=== PATIENT | male | born 1955 | race Caucasian/White ===

== ENCOUNTER 2020-04-23 09:33 | Inpatient (IN) | payer MEDICARE, MEDICAID, SELFPAY ==
[2020-04-23] VITALS (10 sets, daily range): BP systolic 142–170; BP diastolic 72–99; PULSE 63–99; RESP 12–20; TEMP 36.6–37.2; O2SAT 95–100; BMI 42.4
--- NOTE | 2020-04-23 | ECG_ITS ---
Test Reason : FLU LIKE SYMPTOMS Blood Pressure : / mmHG Vent. Rate : 078 BPM Atrial Rate : 078 BPM P-R Int : 178 ms QRS Dur : 094 ms QT Int : 392 ms P-R-T Axes : 037 026 019 degrees QTc Int : 446 ms Normal sinus rhythm Normal ECG No previous ECGs available Referred By: Shanti Mora Electronically Signed By:LARRY BRAN
--- NOTE | 2020-04-23 10:33 | XR_ITS ---
EXAMINATION: XR CHEST CLINICAL INFORMATION: Fluid overload COMPARISON: Previous chest x-ray from November 2010. TECHNIQUE: 2 views of the chest were obtained. FINDINGS: The cardiac silhouette is enlarged. There is pulmonary venous redistribution. The lungs are otherwise clear. There are small bilateral pleural effusions, left greater than right. Findings are suggestive of fluid overload/mild CHF. There are degenerative changes of the spine and curvature of the mid thoracic spine to the right. IMPRESSION: Enlarged cardiac silhouette, pulmonary venous redistribution and small bilateral pleural effusions suggestive of CHF/fluid overload.
--- NOTE | 2020-04-23 10:41 | ED.GENADULT ---
HPI - General Adult General Chief complaint: Recheck/Abnormal Lab/Rx Stated complaint: FLUID BUILDUP Time Seen by Provider: 04/23/20 09:43 Source: patient, old records reviewed and other ( PCP) Mode of arrival: ambulatory History of Present Illness HPI narrative: 64-year-old male with a past medical history of diabetes, CHF sent in by PCP Dr. Tapia for 30 lb weight gain in the past 4-6 weeks, anasarca, worsening LLE edema with weeping wounds refractory to home diuresis. patient had outpatient abdominal CT showing diffuse fluid overload with multiple liver cysts. No ascites. Had recent ECHO that did WNL EF. Patient reports he is unable to move/ bend due to diffuse fluid. States LE wounds soaking through jeans. Also reports mild SOB. denies fever, chills,, chest pain, nausea /vomiting Onset (ago): week(s) Severity: severe Pain Consistency: constant Related Data Allergies Allergy/AdvReac Type Severity Reaction Status Date / Time Penicillins Allergy Unknown UNKWN Unverified 04/04/20 14:36 Review of Systems Review of Systems: patient with history of cerebral palsy. Unable to plain clear history. Most history obtained from patient's PCP Yes all other systems are reviewed and are negative Constitutional: Constitutional: Reports as per HPI, Denies chills and Denies fever(s) Eyes: Eyes: Reports as per HPI Cardiovascular: Cardiovascular: Denies chest pain, Reports edema and Reports dyspnea Respiratory: Respiratory: Denies cough and Reports dyspnea Gastrointestinal: Gastrointestinal: Reports bloating, Denies constipation, Denies diarrhea and Denies nausea Musculoskeletal: Comments: +bilateral LE edema Integumentary/Breasts: Skin/Breast: Reports sores PMFSH Past Medical History Attestation statement: The following information was validated with the patient. Medical History Diabetes 1.5, managed as type 2 Social History Social History Alcohol intake: former Smoking Status: Former smoker Smoked in Last 30 Days: No Use of substances other than those prescribed or required for medical reasons: No Advance Directives: No Advance Directives Information Provided: No Physical Exam Vital Signs and I&O and Narrative: Vital Signs and I&O: Vital Signs Temp 98.2 F 04/23/20 10:31 Pulse 74 04/23/20 12:03 Resp 20 04/23/20 12:03 BP 164/85 H 04/23/20 12:03 Pulse Ox 98 04/23/20 10:31 Intake & Output 04/22/20 04/23/20 04/23/20 18:59 06:59 18:59 Weight 137.9 kg Body Mass Index 42.4 Const: General: no acute distress Chest: Chest palpation & inspection: normal inspection of the chest Resp: Effort & Inspection: normal respiratory effort Auscultation: crackles ( bibasilar) Cardio: Heart sounds: S1 normal heart sound present and S2 normal heart sound present GI: Inspection: Yes Abdominal wall edema and Yes distended Palpation (GI): Firmness to palpation present (GI) and Tenderness to palpation present (GI) (mild ttp in lower abd) Skin: Other: open weeping wounds to bilateral lower extremities with overlying erythema. No fluctuance or induration Extrem: General: No calf tenderness and Yes pedal edema Course Course Course Narrative: CXR IMPRESSION: Enlarged cardiac silhouette, pulmonary venous redistribution and small bilateral pleural effusions suggestive of CHF/fluid overload >> 80IV Lasix ordered IV cefepime ordered for lower extremity wounds --1224-- case discussed with hospitalist for admission due to CHF Medical Decision Making MDM Narrative Medical decision making narrative: 64-year-old male with a past medical history of diabetes, CHF sent in by PCP Dr. Tapia for 30 lb weight gain in the past 4-6 weeks, anasarca, worsening LLE edema with weeping wounds refractory to home diuresis. On exam VSS, NAD, abdomen diffusely distended, LE pitting edema with weeping wounds. Concern for CHF/anasarca and early LE celluultis. Lower concern for SBO/DVT with recent CT. Low concern for ACS. R/o electrolyte abnormalities -04/16/2020 CT abdomen pelvis showing liver cysts, otherwise liver unremarkable. Intrahepatic IVC and portal veins patent however no secondary signs of Budd-Chiari. Small bilateral pleural effusions and diffuse anasarca plan: EKG, labs, CXR, admission Lab Data Result diagrams: 04/23/20 11:24 04/23/20 11:25 Labs: Lab Results 04/23/20 04/23/20 04/23/20 Range/Units 11:24 11:25 11:25 WBC 7.3 (4.8-10.8) X10*3/uL RBC 4.37 L (4.60-5.80) X10*6/uL Hgb 14.2 (14.0-18.0) g/dl Hct 41.4 L (42-52) % MCV 94.7 (80-98) fL MCH 32.5 (27.0-33.0) pg MCHC 34.3 (31.0-36.0) g/dl RDW 12.9 (11.0-16.0) % Plt Count 321 (160-400) X10*3/uL MPV 9.3 L (9.4-12.4) fL Immature Gran % (Auto) 0.4 (0.0-0.4) % Neut % (Auto) 67.7 (45-73) % Lymph % (Auto) 18.6 L (20-40) % [place] % (Auto) 7.4 (2-11) % Eos % (Auto) 5.2 H (0-4) % Baso % (Auto) 0.7 (0-2) % Neut # (Auto) 5.0 (2.0-8.3) X10*3/uL Lymph # (Auto) 1.4 (1.2-4.9) X10*3/uL [place] # (Auto) 0.5 (0.1-1.2) X10*3/uL Eos # (Auto) 0.4 (0.0-0.4) X10*3/uL Baso # (Auto) 0.1 (0.0-0.2) X10*3/uL Abs Immat Gran (auto) 0.03 (0.00-0.03) X10*3/uL Absolute Nucleated RBC 0.000 (0.0-0.012) X10*3/uL Nucleated RBC % (auto) 0.0 (0.0-0.2) /100WBC Sodium 137 (135-145) mmol/L Potassium 4.7 (3.3-5.1) mmol/l Chloride 108 (96-108) mmol/L Carbon Dioxide 23 (22-29) mmol/L Anion Gap 11 L (12-20) BUN 15 (9-16) mg/dL Creatinine 1.30 (0.5-1.4) mg/dL Estim Creat Clear Calc 81.4 Estimated GFR 56 Random Glucose 107 (60-115) mg/dL Lactic Acid (0.5-2.0) mmol/L Calcium 7.4 L (8.4-10.2) mg/dL Magnesium 2.4 (1.6-2.6) mg/dL Total Bilirubin 0.2 (0.0-1.0) mg/dL Direct Bilirubin < 0.2 (0.0-0.5) mg/dL AST 23 (5-37) U/L ALT 12 (0-40) U/L Alkaline Phosphatase 68 (39-117) U/L B-Natriuretic Peptide 42 (<100) pg/mL Total Protein 5.0 L (6.5-8.0) g/dL Albumin 1.9 L (3.5-5.0) g/dL Lipase 26 (8-78) U/L 04/23/20 Range/Units 11:38 WBC (4.8-10.8) X10*3/uL RBC (4.60-5.80) X10*6/uL Hgb (14.0-18.0) g/dl Hct (42-52) % MCV (80-98) fL MCH (27.0-33.0) pg MCHC (31.0-36.0) g/dl RDW (11.0-16.0) % Plt Count (160-400) X10*3/uL MPV (9.4-12.4) fL Immature Gran % (Auto) (0.0-0.4) % Neut % (Auto) (45-73) % Lymph % (Auto) (20-40) % [place] % (Auto) (2-11) % Eos % (Auto) (0-4) % Baso % (Auto) (0-2) % Neut # (Auto) (2.0-8.3) X10*3/uL Lymph # (Auto) (1.2-4.9) X10*3/uL [place] # (Auto) (0.1-1.2) X10*3/uL Eos # (Auto) (0.0-0.4) X10*3/uL Baso # (Auto) (0.0-0.2) X10*3/uL Abs Immat Gran (auto) (0.00-0.03) X10*3/uL Absolute Nucleated RBC (0.0-0.012) X10*3/uL Nucleated RBC % (auto) (0.0-0.2) /100WBC Sodium (135-145) mmol/L Potassium (3.3-5.1) mmol/l Chloride (96-108) mmol/L Carbon Dioxide (22-29) mmol/L Anion Gap (12-20) BUN (9-16) mg/dL Creatinine (0.5-1.4) mg/dL Estim Creat Clear Calc Estimated GFR Random Glucose (60-115) mg/dL Lactic Acid 0.8 (0.5-2.0) mmol/L Calcium (8.4-10.2) mg/dL Magnesium (1.6-2.6) mg/dL Total Bilirubin (0.0-1.0) mg/dL Direct Bilirubin (0.0-0.5) mg/dL AST (5-37) U/L ALT (0-40) U/L Alkaline Phosphatase (39-117) U/L B-Natriuretic Peptide (<100) pg/mL Total Protein (6.5-8.0) g/dL Albumin (3.5-5.0) g/dL Lipase (8-78) U/L
[2020-04-23 11:31] LABS: MANUAL DIFF FLAG NO
[2020-04-23 11:34] LABS: Basophils Absolute Auto 0.1 X10*3/uL (0.0-0.2); Basophils Percent Auto 0.7 % (0-2); Eosinophils Absolute Auto 0.4 X10*3/uL (0.0-0.4); Eosinophils Percent Auto 5.2 % (0-4); Hematocrit 41.4 % (42-52); Hemoglobin 14.2 g/dl (14.0-18.0); Imm Gran Abs Auto 0.03 X10*3/uL (0.00-0.03); Imm Gran Pct Auto 0.4 % (0.0-0.4); Lymphocytes Absolute Auto 1.4 X10*3/uL (1.2-4.9); Lymphocytes Percent Auto 18.6 % (20-40); Mean Corpuscular HGB Conc 34.3 g/dl (31.0-36.0); Mean Corpuscular Hemoglobin 32.5 pg (27.0-33.0); Mean Corpuscular Volume 94.7 fL (80-98); Mean Platelet Volume 9.3 fL (9.4-12.4); Monocytes Absolute Auto 0.5 X10*3/uL (0.1-1.2); Monocytes Percent Auto 7.4 % (2-11); Neutrophils Percent Auto 67.7 % (45-73); Platelet Count 321 X10*3/uL (160-400); Red Blood Count 4.37 X10*6/uL (4.60-5.80); Red Cell Distribution Width 12.9 % (11.0-16.0); White Blood Count 7.3 X10*3/uL (4.8-10.8)
--- NOTE | 2020-04-23 12:04 | PC.NURSE ---
AWAITING LASIX FROM PHARMACY PT EDUCATED ON ONGOING CARE PLAN
[2020-04-23 12:05] LABS: B Type Natriuretic Peptide 42 pg/mL (<100)
[2020-04-23 12:16] LABS: Lactic Acid 0.8 mmol/L (0.5-2.0)
[2020-04-23 12:22] LABS: Alanine Aminotransferase 12 U/L (0-40); Albumin Level 1.9 g/dL (3.5-5.0); Alkaline Phosphatase 68 U/L (39-117); Anion Gap 11 (12-20); Aspartate Amino Transferase 23 U/L (5-37); Bilirubin Direct < 0.2 mg/dL (0.0-0.5); Bilirubin Total 0.2 mg/dL (0.0-1.0); Blood Urea Nitrogen 15 mg/dL (9-16); Calcium 7.4 mg/dL (8.4-10.2); Carbon Dioxide 23 mmol/L (22-29); Chloride 108 mmol/L (96-108); Creatinine Clr Calc Pharmacy 81.4; Estimated Glomerular Filt Rate 56; Glucose Random 107 mg/dL (60-115); Lipase 26 U/L (8-78); Magnesium 2.4 mg/dL (1.6-2.6); Potassium 4.7 mmol/l (3.3-5.1); Sodium 137 mmol/L (135-145)
[2020-04-23] MEDS: Furosemide 100 MG/10 ML VIAL 80 MG IVPUSH (13:00)
--- NOTE | 2020-04-23 13:26 | PC.NURSE ---
PT VOIDED 500ML CLEAR URINE. AFTER BECAME DIAPHORETIC, PALE. FELT WEAK, LIKE PASSING OUT. MD AWARE
[2020-04-23 13:35] LABS: Glucose, Whole Blood 99 mg/dL (60-115)
--- NOTE | 2020-04-23 13:55 | PC.NURSE ---
VOIDED ADDITIONAL 225ML'S. LUNCH PROVIDED FOR PT. AWAITING ADMIT
--- NOTE | 2020-04-23 14:23 | PC.NURSE ---
IV INFILTRATED AWAITING NEW PLACEMENT FOR ANTIOBIOTICS
[2020-04-23] MEDS: cefEPime HCl 2 GM in 0.9 % Sodium Chloride 50 ML IV (14:51)
--- NOTE | 2020-04-23 16:00 | PM.IMHP ---
History of Present Illness Date of Service: 04/23/20 Chief Complaint: Weight gain 64-year-old man presenting to the ER with complaints of increased shortness of breath. Patient lives alone. He went to see his primary care provider today who ended up bringing him to the ER. Apparently patient had gained approximately 20-30 lb over the last month. He is on Lasix at home of like seems to have continued to accumulate fluid. He has some tense edema to both his legs and abdomen. He denied any shortness of breath or dyspnea or chest pain for that matter. He does have some dermatitis to both of his legs likely from all the swelling and seems to be weeping as well. In the ER, his vital signs were stable. He was not noted to be hypoxic at all. BNP was low however this falsely negative due to history of obesity. In the ER, he was given a dose of IV Lasix, cefepime. He will be admitted for further management treatment of acute congestive heart failure. Review of Systems Review of Systems: Denies any recent fever chills or decrease in appetite respiratory denies any shortness of breath coverage production cardiovascular is adjustment of any PND or edema gastrointestinal denies any dysphagia abdominal pain nausea vomiting or diarrhea genitourinary denies any dysuria frequency or hematuria musculoskeletal denies any joint pain or swelling neuropsych denies any weakness or seizures all other systems reviewed are negative [facility] Medical History (Updated 04/23/20 @ 16:14 by Ayanna Galloway NP) CHF (congestive heart failure), NYHA class I Diabetes 1.5, managed as type 2 Diverticulosis Hiatal hernia History of small bowel obstruction Hyperlipidemia Hypertension Hypothyroidism Pertinent family history: Denies cardiac disease Social History Alcohol intake: former Smoking Status: Former smoker Smoked in Last 30 Days: No Use of substances other than those prescribed or required for medical reasons: No Advance Directives: No Advance Directives Information Provided: No Meds Allergies Allergy/AdvReac Type Severity Reaction Status Date / Time Penicillins Allergy Unknown UNKWN Verified 04/23/20 13:49 Physical Exam Vital Signs and Narrative: Vital Signs: Last Vital Signs Temp 98.2 F 04/23/20 10:31 Pulse 86 04/23/20 14:28 Resp 16 04/23/20 14:28 BP 159/76 H 04/23/20 14:28 Pulse Ox 98 04/23/20 14:28 Body Mass Index 42.4 Appearing in no acute distress head is normocephalic atraumatic eyes pupils are PERRLA sclera is anicteric mouth throat mucous membranes are intact and moist neck is supple no lymphadenopathy, no JVD noted lung sounds Diminshed heart regular rate rhythm, clear S1, S2, tense edema to legs and abdomen positive bowel sounds, abdomen firm neuro patient is alert x3, no focal deficits Results Labs Labs: Laboratory Tests 04/23/20 04/23/20 04/23/20 11:24 11:25 11:25 WBC 7.3 RBC 4.37 L Hgb 14.2 Hct 41.4 L MCV 94.7 MCH 32.5 MCHC 34.3 RDW 12.9 Plt Count 321 MPV 9.3 L Immature Gran % (Auto) 0.4 Neut % (Auto) 67.7 Lymph % (Auto) 18.6 L [place] % (Auto) 7.4 Eos % (Auto) 5.2 H Baso % (Auto) 0.7 Neut # (Auto) 5.0 Lymph # (Auto) 1.4 [place] # (Auto) 0.5 Eos # (Auto) 0.4 Baso # (Auto) 0.1 Abs Immat Gran (auto) 0.03 Absolute Nucleated RBC 0.000 Nucleated RBC % (auto) 0.0 Sodium 137 Potassium 4.7 Chloride 108 Carbon Dioxide 23 Anion Gap 11 L BUN 15 Creatinine 1.30 Estim Creat Clear Calc 81.4 Estimated GFR 56 POC Glucose Random Glucose 107 Lactic Acid Calcium 7.4 L Magnesium 2.4 Total Bilirubin 0.2 Direct Bilirubin < 0.2 AST 23 ALT 12 Alkaline Phosphatase 68 B-Natriuretic Peptide 42 Total Protein 5.0 L Albumin 1.9 L Lipase 26 04/23/20 04/23/20 11:38 13:31 WBC RBC Hgb Hct MCV MCH MCHC RDW Plt Count MPV Immature Gran % (Auto) Neut % (Auto) Lymph % (Auto) [place] % (Auto) Eos % (Auto) Baso % (Auto) Neut # (Auto) Lymph # (Auto) [place] # (Auto) Eos # (Auto) Baso # (Auto) Abs Immat Gran (auto) Absolute Nucleated RBC Nucleated RBC % (auto) Sodium Potassium Chloride Carbon Dioxide Anion Gap BUN Creatinine Estim Creat Clear Calc Estimated GFR POC Glucose 99 Random Glucose Lactic Acid 0.8 Calcium Magnesium Total Bilirubin Direct Bilirubin AST ALT Alkaline Phosphatase B-Natriuretic Peptide Total Protein Albumin Lipase Assessment and Plan (1) CHF (congestive heart failure), NYHA class I: Status: Acute (2) Hypothyroidism: Status: Acute (3) Diabetes 1.5, managed as type 2: Status: Acute (4) Hypertension: Status: Acute (5) Hyperlipidemia: Status: Acute 64-year-old man admitted with acute congestive heart failure with tense edema to both of his legs and abdomen. Acute congestive heart failure. Last echocardiogram in February of 2020 with EF of 60-65%. Patient is on oral Lasix at home and reports compliance. For now will use IV Lasix, Cardiology to follow, will monitor on telemetry, monitor daily weights and intake and output. Hypertension. Stable blood pressure. Continue lisinopril. Follow blood pressures closely avoid hypotension. Two Diabetes mellitus. Sliding scale, ADA diet, hold glipizide, Januvia and metformin due to low blood sugars. Hyperlipidemia. Continue statin. Hypothyroidism. Continue levothyroxine DVT prophylaxis with Lovenox. Discussed with Dr. Leach Full code
[2020-04-23 16:02] LABS: Glucose Urine UA 100 MG/DL (NEG); Leukocyte Esterase Urine NEG (NEG); Nitrite Urine NEG (NEG); PH 6.5 (5.0-8.0); Urine Blood 2+ (NEG); Urine Ketones NEG (NEG); Urine Protein 3+ MG/DL (NEG-TRACE)
[2020-04-23 16:04] LABS: Appearance Urine CLEAR; Color Urine YELLOW
--- NOTE | 2020-04-23 16:13 | PC.NURSE ---
PT AMBULATES WITH STEADY GAIT TO THE BATHROOM WITHOUT DIFFICULTY NO SOB NO VAGAL RESPONSE AWAITING ADMISSION TRANFER
[2020-04-23 16:18] LABS: WBC Urine 0 /HPF (0-4)
[2020-04-23 16:19] LABS: Bacteria Urine 1+ /LPF
--- NOTE | 2020-04-23 18:55 | PM.EVENT ---
Event Note Event Note: Admission note patient was seen and evaluated with Ayanna Galloway NP. I agree with her note, assessment and plan with the following. In summary, a 64 years old male with PMH of CHF, diabetes, HTN and hypothyroidism among others who presented to the hospitalWith shortness of breath swelling in his legs. The patient is supposed to be on Lasix 20 mg daily. Previous echo did not show any dysfunction. BNP normal at this presentation. CXR concerning for fluid overload. CHF exacerbation to start IV Lasix To get cardiology evaluation the morning Monitor intake and output Rest of evaluations per [employer] note.
--- NOTE | 2020-04-23 18:56 | PC.NURSE ---
DINNER TRAY GIVEN
[2020-04-24] VITALS (10 sets, daily range): BP systolic 138–170; BP diastolic 56–99; PULSE 71–82; RESP 17–20; TEMP 36.1–37.1; O2SAT 95–98; BMI 42.4
[2020-04-24 06:37] LABS: MANUAL DIFF FLAG NO
[2020-04-24 06:46] LABS: Basophils Absolute Auto 0.1 X10*3/uL (0.0-0.2); Basophils Percent Auto 0.9 % (0-2); Eosinophils Absolute Auto 0.4 X10*3/uL (0.0-0.4); Eosinophils Percent Auto 7.6 % (0-4); Hematocrit 37.7 % (42-52); Hemoglobin 12.8 g/dl (14.0-18.0); Imm Gran Abs Auto 0.03 X10*3/uL (0.00-0.03); Imm Gran Pct Auto 0.6 % (0.0-0.4); Lymphocytes Absolute Auto 1.3 X10*3/uL (1.2-4.9); Lymphocytes Percent Auto 24.1 % (20-40); Mean Corpuscular Hemoglobin 32.2 pg (27.0-33.0); Mean Platelet Volume 9.6 fL (9.4-12.4); Monocytes Absolute Auto 0.6 X10*3/uL (0.1-1.2); Monocytes Percent Auto 10.6 % (2-11); Neutrophils Percent Auto 56.2 % (45-73); Platelet Count 316 X10*3/uL (160-400); Red Blood Count 3.97 X10*6/uL (4.60-5.80); Red Cell Distribution Width 12.9 % (11.0-16.0); White Blood Count 5.4 X10*3/uL (4.8-10.8)
[2020-04-24 07:20] LABS: Alanine Aminotransferase 9 U/L (0-40); Albumin Level 1.7 g/dL (3.5-5.0); Alkaline Phosphatase 58 U/L (39-117); Anion Gap 10 (12-20); Aspartate Amino Transferase 14 U/L (5-37); Bilirubin Direct < 0.2 mg/dL (0.0-0.5); Bilirubin Total 0.2 mg/dL (0.0-1.0); Blood Urea Nitrogen 17 mg/dL (9-16); Calcium 7.3 mg/dL (8.4-10.2); Carbon Dioxide 22 mmol/L (22-29); Chloride 110 mmol/L (96-108); Creatinine Clr Calc Pharmacy 83.3; Estimated Glomerular Filt Rate 57; Glucose Random 121 mg/dL (60-115); Potassium 4.1 mmol/l (3.3-5.1); Sodium 138 mmol/L (135-145); Total Protein 4.1 g/dL (6.5-8.0)
[2020-04-24 07:21] LABS: B Type Natriuretic Peptide 43 pg/mL (<100)
[2020-04-24] MEDS: Furosemide 40 MG/4 ML VIAL IVPUSH ×2 (08:50→21:11)
[2020-04-24] MEDS: Levothyroxine Sodium 50 MCG TABLET PO (09:05)
[2020-04-24] MEDS: lisinopriL 2.5 MG TABLET PO (09:05)
[2020-04-24 09:40] LABS: Thyroid Stimulating Hormone 4.14 mIU/mL (0.32-4.0)
--- NOTE | 2020-04-24 11:08 | MHC.CM.PN ---
CM met with patient at the bedside who reports he is independent and lives alone. Patient does not have a HCP and declines filling one out today. Discussed discharge plan, home no services. patient will need assistance with transportation. CM will continue to follow patient for discharge needs.
[2020-04-24 11:37] LABS: Glucose, Whole Blood 147 mg/dL (60-115)
--- NOTE | 2020-04-24 11:50 | PM.CNCAR ---
History of Present Illness History of Present Illness Date of Consult: April 24, 2020 Requesting physician: Ileana Leach Consult reason: congestive heart failure Chief complaint: FLUID BUILDUP Narrative: This is a cardiology consultation regarding shortness of breath and leg swelling. Patient denies any history of coronary disease, myocardial infarction or any other cardiac issues. He has a history of diabetes mellitus, hypertension, dyslipidemia. He states that he has gained about 20-30 lb over the last few weeks. He has on some Lasix at home. he denies any significant shortness of breath or anginal-type chest pains or any other cardiac symptoms. No palpitations, dizzy spells or syncopal episode. He was admitted to the hospital for further management of suspected congestive heart failure. Review of Systems Review of Systems: Cardiac positive for leg swelling. No angina or shortness of breath or palpitations or dizzy spells or syncopal episodes. Remainder of the 10 system review is negative. [facility] Past Medical History Medical History CHF (congestive heart failure), NYHA class I Diabetes 1.5, managed as type 2 Diverticulosis Hiatal hernia History of small bowel obstruction Hyperlipidemia Hypertension Hypothyroidism Family History Pertinent family history: No significant family history relevant to the current admission. Social History Social History Household Members: None Housing: Apartment Do you presently have visiting nurse or other home services: No Alcohol intake: former Smoking Status: Former smoker Smoked in Last 30 Days: No Use of substances other than those prescribed or required for medical reasons: No Currently Displaying Signs/Symptoms of Drug Intoxication Withdrawal: No Have you been hit, kicked, punched, or otherwise hurt by someone within the past year? If so, by whom?: No Do you feel safe in your current relationship?: No Is there a partner from a previous relationship who is making you feel unsafe now?: No Are you made to feel afraid or neglected: No Advance Directives: No Advance Directives Information Provided: No Do you have thoughts of harming others: None Do you have a plan to hurt others: No Plan Recently lost weight without trying: No service: No Current occupational status: disabled Meds Allergies Allergy/AdvReac Type Severity Reaction Status Date / Time Penicillins Allergy Unknown UNKWN Verified 04/23/20 13:49 Home Medications Medication Instructions Recorded Confirmed Type furosemide 20 mg PO DAILY 04/23/20 04/23/20 History glipizide 10 mg PO DAILY 04/23/20 04/23/20 History levothyroxine 50 mcg PO DAILY 04/23/20 04/23/20 History lisinopril 2.5 mg PO DAILY 04/23/20 04/23/20 History metformin 1,000 mg PO BID 04/23/20 04/23/20 History simvastatin 40 mg PO BEDTIME 04/23/20 04/23/20 History sitagliptin [Januvia] 100 mg PO DAILY 04/23/20 04/23/20 History Physical Exam Vital Signs and I&O and Narrative: Vital Signs and I&O: Vital Signs Temp 97 F 04/24/20 11:04 Pulse 79 04/24/20 11:04 Resp 20 04/24/20 11:04 BP 170/90 H 04/24/20 11:04 Pulse Ox 98 04/24/20 11:04 Comfortable, no distress No pallor, icterus or cyanosis HEENT -unremarkable JVD- normal Cardiac- normal heart sounds, no murmurs, gallops or rubs, normal PMI Respiratory-normal breath sounds bilaterally, no crackles, no wheeze Abdomen- soft, nontender Neuro- alert and oriented Lower extremities- 2+ edema, warm well perfused Results Labs and Meds Result diagrams: 04/24/20 05:29 04/24/20 05:29 Lab results: Laboratory Results - last 24 hr 04/23/20 04/23/20 04/23/20 11:25 11:25 11:38 WBC RBC Hgb Hct MCV MCH MCHC RDW Plt Count MPV Immature Gran % (Auto) Neut % (Auto) Lymph % (Auto) [place] % (Auto) Eos % (Auto) Baso % (Auto) Neut # (Auto) Lymph # (Auto) [place] # (Auto) Eos # (Auto) Baso # (Auto) Abs Immat Gran (auto) Absolute Nucleated RBC Nucleated RBC % (auto) Sodium 137 Potassium 4.7 Chloride 108 Carbon Dioxide 23 Anion Gap 11 L BUN 15 Creatinine 1.30 Estim Creat Clear Calc 81.4 Estimated GFR 56 POC Glucose Random Glucose 107 Lactic Acid 0.8 Calcium 7.4 L Magnesium 2.4 Total Bilirubin 0.2 Direct Bilirubin < 0.2 AST 23 ALT 12 Alkaline Phosphatase 68 B-Natriuretic Peptide 42 Total Protein 5.0 L Albumin 1.9 L Lipase 26 TSH Urine Color Urine Appearance Urine pH Ur Specific [place] Urine Protein Urine Glucose (UA) Urine Ketones Urine Blood Urine Nitrite Ur Leukocyte Esterase Urine RBC Urine WBC Ur Squamous Epith Cells Urine Bacteria 04/23/20 04/23/20 04/24/20 13:31 15:56 05:29 WBC 5.4 RBC 3.97 L Hgb 12.8 L Hct 37.7 L MCV 95.0 MCH 32.2 MCHC 34.0 RDW 12.9 Plt Count 316 MPV 9.6 Immature Gran % (Auto) 0.6 H Neut % (Auto) 56.2 Lymph % (Auto) 24.1 [place] % (Auto) 10.6 Eos % (Auto) 7.6 H Baso % (Auto) 0.9 Neut # (Auto) 3.0 Lymph # (Auto) 1.3 [place] # (Auto) 0.6 Eos # (Auto) 0.4 Baso # (Auto) 0.1 Abs Immat Gran (auto) 0.03 Absolute Nucleated RBC 0.000 Nucleated RBC % (auto) 0.0 Sodium Potassium Chloride Carbon Dioxide Anion Gap BUN Creatinine Estim Creat Clear Calc Estimated GFR POC Glucose 99 Random Glucose Lactic Acid Calcium Magnesium Total Bilirubin Direct Bilirubin AST ALT Alkaline Phosphatase B-Natriuretic Peptide Total Protein Albumin Lipase TSH Urine Color YELLOW Urine Appearance CLEAR Urine pH 6.5 Ur Specific [place] 1.020 Urine Protein 3+ H Urine Glucose (UA) 100 H Urine Ketones NEG Urine Blood 2+ H Urine Nitrite NEG Ur Leukocyte Esterase NEG Urine RBC 1-4 Urine WBC 0 Ur Squamous Epith Cells NONE Urine Bacteria 1+ 04/24/20 04/24/20 04/24/20 05:29 05:57 11:31 WBC RBC Hgb Hct MCV MCH MCHC RDW Plt Count MPV Immature Gran % (Auto) Neut % (Auto) Lymph % (Auto) [place] % (Auto) Eos % (Auto) Baso % (Auto) Neut # (Auto) Lymph # (Auto) [place] # (Auto) Eos # (Auto) Baso # (Auto) Abs Immat Gran (auto) Absolute Nucleated RBC Nucleated RBC % (auto) Sodium 138 Potassium 4.1 Chloride 110 H Carbon Dioxide 22 Anion Gap 10 L BUN 17 H Creatinine 1.27 Estim Creat Clear Calc 83.3 Estimated GFR 57 POC Glucose 147 H Random Glucose 121 H Lactic Acid Calcium 7.3 L Magnesium Total Bilirubin 0.2 Direct Bilirubin < 0.2 AST 14 ALT 9 Alkaline Phosphatase 58 B-Natriuretic Peptide 43 Total Protein 4.1 L Albumin 1.7 L Lipase TSH 4.14 H Urine Color Urine Appearance Urine pH Ur Specific [place] Urine Protein Urine Glucose (UA) Urine Ketones Urine Blood Urine Nitrite Ur Leukocyte Esterase Urine RBC Urine WBC Ur Squamous Epith Cells Urine Bacteria Cardiology Testing Echo: report reviewed EKG Interpretation EKG Comments: EKG reviewed and shows normal sinus rhythm without any significant abnormalities like prior infarction or current ischemia. Assessment and Plan (1) Leg edema: Status: Acute (2) Essential hypertension: Status: Acute (3) Diabetes 1.5, managed as type 2: Status: Acute in the last echocardiogram from February, LVEF was normal and there were no significant valvular pathologies to explain this degree of fluid overload. RV function was also thought to be normal and there was no pulmonary hypertension. Cardiac BNPs within normal limits. However there is evidence of pulmonary congestion on chest x-ray. For now we can gently diurese him. He does have proteinuria as well as evidence of low albumin and I am not sure how much that contributes to the edema. We can repeat limited echocardiogram to reassess for any new findings. Otherwise, based on his risk factors, he will need a stress test at some point.
--- NOTE | 2020-04-24 14:37 | HO.PM.IMPN ---
Subjective Subjective Date of Service: 04/24/20 Interval History: Seen and evaluated this morning Feels comfortable, denies any fever, chills, shortness of breath Edema has improved significantly since last night Concern about bilateral lower extremity wounds No reported other overnight events Review of Systems Review of Systems: Yes all other systems are reviewed and are negative Cardiovascular Cardiovascular: Reports leg edema and Reports dyspnea on exertion Respiratory Respiratory: Reports no additional respiratory complaints and Reports dyspnea on exertion Gastrointestinal Gastrointestinal: Reports no additional gastrointestinal complaints Physical Exam Vital Signs and I&O and Narrative: Vital Signs and I&O: Vital Signs Temp 97 F 04/24/20 11:04 Pulse 79 04/24/20 11:04 Resp 20 04/24/20 11:04 BP 170/90 H 04/24/20 11:04 Pulse Ox 98 04/24/20 11:04 Intake & Output 04/23/20 04/24/20 04/24/20 18:59 06:59 18:59 Intake Total 50 / 390 340 / 390 1040 / 1040 Output Total 700 / 1050 350 / 1050 1000 / 1000 Balance -650 / -660 -10 / -660 40 / 40 Urine Output (Aver age ml/kg/hr) 0.42 0.21 0.60 Weight 137.9 kg Intake: Intake, Oral Tato unt 340 / 340 720 / 720 Intake, Oral Sup plement Amount 320 / 320 Intake, IV Amoun t 50 / 50 cefEPime HCl 2 gm In 0.9 % 50 / 50 Sodium Chlorid e 50 ml @ 100 mls /hr IV ONCE ON E Rx#:[id number] Output: Output, Urine Am ount 700 / 1050 350 / 1050 1000 / 1000 Other: Breakfast % Eate n 100% Lunch % Eaten 100% Urine Bathroom Body Mass Index 42.4 Const: General: cooperative and comfortable Orientation/consciousness: oriented to person and oriented to place Neck: Neck: Yes normal visual inspection and Yes full ROM Resp: Other: bilateral air entry Fair, a self crackles bilaterally. Effort & Inspection: normal respiratory effort Cardio: Jugular venous distension: no JVD Heart sounds: S1 normal heart sound present and S2 normal heart sound present GI: Inspection: Yes normal to inspection Percussion: Yes normal to percussion Skin: Other: Bilateral lower extremity below ankle chronic low wounds. No drainage noted. Neuro: General: oriented to person and oriented to place Extrem: General: Yes normal to inspection and Yes full ROM Objective Data Current Medications Generic Name Dose Route Start Last Admin Trade Name Renuka PRN Reason Stop Dose Admin Furosemide 40 mg 04/24/20 09:00 04/24/20 08:50 Furosemide 40 Mg/4 Ml Vial IVPUSH 40 mg BID@0900,1800 [facility] Administration Protocol Insulin Human Lispro 0 unit 04/24/20 11:30 04/24/20 12:18 Insulin Lispro 100 Unit/Ml 3 Ml Vial SUBCUT Not Given QIDACHS [facility] Protocol Levothyroxine Sodium 50 mcg 04/24/20 09:00 04/24/20 09:05 Levothyroxine Sodium 50 Mcg Tablet PO 50 mcg DAILY [facility] Administration Lisinopril 2.5 mg 04/24/20 09:00 04/24/20 09:05 Lisinopril 2.5 Mg Tablet PO 2.5 mg DAILY [facility] Administration Protocol Pharmacy Consult 1 each 04/23/20 19:06 Consult Rx Perform Med Rec MISCELLANE ONCE PRN Consult order Sitagliptin Phosphate 100 mg 04/24/20 09:00 04/24/20 09:06 Sitagliptin Phosphate 100 Mg Tablet PO Not Given DAILY [facility] Labs CBC & Chem 7: 04/24/20 05:29 04/24/20 05:29 Labs: Laboratory Results - last 24 hr 04/23/20 04/24/20 04/24/20 15:56 05:29 05:29 MCV 95.0 MCH 32.2 MCHC 34.0 RDW 12.9 Plt Count 316 MPV 9.6 Immature Gran % (Auto) 0.6 H Neut % (Auto) 56.2 Lymph % (Auto) 24.1 [place] % (Auto) 10.6 Eos % (Auto) 7.6 H Baso % (Auto) 0.9 Neut # (Auto) 3.0 Lymph # (Auto) 1.3 [place] # (Auto) 0.6 Eos # (Auto) 0.4 Baso # (Auto) 0.1 Abs Immat Gran (auto) 0.03 Absolute Nucleated RBC 0.000 Nucleated RBC % (auto) 0.0 Anion Gap 10 L Estim Creat Clear Calc 83.3 Estimated GFR 57 POC Glucose Random Glucose 121 H Calcium 7.3 L Total Bilirubin 0.2 Direct Bilirubin < 0.2 AST 14 ALT 9 Alkaline Phosphatase 58 B-Natriuretic Peptide Total Protein 4.1 L Albumin 1.7 L TSH 4.14 H Urine Color YELLOW Urine Appearance CLEAR Urine pH 6.5 Ur Specific [place] 1.020 Urine Protein 3+ H Urine Glucose (UA) 100 H Urine Ketones NEG Urine Blood 2+ H Urine Nitrite NEG Ur Leukocyte Esterase NEG Urine RBC 1-4 Urine WBC 0 Ur Squamous Epith Cells NONE Urine Bacteria 1+ 04/24/20 04/24/20 05:57 11:31 MCV MCH MCHC RDW Plt Count MPV Immature Gran % (Auto) Neut % (Auto) Lymph % (Auto) [place] % (Auto) Eos % (Auto) Baso % (Auto) Neut # (Auto) Lymph # (Auto) [place] # (Auto) Eos # (Auto) Baso # (Auto) Abs Immat Gran (auto) Absolute Nucleated RBC Nucleated RBC % (auto) Anion Gap Estim Creat Clear Calc Estimated GFR POC Glucose 147 H Random Glucose Calcium Total Bilirubin Direct Bilirubin AST ALT Alkaline Phosphatase B-Natriuretic Peptide 43 Total Protein Albumin TSH Urine Color Urine Appearance Urine pH Ur Specific [place] Urine Protein Urine Glucose (UA) Urine Ketones Urine Blood Urine Nitrite Ur Leukocyte Esterase Urine RBC Urine WBC Ur Squamous Epith Cells Urine Bacteria Microbiology Microbiology Results: Microbiology 04/23/20 11:32 Blood - Venous Blood Culture - Preliminary No growth after 24 hours. 04/23/20 11:25 Blood - Venous Blood Culture - Preliminary No growth after 24 hours.
[2020-04-24 16:28] LABS: Glucose, Whole Blood 104 mg/dL (60-115)
[2020-04-24] MEDS: lisinopriL 20 MG TABLET PO (18:23)
[2020-04-24 20:25] LABS: Creatinine Urine 74.09 mg/dL
[2020-04-24 20:58] LABS: Glucose, Whole Blood 128 mg/dL (60-115)
[2020-04-25] VITALS (7 sets, daily range): BP systolic 128–183; BP diastolic 67–83; PULSE 70–83; RESP 18–20; TEMP 36.1–36.8; O2SAT 95–99
--- NOTE | 2020-04-25 | US_ITS ---
EXAMINATION: US VENOUS BILATERAL LOWER EXTREMITIES CLINICAL INFORMATION: Bilateral lower extremity edema and hypercoagulable state COMPARISON: None. TECHNIQUE: Doppler spectral analysis and color flow Doppler imaging was performed of both the left and the right lower extremities. Compression and augmentation maneuvers were performed. FINDINGS: The left common femoral, femoral, popliteal and visualized calf veins were normal. They demonstrate normal compressibility and color fill-in. The right common femoral, femoral, popliteal and visualized calf veins were normal. They demonstrate normal compressibility and color fill-in. Both calves are swollen. Prominent 5.3 x 1.2 x 2.7 cm lymph node in the right groin with a 4.4 x 0.9 x 2.2 cm lymph node in the left groin. IMPRESSION: No evidence for left or right lower extremity deep vein thrombosis.
[2020-04-25 06:31] LABS: MANUAL DIFF FLAG NO
[2020-04-25 06:48] LABS: Basophils Absolute Auto 0.1 X10*3/uL (0.0-0.2); Basophils Percent Auto 1.1 % (0-2); Eosinophils Absolute Auto 0.5 X10*3/uL (0.0-0.4); Eosinophils Percent Auto 8.2 % (0-4); Hematocrit 37.8 % (42-52); Hemoglobin 12.7 g/dl (14.0-18.0); Imm Gran Abs Auto 0.01 X10*3/uL (0.00-0.03); Imm Gran Pct Auto 0.2 % (0.0-0.4); Lymphocytes Absolute Auto 1.8 X10*3/uL (1.2-4.9); Mean Corpuscular HGB Conc 33.6 g/dl (31.0-36.0); Mean Corpuscular Hemoglobin 32.2 pg (27.0-33.0); Mean Corpuscular Volume 95.7 fL (80-98); Mean Platelet Volume 9.5 fL (9.4-12.4); Monocytes Absolute Auto 0.5 X10*3/uL (0.1-1.2); Monocytes Percent Auto 9.8 % (2-11); Neutrophils Absolute Auto 2.7 X10*3/uL (2.0-8.3); Neutrophils Percent Auto 48.7 % (45-73); Platelet Count 304 X10*3/uL (160-400); Red Blood Count 3.95 X10*6/uL (4.60-5.80); Red Cell Distribution Width 13.1 % (11.0-16.0); White Blood Count 5.5 X10*3/uL (4.8-10.8)
[2020-04-25 07:04] LABS: Anion Gap 9 (12-20); Blood Urea Nitrogen 15 mg/dL (9-16); Calcium 7.3 mg/dL (8.4-10.2); Carbon Dioxide 25 mmol/L (22-29); Chloride 108 mmol/L (96-108); Estimated Glomerular Filt Rate 58; Glucose Random 109 mg/dL (60-115); Potassium 4.1 mmol/l (3.3-5.1); Sodium 138 mmol/L (135-145)
[2020-04-25 07:39] LABS: Glucose, Whole Blood 107 mg/dL (60-115)
[2020-04-25] MEDS: Furosemide 40 MG/4 ML VIAL IVPUSH ×2 (07:59→17:05)
[2020-04-25] MEDS: lisinopriL 20 MG TABLET PO (08:00)
[2020-04-25] MEDS: Levothyroxine Sodium 50 MCG TABLET PO (08:00)
[2020-04-25] MEDS: SITagliptin Phosphate 100 MG TABLET PO (08:05)
--- NOTE | 2020-04-25 08:46 | P.CONGS_ITS ---
History of Present Illness Consult details Consult date: 04/25/20 Narrative: pt complaining of shortness of breath and swelling and admitted to hospital where is dx and treated for CHF and fluid overload. at the time pt noted to have legs with edema and weeping fluid. wound consult requested by hospitalist team. see med team note for further details Review of Systems Constitutional: Constitutional: Reports as per HPI Cardiovascular: Cardiovascular: Reports as per HPI Respiratory: Respiratory: Reports as per HPI Gastrointestinal: Gastrointestinal: Reports as per HPI Musculoskeletal: Musculoskeletal: Reports as per HPI Neurologic: Reports as per HPI Hematologic/Lymphatic: Hematologic/Lymphatic: Reports as per HPI PMFSH Past Medical History Medical History CHF (congestive heart failure), NYHA class I Diabetes 1.5, managed as type 2 Diverticulosis Hiatal hernia History of small bowel obstruction Hyperlipidemia Hypertension Hypothyroidism Family History Pertinent family history: No significant family history relevant to the current admission. Social History Social History Household Members: None Housing: Apartment Alcohol intake: former Smoking Status: Former smoker Advance Directives: Yes Advance Directives on File: Yes Advance Directives Date on File: 05/01/20 service: No Current occupational status: disabled Meds Allergies Allergy/AdvReac Type Severity Reaction Status Date / Time Penicillins Allergy Unknown UNKWN Verified 04/23/20 13:49 Home Medications Medication Instructions Recorded Confirmed Type Januvia 100 mg PO DAILY 04/23/20 04/23/20 History glipizide 10 mg PO DAILY 04/23/20 04/23/20 History levothyroxine 50 mcg PO DAILY 04/23/20 04/23/20 History metformin 1,000 mg PO BID 04/23/20 04/23/20 History simvastatin 40 mg PO BEDTIME 04/23/20 04/23/20 History Physical Exam Vital Signs: Vital Signs: Body Mass Index 42.4 Const: General: cooperative, comfortable and no acute distress Orientation/consciousness: oriented to person and oriented to place Skin: Other: Bilateral lower extremity swelling with 2+ pitting edema, skin shiny and tense, right anterior skin changes conistent with previous wound area and seeping soft tissue, currently no draining wounds. Neuro: General: oriented to person and oriented to place Extrem: General: Yes normal to inspection, Yes full ROM, No calf tenderness and Yes pedal edema Results Labs Result diagrams: 04/25/20 05:56 04/26/20 08:04 Labs: Urine 04/23/20 Range/Units 15:56 Urine Color YELLOW Urine Appearance CLEAR Urine pH 6.5 (5.0-8.0) Ur Specific [place] 1.020 (1.005-1.025) Urine Protein 3+ H (NEG-TRACE) MG/DL Urine Glucose (UA) 100 H (NEG) MG/DL All other labs normal. Assessment and Plan (1) Uncontrolled hypertension: Status: Resolved (2) Nephrotic syndrome: Status: Acute (3) Essential hypertension: Status: Resolved (4) Leg edema: Status: Resolved (5) Hyperlipidemia: Status: Resolved (6) CHF (congestive heart failure), NYHA class I: Status: Resolved (7) Hypothyroidism: Status: Resolved (8) Hypertension: Status: Resolved (9) Diabetes 1.5, managed as type 2: Status: Resolved Wound Care Consult - leg wounds A 64-year-old man admitted with acute congestive heart failure with tense edema to both of his legs and abdomen. wounds arre secondary to volume overload and tissue edema - plan diuresis and compression stockings. moisturizer to lower leg skin and feet at this point tubigrips to decrease edema and then get him into prescription bilateral socks/stockings can fu in wound care if open wounds present as needed pt and hospitalist understand and agree with the plan Addended note --05/08/20
[2020-04-25] MEDS: amLODIPine Besylate 5 MG TABLET PO (09:50)
--- NOTE | 2020-04-25 10:00 | CA_ITS ---
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 The visually estimated ejection fraction is between 55-60%. - Normal right ventricular cavity size and systolic function. - There is mild aortic valve stenosis. - The pulmonary artery systolic pressure is normal. Findings Procedure Information Contrast agent, definity, is being given per protocol without apparent complications. Left Ventricle Normal left ventricular cavity size. There is mildly increased left ventricular wall thickness. The left ventricular systolic function is normal. The visually estimated ejection fraction is between 55-60%. The calculated ejection fraction is 61% by biplane method. There is no evidence of regional wall motion abnormalities. Right Ventricle Normal right ventricular cavity size and systolic function. Atria The left atrium is normal in size. The right atrium is normal in size. Aortic Valve There is moderate calcification of the aortic valve. There is mild aortic valve stenosis. The peak aortic velocity is 2.71 m/s with a calculated peak gradient of 29 mmHg. The mean gradient is 15 mmHg. The aortic valve area is 1.45 cm2. There is no aortic valve regurgitation. Mitral Valve The mitral valve appears normal. There is trace mitral valve regurgitation. There is no mitral valve stenosis. Pulmonic Valve The pulmonic valve was not well visualized. There is trace pulmonic valve regurgitation. Tricuspid Valve Normal tricuspid valve structure. There is trace tricuspid valve regurgitation. The pulmonary artery systolic pressure is normal. Great Vessels The aortic annulus, sinuses of valsalva, and asc aorta are normal in size. Venous The inferior vena cava is normal in size and collapses greater than 50% with inspiration. Pericardium/Pleural There is no evidence of pericardial effusion. Prior Study Comparison No significant change compared to prior study dated: 03/12/2020. Measurements 2D Linear Measurements RVIDd: 3.29 RVIDd Index: 1.30 IVSd: 1.49 0.6-0.9/0.6-1.0 cm LVIDd: 5.45 3.9-5.3/4.2-5.9 cm LVIDd Index: 2.15 2.4-3.2/2.2-3.1 cm/m2 LVIDs: 3.68 2.0-3.6 cm LVPWd: 1.20 0.7-1.1 cm Ao Root: 3.90 2.1-3.5 cm LA Diam: 4.90 2.7-3.8/3.0-4.0 cm LAIDs Index: 1.93 1.5-2.3 cm/m2 LV Mass: 392.57 67-162/88-224 g LV Mass Index: 154.56 43-95/49-115 g/m2 LVOT Diam: 2.20 3.0+(-)1.3 cm 2D Systolic Function EF 4C: 57.40 >55% EF 2C: 64.40 >55% EF BiP: 61.00 >55% Mitral Valve MV Pk E: 0.70 MV PK A: 0.82 MV Decel Time: 197.00 E/A: 0.90 E'Lateral: 10.30 E'Medial: 6.38 E/E' Med: 10.90 E/E' Lat: 6.80 MR Alias Ghulam: 0.37 MR RAD: 0.50 Aortic Valve AoV Pk Ghulam: 2.71 AoV Mn Ghulam: 1.75 AoV VTI: 0.52 AoV Pk Grad: 29.00 Aov Mn Grad: 15.00 EDDI Cont.VTI: 1.45 LVOT LVOT Pk Ghulam: 0.99 LVOT Mn Ghulam: 0.77 LVOT VTI: 0.20 LVOT Pk Grad: 4.00 LVOT Mn Grad: 3.00 LVOT Diam: 2.20 LVOT Area: 3.80 Diastolic Function MV Pk E: 0.70 MV Pk A: 0.82 E/A: 0.90 E'Medial: 6.38 E/E' Med: 10.90 E' Laterial: 10.30 E/E' Lat: 6.80 Tricuspid Valve RA Press: 8.00 Great Vessels Aorta Ao Root-2D: 3.90 2.0-3.7 cm Ao Asc: 3.60 2.1-3.4 cm Updated in Other Vendor System with Status of Final Parveen Hooker MD electronically signed on 04/25/2020 3:38:58 PM with status of Final
--- NOTE | 2020-04-25 10:10 | P.PNCA_ITS ---
Subjective Subjective Interval history: Seen and examined. He states that he feels better. Less leg swelling. Review of Systems Review of Systems Cardiac- +ve of leg swelling; no angina, SOB, palpitations, leg swelling or syncope. Remainder of 10 system review -ve. Physical Exam Vital Signs and I&O: Selected Entries 04/25/20 07:23 Temperature 97.6 F Pulse Rate 73 Respiratory Rate 20 Blood Pressure 183/80 H Pulse Oximetry 95 Oxygen Delivery Method Room Air Comfortable, no distress No pallor, icterus or cyanosis HEENT -unremarkable JVD- normal Cardiac- normal heart sounds, no murmurs, gallops or rubs, normal PMI Respiratory-normal breath sounds bilaterally, no crackles, no wheeze Abdomen- soft, nontender Neuro- alert and oriented Lower extremities- 2+ edema, warm well perfused Progress Note: A&P Assessment and plan (1) Leg edema: Status: Acute (2) Essential hypertension: Status: Acute (3) Diabetes 1.5, managed as type 2: Status: Acute Assessment and Plan: in the last echocardiogram from February, LVEF was normal and there were no significant valvular pathologies to explain this degree of fluid overload. RV function was also thought to be normal and there was no pulmonary hypertension. Cardiac BNPs within normal limits. However there is evidence of pulmonary congestion on chest x-ray. For now we can gently diurese him. He does have proteinuria as well as evidence of low albumin and I am not sure how much that contributes to the edema. We can repeat limited echocardiogram to reassess for any new findings (if not done as inpt, can do as outpt). Otherwise, based on his risk factors, he will need a stress test at some point. Also needs nephro input. Fall Risk Details Current Medications: Current Medications Generic Name Dose Route Start Last Admin Trade Name Freq PRN Reason Stop Dose Admin Amlodipine Besylate 5 mg 04/25/20 09:00 04/25/20 09:50 Amlodipine Besylate 5 Mg Tablet PO 5 mg DAILY [facility] Administration Protocol Furosemide 40 mg 04/24/20 09:00 04/25/20 07:59 Furosemide 40 Mg/4 Ml Vial IVPUSH 40 mg BID@0900,1800 [facility] Administration Protocol Insulin Human Lispro 0 unit 04/24/20 11:30 04/25/20 08:00 Insulin Lispro 100 Unit/Ml 3 Ml Vial SUBCUT Not Given QIDACHS [facility] Protocol Levothyroxine Sodium 50 mcg 04/24/20 09:00 04/25/20 08:00 Levothyroxine Sodium 50 Mcg Tablet PO 50 mcg DAILY [facility] Administration Lisinopril 20 mg 04/24/20 15:00 04/25/20 08:00 Lisinopril 20 Mg Tablet PO 20 mg DAILY [facility] Administration Protocol Pharmacy Consult 1 each 04/23/20 19:06 Consult Rx Perform Med Rec MISCELLANE ONCE PRN Consult order Sitagliptin Phosphate 100 mg 04/24/20 09:00 04/25/20 08:05 Sitagliptin Phosphate 100 Mg Tablet PO 100 mg DAILY [facility] Administration Time Spent With Patient Time: Total time spent is greater than 50% in coordination of care (as documented) at patient's floor/unit and/or counseling patient: Time with patient: 15 - 24 minutes
[2020-04-25 12:40] LABS: Glucose, Whole Blood 119 mg/dL (60-115)
[2020-04-25] MEDS: Enoxaparin Sodium 40 MG/0.4 ML SYRINGE SUBCUT (14:09)
--- NOTE | 2020-04-25 14:31 | HO.PM.IMPN ---
Subjective Subjective Date of Service: 04/25/20 Interval History: the patient was seen and evaluated this morning Laying in bed, feels comfortable Denies any fever, chills or shortness of breath he made significant amount of urine overnight. Still has significantly swollen legs No reported other overnight events. Review of Systems Review of Systems: Yes all other systems are reviewed and are negative Constitutional Constitutional: Reports no additional constitutional complaints Cardiovascular Cardiovascular: Reports no additional cardiovascular complaints and Reports leg edema Respiratory Respiratory: Reports no additional respiratory complaints Physical Exam Vital Signs and I&O and Narrative: Vital Signs and I&O: Vital Signs Temp 97.0 F 04/25/20 11:06 Pulse 71 04/25/20 11:06 Resp 20 04/25/20 11:06 BP 157/79 H 04/25/20 11:06 Pulse Ox 97 04/25/20 11:06 Intake & Output 04/24/20 04/25/20 04/25/20 18:59 06:59 18:59 Intake Total 1040 / 1640 600 / 1640 Output Total 1000 / 3060 2060 / 3060 750 / 750 Balance 40 / -1420 -1460 / -1420 -750 / -750 Urine Output (Aver age ml/kg/hr) 0.60 1.24 0.45 Weight 137.9 kg Intake: Intake, Oral Tato unt 720 / 1320 600 / 1320 Intake, Oral Sup plement Amount 320 / 320 Output: Output, Urine Am ount 1000 / 3060 2060 / 3060 750 / 750 Other: Breakfast % Eate n 100% 100% Lunch % Eaten 100% 100% Urine Urinal Urinal Urine Color Yellow Body Mass Index 42.4 Constitutional : Alert, oriented, not in distress Neck : Normal inspection, Supple Cardiovascular : RRR, S1 S2, loss to pitting lower extremity edema Respiratory : Good bilateral air entry, bilateral basal crackles, wheezes or rhonchi Gastrointestinal: soft, lax, Normal bowel sounds, Non tender Skin : Warm/Dry, No rash Neurological : Alert & oriented x3, No focal deficit Objective Data Current Medications Generic Name Dose Route Start Last Admin Trade Name Freq PRN Reason Stop Dose Admin Amlodipine Besylate 5 mg 04/25/20 09:00 04/25/20 09:50 Amlodipine Besylate 5 Mg Tablet PO 5 mg DAILY [facility] Administration Protocol Enoxaparin Sodium 40 mg 04/25/20 14:00 04/25/20 14:09 Enoxaparin Sodium 40 Mg/0.4 Ml Syringe SUBCUT 40 mg Q24H [facility] Administration Furosemide 40 mg 04/24/20 09:00 04/25/20 07:59 Furosemide 40 Mg/4 Ml Vial IVPUSH 40 mg BID@0900,1800 [facility] Administration Protocol Insulin Human Lispro 0 unit 04/24/20 11:30 04/25/20 13:05 Insulin Lispro 100 Unit/Ml 3 Ml Vial SUBCUT Not Given QIDACHS [facility] Protocol Levothyroxine Sodium 50 mcg 04/24/20 09:00 04/25/20 08:00 Levothyroxine Sodium 50 Mcg Tablet PO 50 mcg DAILY [facility] Administration Lisinopril 20 mg 04/24/20 15:00 04/25/20 08:00 Lisinopril 20 Mg Tablet PO 20 mg DAILY [facility] Administration Protocol Pharmacy Consult 1 each 04/23/20 19:06 Consult Rx Perform Med Rec MISCELLANE ONCE PRN Consult order Sitagliptin Phosphate 100 mg 04/24/20 09:00 04/25/20 08:05 Sitagliptin Phosphate 100 Mg Tablet PO 100 mg DAILY [facility] Administration Labs CBC & Chem 7: 04/25/20 05:56 04/25/20 05:56 Labs: Laboratory Results - last 24 hr 04/24/20 04/24/20 04/24/20 16:09 19:57 20:53 MCV MCH MCHC RDW Plt Count MPV Immature Gran % (Auto) Neut % (Auto) Lymph % (Auto) [place] % (Auto) Eos % (Auto) Baso % (Auto) Lymph # (Auto) [place] # (Auto) Eos # (Auto) Baso # (Auto) Abs Immat Gran (auto) Absolute Neuts (auto) Absolute Nucleated RBC Nucleated RBC % (auto) Anion Gap Estim Creat Clear Calc Estimated GFR POC Glucose 104 128 H Random Glucose Calcium Urine Creatinine 74.09 Urine Microalbumin 7646.0 Microalb/Creat Ratio 69160.8 04/25/20 04/25/20 04/25/20 05:56 05:56 07:25 MCV 95.7 MCH 32.2 MCHC 33.6 RDW 13.1 Plt Count 304 MPV 9.5 Immature Gran % (Auto) 0.2 Neut % (Auto) 48.7 Lymph % (Auto) 32.0 [place] % (Auto) 9.8 Eos % (Auto) 8.2 H Baso % (Auto) 1.1 Lymph # (Auto) 1.8 [place] # (Auto) 0.5 Eos # (Auto) 0.5 H Baso # (Auto) 0.1 Abs Immat Gran (auto) 0.01 Absolute Neuts (auto) 2.7 Absolute Nucleated RBC 0.000 Nucleated RBC % (auto) 0.0 Anion Gap 9 L Estim Creat Clear Calc 84.0 Estimated GFR 58 POC Glucose 107 Random Glucose 109 Calcium 7.3 L Urine Creatinine Urine Microalbumin Microalb/Creat Ratio 04/25/20 12:37 MCV MCH MCHC RDW Plt Count MPV Immature Gran % (Auto) Neut % (Auto) Lymph % (Auto) [place] % (Auto) Eos % (Auto) Baso % (Auto) Lymph # (Auto) [place] # (Auto) Eos # (Auto) Baso # (Auto) Abs Immat Gran (auto) Absolute Neuts (auto) Absolute Nucleated RBC Nucleated RBC % (auto) Anion Gap Estim Creat Clear Calc Estimated GFR POC Glucose 119 H Random Glucose Calcium Urine Creatinine Urine Microalbumin Microalb/Creat Ratio Microbiology Microbiology Results: Microbiology 04/23/20 11:32 Blood - Venous Blood Culture - Preliminary No growth after 48 hours. 04/23/20 11:25 Blood - Venous Blood Culture - Preliminary No growth after 48 hours. Assessment and Plan (1) CHF (congestive heart failure), NYHA class I: Status: Acute (2) Nephrotic syndrome: Status: Acute (3) Leg edema: Status: Acute (4) Hyperlipidemia: Status: Acute (5) Uncontrolled hypertension: Status: Acute (6) Diabetes 1.5, managed as type 2: Status: Acute Assessment and Plan: A 64-year-old man admitted with acute congestive heart failure with tense edema to both of his legs and abdomen. Acute congestive heart failure. Last echocardiogram in February of 2020 with EF of 60-65%. continue IV Lasix Cardiology input appreciated, continue diuresisAnd will need stress test as outpatient will monitor on secured entrance monitor daily weights and intake and output. uncontrolled Hypertension. increase lisinopril. start amlodipine Follow blood pressures closely Nephrotic syndrome The patient has significant amount of proteinuria up to 10 g Could be secondary to hypertensive, diabetic, other etiology plan for kidney biopsy as outpatient Nephrology input appreciated, to check Doppler ultrasound to rule out DVT, patient might need anticoagulation Diabetes mellitus. Sliding scale, ADA diet, hold glipizide, Januvia and metformin Hyperlipidemia. statin. Hypothyroidism. Continue levothyroxine DVT prophylaxis Lovenox.
[2020-04-25 17:06] LABS: Glucose, Whole Blood 147 mg/dL (60-115)
--- NOTE | 2020-04-25 17:39 | PM.CNGS ---
[facility] Past Medical History Medical History CHF (congestive heart failure), NYHA class I Diabetes 1.5, managed as type 2 Diverticulosis Hiatal hernia History of small bowel obstruction Hyperlipidemia Hypertension Hypothyroidism Family History Pertinent family history: No significant family history relevant to the current admission. Social History Social History Household Members: None Housing: Apartment Do you presently have visiting nurse or other home services: No Alcohol intake: former Smoking Status: Former smoker Smoked in Last 30 Days: No Use of substances other than those prescribed or required for medical reasons: No Currently Displaying Signs/Symptoms of Drug Intoxication Withdrawal: No Have you been hit, kicked, punched, or otherwise hurt by someone within the past year? If so, by whom?: No Do you feel safe in your current relationship?: No Is there a partner from a previous relationship who is making you feel unsafe now?: No Are you made to feel afraid or neglected: No Advance Directives: No Advance Directives Information Provided: No Do you have thoughts of harming others: None Do you have a plan to hurt others: No Plan Recently lost weight without trying: No service: No Current occupational status: disabled Meds Allergies Allergy/AdvReac Type Severity Reaction Status Date / Time Penicillins Allergy Unknown UNKWN Verified 04/23/20 13:49 Home Medications Medication Instructions Recorded Confirmed Type furosemide 20 mg PO DAILY 04/23/20 04/23/20 History glipizide 10 mg PO DAILY 04/23/20 04/23/20 History levothyroxine 50 mcg PO DAILY 04/23/20 04/23/20 History lisinopril 2.5 mg PO DAILY 04/23/20 04/23/20 History metformin 1,000 mg PO BID 04/23/20 04/23/20 History simvastatin 40 mg PO BEDTIME 04/23/20 04/23/20 History sitagliptin [Januvia] 100 mg PO DAILY 04/23/20 04/23/20 History Physical Exam Vital Signs and I&O and Narrative: Vital Signs and I&O: Vital Signs Temp 98.2 F 04/25/20 15:48 Pulse 80 04/25/20 15:48 Resp 20 04/25/20 15:48 BP 128/67 04/25/20 15:48 Pulse Ox 98 04/25/20 15:48 Intake & Output 04/24/20 04/25/20 04/25/20 18:59 06:59 18:59 Intake Total 1040 / 1640 600 / 1640 Output Total 1000 / 3060 2060 / 3060 1150 / 1150 Balance 40 / -1420 -1460 / -1420 -1150 / -1150 Urine Output (Aver age ml/kg/hr) 0.60 1.24 0.69 Weight 137.9 kg Intake: Intake, Oral [place] unt 720 / 1320 600 / 1320 Intake, Oral Sup plement Amount 320 / 320 Output: Output, Urine Am ount 1000 / 3060 2060 / 3060 1150 / 1150 Other: Breakfast % Eate n 100% 100% Lunch % Eaten 100% 100% Urine Urinal Urinal Urine Color Yellow Body Mass Index 42.4 Const: General: cooperative, comfortable and no acute distress Orientation/consciousness: oriented to person and oriented to place Neck: Neck: Yes normal visual inspection and Yes full ROM Chest: Chest palpation & inspection: normal inspection of the chest Resp: Other: bilateral air entry Fair, a self crackles bilaterally. Auscultation: crackles ( bibasilar) Cardio: Heart sounds: S1 normal heart sound present and S2 normal heart sound present GI: Percussion: Yes normal to percussion Skin: Other: Bilateral lower extremity swelling with 2+ pitting edema, skin shiny and tense, right anterior skin changes conistent with previous wound area and seeping soft tissue, currently no draining wounds. Neuro: General: oriented to person and oriented to place Extrem: General: Yes normal to inspection, Yes full ROM, No calf tenderness and Yes pedal edema Results Labs Result diagrams: 04/25/20 05:56 04/25/20 05:56 Labs: Abnormal lab results 04/24/20 04/25/20 04/25/20 Range/Units 20:53 05:56 05:56 RBC 3.95 L (4.60-5.80) X10*6/uL Hgb 12.7 L (14.0-18.0) g/dl Hct 37.8 L (42-52) % Eos % (Auto) 8.2 H (0-4) % Eos # (Auto) 0.5 H (0.0-0.4) X10*3/uL Anion Gap 9 L (12-20) POC Glucose 128 H (60-115) mg/dL Calcium 7.3 L (8.4-10.2) mg/dL 04/25/20 04/25/20 Range/Units 12:37 17:03 RBC (4.60-5.80) X10*6/uL Hgb (14.0-18.0) g/dl Hct (42-52) % Eos % (Auto) (0-4) % Eos # (Auto) (0.0-0.4) X10*3/uL Anion Gap (12-20) POC Glucose 119 H 147 H (60-115) mg/dL Calcium (8.4-10.2) mg/dL Short CBC 04/25/20 Range/Units 05:56 WBC 5.5 (4.8-10.8) X10*3/uL Hgb 12.7 L (14.0-18.0) g/dl Hct 37.8 L (42-52) % Plt Count 304 (160-400) X10*3/uL BMP 04/25/20 05:56 Sodium 138 Potassium 4.1 Chloride 108 Carbon Dioxide 25 BUN 15 Creatinine 1.26 Calcium 7.3 L Urine 04/23/20 Range/Units 15:56 Urine Color YELLOW Urine Appearance CLEAR Urine pH 6.5 (5.0-8.0) Ur Specific [place] 1.020 (1.005-1.025) Urine Protein 3+ H (NEG-TRACE) MG/DL Urine Glucose (UA) 100 H (NEG) MG/DL All other labs normal. Assessment and Plan (1) CHF (congestive heart failure), NYHA class I: Status: Acute (2) Nephrotic syndrome: Status: Acute (3) Leg edema: Status: Acute (4) Hyperlipidemia: Status: Acute (5) Uncontrolled hypertension: Status: Acute (6) Diabetes 1.5, managed as type 2: Status: Acute Wound Care Consult - leg wounds A 64-year-old man admitted with acute congestive heart failure with tense edema to both of his legs and abdomen. wounds arre secondary to volume overload and tissue edema - plan diuresis and compression stockings. moisturizer to lower leg skin and feet at this point tubigrips to decrease edema and then get him into prescription bilateral socks/stockings can fu in wound care if open wounds present as needed pt and hospitalist understand and agree with the plan
--- NOTE | 2020-04-25 19:33 | PM.CNNEP ---
History of Present Illness Reason for Consult Consult date: 04/25/20 Reason for consult: swelling Chief Complaint Chief complaint: FLUID BUILDUP History of Present Illness Narrative: 64 y/o wM adm with 30 lb WT gain andincr leg swelling. No Cp/SOB. No GH/dysuria. No recent cahnge in meds which include lasix. Longstanding DM/HTN and heavy proteinuria. Repeat labs now show markedly lower alb ( 3.7 to now 1.7) and incr Uprot ( UPC 2.0 to now 10gm ) over past 6-12 months respectively Overnight diresis andfeeling better. CHF (congestive heart failure), NYHA class I Diabetes type 2 Diverticulosis Hiatal hernia History of small bowel obstruction Hyperlipidemia Hypertension Hypothyroidism CKD 2 w heavy Uprot PMFSH Past Medical History Medical History CHF (congestive heart failure), NYHA class I Diabetes 1.5, managed as type 2 Diverticulosis Hiatal hernia History of small bowel obstruction Hyperlipidemia Hypertension Hypothyroidism Family History Pertinent family history: No significant family history relevant to the current admission. Social History Social History Household Members: None Housing: Apartment Do you presently have visiting nurse or other home services: No Alcohol intake: former Smoking Status: Former smoker Smoked in Last 30 Days: No Use of substances other than those prescribed or required for medical reasons: No Currently Displaying Signs/Symptoms of Drug Intoxication Withdrawal: No Have you been hit, kicked, punched, or otherwise hurt by someone within the past year? If so, by whom?: No Do you feel safe in your current relationship?: No Is there a partner from a previous relationship who is making you feel unsafe now?: No Are you made to feel afraid or neglected: No Advance Directives: No Advance Directives Information Provided: No Do you have thoughts of harming others: None Do you have a plan to hurt others: No Plan Recently lost weight without trying: No service: No Current occupational status: disabled Meds Allergies Allergy/AdvReac Type Severity Reaction Status Date / Time Penicillins Allergy Unknown UNKWN Verified 04/23/20 13:49 Home Medications Medication Instructions Recorded Confirmed Type furosemide 20 mg PO DAILY 04/23/20 04/23/20 History glipizide 10 mg PO DAILY 04/23/20 04/23/20 History levothyroxine 50 mcg PO DAILY 04/23/20 04/23/20 History lisinopril 2.5 mg PO DAILY 04/23/20 04/23/20 History metformin 1,000 mg PO BID 04/23/20 04/23/20 History simvastatin 40 mg PO BEDTIME 04/23/20 04/23/20 History sitagliptin [Januvia] 100 mg PO DAILY 04/23/20 04/23/20 History Physical Exam Vital Signs and I&O: Vital Signs Temp 97.8 F 04/25/20 18:52 Pulse 83 04/25/20 18:52 Resp 18 04/25/20 18:52 BP 145/82 H 04/25/20 18:52 Pulse Ox 99 04/25/20 18:52 Intake & Output 04/25/20 04/25/20 04/26/20 06:59 18:59 06:59 Intake Total 600 / 1640 Output Total 2060 / 3060 1150 / 1150 Balance -1460 / -1420 -1150 / -1150 Urine Output (Average ml/kg/hr) 1.24 0.69 Intake: Intake, Oral Amount 600 / 1320 Output: Output, Urine Amount 2060 / 3060 1150 / 1150 Other: Breakfast % Eaten 100% Lunch % Eaten 100% Urine Urinal Urinal Urine Color Yellow Body Mass Index 42.4 Comfortable, no distress No pallor, icterus or cyanosis HEENT -unremarkable JVD- normal Cardiac- normal heart sounds, no murmurs, gallops or rubs, normal PMI Respiratory-normal breath sounds bilaterally, no crackles, no wheeze Abdomen- soft, nontender Neuro- alert and oriented Lower extremities- 2+ edema, warm well perfused Const General: cooperative, comfortable and no acute distress Orientation/consciousness: oriented to person and oriented to place Neck Neck: Yes normal visual inspection and Yes full ROM Chest Chest palpation & inspection: normal inspection of the chest Resp Other: bilateral air entry Fair, a self crackles bilaterally. Effort & Inspection: normal respiratory effort Auscultation: crackles ( bibasilar) Cardio Jugular venous distension: no JVD Heart sounds: S1 normal heart sound present and S2 normal heart sound present GI Inspection: Yes normal to inspection, Yes Abdominal wall edema and Yes distended Palpation (GI): Firmness to palpation present (GI) and Tenderness to palpation present (GI) (mild ttp in lower abd) Percussion: Yes normal to percussion Skin Other: Bilateral lower extremity swelling with 2+ pitting edema, skin shiny and tense, right anterior skin changes conistent with previous wound area and seeping soft tissue, currently no draining wounds. Neuro General: oriented to person and oriented to place Extrem General: Yes normal to inspection, Yes full ROM, No calf tenderness and Yes pedal edema Results Lab Results Result Diagrams: 04/25/20 05:56 04/25/20 05:56 Lab results: Chemistry 04/23/20 04/24/20 04/25/20 11:25 05:29 05:56 Sodium 137 138 138 Potassium 4.7 4.1 4.1 Carbon Dioxide 23 22 25 BUN 15 17 H 15 Creatinine 1.30 1.27 1.26 Calcium 7.4 L 7.3 L 7.3 L Hematology 04/23/20 04/24/20 04/25/20 11:24 05:29 05:56 WBC 7.3 5.4 5.5 Hgb 14.2 12.8 L 12.7 L Plt Count 321 316 304 Urinalysis 04/23/20 15:56 Urine Color YELLOW Urine Appearance CLEAR Urine pH 6.5 Ur Specific [place] 1.020 Urine Protein 3+ H Urine Glucose (UA) 100 H Urine Ketones NEG Urine Blood 2+ H Urine Nitrite NEG Ur Leukocyte Esterase NEG Urine RBC 1-4 Urine WBC 0 Ur Squamous Epith Cells NONE Urine Studies 04/24/20 19:57 Urine Creatinine 74.09 Laboratory Tests 12/28/18 03/29/19 06/28/19 00:00 12:00 10:15 Albumin Microalb/Creat Ratio 310.1 2252.4 3527.3 10/03/19 10/03/19 04/09/20 11:00 11:20 11:35 Albumin 3.7 2.0 L D Microalb/Creat Ratio 6307.6 04/24/20 04/24/20 05:29 19:57 Albumin 1.7 L Microalb/Creat Ratio 98202.8 Assessment and Plan (1) Uncontrolled hypertension: Status: Acute (2) Nephrotic syndrome: Status: Acute (3) Essential hypertension: Status: Acute (4) Leg edema: Status: Acute (5) Hyperlipidemia: Status: Acute (6) CHF (congestive heart failure), NYHA class I: Status: Acute (7) Hypothyroidism: Status: Acute (8) Hypertension: Status: Acute (9) Diabetes 1.5, managed as type 2: Status: Acute 1. Severe Nephrotic Syndrome: marked increase in UProt and dramatic decreasee in serum albumin overpast 6 months raises cncern for non-DM causes including both primary ( FSGS, MGN, Min etc..) vs secondary GN (dysproteinemiaassoc GN such as amyloid , MIDD, etc..) at risk for hyperocag state and DVT 2. TBFOL: c/w severe NSyn 3. HTN 4.DM 5. Ques sever hyperlipidemia assoc w NSyn REC: agree with agressive diuresis; sero w/u for causes of NSyn ( I ordered) and will need to consider a kidney Bx to definitive r/o non-DM causes of NSyn; check fasting lipid profile; u/s legs to r/o DVT; agree with incr SHOSHANA-I and track renal func will follow heena with med team
[2020-04-25 20:22] LABS: Glucose, Whole Blood 139 mg/dL (60-115)
--- NOTE | 2020-04-26 | US_ITS ---
EXAMINATION: ULTRASOUND-GUIDED LYMPH NODE BIOPSY CLINICAL INFORMATION: Prominent bilateral groin lymph nodes COMPARISON: Previous bilateral lower extremity venous ultrasound from yesterday TECHNIQUE: Procedure and risks and benefits including bleeding, and infection were discussed with the patient and informed consent was obtained. The right groin/proximal medial thigh was prepped and draped in the usual sterile fashion. The skin and soft tissues were anesthetized with 1% lidocaine plain. Using ultrasound guidance and a coaxial system, access to 2 adjacent prominent right groin/upper thigh lymph nodes was obtained. 4 20-gauge core biopsies were obtained. Diagnostic specimen was sent for pathology and flow cytometry studies. FINDINGS: There are 2 prominent adjacent lymph nodes in the right groin/upper medial thigh that were targeted for core biopsy. The largest lymph node measures 3.3 x 1.3 x 2.3 cm in sagittal AP and transverse dimension. Lymph nodes demonstrate normal ultrasound morphology and flow. IMPRESSION: Ultrasound-guided right groin/medial upper thigh lymph node core biopsy.
[2020-04-26 03:51] VITALS: BP 158/75; PULSE 69; RESP 18; TEMP 36.5; O2SAT 98
[2020-04-26] MEDS: Acetaminophen 325 MG TABLET 650 MG PO (05:26)
[2020-04-26 07:23] LABS: Anion Gap 10 (12-20); Blood Urea Nitrogen 16 mg/dL (9-16); Calcium 7.8 mg/dL (8.4-10.2); Carbon Dioxide 26 mmol/L (22-29); Chloride 105 mmol/L (96-108); Creatinine Clr Calc Pharmacy 83.3; Estimated Glomerular Filt Rate 57; Glucose Random 108 mg/dL (60-115); Potassium 4.3 mmol/l (3.3-5.1); Sodium 137 mmol/L (135-145)
[2020-04-26 07:44] LABS: Glucose, Whole Blood 96 mg/dL (60-115)
[2020-04-26 07:52] LABS: Cholesterol 361 mg/dL; HDL Cholesterol 43 mg/dL; LDL Cholesterol Calculated 274 mg/dl; Triglycerides 224 mg/dL
[2020-04-26 08:00] VITALS: BP 173/77; PULSE 72; RESP 18; TEMP 36.7; O2SAT 97
[2020-04-26 08:43] VITALS: BP 173/77; PULSE 72
[2020-04-26] MEDS: amLODIPine Besylate 5 MG TABLET PO (08:43)
[2020-04-26] MEDS: Levothyroxine Sodium 50 MCG TABLET PO (08:43)
[2020-04-26] MEDS: lisinopriL 40 MG TABLET PO (08:43)
[2020-04-26] MEDS: SITagliptin Phosphate 100 MG TABLET PO (08:43)
[2020-04-26] MEDS: Furosemide 40 MG/4 ML VIAL IVPUSH (08:44)
[2020-04-26 08:46] LABS: INTERNATIONAL NORM RATIO 0.9 (0.9-1.1)
[2020-04-26 09:10] LABS: Anion Gap 10 (12-20); Blood Urea Nitrogen 16 mg/dL (9-16); Calcium 7.9 mg/dL (8.4-10.2); Carbon Dioxide 26 mmol/L (22-29); Chloride 105 mmol/L (96-108); Creatinine Clr Calc Pharmacy 86.8; Estimated Glomerular Filt Rate 60; Glucose Random 114 mg/dL (60-115); Potassium 4.1 mmol/l (3.3-5.1); Sodium 137 mmol/L (135-145)
--- NOTE | 2020-04-26 10:50 | PM.PNCARD ---
Subjective Subjective Interval history: seen in follow-up regarding leg swelling. He states that he is feeling much better. Review of Systems Review of Systems Yes all other systems are reviewed and are negative Cardiovascular: Denies chest pain, Denies chest pain at rest, Reports leg edema and Denies dyspnea Respiratory: Denies dyspnea Physical Exam Vital Signs and I&O: Vital Signs Temp 98.1 F 04/26/20 08:00 Pulse 72 04/26/20 08:43 Resp 18 04/26/20 08:00 BP 173/77 H 04/26/20 08:43 Pulse Ox 97 04/26/20 08:00 Intake & Output 04/25/20 04/26/20 04/26/20 18:59 06:59 18:59 Intake Total 240 / 240 360 / 360 Output Total 1150 / 2130 980 / 2130 Balance -1150 / -1890 -740 / -1890 360 / 360 Urine Output (Average ml/kg/hr) 0.69 0.59 0.59 Intake: Intake, Oral Amount 240 / 240 360 / 360 Output: Output, Urine Amount 1150 / 2130 980 / 2130 Other: Breakfast % Eaten 100% 100% Lunch % Eaten 100% Urine Urinal Urinal Urine Color Yellow Body Mass Index 42.4 Comfortable, no distress No pallor, icterus or cyanosis HEENT -unremarkable JVD- normal Cardiac- normal heart sounds, no murmurs, gallops or rubs, normal PMI Respiratory-normal breath sounds bilaterally, no crackles, no wheeze Abdomen- soft, nontender Neuro- alert and oriented Lower extremities- 2+ edema, warm well perfused Progress Note: A&P Assessment and plan (1) Leg edema: Status: Acute (2) Essential hypertension: Status: Acute (3) Diabetes 1.5, managed as type 2: Status: Acute Assessment and Plan: Based on the echocardiogram, no clear evidence of any left or right ventricular dysfunction or pulmonary hypertension cause this degree of edema. Cardiac BNPs within normal limits. However there is evidence of pulmonary congestion on chest x-ray. For now we can gently diurese him. He does have proteinuria as well as evidence of low albumin and I am not sure how much that contributes to the edema. Otherwise, based on his risk factors, he will need a stress test at some point. Also needs nephro input. Fall Risk Details Current Medications: Current Medications Generic Name Dose Route Start Last Admin Trade Name Renuka PRN Reason Stop Dose Admin Amlodipine Besylate 5 mg 04/25/20 09:00 04/26/20 08:43 Amlodipine Besylate 5 Mg Tablet PO 5 mg DAILY ROSALIA Administration Protocol Furosemide 40 mg 04/24/20 09:00 04/26/20 08:44 Furosemide 40 Mg/4 Ml Vial IVPUSH 40 mg BID@0900,1800 ROSALIA Administration Protocol Insulin Human Lispro 0 unit 04/24/20 11:30 04/26/20 08:42 Insulin Lispro 100 Unit/Ml 3 Ml Vial SUBCUT Not Given QIDACHS [facility] Protocol Levothyroxine Sodium 50 mcg 04/24/20 09:00 04/26/20 08:43 Levothyroxine Sodium 50 Mcg Tablet PO 50 mcg DAILY ROSALIA Administration Lisinopril 40 mg 04/26/20 09:00 04/26/20 08:43 Lisinopril 40 Mg Tablet PO 40 mg DAILY ROSALIA Administration Protocol Pharmacy Consult 1 each 04/23/20 19:06 Consult Rx Perform Med Rec MISCELLANE ONCE PRN Consult order Sitagliptin Phosphate 100 mg 04/24/20 09:00 04/26/20 08:43 Sitagliptin Phosphate 100 Mg Tablet PO 100 mg DAILY ROSALIA Administration Time Spent With Patient Time: Total time spent is greater than 50% in coordination of care (as documented) at patient's floor/unit and/or counseling patient: Time with patient: 15 - 24 minutes
--- NOTE | 2020-04-26 10:56 | PM.EVENT ---
Event Note Event Note: Right Groin Lymph node core biopsy using coaxial system. 4 20 guage core biopsies obtained .
[2020-04-26 11:30] LABS: Glucose, Whole Blood 127 mg/dL (60-115)
[2020-04-26 11:37] VITALS: BP 161/84; PULSE 82; RESP 20; TEMP 37; O2SAT 99
--- NOTE | 2020-04-26 11:57 | PM.PNNEP ---
Subjective Subjective Interval history: seen in follow-up regarding leg swelling. He states that he is feeling much better. Physical Exam Vital Signs and I&O and Narrative: Vital Signs and I&O: Vital Signs Temp 98.6 F 04/26/20 11:37 Pulse 82 04/26/20 11:37 Resp 20 04/26/20 11:37 BP 161/84 H 04/26/20 11:37 Pulse Ox 99 04/26/20 11:37 Intake & Output 04/25/20 04/26/20 04/26/20 18:59 06:59 18:59 Intake Total 240 / 240 360 / 360 Output Total 1150 / 2130 980 / 2130 Balance -1150 / -1890 -740 / -1890 360 / 360 Urine Output (Aver age ml/kg/hr) 0.69 0.59 0.59 Intake: Intake, Oral [place] unt 240 / 240 360 / 360 Output: Output, Urine Am ount 1150 / 2130 980 / 2130 Other: Breakfast % Eate n 100% 100% Lunch % Eaten 100% Urine Urinal Urinal Urine Color Yellow Body Mass Index 42.4 Comfortable, no distress No pallor, icterus or cyanosis HEENT -unremarkable JVD- normal Cardiac- normal heart sounds, no murmurs, gallops or rubs, normal PMI Respiratory-normal breath sounds bilaterally, no crackles, no wheeze Abdomen- soft, nontender Neuro- alert and oriented Lower extremities- 2+ edema, warm well perfused Const: General: cooperative, comfortable and no acute distress Orientation/consciousness: oriented to person and oriented to place Neck: Neck: Yes normal visual inspection and Yes full ROM Chest: Chest palpation & inspection: normal inspection of the chest Resp: Other: bilateral air entry Fair, a self crackles bilaterally. Effort & Inspection: normal respiratory effort Auscultation: crackles ( bibasilar) Cardio: Jugular venous distension: no JVD Heart sounds: S1 normal heart sound present and S2 normal heart sound present GI: Inspection: Yes normal to inspection, Yes Abdominal wall edema and Yes distended Palpation (GI): Firmness to palpation present (GI) and Tenderness to palpation present (GI) (mild ttp in lower abd) Percussion: Yes normal to percussion Skin: Other: Bilateral lower extremity swelling with 2+ pitting edema, skin shiny and tense, right anterior skin changes conistent with previous wound area and seeping soft tissue, currently no draining wounds. Neuro: General: oriented to person and oriented to place Extrem: General: Yes normal to inspection, Yes full ROM, No calf tenderness and Yes pedal edema Assessment & Plan Assessment and plan (1) Uncontrolled hypertension: Status: Acute (2) Nephrotic syndrome: Status: Acute (3) Essential hypertension: Status: Acute (4) Leg edema: Status: Acute (5) Hyperlipidemia: Status: Acute (6) CHF (congestive heart failure), NYHA class I: Status: Acute (7) Hypothyroidism: Status: Acute (8) Hypertension: Status: Acute (9) Diabetes 1.5, managed as type 2: Status: Acute Assessment and Plan: 1. Severe Nephrotic Syndrome: marked increase in UProt and dramatic decreasee in serum albumin overpast 6 months raises cncern for non-DM causes including both primary ( FSGS, MGN, Min etc..) vs secondary GN (dysproteinemiaassoc GN such as amyloid , MIDD, etc..) at risk for hyperocag state and DVT 2. TBFOL: c/w severe NSyn 3. HTN 4.DM 5. Ques sever hyperlipidemia assoc w NSyn REC: if d/c then prefer torsemide 40 po bid over lasix; cont lisinioprl and norvasc; incr statin; needs outpt labs next week and I will arrange f/u with me in 1-2 wks as we lookk to do a kidney Bx Time Spent With Patient Time: Total time spent is greater than 50% in coordination of care (as documented) at patient's floor/unit and/or counseling patient:
--- NOTE | 2020-04-26 12:16 | MHC.CM.PN ---
Patient will be discharged home today no services. Taxi voucher given for transport.
--- NOTE | 2020-04-26 15:46 | P.DS_ITS ---
DS: Providers Provider Date of admission: 04/23/20 15:49 Primary care physician: Ernestine Tapia MD Consults: 04/23/20 16:46 Consult to Cardiology Routine Consulting Provider: [facility] Cardiovascular Services Reason for consultation: chf Has provider been notified: No 04/24/20 09:08 Consult to Wound Care Provider Routine Consulting Provider: Ileana Leach Reason for consultation: VENOUS STASIS ULCERS TO BILAT LOWER EXT 04/25/20 09:45 Consult to Nephrology Routine Consulting Provider: Jarocho Ribeiro Reason for consultation: Proteinurea, Uncontrolled HTN, for your eval DS: Diagnosis Discharge Diagnosis (1) Uncontrolled hypertension: Status: Acute (2) Nephrotic syndrome: Status: Acute (3) Essential hypertension: Status: Acute (4) Leg edema: Status: Acute (5) Hyperlipidemia: Status: Acute (6) CHF (congestive heart failure), NYHA class I: Status: Acute (7) Hypothyroidism: Status: Acute (8) Hypertension: Status: Acute (9) Diabetes 1.5, managed as type 2: Status: Acute DS: Summary Time Spent with Patient Time attestation: admission note HPI 64-year-old man presenting to the ER with complaints of increased shortness of breath. Patient lives alone. He went to see his primary care provider today who ended up bringing him to the ER. Apparently patient had gained approximately 20-30 lb over the last month. He is on Lasix at home of like seems to have continued to accumulate fluid. He has some tense edema to both his legs and abdomen. He denied any shortness of breath or dyspnea or chest pain for that matter. He does have some dermatitis to both of his legs likely from all the swelling and seems to be weeping as well. In the ER, his vital signs were stable. He was not noted to be hypoxic at all. BNP was low however this falsely negative due to history of obesity. In the ER, he was given a dose of IV Lasix, cefepime. He will be admitted for further management treatment of acute congestive heart failure. --------- The patient was admitted to the hospital for evaluation of edema and weight gain. He was noted to have significant proteinuria with low BNP. Evaluated by Cardiology who recommended diuresis with IV Lasix with good response. Most recent echo showed EF of 60 65%. Cardiology recommended continue treatment with diuretics and to follow-up as outpatient for stress test. He was evaluated by Nephrology for proteinuria in range of nephrotic syndrome. Blood for and serologies sent out and still pending results. He was seen by doctor Ribeiro. An ultrasound for lower extremities showed no DVT. To follow-up as outpatient with Nephrology for kidney biopsy. And enlarged inguinal lymph nodes of 5 cm bilaterally were noticed on ultrasound. Biopsy for the lymph nodes was done at the day of discharge.To follow-up results with PCP. The patient was noticed to significantly elevated blood pressure readings. Lisinopril was increased from 2.5 mg to 40 mg during the hospital stay gradually. He was started on amlodipine as well with fair response as his blood pressure became more controlled. Take amlodipine 5 mg daily Increase lisinopril to 40 mg daily To start Torsemide 40 mg twice Daily monitor your blood pressure at home and reports reading to your PCP Will repeat blood test next week. To follow-up with doctor Ribeiro from Nephrology. To follow-up with from Cardiology as outpatient for stress test Physical Exam Vital Signs and I&O and Narrative: Vital Signs and I&O: Vital Signs Temp 98.6 F 04/26/20 11:37 Pulse 82 04/26/20 11:37 Resp 20 04/26/20 11:37 BP 161/84 H 04/26/20 11:37 Pulse Ox 99 04/26/20 11:37 Intake & Output 04/25/20 04/26/20 04/26/20 18:59 06:59 18:59 Intake Total 240 / 240 600 / 600 Output Total 1150 / 2130 980 / 2130 Balance -1150 / -1890 -740 / -1890 600 / 600 Urine Output (Aver age ml/kg/hr) 0.69 0.59 0.59 Intake: Intake, Oral Tato unt 240 / 240 600 / 600 Output: Output, Urine Am ount 1150 / 2130 980 / 2130 Other: Breakfast % Eate n 100% 100% Lunch % Eaten 100% 100% Urine Urinal Urinal Urine Color Yellow Body Mass Index 42.4 DS: Data Data Completed and Pending Pending studies at discharge: Pending at discharge 04/26/20 10:59 Surgical [PTH] Routine Labs on day of discharge: Labs from last 24 hours 10/04/0704/26/20 04/26/20 11:25 10:59 08:04 PT INR Sodium 137 Potassium 4.1 Chloride 105 Carbon Dioxide 26 Anion Gap 10 L BUN 16 Creatinine 1.22 Estim Creat Clear Calc 86.8 Estimated GFR 60 POC Glucose 127 H Random Glucose 114 Calcium 7.9 L Triglycerides Cholesterol LDL Cholesterol, Calc HDL Cholesterol LP-Assoc Phospholip A2 IgG Total IgA Total IgM KETAN Interpretation [place] Screen [place]IGHTON Titer [place] Pattern Complement C3 Complement C4 Leuk/Lymph Viability Pending Leuk/Lym Source Pending Leuk/Lym Sample Descrip Pending Leuk/Lym # of Markers Pending Leuk/Lym Markers Pending L/L Additional Markers Pending Leuk/Lym Gating Strategy Pending Leuk/Lym Comment Pending Leuk/Lym Interpretation Pending Free [place] LC, Quant Free Lambda LC, Quant Free [place]/Lambda Ratio Hep Bs Antigen Hep Bs Antibody Hep B Core Total Ab Hepatitis C Ab (EIA) 04/26/20 04/26/20 04/26/20 08:04 07:40 05:40 PT 11.0 INR 0.9 Sodium Potassium Chloride Carbon Dioxide Anion Gap BUN Creatinine Estim Creat Clear Calc Estimated GFR POC Glucose 96 Random Glucose Calcium Triglycerides Cholesterol LDL Cholesterol, Calc HDL Cholesterol LP-Assoc Phospholip A2 IgG Total IgA Total IgM KETAN Interpretation [place] Screen [place] Titer [place] Pattern Complement C3 Complement C4 Leuk/Lymph Viability Leuk/Lym Source Leuk/Lym Sample Descrip Leuk/Lym # of Markers Leuk/Lym Markers L/L Additional Markers Leuk/Lym Gating Strategy Leuk/Lym Comment Leuk/Lym Interpretation Free [place] LC, Quant Free Lambda LC, Quant Free [place]/Lambda Ratio Hep Bs Antigen Pending Hep Bs Antibody Pending Hep B Core Total Ab Pending Hepatitis C Ab (EIA) Pending 04/26/20 04/26/20 04/26/20 05:40 05:40 05:40 PT INR Sodium Potassium Chloride Carbon Dioxide Anion Gap BUN Creatinine Estim Creat Clear Calc Estimated GFR POC Glucose Random Glucose Calcium Triglycerides Cholesterol LDL Cholesterol, Calc HDL Cholesterol LP-Assoc Phospholip A2 Pending IgG Total IgA Total IgM KETAN Interpretation [place] Screen Pending [place] Titer Pending [place] Pattern Pending Complement C3 Complement C4 Leuk/Lymph Viability Leuk/Lym Source Leuk/Lym Sample Descrip Leuk/Lym # of Markers Leuk/Lym Markers L/L Additional Markers Leuk/Lym Gating Strategy Leuk/Lym Comment Leuk/Lym Interpretation Free [place] LC, Quant Pending Free Lambda LC, Quant Pending Free [place]/Lambda Ratio Pending Hep Bs Antigen Hep Bs Antibody Hep B Core Total Ab Hepatitis C Ab (EIA) 04/26/20 04/26/20 04/26/20 05:40 05:40 05:40 PT INR Sodium Potassium Chloride Carbon Dioxide Anion Gap BUN Creatinine Estim Creat Clear Calc Estimated GFR POC Glucose Random Glucose Calcium Triglycerides 224 Cholesterol 361 LDL Cholesterol, Calc 274 HDL Cholesterol 43 LP-Assoc Phospholip A2 IgG Total Pending IgA Total Pending IgM Pending KETAN Interpretation Pending [place] Screen [place] Titer [place] Pattern Complement C3 Pending Complement C4 Pending Leuk/Lymph Viability Leuk/Lym Source Leuk/Lym Sample Descrip Leuk/Lym # of Markers Leuk/Lym Markers L/L Additional Markers Leuk/Lym Gating Strategy Leuk/Lym Comment Leuk/Lym Interpretation Free [place] LC, Quant Free Lambda LC, Quant Free [place]/Lambda Ratio Hep Bs Antigen Hep Bs Antibody Hep B Core Total Ab Hepatitis C Ab (EIA) 04/26/20 04/26/20 04/25/20 05:40 05:39 20:18 PT Cancelled INR Cancelled Sodium 137 Potassium 4.3 Chloride 105 Carbon Dioxide 26 Anion Gap 10 L BUN 16 Creatinine 1.27 Estim Creat Clear Calc 83.3 Estimated GFR 57 POC Glucose 139 H Random Glucose 108 Calcium 7.8 L Triglycerides Cholesterol LDL Cholesterol, Calc HDL Cholesterol LP-Assoc Phospholip A2 IgG Total IgA Total IgM KETAN Interpretation [place] Screen [place] Titer [place] Pattern Complement C3 Complement C4 Leuk/Lymph Viability Leuk/Lym Source Leuk/Lym Sample Descrip Leuk/Lym # of Markers Leuk/Lym Markers L/L Additional Markers Leuk/Lym Gating Strategy Leuk/Lym Comment Leuk/Lym Interpretation Free [place] LC, Quant Free Lambda LC, Quant Free [place]/Lambda Ratio Hep Bs Antigen Hep Bs Antibody Hep B Core Total Ab Hepatitis C Ab (EIA) 04/25/20 17:03 PT INR Sodium Potassium Chloride Carbon Dioxide Anion Gap BUN Creatinine Estim Creat Clear Calc Estimated GFR POC Glucose 147 H Random Glucose Calcium Triglycerides Cholesterol LDL Cholesterol, Calc HDL Cholesterol LP-Assoc Phospholip A2 IgG Total IgA Total IgM KETAN Interpretation [place] Screen [place] Titer [place] Pattern Complement C3 Complement C4 Leuk/Lymph Viability Leuk/Lym Source Leuk/Lym Sample Descrip Leuk/Lym # of Markers Leuk/Lym Markers L/L Additional Markers Leuk/Lym Gating Strategy Leuk/Lym Comment Leuk/Lym Interpretation Free [place] LC, Quant Free Lambda LC, Quant Free [place]/Lambda Ratio Hep Bs Antigen Hep Bs Antibody Hep B Core Total Ab Hepatitis C Ab (EIA) Preliminary micro results at discharge 04/23/20 11:32 Blood Culture - Preliminary Blood - Venous No growth after 48 hours. 04/23/20 11:25 Blood Culture - Preliminary Blood - Venous No growth after 48 hours. Discharge Plan Discharge Patient Disposition: Home Health Service Referrals: Ernestine Tapia MD [Primary Care Provider] - Discharge Medications: New amlodipine 5 mg Tablet 5 mg PO DAILY Qty: 30 RF: 0 lisinopril 40 mg Tablet 40 mg PO DAILY Qty: 30 RF: 0 torsemide 20 mg tablet 40 mg PO BID Qty: 120 RF: 0 Continued simvastatin 40 mg Tablet 40 mg PO BEDTIME RF: 0 metformin 500 mg Tablet,Er Karolyn.Retention 24 Hr 1,000 mg PO BID RF: 0 glipizide 10 mg Tablet Extended Release 24hr 10 mg PO DAILY RF: 0 levothyroxine 50 mcg Tablet 50 mcg PO DAILY RF: 0 Januvia 100 mg Tablet 100 mg PO DAILY RF: 0 Discontinued furosemide 20 mg Tablet 20 mg PO DAILY RF: 0 lisinopril 2.5 mg Tablet 2.5 mg PO DAILY RF: 0 Discharge Orders: Discharge Order (Routine); Ordered 04/26/20 Ordered By: Ileana Leach Diet: advance to your usual diet and low salt diet Activity on Discharge: As tolerated Other Ambulatory Orders: Basic Metabolic Panel (Routine) Timeframe: 20200501 Facility: [facility] - Location: Laboratory Ordered By: Ileana Leach Visit Report Forms: Patient Portal Discharge page Care Plan Goals: See below Health Concerns: See below Plan of Treatment: a you were admitted to the hospital for evaluation of fluid overload. You were treated with IV Lasix with good response and seen by cardiology and nephrology. Your urinalysis showed large amount of protein loss in the urine. Your blood pressure was also noted to be significantly high. New medications were introduced with fair control of the blood pressure. A biopsy of your lymph node was Done. To follow-up results with PCP Take amlodipine 5 mg daily Increase lisinopril to 40 mg daily To start Torsemide 40 mg twice Daily monitor your blood pressure at home and reports reading to your PCP Will repeat blood test next week. To follow-up with doctor Ribeiro from Nephrology. To follow-up with from Cardiology as outpatient for stress test
[2020-04-28 16:16] LABS: Anti Nuclear Antibody Screen NEGATIVE (NEGATIVE)
[2020-04-29 08:42] LABS: HBS Num1 0.72 mIU/mL (0-7.99); HBc Num1 0.04 S/CO (0.00-0.79); HBsAGNum1 0.18 S/CO (0.00-0.99); Hepatitis B Core Antibody Nonreactive (Nonreactive); Hepatitis B Surface Antigen Negative (Negative); ~Hepatitis B Surface Antibody NONREACTIVE (Nonreactive)
[2020-04-29 09:42] LABS: ~HepC Num1 0.04 S/CO (0.00-0.79); ~Hepatitis C Antibody Nonreactive (Nonreactive)
[2020-04-29 10:26] LABS: Complement C3 152 mg/dL (82-185)
[2020-04-29 14:36] LABS: IgA 328 mg/dL (70-320); IgG 372 mg/dL (600-1540); IgM 45 mg/dL (50-300)
[2020-04-29 20:02] LABS: LLE Markers 14
[2020-04-30 02:07] LABS: Kappa Light Chain, Free Serum 59.6 mg/L (3.3-19.4); Kappa/Lambda Lt Ch Free Ratio 1.46 (0.26-1.65); Lambda Light Chain, Free Serum 40.8 mg/L (5.7-26.3)
[2020-05-04 00:57] LABS: Lipoprotein Asso Phospholip A2 135 (<=123)
[2020-05-07 12:05] LABS: LLE Report Type SEE ABOVE; LLE Sample Description TISSUE
== END 2020-04-26 16:11 | disposition home health service (06) | DRG 293 ==
LOC: HO.ED 13:29 → HO.IMC 16:00
PROVIDERS: Internal Medicine Nephrology; Physician Assistant; Admitting Provider Nurse Practitioner Acute Care; Emergency Provider Emergency Medicine; PCP Internal Medicine; Visit Provider Student in an Organized Health Care Education/Training Program
DX: I13.0 Hypertensive heart and chronic kidney disease with heart failure and stage 1 through stage 4 chronic kidney disease, or unspecified chronic kidney disease (principal); G80.9 Cerebral palsy, unspecified; I11.0 Hypertensive heart disease with heart failure; E11.22 Type 2 diabetes mellitus with diabetic chronic kidney disease; R59.0 Localized enlarged lymph nodes; N18.2 Chronic kidney disease, stage 2 (mild); Z88.0 Allergy status to penicillin; I50.9 Heart failure, unspecified; Z79.84 Long term (current) use of oral hypoglycemic drugs; Z79.890 Hormone replacement therapy; Z79.899 Other long term (current) drug therapy
CPT/HCPCS: 36415; 38505; 71046; 76942; 80048; 80061; 80076; 81001; 81003; 82043; 82784; 82947; 83520; 83605; 83690; 83698; 83735; 83880; 84443; 85025; 85610; 86038; 86039; 86160; 86334; 86704; 86706; 86803; 87040; 87340; 88184; 88185; 88189; 88300; 88305; 93005; 93010; 93306; 93970; 96374; 99221; 99284; 99285; J1650; J1940; Q9957

== ENCOUNTER 2020-05-01 11:47 | Outpatient (REF) | payer MEDICARE, MEDICAID, SELFPAY ==
[2020-05-01 13:46] LABS: MANUAL DIFF FLAG NO
[2020-05-01 13:54] LABS: Basophils Absolute Auto 0.1 X10*3/uL (0.0-0.2); Eosinophils Absolute Auto 0.4 X10*3/uL (0.0-0.4); Eosinophils Percent Auto 6.7 % (0-4); Hematocrit 41.4 % (42-52); Hemoglobin 14.2 g/dl (14.0-18.0); Imm Gran Abs Auto 0.01 X10*3/uL (0.00-0.03); Imm Gran Pct Auto 0.2 % (0.0-0.4); Lymphocytes Absolute Auto 1.6 X10*3/uL (1.2-4.9); Lymphocytes Percent Auto 26.2 % (20-40); Mean Corpuscular HGB Conc 34.3 g/dl (31.0-36.0); Mean Corpuscular Hemoglobin 32.9 pg (27.0-33.0); Mean Corpuscular Volume 95.8 fL (80-98); Monocytes Absolute Auto 0.5 X10*3/uL (0.1-1.2); Monocytes Percent Auto 8.6 % (2-11); Neutrophils Absolute Auto 3.5 X10*3/uL (2.0-8.3); Neutrophils Percent Auto 57.3 % (45-73); Platelet Count 339 X10*3/uL (160-400); Red Blood Count 4.32 X10*6/uL (4.60-5.80); Red Cell Distribution Width 12.9 % (11.0-16.0); White Blood Count 6.2 X10*3/uL (4.8-10.8)
[2020-05-01 14:27] LABS: Alanine Aminotransferase 12 U/L (0-40); Albumin Level 2.1 g/dL (3.5-5.0); Alkaline Phosphatase 61 U/L (39-117); Anion Gap 10 (12-20); Aspartate Amino Transferase 17 U/L (5-37); Bilirubin Total 0.3 mg/dL (0.0-1.0); Blood Urea Nitrogen 19 mg/dL (9-16); Carbon Dioxide 26 mmol/L (22-29); Chloride 107 mmol/L (96-108); Estimated Glomerular Filt Rate > 60; Glucose Random 108 mg/dL (60-115); Potassium 4.7 mmol/l (3.3-5.1); Sodium 138 mmol/L (135-145); Total Protein 4.8 g/dL (6.5-8.0)
[2020-05-01 14:28] LABS: Anion Gap 11 (12-20); Blood Urea Nitrogen 19 mg/dL (9-16); Carbon Dioxide 26 mmol/L (22-29); Chloride 107 mmol/L (96-108); Estimated Glomerular Filt Rate 59; Glucose Random 109 mg/dL (60-115); Potassium 4.7 mmol/l (3.3-5.1); Sodium 139 mmol/L (135-145)
[2020-05-01 15:18] LABS: Estimated Average Glucose 117 mg/dL; Hemoglobin A1c % 5.7 %
== END 2020-05-01 11:48 | disposition home or self-care (01) ==
LOC: HO.10HDL 11:47
PROVIDERS: Absent Provider Student in an Organized Health Care Education/Training Program; PCP Internal Medicine; Visit Provider Internal Medicine
DX: E03.9 Hypothyroidism, unspecified (principal); I10 Essential (primary) hypertension; D64.9 Anemia, unspecified
CPT/HCPCS: 36415; 80048; 80053; 83036; 85025

== ENCOUNTER → 2020-05-07 08:56 | Outpatient (REF) | payer MEDICARE, MEDICAID, SELFPAY ==
--- NOTE | 2020-05-07 09:00 | CA_ITS ---
Acquisition Time: 2020-05-07 09:10:05 Total Exercise Time: 00:02:00 Test Indications: Screening for CAD Medications: AMLODIPINE LISINOPRIL TORSEMIDE SIMVASTATIN METFORMIN GLYPIZIDE LEVOTHYROXINE JANUVIA Protocol: LEXISCAN Max HR: 096 BPM 61% of Pred: 156 BPM Max BP: 112/068 mmHG Max Work Load: 1.0 METS Pharmacological stress test using Lexiscan while sitting. Pt unable to walk on treadmill. Test switched to pharmacological. Pt tolerated well. SOB reversed with Aminophyline 75 mg IV. No other anginal sx. EKG with no arrhythmias, non diagnostic for ischemia. Nuclear images to follow. Normotensive response to test. Test reviewed with Referred By: Parveen Hooker Overread By: Genet Gibbs
--- NOTE | 2020-05-07 10:12 | NM_ITS ---
Lexiscan Myocardial perfusion study Indication: Hypertension, diabetes, fluid overload, congestive heart failure, assess for coronary disease ischemia Technique: The patient was brought in for a Lexiscan perfusion study on 05/07/2020 and was injected 0.4 mg of Lexiscan intravenously. Within a minute of this injection 45 mCi of sestamibi was given intravenously. Images were obtained using the SPECT gamma camera interlaced with the gating device. Images were obtained in supine position. Resting perfusion study was performed on 05/09/2020. Patient was administered 45 mCi of sestamibi intravenously at rest. Images were then obtained in supine position. Total DLP 101mGy-cm. Images were processed with the software and compared side to side in short axis, horizontal long axis and vertical long axis views. Findings: Raw acquisition was reviewed. The stress perfusion study showed diminished tracer uptake along the mid anterior wall as well as inferior wall. With CT attenuation correction, these defects improved significantly suggestive of soft tissue as well as diaphragmatic attenuation artifact. The gated study shows normal LV systolic function with calculated LVEF of 55%. LV cavity is normal in size. The gated study shows normal wall thickening and contraction of segments. Resting study shows no significant perfusion abnormality. Gating at rest reveals normal wall motion with ejection fraction at 51%. The findings are consistent with reversible defects in the mid anterior wall as well as the inferior wall with improvement during CT attenuation correction suggestive of artifactual etiology. NM/NM hiro perf SPECT rest & str Impression: 1. Myocardial perfusion imaging study shows no definitive evidence of any ischemia or infarction. Reversible defects in the mid anterior wall and inferior wall noted but they improves significantly with CT attenuation correction and hence likely artifactual in nature. 2. Gated LVEF is 55% during stress and 51% during rest. 3. Transient ischemic dilatation not present. EKG component of the test reported separately.
== END ==
LOC: HO.CARD 08:56
PROVIDERS: PCP Internal Medicine; Visit Provider Internal Medicine
DX: I50.9 Heart failure, unspecified (principal)
CPT/HCPCS: 78452; 93017; A9500; J0280; J2785

== ENCOUNTER 2020-05-08 12:09 | Outpatient (REF) | payer MEDICARE, MEDICAID, SELFPAY ==
[2020-05-08 14:35] LABS: Anion Gap 16 (12-20); Blood Urea Nitrogen 18 mg/dL (9-16); Calcium 7.6 mg/dL (8.4-10.2); Carbon Dioxide 20 mmol/L (22-29); Chloride 108 mmol/L (96-108); Estimated Glomerular Filt Rate > 60; Glucose Fasting 105 mg/dL (60-99); Potassium 4.8 mmol/l (3.3-5.1); Sodium 139 mmol/L (135-145)
== END 2020-05-08 12:10 | disposition home or self-care (01) ==
LOC: HO.10HDL 12:09
PROVIDERS: Visit Provider Internal Medicine
DX: D64.9 Anemia, unspecified (principal); I10 Essential (primary) hypertension; E11.9 Type 2 diabetes mellitus without complications
CPT/HCPCS: 80048

== ENCOUNTER 2020-06-05 10:46 | Outpatient (REF) | payer MEDICARE, MEDICAID, SELFPAY ==
[2020-06-05 13:40] LABS: MANUAL DIFF FLAG NO
[2020-06-05 13:44] LABS: Basophils Absolute Auto 0.1 X10*3/uL (0.0-0.2); Basophils Percent Auto 1.1 % (0-2); Eosinophils Absolute Auto 0.3 X10*3/uL (0.0-0.4); Eosinophils Percent Auto 4.4 % (0-4); Hematocrit 41.8 % (42-52); Hemoglobin 14.4 g/dl (14.0-18.0); Imm Gran Abs Auto 0.03 X10*3/uL (0.00-0.03); Imm Gran Pct Auto 0.4 % (0.0-0.4); Lymphocytes Absolute Auto 1.8 X10*3/uL (1.2-4.9); Lymphocytes Percent Auto 24.4 % (20-40); Mean Corpuscular HGB Conc 34.4 g/dl (31.0-36.0); Mean Corpuscular Hemoglobin 31.9 pg (27.0-33.0); Mean Corpuscular Volume 92.7 fL (80-98); Mean Platelet Volume 10.1 fL (9.4-12.4); Monocytes Absolute Auto 0.6 X10*3/uL (0.1-1.2); Monocytes Percent Auto 8.2 % (2-11); Neutrophils Absolute Auto 4.5 X10*3/uL (2.0-8.3); Neutrophils Percent Auto 61.5 % (45-73); Platelet Count 364 X10*3/uL (160-400); Red Blood Count 4.51 X10*6/uL (4.60-5.80); Red Cell Distribution Width 12.8 % (11.0-16.0); White Blood Count 7.3 X10*3/uL (4.8-10.8)
[2020-06-05 14:02] LABS: Estimated Average Glucose 137 mg/dL; Hemoglobin A1c % 6.4 %
[2020-06-05 14:14] LABS: Alanine Aminotransferase 13 U/L (0-40); Alkaline Phosphatase 71 U/L (39-117); Anion Gap 11 (12-20); Aspartate Amino Transferase 20 U/L (5-37); Bilirubin Total 0.2 mg/dL (0.0-1.0); Blood Urea Nitrogen 21 mg/dL (9-16); Carbon Dioxide 24 mmol/L (22-29); Chloride 105 mmol/L (96-108); Estimated Glomerular Filt Rate 55; Glucose Random 92 mg/dL (60-115); Sodium 136 mmol/L (135-145)
[2020-06-05 14:20] LABS: Calcium 7.8 mg/dL (8.4-10.2); Total Protein 4.8 g/dL (6.5-8.0)
[2020-06-05 14:33] LABS: Free T4 (Free Thyroxine) 0.64 ng/dL (0.71-1.85); Thyroid Stimulating Hormone 1.95 uIU/mL (0.32-4.0)
[2020-06-05 14:57] LABS: Vitamin B12 186 pg/mL (200-900)
[2020-06-07 01:46] LABS: Triiodothyronine T3 Free 2.6 pg/mL (2.3-4.2)
== END 2020-06-05 10:47 | disposition home or self-care (01) ==
LOC: HO.10HDL 10:46
PROVIDERS: Visit Provider Internal Medicine
DX: D64.9 Anemia, unspecified (principal); E11.9 Type 2 diabetes mellitus without complications; E03.9 Hypothyroidism, unspecified; I10 Essential (primary) hypertension
CPT/HCPCS: 36415; 80053; 82607; 83036; 84439; 84443; 84481; 85025; 86140

== ENCOUNTER 2020-06-27 11:19 | Inpatient (IN) | payer MEDICARE, MEDICAID, SELFPAY ==
[2020-06-27 11:24] VITALS: BP 106/83; PULSE 100; RESP 20; TEMP 36.9; O2SAT 97; BMI 42.0
--- NOTE | 2020-06-27 11:53 | ECG_ITS ---
Test Reason : EDEMA Blood Pressure : / mmHG Vent. Rate : 098 BPM Atrial Rate : 098 BPM P-R Int : 172 ms QRS Dur : 094 ms QT Int : 362 ms P-R-T Axes : 044 025 018 degrees QTc Int : 462 ms Artifact in tracing Sinus rhythm Normal EKG When compared with ECG of 23-APR-2020 13:31, Vent. rate has increased BY 32 BPM Referred By: Shanti Mora Electronically Signed By:RUT CUELLO
--- NOTE | 2020-06-27 11:53 | XR_ITS ---
EXAMINATION: XR CHEST CLINICAL INFORMATION: SOB and CHF. COMPARISON: Chest 04/23/2020 TECHNIQUE: 2 views of the chest were obtained. FINDINGS: The lungs are well-expanded with blunting of left CP angle likely pleural effusion or pleural thickening. No consolidation or pulmonary nodule seen. The heart size and pulmonary vascularity is normal. There is mild spondylosis dorsal spine. No lytic process. XR/XR chest 2V IMPRESSION: Small left pleural effusion. The lungs are otherwise clear.
--- NOTE | 2020-06-27 11:54 | US_ITS ---
EXAMINATION: US VENOUS ULTRASOUND WITH DOPPLER LOWER EXTREMITY, BILATERAL CLINICAL INFORMATION: Bilateral lower extremity edema. COMPARISON: None TECHNIQUE: Ultrasound of the deep veins is performed from the hip to the calf with compression sonography and color and pulse Doppler assessment. Spectral analysis with color-flow imaging is performed. FINDINGS: RIGHT: There is normal venous compression and respiratory variation and augmented flow. The visualized common femoral vein, superficial femoral vein, profunda femoral vein, popliteal vein, and the trifurcation region shows no evidence of deep venous thrombosis. There is no significant popliteal fossa cyst. There is a 6 right groin lymph node measuring 5.5 x 1.2 x 2.7 cm. There is bilateral lower leg and mid thigh edema. LEFT: There is normal venous compression and respiratory variation and augmented flow. The visualized common femoral vein, superficial femoral vein, profunda femoral vein, popliteal vein, and the trifurcation region shows no evidence of deep venous thrombosis. There is no significant popliteal fossa cyst. There is a left groin lymph node measuring 3.9 x 1.2 x 2.6 cm.. If the patient's symptoms persist, followup ultrasound in 5 days 7 days might be of value to exclude proximal propagation from a non-visualized calf vein. US/US venous duplex LE BI IMPRESSION: No DVT demonstrated in the bilateral lower extremity. Bilateral lymph nodes noted.
--- NOTE | 2020-06-27 11:58 | ED.SOB ---
HPI - SOB/Dyspnea General Chief Complaint: Dyspnea Stated Complaint: Edema Time Seen by Provider: 06/27/20 11:47 Source: patient Mode of arrival: ambulatory History of Present Illness HPI Narrative: 64-year-old male with a past medical history of CHF, DM, HLD, HTN, Hypothyroid, sent in by PCP Dr. Medrano for increased weight gain, exertional SOB, bilateral LE edema, and abdominal distension, which patient reports has been worsening x months. Of note patient with recent admission in April for similar symptoms, treated with IV Lasix, was supposed to have Nephrology/Cardiology follow-up. Reports RLE weeping. Denies cough, chest pain, fever, chills, abdominal pain, N/V MD elicited complaint: shortness of breath Related Data Home Medications Medication Instructions Recorded Confirmed Januvia 100 mg PO DAILY 04/23/20 06/27/20 glipizide 10 mg PO DAILY 04/23/20 06/27/20 levothyroxine 50 mcg PO DAILY 04/23/20 04/23/20 metformin 1,000 mg PO BID 04/23/20 04/23/20 simvastatin 40 mg PO BEDTIME 04/23/20 04/23/20 furosemide 20 mg PO DAILY 06/27/20 06/27/20 Previous Rx's Medication Instructions Recorded amlodipine 5 mg PO DAILY #30 tab 04/26/20 lisinopril 40 mg PO DAILY #30 tab 04/26/20 torsemide 40 mg PO BID #120 tab 04/26/20 Allergies Allergy/AdvReac Type Severity Reaction Status Date / Time Penicillins Allergy Unknown UNKWN Verified 04/23/20 13:49 Review of Systems Review of Systems: Constitutional: +Weight gain, No Fever, No Chills, No Fatigue, No Malaise Cardiovascular: No Chest Pain, + SOB, + Dyspnea on Exertion, + Orthopnea, + Edema, No Palpitations Respiratory: No Cough, No Sputum Gastrointestinal: No Nausea, No Vomiting, No Diarrhea, + Abdominal distention Genitourinary: No irregular bleeding, No Dysuria, No Urinary Frequency, No Hematuria Musculoskeletal: No joint pain, No Myalgias, No Joint Swelling Skin: No Skin Lesions, No rash Yes all other systems are reviewed and are negative PMFSH Past Medical History Attestation statement: The following information was validated with the patient. Medical History CHF (congestive heart failure), NYHA class I Diabetes 1.5, managed as type 2 Diverticulosis Hiatal hernia History of small bowel obstruction Hyperlipidemia Hypertension Hypothyroidism Social History Social History Household Members: None Housing: Apartment Alcohol intake: former Smoking Status: Former smoker Smoked in Last 30 Days: No Use of substances other than those prescribed or required for medical reasons: No Advance Directives: Yes Advance Directives on File: Yes Advance Directives Date on File: 05/01/20 service: No Current occupational status: disabled Physical Exam Vital Signs: Vital Signs: Last Vital Signs Temp 98.4 F 06/27/20 11:24 Pulse 85 06/27/20 12:14 Resp 22 H 06/27/20 12:14 BP 167/94 H 06/27/20 12:14 Pulse Ox 99 06/27/20 12:14 Body Mass Index 42.0 Const: General: cooperative and healthy appearing Orientation/consciousness: patient oriented x3 Limitations: no limitations HENMT: Head: Yes normal to inspection Ears: hearing grossly normal bilaterally General nose exam: Normal external nose present Face and sinus: Yes normal facial exam Eyes: General: appearance normal, both eyes and all related structures EOM: EOMs intact bilaterally Neck: Neck: Yes normal visual inspection Resp: Effort & Inspection: normal respiratory effort Auscultation: clear to auscultation bilaterally, no crackles and no wheezes Cardio: Rate: regular rate Heart sounds: S1 normal heart sound present and S2 normal heart sound present GI: Other: Distended and tense, nontender Inspection: Yes normal to inspection Palpation (GI): Firmness to palpation present (GI), nontender, no guarding and not rigid Skin: Rashes: no rashes Neuro: General: patient oriented x3 Gait exam (Neuro): Normal gait present Extrem: Other: +pitting bilateral lower extremity edema right greater than left. RLE weeping, no active cellulitis, no warmth. NV intact General: Yes normal to inspection Course Course Course Narrative: -1314--mild MED likely from fluid overload, BNP 58 > chronically low likely, falsely from obesity -CXR with small left pleural effusion. Lungs otherwise clear MDM - SOB/Dyspnea MDM Narrative Medical decision making narrative: 64-year-old male with a past medical history of CHF, DM, HLD, HTN, Hypothyroid, sent in by PCP Dr. Medrano for increased weight gain, exertional SOB, bilateral LE edema, and abdominal distension, which patient reports has been worsening x months. On exam VSS, NAD/well-appearing, lungs CTA, notable abdominal distension and bilateral LE edema right greater than left. Concern for CHF/fluid overload vs DVT. No active cellulitis. Low concern for intra-abdominal pathology or ACS. Likely anasarca Plan: EKG, labs, CXR, venous duplex, anticipated admission Lab Data Result diagrams: 06/27/20 12:06/27/20 12: Labs: Lab Results 06/27/20 06/27/20 06/27/20 Range/Units 12:00 12: 12:01 WBC 8.2 (4.8-10.8) X10*3/uL RBC 4.27 L (4.60-5.80) X10*6/uL Hgb 13.4 L (14.0-18.0) g/dl Hct 39.4 L (42-52) % MCV 92.3 (80-98) fL MCH 31.4 (27.0-33.0) pg MCHC 34.0 (31.0-36.0) g/dl RDW 13.4 (11.0-16.0) % Plt Count 363 (160-400) X10*3/uL MPV 9.0 L (9.4-12.4) fL Immature Gran % (Auto) 0.4 (0.0-0.4) % Neut % (Auto) 69.7 (45-73) % Lymph % (Auto) 18.0 L (20-40) % Weber % (Auto) 6.6 (2-11) % Eos % (Auto) 4.3 H (0-4) % Baso % (Auto) 1.0 (0-2) % Lymph # (Auto) 1.5 (1.2-4.9) X10*3/uL Weber # (Auto) 0.5 (0.1-1.2) X10*3/uL Eos # (Auto) 0.4 (0.0-0.4) X10*3/uL Baso # (Auto) 0.1 (0.0-0.2) X10*3/uL Abs Immat Gran (auto) 0.03 (0.00-0.03) X10*3/uL Absolute Neuts (auto) 5.7 (2.0-8.3) X10*3/uL Absolute Nucleated RBC 0.000 (0.0-0.012) X10*3/uL Nucleated RBC % (auto) 0.0 (0.0-0.2) /100WBC Hold Blue Top Sodium 136 (135-145) mmol/L Potassium 4.0 (3.3-5.1) mmol/l Chloride 107 (96-108) mmol/L Carbon Dioxide 19 L (22-29) mmol/L Anion Gap 14 (12-20) BUN 22 H (9-16) mg/dL Creatinine 1.44 H (0.5-1.4) mg/dL Estim Creat Clear Calc 73.1 Estimated GFR 49 Random Glucose 82 (60-115) mg/dL Calcium 7.7 L (8.4-10.2) mg/dL Total Bilirubin 0.4 (0.0-1.0) mg/dL Direct Bilirubin 0.2 (0.0-0.5) mg/dL AST 29 D (5-37) U/L ALT 16 (0-40) U/L Alkaline Phosphatase 68 (39-117) U/L B-Natriuretic Peptide (<100) pg/mL Total Protein 4.6 L (6.5-8.0) g/dL Albumin 1.8 L (3.5-5.0) g/dL COVID-19 ([facility]) Negative (Negative) COVID-19 Clin Com See Note 06/27/20 06/27/20 Range/Units 12:01 12:01 WBC (4.8-10.8) X10*3/uL RBC (4.60-5.80) X10*6/uL Hgb (14.0-18.0) g/dl Hct (42-52) % MCV (80-98) fL MCH (27.0-33.0) pg MCHC (31.0-36.0) g/dl RDW (11.0-16.0) % Plt Count (160-400) X10*3/uL MPV (9.4-12.4) fL Immature Gran % (Auto) (0.0-0.4) % Neut % (Auto) (45-73) % Lymph % (Auto) (20-40) % Weber % (Auto) (2-11) % Eos % (Auto) (0-4) % Baso % (Auto) (0-2) % Lymph # (Auto) (1.2-4.9) X10*3/uL Weber # (Auto) (0.1-1.2) X10*3/uL Eos # (Auto) (0.0-0.4) X10*3/uL Baso # (Auto) (0.0-0.2) X10*3/uL Abs Immat Gran (auto) (0.00-0.03) X10*3/uL Absolute Neuts (auto) (2.0-8.3) X10*3/uL Absolute Nucleated RBC (0.0-0.012) X10*3/uL Nucleated RBC % (auto) (0.0-0.2) /100WBC Hold Blue Top SEE NOTE Sodium (135-145) mmol/L Potassium (3.3-5.1) mmol/l Chloride (96-108) mmol/L Carbon Dioxide (22-29) mmol/L Anion Gap (12-20) BUN (9-16) mg/dL Creatinine (0.5-1.4) mg/dL Estim Creat Clear Calc Estimated GFR Random Glucose (60-115) mg/dL Calcium (8.4-10.2) mg/dL Total Bilirubin (0.0-1.0) mg/dL Direct Bilirubin (0.0-0.5) mg/dL AST (5-37) U/L ALT (0-40) U/L Alkaline Phosphatase (39-117) U/L B-Natriuretic Peptide 58 (<100) pg/mL Total Protein (6.5-8.0) g/dL Albumin (3.5-5.0) g/dL COVID-19 ([facility]) (Negative) COVID-19 Clin Com Discharge Plan Discharge Clinical Impression: Congestive heart failure Qualifiers: Heart failure type: unspecified Heart failure chronicity: unspecified Qualified Code(s): I50.9 - Heart failure, unspecified Patient Disposition: Admitted As Inpatient
[2020-06-27 12:06] LABS: MANUAL DIFF FLAG NO
[2020-06-27 12:10] LABS: Basophils Absolute Auto 0.1 X10*3/uL (0.0-0.2); Eosinophils Absolute Auto 0.4 X10*3/uL (0.0-0.4); Eosinophils Percent Auto 4.3 % (0-4); Hematocrit 39.4 % (42-52); Hemoglobin 13.4 g/dl (14.0-18.0); Imm Gran Abs Auto 0.03 X10*3/uL (0.00-0.03); Imm Gran Pct Auto 0.4 % (0.0-0.4); Lymphocytes Absolute Auto 1.5 X10*3/uL (1.2-4.9); Mean Corpuscular Hemoglobin 31.4 pg (27.0-33.0); Mean Corpuscular Volume 92.3 fL (80-98); Monocytes Absolute Auto 0.5 X10*3/uL (0.1-1.2); Monocytes Percent Auto 6.6 % (2-11); Neutrophils Absolute Auto 5.7 X10*3/uL (2.0-8.3); Neutrophils Percent Auto 69.7 % (45-73); Platelet Count 363 X10*3/uL (160-400); Red Blood Count 4.27 X10*6/uL (4.60-5.80); Red Cell Distribution Width 13.4 % (11.0-16.0); White Blood Count 8.2 X10*3/uL (4.8-10.8)
[2020-06-27 12:14] VITALS: BP 167/94; PULSE 85; RESP 22; O2SAT 99
[2020-06-27 12:36] LABS: COVID-19 Test Negative (Negative); IDNOW Serial# 9DD0AD1C
[2020-06-27 12:39] LABS: Alanine Aminotransferase 16 U/L (0-40); Alkaline Phosphatase 68 U/L (39-117); Anion Gap 14 (12-20); Aspartate Amino Transferase 29 U/L (5-37); Blood Urea Nitrogen 22 mg/dL (9-16); Carbon Dioxide 19 mmol/L (22-29); Chloride 107 mmol/L (96-108); Creatinine Clr Calc Pharmacy 73.1; Estimated Glomerular Filt Rate 49; Glucose Random 82 mg/dL (60-115); Sodium 136 mmol/L (135-145); Total Protein 4.6 g/dL (6.5-8.0)
[2020-06-27 12:40] LABS: B Type Natriuretic Peptide 58 pg/mL (<100)
[2020-06-27] MEDS: Furosemide 40 MG/4 ML VIAL IVPUSH ×2 (12:52→18:56)
--- NOTE | 2020-06-27 13:00 | PC.NURSE ---
U/S at bedside at this time for right leg
[2020-06-27 13:16] LABS: Albumin Level 1.8 g/dL (3.5-5.0); Calcium 7.7 mg/dL (8.4-10.2)
[2020-06-27 13:37] LABS: Bilirubin Direct 0.2 mg/dL (0.0-0.5); Bilirubin Total 0.4 mg/dL (0.0-1.0)
[2020-06-27 14:00] VITALS: BP 147/81; PULSE 86; RESP 16; O2SAT 99
--- NOTE | 2020-06-27 15:22 | PM.IMHP ---
History of Present Illness Date of Service: 06/27/20 Chief Complaint: Leg edema This is a 64-year-old male with history of diabetes who presents to the emergency department with leg swelling. He was admitted to the hospital in April with similar complaints. At that time he was diagnosed to have nephrotic syndrome. He was also noted to have elevated blood pressure. Adjustments were made to his medications including starting Norvasc increasing dose of lisinopril from 2.5 mg to 40 mg daily and starting torsemide 40 mg b.i.d. The plan was for him to have outpatient kidney biopsy. He has not yet had a biopsy. After discussion with the pharmacist it is unclear if the patient picked up the the medication that was prescribed on discharge and has been taking his old dose of lisinopril. Furosemide was filled in May. He does not know the names or indications for any of his medication. In any event he reports increasing leg edema, dyspnea on exertion. He reports ambulating has become more difficult due to the weight of his legs. He did follow up with Cardiology after discharge. Echocardiogram was unremarkable. He also had unremarkable stress test. Who today lab work revealed increasing creatinine with a creatinine of 1.44, the remainder of his lab work was unremarkable. He received a dose of IV Lasix and a decision was made to admit him for further management. Review of Systems Review of Systems: Yes all other systems are reviewed and are negative Cardiovascular: Cardiovascular: Reports edema, Reports leg edema and Reports dyspnea on exertion Respiratory: Respiratory: Denies cough and Reports dyspnea on exertion Gastrointestinal: Gastrointestinal: Denies abdominal pain COUNTS INCLUDE 234 BEDS AT THE [facility] Medical History (Updated 06/27/20 @ 15:32 by CHRISTIAN Thompson) CHF (congestive heart failure), NYHA class I Diabetes 1.5, managed as type 2 Diverticulosis Hiatal hernia History of small bowel obstruction Hyperlipidemia Hypertension Hypothyroidism Nephrotic syndrome Functional capacity: independent ambulation Family history: reviewed and not pertinent Social History Household Members: None Housing: Apartment Alcohol intake: former Smoking Status: Former smoker Smoked in Last 30 Days: No Use of substances other than those prescribed or required for medical reasons: No Advance Directives: Yes Advance Directives on File: Yes Advance Directives Date on File: 05/01/20 service: No Current occupational status: disabled Meds Allergies Allergy/AdvReac Type Severity Reaction Status Date / Time Penicillins Allergy Unknown UNKWN Verified 04/23/20 13:49 Home Medications Medication Instructions Recorded Confirmed Type Januvia 100 mg PO DAILY 04/23/20 06/27/20 History glipizide 10 mg PO DAILY 04/23/20 06/27/20 History metformin 1,000 mg PO BID 04/23/20 06/27/20 History simvastatin 40 mg PO BEDTIME 04/23/20 06/27/20 History furosemide 20 mg PO DAILY 06/27/20 06/27/20 History levothyroxine 75 mcg PO DAILY 06/27/20 06/27/20 History lisinopril 2.5 mg PO DAILY 06/27/20 06/27/20 History metolazone 2.5 mg PO DAILY 06/27/20 06/27/20 History Physical Exam Vital Signs and Narrative: Vital Signs: Last Vital Signs Temp 98.4 F 06/27/20 11:24 Pulse 86 06/27/20 14:00 Resp 16 06/27/20 14:00 BP 147/81 H 06/27/20 14:00 Pulse Ox 99 06/27/20 14:00 Body Mass Index 42.0 Const: Nutritional Appearance: well nourished Orientation/consciousness: patient oriented x3 HENMT: Head: Yes normocephalic and Yes atraumatic Eyes: Sclerae: sclerae normal Chest: Chest palpation & inspection: normal inspection of the chest Resp: Effort & Inspection: normal respiratory effort, able to speak in complete sentences and no respiratory distress Auscultation: diminished lung sounds bilateral (bases) Cardio: Rate: regular rate Rhythm: regular rhythm Heart sounds: Murmur heart sound present systolic GI: Palpation (GI): Soft to palpation and nontender Skin: General skin exam: no rashes or lesions noted Neuro: General: patient oriented x3 Cranial nerves: Yes CN's II-XII intact bilaterally and Yes Bilaterally intact EOM present Extrem: Other: 3+ edema b/l lower extremitites Results Labs CBC and Chem 7: 06/27/20 12:01 06/27/20 12:01 Labs: Laboratory Results - last 24 hr 06/27/20 06/27/20 06/27/20 12:00 12:01 12:01 MCV 92.3 MCH 31.4 MCHC 34.0 RDW 13.4 Plt Count 363 MPV 9.0 L Immature Gran % (Auto) 0.4 Neut % (Auto) 69.7 Lymph % (Auto) 18.0 L George % (Auto) 6.6 Eos % (Auto) 4.3 H Baso % (Auto) 1.0 Lymph # (Auto) 1.5 George # (Auto) 0.5 Eos # (Auto) 0.4 Baso # (Auto) 0.1 Abs Immat Gran (auto) 0.03 Absolute Neuts (auto) 5.7 Absolute Nucleated RBC 0.000 Nucleated RBC % (auto) 0.0 Hold Blue Top Anion Gap 14 Estim Creat Clear Calc 73.1 Estimated GFR 49 Random Glucose 82 Calcium 7.7 L Total Bilirubin 0.4 Direct Bilirubin 0.2 AST 29 D ALT 16 Alkaline Phosphatase 68 B-Natriuretic Peptide Total Protein 4.6 L Albumin 1.8 L COVID-19 ([facility]) Negative COVID-19 Clin Com See Note 06/27/20 06/27/20 12:01 12:01 MCV MCH MCHC RDW Plt Count MPV Immature Gran % (Auto) Neut % (Auto) Lymph % (Auto) George % (Auto) Eos % (Auto) Baso % (Auto) Lymph # (Auto) George # (Auto) Eos # (Auto) Baso # (Auto) Abs Immat Gran (auto) Absolute Neuts (auto) Absolute Nucleated RBC Nucleated RBC % (auto) Hold Blue Top SEE NOTE Anion Gap Estim Creat Clear Calc Estimated GFR Random Glucose Calcium Total Bilirubin Direct Bilirubin AST ALT Alkaline Phosphatase B-Natriuretic Peptide 58 Total Protein Albumin COVID-19 ([facility]) COVID-19 Clin Com Imaging Radiologist's Impressions: Impressions Chest X-Ray 06/27/20 11:53 IMPRESSION: Small left pleural effusion. The lungs are otherwise clear. Venous Duplex 06/27/20 11:54 IMPRESSION: No DVT demonstrated in the bilateral lower extremity. Bilateral lymph nodes noted. Assessment and Plan (1) Nephrotic syndrome: Status: Acute This is a 64-year-old male with history of diabetes, hypertension, hypothyroidism, admission in April for fluid overload found to be related to nephrotic syndrome presenting with increasing leg edema Fluid overload in setting of Nephrotic syndrome Outpatient echo, stress test negative Unclear if patient is taking medication properly Has not followed up for kidney biopsy -IV Lasix, continue metolazone -nephrology consult -? Inpatient kidney biopsy MED Mild increase in creatinine to 1.44 Continue to monitor renal function closely, will need diuretics for fluid overload -hold lisinopril Hypertension -hold lisinopril -continue Norvasc Diabetes -hold metformin, glipizide -continue Januvia -SSI, POC, ADA diet Hypothyroidism Continue Synthroid HLD -Continue statin Dispo - patient does not have clear understanding of medical conditions/medications and would likely benefit from VNA upon discharge DVT prophylaxis-heparin (can be held if scheduled for kidney biopsy as inpatient) Code status-full code This case was discussed with Dr. Neves
[2020-06-27 16:00] VITALS: BP 158/53; PULSE 78; RESP 18; TEMP 36.9; O2SAT 98
--- NOTE | 2020-06-27 17:07 | PM.EVENT ---
Event Note Date of Service: 06/27/20 Event Note: Patient seen and examined with ACP chart reviewed This is a 64-year-old gentleman recently discharged from [facility] after being evaluated for edema and weight gain patient underwent extensive workup and no cardiac issues were wound causing anasarca patient echo was stable with EF 60-65% patient was evaluated by Nephrology for protein urea and was found to have nephrotic syndrome patient was recommended outpatient follow-up with Nephrology and was placed on diuretics and Ced inhibitors however it seems that patient has not seen using the medications as prescribed and he is not aware of his disease patient return back to [facility] due to significant edema associated with shortness of breath and difficulty in ambulation patient will be admitted and will be placed on diuretics will re-consult Nephrology On examination patient awake alert in no distress Lungs clear to auscultation with diminished breath sound at bases Heart regular with systolic murmur Extremities significant edema with weeping Neuro nonfocal Assessment and plan Generalized edema likely due to underlying nephrotic syndrome patient will be admitted on IV diuretics will follow renal function while being diuresed will consult Nephrology for possible renal biopsy in-house
[2020-06-27 18:00] VITALS: BP 155/80; PULSE 90; RESP 18; TEMP 36.9; O2SAT 98
[2020-06-27 18:26] VITALS: BP 165/77; PULSE 96; RESP 18; TEMP 36.9; O2SAT 98
[2020-06-27] MEDS: 0.9 % Sodium Chloride Flush 3 ML SYRINGE IVFLUSH ×2 (18:57→23:59)
[2020-06-27] MEDS: Heparin Sodium,Porcine 5,000 UNIT/ML VIAL 5000 UNIT SUBCUT (18:57)
[2020-06-27 20:50] LABS: Glucose, Whole Blood 102 mg/dL (60-115)
[2020-06-27 21:01] LABS: Glucose, Whole Blood 111 mg/dL (60-115)
[2020-06-27] MEDS: Atorvastatin Calcium 20 MG TABLET PO (21:16)
--- NOTE | 2020-06-27 22:44 | PC.NURSE ---
Pt to floor from ED. A&O and able to answer admission questions, no c/o n/v, pain. Redness on bilateral lower extremities, and 3+ edema. Pt educated on medications given and instructed to urinate in urinal so we can keep strict I/Os since he is receiving lasix. Pt understood.
[2020-06-28] VITALS: BP 140/72; PULSE 88; RESP 20; TEMP 36.6; O2SAT 98
[2020-06-28 04:00] VITALS: BP 139/74; PULSE 78; RESP 20; TEMP 36.6; O2SAT 98
[2020-06-28] MEDS: Levothyroxine Sodium 75 MCG TABLET PO (06:23)
[2020-06-28] MEDS: Heparin Sodium,Porcine 5,000 UNIT/ML VIAL 5000 UNIT SUBCUT ×2 (06:24→17:17)
[2020-06-28 06:25] LABS: MANUAL DIFF FLAG NO
[2020-06-28 06:32] LABS: Basophils Absolute Auto 0.1 X10*3/uL (0.0-0.2); Eosinophils Absolute Auto 0.4 X10*3/uL (0.0-0.4); Eosinophils Percent Auto 6.8 % (0-4); Hemoglobin 12.3 g/dl (14.0-18.0); Imm Gran Abs Auto 0.03 X10*3/uL (0.00-0.03); Imm Gran Pct Auto 0.5 % (0.0-0.4); Lymphocytes Absolute Auto 1.8 X10*3/uL (1.2-4.9); Lymphocytes Percent Auto 29.1 % (20-40); Mean Corpuscular HGB Conc 34.2 g/dl (31.0-36.0); Mean Corpuscular Hemoglobin 31.9 pg (27.0-33.0); Mean Corpuscular Volume 93.3 fL (80-98); Mean Platelet Volume 9.4 fL (9.4-12.4); Monocytes Absolute Auto 0.5 X10*3/uL (0.1-1.2); Monocytes Percent Auto 8.8 % (2-11); Neutrophils Absolute Auto 3.3 X10*3/uL (2.0-8.3); Neutrophils Percent Auto 53.8 % (45-73); Platelet Count 351 X10*3/uL (160-400); Red Blood Count 3.86 X10*6/uL (4.60-5.80); Red Cell Distribution Width 13.5 % (11.0-16.0); White Blood Count 6.1 X10*3/uL (4.8-10.8)
[2020-06-28 06:47] VITALS: BMI 42.0
[2020-06-28 07:37] LABS: Anion Gap 14 (12-20); Blood Urea Nitrogen 23 mg/dL (9-16); Calcium 7.5 mg/dL (8.4-10.2); Carbon Dioxide 20 mmol/L (22-29); Chloride 107 mmol/L (96-108); Creatinine Clr Calc Pharmacy 75.3; Estimated Glomerular Filt Rate 51; Glucose Random 76 mg/dL (60-115); Potassium 3.8 mmol/l (3.3-5.1); Sodium 137 mmol/L (135-145)
[2020-06-28 08:00] VITALS: BP 144/79; PULSE 85; RESP 18; TEMP 36.9; O2SAT 94
[2020-06-28 08:28] LABS: Glucose, Whole Blood 86 mg/dL (60-115)
[2020-06-28] MEDS: SITagliptin Phosphate 100 MG TABLET PO (09:15)
[2020-06-28] MEDS: amLODIPine Besylate 5 MG TABLET PO (09:15)
[2020-06-28] MEDS: metOLazone 2.5 MG TABLET PO (09:15)
[2020-06-28] MEDS: Furosemide 40 MG/4 ML VIAL IVPUSH ×2 (09:15→17:17)
[2020-06-28] MEDS: 0.9 % Sodium Chloride Flush 3 ML SYRINGE IVFLUSH ×3 (09:15→21:04)
--- NOTE | 2020-06-28 09:36 | P.PNNP_ITS ---
Subjective Subjective Date of Service: 06/28/20 Physical Exam Vital Signs: Vital Signs: Last Vital Signs Temp 98.4 F 06/28/20 08:00 Pulse 85 06/28/20 08:00 Resp 18 06/28/20 08:00 BP 144/79 H 06/28/20 08:00 Pulse Ox 94 06/28/20 08:00 Body Mass Index 42.0 Objective Data Labs CBC & Chem 7: 06/28/20 05:21 06/28/20 05:21 Labs: Laboratory Results - last 24 hr 06/27/20 06/27/20 06/27/20 12:00 12:01 12:01 WBC 8.2 RBC 4.27 L Hgb 13.4 L Hct 39.4 L MCV 92.3 MCH 31.4 MCHC 34.0 RDW 13.4 Plt Count 363 MPV 9.0 L Immature Gran % (Auto) 0.4 Neut % (Auto) 69.7 Lymph % (Auto) 18.0 L Gordon % (Auto) 6.6 Eos % (Auto) 4.3 H Baso % (Auto) 1.0 Lymph # (Auto) 1.5 Gordon # (Auto) 0.5 Eos # (Auto) 0.4 Baso # (Auto) 0.1 Abs Immat Gran (auto) 0.03 Absolute Neuts (auto) 5.7 Absolute Nucleated RBC 0.000 Nucleated RBC % (auto) 0.0 Hold Blue Top Sodium 136 Potassium 4.0 Chloride 107 Carbon Dioxide 19 L Anion Gap 14 BUN 22 H Creatinine 1.44 H Estim Creat Clear Calc 73.1 Estimated GFR 49 POC Glucose Random Glucose 82 Calcium 7.7 L Total Bilirubin 0.4 Direct Bilirubin 0.2 AST 29 D ALT 16 Alkaline Phosphatase 68 B-Natriuretic Peptide Total Protein 4.6 L Albumin 1.8 L COVID-19 ([facility]) Negative COVID-19 Clin Com See Note 06/27/20 06/27/20 06/27/20 12:01 12:01 18:56 WBC RBC Hgb Hct MCV MCH MCHC RDW Plt Count MPV Immature Gran % (Auto) Neut % (Auto) Lymph % (Auto) Gordon % (Auto) Eos % (Auto) Baso % (Auto) Lymph # (Auto) Gordon # (Auto) Eos # (Auto) Baso # (Auto) Abs Immat Gran (auto) Absolute Neuts (auto) Absolute Nucleated RBC Nucleated RBC % (auto) Hold Blue Top SEE NOTE Sodium Potassium Chloride Carbon Dioxide Anion Gap BUN Creatinine Estim Creat Clear Calc Estimated GFR POC Glucose 111 Random Glucose Calcium Total Bilirubin Direct Bilirubin AST ALT Alkaline Phosphatase B-Natriuretic Peptide 58 Total Protein Albumin COVID-19 ([facility]) COVID-19 [employer] 06/27/20 06/28/20 06/28/20 20:46 05:21 05:21 WBC 6.1 RBC 3.86 L Hgb 12.3 L Hct 36.0 L MCV 93.3 MCH 31.9 MCHC 34.2 RDW 13.5 Plt Count 351 MPV 9.4 Immature Gran % (Auto) 0.5 H Neut % (Auto) 53.8 Lymph % (Auto) 29.1 Gordon % (Auto) 8.8 Eos % (Auto) 6.8 H Baso % (Auto) 1.0 Lymph # (Auto) 1.8 Gordon # (Auto) 0.5 Eos # (Auto) 0.4 Baso # (Auto) 0.1 Abs Immat Gran (auto) 0.03 Absolute Neuts (auto) 3.3 Absolute Nucleated RBC 0.000 Nucleated RBC % (auto) 0.0 Hold Blue Top Sodium 137 Potassium 3.8 Chloride 107 Carbon Dioxide 20 L Anion Gap 14 BUN 23 H Creatinine 1.40 Estim Creat Clear Calc 75.3 Estimated GFR 51 POC Glucose 102 Random Glucose 76 Calcium 7.5 L Total Bilirubin Direct Bilirubin AST ALT Alkaline Phosphatase B-Natriuretic Peptide Total Protein Albumin COVID-19 ([facility]) COVID-19 [employer] 06/28/20 08:23 WBC RBC Hgb Hct MCV MCH MCHC RDW Plt Count MPV Immature Gran % (Auto) Neut % (Auto) Lymph % (Auto) Gordon % (Auto) Eos % (Auto) Baso % (Auto) Lymph # (Auto) Gordon # (Auto) Eos # (Auto) Baso # (Auto) Abs Immat Gran (auto) Absolute Neuts (auto) Absolute Nucleated RBC Nucleated RBC % (auto) Hold Blue Top Sodium Potassium Chloride Carbon Dioxide Anion Gap BUN Creatinine Estim Creat Clear Calc Estimated GFR POC Glucose 86 Random Glucose Calcium Total Bilirubin Direct Bilirubin AST ALT Alkaline Phosphatase B-Natriuretic Peptide Total Protein Albumin COVID-19 ([facility]) COVID-19 Clin Com Assessment & Plan Assessment and plan (1) Nephrotic syndrome: Problem details: Pt seen consult dictated AGree with diuretic regimen Keep O > I by 1- 2L per 24 hrs Out pt kidney biopsy scheduled for 07/02/2020 Consult dictated Thanks Status: Acute Time Spent With Patient Time: Total time spent is greater than 50% in coordination of care (as documented) at patient's floor/unit and/or counseling patient:
[2020-06-28 11:22] VITALS: BP 129/74; PULSE 85; RESP 18; TEMP 36.6; O2SAT 97
--- NOTE | 2020-06-28 11:40 | MHC.CM.PN ---
CM met with patient at the bedside who reports he is independent and lives alone. Patient does not have a HCP and declines filling one out after educated. Discussed discharge plan, home with NA services, referral made via [employer]scripts. CM will continue to follow patient for discharge needs.
--- NOTE | 2020-06-28 11:50 | P.CDIC_ITS ---
CDI Concurrent Query Service Date: 06/28/20 Documentation Clarification: Please clarify if you are treating a proba ble/suspected/likely or confirmed: Consistency and clarity of documentation: Chronic diastolic and/or systolic Congestive heart failure (Txt, Rule out, POA) Acute on chronic diastolic and/or systolic Congestive heart failure Please specify if known Provider Response: Other Other Diagnosis: Chronic diastolic CHF PLEASE DO NOT DELETE/MODIFY EXISTING CONTENT Additional information is needed in order to code to the highest accuracy and appropriate Severity of Illness (SOI). Please clarify the information noted below in your progress notes and discharge summary. Risk Factors/Clinical Indicators/Treatments PMH Congestive heart failure Edema, BNP 58 chronically low likely. Nephrotic syndrome ED: CHF, fluid overload, concern for CHF, Lasix. H&P: CHF, NYHA class I History of EF 60-65% CDS: Deborah Kilpatrick CCS, CDIS Contact Number: [phone] Please Review the information above and exercise your independent professional judgment in responding to the query. If you concur, pleas document in the PROGRESS NOTES and DISCHARGE SUMMARY. If you do not agree with the query, please document in the query above. THIS QUERY IS PART OF THE PERMANENT MEDICAL RECORD
[2020-06-28 11:53] LABS: Glucose, Whole Blood 124 mg/dL (60-115)
[2020-06-28 13:51] VITALS: BMI 42.0
[2020-06-28 15:23] VITALS: BP 135/79; PULSE 90; RESP 20; TEMP 36.8; O2SAT 97
--- NOTE | 2020-06-28 16:49 | HO.PM.IMPN ---
Subjective Subjective Date of Service: 06/28/20 Interval History: the patient was seen and evaluated this morning Laying in bed, feels comfortable Denies any fever, chills Significant edema in his lower extremities, mild shortness of breath ambulation No reported other overnight events. Systemic review: No fever, chills or weakness No chest pain, palpitation but has significant anemia is lower extremities No shortness of breath or coughing No abdominal pain, nausea or vomiting No urinary symptoms No any rash or wounds Physical Exam Vital Signs: Vital Signs: Last Vital Signs Temp 98.2 F 06/28/20 15:23 Pulse 90 06/28/20 15:23 Resp 20 06/28/20 15:23 BP 135/79 06/28/20 15: Pulse Ox 97 06/28/20 15: Body Mass Index 42.0 Constitutional : Alert, oriented, not in distress Neck : Normal inspection, Supple Cardiovascular : RRR, S1 S2, +3 lower extremity edema bilaterally Respiratory : Good bilateral air entry, bilateral fine basal crackles, wheezes or rhonchi Gastrointestinal: soft, lax, Normal bowel sounds, Non tender Skin : Warm/Dry, No rash Neurological : Alert & oriented x3, No focal deficit Objective Data Current Medications Generic Name Dose Route Start Last Admin Trade Name Freq PRN Reason Stop Dose Admin Acetaminophen 650 mg 06/27/20 17:54 Acetaminophen 325 Mg Tablet PO Q6H PRN Pain, Mild (Pain Scale 1-3) Amlodipine Besylate 5 mg 06/28/20 09:00 06/28/20 09:15 Amlodipine Besylate 5 Mg Tablet PO 5 mg DAILY ROSALIA Administration Protocol Atorvastatin Calcium 20 mg 06/27/20 21:00 06/27/20 21:16 Atorvastatin Calcium 20 Mg Tablet PO 20 mg BEDTIME ROSALIA Administration Docusate Sodium 100 mg 06/27/20 17:54 Docusate Sodium 100 Mg Capsule PO DAILY PRN Constipation Furosemide 40 mg 06/27/20 18:00 06/28/20 09:15 Furosemide 40 Mg/4 Ml Vial IVPUSH 40 mg BID@0900,1800 ROSALIA Administration Protocol Heparin Sodium (Porcine) 5,000 unit 06/27/20 17:54 06/28/20 06:24 Heparin Sodium,Porcine 5,000 Unit/Ml Vial SUBCUT 5,000 unit Q12H ROSALIA Administration Insulin Human Lispro 0 unit 06/27/20 17:54 06/28/20 12:18 Insulin Lispro 100 Unit/Ml 3 Ml Vial SUBCUT Not Given QIDACHS [facility] Protocol Levothyroxine Sodium 75 mcg 06/28/20 06:00 06/28/20 06:23 Levothyroxine Sodium 75 Mcg Tablet PO 75 mcg DAILY@0600 ROSALIA Administration Metolazone 2.5 mg 06/28/20 09:00 06/28/20 09:15 Metolazone 2.5 Mg Tablet PO 2.5 mg DAILY ROSALIA Administration Ondansetron HCl 4 mg 06/27/20 17:54 Ondansetron Hcl 4 Mg/2 Ml Vial IVPUSH Q8H PRN Nausea and Vomiting Pharmacy Consult 1 each 06/27/20 11:53 Consult Rx Perform Med Rec MISCELLANE ONCE PRN Consult order Sitagliptin Phosphate 100 mg 06/28/20 09:00 06/28/20 09:15 Sitagliptin Phosphate 100 Mg Tablet PO 100 mg DAILY ROSALIA Administration Sodium Chloride 3 ml 06/27/20 17:54 06/28/20 09:15 0.9 % Sodium Chloride Flush 3 Ml Syringe IVFLUSH 3 ml QSHIFT ROSALIA Administration Labs CBC & Chem 7: 06/28/20 05:21 06/28/20 05:21 Assessment and Plan (1) Nephrotic syndrome: Problem details: Pt seen consult dictated AGree with diuretic regimen Keep O > I by 1- 2L per 24 hrs Out pt kidney biopsy scheduled for 07/02/2020 Consult dictated Thanks Status: Acute (2) Congestive heart failure: Status: Acute (3) Diabetes 1.5, managed as type 2: Status: Acute Assessment and Plan: This is a 64-year-old male with history of diabetes, hypertension, hypothyroidism, admission in April for fluid overload found to be related to nephrotic syndrome presenting with increasing leg edema Fluid overload Secondary to Nephrotic syndrome Outpatient echo, stress test negative It seems the patient is was not taking the medications right away and did not follow-up for kidney biopsy Continue metolazone A continue IV Lasix Nephrology input appreciated Outpatient kidney biopsy on July 02 would likely benefit from VNA upon discharge for medication management Worsening CKD Mild increase in creatinine to 1.4 Continue to monitor renal function hold lisinopril for now Hypertension hold lisinopril continue Norvasc Diabetes hold metformin, glipizide continue Januvia SSI, POC, ADA diet Hypothyroidism Continue Synthroid HLD Continue statin Diastolic CHF Stable disease, not in exacerbation Dry skin To use moisturizing cream twice Daily DVT prophylaxis heparin
--- NOTE | 2020-06-28 18:56 | CONS_ITS ---
DATE OF SERVICE: 06/28/2020 REASON FOR CONSULTATION: I was called to see this patient to assist in the management of patient's renal failure. HISTORY OF PRESENT ILLNESS: To summarize, Milan is known to us. He sees my associate, Dr. Ribeiro in the outpatient setting. He has longstanding history of diabetes mellitus, obesity with massive proteinuria. He probably has underlying diabetic nephropathy, however, nondiabetic causes as needed. He needs to be ruled out. He has been scheduled for an outpatient kidney biopsy on July 02; however, he comes into the hospital because of increasing edema. He has been admitted with worsening edema and currently on IV Lasix. Since admission, he has responded well with the Lasix. His baseline creatinine is around 1.2 mg/dL. At the time of admission, creatinine was 1.44. With some diuresis, the creatinine is still around 1.41 mg/dL and hence this consultation. PAST MEDICAL HISTORY: Ongoing medical problems include history of obesity, diabetes mellitus, chronic kidney disease, nephrotic syndrome most likely due to underlying diabetic nephropathy, hyperlipidemia. PAST SURGICAL HISTORY: Unremarkable. SOCIAL HISTORY: No history of any smoking at present. He has smoked in the past. He has quit smoking. MEDICATIONS: At home include Januvia, glipizide, metformin, simvastatin, Lasix 20 mg daily, lisinopril 2.5 mg, metolazone 2.5 mg, and levothyroxine. According to my office records, he was on torsemide 20 mg 2 tabs twice a day along with lisinopril 40 mg twice a day. REVIEW OF SYSTEMS: Revealed increasing edema, shortness of breath. No chest pain, nausea, or vomiting. No abdominal pain, diarrhea, or constipation. No urinary symptoms. PHYSICAL EXAMINATION: GENERAL: Milan is a middle-aged man, is obese, comfortable, not in any distress. NECK: Supple. No JVD. LUNGS: Air entry equal. No significant rales. HEART: S1, S2 heard. No gallop. ABDOMEN: Obese, soft, nontender. EXTREMITIES: With 3+ edema with some pigmentation. LABORATORY DATA: Hemoglobin 13.4, BUN 22, creatinine 1.44, potassium , CO2 of 19. Urinalysis in the past showed 3+ protein and 2+ blood by dipstick and he had a urine albumin-creatinine ratio corresponding to about 10 g of protein excretion. IMPRESSION: 64-year-old man with nephrotic syndrome, admitted with fluid overload and mild acute kidney injury. RECOMMENDATION: At this point would be to keep him on a low-sodium diet and continue with diuretics intravenously. He is responding to IV Lasix. We will continue with the same and keep him in a negative fluid balance of 1 to 2 L per 24 hours. We will watch his blood pressure and avoid hypotension and continue to avoid other nephrotoxic agents. Once the fluid status is optimized, he can be discharged and hopefully he can have his kidney biopsy on the as scheduled. If he is staying in-house over the next few days, then we may have to proceed with biopsy during this admission to rule out nondiabetic causes. We will follow him along with the team. Davon Forte MD BPA/MODL / [id number]
[2020-06-28 19:20] VITALS: BP 134/66; PULSE 83; RESP 18; TEMP 36.7; O2SAT 96
[2020-06-28 19:52] LABS: Glucose, Whole Blood 112 mg/dL (60-115)
[2020-06-28 20:31] LABS: Glucose, Whole Blood 137 mg/dL (60-115)
[2020-06-28] MEDS: Atorvastatin Calcium 20 MG TABLET PO (21:00)
[2020-06-28] MEDS: Mineral Oil/Petrolatum,White 106 GM Tube 1 APPL TOPICAL ×2 (21:00→21:36)
[2020-06-29] VITALS (9 sets, daily range): BP systolic 136–177; BP diastolic 67–82; PULSE 68–100; RESP 16–20; TEMP 36.1–36.8; O2SAT 92–99; BMI 39.4
--- NOTE | 2020-06-29 01:18 | PC.NURSE ---
[place] [facility] [place]
[2020-06-29] MEDS: Heparin Sodium,Porcine 5,000 UNIT/ML VIAL 5000 UNIT SUBCUT ×2 (06:11→17:56)
[2020-06-29] MEDS: Levothyroxine Sodium 75 MCG TABLET PO (06:11)
[2020-06-29 06:58] LABS: Hematocrit 33.8 % (42-52); Hemoglobin 11.7 g/dl (14.0-18.0); Mean Corpuscular HGB Conc 34.6 g/dl (31.0-36.0); Mean Corpuscular Hemoglobin 31.8 pg (27.0-33.0); Mean Corpuscular Volume 91.8 fL (80-98); Mean Platelet Volume 9.3 fL (9.4-12.4); Platelet Count 311 X10*3/uL (160-400); Red Blood Count 3.68 X10*6/uL (4.60-5.80); Red Cell Distribution Width 13.2 % (11.0-16.0); White Blood Count 6.2 X10*3/uL (4.8-10.8)
[2020-06-29 07:15] LABS: Anion Gap 12 (12-20); Blood Urea Nitrogen 23 mg/dL (9-16); Calcium 7.4 mg/dL (8.4-10.2); Carbon Dioxide 22 mmol/L (22-29); Chloride 104 mmol/L (96-108); Creatinine Clr Calc Pharmacy 70.1; Estimated Glomerular Filt Rate 49; Glucose Random 90 mg/dL (60-115); Potassium 3.2 mmol/l (3.3-5.1); Sodium 135 mmol/L (135-145)
[2020-06-29 08:15] LABS: Glucose, Whole Blood 86 mg/dL (60-115)
[2020-06-29] MEDS: Potassium Chloride ER 20 MEQ TAB.ER.PRT 40 MEQ PO (09:25)
[2020-06-29] MEDS: 0.9 % Sodium Chloride Flush 3 ML SYRINGE IVFLUSH ×2 (09:25→15:26)
[2020-06-29] MEDS: metOLazone 2.5 MG TABLET PO (09:26)
[2020-06-29] MEDS: SITagliptin Phosphate 100 MG TABLET PO (09:26)
[2020-06-29] MEDS: Furosemide 40 MG/4 ML VIAL IVPUSH ×2 (09:26→17:56)
[2020-06-29] MEDS: amLODIPine Besylate 5 MG TABLET PO (09:26)
[2020-06-29] MEDS: Mineral Oil/Petrolatum,White 106 GM Tube 1 APPL TOPICAL ×2 (09:27→15:26)
[2020-06-29 11:51] LABS: Glucose, Whole Blood 135 mg/dL (60-115)
--- NOTE | 2020-06-29 15:17 | P.PNIM_ITS ---
Subjective Subjective Date of Service: 06/29/20 Interval History: the patient was seen and evaluated this morning Laying in bed, feels comfortable Denies any fever, chills Edema is improving, he feels better ready No reported other overnight events. Systemic review: No fever, chills or weakness No chest pain, palpitation but has significant anemia is lower extremities No shortness of breath or coughing No abdominal pain, nausea or vomiting No urinary symptoms No any rash or wounds Physical Exam Vital Signs: Vital Signs: Last Vital Signs Temp 9.8 F L 06/29/20 14:35 Pulse 86 06/29/20 14:35 Resp 20 06/29/20 14:35 BP 149/71 H 06/29/20 14:35 Pulse Ox 98 06/29/20 14:35 Body Mass Index 39.4 Constitutional : Alert, oriented, not in distress Neck : Normal inspection, Supple Cardiovascular : RRR, S1 S2, +2 lower extremity edema bilaterally associated with sacral edema Respiratory : Good bilateral air entry, no crackles, wheezes or rhonchi Gastrointestinal: soft, lax, Normal bowel sounds, Non tender Skin : Warm/Dry, No rash Neurological : Alert & oriented x3, No focal deficit Objective Data Current Medications Generic Name Dose Route Start Last Admin Trade Name Freq PRN Reason Stop Dose Admin Acetaminophen 650 mg 06/27/20 17:54 Acetaminophen 325 Mg Tablet PO Q6H PRN Pain, Mild (Pain Scale 1-3) Amlodipine Besylate 5 mg 06/28/20 09:00 06/29/20 09:26 Amlodipine Besylate 5 Mg Tablet PO 5 mg DAILY ROSALIA Administration Protocol Atorvastatin Calcium 20 mg 06/27/20 21:00 06/28/20 21:00 Atorvastatin Calcium 20 Mg Tablet PO 20 mg BEDTIME ROSALIA Administration Docusate Sodium 100 mg 06/27/20 17:54 Docusate Sodium 100 Mg Capsule PO DAILY PRN Constipation Furosemide 40 mg 06/27/20 18:00 06/29/20 09:26 Furosemide 40 Mg/4 Ml Vial IVPUSH 40 mg BID@0900,1800 ROSALIA Administration Protocol Heparin Sodium (Porcine) 5,000 unit 06/27/20 17:54 06/29/20 06:11 Heparin Sodium,Porcine 5,000 Unit/Ml Vial SUBCUT 5,000 unit Q12H ROSALIA Administration Insulin Human Lispro 0 unit 06/27/20 17:54 06/29/20 12:22 Insulin Lispro 100 Unit/Ml 3 Ml Vial SUBCUT Not Given QIDACHS [facility] Protocol Levothyroxine Sodium 75 mcg 06/28/20 06:00 06/29/20 06:11 Levothyroxine Sodium 75 Mcg Tablet PO 75 mcg DAILY@0600 ROSALIA Administration Metolazone 2.5 mg 06/28/20 09:00 06/29/20 09:26 Metolazone 2.5 Mg Tablet PO 2.5 mg DAILY ROSALIA Administration Multi-Ingred Cream/Lotion/Oil/Oint 1 appl 06/28/20 16:55 06/29/20 09:27 Mineral Oil/Petrolatum,White 106 Gm Tube TOPICAL 1 appl TID ROSALIA Administration Ondansetron HCl 4 mg 06/27/20 17:54 Ondansetron Hcl 4 Mg/2 Ml Vial IVPUSH Q8H PRN Nausea and Vomiting Pharmacy Consult 1 each 06/27/20 11:53 Consult Rx Perform Med Rec MISCELLANE ONCE PRN Consult order Sitagliptin Phosphate 100 mg 06/28/20 09:00 06/29/20 09:26 Sitagliptin Phosphate 100 Mg Tablet PO 100 mg DAILY ROSALIA Administration Sodium Chloride 3 ml 06/27/20 17:54 06/29/20 09:25 0.9 % Sodium Chloride Flush 3 Ml Syringe IVFLUSH 3 ml QSHIFT ROSALIA Administration Labs CBC & Chem 7: 06/29/20 05:40 06/29/20 05:40 Assessment and Plan (1) Nephrotic syndrome: Status: Acute (2) Congestive heart failure: Status: Acute (3) Diabetes 1.5, managed as type 2: Status: Acute Assessment and Plan: This is a 64-year-old male with history of diabetes, hypertension, hypothyroidism, admission in April for fluid overload found to be related to nephrotic syndrome presenting with increasing leg edema Fluid overload Secondary to Nephrotic syndrome Outpatient echo, stress test negative It seems the patient is was not taking the medications right away and did not follow-up for kidney biopsy I/O -4 L Continue metolazone continue IV Lasix b.i.d. Nephrology input appreciated, Outpatient kidney biopsy on July 02 would likely benefit from VNA upon discharge for medication management Hypokalemia Secondary to IV Lasix and metolazone Replacement given to monitor BMP Worsening CKD Mild increase in creatinine to 1.4 Continue to monitor renal function hold lisinopril for now Hypertension hold lisinopril continue Norvasc Diabetes hold metformin, glipizide continue Januvia SSI, POC, ADA diet Hypothyroidism Continue Synthroid HLD Continue statin Diastolic CHF Stable disease, not in exacerbation Dry skin To use moisturizing cream twice Daily DVT prophylaxis heparin
--- NOTE | 2020-06-29 16:02 | P.PNNP_ITS ---
Subjective Subjective Date of Service: 06/29/20 Interval history: Laying in bed, feels comfortable Denies any fever, chills Edema is improving, he feels better ready No reported other overnight events. Systemic review: No fever, chills or weakness No chest pain, palpitation but has significant anemia is lower extremities No shortness of breath or coughing No abdominal pain, nausea or vomiting No urinary symptoms No any rash or wounds Physical Exam Vital Signs: Vital Signs: Last Vital Signs Temp 9.8 F L 06/29/20 14:35 Pulse 86 06/29/20 14:35 Resp 20 06/29/20 14:35 BP 149/71 H 06/29/20 14:35 Pulse Ox 98 06/29/20 14:35 Body Mass Index 39.4 Const: General: comfortable Orientation/consciousness: patient oriented x3 Eyes: EOM: EOMs intact bilaterally Resp: Auscultation: diminished lung sounds Cardio: Rate: regular rate Rhythm: regular rhythm GI: Palpation (GI): Soft to palpation Neuro: General: patient oriented x3 Objective Data Labs CBC & Chem 7: 06/29/20 05:40 06/29/20 05:40 Labs: Laboratory Results - last 24 hr 06/28/20 06/28/20 06/29/20 16:56 20:16 05:40 WBC 6.2 RBC 3.68 L Hgb 11.7 L Hct 33.8 L MCV 91.8 MCH 31.8 MCHC 34.6 RDW 13.2 Plt Count 311 MPV 9.3 L Absolute Nucleated RBC 0.000 Nucleated RBC % (auto) 0.0 Sodium Potassium Chloride Carbon Dioxide Anion Gap BUN Creatinine Estim Creat Clear Calc Estimated GFR POC Glucose 112 137 H Random Glucose Calcium 06/29/20 06/29/20 06/29/20 05:40 08:10 11:49 WBC RBC Hgb Hct MCV MCH MCHC RDW Plt Count MPV Absolute Nucleated RBC Nucleated RBC % (auto) Sodium 135 Potassium 3.2 L Chloride 104 Carbon Dioxide 22 Anion Gap 12 BUN 23 H Creatinine 1.45 H Estim Creat Clear Calc 70.1 Estimated GFR 49 POC Glucose 86 135 H Random Glucose 90 Calcium 7.4 L Assessment & Plan Assessment and plan (1) Nephrotic syndrome: Status: Acute (2) Diabetes 1.5, managed as type 2: Status: Acute Assessment and Plan: Continue diuresis; Labs AM Should get renal biopsy as inpatient Time Spent With Patient Time: Total time spent is greater than 50% in coordination of care (as docum ented) at patient's floor/unit and/or counseling patient:
[2020-06-29 17:15] LABS: Glucose, Whole Blood 115 mg/dL (60-115)
--- NOTE | 2020-06-29 18:18 | PC.NURSE ---
1803 pt experienced a vasovagal syncopal episode after administering heparin SQ to pt. This episode lasted roughly 4-5 seconds until pt regained consciousness and at that time it happened again from 3-4 seconds. Pt was diaphoretic and unsure of what happened. Pt repositioned into bed supine and VS obtained. Pt awake, alert and oriented x4 upon initial assessment. VSS with BP elevated 177/82, HR 68, RR 16, O2 92% on R/A . MD came to assess the pt. Pt is stable, in bed rporting that he feels much better now. Will continue to monitor.
--- NOTE | 2020-06-29 18:19 | P.EN_ITS ---
Event Note Date of Service: 06/29/20 Event Note: called by RN for brief LOC on this 64yo M with DM2 + nephrotic syn drome admitted for furosemide diuresis she was giving the pt his SQ heparin when he became pale and sweaty and lost consciousness for 3 sec, immediately woke up, then again lost consciouness for 3 sec, then woke up POC BG 128 he says this has happened in the past with blood draws and injections he feels absolutely fine now and wants to eat on exam he has a 2/6 <> systolic murmur at the base, clear lungs, no focal neuro findings TTE in Oct shows mild aortic stenosis impression is of vasovagal syncope. monitor for now.
[2020-06-29 18:46] LABS: Glucose, Whole Blood 126 mg/dL (60-115)
[2020-06-29 21:02] LABS: Glucose, Whole Blood 175 mg/dL (60-115)
[2020-06-29] MEDS: Insulin Lispro 100 UNIT/ML 3 ML VIAL SUBCUT (22:07)
[2020-06-29] MEDS: Atorvastatin Calcium 20 MG TABLET PO (22:07)
[2020-06-30] VITALS (7 sets, daily range): BP systolic 115–162; BP diastolic 57–91; PULSE 75–88; RESP 18–20; TEMP 36.4–36.8; O2SAT 96–98
[2020-06-30] MEDS: 0.9 % Sodium Chloride Flush 3 ML SYRINGE IVFLUSH ×4 (00:29→23:22)
[2020-06-30] MEDS: Heparin Sodium,Porcine 5,000 UNIT/ML VIAL 5000 UNIT SUBCUT (06:09)
[2020-06-30] MEDS: Levothyroxine Sodium 75 MCG TABLET PO (06:10)
[2020-06-30 07:37] LABS: Glucose, Whole Blood 97 mg/dL (60-115)
[2020-06-30 08:04] LABS: Anion Gap 14 (12-20); Blood Urea Nitrogen 24 mg/dL (9-16); Calcium 7.5 mg/dL (8.4-10.2); Carbon Dioxide 24 mmol/L (22-29); Chloride 103 mmol/L (96-108); Creatinine Clr Calc Pharmacy 60.5; Estimated Glomerular Filt Rate 41; Glucose Random 86 mg/dL (60-115); Potassium 3.7 mmol/l (3.3-5.1); Sodium 137 mmol/L (135-145)
[2020-06-30] MEDS: SITagliptin Phosphate 100 MG TABLET PO (09:05)
[2020-06-30] MEDS: Furosemide 40 MG/4 ML VIAL IVPUSH ×2 (09:05→17:30)
[2020-06-30] MEDS: amLODIPine Besylate 5 MG TABLET PO (09:05)
[2020-06-30] MEDS: metOLazone 2.5 MG TABLET PO (09:06)
--- NOTE | 2020-06-30 09:23 | PM.PNNEP ---
Subjective Subjective Date of Service: 06/30/20 Interval history: Laying in bed, feels comfortable Denies any fever, chills Edema is improving, he feels better ready No reported other overnight events. Systemic review: No fever, chills or weakness No chest pain, palpitation but has significant anemia is lower extremities No shortness of breath or coughing No abdominal pain, nausea or vomiting No urinary symptoms No any rash or wounds Physical Exam Vital Signs: Vital Signs: Last Vital Signs Temp 97.8 F 06/30/20 08:00 Pulse 77 06/30/20 09:05 Resp 20 06/30/20 08:00 BP 139/64 06/30/20 09:05 Pulse Ox 97 06/30/20 08:00 Body Mass Index 39.4 Const: General: cooperative Orientation/consciousness: patient oriented x3 Eyes: EOM: EOMs intact bilaterally Resp: Auscultation: diminished lung sounds Cardio: Heart sounds: no rubs GI: Palpation (GI): Soft to palpation Neuro: General: patient oriented x3 Objective Data Labs CBC & Chem 7: 06/29/20 05:40 06/30/20 05:55 Labs: Laboratory Results - last 24 hr 06/29/20 06/29/20 06/29/20 11:49 17:04 18:02 Sodium Potassium Chloride Carbon Dioxide Anion Gap BUN Creatinine Estim Creat Clear Calc Estimated GFR POC Glucose 135 H 115 126 H Random Glucose Calcium 06/29/20 06/30/20 06/30/20 20:55 05:55 07:28 Sodium 137 Potassium 3.7 Chloride 103 Carbon Dioxide 24 Anion Gap 14 BUN 24 H Creatinine 1.68 H Estim Creat Clear Calc 60.5 Estimated GFR 41 POC Glucose 175 H 97 Random Glucose 86 Calcium 7.5 L Assessment & Plan Assessment and plan (1) Nephrotic syndrome: Problem details: Serum creatinine worse Discontinue Metolazone Will need renal biopsy as inpatient No aspirin/anticoagulation Hopefully biopsy can be done Tue/Wed depending on IR Concur with rest of current management Status: Acute (2) Congestive heart failure: Status: Acute (3) Diabetes 1.5, managed as type 2: Status: Acute Time Spent With Patient Time: Total time spent is greater than 50% in coordination of care (as documented) at patient's floor/unit and/or counseling patient:
[2020-06-30] MEDS: Mineral Oil/Petrolatum,White 106 GM Tube 1 APPL TOPICAL ×3 (10:23→20:47)
[2020-06-30 11:29] LABS: Glucose, Whole Blood 150 mg/dL (60-115)
--- NOTE | 2020-06-30 15:00 | P.PNIM_ITS ---
Subjective Subjective Date of Service: 06/30/20 Interval History: Laying in bed, feels comfortable Denies any fever, chills Edema is improving, he feels better ready and swelling is decreasing from his Lasix No reported other overnight events. Systemic review: No fever, chills or weakness No chest pain, palpitation but has significant anemia is lower extremities No shortness of breath or coughing No abdominal pain, nausea or vomiting No urinary symptoms No any rash or wounds Physical Exam Vital Signs: Vital Signs: Last Vital Signs Temp 97.8 F 06/30/20 12:00 Pulse 88 06/30/20 12:00 Resp 20 06/30/20 12:00 BP 115/57 L 06/30/20 12:00 Pulse Ox 96 06/30/20 12:00 Body Mass Index 39.4 Constitutional : Alert, oriented, not in distress Neck : Normal inspection, Supple Cardiovascular : RRR, S1 S2, +1 lower extremity edema above the knee level Respiratory : Good bilateral air entry, no crackles, wheezes or rhonchi Gastrointestinal: soft, lax, Normal bowel sounds, Non tender Skin : Warm/Dry, No rash Neurological : Alert & oriented x3, No focal deficit Objective Data Current Medications Generic Name Dose Route Start Last Admin Trade Name Freq PRN Reason Stop Dose Admin Acetaminophen 650 mg 06/27/20 17:54 Acetaminophen 325 Mg Tablet PO Q6H PRN Pain, Mild (Pain Scale 1-3) Amlodipine Besylate 5 mg 06/28/20 09:00 06/30/20 09:05 Amlodipine Besylate 5 Mg Tablet PO 5 mg DAILY ROSALIA Administration Protocol Atorvastatin Calcium 20 mg 06/27/20 21:00 06/29/20 22:07 Atorvastatin Calcium 20 Mg Tablet PO 20 mg BEDTIME ROSALIA Administration Docusate Sodium 100 mg 06/27/20 17:54 Docusate Sodium 100 Mg Capsule PO DAILY PRN Constipation Furosemide 40 mg 06/27/20 18:00 06/30/20 09:05 Furosemide 40 Mg/4 Ml Vial IVPUSH 40 mg BID@0900,1800 [facility] Administration Protocol Insulin Human Lispro 0 unit 06/27/20 17:54 06/30/20 11:26 Insulin Lispro 100 Unit/Ml 3 Ml Vial SUBCUT Not Given QIDACHS [facility] Protocol Levothyroxine Sodium 75 mcg 06/28/20 06:00 06/30/20 06:10 Levothyroxine Sodium 75 Mcg Tablet PO 75 mcg DAILY@0600 ROSALIA Administration Multi-Ingred Cream/Lotion/Oil/Oint 1 appl 06/28/20 16:55 06/30/20 10:23 Mineral Oil/Petrolatum,White 106 Gm Tube TOPICAL 1 appl TID ROSALIA Administration Ondansetron HCl 4 mg 06/27/20 17:54 Ondansetron Hcl 4 Mg/2 Ml Vial IVPUSH Q8H PRN Nausea and Vomiting Pharmacy Consult 1 each 06/27/20 11:53 Consult Rx Perform Med Rec MISCELLANE ONCE PRN Consult order Sitagliptin Phosphate 100 mg 06/28/20 09:00 06/30/20 09:05 Sitagliptin Phosphate 100 Mg Tablet PO 100 mg DAILY ROSALIA Administration Sodium Chloride 3 ml 06/27/20 17:54 06/30/20 07:10 0.9 % Sodium Chloride Flush 3 Ml Syringe IVFLUSH 3 ml QSHIFT ROSALIA Administration Labs CBC & Chem 7: 06/29/20 05:40 06/30/20 05:55 Assessment and Plan (1) Nephrotic syndrome: Status: Acute (2) Congestive heart failure: Status: Acute (3) Diabetes 1.5, managed as type 2: Status: Acute Assessment and Plan: This is a 64-year-old male with history of diabetes, hypertension, hypothyroidism, admission in April for fluid overload found to be related to nephrotic syndrome presenting with increasing leg edema Fluid overload Secondary to Nephrotic syndrome I/O -7 L since admission discontinue metolazone continue IV Lasix b.i.d. Nephrology input appreciated, To do kidney biopsy inpatient would likely benefit from VNA upon discharge for medication management Hypokalemia improved Secondary to IV Lasix and metolazone to monitor BMP Worsening CKD Mild increase in creatinine to 1.6 Continue to monitor renal function hold lisinopril and metolazone for now Hypertension hold lisinopril continue Norvasc Diabetes hold metformin, glipizide continue Januvia SSI, POC, ADA diet Hypothyroidism Continue Synthroid HLD Continue statin Diastolic CHF Stable disease, not in exacerbation Dry skin To use moisturizing cream twice Daily DVT prophylaxis heparin
[2020-06-30 16:59] LABS: Glucose, Whole Blood 118 mg/dL (60-115)
[2020-06-30] MEDS: Atorvastatin Calcium 20 MG TABLET PO (20:46)
[2020-06-30 20:47] LABS: Glucose, Whole Blood 148 mg/dL (60-115)
[2020-07-01 04:00] VITALS: BP 140/73; PULSE 74; RESP 20; TEMP 36.4; O2SAT 96
[2020-07-01 06:47] LABS: Anion Gap 13 (12-20); Blood Urea Nitrogen 24 mg/dL (9-16); Calcium 7.5 mg/dL (8.4-10.2); Carbon Dioxide 23 mmol/L (22-29); Chloride 103 mmol/L (96-108); Creatinine Clr Calc Pharmacy 69.2; Estimated Glomerular Filt Rate 48; Glucose Random 98 mg/dL (60-115); Potassium 3.3 mmol/l (3.3-5.1); Sodium 136 mmol/L (135-145)
[2020-07-01 06:50] LABS: INTERNATIONAL NORM RATIO 0.9 (0.9-1.1); Prothrombin Time 10.9 SEC (10.8-13.0)
[2020-07-01 07:45] LABS: Glucose, Whole Blood 108 mg/dL (60-115)
[2020-07-01 08:00] VITALS: BP 138/77; PULSE 82; RESP 20; TEMP 36.7; O2SAT 96
--- NOTE | 2020-07-01 09:27 | P.PNNP_ITS ---
Subjective Subjective Date of Service: 07/01/20 Interval history: Events noted Feeling better Swelling decreased Physical Exam Vital Signs: Vital Signs: Last Vital Signs Temp 97.6 F 07/01/20 04:00 Pulse 74 07/01/20 04:00 Resp 20 07/01/20 04:00 BP 140/73 H 07/01/20 04:00 Pulse Ox 96 07/01/20 04:00 Body Mass Index 39.4 Const: General: cooperative and comfortable Orientation/consciousness: patient oriented x3 Eyes: EOM: EOMs intact bilaterally Resp: Auscultation: diminished lung sounds Cardio: Rate: regular rate Rhythm: regular rhythm Heart sounds: no rubs GI: Palpation (GI): Soft to palpation Neuro: General: patient oriented x3 Objective Data Labs CBC & Chem 7: 06/29/20 05:40 07/01/20 05:23 Labs: Laboratory Results - last 24 hr 06/30/20 06/30/20 06/30/20 11:23 16:55 20:41 PT INR Sodium Potassium Chloride Carbon Dioxide Anion Gap BUN Creatinine Estim Creat Clear Calc Estimated GFR POC Glucose 150 H 118 H 148 H Random Glucose Calcium 07/01/20 07/01/20 07/01/20 05:23 05:23 07:41 PT 10.9 INR 0.9 Sodium 136 Potassium 3.3 Chloride 103 Carbon Dioxide 23 Anion Gap 13 BUN 24 H Creatinine 1.47 H Estim Creat Clear Calc 69.2 Estimated GFR 48 POC Glucose 108 Random Glucose 98 Calcium 7.5 L Assessment & Plan Assessment and plan (1) Nephrotic syndrome: Problem details: Cr is improving Keep O > I Await kidney biopsy If it is not done in-house today, can be discharged. HE has out pt biopsy scheduled [facility] [place] , with for 07/02/2020 Can switch to LASIX 40 mg PO BID and dose can be titrated as out patient Keep on 2 gm Na diet Follow up with upon discharge Status: Acute Time Spent With Patient Time: Total time spent is greater than 50% in coordination of care (as documented) at patient's floor/unit and/or counseling patient:
[2020-07-01] MEDS: Furosemide 40 MG/4 ML VIAL IVPUSH (10:12)
[2020-07-01] MEDS: 0.9 % Sodium Chloride Flush 3 ML SYRINGE IVFLUSH (10:12)
[2020-07-01] MEDS: Docusate Sodium 100 MG CAPSULE PO (10:12)
[2020-07-01 10:13] VITALS: BP 124/74; PULSE 81
[2020-07-01] MEDS: amLODIPine Besylate 5 MG TABLET PO (10:13)
[2020-07-01 11:29] LABS: Glucose, Whole Blood 118 mg/dL (60-115)
--- NOTE | 2020-07-01 12:52 | PM.DS ---
DS: Providers Provider Date of admission: 06/27/20 15:21 Primary care physician: Segundo Tapia MD Consults: 06/27/20 15:21 Consult to Nephrology Routine Consulting Provider: Davon Forte Reason for consultation: nephrotic syndrome DS: Diagnosis Discharge Diagnosis (1) Nephrotic syndrome: Status: Acute (2) Fluid overload: Status: Acute (3) Diabetes 1.5, managed as type 2: Status: Acute (4) CKD (chronic kidney disease) stage 3, GFR 30-59 ml/min: Status: Acute DS: Medications Discharge Medications Home Medications: Home Medications Medication Instructions Recorded Confirmed Januvia 100 mg PO DAILY 04/23/20 06/27/20 glipizide 10 mg PO DAILY 04/23/20 06/27/20 metformin 1,000 mg PO BID 04/23/20 06/27/20 simvastatin 40 mg PO BEDTIME 04/23/20 06/27/20 levothyroxine 75 mcg PO DAILY 06/27/20 06/27/20 lisinopril 2.5 mg PO DAILY 06/27/20 06/27/20 Previous Rx's Medication Instructions Recorded amlodipine 5 mg PO DAILY #30 tab 04/26/20 furosemide 40 mg PO BID #60 tab 07/01/20 DS: Summary Hospital Course Hospital Course: Admission note HPI This is a 64-year-old male with history of diabetes who presents to the emergency department with leg swelling. He was admitted to the hospital in April with similar complaints. At that time he was diagnosed to have nephrotic syndrome. He was also noted to have elevated blood pressure. Adjustments were made to his medications including starting Norvasc increasing dose of lisinopril from 2.5 mg to 40 mg daily and starting torsemide 40 mg b.i.d. The plan was for him to have outpatient kidney biopsy. He has not yet had a biopsy. After discussion with the pharmacist it is unclear if the patient picked up the the medication that was prescribed on discharge and has been taking his old dose of lisinopril. Furosemide was filled in May. He does not know the names or indications for any of his medication. In any event he reports increasing leg edema, dyspnea on exertion. He reports ambulating has become more difficult due to the weight of his legs. He did follow up with Cardiology after discharge. Echocardiogram was unremarkable. He also had unremarkable stress test. Who today lab work revealed increasing creatinine with a creatinine of 1.44, the remainder of his lab work was unremarkable. He received a dose of IV Lasix and a decision was made to admit him for further management. Hospital course The patient was admitted to the hospital for treatment of fluid overload and significant edema. He was started on IV Lasix and metolazone with fair response as he made almost 10 L negative over the hospital course. He was evaluated by Nephrology who recommended a kidney biopsy that was scheduled for outpatient on 07/02/2020. His kidney function was monitored during the hospital stay . Plan to do kidney biopsy and follow-up with doctor Ribeiro in Nephrology office in the future. To increase Lasix to 40 mg twice daily and Hold metolazone for now to repeat blood test next week Time Spent with Patient Time attestation: Total time spent providing and/or coordinating discharge services: Physical Exam Vital Signs: Vital Signs: Last Vital Signs Temp 98.0 F 07/01/20 08:00 Pulse 81 07/01/20 10:13 Resp 20 07/01/20 08:00 BP 124/74 07/01/20 10:13 Pulse Ox 96 07/01/20 08:00 Body Mass Index 39.4 Constitutional : Alert, oriented, not in distress Neck : Normal inspection, Supple Cardiovascular : RRR, S1 S2, trace bilateral lower extremity edema Respiratory : Good bilateral air entry, no crackles, wheezes or rhonchi Gastrointestinal: soft, lax, Normal bowel sounds, Non tender Skin : Warm/Dry, No rash Neurological : Alert & oriented x3, No focal deficit DS: Data Data Completed and Pending Completed studies during hospitalization [Text1]: Procedures Extraction of Right Inguinal Lymphatic, Percutaneous Approach, Diagnostic (04/23/20) Labs on day of discharge: 06/27/20 11:53 ECG 12 lead EKG Stat EKG Documentation DIRECTED XR chest 2V Stat 06/27/20 11:54 US venous duplex LE BI Stat 06/27/20 12:00 COVID-19 ID NOW (Vazquez) Stat 06/27/20 12:01 B Type Natriuretic Peptide Stat Basic Metabolic Panel Stat Complete Blood Count Auto Diff Stat Hold Lt Blue - Possible Coag Stat Liver Panel Stat 06/27/20 12:40 Furosemide [Lasix] 40 mg IVPUSH STAT STA 06/27/20 14:57 Transfer Order Routine 06/27/20 Lunch Diabetic Diet 06/27/20 17:54 Heparin Sodium,Porcine 5,000 unit SUBCUT Q12H 06/27/20 18:56 Glucose, Whole Blood Routine 06/27/20 20:46 Glucose, Whole Blood Routine 06/28/20 05:21 Basic Metabolic Panel DAILY@0600 Complete Blood Count Auto Diff DAILY@0600 06/28/20 08:23 Glucose, Whole Blood Routine 06/28/20 09:00 metOLazone [Zaroxolyn] 2.5 mg PO DAILY 06/28/20 11:49 Glucose, Whole Blood Routine 06/28/20 Lunch Diabetic Diet 06/28/20 16:56 Glucose, Whole Blood Routine 06/28/20 20:16 Glucose, Whole Blood Routine 06/29/20 05:40 Basic Metabolic Panel DAILY@0600 Complete Blood Count no Diff DAILY@0600 06/29/20 08:10 Glucose, Whole Blood Routine 06/29/20 08:27 Potassium Chloride ER [Klor-con] 40 meq PO ONCE ONE 06/29/20 11:49 Glucose, Whole Blood Routine 06/29/20 17:04 Glucose, Whole Blood Routine 06/29/20 18:02 Glucose, Whole Blood Routine 06/29/20 20:55 Glucose, Whole Blood Routine 06/30/20 05:55 Basic Metabolic Panel DAILY@0600 06/30/20 07:28 Glucose, Whole Blood Routine 06/30/20 11:23 Glucose, Whole Blood Routine 06/30/20 16:55 Glucose, Whole Blood Routine 06/30/20 20:41 Glucose, Whole Blood Routine 07/01/20 05:23 Basic Metabolic Panel DAILY@0600 Prothrombin Time INR DAILY@0600 07/01/20 07:41 Glucose, Whole Blood Routine 07/01/20 11:19 Glucose, Whole Blood Routine Laboratory Last Values WBC 6.2 X10*3/uL (4.8-10.8) 06/29/20 05:40 RBC 3.68 X10*6/uL (4.60-5.80) L 06/29/20 05:40 Hgb 11.7 g/dl (14.0-18.0) L 06/29/20 05:40 Hct 33.8 % (42-52) L 06/29/20 05:40 MCV 91.8 fL (80-98) 06/29/20 05:40 MCH 31.8 pg (27.0-33.0) 06/29/20 05:40 MCHC 34.6 g/dl (31.0-36.0) 06/29/20 05:40 RDW 13.2 % (11.0-16.0) 06/29/20 05:40 Plt Count 311 X10*3/uL (160-400) 06/29/20 05:40 MPV 9.3 fL (9.4-12.4) L 06/29/20 05:40 Immature Gran % (Auto) 0.5 % (0.0-0.4) H 06/28/20 05:21 Neut % (Auto) 53.8 % (45-73) 06/28/20 05:21 Lymph % (Auto) 29.1 % (20-40) 06/28/20 05:21 [place] % (Auto) 8.8 % (2-11) 06/28/20 05:21 Eos % (Auto) 6.8 % (0-4) H 06/28/20 05:21 Baso % (Auto) 1.0 % (0-2) 06/28/20 05:21 Lymph # (Auto) 1.8 X10*3/uL (1.2-4.9) 06/28/20 05:21 [place] # (Auto) 0.5 X10*3/uL (0.1-1.2) 06/28/20 05:21 Eos # (Auto) 0.4 X10*3/uL (0.0-0.4) 06/28/20 05:21 Baso # (Auto) 0.1 X10*3/uL (0.0-0.2) 06/28/20 05:21 Abs Immat Gran (auto) 0.03 X10*3/uL (0.00-0.03) 06/28/20 05:21 Absolute Neuts (auto) 3.3 X10*3/uL (2.0-8.3) 06/28/20 05:21 Absolute Nucleated RBC 0.000 X10*3/uL (0.0-0.012) 06/29/20 05:40 Nucleated RBC % (auto) 0.0 /100WBC (0.0-0.2) 06/29/20 05:40 PT 10.9 SEC (10.8-13.0) 07/01/20 05:23 INR 0.9 (0.9-1.1) 07/01/20 05:23 Hold Blue Top SEE NOTE 06/27/20 12:01 Sodium 136 mmol/L (135-145) 07/01/20 05:23 Potassium 3.3 mmol/l (3.3-5.1) 07/01/20 05:23 Chloride 103 mmol/L (96-108) 07/01/20 05:23 Carbon Dioxide 23 mmol/L (22-29) 07/01/20 05:23 Anion Gap 13 (-20) 07/01/20 05:23 BUN 24 mg/dL (9-16) H 07/01/20 05:23 Creatinine 1.47 mg/dL (0.5-1.4) H 07/01/20 05:23 Estim Creat Clear Calc 69.2 07/01/20 05:23 Estimated GFR 48 07/01/20 05:23 POC Glucose 118 mg/dL (60-115) H 07/01/20 11:19 Random Glucose 98 mg/dL (60-115) 07/01/20 05:23 Calcium 7.5 mg/dL (8.4-10.2) L 07/01/20 05:23 Total Bilirubin 0.4 mg/dL (0.0-1.0) 06/27/20 12:01 Direct Bilirubin 0.2 mg/dL (0.0-0.5) 06/27/20 12:01 AST 29 U/L (5-37) D 06/27/20 12:01 ALT 16 U/L (0-40) 06/27/20 12:01 Alkaline Phosphatase 68 U/L (39-117) 06/27/20 12:01 B-Natriuretic Peptide 58 pg/mL (<100) 06/27/20 12:01 Total Protein 4.6 g/dL (6.5-8.0) L 06/27/20 12:01 Albumin 1.8 g/dL (3.5-5.0) L 06/27/20 12:01 COVID-19 ([facility]) Negative (Negative) 06/27/20 12:00 COVID-19 Clin Com See Note 06/27/20 12:00 Discharge Plan Discharge Patient Disposition: Home Health Service Referrals: Segundo Tapia MD [Primary Care Provider] - Discharge Medications: New furosemide 40 mg tablet 40 mg PO BID Qty: 60 RF: 3 Continued simvastatin 40 mg Tablet 40 mg PO BEDTIME RF: 0 metformin 500 mg Tablet,Er Karolyn.Retention 24 Hr 1,000 mg PO BID RF: 0 glipizide 10 mg Tablet Extended Release 24hr 10 mg PO DAILY RF: 0 Januvia 100 mg Tablet 100 mg PO DAILY RF: 0 amlodipine 5 mg Tablet 5 mg PO DAILY Qty: 30 RF: 0 levothyroxine 75 mcg Tablet 75 mcg PO DAILY RF: 0 lisinopril 2.5 mg Tablet 2.5 mg PO DAILY RF: 0 Discontinued furosemide 20 mg Tablet 20 mg PO DAILY RF: 0 metolazone 2.5 mg Tablet 2.5 mg PO DAILY RF: 0 Discharge Orders: Discharge Order (Routine); Ordered 07/01/20 Ordered By: Ileana Leach Diet: advance to usual diet and low salt diet Activity on Discharge: As tolerated Other Ambulatory Orders: Basic Metabolic Panel (Routine) Timeframe: 1 Week Facility: [facility] - Location: Laboratory Ordered By: Ileana Leach Visit Report Forms: Patient Portal Discharge page Care Plan Goals: Read below Health Concerns: Read below Plan of Treatment: You were admitted to the hospital for treatment of fluid overload. We believe it is a result of kidney problem called nephrotic syndrome. You were evaluated by foot miter operator who arranged for outpatient kidney biopsy at [facility] [place] , with for 07/02/2020 tomorrow morning. To follow-up with doctor Ribeiro from Nephrology as outpatient. Increase your Lasix dose to 40 mg twice Daily Monitor your weight and report any changes to your PCP
--- NOTE | 2020-07-01 13:30 | MHC.CM.PN ---
Patient is being discharged home today with services from [facility]. Patient's friend Isaías [phone] will pick patient up at 3pm at front entrance. Nurse, patient notified.
== END 2020-07-01 16:00 | disposition home health service (06) | DRG 699 ==
LOC: HO.ED 13:18 → HO.IMC 15:57
PROVIDERS: Physician Assistant; Physician Assistant Medical; Admitting Provider Hospitalist; Emergency Provider Internal Medicine; PCP Internal Medicine; Visit Provider Student in an Organized Health Care Education/Training Program
DX: E11.21 Type 2 diabetes mellitus with diabetic nephropathy (principal); I13.0 Hypertensive heart and chronic kidney disease with heart failure and stage 1 through stage 4 chronic kidney disease, or unspecified chronic kidney disease; I50.32 Chronic diastolic (congestive) heart failure; E03.9 Hypothyroidism, unspecified; E78.5 Hyperlipidemia, unspecified; Z20.828 Contact with and (suspected) exposure to other viral communicable diseases; E11.22 Type 2 diabetes mellitus with diabetic chronic kidney disease; E66.9 Obesity, unspecified; E87.6 Hypokalemia; N18.30 Chronic kidney disease, stage 3 unspecified; R55 Syncope and collapse; Z68.39 Body mass index [BMI] 39.0-39.9, adult; Z87.891 Personal history of nicotine dependence; Z88.0 Allergy status to penicillin; Z79.84 Long term (current) use of oral hypoglycemic drugs; Z79.890 Hormone replacement therapy; Z79.899 Other long term (current) drug therapy
CPT/HCPCS: 36415; 71046; 80048; 80076; 82947; 83880; 85025; 85027; 85610; 87635; 93005; 93970; 99225; 99232; 99285; J1940

== ENCOUNTER 2020-07-17 15:20 | Outpatient (REF) | payer MEDICARE, MEDICAID, SELFPAY ==
[2020-07-17 16:27] LABS: Alanine Aminotransferase 14 U/L (0-40); Alkaline Phosphatase 65 U/L (39-117); Anion Gap 10 (12-20); Aspartate Amino Transferase 23 U/L (5-37); Bilirubin Total 0.2 mg/dL (0.0-1.0); Blood Urea Nitrogen 24 mg/dL (9-16); Calcium 7.6 mg/dL (8.4-10.2); Carbon Dioxide 23 mmol/L (22-29); Chloride 111 mmol/L (96-108); Estimated Glomerular Filt Rate 49; Glucose Random 76 mg/dL (60-115); Potassium 4.3 mmol/l (3.3-5.1); Sodium 140 mmol/L (135-145); Total Protein 4.6 g/dL (6.5-8.0)
[2020-07-17 16:50] LABS: Vitamin B12 373 pg/mL (200-900)
[2020-07-17 16:53] LABS: Albumin Level 1.9 g/dL (3.5-5.0)
== END 2020-07-17 15:21 | disposition home or self-care (01) ==
LOC: HO.LAB 15:20
PROVIDERS: Absent Provider Student in an Organized Health Care Education/Training Program; PCP Internal Medicine; Visit Provider Internal Medicine
DX: N04.9 Nephrotic syndrome with unspecified morphologic changes (principal); I50.9 Heart failure, unspecified
CPT/HCPCS: 80053; 82607

== ENCOUNTER 2020-07-26 11:30 | Inpatient (IN) | payer MEDICARE, MEDICAID, SELFPAY ==
[2020-07-26 11:37] VITALS: BP 159/76; PULSE 90; RESP 18; TEMP 35.5; O2SAT 99; BMI 41.8
[2020-07-26 16:13] VITALS: BP 159/74; PULSE 85; RESP 18; TEMP 36.4; O2SAT 98
--- NOTE | 2020-07-26 17:46 | XR_ITS ---
EXAMINATION: XR CHEST CLINICAL INFORMATION: CHF COMPARISON: Chest radiograph 06/27/[address] abdomen and pelvis 04/16/2020 TECHNIQUE: 2 views of the chest were obtained. FINDINGS: The heart size is normal. A small hiatal hernia is again seen. Small bilateral pleural effusions are present. No gross upper zone redistribution is seen and there is no evidence of significant CHF. No consolidations or lung masses are seen. Degenerative changes are present in the spine and some calcific atherosclerotic changes present in the aorta. XR/XR chest 2V IMPRESSION: Bilateral small pleural effusions. No gross evidence of CHF or pulmonary edema.
[2020-07-26 18:00] VITALS: BP 139/80; PULSE 85; RESP 20; O2SAT 99
--- NOTE | 2020-07-26 18:00 | ED_ITS ---
HPI - SOB/Dyspnea General Chief Complaint: Dyspnea Stated Complaint: FLUID IN LEGS Time Seen by Provider: 07/26/20 17:35 Source: patient Mode of arrival: ambulatory History of Present Illness HPI Narrative: 64-year-old male with a past medical history of diabetes, nephrotic syndrome, CHF, HLD, HTN, hypothyroid, presenting to the ED for inc reased weight gain, exertional shortness of breath, abdominal distension, upper extremity and lower extremity edema/swelling. Patient was recently discharged from our hospital on 07/01 for similar symptoms, had outpatient renal biopsy on 07/02 results unknown, Lasix was increased to 40 mg b.i.d. upon discharge, patient reports compliance with medications, however has been gaining weight since discharge. Denies fever, chills, cough, nausea/vomiting, CP MD elicited complaint: shortness of breath Related Data Home Medications Medication Instructions Recorded Confirmed Januvia 100 mg PO DAILY 04/23/20 06/27/20 glipizide 10 mg PO DAILY 04/23/20 06/27/20 metformin 1,000 mg PO BID 04/23/20 06/27/20 simvastatin 40 mg PO BEDTIME 04/23/20 06/27/20 levothyroxine 75 mcg PO DAILY 06/27/20 06/27/20 lisinopril 2.5 mg PO DAILY 06/27/20 06/27/20 Previous Rx's Medication Instructions Recorded amlodipine 5 mg PO DAILY #30 tab 04/26/20 furosemide 40 mg PO BID #60 tab 07/01/20 Allergies Allergy/AdvReac Type Severity Reaction Status Date / Time Penicillins Allergy Unknown UNKWN Verified 04/23/20 13:49 Review of Systems Review of Systems: Constitutional: + weight gain, No Fever, No Chills Cardiovascular: No Chest Pain, + SOB, + Dyspnea on Exertion, + Orthopnea, + Edema, No Palpitations Respiratory: No Cough, No Sputum, No Wheezing Gastrointestinal: No Nausea, No Vomiting, No Diarrhea, No Constipation, + abdominal distension Genitourinary: No irregular bleeding, No Dysuria, No Urinary Frequency, No Hematuria Musculoskeletal: No joint pain, No Myalgias Skin: No Skin Lesions, No rash Yes all other systems are reviewed and are negative PMFSH Past Medical History Attestation statement: The following information was validated with the patient. Medical History (Updated 07/26/20 @ 19:09 by CHRISTIAN Shrestha) CHF (congestive heart failure), NYHA class I Congestive heart failure Diabetes 1.5, managed as type 2 Diverticulosis Hiatal hernia History of small bowel obstruction Hyperlipidemia Hypertension Hypothyroidism Nephrotic syndrome Social History Social History Household Members: None Housing: Apartment Alcohol intake: former Smoking Status: Former smoker Use of substances other than those prescribed or required for medical reasons: No Advance Directives: Yes Advance Directives on File: Yes Advance Directives Date on File: 05/01/20 service: No Current occupational status: unemployed and disabled Physical Exam Vital Signs: Vital Signs: Last Vital Signs Temp 97.6 F 07/26/20 16:13 Pulse 85 07/26/20 18:00 Resp 20 07/26/20 18:00 BP 139/80 07/26/20 18:00 Pulse Ox 99 07/26/20 18:00 Body Mass Index 41.8 Const: General: cooperative Orientation/consciousness: patient oriented x3 Limitations: no limitations HENMT: Head: Yes normal to inspection Ears: hearing grossly normal bilaterally General nose exam: Normal external nose present Face and sinus: Yes normal facial exam Eyes: General: appearance normal, both eyes and all related structures EOM: EOMs intact bilaterally Neck: Neck: Yes normal visual inspection Resp: Effort & Inspection: normal respiratory effort and no stridor Auscultation: clear to auscultation bilaterally, no rhonchi and no wheezes Cardio: Rate: regular rate Heart sounds: S1 normal heart sound present and S2 normal heart sound present GI: Inspection: Yes normal to inspection and Yes distended Palpation (GI): Firmness to palpation present (GI), nontender, no guarding and not rigid Skin: Rashes: no rashes Wounds: no wounds Neuro: General: patient oriented x3 Gait exam (Neuro): Normal gait present Extrem: Other: + bilateral upper and lower extremity pitting edema Course Course Course Narrative: * Labs at patient's baseline * BNP 46 XR chest 2V IMPRESSION: Bilateral small pleural effusions. No gross evidence of CHF or pulmonary edema > patient admitted for further management MDM - SOB/Dyspnea MDM Narrative Medical decision making narrative: 64-year-old male with a past medical history of diabetes, nephrotic syndrome, CHF, HLD, HTN, hypothyroid, presenting to the ED for increased weight gain, exertional shortness of breath, abdominal distension, upper extremity and lower extremity edema/swelling. On exam VSS, NAD/well-appearing, lungs CTA, abdomen distended, bilateral upper and lower extremities with edema. Concern for CHF/worsening nephrotic syndrome/fluid overload. Low concern for PE or other infectious etiology Plan: EKG, labs, CXR, IV Lasix, anticipated admission Lab Data Result diagrams: 07/26/20 17:59 07/26/20 17:59 Labs: Lab Results 07/26/20 07/26/20 07/26/20 Range/Units 17:59 17:59 17:59 WBC 6.2 (4.8-10.8) X10*3/uL RBC 4.19 L (4.60-5.80) X10*6/uL Hgb 13.2 L (14.0-18.0) g/dl Hct 38.7 L (42-52) % MCV 92.4 (80-98) fL MCH 31.5 (27.0-33.0) pg MCHC 34.1 (31.0-36.0) g/dl RDW 13.4 (11.0-16.0) % Plt Count 388 (160-400) X10*3/uL MPV 9.6 (9.4-12.4) fL Immature Gran % (Auto) 1.1 H (0.0-0.4) % Neut % (Auto) 65.7 (45-73) % Lymph % (Auto) 21.7 (20-40) % [place] % (Auto) 6.3 (2-11) % Eos % (Auto) 4.2 H (0-4) % Baso % (Auto) 1.0 (0-2) % Lymph # (Auto) 1.3 (1.2-4.9) X10*3/uL [place] # (Auto) 0.4 (0.1-1.2) X10*3/uL Eos # (Auto) 0.3 (0.0-0.4) X10*3/uL Baso # (Auto) 0.1 (0.0-0.2) X10*3/uL Abs Immat Gran (auto) 0.07 H (0.00-0.03) X10*3/uL Absolute Neuts (auto) 4.1 (2.0-8.3) X10*3/uL Absolute Nucleated RBC 0.000 (0.0-0.012) X10*3/uL Nucleated RBC % (auto) 0.0 (0.0-0.2) /100WBC Hold Blue Top SEE NOTE Sodium 137 (135-145) mmol/L Potassium 4.2 (3.3-5.1) mmol/l Chloride 108 (96-108) mmol/L Carbon Dioxide 19 L (22-29) mmol/L Anion Gap 14 (12-20) BUN 22 H (9-16) mg/dL Creatinine 1.38 (0.5-1.4) mg/dL Estim Creat Clear Calc 76.1 Estimated GFR 52 Calcium 7.7 L (8.4-10.2) mg/dL Total Bilirubin 0.2 (0.0-1.0) mg/dL Direct Bilirubin < 0.2 (0.0-0.5) mg/dL AST 34 D (5-37) U/L ALT 18 (0-40) U/L Alkaline Phosphatase 70 (39-117) U/L B-Natriuretic Peptide (<100) pg/mL Total Protein 4.8 L (6.5-8.0) g/dL Albumin 1.8 L (3.5-5.0) g/dL COVID-19 ([facility]) (Negative) COVID-19 Clin Com 07/26/20 07/26/20 Range/Units 17:59 17:59 WBC (4.8-10.8) X10*3/uL RBC (4.60-5.80) X10*6/uL Hgb (14.0-18.0) g/dl Hct (42-52) % MCV (80-98) fL MCH (27.0-33.0) pg MCHC (31.0-36.0) g/dl RDW (11.0-16.0) % Plt Count (160-400) X10*3/uL MPV (9.4-12.4) fL Immature Gran % (Auto) (0.0-0.4) % Neut % (Auto) (45-73) % Lymph % (Auto) (20-40) % [place] % (Auto) (2-11) % Eos % (Auto) (0-4) % Baso % (Auto) (0-2) % Lymph # (Auto) (1.2-4.9) X10*3/uL [place] # (Auto) (0.1-1.2) X10*3/uL Eos # (Auto) (0.0-0.4) X10*3/uL Baso # (Auto) (0.0-0.2) X10*3/uL Abs Immat Gran (auto) (0.00-0.03) X10*3/uL Absolute Neuts (auto) (2.0-8.3) X10*3/uL Absolute Nucleated RBC (0.0-0.012) X10*3/uL Nucleated RBC % (auto) (0.0-0.2) /100WBC Hold Blue Top Sodium (135-145) mmol/L Potassium (3.3-5.1) mmol/l Chloride (96-108) mmol/L Carbon Dioxide (22-29) mmol/L Anion Gap (12-20) BUN (9-16) mg/dL Creatinine (0.5-1.4) mg/dL Estim Creat Clear Calc Estimated GFR Calcium (8.4-10.2) mg/dL Total Bilirubin (0.0-1.0) mg/dL Direct Bilirubin (0.0-0.5) mg/dL AST (5-37) U/L ALT (0-40) U/L Alkaline Phosphatase (39-117) U/L B-Natriuretic Peptide 46 (<100) pg/mL Total Protein (6.5-8.0) g/dL Albumin (3.5-5.0) g/dL COVID-19 ([facility]) Negative (Negative) COVID-19 Clin Com See Note Discharge Plan Discharge Clinical Impression: Congestive heart failure Patient Disposition: Admitted As Inpatient Prescriptions: No Action simvastatin 40 mg Tablet 40 mg PO BEDTIME RF: 0 metformin 500 mg Tablet,Er Karolyn.Retention 24 Hr 1,000 mg PO BID RF: 0 glipizide 10 mg Tablet Extended Release 24hr 10 mg PO DAILY RF: 0 Januvia 100 mg Tablet 100 mg PO DAILY RF: 0 amlodipine 5 mg Tablet 5 mg PO DAILY Qty: 30 RF: 0 levothyroxine 75 mcg Tablet 75 mcg PO DAILY RF: 0 lisinopril 2.5 mg Tablet 2.5 mg PO DAILY RF: 0 furosemide 40 mg tablet 40 mg PO BID Qty: 60 RF: 3
[2020-07-26 18:14] LABS: MANUAL DIFF FLAG NO
[2020-07-26 18:38] LABS: Basophils Absolute Auto 0.1 X10*3/uL (0.0-0.2); Eosinophils Absolute Auto 0.3 X10*3/uL (0.0-0.4); Eosinophils Percent Auto 4.2 % (0-4); Hematocrit 38.7 % (42-52); Hemoglobin 13.2 g/dl (14.0-18.0); Imm Gran Abs Auto 0.07 X10*3/uL (0.00-0.03); Imm Gran Pct Auto 1.1 % (0.0-0.4); Lymphocytes Absolute Auto 1.3 X10*3/uL (1.2-4.9); Lymphocytes Percent Auto 21.7 % (20-40); Mean Corpuscular HGB Conc 34.1 g/dl (31.0-36.0); Mean Corpuscular Hemoglobin 31.5 pg (27.0-33.0); Mean Corpuscular Volume 92.4 fL (80-98); Mean Platelet Volume 9.6 fL (9.4-12.4); Monocytes Absolute Auto 0.4 X10*3/uL (0.1-1.2); Monocytes Percent Auto 6.3 % (2-11); Neutrophils Absolute Auto 4.1 X10*3/uL (2.0-8.3); Neutrophils Percent Auto 65.7 % (45-73); Platelet Count 388 X10*3/uL (160-400); Red Blood Count 4.19 X10*6/uL (4.60-5.80); Red Cell Distribution Width 13.4 % (11.0-16.0); White Blood Count 6.2 X10*3/uL (4.8-10.8)
[2020-07-26 18:41] LABS: B Type Natriuretic Peptide 46 pg/mL (<100)
[2020-07-26 18:45] LABS: COVID-19 Test Negative (Negative)
[2020-07-26 18:48] LABS: Alanine Aminotransferase 18 U/L (0-40); Albumin Level 1.8 g/dL (3.5-5.0); Alkaline Phosphatase 70 U/L (39-117); Anion Gap 14 (12-20); Aspartate Amino Transferase 34 U/L (5-37); Bilirubin Direct < 0.2 mg/dL (0.0-0.5); Bilirubin Total 0.2 mg/dL (0.0-1.0); Blood Urea Nitrogen 22 mg/dL (9-16); Calcium 7.7 mg/dL (8.4-10.2); Carbon Dioxide 19 mmol/L (22-29); Chloride 108 mmol/L (96-108); Creatinine Clr Calc Pharmacy 76.1; Estimated Glomerular Filt Rate 52; Potassium 4.2 mmol/l (3.3-5.1); Sodium 137 mmol/L (135-145); Total Protein 4.8 g/dL (6.5-8.0)
[2020-07-26] MEDS: Furosemide 40 MG/4 ML VIAL IVPUSH ×2 (19:03→20:27)
--- NOTE | 2020-07-26 19:13 | PC.NURSE ---
Patient 's blood sugar is 53 and patient given orange juice and 1 sandwich per MD. Patient states that he has not eaten all day long as he has been here since 11:00 am.
[2020-07-26 19:14] LABS: Glucose Random 53 mg/dL (60-115)
--- NOTE | 2020-07-26 19:37 | P.HPHOSP_ITS ---
History of Present Illness Date of Service: 07/26/20 Chief Complaint: Swelling This is a 64-year-old male with history of nephrotic syndrome presents to the emergency department due to increasing swelling. Patient was admitted to the hospital in the summer for fluid overload secondary to nephrotic syndrome. He w as discharged July 01 with an increased dose of Lasix. He underwent a kidney biopsy on July 02 however he does not yet know the results. He reports taking his Lasix daily but has continued to notice an increase in swelling in his upper and lower extremities. He reports dyspnea on exertion. In the emergency department chest x-ray showed small bilateral pleural effusions without evidence of CHF for pulmonary edema. he was not hypoxic. he received a dose of IV Lasix. The remainder of his lab work was unremarkable with the exception of random glucose of 53. Patient was asymptomatic, given snacks and repeat POC is pending at this time. Review of Systems Review of Systems: Yes all other systems are reviewed and are negative Constitutional: Constitutional: Denies chills and Denies fever(s) Cardiovascular: Cardiovascular: Denies chest pain Respiratory: Respiratory: Denies cough Gastrointestinal: Gastrointestinal: Denies abdominal pain [facility] Medical History CHF (congestive heart failure), NYHA class I Congestive heart failure Diabetes 1.5, managed as type 2 Diverticulosis Hiatal hernia History of small bowel obstruction Hyperlipidemia Hypertension Hypothyroidism Nephrotic syndrome Family history: reviewed and not pertinent Social History Household Members: None Housing: Apartment Alcohol intake: former Smoking Status: Former smoker Use of substances other than those prescribed or required for medical reasons: No Advance Directives: Yes Advance Directives on File: Yes Advance Directives Date on File: 05/01/20 service: No Current occupational status: unemployed and disabled Meds Allergies Allergy/AdvReac Type Severity Reaction Status Date / Time Penicillins Allergy Unknown UNKWN Verified 04/23/20 13:49 Home Medications Medication Instructions Recorded Confirmed Type Januvia 100 mg PO DAILY 04/23/20 07/26/20 History simvastatin 40 mg PO DAILY 04/23/20 07/26/20 History levothyroxine 75 mcg PO DAILY 06/27/20 07/26/20 History lisinopril 2.5 mg PO DAILY 06/27/20 07/26/20 History amlodipine 5 mg PO DAILY 07/26/20 07/26/20 History furosemide 40 mg PO BIDWM 07/26/20 07/26/20 History glipizide 10 mg PO DAILY 07/26/20 07/26/20 History metformin 1,000 mg PO BIDWM 07/26/20 07/26/20 History metolazone 2.5 mg PO DAILY 07/26/20 07/26/20 History Physical Exam 2 Vital Signs and Narrative: Vital Signs: Last Vital Signs Temp 97.6 F 07/26/20 16:13 Pulse 85 07/26/20 18:00 Resp 20 07/26/20 18:00 BP 139/80 07/26/20 18:00 Pulse Ox 99 07/26/20 18:00 Body Mass Index 41.8 Const: Nutritional Appearance: well nourished Orientation/consciousness: patient oriented x3 HENMT: Head: Yes normocephalic and Yes atraumatic Eyes: Sclerae: sclerae normal Chest: Chest palpation & inspection: normal inspection of the chest Resp: Effort & Inspection: normal respiratory effort and no respiratory distress Auscultation: clear to auscultation bilaterally Cardio: Rate: regular rate Rhythm: regular rhythm Heart sounds: Murmur heart sound present systolic GI: Palpation (GI): Soft to palpation and nontender Skin: General skin exam: no rashes or lesions noted Neuro: General: patient oriented x3 Cranial nerves: Yes CN's II-XII intact bilaterally and Yes Bilaterally intact EOM present Extrem: Other: Bilateral upper and lower extremity pitting edema Results Labs CBC and Chem 7: 07/27/20 06:30 07/27/20 09:31 Labs: Laboratory Results - last 24 hr 07/26/20 07/26/20 07/26/20 17:59 17:59 17:59 MCV 92.4 MCH 31.5 MCHC 34.1 RDW 13.4 Plt Count 388 MPV 9.6 Immature Gran % (Auto) 1.1 H Neut % (Auto) 65.7 Lymph % (Auto) 21.7 [place] % (Auto) 6.3 Eos % (Auto) 4.2 H Baso % (Auto) 1.0 Lymph # (Auto) 1.3 [place] # (Auto) 0.4 Eos # (Auto) 0.3 Baso # (Auto) 0.1 Abs Immat Gran (auto) 0.07 H Absolute Neuts (auto) 4.1 Absolute Nucleated RBC 0.000 Nucleated RBC % (auto) 0.0 Hold Blue Top SEE NOTE Anion Gap 14 Estim Creat Clear Calc 76.1 Estimated GFR 52 Random Glucose 53 L* Calcium 7.7 L Total Bilirubin 0.2 Direct Bilirubin < 0.2 AST 34 D ALT 18 Alkaline Phosphatase 70 B-Natriuretic Peptide Total Protein 4.8 L Albumin 1.8 L COVID-19 ([facility]) COVID-19 Clin Com 07/26/20 07/26/20 17:59 17:59 MCV MCH MCHC RDW Plt Count MPV Immature Gran % (Auto) Neut % (Auto) Lymph % (Auto) [place] % (Auto) Eos % (Auto) Baso % (Auto) Lymph # (Auto) [place] # (Auto) Eos # (Auto) Baso # (Auto) Abs Immat Gran (auto) Absolute Neuts (auto) Absolute Nucleated RBC Nucleated RBC % (auto) Hold Blue Top Anion Gap Estim Creat Clear Calc Estimated GFR Random Glucose Calcium Total Bilirubin Direct Bilirubin AST ALT Alkaline Phosphatase B-Natriuretic Peptide 46 Total Protein Albumin COVID-19 ([facility]) Negative COVID-19 Clin Com See Note Imaging Radiologist's Impressions: Impressions Chest X-Ray 07/26/20 17:46 IMPRESSION: Bilateral small pleural effusions. No gross evidence of CHF or pulmonary edema. Assessment and Plan (1) Fluid overload: Status: Acute (2) Nephrotic syndrome: Status: Acute This is a 64-year-old male with history of diabetes, hypertension, hypothyroidism, nephrotic syndrome here with increasing lower extremity edema be admitted for fluid overload Fluid overload in setting of Nephrotic syndrome -IV Lasix -nephrology consult Hypertension -continue Lisinopril, norvasc on hold Diabetes -hold PO meds for episode of hypoglycemia -SSI, POC, ADA diet Hypothyroidism Continue Synthroid HLD -Continue statin DVT prophylaxis-Lovenox Code status-full code
[2020-07-26 20:03] VITALS: BP 124/73; PULSE 105; RESP 18; O2SAT 98
[2020-07-26 20:16] LABS: Glucose, Whole Blood 66 mg/dL (60-115)
[2020-07-26 20:22] LABS: Glucose Urine UA 250 MG/DL (NEG); Leukocyte Esterase Urine NEG (NEG); Nitrite Urine NEG (NEG); Specific Gravity - Urine 1.025 (1.005-1.025); Urine Blood 3+ (NEG); Urine Ketones 15 MG/DL (NEG); Urine Protein 3+ MG/DL (NEG-TRACE)
[2020-07-26] MEDS: Enoxaparin Sodium 40 MG/0.4 ML SYRINGE SUBCUT (20:22)
[2020-07-26 20:28] LABS: Appearance Urine HAZY; Color Urine YELLOW
--- NOTE | 2020-07-26 20:28 | PC.NURSE ---
Patient ambulated to bathroom with no increase in shortness of breath. Patient medicated per emar. Repeat blood sugar is 66. Patient given another juice and sandwich.
[2020-07-26 20:29] VITALS: BP 137/71; PULSE 99; RESP 14
[2020-07-26 20:36] LABS: Squamous Epithelial Cell Urine TRACE /LPF
[2020-07-26 20:37] LABS: Amorphous Sediment Urine 1+ /LPF
--- NOTE | 2020-07-26 20:47 | PM.EVENT ---
Event Note Date of Service: 07/26/20 Event Note: Admission note the patient was seen and evaluated with CHRISTIAN Bowden. I agree with her note, assessment and plan with the following. In summary, 64 years old male with PMH of nephrotic syndrome, diabetes among others who presented to the hospital with increased lower extremity swelling and increased weight. The patient was discharged last month on a higher dose of Lasix for nephrotic syndrome and went to kidney biopsy which the result is not available at time of admission. A gain at least 8 kilos since discharge. Admitted for further evaluation treatment. Nephrotic syndrome Fluid overload Start IV Lasix b.i.d. Will need higher dose of diuretics at discharge Consult Nephrology Hypoglycemia Likely secondary to oral hypoglycemic agents, to hold Rest of evaluations by PA note.
[2020-07-26 21:21] LABS: Glucose, Whole Blood 109 mg/dL (60-115)
--- NOTE | 2020-07-26 21:40 | PC.NURSE ---
Repeat blood sugar of 106 and per protocol zero units of insulin coverage
--- NOTE | 2020-07-27 05:31 | PC.NURSE ---
Patient is sleeping at this time. Patient having no issues. Respiratory rate equal and unlabored. Patient is able to ambulate to bathroom without any issue
[2020-07-27 06:16] VITALS: BP 139/80; PULSE 82; RESP 18; TEMP 36.4; O2SAT 99
[2020-07-27 06:35] LABS: Basophils Absolute Auto 0.1 X10*3/uL (0.0-0.2); Eosinophils Absolute Auto 0.4 X10*3/uL (0.0-0.4); Eosinophils Percent Auto 8.2 % (0-4); Hematocrit 34.1 % (42-52); Hemoglobin 11.7 g/dl (14.0-18.0); Imm Gran Abs Auto 0.02 X10*3/uL (0.00-0.03); Imm Gran Pct Auto 0.4 % (0.0-0.4); Lymphocytes Absolute Auto 1.8 X10*3/uL (1.2-4.9); Lymphocytes Percent Auto 33.4 % (20-40); MANUAL DIFF FLAG NO; Mean Corpuscular HGB Conc 34.3 g/dl (31.0-36.0); Mean Corpuscular Hemoglobin 31.7 pg (27.0-33.0); Mean Corpuscular Volume 92.4 fL (80-98); Mean Platelet Volume 9.2 fL (9.4-12.4); Monocytes Absolute Auto 0.5 X10*3/uL (0.1-1.2); Monocytes Percent Auto 9.5 % (2-11); Neutrophils Absolute Auto 2.5 X10*3/uL (2.0-8.3); Neutrophils Percent Auto 47.5 % (45-73); Platelet Count 319 X10*3/uL (160-400); Red Blood Count 3.69 X10*6/uL (4.60-5.80); Red Cell Distribution Width 13.6 % (11.0-16.0); White Blood Count 5.2 X10*3/uL (4.8-10.8)
--- NOTE | 2020-07-27 06:51 | PC.NURSE ---
RECOLLECT BMP NEEDED. PRIMARY RN ASHLEE AWARE.
[2020-07-27] MEDS: Furosemide 40 MG/4 ML VIAL IVPUSH ×2 (07:41→22:11)
[2020-07-27 07:48] LABS: Glucose, Whole Blood 88 mg/dL (60-115)
[2020-07-27] MEDS: 0.9 % Sodium Chloride Flush 3 ML SYRINGE IVFLUSH ×2 (08:00→16:59)
[2020-07-27 09:17] VITALS: BP 139/80
[2020-07-27] MEDS: Atorvastatin Calcium 20 MG TABLET PO (09:17)
[2020-07-27] MEDS: Levothyroxine Sodium 75 MCG TABLET PO (09:17)
[2020-07-27] MEDS: lisinopriL 2.5 MG TABLET PO (09:17)
[2020-07-27 10:14] LABS: Anion Gap 13 (12-20); Blood Urea Nitrogen 23 mg/dL (9-16); Calcium 7.5 mg/dL (8.4-10.2); Carbon Dioxide 19 mmol/L (22-29); Chloride 109 mmol/L (96-108); Creatinine Clr Calc Pharmacy 76.1; Estimated Glomerular Filt Rate 52; Glucose Random 86 mg/dL (60-115); Potassium 3.9 mmol/l (3.3-5.1); Sodium 137 mmol/L (135-145)
[2020-07-27] MEDS: metOLazone 2.5 MG TABLET PO (11:02)
[2020-07-27 11:07] VITALS: BP 150/90; PULSE 82; RESP 18; O2SAT 99
[2020-07-27 12:05] LABS: Glucose, Whole Blood 83 mg/dL (60-115)
--- NOTE | 2020-07-27 15:14 | P.PNIM_ITS ---
Subjective Subjective Date of Service: 07/27/20 Interval History: patient seen and examined at bedside patient still reporting significant swelling Review of Systems Constitutional: + weight gain, No Fever, No Chills Cardiovascular: No Chest Pain, + SOB, + Dyspnea on Exertion, + Orthopnea, + Edema, No Palpitations Respiratory: No Cough, No Sputum, No Wheezing Gastrointestinal: No Nausea, No Vomiting, No Diarrhea, No Constipation, + ab dominal distension Genitourinary: No irregular bleeding, No Dysuria, No Urinary Frequency, No Hematuria Musculoskeletal: No joint pain, No Myalgias Skin: No Skin Lesions, No rash Constitutional Constitutional: Denies chills and Denies fever(s) Cardiovascular Cardiovascular: Denies chest pain Respiratory Respiratory: Denies cough Gastrointestinal Gastrointestinal: Denies abdominal pain Physical Exam Vital Signs: Vital Signs: Last Vital Signs Temp 97.5 F 07/27/20 06:16 Pulse 82 07/27/20 11:07 Resp 18 07/27/20 11:07 BP 150/90 H 07/27/20 11:07 Pulse Ox 99 07/27/20 11:07 Body Mass Index 41.8 Const: General: cooperative Nutritional Appearance: well nourished Orientation/consciousness: patient oriented x3 Limitations: no limitations HENMT: Head: Yes normocephalic and Yes atraumatic Ears: hearing grossly normal bilaterally General nose exam: Normal external nose present Face and sinus: Yes normal facial exam Eyes: General: appearance normal, both eyes and all related structures Sclerae: sclerae normal EOM: EOMs intact bilaterally Neck: Neck: Yes normal visual inspection Chest: Chest palpation & inspection: normal inspection of the chest Resp: Effort & Inspection: normal respiratory effort and no respiratory distress Auscultation: clear to auscultation bilaterally Cardio: Rate: regular rate Rhythm: regular rhythm Heart sounds: Murmur heart sound present systolic GI: Inspection: Yes normal to inspection and Yes distended Palpation (GI): Soft to palpation and nontender Skin: General skin exam: no rashes or lesions noted Rashes: no rashes Wounds: no wounds Neuro: General: patient oriented x3 Cranial nerves: Yes CN's II-XII intact bilaterally and Yes Bilaterally intact EOM present Gait exam (Neuro): Normal gait present Extrem: Other: Bilateral upper and lower extremity pitting edema Objective Data Current Medications Generic Name Dose Route Start Last Admin Trade Name Freq PRN Reason Stop Dose Admin Acetaminophen 650 mg 07/26/20 19:36 Acetaminophen 325 Mg Tablet PO Q6H PRN Pain, Mild (Pain Scale 1-3) Atorvastatin Calcium 20 mg 07/27/20 09:00 07/27/20 09:17 Atorvastatin Calcium 20 Mg Tablet PO 20 mg DAILY ROSALIA Administration Docusate Sodium 100 mg 07/26/20 19:36 Docusate Sodium 100 Mg Capsule PO DAILY PRN Constipation Enoxaparin Sodium 40 mg 07/26/20 19:36 07/26/20 20:22 Enoxaparin Sodium 40 Mg/0.4 Ml Syringe SUBCUT 40 mg Q24H ROSALIA Administration Furosemide 40 mg 07/27/20 07:00 07/27/20 07:41 Furosemide 40 Mg/4 Ml Vial IVPUSH 40 mg Q12H ROSALIA Administration Protocol Insulin Human Lispro 0 unit 07/26/20 21:00 07/27/20 12:18 Insulin Lispro 100 Unit/Ml 3 Ml Vial SUBCUT Not Given QIDACHS [facility] Protocol Levothyroxine Sodium 75 mcg 07/27/20 09:00 07/27/20 09:17 Levothyroxine Sodium 75 Mcg Tablet PO 75 mcg DAILY ROSALIA Administration Lisinopril 2.5 mg 07/27/20 09:00 07/27/20 09:17 Lisinopril 2.5 Mg Tablet PO 2.5 mg DAILY ROSALIA Administration Protocol Metolazone 2.5 mg 07/27/20 09:00 07/27/20 11:02 Metolazone 2.5 Mg Tablet PO 2.5 mg DAILY ROSALIA Administration Ondansetron HCl 4 mg 07/26/20 19:36 Ondansetron Hcl 4 Mg/2 Ml Vial IVPUSH Q8H PRN Nausea and Vomiting Pharmacy Consult 1 each 07/26/20 19:05 Consult Rx Perform Med Rec MISCELLANE ONCE PRN Consult order Sodium Chloride 3 ml 07/27/20 00:00 07/27/20 08:00 0.9 % Sodium Chloride Flush 3 Ml Syringe IVFLUSH 3 ml QSHIFT ROSALIA Administration Labs CBC & Chem 7: 07/27/20 06:30 07/27/20 09:31 Assessment and Plan (1) Fluid overload: Status: Acute (2) Nephrotic syndrome: Status: Acute Assessment and Plan: This is a 64-year-old male with history of diabetes, hypertension, hypothyroidism, nephrotic syndrome here with increasing lower extremity edema be admitted for fluid overload Fluid overload in setting of Nephrotic syndrome still have significant generalized swelling continue IV Lasix continue metolazone -nephrology consult pending fluid restriction monitor intake output Hypertension -continue Norvasc, lisinopri Diabetes -hold PO meds for episode of hypoglycemia -SSI, POC, ADA diet Hypothyroidism Continue Synthroid HLD -Continue statin DVT prophylaxis-Lovenox
[2020-07-27 20:16] VITALS: BP 158/84; PULSE 86; RESP 19; TEMP 36.7; O2SAT 94
[2020-07-27 20:26] LABS: Glucose, Whole Blood 101 mg/dL (60-115)
[2020-07-27] MEDS: Enoxaparin Sodium 40 MG/0.4 ML SYRINGE SUBCUT (22:11)
[2020-07-28] VITALS (10 sets, daily range): BP systolic 122–152; BP diastolic 67–94; PULSE 75–92; RESP 18–20; TEMP 36.1–36.8; O2SAT 96–99
[2020-07-28] MEDS: 0.9 % Sodium Chloride Flush 3 ML SYRINGE IVFLUSH ×4 (01:29→20:10)
[2020-07-28] MEDS: Furosemide 40 MG/4 ML VIAL IVPUSH (06:26)
[2020-07-28 07:38] LABS: Glucose, Whole Blood 82 mg/dL (60-115)
[2020-07-28 07:39] LABS: Anion Gap 14 (12-20); Blood Urea Nitrogen 21 mg/dL (9-16); Calcium 7.9 mg/dL (8.4-10.2); Carbon Dioxide 19 mmol/L (22-29); Chloride 109 mmol/L (96-108); Creatinine Clr Calc Pharmacy 80.2; Estimated Glomerular Filt Rate 55; Glucose Random 98 mg/dL (60-115); Potassium 3.9 mmol/l (3.3-5.1); Sodium 138 mmol/L (135-145)
--- NOTE | 2020-07-28 09:29 | P.CONNP_ITS ---
History of Present Illness Reason for Consult Consult date: 07/28/20 Reason for consult: Nephrotic syndrome, anasarca Requesting physician: Angely Jason Chief Complaint Chief complaint: Fluid overload History of Present Illness Narrative: chief complaint: edema and weeping legs Mr. 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 This is his third presentation with nephrotic anasarca. He was discharged 07/01 and since then has reaccumulated edema, vol overload, large 30-40 lb weight gain. He has nephrotic syndrome and new dx of MGN. He had been taking advil intermittently. He has not yet been treated for MGN other than escalating SHOSHANA I which it is unclear whether he has done and diuretics which have been ineffective acc to pt; he is on a high sodium diet. PMH notable for longstanding DM, HTN as well and CHF. Review of Systems Review of Systems Constitutional: + weight gain, No Fever, No Chills Cardiovascular: No Chest Pain, + SOB, + Dyspnea on Exertion, + Orthopnea, + Edema, No Palpitations Respiratory: No Cough, No Sputum, No Wheezing Gastrointestinal: No Nausea, No Vomiting, No Diarrhea, No Constipation, + abdominal distension Genitourinary: No irregular bleeding, No Dysuria, No Urinary Frequency, No Hematuria Musculoskeletal: No joint pain, No Myalgias Skin: No Skin Lesions, No rash Yes all other systems are reviewed and are negative [facility] Past Medical History Medical History CHF (congestive heart failure), NYHA class I Congestive heart failure Diabetes 1.5, managed as type 2 Diverticulosis Hiatal hernia History of small bowel obstruction Hyperlipidemia Hypertension Hypothyroidism Nephrotic syndrome Family History Family history: reviewed and not pertinent Social History Social History Household Members: None Housing: Apartment Do you presently have visiting nurse or other home services: Yes Alcohol intake: former Smoking Status: Former smoker Smoked in Last 30 Days: No Patient Interested in Nicotine Replacement: No Patient Given Instructions on How to Stop Smoking: No Second Hand Smoke Exposure: No Use of substances other than those prescribed or required for medical reasons: No Currently Displaying Signs/Symptoms of Drug Intoxication Withdrawal: No Any prior treatment program specific to substance use: No Have you been hit, kicked, punched, or otherwise hurt by someone within the past year? If so, by whom?: No Do you feel safe in your current relationship?: No Current Relationship Is there a partner from a previous relationship who is making you feel unsafe now?: No Are you made to feel afraid or neglected: No Advance Directives: Yes Advance Directives on File: Yes Advance Directives Date on File: 05/01/20 Do you have thoughts of harming others: None Do you have a plan to hurt others: No Plan Recently lost weight without trying: No service: No Current occupational status: unemployed and disabled Meds Allergies Allergy/AdvReac Type Severity Reaction Status Date / Time Penicillins Allergy Unknown UNKWN Verified 04/23/20 13:49 Home Medications Medication Instructions Recorded Confirmed Type Januvia 100 mg PO DAILY 04/23/20 07/26/20 History simvastatin 40 mg PO DAILY 04/23/20 07/26/20 History levothyroxine 75 mcg PO DAILY 06/27/20 07/26/20 History lisinopril 2.5 mg PO DAILY 06/27/20 07/26/20 History amlodipine 5 mg PO DAILY 07/26/20 07/26/20 History furosemide 40 mg PO BIDWM 07/26/20 07/26/20 History glipizide 10 mg PO DAILY 07/26/20 07/26/20 History metformin 1,000 mg PO BIDWM 07/26/20 07/26/20 History metolazone 2.5 mg PO DAILY 07/26/20 07/26/20 History Physical Exam Vital Signs: Last Vital Signs Temp 97.0 F 07/28/20 08:00 Pulse 75 07/28/20 07:44 Resp 20 07/28/20 07:44 BP 149/74 H 07/28/20 07:44 Pulse Ox 99 07/28/20 07:44 Body Mass Index 41.8 Const General: cooperative Nutritional Appearance: well nourished Orientation/consciousness: patient oriented x3 Limitations: no limitations HENMT Head: Yes normal to inspection, Yes normocephalic and Yes atraumatic Ears: hearing grossly normal bilaterally General nose exam: Normal external nose present Face and sinus: Yes normal facial exam Eyes General: appearance normal, both eyes and all related structures Sclerae: sclerae normal EOM: EOMs intact bilaterally Neck Neck: Yes normal visual inspection Chest Chest palpation & inspection: normal inspection of the chest Resp Effort & Inspection: normal respiratory effort, no respiratory distress and no stridor Auscultation: clear to auscultation bilaterally, no rhonchi and no wheezes Cardio Rate: regular rate Rhythm: regular rhythm Heart sounds: S1 normal heart sound present, S2 normal heart sound present and Murmur heart sound present systolic GI Inspection: Yes normal to inspection and Yes distended Palpation (GI): Soft to palpation, Firmness to palpation present (GI), nontender, no guarding and not rigid Skin General skin exam: no rashes or lesions noted Rashes: no rashes Wounds: no wounds Neuro General: patient oriented x3 Cranial nerves: Yes CN's II-XII intact bilaterally and Yes Bilaterally intact EOM present Gait exam (Neuro): Normal gait present Extrem Other: Bilateral upper and lower extremity pitting edema Results Lab Results Result Diagrams: 07/27/20 06:30 07/28/20 05:52 Lab results: Chemistry 07/26/20 07/27/20 07/27/20 17:59 06:30 09:31 Sodium 137 Cancelled 137 Potassium 4.2 Cancelled 3.9 Carbon Dioxide 19 L Cancelled 19 L BUN 22 H Cancelled 23 H Creatinine 1.38 Cancelled 1.38 Calcium 7.7 L Cancelled 7.5 L 07/28/20 05:52 Sodium 138 Potassium 3.9 Carbon Dioxide 19 L BUN 21 H Creatinine 1.31 Calcium 7.9 L Hematology 07/26/20 07/27/20 17:59 06:30 WBC 6.2 5.2 Hgb 13.2 L 11.7 L Plt Count 388 319 Urinalysis 07/26/20 20:13 Urine Color YELLOW Urine Appearance HAZY Urine pH 6.0 Ur Specific [place] 1.025 Urine Protein 3+ H Urine Glucose (UA) 250 H Urine Ketones 15 Urine Blood 3+ H Urine Nitrite NEG Ur Leukocyte Esterase NEG Urine RBC 10-14 H Urine WBC 1-4 Ur Squamous Epith Cells TRACE Hyaline Casts 10-14 Assessment and Plan (1) Fluid overload: Problem details: This patient has nephrotic syndrome causing his sodium and fluid retention. He needs to be treated with maximum dose SHOSHANA I: suggest increase to 40 mg bid along with higher dose of diuretics: suggest 80 mg IV q 8 hrs. The maximizing of his SHOSHANA I will allow for reduction in proteinuria which is the driving force for sodium retention. Status: Acute (2) Nephrotic syndrome: Problem details: Due to biopsy proven MGN: the treatment of this disorder is first maximal SHOSHANA I and diuretics and observation period of spontaneous remission; he has not remitted now in 3 months. Other therapeutic considerations are being undertaken by his primary parts cleaner Dr. Ribeiro Status: Acute (3) CKD (chronic kidney disease) stage 3, GFR 30-59 ml/min: 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 Status: Acute 64 yo obese man with nephrotic syndrome, anasarca and HTN. PLan is to maximize SHOSHANA I therapy: increase to 40 mg daily for now with plan to go to 40 bid Also, increase his furosemide to 80 mg q 8 hrs to maximize diuresis rate while watching daily lytes and creat. Low sodium and low protein diet Discontinuation and avoidance of all NSAIDS
[2020-07-28] MEDS: Atorvastatin Calcium 20 MG TABLET PO (09:32)
[2020-07-28] MEDS: metOLazone 2.5 MG TABLET PO (09:32)
[2020-07-28] MEDS: Levothyroxine Sodium 75 MCG TABLET PO (09:32)
[2020-07-28] MEDS: lisinopriL 2.5 MG TABLET PO (09:32)
[2020-07-28] MEDS: lisinopriL 10 MG TABLET 30 MG PO (11:15)
[2020-07-28] MEDS: Furosemide 40 MG/4 ML VIAL 80 MG IVPUSH ×2 (11:15→18:14)
[2020-07-28 11:24] LABS: Glucose, Whole Blood 119 mg/dL (60-115)
--- NOTE | 2020-07-28 14:24 | HO.PM.IMPN ---
Subjective Subjective Date of Service: 07/28/20 Interval History: Patient being followed for nephrotic syndrome/fluid overload, patient feels generalized edema is improving, complaining of difficulty in ambulation , denies shortness of breath denies lightheadedness dizziness. Review of Systems General no headache, no dizziness no fever chills. CVS no chest pain, no palpitation. Respiratory no cough, no sputum production, no respiratory distress. Gastrointestinal no nausea, no vomiting, no abdominal pain Physical Exam Vital Signs: Vital Signs: Last Vital Signs Temp 97.2 F 07/28/20 12:00 Pulse 85 07/28/20 12:00 Resp 18 07/28/20 12:00 BP 124/79 07/28/20 12:00 Pulse Ox 99 07/28/20 12:00 Body Mass Index 41.8 Const: Other: General sitting comfortably in no acute distress. Neck supple no JVD. CVS regular rate rhythm, Respiratory lungs clear to auscultation, no respiratory distress Gastrointestinal abdomen soft, obese, nontender, bowel sounds audibleno guarding , no rigidity. Extremities significant generalized edema both upper and lower extremities. Neuro nonfocal speech clear. Skin dry scaly, no open wounds Objective Data Current Medications Generic Name Dose Route Start Last Admin Trade Name Freq PRN Reason Stop Dose Admin Acetaminophen 650 mg 07/26/20 19:36 Acetaminophen 325 Mg Tablet PO Q6H PRN Pain, Mild (Pain Scale 1-3) Atorvastatin Calcium 20 mg 07/27/20 09:00 07/28/20 09:32 Atorvastatin Calcium 20 Mg Tablet PO 20 mg DAILY ROSALIA Administration Docusate Sodium 100 mg 07/26/20 19:36 Docusate Sodium 100 Mg Capsule PO DAILY PRN Constipation Enoxaparin Sodium 40 mg 07/26/20 19:36 07/27/20 22:11 Enoxaparin Sodium 40 Mg/0.4 Ml Syringe SUBCUT 40 mg Q24H ROSALIA Administration Furosemide 80 mg 07/28/20 10:45 07/28/20 11:15 Furosemide 40 Mg/4 Ml Vial IVPUSH 80 mg Q8H ROSALIA Administration Protocol Insulin Human Lispro 0 unit 07/26/20 21:00 07/28/20 11:28 Insulin Lispro 100 Unit/Ml 3 Ml Vial SUBCUT Not Given [facility]HS [facility] Protocol Levothyroxine Sodium 75 mcg 07/27/20 09:00 07/28/20 09:32 Levothyroxine Sodium 75 Mcg Tablet PO 75 mcg DAILY ROSALIA Administration Lisinopril 40 mg 07/29/20 09:00 Lisinopril 40 Mg Tablet PO DAILY [facility] Protocol Ondansetron HCl 4 mg 07/26/20 19:36 Ondansetron Hcl 4 Mg/2 Ml Vial IVPUSH Q8H PRN Nausea and Vomiting Pharmacy Consult 1 each 07/26/20 19:05 Consult Rx Perform Med Rec MISCELLANE ONCE PRN Consult order Sodium Chloride 3 ml 07/27/20 00:00 07/28/20 09:32 0.9 % Sodium Chloride Flush 3 Ml Syringe IVFLUSH 3 ml QSHIFT [facility] Administration Labs CBC & Chem 7: 07/27/20 06:30 07/28/20 05:52 Assessment and Plan (1) Fluid overload: Problem details: This patient has nephrotic syndrome causing his sodium and fluid retention. He needs to be treated with maximum dose SHOSHANA I: suggest increase to 40 mg bid along with higher dose of diuretics: suggest 80 mg IV q 8 hrs. The maximizing of his SHOSHANA I will allow for reduction in proteinuria which is the driving force for sodium retention. Status: Acute (2) Nephrotic syndrome: Problem details: Due to biopsy proven MGN: the treatment of this disorder is first maximal SHOSHANA I and diuretics and observation period of spontaneous remission; he has not remitted now in 3 months. Other therapeutic considerations are being undertaken by his primary human services worker Dr. 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 Sanchez she recommend to increase dose of SHOSHANA-inhibitor to 40 mg daily and to increase dose of IV Lasix to 80 mg q.8 hours will follow strict I's and O's daily weight Will place patient on low-sodium and low-protein diet Will strongly recommend to avoid all NSAIDs Follow daily BMP while being diuresed Chronic kidney disease stage 3 GFR 30-59 Hypertension BP elevated will increase dose of lisinopril to 40 mg daily, will discontinue Norvasc Diabetes Blood sugars is stable continue to hold oral hypoglycemic due to low blood sugars continue SSI, POC, ADA diet Hypothyroidism Continue Synthroid HLD Continue statin DVT prophylaxis-Lovenox Code status-full code
--- NOTE | 2020-07-28 15:14 | MHC.CM.PN ---
Pt reports he lives alone and is independent with self care and mobility. Pt reports he is active with a [facility]NA but does not know which one. per previous records he was active with [facility], message left for them to confirm. Pt reports he does not want to complete a HCP today but would like to take one when he discharges. Pt confirms his PCP is meka Tapia. [facility]MM delivered current DC plan is home with resumption of [facility] pt will self arrange transport
[2020-07-28 16:25] LABS: Glucose, Whole Blood 114 mg/dL (60-115)
[2020-07-28] MEDS: Enoxaparin Sodium 40 MG/0.4 ML SYRINGE SUBCUT (20:04)
[2020-07-28 20:11] LABS: Glucose, Whole Blood 128 mg/dL (60-115)
[2020-07-29] VITALS (7 sets, daily range): BP systolic 118–142; BP diastolic 66–80; PULSE 74–95; RESP 18–22; TEMP 36.1–36.9; O2SAT 95–98; BMI 41.8
[2020-07-29] MEDS: Furosemide 40 MG/4 ML VIAL 80 MG IVPUSH ×3 (04:10→18:37)
[2020-07-29 06:59] LABS: Anion Gap 15 (12-20); Blood Urea Nitrogen 20 mg/dL (9-16); Calcium 7.9 mg/dL (8.4-10.2); Carbon Dioxide 22 mmol/L (22-29); Chloride 105 mmol/L (96-108); Creatinine Clr Calc Pharmacy 77.8; Estimated Glomerular Filt Rate 53; Glucose Random 93 mg/dL (60-115); Potassium 3.9 mmol/l (3.3-5.1); Sodium 138 mmol/L (135-145)
[2020-07-29 07:34] LABS: Glucose, Whole Blood 99 mg/dL (60-115)
[2020-07-29] MEDS: lisinopriL 40 MG TABLET PO (08:39)
[2020-07-29] MEDS: Atorvastatin Calcium 20 MG TABLET PO (08:39)
[2020-07-29] MEDS: Levothyroxine Sodium 75 MCG TABLET PO (08:39)
[2020-07-29] MEDS: 0.9 % Sodium Chloride Flush 3 ML SYRINGE IVFLUSH ×2 (08:39→16:49)
--- NOTE | 2020-07-29 10:58 | MHC.CM.PN ---
Per ROUNDS discussion, Patient is not yet medically cleared for dc and still requiring IV Lasix. Goal for dc is home/resume VNA.; CM will continue to follow for dc planning and possible need to adjust the dc plan.
[2020-07-29 11:36] LABS: Glucose, Whole Blood 112 mg/dL (60-115)
[2020-07-29] MEDS: Acetaminophen 325 MG TABLET 650 MG PO (11:47)
--- NOTE | 2020-07-29 11:51 | P.PNIM_ITS ---
Subjective Subjective Date of Service: 07/29/20 Interval History: Patient being followed for generalized edema, feels edema is improving but still with significant bilateral lower extremity edema, denies shortness of breath, no chest pain, no other acute overnight issues. Review of Systems General no headache, no dizziness, no fever, chills. CVS no chest pain, no palpitation. Respiratory no cough, no sputum production, no respiratory distress. Gastrointestinal no nausea, no vomiting, no abdominal pain Physical Exam Vital Signs: Vital Signs: Last Vital Signs Temp 101.0 F H 07/29/20 11:42 Pulse 95 07/29/20 11:42 Resp 22 H 07/29/20 11:42 BP 102/66 07/29/20 11:42 Pulse Ox 95 07/29/20 11:42 Body Mass Index 41.8 Const: Other: General sitting comfortably in no acute distress. Neck supple no JVD. CVS regular rate rhythm, Respiratory lungs clear to auscultation, no respiratory distress Gastrointestinal abdomen soft, obese, nontender, bowel sounds audible, no guarding , no rigidity. Extremities significant generalized edema both upper and lower extremities, no open wounds lower extremity. Neuro nonfocal speech clear. Skin dry scaly by both lower legs Objective Data Current Medications Generic Name Dose Route Start Last Admin Trade Name Freq PRN Reason Stop Dose Admin Acetaminophen 650 mg 07/26/20 19:36 07/29/20 11:47 Acetaminophen 325 Mg Tablet PO 650 mg Q6H PRN Administration Pain, Mild (Pain Scale 1-3) Atorvastatin Calcium 20 mg 07/27/20 09:00 07/29/20 08:39 Atorvastatin Calcium 20 Mg Tablet PO 20 mg DAILY ROSALIA Administration Docusate Sodium 100 mg 07/26/20 19:36 Docusate Sodium 100 Mg Capsule PO DAILY PRN Constipation Enoxaparin Sodium 40 mg 07/26/20 19:36 07/28/20 20:04 Enoxaparin Sodium 40 Mg/0.4 Ml Syringe SUBCUT 40 mg Q24H ROSALIA Administration Furosemide 80 mg 07/28/20 10:45 07/29/20 10:51 Furosemide 40 Mg/4 Ml Vial IVPUSH 80 mg Q8H ROSALIA Administration Protocol Insulin Human Lispro 0 unit 07/26/20 21:00 07/29/20 11:34 Insulin Lispro 100 Unit/Ml 3 Ml Vial SUBCUT Not Given QIDACHS [facility] Protocol Levothyroxine Sodium 75 mcg 07/27/20 09:00 07/29/20 08:39 Levothyroxine Sodium 75 Mcg Tablet PO 75 mcg DAILY ROSALIA Administration Lisinopril 40 mg 07/29/20 09:00 07/29/20 08:39 Lisinopril 40 Mg Tablet PO 40 mg DAILY ROSALIA Administration Protocol Ondansetron HCl 4 mg 07/26/20 19:36 Ondansetron Hcl 4 Mg/2 Ml Vial IVPUSH Q8H PRN Nausea and Vomiting Pharmacy Consult 1 each 07/26/20 19:05 Consult Rx Perform Med Rec MISCELLANE ONCE PRN Consult order Sodium Chloride 3 ml 07/27/20 00:00 07/29/20 08:39 0.9 % Sodium Chloride Flush 3 Ml Syringe IVFLUSH 3 ml QSHIFT ROSALIA Administration Labs CBC & Chem 7: 07/27/20 06:30 07/29/20 05:20 Assessment and Plan (1) Fluid overload: Status: Acute (2) Nephrotic syndrome: Status: Acute (3) CKD (chronic kidney disease) stage 3, GFR 30-59 ml/min: 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 Status: Acute Assessment and Plan: This is a 64-year-old male with history of diabetes, hypertension, hypothyroidism, nephrotic syndrome here with increasing lower extremity edema and generalized fluid overload Fluid overload in setting of Nephrotic syndrome patient is 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 Case discussed with Nephrology, continue lisinopril 40 mg daily and IV Lasix to 80 mg q.8 hours patient is greater than 6 L negative since admission, no change in weight, will continue to follow strict I's and O's daily weight Continue low-sodium and low-protein diet Will strongly recommend to avoid all NSAIDs Follow daily BMP while being diuresed Chronic kidney disease stage 3 GFR 30-59 Hypertension BP improved continue lisinopril to 40 mg daily, will discontinue Norvasc Diabetes Blood sugars is stable 112 this am, continue to hold oral hypoglycemic due to low blood sugars continue SSI, POC, ADA diet Hypothyroidism Continue Synthroid HLD Continue statin DVT prophylaxis-Lovenox Code status-full code
[2020-07-29 16:46] LABS: Glucose, Whole Blood 92 mg/dL (60-115)
--- NOTE | 2020-07-29 18:09 | PM.PNNEP ---
Subjective Subjective Date of Service: 07/29/20 Interval history: seen and examined. overall feeling better. incr uop Physical Exam Vital Signs: Vital Signs: Last Vital Signs Temp 97.0 F 07/29/20 15:12 Pulse 77 07/29/20 15:12 Resp 18 07/29/20 15:12 BP 142/75 H 07/29/20 15:12 Pulse Ox 98 07/29/20 15:12 Body Mass Index 41.8 Const: General: cooperative Nutritional Appearance: well nourished Orientation/consciousness: patient oriented x3 Limitations: no limitations HENMT: Head: Yes normal to inspection, Yes normocephalic and Yes atraumatic Ears: hearing grossly normal bilaterally General nose exam: Normal external nose present Face and sinus: Yes normal facial exam Eyes: General: appearance normal, both eyes and all related structures Sclerae: sclerae normal EOM: EOMs intact bilaterally Neck: Neck: Yes normal visual inspection Chest: Chest palpation & inspection: normal inspection of the chest Resp: Effort & Inspection: normal respiratory effort, no respiratory distress and no stridor Auscultation: clear to auscultation bilaterally, no rhonchi and no wheezes Cardio: Rate: regular rate Rhythm: regular rhythm Heart sounds: S1 normal heart sound present, S2 normal heart sound present and Murmur heart sound present systolic GI: Inspection: Yes normal to inspection and Yes distended Palpation (GI): Soft to palpation, Firmness to palpation present (GI), nontender, no guarding and not rigid Skin: General skin exam: no rashes or lesions noted Rashes: no rashes Wounds: no wounds Neuro: General: patient oriented x3 Cranial nerves: Yes CN's II-XII intact bilaterally and Yes Bilaterally intact EOM present Gait exam (Neuro): Normal gait present Extrem: Other: Bilateral upper and lower extremity pitting edema Objective Data Labs CBC & Chem 7: 07/27/20 06:30 07/29/20 05:20 Labs: Laboratory Results - last 24 hr 07/28/20 07/29/20 07/29/20 20:07 05:20 07:20 Sodium 138 Potassium 3.9 Chloride 105 Carbon Dioxide 22 Anion Gap 15 BUN 20 H Creatinine 1.35 Estim Creat Clear Calc 77.8 Estimated GFR 53 POC Glucose 128 H 99 Random Glucose 93 Calcium 7.9 L 07/29/20 07/29/20 11:25 16:36 Sodium Potassium Chloride Carbon Dioxide Anion Gap BUN Creatinine Estim Creat Clear Calc Estimated GFR POC Glucose 112 92 Random Glucose Calcium Assessment & Plan Assessment and plan (1) Fluid overload: Status: Acute (2) Nephrotic syndrome: Status: Acute (3) CKD (chronic kidney disease) stage 3, GFR 30-59 ml/min: 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 1. NSYndrome; MGNand given severity he is a candidate for immunosuppression given his high risk factors ( . 10 gm uprot, low albumin) for prog of MGN 2. TBFOL: d/t NSYn; diuresing on iv diuretic..resistant to po diuretics 3.DM 4. HLD REC: cont diuresis w iv diurietic and track WT and swelling, will arrange for Rituxin (steroid sparring)IS regiment, cont high dose SHOSHANA-I as renal func and K tolerate, statin therapy, low salt Time Spent With Patient Time: Total time spent is greater than 50% in coordination of care (as documented) at patient's floor/unit and/or counseling patient:
[2020-07-29] MEDS: Enoxaparin Sodium 40 MG/0.4 ML SYRINGE SUBCUT (18:38)
[2020-07-29 21:20] LABS: Glucose, Whole Blood 102 mg/dL (60-115)
[2020-07-30] VITALS (9 sets, daily range): BP systolic 100–153; BP diastolic 60–82; PULSE 72–85; RESP 18–20; TEMP 36.1–36.9; O2SAT 96–99
[2020-07-30] MEDS: 0.9 % Sodium Chloride Flush 3 ML SYRINGE IVFLUSH ×3 (00:32→16:01)
[2020-07-30] MEDS: Furosemide 40 MG/4 ML VIAL 80 MG IVPUSH (03:27)
[2020-07-30 05:16] LABS: Anion Gap 12 (12-20); Blood Urea Nitrogen 19 mg/dL (9-16); Calcium 7.8 mg/dL (8.4-10.2); Carbon Dioxide 26 mmol/L (22-29); Chloride 104 mmol/L (96-108); Creatinine Clr Calc Pharmacy 71.5; Estimated Glomerular Filt Rate 48; Glucose Random 92 mg/dL (60-115); Potassium 3.1 mmol/l (3.3-5.1); Sodium 139 mmol/L (135-145)
[2020-07-30 07:22] LABS: Glucose, Whole Blood 94 mg/dL (60-115)
[2020-07-30] MEDS: Levothyroxine Sodium 75 MCG TABLET PO (08:10)
[2020-07-30] MEDS: Atorvastatin Calcium 20 MG TABLET PO (08:10)
[2020-07-30] MEDS: lisinopriL 40 MG TABLET PO (08:10)
[2020-07-30] MEDS: Potassium Chloride ER 20 MEQ TAB.ER.PRT 40 MEQ PO (09:09)
--- NOTE | 2020-07-30 10:36 | PM.PNNEP ---
Subjective Subjective Date of Service: 07/30/20 Interval history: seen and examined. overall feeling better. incr uop.. 9Litter diuresis thus far Physical Exam Vital Signs: Vital Signs: Last Vital Signs Temp 97.8 F 07/30/20 07:15 Pulse 79 07/30/20 08:10 Resp 18 07/30/20 07:15 BP 153/73 H 07/30/20 08:10 Pulse Ox 98 07/30/20 07:15 Body Mass Index 41.8 Const: General: cooperative Nutritional Appearance: well nourished Orientation/consciousness: patient oriented x3 Limitations: no limitations HENMT: Head: Yes normal to inspection, Yes normocephalic and Yes atraumatic Ears: hearing grossly normal bilaterally General nose exam: Normal external nose present Face and sinus: Yes normal facial exam Eyes: General: appearance normal, both eyes and all related structures Sclerae: sclerae normal EOM: EOMs intact bilaterally Neck: Neck: Yes normal visual inspection Chest: Chest palpation & inspection: normal inspection of the chest Resp: Effort & Inspection: normal respiratory effort, no respiratory distress and no stridor Auscultation: clear to auscultation bilaterally, no rhonchi and no wheezes Cardio: Rate: regular rate Rhythm: regular rhythm Heart sounds: S1 normal heart sound present, S2 normal heart sound present and Murmur heart sound present systolic GI: Inspection: Yes normal to inspection and Yes distended Palpation (GI): Soft to palpation, Firmness to palpation present (GI), nontender, no guarding and not rigid Skin: General skin exam: no rashes or lesions noted Rashes: no rashes Wounds: no wounds Neuro: General: patient oriented x3 Cranial nerves: Yes CN's II-XII intact bilaterally and Yes Bilaterally intact EOM present Gait exam (Neuro): Normal gait present Extrem: Other: Bilateral upper and lower extremity pitting edema Objective Data Labs CBC & Chem 7: 07/27/20 06:30 07/30/20 04:09 Labs: Laboratory Results - last 24 hr 07/29/20 07/29/20 07/29/20 11:25 16:36 21:14 Sodium Potassium Chloride Carbon Dioxide Anion Gap BUN Creatinine Estim Creat Clear Calc Estimated GFR POC Glucose 112 92 102 Random Glucose Calcium 07/30/20 07/30/20 04:09 07:19 Sodium 139 Potassium 3.1 L D Chloride 104 Carbon Dioxide 26 Anion Gap 12 BUN 19 H Creatinine 1.47 H Estim Creat Clear Calc 71.5 Estimated GFR 48 POC Glucose 94 Random Glucose 92 Calcium 7.8 L Assessment & Plan Assessment and plan (1) Fluid overload: Status: Acute (2) Nephrotic syndrome: Status: Acute (3) CKD (chronic kidney disease) stage 3, GFR 30-59 ml/min: 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 1. NSYndrome; MGN and given severity he is a candidate for immunosuppression given his high risk factors ( . 10 gm uprot, low albumin) for prog of MGN 2. TBFOL: d/t NSYn; diuresing on iv diuretic..relatively resistant to po diuretics 3.DM 4. HLD REC: switch diuretics to PO torsemide 100 bid and aldactone 25 qd and track WT and swelling, will arrange for Rituxin (steroid sparring)IS regiment...will need to be given as outpt , cont high dose SHOSHANA-I as renal func and K tolerate, statin therapy, low salt will need supportive services on d/c to make sure he takes his meds, monitor his weights and gets his labs done Time Spent With Patient Time: Total time spent is greater than 50% in coordination of care (as documented) at patient's floor/unit and/or counseling patient:
[2020-07-30] MEDS: Torsemide 20 MG TABLET 100 MG PO (11:24)
[2020-07-30 11:52] LABS: Glucose, Whole Blood 107 mg/dL (60-115)
--- NOTE | 2020-07-30 16:21 | P.PNIM_ITS ---
Subjective Subjective Date of Service: 07/30/20 Interval History: Patient being followed for fluid overload, feels significantly better this morning with decreased upper and lower extremity swelling able to walk better denies chest pain no shortness of breath no other acute issues overnight. Review of Systems General no headache, no dizziness, no fever chills. CVS no chest pain, no palpitation. Respiratory no cough, no sputum production, no respiratory distress. Gastrointestinal no nausea, no vomiting, no abdominal pain Physical Exam Vital Signs: Vital Signs: Last Vital Signs Temp 98.4 F 07/30/20 15:37 Pulse 79 07/30/20 15:37 Resp 18 07/30/20 15:37 BP 100/82 07/30/20 15:37 Pulse Ox 99 07/30/20 15:37 Body Mass Index 41.8 General sitting comfortably in no acute distress. Neck supple no JVD. CVS regular rate rhythm, Respiratory lungs clear to auscultation, no respiratory distress Gastrointestinal abdomen soft, obese, nontender, bowel sounds audible, no guarding , no rigidity. Extremities significant improvement in generalized edema , no open wounds lower extremity. Neuro nonfocal speech clear. Skin dry scaly both lower legs, no skin breakdown Objective Data Current Medications Generic Name Dose Route Start Last Admin Trade Name Freq PRN Reason Stop Dose Admin Acetaminophen 650 mg 07/26/20 19:36 07/29/20 11:47 Acetaminophen 325 Mg Tablet PO 650 mg Q6H PRN Administration Pain, Mild (Pain Scale 1-3) Atorvastatin Calcium 20 mg 07/27/20 09:00 07/30/20 08:10 Atorvastatin Calcium 20 Mg Tablet PO 20 mg DAILY ROSALIA Administration Docusate Sodium 100 mg 07/26/20 19:36 Docusate Sodium 100 Mg Capsule PO DAILY PRN Constipation Enoxaparin Sodium 40 mg 07/26/20 19:36 07/29/20 18:38 Enoxaparin Sodium 40 Mg/0.4 Ml Syringe SUBCUT 40 mg Q24H ROSALIA Administration Insulin Human Lispro 0 unit 07/26/20 21:00 07/30/20 16:02 Insulin Lispro 100 Unit/Ml 3 Ml Vial SUBCUT Not Given QIDACHS [facility] Protocol Levothyroxine Sodium 75 mcg 07/27/20 09:00 07/30/20 08:10 Levothyroxine Sodium 75 Mcg Tablet PO 75 mcg DAILY ROSALIA Administration Lisinopril 40 mg 07/29/20 09:00 07/30/20 08:10 Lisinopril 40 Mg Tablet PO 40 mg DAILY [facility] Administration Protocol Ondansetron HCl 4 mg 07/26/20 19:36 Ondansetron Hcl 4 Mg/2 Ml Vial IVPUSH Q8H PRN Nausea and Vomiting Pharmacy Consult 1 each 07/26/20 19:05 Consult Rx Perform Med Rec MISCELLANE ONCE PRN Consult order Sodium Chloride 3 ml 07/27/20 00:00 07/30/20 16:01 0.9 % Sodium Chloride Flush 3 Ml Syringe IVFLUSH 3 ml QSHIFT [facility] Administration Spironolactone 25 mg 07/31/20 09:00 Spironolactone 25 Mg Tablet PO DAILY [facility] Protocol Labs CBC & Chem 7: 07/27/20 06:30 07/30/20 04:09 Assessment and Plan (1) Fluid overload: Status: Acute (2) Nephrotic syndrome: Status: Acute (3) CKD (chronic kidney disease) stage 3, GFR 30-59 ml/min: 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 Ribeiro recommend to place patient on oral diuretics torsemide and Aldactone, will continue to follow Is&Os daily weight and BMP Continue low-sodium diet will obtain a nutrition consult since patient requesting for specific foods that he can buy Will strongly recommend to avoid all NSAIDs Follow daily BMP while being diuresed Dr. Ribeiro will arrange for outpatient Rituxan Mild hypokalemia due to diuretics will replace and follow BMP Chronic kidney disease stage 3 GFR 30-59 Hypertension BP improved continue lisinopril to 40 mg daily Diabetes Blood sugars is stable 112 this am, continue to hold oral hypoglycemic due to low blood sugars continue SSI, POC, ADA diet Hypothyroidism Continue Synthroid HLD Continue statin DVT prophylaxis-Lovenox Code status-full code
[2020-07-30 16:36] LABS: Glucose, Whole Blood 110 mg/dL (60-115)
[2020-07-30] MEDS: Enoxaparin Sodium 40 MG/0.4 ML SYRINGE SUBCUT (18:47)
[2020-07-30 19:56] LABS: Glucose, Whole Blood 111 mg/dL (60-115)
[2020-07-31] VITALS: BP 144/69; PULSE 84; RESP 18; TEMP 36.9; O2SAT 97
[2020-07-31] MEDS: 0.9 % Sodium Chloride Flush 3 ML SYRINGE IVFLUSH ×2 (02:03→08:38)
[2020-07-31 03:38] VITALS: BP 133/72; PULSE 80; RESP 18; TEMP 36.2; O2SAT 96
[2020-07-31 06:49] LABS: Anion Gap 12 (12-20); Blood Urea Nitrogen 17 mg/dL (9-16); Calcium 7.6 mg/dL (8.4-10.2); Carbon Dioxide 25 mmol/L (22-29); Chloride 105 mmol/L (96-108); Estimated Glomerular Filt Rate 49; Glucose Random 89 mg/dL (60-115); Potassium 3.4 mmol/l (3.3-5.1); Sodium 139 mmol/L (135-145)
[2020-07-31 07:43] VITALS: BP 124/90; PULSE 78; RESP 20; TEMP 36.7; O2SAT 97
[2020-07-31 07:47] LABS: Glucose, Whole Blood 95 mg/dL (60-115)
[2020-07-31 08:37] VITALS: BP 124/90; PULSE 78
[2020-07-31] MEDS: Spironolactone 25 MG TABLET PO (08:37)
[2020-07-31 08:38] VITALS: BP 124/90; PULSE 78
[2020-07-31] MEDS: Atorvastatin Calcium 20 MG TABLET PO (08:38)
[2020-07-31] MEDS: lisinopriL 40 MG TABLET PO (08:38)
[2020-07-31] MEDS: Levothyroxine Sodium 75 MCG TABLET PO (08:38)
--- NOTE | 2020-07-31 11:29 | P.PNNP_ITS ---
Subjective Subjective Date of Service: 07/31/20 Interval history: Seen and exmained. Cont excellent diuresis Physical Exam Vital Signs: Vital Signs: Last Vital Signs Temp 98.0 F 07/31/20 07:43 Pulse 78 07/31/20 08:38 Resp 20 07/31/20 07:43 BP 124/90 H 07/31/20 08:38 Pulse Ox 97 07/31/20 07:43 Body Mass Index 41.8 Const: General: cooperative Nutritional Appearance: well nourished Orientation/consciousness: patient oriented x3 Limitations: no limitations HENMT: Head: Yes normal to inspection, Yes normocephalic and Yes atraumatic Ears: hearing grossly normal bilaterally General nose exam: Normal external nose present Face and sinus: Yes normal facial exam Eyes: General: appearance normal, both eyes and all related structures Sclerae: sclerae normal EOM: EOMs intact bilaterally Neck: Neck: Yes normal visual inspection Chest: Chest palpation & inspection: normal inspection of the chest Resp: Effort & Inspection: normal respiratory effort, no respiratory distress and no stridor Auscultation: clear to auscultation bilaterally, no rhonchi and no wheezes Cardio: Rate: regular rate Rhythm: regular rhythm Heart sounds: S1 norm al heart sound present, S2 normal heart sound present and Murmur heart sound present systolic GI: Inspection: Yes normal to inspection and Yes distended Palpation (GI): Soft to palpation, Firmness to palpation present (GI), nontender, no guarding and not rigid Skin: General skin exam: no rashes or lesions noted Rashes: no rashes Wounds: no wounds Neuro: General: patient oriented x3 Cranial nerves: Yes CN's II-XII intact bilaterally and Yes Bilaterally intact EOM present Gait exam (Neuro): Normal gait present Extrem: Other: Bilateral upper and lower extremity pitting edema Objective Data Labs CBC & Chem 7: 07/27/20 06:30 07/31/20 05:40 Labs: Laboratory Results - last 24 hr 07/30/20 07/30/20 07/30/20 11:47 15:41 19:26 Sodium Potassium Chloride Carbon Dioxide Anion Gap BUN Creatinine Estim Creat Clear Calc Estimated GFR POC Glucose 107 110 111 Random Glucose Calcium 07/31/20 07/31/20 05:40 07:42 Sodium 139 Potassium 3.4 Chloride 105 Carbon Dioxide 25 Anion Gap 12 BUN 17 H Creatinine 1.46 H Estim Creat Clear Calc 72.0 Estimated GFR 49 POC Glucose 95 Random Glucose 89 Calcium 7.6 L Assessment & Plan Assessment and plan (1) Fluid overload: Status: Acute (2) Nephrotic syndrome: Status: Acute (3) CKD (chronic kidney disease) stage 3, GFR 30-59 ml/min: 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 1. NSYndrome; MGN and given severity he is a candidate for immunosuppression given his high risk factors ( 10 gm uprot, low albumin) for prog of MGN 2. TBFOL: d/t NSYn; diuresing was on iv diuretic and now transitioned to PO 3.DM 4. HLD REC: cont PO torsemide 100 qd and aldactone 25 qd and track WT and swelling, will arrange for Rituxin (steroid sparring)IS regiment...will need to be given as outpt , cont high dose SHOSHANA-I as renal func and K tolerate, statin therapy, low salt if d/c today I will arrange f/u with me next week..pls arrange for f/u labs next week and ques home service to track his WTs/swelling will need supportive services on d/c to make sure he takes his meds, monitor his weights and gets his labs done Time Spent With Patient Time: Total time spent is greater than 50% in coordination of care (as documented) at patient's floor/unit and/or counseling patient:
[2020-07-31 11:40] VITALS: BP 134/75; PULSE 77; RESP 20; TEMP 36.2; O2SAT 99
--- NOTE | 2020-07-31 12:18 | PM.DS ---
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 Patient was admitted to the hospital in the summer for fluid overload secondary to nephrotic syndrome. He was discharged July 01 with an increased dose of Lasix. He underwent a kidney biopsy on July 02 however he does not yet know the results. He reports taking his Lasix daily but has continued to notice an increase in swelling in his upper and lower extremities. He reports dyspnea on exertion. In the emergency department chest x-ray showed small bilateral pleural effusions without evidence of CHF for pulmonary edema. he was not hypoxic. he received a dose of IV Lasix. The remainder of his lab work was unremarkable with the exception of random glucose of 53. Patient was asymptomatic, given snacks and repeat POC is pending at this time. Hospital course 64-year-old male with history of diabetes, hypertension, hypothyroidism, nephrotic syndrome here with increasing lower extremity edema and generalized fluid overload Nephrotic syndrome with significant Fluid overload renal biopsy showed membranous glomerulonephritis Patient responded well to IV Lasix therapy patient is 11 L negative since admission, creatinine slightly elevated at 1.47 patient transitioned to oral diuretics torsemide 100 mg and Aldactone 25 mg Since patient is clinically doing better with significant improvement in edema able to ambulate therefore being discharged home prior to discharge patient seen by quality control chemist teaching given for low-salt and diabetic diet, ordered BMP for next week patient was followed closely by Dr. Ribeiro patient has been recommended to be seen by him in 1 week time and he will arrange for Rituxin strongly recommend to avoid all NSAIDs Mild hypokalemia due to diuretics resolved Chronic kidney disease stage 3 GFR 30-59 Hypertension BP improved continue lisinopril to 40 mg daily Diabetes Blood sugars is stable 112 this am, all oral hypoglycemic medications has been discontinued Hypothyroidism Continue Synthroid HLD Continue statin Time Spent with Patient Time attestation: Total time spent providing and/or coordinating discharge services: Discharge coordination time: Greater than 30 minutes Physical Exam Vital Signs: Vital Signs: Last Vital Signs Temp 97.1 F 07/31/20 11:40 Pulse 77 07/31/20 11:40 Resp 20 07/31/20 11:40 BP 134/75 07/31/20 11:40 Pulse Ox 99 07/31/20 11:40 Body Mass Index 41.8 General sitting comfortably in no acute distress. Neck supple no JVD. CVS regular rate rhythm, Respiratory lungs clear to auscultation, no respiratory distress Gastrointestinal abdomen soft, obese, nontender, bowel sounds audible, no guarding , no rigidity. Extremities significant improvement in generalized edema , no open wounds lower extremity. Neuro nonfocal speech clear. Skin dry scaly both lower legs, no skin breakdown DS: Data Data Completed and Pending Completed studies during hospitalization [Text1]: Procedures Extraction of Right Inguinal Lymphatic, Percutaneous Approach, Diagnostic (04/23/20) Labs on day of discharge: Laboratory Tests 07/26/20 07/26/20 07/26/20 17:59 17:59 17:59 WBC 6.2 RBC 4.19 L Hgb 13.2 L Hct 38.7 L MCV 92.4 MCH 31.5 MCHC 34.1 RDW 13.4 Plt Count 388 MPV 9.6 Immature Gran % (Auto) 1.1 H Neut % (Auto) 65.7 Lymph % (Auto) 21.7 [place] % (Auto) 6.3 Eos % (Auto) 4.2 H Baso % (Auto) 1.0 Lymph # (Auto) 1.3 [place] # (Auto) 0.4 Eos # (Auto) 0.3 Baso # (Auto) 0.1 Abs Immat Gran (auto) 0.07 H Absolute Neuts (auto) 4.1 Absolute Nucleated RBC 0.000 Nucleated RBC % (auto) 0.0 Hold Blue Top SEE NOTE Sodium 137 Potassium 4.2 Chloride 108 Carbon Dioxide 19 L Anion Gap 14 BUN 22 H Creatinine 1.38 Estim Creat Clear Calc 76.1 Estimated GFR 52 POC Glucose Random Glucose 53 L* Calcium 7.7 L Total Bilirubin 0.2 Direct Bilirubin < 0.2 AST 34 D ALT 18 Alkaline Phosphatase 70 B-Natriuretic Peptide Total Protein 4.8 L Albumin 1.8 L Urine Color Urine Appearance Urine pH Ur Specific [place] Urine Protein Urine Glucose (UA) Urine Ketones Urine Blood Urine Nitrite Ur Leukocyte Esterase Urine RBC Urine WBC Ur Squamous Epith Cells Amorphous Sediment Urine Bacteria Hyaline Casts COVID-19 (CYRUS) [employer] 07/26/20 07/26/20 07/26/20 17:59 17:59 20:09 WBC RBC Hgb Hct MCV MCH MCHC RDW Plt Count MPV Immature Gran % (Auto) Neut % (Auto) Lymph % (Auto) [place] % (Auto) Eos % (Auto) Baso % (Auto) Lymph # (Auto) [place] # (Auto) Eos # (Auto) Baso # (Auto) Abs Immat Gran (auto) Absolute Neuts (auto) Absolute Nucleated RBC Nucleated RBC % (auto) Hold Blue Top Sodium Potassium Chloride Carbon Dioxide Anion Gap BUN Creatinine Estim Creat Clear Calc Estimated GFR POC Glucose 66 Random Glucose Calcium Total Bilirubin Direct Bilirubin AST ALT Alkaline Phosphatase B-Natriuretic Peptide 46 Total Protein Albumin Urine Color Urine Appearance Urine pH Ur Specific [place] Urine Protein Urine Glucose (UA) Urine Ketones Urine Blood Urine Nitrite Ur Leukocyte Esterase Urine RBC Urine WBC Ur Squamous Epith Cells Amorphous Sediment Urine Bacteria Hyaline Casts COVID-19 ([facility]) Negative COVID-[employer] See Note 07/26/20 07/26/20 07/27/20 20:13 21:18 06:30 WBC 5.2 RBC 3.69 L Hgb 11.7 L Hct 34.1 L MCV 92.4 MCH 31.7 MCHC 34.3 RDW 13.6 Plt Count 319 MPV 9.2 L Immature Gran % (Auto) 0.4 Neut % (Auto) 47.5 Lymph % (Auto) 33.4 [place] % (Auto) 9.5 Eos % (Auto) 8.2 H Baso % (Auto) 1.0 Lymph # (Auto) 1.8 [place] # (Auto) 0.5 Eos # (Auto) 0.4 Baso # (Auto) 0.1 Abs Immat Gran (auto) 0.02 Absolute Neuts (auto) 2.5 Absolute Nucleated RBC 0.000 Nucleated RBC % (auto) 0.0 Hold Blue Top Sodium Potassium Chloride Carbon Dioxide Anion Gap BUN Creatinine Estim Creat Clear Calc Estimated GFR POC Glucose 109 Random Glucose Calcium Total Bilirubin Direct Bilirubin AST ALT Alkaline Phosphatase B-Natriuretic Peptide Total Protein Albumin Urine Color YELLOW Urine Appearance HAZY Urine pH 6.0 Ur Specific [place] 1.025 Urine Protein 3+ H Urine Glucose (UA) 250 H Urine Ketones 15 Urine Blood 3+ H Urine Nitrite NEG Ur Leukocyte Esterase NEG Urine RBC 10-14 H Urine WBC 1-4 Ur Squamous Epith Cells TRACE Amorphous Sediment 1+ Urine Bacteria NONE Hyaline Casts 10-14 COVID-19 (CYRUS) COVID-19 [employer] 07/27/20 07/27/20 07/27/20 06:30 07:34 09:31 WBC RBC Hgb Hct MCV MCH MCHC RDW Plt Count MPV Immature Gran % (Auto) Neut % (Auto) Lymph % (Auto) [place] % (Auto) Eos % (Auto) Baso % (Auto) Lymph # (Auto) [place] # (Auto) Eos # (Auto) Baso # (Auto) Abs Immat Gran (auto) Absolute Neuts (auto) Absolute Nucleated RBC Nucleated RBC % (auto) Hold Blue Top Sodium Cancelled 137 Potassium Cancelled 3.9 Chloride Cancelled 109 H Carbon Dioxide Cancelled 19 L Anion Gap Cancelled 13 BUN Cancelled 23 H Creatinine Cancelled 1.38 Estim Creat Clear Calc Cancelled 76.1 Estimated GFR Cancelled 52 POC Glucose 88 Random Glucose Cancelled 86 D Calcium Cancelled 7.5 L Total Bilirubin Direct Bilirubin AST ALT Alkaline Phosphatase B-Natriuretic Peptide Total Protein Albumin Urine Color Urine Appearance Urine pH Ur Specific [place] Urine Protein Urine Glucose (UA) Urine Ketones Urine Blood Urine Nitrite Ur Leukocyte Esterase Urine RBC Urine WBC Ur Squamous Epith Cells Amorphous Sediment Urine Bacteria Hyaline Casts COVID-19 ([facility]) COVID-19 [employer] 07/27/20 07/27/20 07/28/20 12:01 20:23 05:52 WBC RBC Hgb Hct MCV MCH MCHC RDW Plt Count MPV Immature Gran % (Auto) Neut % (Auto) Lymph % (Auto) [place] % (Auto) Eos % (Auto) Baso % (Auto) Lymph # (Auto) [place] # (Auto) Eos # (Auto) Baso # (Auto) Abs Immat Gran (auto) Absolute Neuts (auto) Absolute Nucleated RBC Nucleated RBC % (auto) Hold Blue Top Sodium 138 Potassium 3.9 Chloride 109 H Carbon Dioxide 19 L Anion Gap 14 BUN 21 H Creatinine 1.31 Estim Creat Clear Calc 80.2 Estimated GFR 55 POC Glucose 83 101 Random Glucose 98 Calcium 7.9 L Total Bilirubin Direct Bilirubin AST ALT Alkaline Phosphatase B-Natriuretic Peptide Total Protein Albumin Urine Color Urine Appearance Urine pH Ur Specific [place] Urine Protein Urine Glucose (UA) Urine Ketones Urine Blood Urine Nitrite Ur Leukocyte Esterase Urine RBC Urine WBC Ur Squamous Epith Cells Amorphous Sediment Urine Bacteria Hyaline Casts COVID-19 ([facility]) [employer] 07/28/20 07/28/20 07/28/20 07:29 11:20 16:17 WBC RBC Hgb Hct MCV MCH MCHC RDW Plt Count MPV Immature Gran % (Auto) Neut % (Auto) Lymph % (Auto) [place] % (Auto) Eos % (Auto) Baso % (Auto) Lymph # (Auto) [place] # (Auto) Eos # (Auto) Baso # (Auto) Abs Immat Gran (auto) Absolute Neuts (auto) Absolute Nucleated RBC Nucleated RBC % (auto) Hold Blue Top Sodium Potassium Chloride Carbon Dioxide Anion Gap BUN Creatinine Estim Creat Clear Calc Estimated GFR POC Glucose 82 119 H 114 Random Glucose Calcium Total Bilirubin Direct Bilirubin AST ALT Alkaline Phosphatase B-Natriuretic Peptide Total Protein Albumin Urine Color Urine Appearance Urine pH Ur Specific [place] Urine Protein Urine Glucose (UA) Urine Ketones Urine Blood Urine Nitrite Ur Leukocyte Esterase Urine RBC Urine WBC Ur Squamous Epith Cells Amorphous Sediment Urine Bacteria Hyaline Casts COVID-19 ([facility]US) COVID-[employer] 07/28/20 07/29/20 07/29/20 20:07 05:20 07:20 WBC RBC Hgb Hct MCV MCH MCHC RDW Plt Count MPV Immature Gran % (Auto) Neut % (Auto) Lymph % (Auto) [place] % (Auto) Eos % (Auto) Baso % (Auto) Lymph # (Auto) [place] # (Auto) Eos # (Auto) Baso # (Auto) Abs Immat Gran (auto) Absolute Neuts (auto) Absolute Nucleated RBC Nucleated RBC % (auto) Hold Blue Top Sodium 138 Potassium 3.9 Chloride 105 Carbon Dioxide 22 Anion Gap 15 BUN 20 H Creatinine 1.35 Estim Creat Clear Calc 77.8 Estimated GFR 53 POC Glucose 128 H 99 Random Glucose 93 Calcium 7.9 L Total Bilirubin Direct Bilirubin AST ALT Alkaline Phosphatase B-Natriuretic Peptide Total Protein Albumin Urine Color Urine Appearance Urine pH Ur Specific [place] Urine Protein Urine Glucose (UA) Urine Ketones Urine Blood Urine Nitrite Ur Leukocyte Esterase Urine RBC Urine WBC Ur Squamous Epith Cells Amorphous Sediment Urine Bacteria Hyaline Casts COVID-19 ([facility]) COVID-19 [employer] 07/29/20 07/29/20 07/29/20 11:25 16:36 21:14 WBC RBC Hgb Hct MCV MCH MCHC RDW Plt Count MPV Immature Gran % (Auto) Neut % (Auto) Lymph % (Auto) [place] % (Auto) Eos % (Auto) Baso % (Auto) Lymph # (Auto) [place] # (Auto) Eos # (Auto) Baso # (Auto) Abs Immat Gran (auto) Absolute Neuts (auto) Absolute Nucleated RBC Nucleated RBC % (auto) Hold Blue Top Sodium Potassium Chloride Carbon Dioxide Anion Gap BUN Creatinine Estim Creat Clear Calc Estimated GFR POC Glucose 112 92 102 Random Glucose Calcium Total Bilirubin Direct Bilirubin AST ALT Alkaline Phosphatase B-Natriuretic Peptide Total Protein Albumin Urine Color Urine Appearance Urine pH Ur Specific [place] Urine Protein Urine Glucose (UA) Urine Ketones Urine Blood Urine Nitrite Ur Leukocyte Esterase Urine RBC Urine WBC Ur Squamous Epith Cells Amorphous Sediment Urine Bacteria Hyaline Casts COVID-19 ([facility]) COVID-19 Clin Com 07/30/20 07/30/20 07/30/20 04:09 07:19 11:47 WBC RBC Hgb Hct MCV MCH MCHC RDW Plt Count MPV Immature Gran % (Auto) Neut % (Auto) Lymph % (Auto) [place] % (Auto) Eos % (Auto) Baso % (Auto) Lymph # (Auto) [place] # (Auto) Eos # (Auto) Baso # (Auto) Abs Immat Gran (auto) Absolute Neuts (auto) Absolute Nucleated RBC Nucleated RBC % (auto) Hold Blue Top Sodium 139 Potassium 3.1 L D Chloride 104 Carbon Dioxide 26 Anion Gap 12 BUN 19 H Creatinine 1.47 H Estim Creat Clear Calc 71.5 Estimated GFR 48 POC Glucose 94 107 Random Glucose 92 Calcium 7.8 L Total Bilirubin Direct Bilirubin AST ALT Alkaline Phosphatase B-Natriuretic Peptide Total Protein Albumin Urine Color Urine Appearance Urine pH Ur Specific [place] Urine Protein Urine Glucose (UA) Urine Ketones Urine Blood Urine Nitrite Ur Leukocyte Esterase Urine RBC Urine WBC Ur Squamous Epith Cells Amorphous Sediment Urine Bacteria Hyaline Casts COVID-19 ([facility]YRUS) COVID-19 [employer] 07/30/20 07/30/20 07/31/20 15:41 19:26 05:40 WBC RBC Hgb Hct MCV MCH MCHC RDW Plt Count MPV Immature Gran % (Auto) Neut % (Auto) Lymph % (Auto) [place] % (Auto) Eos % (Auto) Baso % (Auto) Lymph # (Auto) [place] # (Auto) Eos # (Auto) Baso # (Auto) Abs Immat Gran (auto) Absolute Neuts (auto) Absolute Nucleated RBC Nucleated RBC % (auto) Hold Blue Top Sodium 139 Potassium 3.4 Chloride 105 Carbon Dioxide 25 Anion Gap 12 BUN 17 H Creatinine 1.46 H Estim Creat Clear Calc 72.0 Estimated GFR 49 POC Glucose 110 111 Random Glucose 89 Calcium 7.6 L Total Bilirubin Direct Bilirubin AST ALT Alkaline Phosphatase B-Natriuretic Peptide Total Protein Albumin Urine Color Urine Appearance Urine pH Ur Specific [place] Urine Protein Urine Glucose (UA) Urine Ketones Urine Blood Urine Nitrite Ur Leukocyte Esterase Urine RBC Urine WBC Ur Squamous Epith Cells Amorphous Sediment Urine Bacteria Hyaline Casts COVID-19 (CYRUS) COVID-19 [employer] 07/31/20 07:42 WBC RBC Hgb Hct MCV MCH MCHC RDW Plt Count MPV Immature Gran % (Auto) Neut % (Auto) Lymph % (Auto) [place] % (Auto) Eos % (Auto) Baso % (Auto) Lymph # (Auto) [place] # (Auto) Eos # (Auto) Baso # (Auto) Abs Immat Gran (auto) Absolute Neuts (auto) Absolute Nucleated RBC Nucleated RBC % (auto) Hold Blue Top Sodium Potassium Chloride Carbon Dioxide Anion Gap BUN Creatinine Estim Creat Clear Calc Estimated GFR POC Glucose 95 Random Glucose Calcium Total Bilirubin Direct Bilirubin AST ALT Alkaline Phosphatase B-Natriuretic Peptide Total Protein Albumin Urine Color Urine Appearance Urine pH Ur Specific [place] Urine Protein Urine Glucose (UA) Urine Ketones Urine Blood Urine Nitrite Ur Leukocyte Esterase Urine RBC Urine WBC Ur Squamous Epith Cells Amorphous Sediment Urine Bacteria Hyaline Casts COVID-19 ([facility]) COVID-19 Clin Com Discharge Plan Discharge Patient Disposition: Home Health Service Referrals: [facility] [Outside] Segundo Tapia MD [Primary Care Provider] - 1 Week (Please call and schedule a follow up appointment with Dr. Tapia within 1 week.) Discharge Medications: New spironolactone 25 mg Tablet 25 mg PO DAILY Qty: 30 RF: 0 lisinopril 40 mg Tablet 40 mg PO DAILY Qty: 30 RF: 0 torsemide 100 mg tablet 100 mg PO DAILY Qty: 30 RF: 0 Continued simvastatin 40 mg Tablet 40 mg PO DAILY RF: 0 levothyroxine 75 mcg Tablet 75 mcg PO DAILY RF: 0 Discontinued Januvia 100 mg Tablet 100 mg PO DAILY RF: 0 lisinopril 2.5 mg Tablet 2.5 mg PO DAILY RF: 0 glipizide 5 mg Tablet Extended Release 24hr 10 mg PO DAILY RF: 0 metformin 500 mg Tablet Extended Release 24hr 1,000 mg PO BIDWM RF: 0 furosemide 40 mg tablet 40 mg PO BIDWM RF: 0 metolazone 2.5 mg Tablet 2.5 mg PO DAILY RF: 0 amlodipine 5 mg tablet 5 mg PO DAILY RF: 0 Discharge Orders: Discharge Order (Routine); Ordered 07/31/20 Ordered By: Gaye Neves Diet: low salt diet Activity on Discharge: As tolerated Other Ambulatory Orders: Basic Metabolic Panel (Routine) Timeframe: [id number] Facility: [facility] - Location: Laboratory Ordered By: Gaye Neves Visit Report Forms: Patient Portal Discharge page Care Plan Goals: Diabetic, low-salt diet, monitor blood sugars, blood sugar medicines held since blood sugars stable, will get labs done in 1 week Health Concerns: Generalized edema Plan of Treatment: Outpatient follow-up with primary care physician and Dr. Ribeiro from Nephrology in 1 week
--- NOTE | 2020-07-31 13:06 | MHC.CLN ---
RE: CONSULT REVIEWED FOODS HIGH IN NA I.E. CANNED SOUP, DELI MEATS, SAUSAGE AND BURDICK ADVISED <300MG NA PER SERVING WITH LABEL READING REVIEWED LOW PROTEIN DIET AND HIGH PROTEIN FOODS TO AVOID. 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
== END 2020-07-31 13:45 | disposition home health service (06) | DRG 699 ==
LOC: HO.ED 19:09 → HO.IMC 07-27 16:56 → HO.S3 07-28 13:24 → HO.IMC 07-28 13:43
PROVIDERS: Internal Medicine; Internal Medicine Nephrology; Physician Assistant; Physician Assistant Medical; Admitting Provider Student in an Organized Health Care Education/Training Program; Emergency Provider Emergency Medicine; PCP Internal Medicine; Visit Provider Hospitalist
DX: N04.2 Nephrotic syndrome with diffuse membranous glomerulonephritis (principal); I13.0 Hypertensive heart and chronic kidney disease with heart failure and stage 1 through stage 4 chronic kidney disease, or unspecified chronic kidney disease; Z68.41 Body mass index [BMI] 40.0-44.9, adult; E87.70 Fluid overload, unspecified; E78.5 Hyperlipidemia, unspecified; E03.9 Hypothyroidism, unspecified; Z20.828 Contact with and (suspected) exposure to other viral communicable diseases; E11.22 Type 2 diabetes mellitus with diabetic chronic kidney disease; E87.6 Hypokalemia; E11.649 Type 2 diabetes mellitus with hypoglycemia without coma; N18.30 Chronic kidney disease, stage 3 unspecified; E66.9 Obesity, unspecified; I50.9 Heart failure, unspecified; E11.21 Type 2 diabetes mellitus with diabetic nephropathy; Z87.891 Personal history of nicotine dependence; Z88.0 Allergy status to penicillin; Z79.84 Long term (current) use of oral hypoglycemic drugs; Z79.890 Hormone replacement therapy; Z79.899 Other long term (current) drug therapy
CPT/HCPCS: 36415; 71046; 80048; 80076; 81001; 82947; 83880; 85025; 87635; 96374; 99284; 99285; J1650; J1940

== ENCOUNTER 2020-08-06 11:11 | Outpatient (REF) | payer MEDICARE, MEDICAID, SELFPAY ==
[2020-08-06 14:18] LABS: MANUAL DIFF FLAG NO
[2020-08-06 14:27] LABS: Basophils Absolute Auto 0.1 X10*3/uL (0.0-0.2); Basophils Percent Auto 1.3 % (0-2); Eosinophils Absolute Auto 0.3 X10*3/uL (0.0-0.4); Eosinophils Percent Auto 5.6 % (0-4); Hematocrit 39.6 % (42-52); Hemoglobin 13.2 g/dl (14.0-18.0); Imm Gran Abs Auto 0.03 X10*3/uL (0.00-0.03); Imm Gran Pct Auto 0.5 % (0.0-0.4); Lymphocytes Absolute Auto 1.6 X10*3/uL (1.2-4.9); Mean Corpuscular HGB Conc 33.3 g/dl (31.0-36.0); Mean Corpuscular Hemoglobin 31.4 pg (27.0-33.0); Mean Corpuscular Volume 94.3 fL (80-98); Mean Platelet Volume 9.9 fL (9.4-12.4); Monocytes Absolute Auto 0.4 X10*3/uL (0.1-1.2); Monocytes Percent Auto 7.2 % (2-11); Neutrophils Absolute Auto 3.6 X10*3/uL (2.0-8.3); Neutrophils Percent Auto 59.4 % (45-73); Platelet Count 359 X10*3/uL (160-400); Red Cell Distribution Width 13.3 % (11.0-16.0); White Blood Count 6.1 X10*3/uL (4.8-10.8)
[2020-08-06 14:36] LABS: Estimated Average Glucose 114 mg/dL; Hemoglobin A1c % 5.6 %
[2020-08-06 15:05] LABS: Alanine Aminotransferase 16 U/L (0-40); Alkaline Phosphatase 63 U/L (39-117); Anion Gap 13 (12-20); Aspartate Amino Transferase 23 U/L (5-37); Bilirubin Total < 0.2 mg/dL (0.0-1.0); Blood Urea Nitrogen 34 mg/dL (9-16); Calcium 8.3 mg/dL (8.4-10.2); Carbon Dioxide 24 mmol/L (22-29); Chloride 104 mmol/L (96-108); Estimated Glomerular Filt Rate 40; Glucose Random 112 mg/dL (60-115); Potassium 4.6 mmol/l (3.3-5.1); Sodium 136 mmol/L (135-145); Total Protein 4.8 g/dL (6.5-8.0)
[2020-08-06 15:14] LABS: Free T4 (Free Thyroxine) 0.62 ng/dL (0.71-1.85)
== END 2020-08-06 11:12 | disposition home or self-care (01) ==
LOC: HO.10HDL 11:11
PROVIDERS: Visit Provider Internal Medicine
DX: E11.9 Type 2 diabetes mellitus without complications (principal); D64.9 Anemia, unspecified; I50.9 Heart failure, unspecified; I10 Essential (primary) hypertension; Z79.899 Other long term (current) drug therapy
CPT/HCPCS: 36415; 80053; 83036; 84439; 84443; 85025

== ENCOUNTER 2020-10-01 11:53 | Outpatient (REF) | payer MEDICARE, MEDICAID, SELFPAY ==
[2020-10-01 13:14] LABS: MANUAL DIFF FLAG NO
[2020-10-01 13:33] LABS: Estimated Average Glucose 111 mg/dL; Hemoglobin A1c % 5.5 %
[2020-10-01 13:37] LABS: Basophils Absolute Auto 0.1 X10*3/uL (0.0-0.2); Basophils Percent Auto 1.1 % (0-2); Eosinophils Absolute Auto 0.3 X10*3/uL (0.0-0.4); Eosinophils Percent Auto 3.8 % (0-4); Hemoglobin 14.4 g/dl (14.0-18.0); Imm Gran Abs Auto 0.07 X10*3/uL (0.00-0.03); Imm Gran Pct Auto 0.9 % (0.0-0.4); Lymphocytes Absolute Auto 1.7 X10*3/uL (1.2-4.9); Lymphocytes Percent Auto 21.7 % (20-40); Mean Corpuscular HGB Conc 35.1 g/dl (31.0-36.0); Mean Corpuscular Hemoglobin 32.2 pg (27.0-33.0); Mean Corpuscular Volume 91.7 fL (80-98); Mean Platelet Volume 9.4 fL (9.4-12.4); Monocytes Absolute Auto 0.6 X10*3/uL (0.1-1.2); Neutrophils Absolute Auto 5.2 X10*3/uL (2.0-8.3); Neutrophils Percent Auto 65.5 % (45-73); Platelet Count 380 X10*3/uL (160-400); Red Blood Count 4.47 X10*6/uL (4.60-5.80); Red Cell Distribution Width 13.1 % (11.0-16.0)
[2020-10-01 13:54] LABS: Alanine Aminotransferase 17 U/L (0-40); Albumin Level 2.3 g/dL (3.5-5.0); Alkaline Phosphatase 56 U/L (39-117); Anion Gap 13 (12-20); Aspartate Amino Transferase 24 U/L (5-37); Bilirubin Total 0.4 mg/dL (0.0-1.0); Blood Urea Nitrogen 32 mg/dL (9-16); Calcium 8.1 mg/dL (8.4-10.2); Carbon Dioxide 22 mmol/L (22-29); Chloride 106 mmol/L (96-108); Estimated Glomerular Filt Rate 45; Glucose Fasting 97 mg/dL (60-99); Sodium 137 mmol/L (135-145); Total Protein 5.2 g/dL (6.5-8.0)
[2020-10-01 14:02] LABS: Free T4 (Free Thyroxine) 0.75 ng/dL (0.71-1.85); Thyroid Stimulating Hormone 2.61 uIU/mL (0.32-4.0)
== END 2020-10-01 11:54 | disposition home or self-care (01) ==
LOC: HO.10HDL 11:53
PROVIDERS: Visit Provider Internal Medicine
DX: E11.22 Type 2 diabetes mellitus with diabetic chronic kidney disease (principal); I12.9 Hypertensive chronic kidney disease with stage 1 through stage 4 chronic kidney disease, or unspecified chronic kidney disease; E03.9 Hypothyroidism, unspecified; N18.9 Chronic kidney disease, unspecified
CPT/HCPCS: 36415; 80053; 83036; 84439; 84443; 85025

== ENCOUNTER 2020-12-03 10:31 | Outpatient (REF) | payer MEDICARE, MEDICAID, SELFPAY ==
[2020-12-03 13:15] LABS: MANUAL DIFF FLAG NO
[2020-12-03 13:19] LABS: Basophils Absolute Auto 0.1 X10*3/uL (0.0-0.2); Eosinophils Absolute Auto 0.3 X10*3/uL (0.0-0.4); Eosinophils Percent Auto 4.5 % (0-4); Hematocrit 36.8 % (42-52); Hemoglobin 12.7 g/dl (14.0-18.0); Imm Gran Abs Auto 0.05 X10*3/uL (0.00-0.03); Imm Gran Pct Auto 0.8 % (0.0-0.4); Lymphocytes Absolute Auto 1.4 X10*3/uL (1.2-4.9); Lymphocytes Percent Auto 23.3 % (20-40); Mean Corpuscular HGB Conc 34.5 g/dl (31.0-36.0); Mean Corpuscular Hemoglobin 31.8 pg (27.0-33.0); Monocytes Absolute Auto 0.5 X10*3/uL (0.1-1.2); Monocytes Percent Auto 8.2 % (2-11); Neutrophils Absolute Auto 3.7 X10*3/uL (2.0-8.3); Neutrophils Percent Auto 62.2 % (45-73); Platelet Count 333 X10*3/uL (160-400); Red Cell Distribution Width 12.3 % (11.0-16.0)
[2020-12-03 13:38] LABS: Estimated Average Glucose 140 mg/dL; Hemoglobin A1c % 6.5 %
[2020-12-03 13:45] LABS: Appearance Urine CLOUDY; Color Urine YELLOW; Glucose Urine UA >=1000 MG/DL (NEG); Leukocyte Esterase Urine NEG (NEG); Nitrite Urine NEG (NEG); Urine Blood 2+ (NEG); Urine Ketones NEG (NEG); Urine Protein 3+ MG/DL (NEG-TRACE)
[2020-12-03 13:58] LABS: Mucus Urine 3+ /LPF; Squamous Epithelial Cell Urine 1+ /LPF; WBC Urine 0 /HPF (0-4)
[2020-12-03 14:02] LABS: Alanine Aminotransferase 15 U/L (0-40); Albumin Level 2.3 g/dL (3.5-5.0); Alkaline Phosphatase 61 U/L (39-117); Anion Gap 14 (12-20); Aspartate Amino Transferase 17 U/L (5-37); Bilirubin Total 0.2 mg/dL (0.0-1.0); Blood Urea Nitrogen 47 mg/dL (9-16); Calcium 8.7 mg/dL (8.4-10.2); Carbon Dioxide 23 mmol/L (22-29); Chloride 105 mmol/L (96-108); Cholesterol 319 mg/dL; Estimated Glomerular Filt Rate 40; Glucose Random 275 mg/dL (60-115); Potassium 3.6 mmol/L (3.3-5.1); Sodium 138 mmol/L (135-145); Total Protein 5.2 g/dL (6.5-8.0)
[2020-12-03 14:26] LABS: Free T4 (Free Thyroxine) 0.74 ng/dL (0.71-1.85); Thyroid Stimulating Hormone 1.25 uIU/mL (0.32-4.0); Vitamin D 25-OH Total 7.1 ng/mL (>30)
[2020-12-03 15:10] LABS: Creatinine Urine 63.73 mg/dL
[2020-12-04 12:57] LABS: Calcium (PTHI) 8.7 mg/dL (8.6-10.3); PTHI 12 pg/mL (14-64)
== END 2020-12-03 10:32 | disposition home or self-care (01) ==
LOC: HO.10HDL 10:31
PROVIDERS: Visit Provider Internal Medicine
DX: E11.22 Type 2 diabetes mellitus with diabetic chronic kidney disease (principal); I12.9 Hypertensive chronic kidney disease with stage 1 through stage 4 chronic kidney disease, or unspecified chronic kidney disease; N18.9 Chronic kidney disease, unspecified; E03.9 Hypothyroidism, unspecified; D64.9 Anemia, unspecified
CPT/HCPCS: 36415; 80053; 81001; 82043; 82306; 82465; 83036; 83970; 84100; 84439; 84443; 85025

== ENCOUNTER 2021-01-28 11:15 | Outpatient (REF) | payer MEDICARE, MEDICAID, SELFPAY ==
[2021-01-28 12:03] LABS: MANUAL DIFF FLAG NO
[2021-01-28 12:11] LABS: Basophils Absolute Auto 0.1 X10*3/uL (0.0-0.2); Basophils Percent Auto 0.7 % (0-2); Eosinophils Absolute Auto 0.3 X10*3/uL (0.0-0.4); Hematocrit 35.3 % (42-52); Hemoglobin 12.5 g/dl (14.0-18.0); Imm Gran Pct Auto 1.5 % (0.0-0.4); Lymphocytes Absolute Auto 1.5 X10*3/uL (1.2-4.9); Lymphocytes Percent Auto 21.4 % (20-40); Mean Corpuscular HGB Conc 35.4 g/dl (31.0-36.0); Mean Corpuscular Hemoglobin 32.4 pg (27.0-33.0); Mean Corpuscular Volume 91.5 fL (80-98); Mean Platelet Volume 9.7 fL (9.4-12.4); Monocytes Absolute Auto 0.6 X10*3/uL (0.1-1.2); Monocytes Percent Auto 9.4 % (2-11); Neutrophils Absolute Auto 4.2 X10*3/uL (2.0-8.3); Platelet Count 302 X10*3/uL (160-400); Red Blood Count 3.86 X10*6/uL (4.60-5.80); Red Cell Distribution Width 12.5 % (11.0-16.0); White Blood Count 6.8 X10*3/uL (4.8-10.8)
[2021-01-28 12:25] LABS: Anion Gap 13 (12-20); Blood Urea Nitrogen 47 mg/dL (9-16); Calcium 9.9 mg/dL (8.4-10.2); Carbon Dioxide 22 mmol/L (22-29); Chloride 104 mmol/L (96-108); Estimated Glomerular Filt Rate 40; Glucose Random 164 mg/dL (60-115); Potassium 4.1 mmol/L (3.3-5.1); Sodium 135 mmol/L (135-145)
[2021-01-28 12:47] LABS: Estimated Average Glucose 169 mg/dL; Hemoglobin A1c % 7.5 %
[2021-01-28 13:42] LABS: Glucose Urine UA 500 MG/DL (NEG); Leukocyte Esterase Urine NEG (NEG); Nitrite Urine NEG (NEG); PH 6.5 (5.0-8.0); Urine Blood 1+ (NEG); Urine Ketones NEG (NEG); Urine Protein 3+ MG/DL (NEG-TRACE)
[2021-01-28 13:50] LABS: Appearance Urine CLEAR; Color Urine YELLOW
[2021-01-28 13:54] LABS: Creatinine Urine 48.04 mg/dL
[2021-01-28 14:16] LABS: RBC Urine 0-2 /HPF (0); Squamous Epithelial Cell Urine TRACE /LPF; WBC Urine 0-2 /HPF (0-4)
[2021-01-29 13:51] LABS: Calcium (PTHI) 9.5 mg/dL (8.6-10.3); PTHI 9 pg/mL (14-64)
== END 2021-01-28 11:16 | disposition home or self-care (01) ==
LOC: HO.LAB 11:15
PROVIDERS: PCP Internal Medicine; Visit Provider Internal Medicine
DX: R60.0 Localized edema (principal); D64.9 Anemia, unspecified; E11.9 Type 2 diabetes mellitus without complications; N18.9 Chronic kidney disease, unspecified
CPT/HCPCS: 36415; 80048; 81001; 82043; 83036; 83970; 85025

== ENCOUNTER 2021-04-01 12:03 | Outpatient (REF) | payer MEDICARE, MEDICAID, SELFPAY ==
[2021-04-01 13:57] LABS: MANUAL DIFF FLAG NO
[2021-04-01 14:10] LABS: Basophils Absolute Auto 0.1 X10*3/uL (0.0-0.2); Basophils Percent Auto 0.8 % (0-2); Eosinophils Absolute Auto 0.4 X10*3/uL (0.0-0.4); Eosinophils Percent Auto 5.9 % (0-4); Hematocrit 34.6 % (42-52); Hemoglobin 12.2 g/dl (14.0-18.0); Imm Gran Abs Auto 0.06 X10*3/uL (0.00-0.03); Imm Gran Pct Auto 0.8 % (0.0-0.4); Lymphocytes Absolute Auto 1.6 X10*3/uL (1.2-4.9); Lymphocytes Percent Auto 22.8 % (20-40); Mean Corpuscular HGB Conc 35.3 g/dl (31.0-36.0); Mean Corpuscular Hemoglobin 32.4 pg (27.0-33.0); Mean Corpuscular Volume 91.8 fL (80-98); Mean Platelet Volume 9.9 fL (9.4-12.4); Monocytes Absolute Auto 0.7 X10*3/uL (0.1-1.2); Monocytes Percent Auto 9.7 % (2-11); Neutrophils Absolute Auto 4.3 X10*3/uL (2.0-8.3); Platelet Count 319 X10*3/uL (160-400); Red Blood Count 3.77 X10*6/uL (4.60-5.80); Red Cell Distribution Width 12.3 % (11.0-16.0); White Blood Count 7.1 X10*3/uL (4.8-10.8)
[2021-04-01 14:14] LABS: Estimated Average Glucose 217 mg/dL; Hemoglobin A1c % 9.2 %
[2021-04-01 14:29] LABS: Alanine Aminotransferase 21 U/L (0-40); Alkaline Phosphatase 56 U/L (39-117); Anion Gap 13 (12-20); Aspartate Amino Transferase 22 U/L (5-37); Bilirubin Total 0.5 mg/dL (0.0-1.0); Blood Urea Nitrogen 22 mg/dL (9-16); Calcium 8.9 mg/dL (8.4-10.2); Carbon Dioxide 22 mmol/L (22-29); Chloride 107 mmol/L (96-108); Estimated Glomerular Filt Rate 37; Glucose Fasting 157 mg/dL (60-99); Potassium 3.8 mmol/L (3.3-5.1); Sodium 138 mmol/L (135-145); Total Protein 5.6 g/dL (6.5-8.0)
== END 2021-04-01 12:04 | disposition home or self-care (01) ==
LOC: HO.10HDL 12:03
PROVIDERS: Visit Provider Internal Medicine
DX: R60.9 Edema, unspecified (principal); E11.22 Type 2 diabetes mellitus with diabetic chronic kidney disease; N18.9 Chronic kidney disease, unspecified
CPT/HCPCS: 36415; 80053; 83036; 85025

== ENCOUNTER 2021-06-24 09:44 | Outpatient (REF) | payer MEDICARE, MEDICAID, SELFPAY ==
[2021-06-24 13:41] LABS: MANUAL DIFF FLAG NO
[2021-06-24 13:50] LABS: Basophils Absolute Auto 0.1 X10*3/uL (0.0-0.2); Basophils Percent Auto 0.9 % (0-2); Eosinophils Absolute Auto 0.3 X10*3/uL (0.0-0.4); Eosinophils Percent Auto 3.7 % (0-4); Hematocrit 36.6 % (42.0-52.0); Hemoglobin 12.9 g/dl (14.0-18.0); Imm Gran Abs Auto 0.05 X10*3/uL (0.00-0.03); Imm Gran Pct Auto 0.7 % (0.0-0.4); Lymphocytes Absolute Auto 1.3 X10*3/uL (1.2-4.9); Mean Corpuscular HGB Conc 35.2 g/dl (31.0-36.0); Mean Corpuscular Hemoglobin 32.6 pg (27.0-33.0); Mean Corpuscular Volume 92.4 fL (80.0-98.0); Mean Platelet Volume 10.5 fL (9.4-12.4); Monocytes Absolute Auto 0.6 X10*3/uL (0.1-1.2); Monocytes Percent Auto 8.3 % (2-11); Neutrophils Absolute Auto 5.3 x10*3/uL (2.0-8.3); Neutrophils Percent Auto 69.4 % (45-73); Platelet Count 349 X10*3/uL (160-400); Red Blood Count 3.96 X10*6/uL (4.60-5.80); Red Cell Distribution Width 13.3 % (11.0-16.0); White Blood Count 7.6 X10*3/uL (4.8-10.8)
[2021-06-24 13:59] LABS: Estimated Average Glucose 203 mg/dL; Hemoglobin A1c % 8.7 %
[2021-06-24 14:19] LABS: Alanine Aminotransferase 17 U/L (0-40); Albumin Level 2.5 g/dL (3.5-5.0); Alkaline Phosphatase 63 U/L (39-117); Anion Gap 11 (12-20); Aspartate Amino Transferase 22 U/L (5-37); Bilirubin Total 0.3 mg/dL (0.0-1.0); Blood Urea Nitrogen 27 mg/dL (9-16); Calcium 8.7 mg/dL (8.4-10.2); Carbon Dioxide 24 mmol/L (22-29); Chloride 106 mmol/L (96-108); Cholesterol 333 mg/dL; Estimated Glomerular Filt Rate 28; Glucose Fasting 116 mg/dL (60-99); Potassium 3.5 mmol/L (3.3-5.1); Sodium 137 mmol/L (135-145); Total Protein 5.2 g/dL (6.5-8.0)
[2021-06-24 14:33] LABS: Creatinine Urine 65.72 mg/dL
[2021-06-24 14:39] LABS: Prostate Specific Antigen Scr 0.55 ng/mL (<0.05-4.0)
== END 2021-06-24 09:45 | disposition home or self-care (01) ==
LOC: HO.10HDL 09:44
PROVIDERS: Visit Provider Internal Medicine
DX: Z12.5 Encounter for screening for malignant neoplasm of prostate (principal); R60.0 Localized edema; I12.9 Hypertensive chronic kidney disease with stage 1 through stage 4 chronic kidney disease, or unspecified chronic kidney disease; N18.9 Chronic kidney disease, unspecified; E11.22 Type 2 diabetes mellitus with diabetic chronic kidney disease; D64.9 Anemia, unspecified
CPT/HCPCS: 36415; 80053; 82043; 82465; 83036; 84153; 85025

== ENCOUNTER 2021-09-02 10:49 | Outpatient (REF) | payer MEDICARE, MEDICAID, SELFPAY ==
[2021-09-02 13:49] LABS: MANUAL DIFF FLAG NO
[2021-09-02 13:57] LABS: Basophils Absolute Auto 0.1 X10*3/uL (0.0-0.2); Basophils Percent Auto 0.8 % (0-2); Eosinophils Absolute Auto 0.3 X10*3/uL (0.0-0.4); Eosinophils Percent Auto 4.5 % (0-4); Hematocrit 37.5 % (42.0-52.0); Hemoglobin 12.7 g/dl (14.0-18.0); Imm Gran Abs Auto 0.07 X10*3/uL (0.00-0.03); Lymphocytes Absolute Auto 1.6 X10*3/uL (1.2-4.9); Lymphocytes Percent Auto 21.1 % (20-40); Mean Corpuscular HGB Conc 33.9 g/dl (31.0-36.0); Mean Corpuscular Hemoglobin 32.1 pg (27.0-33.0); Mean Corpuscular Volume 94.7 fL (80.0-98.0); Monocytes Absolute Auto 0.6 X10*3/uL (0.1-1.2); Monocytes Percent Auto 7.9 % (2-11); Neutrophils Absolute Auto 4.7 x10*3/uL (2.0-8.3); Neutrophils Percent Auto 64.7 % (45-73); Platelet Count 400 X10*3/uL (160-400); Red Blood Count 3.96 X10*6/uL (4.60-5.80); Red Cell Distribution Width 12.9 % (11.0-16.0); White Blood Count 7.3 X10*3/uL (4.8-10.8)
[2021-09-02 14:06] LABS: Alanine Aminotransferase 17 U/L (0-40); Albumin Level 2.1 g/dL (3.5-5.0); Alkaline Phosphatase 63 U/L (39-117); Anion Gap 11 (12-20); Aspartate Amino Transferase 25 U/L (5-37); Bilirubin Total 0.2 mg/dL (0.0-1.0); Blood Urea Nitrogen 32 mg/dL (9-16); Calcium 9.4 mg/dL (8.4-10.2); Carbon Dioxide 21 mmol/L (22-29); Chloride 109 mmol/L (96-108); Estimated Glomerular Filt Rate 21; Glucose Fasting 113 mg/dL (60-99); Potassium 3.8 mmol/L (3.3-5.1); Sodium 137 mmol/L (135-145); Total Protein 4.8 g/dL (6.5-8.0)
[2021-09-02 14:12] LABS: Estimated Average Glucose 151 mg/dL; Hemoglobin A1c % 6.9 %
[2021-09-02 14:29] LABS: Free T4 (Free Thyroxine) 0.56 ng/dL (0.71-1.85); Thyroid Stimulating Hormone 2.24 uIU/mL (0.32-4.0)
[2021-09-03 14:17] LABS: Calcium (PTHI) 9.3 mg/dL (8.6-10.3); PTHI 7 pg/mL (14-64)
== END 2021-09-02 10:50 | disposition home or self-care (01) ==
LOC: HO.10HDL 10:49
PROVIDERS: Visit Provider Internal Medicine
DX: I12.9 Hypertensive chronic kidney disease with stage 1 through stage 4 chronic kidney disease, or unspecified chronic kidney disease (principal); N18.9 Chronic kidney disease, unspecified; E11.22 Type 2 diabetes mellitus with diabetic chronic kidney disease; E03.9 Hypothyroidism, unspecified
CPT/HCPCS: 36415; 80053; 83036; 83970; 84439; 84443; 85025

== ENCOUNTER 2021-10-24 11:14 | Inpatient (IN) | payer MEDICARE, MEDICAID, SELFPAY ==
--- NOTE | ~2021-10-24 | XR_ITS ---
EXAMINATION: XR CHEST CLINICAL INFORMATION: Shortness of breath COMPARISON: 07/26/2020 TECHNIQUE: 2 views of the chest were obtained. FINDINGS: The lungs are well expanded. Small bilateral pleural effusions. No dense consolidation. No edema. No pneumothorax. The cardiomediastinal silhouette is normal in size with a calcified aorta. Degenerative changes throughout the spine. XR/XR chest 2V IMPRESSION: Small pleural effusions. No overt edema. No dense consolidation.
--- NOTE | ~2021-10-24 | US_ITS ---
EXAMINATION: US RETROPERITONEAL LIMITED (RENAL ONLY) CLINICAL INFORMATION: Rule out renal vein thrombus. COMPARISON: Previous CT of the abdomen and pelvis March 2020 TECHNIQUE: Grayscale and color imaging of the kidneys FINDINGS: RIGHT KIDNEY: 12.2 x 5.2 x 5.4 cm (SAG x AP x TRV). The kidney is normal in size, contour, and echogenicity. Renal cortical thickness is normal. No calculi or focal parenchymal lesions. No hydronephrosis. LEFT KIDNEY: 12.2 x 5 x 5 cm (SAG x AP x TRV). The kidney is normal in size, contour, and echogenicity. Renal cortical thickness is normal. No calculi or focal parenchymal lesions. No hydronephrosis. The renal veins are difficult to visualize by ultrasound appear patent bilaterally. US/US renal BI Impression: Normal renal ultrasound. The renal veins are difficult to visualize by ultrasound appear patent bilaterally.
--- NOTE | 2021-10-24 11:46 | ED.SOB ---
HPI - SOB/Dyspnea General Chief Complaint: Dyspnea Stated Complaint: fluid buildup arms/legs, diff breathing Time Seen by Provider: 10/24/21 11:46 Source: patient Mode of arrival: ambulatory Limitations: no limitations History of Present Illness HPI Narrative: 65-year-old male with a history of chronic kidney disease followed by Dr. Ribeiro, nephrotic syndrome on 100 mg of torsemide daily/metolazone 2.5mg/aldactone 25mg, hypothyroidism, diabetes, hyperlipidemia here with reports of several weeks of increasing swelling of the lower extremities extending to the arms/testicles, shortness of breath, abdominal distention in a 30 lb weight gain despite taking his medication. Patient has had several admissions for same. 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 Related Data Home Medications Medication Instructions Recorded Confirmed levothyroxine 75 mcg tablet 75 mcg PO DAILY 06/27/20 10/24/21 amlodipine 5 mg tablet 1 tab PO DAILY 10/24/21 10/24/21 atorvastatin 40 mg tablet 1 tab PO DAILY 10/24/21 10/24/21 glipizide 10 mg tablet, extended 1 tab PO BID 10/24/21 10/24/21 release 24 hr lisinopril 2.5 mg tablet 1 tab PO DAILY 10/24/21 10/24/21 metformin 500 mg tablet,extended 2 tab PO BID 10/24/21 10/24/21 release 24 hr metolazone 2.5 mg tablet 1 tab PO DAILY 10/24/21 10/24/21 sitagliptin 100 mg tablet (Januvia) 1 tab PO DAILY 10/24/21 10/24/21 Previous Rx's Medication Instructions Recorded spironolactone 25 mg tablet 25 mg PO DAILY #30 tab 07/31/20 torsemide 100 mg tablet 100 mg PO DAILY #30 tab 07/31/20 Allergies Allergy/AdvReac Type Severity Reaction Status Date / Time Penicillins Allergy Unknown UNKWN Verified 04/23/20 13:49 Review of Systems Review of Systems: Yes all other systems are reviewed and are negative Constitutional: Constitutional: Reports no additional constitutional complaints, Denies body ache(s), Denies chills, Denies fever(s), Denies headache(s), Denies weakness and Reports weight gain Eyes: Eyes: Reports no additional eye complaints and Denies change in vision ENT: Reports system reviewed and no additional complaints, except as documented, Denies dizziness, Denies headache(s), Denies nasal congestion, Denies nasal discharge and Denies neck pain Cardiovascular: Cardiovascular: Reports no additional cardiovascular complaints, Denies chest pain, Reports leg edema and Reports dyspnea Respiratory: Respiratory: Reports no additional respiratory complaints, Reports cough and Reports dyspnea Gastrointestinal: Gastrointestinal: Reports no additional gastrointestinal complaints, Denies abdominal pain, Denies diarrhea, Denies nausea and Denies vomiting Genitourinary: Genitourinary: Denies urinary incontinence Musculoskeletal: Musculoskeletal: Reports no additional musculoskeletal complaints, Denies back pain, Denies arthralgias, Denies joint swelling, Denies neck pain, Denies numbness and Denies tingling Integumentary/Breasts: Skin/Breast: Reports system reviewed and no additional complaints, except as docu and Denies rash Neurologic: Reports system reviewed and no additional complaints, except as documented, Denies Abnormal speech present, Denies dizziness, Denies headache(s), Denies numbness, Denies tingling and Denies weakness PMFSH Past Medical History Attestation statement: The following information was validated with the patient. Source: old records reviewed and nursing notes reviewed Medical History CHF (congestive heart failure), NYHA class I Congestive heart failure Diabetes 1.5, managed as type 2 Diverticulosis Hiatal hernia History of small bowel obstruction Hyperlipidemia Hypertension Hypothyroidism Nephrotic syndrome Family History Family History Father No problems noted. Social History Social History Household Members: None Housing: Apartment Do you presently have visiting nurse or other home services: Yes Alcohol intake: unknown Patient Tobacco Use Status: Never used Tobacco Second Hand Smoke Exposure: No Use of substances other than those prescribed or required for medical reasons: No Advance Directives: Yes Advance Directives on File: Yes Advance Directives Date on File: 05/01/20 service: No Current occupational status: unemployed and disabled Physical Exam Vital Signs: Vital Signs: Last Vital Signs Temp 98 F 10/24/21 11:48 Pulse 92 10/24/21 15:17 Resp 18 10/24/21 15:17 BP 133/68 10/24/21 15:17 Pulse Ox 98 10/24/21 15:17 BMI result Body Mass Index 40.4 Const: General: cooperative, healthy appearing, comfortable and no acute distress Orientation/consciousness: patient oriented x3 Limitations: no limitations HEENT: Head: Yes normal to inspection Ears: hearing grossly normal bilaterally General nose exam: Normal external nose present Face and sinus: Yes normal facial exam Mouth: Normal oral and palatal mucosa present Throat: Yes posterior oropharynx normal Eyes: General: appearance normal, both eyes and all related structures Pupils: Equal, round and reactive pupils present Neck: Neck: Yes normal visual inspection Chest: Chest palpation & inspection: normal inspection of the chest Resp: Other: mild tachypnea Auscultation: clear to auscultation bilaterally Cardio: Rate: regular rate Rhythm: regular rhythm Peripheral pulses: Peripheral pulses 2+ throughout GI: Other: +distended Inspection: Yes normal to inspection Palpation (GI): nontender Auscultation: normal bowel sounds : Other: swollen testicles-nontender Back/Spine/Pelvis: Thoracic/Lumbar Spine: thoracic and lumbar spine normal to inspection Skin: General skin exam: no rashes or lesions noted Neuro: General: patient oriented x3, no focal motor deficits and normal sensation to monofilament Cranial nerves: Yes Equal, round and reactive pupils present Cognition (Neuro): normal cognition Speech: No Abnormal speech present Gait exam (Neuro): Normal gait present Motor exam (neuro): 5/5 motor strength present throughout Extrem: Other: Massive edema extending from the feet up to the testicles Swelling of bilateral arms Course Course Course Narrative: [age] yo male with history of nephrotic syndrome, CKD, HLD, HTN, hypothyroidism on 100mg torsemide/metolazone/aldactone here with several weeks of increasing swelling LE/UE/testicles/abdomen, SOB, ?up 30lbs. Will check labs, EKG, CXR, COVID test. Exam is c/w with anasarca Reevaluation(s) Reevaluation #1: Labs show acute on chronic renal failure with BUN 33 and creatinine 3.65. Patient had labs in August of 2021 which showed a BUN of 32 and a creatinine of 3. Glucose was 45. Patient didn't eat today. Had OJ/crackers. Repeat BG better. Initial troponin 17.4. Low concern for ACS. Will trend. BNP is 46. Chest x-ray shows small bilateral effusions. EKG shows no ischemic changes. patient is on multiple diuretics. Exam is consistent with anasarca. Will discuss with Nephrology for recommendations for diuresis Time: 13:50 Consultations Consultation #1: [id number]-spoke to Nephrology Dr. Sanchez. She recommended Lasix 120 mg IV Q 8 hours. With the 1st dose of Lasix give 5 mg of metolazone and then give 5 mg every 24 hours. Increase Aldactone to 50 mg daily MDM - SOB/Dyspnea Medical Records Attestation: I reviewed the patient's medical records. Lab Data Attestation: I reviewed the patient's lab results. Result diagrams: 10/24/21 12:06 10/24/21 12:06 Labs: Lab Results 10/24/21 10/24/21 10/24/21 Range/Units 12:06 12:06 12:06 WBC 8.9 (4.8-10.8) X10*3/uL RBC 3.76 L (4.60-5.80) X10*6/uL Hgb 12.1 L (14.0-18.0) g/dl Hct 35.4 L (42.0-52.0) % MCV 94.1 (80.0-98.0) fL MCH 32.2 (27.0-33.0) pg MCHC 34.2 (31.0-36.0) g/dl RDW 13.9 (11.0-16.0) % Plt Count 390 (160-400) X10*3/uL MPV 9.3 L (9.4-12.4) fL Immature Gran % (Auto) 0.8 H (0.0-0.4) % Neut % (Auto) 74.6 H (45-73) % Lymph % (Auto) 14.1 L (20-40) % Roane % (Auto) 6.8 (2-11) % Eos % (Auto) 2.9 (0-4) % Baso % (Auto) 0.8 (0-2) % Lymph # (Auto) 1.3 (1.2-4.9) X10*3/uL Roane # (Auto) 0.6 (0.1-1.2) X10*3/uL Eos # (Auto) 0.3 (0.0-0.4) X10*3/uL Baso # (Auto) 0.1 (0.0-0.2) X10*3/uL Abs Immat Gran (auto) 0.07 H (0.00-0.03) X10*3/uL Absolute Neuts (auto) 6.6 (2.0-8.3) x10*3/uL Absolute Nucleated RBC 0.000 (0.0-0.012) X10*3/uL Nucleated RBC % (auto) 0.0 (0.0-0.2) /100WBC Sodium 139 (135-145) mmol/L Potassium 3.4 (3.3-5.1) mmol/L Chloride 110 H (96-108) mmol/L Carbon Dioxide 18 L (22-29) mmol/L Anion Gap 14 (12-20) BUN 33 H (9-16) mg/dL Creatinine 3.65 H (0.5-1.4) mg/dL Estim Creat Clear Calc 28.6 Estimated GFR 17 POC Glucose (60-115) mg/dL Random Glucose 45 L* (60-115) mg/dL Calcium 9.2 (8.4-10.2) mg/dL Magnesium 1.8 (1.6-2.6) mg/dL Total Bilirubin 0.2 (0.0-1.0) mg/dL Direct Bilirubin < 0.2 (0.0-0.5) mg/dL AST 24 (5-37) U/L ALT 14 (0-40) U/L Alkaline Phosphatase 65 (39-117) U/L Troponin I High Sens 17.4 (<3.5-35.0) ng/L B-Natriuretic Peptide (<100) pg/mL Total Protein 4.5 L (6.5-8.0) g/dL Albumin 1.9 L (3.5-5.0) g/dL COVID-19 ([facility]) (Negative) COVID-19 Clin Com 10/24/21 10/24/21 10/24/21 Range/Units 12:06 12:06 13:04 WBC (4.8-10.8) X10*3/uL RBC (4.60-5.80) X10*6/uL Hgb (14.0-18.0) g/dl Hct (42.0-52.0) % MCV (80.0-98.0) fL MCH (27.0-33.0) pg MCHC (31.0-36.0) g/dl RDW (11.0-16.0) % Plt Count (160-400) X10*3/uL MPV (9.4-12.4) fL Immature Gran % (Auto) (0.0-0.4) % Neut % (Auto) (45-73) % Lymph % (Auto) (20-40) % Roane % (Auto) (2-11) % Eos % (Auto) (0-4) % Baso % (Auto) (0-2) % Lymph # (Auto) (1.2-4.9) X10*3/uL Roane # (Auto) (0.1-1.2) X10*3/uL Eos # (Auto) (0.0-0.4) X10*3/uL Baso # (Auto) (0.0-0.2) X10*3/uL Abs Immat Gran (auto) (0.00-0.03) X10*3/uL Absolute Neuts (auto) (2.0-8.3) x10*3/uL Absolute Nucleated RBC (0.0-0.012) X10*3/uL Nucleated RBC % (auto) (0.0-0.2) /100WBC Sodium (135-145) mmol/L Potassium (3.3-5.1) mmol/L Chloride (96-108) mmol/L Carbon Dioxide (22-29) mmol/L Anion Gap (12-20) BUN (9-16) mg/dL Creatinine (0.5-1.4) mg/dL Estim Creat Clear Calc Estimated GFR POC Glucose 82 (60-115) mg/dL Random Glucose (60-115) mg/dL Calcium (8.4-10.2) mg/dL Magnesium (1.6-2.6) mg/dL Total Bilirubin (0.0-1.0) mg/dL Direct Bilirubin (0.0-0.5) mg/dL AST (5-37) U/L ALT (0-40) U/L Alkaline Phosphatase (39-117) U/L Troponin I High Sens (<3.5-35.0) ng/L B-Natriuretic Peptide 46 (<100) pg/mL Total Protein (6.5-8.0) g/dL Albumin (3.5-5.0) g/dL COVID-19 ([facility]) Negative (Negative) COVID-19 Clin Com See Note 10/24/21 Range/Units 14:03 WBC (4.8-10.8) X10*3/uL RBC (4.60-5.80) X10*6/uL Hgb (14.0-18.0) g/dl Hct (42.0-52.0) % MCV (80.0-98.0) fL MCH (27.0-33.0) pg MCHC (31.0-36.0) g/dl RDW (11.0-16.0) % Plt Count (160-400) X10*3/uL MPV (9.4-12.4) fL Immature Gran % (Auto) (0.0-0.4) % Neut % (Auto) (45-73) % Lymph % (Auto) (20-40) % Roane % (Auto) (2-11) % Eos % (Auto) (0-4) % Baso % (Auto) (0-2) % Lymph # (Auto) (1.2-4.9) X10*3/uL Roane # (Auto) (0.1-1.2) X10*3/uL Eos # (Auto) (0.0-0.4) X10*3/uL Baso # (Auto) (0.0-0.2) X10*3/uL Abs Immat Gran (auto) (0.00-0.03) X10*3/uL Absolute Neuts (auto) (2.0-8.3) x10*3/uL Absolute Nucleated RBC (0.0-0.012) X10*3/uL Nucleated RBC % (auto) (0.0-0.2) /100WBC Sodium (135-145) mmol/L Potassium (3.3-5.1) mmol/L Chloride (96-108) mmol/L Carbon Dioxide (22-29) mmol/L Anion Gap (12-20) BUN (9-16) mg/dL Creatinine (0.5-1.4) mg/dL Estim Creat Clear Calc Estimated GFR POC Glucose (60-115) mg/dL Random Glucose (60-115) mg/dL Calcium (8.4-10.2) mg/dL Magnesium (1.6-2.6) mg/dL Total Bilirubin (0.0-1.0) mg/dL Direct Bilirubin (0.0-0.5) mg/dL AST (5-37) U/L ALT (0-40) U/L Alkaline Phosphatase (39-117) U/L Troponin I High Sens 28.5 D (<3.5-35.0) ng/L B-Natriuretic Peptide (<100) pg/mL Total Protein (6.5-8.0) g/dL Albumin (3.5-5.0) g/dL COVID-19 ([facility]) (Negative) COVID-19 Clin Com Imaging Data Chest x-ray: Attestation: I personally reviewed and interpreted this imaging study as follows: Radiologist's impression: FINDINGS: The lungs are well expanded. Small bilateral pleural effusions. No dense consolidation. No edema. No pneumothorax. The cardiomediastinal silhouette is normal in size with a calcified aorta. Degenerative changes throughout the spine. XR/XR chest 2V IMPRESSION: Small pleural effusions. No overt edema. No dense consolidation. ECG Data Attestation: I personally reviewed and interpreted this ECG as follows: ECG interpretation date: 10/24/21 ECG interpretation time: 11:52 Interpretation: Normal sinus rhythm with a rate of 93, normal LA, normal QRS, normal QT Discharge Plan Discharge Clinical Impression: Nephrotic syndrome, Fluid overload, CKD (chronic kidney disease) stage 3, GFR 30-59 ml/min Patient Disposition: Admitted As Inpatient
[2021-10-24 11:48] VITALS: BP 137/78; PULSE 110; RESP 25; TEMP 36.6; O2SAT 97; BMI 40.4
--- NOTE | 2021-10-24 11:50 | ECG_ITS ---
Test Reason : chf Blood Pressure : / mmHG Vent. Rate : 093 BPM Atrial Rate : 093 BPM P-R Int : 190 ms QRS Dur : 098 ms QT Int : 362 ms P-R-T Axes : 036 012 008 degrees QTc Int : 450 ms Normal sinus rhythm Normal ECG When compared with ECG of 27-JUN-2020 11:53, No significant change was found Referred By: Iman Ponce Electronically Signed By:OMER WAGNER MD
[2021-10-24 12:11] LABS: MANUAL DIFF FLAG NO
[2021-10-24 12:12] LABS: Basophils Absolute Auto 0.1 X10*3/uL (0.0-0.2); Basophils Percent Auto 0.8 % (0-2); Eosinophils Absolute Auto 0.3 X10*3/uL (0.0-0.4); Eosinophils Percent Auto 2.9 % (0-4); Hematocrit 35.4 % (42.0-52.0); Hemoglobin 12.1 g/dl (14.0-18.0); Imm Gran Abs Auto 0.07 X10*3/uL (0.00-0.03); Imm Gran Pct Auto 0.8 % (0.0-0.4); Lymphocytes Absolute Auto 1.3 X10*3/uL (1.2-4.9); Lymphocytes Percent Auto 14.1 % (20-40); Mean Corpuscular HGB Conc 34.2 g/dl (31.0-36.0); Mean Corpuscular Hemoglobin 32.2 pg (27.0-33.0); Mean Corpuscular Volume 94.1 fL (80.0-98.0); Mean Platelet Volume 9.3 fL (9.4-12.4); Monocytes Absolute Auto 0.6 X10*3/uL (0.1-1.2); Monocytes Percent Auto 6.8 % (2-11); Neutrophils Absolute Auto 6.6 x10*3/uL (2.0-8.3); Neutrophils Percent Auto 74.6 % (45-73); Platelet Count 390 X10*3/uL (160-400); Red Blood Count 3.76 X10*6/uL (4.60-5.80); Red Cell Distribution Width 13.9 % (11.0-16.0); White Blood Count 8.9 X10*3/uL (4.8-10.8)
[2021-10-24 12:25] LABS: COVID-19 Test Negative (Negative)
[2021-10-24 12:34] LABS: B Type Natriuretic Peptide 46 pg/mL (<100); Troponin-I High Sensitivity 17.4 ng/L (<3.5-35.0)
[2021-10-24 12:36] LABS: Alanine Aminotransferase 14 U/L (0-40); Albumin Level 1.9 g/dL (3.5-5.0); Alkaline Phosphatase 65 U/L (39-117); Anion Gap 14 (12-20); Aspartate Amino Transferase 24 U/L (5-37); Bilirubin Direct < 0.2 mg/dL (0.0-0.5); Bilirubin Total 0.2 mg/dL (0.0-1.0); Blood Urea Nitrogen 33 mg/dL (9-16); Calcium 9.2 mg/dL (8.4-10.2); Carbon Dioxide 18 mmol/L (22-29); Chloride 110 mmol/L (96-108); Creatinine Clr Calc Pharmacy 28.6; Estimated Glomerular Filt Rate 17; Glucose Random 45 mg/dL (60-115); Magnesium 1.8 mg/dL (1.6-2.6); Potassium 3.4 mmol/L (3.3-5.1); Sodium 139 mmol/L (135-145); Total Protein 4.5 g/dL (6.5-8.0)
--- NOTE | 2021-10-24 12:50 | PC.NURSE ---
LAB CALLED, GLUCOSE 45 PT PROVIDED JUICE AND CRACKERS PT REMAINS ASYMPTOMATIC. ALERT AND ORIENTED X 3. SKIN PINK WARM AND DRY. RESP UNLABORED. SITTING UP IN CHAIR, CONVERSING WITH THIS RN.
[2021-10-24 13:05] VITALS: BP 139/70; PULSE 96; RESP 18; O2SAT 99
[2021-10-24 13:09] LABS: Glucose, Whole Blood 82 mg/dL (60-115)
--- NOTE | 2021-10-24 14:18 | PHA.MEDREC ---
Pharmacy Consult ? Medication Reconciliation Pharmacy has completed the medication reconciliation. Spoke to pt, he is unaware of exactly what medications he takes and says no one helps him manage them. Stated that he just does what the doctor tells him. Used most recent claim history to reconcile. Jerrica Arita, DamiánD
[2021-10-24] MEDS: Furosemide 100 MG/10 ML VIAL 120 MG IVPUSH (14:40)
[2021-10-24 14:48] LABS: Troponin-I High Sensitivity 28.5 ng/L (<3.5-35.0)
[2021-10-24 15:17] VITALS: BP 133/68; PULSE 92; RESP 18; O2SAT 98
[2021-10-24] MEDS: metOLazone 5 MG TABLET PO (15:24)
--- NOTE | 2021-10-24 15:27 | P.HPHOSP_ITS ---
History of Present Illness Date of Service: 10/24/21 Chief Complaint: edema, shortness of breath a 65 years old male with PMH of diabetes, nephrotic syndrome who presents to the hospital with increased shortness of breath, abdominal distension and swelling in his scrotum and lower extremities. The patient has been admitted to the hospital with similar problem previously and has been followed by doctor Ribeiro as outpatient receiving torsemide, metolazone and Aldactone. He reports that over the last few weeks he has been gaining weight and building up more fluids in his system but did not follow-up or comfort the emergency for any evaluation until today because he is feeling more short of breath and difficult to ambulate because all of the swelling in his lower extremities and scrotum. In the emergency x-ray showed small pleural effusions with blood work and showing hypoglycemia and metabolic acidosis. Review of Systems Review of Systems: No fever, chills But reporting increase weakness No chest pain, palpitation having dyspnea on exertion with shortness of breath abdominal distension with no nausea or vomiting No urinary symptoms No any rash or wounds bilateral lower extremity edema along with sc PMFSH Medical History CHF (congestive heart failure), NYHA class I Congestive heart failure Diabetes 1.5, managed as type 2 Diverticulosis Hiatal hernia History of small bowel obstruction Hyperlipidemia Hypertension Hypothyroidism Nephrotic syndrome Family History Father No problems noted. Social History Household Members: None Housing: Apartment Do you presently have visiting nurse or other home services: Yes Alcohol intake: former Second Hand Smoke Exposure: No Advance Directives: Yes Advance Directives on File: Yes Advance Directives Date on File: 05/01/20 service: No Current occupational status: unemployed and disabled Meds Allergies Allergy/AdvReac Type Severity Reaction Status Date / Time Penicillins Allergy Unknown UNKWN Verified 04/23/20 13:49 Active Medications: Current Medications Pharmacy Consult (Consult Rx Perform Med Rec) 1 each MISCELLANE ONCE PRN PRN Reason: Consult order Home Medications Medication Instructions Recorded Confirmed Last Taken Type levothyroxine 75 mcg tablet 75 mcg PO DAILY 06/27/20 10/24/2122 History amlodipine 5 mg tablet 1 tab PO DAILY 10/24/21 10/24/21 10/23/21 History atorvastatin 40 mg tablet 1 tab PO DAILY 10/24/21 10/24/21 10/23/21 History glipizide 10 mg tablet, extended 1 tab PO BID 10/24/21 10/24/21 10/23/21 History release 24 hr lisinopril 2.5 mg tablet 1 tab PO DAILY 10/24/21 10/24/21 10/23/21 History metformin 500 mg tablet,extended 2 tab PO BID 10/24/21 10/24/21 10/23/21 History release 24 hr metolazone 2.5 mg tablet 1 tab PO DAILY 10/24/21 10/24/21 10/23/21 History sitagliptin 100 mg tablet (Umanguvgrecia) 1 tab PO DAILY 10/24/21 10/24/21 10/23/21 History Physical Exam Vital Signs and Narrative: Vital Signs: Last Vital Signs Temp 98 F 10/24/21 11:48 Pulse 92 10/24/21 15:17 Resp 18 10/24/21 15:17 BP 133/68 10/24/21 15:17 Pulse Ox 98 10/24/21 15:17 BMI result Body Mass Index 40.4 Const: Other: Constitutional : Alert, significant anasarca can be noted Neck : Normal inspection, Supple Cardiovascular : RRR, elevated JVP, + 3 lower extremity edema Respiratory : fair bilateral air entry, no crackles, wheezes or rhonchi Gastrointestinal: soft, lax, Normal bowel sounds, Non tender, abdomen distended Skin : Warm, Dry, dependent edema urological: scrotal edema Neurological : Alert & oriented x3, No focal deficit , CN 2-12 within normal Results Labs CBC and Chem 7: 10/24/21 12:06 10/24/21 12:06 Labs: Laboratory Results - last 24 hr 10/24/21 10/24/21 10/24/21 12:06 12:06 12:06 MCV 94.1 MCH 32.2 MCHC 34.2 RDW 13.9 Plt Count 390 MPV 9.3 L Immature Gran % (Auto) 0.8 H Neut % (Auto) 74.6 H Lymph % (Auto) 14.1 L [place]royo % (Auto) 6.8 Eos % (Auto) 2.9 Baso % (Auto) 0.8 Lymph # (Auto) 1.3 [place] # (Auto) 0.6 Eos # (Auto) 0.3 Baso # (Auto) 0.1 Abs Immat Gran (auto) 0.07 H Absolute Neuts (auto) 6.6 Absolute Nucleated RBC 0.000 Nucleated RBC % (auto) 0.0 Anion Gap 14 Estim Creat Clear Calc 28.6 Estimated GFR 17 POC Glucose Random Glucose 45 L* Calcium 9.2 Magnesium 1.8 Total Bilirubin 0.2 Direct Bilirubin < 0.2 AST 24 ALT 14 Alkaline Phosphatase 65 Troponin I High Sens 17.4 B-Natriuretic Peptide Total Protein 4.5 L Albumin 1.9 L COVID-19 ([facility]) COVID-19 [employer] Com 10/24/21 10/24/21 10/24/21 12:06 12:06 13:04 MCV MCH MCHC RDW Plt Count MPV Immature Gran % (Auto) Neut % (Auto) Lymph % (Auto) [place]royo % (Auto) Eos % (Auto) Baso % (Auto) Lymph # (Auto) [place] # (Auto) Eos # (Auto) Baso # (Auto) Abs Immat Gran (auto) Absolute Neuts (auto) Absolute Nucleated RBC Nucleated RBC % (auto) Anion Gap Estim Creat Clear Calc Estimated GFR POC Glucose 82 Random Glucose Calcium Magnesium Total Bilirubin Direct Bilirubin AST ALT Alkaline Phosphatase Troponin I High Sens B-Natriuretic Peptide 46 Total Protein Albumin COVID-19 ([facility]) Negative COVID-19 Clin Com See Note 10/24/21 14:03 MCV MCH MCHC RDW Plt Count MPV Immature Gran % (Auto) Neut % (Auto) Lymph % (Auto) [place]roy[place] % (Auto) Eos % (Auto) Baso % (Auto) Lymph # (Auto) [place] # (Auto) Eos # (Auto) Baso # (Auto) Abs Immat Gran (auto) Absolute Neuts (auto) Absolute Nucleated RBC Nucleated RBC % (auto) Anion Gap Estim Creat Clear Calc Estimated GFR POC Glucose Random Glucose Calcium Magnesium Total Bilirubin Direct Bilirubin AST ALT Alkaline Phosphatase Troponin I High Sens 28.5 D B-Natriuretic Peptide Total Protein Albumin COVID-19 ([facility]) COVID-19 Clin Com Imaging Radiologist's Impressions: Impressions Chest X-Ray 10/24/21 12:10 IMPRESSION: Small pleural effusions. No overt edema. No dense consolidation. Assessment and Plan (1) Fluid overload: Status: Acute (2) Nephrotic syndrome: Status: Acute (3) Hypoglycemia associated with type 2 diabetes mellitus: Status: Acute Plan a 65 years old male with PMH of diabetes, nephrotic syndrome who presents to the hospital with increased shortness of breath, abdominal distension and swelling in his scrotum and lower extremities. Anasarca 2/2 Nephrotic syndrome increase metolazone to 5 mg Start IV Lasix b.i.d. Consult Nephrology monitor daily intake, input and output Fluid restriction Hypoglycemia in diabetic patient Likely secondary to oral hypoglycemic agents, to hold Use SSI Diabetic diet Hypertension continue amlodipine, Hold lisinopril Hypothyroidism Continue levothoxine DVT PPX Heparin Quality Stroke Does the patient have a stroke diagnosis?: No VTE Prior VTE?: No VTE Risk Level:: Medical - moderate - high VTE Device Contraindication: N/A - Device Ordered VTE Drug Contraindication: Treatment Not Indicated
--- NOTE | 2021-10-24 15:37 | PC.NURSE ---
pt resting comfortably , he received 12ml of Lasix and also the Zaroxlyn PO. urinal at bedside and 300ml obtained so far. VSS
[2021-10-24 17:15] LABS: Glucose, Whole Blood 101 mg/dL (60-115)
[2021-10-24 19:14] VITALS: BP 125/68; PULSE 79; RESP 18; O2SAT 98
[2021-10-24 19:29] LABS: Glucose, Whole Blood 99 mg/dL (60-115)
--- NOTE | 2021-10-24 20:37 | PC.NURSE ---
Took report from Tutu to assume care of Pt, Pt transported from ED in stretcher, Pt A+Ox3, call light in reach, this RN continues to monitor.
[2021-10-24 20:46] LABS: Glucose, Whole Blood 121 mg/dL (60-115)
[2021-10-24] MEDS: Furosemide 100 MG/10 ML VIAL 80 MG IVPUSH (22:26)
[2021-10-25] VITALS: BP 146/7; PULSE 77; RESP 18; TEMP 36.4; O2SAT 97
[2021-10-25] MEDS: Heparin Sodium,Porcine 5,000 UNIT/ML VIAL 5000 UNIT SUBCUT ×2 (06:06→18:00)
[2021-10-25] MEDS: Levothyroxine Sodium 75 MCG TABLET PO (06:06)
[2021-10-25 06:29] LABS: Hematocrit 32.2 % (42.0-52.0); Hemoglobin 10.9 g/dl (14.0-18.0); Mean Corpuscular HGB Conc 33.9 g/dl (31.0-36.0); Mean Corpuscular Hemoglobin 32.1 pg (27.0-33.0); Mean Corpuscular Volume 94.7 fL (80.0-98.0); Mean Platelet Volume 9.8 fL (9.4-12.4); Platelet Count 334 X10*3/uL (160-400); Red Cell Distribution Width 14.1 % (11.0-16.0); White Blood Count 6.6 X10*3/uL (4.8-10.8)
[2021-10-25 06:43] LABS: Anion Gap 11 (12-20); Blood Urea Nitrogen 33 mg/dL (9-16); Calcium 9.1 mg/dL (8.4-10.2); Carbon Dioxide 20 mmol/L (22-29); Chloride 112 mmol/L (96-108); Creatinine Clr Calc Pharmacy 28.6; Estimated Glomerular Filt Rate 17; Glucose Random 82 mg/dL (60-115); Potassium 3.3 mmol/L (3.3-5.1); Sodium 140 mmol/L (135-145)
[2021-10-25 06:49] LABS: B Type Natriuretic Peptide 46 pg/mL (<100)
[2021-10-25 06:56] VITALS: BP 135/83; PULSE 75; RESP 17; TEMP 36.1; O2SAT 98
[2021-10-25 07:38] LABS: Glucose, Whole Blood 82 mg/dL (60-115)
[2021-10-25 08:00] VITALS: PULSE 76; RESP 18; TEMP 36.3; O2SAT 99
[2021-10-25] MEDS: 0.9 % Sodium Chloride Flush 3 ML SYRINGE IVFLUSH ×4 (08:12→19:36)
[2021-10-25] MEDS: Furosemide 100 MG/10 ML VIAL 80 MG IVPUSH ×2 (08:12→19:35)
[2021-10-25] MEDS: Spironolactone 25 MG TABLET PO (08:13)
[2021-10-25] MEDS: Atorvastatin Calcium 40 MG TABLET PO (08:13)
[2021-10-25] MEDS: metOLazone 5 MG TABLET PO (08:13)
[2021-10-25] MEDS: amLODIPine Besylate 5 MG TABLET PO (08:13)
[2021-10-25 08:52] VITALS: BP 144/71; PULSE 76; RESP 18; TEMP 36.3; O2SAT 99
--- NOTE | 2021-10-25 10:07 | MHC.CM.PN ---
PT REPORTS HE LIVES ALONE AND IS COMPLETELY INDEPENDENT PT DENIES USE OF DME OR HOME/COMMUNITY SERVICES PT CONFIRMS HIS PCP IS CHACHO HOFFMANN PT DOES NOT HAVE A HCP, HE SAYS HE MAY CONSIDER COMPLETING ONE BUT WOULD LIKE TO DISCUSS IT WITH HIS POTENTIAL AGENTS FIRST HE IS AGREEABLE TO TAKING INFORMATION AND A BLANK DOCUMENT PT REPORTS HE IS COVID-19 VACCINATED AND HAS RECEIVED [facility] [employer] IMM DELIVERED CURRENT DC PLAN IS HOME WITH NO SERVICES PT HAS HAD [facility] IN THE PAST AND REPORTS HE ENDED IT, HE WOULD PREFER NOT TO HAVE THESE SERVICES AGAIN PT WILL NEED TRANSPORTATION HOME , SHUTTLE VS [facility] DEPENDING ON DAY AND TIME OF DC
[2021-10-25 11:15] LABS: Glucose, Whole Blood 202 mg/dL (60-115)
[2021-10-25] MEDS: Insulin Lispro 100 UNIT/ML 3 ML VIAL SUBCUT ×2 (11:32→20:54)
--- NOTE | 2021-10-25 13:07 | HO.PM.IMPN ---
Subjective Subjective Date of Service: 10/25/21 Interval History: seen and evaluated this morning Swelling still significant but coming down No reported overnight events Review of Systems No fever, chills But reporting increase weakness No chest pain, palpitation having dyspnea on exertion with shortness of breath abdominal distension with no nausea or vomiting No urinary symptoms No any rash or wounds bilateral lower extremity edema along with sc Physical Exam Vital Signs: Vital Signs: Last Vital Signs Temp 97.3 F 10/25/21 08:52 Pulse 76 10/25/21 08:52 Resp 18 10/25/21 08:52 BP 144/71 H 10/25/21 08:52 Pulse Ox 99 10/25/21 08:52 BMI result Body Mass Index 40.4 Const: Other: Constitutional : Alert, significant anasarca can be noted Neck : Normal inspection, Supple Cardiovascular : RRR, elevated JVP, + 3 lower extremity edema Respiratory : fair bilateral air entry, no crackles, wheezes or rhonchi Gastrointestinal: soft, lax, Normal bowel sounds, Non tender, abdomen distended Skin : Warm, Dry, dependent edema urological: scrotal edema Neurological : Alert & oriented x3, No focal deficit , CN 2-12 within normal Objective Data Active Medications Acetaminophen (Acetaminophen 325 Mg Tablet) 650 mg PO Q6H PRN PRN Reason: Pain, Mild (Pain Scale 1-3) Amlodipine Besylate (Amlodipine Besylate 5 Mg Tablet) 5 mg PO DAILY [facility]; Protocol Last Admin: 10/25/21 08:13 Dose: 5 mg Documented by: COTEMA Atorvastatin Calcium (Atorvastatin Calcium 40 Mg Tablet) 40 mg PO DAILY [facility] Last Admin: 10/25/21 08:13 Dose: 40 mg Documented by: COTEMA Furosemide (Furosemide 100 Mg/10 Ml Vial) 80 mg IVPUSH Q12H [facility]; Protocol Last Admin: 10/25/21 08:12 Dose: 80 mg Documented by: COTEMA Heparin Sodium (Porcine) (Heparin Sodium,Porcine 5,000 Unit/Ml Vial) 5,000 unit SUBCUT Q12H [facility] Last Admin: 10/25/21 06:06 Dose: 5,000 unit Documented by: RUBENQC Insulin Human Lispro (Insulin Lispro 100 Unit/Ml 3 Ml Vial) 0 unit SUBCUT QIDACHS [facility]; Protocol Last Admin: 10/25/21 11:32 Dose: 4 unit Documented by: ARMIN Levothyroxine Sodium (Levothyroxine Sodium 75 Mcg Tablet) 75 mcg PO DAILY@0600 [facility] Last Admin: 10/25/21 06:06 Dose: 75 mcg Documented by: BRIDGET Metolazone (Metolazone 5 Mg Tablet) 5 mg PO DAILY [facility] Last Admin: 10/25/21 08:13 Dose: 5 mg Documented by: ARMIN Ondansetron HCl (Ondansetron Hcl 4 Mg/2 Ml Vial) 4 mg IVPUSH Q8H PRN PRN Reason: Nausea and Vomiting Pharmacy Consult (Consult Rx Perform Med Rec) 1 each MISCELLANE ONCE PRN PRN Reason: Consult order Sodium Chloride (0.9 % Sodium Chloride Flush 3 Ml Syringe) 3 ml IVFLUSH QSHIFT [facility] Last Admin: 10/25/21 08:12 Dose: 3 ml Documented by: ARMIN Spironolactone (Spironolactone 25 Mg Tablet) 25 mg PO DAILY [facility]; Protocol Last Admin: 10/25/21 08:13 Dose: 25 mg Documented by: ARMIN Labs CBC & Chem 7: 10/25/21 05:49 10/25/21 05:49 Labs: Laboratory Results - last 24 hr 10/24/21 10/24/21 10/24/21 13:04 14:03 17:07 MCV MCH MCHC RDW Plt Count MPV Absolute Nucleated RBC Nucleated RBC % (auto) Anion Gap Estim Creat Clear Calc Estimated GFR POC Glucose 82 101 Random Glucose Calcium Troponin I High Sens 28.5 D B-Natriuretic Peptide 10/24/21 10/24/21 10/25/21 19:26 20:42 05:49 MCV MCH MCHC RDW Plt Count MPV Absolute Nucleated RBC Nucleated RBC % (auto) Anion Gap Estim Creat Clear Calc Estimated GFR POC Glucose 99 121 H Random Glucose Calcium Troponin I High Sens B-Natriuretic Peptide 46 10/25/21 10/25/21 10/25/21 05:49 05:49 07:31 MCV 94.7 MCH 32.1 MCHC 33.9 RDW 14.1 Plt Count 334 MPV 9.8 Absolute Nucleated RBC 0.000 Nucleated RBC % (auto) 0.0 Anion Gap 11 L Estim Creat Clear Calc 28.6 Estimated GFR 17 POC Glucose 82 Random Glucose 82 D Calcium 9.1 Troponin I High Sens B-Natriuretic Peptide 10/25/21 11:10 MCV MCH MCHC RDW Plt Count MPV Absolute Nucleated RBC Nucleated RBC % (auto) Anion Gap Estim Creat Clear Calc Estimated GFR POC Glucose 202 H Random Glucose Calcium Troponin I High Sens B-Natriuretic Peptide Assessment and Plan (1) Hypoglycemia associated with type 2 diabetes mellitus: Status: Acute (2) Fluid overload: Status: Acute (3) Anasarca associated with disorder of kidney: Status: Acute Plan a 65 years old male with PMH of diabetes, nephrotic syndrome who presents to the hospital with increased shortness of breath, abdominal distension and swelling in his scrotum and lower extremities. Anasarca 2/2 Nephrotic syndrome continue metolazone to 5 mg continue IV Lasix b.i.d. Consult Nephrology monitor daily intake, input and output Fluid restriction Hypoglycemia in diabetic patient resolved Likely secondary to oral hypoglycemic agents, to hold Use SSI Diabetic diet Hypertension continue amlodipine, Hold lisinopril Hypothyroidism Continue levothoxine DVT PPX Heparin Quality Stroke Does the patient have a stroke diagnosis?: No VTE Prior VTE?: No VTE Risk Level:: Medical - moderate - high VTE Device Contraindication: N/A - Device Ordered VTE Drug Contraindication: Treatment Not Indicated
[2021-10-25 15:17] VITALS: BP 125/90; PULSE 75; RESP 18; TEMP 36.6; O2SAT 98
[2021-10-25 16:33] LABS: Glucose, Whole Blood 100 mg/dL (60-115)
[2021-10-25 20:15] LABS: Glucose, Whole Blood 170 mg/dL (60-115)
[2021-10-25 23:25] VITALS: BP 140/78; PULSE 73; RESP 18; TEMP 36.6; O2SAT 99
[2021-10-26 04:43] LABS: Anion Gap 12 (12-20); Blood Urea Nitrogen 32 mg/dL (9-16); Calcium 9.2 mg/dL (8.4-10.2); Carbon Dioxide 21 mmol/L (22-29); Chloride 108 mmol/L (96-108); Creatinine Clr Calc Pharmacy 27.4; Estimated Glomerular Filt Rate 16; Glucose Random 101 mg/dL (60-115); Potassium 3.2 mmol/L (3.3-5.1); Sodium 138 mmol/L (135-145)
[2021-10-26 04:56] LABS: Alanine Aminotransferase 15 U/L (0-40); Albumin Level 1.7 g/dL (3.5-5.0); Alkaline Phosphatase 48 U/L (39-117); Aspartate Amino Transferase 18 U/L (5-37); Bilirubin Direct < 0.2 mg/dL (0.0-0.5); Bilirubin Total 0.2 mg/dL (0.0-1.0); Total Protein 3.9 g/dL (6.5-8.0)
[2021-10-26] MEDS: Heparin Sodium,Porcine 5,000 UNIT/ML VIAL 5000 UNIT SUBCUT ×2 (05:54→17:02)
[2021-10-26] MEDS: Levothyroxine Sodium 75 MCG TABLET PO (05:55)
[2021-10-26 07:36] VITALS: BP 130/70; PULSE 69; RESP 20; TEMP 36.2; O2SAT 98
[2021-10-26 07:57] LABS: Glucose, Whole Blood 105 mg/dL (60-115)
[2021-10-26] MEDS: 0.9 % Sodium Chloride Flush 3 ML SYRINGE IVFLUSH ×2 (10:09→17:02)
[2021-10-26] MEDS: amLODIPine Besylate 5 MG TABLET PO (10:10)
[2021-10-26] MEDS: Spironolactone 25 MG TABLET PO (10:10)
[2021-10-26] MEDS: Furosemide 100 MG/10 ML VIAL 80 MG IVPUSH ×2 (10:10→21:35)
[2021-10-26] MEDS: Potassium Chloride Packet 20 MEQ PACKET 40 MEQ PO ×2 (10:10→12:31)
[2021-10-26] MEDS: metOLazone 5 MG TABLET PO (10:10)
[2021-10-26] MEDS: Atorvastatin Calcium 40 MG TABLET PO (10:11)
[2021-10-26 10:59] VITALS: BP 137/68; PULSE 76; RESP 18; TEMP 36.1; O2SAT 98
--- NOTE | 2021-10-26 11:15 | P.PNIM_ITS ---
Subjective Subjective Date of Service: 10/26/21 Interval History: seen and evaluated this morning Swelling improving on coming down smoothly kidney function still worsening gradually No reported overnight events Review of Systems No fever, chills But reporting improved weakness No chest pain, palpitation dyspnea improving as long as edema abdominal distension with no nausea or vomiting No urinary symptoms No any rash or wounds bilateral lower extremity edema along with scrotal edema improving slowly Physical Exam Vital Signs: Vital Signs: Last Vital Signs Temp 97.0 F 10/26/21 10:59 Pulse 76 10/26/21 10:59 Resp 18 10/26/21 10:59 BP 137/68 10/26/21 10:59 Pulse Ox 98 10/26/21 10:59 BMI result Body Mass Index 40.4 Const: Other: Constitutional : Alert, significant anasarca can be noted Neck : Normal inspection, Supple Cardiovascular : RRR, elevated JVP, +2 lower extremity edema Respiratory : fair bilateral air entry, no crackles, wheezes or rhonchi Gastrointestinal: soft, lax, Normal bowel sounds, Non tender, abdomen distended Skin : Warm, Dry, dependent edema urological: scrotal edema Neurological : Alert & oriented x3, No focal deficit , CN 2-12 within normal Objective Data Active Medications Acetaminophen (Acetaminophen 325 Mg Tablet) 650 mg PO Q6H PRN PRN Reason: Pain, Mild (Pain Scale 1-3) Amlodipine Besylate (Amlodipine Besylate 5 Mg Tablet) 5 mg PO DAILY [facility]; Protocol Last Admin: 10/26/21 10:10 Dose: 5 mg Documented by: COTEMA Atorvastatin Calcium (Atorvastatin Calcium 40 Mg Tablet) 40 mg PO DAILY [facility] Last Admin: 10/26/21 10:11 Dose: 40 mg Documented by: COTEMA Furosemide (Furosemide 100 Mg/10 Ml Vial) 80 mg IVPUSH Q12H [facility]; Protocol Last Admin: 10/26/21 10:10 Dose: 80 mg Documented by: TYRELLEMA Heparin Sodium (Porcine) (Heparin Sodium,Porcine 5,000 Unit/Ml Vial) 5,000 unit SUBCUT Q12H [facility] Last Admin: 10/26/21 05:54 Dose: 5,000 unit Documented by: RUBENQC Insulin Human Lispro (Insulin Lispro 100 Unit/Ml 3 Ml Vial) 0 unit SUBCUT QIDACHS [facility]; Protocol Last Admin: 10/26/21 08:10 Dose: Not Given Documented by: ARMIN Non-Admin Reason: No Insulin Coverage Levothyroxine Sodium (Levothyroxine Sodium 75 Mcg Tablet) 75 mcg PO DAILY@0600 [facility] Last Admin: 10/26/21 05:55 Dose: 75 mcg Documented by: RUBENQC Metolazone (Metolazone 5 Mg Tablet) 5 mg PO DAILY [facility] Last Admin: 10/26/21 10:10 Dose: 5 mg Documented by: ARMIN Ondansetron HCl (Ondansetron Hcl 4 Mg/2 Ml Vial) 4 mg IVPUSH Q8H PRN PRN Reason: Nausea and Vomiting Pharmacy Consult (Consult Rx Perform Med Rec) 1 each MISCELLANE ONCE PRN PRN Reason: Consult order Potassium Chloride (Potassium Chloride Packet 20 Meq Packet) 40 meq PO Q4H [facility] Stop: 10/26/21 12:46 Last Admin: 10/26/21 10:10 Dose: 40 meq Documented by: ARMIN Sodium Chloride (0.9 % Sodium Chloride Flush 3 Ml Syringe) 3 ml IVFLUSH QSHIFT [facility] Last Admin: 10/26/21 10:09 Dose: 3 ml Documented by: ARMIN Spironolactone (Spironolactone 25 Mg Tablet) 25 mg PO DAILY [facility]; Protocol Last Admin: 10/26/21 10:10 Dose: 25 mg Documented by: ARMIN Labs CBC & Chem 7: 10/25/21 05:49 10/26/21 03:26 Labs: Laboratory Results - last 24 hr 10/25/21 10/25/21 10/25/21 11:10 15:44 19:52 Anion Gap Estim Creat Clear Calc Estimated GFR POC Glucose 202 H 100 170 H Random Glucose Calcium Magnesium Total Bilirubin Direct Bilirubin AST ALT Alkaline Phosphatase Total Protein Albumin 10/26/21 10/26/21 10/26/21 03:26 03:26 07:39 Anion Gap 12 Estim Creat Clear Calc 27.4 Estimated GFR 16 POC Glucose 105 Random Glucose 101 Calcium 9.2 Magnesium 2.0 Total Bilirubin 0.2 Direct Bilirubin < 0.2 AST 18 ALT 15 Alkaline Phosphatase 48 D Total Protein 3.9 L Albumin 1.7 L Assessment and Plan (1) Anasarca associated with disorder of kidney: Status: Acute (2) Hypoglycemia associated with type 2 diabetes mellitus: Status: Acute (3) Acute renal failure superimposed on stage 3 chronic kidney disease: Status: Acute Plan a 65 years old male with PMH of diabetes, nephrotic syndrome who presents to the hospital with increased shortness of breath, abdominal distension and swelling in his scrotum and lower extremities. Anasarca 2/2 Nephrotic syndrome continue metolazone to 5 mg continue IV Lasix b.i.d. Consult Nephrology still pending monitor daily intake, input and output Fluid restriction acute kidney injury on CKD stage 3 Creatinine increasing from 1.7-3.8 this admission over 1 year course patient will need close monitoring and might eventually in the on dialysis continue to monitor intake and output and follow BMP Pending Nephrology opinion Hypoglycemia in diabetic patient resolved Likely secondary to oral hypoglycemic agents, to hold Use SSI Diabetic diet Hypertension continue amlodipine, Hold lisinopril Hypothyroidism Continue levothoxine DVT PPX Heparin Quality Stroke Does the patient have a stroke diagnosis?: No VTE Prior VTE?: No VTE Risk Level:: Medical - moderate - high VTE Device Contraindication: N/A - Device Ordered VTE Drug Contraindication: Treatment Not Indicated
[2021-10-26 11:28] LABS: Glucose, Whole Blood 149 mg/dL (60-115)
[2021-10-26 15:17] VITALS: BP 137/79; PULSE 73; RESP 18; TEMP 36.4; O2SAT 98
[2021-10-26 16:08] LABS: Glucose, Whole Blood 151 mg/dL (60-115)
[2021-10-26] MEDS: Insulin Lispro 100 UNIT/ML 3 ML VIAL SUBCUT (17:03)
[2021-10-26 20:26] LABS: Glucose, Whole Blood 119 mg/dL (60-115)
[2021-10-26 23:34] VITALS: BP 139/72; PULSE 75; RESP 18; TEMP 36.1; O2SAT 98
[2021-10-27 06:00] LABS: Hematocrit 37.3 % (42.0-52.0); Hemoglobin 12.7 g/dl (14.0-18.0); Mean Corpuscular Hemoglobin 32.2 pg (27.0-33.0); Mean Corpuscular Volume 94.4 fL (80.0-98.0); Mean Platelet Volume 9.7 fL (9.4-12.4); Platelet Count 379 X10*3/uL (160-400); Red Blood Count 3.95 X10*6/uL (4.60-5.80); Red Cell Distribution Width 13.7 % (11.0-16.0); White Blood Count 6.9 X10*3/uL (4.8-10.8)
[2021-10-27] MEDS: Levothyroxine Sodium 75 MCG TABLET PO (06:02)
[2021-10-27] MEDS: Heparin Sodium,Porcine 5,000 UNIT/ML VIAL 5000 UNIT SUBCUT ×2 (06:03→19:17)
[2021-10-27 06:15] LABS: Anion Gap 12 (12-20); Blood Urea Nitrogen 30 mg/dL (9-16); Calcium 9.9 mg/dL (8.4-10.2); Carbon Dioxide 24 mmol/L (22-29); Chloride 106 mmol/L (96-108); Creatinine Clr Calc Pharmacy 27.2; Estimated Glomerular Filt Rate 16; Glucose Random 117 mg/dL (60-115); Potassium 3.6 mmol/L (3.3-5.1); Sodium 138 mmol/L (135-145)
[2021-10-27 07:41] VITALS: BP 132/74; PULSE 81; RESP 17; TEMP 36.9; O2SAT 99
[2021-10-27 07:56] LABS: Glucose, Whole Blood 115 mg/dL (60-115)
--- NOTE | 2021-10-27 09:34 | MHC.CLN ---
NUTRITION ADDED DIABETIC 2200 KCAL TO THERAPEUTIC DIET. DIET=DIABETIC 2200 KCAL, 2 GRAM SODIUM, 1200 ML FLUID RESTRICTION.
[2021-10-27] MEDS: metOLazone 5 MG TABLET PO (09:44)
[2021-10-27] MEDS: amLODIPine Besylate 5 MG TABLET PO (09:44)
[2021-10-27] MEDS: Spironolactone 25 MG TABLET PO (09:44)
[2021-10-27] MEDS: Atorvastatin Calcium 40 MG TABLET PO (09:44)
[2021-10-27] MEDS: Furosemide 100 MG/10 ML VIAL 80 MG IVPUSH ×2 (09:45→20:24)
[2021-10-27] MEDS: 0.9 % Sodium Chloride Flush 3 ML SYRINGE IVFLUSH ×2 (09:45→17:51)
--- NOTE | 2021-10-27 11:16 | MHC.CM.PN ---
Patient is not yet medically cleared for dc (r/t Kidney function, IV Lasix); Home is the goal for dc and CM will continue to follow for possible need to adjust the dc plan.
--- NOTE | 2021-10-27 12:05 | P.CONNP_ITS ---
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 He was admitted for further management. Nephrology has been consulted to assist in his clinical care during his current hospital stay Review of Systems Review of Systems Yes all other systems are reviewed and are negative PMFSH Past Medical History Medical History CHF (congestive heart failure), NYHA class I Congestive heart failure Diabetes 1.5, managed as type 2 Diverticulosis Hiatal hernia History of small bowel obstruction Hyperlipidemia Hypertension Hypothyroidism Nephrotic syndrome Family History Family History Father No problems noted. Social History Social History Household Members: None Housing: Apartment Do you presently have visiting nurse or other home services: Yes Alcohol intake: unknown Patient Tobacco Use Status: Never used Tobacco Second Hand Smoke Exposure: No Advance Directives Date on File: 05/01/20 service: No Current occupational status: unemployed and disabled Meds Allergies Allergy/AdvReac Type Severity Reaction Status Date / Time Penicillins Allergy Unknown UNKWN Verified 04/23/20 13:49 Active Medications: Current Medications Acetaminophen (Acetaminophen 325 Mg Tablet) 650 mg PO Q6H PRN PRN Reason: Pain, Mild (Pain Scale 1-3) Amlodipine Besylate (Amlodipine Besylate 5 Mg Tablet) 5 mg PO DAILY [facility]; Protocol Last Admin: 10/27/21 09:44 Dose: 5 mg Documented by: Atorvastatin Calcium (Atorvastatin Calcium 40 Mg Tablet) 40 mg PO DAILY [facility] Last Admin: 10/27/21 09:44 Dose: 40 mg Documented by: Furosemide (Furosemide 100 Mg/10 Ml Vial) 80 mg IVPUSH Q12H [facility]; Protocol Last Admin: 10/27/21 09:45 Dose: 80 mg Documented by: Heparin Sodium (Porcine) (Heparin Sodium,Porcine 5,000 Unit/Ml Vial) 5,000 unit SUBCUT Q12H [facility] Last Admin: 10/27/21 06:03 Dose: 5,000 unit Documented by: Insulin Human Lispro (Insulin Lispro 100 Unit/Ml 3 Ml Vial) 0 unit SUBCUT QIDACHS [facility]; Protocol Last Admin: 10/27/21 08:16 Dose: Not Given Documented by: Levothyroxine Sodium (Levothyroxine Sodium 75 Mcg Tablet) 75 mcg PO DAILY@0600 [facility] Last Admin: 10/27/21 06:02 Dose: 75 mcg Documented by: Metolazone (Metolazone 5 Mg Tablet) 5 mg PO DAILY [facility] Last Admin: 10/27/21 09:44 Dose: 5 mg Documented by: Ondansetron HCl (Ondansetron Hcl 4 Mg/2 Ml Vial) 4 mg IVPUSH Q8H PRN PRN Reason: Nausea and Vomiting Pharmacy Consult (Consult Rx Perform Med Rec) 1 each MISCELLANE ONCE PRN PRN Reason: Consult order Sodium Chloride (0.9 % Sodium Chloride Flush 3 Ml Syringe) 3 ml IVFLUSH QSHIFT [facility] Last Admin: 10/27/21 09:45 Dose: 3 ml Documented by: Spironolactone (Spironolactone 25 Mg Tablet) 25 mg PO DAILY [facility]; Protocol Last Admin: 10/27/21 09:44 Dose: 25 mg Documented by: Home Medications Medication Instructions Recorded Confirmed Last Taken Type levothyroxine 75 mcg tablet 75 mcg PO DAILY 06/27/20 10/24/21 10/23/21 History amlodipine 5 mg tablet 1 tab PO DAILY 10/24/21 10/24/21 10/23/21 History atorvastatin 40 mg tablet 1 tab PO DAILY 10/24/21 10/24/21 10/23/21 History glipizide 10 mg tablet, extended 1 tab PO BID 10/24/21 10/24/21 10/23/21 History release 24 hr lisinopril 2.5 mg tablet 1 tab PO DAILY 10/24/21 10/24/21 10/23/21 History metformin 500 mg tablet,extended 2 tab PO BID 10/24/21 10/24/21 10/23/21 History release 24 hr metolazone 2.5 mg tablet 1 tab PO DAILY 10/24/21 10/24/21 10/23/21 History sitagliptin 100 mg tablet (Januvia) 1 tab PO DAILY 10/24/21 10/24/21 10/23/21 History Physical Exam Vital Signs: Last Vital Signs Temp 98.5 F 10/27/21 07:41 Pulse 81 10/27/21 07:41 Resp 17 10/27/21 07:41 BP 132/74 10/27/21 07:41 Pulse Ox 99 10/27/21 07:41 BMI result Body Mass Index 40.4 Const General: no acute distress Orientation/consciousness: patient oriented x3 Eyes EOM: EOMs intact bilaterally Neck Neck: Yes supple Resp Auscultation: diminished lung sounds Cardio Rate: regular rate GI Palpation (GI): Soft to palpation Other: Scrotal edema Neuro General: patient oriented x3 and moves all extremities Results Lab Results Result Diagrams: 10/27/21 05:32 10/27/21 05:32 Lab results: Chemistry 10/24/21 10/25/21 10/26/21 12:06 05:49 03:26 Sodium 139 140 138 Potassium 3.4 3.3 3.2 L Carbon Dioxide 18 L 20 L 21 L BUN 33 H 33 H 32 H Creatinine 3.65 H 3.66 H 3.82 H Calcium 9.2 9.1 9.2 10/27/21 05:32 Sodium 138 Potassium 3.6 Carbon Dioxide 24 BUN 30 H Creatinine 3.85 H Calcium 9.9 D Hematology 10/24/21 10/25/21 10/27/21 12:06 05:49 05:32 WBC 8.9 6.6 6.9 Hgb 12.1 L 10.9 L 12.7 L Plt Count 390 334 379 Assessment and Plan (1) Acute renal failure superimposed on stage 3 chronic kidney disease: Status: Acute Plan 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 Had received Rituxan in the past; MED likely due to either progression of disease or CRS Currently getting diuresis; Anti NICK 2 R antibody ordered If creatinine is worsening, needs Doppler to R/O Renal vein thrombosis 2 Gram Na restriction; Daily weights; Fluid restriction 48 oz/24 hours Labs AM; May need renal biopsy if renal function doesn't improve to baseline with supp care Procedures Date of Service Date of Service: 10/27/21
[2021-10-27 12:20] LABS: Glucose, Whole Blood 181 mg/dL (60-115)
[2021-10-27] MEDS: Insulin Lispro 100 UNIT/ML 3 ML VIAL SUBCUT ×2 (12:28→22:26)
--- NOTE | 2021-10-27 14:06 | P.PNIM_ITS ---
Subjective Subjective Date of Service: 10/27/21 Interval History: seen and evaluated this morning Swelling improving and coming down smoothly kidney function stabilized No reported overnight events Review of Systems No fever, chills But reporting improved weakness No chest pain, palpitation dyspnea improving as long as edema abdominal distension with no nausea or vomiting No urinary symptoms No any rash or wounds bilateral lower extremity edema along with scrotal edema improving slowly Physical Exam Vital Signs: Vital Signs: Last Vital Signs Temp 98.5 F 10/27/21 07:41 Pulse 81 10/27/21 07:41 Resp 17 10/27/21 07:41 BP 132/74 10/27/21 07:41 Pulse Ox 99 10/27/21 07:41 BMI result Body Mass Index 40.4 Const: Other: Constitutional : Alert, significant anasarca can be noted Neck : Normal inspection, Supple Cardiovascular : RRR, elevated JVP, +2 lower extremity edema Respiratory : fair bilateral air entry, no crackles, wheezes or rhonchi Gastrointestinal: soft, lax, Normal bowel sounds, Non tender, abdomen distended Skin : Warm, Dry, dependent edema urological: scrotal edema improving Neurological : Alert & oriented x3, No focal deficit , CN 2-12 within normal Objective Data Active Medications Acetaminophen (Acetaminophen 325 Mg Tablet) 650 mg PO Q6H PRN PRN Reason: Pain, Mild (Pain Scale 1-3) Amlodipine Besylate (Amlodipine Besylate 5 Mg Tablet) 5 mg PO DAILY [facility] BEDS AT [facility]; Protocol Last Admin: 10/27/21 09:44 Dose: 5 mg Documented by: OLIVIA Atorvastatin Calcium (Atorvastatin Calcium 40 Mg Tablet) 40 mg PO DAILY [facility] 234 BEDS AT [facility] Last Admin: 10/27/21 09:44 Dose: 40 mg Documented by: OLIVIA Furosemide (Furosemide 100 Mg/10 Ml Vial) 80 mg IVPUSH Q12H [facility]; Protocol Last Admin: 10/27/21 09:45 Dose: 80 mg Documented by: OLIVIA Heparin Sodium (Porcine) (Heparin Sodium,Porcine 5,000 Unit/Ml Vial) 5,000 unit SUBCUT Q12H [facility] Last Admin: 10/27/21 06:03 Dose: 5,000 unit Documented by: CARLA Insulin Human Lispro (Insulin Lispro 100 Unit/Ml 3 Ml Vial) 0 unit SUBCUT QIDACHS COUNTS INCLUDE 234 BEDS AT THE [facility]; Protocol Last Admin: 10/27/21 12:28 Dose: 2 unit Documented by: OLIVIA Levothyroxine Sodium (Levothyroxine Sodium 75 Mcg Tablet) 75 mcg PO DAILY@0600 [facility]S [facility] 234 BEDS AT [facility] Last Admin: 10/27/21 06:02 Dose: 75 mcg Documented by: CARLA Metolazone (Metolazone 5 Mg Tablet) 5 mg PO DAILY [facility]CLUDE 234 BEDS AT [facility] Last Admin: 10/27/21 09:44 Dose: 5 mg Documented by: OLIVIA Ondansetron HCl (Ondansetron Hcl 4 Mg/2 Ml Vial) 4 mg IVPUSH Q8H PRN PRN Reason: Nausea and Vomiting Pharmacy Consult (Consult Rx Perform Med Rec) 1 each MISCELLANE ONCE PRN PRN Reason: Consult order Sodium Chloride (0.9 % Sodium Chloride Flush 3 Ml Syringe) 3 ml IVFLUSH QSHIFT [facility]S [facility]CLUDE 234 BEDS AT [facility] Last Admin: 10/27/21 09:45 Dose: 3 ml Documented by: OLIVIA Spironolactone (Spironolactone 25 Mg Tablet) 25 mg PO DAILY [facility] 234 BEDS AT [facility]; Protocol Last Admin: 10/27/21 09:44 Dose: 25 mg Documented by: OLIVIA Labs CBC & Chem 7: 10/27/21 05:32 10/27/21 05:32 Labs: Laboratory Results - last 24 hr 10/26/21 10/26/21 10/27/21 15:19 19:46 05:32 MCV 94.4 MCH 32.2 MCHC 34.0 RDW 13.7 Plt Count 379 MPV 9.7 Absolute Nucleated RBC 0.000 Nucleated RBC % (auto) 0.0 Anion Gap Estim Creat Clear Calc Estimated GFR POC Glucose 151 H 119 H Random Glucose Calcium 10/27/21 10/27/21 10/27/21 05:32 07:43 11:02 MCV MCH MCHC RDW Plt Count MPV Absolute Nucleated RBC Nucleated RBC % (auto) Anion Gap 12 Estim Creat Clear Calc 27.2 Estimated GFR 16 POC Glucose 115 181 H Random Glucose 117 H Calcium 9.9 D Assessment and Plan (1) Acute renal failure superimposed on stage 3 chronic kidney disease: Status: Acute (2) Anasarca associated with disorder of kidney: Status: Acute (3) Hypoglycemia associated with type 2 diabetes mellitus: Status: Acute (4) Nephrotic syndrome: Status: Acute Plan a 65 years old male with PMH of diabetes, nephrotic syndrome who presents to the hospital with increased shortness of breath, abdominal distension and swelling in his scrotum and lower extremities. Anasarca 2/2 Nephrotic syndrome continue metolazone to 5 mg continue IV Lasix b.i.d. Consult Nephrology still pending monitor daily intake, input and output Fluid restriction Acute kidney injury on CKD stage 3 Creatinine stable around 3.8 Could be secondary to acute or chronic progression patient will need close monitoring and might eventually in the on dialysis Pending Doppler ultrasound to rule out renal vein thrombosis continue to monitor intake and output and follow BMP Pending Nephrology opinion Hypoglycemia in diabetic patient resolved Likely secondary to oral hypoglycemic agents, to hold Use SSI Diabetic diet Hypertension continue amlodipine, Hold lisinopril Hypothyroidism Continue levothoxine DVT PPX Heparin Quality Stroke Does the patient have a stroke diagnosis?: No VTE Prior VTE?: No VTE Risk Level:: Medical - moderate - high VTE Device Contraindication: N/A - Device Ordered VTE Drug Contraindication: Treatment Not Indicated
[2021-10-27 15:21] VITALS: BP 129/74; PULSE 75; RESP 18; TEMP 36.2; O2SAT 97
[2021-10-27 15:31] LABS: Glucose, Whole Blood 137 mg/dL (60-115)
[2021-10-27 19:20] VITALS: BP 131/65; PULSE 79; RESP 18; TEMP 36.3; O2SAT 98
[2021-10-27 21:24] LABS: Glucose, Whole Blood 175 mg/dL (60-115)
[2021-10-27 23:58] VITALS: BP 128/76; PULSE 72; RESP 18; TEMP 36.2; O2SAT 97
[2021-10-28] MEDS: Levothyroxine Sodium 75 MCG TABLET PO (05:51)
[2021-10-28] MEDS: Heparin Sodium,Porcine 5,000 UNIT/ML VIAL 5000 UNIT SUBCUT ×2 (05:51→19:07)
[2021-10-28 06:41] LABS: Anion Gap 13 (12-20); Blood Urea Nitrogen 29 mg/dL (9-16); Calcium 9.4 mg/dL (8.4-10.2); Carbon Dioxide 22 mmol/L (22-29); Chloride 106 mmol/L (96-108); Creatinine Clr Calc Pharmacy 26.9; Estimated Glomerular Filt Rate 16; Glucose Random 105 mg/dL (60-115); Potassium 3.7 mmol/L (3.3-5.1); Sodium 137 mmol/L (135-145)
[2021-10-28 07:20] VITALS: BP 111/71; PULSE 79; RESP 18; TEMP 36.3; O2SAT 98
[2021-10-28 07:47] LABS: Glucose, Whole Blood 106 mg/dL (60-115)
[2021-10-28] MEDS: Furosemide 100 MG/10 ML VIAL 80 MG IVPUSH (08:58)
[2021-10-28] MEDS: 0.9 % Sodium Chloride Flush 3 ML SYRINGE IVFLUSH ×2 (08:58→16:52)
[2021-10-28] MEDS: Atorvastatin Calcium 40 MG TABLET PO (08:59)
[2021-10-28] MEDS: metOLazone 5 MG TABLET PO (08:59)
[2021-10-28] MEDS: Spironolactone 25 MG TABLET PO (08:59)
[2021-10-28] MEDS: amLODIPine Besylate 5 MG TABLET PO (09:00)
--- NOTE | 2021-10-28 10:34 | P.PNIM_ITS ---
Subjective Subjective Date of Service: 10/28/21 Interval History: seen and evaluated this morning Swelling improving and edema coming down smoothly kidney function stabilized No reported overnight events Review of Systems No fever, chills But reporting improved weakness No chest pain, palpitation dyspnea improving as long as edema abdominal distension with no nausea or vomiting No urinary symptoms No any rash or wounds bilateral lower extremity edema along with scrotal edema improving slowly Physical Exam Vital Signs: Vital Signs: Last Vital Signs Temp 97.4 F 10/28/21 07:20 Pulse 79 10/28/21 07:20 Resp 18 10/28/21 07:20 BP 111/71 10/28/21 07:20 Pulse Ox 98 10/28/21 07:20 BMI result Body Mass Index 40.4 Const: Other: Constitutional : Alert, significant anasarca can be noted Neck : Normal inspection, Supple Cardiovascular : RRR, elevated JVP, +1 lower extremity edema Respiratory : fair bilateral air entry, no crackles, wheezes or rhonchi Gastrointestinal: soft, lax, Normal bowel sounds, Non tender, abdomen distended Skin : Warm, Dry, dependent edema urological: scrotal edema improving Neurological : Alert & oriented x3, No focal deficit , CN 2-12 within normal Objective Data Active Medications Acetaminophen (Acetaminophen 325 Mg Tablet) 650 mg PO Q6H PRN PRN Reason: Pain, Mild (Pain Scale 1-3) Amlodipine Besylate (Amlodipine Besylate 5 Mg Tablet) 5 mg PO DAILY [facility]; Protocol Last Admin: 10/28/21 09:00 Dose: 5 mg Documented by: DAVID Atorvastatin Calcium (Atorvastatin Calcium 40 Mg Tablet) 40 mg PO DAILY [facility] Last Admin: 10/28/21 08:59 Dose: 40 mg Documented by: DAVID Heparin Sodium (Porcine) (Heparin Sodium,Porcine 5,000 Unit/Ml Vial) 5,000 unit SUBCUT Q12H [facility] Last Admin: 10/28/21 05:51 Dose: 5,000 unit Documented by: OLGA Insulin Human Lispro (Insulin Lispro 100 Unit/Ml 3 Ml Vial) 0 unit SUBCUT QIDACHS [facility]; Protocol Last Admin: 10/28/21 08:51 Dose: Not Given Documented by: DAVID Non-Admin Reason: No Insulin Coverage Levothyroxine Sodium (Levothyroxine Sodium 75 Mcg Tablet) 75 mcg PO DAILY@0600 [facility] Last Admin: 10/28/21 05:51 Dose: 75 mcg Documented by: OLGA Metolazone (Metolazone 5 Mg Tablet) 5 mg PO DAILY [facility] Last Admin: 10/28/21 08:59 Dose: 5 mg Documented by: DAVID Ondansetron HCl (Ondansetron Hcl 4 Mg/2 Ml Vial) 4 mg IVPUSH Q8H PRN PRN Reason: Nausea and Vomiting Pharmacy Consult (Consult Rx Perform Med Rec) 1 each MISCELLANE ONCE PRN PRN Reason: Consult order Sodium Chloride (0.9 % Sodium Chloride Flush 3 Ml Syringe) 3 ml IVFLUSH QSHIFT [facility] Last Admin: 10/28/21 08:58 Dose: 3 ml Documented by: DAVID Spironolactone (Spironolactone 25 Mg Tablet) 25 mg PO DAILY [facility]; Protocol Last Admin: 10/28/21 08:59 Dose: 25 mg Documented by: DAVID Torsemide (Torsemide 20 Mg Tablet) 100 mg PO DAILY@1700 [facility]; Protocol Labs CBC & Chem 7: 10/27/21 05:32 10/28/21 05:45 Labs: Laboratory Results - last 24 hr 10/27/21 10/27/21 10/27/21 11:02 15:27 21:19 Anion Gap Estim Creat Clear Calc Estimated GFR POC Glucose 181 H 137 H 175 H Random Glucose Calcium 10/28/21 10/28/21 05:45 07:18 Anion Gap 13 Estim Creat Clear Calc 26.9 Estimated GFR 16 POC Glucose 106 Random Glucose 105 Calcium 9.4 Assessment and Plan (1) Acute renal failure superimposed on stage 3 chronic kidney disease: Status: Acute (2) Anasarca associated with disorder of kidney: Status: Acute Plan a 65 years old male with PMH of diabetes, nephrotic syndrome who presents to the hospital with increased shortness of breath, abdominal distension and sw elling in his scrotum and lower extremities. Anasarca 2/2 Nephrotic syndrome continue metolazone to 5 mg continue IV Lasix b.i.d. Consult Nephrology still pending monitor daily intake, input and output Fluid restriction Acute kidney injury on CKD stage 3 Creatinine stable around 3.8 Could be secondary to acute or chronic progression patient will need close monitoring and might eventually in the on dialysis Negative Doppler ultrasound for renal vein thrombosis continue to monitor intake and output and follow BMP Nephrology input appreciated, continue treatment with diuresis and to follow-up as outpatient with doctor Quintin Hypoglycemia in diabetic patient resolved secondary to oral hypoglycemic agents, to hold Use SSI Diabetic diet Hypertension continue amlodipine, Hold lisinopril Hypothyroidism Continue levothoxine DVT PPX Heparin The patient will need continue patient stay for treatment of an ulcer related to throat X syndrome until we get dry weight pending kidney function monitoring per nephrology team. Quality Stroke Does the patient have a stroke diagnosis?: No VTE Prior VTE?: No VTE Risk Level:: Medical - moderate - high VTE Device Contraindication: N/A - Device Ordered VTE Drug Contraindication: Treatment Not Indicated
[2021-10-28 10:48] VITALS: BP 149/66; PULSE 77; RESP 18; TEMP 36.3; O2SAT 98
--- NOTE | 2021-10-28 10:55 | P.PNNP_ITS ---
Subjective Subjective Date of Service: 10/28/21 Interval history: Feels better Physical Exam Vital Signs: Vital Signs: Last Vital Signs Temp 97.3 F 10/28/21 10:48 Pulse 77 10/28/21 10:48 Resp 18 10/28/21 10:48 BP 149/66 H 10/28/21 10:48 Pulse Ox 98 10/28/21 10:48 BMI result Body Mass Index 40.4 Const: General: no acute distress Orientation/consciousness: patient or iented x3 Eyes: EOM: EOMs intact bilaterally Neck: Neck: Yes supple Resp: Auscultation: diminished lung sounds Cardio: Rate: regular rate GI: Palpation (GI): Soft to palpation Neuro: General: patient oriented x3 and moves all extremities Objective Data Labs CBC & Chem 7: 10/27/21 05:32 10/28/21 05:45 Labs: Laboratory Results - last 24 hr 10/27/21 10/27/21 10/27/21 11:02 15:27 21:19 Sodium Potassium Chloride Carbon Dioxide Anion Gap BUN Creatinine Estim Creat Clear Calc Estimated GFR POC Glucose 181 H 137 H 175 H Random Glucose Calcium 10/28/21 10/28/21 05:45 07:18 Sodium 137 Potassium 3.7 Chloride 106 Carbon Dioxide 22 Anion Gap 13 BUN 29 H Creatinine 3.88 H Estim Creat Clear Calc 26.9 Estimated GFR 16 POC Glucose 106 Random Glucose 105 Calcium 9.4 Procedures Date of Service Date of Service: 10/28/21 Assessment & Plan Assessment and plan (1) Acute renal failure superimposed on stage 3 chronic kidney disease: Status: Acute Assessment and Plan: 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 Had received Rituxan in the past; MED likely due to either progression of disease or CRS Currently getting diuresis; Anti NICK 2 R antibody ordered Doppler to R/O Renal vein thrombosis- negative; Shall switch to PO diuretics 2 Gram Na restriction; Daily weights; Fluid restriction 48 oz/24 hours Labs AM; May need renal biopsy as outpt if renal function doesn't improve to baseline with supp care Time Spent With Patient Time: Total time spent is greater than 50% in coordination of care (as documented) at patient's floor/unit and/or counseling patient: Progress Note: Quality Stroke Does the patient have a stroke diagnosis?: No
[2021-10-28 11:34] LABS: Glucose, Whole Blood 192 mg/dL (60-115)
[2021-10-28] MEDS: Insulin Lispro 100 UNIT/ML 3 ML VIAL SUBCUT ×2 (12:02→21:32)
[2021-10-28 16:00] VITALS: BP 155/94; PULSE 82; RESP 16; O2SAT 98
[2021-10-28 16:12] LABS: Glucose, Whole Blood 115 mg/dL (60-115)
[2021-10-28] MEDS: Torsemide 20 MG TABLET 100 MG PO (16:52)
[2021-10-28 19:28] VITALS: BP 130/87; PULSE 79; RESP 18; TEMP 36.9; O2SAT 98
[2021-10-28 19:54] LABS: Glucose, Whole Blood 192 mg/dL (60-115)
[2021-10-28 23:20] VITALS: BP 134/73; PULSE 69; RESP 18; TEMP 36.3; O2SAT 98
[2021-10-29] MEDS: 0.9 % Sodium Chloride Flush 3 ML SYRINGE IVFLUSH ×2 (00:35→08:42)
[2021-10-29 05:45] LABS: Anion Gap 14 (12-20); Blood Urea Nitrogen 30 mg/dL (9-16); Calcium 9.5 mg/dL (8.4-10.2); Carbon Dioxide 22 mmol/L (22-29); Chloride 105 mmol/L (96-108); Creatinine Clr Calc Pharmacy 26.7; Estimated Glomerular Filt Rate 16; Glucose Random 117 mg/dL (60-115); Potassium 3.1 mmol/L (3.3-5.1); Sodium 138 mmol/L (135-145)
[2021-10-29] MEDS: Levothyroxine Sodium 75 MCG TABLET PO (06:12)
[2021-10-29] MEDS: Heparin Sodium,Porcine 5,000 UNIT/ML VIAL 5000 UNIT SUBCUT (06:12)
[2021-10-29 07:04] VITALS: BP 133/73; PULSE 73; RESP 18; TEMP 36.6; O2SAT 98
[2021-10-29 07:21] LABS: Glucose, Whole Blood 110 mg/dL (60-115)
[2021-10-29] MEDS: Potassium Chloride Packet 20 MEQ PACKET 40 MEQ PO ×2 (08:41→10:51)
[2021-10-29] MEDS: Atorvastatin Calcium 40 MG TABLET PO (08:42)
[2021-10-29] MEDS: Spironolactone 25 MG TABLET PO (08:43)
[2021-10-29] MEDS: amLODIPine Besylate 5 MG TABLET PO (08:43)
[2021-10-29] MEDS: metOLazone 5 MG TABLET PO (08:43)
--- NOTE | 2021-10-29 11:12 | PM.PNNEP ---
Subjective Subjective Date of Service: 10/29/21 Interval history: Events noted. All recent data reviewed Physical Exam Vital Signs: Vital Signs: Last Vital Signs Temp 97.8 F 10/29/21 07:04 Pulse 73 10/29/21 07:04 Resp 18 10/29/21 07:04 BP 133/73 10/29/21 07:04 Pulse Ox 98 10/29/21 07:04 BMI result Body Mass Index 40.4 Const: General: comfortable Orientation/consciousness: patient oriented x3 Eyes: EOM: EOMs intact bilaterally Neck: Neck: Yes supple Resp: Auscultation: diminished lung sounds Cardio: Rate: regular rate GI: Palpation (GI): Soft to palpation Neuro: General: patient oriented x3 Objective Data Labs CBC & Chem 7: 10/27/21 05:32 10/29/21 05:05 Labs: Laboratory Results - last 24 hr 10/28/21 10/28/21 10/28/21 11:15 16:06 19:31 Sodium Potassium Chloride Carbon Dioxide Anion Gap BUN Creatinine Estim Creat Clear Calc Estimated GFR POC Glucose 192 H 115 192 H Random Glucose Calcium 10/29/21 10/29/21 05:05 06:59 Sodium 138 Potassium 3.1 L Chloride 105 Carbon Dioxide 22 Anion Gap 14 BUN 30 H Creatinine 3.92 H Estim Creat Clear Calc 26.7 Estimated GFR 16 POC Glucose 110 Random Glucose 117 H Calcium 9.5 Procedures Date of Service Date of Service: 10/29/21 Assessment & Plan Assessment and plan (1) Acute renal failure superimposed on stage 3 chronic kidney disease: Status: Acute Assessment and Plan: 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 Had received Rituxan in the past; MED likely due to either progression of disease Currently getting diuresis; Anti NICK 2 R antibody ordered( pending) Doppler to R/O Renal vein thrombosis- negative; C/W current dose of diuretics 2 Gram Na restriction; Daily weights; Fluid restriction 48 oz/24 hours Labs AM; May need renal biopsy as outpt if renal function doesn't improve to baseline with supp care Time Spent With Patient Time: Total time spent is greater than 50% in coordination of care (as documented) at patient's floor/unit and/or counseling patient: Progress Note: Quality Stroke Does the patient have a stroke diagnosis?: No
[2021-10-29 11:20] LABS: Glucose, Whole Blood 202 mg/dL (60-115)
[2021-10-29] MEDS: Insulin Lispro 100 UNIT/ML 3 ML VIAL SUBCUT (11:42)
--- NOTE | 2021-10-29 12:48 | PM.DS ---
DS: Providers Provider Date of Service: 10/29/21 Date of admission: 10/24/21 15:22 Primary care physician: Segundo Tapia MD Consults: 10/24/21 14:26 Consult to Nephrology Stat Consulting Provider: Komal Sanchez Reason for consultation: nephrotic syndrome 10/24/21 15:25 Consult to Nephrology Routine Consulting Provider: Komal Sanchez Reason for consultation: Anasarca , nephrotic syndrome DS: Diagnosis Discharge Diagnosis (1) Acute renal failure superimposed on stage 3 chronic kidney disease: Status: Acute (2) Anasarca associated with disorder of kidney: Status: Acute (3) Hypoglycemia associated with type 2 diabetes mellitus: Status: Acute (4) Nephrotic syndrome: Status: Acute DS: Summary Hospital Course Hospital Course: Admission note HPI ?a 65 years old male with PMH of diabetes, nephrotic syndrome who presents to the hospital with increased shortness of breath, abdominal distension and swelling in his scrotum and lower extremities.? The patient has been admitted to the hospital with similar problem previously and has been followed by doctor Ribeiro as outpatient receiving torsemide, metolazone and Aldactone.? He reports that over the last few weeks he has been gaining weight and building up more fluids in his system but did not follow-up or comfort the emergency for any evaluation until today because he is feeling more short of breath and difficult to ambulate because all of the swelling in his lower extremities and scrotum. In the emergency x-ray showed small pleural effusions with blood work and showing hypoglycemia and metabolic acidosis. Hospital course The patient was admitted for treatment of anasarca secondary to nephrotic syndrome and fluid overload a. Treated with IV Lasix and metolazone with fair response over the course of hospital stay as the edema and difficulty breathing all resolved and the patient was able to ambulate with no reported difficulty breathing. Evaluated by Nephrology team for acute on chronic kidney disease with creatinine increased almost 3.8 that remains stable during the hospital stay which seems to be chronically progressing of the disease. Nephrology evaluated the patient and Doppler ultrasound was negative for renal vein thrombosis.Anti NICK 2 R antibody ordered and pending. Plan to follow-up with Nephrology as outpatient. Restrict fluid intake to 1 L a day Increase metolazone to 5 mg daily Continue torsemide 100 mg daily Monitor your weight at home and report any changes to your java front end web developer or PCP To repeat blood work next week Decrease glipizide to 1 tablet once daily instead of 2 times to avoid low blood sugars readings. Time Spent with Patient Time attestation: Total time spent providing and/or coordinating discharge services: Discharge coordination time: Greater than 30 minutes Quality: Safe Use of Opioids Does Pt have an Active Cancer Diagnosis on the Problem List?: No Quality: Stroke Does the patient have a stroke diagnosis?: No Physical Exam Vital Signs: Vital Signs: Last Vital Signs Temp 97.8 F 10/29/21 07:04 Pulse 73 10/29/21 07:04 Resp 18 10/29/21 07:04 BP 133/73 10/29/21 07:04 Pulse Ox 98 10/29/21 07:04 BMI result Body Mass Index 40.4 Const: Other: Constitutional : Alert, interactive, not in distress Neck : Normal inspection, Supple Cardiovascular : RRR, elevated JVP, trace bilateral lower extremity edema Respiratory : fair bilateral air entry, no crackles, wheezes or rhonchi Gastrointestinal: soft, lax, Normal bowel sounds, Non tender, abdomen distended Skin : Warm, Dry, dependent edema improving urological: scrotal edema improving Neurological : Alert & oriented x3, No focal deficit , CN 2-12 within normal DS: Data Data Completed and Pending Completed studies during hospitalization [Text1]: Procedures Extraction of Right Inguinal Lymphatic, Percutaneous Approach, Diagnostic (04/23/20) Labs on day of discharge: Laboratory Results - last 24 hr 10/28/21 10/28/21 10/29/21 16:06 19:31 05:05 Sodium 138 Potassium 3.1 L Chloride 105 Carbon Dioxide 22 Anion Gap 14 BUN 30 H Creatinine 3.92 H Estim Creat Clear Calc 26.7 Estimated GFR 16 POC Glucose 115 192 H Random Glucose 117 H Calcium 9.5 10/29/21 10/29/21 06:59 11:16 Sodium Potassium Chloride Carbon Dioxide Anion Gap BUN Creatinine Estim Creat Clear Calc Estimated GFR POC Glucose 110 202 H Random Glucose Calcium Discharge Plan Discharge Patient Disposition: Home, Self-Care Discharge Diagnosis: Fluid overload Acute on chronic kidney disease Referrals: Segundo Tapia MD [Primary Care Provider] - 1 Week Discharge Medications: New metolazone 5 mg Tablet 5 mg PO DAILY Qty: 30 3RF Continued levothyroxine 75 mcg Tablet 75 mcg PO DAILY 0RF spironolactone 25 mg Tablet 25 mg PO DAILY Qty: 30 0RF Protocol: Hold for SBP< HOLD for SBP < : 90 torsemide 100 mg tablet 100 mg PO DAILY Qty: 30 0RF atorvastatin 40 mg tablet 1 tab PO DAILY 0RF amlodipine 5 mg tablet 1 tab PO DAILY 0RF metformin 500 mg tablet extended release 24 hr 2 tab PO BID 0RF lisinopril 2.5 mg tablet 1 tab PO DAILY 0RF Januvia 100 mg tablet 1 tab PO DAILY 0RF Changed glipizide 10 mg tablet extended release 24hr 1 tab PO DAILY Qty: 0 0RF Discontinued metolazone 2.5 mg tablet 1 tab PO DAILY 0RF Discharge Orders: Discharge Order (Routine); Ordered 10/29/21 Ordered By: Ileana Leach Diet: advance to usual diet and low salt diet Activity on Discharge: As tolerated Stand Alone Forms: Patient Portal Discharge page Other Ambulatory Orders: Basic Metabolic Panel (Routine) Timeframe: 1 Week Facility: [facility] - Location: Laboratory Ordered By: Ileana Leach Care Plan Goals: Read below Health Concerns: Read below Plan of Treatment: Read below Assessment: You were admitted to the hospital for treatment of fluid overload. Evaluated by java front end web developer and treated by IV Lasix with good response over the course of hospital stay as your kidneys were noted to be worse than your baseline that stabilized before the discharge. Restrict your fluid intake to 1 L a day Increase metolazone to 5 mg daily Continue torsemide 100 mg daily Monitor your weight at home and report any changes to your java front end web developer or PCP To repeat blood work next week Decrease glipizide to 1 tablet once daily instead of 2 times to avoid low blood sugars readings.
--- NOTE | 2021-10-29 13:11 | MHC.CM.PN ---
Patient has been medically cleared for dc to home today, self care. Patient will dc today at 2:30 PM, via [facility] shuttle. IMM addressed with Patient and original has been given to him and a copy has been placed on the chart.
== END 2021-10-29 14:30 | disposition home or self-care (01) | DRG 683 ==
LOC: HO.ED 14:28 → HO.EDOVER 15:31 → HO.S3 10-25 05:57
PROVIDERS: Nurse Practitioner Family; Admitting Provider Student in an Organized Health Care Education/Training Program; Emergency Provider Emergency Medicine; PCP Internal Medicine; Visit Provider Student in an Organized Health Care Education/Training Program
DX: I12.9 Hypertensive chronic kidney disease with stage 1 through stage 4 chronic kidney disease, or unspecified chronic kidney disease (principal); N17.9 Acute kidney failure, unspecified; E87.70 Fluid overload, unspecified; E03.9 Hypothyroidism, unspecified; E78.5 Hyperlipidemia, unspecified; E11.22 Type 2 diabetes mellitus with diabetic chronic kidney disease; E11.649 Type 2 diabetes mellitus with hypoglycemia without coma; N18.30 Chronic kidney disease, stage 3 unspecified; Z20.822 Contact with and (suspected) exposure to COVID-19; Z79.84 Long term (current) use of oral hypoglycemic drugs; Z79.899 Other long term (current) drug therapy
CPT/HCPCS: 36415; 71046; 76775; 80048; 80076; 82947; 83520; 83735; 83880; 84484; 85025; 85027; 86255; 87635; 93005; 96374; 99285; J1940

== ENCOUNTER 2021-11-05 09:37 | Outpatient (REF) | payer MEDICARE, MEDICAID, SELFPAY ==
[2021-11-05 10:31] LABS: MANUAL DIFF FLAG NO
[2021-11-05 10:35] LABS: Basophils Absolute Auto 0.1 X10*3/uL (0.0-0.2); Basophils Percent Auto 1.1 % (0-2); Eosinophils Absolute Auto 0.4 X10*3/uL (0.0-0.4); Eosinophils Percent Auto 4.1 % (0-4); Hematocrit 39.9 % (42.0-52.0); Hemoglobin 13.6 g/dl (14.0-18.0); Imm Gran Abs Auto 0.23 X10*3/uL (0.00-0.03); Imm Gran Pct Auto 2.6 % (0.0-0.4); Lymphocytes Absolute Auto 1.7 X10*3/uL (1.2-4.9); Lymphocytes Percent Auto 19.1 % (20-40); Mean Corpuscular HGB Conc 34.1 g/dl (31.0-36.0); Mean Corpuscular Hemoglobin 31.9 pg (27.0-33.0); Mean Corpuscular Volume 93.7 fL (80.0-98.0); Mean Platelet Volume 10.2 fL (9.4-12.4); Monocytes Absolute Auto 0.7 X10*3/uL (0.1-1.2); Monocytes Percent Auto 7.8 % (2-11); Neutrophils Absolute Auto 5.8 x10*3/uL (2.0-8.3); Neutrophils Percent Auto 65.3 % (45-73); Platelet Count 463 X10*3/uL (160-400); Red Blood Count 4.26 X10*6/uL (4.60-5.80); Red Cell Distribution Width 13.5 % (11.0-16.0); White Blood Count 8.9 X10*3/uL (4.8-10.8)
[2021-11-05 10:54] LABS: Estimated Average Glucose 131 mg/dL; Hemoglobin A1c % 6.2 %
[2021-11-05 11:08] LABS: Alanine Aminotransferase 18 U/L (0-40); Albumin Level 2.1 g/dL (3.5-5.0); Alkaline Phosphatase 58 U/L (39-117); Anion Gap 13 (12-20); Aspartate Amino Transferase 20 U/L (5-37); Bilirubin Total < 0.2 mg/dL (0.0-1.0); Blood Urea Nitrogen 40 mg/dL (9-16); Calcium 10.3 mg/dL (8.4-10.2); Carbon Dioxide 23 mmol/L (22-29); Chloride 105 mmol/L (96-108); Estimated Glomerular Filt Rate 16; Glucose Random 130 mg/dL (60-115); Iron 92 mcg/dL (45-160); Magnesium 1.8 mg/dL (1.6-2.6); Percent Iron Saturation 46 % (15-50); Phosphorus 6.3 mg/dL (2.7-4.5); Potassium 4.1 mmol/L (3.3-5.1); Sodium 137 mmol/L (135-145); Total Iron Binding Capacity 198 mcg/dL (228-428); Total Protein 4.9 g/dL (6.5-8.0); Unsaturated Iron Binding 106 ug/dL
[2021-11-05 11:30] LABS: Free T4 (Free Thyroxine) 0.77 ng/dL (0.71-1.85); Thyroid Stimulating Hormone 2.66 uIU/mL (0.32-4.0)
== END 2021-11-05 09:38 | disposition home or self-care (01) ==
LOC: HO.10HDL 09:37
PROVIDERS: Student in an Organized Health Care Education/Training Program; PCP Internal Medicine; Visit Provider Internal Medicine
DX: E11.22 Type 2 diabetes mellitus with diabetic chronic kidney disease (principal); N18.9 Chronic kidney disease, unspecified; D63.1 Anemia in chronic kidney disease; N17.9 Acute kidney failure, unspecified; E03.9 Hypothyroidism, unspecified
CPT/HCPCS: 36415; 80048; 80053; 83036; 83540; 83735; 84100; 84439; 84443; 85025

== ENCOUNTER 2021-11-26 09:41 | Outpatient (REF) | payer MEDICARE, MEDICAID, SELFPAY ==
[2021-11-26 11:20] LABS: Anion Gap 12 (12-20); Blood Urea Nitrogen 38 mg/dL (9-16); Calcium 9.4 mg/dL (8.4-10.2); Carbon Dioxide 21 mmol/L (22-29); Chloride 109 mmol/L (96-108); Estimated Glomerular Filt Rate 14; Glucose Random 82 mg/dL (60-115); Potassium 3.2 mmol/L (3.3-5.1); Sodium 139 mmol/L (135-145)
== END 2021-11-26 09:42 | disposition home or self-care (01) ==
LOC: HO.10HDL 09:41
PROVIDERS: Visit Provider Internal Medicine
DX: N18.9 Chronic kidney disease, unspecified (principal)
CPT/HCPCS: 36415; 80048

== ENCOUNTER 2021-12-29 10:05 | Inpatient (IN) | payer MEDICARE, MEDICAID, SELFPAY ==
[2021-12-29] VITALS (8 sets, daily range): BP systolic 119–158; BP diastolic 62–90; PULSE 66–88; RESP 14–20; TEMP 36.6; O2SAT 99–100; BMI 39.3
--- NOTE | ~2021-12-29 | XR_ITS ---
EXAMINATION: XR CHEST CLINICAL INFORMATION: Dizziness COMPARISON: Previous chest x-ray most recent October 2021 TECHNIQUE: Frontal view of the chest was obtained. FINDINGS: The cardiac and mediastinal contours are stable. The lungs are clear. There may be a small left pleural effusion. This is decreased from October 2021 exam. There is no right pleural effusion. There is no pneumothorax. Any structures are unremarkable. XR/XR chest 1V IMPRESSION: Question small left pleural effusion decreased from October 2021 exam. Otherwise unremarkable exam.
--- NOTE | 2021-12-29 10:27 | ECG_ITS ---
Test Reason : DIZZINESS Blood Pressure : / mmHG Vent. Rate : 079 BPM Atrial Rate : 079 BPM P-R Int : 180 ms QRS Dur : 096 ms QT Int : 398 ms P-R-T Axes : 036 005 014 degrees QTc Int : 456 ms Normal sinus rhythm Nonspecific ST abnormality Abnormal ECG When compared with ECG of 24-OCT-2021 11:52, No significant change was found Referred By: Mary Goodwin Electronically Signed By:Chris Messer
--- NOTE | 2021-12-29 10:33 | ED.DIZZY ---
HPI - Dizziness General Chief Complaint: Dizziness Stated Complaint: FLUID RETENTION LEGS,DIZZINESS Time Seen by Provider: 12/29/21 10:26 Source: patient and EMS Mode of arrival: EMS Limitations: no limitations History of Present Illness HPI Narrative: 66 years old male with past medical history significant for DM, nephrotic syndrome patient came in for evaluation of feeling dizzy, and gait about 30 lb over the past 2 weeks, severe edema in the legs and abdomen and scrotum. Patient is known to have chronic renal insufficiency never needed dialysis in the past. Patient decline SOB no PND. Patient reports that he makes urine. Patient is diabetic on metformin and glipizid, metformin was discontinued because kidney condition patient is not sure if he is still taking glipizide, patient found to have low BS able to tolerate p.o. intake. Related Data Home Medications Medication Instructions Recorded Confirmed levothyroxine 75 mcg tablet 75 mcg PO DAILY 06/27/20 12/29/21 amlodipine 5 mg tablet 1 tab PO DAILY 10/24/21 12/29/21 atorvastatin 40 mg tablet 1 tab PO DAILY 10/24/21 12/29/21 lisinopril 2.5 mg tablet 1 tab PO DAILY 10/24/21 12/29/21 sitagliptin 100 mg tablet (Januvia) 1 tab PO DAILY 10/24/21 12/29/21 Previous Rx's Medication Instructions Recorded torsemide 100 mg tablet 100 mg PO DAILY #30 tabs 07/31/20 glipizide 10 mg tablet, extended 1 tab PO DAILY #0 tabs 10/29/21 release 24 hr Allergies Allergy/AdvReac Type Severity Reaction Status Date / Time Penicillins Allergy Unknown UNKWN Verified 04/23/20 13:49 Review of Systems Review of Systems: All other systems are reviewed and are negative Constitutional: Reports as per HPI and Reports no additional constitutional complaints Eyes: Reports as per HPI and Reports no additional eye complaints Reports system reviewed and no additional complaints, except as documented Cardiovascular: Reports as per HPI and Reports no additional cardiovascular complaints Respiratory: Reports as per HPI and Reports no additional respiratory complaints Gastrointestinal: Reports as per HPI and Reports no additional gastrointestinal complaints Genitourinary: Reports no additional female genitourinary complaints Musculoskeletal: Reports no additional musculoskeletal complaints Skin/Breast: Reports system reviewed and no additional complaints, except as docu Psychiatric: Reports no additional psychiatric complaints Endocrine: Reports no additional endocrine complaints Hematologic/Lymphatic: Reports no additional hematologic/lymphatic complaints Allergic/Immunologic: Reports no additional allergic/immunologic complaints Reports system reviewed and no additional complaints, except as documented and Reports Abnormal speech present [facility] Past Medical History Medical History CHF (congestive heart failure), NYHA class I CKD (chronic kidney disease) stage 3, GFR 30-59 ml/min Congestive heart failure Diabetes 1.5, managed as type 2 Diverticulosis Hiatal hernia History of small bowel obstruction Hyperlipidemia Hypertension Hypothyroidism Nephrotic syndrome Family History Family History Father No problems noted. Social History Social History Household Members: None Housing: Apartment Do you presently have visiting nurse or other home services: Yes Alcohol intake: unknown Patient Tobacco Use Status: Never used Tobacco Second Hand Smoke Exposure: No Use of substances other than those prescribed or required for medical reasons: No Advance Directives: No Advance Directives Information Provided: No Advance Directives Date on File: 05/01/20 service: No Current occupational status: unemployed and disabled Physical Exam Vital Signs: Vital Signs: Last Vital Signs Temp 97.8 F 12/29/21 10:13 Pulse 66 12/29/21 10:13 Resp 20 12/29/21 10:13 BP 119/90 H 12/29/21 10:13 Pulse Ox 99 12/29/21 10:13 O2 Del Method 12/29/21 10:13 BMI result Body Mass Index 39.3 Vital signs have been reviewed as appeared to be correct. Blood pressure normal. Heart rate normal. Respiration rate normal. Temperature normal. Oxygen saturation normal. Appearance: Alert. Oriented X3. No acute distress. Head: Normal external exam. Normocephalic. Atraumatic. No Simmons signs noted. No raccoon eyes noted Eyes: PERRLA. EOMI. Conjunctiva and sclera normal. Eyelids normal. ENT: TM's Normal. Pharynx normal. Uvula midline. Moist mucous membranes. No trismus noted. No drooling noted. No muffled voice noted. Neck: Normal inspection. Neck supple. FROM. No adenopathy. Thyroid Normal. No meningeal signs. No neck mass noted. CVS: Normal heart rate and rhythm. Heart sound normal. No murmurs noted. Pulses normal throughout. Respiratory: No respiratory distress. Painless inspiration. Breath sounds normal. No wheezes/rales/rhonchi noted. Chest nontender. No accessory muscle usage noted or decreased air movement noted. Abdomen: Soft and nontender. Bowel sounds normal in all 4 quadrants. No distention noted. No organomegaly noted. No visible injury noted. Back: No CVA tenderness. Full range of motion noted. Skin: Skin warm and dry. Normal skin color. Normal skin turgor. No rashes/lesions/lacerations noted. Extremities: +4 lower extremity edema. Extremities exhibit normal range of motion. Extremities nontender. Neuro: Oriented X 3. Cranial nerve exam: II-XII are grossly intact No motor deficit. No sensory deficit. Reflexes normal. Course Course Course Narrative: 66-year-old male came in with diffuse anasarca, patient with acute on chronic renal failure no shortness of breath, no PND. Will consult Dr. Forte. Hypokalemia will replete potassium. Persistent hypoglycemia patient is on glipizide will closely monitor BS. MDM - Dizziness Lab Data Attestation: I reviewed the patient's lab results. Result diagrams: 12/29/21 10:40 12/29/21 10:40 Labs: Lab Results 12/29/21 12/29/21 12/29/21 Range/Units 10:20 10:38 10:40 WBC 8.1 (4.8-10.8) X10*3/uL RBC 3.59 L (4.60-5.80) X10*6/uL Hgb 11.7 L (14.0-18.0) g/dl Hct 33.4 L (42.0-52.0) % MCV 93.0 (80.0-98.0) fL MCH 32.6 (27.0-33.0) pg MCHC 35.0 (31.0-36.0) g/dl RDW 14.4 (11.0-16.0) % Plt Count 394 (160-400) X10*3/uL MPV 9.2 L (9.4-12.4) fL Immature Gran % (Auto) 0.6 H (0.0-0.4) % Neut % (Auto) 76.4 H (45-73) % Lymph % (Auto) 13.9 L (20-40) % [place] % (Auto) 5.8 (2-11) % Eos % (Auto) 2.2 (0-4) % Baso % (Auto) 1.1 (0-2) % Lymph # (Auto) 1.1 L (1.2-4.9) X10*3/uL [place] # (Auto) 0.5 (0.1-1.2) X10*3/uL Eos # (Auto) 0.2 (0.0-0.4) X10*3/uL Baso # (Auto) 0.1 (0.0-0.2) X10*3/uL Abs Immat Gran (auto) 0.05 H (0.00-0.03) X10*3/uL Absolute Neuts (auto) 6.2 (2.0-8.3) x10*3/uL Absolute Nucleated RBC 0.000 (0.0-0.012) X10*3/uL Nucleated RBC % (auto) 0.0 (0.0-0.2) /100WBC Sodium (135-145) mmol/L Potassium (3.3-5.1) mmol/L Chloride (96-108) mmol/L Carbon Dioxide (22-29) mmol/L Anion Gap (12-20) BUN (9-16) mg/dL Creatinine (0.5-1.4) mg/dL Estim Creat Clear Calc Estimated GFR POC Glucose 44 L* (60-115) mg/dL Random Glucose (60-115) mg/dL Calcium (8.4-10.2) mg/dL Magnesium (1.6-2.6) mg/dL Total Bilirubin (0.0-1.0) mg/dL Direct Bilirubin (0.0-0.5) mg/dL AST (5-37) U/L ALT (0-40) U/L Alkaline Phosphatase (39-117) U/L Troponin I High Sens (<3.5-35.0) ng/L B-Natriuretic Peptide (<100) pg/mL Total Protein (6.5-8.0) g/dL Albumin (3.5-5.0) g/dL Lipase (8-78) U/L Influenza Type A (PCR) NEGATIVE (Negative) Influenza Type B (PCR) NEGATIVE (Negative) RSV RNA Qual (PCR) NEGATIVE (Negative) SARS-CoV-2 RNA (RT-PCR) NEGATIVE (Negative) 12/29/21 12/29/21 12/29/21 Range/Units 10:40 10:40 10:44 WBC (4.8-10.8) X10*3/uL RBC (4.60-5.80) X10*6/uL Hgb (14.0-18.0) g/dl Hct (42.0-52.0) % MCV (80.0-98.0) fL MCH (27.0-33.0) pg MCHC (31.0-36.0) g/dl RDW (11.0-16.0) % Plt Count (160-400) X10*3/uL MPV (9.4-12.4) fL Immature Gran % (Auto) (0.0-0.4) % Neut % (Auto) (45-73) % Lymph % (Auto) (20-40) % [place] % (Auto) (2-11) % Eos % (Auto) (0-4) % Baso % (Auto) (0-2) % Lymph # (Auto) (1.2-4.9) X10*3/uL [place] # (Auto) (0.1-1.2) X10*3/uL Eos # (Auto) (0.0-0.4) X10*3/uL Baso # (Auto) (0.0-0.2) X10*3/uL Abs Immat Gran (auto) (0.00-0.03) X10*3/uL Absolute Neuts (auto) (2.0-8.3) x10*3/uL Absolute Nucleated RBC (0.0-0.012) X10*3/uL Nucleated RBC % (auto) (0.0-0.2) /100WBC Sodium 138 (135-145) mmol/L Potassium 2.9 L (3.3-5.1) mmol/L Chloride 109 H (96-108) mmol/L Carbon Dioxide 20 L (22-29) mmol/L Anion Gap 12 (12-20) BUN 32 H (9-16) mg/dL Creatinine 4.19 H* (0.5-1.4) mg/dL Estim Creat Clear Calc 23.6 Estimated GFR 14 POC Glucose 54 L* (60-115) mg/dL Random Glucose 73 (60-115) mg/dL Calcium 8.6 D (8.4-10.2) mg/dL Magnesium 2.1 (1.6-2.6) mg/dL Total Bilirubin 0.2 (0.0-1.0) mg/dL Direct Bilirubin < 0.2 (0.0-0.5) mg/dL AST 23 (5-37) U/L ALT 15 (0-40) U/L Alkaline Phosphatase 56 (39-117) U/L Troponin I High Sens 147.0 H* D (<3.5-35.0) ng/L B-Natriuretic Peptide 37 (<100) pg/mL Total Protein 4.6 L (6.5-8.0) g/dL Albumin 2.0 L (3.5-5.0) g/dL Lipase 32 (8-78) U/L Influenza Type A (PCR) (Negative) Influenza Type B (PCR) (Negative) RSV RNA Qual (PCR) (Negative) SARS-CoV-2 RNA (RT-PCR) (Negative) 12/29/21 12/29/21 Range/Units 11:07 11:37 WBC (4.8-10.8) X10*3/uL RBC (4.60-5.80) X10*6/uL Hgb (14.0-18.0) g/dl Hct (42.0-52.0) % MCV (80.0-98.0) fL MCH (27.0-33.0) pg MCHC (31.0-36.0) g/dl RDW (11.0-16.0) % Plt Count (160-400) X10*3/uL MPV (9.4-12.4) fL Immature Gran % (Auto) (0.0-0.4) % Neut % (Auto) (45-73) % Lymph % (Auto) (20-40) % [place] % (Auto) (2-11) % Eos % (Auto) (0-4) % Baso % (Auto) (0-2) % Lymph # (Auto) (1.2-4.9) X10*3/uL [place] # (Auto) (0.1-1.2) X10*3/uL Eos # (Auto) (0.0-0.4) X10*3/uL Baso # (Auto) (0.0-0.2) X10*3/uL Abs Immat Gran (auto) (0.00-0.03) X10*3/uL Absolute Neuts (auto) (2.0-8.3) x10*3/uL Absolute Nucleated RBC (0.0-0.012) X10*3/uL Nucleated RBC % (auto) (0.0-0.2) /100WBC Sodium (135-145) mmol/L Potassium (3.3-5.1) mmol/L Chloride (96-108) mmol/L Carbon Dioxide (22-29) mmol/L Anion Gap (12-20) BUN (9-16) mg/dL Creatinine (0.5-1.4) mg/dL Estim Creat Clear Calc Estimated GFR POC Glucose 56 L* 59 L* (60-115) mg/dL Random Glucose (60-115) mg/dL Calcium (8.4-10.2) mg/dL Magnesium (1.6-2.6) mg/dL Total Bilirubin (0.0-1.0) mg/dL Direct Bilirubin (0.0-0.5) mg/dL AST (5-37) U/L ALT (0-40) U/L Alkaline Phosphatase (39-117) U/L Troponin I High Sens (<3.5-35.0) ng/L B-Natriuretic Peptide (<100) pg/mL Total Protein (6.5-8.0) g/dL Albumin (3.5-5.0) g/dL Lipase (8-78) U/L Influenza Type A (PCR) (Negative) Influenza Type B (PCR) (Negative) RSV RNA Qual (PCR) (Negative) SARS-CoV-2 RNA (RT-PCR) (Negative) Imaging Data Chest x-ray: Attestation: I personally reviewed and interpreted this imaging study as follows: Radiologist's impression: Question small left pleural effusion decreased from October 2021 exam. Otherwise unremarkable exam. ? ECG Data Attestation: I personally reviewed and interpreted this ECG as follows: Interpretation: Normal sinus rhythm at 79 beats per minutes, left axis deviation, normal intervals, no significant change from previous EKG. Discharge Plan Discharge Clinical Impression: Acute on chronic renal failure, Anasarca associated with disorder of kidney, Acute hypokalemia, Hypoglycemia secondary to sulfonylurea Patient Disposition: Admitted As Inpatient Prescriptions: No Action levothyroxine 75 mcg Tablet 75 mcg PO DAILY torsemide 100 mg tablet 100 mg PO DAILY Qty: 30 0RF atorvastatin 40 mg tablet 1 tab PO DAILY amlodipine 5 mg tablet 1 tab PO DAILY lisinopril 2.5 mg tablet 1 tab PO DAILY Januvia 100 mg tablet 1 tab PO DAILY glipizide 10 mg tablet extended release 24hr 1 tab PO DAILY Qty: 0 0RF
[2021-12-29] MEDS: Furosemide 40 MG/4 ML VIAL IVPUSH (10:40)
[2021-12-29 10:43] LABS: Glucose, Whole Blood 44 mg/dL (60-115)
[2021-12-29 10:45] LABS: MANUAL DIFF FLAG NO
[2021-12-29 10:46] LABS: Basophils Absolute Auto 0.1 X10*3/uL (0.0-0.2); Basophils Percent Auto 1.1 % (0-2); Eosinophils Absolute Auto 0.2 X10*3/uL (0.0-0.4); Eosinophils Percent Auto 2.2 % (0-4); Hematocrit 33.4 % (42.0-52.0); Hemoglobin 11.7 g/dl (14.0-18.0); Imm Gran Abs Auto 0.05 X10*3/uL (0.00-0.03); Imm Gran Pct Auto 0.6 % (0.0-0.4); Lymphocytes Absolute Auto 1.1 X10*3/uL (1.2-4.9); Lymphocytes Percent Auto 13.9 % (20-40); Mean Corpuscular Hemoglobin 32.6 pg (27.0-33.0); Mean Platelet Volume 9.2 fL (9.4-12.4); Monocytes Absolute Auto 0.5 X10*3/uL (0.1-1.2); Monocytes Percent Auto 5.8 % (2-11); Neutrophils Absolute Auto 6.2 x10*3/uL (2.0-8.3); Neutrophils Percent Auto 76.4 % (45-73); Platelet Count 394 X10*3/uL (160-400); Red Blood Count 3.59 X10*6/uL (4.60-5.80); Red Cell Distribution Width 14.4 % (11.0-16.0); White Blood Count 8.1 X10*3/uL (4.8-10.8)
[2021-12-29 10:48] LABS: Glucose, Whole Blood 54 mg/dL (60-115)
[2021-12-29 11:10] LABS: Alanine Aminotransferase 15 U/L (0-40); Alkaline Phosphatase 56 U/L (39-117); Anion Gap 12 (12-20); Aspartate Amino Transferase 23 U/L (5-37); Bilirubin Direct < 0.2 mg/dL (0.0-0.5); Bilirubin Total 0.2 mg/dL (0.0-1.0); Blood Urea Nitrogen 32 mg/dL (9-16); Calcium 8.6 mg/dL (8.4-10.2); Carbon Dioxide 20 mmol/L (22-29); Chloride 109 mmol/L (96-108); Creatinine Clr Calc Pharmacy 23.6; Estimated Glomerular Filt Rate 14; Glucose Random 73 mg/dL (60-115); Lipase 32 U/L (8-78); Potassium 2.9 mmol/L (3.3-5.1); Sodium 138 mmol/L (135-145); Total Protein 4.6 g/dL (6.5-8.0)
[2021-12-29 11:10] LABS: Glucose, Whole Blood 56 mg/dL (60-115)
[2021-12-29 11:14] LABS: B Type Natriuretic Peptide 37 pg/mL (<100)
[2021-12-29 11:29] LABS: Influenza A PCR NEGATIVE (Negative); Influenza B PCR NEGATIVE (Negative); Resp Syncy Virus RNA Qual PCR NEGATIVE (Negative); SARS COV2 PCR INHOUSE NEGATIVE (Negative)
[2021-12-29] MEDS: Potassium Chloride/H20 10 MEQ/100 ML PIGGYBACK 100 MEQ IV (11:30)
[2021-12-29] MEDS: Potassium Chloride Packet 20 MEQ PACKET 40 MEQ PO (11:30)
[2021-12-29 11:41] LABS: Glucose, Whole Blood 59 mg/dL (60-115)
[2021-12-29 11:59] LABS: Magnesium 2.1 mg/dL (1.6-2.6)
--- NOTE | 2021-12-29 14:58 | PM.IMHP ---
History of Present Illness Date of Service: 12/29/21 Chief Complaint: swelling with weight gain 66 years old male with past medical history significant for DM, nephrotic syndrome patient came in for evaluation of feeling dizzy, and gait about 30 lb over the past 2 weeks, severe edema in the legs and abdomen and scrotum.? Patient is known to have chronic renal insufficiency never needed dialysis in the past. patient carries diagnosis of primary membranous nephropathy and has followed with Dr. Ribeiro in the past. Review of Systems Review of Systems: Denies chest pain Denies shortness of breath Denies nausea vomiting diarrhea Denies fever chills [facility] Medical History (Updated 12/29/21 @ 15:04 by Brian Willson DO) CHF (congestive heart failure), NYHA class I CKD (chronic kidney disease) stage 3, GFR 30-59 ml/min Congestive heart failure Diabetes 1.5, managed as type 2 Diverticulosis Hiatal hernia History of small bowel obstruction Hyperlipidemia Hypertension Hypothyroidism Nephrotic syndrome Family History Father No problems noted. Social History Household Members: None Housing: Apartment Do you presently have visiting nurse or other home services: Yes Alcohol intake: unknown Patient Tobacco Use Status: Never used Tobacco Second Hand Smoke Exposure: No Use of substances other than those prescribed or required for medical reasons: No Advance Directives: No Advance Directives Information Provided: No Advance Directives Date on File: 05/01/20 service: No Current occupational status: unemployed and disabled Meds Allergies Allergy/AdvReac Type Severity Reaction Status Date / Time Penicillins Allergy Unknown UNKWN Verified 04/23/20 13:49 Active Medications: Current Medications Acetaminophen (Acetaminophen 325 Mg Tablet) 650 mg PO Q6H PRN PRN Reason: Pain, Mild (Pain Scale 1-3) Amlodipine Besylate (Amlodipine Besylate 5 Mg Tablet) 5 mg PO DAILY ROSALIA; Protocol Atorvastatin Calcium (Atorvastatin Calcium 40 Mg Tablet) 40 mg PO DAILY ROSALIA Furosemide (Furosemide 100 Mg/10 Ml Vial) 40 mg IVPUSH Q6H ROSALIA; Protocol Heparin Sodium (Porcine) (Heparin Sodium,Porcine 5,000 Unit/Ml Vial) 5,000 unit SUBCUT Q12H ROSALIA Levothyroxine Sodium (Levothyroxine Sodium 75 Mcg Tablet) 75 mcg PO DAILY@0600 [facility] Ondansetron HCl (Ondansetron Hcl 4 Mg/2 Ml Vial) 4 mg IVPUSH Q8H PRN PRN Reason: Nausea and Vomiting Pharmacy Consult (Consult Rx Perform Med Rec) 1 each MISCELLANE ONCE PRN PRN Reason: Consult order Sodium Chloride (0.9 % Sodium Chloride Flush 3 Ml Syringe) 3 ml IVFLUSH QSHIFT [facility] Home Medications Medication Instructions Recorded Confirmed Last Taken Type levothyroxine 75 mcg tablet 75 mcg PO DAILY 06/27/20 12/29/21 12/28/21 History amlodipine 5 mg tablet 1 tab PO DAILY 10/24/21 12/29/21 12/28/21 History atorvastatin 40 mg tablet 1 tab PO DAILY 10/24/21 12/29/21 12/28/21 History lisinopril 2.5 mg tablet 1 tab PO DAILY 10/24/21 12/29/21 12/28/21 History sitagliptin 100 mg tablet (Januvia) 1 tab PO DAILY 10/24/21 12/29/21 12/28/21 History Physical Exam Vital Signs and Narrative: Vital Signs: Last Vital Signs Temp 97.8 F 12/29/21 10:13 Pulse 66 12/29/21 10:13 Resp 20 12/29/21 10:13 BP 119/90 H 12/29/21 10:13 Pulse Ox 99 12/29/21 10:13 O2 Del Method 12/29/21 10:13 BMI result Body Mass Index 39.3 Const: Other: no acute distress Resp: Other: clear to auscultation bilaterally no rales rhonchi or wheezes Cardio: Other: no S4; positive S1-S2; no S3 2/6 systolic murmur best heard at the apex GI: Other: mildly edematous quiet bowel sounds : Other: mild scrotal edema Extrem: Other: pitting edema bilaterally Results Labs CBC and Chem 7: 12/29/21 10:40 12/29/21 10:40 Labs: Laboratory Results - last 24 hr 12/29/21 12/29/21 12/29/21 10:20 10:38 10:40 MCV 93.0 MCH 32.6 MCHC 35.0 RDW 14.4 Plt Count 394 MPV 9.2 L Immature Gran % (Auto) 0.6 H Neut % (Auto) 76.4 H Lymph % (Auto) 13.9 L Isabella % (Auto) 5.8 Eos % (Auto) 2.2 Baso % (Auto) 1.1 Lymph # (Auto) 1.1 L Isabella # (Auto) 0.5 Eos # (Auto) 0.2 Baso # (Auto) 0.1 Abs Immat Gran (auto) 0.05 H Absolute Neuts (auto) 6.2 Absolute Nucleated RBC 0.000 Nucleated RBC % (auto) 0.0 Anion Gap Estim Creat Clear Calc Estimated GFR POC Glucose 44 L* Random Glucose Calcium Magnesium Total Bilirubin Direct Bilirubin AST ALT Alkaline Phosphatase Troponin I High Sens B-Natriuretic Peptide Total Protein Albumin Lipase Influenza Type A (PCR) NEGATIVE Influenza Type B (PCR) NEGATIVE RSV RNA Qual (PCR) NEGATIVE SARS-CoV-2 RNA (RT-PCR) NEGATIVE 12/29/21 12/29/21 12/29/21 10:40 10:40 10:44 MCV MCH MCHC RDW Plt Count MPV Immature Gran % (Auto) Neut % (Auto) Lymph % (Auto) Isabella % (Auto) Eos % (Auto) Baso % (Auto) Lymph # (Auto) Isabella # (Auto) Eos # (Auto) Baso # (Auto) Abs Immat Gran (auto) Absolute Neuts (auto) Absolute Nucleated RBC Nucleated RBC % (auto) Anion Gap 12 Estim Creat Clear Calc 23.6 Estimated GFR 14 POC Glucose 54 L* Random Glucose 73 Calcium 8.6 D Magnesium 2.1 Total Bilirubin 0.2 Direct Bilirubin < 0.2 AST 23 ALT 15 Alkaline Phosphatase 56 Troponin I High Sens 147.0 H* D B-Natriuretic Peptide 37 Total Protein 4.6 L Albumin 2.0 L Lipase 32 Influenza Type A (PCR) Influenza Type B (PCR) RSV RNA Qual (PCR) SARS-CoV-2 RNA (RT-PCR) 12/29/21 12/29/21 11:07 11:37 MCV MCH MCHC RDW Plt Count MPV Immature Gran % (Auto) Neut % (Auto) Lymph % (Auto) Isabella % (Auto) Eos % (Auto) Baso % (Auto) Lymph # (Auto) Isabella # (Auto) Eos # (Auto) Baso # (Auto) Abs Immat Gran (auto) Absolute Neuts (auto) Absolute Nucleated RBC Nucleated RBC % (auto) Anion Gap Estim Creat Clear Calc Estimated GFR POC Glucose 56 L* 59 L* Random Glucose Calcium Magnesium Total Bilirubin Direct Bilirubin AST ALT Alkaline Phosphatase Troponin I High Sens B-Natriuretic Peptide Total Protein Albumin Lipase Influenza Type A (PCR) Influenza Type B (PCR) RSV RNA Qual (PCR) SARS-CoV-2 RNA (RT-PCR) Imaging Radiologist's Impressions: Impressions Chest X-Ray 12/29/21 11:23 IMPRESSION: Question small left pleural effusion decreased from October 2021 exam. Otherwise unremarkable exam. Assessment and Plan (1) Acute on chronic renal failure: Status: Acute (2) Anasarca associated with disorder of kidney: Status: Acute (3) Hypoglycemia secondary to sulfonylurea: Status: Acute (4) Hypertension: Status: Acute Plan 66 year old male with a history of primary membranous nephropathy presents with overall body swelling and weight gain of 30 lb over the last 2 weeks. He has been taking Aldactone and Torsemide faithfully per his account. In the emergency room, workup consistent with hypokalemia with potassium 2.9 which was repleted along with a creatinine of 4.1 night when somewhat improved over the last month. BNP is 37. Also noted to have troponin 147 in the absence of chest pain 1.Anasarca/ acute on chronic renal failure -admit to telemetry -follow renals/divalents - aggressive diuresis with Lasix 40IV q.6 hours - Renal consult 2. Elevated troponin (in backdrop of renal failure) - serial troponins - cardiology consult -echo to qualify murmur 3.Hypoglycemia(r/t sulfonylureas) -hold all agents -lispro correctional scale...adjust as indicated 4.HTN -continue ACEI...increase as tolerated -follow renals/divalents Full Code Heparin Will require at least 2 midnights going forward for IV diuresis to treat anasarca. This cannot be achieved in the lesser acute setting Quality Stroke Does the patient have a stroke diagnosis?: No VTE Prior VTE?: No VTE Risk Level:: Medical - moderate - high VTE Device Contraindication: Treatment Not Indicated VTE Drug Contraindication: N/A - Med Ordered
[2021-12-29] MEDS: Furosemide 100 MG/10 ML VIAL 40 MG IVPUSH ×2 (15:43→20:52)
[2021-12-29] MEDS: Heparin Sodium,Porcine 5,000 UNIT/ML VIAL 5000 UNIT SUBCUT (15:43)
[2021-12-29] MEDS: 0.9 % Sodium Chloride Flush 3 ML SYRINGE IVFLUSH (15:44)
[2021-12-29] MEDS: lisinopriL 5 MG TABLET PO (15:44)
[2021-12-29 16:43] LABS: Glucose, Whole Blood 91 mg/dL (60-115)
--- NOTE | 2021-12-29 19:25 | PC.NURSE ---
pt eating dinner sitting up, no c/o cp or sob
[2021-12-29 21:33] LABS: Appearance Urine CLEAR; Color Urine YELLOW; Glucose Urine UA 250 MG/DL (NEG); Leukocyte Esterase Urine NEG (NEG); Nitrite Urine NEG (NEG); Specific Gravity - Urine 1.025 (1.005-1.025); UACC Culture Trigger NO; Urine Blood 2+ (NEG); Urine Ketones 5 MG/DL (NEG); Urine Protein 3+ MG/DL (NEG-TRACE)
--- NOTE | 2021-12-29 21:36 | MHC.CM.PN ---
IMM 12/29. No HCP, declines. Pfizer x2/Boosted x1. Lives alone, No DME or services. D/C plan: Home without services. CM had discussion with patient regarding VNA at d/c. Pt states he has had VNA in the past and does not want VNA services. Pt states he will use the [facility] van at discharge. CM following for D/C needs.
[2021-12-29 21:47] LABS: Squamous Epithelial Cell Urine TRACE /LPF
[2021-12-29 21:49] LABS: Granular Casts Urine 0-2 /LPF
[2021-12-29 21:50] LABS: Sperm Urine NOTED; WBC Urine 0-2 /HPF (0-4)
[2021-12-30] MEDS: 0.9 % Sodium Chloride Flush 3 ML SYRINGE IVFLUSH ×3 (00:29→17:33)
[2021-12-30 00:30] VITALS: PULSE 77; RESP 19; O2SAT 96
[2021-12-30 00:37] VITALS: BP 129/63; PULSE 78; RESP 18; O2SAT 97
[2021-12-30] MEDS: Furosemide 100 MG/10 ML VIAL 40 MG IVPUSH ×4 (02:36→19:48)
[2021-12-30] MEDS: Heparin Sodium,Porcine 5,000 UNIT/ML VIAL 5000 UNIT SUBCUT ×2 (02:36→14:09)
[2021-12-30 04:52] LABS: MANUAL DIFF FLAG NO
[2021-12-30 04:54] LABS: Basophils Absolute Auto 0.1 X10*3/uL (0.0-0.2); Basophils Percent Auto 0.8 % (0-2); Eosinophils Absolute Auto 0.3 X10*3/uL (0.0-0.4); Eosinophils Percent Auto 4.4 % (0-4); Hematocrit 31.9 % (42.0-52.0); Hemoglobin 10.8 g/dl (14.0-18.0); Imm Gran Abs Auto 0.06 X10*3/uL (0.00-0.03); Imm Gran Pct Auto 0.8 % (0.0-0.4); Lymphocytes Absolute Auto 1.8 X10*3/uL (1.2-4.9); Lymphocytes Percent Auto 24.6 % (20-40); Mean Corpuscular HGB Conc 33.9 g/dl (31.0-36.0); Mean Corpuscular Hemoglobin 31.7 pg (27.0-33.0); Mean Corpuscular Volume 93.5 fL (80.0-98.0); Mean Platelet Volume 9.3 fL (9.4-12.4); Monocytes Absolute Auto 0.8 X10*3/uL (0.1-1.2); Monocytes Percent Auto 10.1 % (2-11); Neutrophils Absolute Auto 4.4 x10*3/uL (2.0-8.3); Neutrophils Percent Auto 59.3 % (45-73); Platelet Count 359 X10*3/uL (160-400); Red Blood Count 3.41 X10*6/uL (4.60-5.80); Red Cell Distribution Width 14.6 % (11.0-16.0); White Blood Count 7.5 X10*3/uL (4.8-10.8)
[2021-12-30 05:25] LABS: Alanine Aminotransferase 14 U/L (0-40); Albumin Level 1.8 g/dL (3.5-5.0); Alkaline Phosphatase 48 U/L (39-117); Anion Gap 12 (12-20); Aspartate Amino Transferase 24 U/L (5-37); Bilirubin Total < 0.2 mg/dL (0.0-1.0); Blood Urea Nitrogen 34 mg/dL (9-16); Calcium 8.6 mg/dL (8.4-10.2); Carbon Dioxide 19 mmol/L (22-29); Chloride 110 mmol/L (96-108); Creatinine Clr Calc Pharmacy 23.1; Estimated Glomerular Filt Rate 14; Glucose Fasting 74 mg/dL (60-99); Potassium 3.3 mmol/L (3.3-5.1); Sodium 138 mmol/L (135-145); Total Protein 4.2 g/dL (6.5-8.0)
[2021-12-30] MEDS: Levothyroxine Sodium 75 MCG TABLET PO (06:24)
--- NOTE | 2021-12-30 07:00 | CA_ITS ---
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 There is moderately increased left ventricular wall thickness. The visually estimated ejection fraction is between 60-65%. - E/E prime ratio is between 8 and 15 consistent with indeterminate filling pressures. - Normal right ventricular cavity size and systolic function. - There is severe aortic valve stenosis. The peak aortic velocity is 4.07 m/s. The mean gradient is 38 mmHg. The aortic valve area is 0.89 cm2. - Moderate plaque is seen in the sino tubular ridge and ascending aorta. Findings Left Ventricle Normal left ventricular size and systolic function. There is moderately increased left ventricular wall thickness. The visually estimated ejection fraction is between 60-65%. There is no evidence of regional wall motion abnormalities. Abnormal diastolic function is noted. Spectral Doppler is indicative of an impaired relaxation filling pattern. E/E prime ratio is between 8 and 15 consistent with indeterminate filling pressures. Right Ventricle Normal right ventricular cavity size and systolic function. Atria The left atrium is likely dilated. Aortic Valve There is a normal trileaflet aortic valve. There is severe calcification of the aortic valve. There is moderate thickening of the aortic valve. There is severe aortic valve stenosis. The peak aortic velocity is 4.07 m/s. The mean gradient is 38 mmHg. The aortic valve area is 0.89 cm2. There is no aortic valve regurgitation. Mitral Valve There is moderate mitral annular calcification. There is trace mitral valve regurgitation. There is no mitral valve stenosis. Pulmonic Valve The pulmonic valve is likely normal. Tricuspid Valve Likely normal tricuspid valve structure and function. There is trace tricuspid valve regurgitation. Tricuspid regurgitation envelope is inadequate for calculation of right ventricular systolic pressure. Normal right atrial pressure. Great Vessels Moderate plaque is seen in the sino tubular ridge and ascending aorta. The visualized portions of the pulmonary artery and branches are normal. Venous The inferior vena cava is normal in size and collapses greater than 50% with inspiration. Pericardium/Pleural There is no evidence of pericardial effusion. Prior Study Comparison Significant changes compared to prior study dated: 04/25/2020. Severe present. Moderate plaque in the ascending aorta/sinotubular ridge noted. Measurements 2D Linear Measurements IVSd: 1.51 0.6-0.9/0.6-1.0 cm LVIDd: 4.62 3.9-5.3/4.2-5.9 cm LVIDd Index: 1.89 2.4-3.2/2.2-3.1 cm/m2 LVIDs: 2.99 2.0-3.6 cm LVPWd: 1.34 0.7-1.1 cm LA Diam: 4.30 2.7-3.8/3.0-4.0 cm LAIDs Index: 1.76 1.5-2.3 cm/m2 LV Mass: 330.95 67-162/88-224 g LV Mass Index: 135.64 43-95/49-115 g/m2 LVOT Diam: 2.00 3.0+(-)1.3 cm Mitral Valve MV Pk E: 0.78 MV PK A: 0.82 MV Decel Time: 155.00 E/A: 0.90 E'Lateral: 8.16 E'Medial: 6.20 E/E' Med: 12.50 E/E' Lat: 9.50 PHT: 45.00 MVA PHT: 4.89 Decel [place]: 5.01 Aortic Valve AoV Pk Ghulam: 4.07 AoV Mn Ghulam: 2.94 AoV VTI: 0.91 AoV Pk Grad: 66.00 Aov Mn Grad: 38.00 EDDI Cont.VTI: 0.89 LVOT LVOT Pk Ghulam: 1.08 LVOT Mn Ghulam: 0.77 LVOT VTI: 0.26 LVOT Pk Grad: 5.00 LVOT Mn Grad: 3.00 LVOT Diam: 2.00 LVOT Area: 3.14 Diastolic Function MV Pk E: 0.78 MV Pk A: 0.82 E/A: 0.90 E'Medial: 6.20 E/E' Med: 12.50 E' Laterial: 8.16 E/E' Lat: 9.50 Right Ventricle TAPSE (mm): 29.00 TVS' Ghulam: 22.00 Tricuspid Valve TR Pk Ghulam: 1.66 TR Pk Grad: 11.00 Great Vessels Aorta Ao Asc: 3.70 2.1-3.4 cm Updated in Other Vendor System with Status of Final Chris Messer MD electronically signed on 12/30/2021 4:58:53 PM with status of Final
[2021-12-30 07:37] LABS: Glucose, Whole Blood 72 mg/dL (60-115)
[2021-12-30 07:42] VITALS: BP 131/67; PULSE 70; RESP 20; TEMP 36.6
--- NOTE | 2021-12-30 07:50 | HO.PM.IMPN ---
Subjective Subjective Date of Service: 12/30/21 Review of Systems Follow up anasarca feels better, less edema no chest pain or sob Physical Exam Vital Signs: Vital Signs: Last Vital Signs Temp 97.9 F 12/30/21 07:42 Pulse 70 12/30/21 07:42 Resp 20 12/30/21 07:42 BP 131/67 12/30/21 07:42 Pulse Ox 97 12/30/21 00:37 O2 Del Method 12/30/21 07:42 BMI result Body Mass Index 39.3 Appearing in no acute distress lung sounds are clear to auscultation heart regular rate rhythm, clear S1, S2, generalized edema with +2 pitting to LE positive bowel sounds, abdomen is soft, nontender neuro patient is alert x3, no focal deficits Objective Data Active Medications Acetaminophen (Acetaminophen 325 Mg Tablet) 650 mg PO Q6H PRN PRN Reason: Pain, Mild (Pain Scale 1-3) Amlodipine Besylate (Amlodipine Besylate 5 Mg Tablet) 5 mg PO DAILY [facility]; Protocol Atorvastatin Calcium (Atorvastatin Calcium 40 Mg Tablet) 40 mg PO DAILY [facility] Furosemide (Furosemide 100 Mg/10 Ml Vial) 40 mg IVPUSH Q6H [facility]; Protocol Last Admin: 12/30/21 02:36 Dose: 40 mg Documented By: KRYSTIAN Heparin Sodium (Porcine) (Heparin Sodium,Porcine 5,000 Unit/Ml Vial) 5,000 unit SUBCUT Q12H [facility] Last Admin: 12/30/21 02:36 Dose: 5,000 unit Documented By: KRYSTIAN Levothyroxine Sodium (Levothyroxine Sodium 75 Mcg Tablet) 75 mcg PO DAILY@0600 [facility] Last Admin: 12/30/21 06:24 Dose: 75 mcg Documented By: MÓNICA Lisinopril (Lisinopril 5 Mg Tablet) 5 mg PO DAILY [facility]; Protocol Last Admin: 12/29/21 15:44 Dose: 5 mg Documented By: MIGUELOPECindy Ondansetron HCl (Ondansetron Hcl 4 Mg/2 Ml Vial) 4 mg IVPUSH Q8H PRN PRN Reason: Nausea and Vomiting Pharmacy Consult (Consult Rx Perform Med Rec) 1 each MISCELLANE ONCE PRN PRN Reason: Consult order Sodium Chloride (0.9 % Sodium Chloride Flush 3 Ml Syringe) 3 ml IVFLUSH QSHIFT [facility] Last Admin: 12/30/21 00:29 Dose: 3 ml Documented By: KRYSTIAN Labs CBC & Chem 7: 12/30/21 04:41 12/30/21 04:41 Labs: Laboratory Results - last 24 hr 12/29/21 12/29/21 12/29/21 10:20 10:38 10:40 MCV 93.0 MCH 32.6 MCHC 35.0 RDW 14.4 Plt Count 394 MPV 9.2 L Immature Gran % (Auto) 0.6 H Neut % (Auto) 76.4 H Lymph % (Auto) 13.9 L Lee % (Auto) 5.8 Eos % (Auto) 2.2 Baso % (Auto) 1.1 Lymph # (Auto) 1.1 L Lee # (Auto) 0.5 Eos # (Auto) 0.2 Baso # (Auto) 0.1 Abs Immat Gran (auto) 0.05 H Absolute Neuts (auto) 6.2 Absolute Nucleated RBC 0.000 Nucleated RBC % (auto) 0.0 Anion Gap Estim Creat Clear Calc Estimated GFR POC Glucose 44 L* Random Glucose Fasting Glucose Calcium Magnesium Total Bilirubin Direct Bilirubin AST ALT Alkaline Phosphatase Troponin I High Sens B-Natriuretic Peptide Total Protein Albumin Lipase Urine Color Urine Appearance Urine pH Ur Specific [place] Urine Protein Urine Glucose (UA) Urine Ketones Urine Blood Urine Nitrite Ur Leukocyte Esterase Urine RBC Urine WBC Ur Squamous Epith Cells Urine Bacteria Hyaline Casts Granular Casts Urine Sperm Influenza Type A (PCR) NEGATIVE Influenza Type B (PCR) NEGATIVE RSV RNA Qual (PCR) NEGATIVE SARS-CoV-2 RNA (RT-PCR) NEGATIVE 12/29/21 12/29/21 12/29/21 10:40 10:40 10:44 MCV MCH MCHC RDW Plt Count MPV Immature Gran % (Auto) Neut % (Auto) Lymph % (Auto) [place] % (Auto) Eos % (Auto) Baso % (Auto) Lymph # (Auto) [place] # (Auto) Eos # (Auto) Baso # (Auto) Abs Immat Gran (auto) Absolute Neuts (auto) Absolute Nucleated RBC Nucleated RBC % (auto) Anion Gap 12 Estim Creat Clear Calc 23.6 Estimated GFR 14 POC Glucose 54 L* Random Glucose 73 Fasting Glucose Calcium 8.6 D Magnesium 2.1 Total Bilirubin 0.2 Direct Bilirubin < 0.2 AST 23 ALT 15 Alkaline Phosphatase 56 Troponin I High Sens 147.0 H* D B-Natriuretic Peptide 37 Total Protein 4.6 L Albumin 2.0 L Lipase 32 Urine Color Urine Appearance Urine pH Ur Specific [place] Urine Protein Urine Glucose (UA) Urine Ketones Urine Blood Urine Nitrite Ur Leukocyte Esterase Urine RBC Urine WBC Ur Squamous Epith Cells Urine Bacteria Hyaline Casts Granular Casts Urine Sperm Influenza Type A (PCR) Influenza Type B (PCR) RSV RNA Qual (PCR) SARS-CoV-2 RNA (RT-PCR) 12/29/21 12/29/21 12/29/21 11:07 11:37 13:59 MCV MCH MCHC RDW Plt Count MPV Immature Gran % (Auto) Neut % (Auto) Lymph % (Auto) [place] % (Auto) Eos % (Auto) Baso % (Auto) Lymph # (Auto) [place] # (Auto) Eos # (Auto) Baso # (Auto) Abs Immat Gran (auto) Absolute Neuts (auto) Absolute Nucleated RBC Nucleated RBC % (auto) Anion Gap Estim Creat Clear Calc Estimated GFR POC Glucose 56 L* 59 L* 91 Random Glucose Fasting Glucose Calcium Magnesium Total Bilirubin Direct Bilirubin AST ALT Alkaline Phosphatase Troponin I High Sens B-Natriuretic Peptide Total Protein Albumin Lipase Urine Color Urine Appearance Urine pH Ur Specific [place] Urine Protein Urine Glucose (UA) Urine Ketones Urine Blood Urine Nitrite Ur Leukocyte Esterase Urine RBC Urine WBC Ur Squamous Epith Cells Urine Bacteria Hyaline Casts Granular Casts Urine Sperm Influenza Type A (PCR) Influenza Type B (PCR) RSV RNA Qual (PCR) SARS-CoV-2 RNA (RT-PCR) 12/29/21 12/30/21 12/30/21 20:56 04:41 04:41 MCV 93.5 MCH 31.7 MCHC 33.9 RDW 14.6 Plt Count 359 MPV 9.3 L Immature Gran % (Auto) 0.8 H Neut % (Auto) 59.3 Lymph % (Auto) 24.6 Lee % (Auto) 10.1 Eos % (Auto) 4.4 H Baso % (Auto) 0.8 Lymph # (Auto) 1.8 Lee # (Auto) 0.8 Eos # (Auto) 0.3 Baso # (Auto) 0.1 Abs Immat Gran (auto) 0.06 H Absolute Neuts (auto) 4.4 Absolute Nucleated RBC 0.000 Nucleated RBC % (auto) 0.0 Anion Gap 12 Estim Creat Clear Calc 23.1 Estimated GFR 14 POC Glucose Random Glucose Fasting Glucose 74 Calcium 8.6 Magnesium Total Bilirubin < 0.2 Direct Bilirubin AST 24 ALT 14 Alkaline Phosphatase 48 Troponin I High Sens B-Natriuretic Peptide Total Protein 4.2 L Albumin 1.8 L Lipase Urine Color YELLOW Urine Appearance CLEAR Urine pH 6.0 Ur Specific [place] 1.025 Urine Protein 3+ H Urine Glucose (UA) 250 H Urine Ketones 5 Urine Blood 2+ H Urine Nitrite NEG Ur Leukocyte Esterase NEG Urine RBC 1-4 Urine WBC 0-2 Ur Squamous Epith Cells TRACE Urine Bacteria NONE Hyaline Casts 5-9 Granular Casts 0-2 Urine Sperm NOTED Influenza Type A (PCR) Influenza Type B (PCR) RSV RNA Qual (PCR) SARS-CoV-2 RNA (RT-PCR) 12/30/21 07:33 MCV MCH MCHC RDW Plt Count MPV Immature Gran % (Auto) Neut % (Auto) Lymph % (Auto) [place] % (Auto) Eos % (Auto) Baso % (Auto) Lymph # (Auto) [place] # (Auto) Eos # (Auto) Baso # (Auto) Abs Immat Gran (auto) Absolute Neuts (auto) Absolute Nucleated RBC Nucleated RBC % (auto) Anion Gap Estim Creat Clear Calc Estimated GFR POC Glucose 72 Random Glucose Fasting Glucose Calcium Magnesium Total Bilirubin Direct Bilirubin AST ALT Alkaline Phosphatase Troponin I High Sens B-Natriuretic Peptide Total Protein Albumin Lipase Urine Color Urine Appearance Urine pH Ur Specific [place] Urine Protein Urine Glucose (UA) Urine Ketones Urine Blood Urine Nitrite Ur Leukocyte Esterase Urine RBC Urine WBC Ur Squamous Epith Cells Urine Bacteria Hyaline Casts Granular Casts Urine Sperm Influenza Type A (PCR) Influenza Type B (PCR) RSV RNA Qual (PCR) SARS-CoV-2 RNA (RT-PCR) Assessment and Plan (1) Acute on chronic renal failure: Status: Acute Plan 66 year old male with a history of primary membranous nephropathy presents with overall body swelling and weight gain of 30 lb over the last 2 weeks.? He has been taking Aldactone and Torsemide? faithfully per his account.? In the emergency room, workup consistent with hypokalemia with potassium 2.9 which was repleted along with a creatinine of 4.1 night when somewhat improved over the last month.? BNP is 37. Also noted to have troponin 147 in the absence of chest pain Anasarca/ acute on chronic renal failure, with hx of nephrotic syndrome 30lbs weight gain hx of CHF, BNP 37 aggressive diuresis with Lasix 40IV? q.6 hours nephro consult pending echocardiogram pending low albumin daily weights MED on CKD worsening since 10/2021 nephrology consult pending Elevated troponin in the setting of acute on chronic renal failure serial troponins flat cardiology consult pending Diabetes 2 with Hypoglycemia hold home medications SS, ada diet HTN hold SHOSHANA continue amlodipine DVT prophylaxis with heparin Attending Dr. Squires Full code Patient requires continued hospitalization for IV diuresis to treat anasarca.? This cannot be achieved in the lesser acute setting Quality Stroke Does the patient have a stroke diagnosis?: No VTE Prior VTE?: No VTE Risk Level:: Medical - moderate - high VTE Device Contraindication: Treatment Not Indicated VTE Drug Contraindication: N/A - Med Ordered
[2021-12-30] MEDS: Atorvastatin Calcium 40 MG TABLET PO (09:26)
[2021-12-30] MEDS: amLODIPine Besylate 5 MG TABLET PO (09:27)
[2021-12-30] MEDS: lisinopriL 5 MG TABLET PO (09:27)
[2021-12-30 11:05] LABS: Troponin-I High Sensitivity 112.5 ng/L (<3.5-35.0)
[2021-12-30 12:01] VITALS: BP 128/71; PULSE 76; RESP 17; TEMP 36.6; O2SAT 99
[2021-12-30 13:46] LABS: Glucose, Whole Blood 103 mg/dL (60-115)
[2021-12-30] MEDS: Albumin Human 25 % 100 ML IV ×2 (15:35→17:26)
--- NOTE | 2021-12-30 16:12 | CONS_ITS ---
DATE OF SERVICE: 12/30/2021 HISTORY OF PRESENT ILLNESS: I was called to see this patient to us management of advanced renal failure and edema. Milan is well known to us. He sees my associate, Dr. Jarocho Ribeiro. Milan has chronic kidney disease due to primary membranous nephropathy. He is being treated with Rituxan in the past. He comes in because of increasing edema and has gained about 30 pounds in the last 2 weeks. At the time of his admission, his creatinine was more than 4. Two years ago, his creatinine was 0.9 and the creatinine has been gradually increasing over the last 2 years. ONGOING MEDICAL PROBLEMS: Include history of stage 3 chronic kidney disease, diabetes mellitus, obesity, membranous nephropathy leading to nephrotic syndrome. History of congestive heart failure, class 1. Diverticulosis. Hiatal hernia. History of small bowel obstruction. Hypothyroidism. SOCIAL HISTORY: No history of any tobacco use or alcohol intake. ALLERGIES: HE IS ALLERGIC TO PENICILLIN. HOME MEDICATIONS: Include levothyroxine 100 mcg, amlodipine 5 mg, lisinopril 2.5 mg, sitagliptin, and atorvastatin. All the current medications were reviewed. REVIEW OF SYSTEMS: Revealed no headache, nausea, vomiting. No shortness of breath. Increasing edema. No diarrhea or constipation. No polyuria or polydipsia. No hematuria. No new rash. No joint pains. No fever. No weight loss. PHYSICAL EXAMINATION: GENERAL: Middle-aged man is awake, comfortable, not in distress. NECK: Supple. No JVD. Mucosa is moist. LUNGS: Decreased air entry at the bases. HEART: S1, S2 heard. No gallop. ABDOMEN: Obese, soft, nontender. EXTREMITIES: 2 to 3+ edema. No rash. No clubbing. VITAL SIGNS: Blood pressure was 131/67, pulse 70. LABORATORY DATA: Sodium 138, potassium 3.3, CO2 19, BUN 34, creatinine 4.28, serum albumin 1.8. Urinalysis shows 3+ protein by dipstick with 2+ blood by dipstick as well. Hemoglobin was 10.8, platelet count of 359. IMPRESSION: A 66-year-old man with 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 RECOMMENDATION: Would include to start him with a low-sodium diet. I aggressively diuresed him with IV Lasix. I would start him on Lasix drip at 10 mg an hour and keep him on negative fluid balance of about 1-2 L per 24 hours. I will track down previous lab results including the anti-PLA2R results. Based on this, we can reassess the need for another dose of Rituxan. I suspect he is gradually progressing towards ESRD and he might require hemodialysis or ultrafiltration if he fails to respond to Lasix. We will follow him closely along with the team. Davon Forte MD BPA/MODL / [id number] MTDD
[2021-12-30 16:32] VITALS: BP 148/69; PULSE 76; RESP 16; TEMP 36.8; O2SAT 99
--- NOTE | 2021-12-30 19:50 | PC.NURSE ---
patient a&ox3, denies pain/discomfort, denies sob, cardiac cath technician nsr 80-90s, pt has 3+ BLE edema, pt ambulates independently to bathroom with steady gait, call acharya within reach, will continue to monitor.
[2021-12-30 20:38] VITALS: BP 147/71; PULSE 92; RESP 16; TEMP 36.6; O2SAT 97
--- NOTE | 2021-12-30 22:20 | PC.NURSE ---
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
--- NOTE | 2021-12-30 23:12 | PC.NURSE ---
attempted to call report, floor nurse to call overflow back when ready
[2021-12-31] VITALS (7 sets, daily range): BP systolic 116–163; BP diastolic 63–81; PULSE 78–88; RESP 12–20; TEMP 36.3–37.4; O2SAT 96–99
[2021-12-31] MEDS: 0.9 % Sodium Chloride Flush 3 ML SYRINGE IVFLUSH ×2 (01:14→09:09)
[2021-12-31] MEDS: Heparin Sodium,Porcine 5,000 UNIT/ML VIAL 5000 UNIT SUBCUT ×2 (01:26→14:13)
[2021-12-31] MEDS: Furosemide 100 MG/10 ML VIAL 40 MG IVPUSH ×2 (01:51→09:09)
[2021-12-31] MEDS: Levothyroxine Sodium 75 MCG TABLET PO (05:11)
[2021-12-31 06:41] LABS: MANUAL DIFF FLAG NO
[2021-12-31 06:47] LABS: Basophils Absolute Auto 0.1 X10*3/uL (0.0-0.2); Eosinophils Absolute Auto 0.4 X10*3/uL (0.0-0.4); Eosinophils Percent Auto 6.2 % (0-4); Hematocrit 29.2 % (42.0-52.0); Hemoglobin 9.9 g/dl (14.0-18.0); Imm Gran Abs Auto 0.05 X10*3/uL (0.00-0.03); Imm Gran Pct Auto 0.8 % (0.0-0.4); Lymphocytes Absolute Auto 1.8 X10*3/uL (1.2-4.9); Lymphocytes Percent Auto 29.3 % (20-40); Mean Corpuscular HGB Conc 33.9 g/dl (31.0-36.0); Mean Corpuscular Hemoglobin 31.8 pg (27.0-33.0); Mean Corpuscular Volume 93.9 fL (80.0-98.0); Mean Platelet Volume 9.6 fL (9.4-12.4); Monocytes Absolute Auto 0.7 X10*3/uL (0.1-1.2); Monocytes Percent Auto 11.4 % (2-11); Neutrophils Absolute Auto 3.2 x10*3/uL (2.0-8.3); Neutrophils Percent Auto 51.3 % (45-73); Platelet Count 326 X10*3/uL (160-400); Red Blood Count 3.11 X10*6/uL (4.60-5.80); Red Cell Distribution Width 14.6 % (11.0-16.0); White Blood Count 6.3 X10*3/uL (4.8-10.8)
[2021-12-31 07:15] LABS: Alanine Aminotransferase 11 U/L (0-40); Albumin Level 1.9 g/dL (3.5-5.0); Alkaline Phosphatase 44 U/L (39-117); Anion Gap 11 (12-20); Aspartate Amino Transferase 18 U/L (5-37); Bilirubin Total < 0.2 mg/dL (0.0-1.0); Blood Urea Nitrogen 30 mg/dL (9-16); Calcium 8.9 mg/dL (8.4-10.2); Carbon Dioxide 20 mmol/L (22-29); Chloride 112 mmol/L (96-108); Creatinine Clr Calc Pharmacy 21.9; Estimated Glomerular Filt Rate 13; Glucose Fasting 97 mg/dL (60-99); Magnesium 2.1 mg/dL (1.6-2.6); Potassium 2.8 mmol/L (3.3-5.1); Sodium 140 mmol/L (135-145); Total Protein 3.9 g/dL (6.5-8.0)
[2021-12-31 08:01] LABS: Glucose, Whole Blood 94 mg/dL (60-115)
[2021-12-31] MEDS: Potassium Chloride ER 20 MEQ TAB.ER.PRT 40 MEQ PO ×2 (09:07→19:45)
[2021-12-31] MEDS: Atorvastatin Calcium 40 MG TABLET PO (09:07)
[2021-12-31] MEDS: amLODIPine Besylate 5 MG TABLET PO (09:08)
--- NOTE | 2021-12-31 10:25 | MHC.CLN ---
NUTRITION ADDED 2 GRAM SODIUM TO DIET ORDER PER MD CONSULT. DIET=DIABETIC 2000 KCAL, 2 GRAM SODIUM, PATIENT WITH ANASARCA AND MD NOTES 30# WEIGHT GAIN X 2 WEEKS.
--- NOTE | 2021-12-31 10:33 | PM.PNNEP ---
Subjective Subjective Date of Service: 01/01/22 Interval history: Events noted Diuresing well Physical Exam Vital Signs: Vital Signs: Last Vital Signs Temp 98.5 F 12/31/21 07:39 Pulse 78 12/31/21 07:39 Resp 12 12/31/21 07:39 BP 142/81 H 12/31/21 07:39 Pulse Ox 97 12/31/21 07:39 O2 Del Method 12/31/21 07:39 BMI result Body Mass Index 39.3 Const: Other: no acute distress Resp: Other: clear to auscultation bilaterally no rales rhonchi or wheezes Cardio: Other: no S4; positive S1-S2; no S3 2/6 systolic murmur best heard at the apex GI: Other: mildly edematous quiet bowel sounds : Other: mild scrotal edema Extrem: Other: pitting edema bilaterally Objective Data Labs CBC & Chem 7: 01/01/22 05:57 01/01/22 05:57 Labs: Laboratory Results - last 24 hr 12/30/21 12/30/21 12/31/21 10:27 13:43 06:02 WBC RBC Hgb Hct MCV MCH MCHC RDW Plt Count MPV Immature Gran % (Auto) Neut % (Auto) Lymph % (Auto) [place] % (Auto) Eos % (Auto) Baso % (Auto) Lymph # (Auto) [place] # (Auto) Eos # (Auto) Baso # (Auto) Abs Immat Gran (auto) Absolute Neuts (auto) Absolute Nucleated RBC Nucleated RBC % (auto) Sodium 140 Potassium 2.8 L Chloride 112 H Carbon Dioxide 20 L Anion Gap 11 L BUN 30 H Creatinine 4.52 H* Estim Creat Clear Calc 21.9 Estimated GFR 13 POC Glucose 103 Random Glucose TNP Fasting Glucose 97 Calcium 8.9 Magnesium 2.1 Total Bilirubin < 0.2 AST 18 ALT 11 Alkaline Phosphatase 44 Troponin I High Sens 112.5 H* Total Protein 3.9 L Albumin 1.9 L 12/31/21 12/31/21 06:02 07:37 WBC 6.3 RBC 3.11 L Hgb 9.9 L Hct 29.2 L MCV 93.9 MCH 31.8 MCHC 33.9 RDW 14.6 Plt Count 326 MPV 9.6 Immature Gran % (Auto) 0.8 H Neut % (Auto) 51.3 Lymph % (Auto) 29.3 [place] % (Auto) 11.4 H Eos % (Auto) 6.2 H Baso % (Auto) 1.0 Lymph # (Auto) 1.8 [place] # (Auto) 0.7 Eos # (Auto) 0.4 Baso # (Auto) 0.1 Abs Immat Gran (auto) 0.05 H Absolute Neuts (auto) 3.2 Absolute Nucleated RBC 0.000 Nucleated RBC % (auto) 0.0 Sodium Potassium Chloride Carbon Dioxide Anion Gap BUN Creatinine Estim Creat Clear Calc Estimated GFR POC Glucose 94 Random Glucose Fasting Glucose Calcium Magnesium Total Bilirubin AST ALT Alkaline Phosphatase Troponin I High Sens Total Protein Albumin Procedures Date of Service Date of Service: 01/01/22 Assessment & Plan Assessment and plan (1) Acute on chronic renal failure: Status: Acute Plan ?66-year-old man with 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 ? Anemia Hypokalemia RECOMMENDATION:? low-sodium diet. ? IV Lasix.? If UO < 2 L per 24 hrs,would start Lasix drip at 10 mg an hour and keep him on negative fluid balance of about 2 L per 24 hours.? ? another dose of Rituxan. I suspect he is gradually progressing towards ESRD and he might require hemodialysis or ultrafiltration if he fails to respond to Lasix.? Replace K orally Time Spent With Patient Time: Total time spent is greater than 50% in coordination of care (as documented) at patient's floor/unit and/or counseling patient: Progress Note: Quality Stroke Does the patient have a stroke diagnosis?: No
[2021-12-31 11:14] LABS: Glucose, Whole Blood 131 mg/dL (60-115)
--- NOTE | 2021-12-31 13:11 | PM.CNCAR ---
History of Present Illness History of Present Illness Date of Service: 12/31/21 Requesting physician: Gaye Neves Chief complaint: Anasarca, severe Narrative: 66-year-old gentleman with background history of nephrotic syndrome who is presenting with diffuse anasarca and shortness of breath. He is saying that over the last few months he has been experiencing progressive weight gain and shortness of breath. He is saying his weight was going up and to felt that he is unable to walk to that. He denies any chest discomfort. With these symptoms he presented to [facility]. He was noted to have significantly abnormal creatinine level is 2 workup for nephrotic syndrome. He was also by Nephrology recommended diuretics. He had felt dizzy previously but has never passed out. Echocardiography was performed which showed evidence of severe aortic valve stenosis. [facility] Past Medical History Medical History (Updated 12/31/21 @ 21:12 by Chris Messer MD) CHF (congestive heart failure), NYHA class I CKD (chronic kidney disease) stage 3, GFR 30-59 ml/min Congestive heart failure Diabetes 1.5, managed as type 2 Diverticulosis Hiatal hernia History of small bowel obstruction Hyperlipidemia Hypothyroidism Nephrotic syndrome Family History Family History Father No problems noted. Social History Social History Household Members: None Housing: Apartment Do you presently have visiting nurse or other home services: No Alcohol intake: unknown Patient Tobacco Use Status: Never used Tobacco Second Hand Smoke Exposure: No Advance Directives Date on File: 05/01/20 service: No Current occupational status: unemployed and disabled Meds Allergies Allergy/AdvReac Type Severity Reaction Status Date / Time Penicillins Allergy Unknown UNKWN Verified 04/23/20 13:49 Active Medications: Current Medications Acetaminophen (Acetaminophen 325 Mg Tablet) 650 mg PO Q6H PRN PRN Reason: Pain, Mild (Pain Scale 1-3) Amlodipine Besylate (Amlodipine Besylate 5 Mg Tablet) 5 mg PO DAILY [facility]; Protocol Last Admin: 12/31/21 09:08 Dose: 5 mg Atorvastatin Calcium (Atorvastatin Calcium 40 Mg Tablet) 40 mg PO DAILY [facility] Last Admin: 12/31/21 09:07 Dose: 40 mg Furosemide (Furosemide 100 Mg/10 Ml Vial) 40 mg IVPUSH Q6H [facility]; Protocol Last Admin: 12/31/21 09:09 Dose: 40 mg Heparin Sodium (Porcine) (Heparin Sodium,Porcine 5,000 Unit/Ml Vial) 5,000 unit SUBCUT Q12H [facility] Last Admin: 12/31/21 01:26 Dose: 5,000 unit Levothyroxine Sodium (Levothyroxine Sodium 75 Mcg Tablet) 75 mcg PO DAILY@0600 [facility] Last Admin: 12/31/21 05:11 Dose: 75 mcg Lisinopril (Lisinopril 5 Mg Tablet) 5 mg PO DAILY [facility]; Protocol Last Admin: 12/30/21 09:27 Dose: 5 mg Ondansetron HCl (Ondansetron Hcl 4 Mg/2 Ml Vial) 4 mg IVPUSH Q8H PRN PRN Reason: Nausea and Vomiting Pharmacy Consult (Consult Rx Perform Med Rec) 1 each MISCELLANE ONCE PRN PRN Reason: Consult order Potassium Chloride (Potassium Chloride Er 20 Meq Tab.Er.Prt) 40 meq PO BID [facility] Last Admin: 12/31/21 09:07 Dose: 40 meq Sodium Chloride (0.9 % Sodium Chloride Flush 3 Ml Syringe) 3 ml IVFLUSH QSHIFT [facility] Last Admin: 12/31/21 09:09 Dose: 3 ml Home Medications Medication Instructions Recorded Confirmed Last Taken Type levothyroxine 75 mcg tablet 75 mcg PO DAILY 06/27/20 12/29/21 12/28/21 History amlodipine 5 mg tablet 1 tab PO DAILY 10/24/21 12/29/21 12/28/21 History atorvastatin 40 mg tablet 1 tab PO DAILY 10/24/21 12/29/21 12/28/21 History lisinopril 2.5 mg tablet 1 tab PO DAILY 10/24/21 12/29/21 12/28/21 History sitagliptin 100 mg tablet (Januvia) 1 tab PO DAILY 10/24/21 12/29/21 12/28/21 History Physical Exam Vital Signs: Vital Signs: Last Vital Signs Temp 98.5 F 12/31/21 11:00 Pulse 79 12/31/21 11:00 Resp 12 12/31/21 11:00 BP 116/70 12/31/21 11:00 Pulse Ox 99 12/31/21 11:00 O2 Del Method 12/31/21 11:00 BMI result Body Mass Index 39.3 GENERAL APPEARANCE: in no acute distress, pleasant. NECK: no carotid bruit, + jugular venous distention. SKIN: no suspicious lesions, warm and dry. HEART: no murmurs, regular rate and rhythm. LUNGS: clear to auscultation bilaterally. ABDOMEN: soft, nontender. EXTREMITIES: 2+ edema. PERIPHERAL PULSES: equal. NEUROLOGIC: No gross deficits, AAO X 3 Objective Labs and Meds Result diagrams: 12/31/21 06:02 12/31/21 06:02 Lab results: Laboratory Results - last 24 hr 12/30/21 12/31/21 12/31/21 13:43 06:02 06:02 WBC 6.3 RBC 3.11 L Hgb 9.9 L Hct 29.2 L MCV 93.9 MCH 31.8 MCHC 33.9 RDW 14.6 Plt Count 326 MPV 9.6 Immature Gran % (Auto) 0.8 H Neut % (Auto) 51.3 Lymph % (Auto) 29.3 [place] % (Auto) 11.4 H Eos % (Auto) 6.2 H Baso % (Auto) 1.0 Lymph # (Auto) 1.8 [place] # (Auto) 0.7 Eos # (Auto) 0.4 Baso # (Auto) 0.1 Abs Immat Gran (auto) 0.05 H Absolute Neuts (auto) 3.2 Absolute Nucleated RBC 0.000 Nucleated RBC % (auto) 0.0 Sodium 140 Potassium 2.8 L Chloride 112 H Carbon Dioxide 20 L Anion Gap 11 L BUN 30 H Creatinine 4.52 H* Estim Creat Clear Calc 21.9 Estimated GFR 13 POC Glucose 103 Random Glucose TNP Fasting Glucose 97 Calcium 8.9 Magnesium 2.1 Total Bilirubin < 0.2 AST 18 ALT 11 Alkaline Phosphatase 44 Total Protein 3.9 L Albumin 1.9 L 12/31/21 12/31/21 07:37 11:03 WBC RBC Hgb Hct MCV MCH MCHC RDW Plt Count MPV Immature Gran % (Auto) Neut % (Auto) Lymph % (Auto) [place] % (Auto) Eos % (Auto) Baso % (Auto) Lymph # (Auto) [place] # (Auto) Eos # (Auto) Baso # (Auto) Abs Immat Gran (auto) Absolute Neuts (auto) Absolute Nucleated RBC Nucleated RBC % (auto) Sodium Potassium Chloride Carbon Dioxide Anion Gap BUN Creatinine Estim Creat Clear Calc Estimated GFR POC Glucose 94 131 H Random Glucose Fasting Glucose Calcium Magnesium Total Bilirubin AST ALT Alkaline Phosphatase Total Protein Albumin Assessment and Plan (1) Acute on chronic renal failure: Status: Acute (2) Anasarca associated with disorder of kidney: Status: Acute (3) Aortic stenosis: Status: Acute Plan Pleasant 66-year-old gentleman who is presenting for significant weight gain and diffuse anasarca. Clinically he is hypovolemic and is being worked for nephrotic syndrome. He also has noted to have systolic murmur and by exam he has severe stenosis which is confirmed on echocardiography 2. It is difficult to say that his presentation is due to aortic stenosis currently or nephrotic syndrome. He is being worked up by Nephrology. Agree with IV diuretics at this point. We will have to see how his creatinine reacts to the current mangement. Once he is unstable situation then we will do left and right heart catheterization on him to further assess for any coronary disease and assess there is a hemodynamics. He is not in any shape to do any invasive procedures right now though. Continue diuretics and monitor electrolytes closely. We will follow along the. Thank you for allowing me to participate in the care of your patient. Please feel free to contact me if you have any questions. Procedures Date of Service Date of Service: 12/31/21
--- NOTE | 2021-12-31 13:16 | HO.PM.IMPN ---
Subjective Subjective Date of Service: 12/31/21 Interval History: feels better this morning still feel edematous denies shortness of breath no lightheadedness dizziness no acute events overnight tolerating diet with no nausea vomiting or abdominal pain. Review of Systems General no headache , no dizziness, no fever chills. CVS no chest pain, no palpitation. Respiratory no cough, no sob. Gastrointestinal no nausea no vomiting, no abdominal pain Physical Exam Vital Signs: Vital Signs: Last Vital Signs Temp 98.5 F 12/31/21 11:00 Pulse 79 12/31/21 11:00 Resp 12 12/31/21 11:00 BP 116/70 12/31/21 11:00 Pulse Ox 99 12/31/21 11:00 O2 Del Method 12/31/21 11:00 BMI result Body Mass Index 39.3 Const: Other: General awake alert x3, no acute distress. Neck supple no JVD. CVS regular rate rhythm, Respiratory lungs clear to auscultation, no respiratory distress, no wheeze, no rhonchi. Gastrointestinal abdomen soft, nontender, abdominal wall edema, bowel sounds audible, no guarding , no rigidity. Extremities bilateral pitting edema Neuro nonfocal Skin no rash psych appropriate affect Objective Data Active Medications Acetaminophen (Acetaminophen 325 Mg Tablet) 650 mg PO Q6H PRN PRN Reason: Pain, Mild (Pain Scale 1-3) Amlodipine Besylate (Amlodipine Besylate 5 Mg Tablet) 5 mg PO DAILY [facility]; Protocol Last Admin: 12/31/21 09:08 Dose: 5 mg Documented By: KAVYA Atorvastatin Calcium (Atorvastatin Calcium 40 Mg Tablet) 40 mg PO DAILY [facility] Last Admin: 12/31/21 09:07 Dose: 40 mg Documented By: KAVYA Furosemide (Furosemide 100 Mg/10 Ml Vial) 40 mg IVPUSH Q6H [facility]; Protocol Last Admin: 12/31/21 09:09 Dose: 40 mg Documented By: KAVYA Heparin Sodium (Porcine) (Heparin Sodium,Porcine 5,000 Unit/Ml Vial) 5,000 unit SUBCUT Q12H [facility] Last Admin: 12/31/21 01:26 Dose: 5,000 unit Documented By: DIAMOND Levothyroxine Sodium (Levothyroxine Sodium 75 Mcg Tablet) 75 mcg PO DAILY@0600 [facility] Last Admin: 12/31/21 05:11 Dose: 75 mcg Documented By: DIAMOND Lisinopril (Lisinopril 5 Mg Tablet) 5 mg PO DAILY [facility]; Protocol Last Admin: 12/30/21 09:27 Dose: 5 mg Documented By: ABIOLA Ondansetron HCl (Ondansetron Hcl 4 Mg/2 Ml Vial) 4 mg IVPUSH Q8H PRN PRN Reason: Nausea and Vomiting Pharmacy Consult (Consult Rx Perform Med Rec) 1 each MISCELLANE ONCE PRN PRN Reason: Consult order Potassium Chloride (Potassium Chloride Er 20 Meq Tab.Er.Prt) 40 meq PO BID [facility] Last Admin: 12/31/21 09:07 Dose: 40 meq Documented By: KAVYA Sodium Chloride (0.9 % Sodium Chloride Flush 3 Ml Syringe) 3 ml IVFLUSH QSHIFT [facility] Last Admin: 12/31/21 09:09 Dose: 3 ml Documented By: KAVYA Labs CBC & Chem 7: 12/31/21 06:02 12/31/21 06:02 Labs: Laboratory Results - last 24 hr 12/30/21 12/31/21 12/31/21 13:43 06:02 06:02 MCV 93.9 MCH 31.8 MCHC 33.9 RDW 14.6 Plt Count 326 MPV 9.6 Immature Gran % (Auto) 0.8 H Neut % (Auto) 51.3 Lymph % (Auto) 29.3 [place] % (Auto) 11.4 H Eos % (Auto) 6.2 H Baso % (Auto) 1.0 Lymph # (Auto) 1.8 [place] # (Auto) 0.7 Eos # (Auto) 0.4 Baso # (Auto) 0.1 Abs Immat Gran (auto) 0.05 H Absolute Neuts (auto) 3.2 Absolute Nucleated RBC 0.000 Nucleated RBC % (auto) 0.0 Anion Gap 11 L Estim Creat Clear Calc 21.9 Estimated GFR 13 POC Glucose 103 Random Glucose TNP Fasting Glucose 97 Calcium 8.9 Magnesium 2.1 Total Bilirubin < 0.2 AST 18 ALT 11 Alkaline Phosphatase 44 Total Protein 3.9 L Albumin 1.9 L 12/31/21 12/31/21 07:37 11:03 MCV MCH MCHC RDW Plt Count MPV Immature Gran % (Auto) Neut % (Auto) Lymph % (Auto) [place] % (Auto) Eos % (Auto) Baso % (Auto) Lymph # (Auto) [place] # (Auto) Eos # (Auto) Baso # (Auto) Abs Immat Gran (auto) Absolute Neuts (auto) Absolute Nucleated RBC Nucleated RBC % (auto) Anion Gap Estim Creat Clear Calc Estimated GFR POC Glucose 94 131 H Random Glucose Fasting Glucose Calcium Magnesium Total Bilirubin AST ALT Alkaline Phosphatase Total Protein Albumin Assessment and Plan (1) Acute on chronic renal failure: Status: Acute Plan 66 year old male with a history of primary membranous nephropathy presents with overall body swelling and weight gain of 30 lb over the last 2 weeks.? He has been taking Aldactone and Torsemide? faithfully per his account.? In the emergency room, workup consistent with hypokalemia with potassium 2.9 which was repleted along with a creatinine of 4.1 night when somewhat improved over the last month.? BNP is 37. Also noted to have troponin 147 in the absence of chest pain Anasarca/ acute on chronic renal failure, with hx of Biopsy-proven membranous glomerular nephritis 30lbs weight gain no response to IV Lasix q.6 hours with positive fluid balance will place on IV Lasix drip 10 milligram/hour monitor renal function closely being followed by Nephrology if patient does not respond to diuretics then will need hemodialysis no evidence of acute CHF hypokalemia potassium 2.8 likely due to diuretics will aggressively replace and follow labs severe aortic stenosis echocardiogram showed stable EF 60-65%, abnormal diastolic dysfunction and severe aortic stenosis will consult Cardiology MED on CKD worsening since 10/2021, creatinine bumped to 4.52 from around 4.2, follow BMP while being diuresed Elevated troponin in the setting of acute on chronic renal failure , elevated and flat no chest pain echo showed no wall motion abnormality, no further workup indicated. Diabetes 2 with Hypoglycemia hold home medications , blood sugars stable continue insulin sliding scale and ADA diet SS, ada diet HTN continue amlodipine hypothyroidism will check TSH DVT prophylaxis with heparin Full code Patient requires continued hospitalization for IV Lasix drip to treat generalized edema related to nephrotic syndrome with worsening renal function. Quality Stroke Does the patient have a stroke diagnosis?: No VTE Prior VTE?: No VTE Risk Level:: Medical - moderate - high VTE Device Contraindication: Treatment Not Indicated VTE Drug Contraindication: N/A - Med Ordered
[2021-12-31] MEDS: Furosemide 200 MG in 0.9 % Sodium Chloride 80 ML IVCONT (14:11)
--- NOTE | 2021-12-31 14:42 | MHC.CM.PN ---
PATIENT W/ AORTIC STENOSIS AND RECEIVES IV LASIX Q6H PLAN IS FOR DISCHARGE WEDNESDAY OR WEDNESDAY CASE MANAGEMENT FOLLOWING FOR ANY CHANGES IN DISCHARGE PLAN.
[2021-12-31 15:57] LABS: Glucose, Whole Blood 119 mg/dL (60-115)
[2021-12-31 20:26] LABS: Glucose, Whole Blood 130 mg/dL (60-115)
[2022-01-01] MEDS: Heparin Sodium,Porcine 5,000 UNIT/ML VIAL 5000 UNIT SUBCUT ×2 (01:55→14:19)
[2022-01-01 03:37] VITALS: BP 105/60; PULSE 87; RESP 17; TEMP 36.3; O2SAT 96
[2022-01-01] MEDS: Levothyroxine Sodium 75 MCG TABLET PO (05:47)
[2022-01-01 06:30] LABS: MANUAL DIFF FLAG NO
[2022-01-01 06:36] LABS: Basophils Absolute Auto 0.1 X10*3/uL (0.0-0.2); Basophils Percent Auto 0.9 % (0-2); Eosinophils Absolute Auto 0.3 X10*3/uL (0.0-0.4); Eosinophils Percent Auto 5.2 % (0-4); Hematocrit 30.3 % (42.0-52.0); Hemoglobin 10.3 g/dl (14.0-18.0); Imm Gran Abs Auto 0.06 X10*3/uL (0.00-0.03); Imm Gran Pct Auto 0.9 % (0.0-0.4); Lymphocytes Absolute Auto 1.9 X10*3/uL (1.2-4.9); Lymphocytes Percent Auto 29.2 % (20-40); Mean Corpuscular Volume 94.1 fL (80.0-98.0); Mean Platelet Volume 9.6 fL (9.4-12.4); Monocytes Absolute Auto 0.6 X10*3/uL (0.1-1.2); Monocytes Percent Auto 9.7 % (2-11); Neutrophils Absolute Auto 3.5 x10*3/uL (2.0-8.3); Neutrophils Percent Auto 54.1 % (45-73); Platelet Count 353 X10*3/uL (160-400); Red Blood Count 3.22 X10*6/uL (4.60-5.80); Red Cell Distribution Width 14.3 % (11.0-16.0); White Blood Count 6.5 X10*3/uL (4.8-10.8)
[2022-01-01 07:18] LABS: Alanine Aminotransferase 13 U/L (0-40); Albumin Level 1.9 g/dL (3.5-5.0); Alkaline Phosphatase 50 U/L (39-117); Anion Gap 11 (12-20); Aspartate Amino Transferase 16 U/L (5-37); Bilirubin Total < 0.2 mg/dL (0.0-1.0); Blood Urea Nitrogen 29 mg/dL (9-16); Carbon Dioxide 20 mmol/L (22-29); Chloride 111 mmol/L (96-108); Creatinine Clr Calc Pharmacy 21.7; Estimated Glomerular Filt Rate 13; Glucose Fasting 99 mg/dL (60-99); Sodium 139 mmol/L (135-145); Total Protein 3.9 g/dL (6.5-8.0)
[2022-01-01 07:19] VITALS: BP 124/72; PULSE 71; RESP 18; TEMP 36.5; O2SAT 98
[2022-01-01 07:25] LABS: Thyroid Stimulating Hormone 1.55 uIU/mL (0.32-4.0)
[2022-01-01 07:36] LABS: Glucose, Whole Blood 97 mg/dL (60-115)
[2022-01-01] MEDS: Furosemide 200 MG in 0.9 % Sodium Chloride 80 ML IVCONT (09:07)
[2022-01-01] MEDS: amLODIPine Besylate 5 MG TABLET PO (09:07)
[2022-01-01] MEDS: Atorvastatin Calcium 40 MG TABLET PO (09:08)
[2022-01-01] MEDS: Potassium Chloride ER 20 MEQ TAB.ER.PRT 60 MEQ PO ×3 (09:08→19:38)
--- NOTE | 2022-01-01 10:58 | P.PNNP_ITS ---
Subjective Subjective Date of Service: 01/01/22 Interval history: Events noted NEg fludi balance Physical Exam Vital Signs: Vital Signs: Last Vital Signs Temp 97.7 F 01/01/22 07:19 Pulse 71 01/01/22 07:19 Resp 18 01/01/22 07:19 BP 124/72 01/01/22 07:19 Pulse Ox 98 01/01/22 07:19 O2 Del Method 01/01/22 07:19 BMI result Body Mass Index 39.3 Const: Other: no acute distress Resp: Other: clear to auscultation bilaterally no rales rhonchi or wheezes Cardio: Other: no S4; positive S1-S2; no S3 2/6 systolic murmur best heard at the apex GI: Other: mildly edematous quiet bowel sounds : Other: mild scrotal edema Extrem: Other: pitting edema bilaterally Objective Data Labs CBC & Chem 7: 01/01/22 05:57 01/01/22 05:57 Labs: Laboratory Results - last 24 hr 12/31/21 12/31/21 12/31/21 11:03 15:34 20:21 WBC RBC Hgb Hct MCV MCH MCHC RDW Plt Count MPV Immature Gran % (Auto) Neut % (Auto) Lymph % (Auto) [place] % (Auto) Eos % (Auto) Baso % (Auto) Lymph # (Auto) [place] # (Auto) Eos # (Auto) Baso # (Auto) Abs Immat Gran (auto) Absolute Neuts (auto) Absolute Nucleated RBC Nucleated RBC % (auto) Sodium Potassium Chloride Carbon Dioxide Anion Gap BUN Creatinine Estim Creat Clear Calc Estimated GFR POC Glucose 131 H 119 H 130 H Fasting Glucose Calcium Total Bilirubin AST ALT Alkaline Phosphatase Total Protein Albumin TSH 01/01/22 01/01/22 01/01/22 05:57 05:57 07:17 WBC 6.5 RBC 3.22 L Hgb 10.3 L Hct 30.3 L MCV 94.1 MCH 32.0 MCHC 34.0 RDW 14.3 Plt Count 353 MPV 9.6 Immature Gran % (Auto) 0.9 H Neut % (Auto) 54.1 Lymph % (Auto) 29.2 [place] % (Auto) 9.7 Eos % (Auto) 5.2 H Baso % (Auto) 0.9 Lymph # (Auto) 1.9 [place] # (Auto) 0.6 Eos # (Auto) 0.3 Baso # (Auto) 0.1 Abs Immat Gran (auto) 0.06 H Absolute Neuts (auto) 3.5 Absolute Nucleated RBC 0.000 Nucleated RBC % (auto) 0.0 Sodium 139 Potassium 3.0 L Chloride 111 H Carbon Dioxide 20 L Anion Gap 11 L BUN 29 H Creatinine 4.55 H* Estim Creat Clear Calc 21.7 Estimated GFR 13 POC Glucose 97 Fasting Glucose 99 Calcium 9.0 Total Bilirubin < 0.2 AST 16 ALT 13 Alkaline Phosphatase 50 Total Protein 3.9 L Albumin 1.9 L TSH 1.55 Procedures Date of Service Date of Service: 01/01/22 Assessment & Plan Assessment and plan (1) Acute on chronic renal failure: Status: Acute Plan ?66-year-old man with 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 ? Anemia Hypokalemia RECOMMENDATION:? low-sodium diet. Increase start Lasix drip to 15mg an hour and keep him on negative fluid balance of about 2 L per 24 hours.? ? another dose of Rituxan. I suspect he is gradually progressing towards ESRD and he might require hemodialysis or ultrafiltration if he fails to respond to Lasix.? Replace K orally Time Spent With Patient Time: Total time spent is greater than 50% in coordination of care (as documented) at patient's floor/unit and/or counseling patient: Progress Note: Quality Stroke Does the patient have a stroke diagnosis?: No
--- NOTE | 2022-01-01 11:35 | HO.PM.IMPN ---
Subjective Subjective Date of Service: 01/01/22 Interval History: feeling better this morning, denies shortness of breath, no chest pain, no nausea no vomiting feels generalized swelling is going down, no acute issues overnight. Review of Systems [employer] no headache no dizziness CVS no chest pain, no palpitation GI no nausea, no vomiting, no diarrhea Review of Systems: Yes all other systems are reviewed and are negative Physical Exam Vital Signs: Vital Signs: Last Vital Signs Temp 97.7 F 01/01/22 07:19 Pulse 71 01/01/22 07:19 Resp 18 01/01/22 07:19 BP 124/72 01/01/22 07:19 Pulse Ox 98 01/01/22 07:19 O2 Del Method 01/01/22 07:19 BMI result Body Mass Index 39.3 Const: Other: General? awake alert x3, no acute distress.? Neck? supple no JVD. CVS? regular rate rhythm, Respiratory lungs clear to auscultation, no respiratory distress, no wheeze, no rhonchi. Gastrointestinal abdomen soft, nontender, abdominal wall edema, bowel sounds audible, no guarding , no rigidity. Extremities? bilateral pitting edema improving. Neuro nonfocal Skin no rash psych appropriate affect Objective Data Active Medications Acetaminophen (Acetaminophen 325 Mg Tablet) 650 mg PO Q6H PRN PRN Reason: Pain, Mild (Pain Scale 1-3) Amlodipine Besylate (Amlodipine Besylate 5 Mg Tablet) 5 mg PO DAILY [facility]; Protocol Last Admin: 01/01/22 09:07 Dose: 5 mg Documented By: DEVONTE Atorvastatin Calcium (Atorvastatin Calcium 40 Mg Tablet) 40 mg PO DAILY [facility] Last Admin: 01/01/22 09:08 Dose: 40 mg Documented By: DEVONTE Heparin Sodium (Porcine) (Heparin Sodium,Porcine 5,000 Unit/Ml Vial) 5,000 unit SUBCUT Q12H [facility] Last Admin: 01/01/22 01:55 Dose: 5,000 unit Documented By: LAURA Levothyroxine Sodium (Levothyroxine Sodium 75 Mcg Tablet) 75 mcg PO DAILY@0600 [facility] Last Admin: 01/01/22 05:47 Dose: 75 mcg Documented By: LAURA Ondansetron HCl (Ondansetron Hcl 4 Mg/2 Ml Vial) 4 mg IVPUSH Q8H PRN PRN Reason: Nausea and Vomiting Pharmacy Consult (Consult Rx Perform Med Rec) 1 each MISCELLANE ONCE PRN PRN Reason: Consult order Potassium Chloride (Potassium Chloride Er 20 Meq Tab.Er.Prt) 60 meq PO TID [facility] Sodium Chloride (0.9 % Sodium Chloride Flush 3 Ml Syringe) 3 ml IVFLUSH QSHIFT [facility] Last Admin: 01/01/22 09:13 Dose: Not Given Documented By: DEVONTE Non-Admin Reason: IV Running Labs CBC & Chem 7: 01/01/22 05:57 01/01/22 05:57 Labs: Laboratory Results - last 24 hr 12/31/21 12/31/21 01/01/22 15:34 20:21 05:57 MCV 94.1 MCH 32.0 MCHC 34.0 RDW 14.3 Plt Count 353 MPV 9.6 Immature Gran % (Auto) 0.9 H Neut % (Auto) 54.1 Lymph % (Auto) 29.2 [place] % (Auto) 9.7 Eos % (Auto) 5.2 H Baso % (Auto) 0.9 Lymph # (Auto) 1.9 [place] # (Auto) 0.6 Eos # (Auto) 0.3 Baso # (Auto) 0.1 Abs Immat Gran (auto) 0.06 H Absolute Neuts (auto) 3.5 Absolute Nucleated RBC 0.000 Nucleated RBC % (auto) 0.0 Anion Gap Estim Creat Clear Calc Estimated GFR POC Glucose 119 H 130 H Fasting Glucose Calcium Total Bilirubin AST ALT Alkaline Phosphatase Total Protein Albumin TSH 01/01/22 01/01/22 05:57 07:17 MCV MCH MCHC RDW Plt Count MPV Immature Gran % (Auto) Neut % (Auto) Lymph % (Auto) [place] % (Auto) Eos % (Auto) Baso % (Auto) Lymph # (Auto) [place] # (Auto) Eos # (Auto) Baso # (Auto) Abs Immat Gran (auto) Absolute Neuts (auto) Absolute Nucleated RBC Nucleated RBC % (auto) Anion Gap 11 L Estim Creat Clear Calc 21.7 Estimated GFR 13 POC Glucose 97 Fasting Glucose 99 Calcium 9.0 Total Bilirubin < 0.2 AST 16 ALT 13 Alkaline Phosphatase 50 Total Protein 3.9 L Albumin 1.9 L TSH 1.55 Assessment and Plan (1) Acute on chronic renal failure: Status: Acute Plan 66 year old male with a history of primary membranous nephropathy presents with overall body swelling and weight gain of 30 lb over the last 2 weeks.? He has been taking Aldactone and Torsemide? faithfully per his account.? In the emergency room, workup consistent with hypokalemia with potassium 2.9 which was repleted along with a creatinine of 4.1 night when somewhat improved over the last month.? BNP is 37. Also noted to have troponin 147 in the absence of chest pain Anasarca/ acute on chronic renal failure, with hx of Biopsy-proven membranous glomerular nephritis on IV Lasix drip 10 milligram/hour 700 mL negative in last 24 hours, will increase drip to 15 mg per hour,monitor renal function closely being followed by Nephrology if patient does not respond to diuretics then will need hemodialysis no evidence of acute CHF hypokalemia potassium 3 likely due to diuretics will aggressively replace and follow labs severe aortic stenosis echocardiogram showed stable EF 60-65%, abnormal diastolic dysfunction and severe aortic stenosis , patient seen by Dr. Messer he recommend outpatient workup and agree with current diuretics. MED on CKD worsening since 10/2021, creatinine 4.55 unchanged in last 48 hours follow BMP while being diuresed Elevated troponin in the setting of acute on chronic renal failure , elevated and flat no chest pain echo showed no wall motion abnormality, no further workup indicated. Diabetes 2 with Hypoglycemia hold home medications , blood sugars stable continue insulin sliding scale and ADA diet HTN continue amlodipine , BP stable hypothyroidism , TSH is stable DVT prophylaxis with heparin Full code Patient requires continued hospitalization for IV Lasix drip to treat generalized edema related to nephrotic syndrome with worsening renal function. Quality Stroke Does the patient have a stroke diagnosis?: No VTE Prior VTE?: No VTE Risk Level:: Medical - moderate - high VTE Device Contraindication: Treatment Not Indicated VTE Drug Contraindication: N/A - Med Ordered
[2022-01-01 11:39] VITALS: BP 130/67; PULSE 75; RESP 18; TEMP 36.7; O2SAT 97
[2022-01-01 11:51] LABS: Glucose, Whole Blood 106 mg/dL (60-115)
--- NOTE | 2022-01-01 12:19 | P.PNCA_ITS ---
Subjective Subjective Date of Service: 01/01/22 Interval history: Saying he is feeling better. Still volume overloaded. Physical Exam Vital Signs: Last Vital Signs Temp 98.0 F 01/01/22 11:39 Pulse 75 01/01/22 11:39 Resp 18 01/01/22 11:39 BP 130/67 01/01/22 11:39 Pulse Ox 97 01/01/22 11:39 O2 Del Method 01/01/22 11:39 BMI result Body Mass Index 39.3 GENERAL APPEARANCE: in no acute distress, pleasant. NECK: no carotid bruit, + jugular venous distention. SKIN: no suspicious lesions, warm and dry. HEART: no murmurs, regular rate and rhythm. LUNGS: clear to auscultation bilaterally. ABDOMEN: soft, nontender. EXTREMITIES: 2+ edema. PERIPHERAL PULSES: equal. NEUROLOGIC: No gross deficits, AAO X 3 Objective Labs and Meds Result diagrams: 01/01/22 05:57 01/01/22 05:57 Lab results: Laboratory Results - last 24 hr 12/31/21 12/31/21 01/01/22 15:34 20:21 05:57 WBC 6.5 RBC 3.22 L Hgb 10.3 L Hct 30.3 L MCV 94.1 MCH 32.0 MCHC 34.0 RDW 14.3 Plt Count 353 MPV 9.6 Immature Gran % (Auto) 0.9 H Neut % (Auto) 54.1 Lymph % (Auto) 29.2 [place] % (Auto) 9.7 Eos % (Auto) 5.2 H Baso % (Auto) 0.9 Lymph # (Auto) 1.9 [place] # (Auto) 0.6 Eos # (Auto) 0.3 Baso # (Auto) 0.1 Abs Immat Gran (auto) 0.06 H Absolute Neuts (auto) 3.5 Absolute Nucleated RBC 0.000 Nucleated RBC % (auto) 0.0 Sodium Potassium Chloride Carbon Dioxide Anion Gap BUN Creatinine Estim Creat Clear Calc Estimated GFR POC Glucose 119 H 130 H Fasting Glucose Calcium Total Bilirubin AST ALT Alkaline Phosphatase Total Protein Albumin TSH 01/01/22 01/01/22 01/01/22 05:57 07:17 11:36 WBC RBC Hgb Hct MCV MCH MCHC RDW Plt Count MPV Immature Gran % (Auto) Neut % (Auto) Lymph % (Auto) [place] % (Auto) Eos % (Auto) Baso % (Auto) Lymph # (Auto) [place] # (Auto) Eos # (Auto) Baso # (Auto) Abs Immat Gran (auto) Absolute Neuts (auto) Absolute Nucleated RBC Nucleated RBC % (auto) Sodium 139 Potassium 3.0 L Chloride 111 H Carbon Dioxide 20 L Anion Gap 11 L BUN 29 H Creatinine 4.55 H* Estim Creat Clear Calc 21.7 Estimated GFR 13 POC Glucose 97 106 Fasting Glucose 99 Calcium 9.0 Total Bilirubin < 0.2 AST 16 ALT 13 Alkaline Phosphatase 50 Total Protein 3.9 L Albumin 1.9 L TSH 1.55 Progress Note: A&P Assessment and plan (1) Aortic stenosis: Status: Acute (2) Hypertension: Status: Acute (3) Anasarca associated with disorder of kidney: Status: Acute Plan 66-year-old gentleman presenting with anasarca and has severe . On Lasix gtt. Continue diuresis. Hard to know currently how much is contributing to the presentation. It appears he had nephrotic syndrome before and nephro is following. As he improves we will discuss further work up for . Thank you for allowing me to participate in the care of your patient. Please feel free to contact me if you have any questions. Time Spent With Patient Time: Total time spent is greater than 50% in coordination of care (as documented) at patient's floor/unit and/or counseling patient: Progress Note: Quality Stroke Does the patient have a stroke diagnosis?: No Procedures Date of Service Date of Service: 01/01/22
[2022-01-01] MEDS: Furosemide 200 MG in 0.9 % Sodium Chloride 80 ML 7.5 MG IVCONT (12:22)
[2022-01-01 15:28] VITALS: BP 127/80; PULSE 77; RESP 18; TEMP 36.8; O2SAT 99
[2022-01-01 15:47] LABS: Glucose, Whole Blood 139 mg/dL (60-115)
[2022-01-01] MEDS: 0.9 % Sodium Chloride Flush 3 ML SYRINGE IVFLUSH ×2 (17:01→19:39)
[2022-01-01 19:35] VITALS: BP 141/78; PULSE 80; RESP 20; TEMP 37.1; O2SAT 97
[2022-01-01 20:12] LABS: Glucose, Whole Blood 145 mg/dL (60-115)
[2022-01-02] VITALS (7 sets, daily range): BP systolic 116–146; BP diastolic 58–77; PULSE 70–81; RESP 18–20; TEMP 36.2–37.2; O2SAT 98–99
[2022-01-02] MEDS: Furosemide 200 MG in 0.9 % Sodium Chloride 80 ML 7.5 MG IVCONT ×2 (00:51→15:22)
[2022-01-02] MEDS: Levothyroxine Sodium 75 MCG TABLET PO (05:53)
[2022-01-02 06:59] LABS: Anion Gap 10 (12-20); Blood Urea Nitrogen 30 mg/dL (9-16); Calcium 8.7 mg/dL (8.4-10.2); Carbon Dioxide 20 mmol/L (22-29); Chloride 111 mmol/L (96-108); Creatinine Clr Calc Pharmacy 21.1; Estimated Glomerular Filt Rate 13; Glucose Random 98 mg/dL (60-115); Potassium 3.7 mmol/L (3.3-5.1); Sodium 137 mmol/L (135-145)
[2022-01-02 07:46] LABS: Glucose, Whole Blood 95 mg/dL (60-115)
[2022-01-02] MEDS: Potassium Chloride ER 20 MEQ TAB.ER.PRT 60 MEQ PO ×3 (10:04→21:58)
[2022-01-02] MEDS: Atorvastatin Calcium 40 MG TABLET PO (10:04)
[2022-01-02] MEDS: amLODIPine Besylate 5 MG TABLET PO (10:04)
--- NOTE | 2022-01-02 11:34 | P.PNCA_ITS ---
Subjective Subjective Date of Service: 01/02/22 Interval history: On Lasix drip. He is saying that his swelling is improving. He is saying he wants to go home tomorrow. Creatinine has not changed significantly on the admission and clearly no improvement seen so far. Estimated GFR is 13. Physical Exam Vital Signs: Last Vital Signs Temp 97.3 F 01/02/22 11:27 Pulse 76 01/02/22 11:27 Resp 18 01/02/22 11:27 BP 122/75 01/02/22 11:27 Pulse Ox 98 01/02/22 11:27 O2 Del Method 01/02/22 11:27 BMI result Body Mass Index 39.3 GENERAL APPEARANCE: in no acute distress, pleasant. NECK: no carotid bruit, mild jugular venous distention. Positive hepatic jugular flux. SKIN: no suspicious lesions, warm and dry. HEART: Ejection systolic murmur aortic area with no 2nd heart sound, regular rate and rhythm. LUNGS: clear to auscultation bilaterally. ABDOMEN: soft, nontender. EXTREMITIES: 2+ edema at ankles. PERIPHERAL PULSES: equal. NEUROLOGIC: No gross deficits, AAO X 3 Objective Labs and Meds Result diagrams: 01/01/22 05:57 01/02/22 05:40 Lab results: Laboratory Results - last 24 hr 01/01/22 01/01/22 01/01/22 11:36 15:43 20:08 Sodium Potassium Chloride Carbon Dioxide Anion Gap BUN Creatinine Estim Creat Clear Calc Estimated GFR POC Glucose 106 139 H 145 H Random Glucose Calcium 01/02/22 01/02/22 05:40 07:16 Sodium 137 Potassium 3.7 D Chloride 111 H Carbon Dioxide 20 L Anion Gap 10 L BUN 30 H Creatinine 4.68 H* Estim Creat Clear Calc 21.1 Estimated GFR 13 POC Glucose 95 Random Glucose 98 Calcium 8.7 Progress Note: A&P Assessment and plan (1) Aortic stenosis: Status: Acute (2) Hypertension: Status: Acute (3) Acute on chronic renal failure: Status: Acute Plan Pleasant 66 year gentleman who is presenting with acute kidney injury on background of known nephrotic syndrome in the past for which he was given michell ximab. His echocardiography in this admission has shown evidence of severe aortic valve stenosis. He is on Lasix drip without any significant change in his creatinine. He reports that he is making more urine than at home but I's and O's are not documented correctly. Overall still fairly hypervolemic. Nephrology is following him closely. Unsure if is playing a diet role in this. He is presenting with diffuse anasarca which is likely due to underlying kidney issue. Also due to advanced kidney issues right now he is not in any shape to do any invasive procedures like coronary angiography which required before any aortic valve intervention surgical or transcatheter. We will for came up further as outpatient as kidney issues settle. Thank you for allowing me to participate in the care of your patient. Please feel free to contact me if you have any questions. Time Spent With Patient Time: Total time spent is greater than 50% in coordination of care (as documented) at patient's floor/unit and/or counseling patient: Progress Note: Quality Stroke Does the patient have a stroke diagnosis?: No Procedures Date of Service Date of Service: 01/02/22
[2022-01-02 11:55] LABS: Glucose, Whole Blood 103 mg/dL (60-115)
--- NOTE | 2022-01-02 12:27 | PM.PNNEP ---
Subjective Subjective Date of Service: 01/02/22 Interval history: Diuresing well Feels OK Cards note appreciated Physical Exam Vital Signs: Vital Signs: Last Vital Signs Temp 97.3 F 01/02/22 11:27 Pulse 76 01/02/22 11:27 Resp 18 01/02/22 11:27 BP 122/75 01/02/22 11:27 Pulse Ox 98 01/02/22 11:27 O2 Del Method 01/02/22 11:27 BMI result Body Mass Index 39.3 Const: Other: no acute distress Resp: Other: clear to auscultation bilaterally no rales rhonchi or wheezes Cardio: Other: no S4; positive S1-S2; no S3 2/6 systolic murmur best heard at the apex GI: Other: mildly edematous quiet bowel sounds : Other: mild scrotal edema Extrem: Other: pitting edema bilaterally Objective Data Labs CBC & Chem 7: 01/01/22 05:57 01/02/22 05:40 Labs: Laboratory Results - last 24 hr 01/01/22 01/01/22 01/02/22 15:43 20:08 05:40 Sodium 137 Potassium 3.7 D Chloride 111 H Carbon Dioxide 20 L Anion Gap 10 L BUN 30 H Creatinine 4.68 H* Estim Creat Clear Calc 21.1 Estimated GFR 13 POC Glucose 139 H 145 H Random Glucose 98 Calcium 8.7 01/02/22 01/02/22 07:16 11:24 Sodium Potassium Chloride Carbon Dioxide Anion Gap BUN Creatinine Estim Creat Clear Calc Estimated GFR POC Glucose 95 103 Random Glucose Calcium Procedures Date of Service Date of Service: 01/02/22 Assessment & Plan Assessment and plan (1) Acute on chronic renal failure: Status: Acute Plan ?66-year-old man with 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 ? Anemia Hypokalemia Severe RECOMMENDATION:? low-sodium diet. Keep Lasix drip 15mg an hour and keep him on negative fluid balance of about 2 L per 24 hours.? ? another dose of Rituxan.- will arrange as op if needed I suspect he is gradually progressing towards ESRD and he might require hemodialysis or ultrafiltration if he fails to respond to Lasix.? Replace K orally Time Spent With Patient Time: Total time spent is greater than 50% in coordination of care (as documented) at patient's floor/unit and/or counseling patient: Progress Note: Quality Stroke Does the patient have a stroke diagnosis?: No
--- NOTE | 2022-01-02 13:00 | MHC.CM.PN ---
NO PLAN FOR DISCHARGE. KIDNEY FUNCTION UNCHANGED
--- NOTE | 2022-01-02 13:25 | HO.PM.IMPN ---
Subjective Subjective Date of Service: 01/02/22 Interval History: feeling better, denies shortness of breath, feels significant improvement in swelling, no other acute issues overnight. 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 awake alert x3, no acute distress.? Neck? supple no JVD. CVS? regular rate rhythm, Respiratory lungs clear to auscultation, no respiratory distress, no wheeze, no rhonchi. Gastrointestinal abdomen soft, nontender, abdominal wall edema, bowel sounds audible, no guarding , no rigidity. Extremities? Significant decrease in bilateral pitting edema Neuro nonfocal Skin no rash psych appropriate affect Objective Data Active Medications Acetaminophen (Acetaminophen 325 Mg Tablet) 650 mg PO Q6H PRN PRN Reason: Pain, Mild (Pain Scale 1-3) Amlodipine Besylate (Amlodipine Besylate 5 Mg Tablet) 5 mg PO DAILY [facility]; Protocol Last Admin: 01/02/22 10:04 Dose: 5 mg Documented By: JEFF Atorvastatin Calcium (Atorvastatin Calcium 40 Mg Tablet) 40 mg PO DAILY [facility] Last Admin: 01/02/22 10:04 Dose: 40 mg Documented By: JEFF Dextrose (Dextrose 50 % 25 Gm/50 Ml Syringe) 25 gm IVPUSH Q15M PRN; Protocol PRN Reason: per Hypoglycemia Standing Ord. Glucose (Glucose Gel 15 Gm Gel..Gram.) 15 gm PO Q15M PRN; Protocol PRN Reason: per Hypoglycemia Standing Ord. Heparin Sodium (Porcine) (Heparin Sodium,Porcine 5,000 Unit/Ml Vial) 5,000 unit SUBCUT Q12H [facility] Last Admin: 01/02/22 00:52 Dose: Not Given Documented By: GAIL Non-Admin Reason: Patient Refused Furosemide 200 mg/ Sodium (Chloride) 100 mls @ 7.5 mls/hr IVCONT .[id number] [facility] Last Admin: 01/02/22 00:51 Dose: 15 mg/hr, 7.5 mls/hr Documented By: GAIL Insulin Human Lispro (Insulin Lispro 100 Unit/Ml 3 Ml Vial) 0 unit SUBCUT QIDACHS [facility]; Protocol Last Admin: 01/02/22 11:56 Dose: Not Given Documented By: JEFF Non-Admin Reason: No Insulin Coverage Levothyroxine Sodium (Levothyroxine Sodium 75 Mcg Tablet) 75 mcg PO DAILY@0600 [facility] Last Admin: 01/02/22 05:53 Dose: 75 mcg Documented By: GAIL Ondansetron HCl (Ondansetron Hcl 4 Mg/2 Ml Vial) 4 mg IVPUSH Q8H PRN PRN Reason: Nausea and Vomiting Pharmacy Consult (Consult Rx Perform Med Rec) 1 each MISCELLANE ONCE PRN PRN Reason: Consult order Potassium Chloride (Potassium Chloride Er 20 Meq Tab.Er.Prt) 60 meq PO TID [facility] Last Admin: 01/02/22 10:04 Dose: 60 meq Documented By: JEFF Sodium Chloride (0.9 % Sodium Chloride Flush 3 Ml Syringe) 3 ml IVFLUSH QSHIFT [facility] Last Admin: 01/02/22 10:04 Dose: Not Given Documented By: JEFF Non-Admin Reason: IV Running Labs CBC & Chem 7: 01/01/22 05:57 01/02/22 05:40 Labs: Laboratory Results - last 24 hr 01/01/22 01/01/22 01/02/22 15:43 20:08 05:40 Anion Gap 10 L Estim Creat Clear Calc 21.1 Estimated GFR 13 POC Glucose 139 H 145 H Random Glucose 98 Calcium 8.7 01/02/22 01/02/22 07:16 11:24 Anion Gap Estim Creat Clear Calc Estimated GFR POC Glucose 95 103 Random Glucose Calcium Assessment and Plan (1) Acute on chronic renal failure: Status: Acute Plan 66 year old male with a history of primary membranous nephropathy presents with overall body swelling and weight gain of 30 lb over the last 2 weeks.? He has been taking Aldactone and Torsemide? faithfully per his account.? In the emergency room, workup consistent with hypokalemia with potassium 2.9 which was repleted along with a creatinine of 4.1 night when somewhat improved over the last month.? BNP is 37. Also noted to have troponin 147 in the absence of chest pain Anasarca/ acute on chronic renal failure, with hx of Biopsy-proven membranous glomerular nephritis on IV Lasix drip 15 milligram/hour / output not monitored, clinically less edematous case discussed with Nephrology they recommend to continue IV Lasix for next 24 hours and transition to by mouth torsemide 100 mg daily being followed by Nephrology if patient does not respond to diuretics then will need hemodialysis no evidence of acute CHF hypokalemia repleted potassium improved to 3.7 severe aortic stenosis echocardiogram showed stable EF 60-65%, abnormal diastolic dysfunction and severe aortic stenosis , patient seen by Dr. Messer he recommend outpatient workup and agree with current diuretics. MED on CKD worsening since 10/2021, creatinine bumped to 4.68 from 4.55 follow BMP while being diuresed, will need close outpatient Nephrology follow-up Elevated troponin in the setting of acute on chronic renal failure , elevated and flat no chest pain echo showed no wall motion abnormality, no further workup indicated. Diabetes 2 with Hypoglycemia hold home medications , blood sugars stable continue insulin sliding scale and ADA diet HTN continue amlodipine , BP stable hypothyroidism , TSH is stable DVT prophylaxis with heparin Full code Patient requires continued hospitalization for IV Lasix drip to treat generalized edema related to nephrotic syndrome with worsening renal function. Quality Stroke Does the patient have a stroke diagnosis?: No VTE Prior VTE?: No VTE Risk Level:: Medical - moderate - high VTE Device Contraindication: Treatment Not Indicated VTE Drug Contraindication: N/A - Med Ordered
[2022-01-02] MEDS: Heparin Sodium,Porcine 5,000 UNIT/ML VIAL 5000 UNIT SUBCUT (14:33)
[2022-01-02 16:44] LABS: Glucose, Whole Blood 92 mg/dL (60-115)
[2022-01-02 19:00] LABS: Glucose, Whole Blood 134 mg/dL (60-115)
[2022-01-03 03:16] VITALS: BP 154/98; PULSE 82; RESP 18; TEMP 36.3; O2SAT 98
[2022-01-03] MEDS: Heparin Sodium,Porcine 5,000 UNIT/ML VIAL 5000 UNIT SUBCUT ×2 (03:47→15:03)
[2022-01-03] MEDS: Furosemide 200 MG in 0.9 % Sodium Chloride 80 ML 7.5 MG IVCONT ×2 (03:49→16:32)
[2022-01-03] MEDS: Levothyroxine Sodium 75 MCG TABLET PO (05:51)
[2022-01-03 07:14] VITALS: BP 135/68; PULSE 70; RESP 18; TEMP 36.7; O2SAT 100
[2022-01-03 07:17] LABS: Anion Gap 10 (12-20); Blood Urea Nitrogen 23 mg/dL (9-16); Calcium 8.6 mg/dL (8.4-10.2); Carbon Dioxide 19 mmol/L (22-29); Chloride 111 mmol/L (96-108); Creatinine Clr Calc Pharmacy 26.9; Estimated Glomerular Filt Rate 17; Glucose Random 92 mg/dL (60-115); Potassium 3.9 mmol/L (3.3-5.1); Sodium 136 mmol/L (135-145)
[2022-01-03 07:49] LABS: Glucose, Whole Blood 92 mg/dL (60-115)
[2022-01-03 08:00] VITALS: BP 135/68; PULSE 76; RESP 18; TEMP 37.1
[2022-01-03] MEDS: Atorvastatin Calcium 40 MG TABLET PO (08:26)
[2022-01-03] MEDS: amLODIPine Besylate 5 MG TABLET PO (08:26)
[2022-01-03] MEDS: Potassium Chloride ER 20 MEQ TAB.ER.PRT 60 MEQ PO ×3 (08:26→20:46)
[2022-01-03 11:15] LABS: Glucose, Whole Blood 110 mg/dL (60-115)
[2022-01-03 12:00] VITALS: BP 125/67; PULSE 84; RESP 18; TEMP 36.5; O2SAT 100
--- NOTE | 2022-01-03 13:12 | P.PNIM_ITS ---
Subjective Subjective Date of Service: 01/03/22 Interval History: feels better no shortness of breath, no chest pain, no palpitation no lightheadedness or dizziness feels lower extremity edema significantly improved. 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 awake alert x3, no acute distress.? Neck? supple no JVD. CVS? regular rate rhythm, Respiratory lungs clear to auscultation, no respiratory distress, no wheeze, no rhonchi. Gastrointestinal abdomen soft, nontender, abdominal wall edema, bowel sounds audible, no guarding , no rigidity. Extremities?? Significant decrease in bilateral pitting edema Neuro nonfocal Skin no rash psych appropriate affect Objective Data Active Medications Acetaminophen (Acetaminophen 325 Mg Tablet) 650 mg PO Q6H PRN PRN Reason: Pain, Mild (Pain Scale 1-3) Amlodipine Besylate (Amlodipine Besylate 5 Mg Tablet) 5 mg PO DAILY [facility]; Protocol Last Admin: 01/03/22 08:26 Dose: 5 mg Documented By: ANEL Atorvastatin Calcium (Atorvastatin Calcium 40 Mg Tablet) 40 mg PO DAILY [facility] Last Admin: 01/03/22 08:26 Dose: 40 mg Documented By: ANEL Dextrose (Dextrose 50 % 25 Gm/50 Ml Syringe) 25 gm IVPUSH Q15M PRN; Protocol PRN Reason: per Hypoglycemia Standing Ord. Glucose (Glucose Gel 15 Gm Gel..Gram.) 15 gm PO Q15M PRN; Protocol PRN Reason: per Hypoglycemia Standing Ord. Heparin Sodium (Porcine) (Heparin Sodium,Porcine 5,000 Unit/Ml Vial) 5,000 unit SUBCUT Q12H [facility] Last Admin: 01/03/22 03:47 Dose: 5,000 unit Documented By: CARLA Furosemide 200 mg/ Sodium (Chloride) 100 mls @ 7.5 mls/hr IVCONT .[id number] [facility] Last Admin: 01/03/22 03:49 Dose: 15 mg/hr, 7.5 mls/hr Documented By: CARLA Insulin Human Lispro (Insulin Lispro 100 Unit/Ml 3 Ml Vial) 0 unit SUBCUT QIDACHS [facility]; Protocol Last Admin: 01/03/22 12:07 Dose: Not Given Documented By: ANEL Non-Admin Reason: No Insulin Coverage Levothyroxine Sodium (Levothyroxine Sodium 75 Mcg Tablet) 75 mcg PO DAILY@0600 [facility] Last Admin: 01/03/22 05:51 Dose: 75 mcg Documented By: CARLA Ondansetron HCl (Ondansetron Hcl 4 Mg/2 Ml Vial) 4 mg IVPUSH Q8H PRN PRN Reason: Nausea and Vomiting Pharmacy Consult (Consult Rx Perform Med Rec) 1 each MISCELLANE ONCE PRN PRN Reason: Consult order Potassium Chloride (Potassium Chloride Er 20 Meq Tab.Er.Prt) 60 meq PO TID [facility] Last Admin: 01/03/22 08:26 Dose: 60 meq Documented By: ANEL Sodium Chloride (0.9 % Sodium Chloride Flush 3 Ml Syringe) 3 ml IVFLUSH QSHIFT [facility] Last Admin: 01/03/22 07:13 Dose: Not Given Documented By: ANLE Non-Admin Reason: IV Running Labs CBC & Chem 7: 01/01/22 05:57 01/03/22 05:50 Labs: Laboratory Results - last 24 hr 01/02/22 01/02/22 01/03/22 16:41 18:45 05:50 Anion Gap 10 L Estim Creat Clear Calc 26.9 Estimated GFR 17 POC Glucose 92 134 H Random Glucose 92 Calcium 8.6 01/03/22 01/03/22 07:12 11:07 Anion Gap Estim Creat Clear Calc Estimated GFR POC Glucose 92 110 Random Glucose Calcium Assessment and Plan (1) Acute on chronic renal failure: Status: Acute Plan 66 year old male with a history of primary membranous nephropathy presents with overall body swelling and weight gain of 30 lb over the last 2 weeks.? He has been taking Aldactone and Torsemide? faithfully per his account.? In the emergency room, workup consistent with hypokalemia with potassium 2.9 which was repleted along with a creatinine of 4.1 night when somewhat improved over the last month.? BNP is 37. Also noted to have troponin 147 in the absence of chest pain Anasarca/ acute on chronic renal failure, with hx of Biopsy-proven membranous glomerular nephritis on IV Lasix drip 15 milligram/hour / output not monitored, clinically less edematous case discussed with Nephrology they recommend to continue IV Lasix for next 24 hours since creatinine improving and clinically patient doing better and transition to by mouth torsemide 100 mg daily no evidence of acute CHF hypokalemia repleted potassium improved to 3.9. on potassium supplement 60 mg t.i.d. severe aortic stenosis echocardiogram showed stable EF 60-65%, abnormal diastolic dysfunction and severe aortic stenosis , patient seen by Dr. Messer he recommend outpatient workup and agree with current diuretics. MED on CKD worsening since 10/2021, creatinine bumped trended down to baseline 3.68 from 4.68 on admission, follow BMP while being diuresed, will need close outpatient Nephrology follow-up Elevated troponin in the setting of acute on chronic renal failure , elevated and flat no chest pain, echo showed no wall motion abnormality, no further workup indicated. Diabetes 2 with Hypoglycemia hold home medications , blood sugars stable continue insulin sliding scale and ADA diet HTN continue amlodipine , BP stable hypothyroidism , TSH is stable DVT prophylaxis with heparin Full code Patient requires continued hospitalization for IV Lasix drip to treat generalized edema related to nephrotic syndrome with worsening renal function. Quality Stroke Does the patient have a stroke diagnosis?: No VTE Prior VTE?: No VTE Risk Level:: Medical - moderate - high VTE Device Contraindication: Treatment Not Indicated VTE Drug Contraindication: N/A - Med Ordered
--- NOTE | 2022-01-03 13:15 | PM.PNNEP ---
Subjective Subjective Date of Service: 01/03/22 Interval history: Events noted Cr better Physical Exam Vital Signs: Vital Signs: Last Vital Signs Temp 97.7 F 01/03/22 12:00 Pulse 84 01/03/22 12:00 Resp 18 01/03/22 12:00 BP 125/67 01/03/22 12:00 Pulse Ox 100 01/03/22 12:00 O2 Del Method 01/03/22 12:00 BMI result Body Mass Index 39.3 Const: Other: no acute distress Resp: Other: clear to auscultation bilaterally no rales rhonchi or wheezes Cardio: Other: no S4; positive S1-S2; no S3 2/6 systolic murmur best heard at the apex GI: Other: mildly edematous quiet bowel sounds : Other: mild scrotal edema Extrem: Other: pitting edema bilaterally Objective Data Labs CBC & Chem 7: 01/01/22 05:57 01/03/22 05:50 Labs: Laboratory Results - last 24 hr 01/02/22 01/02/22 01/03/22 16:41 18:45 05:50 Sodium 136 Potassium 3.9 Chloride 111 H Carbon Dioxide 19 L Anion Gap 10 L BUN 23 H Creatinine 3.68 H Estim Creat Clear Calc 26.9 Estimated GFR 17 POC Glucose 92 134 H Random Glucose 92 Calcium 8.6 01/03/22 01/03/22 07:12 11:07 Sodium Potassium Chloride Carbon Dioxide Anion Gap BUN Creatinine Estim Creat Clear Calc Estimated GFR POC Glucose 92 110 Random Glucose Calcium Procedures Date of Service Date of Service: 01/03/22 Assessment & Plan Assessment and plan (1) Acute on chronic renal failure: Status: Acute Plan ?66-year-old man with 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 ? Anemia Hypokalemia Severe RECOMMENDATION:? low-sodium diet. Keep Lasix drip 15mg an hour and keep him on negative fluid balance of about 2 L per 24 hours.? ? another dose of Rituxan.- will arrange as op if needed I suspect he is gradually progressing towards ESRD and he might require hemodialysis or ultrafiltration if he fails to respond to Lasix.? Replace K orally as needed Time Spent With Patient Time: Total time spent is greater than 50% in coordination of care (as documented) at patient's floor/unit and/or counseling patient: Progress Note: Quality Stroke Does the patient have a stroke diagnosis?: No
[2022-01-03 15:06] VITALS: BP 118/71; PULSE 90; RESP 20; TEMP 37.1; O2SAT 99
[2022-01-03 15:57] LABS: Glucose, Whole Blood 123 mg/dL (60-115)
[2022-01-03 20:00] VITALS: BP 118/75; PULSE 88; RESP 18; TEMP 37; O2SAT 100
[2022-01-03 20:20] LABS: Glucose, Whole Blood 121 mg/dL (60-115)
[2022-01-04] VITALS (7 sets, daily range): BP systolic 118–147; BP diastolic 62–77; PULSE 72–81; RESP 17–18; TEMP 36.3–36.6; O2SAT 98–100
[2022-01-04] MEDS: Heparin Sodium,Porcine 5,000 UNIT/ML VIAL 5000 UNIT SUBCUT ×2 (00:55→14:47)
[2022-01-04] MEDS: Levothyroxine Sodium 75 MCG TABLET PO (06:06)
[2022-01-04] MEDS: Furosemide 200 MG in 0.9 % Sodium Chloride 80 ML 7.5 MG IVCONT (06:20)
[2022-01-04 07:33] LABS: Anion Gap 11 (12-20); Blood Urea Nitrogen 33 mg/dL (9-16); Calcium 8.7 mg/dL (8.4-10.2); Carbon Dioxide 18 mmol/L (22-29); Chloride 113 mmol/L (96-108); Creatinine Clr Calc Pharmacy 25.7; Estimated Glomerular Filt Rate 16; Glucose Random 86 mg/dL (60-115); Potassium 4.6 mmol/L (3.3-5.1); Sodium 137 mmol/L (135-145)
[2022-01-04 08:12] LABS: Glucose, Whole Blood 79 mg/dL (60-115)
[2022-01-04] MEDS: Atorvastatin Calcium 40 MG TABLET PO (09:37)
[2022-01-04] MEDS: 0.9 % Sodium Chloride Flush 3 ML SYRINGE IVFLUSH ×2 (09:37→17:05)
[2022-01-04] MEDS: Potassium Chloride ER 20 MEQ TAB.ER.PRT 60 MEQ PO ×3 (09:37→21:20)
[2022-01-04] MEDS: amLODIPine Besylate 5 MG TABLET PO (09:37)
--- NOTE | 2022-01-04 10:08 | PM.PNCARD ---
Subjective Subjective Date of Service: 01/04/22 Interval history: He is saying that he is feeling fine. Edema is improving. Physical Exam Vital Signs: Last Vital Signs Temp 97.6 F 01/04/22 07:57 Pulse 81 01/04/22 07:57 Resp 17 01/04/22 07:57 BP 147/71 H 01/04/22 07:57 Pulse Ox 100 01/04/22 07:57 O2 Del Method 01/04/22 07:57 BMI result Body Mass Index 39.3 GENERAL APPEARANCE: in no acute distress, pleasant. NECK: no carotid bruit, no significant JVD. SKIN: no suspicious lesions, warm and dry. HEART: Ejection systolic murmur aortic area with no 2nd heart sound, regular rate and rhythm. LUNGS: clear to auscultation bilaterally. ABDOMEN: soft, nontender. EXTREMITIES: 1+ edema at ankles. PERIPHERAL PULSES: equal. NEUROLOGIC: No gross deficits, AAO X 3 Objective Labs and Meds Result diagrams: 01/01/22 05:57 01/04/22 05:47 Lab results: Laboratory Results - last 24 hr 01/03/22 01/03/22 01/03/22 11:07 15:54 20:04 Sodium Potassium Chloride Carbon Dioxide Anion Gap BUN Creatinine Estim Creat Clear Calc Estimated GFR POC Glucose 110 123 H 121 H Random Glucose Calcium 01/04/22 01/04/22 05:47 08:00 Sodium 137 Potassium 4.6 Chloride 113 H Carbon Dioxide 18 L Anion Gap 11 L BUN 33 H Creatinine 3.85 H Estim Creat Clear Calc 25.7 Estimated GFR 16 POC Glucose 79 Random Glucose 86 Calcium 8.7 Progress Note: A&P Assessment and plan (1) Aortic stenosis: Status: Acute (2) Acute on chronic renal failure: Status: Acute Plan [age] year gentleman with new diagnosis of severe aortic valve stenosis. He has background of nephrotic syndrome and presented for diffuse anasarca and significant kidney injury. I think he has his incidental finding currently. He is being diuresed for hypervolemia and his creatinine has been stable. Nephrology is following closely. I think aortic stenosis workup will be done as outpatient. I am not sure is playing a significant role in his presentation currently or not. Overall his visitation is related to his renal issues. Thank you for allowing me to participate in the care of your patient. Please feel free to contact me if you have any questions. Time Spent With Patient Time: Total time spent is greater than 50% in coordination of care (as documented) at patient's floor/unit and/or counseling patient: Progress Note: Quality Stroke Does the patient have a stroke diagnosis?: No Procedures Date of Service Date of Service: 01/04/22
[2022-01-04 11:51] LABS: Glucose, Whole Blood 88 mg/dL (60-115)
--- NOTE | 2022-01-04 12:08 | HO.PM.IMPN ---
Subjective Subjective Date of Service: 01/04/22 Interval History: Edema improving No pain No lightheadedness Review of Systems Review of Systems: Yes all other systems are reviewed and are negative Physical Exam Vital Signs: Vital Signs: Last Vital Signs Temp 97.6 F 01/04/22 07:57 Pulse 81 01/04/22 07:57 Resp 17 01/04/22 07:57 BP 147/71 H 01/04/22 07:57 Pulse Ox 100 01/04/22 07:57 O2 Del Method 01/04/22 07:57 BMI result Body Mass Index 39.3 Gen: in no acute distress HEENT: sclera anicteric, moist mucus membranes Neck: supple Lungs: clear to auscultation bilaterally Heart: regular rate and rhythm, no murmurs Abd: soft, non-tender, non-distended Ext: 2+ BLE edema Skin: warm/well-perfused Neuro: alert and oriented x3, no focal findings Psych: appropriate affect Objective Data Active Medications Acetaminophen (Acetaminophen 325 Mg Tablet) 650 mg PO Q6H PRN PRN Reason: Pain, Mild (Pain Scale 1-3) Amlodipine Besylate (Amlodipine Besylate 5 Mg Tablet) 5 mg PO DAILY [facility]; Protocol Last Admin: 01/04/22 09:37 Dose: 5 mg Documented By: CARMEL Atorvastatin Calcium (Atorvastatin Calcium 40 Mg Tablet) 40 mg PO DAILY [facility] Last Admin: 01/04/22 09:37 Dose: 40 mg Documented By: CARMEL Dextrose (Dextrose 50 % 25 Gm/50 Ml Syringe) 25 gm IVPUSH Q15M PRN; Protocol PRN Reason: per Hypoglycemia Standing Ord. Glucose (Glucose Gel 15 Gm Gel..Gram.) 15 gm PO Q15M PRN; Protocol PRN Reason: per Hypoglycemia Standing Ord. Heparin Sodium (Porcine) (Heparin Sodium,Porcine 5,000 Unit/Ml Vial) 5,000 unit SUBCUT Q12H [facility] Last Admin: 01/04/22 00:55 Dose: 5,000 unit Documented By: CARLA Furosemide 200 mg/ Sodium (Chloride) 100 mls @ 7.5 mls/hr IVCONT .[id number] [facility] Last Admin: 01/04/22 06:20 Dose: 15 mg/hr, 7.5 mls/hr Documented By: CARLA Insulin Human Lispro (Insulin Lispro 100 Unit/Ml 3 Ml Vial) 0 unit SUBCUT QIDACHS [facility]; Protocol Last Admin: 01/04/22 11:37 Dose: Not Given Documented By: CARMEL Non-Admin Reason: No Insulin Coverage Levothyroxine Sodium (Levothyroxine Sodium 75 Mcg Tablet) 75 mcg PO DAILY@0600 [facility] Last Admin: 01/04/22 06:06 Dose: 75 mcg Documented By: CARLA Ondansetron HCl (Ondansetron Hcl 4 Mg/2 Ml Vial) 4 mg IVPUSH Q8H PRN PRN Reason: Nausea and Vomiting Pharmacy Consult (Consult Rx Perform Med Rec) 1 each MISCELLANE ONCE PRN PRN Reason: Consult order Potassium Chloride (Potassium Chloride Er 20 Meq Tab.Er.Prt) 60 meq PO TID [facility] Last Admin: 01/04/22 09:37 Dose: 60 meq Documented By: CARMEL Sodium Chloride (0.9 % Sodium Chloride Flush 3 Ml Syringe) 3 ml IVFLUSH QSHIFT [facility] Last Admin: 01/04/22 09:37 Dose: 3 ml Documented By: CARMEL Labs CBC & Chem 7: 01/01/22 05:57 01/04/22 05:47 Labs: Laboratory Results - last 24 hr 01/03/22 01/03/22 01/04/22 15:54 20:04 05:47 Anion Gap 11 L Estim Creat Clear Calc 25.7 Estimated GFR 16 POC Glucose 123 H 121 H Random Glucose 86 Calcium 8.7 01/04/22 01/04/22 08:00 11:33 Anion Gap Estim Creat Clear Calc Estimated GFR POC Glucose 79 88 Random Glucose Calcium Assessment and Plan (1) Acute on chronic renal failure: Status: Acute Plan hospital d#7 66yo M with primary membranous nephropathy presenting with edema + 30 lb/2 wk weight gain, admitted for diuresis + hypokalemia + MED/CKD # anasarca # MED/CKD3 - diuresed with IV furosemide gtt. transition to PO bumetanide 40 mg bid per discussion with Nephrology. monitor electrlytes # hypokalemeia - repleted, continue PO supplementation # severe - seen by Cardiology, outpt workup # elevated Tn-I - due to renal insufficiency, no WMA on TTE, no chest pain # DM2 with hypoglycemia - hold oral hypoglycemics [sitagliptin + glipizide], give correction-dose lispro if needed # HTN - conitnue amlodipine # hypothyroidism - continue LT4 # VTE ppx: UFH In my clinical judgment, the patient requires continued hospitalization for the following reasons: MED, electrolyte monitoring as he transitions off furosemide IV infusion Quality Stroke Does the patient have a stroke diagnosis?: No VTE Prior VTE?: No VTE Risk Level:: Medical - moderate - high VTE Device Contraindication: Treatment Not Indicated VTE Drug Contraindication: N/A - Med Ordered
--- NOTE | 2022-01-04 12:11 | PM.PNNEP ---
Subjective Subjective Date of Service: 01/04/22 Interval history: Doing much better Nonoliguric Physical Exam Vital Signs: Vital Signs: Last Vital Signs Temp 97.6 F 01/04/22 07:57 Pulse 81 01/04/22 07:57 Resp 17 01/04/22 07:57 BP 147/71 H 01/04/22 07:57 Pulse Ox 100 01/04/22 07:57 O2 Del Method 01/04/22 07:57 BMI result Body Mass Index 39.3 Const: Other: no acute distress Resp: Other: clear to auscultation bilaterally no rales rhonchi or wheezes Cardio: Other: no S4; positive S1-S2; no S3 2/6 systolic murmur best heard at the apex GI: Other: mildly edematous quiet bowel sounds : Other: mild scrotal edema Extrem: Other: pitting edema bilaterally Objective Data Labs CBC & Chem 7: 01/01/22 05:57 01/04/22 05:47 Labs: Laboratory Results - last 24 hr 01/03/22 01/03/22 01/04/22 15:54 20:04 05:47 Sodium 137 Potassium 4.6 Chloride 113 H Carbon Dioxide 18 L Anion Gap 11 L BUN 33 H Creatinine 3.85 H Estim Creat Clear Calc 25.7 Estimated GFR 16 POC Glucose 123 H 121 H Random Glucose 86 Calcium 8.7 01/04/22 01/04/22 08:00 11:33 Sodium Potassium Chloride Carbon Dioxide Anion Gap BUN Creatinine Estim Creat Clear Calc Estimated GFR POC Glucose 79 88 Random Glucose Calcium Procedures Date of Service Date of Service: 01/04/22 Assessment & Plan Assessment and plan (1) Acute on chronic renal failure: Status: Acute Plan ?66-year-old man with 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 ? Anemia Hypokalemia Severe RECOMMENDATION:? low-sodium diet. Agree with switching to Torsemide 60 mg BID ? another dose of Rituxan.- will arrange as op if needed I suspect he is gradually progressing towards ESRD and he might require hemodialysis or ultrafiltration if he fails to respond to Lasix.? Replace K orally as needed Possible DC tomorrow Time Spent With Patient Time: Total time spent is greater than 50% in coordination of care (as documented) at patient's floor/unit and/or counseling patient: Progress Note: Quality Stroke Does the patient have a stroke diagnosis?: No
[2022-01-04 16:11] LABS: Glucose, Whole Blood 116 mg/dL (60-115)
[2022-01-04] MEDS: Torsemide 20 MG TABLET 40 MG PO (17:04)
[2022-01-04 19:56] LABS: Glucose, Whole Blood 194 mg/dL (60-115)
[2022-01-05] MEDS: Heparin Sodium,Porcine 5,000 UNIT/ML VIAL 5000 UNIT SUBCUT (00:30)
[2022-01-05] MEDS: 0.9 % Sodium Chloride Flush 3 ML SYRINGE IVFLUSH ×2 (01:46→08:32)
[2022-01-05 03:19] VITALS: BP 129/65; PULSE 68; RESP 18; TEMP 36.4; O2SAT 99
[2022-01-05] MEDS: Levothyroxine Sodium 75 MCG TABLET PO (05:57)
[2022-01-05 07:32] VITALS: BP 132/75; PULSE 68; RESP 18; TEMP 36.7; O2SAT 100
[2022-01-05 07:51] LABS: Anion Gap 12 (12-20); Blood Urea Nitrogen 31 mg/dL (9-16); Carbon Dioxide 15 mmol/L (22-29); Chloride 113 mmol/L (96-108); Estimated Glomerular Filt Rate 15; Glucose Random 109 mg/dL (60-115); Magnesium 2.3 mg/dL (1.6-2.6); Potassium 5.2 mmol/L (3.3-5.1); Sodium 135 mmol/L (135-145)
[2022-01-05 07:54] LABS: Glucose, Whole Blood 99 mg/dL (60-115)
[2022-01-05] MEDS: Torsemide 20 MG TABLET 40 MG PO (08:30)
[2022-01-05] MEDS: Atorvastatin Calcium 40 MG TABLET PO (08:30)
[2022-01-05] MEDS: amLODIPine Besylate 5 MG TABLET PO (08:30)
--- NOTE | 2022-01-05 09:33 | PM.PNNEP ---
Subjective Subjective Date of Service: 01/05/22 Interval history: Events noted Feels better Physical Exam Vital Signs: Vital Signs: Last Vital Signs Temp 98.1 F 01/05/22 07:32 Pulse 68 01/05/22 07:32 Resp 18 01/05/22 07:32 BP 132/75 01/05/22 07:32 Pulse Ox 100 01/05/22 07:32 O2 Del Method 01/05/22 07:32 BMI result Body Mass Index 39.3 Const: Other: no acute distress Resp: Other: clear to auscultation bilaterally no rales rhonchi or wheezes Cardio: Other: no S4; positive S1-S2; no S3 2/6 systolic murmur best heard at the apex GI: Other: mildly edematous quiet bowel sounds : Other: mild scrotal edema Extrem: Other: pitting edema bilaterally Objective Data Labs CBC & Chem 7: 01/01/22 05:57 01/05/22 06:44 Labs: Laboratory Results - last 24 hr 01/04/22 01/04/22 01/04/22 11:33 16:03 18:53 Sodium Potassium Chloride Carbon Dioxide Anion Gap BUN Creatinine Estim Creat Clear Calc Estimated GFR POC Glucose 88 116 H 194 H Random Glucose Calcium Magnesium 01/05/22 01/05/22 06:44 07:30 Sodium 135 Potassium 5.2 H Chloride 113 H Carbon Dioxide 15 L Anion Gap 12 BUN 31 H Creatinine 4.12 H* Estim Creat Clear Calc 24.0 Estimated GFR 15 POC Glucose 99 Random Glucose 109 Calcium 9.0 Magnesium 2.3 Procedures Date of Service Date of Service: 01/05/22 Assessment & Plan Assessment and plan (1) Acute on chronic renal failure: Status: Acute Plan ?66-year-old man with 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 ? Anemia Hyperkalemia Severe RECOMMENDATION:? low-sodium diet. Agree with switching to Torsemide 60 mg BID ? another dose of Rituxan.- will arrange as op if needed I suspect he is gradually progressing towards ESRD and he might require hemodialysis or ultrafiltration if he fails to respond to Lasix.? DC potassium Possible DC Time Spent With Patient Time: Total time spent is greater than 50% in coordination of care (as documented) at patient's floor/unit and/or counseling patient: Progress Note: Quality Stroke Does the patient have a stroke diagnosis?: No
--- NOTE | 2022-01-05 10:05 | P.DS_ITS ---
DS: Providers Provider Date of Service: 01/05/22 Date of admission: 12/29/21 13:45 Date of discharge: 01/05/22 Primary care physician: Segundo Tapia MD Consults: 12/29/21 13:47 Consult to Nephrology Routine Consulting Provider: Davon Forte Reason for consultation: AOCRF Has provider been notified: No 12/31/21 08:33 Consult to Cardiology Routine Consulting Provider: Chris Messer Reason for consultation: aortic stenosis/anasarca Has provider been notified: No DS: Diagnosis Discharge Diagnosis (1) Acute on chronic renal failure: Status: Acute (2) Membranous nephrosis: Status: Acute (3) Anasarca associated with disorder of kidney: Status: Acute (4) Acute hypokalemia: Status: Acute (5) Hypoglycemia secondary to sulfonylurea: Status: Acute (6) Aortic stenosis: Status: Acute DS: Summary Hospital Course Hospital Course: from admission history and physical by Brian Willson, DO: Date of Service: 12/29/21 Chief Complaint: swelling with weight gain 66 years old male with past medical history significant for DM, nephrotic syndrome patient came in for evaluation of feeling dizzy, and gait about 30 lb over the past 2 weeks, severe edema in the legs and abdomen and scrotum.? Patient is known to have chronic renal insufficiency never needed dialysis in the past. patient carries diagnosis of primary membranous nephropathy and has followed with Dr. Ribeiro in the past.? This 66yo M with primary membranous nephropathy presentedwith edema and estimated 30 lb/2 wk weight gain. He was admitted to [facility] for diuresis complicated by hypokalemia + MED/CKD. Hospital course by problem: # anasarca # MED/CKD3 - Diuresed with IV furosemide gtt and followed by Nephrology. Transitioned to PO bumetanide 40 mg bid. Will need to recheck electrolytes [BMP] and follow up with Dr Ribeiro and Reanna's group in 1 week for consideration of rituximab infusion. # hypokalemia - Repleted IV and PO and no longer needed at discharge. Recheck BMP as above. # severe - Demonstrated on echocardiograpm. Seen by Cardiology, who recommended outpatient workup. # elevated Tn-I - Due to renal insufficiency. No angina and no EKG changes; TTE without wall motion abnormalities. # DM2 with hypoglycemia - Recent A1c only 6.2. Oral hypoglycemics [sitagliptin and glipizide] discontinued and fingerstick blood glucoses were in acceptable range. Time Spent with Patient Time attestation: Total time spent providing and/or coordinating discharge services: 40 Discharge coordination time: Greater than 30 minutes Quality: Safe Use of Opioids Does Pt have an Active Cancer Diagnosis on the Problem List?: No Quality: Stroke Does the patient have a stroke diagnosis?: No Physical Exam Vital Signs: Vital Signs: Last Vital Signs Temp 98.1 F 01/05/22 07:32 Pulse 68 01/05/22 07:32 Resp 18 01/05/22 07:32 BP 132/75 01/05/22 07:32 Pulse Ox 100 01/05/22 07:32 O2 Del Method 01/05/22 07:32 BMI result Body Mass Index 39.3 Gen: in no acute distress HEENT: sclera anicteric, moist mucus membranes Neck: supple Lungs: clear to auscultation bilaterally Heart: regular rate and rhythm, no murmurs Abd: soft, non-tender, non-distended Ext: 1+ BLE edema Skin: warm/well-perfused Neuro: alert and oriented x3, no focal findings Psych: appropriate affect DS: Data Data Completed and Pending Completed studies during hospitalization [Text1]: Laboratory Results WBC 6.5 X10*3/uL (4.8-10.8) 01/01/22 05:57 RBC 3.22 X10*6/uL (4.60-5.80) L 01/01/22 05:57 Hgb 10.3 g/dl (14.0-18.0) L 01/01/22 05:57 Hct 30.3 % (42.0-52.0) L 01/01/22 05:57 MCV 94.1 fL (80.0-98.0) 01/01/22 05:57 MCH 32.0 pg (27.0-33.0) 01/01/22 05:57 MCHC 34.0 g/dl (31.0-36.0) 01/01/22 05:57 RDW 14.3 % (11.0-16.0) 01/01/22 05:57 Plt Count 353 X10*3/uL (160-400) 01/01/22 05:57 MPV 9.6 fL (9.4-12.4) 01/01/22 05:57 Immature Gran % (Auto) 0.9 % (0.0-0.4) H 01/01/22 05:57 Neut % (Auto) 54.1 % (45-73) 01/01/22 05:57 Lymph % (Auto) 29.2 % (20-40) 01/01/22 05:57 [facility] % (Auto) 9.7 % (2-11) 01/01/22 05:57 Eos % (Auto) 5.2 % (0-4) H 01/01/22 05:57 Baso % (Auto) 0.9 % (0-2) 01/01/22 05:57 Lymph # (Auto) 1.9 X10*3/uL (1.2-4.9) 01/01/22 05:57 [facility] # (Auto) 0.6 X10*3/uL (0.1-1.2) 01/01/22 05:57 Eos # (Auto) 0.3 X10*3/uL (0.0-0.4) 01/01/22 05:57 Baso # (Auto) 0.1 X10*3/uL (0.0-0.2) 01/01/22 05:57 Abs Immat Gran (auto) 0.06 X10*3/uL (0.00-0.03) H 01/01/22 05:57 Absolute Neuts (auto) 3.5 x10*3/uL (2.0-8.3) 01/01/22 05:57 Absolute Nucleated RBC 0.000 X10*3/uL (0.0-0.012) 01/01/22 05:57 Nucleated RBC % (auto) 0.0 /100WBC (0.0-0.2) 01/01/22 05:57 Sodium 135 mmol/L (135-145) 01/05/22 06:44 Potassium 5.2 mmol/L (3.3-5.1) H 01/05/22 06:44 Chloride 113 mmol/L (96-108) H 01/05/22 06:44 Carbon Dioxide 15 mmol/L (22-29) L 01/05/22 06:44 Anion Gap 12 (12-20) 01/05/22 06:44 BUN 31 mg/dL (9-16) H 01/05/22 06:44 Creatinine 4.12 mg/dL (0.5-1.4) H* 01/05/22 06:44 Estim Creat Clear Calc 24.0 01/05/22 06:44 Estimated GFR 15 01/05/22 06:44 POC Glucose 99 mg/dL (60-115) 01/05/22 07:30 Random Glucose 109 mg/dL (60-115) 01/05/22 06:44 Fasting Glucose 99 mg/dL (60-99) 01/01/22 05:57 Calcium 9.0 mg/dL (8.4-10.2) 01/05/22 06:44 Magnesium 2.3 mg/dL (1.6-2.6) 01/05/22 06:44 Total Bilirubin < 0.2 mg/dL (0.0-1.0) 01/01/22 05:57 Direct Bilirubin < 0.2 mg/dL (0.0-0.5) 12/29/21 10:40 AST 16 U/L (5-37) 01/01/22 05:57 ALT 13 U/L (0-40) 01/01/22 05:57 Alkaline Phosphatase 50 U/L (39-117) 01/01/22 05:57 Troponin I High Sens 112.5 ng/L (<3.5-35.0) H* 12/30/21 10:27 B-Natriuretic Peptide 37 pg/mL (<100) 12/29/21 10:40 Total Protein 3.9 g/dL (6.5-8.0) L 01/01/22 05:57 Albumin 1.9 g/dL (3.5-5.0) L 01/01/22 05:57 Lipase 32 U/L (8-78) 12/29/21 10:40 TSH 1.55 uIU/mL (0.32-4.0) 01/01/22 05:57 Urine Color YELLOW 12/29/21 20:56 Urine Appearance CLEAR 12/29/21 20:56 Urine pH 6.0 (5.0-8.0) 12/29/21 20:56 Ur Specific Victor 1.025 (1.005-1.025) 12/29/21 20:56 Urine Protein 3+ MG/DL (NEG-TRACE) H 12/29/21 20:56 Urine Glucose (UA) 250 MG/DL (NEG) H 12/29/21 20:56 Urine Ketones 5 MG/DL (NEG) 12/29/21 20:56 Urine Blood 2+ (NEG) H 12/29/21 20:56 Urine Nitrite NEG (NEG) 12/29/21 20:56 Ur Leukocyte Esterase NEG (NEG) 12/29/21 20:56 Urine RBC 1-4 /HPF (0) 12/29/21 20:56 Urine WBC 0-2 /HPF (0-4) 12/29/21 20:56 Ur Squamous Epith Cells TRACE /LPF 12/29/21 20:56 Urine Bacteria NONE /LPF 12/29/21 20:56 Hyaline Casts 5-9 /LPF 12/29/21 20:56 Granular Casts 0-2 /LPF 12/29/21 20:56 Urine Sperm NOTED 12/29/21 20:56 Influenza Type A (PCR) NEGATIVE (Negative) 12/29/21 10:38 Influenza Type B (PCR) NEGATIVE (Negative) 12/29/21 10:38 RSV RNA Qual (PCR) NEGATIVE (Negative) 12/29/21 10:38 SARS-CoV-2 RNA (RT-PCR) NEGATIVE (Negative) 12/29/21 10:38 Impressions Chest X-Ray 12/29/21 11:23 IMPRESSION: Question small left pleural effusion decreased from October 2021 exam. Otherwise unremarkable exam. Discharge Plan Discharge Patient Disposition: Home, Self-Care Discharge Diagnosis: # anasarca # MED/CKD3 # hypokalemeia # severe # elevated Tn-I # DM2 with hypoglycemia Referrals: Segundo Tapia MD [Primary Care Provider] - 1 Week Chris Messer MD [Physician] - 1 Week Davon Forte MD [Physician] - 1 Week Discharge Medications: New atorvastatin 40 mg Tablet 40 mg PO DAILY Qty: 30 0RF torsemide 20 mg Tablet 40 mg PO BID@0800,1700 Qty: 60 0RF Protocol: Hold for SBP< HOLD for SBP < : 90 amlodipine 5 mg Tablet 5 mg PO DAILY Qty: 30 0RF Protocol: Hold for SBP< HOLD for SBP < : 90 Continued levothyroxine 75 mcg Tablet 75 mcg PO DAILY atorvastatin 40 mg tablet 1 tab PO DAILY amlodipine 5 mg tablet 1 tab PO DAILY Discontinued torsemide 100 mg tablet 100 mg PO DAILY Qty: 30 0RF lisinopril 2.5 mg tablet 1 tab PO DAILY Januvia 100 mg tablet 1 tab PO DAILY glipizide 10 mg tablet extended release 24hr 1 tab PO DAILY Qty: 0 0RF Discharge Orders: Discharge Order (Routine); Ordered 01/05/22 Ordered By: Martin Le Diet: diabetic diet and low salt diet Activity on Discharge: As tolerated Stand Alone Forms: Patient Portal Discharge page Other Ambulatory Orders: Basic Metabolic Panel (Routine) Timeframe: 1 Week Facility: [facility] - Location: Laboratory Ordered By: Martin Le Care Plan Goals: kidney health Health Concerns: # anasarca # MED/CKD3 # hypokalemeia # severe # elevated Tn-I # DM2 with hypoglycemia Plan of Treatment: # anasarca # MED/CKD3 - torsemide 40 mg twice daily - less than 2000 mg daily of sodium - recheck basic metabolic panel [BMP] in 1 week - follow up with hydraulic operator Dr Forte in 1 week - Dr Forte to arrange rituximab infusion # hypokalemeia - repleted # severe - referral to crew clerk Dr Messer for outpatient workup # DM2 with hypoglycemia - stop sitagliptin + glipizide Assessment: See Discharge Summary
--- NOTE | 2022-01-05 11:23 | PM.PNCARD ---
Subjective Subjective Date of Service: 01/05/22 <LISA Juan - Last Filed: 01/05/22 11:43> 01/05/22 <Magen Browning MD - Last Filed: 01/05/22 16:44> Principal diagnosis: Nephrotic syndrome, severe <LISA Juan - Last Filed: 01/05/22 11:43> Interval history: Seen at 0820. Today he reports feeling well. Breathing comfortable at rest. No chest pains, heart palpitations, dizziness. Reports ambulating in room with steadiness. He states his edema is improving. He is hoping for discharge to home soon. Tele stable SR. <LISA Juan - Last Filed: 01/05/22 11:43> Review of Systems Review of Systems as above <LISA Juan - Last Filed: 01/05/22 11:43> Yes all other systems are reviewed and are negative <LISA Juan - Last Filed: 01/05/22 11:43> Physical Exam Vital Signs: Last Vital Signs Temp 98.1 F 01/05/22 07:32 Pulse 68 01/05/22 07:32 Resp 18 01/05/22 07:32 BP 132/75 01/05/22 07:32 Pulse Ox 100 01/05/22 07:32 O2 Del Method 01/05/22 07:32 BMI result Body Mass Index 39.3 <LISA Juan - Last Filed: 01/05/22 11:43> Const General: cooperative, comfortable and no acute distress <LISA Juan - Last Filed: 01/05/22 11:43> Orientation/consciousness: patient oriented x3 <LISA Juan - Last Filed: 01/05/22 11:43> Neck Neck: Yes normal visual inspection and Yes no JVD <LISA Juan Last Filed: 01/05/22 11:43> Resp Effort & Inspection: normal respiratory effort <LISA Juan - Last Filed: 01/05/22 11:43> Auscultation: clear to auscultation bilaterally, no rales, no rhonchi and no wheezes <Marcia Mcrae NPC - Last Filed: 01/05/22 11:43> Cardio Jugular venous distension: no JVD <Marcia BASHIR Mcrae - Last Filed: 01/05/22 11:43> Rate: regular rate <Marcia Clementina [facility] - Last Filed: 01/05/22 11:43> Rhythm: regular rhythm <Marcia Clementina [facility] - Last Filed: 01/05/22 11:43> Heart sounds: Murmur heart sound present (3/6 systolic murmur, left sternal border) and no rubs <[facility] Clementina [facility] - Last Filed: 01/05/22 11:43> Neuro General: patient oriented x3 <Marcia Clementina [facility] - Last Filed: 01/05/22 11:43> Extrem General: Yes normal to inspection <Marcia Clementina [facility] - Last Filed: 01/05/22 11:43> Psych Appearance: grossly normal <Marcia Clementina [facility] - Last Filed: 01/05/22 11:43> Mental Status: mental status grossly normal <Marcia Clementina [facility] - Last Filed: 01/05/22 11:43> Objective Labs and Meds Result diagrams: : 01/01/22 05:57 01/05/22 06:44 <Marcia Mcrae [facility] - Last Filed: 01/05/22 11:43> Lab results: Laboratory Results - last 24 hr 01/04/22 01/04/22 01/04/22 11:33 16:03 18:53 Sodium Potassium Chloride Carbon Dioxide Anion Gap BUN Creatinine Estim Creat Clear Calc Estimated GFR POC Glucose 88 116 H 194 H Random Glucose Calcium Magnesium 01/05/22 01/05/22 06:44 07:30 Sodium 135 Potassium 5.2 H Chloride 113 H Carbon Dioxide 15 L Anion Gap 12 BUN 31 H Creatinine 4.12 H* Estim Creat Clear Calc 24.0 Estimated GFR 15 POC Glucose 99 Random Glucose 109 Calcium 9.0 Magnesium 2.3 <Marcia ClementinaBASHIR-C - Last Filed: 01/05/22 11:43> Progress Note: A&P Assessment and plan (1) Aortic stenosis: Status: Acute <LISA Juan - Last Filed: 01/05/22 11:43> Assessment and Plan: Admit with sob, anasarca. Hx of nephrotic syndrome. Fluid overload this admit being managed by Nephrology. Echo done on 12/30/21 shows EF 60-65%, normal RV, severe with mean gradiant 38mmhg, EDDI 0.89cm2, mod plaque in sino tubal ridge and ascending aorta. No prior known Aortic stenosis. Current admit/ fluid retension felt to be kidney related, and not valve related. Clinically he is improving. His cardiac condition is stable at present. Diagnosis of , cardinal signs of severe and treatments plans reviewed with him. We will sign off and arrange for outpt cardology follow up/ testing. <LISA Juan - Last Filed: 01/05/22 11:43> Admit with sob, anasarca. Hx of nephrotic syndrome. Fluid overload this admit being managed by Nephrology. Echo done on 12/30/21 shows EF 60-65%, normal RV, severe with mean gradiant 38mmhg, EDDI 0.89cm2, mod plaque in sino tubal ridge and ascending aorta. No prior known Aortic stenosis. Current admit/ fluid retension felt to be kidney related, and not valve related. Clinically he is improving. His cardiac condition is stable at present. Diagnosis of , cardinal signs of severe and treatments plans reviewed with him. We will sign off and arrange for outpt cardology follow up/ testing. Patient seen and examined. Case discussed with Marcia Mcrae. Patient currently not having any cardiac symptoms. Severe aortic stenosis noted. No signs or symptoms of heart failure at this time continue medical management. Continue low-dose aspirin therapy. Continue to follow with Nephrology for his advanced kidney disease and nephrotic syndrome. Will workup for aortic stenosis as outpatient. This was discussed with the patient. Continue aggressive control blood pressure as well as diabetes. Goal LDL less than 70 mg/dL. Will sign of the case. Patient can be discharged from cardiac perspective and ready <Magen Browning MD - Last Filed: 01/05/22 16:44> (2) Acute on chronic renal failure: Status: Acute <LISA Juan - Last Filed: 01/05/22 11:43> Assessment and Plan: Being managed by nephrology. <LISA Juan - Last Filed: 01/05/22 11:43> (3) Anasarca associated with disorder of kidney: Status: Acute <LISA Juan - Last Filed: 01/05/22 11:43> (4) Hypertension: Status: Acute <LISA Juan - Last Filed: 01/05/22 11:43> Assessment and Plan: BP well controlled at present. No changes made. <LISA Juan - Last Filed: 01/05/22 11:43> Time Spent With Patient Time: Total time spent is greater than 50% in coordination of care (as documented) at patient's floor/unit and/or counseling patient: 20 <LISA Juan - Last Filed: 01/05/22 11:43> Progress Note: Quality Stroke Does the patient have a stroke diagnosis?: No <LISA Juan - Last Filed: 01/05/22 11:43> Procedures Date of Service Date of Service: 01/05/22 <LISA Juan - Last Filed: 01/05/22 11:43>
--- NOTE | 2022-01-05 11:34 | MHC.CM.PN ---
PATIENT TO RETURN HOME TODAY VIA [facility]. NO SERVICES NEEDED IMM 01/04 IN CHART RN AWARE OF PLAN.
[2022-01-05 12:00] VITALS: BP 109/71; PULSE 78; RESP 18; TEMP 36.9; O2SAT 98
[2022-01-05 12:07] LABS: Glucose, Whole Blood 111 mg/dL (60-115)
== END 2022-01-05 13:23 | disposition home or self-care (01) | DRG 700 ==
LOC: HO.ED 13:09 → HO.EDOVER 15:11 → HO.S3 12-30 22:52
PROVIDERS: Family Medicine; Hospitalist; Admitting Provider Hospitalist; Emergency Provider Emergency Medicine; PCP Internal Medicine; Visit Provider Family Medicine
DX: N04.2 Nephrotic syndrome with diffuse membranous glomerulonephritis (principal); N17.9 Acute kidney failure, unspecified; N18.30 Chronic kidney disease, stage 3 unspecified; I11.0 Hypertensive heart disease with heart failure; I50.9 Heart failure, unspecified; E11.22 Type 2 diabetes mellitus with diabetic chronic kidney disease; D63.1 Anemia in chronic kidney disease; E11.649 Type 2 diabetes mellitus with hypoglycemia without coma; E03.9 Hypothyroidism, unspecified; E78.5 Hyperlipidemia, unspecified; I35.0 Nonrheumatic aortic (valve) stenosis; E87.6 Hypokalemia; Z20.822 Contact with and (suspected) exposure to COVID-19; Z87.891 Personal history of nicotine dependence; Z88.0 Allergy status to penicillin; Z79.890 Hormone replacement therapy; Z79.899 Other long term (current) drug therapy
CPT/HCPCS: 0241U; 36415; 71045; 80048; 80053; 80076; 81001; 82947; 83690; 83735; 83880; 84443; 84484; 85025; 93005; 93306; 96365; 96375; 99285; J1940; P9047; Q9957

== ENCOUNTER 2022-01-14 09:28 | Outpatient (REF) | payer MEDICARE, MEDICAID, SELFPAY ==
[2022-01-14 10:27] LABS: MANUAL DIFF FLAG NO
[2022-01-14 10:30] LABS: Basophils Absolute Auto 0.1 X10*3/uL (0.0-0.2); Eosinophils Absolute Auto 0.3 X10*3/uL (0.0-0.4); Eosinophils Percent Auto 4.2 % (0-4); Hematocrit 34.6 % (42.0-52.0); Hemoglobin 11.6 g/dl (14.0-18.0); Imm Gran Abs Auto 0.06 X10*3/uL (0.00-0.03); Imm Gran Pct Auto 0.9 % (0.0-0.4); Lymphocytes Absolute Auto 1.5 X10*3/uL (1.2-4.9); Lymphocytes Percent Auto 22.5 % (20-40); Mean Corpuscular HGB Conc 33.5 g/dl (31.0-36.0); Mean Corpuscular Volume 95.3 fL (80.0-98.0); Monocytes Absolute Auto 0.5 X10*3/uL (0.1-1.2); Monocytes Percent Auto 6.7 % (2-11); Neutrophils Absolute Auto 4.4 x10*3/uL (2.0-8.3); Neutrophils Percent Auto 64.7 % (45-73); Platelet Count 350 X10*3/uL (160-400); Red Blood Count 3.63 X10*6/uL (4.60-5.80); Red Cell Distribution Width 14.3 % (11.0-16.0); White Blood Count 6.9 X10*3/uL (4.8-10.8)
[2022-01-14 10:43] LABS: Estimated Average Glucose 123 mg/dL; Hemoglobin A1c % 5.9 %
[2022-01-14 10:57] LABS: Alanine Aminotransferase 16 U/L (0-40); Albumin Level 1.9 g/dL (3.5-5.0); Alkaline Phosphatase 56 U/L (39-117); Anion Gap 15 (12-20); Aspartate Amino Transferase 23 U/L (5-37); Bilirubin Total 0.2 mg/dL (0.0-1.0); Blood Urea Nitrogen 30 mg/dL (9-16); Calcium 6.9 mg/dL (8.4-10.2); Carbon Dioxide 15 mmol/L (22-29); Chloride 113 mmol/L (96-108); Estimated Glomerular Filt Rate 14; Glucose Fasting 69 mg/dL (60-99); Potassium 3.5 mmol/L (3.3-5.1); Sodium 139 mmol/L (135-145); Total Protein 4.3 g/dL (6.5-8.0)
== END 2022-01-14 09:29 | disposition home or self-care (01) ==
LOC: HO.10HDL 09:28
PROVIDERS: PCP Internal Medicine; Visit Provider Family Medicine
DX: E11.9 Type 2 diabetes mellitus without complications (principal); D64.9 Anemia, unspecified; N18.9 Chronic kidney disease, unspecified; N17.9 Acute kidney failure, unspecified
CPT/HCPCS: 36415; 80053; 83036; 85025

== ENCOUNTER 2022-01-20 10:59 | Inpatient (IN) | payer MEDICARE, MEDICAID, SELFPAY ==
--- NOTE | ~2022-01-20 | XR_ITS ---
EXAMINATION: XR CHEST CLINICAL INFORMATION: Dyspnea COMPARISON: Chest radiograph 12/29/2021 and 10/24/2021 TECHNIQUE: Frontal view of the chest was obtained. FINDINGS: Since the prior study of 12/29/2021, there is increase in size of a small left sided pleural effusion. A trace right pleural effusion is probably present. At the time of 10/24/2021 study, bilateral small pleural effusions were present, slightly larger than today. The heart and pulmonary vessels appear normal. No CHF, infiltrates or lung masses are seen. XR/XR chest 1V IMPRESSION: Tiny bilateral pleural effusions
[2022-01-20 11:05] VITALS: BP 148/90; PULSE 88; O2SAT 100
--- NOTE | 2022-01-20 11:18 | ECG_ITS ---
Test Reason : sob Blood Pressure : / mmHG Vent. Rate : 070 BPM Atrial Rate : 070 BPM P-R Int : 172 ms QRS Dur : 096 ms QT Int : 434 ms P-R-T Axes : 025 006 016 degrees QTc Int : 468 ms Normal sinus rhythm Normal ECG When compared with ECG of 29-DEC-2021 11:01, No significant change was found Referred By: Sabi Magaña Electronically Signed By:Chris Messer
[2022-01-20 12:02] VITALS: BP 127/82; PULSE 81; RESP 16; O2SAT 100; BMI 34.8
[2022-01-20 12:42] LABS: MANUAL DIFF FLAG NO
[2022-01-20 12:44] LABS: Basophils Absolute Auto 0.1 X10*3/uL (0.0-0.2); Basophils Percent Auto 1.1 % (0-2); Eosinophils Absolute Auto 0.2 X10*3/uL (0.0-0.4); Hematocrit 36.1 % (42.0-52.0); Hemoglobin 12.2 g/dl (14.0-18.0); Imm Gran Abs Auto 0.03 X10*3/uL (0.00-0.03); Imm Gran Pct Auto 0.4 % (0.0-0.4); Lymphocytes Absolute Auto 1.6 X10*3/uL (1.2-4.9); Lymphocytes Percent Auto 21.9 % (20-40); Mean Corpuscular HGB Conc 33.8 g/dl (31.0-36.0); Mean Corpuscular Volume 94.8 fL (80.0-98.0); Mean Platelet Volume 9.2 fL (9.4-12.4); Monocytes Absolute Auto 0.4 X10*3/uL (0.1-1.2); Monocytes Percent Auto 5.5 % (2-11); Neutrophils Percent Auto 68.1 % (45-73); Platelet Count 409 X10*3/uL (160-400); Red Blood Count 3.81 X10*6/uL (4.60-5.80); Red Cell Distribution Width 14.4 % (11.0-16.0); White Blood Count 7.3 X10*3/uL (4.8-10.8)
[2022-01-20 12:50] LABS: INTERNATIONAL NORM RATIO 0.9 (0.9-1.1); Prothrombin Time 10.4 SEC (10.0-13.1)
[2022-01-20 13:00] LABS: COVID-19 Test Negative (Negative)
[2022-01-20 13:01] LABS: Alanine Aminotransferase 15 U/L (0-40); Albumin Level 1.8 g/dL (3.5-5.0); Alkaline Phosphatase 58 U/L (39-117); Anion Gap 12 (12-20); Aspartate Amino Transferase 23 U/L (5-37); Bilirubin Direct 0.2 mg/dL (0.0-0.5); Bilirubin Total 0.2 mg/dL (0.0-1.0); Blood Urea Nitrogen 21 mg/dL (9-16); Calcium 6.2 mg/dL (8.4-10.2); Carbon Dioxide 15 mmol/L (22-29); Chloride 111 mmol/L (96-108); Creatinine Clr Calc Pharmacy 24.4; Estimated Glomerular Filt Rate 16; Glucose Random 91 mg/dL (60-115); Magnesium 2.1 mg/dL (1.6-2.6); Potassium 3.2 mmol/L (3.3-5.1); Sodium 135 mmol/L (135-145); Total Protein 4.4 g/dL (6.5-8.0)
[2022-01-20 13:03] LABS: B Type Natriuretic Peptide 53 pg/mL (<100); Troponin-I High Sensitivity 14.4 ng/L (<3.5-35.0)
--- NOTE | 2022-01-20 16:33 | ED_ITS ---
HPI - SOB/Dyspnea General Chief Complaint: Dyspnea Stated Complaint: shortness of breath, swelling on the legs Time Seen by Provider: 01/20/22 11:18 Source: patient Mode of arrival: ambulatory Limitations: no limitations History of Present Illness HPI Narrative: Patient is 66 years old with history of advanced kidney disease in the setting of membranous nephropathy with nephrotic syndrome, diabetes, severe aortic stenosis with peak aortic velocity 4.07 M/S mean gradient 38 aortic valve area 0.89 cm on 01/07 was on furosemide 100 mg daily change to 80 mg daily 2 weeks ago at the time of discharge since then patient started gaining weight and feels more bloated increased leg edema increased abdominal wall edema feel short of breath even while walking few steps is not urinating that much as compared to in the past denies any chest pain or palpitation. Related Data Home Medications Medication Instructions Recorded Confirmed levothyroxine 75 mcg tablet 75 mcg PO DAILY 06/27/20 01/20/22 atorvastatin 40 mg tablet 1 tab PO DAILY 10/24/21 01/20/22 lisinopril 2.5 mg tablet 1 tab PO DAILY 01/20/22 01/20/22 metolazone 2.5 mg tablet 1 tab PO DAILY 01/20/22 01/20/22 spironolactone 25 mg tablet 1 tab PO DAILY 01/20/22 01/20/22 Previous Rx's Medication Instructions Recorded amlodipine 5 mg tablet 5 mg PO DAILY #30 tabs 01/05/22 torsemide 20 mg tablet 40 mg PO BID@0800,1700 #60 tabs 01/05/22 Allergies Allergy/AdvReac Type Severity Reaction Status Date / Time Penicillins Allergy Unknown UNKWN Verified 01/20/22 12:06 Review of Systems Review of Systems: Yes all other systems are reviewed and are negative [facility] Past Medical History Medical History Acute hypokalemia Acute on chronic renal failure Anasarca associated with disorder of kidney Aortic stenosis CHF (congestive heart failure), NYHA class I CKD (chronic kidney disease) stage 3, GFR 30-59 ml/min Congestive heart failure Diabetes 1.5, managed as type 2 Diverticulosis Hiatal hernia History of small bowel obstruction Hyperlipidemia Hypertension 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 Social History Social History Household Members: None Housing: Apartment Do you presently have visiting nurse or other home services: No Alcohol intake: former Patient Tobacco Use Status: Former Tobacco user Smoked in Last 30 Days: No Second Hand Smoke Exposure: No Use of substances other than those prescribed or required for medical reasons: No Advance Directives: Yes Advance Directives on File: No Advance Directives Date on File: 05/01/20 service: No Current occupational status: unemployed and disabled Physical Exam Vital Signs: Vital Signs: Last Vital Signs Pulse 85 01/20/22 18:14 Resp 14 01/20/22 18:14 BP 137/67 01/20/22 18:14 Pulse Ox 100 01/20/22 18:14 O2 Del Method 01/20/22 18:14 BMI result Body Mass Index 34.8 Appearance: Alert. Oriented X3. No acute distress. Eyes: pallor+ ENT: Pharynx normal. Oral Mucosa moist Neck: Normal inspection. Neck supple. CVS: Normal heart rate and rhythm. Systolic ejection murmur 4//6 at base, Pulses normal. Respiratory: No respiratory distress. Equal air entry bilateral, no wheezing/rales/rhonchi Abdomen: Soft and nontender. Bowel sounds are present, no mass palpable, no CVA tenderness Skin: Skin warm and dry. Normal skin color. Normal skin turgor. Extremities: 3+ lower extremity edema. No calf tenderness Neuro: Oriented X 3. No motor deficit. MDM - SOB/Dyspnea MDM Narrative Medical decision making narrative: Patient has significant exertional dyspnea with critical aortic stenosis with nephrotic syndrome with fluid overloaded will admit patient for IV diuresis Medical Records Attestation: I reviewed the patient's medical records. Lab Data Attestation: I reviewed the patient's lab results. Result diagrams: 01/20/22 12:36 01/20/22 12:36 Labs: Lab Results 01/20/22 01/20/22 01/20/22 Range/Units 12:36 12:36 12:36 WBC 7.3 (4.8-10.8) X10*3/uL RBC 3.81 L (4.60-5.80) X10*6/uL Hgb 12.2 L (14.0-18.0) g/dl Hct 36.1 L (42.0-52.0) % MCV 94.8 (80.0-98.0) fL MCH 32.0 (27.0-33.0) pg MCHC 33.8 (31.0-36.0) g/dl RDW 14.4 (11.0-16.0) % Plt Count 409 H (160-400) X10*3/uL MPV 9.2 L (9.4-12.4) fL Immature Gran % (Auto) 0.4 (0.0-0.4) % Neut % (Auto) 68.1 (45-73) % Lymph % (Auto) 21.9 (20-40) % [place] % (Auto) 5.5 (2-11) % Eos % (Auto) 3.0 (0-4) % Baso % (Auto) 1.1 (0-2) % Lymph # (Auto) 1.6 (1.2-4.9) X10*3/uL [place] # (Auto) 0.4 (0.1-1.2) X10*3/uL Eos # (Auto) 0.2 (0.0-0.4) X10*3/uL Baso # (Auto) 0.1 (0.0-0.2) X10*3/uL Abs Immat Gran (auto) 0.03 (0.00-0.03) X10*3/uL Absolute Neuts (auto) 5.0 (2.0-8.3) x10*3/uL Absolute Nucleated RBC 0.000 (0.0-0.012) X10*3/uL Nucleated RBC % (auto) 0.0 (0.0-0.2) /100WBC PT (10.0-13.1) SEC INR (0.9-1.1) Sodium 135 (135-145) mmol/L Potassium 3.2 L (3.3-5.1) mmol/L Chloride 111 H (96-108) mmol/L Carbon Dioxide 15 L (22-29) mmol/L Anion Gap 12 (12-20) BUN 21 H (9-16) mg/dL Creatinine 3.80 H (0.5-1.4) mg/dL Estim Creat Clear Calc 24.4 Estimated GFR 16 Random Glucose 91 (60-115) mg/dL Calcium 6.2 L D (8.4-10.2) mg/dL Magnesium 2.1 (1.6-2.6) mg/dL Total Bilirubin 0.2 (0.0-1.0) mg/dL Direct Bilirubin 0.2 (0.0-0.5) mg/dL AST 23 (5-37) U/L ALT 15 (0-40) U/L Alkaline Phosphatase 58 (39-117) U/L Troponin I High Sens (<3.5-35.0) ng/L B-Natriuretic Peptide 53 (<100) pg/mL Total Protein 4.4 L (6.5-8.0) g/dL Albumin 1.8 L (3.5-5.0) g/dL COVID-19 ([facility]) (Negative) COVID-19 Clin Com 01/20/22 01/20/22 01/20/22 Range/Units 12:36 12:36 12:36 WBC (4.8-10.8) X10*3/uL RBC (4.60-5.80) X10*6/uL Hgb (14.0-18.0) g/dl Hct (42.0-52.0) % MCV (80.0-98.0) fL MCH (27.0-33.0) pg MCHC (31.0-36.0) g/dl RDW (11.0-16.0) % Plt Count (160-400) X10*3/uL MPV (9.4-12.4) fL Immature Gran % (Auto) (0.0-0.4) % Neut % (Auto) (45-73) % Lymph % (Auto) (20-40) % [place] % (Auto) (2-11) % Eos % (Auto) (0-4) % Baso % (Auto) (0-2) % Lymph # (Auto) (1.2-4.9) X10*3/uL [place] # (Auto) (0.1-1.2) X10*3/uL Eos # (Auto) (0.0-0.4) X10*3/uL Baso # (Auto) (0.0-0.2) X10*3/uL Abs Immat Gran (auto) (0.00-0.03) X10*3/uL Absolute Neuts (auto) (2.0-8.3) x10*3/uL Absolute Nucleated RBC (0.0-0.012) X10*3/uL Nucleated RBC % (auto) (0.0-0.2) /100WBC PT 10.4 (10.0-13.1) SEC INR 0.9 (0.9-1.1) Sodium (135-145) mmol/L Potassium (3.3-5.1) mmol/L Chloride (96-108) mmol/L Carbon Dioxide (22-29) mmol/L Anion Gap (12-20) BUN (9-16) mg/dL Creatinine (0.5-1.4) mg/dL Estim Creat Clear Calc Estimated GFR Random Glucose (60-115) mg/dL Calcium (8.4-10.2) mg/dL Magnesium (1.6-2.6) mg/dL Total Bilirubin (0.0-1.0) mg/dL Direct Bilirubin (0.0-0.5) mg/dL AST (5-37) U/L ALT (0-40) U/L Alkaline Phosphatase (39-117) U/L Troponin I High Sens 14.4 D (<3.5-35.0) ng/L B-Natriuretic Peptide (<100) pg/mL Total Protein (6.5-8.0) g/dL Albumin (3.5-5.0) g/dL COVID-19 ([facility]) Negative (Negative) COVID-19 Clin Com See Note ECG Data Attestation: I personally reviewed and interpreted this ECG as follows: Interpretation: Normal sinus rhythm heart rate 70 beats per minute normal intervals normal no ac lianne ST T wave changes no acute ischemia Discharge Plan Discharge Clinical Impression: Congestive heart failure, Anasarca associated with disorder of kidney Patient Disposition: Admitted As Inpatient
[2022-01-20 18:14] VITALS: BP 137/67; PULSE 85; RESP 14; O2SAT 100
[2022-01-20] MEDS: Potassium Bicarbonate/Cit AC 25 MEQ TABLET.EFF PO (18:37)
[2022-01-20] MEDS: Furosemide 100 MG/10 ML VIAL 60 MG IVPUSH (18:37)
--- NOTE | 2022-01-20 21:57 | PHA.MEDREC ---
Pharmacy Consult ? Medication Reconciliation Pharmacy has completed the medication reconciliation. Patient could not recall his medications but told me to call [facility]. List obtained from history with [facility].
[2022-01-20 22:43] VITALS: BP 163/87; PULSE 100; RESP 17; TEMP 36.6; O2SAT 99
[2022-01-20 23:23] VITALS: BP 124/65; PULSE 77; RESP 13; O2SAT 97
--- NOTE | 2022-01-20 23:25 | P.HPHOSP_ITS ---
History of Present Illness Date of Service: 01/20/22 Chief Complaint: SOB 66-year-old male with a past medical history of hypertension, hyperlipidemia, diabetes, CKD, CHF, nephritis syndrome, aortic stenosis, hiatal hernia; presented to the hospital today with a chief complaint of shortness of breath. Patient reported that he was recently admitted to the hospital for MED/CHF. His diuretic dose has been reduced at the time of the discharge. Today presents with a chief complaint of shortness of breath which has been gradually worsening over the past 3-4 days. Complains of dyspnea on exertion. Mentions that his legs have been becoming swollen so giving him difficulty to walk. Denies any fall or trauma. Denies any chest pain or palpitations. Reports he has been complaint with his home medications. Denies any GI symptoms. Review of all other systems is negative except mentioned above ER course: Per ER team patient noted to have 4+ pitting edema; also noted to have some edema around the abdominal wall; concerning for anasarca; patient was given Lasix 60 mg IV. Admitted to the hospital for further management. 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 Pertinent family history: Patient unable to recall family history Social History Household Members: None Housing: Apartment Do you presently have visiting nurse or other home services: No Alcohol intake: former Patient Tobacco Use Status: Former Tobacco user Smoked in Last 30 Days: No Second Hand Smoke Exposure: No Use of substances other than those prescribed or required for medical reasons: No Advance Directives: Yes Advance Directives on File: No Advance Directives Date on File: 05/01/20 service: No Current occupational status: unemployed and disabled Meds Allergies Allergy/AdvReac Type Severity Reaction Status Date / Time Penicillins Allergy Unknown UNKWN Verified 01/20/22 12:06 Active Medications: Current Medications Acetaminophen (Acetaminophen 325 Mg Tablet) 650 mg PO Q6H PRN PRN Reason: Pain, Mild (Pain Scale 1-3) Enoxaparin Sodium (Enoxaparin Sodium 40 Mg/0.4 Ml Syringe) 40 mg SUBCUT Q24H [facility] Sodium Chloride (0.9 % Sodium Chloride Flush 3 Ml Syringe) 3 ml IVFLUSH QSHIFT [facility] Home Medications Medication Instructions Recorded Confirmed Last Taken Type levothyroxine 75 mcg tablet 75 mcg PO DAILY 06/27/20 01/20/22 12/28/21 History atorvastatin 40 mg tablet 1 tab PO DAILY 10/24/21 01/20/22 12/28/21 History lisinopril 2.5 mg tablet 1 tab PO DAILY 01/20/22 01/20/22 Unknown History metolazone 2.5 mg tablet 1 tab PO DAILY 01/20/22 01/20/22 Unknown History spironolactone 25 mg tablet 1 tab PO DAILY 01/20/22 01/20/22 Unknown History Physical Exam Vital Signs and Narrative: Vital Signs: Last Vital Signs Temp 98 F 01/20/22 22:43 Pulse 100 01/20/22 22:43 Resp 17 01/20/22 22:43 BP 163/87 H 01/20/22 22:43 Pulse Ox 99 01/20/22 22:43 O2 Del Method 01/20/22 22:43 BMI result Body Mass Index 34.8 Gen: Appears be in no acute distress HEENT: NCAT, Moist mucosa. Pulmonary: Vesicular breath sounds, fair air entry CVS: Murmur present Abdomen: BS+, Soft, Nontender Extremities: Warm well perfused; 4+ pitting edema on bilateral lower extremities; Neuro: Alert and awake. Grossly nonfocal Results Labs CBC and Chem 7: 01/21/22 04:43 01/20/22 12:36 Labs: Laboratory Results - last 24 hr 01/20/22 01/20/22 01/20/22 12:36 12:36 12:36 MCV 94.8 MCH 32.0 MCHC 33.8 RDW 14.4 Plt Count 409 H MPV 9.2 L Immature Gran % (Auto) 0.4 Neut % (Auto) 68.1 Lymph % (Auto) 21.9 [place] % (Auto) 5.5 Eos % (Auto) 3.0 Baso % (Auto) 1.1 Lymph # (Auto) 1.6 [place] # (Auto) 0.4 Eos # (Auto) 0.2 Baso # (Auto) 0.1 Abs Immat Gran (auto) 0.03 Absolute Neuts (auto) 5.0 Absolute Nucleated RBC 0.000 Nucleated RBC % (auto) 0.0 PT INR Anion Gap 12 Estim Creat Clear Calc 24.4 Estimated GFR 16 Random Glucose 91 Calcium 6.2 L D Magnesium 2.1 Total Bilirubin 0.2 Direct Bilirubin 0.2 AST 23 ALT 15 Alkaline Phosphatase 58 Troponin I High Sens B-Natriuretic Peptide 53 Total Protein 4.4 L Albumin 1.8 L COVID-19 ([facility]) COVID-19 [employer] 01/20/22 01/20/22 01/20/22 12:36 12:36 12:36 MCV MCH MCHC RDW Plt Count MPV Immature Gran % (Auto) Neut % (Auto) Lymph % (Auto) [place] % (Auto) Eos % (Auto) Baso % (Auto) Lymph # (Auto) [place] # (Auto) Eos # (Auto) Baso # (Auto) Abs Immat Gran (auto) Absolute Neuts (auto) Absolute Nucleated RBC Nucleated RBC % (auto) PT 10.4 INR 0.9 Anion Gap Estim Creat Clear Calc Estimated GFR Random Glucose Calcium Magnesium Total Bilirubin Direct Bilirubin AST ALT Alkaline Phosphatase Troponin I High Sens 14.4 D B-Natriuretic Peptide Total Protein Albumin COVID-19 ([facility]) Negative COVID-19 Clin Com See Note Imaging Radiologist's Impressions: Impressions Chest X-Ray 01/20/22 11:33 IMPRESSION: Tiny bilateral pleural effusions Assessment and Plan (1) Congestive heart failure: Status: Acute (2) Anasarca associated with disorder of kidney: Status: Acute (3) Membranous nephrosis: Status: Acute Plan 66-year-old male with a past medical history of hypertension, hyperlipidemia, diabetes, CKD, CHF, nephritis syndrome, aortic stenosis, hiatal hernia; presented to the hospital today with a chief complaint of shortness of breath. Noted to be in volume overload in the setting of CHF/CKD/nephrotic syndrome. Admitted to the hospital for further management. Volume overload/anasarca: Nephrotoxins on/CKD: Creatinine baseline around 3.8-4.0. Will give the patient on Lasix 60 mg IV daily Nephrology consult Patient was on Lasix drip during the last admission. Daily weights and I's and O's Hypokalemia: Repleted Severe aortic stenosis: Cardiology follow-up History of diabetes: Insulin sliding scale. Hold home oral hypoglycemic agents. History of hypertension: Continue home blood History of hypothyroidism: Continue home levothyroxine DVT prophylaxis: Subcu heparin Code status: Full code Quality Stroke Does the patient have a stroke diagnosis?: No VTE Prior VTE?: No VTE Risk Level:: Medical - moderate - high VTE Device Contraindication: Treatment Not Indicated VTE Drug Contraindication: N/A - Med Ordered
[2022-01-21] VITALS (7 sets, daily range): BP systolic 111–148; BP diastolic 54–78; PULSE 65–83; RESP 14–20; TEMP 36.3–37.1; O2SAT 98–100
[2022-01-21] MEDS: Enoxaparin Sodium 40 MG/0.4 ML SYRINGE SUBCUT (02:16)
[2022-01-21] MEDS: 0.9 % Sodium Chloride Flush 3 ML SYRINGE IVFLUSH ×2 (02:19→08:54)
[2022-01-21 04:49] LABS: Basophils Absolute Auto 0.1 X10*3/uL (0.0-0.2); Basophils Percent Auto 1.6 % (0-2); Eosinophils Absolute Auto 0.2 X10*3/uL (0.0-0.4); Eosinophils Percent Auto 3.9 % (0-4); Hematocrit 33.3 % (42.0-52.0); Hemoglobin 11.4 g/dl (14.0-18.0); Imm Gran Abs Auto 0.02 X10*3/uL (0.00-0.03); Imm Gran Pct Auto 0.3 % (0.0-0.4); Lymphocytes Absolute Auto 1.8 X10*3/uL (1.2-4.9); Lymphocytes Percent Auto 29.7 % (20-40); MANUAL DIFF FLAG NO; Mean Corpuscular HGB Conc 34.2 g/dl (31.0-36.0); Mean Corpuscular Hemoglobin 32.3 pg (27.0-33.0); Mean Corpuscular Volume 94.3 fL (80.0-98.0); Mean Platelet Volume 9.3 fL (9.4-12.4); Monocytes Absolute Auto 0.6 X10*3/uL (0.1-1.2); Monocytes Percent Auto 9.3 % (2-11); Neutrophils Absolute Auto 3.4 x10*3/uL (2.0-8.3); Neutrophils Percent Auto 55.2 % (45-73); Platelet Count 345 X10*3/uL (160-400); Red Blood Count 3.53 X10*6/uL (4.60-5.80); Red Cell Distribution Width 14.5 % (11.0-16.0); White Blood Count 6.2 X10*3/uL (4.8-10.8)
[2022-01-21 05:26] LABS: Magnesium 2.1 mg/dL (1.6-2.6)
[2022-01-21 05:29] LABS: Anion Gap 12 (12-20); Blood Urea Nitrogen 21 mg/dL (9-16); Calcium 6.2 mg/dL (8.4-10.2); Carbon Dioxide 16 mmol/L (22-29); Chloride 113 mmol/L (96-108); Creatinine Clr Calc Pharmacy 23.1; Estimated Glomerular Filt Rate 15; Glucose Random 76 mg/dL (60-115); Potassium 3.5 mmol/L (3.3-5.1); Sodium 137 mmol/L (135-145)
[2022-01-21] MEDS: Levothyroxine Sodium 75 MCG TABLET PO (06:53)
[2022-01-21] MEDS: Heparin Sodium,Porcine 5,000 UNIT/ML VIAL 5000 UNIT SUBCUT ×3 (06:53→20:18)
[2022-01-21] MEDS: lisinopriL 2.5 MG TABLET PO (08:53)
[2022-01-21] MEDS: Furosemide 40 MG/4 ML VIAL 60 MG IVPUSH (08:53)
[2022-01-21] MEDS: Atorvastatin Calcium 40 MG TABLET PO (08:53)
[2022-01-21] MEDS: amLODIPine Besylate 5 MG TABLET PO (08:53)
--- NOTE | 2022-01-21 09:39 | MHC.CM.PN ---
Met with patient regarding dc planning. Patient lives alone in apartment with elevator access, ambulates without a devise, and manages all is ALDs independently. He uses busses or asks neighbor for rides for transportation and plans to take the [facility] van home at [place]. Educated patient on HCP, he states his parents are in their 80s so doesn't want to burden them, he is not in contact with siblings, and has no one else he is close to. He declines to complete HCP. Discussed VNA and patient adamantly refuses VNA services, stating he had a bad experience in the past. PCP is Dr. Tapia. [place] plan home no services.
--- NOTE | 2022-01-21 09:43 | PC.NURSE ---
Pt transferred here from the ED. VSS. Medicated per SEP. 3+ edema to BLE. no c/o pain or sob. pt is a/o and ambulatory on the unit. no abdominal pain or chest pain at this time. call marck and linda within reach.
--- NOTE | 2022-01-21 12:48 | P.CONCA_ITS ---
History of Present Illness History of Present Illness Date of Service: 01/21/22 Requesting physician: Ileana Leach Chief complaint: Fluid overload, aortic stenosis Narrative: 66-year-old gentleman who recently was diagnosed with severe aortic valve stenosis and acute kidney injury/membranous nephropathy and diffuse anasarca. He was diuresed and discharged and is returning again with significant volume overload lower extremity edema and shortness of breath. He has been started on IV diuretics and Nephrology is following him. Denying any chest discomfort currently. He is saying his breathing is improving. Previously it was felt that aortic stenosis is a incidental finding currently and is not the cause for his volume overload. Again his presentation is more related to his nephropathy and kidney disease. 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 Social History Social History Household Members: None Housing: Apartment Do you presently have visiting nurse or other home services: No Alcohol intake: former Patient Tobacco Use Status: Former Tobacco user Smoked in Last 30 Days: No Second Hand Smoke Exposure: No Use of substances other than those prescribed or required for medical reasons: No Advance Directives: Yes Advance Directives on File: No Advance Directives Date on File: 05/01/20 service: No Current occupational status: unemployed and disabled Meds Allergies Allergy/AdvReac Type Severity Reaction Status Date / Time Penicillins Allergy Unknown UNKWN Verified 01/20/22 12:06 Active Medications: Current Medications Acetaminophen (Acetaminophen 325 Mg Tablet) 650 mg PO Q6H PRN PRN Reason: Pain, Mild (Pain Scale 1-3) Amlodipine Besylate (Amlodipine Besylate 5 Mg Tablet) 5 mg PO DAILY [facility]; Protocol Last Admin: 01/21/22 08:53 Dose: 5 mg Atorvastatin Calcium (Atorvastatin Calcium 40 Mg Tablet) 40 mg PO DAILY [facility] Last Admin: 01/21/22 08:53 Dose: 40 mg Furosemide (Furosemide 40 Mg/4 Ml Vial) 60 mg IVPUSH DAILY [facility]; Protocol Last Admin: 01/21/22 08:53 Dose: 60 mg Heparin Sodium (Porcine) (Heparin Sodium,Porcine 5,000 Unit/Ml Vial) 5,000 unit SUBCUT Q8H [facility] Last Admin: 01/21/22 06:53 Dose: 5,000 unit Levothyroxine Sodium (Levothyroxine Sodium 75 Mcg Tablet) 75 mcg PO 0600 [facility] Last Admin: 01/21/22 06:53 Dose: 75 mcg Lisinopril (Lisinopril 2.5 Mg Tablet) 2.5 mg PO DAILY [facility]; Protocol Last Admin: 01/21/22 08:53 Dose: 2.5 mg Melatonin (Melatonin 3 Mg Tablet) 6 mg PO BEDTIME PRN PRN Reason: Insomnia Senna (Sennosides 8.6 Mg Tablet) 17.2 mg PO BEDTIME PRN PRN Reason: Constipation Sodium Chloride (0.9 % Sodium Chloride Flush 3 Ml Syringe) 3 ml IVFLUSH QSHIFT [facility] Last Admin: 01/21/22 08:54 Dose: 3 ml Home Medications Medication Instructions Recorded Confirmed Last Taken Type levothyroxine 75 mcg tablet 75 mcg PO DAILY 06/27/20 01/20/22 12/28/21 History atorvastatin 40 mg tablet 1 tab PO DAILY 10/24/21 01/20/22 12/28/21 History lisinopril 2.5 mg tablet 1 tab PO DAILY 01/20/22 01/20/22 Unknown History metolazone 2.5 mg tablet 1 tab PO DAILY 01/20/22 01/20/22 Unknown History spironolactone 25 mg tablet 1 tab PO DAILY 01/20/22 01/20/22 Unknown History Physical Exam Vital Signs: Vital Signs: Last Vital Signs Temp 97.9 F 01/21/22 11:37 Pulse 75 01/21/22 11:37 Resp 17 01/21/22 11:37 BP 126/54 L 01/21/22 11:37 Pulse Ox 100 01/21/22 11:37 O2 Del Method 01/21/22 11:37 BMI result Body Mass Index 34.8 GENERAL APPEARANCE: in no acute distress, pleasant. SKIN: no suspicious lesions, warm and dry. HEART: Ejection systolic murmur aortic area with no 2nd heart sound, regular rate and rhythm. LUNGS: clear to auscultation bilaterally. ABDOMEN: soft, nontender. EXTREMITIES: 2+ edema to knees. PERIPHERAL PULSES: equal. NEUROLOGIC: No gross deficits, AAO X 3 Objective Labs and Meds Result diagrams: 01/21/22 04:43 01/21/22 04:43 Lab results: Laboratory Results - last 24 hr 01/20/22 01/20/22 01/20/22 12:36 12:36 12:36 WBC RBC Hgb Hct MCV MCH MCHC RDW Plt Count MPV Immature Gran % (Auto) Neut % (Auto) Lymph % (Auto) [place] % (Auto) Eos % (Auto) Baso % (Auto) Lymph # (Auto) [place] # (Auto) Eos # (Auto) Baso # (Auto) Abs Immat Gran (auto) Absolute Neuts (auto) Absolute Nucleated RBC Nucleated RBC % (auto) PT INR Sodium 135 Potassium 3.2 L Chloride 111 H Carbon Dioxide 15 L Anion Gap 12 BUN 21 H Creatinine 3.80 H Estim Creat Clear Calc 24.4 Estimated GFR 16 Random Glucose 91 Calcium 6.2 L D Magnesium 2.1 Total Bilirubin 0.2 Direct Bilirubin 0.2 AST 23 ALT 15 Alkaline Phosphatase 58 Troponin I High Sens B-Natriuretic Peptide 53 Total Protein 4.4 L Albumin 1.8 L COVID-19 ([facility]US) Negative COVID-19 Clin Com See Note 01/20/22 01/20/22 01/21/22 12:36 12:36 04:43 WBC 6.2 RBC 3.53 L Hgb 11.4 L Hct 33.3 L MCV 94.3 MCH 32.3 MCHC 34.2 RDW 14.5 Plt Count 345 MPV 9.3 L Immature Gran % (Auto) 0.3 Neut % (Auto) 55.2 Lymph % (Auto) 29.7 [place] % (Auto) 9.3 Eos % (Auto) 3.9 Baso % (Auto) 1.6 Lymph # (Auto) 1.8 [place] # (Auto) 0.6 Eos # (Auto) 0.2 Baso # (Auto) 0.1 Abs Immat Gran (auto) 0.02 Absolute Neuts (auto) 3.4 Absolute Nucleated RBC 0.000 Nucleated RBC % (auto) 0.0 PT 10.4 INR 0.9 Sodium Potassium Chloride Carbon Dioxide Anion Gap BUN Creatinine Estim Creat Clear Calc Estimated GFR Random Glucose Calcium Magnesium Total Bilirubin Direct Bilirubin AST ALT Alkaline Phosphatase Troponin I High Sens 14.4 D B-Natriuretic Peptide Total Protein Albumin COVID-19 ([facility]US) COVID-19 Clin Com 01/21/22 01/21/22 04:43 04:43 WBC RBC Hgb Hct MCV MCH MCHC RDW Plt Count MPV Immature Gran % (Auto) Neut % (Auto) Lymph % (Auto) [place] % (Auto) Eos % (Auto) Baso % (Auto) Lymph # (Auto) [place] # (Auto) Eos # (Auto) Baso # (Auto) Abs Immat Gran (auto) Absolute Neuts (auto) Absolute Nucleated RBC Nucleated RBC % (auto) PT INR Sodium 137 Potassium 3.5 Chloride 113 H Carbon Dioxide 16 L Anion Gap 12 BUN 21 H Creatinine 4.02 H* Estim Creat Clear Calc 23.1 Estimated GFR 15 Random Glucose 76 Calcium 6.2 L Magnesium 2.1 Total Bilirubin Direct Bilirubin AST ALT Alkaline Phosphatase Troponin I High Sens B-Natriuretic Peptide Total Protein Albumin COVID-19 ([facility]) COVID-19 Clin Com Imaging Radiologist's impression: Impressions Chest X-Ray 01/20/22 11:33 IMPRESSION: Tiny bilateral pleural effusions Assessment and Plan (1) Aortic stenosis: Status: Acute (2) Anasarca associated with disorder of kidney: Status: Acute Plan 66-year-old gentleman with membraneous nephropathy and nephrotic syndrome with diffuse anasarca. He recently was on Lasix drip in the hospital and was diuresed aggressively. He is back with more volume overload and shortness of breath. He is on furosemide and may require the Lasix drip again. With IV diuretics he is feeling better already though. He has severe aortic valve stenosis our plan was to do further workup as outpatient. Once again aortic stenosis is an i ncidental finding in this patient and is not the cause for diffuse anasarca. Once kidney function stabilized and we can do further workup as outpatient for aortic valve. Currently I think he is not symptomatic from aortic stenosis but it will need further workup as outpatient. We will sign off for now. Please page if any new questions arise. Procedures Date of Service Date of Service: 01/21/22
--- NOTE | 2022-01-21 15:16 | HO.PM.IMPN ---
Subjective Subjective Date of Service: 01/21/22 Interval History: the patient was seen and evaluated this morning Laying in bed, feels comfortable edema is much less than previous admissions as the patient came here earlier this time Denies any fever, chills or shortness of breath No reported other overnight events. Systemic review: No fever, chills or weakness No chest pain, palpitation But has edema lower extremities No shortness of breath or coughing No abdominal pain, nausea or vomiting No urinary symptoms No any rash or wounds Physical Exam Vital Signs: Vital Signs: Last Vital Signs Temp 97.9 F 01/21/22 11:37 Pulse 75 01/21/22 11:37 Resp 17 01/21/22 11:37 BP 126/54 L 01/21/22 11:37 Pulse Ox 100 01/21/22 11:37 O2 Del Method 01/21/22 11:37 BMI result Body Mass Index 34.8 Const: Other: Constitutional : Alert, oriented, not in distress Neck : Normal inspection, Supple Cardiovascular : RRR, no JVP, +2 bilateral lower extremity edema Respiratory : fair bilateral air entry, no crackles, wheezes or rhonchi Gastrointestinal: soft, lax, Normal bowel sounds, Non tender Skin : Warm, Dry Neurological : Alert & oriented x3, No focal deficit , CN 2-12 within normal Objective Data Active Medications Acetaminophen (Acetaminophen 325 Mg Tablet) 650 mg PO Q6H PRN PRN Reason: Pain, Mild (Pain Scale 1-3) Amlodipine Besylate (Amlodipine Besylate 5 Mg Tablet) 5 mg PO DAILY [facility]; Protocol Last Admin: 01/21/22 08:53 Dose: 5 mg Documented By: ELISABETH Atorvastatin Calcium (Atorvastatin Calcium 40 Mg Tablet) 40 mg PO DAILY [facility] Last Admin: 01/21/22 08:53 Dose: 40 mg Documented By: ELISABETH Furosemide (Furosemide 40 Mg/4 Ml Vial) 60 mg IVPUSH DAILY [facility]; Protocol Last Admin: 01/21/22 08:53 Dose: 60 mg Documented By: ELISABETH Heparin Sodium (Porcine) (Heparin Sodium,Porcine 5,000 Unit/Ml Vial) 5,000 unit SUBCUT Q8H [facility] Last Admin: 01/21/22 14:28 Dose: 5,000 unit Documented By: ELISABETH Levothyroxine Sodium (Levothyroxine Sodium 75 Mcg Tablet) 75 mcg PO 0600 [facility] Last Admin: 01/21/22 06:53 Dose: 75 mcg Documented By: CARIADD Lisinopril (Lisinopril 2.5 Mg Tablet) 2.5 mg PO DAILY [facility]; Protocol Last Admin: 01/21/22 08:53 Dose: 2.5 mg Documented By: ELISABETH Melatonin (Melatonin 3 Mg Tablet) 6 mg PO BEDTIME PRN PRN Reason: Insomnia Senna (Sennosides 8.6 Mg Tablet) 17.2 mg PO BEDTIME PRN PRN Reason: Constipation Sodium Chloride (0.9 % Sodium Chloride Flush 3 Ml Syringe) 3 ml IVFLUSH QSHIFT [facility] Last Admin: 01/21/22 14:58 Dose: Not Given Documented By: ELISABETH Non-Admin Reason: Med Not Available Labs CBC & Chem 7: 01/21/22 04:43 01/21/22 04:43 Labs: Laboratory Results - last 24 hr 01/21/22 01/21/22 01/21/22 04:43 04:43 04:43 MCV 94.3 MCH 32.3 MCHC 34.2 RDW 14.5 Plt Count 345 MPV 9.3 L Immature Gran % (Auto) 0.3 Neut % (Auto) 55.2 Lymph % (Auto) 29.7 [place] % (Auto) 9.3 Eos % (Auto) 3.9 Baso % (Auto) 1.6 Lymph # (Auto) 1.8 [place] # (Auto) 0.6 Eos # (Auto) 0.2 Baso # (Auto) 0.1 Abs Immat Gran (auto) 0.02 Absolute Neuts (auto) 3.4 Absolute Nucleated RBC 0.000 Nucleated RBC % (auto) 0.0 Anion Gap 12 Estim Creat Clear Calc 23.1 Estimated GFR 15 Random Glucose 76 Calcium 6.2 L Magnesium 2.1 Assessment and Plan (1) Acute hypokalemia: Status: Acute (2) Anasarca associated with disorder of kidney: Status: Acute Plan 66-year-old male with a past medical history of hypertension, hyperlipidemia, diabetes, CKD, CHF, nephritis syndrome, aortic stenosis, hiatal hernia; presented to the hospital today with a chief complaint of shortness of breath. Noted to be in volume overload in the setting of CHF/CKD/nephrotic syndrome. Admitted to the hospital for further management. anasarca secondary to nephrotic syndrome continue Lasix 60 mg IV daily Nephrology consult Daily weights and I's and O's fluid restrictions Hypokalemia Repleted Follow BMP ?CKD stage 3 Creatinine stable around 3.8-4 patient will need close monitoring and might eventually in the on dialysis History of diabetes Insulin sliding scale. Hold home oral hypoglycemic agents. History of hypertension Continue home blood History of hypothyroidism Continue home levothyroxine DVT prophylaxis: Subcu heparin Code status: Full code The patient will need continue patient stay for treatment of nephrotic syndrome with fluid overload until we get dry weight pending kidney function monitoring per nephrology team. Quality Stroke Does the patient have a stroke diagnosis?: No VTE Prior VTE?: No VTE Risk Level:: Medical - moderate - high VTE Device Contraindication: Treatment Not Indicated VTE Drug Contraindication: N/A - Med Ordered
--- NOTE | 2022-01-21 16:03 | CONS_ITS ---
DATE OF SERVICE: 01/21/2022 REASON FOR CONSULTATION: I was called to see this patient to assist in the management of patient's advanced renal failure and edema. HISTORY OF PRESENT ILLNESS: Milan is well known to us. 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 He was recently hospitalized with significant edema and he was treated successfully with diuretics and sent home. He comes back again with increasing leg edema. He denies any shortness of breath. No chest pain, nausea, or vomiting. No urinary symptoms. Appetite is okay. The serum creatinines are 4.2 mg/dL and hence this consultation. ONGOING MEDICAL PROBLEMS: Include advanced renal failure, history of obesity, diabetes mellitus, membranous nephropathy by biopsy, history of congestive heart failure class 1, diverticulosis, hiatal hernia, history of small-bowel obstruction in the past. SOCIAL HISTORY: No history of any alcohol abuse or drug abuse. MEDICATIONS: Home medications reviewed. REVIEW OF SYSTEM: As per history and physical. PHYSICAL EXAMINATION: GENERAL: Milan is a middle-aged man, who is obese. He is comfortable, lying flat. NECK: Supple. No JVD. LUNGS: Air entry equal. HEART: S1, S2 heard. No gallop. ABDOMEN: Obese, soft, nontender. EXTREMITIES: With 3+ edema. No rash. No clubbing. VITAL SIGNS: Blood pressure today was 126/54, pulse 75. LABORATORY DATA: Hemoglobin 11.4, platelets 345. Sodium 137, potassium 3.2, CO2 16, BUN 20, creatinine 4.02. Albumin 1.8. IMPRESSION: A 66-year-old man with advanced renal failure in the setting of membranous nephropathy with severe fluid overload. RECOMMENDATIONS: Start on IV Lasix 60 mg twice a day. If he does not respond, we will switch to a Lasix drip. Keep him on low-sodium diet. Leg elevation. Presently has no overt signs or symptoms of uremia. However, if the patient respond to diuretics, might have to start him on dialysis. We will follow him over the next few days and decide. We will follow along with the team. MD GUNNAR Payton/MODL / [id number]
[2022-01-21] MEDS: Potassium Chloride Packet 20 MEQ PACKET 40 MEQ PO (17:25)
[2022-01-22] MEDS: Levothyroxine Sodium 75 MCG TABLET PO (06:15)
[2022-01-22] MEDS: Heparin Sodium,Porcine 5,000 UNIT/ML VIAL 5000 UNIT SUBCUT ×3 (06:42→20:58)
[2022-01-22 07:30] VITALS: BP 130/75; PULSE 68; RESP 20; TEMP 37.1; O2SAT 98
[2022-01-22] MEDS: Atorvastatin Calcium 40 MG TABLET PO (09:05)
[2022-01-22] MEDS: amLODIPine Besylate 5 MG TABLET PO (09:05)
[2022-01-22] MEDS: lisinopriL 2.5 MG TABLET PO (09:05)
[2022-01-22] MEDS: 0.9 % Sodium Chloride Flush 3 ML SYRINGE IVFLUSH ×2 (09:05→17:20)
[2022-01-22] MEDS: Furosemide 40 MG/4 ML VIAL 60 MG IVPUSH ×2 (09:05→17:20)
[2022-01-22 10:49] LABS: B Type Natriuretic Peptide 44 pg/mL (<100)
[2022-01-22 10:53] LABS: Anion Gap 12 (12-20); Blood Urea Nitrogen 21 mg/dL (9-16); Calcium 6.3 mg/dL (8.4-10.2); Carbon Dioxide 15 mmol/L (22-29); Chloride 114 mmol/L (96-108); Creatinine Clr Calc Pharmacy 24.6; Estimated Glomerular Filt Rate 16; Glucose Random 141 mg/dL (60-115); Potassium 3.5 mmol/L (3.3-5.1); Sodium 137 mmol/L (135-145)
--- NOTE | 2022-01-22 10:58 | PM.PNNEP ---
Subjective Subjective Date of Service: 02/23/22 Interval history: Events noted Feels better Denies dyspnea Physical Exam Vital Signs: Vital Signs: Last Vital Signs Temp 98.7 F 01/22/22 07:30 Pulse 68 01/22/22 07:30 Resp 20 01/22/22 07:30 BP 130/75 01/22/22 07:30 Pulse Ox 98 01/22/22 07:30 O2 Del Method 01/22/22 07:30 BMI result Body Mass Index 34.8 Const: Other: Constitutional : Alert, oriented, not in distress Neck : Normal inspection, Supple Cardiovascular : RRR, no JVP, +3 bilateral lower extremity edema Respiratory : fair bilateral air entry, no crackles, wheezes or rhonchi Gastrointestinal: soft, lax, Normal bowel sounds, Non tender Skin : Warm, Dry Neurological : Alert & oriented x3, No focal deficit , Objective Data Labs CBC & Chem 7: 01/21/22 04:43 01/26/22 05:55 Labs: Laboratory Results - last 24 hr 01/22/22 01/22/22 10:02 10:02 Sodium 137 Potassium 3.5 Chloride 114 H Carbon Dioxide 15 L Anion Gap 12 BUN 21 H Creatinine 3.77 H Estim Creat Clear Calc 24.6 Estimated GFR 16 Random Glucose 141 H D Calcium 6.3 L B-Natriuretic Peptide 44 Procedures Date of Service Date of Service: 01/22/22 Assessment & Plan Assessment and plan (1) CKD (chronic kidney disease) stage 3, GFR 30-59 ml/min: Status: Acute Plan 66-year-old man with 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 Suugest Lasix IV BID Goal to keep O > I by 1- 2L per 24 hrs If response is poor, would switch to Lasix drip low salt diet No indication for dialysis yet Watch K Time Spent With Patient Time: Total time spent is greater than 50% in coordination of care (as documented) at patient's floor/unit and/or counseling patient: Progress Note: Quality Stroke Does the patient have a stroke diagnosis?: No
[2022-01-22 11:44] VITALS: BP 135/75; PULSE 68; RESP 20; TEMP 37.1; O2SAT 98
--- NOTE | 2022-01-22 14:07 | P.PNIM_ITS ---
Subjective Subjective Date of Service: 01/22/22 Interval History: Seen and examined this morning Follow-up for anasarca No specific complaints No shortness of breath Review of Systems Review of Systems: Yes all other systems are reviewed and are negative Constitutional Constitutional: Denies chills and Denies fever(s) Cardiovascular Cardiovascular: Denies chest pain and Denies dyspnea Respiratory Respiratory: Denies dyspnea Gastrointestinal Gastrointestinal: Denies abdominal pain Physical Exam Vital Signs: Vital Signs: Last Vital Signs Temp 98.8 F 01/22/22 11:44 Pulse 68 01/22/22 11:44 Resp 20 01/22/22 11:44 BP 135/75 01/22/22 11:44 Pulse Ox 98 01/22/22 11:44 O2 Del Method 01/22/22 11:44 BMI result Body Mass Index 34.8 Const: General: cooperative, comfortable, alert and awake Nutritional Appearance: overweight Orientation/consciousness: patient oriented x3 Resp: Effort & Inspection: normal respiratory effort and able to speak in complete sentences Auscultation: diminished lung sounds Cardio: Rate: regular rate Heart sounds: Murmur heart sound present GI: Palpation (GI): Soft to palpation and nontender Neuro: General: patient oriented x3 Extrem: Other: Bilateral lower extremity edema to thigh; generalized swelling Objective Data Active Medications Acetaminophen (Acetaminophen 325 Mg Tablet) 650 mg PO Q6H PRN PRN Reason: Pain, Mild (Pain Scale 1-3) Amlodipine Besylate (Amlodipine Besylate 5 Mg Tablet) 5 mg PO DAILY [facility] 234 BEDS AT THE [facility]; Protocol Last Admin: 01/22/22 09:05 Dose: 5 mg Documented By: KHUSHBU Atorvastatin Calcium (Atorvastatin Calcium 40 Mg Tablet) 40 mg PO DAILY [facility]CLUDE 234 BEDS AT THE [facility] Last Admin: 01/22/22 09:05 Dose: 40 mg Documented By: KHUSHBU Furosemide (Furosemide 40 Mg/4 Ml Vial) 60 mg IVPUSH BID@0900,1800 COUNTS INCLUDE 234 BEDS AT THE [facility]; Protocol Last Admin: 01/22/22 09:05 Dose: 60 mg Documented By: KHUSHBU Heparin Sodium (Porcine) (Heparin Sodium,Porcine 5,000 Unit/Ml Vial) 5,000 unit SUBCUT Q8H COUNTS INCLUDE 234 BEDS AT THE [facility] Last Admin: 01/22/22 06:42 Dose: 5,000 unit Documented By: REFUGIO Levothyroxine Sodium (Levothyroxine Sodium 75 Mcg Tablet) 75 mcg PO 0600 COUNTS INCLUDE 234 BEDS AT THE [facility] Last Admin: 01/22/22 06:15 Dose: 75 mcg Documented By: REFUGIO Lisinopril (Lisinopril 2.5 Mg Tablet) 2.5 mg PO DAILY [facility]S [facility]CLUDE 234 BEDS AT THE [facility]; Protocol Last Admin: 01/22/22 09:05 Dose: 2.5 mg Documented By: KHUSHBU Melatonin (Melatonin 3 Mg Tablet) 6 mg PO BEDTIME PRN PRN Reason: Insomnia Senna (Sennosides 8.6 Mg Tablet) 17.2 mg PO BEDTIME PRN PRN Reason: Constipation Sodium Chloride (0.9 % Sodium Chloride Flush 3 Ml Syringe) 3 ml IVFLUSH QSHIFT COUNTS INCLUDE 234 BEDS AT THE [facility] Last Admin: 01/22/22 09:05 Dose: 3 ml Documented By: KHUSHBU Labs CBC & Chem 7: 01/21/22 04:43 01/22/22 10:02 Labs: Laboratory Results - last 24 hr 01/22/22 01/22/22 10:02 10:02 Anion Gap 12 Estim Creat Clear Calc 24.6 Estimated GFR 16 Random Glucose 141 H D Calcium 6.3 L B-Natriuretic Peptide 44 Assessment and Plan (1) Anasarca associated with disorder of kidney: Status: Acute Plan 66-year-old male with a past medical history of hypertension, hyperlipidemia, diabetes, CKD, CHF, nephritis syndrome, aortic stenosis, hiatal hernia; presented to the hospital today with a chief complaint of shortness of breath. Noted to be in volume overload in the setting of CHF/CKD/nephrotic syndrome. Admitted to the hospital for further management. anasarca secondary to nephrotic syndrome History of membranous nephropathy Increase Lasix to b.i.d. per Nephrology recommendation Daily weights and I's and O's fluid restrictions Metabolic acidosis Secondary to renal dysfunction Bicarb 15 Will discuss with Nephrology about need to start sodium bicarb Hypokalemia Repleted Follow BMP ?CKD stage 3 Creatinine stable around 3.8-4 patient will need close monitoring and might eventually need dialysis History of diabetes Insulin sliding scale. Hold home oral hypoglycemic agents. History of hypertension Continue home blood History of hypothyroidism Continue home levothyroxine DVT prophylaxis: Subcu heparin Code status: Full code Attending-Dr. Squires Requires ongoing inpatient hospitalization for IV diuresis Quality Stroke Does the patient have a stroke diagnosis?: No VTE Prior VTE?: No VTE Risk Level:: Medical - moderate - high VTE Device Contraindication: Treatment Not Indicated VTE Drug Contraindication: N/A - Med Ordered
--- NOTE | 2022-01-22 14:28 | P.CDIC_ITS ---
CDI Concurrent Query Documentation Clarification: PHYSICIAN'S DOCUMENTATION REQUEST Date of Query: 01/22/22 1428 Patient Name: Milan Angeles Admit Date: 01/20/22 Dear Doctor, A review of the medical record indicates additional documentation may be needed. Please review below and update the documentation accordingly. Clinical Indicators: Risk Factors/Clinical Indicators/Treatments Per MD progress note 01/22/22: Noted to be in volume overload in the setting of CHF /CKD/nephrotic syndrome. IV Lasix Please provide further specificity regarding the most likely type and acuity of CHF you are evaluating, treating, or monitoring. Examples include: Type: * Systolic * Diastolic * Combined Systolic/Diastolic * Other ? please specify * Unable to determine Acuity: * Acute * Chronic * Acute on chronic * Unable to determine Use of terms such as suspected, likely, concern for, or probable (associated with a specific diagnosis that is being evaluated, monitored, or treated as if it exists) are acceptable and can be coded in the inpatient setting, when documented at the time of discharge. Thank you, Sapna Parnell RN Extension: [phone] Please use your independent medical judgment in providing your response. THIS QUERY IS PART OF THE PERMANENT MEDICAL RECORD Provider Response: Other (no chf) Other Diagnosis: no chf
[2022-01-22 15:15] VITALS: BP 120/65; PULSE 73; RESP 14; TEMP 37.2; O2SAT 99
[2022-01-22 20:00] VITALS: BP 119/66; PULSE 76; RESP 18; TEMP 36.5; O2SAT 98
[2022-01-22 23:36] VITALS: BP 124/67; PULSE 68; RESP 18; TEMP 36.4; O2SAT 99
[2022-01-23] VITALS (7 sets, daily range): BP systolic 114–136; BP diastolic 57–87; PULSE 63–84; RESP 16–20; TEMP 36.3–37.1; O2SAT 97–100
[2022-01-23] MEDS: 0.9 % Sodium Chloride Flush 3 ML SYRINGE IVFLUSH ×2 (01:34→08:34)
[2022-01-23] MEDS: Heparin Sodium,Porcine 5,000 UNIT/ML VIAL 5000 UNIT SUBCUT ×3 (05:07→20:42)
[2022-01-23] MEDS: Levothyroxine Sodium 75 MCG TABLET PO (05:11)
[2022-01-23 07:38] LABS: Anion Gap 11 (12-20); Blood Urea Nitrogen 21 mg/dL (9-16); Calcium 6.4 mg/dL (8.4-10.2); Carbon Dioxide 17 mmol/L (22-29); Chloride 114 mmol/L (96-108); Creatinine Clr Calc Pharmacy 25.2; Estimated Glomerular Filt Rate 17; Glucose Random 89 mg/dL (60-115); Sodium 138 mmol/L (135-145)
--- NOTE | 2022-01-23 08:32 | PM.PNNEP ---
Subjective Subjective Date of Service: 01/23/22 Interval history: Seen and examined this morning Follow-up for anasarca No specific complaints No shortness of breath Physical Exam Vital Signs: Vital Signs: Last Vital Signs Temp 97.3 F 01/23/22 07:45 Pulse 63 01/23/22 07:45 Resp 20 01/23/22 07:45 BP 127/66 01/23/22 07:45 Pulse Ox 98 01/23/22 07:45 O2 Del Method 01/23/22 07:45 BMI result Body Mass Index 34.8 Const: Other: Constitutional : Alert, oriented, not in distress Neck : Normal inspection, Supple Cardiovascular : RRR, no JVP, +3 bilateral lower extremity edema Respiratory : fair bilateral air entry, no crackles, wheezes or rhonchi Gastrointestinal: soft, lax, Normal bowel sounds, Non tender Skin : Warm, Dry Neurological : Alert & oriented x3, No focal deficit , General: cooperative, comfortable, alert and awake Nutritional Appearance: overweight Orientation/consciousness: patient oriented x3 Resp: Effort & Inspection: normal respiratory effort and able to speak in complete sentences Auscultation: diminished lung sounds Cardio: Rate: regular rate Heart sounds: Murmur heart sound present GI: Palpation (GI): Soft to palpation and nontender Neuro: General: patient oriented x3 Extrem: Other: Bilateral lower extremity edema to thigh; generalized swelling Objective Data Labs CBC & Chem 7: 01/21/22 04:43 01/23/22 06:38 Labs: Laboratory Results - last 24 hr 01/22/22 01/22/22 01/23/22 10:02 10:02 06:38 Sodium 137 138 Potassium 3.5 4.0 Chloride 114 H 114 H Carbon Dioxide 15 L 17 L Anion Gap 12 11 L BUN 21 H 21 H Creatinine 3.77 H 3.69 H Estim Creat Clear Calc 24.6 25.2 Estimated GFR 16 17 Random Glucose 141 H D 89 D Calcium 6.3 L 6.4 L B-Natriuretic Peptide 44 Procedures Date of Service Date of Service: 01/23/22 Assessment & Plan Assessment and plan (1) Anasarca associated with disorder of kidney: Status: Acute Plan 66-year-old male with a past medical history of hypertension, hyperlipidemia, diabetes, CKD, CHF, nephritis syndrome, aortic stenosis, hiatal hernia; presented to the hospital today with a chief complaint of shortness of breath. Noted to be in volume overload in the setting of CHF/CKD/nephrotic syndrome. Admitted to the hospital for further management. anasarca secondary to nephrotic syndrome History of membranous nephropathy Increase Lasix to b.i.d. per Nephrology recommendation Daily weights and I's and O's fluid restrictions Metabolic acidosis Secondary to renal dysfunction would start sodium bicarb Follow BMP ?CKD stage 3 Creatinine stable around 3.8-4 History of diabetes Insulin sliding scale. Hold home oral hypoglycemic agents. History of hypertension Continue home blood History of hypothyroidism Continue home levothyroxine will see if immunosupression would help treat his nephrotic syndrome Time Spent With Patient Time: Total time spent is greater than 50% in coordination of care (as documented) at patient's floor/unit and/or counseling patient: Progress Note: Quality Stroke Does the patient have a stroke diagnosis?: No
[2022-01-23] MEDS: Atorvastatin Calcium 40 MG TABLET PO (08:33)
[2022-01-23] MEDS: Furosemide 40 MG/4 ML VIAL 60 MG IVPUSH (08:33)
[2022-01-23] MEDS: amLODIPine Besylate 5 MG TABLET PO (08:33)
[2022-01-23] MEDS: lisinopriL 2.5 MG TABLET PO (08:33)
[2022-01-23 09:01] LABS: Iron 62 mcg/dL (45-160); Percent Iron Saturation 45 % (15-50); Total Iron Binding Capacity 137 mcg/dL (228-428); Unsaturated Iron Binding 75 ug/dL
[2022-01-23 09:19] LABS: Ferritin 153 ng/mL (20-250)
--- NOTE | 2022-01-23 11:06 | HO.PM.IMPN ---
Subjective Subjective Date of Service: 01/23/22 Interval History: Seen and examined this morning Follow-up for anasarca Patient denies any chest pain, no shortness of breath at this time Review of Systems Review of Systems: Yes all other systems are reviewed and are negative Constitutional Constitutional: Denies chills and Denies fever(s) Cardiovascular Cardiovascular: Denies chest pain, Denies palpitations and Denies dyspnea Respiratory Respiratory: Denies cough and Denies dyspnea Gastrointestinal Gastrointestinal: Denies abdominal pain Endocrine Endocrine: Denies palpitations Physical Exam Vital Signs: Vital Signs: Last Vital Signs Temp 97.3 F 01/23/22 07:45 Pulse 72 01/23/22 08:32 Resp 20 01/23/22 07:45 BP 132/87 01/23/22 08:32 Pulse Ox 98 01/23/22 07:45 O2 Del Method 01/23/22 07:45 BMI result Body Mass Index 34.8 Const: General: cooperative, comfortable, alert and awake Nutritional Appearance: overweight Orientation/consciousness: patient oriented x3 Resp: Effort & Inspection: normal respiratory effort and able to speak in complete sentences Auscultation: diminished lung sounds Cardio: Rate: regular rate Heart sounds: Murmur heart sound present systolic GI: Palpation (GI): Soft to palpation and nontender Neuro: General: patient oriented x3 Extrem: Other: Bilateral lower extremity edema to thigh; generalized swelling Objective Data Active Medications Acetaminophen (Acetaminophen 325 Mg Tablet) 650 mg PO Q6H PRN PRN Reason: Pain, Mild (Pain Scale 1-3) Amlodipine Besylate (Amlodipine Besylate 5 Mg Tablet) 5 mg PO DAILY [facility]; Protocol Last Admin: 01/23/22 08:33 Dose: 5 mg Documented By: KHUSHBU Atorvastatin Calcium (Atorvastatin Calcium 40 Mg Tablet) 40 mg PO DAILY [facility] Last Admin: 01/23/22 08:33 Dose: 40 mg Documented By: KHUSHBU Heparin Sodium (Porcine) (Heparin Sodium,Porcine 5,000 Unit/Ml Vial) 5,000 unit SUBCUT Q8H [facility] Last Admin: 01/23/22 05:07 Dose: 5,000 unit Documented By: EVANGELIST Furosemide 200 mg/ Sodium (Chloride) 100 mls @ 2.5 mls/hr IVCONT .Q24H [facility] Levothyroxine Sodium (Levothyroxine Sodium 75 Mcg Tablet) 75 mcg PO 0600 [facility] Last Admin: 01/23/22 05:11 Dose: 75 mcg Documented By: EVANGELIST Lisinopril (Lisinopril 2.5 Mg Tablet) 2.5 mg PO DAILY [facility]; Protocol Last Admin: 01/23/22 08:33 Dose: 2.5 mg Documented By: KHUSHBU Melatonin (Melatonin 3 Mg Tablet) 6 mg PO BEDTIME PRN PRN Reason: Insomnia Senna (Sennosides 8.6 Mg Tablet) 17.2 mg PO BEDTIME PRN PRN Reason: Constipation Sodium Chloride (0.9 % Sodium Chloride Flush 3 Ml Syringe) 3 ml IVFLUSH QSHIFT [facility] Last Admin: 01/23/22 08:34 Dose: 3 ml Documented By: KHUSHBU Labs CBC & Chem 7: 01/21/22 04:43 01/23/22 06:38 Labs: Laboratory Results - last 24 hr 01/23/22 01/23/22 06:28 06:38 Anion Gap 11 L Estim Creat Clear Calc 25.2 Estimated GFR 17 Random Glucose 89 D Calcium 6.4 L Iron 62 TIBC 137 L % Saturation 45 Unsat Iron Binding 75 Ferritin 153 Assessment and Plan (1) Aortic stenosis: Status: Acute (2) Anasarca associated with disorder of kidney: Status: Acute Plan 66-year-old male with a past medical history of hypertension, hyperlipidemia, diabetes, CKD, CHF, nephritis syndrome, aortic stenosis, hiatal hernia; presented to the hospital today with a chief complaint of shortness of breath. Noted to be in volume overload in the setting of CHF/CKD/nephrotic syndrome. Admitted to the hospital for further management. anasarca secondary membranous nephropathy Still significantly fluid overloaded Will change from bolus lasix to lasix drip Daily weights, strict I's and O's, fluid restriction Seen by Cardiology, although patient has severe , they do not feel that CHF is contributing at this time. BNP 44, Echocardiogram from December showing preserved EF nephrology following Follow electrolytes Metabolic acidosis Secondary to renal dysfunction Bicarb up to 17 Hold off on sodium bicarb to avoid salt load at this time Hypokalemia Repleted Follow BMP Severe will need outpatient follow up with cardiology CKD stage 3 h/o membranous nephropathy Creatinine stable around 3.8-4 patient will need close monitoring and might eventually need dialysis nephrology following History of diabetes Insulin sliding scale. Hold home oral hypoglycemic agents. HTN bp controlled at this time Continue Norvasc, lisinopril History of hypothyroidism Continue home levothyroxine DVT prophylaxis: Subcu heparin Code status: Full code Attending-Dr. Squires Requires ongoing inpatient hospitalization for IV diuresis Quality Stroke Does the patient have a stroke diagnosis?: No VTE Prior VTE?: No VTE Risk Level:: Medical - moderate - high VTE Device Contraindication: Treatment Not Indicated VTE Drug Contraindication: N/A - Med Ordered
--- NOTE | 2022-01-23 11:11 | MHC.CM.PN ---
Per ROUNDS discussion, Patient is not yet medically cleared for dc (IV Lasix); home/new VNA is the goal and CM will continue.
[2022-01-23] MEDS: Furosemide 200 MG in 0.9 % Sodium Chloride 80 ML IVCONT (12:28)
[2022-01-23 14:24] LABS: Appearance Urine CLEAR; Color Urine YELLOW; Glucose Urine UA >=1000 MG/DL (NEG); Leukocyte Esterase Urine NEG (NEG); Nitrite Urine NEG (NEG); Urine Blood 2+ (NEG); Urine Ketones 15 MG/DL (NEG); Urine Protein 3+ MG/DL (NEG-TRACE)
[2022-01-23] MEDS: methylPREDNISolone Sod Succ 125 MG/2 ML VIAL IVPUSH (14:35)
[2022-01-23] MEDS: Acetaminophen 325 MG TABLET 650 MG PO (14:35)
[2022-01-23] MEDS: diphenhydrAMINE HCL 50 MG/ML VIAL IVPUSH (14:35)
[2022-01-23 14:45] LABS: Squamous Epithelial Cell Urine 1+ /LPF; WBC Urine 0-2 /HPF (0-4)
[2022-01-23 14:46] LABS: RBC Urine 0-2 /HPF (0)
[2022-01-23] MEDS: Heparin Sodium,Porcine Flush 500 UNIT/5 ML SYRINGE IVFLUSH (23:57)
[2022-01-24 03:25] VITALS: BP 115/62; PULSE 71; RESP 16; TEMP 36.7; O2SAT 99
[2022-01-24] MEDS: Heparin Sodium,Porcine 5,000 UNIT/ML VIAL 5000 UNIT SUBCUT ×3 (05:47→20:59)
[2022-01-24] MEDS: Levothyroxine Sodium 75 MCG TABLET PO (05:47)
[2022-01-24 07:09] LABS: Anion Gap 11 (12-20); Blood Urea Nitrogen 23 mg/dL (9-16); Calcium 6.7 mg/dL (8.4-10.2); Carbon Dioxide 15 mmol/L (22-29); Chloride 114 mmol/L (96-108); Estimated Glomerular Filt Rate 16; Glucose Random 170 mg/dL (60-115); Potassium 4.1 mmol/L (3.3-5.1); Sodium 136 mmol/L (135-145)
[2022-01-24 07:15] VITALS: BP 128/67; PULSE 70; RESP 16; TEMP 36.2; O2SAT 98
--- NOTE | 2022-01-24 08:17 | PM.PNNEP ---
Subjective Subjective Date of Service: 01/24/22 Interval history: Seen and examined this morning Follow-up for anasarca Patient denies any chest pain, no shortness of breath at this time Physical Exam Vital Signs: Vital Signs: Last Vital Signs Temp 97.2 F 01/24/22 07:15 Pulse 70 01/24/22 07:15 Resp 16 01/24/22 07:15 BP 128/67 01/24/22 07:15 Pulse Ox 98 01/24/22 07:15 O2 Del Method 01/24/22 07:15 BMI result Body Mass Index 34.8 Const: Other: Constitutional : Alert, oriented, not in distress Neck : Normal inspection, Supple Cardiovascular : RRR, no JVP, +3 bilateral lower extremity edema Respiratory : fair bilateral air entry, no crackles, wheezes or rhonchi Gastrointestinal: soft, lax, Normal bowel sounds, Non tender Skin : Warm, Dry Neurological : Alert & oriented x3, No focal deficit , General: cooperative, comfortable, alert and awake Nutritional Appearance: overweight Orientation/consciousness: patient oriented x3 Resp: Effort & Inspection: normal respiratory effort and able to speak in complete sentences Auscultation: diminished lung sounds Cardio: Rate: regular rate Heart sounds: Murmur heart sound present systolic GI: Palpation (GI): Soft to palpation and nontender Neuro: General: patient oriented x3 Extrem: Other: Bilateral lower extremity edema to thigh; generalized swelling Objective Data Labs CBC & Chem 7: 01/21/22 04:43 01/24/22 06:22 Labs: Laboratory Results - last 24 hr 01/23/22 01/23/22 01/23/22 01:35 06:28 13:35 Sodium Potassium Chloride Carbon Dioxide Anion Gap BUN Creatinine Estim Creat Clear Calc Estimated GFR Random Glucose Calcium Magnesium Iron 62 TIBC 137 L % Saturation 45 Unsat Iron Binding 75 Ferritin 153 Urine Color YELLOW Urine Appearance CLEAR Urine pH 7.0 Ur Specific [place] 1.020 Urine Protein 3+ H Urine Glucose (UA) >=1000 H Urine Ketones 15 Urine Blood 2+ H Urine Nitrite NEG Ur Leukocyte Esterase NEG Urine RBC 0-2 Urine WBC 0-2 Ur Squamous Epith Cells 1+ Urine Bacteria NONE Hyaline Casts 5-9 Urine Creatinine 69.30 Urine Microalbumin 8096.0 Microalb/Creat Ratio 10100.5 01/24/22 06:22 Sodium 136 Potassium 4.1 Chloride 114 H Carbon Dioxide 15 L Anion Gap 11 L BUN 23 H Creatinine 3.72 H Estim Creat Clear Calc 25.0 Estimated GFR 16 Random Glucose 170 H D Calcium 6.7 L Magnesium 2.0 Iron TIBC % Saturation Unsat Iron Binding Ferritin Urine Color Urine Appearance Urine pH Ur Specific [place] Urine Protein Urine Glucose (UA) Urine Ketones Urine Blood Urine Nitrite Ur Leukocyte Esterase Urine RBC Urine WBC Ur Squamous Epith Cells Urine Bacteria Hyaline Casts Urine Creatinine Urine Microalbumin Microalb/Creat Ratio Procedures Date of Service Date of Service: 01/24/22 Assessment & Plan Assessment and plan (1) Aortic stenosis: Status: Acute (2) Anasarca associated with disorder of kidney: Status: Acute Plan 66-year-old male with a past medical history of hypertension, hyperlipidemia, diabetes, CKD, CHF, nephritis syndrome, aortic stenosis, hiatal hernia; presented to the hospital today with a chief complaint of shortness of breath. Noted to be in volume overload in the setting of CHF/CKD/nephrotic syndrome. Admitted to the hospital for further management. anasarca secondary membranous nephropathy Still significantly fluid overloaded Will change from bolus lasix to lasix drip Daily weights, strict I's and O's, fluid restriction Seen by Cardiology, although patient has severe , they do not feel that CHF is contributing at this time. BNP 44, Echocardiogram from December showing preserved EF nephrology following Follow electrolytes Metabolic acidosis Secondary to renal dysfunction Bicarb up to 17 Hold off on sodium bicarb to avoid salt load at this time Hypokalemia Repleted Follow BMP Severe will need outpatient follow up with cardiology CKD stage 3 h/o membranous nephropathy Creatinine stable around 3.8-4 I gave a dose of rituxan 1 gram he will f/u as OP with Dr Ribeiro in [place] office on IV lasix now Time Spent With Patient Time: Total time spent is greater than 50% in coordination of care (as documented) at patient's floor/unit and/or counseling patient: Progress Note: Quality Stroke Does the patient have a stroke diagnosis?: No
[2022-01-24] MEDS: Atorvastatin Calcium 40 MG TABLET PO (08:33)
[2022-01-24] MEDS: 0.9 % Sodium Chloride Flush 3 ML SYRINGE IVFLUSH (08:33)
[2022-01-24] MEDS: lisinopriL 2.5 MG TABLET PO (08:33)
[2022-01-24] MEDS: amLODIPine Besylate 5 MG TABLET PO (08:33)
--- NOTE | 2022-01-24 10:00 | HO.PM.IMPN ---
Subjective Subjective Date of Service: 01/24/22 Review of Systems Follow up CHF feeling better no chest pain or sob Physical Exam Vital Signs: Vital Signs: Last Vital Signs Temp 97.2 F 01/24/22 07:15 Pulse 70 01/24/22 07:15 Resp 16 01/24/22 07:15 BP 128/67 01/24/22 07:15 Pulse Ox 98 01/24/22 07:15 O2 Del Method 01/24/22 07:15 BMI result Body Mass Index 34.8 Appearing in no acute distress lung sounds are clear to auscultation heart regular rate rhythm, clear S1, S2, +2-3 LE edema positive bowel sounds, abdomen is soft, nontender neuro patient is alert x3, no focal deficits Objective Data Active Medications Acetaminophen (Acetaminophen 325 Mg Tablet) 650 mg PO Q6H PRN PRN Reason: Pain, Mild (Pain Scale 1-3) Amlodipine Besylate (Amlodipine Besylate 5 Mg Tablet) 5 mg PO DAILY [facility]; Protocol Last Admin: 01/24/22 08:33 Dose: 5 mg Documented By: YAIR Atorvastatin Calcium (Atorvastatin Calcium 40 Mg Tablet) 40 mg PO DAILY [facility] Last Admin: 01/24/22 08:33 Dose: 40 mg Documented By: YAIR Heparin Sodium (Porcine) (Heparin Sodium,Porcine 5,000 Unit/Ml Vial) 5,000 unit SUBCUT Q8H [facility] Last Admin: 01/24/22 05:47 Dose: 5,000 unit Documented By: SHERRIE Furosemide 200 mg/ Sodium (Chloride) 100 mls @ 2.5 mls/hr IVCONT .Q24H [facility] Last Admin: 01/23/22 12:28 Dose: 5 mg/hr, 2.5 mls/hr Documented By: KHUSHBU Levothyroxine Sodium (Levothyroxine Sodium 75 Mcg Tablet) 75 mcg PO 0600 [facility] Last Admin: 01/24/22 05:47 Dose: 75 mcg Documented By: SHERRIE Lisinopril (Lisinopril 2.5 Mg Tablet) 2.5 mg PO DAILY [facility]; Protocol Last Admin: 01/24/22 08:33 Dose: 2.5 mg Documented By: YAIR Melatonin (Melatonin 3 Mg Tablet) 6 mg PO BEDTIME PRN PRN Reason: Insomnia Senna (Sennosides 8.6 Mg Tablet) 17.2 mg PO BEDTIME PRN PRN Reason: Constipation Sodium Chloride (0.9 % Sodium Chloride Flush 3 Ml Syringe) 3 ml IVFLUSH QSHIFT [facility] Last Admin: 01/24/22 08:33 Dose: 3 ml Documented By: YAIR Labs CBC & Chem 7: 01/21/22 04:43 01/24/22 06:22 Labs: Laboratory Results - last 24 hr 01/23/22 01/23/22 01/24/22 01:35 13:35 06:22 Anion Gap 11 L Estim Creat Clear Calc 25.0 Estimated GFR 16 Random Glucose 170 H D Calcium 6.7 L Magnesium 2.0 Urine Color YELLOW Urine Appearance CLEAR Urine pH 7.0 Ur Specific [place] 1.020 Urine Protein 3+ H Urine Glucose (UA) >=1000 H Urine Ketones 15 Urine Blood 2+ H Urine Nitrite NEG Ur Leukocyte Esterase NEG Urine RBC 0-2 Urine WBC 0-2 Ur Squamous Epith Cells 1+ Urine Bacteria NONE Hyaline Casts 5-9 Urine Creatinine 69.30 Urine Microalbumin 8096.0 Microalb/Creat Ratio 62896.5 Assessment and Plan (1) Aortic stenosis: Status: Acute (2) Anasarca associated with disorder of kidney: Status: Acute Plan 66-year-old male with a past medical history of hypertension, hyperlipidemia, diabetes, CKD, CHF, nephritis syndrome, aortic stenosis, hiatal hernia; presented to the hospital today with a chief complaint of shortness of breath. Noted to be in volume overload in the setting of CHF/CKD/nephrotic syndrome. Admitted to the hospital for further management. Anasarca secondary membranous nephropathy Still significantly fluid overloaded Continue lasix drip Daily weights, strict I's and O's, fluid restriction Seen by Cardiology, although patient has severe , they do not feel that CHF is contributing at this time. BNP 44, Echocardiogram from December showing preserved EF nephrology following Follow BMP Metabolic acidosis Secondary to renal dysfunction Bicarb 15 Hold off on sodium bicarb to avoid salt load at this time Hypokalemia Repleted Follow BMP Severe will need outpatient follow up with cardiology CKD stage 3 h/o membranous nephropathy Creatinine stable around 3.8-4 patient will need close monitoring and might eventually need dialysis One dose of rituxan 1 gm as per nephrology History of diabetes SS, ada diet HTN bp controlled at this time Continue Norvasc, lisinopril History of hypothyroidism Continue home levothyroxine DVT prophylaxis: Subcu heparin Code status: Full code Attending Dr. Levin Requires ongoing inpatient hospitalization for IV diuresis Quality Stroke Does the patient have a stroke diagnosis?: No VTE Prior VTE?: No VTE Risk Level:: Medical - moderate - high VTE Device Contraindication: Treatment Not Indicated VTE Drug Contraindication: N/A - Med Ordered
[2022-01-24 11:43] VITALS: BP 116/63; PULSE 87; RESP 18; TEMP 36.3; O2SAT 99
[2022-01-24 19:20] VITALS: BP 107/63; PULSE 72; RESP 14; TEMP 36.3; O2SAT 98
[2022-01-24] MEDS: Furosemide 200 MG in 0.9 % Sodium Chloride 80 ML IVCONT (21:02)
[2022-01-24 23:09] VITALS: BP 105/61; PULSE 72; RESP 14; TEMP 36.4; O2SAT 98
[2022-01-25 03:08] VITALS: BP 112/63; PULSE 65; RESP 14; TEMP 36.1; O2SAT 100
[2022-01-25] MEDS: Heparin Sodium,Porcine 5,000 UNIT/ML VIAL 5000 UNIT SUBCUT ×3 (05:29→20:50)
[2022-01-25] MEDS: Levothyroxine Sodium 75 MCG TABLET PO (05:30)
[2022-01-25 07:07] LABS: Anion Gap 12 (12-20); Blood Urea Nitrogen 26 mg/dL (9-16); Calcium 6.7 mg/dL (8.4-10.2); Carbon Dioxide 13 mmol/L (22-29); Chloride 116 mmol/L (96-108); Creatinine Clr Calc Pharmacy 25.1; Estimated Glomerular Filt Rate 17; Glucose Random 91 mg/dL (60-115); Potassium 3.8 mmol/L (3.3-5.1); Sodium 137 mmol/L (135-145)
[2022-01-25 08:00] VITALS: BP 120/65; PULSE 64; RESP 19; TEMP 36.1; O2SAT 100
[2022-01-25] MEDS: amLODIPine Besylate 5 MG TABLET PO (10:02)
[2022-01-25] MEDS: lisinopriL 2.5 MG TABLET PO (10:02)
[2022-01-25] MEDS: Atorvastatin Calcium 40 MG TABLET PO (10:03)
--- NOTE | 2022-01-25 11:34 | HO.PM.IMPN ---
Subjective Subjective Date of Service: 01/25/22 Review of Systems Follow up CHF feeling better no chest pain or sob Physical Exam Vital Signs: Vital Signs: Last Vital Signs Temp 96.9 F 01/25/22 11:08 Pulse 59 01/25/22 11:08 Resp 17 01/25/22 11:08 BP 122/64 01/25/22 11:08 Pulse Ox 100 01/25/22 11:08 O2 Del Method 01/25/22 11:08 BMI result Body Mass Index 34.8 Appearing in no acute distress lung sounds are clear to auscultation heart regular rate rhythm, clear S1, S2 positive bowel sounds, abdomen is soft, nontender neuro patient is alert x3, no focal deficits Objective Data Active Medications Acetaminophen (Acetaminophen 325 Mg Tablet) 650 mg PO Q6H PRN PRN Reason: Pain, Mild (Pain Scale 1-3) Amlodipine Besylate (Amlodipine Besylate 5 Mg Tablet) 5 mg PO DAILY [facility]; Protocol Last Admin: 01/25/22 10:02 Dose: 5 mg Documented By: YAIR Atorvastatin Calcium (Atorvastatin Calcium 40 Mg Tablet) 40 mg PO DAILY [facility] Last Admin: 01/25/22 10:03 Dose: 40 mg Documented By: YAIR Heparin Sodium (Porcine) (Heparin Sodium,Porcine 5,000 Unit/Ml Vial) 5,000 unit SUBCUT Q8H [facility] Last Admin: 01/25/22 05:29 Dose: 5,000 unit Documented By: LAURA Furosemide 200 mg/ Sodium (Chloride) 100 mls @ 2.5 mls/hr IVCONT .Q24H [facility] Last Admin: 01/24/22 21:02 Dose: 5 mg/hr, 2.5 mls/hr Documented By: LAURA Levothyroxine Sodium (Levothyroxine Sodium 75 Mcg Tablet) 75 mcg PO 0600 [facility] Last Admin: 01/25/22 05:30 Dose: 75 mcg Documented By: LAURA Lisinopril (Lisinopril 2.5 Mg Tablet) 2.5 mg PO DAILY [facility]; Protocol Last Admin: 01/25/22 10:02 Dose: 2.5 mg Documented By: YAIR Melatonin (Melatonin 3 Mg Tablet) 6 mg PO BEDTIME PRN PRN Reason: Insomnia Senna (Sennosides 8.6 Mg Tablet) 17.2 mg PO BEDTIME PRN PRN Reason: Constipation Sodium Chloride (0.9 % Sodium Chloride Flush 3 Ml Syringe) 3 ml IVFLUSH QSHIFT [facility] Last Admin: 01/25/22 09:55 Dose: Not Given Documented By: YAIR Non-Admin Reason: IV Running Labs CBC & Chem 7: 01/21/22 04:43 01/25/22 06:17 Labs: Laboratory Results - last 24 hr 01/25/22 06:17 Anion Gap 12 Estim Creat Clear Calc 25.1 Estimated GFR 17 Random Glucose 91 D Calcium 6.7 L Assessment and Plan (1) Aortic stenosis: Status: Acute (2) Anasarca associated with disorder of kidney: Status: Acute Plan 66-year-old male with a past medical history of hypertension, hyperlipidemia, diabetes, CKD, CHF, nephritis syndrome, aortic stenosis, hiatal hernia; presented to the hospital today with a chief complaint of shortness of breath. Noted to be in volume overload in the setting of CHF/CKD/nephrotic syndrome. Admitted to the hospital for further management. Anasarca secondary membranous nephropathy Still significantly fluid overloaded Continue lasix drip Daily weights, strict I's and O's, fluid restriction Seen by Cardiology, although patient has severe , they do not feel that CHF is contributing at this time. BNP 44, Echocardiogram from December showing preserved EF nephrology following Follow BMP Metabolic acidosis Secondary to renal dysfunction Bicarb 15 Hold off on sodium bicarb to avoid salt load at this time Hypokalemia Repleted Follow BMP Severe will need outpatient follow up with cardiology CKD stage 3 h/o membranous nephropathy Creatinine stable around 3.8-4 patient will need close monitoring and might eventually need dialysis One dose of rituxan 1 gm as per nephrology History of diabetes SS, ada diet HTN bp controlled at this time Continue Norvasc, lisinopril History of hypothyroidism Continue home levothyroxine DVT prophylaxis: Subcu heparin Code status: Full code Attending Dr. Levin Requires ongoing inpatient hospitalization for IV diuresis Quality Stroke Does the patient have a stroke diagnosis?: No VTE Prior VTE?: No VTE Risk Level:: Medical - moderate - high VTE Device Contraindication: Treatment Not Indicated VTE Drug Contraindication: N/A - Med Ordered
[2022-01-25 12:21] VITALS: BP 122/64; PULSE 59; RESP 17; TEMP 36.1; O2SAT 100
--- NOTE | 2022-01-25 12:28 | P.PNNP_ITS ---
Subjective Subjective Date of Service: 01/25/22 Interval history: Seen and examined this morning Follow-up for anasarca Patient denies any chest pain, no shortness of breath at this time received 1 gram of rituxan wednesday Physical Exam Vital Signs: Vital Signs: Last Vital Signs Temp 96.9 F 01/25/22 12:21 Pulse 59 01/25/22 12:21 Resp 17 01/25/22 12:21 BP 122/64 01/25/22 12:21 Pulse Ox 100 01/25/22 12:21 O2 Del Method 01/25/22 12:21 BMI result Body Mass Index 34.8 Const: Other: Constitutional : Alert, oriented, not in distress Neck : Normal inspection, Supple Cardiovascular : RRR, no JVP, +3 bilateral lower extremity edema Respiratory : fair bilateral air entry, no crackles, wheezes or rhonchi Gastrointestinal: soft, lax, Normal bowel sounds, Non tender Skin : Warm, Dry Neurological : Alert & oriented x3, No focal deficit , General: cooperative, comfortable, alert and awake Nutritional Appearance: overweight Orientation/consciousness: patient oriented x3 Resp: Effort & Inspection: normal respiratory effort and able to speak in complete sentences Auscultation: diminished lung sounds Cardio: Rate: regular rate Heart sounds: Murmur heart sound present systolic GI: Palpation (GI): Soft to palpation and nontender Neuro: General: patient oriented x3 Extrem: Other: Bilateral lower extremity edema to thigh; generalized swelling Objective Data Labs CBC & Chem 7: 01/21/22 04:43 01/25/22 06:17 Labs: Laboratory Results - last 24 hr 01/25/22 06:17 Sodium 137 Potassium 3.8 Chloride 116 H Carbon Dioxide 13 L Anion Gap 12 BUN 26 H Creatinine 3.70 H Estim Creat Clear Calc 25.1 Estimated GFR 17 Random Glucose 91 D Calcium 6.7 L Procedures Date of Service Date of Service: 01/25/22 Assessment & Plan Assessment and plan (1) Aortic stenosis: Status: Acute (2) Anasarca associated with disorder of kidney: Status: Acute Plan 66-year-old male with a past medical history of hypertension, hyperlipidemia, diabetes, CKD, CHF, nephritis syndrome, aortic stenosis, hiatal hernia; presented to the hospital today with a chief complaint of shortness of breath. Noted to be in volume overload in the setting of CHF/CKD/nephrotic syndrome. Admitted to the hospital for further management. Anasarca secondary membranous nephropathy Still significantly fluid overloaded Continue lasix drip Daily weights, strict I's and O's, fluid restriction Seen by Cardiology, although patient has severe , they do not feel that CHF is contributing at this time. BNP 44, Echocardiogram from December showing preserved EF nephrology following Follow BMP Metabolic acidosis Secondary to renal dysfunction Bicarb 15 Hold off on sodium bicarb to avoid salt load at this time Hypokalemia Repleted Follow BMP Severe will need outpatient follow up with cardiology CKD stage 3 h/o membranous nephropathy Creatinine stable around 3.8-4 patient will need close monitoring and might eventually need dialysis One dose of rituxan 1 gm as per nephrology History of diabetes SS, ada diet HTN bp controlled at this time Continue Norvasc, lisinopril History of hypothyroidism Continue home levothyroxine creat stable will f/u in [place] office with Dr Ribeiro Requires ongoing inpatient hospitalization for IV diuresis Time Spent With Patient Time: Total time spent is greater than 50% in coordination of care (as documented) at patient's floor/unit and/or counseling patient: Progress Note: Quality Stroke Does the patient have a stroke diagnosis?: No
[2022-01-25 16:00] VITALS: BP 129/60; PULSE 73; RESP 17; TEMP 36.2; O2SAT 100
[2022-01-25 19:31] VITALS: BP 116/67; PULSE 75; RESP 14; TEMP 36.4; O2SAT 100
[2022-01-25 23:14] VITALS: BP 112/61; PULSE 72; RESP 16; TEMP 36.2; O2SAT 98
[2022-01-26 03:15] VITALS: BP 122/68; PULSE 64; RESP 14; TEMP 36.3; O2SAT 98
[2022-01-26] MEDS: Heparin Sodium,Porcine 5,000 UNIT/ML VIAL 5000 UNIT SUBCUT ×2 (06:02→13:30)
[2022-01-26] MEDS: Levothyroxine Sodium 75 MCG TABLET PO (06:02)
[2022-01-26 06:31] LABS: B Type Natriuretic Peptide 44 pg/mL (<100)
[2022-01-26 06:31] LABS: Anion Gap 12 (12-20); Blood Urea Nitrogen 29 mg/dL (9-16); Calcium 6.8 mg/dL (8.4-10.2); Carbon Dioxide 13 mmol/L (22-29); Chloride 117 mmol/L (96-108); Creatinine Clr Calc Pharmacy 25.2; Estimated Glomerular Filt Rate 17; Glucose Random 88 mg/dL (60-115); Potassium 3.7 mmol/L (3.3-5.1); Sodium 138 mmol/L (135-145)
[2022-01-26 07:39] VITALS: BP 123/71; PULSE 73; RESP 18; TEMP 36.2; O2SAT 100
[2022-01-26] MEDS: amLODIPine Besylate 5 MG TABLET PO (09:01)
[2022-01-26] MEDS: lisinopriL 2.5 MG TABLET PO (09:01)
[2022-01-26] MEDS: Atorvastatin Calcium 40 MG TABLET PO (09:08)
--- NOTE | 2022-01-26 09:51 | HO.PM.IMPN ---
Subjective Subjective Date of Service: 01/26/22 <Ayanna Galloway NP - Last Filed: 01/26/22 15:00> 01/26/22 <Donovan Levin MD - Last Filed: 01/26/22 16:45> Review of Systems Follow up CHF feeling better no chest pain or sob <Ayanna Galloway NP - Last Filed: 01/26/22 15:00> Physical Exam Vital Signs: Vital Signs: Last Vital Signs Temp 97.1 F 01/26/22 07:39 Pulse 73 01/26/22 07:39 Resp 18 01/26/22 07:39 BP 123/71 01/26/22 07:39 Pulse Ox 100 01/26/22 07:39 O2 Del Method 01/26/22 07:39 BMI result Body Mass Index 34.8 <Ayanna Galloway NP - Last Filed: 01/26/22 15:00> Appearing in no acute distress lung sounds are clear to auscultation heart regular rate rhythm, clear S1, S2 positive bowel sounds, abdomen is soft, nontender neuro patient is alert x3, no focal deficits <Ayanna Galloway NP - Last Filed: 01/26/22 15:00> Objective Data Active Medications Acetaminophen (Acetaminophen 325 Mg Tablet) 650 mg PO Q6H PRN PRN Reason: Pain, Mild (Pain Scale 1-3) Amlodipine Besylate (Amlodipine Besylate 5 Mg Tablet) 5 mg PO DAILY [facility]; Protocol Last Admin: 01/26/22 09:01 Dose: 5 mg Documented By: YAIR Atorvastatin Calcium (Atorvastatin Calcium 40 Mg Tablet) 40 mg PO DAILY [facility] Last Admin: 01/26/22 09:08 Dose: 40 mg Documented By: YAIR Heparin Sodium (Porcine) (Heparin Sodium,Porcine 5,000 Unit/Ml Vial) 5,000 unit SUBCUT Q8H [facility] Last Admin: 01/26/22 06:02 Dose: 5,000 unit Documented By: LAURA Furosemide 200 mg/ Sodium (Chloride) 100 mls @ 2.5 mls/hr IVCONT .Q24H [facility] Last Admin: 01/25/22 13:43 Dose: Not Given Documented By: YAIR Non-Admin Reason: bag still running. mostly full Levothyroxine Sodium (Levothyroxine Sodium 75 Mcg Tablet) 75 mcg PO 0600 [facility] Last Admin: 01/26/22 06:02 Dose: 75 mcg Documented By: LAURA Lisinopril (Lisinopril 2.5 Mg Tablet) 2.5 mg PO DAILY [facility]; Protocol Last Admin: 01/26/22 09:01 Dose: 2.5 mg Documented By: YAIR Melatonin (Melatonin 3 Mg Tablet) 6 mg PO BEDTIME PRN PRN Reason: Insomnia Senna (Sennosides 8.6 Mg Tablet) 17.2 mg PO BEDTIME PRN PRN Reason: Constipation Sodium Chloride (0.9 % Sodium Chloride Flush 3 Ml Syringe) 3 ml IVFLUSH QSHIFT [facility] Last Admin: 01/26/22 09:00 Dose: Not Given Documented By: YAIR Non-Admin Reason: IV Running <Ayanna Galloway NP - Last Filed: 01/26/22 15:00> Labs CBC & Chem 7: : 01/21/22 04:43 01/26/22 05:55 <Ayanna Galloway NP - Last Filed: 01/26/22 15:00> Labs: Laboratory Results - last 24 hr 01/26/22 01/26/22 05:55 05:56 Anion Gap 12 Estim Creat Clear Calc 25.2 Estimated GFR 17 Random Glucose 88 Calcium 6.8 L B-Natriuretic Peptide 44 <Ayanna Galloway NP - Last Filed: 01/26/22 15:00> Assessment and Plan (1) Aortic stenosis: Status: Acute <Ayanna Galloway NP - Last Filed: 01/26/22 15:00> (2) Anasarca associated with disorder of kidney: Status: Acute <Ayanna Galloway NP - Last Filed: 01/26/22 15:00> Assessment and Plan: 66-year-old male with a past medical history of hypertension, hyperlipidemia, diabetes, CKD, CHF, nephritis syndrome, aortic stenosis, hiatal hernia; presented to the hospital today with a chief complaint of shortness of breath. Noted to be in volume overload in the setting of CHF/CKD/nephrotic syndrome. Admitted to the hospital for further management. Anasarca secondary membranous nephropathy Still significantly fluid overloaded Continue lasix drip Daily weights, strict I's and O's, fluid restriction Seen by Cardiology, although patient has severe , they do not feel that CHF is contributing at this time. BNP 44, Echocardiogram from December showing preserved EF nephrology following Follow BMP Metabolic acidosis Secondary to renal dysfunction Bicarb 15 Hold off on sodium bicarb to avoid salt load at this time Hypokalemia Repleted Follow BMP Severe will need outpatient follow up with cardiology CKD stage 3 h/o membranous nephropathy Creatinine stable around 3.8-4 patient will need close monitoring and might eventually need dialysis One dose of rituxan 1 gm as per nephrology History of diabetes SS, ada diet HTN bp controlled at this time Continue Norvasc, lisinopril History of hypothyroidism Continue home levothyroxine DVT prophylaxis: Subcu heparin Code status: Full code Attending Dr. Levin Requires ongoing inpatient hospitalization for IV diuresis <Ayanna Galloway NP - Last Filed: 01/26/22 15:00> Quality Stroke Does the patient have a stroke diagnosis?: No <Ayanna Galloway NP - Last Filed: 01/26/22 15:00> VTE Prior VTE?: No <Ayanna Galloway NP - Last Filed: 01/26/22 15:00> VTE Risk Level:: Medical - moderate - high <Ayanna Galloway NP - Last Filed: 01/26/22 15:00> VTE Device Contraindication: Treatment Not Indicated <Ayanna Galloway NP - Last Filed: 01/26/22 15:00> VTE Drug Contraindication: N/A - Med Ordered <Ayanna Galloway NP - Last Filed: 01/26/22 15:00>
[2022-01-26 11:29] VITALS: BP 127/68; PULSE 70; RESP 18; TEMP 36.3; O2SAT 100
[2022-01-26] MEDS: Furosemide 200 MG in 0.9 % Sodium Chloride 80 ML IVCONT (12:41)
--- NOTE | 2022-01-26 14:43 | MHC.CM.PN ---
Male 66 DX Fluid overload. No dc today. Per MD rounds Nephrology scheduled to see patient today. [facility] patient declines services. He will transport via [facility].
[2022-01-26 15:54] VITALS: BP 137/64; RESP 18; TEMP 37; O2SAT 97
[2022-01-26 19:59] VITALS: BP 130/71; PULSE 71; RESP 18; TEMP 36.6; O2SAT 99
--- NOTE | 2022-01-26 20:39 | PM.PNNEP ---
Subjective Subjective Date of Service: 01/26/22 Interval history: Seen and examined this morning Follow-up for anasarca Patient denies any chest pain, no shortness of breath at this time received 1 gram of rituxan wednesday Physical Exam Vital Signs: Vital Signs: Last Vital Signs Temp 97.8 F 01/26/22 19:59 Pulse 71 01/26/22 19:59 Resp 18 01/26/22 19:59 BP 130/71 01/26/22 19:59 Pulse Ox 99 01/26/22 19:59 O2 Del Method 01/26/22 19:59 BMI result Body Mass Index 34.8 Const: Other: Constitutional : Alert, oriented, not in distress Neck : Normal inspection, Supple Cardiovascular : RRR, no JVP, +3 bilateral lower extremity edema Respiratory : fair bilateral air entry, no crackles, wheezes or rhonchi Gastrointestinal: soft, lax, Normal bowel sounds, Non tender Skin : Warm, Dry Neurological : Alert & oriented x3, No focal deficit , General: cooperative, comfortable, alert and awake Nutritional Appearance: overweight Orientation/consciousness: patient oriented x3 Resp: Effort & Inspection: normal respiratory effort and able to speak in complete sentences Auscultation: diminished lung sounds Cardio: Rate: regular rate Heart sounds: Murmur heart sound present systolic GI: Palpation (GI): Soft to palpation and nontender Neuro: General: patient oriented x3 Extrem: Other: Bilateral lower extremity edema to thigh; generalized swelling Objective Data Labs CBC & Chem 7: 01/21/22 04:43 01/26/22 05:55 Labs: Laboratory Results - last 24 hr 01/26/22 01/26/22 05:55 05:56 Sodium 138 Potassium 3.7 Chloride 117 H Carbon Dioxide 13 L Anion Gap 12 BUN 29 H Creatinine 3.69 H Estim Creat Clear Calc 25.2 Estimated GFR 17 Random Glucose 88 Calcium 6.8 L B-Natriuretic Peptide 44 Procedures Date of Service Date of Service: 01/26/22 Assessment & Plan Assessment and plan (1) Aortic stenosis: Status: Acute (2) Anasarca associated with disorder of kidney: Status: Acute Plan 1. 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 NSyn with greater than 10 gm Uprot,edema and low Salb ( 1.8) 3. Edema: d/t NSyn 4. Risk of thrombosis: given NSyn with alb < 2.0 at risk for DVT 5. severe REC: cont current meds and titrate up lisinopril as BP tolerates and as long as SCr tolerates; add po torsemide once offiv diuretics; cont Rituxin as outpt; prep for RRTas outpt Iwill arrange f/uwith me as outpt in 1-2 wks Time Spent With Patient Time: Total time spent is greater than 50% in coordination of care (as documented) at patient's floor/unit and/or counseling patient: Progress Note: Quality Stroke Does the patient have a stroke diagnosis?: No
[2022-01-26 23:34] VITALS: BP 118/63; PULSE 75; RESP 18; TEMP 36.6; O2SAT 98
[2022-01-27] MEDS: Levothyroxine Sodium 75 MCG TABLET PO (05:59)
[2022-01-27 07:16] VITALS: BP 147/78; PULSE 69; RESP 12; TEMP 36.2; O2SAT 100
[2022-01-27 07:19] LABS: Glucose, Whole Blood 75 mg/dL (60-115)
--- NOTE | 2022-01-27 08:37 | PM.DS ---
DS: Providers Provider Date of Service: 01/27/22 Date of admission: 01/20/22 23:23 Primary care physician: Segundo Tapia MD Consults: 01/20/22 23:23 Consult to Cardiology Routine Consulting Provider: Chris Messer Reason for consultation: CHf; Consult to Nephrology Routine Consulting Provider: Tone Russo Reason for consultation: fluid overload Attending physician on discharge: Donovan Cooley [facility] Discharging clinician: Ayanna Galloway DS: Diagnosis Discharge Diagnosis (1) Aortic stenosis: Status: Acute (2) Anasarca associated with disorder of kidney: Status: Acute DS: Summary Hospital Course Hospital Course: HP as per admitting provider 66-year-old male with a past medical history of hypertension, hyperlipidemia, diabetes, CKD, CHF, nephritis syndrome, aortic stenosis, hiatal hernia; presented to the hospital today with a chief complaint of shortness of breath.?Patient reported that he was recently admitted to the hospital for MED/CHF.? His diuretic dose has been reduced at the time of the discharge.?Today presents with a chief complaint of shortness of breath which has been gradually worsening over the past 3-4 days. Complains of dyspnea on exertion.? Mentions that his legs have been becoming swollen so giving him difficulty to walk.? Denies any fall or trauma.? Denies any chest pain or palpitations.? Reports he has been complaint with his home medications.?Denies any GI symptoms.?Review of all other systems is negative except mentioned above ER course: Per ER team patient noted to have 4+ pitting edema; also noted to have some edema around the abdominal wall; concerning for anasarca; patient was given Lasix 60 mg IV.? Admitted to the hospital for further management . Anasarca secondary membranous nephropathy Treated with lasix drip Daily weights, strict I's and O's, fluid restriction Seen by Cardiology, although patient has severe , they do not feel that CHF is contributing at this time. BNP 44,? Echocardiogram from December showing preserved EF nephrology following rec continuing previous home medications Follow BMP Metabolic acidosis Secondary to renal dysfunction Hypokalemia. resolved Repleted Severe will need outpatient follow up with cardiology CKD stage 3 h/o membranous nephropathy Creatinine stable patient will need close monitoring and might eventually need dialysis One dose of rituxan 1 gm as per nephrology History of diabetes continue home medications HTN bp controlled at this time Continue Norvasc, lisinopril History of hypothyroidism Continue home levothyroxine Time Spent with Patient Time attestation: Total time spent providing and/or coordinating discharge services: Discharge coordination time: Greater than 30 minutes Quality: Safe Use of Opioids Does Pt have an Active Cancer Diagnosis on the Problem List?: No Quality: Stroke Does the patient have a stroke diagnosis?: No Physical Exam Vital Signs: Vital Signs: Last Vital Signs Temp 97.1 F 01/27/22 07:16 Pulse 69 01/27/22 07:16 Resp 12 01/27/22 07:16 BP 147/78 H 01/27/22 07:16 Pulse Ox 100 01/27/22 07:16 O2 Del Method 01/27/22 07:16 BMI result Body Mass Index 34.8 Appearing in no acute distress head is normocephalic atraumatic eyes pupils are PERRLA sclera is anicteric mouth throat mucous membranes are intact and moist neck is supple no lymphadenopathy, no JVD noted lung sounds are clear to auscultation heart regular rate rhythm, clear S1, S2 positive bowel sounds, abdomen is soft, nontender neuro patient is alert x3, no focal deficits DS: Data Data Completed and Pending Completed studies during hospitalization [Text1]: Procedures Extraction of Right Inguinal Lymphatic, Percutaneous Approach, Diagnostic (04/23/20) Labs on day of discharge: Laboratory Results - last 24 hr 01/27/22 07:07 POC Glucose 75 Discharge Plan Discharge Anticipated Discharge Date/Time: 01/27/22 08:33 Patient Disposition: Home, Self-Care Discharge Diagnosis: Anasarca secondary membranous nephropathy Metabolic acidosis Hypokalemia Referrals: Segundo Tapia MD [Primary Care Provider] - 1 Week Jarocho Ribeiro MD [Physician] - 1 Week Discharge Medications: Continued levothyroxine 75 mcg Tablet 75 mcg PO DAILY atorvastatin 40 mg tablet 1 tab PO DAILY torsemide 20 mg Tablet 40 mg PO BID@0800,1700 Qty: 60 0RF Protocol: Hold for SBP< HOLD for SBP < : 90 amlodipine 5 mg Tablet 5 mg PO DAILY Qty: 30 0RF Protocol: Hold for SBP< HOLD for SBP < : 90 metolazone 2.5 mg tablet 1 tab PO DAILY spironolactone 25 mg tablet 1 tab PO DAILY lisinopril 2.5 mg tablet 1 tab PO DAILY Discharge Orders: Discharge Order (Routine); Ordered 01/27/22 Ordered By: Ayanna Galloway Diet: Advance to usual diet Activity on Discharge: As tolerated Stand Alone Forms: Patient Portal Discharge page Care Plan Goals: Continue to take all medication as prescribed Health Concerns: Anasarca secondary membranous nephropathy Metabolic acidosis Hypokalemia Plan of Treatment: Follow-up with primary care provider as needed Assessment: See discharge summary
[2022-01-27] MEDS: Atorvastatin Calcium 40 MG TABLET PO (09:45)
[2022-01-27] MEDS: amLODIPine Besylate 5 MG TABLET PO (09:45)
[2022-01-27] MEDS: lisinopriL 2.5 MG TABLET PO (09:45)
--- NOTE | 2022-01-27 10:11 | PC.NURSE ---
pt being discharged via shuttle service at 1am. tele and IV d/c'ed. all belongings wiht patient. discharge packet to be given to pt and pt to be educated. safety and fall precautions in place. call acharya within reach.
--- NOTE | 2022-01-27 10:18 | MHC.CM.PN ---
PER ACADEMY EDUCATION DIRECTOR, Patient will be medically cleared for dc to home today, self care. Patient will dc to home today at 11AM, via [facility]. IMM addressed with Patient today at bedside and original has been given to him and a copy has been placed on the chart.
== END 2022-01-27 10:31 | disposition home or self-care (01) | DRG 292 ==
LOC: HO.ED 19:48 → HO.EDOVER 01-21 00:09 → HO.IMC 01-21 17:07
PROVIDERS: Emergency Medicine; Internal Medicine Nephrology; Physician Assistant Medical; Student in an Organized Health Care Education/Training Program; Admitting Provider Hospitalist; Emergency Provider Internal Medicine; PCP Internal Medicine; Visit Provider Nurse Practitioner Acute Care
DX: I13.0 Hypertensive heart and chronic kidney disease with heart failure and stage 1 through stage 4 chronic kidney disease, or unspecified chronic kidney disease (principal); E87.2 Acidosis; I50.32 Chronic diastolic (congestive) heart failure; E03.9 Hypothyroidism, unspecified; E11.22 Type 2 diabetes mellitus with diabetic chronic kidney disease; N18.30 Chronic kidney disease, stage 3 unspecified; E87.6 Hypokalemia; I35.0 Nonrheumatic aortic (valve) stenosis; Z20.822 Contact with and (suspected) exposure to COVID-19; E78.5 Hyperlipidemia, unspecified; Z87.891 Personal history of nicotine dependence; Z79.890 Hormone replacement therapy; Z79.899 Other long term (current) drug therapy
CPT/HCPCS: 36415; 71045; 80048; 80076; 81001; 81003; 82043; 82728; 82947; 83540; 83735; 83880; 84484; 85025; 85610; 87635; 93005; 96374; 99285; J1200; J1642; J1650; J1940; J2930; J9312

== ENCOUNTER 2022-02-06 10:27 | Outpatient (REF) | payer MEDICARE, MEDICAID, SELFPAY ==
[2022-02-06 13:35] LABS: MANUAL DIFF FLAG NO
[2022-02-06 13:40] LABS: Basophils Absolute Auto 0.1 X10*3/uL (0.0-0.2); Basophils Percent Auto 0.9 % (0-2); Eosinophils Absolute Auto 0.4 X10*3/uL (0.0-0.4); Eosinophils Percent Auto 4.2 % (0-4); Hematocrit 31.6 % (42.0-52.0); Hemoglobin 10.8 g/dl (14.0-18.0); Imm Gran Abs Auto 0.07 X10*3/uL (0.00-0.03); Imm Gran Pct Auto 0.8 % (0.0-0.4); Lymphocytes Absolute Auto 1.6 X10*3/uL (1.2-4.9); Lymphocytes Percent Auto 18.5 % (20-40); Mean Corpuscular HGB Conc 34.2 g/dl (31.0-36.0); Mean Corpuscular Hemoglobin 32.7 pg (27.0-33.0); Mean Corpuscular Volume 95.8 fL (80.0-98.0); Mean Platelet Volume 10.2 fL (9.4-12.4); Monocytes Absolute Auto 0.7 X10*3/uL (0.1-1.2); Monocytes Percent Auto 7.5 % (2-11); Neutrophils Percent Auto 68.1 % (45-73); Platelet Count 313 X10*3/uL (160-400); Red Cell Distribution Width 14.2 % (11.0-16.0); White Blood Count 8.8 X10*3/uL (4.8-10.8)
[2022-02-06 14:02] LABS: Estimated Average Glucose 111 mg/dL; Hemoglobin A1c % 5.5 %
[2022-02-06 14:12] LABS: Alanine Aminotransferase 16 U/L (0-40); Albumin Level 2.1 g/dL (3.5-5.0); Alkaline Phosphatase 54 U/L (39-117); Anion Gap 15 (12-20); Aspartate Amino Transferase 20 U/L (5-37); Bilirubin Total 0.2 mg/dL (0.0-1.0); Blood Urea Nitrogen 36 mg/dL (9-16); Calcium 8.7 mg/dL (8.4-10.2); Carbon Dioxide 20 mmol/L (22-29); Chloride 108 mmol/L (96-108); Estimated Glomerular Filt Rate 15; Glucose Fasting 84 mg/dL (60-99); Sodium 139 mmol/L (135-145); Total Protein 4.4 g/dL (6.5-8.0)
[2022-02-06 14:29] LABS: Thyroid Stimulating Hormone 1.87 uIU/mL (0.32-4.0)
== END 2022-02-06 10:28 | disposition home or self-care (01) ==
LOC: HO.10HDL 10:27
PROVIDERS: Visit Provider Internal Medicine
DX: D64.9 Anemia, unspecified (principal); N18.9 Chronic kidney disease, unspecified; E11.9 Type 2 diabetes mellitus without complications; E03.9 Hypothyroidism, unspecified
CPT/HCPCS: 36415; 80053; 83036; 84439; 84443; 85025

== ENCOUNTER → 2022-02-10 12:43 | Outpatient (BNVA) | payer MEDICARE, MEDICAID, SELFPAY | PROVIDERS: PCP Internal Medicine; Referring Provider Internal Medicine; Visit Provider Nurse Practitioner Family | DX: I35.0 Nonrheumatic aortic (valve) stenosis (principal); N04.9 Nephrotic syndrome with unspecified morphologic changes; I12.9 Hypertensive chronic kidney disease with stage 1 through stage 4 chronic kidney disease, or unspecified chronic kidney disease; N18.30 Chronic kidney disease, stage 3 unspecified | CPT/HCPCS: 99212 ==

== ENCOUNTER 2022-02-27 10:53 | Inpatient (IN) | payer MEDICARE, MEDICAID, SELFPAY ==
[2022-02-27 11:49] VITALS: BP 146/70; PULSE 75; RESP 16; TEMP 36.5; O2SAT 99; BMI 33.9
--- NOTE | 2022-02-27 11:54 | ECG_ITS ---
Test Reason : CHF Blood Pressure : / mmHG Vent. Rate : 080 BPM Atrial Rate : 080 BPM P-R Int : 168 ms QRS Dur : 098 ms QT Int : 412 ms P-R-T Axes : 030 006 -02 degrees QTc Int : 475 ms Normal sinus rhythm Normal ECG When compared with ECG of 20-JAN-2022 12:08, No significant change was found Referred By: Generic ED Physician Electronically Signed By:RUT CUELLO
[2022-02-27 12:35] LABS: MANUAL DIFF FLAG NO
[2022-02-27 12:37] LABS: Basophils Absolute Auto 0.1 X10*3/uL (0.0-0.2); Basophils Percent Auto 0.6 % (0-2); Eosinophils Absolute Auto 0.1 X10*3/uL (0.0-0.4); Eosinophils Percent Auto 0.8 % (0-4); Hematocrit 33.8 % (42.0-52.0); Hemoglobin 11.7 g/dl (14.0-18.0); Imm Gran Abs Auto 0.05 X10*3/uL (0.00-0.03); Imm Gran Pct Auto 0.5 % (0.0-0.4); Lymphocytes Absolute Auto 1.5 X10*3/uL (1.2-4.9); Lymphocytes Percent Auto 13.4 % (20-40); Mean Corpuscular HGB Conc 34.6 g/dl (31.0-36.0); Mean Corpuscular Hemoglobin 32.3 pg (27.0-33.0); Mean Corpuscular Volume 93.4 fL (80.0-98.0); Mean Platelet Volume 9.7 fL (9.4-12.4); Monocytes Absolute Auto 0.9 X10*3/uL (0.1-1.2); Neutrophils Absolute Auto 8.3 x10*3/uL (2.0-8.3); Neutrophils Percent Auto 76.7 % (45-73); Platelet Count 387 X10*3/uL (160-400); Red Blood Count 3.62 X10*6/uL (4.60-5.80); Red Cell Distribution Width 14.5 % (11.0-16.0); White Blood Count 10.9 X10*3/uL (4.8-10.8)
[2022-02-27 12:57] LABS: B Type Natriuretic Peptide 49 pg/mL (<100); Troponin-I High Sensitivity 22.3 ng/L (<3.5-35.0)
[2022-02-27 12:59] LABS: Alanine Aminotransferase 13 U/L (0-40); Albumin Level 2.1 g/dL (3.5-5.0); Alkaline Phosphatase 53 U/L (39-117); Anion Gap 15 (12-20); Aspartate Amino Transferase 23 U/L (5-37); Bilirubin Total 0.2 mg/dL (0.0-1.0); Blood Urea Nitrogen 23 mg/dL (9-16); Calcium 7.1 mg/dL (8.4-10.2); Carbon Dioxide 15 mmol/L (22-29); Chloride 112 mmol/L (96-108); Creatinine Clr Calc Pharmacy 26.4; Estimated Glomerular Filt Rate 17; Glucose Random 40 mg/dL (60-115); Potassium 3.4 mmol/L (3.3-5.1); Sodium 139 mmol/L (135-145); Total Protein 4.6 g/dL (6.5-8.0)
[2022-02-27 13:23] LABS: Glucose, Whole Blood 36 mg/dL (60-115)
[2022-02-27 13:23] LABS: Glucose, Whole Blood 42 mg/dL (60-115)
--- NOTE | 2022-02-27 13:41 | ED.EXTPRO ---
HPI - Extremity Problem General Chief complaint: Extremity Problem Stated complaint: fluid build up/dizziness/diff breathing Time Seen by Provider: 02/27/22 13:02 Source: patient Mode of arrival: ambulatory Limitations: no limitations History of Present Illness HPI Narrative: 66-year-old male with a past medical history of hypertension, hyperlipidemia, diabetes, CKD baseline 3.8-4 Cr being followed by Nephrology, CHF, nephritis syndrome, aortic stenosis and hiatal hernia presenting to the ED with complaints of dizziness, shortness of breath and lower extremity edema for the past 1 and half to 2 weeks and states ?I need Lasix to remove this fluid off of my body?. He was noted to be hypoglycemic in the waiting room therefore he was brought directly into the emergency department into [facility] and he was alert and orientated reporting only mild dizziness although normal steady gait and we gave him 1 cup of orange juice with 5 packets of sugar, 2 cranberry juices, crackers, saltines, peanut butter and jelly sandwiches and he feels much better. He reports that he currently takes glipizide is unsure what the mg is. Although he did not take it this morning although is not certain about this. He also did not eat this morning just came straight here for further evaluation treatment. At this time he Denies any fevers, chills, changes in vision, chest pain, palpitations, paresthesias, nausea/vomiting, cough, sputum production, abdominal pain, flank pain, back pain, dysuria, hematuria, abnormal penile discharge, calf tenderness, recent travel or sick contacts or any other symptoms complaints or concerns at this time. MD Complaint: extremity swelling Onset (ago): day(s) (Past few days worse today) Pain Consistency: constant Location: left, right and lower extremity Radiation: none Relieving factors: nothing Exacerbating factors: nothing Associated symptoms: denies other symptoms Related Data Home Medications Medication Instructions Recorded Confirmed levothyroxine 75 mcg tablet 75 mcg PO DAILY 06/27/20 02/27/22 atorvastatin 40 mg tablet 40 mg PO DAILY 02/10/22 02/27/22 lisinopril 2.5 mg tablet 2.5 mg PO DAILY 02/10/22 02/27/22 metolazone 2.5 mg tablet 2.5 mg PO DAILY 02/10/22 02/27/22 spironolactone 25 mg tablet 25 mg PO DAILY 02/10/22 02/27/22 metformin 500 mg tablet,extended 2 tab PO BID 02/27/22 02/27/22 release 24 hr sitagliptin 100 mg tablet (Januvia) 1 tab PO DAILY 02/27/22 02/27/22 torsemide 100 mg tablet 1 tab PO DAILY 02/27/22 02/27/22 Previous Rx's Medication Instructions Recorded amlodipine 5 mg tablet 5 mg PO DAILY #30 tabs 01/05/22 Allergies Allergy/AdvReac Type Severity Reaction Status Date / Time Penicillins Allergy Unknown UNKWN Verified 02/10/22 13:02 Review of Systems Review of Systems: Constitutional : No Weight loss, No Fever, No Chills, No Night Sweats, No Fatigue, No Malaise ENT/Mouth : No Hearing loss, No Ear Pain, No Nasal Congestion, No Sinus Pain, No Hoarseness, No sore throat, No Rhinorrhea, No Swallowing Difficulty Eyes: No Eye Pain, No Swelling, No Redness, No Foreign Body, No Discharge, No Vision Changes Cardiovascular : No Chest Pain, + SOB, + Dyspnea on Exertion, + Orthopnea, + LE Edema, No Palpitations Respiratory : No Cough, No Sputum, No Wheezing, No Smoke Exposure, No Dyspnea Gastrointestinal : No Nausea, No Vomiting, No Diarrhea, No Constipation, No abdominal Pain, No Hematochezia, No Melena Genitourinary : no irregular bleeding, No Dysuria, No Urinary Frequency, No Hematuria, No Urinary Incontinence, No Urgency, No Flank Pain, No Urinary Flow Changes, No Hesitancy Musculoskeletal : No joint pain, No Myalgias, No Joint Swelling Skin : No Skin Lesions, No rash Neuro : No Weakness, No Numbness, No Paresthesias, No Loss of Consciousness, No Dizziness, No Headache Psych : No Anxiety/Panic, No Depression, No SI/HI/AH/VH, No Social Issues, Heme/Lymph: No Bruising, No Bleeding,No Lymphadenopathy Endocrine : No Polyuria, No Polydipsia, No Temperature Intolerance Yes all other systems are reviewed and are negative [facility] Past Medical History Attestation statement: The following information was validated with the patient. 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 Social History Social History Household Members: None Housing: House Do you presently have visiting nurse or other home services: No Unable to assess alcohol history related to: Unknown Alcohol intake: former Patient Tobacco Use Status: Former Tobacco user Second Hand Smoke Exposure: No Advance Directives: No Advance Directives Information Provided: No Advance Directives Date on File: 05/01/20 service: No Current occupational status: unemployed and disabled Physical Exam Vital Signs: Vital Signs: Last Vital Signs Temp 97.9 F 02/27/22 14:54 Pulse 87 02/27/22 14:54 Resp 16 02/27/22 14:54 BP 158/87 H 02/27/22 14:54 Pulse Ox 99 02/27/22 14:54 O2 Del Method 02/27/22 14:54 BMI result Body Mass Index 33.9 vital signs have been reviewed as normal and appeared to be correct. Blood pressure 146/70. Heart rate normal. Respiration rate normal. Temperature normal. Oxygen saturation normal. Appearance: Alert. Oriented X3. No acute distress. Head: Normal external exam. Normocephalic. Atraumatic. Eyes: PERRLA. EOMI. Conjunctiva and sclera normal. Eyelids normal. ENT: Pharynx normal. Uvula midline. Moist mucous membranes. No lesions/ulcerations or masses noted on the tongue. Normal voice. No trismus noted. No drooling noted. No muffled voice noted. Neck: Normal inspection. Neck supple. FROM. No adenopathy. Thyroid Normal. No tracheal deviation noted. No crepitus is noted. No meningeal signs. No neck mass noted. No signs of trauma noted. CVS: Normal heart rate and rhythm. Heart sound normal. Pulses normal throughout. No murmurs/rales/gallops. Respiratory: No respiratory distress. Painless inspiration. Breath sounds normal. No wheezes/rales/rhonchi noted. Chest nontender. No crepitus is noted. No signs of trauma noted. No accessory muscle usage noted or decreased air movement noted. No signs of trauma. Abdomen: Soft and nontender. Bowel sounds normal in all 4 quadrants. No distention noted. No organomegaly noted. No visible injury noted. Back: No CVA tenderness. Full range of motion noted. Nontender. Patient neuro intact bilaterally and distally on all 4 extremities. Patient's reflexes intact bilaterally and distally on all 4 extremities. No rashes/lesion/induration/fluctuance or signs of infection noted. Skin: Skin warm and dry. Normal skin color. Normal skin turgor. No rashes/lesions/lacerations noted. Extremities: +3 lower extremity pitting edema. No calf tenderness is noted. Extremities exhibit normal range of motion and nontender. Neuro: Oriented X 3. No motor deficit. No sensory deficit. Reflexes normal. Normal steady gait. No focal neuro deficits noted. CN's II-XII intact bilaterally? Vascular: + radial pulses/+ 2 distal pedal pulses/+2 dorsalis pedis b/l. Normal cap refill. No cyanosis noted to upper extremity nails and lower extremity toes nails. Course Course Course Narrative: 13pm - 66-year-old male with a past medical history of hypertension, hyperlipidemia, diabetes, CKD baseline 3.8-4 Cr being followed by Nephrology, CHF, nephritis syndrome, aortic stenosis and hiatal hernia presenting to the ED with complaints of dizziness, shortness of breath and lower extremity edema for the past 1 and half to 2 weeks and states ?I need Lasix to remove this fluid off of my body?. He was noted to be hypoglycemic in the waiting room therefore he was brought directly into the emergency department into [facility] room 5 and he was alert and orientated reporting only mild dizziness although normal steady gait and we gave him 1 cup of orange juice with 5 packets of sugar, 2 cranberry juices, crackers, saltines, peanut butter and jelly sandwiches and he feels much better. He reports that he currently takes glipizide is unsure what the mg is. Although he did not take it this morning although is not certain about this. He also did not eat this morning just came straight here for further evaluation treatment. - Labs were obtained while the patient was in the waiting room this is why we brought him in immediately due to the low blood sugar otherwise he has an elevated white blood cell count at 10,000. Mild baseline anemia which is improved when compared to prior. Chloride 110. Carbon dioxide 15. BUN 23. Creatinine 3.57. This is the patient's baseline for kidney function. Random glucose was 40. Calcium 7.1. Total protein 4.6. Albumin 2.1. Otherwise all other labs are within normal limits. - Chest x-ray revealed tiny bilateral pleural effusions otherwise no other acute processes were noted. Plan: Will continue checking POC levels every hour. Will also discussed this case with Nephrology awaiting for call back and start with giving 40 mg of IV Lasix and re-evaluate plan will be to admit for Anasarca associated with disorder of kidney. Reevaluation(s) Reevaluation #1: - patient will be admitted to the hospitalist service with Dr. Leach at this time. Time: 15:31 [facility] - Extremity (Nontraumatic) Medical Records Attestation: I reviewed the patient's medical records. Lab Data Attestation: I reviewed the patient's lab results. Result diagrams: 02/27/22 12:29 02/27/22 12:29 Labs: Lab Results 02/27/22 02/27/22 02/27/22 Range/Units 12:29 12:29 12:29 WBC 10.9 H (4.8-10.8) X10*3/uL RBC 3.62 L (4.60-5.80) X10*6/uL Hgb 11.7 L (14.0-18.0) g/dl Hct 33.8 L (42.0-52.0) % MCV 93.4 (80.0-98.0) fL MCH 32.3 (27.0-33.0) pg MCHC 34.6 (31.0-36.0) g/dl RDW 14.5 (11.0-16.0) % Plt Count 387 (160-400) X10*3/uL MPV 9.7 (9.4-12.4) fL Immature Gran % (Auto) 0.5 H (0.0-0.4) % Neut % (Auto) 76.7 H (45-73) % Lymph % (Auto) 13.4 L (20-40) % [place] % (Auto) 8.0 (2-11) % Eos % (Auto) 0.8 (0-4) % Baso % (Auto) 0.6 (0-2) % Lymph # (Auto) 1.5 (1.2-4.9) X10*3/uL [place] # (Auto) 0.9 (0.1-1.2) X10*3/uL Eos # (Auto) 0.1 (0.0-0.4) X10*3/uL Baso # (Auto) 0.1 (0.0-0.2) X10*3/uL Abs Immat Gran (auto) 0.05 H (0.00-0.03) X10*3/uL Absolute Neuts (auto) 8.3 (2.0-8.3) x10*3/uL Absolute Nucleated RBC 0.000 (0.0-0.012) X10*3/uL Nucleated RBC % (auto) 0.0 (0.0-0.2) /100WBC Sodium 139 (135-145) mmol/L Potassium 3.4 (3.3-5.1) mmol/L Chloride 112 H (96-108) mmol/L Carbon Dioxide 15 L (22-29) mmol/L Anion Gap 15 (12-20) BUN 23 H (9-16) mg/dL Creatinine 3.57 H (0.5-1.4) mg/dL Estim Creat Clear Calc 26.4 Estimated GFR 17 POC Glucose (60-115) mg/dL Random Glucose 40 L* (60-115) mg/dL Calcium 7.1 L D (8.4-10.2) mg/dL Total Bilirubin 0.2 (0.0-1.0) mg/dL AST 23 (5-37) U/L ALT 13 (0-40) U/L Alkaline Phosphatase 53 (39-117) U/L Troponin I High Sens 22.3 D (<3.5-35.0) ng/L B-Natriuretic Peptide 49 (<100) pg/mL Total Protein 4.6 L (6.5-8.0) g/dL Albumin 2.1 L (3.5-5.0) g/dL 02/27/22 02/27/22 02/27/22 Range/Units 13:04 13:19 13:57 WBC (4.8-10.8) X10*3/uL RBC (4.60-5.80) X10*6/uL Hgb (14.0-18.0) g/dl Hct (42.0-52.0) % MCV (80.0-98.0) fL MCH (27.0-33.0) pg MCHC (31.0-36.0) g/dl RDW (11.0-16.0) % Plt Count (160-400) X10*3/uL MPV (9.4-12.4) fL Immature Gran % (Auto) (0.0-0.4) % Neut % (Auto) (45-73) % Lymph % (Auto) (20-40) % [place] % (Auto) (2-11) % Eos % (Auto) (0-4) % Baso % (Auto) (0-2) % Lymph # (Auto) (1.2-4.9) X10*3/uL [place] # (Auto) (0.1-1.2) X10*3/uL Eos # (Auto) (0.0-0.4) X10*3/uL Baso # (Auto) (0.0-0.2) X10*3/uL Abs Immat Gran (auto) (0.00-0.03) X10*3/uL Absolute Neuts (auto) (2.0-8.3) x10*3/uL Absolute Nucleated RBC (0.0-0.012) X10*3/uL Nucleated RBC % (auto) (0.0-0.2) /100WBC Sodium (135-145) mmol/L Potassium (3.3-5.1) mmol/L Chloride (96-108) mmol/L Carbon Dioxide (22-29) mmol/L Anion Gap (12-20) BUN (9-16) mg/dL Creatinine (0.5-1.4) mg/dL Estim Creat Clear Calc Estimated GFR POC Glucose 36 L* 42 L* 106 (60-115) mg/dL Random Glucose (60-115) mg/dL Calcium (8.4-10.2) mg/dL Total Bilirubin (0.0-1.0) mg/dL AST (5-37) U/L ALT (0-40) U/L Alkaline Phosphatase (39-117) U/L Troponin I High Sens (<3.5-35.0) ng/L B-Natriuretic Peptide (<100) pg/mL Total Protein (6.5-8.0) g/dL Albumin (3.5-5.0) g/dL 02/27/22 Range/Units 14:59 WBC (4.8-10.8) X10*3/uL RBC (4.60-5.80) X10*6/uL Hgb (14.0-18.0) g/dl Hct (42.0-52.0) % MCV (80.0-98.0) fL MCH (27.0-33.0) pg MCHC (31.0-36.0) g/dl RDW (11.0-16.0) % Plt Count (160-400) X10*3/uL MPV (9.4-12.4) fL Immature Gran % (Auto) (0.0-0.4) % Neut % (Auto) (45-73) % Lymph % (Auto) (20-40) % [place] % (Auto) (2-11) % Eos % (Auto) (0-4) % Baso % (Auto) (0-2) % Lymph # (Auto) (1.2-4.9) X10*3/uL [place] # (Auto) (0.1-1.2) X10*3/uL Eos # (Auto) (0.0-0.4) X10*3/uL Baso # (Auto) (0.0-0.2) X10*3/uL Abs Immat Gran (auto) (0.00-0.03) X10*3/uL Absolute Neuts (auto) (2.0-8.3) x10*3/uL Absolute Nucleated RBC (0.0-0.012) X10*3/uL Nucleated RBC % (auto) (0.0-0.2) /100WBC Sodium (135-145) mmol/L Potassium (3.3-5.1) mmol/L Chloride (96-108) mmol/L Carbon Dioxide (22-29) mmol/L Anion Gap (12-20) BUN (9-16) mg/dL Creatinine (0.5-1.4) mg/dL Estim Creat Clear Calc Estimated GFR POC Glucose 110 (60-115) mg/dL Random Glucose (60-115) mg/dL Calcium (8.4-10.2) mg/dL Total Bilirubin (0.0-1.0) mg/dL AST (5-37) U/L ALT (0-40) U/L Alkaline Phosphatase (39-117) U/L Troponin I High Sens (<3.5-35.0) ng/L B-Natriuretic Peptide (<100) pg/mL Total Protein (6.5-8.0) g/dL Albumin (3.5-5.0) g/dL Critical Care Time Critical Care Time Critical Care Time: Yes Total Critical Care Time: 60 Attestation: I personally attest to this time spent taking care of the patient Discharge Plan Discharge Clinical Impression: Hypoglycemia, Anasarca associated with disorder of kidney, CKD (chronic kidney disease) stage 3, GFR 30-59 ml/min, Pleural effusion, Adverse effect of glipizide Patient Disposition: Admitted As Inpatient
[2022-02-27 14:00] LABS: Glucose, Whole Blood 106 mg/dL (60-115)
[2022-02-27] MEDS: Furosemide 20 MG/2 ML VIAL 40 MG IVPUSH (14:10)
[2022-02-27 14:54] VITALS: BP 158/87; PULSE 87; RESP 16; TEMP 36.6; O2SAT 99
[2022-02-27 15:04] LABS: Glucose, Whole Blood 110 mg/dL (60-115)
[2022-02-27] MEDS: Glucose Gel 15 GM GEL..GRAM. PO (15:10)
--- NOTE | 2022-02-27 15:46 | P.HPHOSP_ITS ---
History of Present Illness Date of Service: 02/27/22 Chief Complaint: Weakness, sweating ?a 65 years old male with PMH of diabetes, nephrotic syndrome who presents to the hospital with weakness, sweating and low sugar level. the patient reported he was doing fairly okay until this morning when he started to feel weak, having sweats and palpitations. He reported taking his medications yesterday and not eating well since then specially not this morning. Denies any fever, chills, chest pain, abdominal pain, nausea, vomiting, change in bowel habit or urinary symptoms. He reports the swelling in his lower extremities is little bit worse than before but overall controlled on not as bad as previous admissions. Note in the Emergency to have low blood sugar readings requiring glucose supplement. Received IV Lasix for evidence of fluid overload. Will be admitted for further evaluation and treatment. Review of Systems Review of Systems: No fever, chills but reporting generalized weakness No chest pain, palpitation No shortness of breath or coughing but has lower extremity edema No abdominal pain, nausea or vomiting No urinary symptoms No any rash or wounds PMFSH Medical History Acute hypokalemia Acute on chronic renal failure Anasarca associated with disorder of kidney Aortic stenosis CHF (congestive heart failure), NYHA class I CKD (chronic kidney disease) stage 3, GFR 30-59 ml/min Congestive heart failure Congestive heart failure Diabetes 1.5, managed as type 2 Diverticulosis Hiatal hernia History of small bowel obstruction Hyperlipidemia Hypertension 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 Social History Household Members: None Housing: House Do you presently have visiting nurse or other home services: No Unable to assess alcohol history related to: Unknown Alcohol intake: former Patient Tobacco Use Status: Former Tobacco user Second Hand Smoke Exposure: No Advance Directives: No Advance Directives Information Provided: No Advance Directives Date on File: 05/01/20 service: No Current occupational status: unemployed and disabled Meds Allergies Allergy/AdvReac Type Severity Reaction Status Date / Time Penicillins Allergy Unknown UNKWN Verified 02/10/22 13:02 Active Medications: Current Medications Pharmacy Consult (Consult Rx Perform Med Rec) 1 each MISCELLANE ONCE PRN PRN Reason: Consult order Home Medications Medication Instructions Recorded Confirmed Last Taken Type levothyroxine 75 mcg tablet 75 mcg PO DAILY 06/27/20 02/10/22 12/28/21 History atorvastatin 40 mg tablet 40 mg PO DAILY 02/10/22 02/10/22 Unknown History lisinopril 2.5 mg tablet 2.5 mg PO DAILY 02/10/22 02/10/22 Unknown History metolazone 2.5 mg tablet 2.5 mg PO DAILY 02/10/22 02/10/22 Unknown History spironolactone 25 mg tablet 25 mg PO DAILY 02/10/22 02/10/22 Unknown History Physical Exam Vital Signs and Narrative: Vital Signs: Last Vital Signs Temp 97.9 F 02/27/22 14:54 Pulse 87 02/27/22 14:54 Resp 16 02/27/22 14:54 BP 158/87 H 02/27/22 14:54 Pulse Ox 99 02/27/22 14:54 O2 Del Method 02/27/22 14:54 BMI result Body Mass Index 33.9 Const: Other: Constitutional : Alert, oriented, not in distress Neck : Normal inspection, Supple Cardiovascular : RRR, mildly elevated JVP, +1 bilateral lower extremity edema Respiratory : fair bilateral air entry, no crackles, wheezes or rhonchi Gastrointestinal: soft, lax, Normal bowel sounds, Non tender Skin : Warm, Dry Neurological : Alert & oriented x3, No focal deficit , CN 2-12 within normal Results Labs CBC and Chem 7: 02/27/22 12:29 02/27/22 12:29 Labs: Laboratory Results - last 24 hr 02/27/22 02/27/22 02/27/22 12:29 12:29 12:29 MCV 93.4 MCH 32.3 MCHC 34.6 RDW 14.5 Plt Count 387 MPV 9.7 Immature Gran % (Auto) 0.5 H Neut % (Auto) 76.7 H Lymph % (Auto) 13.4 L [place] % (Auto) 8.0 Eos % (Auto) 0.8 Baso % (Auto) 0.6 Lymph # (Auto) 1.5 [place] # (Auto) 0.9 Eos # (Auto) 0.1 Baso # (Auto) 0.1 Abs Immat Gran (auto) 0.05 H Absolute Neuts (auto) 8.3 Absolute Nucleated RBC 0.000 Nucleated RBC % (auto) 0.0 Anion Gap 15 Estim Creat Clear Calc 26.4 Estimated GFR 17 POC Glucose Random Glucose 40 L* Calcium 7.1 L D Total Bilirubin 0.2 AST 23 ALT 13 Alkaline Phosphatase 53 B-Natriuretic Peptide 49 Total Protein 4.6 L Albumin 2.1 L 02/27/22 02/27/22 02/27/22 13:04 13:19 13:57 MCV MCH MCHC RDW Plt Count MPV Immature Gran % (Auto) Neut % (Auto) Lymph % (Auto) [place] % (Auto) Eos % (Auto) Baso % (Auto) Lymph # (Auto) [place] # (Auto) Eos # (Auto) Baso # (Auto) Abs Immat Gran (auto) Absolute Neuts (auto) Absolute Nucleated RBC Nucleated RBC % (auto) Anion Gap Estim Creat Clear Calc Estimated GFR POC Glucose 36 L* 42 L* 106 Random Glucose Calcium Total Bilirubin AST ALT Alkaline Phosphatase B-Natriuretic Peptide Total Protein Albumin 02/27/22 14:59 MCV MCH MCHC RDW Plt Count MPV Immature Gran % (Auto) Neut % (Auto) Lymph % (Auto) [place] % (Auto) Eos % (Auto) Baso % (Auto) Lymph # (Auto) [place] # (Auto) Eos # (Auto) Baso # (Auto) Abs Immat Gran (auto) Absolute Neuts (auto) Absolute Nucleated RBC Nucleated RBC % (auto) Anion Gap Estim Creat Clear Calc Estimated GFR POC Glucose 110 Random Glucose Calcium Total Bilirubin AST ALT Alkaline Phosphatase B-Natriuretic Peptide Total Protein Albumin Assessment and Plan (1) Anasarca associated with disorder of kidney: Status: Acute (2) Hypoglycemia: Status: Acute Plan ?a 65 years old male with PMH of diabetes, nephrotic syndrome who presents to the hospital with weakness, sweating and low sugar level. Hypoglycemia and type 2 diabetes Likely related to glipizide, to hold Diabetic diet SSI Anasarca associated with nephrotic syndrome Continue metolazone, IV Lasix Monitor intake and output ?CKD stage 3 Creatinine stable around 3.8-4 patient will need close monitoring and might eventually in the on dialysis History of hypertension Continue home blood History of hypothyroidism Continue home levothyroxine DVT prophylaxis: Mablenox Code status:? Full code The patient will need 2. Overnight hospital stay for monitoring of hypoglycemic events and treatment of anasarca to prevent possible decompensation into hypoxic respiratory failure. Quality Stroke Does the patient have a stroke diagnosis?: No VTE Prior VTE?: No VTE Risk Level:: Medical - moderate - high VTE Device Contraindication: Treatment Not Indicated VTE Drug Contraindication: N/A - Med Ordered
[2022-02-27] MEDS: Enoxaparin Sodium 30 MG/0.3 ML SYRINGE SUBCUT (15:55)
[2022-02-27] MEDS: 0.9 % Sodium Chloride Flush 3 ML SYRINGE IVFLUSH (16:00)
[2022-02-27 16:07] LABS: Glucose, Whole Blood 137 mg/dL (60-115)
--- NOTE | 2022-02-27 16:23 | PHA.MEDREC ---
Pharmacy Consult ? Medication Reconciliation Pharmacy has completed the medication reconciliation. Patient could not recall his meds. Patient stated he uses Dr. Tapia, included all recent medications by him, Also used list from [facility].
[2022-02-27 17:32] LABS: Glucose, Whole Blood 190 mg/dL (60-115)
[2022-02-27 19:37] VITALS: BP 117/63; PULSE 81; RESP 18; TEMP 36.7; O2SAT 99
[2022-02-27] MEDS: Furosemide 40 MG/4 ML VIAL IVPUSH (19:38)
[2022-02-27 20:53] VITALS: BP 119/71; PULSE 77; RESP 18; TEMP 36.6; O2SAT 99
[2022-02-27 21:06] LABS: Glucose, Whole Blood 127 mg/dL (60-115)
[2022-02-27 21:39] LABS: COVID-19 Test Negative (Negative); IDNOW Serial# 08D9AD1C
[2022-02-28 04:00] VITALS: BP 140/68; PULSE 85; RESP 18; TEMP 36.2; O2SAT 95
[2022-02-28] MEDS: Levothyroxine Sodium 75 MCG TABLET PO (06:00)
[2022-02-28] MEDS: polyethylene glycoL 3350 17 GM POWD.PACK PO (06:47)
[2022-02-28 07:25] VITALS: BP 154/84; PULSE 76; RESP 16; TEMP 36.6; O2SAT 99
[2022-02-28 07:30] LABS: Hematocrit 31.4 % (42.0-52.0); Mean Corpuscular Hemoglobin 32.9 pg (27.0-33.0); Mean Platelet Volume 9.8 fL (9.4-12.4); Platelet Count 353 X10*3/uL (160-400); Red Blood Count 3.34 X10*6/uL (4.60-5.80); Red Cell Distribution Width 14.7 % (11.0-16.0); White Blood Count 6.9 X10*3/uL (4.8-10.8)
[2022-02-28 07:35] LABS: Glucose, Whole Blood 87 mg/dL (60-115)
[2022-02-28] MEDS: 0.9 % Sodium Chloride Flush 3 ML SYRINGE IVFLUSH ×2 (07:57→17:35)
[2022-02-28] MEDS: Furosemide 40 MG/4 ML VIAL IVPUSH ×2 (07:57→17:34)
[2022-02-28] MEDS: metOLazone 2.5 MG TABLET PO (07:57)
[2022-02-28 08:09] LABS: Anion Gap 13 (12-20); Blood Urea Nitrogen 23 mg/dL (9-16); Calcium 7.2 mg/dL (8.4-10.2); Carbon Dioxide 18 mmol/L (22-29); Chloride 111 mmol/L (96-108); Creatinine Clr Calc Pharmacy 24.7; Estimated Glomerular Filt Rate 16; Glucose Random 85 mg/dL (60-115); Potassium 3.5 mmol/L (3.3-5.1); Sodium 138 mmol/L (135-145)
[2022-02-28 09:13] LABS: Estimated Average Glucose 108 mg/dL; Hemoglobin A1c % 5.4 %
[2022-02-28 11:14] VITALS: BP 143/87; PULSE 80; RESP 16; TEMP 36.8; O2SAT 98
[2022-02-28 12:21] LABS: Glucose, Whole Blood 146 mg/dL (60-115)
[2022-02-28] MEDS: bisacodyL 10 MG SUPP.RECT PR (12:31)
--- NOTE | 2022-02-28 12:33 | P.PNIM_ITS ---
Subjective Subjective Date of Service: 02/28/22 Interval History: Feels better, swelling going down No further episodes of hypoglycemia Review of Systems No fever, chills but reporting generalized weakness No chest pain, palpitation No shortness of breath or coughing but has lower extremity edema No abdominal pain, nausea or vomiting No urinary symptoms No any rash or wounds Physical Exam Vital Signs: Vital Signs: Last Vital Signs Temp 98.3 F 02/28/22 11:14 Pulse 80 02/28/22 11:14 Resp 16 02/28/22 11:14 BP 143/87 H 02/28/22 11:14 Pulse Ox 98 02/28/22 11:14 O2 Del Method 02/28/22 11:14 BMI result Body Mass Index 33.9 Const: Other: Constitutional : Alert, oriented, not in distress Neck : Normal inspection, Supple Cardiovascular : RRR, mildly elevated JVP, +1 bilateral lower extremity edema Respiratory : fair bilateral air entry, no crackles, wheezes or rhonchi Gastrointestinal: soft, lax, Normal bowel sounds, Non tender Skin : Warm, Dry Neurological : Alert & oriented x3, No focal deficit , CN 2-12 within normal Objective Data Active Medications Acetaminophen (Acetaminophen 325 Mg Tablet) 650 mg PO Q6H PRN PRN Reason: Pain, Mild (Pain Scale 1-3) Enoxaparin Sodium (Enoxaparin Sodium 30 Mg/0.3 Ml Syringe) 30 mg SUBCUT Q24H [facility] Last Admin: 02/27/22 15:55 Dose: 30 mg Documented By: ALFREDO Furosemide (Furosemide 40 Mg/4 Ml Vial) 40 mg IVPUSH BID@0900,1800 [facility]; Protocol Last Admin: 02/28/22 07:57 Dose: 40 mg Documented By: OLAF Insulin Human Lispro (Insulin Lispro 100 Unit/Ml 3 Ml Vial) 0 unit SUBCUT QIDACHS [facility]; Protocol Last Admin: 02/28/22 12:29 Dose: Not Given Documented By: OLAF Non-Admin Reason: No Insulin Coverage Levothyroxine Sodium (Levothyroxine Sodium 75 Mcg Tablet) 75 mcg PO DAILY@0600 [facility] Last Admin: 02/28/22 06:00 Dose: 75 mcg Documented By: ANTOIC Metolazone (Metolazone 2.5 Mg Tablet) 2.5 mg PO DAILY [facility] Last Admin: 02/28/22 07:57 Dose: 2.5 mg Documented By: OLAF Ondansetron HCl (Ondansetron Hcl 4 Mg/2 Ml Vial) 4 mg IVPUSH Q8H PRN PRN Reason: Nausea and Vomiting Pharmacy Consult (Consult Rx Perform Med Rec) 1 each MISCELLANE ONCE PRN PRN Reason: Consult order Polyethylene Glycol (Polyethylene Glycol 3350 17 Gm Powd.Pack) 17 gm PO DAILY PRN PRN Reason: constipation Last Admin: 02/28/22 06:47 Dose: 17 gm Documented By: ANTOIC Sodium Chloride (0.9 % Sodium Chloride Flush 3 Ml Syringe) 3 ml IVFLUSH QSHIFT [facility] Last Admin: 02/28/22 07:57 Dose: 3 ml Documented By: OLAF Labs CBC & Chem 7: 02/28/22 06:56 02/28/22 06:56 Labs: Laboratory Results - last 24 hr 02/27/22 02/27/22 02/27/22 12:29 12:29 12:29 MCV 93.4 MCH 32.3 MCHC 34.6 RDW 14.5 Plt Count 387 MPV 9.7 Immature Gran % (Auto) 0.5 H Neut % (Auto) 76.7 H Lymph % (Auto) 13.4 L [place] % (Auto) 8.0 Eos % (Auto) 0.8 Baso % (Auto) 0.6 Lymph # (Auto) 1.5 [place] # (Auto) 0.9 Eos # (Auto) 0.1 Baso # (Auto) 0.1 Abs Immat Gran (auto) 0.05 H Absolute Neuts (auto) 8.3 Absolute Nucleated RBC 0.000 Nucleated RBC % (auto) 0.0 Anion Gap 15 Estim Creat Clear Calc 26.4 Estimated GFR 17 POC Glucose Random Glucose 40 L* Estimat Average Glucose Hemoglobin A1c % Calcium 7.1 L D Total Bilirubin 0.2 AST 23 ALT 13 Alkaline Phosphatase 53 B-Natriuretic Peptide 49 Total Protein 4.6 L Albumin 2.1 L COVID-19 ([facility]) COVID-19 Clin Com 02/27/22 02/27/22 02/27/22 13:04 13:19 13:57 MCV MCH MCHC RDW Plt Count MPV Immature Gran % (Auto) Neut % (Auto) Lymph % (Auto) [place] % (Auto) Eos % (Auto) Baso % (Auto) Lymph # (Auto) [place] # (Auto) Eos # (Auto) Baso # (Auto) Abs Immat Gran (auto) Absolute Neuts (auto) Absolute Nucleated RBC Nucleated RBC % (auto) Anion Gap Estim Creat Clear Calc Estimated GFR POC Glucose 36 L* 42 L* 106 Random Glucose Estimat Average Glucose Hemoglobin A1c % Calcium Total Bilirubin AST ALT Alkaline Phosphatase B-Natriuretic Peptide Total Protein Albumin COVID-19 ([facility]) COVID-19 Nexgence 02/27/22 02/27/22 02/27/22 14:59 15:59 17:08 MCV MCH MCHC RDW Plt Count MPV Immature Gran % (Auto) Neut % (Auto) Lymph % (Auto) [place] % (Auto) Eos % (Auto) Baso % (Auto) Lymph # (Auto) [place] # (Auto) Eos # (Auto) Baso # (Auto) Abs Immat Gran (auto) Absolute Neuts (auto) Absolute Nucleated RBC Nucleated RBC % (auto) Anion Gap Estim Creat Clear Calc Estimated GFR POC Glucose 110 137 H 190 H Random Glucose Estimat Average Glucose Hemoglobin A1c % Calcium Total Bilirubin AST ALT Alkaline Phosphatase B-Natriuretic Peptide Total Protein Albumin COVID-19 ([facility]) [email or web address] 02/27/22 02/27/22 02/28/22 21:00 21:01 06:56 MCV 94.0 MCH 32.9 MCHC 35.0 RDW 14.7 Plt Count 353 MPV 9.8 Immature Gran % (Auto) Neut % (Auto) Lymph % (Auto) [place] % (Auto) Eos % (Auto) Baso % (Auto) Lymph # (Auto) [place] # (Auto) Eos # (Auto) Baso # (Auto) Abs Immat Gran (auto) Absolute Neuts (auto) Absolute Nucleated RBC 0.000 Nucleated RBC % (auto) 0.0 Anion Gap Estim Creat Clear Calc Estimated GFR POC Glucose 127 H Random Glucose Estimat Average Glucose Hemoglobin A1c % Calcium Total Bilirubin AST ALT Alkaline Phosphatase B-Natriuretic Peptide Total Protein Albumin COVID-19 ([facility]) Negative [email or web address] See Note 02/28/22 02/28/22 02/28/22 06:56 06:56 07:27 MCV MCH MCHC RDW Plt Count MPV Immature Gran % (Auto) Neut % (Auto) Lymph % (Auto) [place] % (Auto) Eos % (Auto) Baso % (Auto) Lymph # (Auto) [place] # (Auto) Eos # (Auto) Baso # (Auto) Abs Immat Gran (auto) Absolute Neuts (auto) Absolute Nucleated RBC Nucleated RBC % (auto) Anion Gap 13 Estim Creat Clear Calc 24.7 Estimated GFR 16 POC Glucose 87 Random Glucose 85 D Estimat Average Glucose 108 Hemoglobin A1c % 5.4 Calcium 7.2 L Total Bilirubin AST ALT Alkaline Phosphatase B-Natriuretic Peptide Total Protein Albumin COVID-19 ([facility]) COVID-19 Clin Com 02/28/22 11:51 MCV MCH MCHC RDW Plt Count MPV Immature Gran % (Auto) Neut % (Auto) Lymph % (Auto) [place] % (Auto) Eos % (Auto) Baso % (Auto) Lymph # (Auto) [place] # (Auto) Eos # (Auto) Baso # (Auto) Abs Immat Gran (auto) Absolute Neuts (auto) Absolute Nucleated RBC Nucleated RBC % (auto) Anion Gap Estim Creat Clear Calc Estimated GFR POC Glucose 146 H Random Glucose Estimat Average Glucose Hemoglobin A1c % Calcium Total Bilirubin AST ALT Alkaline Phosphatase B-Natriuretic Peptide Total Protein Albumin COVID-19 ([facility]) COVID-19 Clin Com Assessment and Plan (1) Hypoglycemia: Status: Acute (2) Anasarca associated with disorder of kidney: Status: Acute (3) Adverse effect of glipizide: Status: Acute Plan ?a 65 years old male with PMH of diabetes, nephrotic syndrome who presents to the hospital with weakness, sweating and low sugar level. Hypoglycemia and type 2 diabetes No further episodes of hypoglycemia Likely related to glipizide, to hold Diabetic diet SSI Anasarca associated with nephrotic syndrome Continue metolazone next [place] continue IV Lasix Monitor intake and output ?CKD stage 3 Creatinine stable around 3.8-4 patient will need close monitoring and might eventually in the on dialysis History of hypertension Continue home blood History of hypothyroidism Continue home levothyroxine DVT prophylaxis: Lovenox Code status:? Full code The patient will need Overnight hospital stay for monitoring of hypoglycemic events and treatment of anasarca to prevent possible decompensation into hypoxic respiratory failure. Quality Stroke Does the patient have a stroke diagnosis?: No VTE Prior VTE?: No VTE Risk Level:: Medical - moderate - high VTE Device Contraindication: Treatment Not Indicated VTE Drug Contraindication: N/A - Med Ordered
[2022-02-28 15:15] VITALS: BP 135/64; PULSE 87; RESP 18; TEMP 36.7; O2SAT 98
[2022-02-28 17:11] LABS: Glucose, Whole Blood 124 mg/dL (60-115)
[2022-02-28] MEDS: Enoxaparin Sodium 30 MG/0.3 ML SYRINGE SUBCUT (17:34)
[2022-02-28 19:08] VITALS: BP 131/63; PULSE 78; RESP 18; TEMP 36.6; O2SAT 99
[2022-02-28 19:52] LABS: Glucose, Whole Blood 133 mg/dL (60-115)
[2022-02-28 23:04] VITALS: BP 115/62; PULSE 82; RESP 18; TEMP 36.4; O2SAT 97
[2022-03-01] MEDS: 0.9 % Sodium Chloride Flush 3 ML SYRINGE IVFLUSH ×2 (02:11→10:20)
[2022-03-01 04:00] VITALS: BP 116/71; PULSE 71; RESP 18; TEMP 36.6; O2SAT 95
[2022-03-01] MEDS: Levothyroxine Sodium 75 MCG TABLET PO (06:02)
[2022-03-01 08:00] VITALS: BP 129/78; PULSE 81; RESP 20; TEMP 36.9; O2SAT 99
[2022-03-01 08:09] LABS: Glucose, Whole Blood 92 mg/dL (60-115)
[2022-03-01 08:53] LABS: Anion Gap 12 (12-20); Blood Urea Nitrogen 23 mg/dL (9-16); Calcium 7.2 mg/dL (8.4-10.2); Carbon Dioxide 18 mmol/L (22-29); Chloride 111 mmol/L (96-108); Creatinine Clr Calc Pharmacy 25.5; Estimated Glomerular Filt Rate 17; Glucose Random 94 mg/dL (60-115); Potassium 3.1 mmol/L (3.3-5.1); Sodium 138 mmol/L (135-145)
[2022-03-01] MEDS: metOLazone 2.5 MG TABLET PO (10:20)
[2022-03-01] MEDS: Atorvastatin Calcium 40 MG TABLET PO (10:20)
[2022-03-01] MEDS: Torsemide 20 MG TABLET 100 MG PO (10:20)
[2022-03-01] MEDS: Potassium Chloride Packet 20 MEQ PACKET 40 MEQ PO (10:25)
--- NOTE | 2022-03-01 10:47 | PM.DS ---
DS: Providers Provider Date of Service: 03/01/22 Date of admission: 02/27/22 15:41 Primary care physician: Segundo Tapia MD DS: Diagnosis Discharge Diagnosis (1) Hypoglycemia: Status: Acute (2) Anasarca associated with disorder of kidney: Status: Acute (3) Adverse effect of glipizide: Status: Acute DS: Summary Hospital Course Hospital Course: Admission note HPI ?a 65 years old male with PMH of diabetes, nephrotic syndrome who presents to the hospital with weakness, sweating and low sugar level.? the patient reported he was doing fairly okay until this morning when he started to feel weak, having sweats and palpitations.? He reported taking his medications yesterday and not eating well since then specially not this morning.? Denies any fever, chills, chest pain, abdominal pain, nausea, vomiting, change in bowel habit or urinary symptoms. He reports the swelling in his lower extremities is little bit worse than before but overall controlled on not as bad as previous admissions. Note in the Emergency to have low blood sugar readings requiring glucose supplement.? Received IV Lasix for evidence of fluid overload. Will be admitted for further evaluation and treatment. Hospital course The patient was admitted for evaluation of hypoglycemic events. She reported to take glipizide, metformin and Januvia at home. HbA1c 5.8. Oral medications were held and the patient was monitored over the course of hospital stay with no recurrence of hypoglycemia. Advised to discontinue glipizide for risk of hypoglycemia. Advised to discontinue metformin for CKD stage 4. To continue with Januvia only at time of discharge. He was treated as well for fluid overload from nephrotic syndrome with IV Lasix. Swelling decreased significantly and the patient will be discharged home on metolazone and torsemide. discontinue glipizide and metformin To avoid side effects with advanced kidney disease Continue with Januvia only Continue metolazone and torsemide as prescribed. Time Spent with Patient Time attestation: Total time spent providing and/or coordinating discharge services: Discharge coordination time: Greater than 30 minutes Quality: Safe Use of Opioids Does Pt have an Active Cancer Diagnosis on the Problem List?: No Quality: Stroke Does the patient have a stroke diagnosis?: No Physical Exam Vital Signs: Vital Signs: Last Vital Signs Temp 98.4 F 03/01/22 08:00 Pulse 81 03/01/22 08:00 Resp 20 03/01/22 08:00 BP 129/78 03/01/22 08:00 Pulse Ox 99 03/01/22 08:00 O2 Del Method 03/01/22 04:00 BMI result Body Mass Index 33.9 Const: Other: Constitutional : Alert, oriented, not in distress Neck : Normal inspection, Supple Cardiovascular : RRR, mildly elevated JVP, Trace bilateral lower extremity edema Respiratory : fair bilateral air entry, no crackles, wheezes or rhonchi Gastrointestinal: soft, lax, Normal bowel sounds, Non tender Skin : Warm, Dry Neurological : Alert & oriented x3, No focal deficit , CN 2-12 within normal DS: Data Data Completed and Pending Completed studies during hospitalization [Text1]: Procedures Extraction of Right Inguinal Lymphatic, Percutaneous Approach, Diagnostic (04/23/20) Labs on day of discharge: Laboratory Results - last 24 hr 02/28/22 02/28/22 02/28/22 11:51 15:59 19:48 Sodium Potassium Chloride Carbon Dioxide Anion Gap BUN Creatinine Estim Creat Clear Calc Estimated GFR POC Glucose 146 H 124 H 133 H Random Glucose Calcium 03/01/22 03/01/22 06:11 08:05 Sodium 138 Potassium 3.1 L Chloride 111 H Carbon Dioxide 18 L Anion Gap 12 BUN 23 H Creatinine 3.70 H Estim Creat Clear Calc 25.5 Estimated GFR 17 POC Glucose 92 Random Glucose 94 Calcium 7.2 L Discharge Plan Discharge Patient Disposition: Home, Self-Care Discharge Diagnosis: hypoglycemic events Fluid overload Referrals: Segundo Tapia MD [Primary Care Provider] - 1 Week Discharge Medications: Continued levothyroxine 75 mcg Tablet 75 mcg PO DAILY atorvastatin 40 mg tablet 40 mg PO DAILY amlodipine 5 mg Tablet 5 mg PO DAILY Qty: 30 0RF Protocol: Hold for SBP< HOLD for SBP < : 90 lisinopril 2.5 mg tablet 2.5 mg PO DAILY metolazone 2.5 mg tablet 2.5 mg PO DAILY spironolactone 25 mg tablet 25 mg PO DAILY Januvia 100 mg tablet 1 tab PO DAILY torsemide 100 mg tablet 1 tab PO DAILY Discontinued metformin 500 mg tablet extended release 24 hr 2 tab PO BID Discharge Orders: Discharge Order (Routine); Ordered 03/01/22 Ordered By: Ileana Leach Diet: Low salt diet Activity on Discharge: As tolerated Stand Alone Forms: Patient Portal Discharge page Care Plan Goals: Read below Health Concerns: Read below Plan of Treatment: Read below Assessment: you were admitted to the hospital for monitoring of an episode of low blood sugar believed to be a result of taking diabetes medications. You were monitored with no recurrence with a hypoglycemic event. We advise you to discontinue glipizide and metformin. Continue with Januvia only as your blood sugar controlled is very good. You were treated with IV Lasix for fluid overload. To continue with metolazone and torsemide at home. discontinue glipizide and metformin To avoid side effects with advanced kidney disease Continue with Januvia only Continue metolazone and torsemide as prescribed.
--- NOTE | 2022-03-01 12:17 | MHC.CM.PN ---
PT DISCHARGED HOME TODAY WITH NO SERVICES, PRIOR TO BEING SEEN BY CM PT ARRANGED TRANSPORT
--- NOTE | 2022-03-02 12:14 | CONS_ITS ---
DATE OF SERVICE: 02/28/2022 REASON FOR CONSULTATION: I was called to see this patient to assist in the management of patient's advanced renal failure and edema. HISTORY OF PRESENT ILLNESS: [place] is well known to us. He has advanced renal failure with diabetes mellitus and nephrotic syndrome. He has been on high dose of diuretics due to distant edema. He comes back because of weakness and sweatiness. He was found to have hypoglycemia. At present, renal function is close to baseline. REVIEW OF SYSTEMS: Positive for edema, lightheadedness, sweating. No nausea, vomiting. No shortness of breath. No urinary symptoms. All other systems were reviewed. ONGOING MEDICAL PROBLEMS: Include history of acute on chronic renal failure, anasarca, CHF, CKD, diabetes mellitus, obesity, hypertension. FAMILY HISTORY: Noncontributory. SOCIAL HISTORY: No history of smoking or alcohol abuse. History of smoking several years ago. ALLERGIES: HE IS ALLERGIC TO PENICILLIN. MEDICATIONS AT HOME: Levothyroxine, lisinopril 2.5 mg, metolazone 2.5 daily, spironolactone 25 mg, levothyroxine, atorvastatin. PHYSICAL EXAMINATION: GENERAL: Today, [place] appears comfortable. He is obese. He has edema. NECK: Supple. No JVD. LUNGS: Air entry equal, but decreased in the bases. HEART: S1, S2 heard. No gallop. ABDOMEN: Soft, nontender. NEURO: Alert and awake. No asterixis. VITAL SIGNS: Blood pressure was 140/80 mmHg, pulse 80 per minute. LABORATORY DATA: Hemoglobin 9.0, platelets 353. Sodium 130, potassium 3.2, CO2 18, BUN 23, creatinine 3.81. IMPRESSION: 66-year-old gentleman with diabetes mellitus, nephrotic syndrome and chronic kidney disease stage 4, comes in with hypoglycemia. From the renal standpoint, he has advanced renal failure and renal functions close to baseline. No signs and symptoms of uremia. He continues to have fluid overload and we will resume Lasix and continue with diuretics. Keep on low-sodium diet. No indication for dialysis and we will continue to monitor renal function closely. We will follow along with the team. Davon Forte MD BPA/MODL / [phone]
== END 2022-03-01 11:40 | disposition home or self-care (01) | DRG 638 ==
LOC: HO.ED 15:30 → HO.EDOVER 16:08 → HO.IMC 02-28 01:04
PROVIDERS: Admitting Provider Student in an Organized Health Care Education/Training Program; Emergency Provider Student in an Organized Health Care Education/Training Program; PCP Internal Medicine; Visit Provider Student in an Organized Health Care Education/Training Program
DX: E11.649 Type 2 diabetes mellitus with hypoglycemia without coma (principal); I13.0 Hypertensive heart and chronic kidney disease with heart failure and stage 1 through stage 4 chronic kidney disease, or unspecified chronic kidney disease; N04.9 Nephrotic syndrome with unspecified morphologic changes; T38.3X5A Adverse effect of insulin and oral hypoglycemic [antidiabetic] drugs, initial encounter; E78.5 Hyperlipidemia, unspecified; I50.9 Heart failure, unspecified; N18.4 Chronic kidney disease, stage 4 (severe); E11.22 Type 2 diabetes mellitus with diabetic chronic kidney disease; Z20.822 Contact with and (suspected) exposure to COVID-19; Z87.891 Personal history of nicotine dependence; Z88.0 Allergy status to penicillin; Z79.890 Hormone replacement therapy; Z79.899 Other long term (current) drug therapy
CPT/HCPCS: 36415; 80048; 80053; 82947; 83036; 83880; 84484; 85025; 85027; 87635; 93005; 96374; 99285; J1650; J1940

== ENCOUNTER 2022-03-12 09:59 | Outpatient (REF) | payer MEDICARE, MEDICAID, SELFPAY ==
[2022-03-12 10:33] LABS: MANUAL DIFF FLAG NO
[2022-03-12 10:45] LABS: Basophils Absolute Auto 0.1 X10*3/uL (0.0-0.2); Basophils Percent Auto 1.1 % (0-2); Eosinophils Absolute Auto 0.5 X10*3/uL (0.0-0.4); Eosinophils Percent Auto 4.8 % (0-4); Hemoglobin 11.7 g/dl (14.0-18.0); Imm Gran Abs Auto 0.23 X10*3/uL (0.00-0.03); Imm Gran Pct Auto 2.2 % (0.0-0.4); Lymphocytes Percent Auto 18.6 % (20-40); Mean Corpuscular HGB Conc 34.4 g/dl (31.0-36.0); Mean Corpuscular Hemoglobin 32.4 pg (27.0-33.0); Mean Corpuscular Volume 94.2 fL (80.0-98.0); Mean Platelet Volume 10.1 fL (9.4-12.4); Monocytes Absolute Auto 0.7 X10*3/uL (0.1-1.2); Monocytes Percent Auto 6.9 % (2-11); Neutrophils Percent Auto 66.4 % (45-73); Platelet Count 401 X10*3/uL (160-400); Red Blood Count 3.61 X10*6/uL (4.60-5.80); Red Cell Distribution Width 14.1 % (11.0-16.0); White Blood Count 10.5 X10*3/uL (4.8-10.8)
[2022-03-12 10:53] LABS: Estimated Average Glucose 120 mg/dL; Hemoglobin A1c % 5.8 %
[2022-03-12 11:16] LABS: Alanine Aminotransferase 12 U/L (0-40); Albumin Level 2.2 g/dL (3.5-5.0); Alkaline Phosphatase 55 U/L (39-117); Anion Gap 16 (12-20); Aspartate Amino Transferase 17 U/L (5-37); Bilirubin Total 0.2 mg/dL (0.0-1.0); Blood Urea Nitrogen 34 mg/dL (9-16); Calcium 8.1 mg/dL (8.4-10.2); Carbon Dioxide 17 mmol/L (22-29); Chloride 108 mmol/L (96-108); Estimated Glomerular Filt Rate 17; Glucose Fasting 141 mg/dL (60-99); Phosphorus 7.2 mg/dL (2.7-4.5); Potassium 3.8 mmol/L (3.3-5.1); Sodium 137 mmol/L (135-145); Total Protein 4.9 g/dL (6.5-8.0)
[2022-03-13 17:51] LABS: Calcium (PTHI) 8.2 mg/dL (8.6-10.3); PTHI 25 pg/mL (16-77)
== END 2022-03-12 10:00 | disposition home or self-care (01) ==
LOC: HO.10HDL 09:59
PROVIDERS: Absent Provider Internal Medicine Nephrology; Visit Provider Internal Medicine
DX: R60.0 Localized edema (principal); E11.22 Type 2 diabetes mellitus with diabetic chronic kidney disease; N18.4 Chronic kidney disease, stage 4 (severe); N25.0 Renal osteodystrophy; N04.9 Nephrotic syndrome with unspecified morphologic changes
CPT/HCPCS: 36415; 80053; 83036; 83970; 84100; 85025

== ENCOUNTER 2022-04-15 10:24 | Outpatient (REF) | payer MEDICARE, MEDICAID, SELFPAY ==
[2022-04-15 13:49] LABS: MANUAL DIFF FLAG NO
[2022-04-15 13:54] LABS: Basophils Absolute Auto 0.1 X10*3/uL (0.0-0.2); Eosinophils Absolute Auto 0.4 X10*3/uL (0.0-0.4); Eosinophils Percent Auto 4.3 % (0-4); Hematocrit 27.9 % (42.0-52.0); Hemoglobin 9.7 g/dl (14.0-18.0); Imm Gran Abs Auto 0.11 X10*3/uL (0.00-0.03); Imm Gran Pct Auto 1.2 % (0.0-0.4); Lymphocytes Percent Auto 21.7 % (20-40); Mean Corpuscular HGB Conc 34.8 g/dl (31.0-36.0); Mean Corpuscular Hemoglobin 32.7 pg (27.0-33.0); Mean Corpuscular Volume 93.9 fL (80.0-98.0); Mean Platelet Volume 10.6 fL (9.4-12.4); Monocytes Absolute Auto 0.8 X10*3/uL (0.1-1.2); Monocytes Percent Auto 9.3 % (2-11); Neutrophils Absolute Auto 5.6 x10*3/uL (2.0-8.3); Neutrophils Percent Auto 62.5 % (45-73); Platelet Count 414 X10*3/uL (160-400); Red Blood Count 2.97 X10*6/uL (4.60-5.80); Red Cell Distribution Width 14.1 % (11.0-16.0)
[2022-04-15 14:16] LABS: Alanine Aminotransferase 13 U/L (0-40); Albumin Level 2.2 g/dL (3.5-5.0); Alkaline Phosphatase 58 U/L (39-117); Anion Gap 16 (12-20); Aspartate Amino Transferase 16 U/L (5-37); Bilirubin Total 0.2 mg/dL (0.0-1.0); Blood Urea Nitrogen 35 mg/dL (9-16); Calcium 7.5 mg/dL (8.4-10.2); Carbon Dioxide 17 mmol/L (22-29); Chloride 108 mmol/L (96-108); Estimated Glomerular Filt Rate 13; Glucose Fasting 128 mg/dL (60-99); Potassium 3.4 mmol/L (3.3-5.1); Sodium 138 mmol/L (135-145); Total Protein 4.5 g/dL (6.5-8.0)
[2022-04-15 14:19] LABS: Estimated Average Glucose 148 mg/dL; Hemoglobin A1C 136.7319 umol/L; Hemoglobin A1c % 6.8 %
== END 2022-04-15 10:25 | disposition home or self-care (01) ==
LOC: HO.10HDL 10:24
PROVIDERS: Visit Provider Internal Medicine
DX: E11.22 Type 2 diabetes mellitus with diabetic chronic kidney disease (principal); N18.9 Chronic kidney disease, unspecified
CPT/HCPCS: 36415; 80053; 83036; 85025

== ENCOUNTER → 2022-05-04 10:44 | Outpatient (BNVA) | payer MEDICARE, MEDICAID, SELFPAY | PROVIDERS: PCP Internal Medicine; Referring Provider Internal Medicine; Visit Provider Internal Medicine | DX: I35.0 Nonrheumatic aortic (valve) stenosis (principal) | CPT/HCPCS: 99212 ==

== ENCOUNTER 2022-05-27 10:54 | Outpatient (REF) | payer MEDICARE, MEDICAID, SELFPAY ==
[2022-05-27 13:53] LABS: MANUAL DIFF FLAG NO
[2022-05-27 13:58] LABS: Basophils Absolute Auto 0.1 X10*3/uL (0.0-0.2); Basophils Percent Auto 0.9 % (0-2); Eosinophils Absolute Auto 0.3 X10*3/uL (0.0-0.4); Eosinophils Percent Auto 3.5 % (0-4); Hemoglobin 9.3 g/dl (14.0-18.0); Imm Gran Abs Auto 0.07 X10*3/uL (0.00-0.03); Imm Gran Pct Auto 0.8 % (0.0-0.4); Lymphocytes Absolute Auto 1.8 X10*3/uL (1.2-4.9); Lymphocytes Percent Auto 20.4 % (20-40); Mean Corpuscular HGB Conc 33.2 g/dl (31.0-36.0); Mean Corpuscular Hemoglobin 32.3 pg (27.0-33.0); Mean Corpuscular Volume 97.2 fL (80.0-98.0); Mean Platelet Volume 10.2 fL (9.4-12.4); Monocytes Absolute Auto 0.7 X10*3/uL (0.1-1.2); Monocytes Percent Auto 7.7 % (2-11); Neutrophils Absolute Auto 5.9 x10*3/uL (2.0-8.3); Neutrophils Percent Auto 66.7 % (45-73); Platelet Count 384 X10*3/uL (160-400); Red Blood Count 2.88 X10*6/uL (4.60-5.80); Red Cell Distribution Width 13.3 % (11.0-16.0); White Blood Count 8.8 X10*3/uL (4.8-10.8)
[2022-05-27 14:07] LABS: Estimated Average Glucose 180 mg/dL; Hemoglobin A1c % 7.9 %
[2022-05-27 14:20] LABS: Alanine Aminotransferase 15 U/L (0-40); Alkaline Phosphatase 70 U/L (39-117); Anion Gap 15 (12-20); Aspartate Amino Transferase 18 U/L (5-37); Bilirubin Total 0.2 mg/dL (0.0-1.0); Blood Urea Nitrogen 43 mg/dL (9-16); Calcium 8.8 mg/dL (8.4-10.2); Carbon Dioxide 19 mmol/L (22-29); Chloride 108 mmol/L (96-108); Estimated Glomerular Filt Rate 11; Glucose Fasting 113 mg/dL (60-99); Iron 63 mcg/dL (45-160); Percent Iron Saturation 34 % (15-50); Potassium 4.1 mmol/L (3.3-5.1); Sodium 138 mmol/L (135-145); Total Iron Binding Capacity 184 mcg/dL (228-428); Total Protein 4.4 g/dL (6.5-8.0); Unsaturated Iron Binding 121 ug/dL
[2022-05-27 14:31] LABS: Free T4 (Free Thyroxine) 0.67 ng/dL (0.71-1.85); Thyroid Stimulating Hormone 2.85 uIU/mL (0.32-4.0)
== END 2022-05-27 10:55 | disposition home or self-care (01) ==
LOC: HO.10HDL 10:54
PROVIDERS: Visit Provider Internal Medicine
DX: D64.9 Anemia, unspecified (principal); E11.9 Type 2 diabetes mellitus without complications; N18.9 Chronic kidney disease, unspecified; E03.9 Hypothyroidism, unspecified
CPT/HCPCS: 36415; 80053; 83036; 83540; 84439; 84443; 85025

== ENCOUNTER 2022-06-26 08:37 | Inpatient (IN) | payer MEDICARE, MEDICAID, SELFPAY ==
[2022-06-26] VITALS (8 sets, daily range): BP systolic 111–145; BP diastolic 49–73; PULSE 74–103; RESP 16–26; TEMP 36.3–36.8; O2SAT 98–100; BMI 40.8; BMI 40.1
--- NOTE | ~2022-06-26 | XR_ITS ---
EXAMINATION: XR CHEST CLINICAL INFORMATION: Shortness of breath, pitting edema. COMPARISON: 01/20/2022 chest radiograph. TECHNIQUE: Frontal view of the chest was obtained. FINDINGS: Mild blunting of the costophrenic angles is again seen bilaterally, left greater than right without significant change. The lungs otherwise clear. The heart and mediastinal structures are unremarkable. XR/XR chest 1V IMPRESSION: Mild blunting of the costophrenic angles bilaterally, left greater than right is similar to the previous study and could represent pleural scarring. No acute cardiopulmonary process.
--- NOTE | 2022-06-26 08:55 | ECG_ITS ---
Test Reason : SOB Blood Pressure : / mmHG Vent. Rate : 091 BPM Atrial Rate : 091 BPM P-R Int : 158 ms QRS Dur : 092 ms QT Int : 386 ms P-R-T Axes : 020 022 020 degrees QTc Int : 474 ms Normal sinus rhythm Nonspecific ST abnormality Abnormal ECG When compared with ECG of 27-FEB-2022 12:05, T wave inversion no longer evident in Inferior leads Referred By: Generic ED Physician Electronically Signed By:OMER WAGNER MD
--- NOTE | 2022-06-26 09:30 | ED_ITS ---
HPI - General Adult General Chief complaint: General Medical Stated complaint: Diff Breathing Fluid Buildup in Legs Feet Time Seen by Provider: 06/26/22 09:13 Source: patient Mode of arrival: ambulatory Limitations: no limitations History of Present Illness HPI narrative: 66-year-old male with a history of chronic kidney disease followed by Dr. Ribeiro, nephrotic syndrome on 80 mg of torsemide BID/metolazone 2.5mg/aldactone 25mg, hypothyroidism, diabetes, hyperlipidemia presents with increasing shortness of breath over the last few weeks, waking, increasing leg swelling. 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 He does not believe this is helping. He feels that he needs IV diuretics. Patient has not been weighing himself daily. But he does feel like he has gained weight. He cannot recall at his last weight was. Patient has had a cough. No chest pain. Patient reports his only able to walk several steps without feeling short of breath. No orthopnea Related Data Home Medications Medication Instructions Recorded Confirmed levothyroxine 75 mcg tablet 75 mcg PO DAILY 06/27/20 06/26/22 atorvastatin 40 mg tablet 40 mg PO DAILY 02/10/22 06/26/22 lisinopril 2.5 mg tablet 2.5 mg PO DAILY 02/10/22 06/26/22 metolazone 2.5 mg tablet 2.5 mg PO DAILY 02/10/22 06/26/22 spironolactone 25 mg tablet 25 mg PO DAILY 02/10/22 06/26/22 sitagliptin phosphate 100 mg 1 tab PO DAILY 02/27/22 06/26/22 tablet (Januvia) metformin 500 mg tablet,extended 1,000 mg PO BID 05/04/22 06/26/22 release 24 hr torsemide 20 mg tablet 40 mg PO BID 05/04/22 06/26/22 Previous Rx's Medication Instructions Recorded amlodipine 5 mg tablet 5 mg PO DAILY #30 tabs 01/05/22 Allergies Allergy/AdvReac Type Severity Reaction Status Date / Time Penicillins Allergy Unknown UNKWN Verified 06/26/22 08:55 Review of Systems Review of Systems: Yes all other systems are reviewed and are negative Constitutional: Constitutional: Reports no additional constitutional complaints, Denies body ache(s), Denies chills, Denies fever(s), Denies headache(s) and Denies weakness Eyes: Eyes: Reports no additional eye complaints and Denies change in vision ENT: Reports system reviewed and no additional complaints, except as documented, Denies dizziness, Denies headache(s), Denies nasal congestion, Denies nasal discharge and Denies neck pain Cardiovascular: Cardiovascular: Reports no additional cardiovascular complaints, Denies chest pain, Reports leg edema, Reports dyspnea and Reports dyspnea on exertion Respiratory: Respiratory: Reports no additional respiratory complaints, Reports cough, Reports dyspnea and Reports dyspnea on exertion Gastrointestinal: Gastrointestinal: Reports no additional gastrointestinal complaints, Denies abdominal pain, Denies diarrhea, Denies nausea and Denies vomiting Genitourinary: Genitourinary: Denies urinary incontinence Musculoskeletal: Musculoskeletal: Reports no additional musculoskeletal complaints, Denies back pain, Denies arthralgias, Denies joint swelling, Denies neck pain, Denies numbness and Denies tingling Integumentary/Breasts: Skin/Breast: Reports system reviewed and no additional complaints, except as docu and Denies rash Neurologic: Reports system reviewed and no additional complaints, except as documented, Denies dizziness, Denies headache(s), Denies numbness, Denies tingling and Denies weakness PMFSH Past Medical History Attestation statement: The following information was validated with the patient. 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 Social History Social History Household Members: None Housing: Apartment Do you presently have visiting nurse or other home services: No Unable to assess alcohol history related to: Unknown Alcohol intake: former Patient Tobacco Use Status: Former Tobacco user Smoked in Last 30 Days: No Second Hand Smoke Exposure: No Use of substances other than those prescribed or required for medical reasons: No Advance Directives: No Advance Directives Information Provided: No Advance Directives Date on File: 05/01/20 service: No Current occupational status: unemployed and disabled Physical Exam ED Vital Signs: Vital Signs - 24 hr 06/26/22 08:47 06/26/22 09:36 06/26/22 10:00 Temperature 97.8 F 98.2 F 98.3 F Pulse Rate 103 H 83 80 Respiratory Rate 26 H 22 H 20 Blood Pressure 116/49 L 126/71 120/68 Pulse Oximetry 100 99 100 Oxygen Delivery Method Room Air Room Air Room Air 06/26/22 11:33 06/26/22 12:13 Temperature Pulse Rate 84 82 Respiratory Rate Blood Pressure 111/72 113/51 L Pulse Oximetry Oxygen Delivery Method BMI result Body Mass Index 40.8 Const General: cooperative, healthy appearing, comfortable and no acute distress Orientation/consciousness: patient oriented x3 Limitations: no limitations [facility] Head: Yes normal to inspection Ears: hearing grossly normal bilaterally Eyes General: appearance normal, both eyes and all related structures Pupils: Equal, round and reactive pupils present Neck Neck: Yes normal visual inspection, Yes full ROM, Yes no lymphadenopathy and Yes no meningeal signs Chest Chest palpation & inspection: normal inspection of the chest Resp Other: With speaking and minimal exertion patient is tachypneic with rate in the 20s Diminished BS Cardio Rate: regular rate Rhythm: regular rhythm Peripheral pulses: Peripheral pulses 2+ throughout GI Other: +distended Palpation (GI): nontender Back/Spine/Pelvis Thoracic/Lumbar Spine: thoracic and lumbar spine normal to inspection Skin General skin exam: no rashes or lesions noted Neuro General: patient oriented x3, moves all extremities and no meningeal signs Cranial nerves: Yes Equal, round and reactive pupils present Cognition (Neuro): normal cognition Gait exam (Neuro): Normal gait present Extrem Other: Patient with pitting edema extending to the testicles on both legs Course Course Course Narrative: Labs show anemia unchanged from previous, chronic renal disease, hypocalcemia, BNP 148 which is significantly elevated from previous. Also hypocalcemia with 6.8 however albumin is 1.8 so corrected is probably more normalized. Troponin 28. No ischemic changes on EKG or reports of chest pain to suggest ACS. Reevaluation(s) Reevaluation #1: [id number]-Spoke to Dr. heck who accepted admission Consultations Consultation #1: Spoke to Dr. Sanchez from Nephrology. Recommended Lasix IV 120 mg Q 8 hours, metolazone 5 mg once daily, continue Aldactone 25 mg daily, calcitriol 1.25 mcg Wednesday and Wednesday. Requesting additional labs for PTH, ionized calcium, and phospohorus. Will see patient as consult. Will speak to Medicine for admission Medications Administered Discontinued Medications Generic Name Dose Route Start Last Admin Trade Name Freq PRN Reason Stop Dose Admin Furosemide 120 mg 06/26/22 11:19 06/26/22 11:31 Furosemide 100 Mg/10 Ml Vial IVPUSH 06/26/22 11:20 120 mg ONCE ONE Administration Protocol Metolazone 5 mg 06/26/22 11:19 06/26/22 13:36 Metolazone 5 Mg Tablet PO 06/26/22 11:20 5 mg ONCE ONE Administration Medical Decision Making Medical Decision Making MDM Narrative: 66-year-old male w/ history of nephrotic syndrome, CKD, HLD, HTN, hypothyroidism on 80mg BID torsemide/metolazone/aldactone here with several weeks of increasing swelling LE/UE/testicles/abdomen, SOB, wt gain. Will check labs, EKG, CXR, COVID test. Exam consistent with anasarca, tachypnea with minimal exertion, anticipate admission Independent interpretation of EKG, rhythm strip, radiology study: Independent interp EKG,rhythm strip, radiology study I performed an independent interpretation of the: EKG and Plain X-Ray (IMPRESSION: Mild blunting of the costophrenic angles bilaterally, left greater than right is similar to the previous study and could represent pleural scarring. No acute cardiopulmonary process.) My interpretation is normal sinus rhythm with rate of 91, normal GA, normal QRS Discharge Plan Discharge Clinical Impression: Acute on chronic kidney failure, Nephrotic syndrome Patient Disposition: Admitted As Inpatient
[2022-06-26 09:53] LABS: MANUAL DIFF FLAG NO
[2022-06-26 10:00] LABS: Basophils Percent Auto 0.5 % (0-2); Eosinophils Absolute Auto 0.3 X10*3/uL (0.0-0.4); Eosinophils Percent Auto 3.6 % (0-4); Hematocrit 27.8 % (42.0-52.0); Hemoglobin 9.3 g/dl (14.0-18.0); Imm Gran Abs Auto 0.04 X10*3/uL (0.00-0.03); Imm Gran Pct Auto 0.5 % (0.0-0.4); Lymphocytes Absolute Auto 1.5 X10*3/uL (1.2-4.9); Lymphocytes Percent Auto 18.4 % (20-40); Mean Corpuscular HGB Conc 33.5 g/dl (31.0-36.0); Mean Corpuscular Hemoglobin 32.1 pg (27.0-33.0); Mean Corpuscular Volume 95.9 fL (80.0-98.0); Mean Platelet Volume 9.6 fL (9.4-12.4); Monocytes Absolute Auto 0.7 X10*3/uL (0.1-1.2); Monocytes Percent Auto 8.6 % (2-11); Neutrophils Absolute Auto 5.6 x10*3/uL (2.0-8.3); Neutrophils Percent Auto 68.4 % (45-73); Platelet Count 392 X10*3/uL (160-400); Red Cell Distribution Width 14.1 % (11.0-16.0); White Blood Count 8.1 X10*3/uL (4.8-10.8)
[2022-06-26 10:07] LABS: INTERNATIONAL NORM RATIO 0.9 (0.9-1.1); Prothrombin Time 10.8 SEC (10.0-13.1)
[2022-06-26 10:19] LABS: COVID-19 Test Negative (Negative); IDNOW Serial# 16C4AD1C
[2022-06-26 10:26] LABS: B Type Natriuretic Peptide 148 pg/mL (<100)
[2022-06-26 10:44] LABS: Alanine Aminotransferase 13 U/L (0-40); Albumin Level 1.8 g/dL (3.5-5.0); Alkaline Phosphatase 66 U/L (39-117); Anion Gap 11 (12-20); Aspartate Amino Transferase 17 U/L (5-37); Bilirubin Total < 0.2 mg/dL (0.0-1.0); Blood Urea Nitrogen 32 mg/dL (9-16); Calcium 6.8 mg/dL (8.4-10.2); Carbon Dioxide 18 mmol/L (22-29); Chloride 113 mmol/L (96-108); Creatinine Clr Calc Pharmacy 21.2; Estimated Glomerular Filt Rate 12; Glucose Random 96 mg/dL (60-115); Magnesium 2.3 mg/dL (1.6-2.6); Potassium 3.7 mmol/L (3.3-5.1); Sodium 138 mmol/L (135-145); Total Protein 4.1 g/dL (6.5-8.0)
--- NOTE | 2022-06-26 11:29 | PHA.MEDREC ---
Pharmacy Consult ? Medication Reconciliation Pharmacy has completed the medication reconciliation. Patient had no idea what he was on, told me to call ina.
[2022-06-26] MEDS: Furosemide 100 MG/10 ML VIAL 120 MG IVPUSH ×2 (11:31→21:48)
[2022-06-26 12:30] LABS: Phosphorus 3.9 mg/dL (2.7-4.5)
[2022-06-26] MEDS: metOLazone 5 MG TABLET PO (13:36)
--- NOTE | 2022-06-26 14:52 | P.HPHOSP_ITS ---
History of Present Illness Date of Service: 06/26/22 Attending physician on admission: Gaye Neves Chief Complaint: Shortness of breath/generalized edema 66-year-old gentleman with past medical history significant for type 2 diabetes mellitus, primary membranous disease with nephrotic syndrome, hyperlipidemia, hypertension, hypo thyroidism, congestive heart failure presented to [facility] with worsening shortness of breath worse with exertion improved with rest and sitting of few weeks duration, associated with generalized edema, patient dose of diuretics were uptitrated with no improvement in his symptoms or swelling therefore presented to emergency room, patient denies associated fever chills, denies chest pain, no palpitations, no orthopnea, no PND, on arrival to ED patient noted to be tachypneic, tachycardic stable blood pressures with normal temperature finger oximetry 100% on room air, chest x-ray showed no acute cardiopulmonary process patient was noted to have generalized anasarca was treated with IV Lasix 120 mg and metolazone case was discussed with second watch sergeant Dr. Sanchez she recommended to admit patient for continued intravenous diuretics. Review of Systems Review of Systems: General no headache no dizziness ,+ LH,no fever chills, generalized edema. CVS no chest pain, no palpitation. Respiratory no cough no sputum production , shortness of breath with exertion Gastrointestinal no nausea no vomiting, no abdominal pain Musculoskeletal no pain Skin no rash Yes all other systems are reviewed and are negative [facility] Medical History Acute hypokalemia Acute on chronic renal failure Anasarca associated with disorder of kidney Anasarca associated with disorder of kidney Aortic stenosis CHF (congestive heart failure), NYHA class I CKD (chronic kidney disease) stage 3, GFR 30-59 ml/min Congestive heart failure Congestive heart failure Diabetes 1.5, managed as type 2 Diverticulosis Hiatal hernia History of small bowel obstruction Hyperlipidemia Hypertension 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 Social History Household Members: None Housing: Apartment Do you presently have visiting nurse or other home services: No Unable to assess alcohol history related to: Unknown Alcohol intake: former Patient Tobacco Use Status: Former Tobacco user Smoked in Last 30 Days: No Second Hand Smoke Exposure: No Use of substances other than those prescribed or required for medical reasons: No Advance Directives: No Advance Directives Information Provided: No Advance Directives Date on File: 05/01/20 service: No Current occupational status: unemployed and disabled Meds Allergies Allergy/AdvReac Type Severity Reaction Status Date / Time Penicillins Allergy Unknown UNKWN Verified 06/26/22 08:55 Active Medications: Current Medications Acetaminophen (Acetaminophen 325 Mg Tablet) 650 mg PO Q6H PRN PRN Reason: Pain, Mild (Pain Scale 1-3) Calcitriol (Calcitriol 0.25 Mcg Capsule) 1.25 mcg PO [id number] ROSALIA Furosemide (Furosemide 100 Mg/10 Ml Vial) 120 mg IVPUSH Q8H ROSALIA; Protocol Melatonin (Melatonin 3 Mg Tablet) 3 mg PO BEDTIME PRN PRN Reason: Insomnia Metolazone (Metolazone 5 Mg Tablet) 5 mg PO QAM ROSALIA Ondansetron HCl (Ondansetron Hcl 4 Mg/2 Ml Vial) 4 mg IVPUSH Q8H PRN PRN Reason: Nausea and Vomiting Pharmacy Consult (Consult Rx Perform Med Rec) 1 each MISCELLANE ONCE PRN PRN Reason: Consult order Sodium Chloride (0.9 % Sodium Chloride Flush 3 Ml Syringe) 3 ml IVFLUSH QSHIFT ROSALIA Spironolactone (Spironolactone 25 Mg Tablet) 25 mg PO DAILY ROSALIA; Protocol Home Medications Medication Instructions Recorded Confirmed Last Taken Type levothyroxine 75 mcg tablet 75 mcg PO DAILY 06/27/20 06/26/22 12/28/21 History atorvastatin 40 mg tablet 40 mg PO DAILY 02/10/22 06/26/22 Unknown History lisinopril 2.5 mg tablet 2.5 mg PO DAILY 02/10/22 06/26/22 Unknown History metolazone 2.5 mg tablet 2.5 mg PO DAILY 02/10/22 06/26/22 Unknown History spironolactone 25 mg tablet 25 mg PO DAILY 02/10/22 06/26/22 Unknown History sitagliptin phosphate 100 mg 1 tab PO DAILY 02/27/22 06/26/22 Unknown History tablet (Umanguvgrecia) metformin 500 mg tablet,extended 1,000 mg PO BID 05/04/22 06/26/22 Unknown History release 24 hr torsemide 20 mg tablet 40 mg PO BID 05/04/22 06/26/22 Unknown History Physical Exam Vital Signs and Narrative: Vital Signs: Last Vital Signs Temp 97.3 F 06/26/22 14:51 Pulse 74 06/26/22 14:51 Resp 16 06/26/22 14:51 BP 120/73 06/26/22 14:51 Pulse Ox 100 06/26/22 14:51 O2 Del Method 06/26/22 14:51 BMI result Body Mass Index 40.8 Const: Other: General? awake alert x3, no acute distress.? Neck? supple, no JVD. CVS? regular rate rhythm, systolic murmur Respiratory lungs clear to auscultation, no respiratory distress, no crackles, no wheeze, no rhonchi. Gastrointestinal abdomen soft, obese, nontender, abdominal wall edema, bowel sounds audible, no guarding , no rigidity. Extremities?? generalized edema both upper and lower extremities Neuro nonfocal Skin no rash psych appropriate affect Results Labs CBC and Chem 7: 06/26/22 09:46 06/26/22 09:46 Labs: Laboratory Results - last 24 hr 06/26/22 06/26/22 06/26/22 09:46 09:46 09:46 MCV 95.9 MCH 32.1 MCHC 33.5 RDW 14.1 Plt Count 392 MPV 9.6 Immature Gran % (Auto) 0.5 H Neut % (Auto) 68.4 Lymph % (Auto) 18.4 L [place] % (Auto) 8.6 Eos % (Auto) 3.6 Baso % (Auto) 0.5 Lymph # (Auto) 1.5 [place] # (Auto) 0.7 Eos # (Auto) 0.3 Baso # (Auto) 0.0 Abs Immat Gran (auto) 0.04 H Absolute Neuts (auto) 5.6 Absolute Nucleated RBC 0.000 Nucleated RBC % (auto) 0.0 PT INR Anion Gap 11 L Estim Creat Clear Calc 21.2 Estimated GFR 12 Random Glucose 96 Calcium 6.8 L D Ionized Calcium Phosphorus 3.9 Magnesium 2.3 Total Bilirubin < 0.2 AST 17 ALT 13 Alkaline Phosphatase 66 Troponin I High Sens B-Natriuretic Peptide 148 H Total Protein 4.1 L Albumin 1.8 L COVID-19 (C[facility]US) COVID-19 Clin Com 06/26/22 06/26/22 06/26/22 09:46 09:46 09:46 MCV MCH MCHC RDW Plt Count MPV Immature Gran % (Auto) Neut % (Auto) Lymph % (Auto) [place] % (Auto) Eos % (Auto) Baso % (Auto) Lymph # (Auto) [place] # (Auto) Eos # (Auto) Baso # (Auto) Abs Immat Gran (auto) Absolute Neuts (auto) Absolute Nucleated RBC Nucleated RBC % (auto) PT 10.8 INR 0.9 Anion Gap Estim Creat Clear Calc Estimated GFR Random Glucose Calcium Ionized Calcium Phosphorus Magnesium Cancelled Total Bilirubin AST ALT Alkaline Phosphatase Troponin I High Sens B-Natriuretic Peptide Total Protein Albumin COVID-19 (C[facility]US) Negative COVID-19 Clin Com See Note 06/26/22 06/26/22 09:46 09:46 MCV MCH MCHC RDW Plt Count MPV Immature Gran % (Auto) Neut % (Auto) Lymph % (Auto) [place] % (Auto) Eos % (Auto) Baso % (Auto) Lymph # (Auto) [place] # (Auto) Eos # (Auto) Baso # (Auto) Abs Immat Gran (auto) Absolute Neuts (auto) Absolute Nucleated RBC Nucleated RBC % (auto) PT INR Anion Gap Estim Creat Clear Calc Estimated GFR Random Glucose Calcium Ionized Calcium Cancelled Phosphorus Magnesium Total Bilirubin AST ALT Alkaline Phosphatase Troponin I High Sens 28.0 B-Natriuretic Peptide Total Protein Albumin COVID-19 (CYRUS) COVID-19 Clin Com Imaging Radiologist's Impressions: Impressions Chest X-Ray 06/26/22 09:32 IMPRESSION: Mild blunting of the costophrenic angles bilaterally, left greater than right is similar to the previous study and could represent pleural scarring. No acute cardiopulmonary process. Assessment and Plan (1) Nephrotic syndrome: Status: Acute (2) Aortic stenosis: Status: Acute Plan 66 year old male with a history of primary membranous nephropathy presents with overall body swelling and weight gain has been taking Aldactone and Torsemide?dose recently uptitrated with no improvement in symptoms of shortness of breath or swelling therefore presented to [facility], renal function is close to baseline with BUN of 32, and creatinine of 4.76, low calcium of 6.8 , and albumin of 1.8 , troponin of 28 , BNP of 148, chest x-ray showed no cardiopulmonary disease patient will be admitted with a diagnosis of generalized anasarca related to nephrotic syndrome Anasarca with hx of? Biopsy-proven membranous glomerular nephritis Will admit to medical floor ED provider discussed with Dr. 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 Lasix to treat? generalized edema related to nephrotic syndrome? Time Spent With Patient Time: Total time managing care of this patient today ____ minutes. Quality Stroke Does the patient have a stroke diagnosis?: No VTE Prior VTE?: No VTE Risk Level:: Medical - moderate - high VTE Device Contraindication: Treatment Not Indicated VTE Drug Contraindication: N/A - Med Ordered
[2022-06-26] MEDS: 0.9 % Sodium Chloride Flush 3 ML SYRINGE IVFLUSH ×2 (15:07→21:48)
[2022-06-26] MEDS: Spironolactone 25 MG TABLET PO (15:07)
[2022-06-26 16:48] LABS: Glucose, Whole Blood 76 mg/dL (60-115)
[2022-06-26] MEDS: Heparin Sodium,Porcine 5,000 UNIT/ML VIAL 5000 UNIT SUBCUT ×2 (16:48→23:17)
--- NOTE | 2022-06-26 17:39 | PM.EVENT ---
Event Note Date of Service: 06/26/22 Event Note: I was called by ER regarding Mr. Thomson and advised admission for anasarca. The pt has CKD due to biopsy proven membranous GN with severe nephrotic syndrome with albumin now 1.8. His GFR is also quite low. He has been refractory to high dose torsemide and low dose metolazone and spironolactone. His creat is 4.5 or so, a bit worse than in February. 1. decompensated nephrosis: anasarca 2. Membranous GN, CKD stage 4 3. Diuretic refractory REcommend: IV furosemide 120 q 8 hrs with continue spironolactone Increase metolazone to 5 mg daily We may need to add albumin to enhance diuresis-will assess in am response to current measures Continue lisinopril as long as BP is tolerating it Monitor K and creat daily Full note to follow in am Time Spent With Patient Time: Total time managing care of this patient today ____ minutes.
[2022-06-26 21:19] LABS: Glucose, Whole Blood 132 mg/dL (60-115)
[2022-06-27 04:00] VITALS: BP 124/68; PULSE 68; RESP 20; TEMP 36.6; O2SAT 98
[2022-06-27] MEDS: Furosemide 100 MG/10 ML VIAL 120 MG IVPUSH ×3 (04:00→19:36)
[2022-06-27] MEDS: Levothyroxine Sodium 75 MCG TABLET PO (06:16)
[2022-06-27] MEDS: Heparin Sodium,Porcine 5,000 UNIT/ML VIAL 5000 UNIT SUBCUT ×3 (06:18→22:47)
[2022-06-27 07:21] LABS: Anion Gap 11 (12-20); Blood Urea Nitrogen 31 mg/dL (9-16); Carbon Dioxide 16 mmol/L (22-29); Chloride 115 mmol/L (96-108); Creatinine Clr Calc Pharmacy 20.6; Estimated Glomerular Filt Rate 12; Glucose Random 83 mg/dL (60-115); Potassium 3.9 mmol/L (3.3-5.1); Sodium 138 mmol/L (135-145)
[2022-06-27 07:28] VITALS: BP 138/70; PULSE 79; RESP 17; TEMP 36.9; O2SAT 99
[2022-06-27 07:32] LABS: Glucose, Whole Blood 85 mg/dL (60-115)
[2022-06-27] MEDS: SITagliptin Phosphate 100 MG TABLET PO (08:51)
[2022-06-27] MEDS: lisinopriL 2.5 MG TABLET PO (08:51)
[2022-06-27] MEDS: Spironolactone 25 MG TABLET PO (08:51)
[2022-06-27] MEDS: Atorvastatin Calcium 40 MG TABLET PO (08:51)
[2022-06-27] MEDS: metOLazone 5 MG TABLET PO (08:51)
[2022-06-27] MEDS: 0.9 % Sodium Chloride Flush 3 ML SYRINGE IVFLUSH ×3 (08:51→19:36)
--- NOTE | 2022-06-27 09:27 | P.PNIM_ITS ---
Subjective Subjective Date of Service: 06/27/22 Review of Systems Follow-up anasarca Feeling better, less swollen, diuresing well Physical Exam Vital Signs: Vital Signs: Last Vital Signs Temp 98.5 F 06/27/22 07:28 Pulse 79 06/27/22 07:28 Resp 17 06/27/22 07:28 BP 138/70 06/27/22 07:28 Pulse Ox 99 06/27/22 07:28 O2 Del Method 06/27/22 07:28 BMI result Body Mass Index 40.1 Appearing in no acute distress lung sounds are clear to auscultation heart regular rate rhythm, clear S1, S2 positive bowel sounds, abdomen is soft, nontender neuro patient is alert x3, no focal deficits Generalized anasarca, tense +2-3 3 lower extremity edema bilaterally Objective Data Active Medications Acetaminophen (Acetaminophen 325 Mg Tablet) 650 mg PO Q6H PRN PRN Reason: Pain, Mild (Pain Scale 1-3) Atorvastatin Calcium (Atorvastatin Calcium 40 Mg Tablet) 40 mg PO DAILY [facility] Last Admin: 06/27/22 08:51 Dose: 40 mg Documented By: VALERIE Calcitriol (Calcitriol 0.25 Mcg Capsule) 1.25 mcg PO MoWeFr@0900 [facility] Dextrose (Dextrose 50 % 25 Gm/50 Ml Syringe) 25 gm IVPUSH Q15M PRN; Protocol PRN Reason: per Hypoglycemia Standing Ord. Furosemide (Furosemide 100 Mg/10 Ml Vial) 120 mg IVPUSH Q8H [facility]; Protocol Last Admin: 06/27/22 04:00 Dose: 120 mg Documented By: OMID Glucose (Glucose Gel 15 Gm Gel..Gram.) 15 gm PO Q15M PRN; Protocol PRN Reason: per Hypoglycemia Standing Ord. Heparin Sodium (Porcine) (Heparin Sodium,Porcine 5,000 Unit/Ml Vial) 5,000 unit SUBCUT Q8H [facility] Last Admin: 06/27/22 06:18 Dose: 5,000 unit Documented By: OMID Insulin Human Lispro (Insulin Lispro 100 Unit/Ml 3 Ml Vial) 0 unit SUBCUT QIDACHS [facility]; Protocol Last Admin: 06/27/22 07:38 Dose: Not Given Documented By: VALERIE Non-Admin Reason: No Insulin Coverage Levothyroxine Sodium (Levothyroxine Sodium 75 Mcg Tablet) 75 mcg PO DAILY@0600 [facility] Last Admin: 06/27/22 06:16 Dose: 75 mcg Documented By: OMID Lisinopril (Lisinopril 2.5 Mg Tablet) 2.5 mg PO DAILY [facility]; Protocol Last Admin: 06/27/22 08:51 Dose: 2.5 mg Documented By: VALERIE Melatonin (Melatonin 3 Mg Tablet) 3 mg PO BEDTIME PRN PRN Reason: Insomnia Metolazone (Metolazone 5 Mg Tablet) 5 mg PO DAILY [facility] Last Admin: 06/27/22 08:51 Dose: 5 mg Documented By: VALERIE Ondansetron HCl (Ondansetron Hcl 4 Mg/2 Ml Vial) 4 mg IVPUSH Q8H PRN PRN Reason: Nausea and Vomiting Pharmacy Consult (Consult Rx Perform Med Rec) 1 each MISCELLANE ONCE PRN PRN Reason: Consult order Sitagliptin Phosphate (Sitagliptin Phosphate 100 Mg Tablet) 100 mg PO DAILY [facility] Last Admin: 06/27/22 08:51 Dose: 100 mg Documented By: VALERIE Sodium Chloride (0.9 % Sodium Chloride Flush 3 Ml Syringe) 3 ml IVFLUSH QSHIFT [facility] Last Admin: 06/27/22 08:51 Dose: 3 ml Documented By: VALERIE Spironolactone (Spironolactone 25 Mg Tablet) 25 mg PO DAILY [facility]; Protocol Last Admin: 06/27/22 08:51 Dose: 25 mg Documented By: VALERIE Labs CBC & Chem 7: 06/26/22 09:46 06/27/22 06:22 Labs: Laboratory Results - last 24 hr 06/26/22 06/26/22 06/26/22 09:46 09:46 09:46 MCV 95.9 MCH 32.1 MCHC 33.5 RDW 14.1 Plt Count 392 MPV 9.6 Immature Gran % (Auto) 0.5 H Neut % (Auto) 68.4 Lymph % (Auto) 18.4 L Larue % (Auto) 8.6 Eos % (Auto) 3.6 Baso % (Auto) 0.5 Lymph # (Auto) 1.5 Larue # (Auto) 0.7 Eos # (Auto) 0.3 Baso # (Auto) 0.0 Abs Immat Gran (auto) 0.04 H Absolute Neuts (auto) 5.6 Absolute Nucleated RBC 0.000 Nucleated RBC % (auto) 0.0 PT INR Anion Gap 11 L Estim Creat Clear Calc 21.2 Estimated GFR 12 POC Glucose Random Glucose 96 Calcium 6.8 L D Ionized Calcium Phosphorus 3.9 Magnesium 2.3 Total Bilirubin < 0.2 AST 17 ALT 13 Alkaline Phosphatase 66 Troponin I High Sens B-Natriuretic Peptide 148 H Total Protein 4.1 L Albumin 1.8 L COVID-19 ([facility]) COVID-19 Clin Com 06/26/22 06/26/22 06/26/22 09:46 09:46 09:46 MCV MCH MCHC RDW Plt Count MPV Immature Gran % (Auto) Neut % (Auto) Lymph % (Auto) Larue % (Auto) Eos % (Auto) Baso % (Auto) Lymph # (Auto) Larue # (Auto) Eos # (Auto) Baso # (Auto) Abs Immat Gran (auto) Absolute Neuts (auto) Absolute Nucleated RBC Nucleated RBC % (auto) PT 10.8 INR 0.9 Anion Gap Estim Creat Clear Calc Estimated GFR POC Glucose Random Glucose Calcium Ionized Calcium Phosphorus Magnesium Cancelled Total Bilirubin AST ALT Alkaline Phosphatase Troponin I High Sens B-Natriuretic Peptide Total Protein Albumin COVID-19 ([facility]) Negative COVID-19 aaTag Com See Note 06/26/22 06/26/22 06/26/22 09:46 09:46 16:44 MCV MCH MCHC RDW Plt Count MPV Immature Gran % (Auto) Neut % (Auto) Lymph % (Auto) Larue % (Auto) Eos % (Auto) Baso % (Auto) Lymph # (Auto) Larue # (Auto) Eos # (Auto) Baso # (Auto) Abs Immat Gran (auto) Absolute Neuts (auto) Absolute Nucleated RBC Nucleated RBC % (auto) PT INR Anion Gap Estim Creat Clear Calc Estimated GFR POC Glucose 76 Random Glucose Calcium Ionized Calcium Cancelled Phosphorus Magnesium Total Bilirubin AST ALT Alkaline Phosphatase Troponin I High Sens 28.0 B-Natriuretic Peptide Total Protein Albumin COVID-19 ([facility]) COVID-19 Clin Com 06/26/22 06/27/22 06/27/22 21:15 06:22 07:27 MCV MCH MCHC RDW Plt Count MPV Immature Gran % (Auto) Neut % (Auto) Lymph % (Auto) Larue % (Auto) Eos % (Auto) Baso % (Auto) Lymph # (Auto) Larue # (Auto) Eos # (Auto) Baso # (Auto) Abs Immat Gran (auto) Absolute Neuts (auto) Absolute Nucleated RBC Nucleated RBC % (auto) PT INR Anion Gap 11 L Estim Creat Clear Calc 20.6 Estimated GFR 12 POC Glucose 132 H 85 Random Glucose 83 Calcium 7.0 L Ionized Calcium Phosphorus Magnesium Total Bilirubin AST ALT Alkaline Phosphatase Troponin I High Sens B-Natriuretic Peptide Total Protein Albumin COVID-19 ([facility]) COVID-19 Clin Com Assessment and Plan (1) Acute on chronic kidney failure: Status: Acute (2) Nephrotic syndrome: Status: Acute Plan 66 year old male with a history of primary membranous nephropathy presents with overall body swelling and weight gain? has been taking Aldactone and Torsemide?dose recently uptitrated with no improvement in symptoms of shortness of breath or swelling therefore presented to [facility], renal function is close to baseline with BUN of 32, and creatinine of 4.76, low calcium of 6.8 , and albumin of 1.8 , troponin of 28 , BNP of 148, chest x-ray showed no cardiopulmonary disease patient will be admitted with a diagnosis of generalized anasarca related to nephrotic syndrome Anasarca with hx of? 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 Levin Full code Continue hospitalization for treatment of anasarca requiring IV diuretics Time Spent With Patient Time: Total time managing care of this patient today ____ minutes. Quality Stroke Does the patient have a stroke diagnosis?: No VTE Prior VTE?: No VTE Risk Level:: Medical - moderate - high VTE Device Contraindication: Treatment Not Indicated VTE Drug Contraindication: N/A - Med Ordered
[2022-06-27] MEDS: Albumin Human 25 % 100 ML IV ×2 (10:34→11:57)
[2022-06-27 11:46] VITALS: BP 126/59; PULSE 80; RESP 17; TEMP 36.7; O2SAT 95
[2022-06-27 11:47] LABS: Glucose, Whole Blood 108 mg/dL (60-115)
--- NOTE | 2022-06-27 12:01 | PM.CNNEP ---
History of Present Illness Reason for Consult Consult date: 06/27/22 Reason for consult: Advanced CKD, nephrotic syndrome and anasarca Chief Complaint Chief complaint: Anasarca History of Present Illness Narrative: Mr. 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 He has gained a significant amount of fluid weight and had some HOPSON so presented for admission. He also has underlying Type II DM, HTN and severe aortic stenosis. Yesterday, we started iV lasix at 120 q 8 hrs and metolazone 5 mg daily. He has had improvement in diuresis by his report though I/O do not document that. He is less dyspneic and denies orthopnea or chest pain. His creat is 4.5 and eGFR is 12 cc/min. He has no uremic symptoms of anorexia, nausea or vomiting. He is followed by Dr. Ribeiro. He is currently on no immunosuppressive regimen for his membranous GN. His albumin is 1.8. Review of Systems Review of Systems SOB no chest pain HOPSON edema weight gain no anorexia, n, vomiting no melena or hematochezia no abd pain some back pain PMFSH Past Medical History Medical History Acute hypokalemia Acute on chronic renal failure Anasarca associated with disorder of kidney Anasarca associated with disorder of kidney Aortic stenosis CHF (congestive heart failure), NYHA class I CKD (chronic kidney disease) stage 3, GFR 30-59 ml/min Congestive heart failure Congestive heart failure Diabetes 1.5, managed as type 2 Diverticulosis Hiatal hernia History of small bowel obstruction Hyperlipidemia Hypertension 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 Social History Social History Household Members: None Housing: Apartment Do you presently have visiting nurse or other home services: No Unable to assess alcohol history related to: Unknown Alcohol intake: former Patient Tobacco Use Status: Former Tobacco user Second Hand Smoke Exposure: No Advance Directives Date on File: 05/01/20 service: No Current occupational status: unemployed and disabled Meds Allergies Allergy/AdvReac Type Severity Reaction Status Date / Time Penicillins Allergy Unknown UNKWN Verified 06/26/22 08:55 Active Medications: Current Medications Acetaminophen (Acetaminophen 325 Mg Tablet) 650 mg PO Q6H PRN PRN Reason: Pain, Mild (Pain Scale 1-3) Atorvastatin Calcium (Atorvastatin Calcium 40 Mg Tablet) 40 mg PO DAILY [facility] Last Admin: 06/27/22 08:51 Dose: 40 mg Calcitriol (Calcitriol 0.25 Mcg Capsule) 1.25 mcg PO MoWeFr@0900 [facility] Dextrose (Dextrose 50 % 25 Gm/50 Ml Syringe) 25 gm IVPUSH Q15M PRN; Protocol PRN Reason: per Hypoglycemia Standing Ord. Furosemide (Furosemide 100 Mg/10 Ml Vial) 120 mg IVPUSH Q8H [facility]; Protocol Last Admin: 06/27/22 04:00 Dose: 120 mg Glucose (Glucose Gel 15 Gm Gel..Gram.) 15 gm PO Q15M PRN; Protocol PRN Reason: per Hypoglycemia Standing Ord. Heparin Sodium (Porcine) (Heparin Sodium,Porcine 5,000 Unit/Ml Vial) 5,000 unit SUBCUT Q8H [facility] Last Admin: 06/27/22 06:18 Dose: 5,000 unit Insulin Human Lispro (Insulin Lispro 100 Unit/Ml 3 Ml Vial) 0 unit SUBCUT QIDACHS [facility]; Protocol Last Admin: 06/27/22 11:52 Dose: Not Given Levothyroxine Sodium (Levothyroxine Sodium 75 Mcg Tablet) 75 mcg PO DAILY@0600 [facility] Last Admin: 06/27/22 06:16 Dose: 75 mcg Lisinopril (Lisinopril 2.5 Mg Tablet) 2.5 mg PO DAILY [facility]; Protocol Last Admin: 06/27/22 08:51 Dose: 2.5 mg Melatonin (Melatonin 3 Mg Tablet) 3 mg PO BEDTIME PRN PRN Reason: Insomnia Metolazone (Metolazone 5 Mg Tablet) 5 mg PO DAILY [facility] Last Admin: 06/27/22 08:51 Dose: 5 mg Ondansetron HCl (Ondansetron Hcl 4 Mg/2 Ml Vial) 4 mg IVPUSH Q8H PRN PRN Reason: Nausea and Vomiting Pharmacy Consult (Consult Rx Perform Med Rec) 1 each MISCELLANE ONCE PRN PRN Reason: Consult order Sitagliptin Phosphate (Sitagliptin Phosphate 100 Mg Tablet) 100 mg PO DAILY [facility] Last Admin: 06/27/22 08:51 Dose: 100 mg Sodium Chloride (0.9 % Sodium Chloride Flush 3 Ml Syringe) 3 ml IVFLUSH QSHIFT [facility] Last Admin: 06/27/22 08:51 Dose: 3 ml Spironolactone (Spironolactone 25 Mg Tablet) 25 mg PO DAILY [facility]; Protocol Last Admin: 06/27/22 08:51 Dose: 25 mg Home Medications Medication Instructions Recorded Confirmed Last Taken Type levothyroxine 75 mcg tablet 75 mcg PO DAILY 06/27/20 06/26/22 12/28/21 History atorvastatin 40 mg tablet 40 mg PO DAILY 02/10/22 06/26/22 Unknown History lisinopril 2.5 mg tablet 2.5 mg PO DAILY 02/10/22 06/26/22 Unknown History metolazone 2.5 mg tablet 2.5 mg PO DAILY 02/10/22 06/26/22 Unknown History spironolactone 25 mg tablet 25 mg PO DAILY 02/10/22 06/26/22 Unknown History sitagliptin phosphate 100 mg 1 tab PO DAILY 02/27/22 06/26/22 Unknown History tablet (Umanguvgrecia) metformin 500 mg tablet,extended 1,000 mg PO BID 05/04/22 06/26/22 Unknown History release 24 hr torsemide 20 mg tablet 40 mg PO BID 05/04/22 06/26/22 Unknown History Physical Exam Vital Signs: Last Vital Signs Temp 98.0 F 06/27/22 11:46 Pulse 80 06/27/22 11:46 Resp 17 06/27/22 11:46 BP 126/59 L 06/27/22 11:46 Pulse Ox 95 06/27/22 11:46 O2 Del Method 06/27/22 11:46 BMI result Body Mass Index 40.1 Results Lab Results Result Diagrams: 06/26/22 09:46 06/27/22 06:22 Lab results: Chemistry 06/26/22 06/27/22 09:46 06:22 Sodium 138 138 Potassium 3.7 3.9 Carbon Dioxide 18 L 16 L BUN 32 H 31 H Creatinine 4.76 H* 4.84 H* Calcium 6.8 L D 7.0 L Phosphorus 3.9 Hematology 06/26/22 09:46 WBC 8.1 Hgb 9.3 L Plt Count 392 Assessment and Plan (1) Nephrotic syndrome: Status: Inactive (2) CKD (chronic kidney disease), stage V: Status: Acute (3) Anemia: Status: Acute (4) Aortic stenosis: Status: Acute (5) Nephrotic syndrome: Status: Acute (6) Anasarca: Status: Acute Plan The pt is a 66 yo obese type II diabetic with severe nephrotic syndrome due to biopsy proven membranous GN and advanced CKD stage 5. His ansaraca has been refractory to outpt high dose diuretics. He is nearing needing to initiate dialysis for issues of volume management. I will review his prior treatment for MGN. At present, I recommend: 1. Maximal loop diuretic: furosemide 120 q 8 hrs 2. Metolazone 5 mg daily 3. Can increase spironolactone to 50 mg daily 4. Monitor K 5. Add albumin infusion tid to increase diuretic effectiveness 6. Nearing ESRD and need to initiate dialysis 7. Check iron stores, B12 and folate levels 8. I will check whether he has been receiving Procrit as outpt 9. Continue lisinopril for now Time Spent With Patient Time: Total time managing care of this patient today ____ minutes. Procedures Date of Service Date of Service: 06/27/22
[2022-06-27 15:19] LABS: Glucose, Whole Blood 117 mg/dL (60-115)
[2022-06-27 15:27] VITALS: BP 128/61; PULSE 82; RESP 17; TEMP 36.9; O2SAT 99
--- NOTE | 2022-06-27 16:05 | MHC.CM.PN ---
PT LIVES ALONE AND IS INDEPENDENT WITH CARE PT USES NO DME AND HAS NO HOME SERVICES PT IS COVID VAX AND BOOSTED HE HAS NO HCP -DECLINES TO COMPLETE ONE PCP: CHACHO HOFFMANN IMM DELIVERED CURRENT DC PLAN IS HOME WITH NO SERVICES PT WILL NEED ASSISTANCE WITH TRANSPORTATION
[2022-06-27 18:56] VITALS: BP 123/67; PULSE 82; RESP 17; TEMP 36.8; O2SAT 98
[2022-06-27 19:17] LABS: Glucose, Whole Blood 130 mg/dL (60-115)
[2022-06-27 23:40] VITALS: BP 120/60; PULSE 79; RESP 16; TEMP 36.9; O2SAT 98
[2022-06-28 03:10] VITALS: BP 124/62; PULSE 74; RESP 18; TEMP 36.9; O2SAT 98
[2022-06-28] MEDS: Furosemide 100 MG/10 ML VIAL 120 MG IVPUSH ×3 (03:13→21:48)
[2022-06-28] MEDS: Levothyroxine Sodium 75 MCG TABLET PO (06:07)
[2022-06-28] MEDS: Heparin Sodium,Porcine 5,000 UNIT/ML VIAL 5000 UNIT SUBCUT ×3 (06:07→21:48)
[2022-06-28 07:52] LABS: Glucose, Whole Blood 88 mg/dL (60-115)
[2022-06-28 07:53] VITALS: BP 128/60; PULSE 77; RESP 17; TEMP 36.8; O2SAT 99
[2022-06-28] MEDS: Albumin Human 25 % 100 ML IV ×3 (08:23→21:48)
[2022-06-28] MEDS: 0.9 % Sodium Chloride Flush 3 ML SYRINGE IVFLUSH ×2 (08:23→18:14)
[2022-06-28] MEDS: lisinopriL 2.5 MG TABLET PO (08:24)
[2022-06-28] MEDS: metOLazone 5 MG TABLET PO (08:24)
[2022-06-28] MEDS: Atorvastatin Calcium 40 MG TABLET PO (08:24)
[2022-06-28] MEDS: Spironolactone 25 MG TABLET 50 MG PO (08:24)
[2022-06-28] MEDS: SITagliptin Phosphate 100 MG TABLET PO (08:24)
[2022-06-28 08:42] LABS: Anion Gap 13 (12-20); Blood Urea Nitrogen 31 mg/dL (9-16); Carbon Dioxide 17 mmol/L (22-29); Chloride 112 mmol/L (96-108); Creatinine Clr Calc Pharmacy 18.7; Estimated Glomerular Filt Rate 11; Glucose Random 82 mg/dL (60-115); Iron 52 mcg/dL (45-160); Percent Iron Saturation 31 % (15-50); Potassium 3.4 mmol/L (3.3-5.1); Sodium 139 mmol/L (135-145); Total Iron Binding Capacity 168 mcg/dL (228-428); Unsaturated Iron Binding 116 ug/dL
[2022-06-28 08:48] LABS: Calcium 7.6 mg/dL (8.4-10.2)
[2022-06-28 09:11] LABS: Folate 8.4 ng/mL (> or = 4.0); Vitamin B12 460 pg/mL (200-900)
--- NOTE | 2022-06-28 10:29 | P.PNIM_ITS ---
Subjective Subjective Date of Service: 06/28/22 Review of Systems Follow-up anasarca Feeling better, less swollen, diuresing well Physical Exam Vital Signs: Vital Signs: Last Vital Signs Temp 98.2 F 06/28/22 07:53 Pulse 77 06/28/22 07:53 Resp 17 06/28/22 07:53 BP 128/60 06/28/22 07:53 Pulse Ox 99 06/28/22 07:53 O2 Del Method 06/28/22 07:53 BMI result Body Mass Index 40.1 Appearing in no acute distress lung sounds are clear to auscultation heart regular rate rhythm, clear S1, S2 positive bowel sounds, abdomen is soft, nontender neuro patient is alert x3, no focal deficits Generalized anasarca Objective Data Active Medications Acetaminophen (Acetaminophen 325 Mg Tablet) 650 mg PO Q6H PRN PRN Reason: Pain, Mild (Pain Scale 1-3) Atorvastatin Calcium (Atorvastatin Calcium 40 Mg Tablet) 40 mg PO DAILY [facility] Last Admin: 06/28/22 08:24 Dose: 40 mg Documented By: VALERIE Calcitriol (Calcitriol 0.25 Mcg Capsule) 1.25 mcg PO MoWeFr@0900 [facility] Dextrose (Dextrose 50 % 25 Gm/50 Ml Syringe) 25 gm IVPUSH Q15M PRN; Protocol PRN Reason: per Hypoglycemia Standing Ord. Furosemide (Furosemide 100 Mg/10 Ml Vial) 120 mg IVPUSH Q8H [facility]; Protocol Last Admin: 06/28/22 03:13 Dose: 120 mg Documented By: OMID Glucose (Glucose Gel 15 Gm Gel..Gram.) 15 gm PO Q15M PRN; Protocol PRN Reason: per Hypoglycemia Standing Ord. Heparin Sodium (Porcine) (Heparin Sodium,Porcine 5,000 Unit/Ml Vial) 5,000 unit SUBCUT Q8H [facility] Last Admin: 06/28/22 06:07 Dose: 5,000 unit Documented By: OMID Albumin Human (Kedbumin 25 %) 100 mls @ 100 mls/hr IV Q6H [facility] Stop: 06/29/22 03:14 Last Infusion: 06/28/22 09:19 Dose: 0 mls/hr Documented By: VALERIE Insulin Human Lispro (Insulin Lispro 100 Unit/Ml 3 Ml Vial) 0 unit SUBCUT QIDACHS [facility]; Protocol Last Admin: 06/28/22 07:55 Dose: Not Given Documented By: VALERIE Non-Admin Reason: No Insulin Coverage Levothyroxine Sodium (Levothyroxine Sodium 75 Mcg Tablet) 75 mcg PO DAILY@0600 [facility] Last Admin: 06/28/22 06:07 Dose: 75 mcg Documented By: OMID Lisinopril (Lisinopril 2.5 Mg Tablet) 2.5 mg PO DAILY [facility]; Protocol Last Admin: 06/28/22 08:24 Dose: 2.5 mg Documented By: VALERIE Melatonin (Melatonin 3 Mg Tablet) 3 mg PO BEDTIME PRN PRN Reason: Insomnia Metolazone (Metolazone 5 Mg Tablet) 5 mg PO DAILY [facility] Last Admin: 06/28/22 08:24 Dose: 5 mg Documented By: VALERIE Ondansetron HCl (Ondansetron Hcl 4 Mg/2 Ml Vial) 4 mg IVPUSH Q8H PRN PRN Reason: Nausea and Vomiting Pharmacy Consult (Consult Rx Perform Med Rec) 1 each MISCELLANE ONCE PRN PRN Reason: Consult order Sitagliptin Phosphate (Sitagliptin Phosphate 100 Mg Tablet) 100 mg PO DAILY [facility] Last Admin: 06/28/22 08:24 Dose: 100 mg Documented By: VALERIE Sodium Chloride (0.9 % Sodium Chloride Flush 3 Ml Syringe) 3 ml IVFLUSH QSHIFT [facility] Last Admin: 06/28/22 08:23 Dose: 3 ml Documented By: VALERIE Spironolactone (Spironolactone 25 Mg Tablet) 50 mg PO DAILY [facility]; Protocol Last Admin: 06/28/22 08:24 Dose: 50 mg Documented By: VALERIE Labs CBC & Chem 7: 06/26/22 09:46 06/28/22 07:59 Labs: Laboratory Results - last 24 hr 06/27/22 06/27/22 06/27/22 11:43 15:15 18:51 Anion Gap Estim Creat Clear Calc Estimated GFR POC Glucose 108 117 H 130 H Random Glucose Calcium Iron TIBC % Saturation Unsat Iron Binding Vitamin B12 Folate 06/28/22 06/28/22 06/28/22 07:47 07:59 07:59 Anion Gap 13 Estim Creat Clear Calc 18.7 Estimated GFR 11 POC Glucose 88 Random Glucose 82 Calcium 7.6 L D Iron 52 TIBC 168 L % Saturation 31 Unsat Iron Binding 116 Vitamin B12 460 Folate 8.4 Assessment and Plan (1) Acute on chronic kidney failure: Status: Acute (2) Nephrotic syndrome: Status: Acute Plan 66 year old male with a history of primary membranous nephropathy presents with overall body swelling and weight gain? has been taking Aldactone and Torsemide?dose recently uptitrated with no improvement in symptoms of shortness of breath or swelling therefore presented to [facility], renal function is close to baseline with BUN of 32, and creatinine of 4.76, low calcium of 6.8 , and albumin of 1.8 , troponin of 28 , BNP of 148, chest x-ray showed no cardiopulmonary disease patient will be admitted with a diagnosis of generalized anasarca related to nephrotic syndrome Anasarca with hx of?Biopsy-proven membranous glomerular nephritis IV Lasix 120 mg q.8 hours, Aldactone increased to 50 mg and metolazone 5 mg daily, albumin t.i.d. 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 BMI 40.1 Discussed importance of weight management as this may be contributing to worsening of other comorbidities DVT prophylaxis with heparin Attendign Dr. Levin Full code Continue hospitalization for treatment of anasarca requiring IV diuretics Time Spent With Patient Time: Total time managing care of this patient today ____ minutes. Quality Stroke Does the patient have a stroke diagnosis?: No VTE Prior VTE?: No VTE Risk Level:: Medical - moderate - high VTE Device Contraindication: Treatment Not Indicated VTE Drug Contraindication: N/A - Med Ordered
[2022-06-28 10:54] VITALS: BP 115/66; PULSE 83; RESP 17; TEMP 36.8; O2SAT 98
[2022-06-28 12:37] LABS: Creatinine, mg/dL 37.36; Protein mg/dL 1000 mg/dL
[2022-06-28 12:52] LABS: Creatinine, 24Hr Urine 1.3 G/Day (1.0-2.0); Protein 24 Hr Urine 35000 mg/Day (<150); Total Volume 24 Hour Urine 3500 mL
--- NOTE | 2022-06-28 13:36 | PM.PNNEP ---
Subjective Subjective Date of Service: 06/28/22 Interval history: Stable overnight Improved diuresis overnight 24 hr urine shows 35 grams of proteinuria!!!! Physical Exam Vital Signs: Vital Signs: Last Vital Signs Temp 98.3 F 06/28/22 10:54 Pulse 83 06/28/22 10:54 Resp 17 06/28/22 10:54 BP 115/66 06/28/22 10:54 Pulse Ox 98 06/28/22 10:54 O2 Del Method 06/28/22 10:54 BMI result Body Mass Index 40.1 Const: Other: Obese man in no distress but anasarcic General: cooperative, healthy appearing, comfortable and no acute distress Limitations: no limitations HEENT: Head: Yes normal to inspection Ears: hearing grossly normal bilaterally Eyes: General: appearance normal, both eyes and all related structures Neck: Neck: Yes normal visual inspection, Yes full ROM and Yes no lymphadenopathy Chest: Chest palpation & inspection: normal inspection of the chest Resp: Other: No rales Cardio: Other: JVD is present RRR No S3 No rub Rate: regular rate Rhythm: regular rhythm Peripheral pulses: Peripheral pulses 2+ throughout GI: Other: +distended, no clear ascites on exam, normal sounds nontender Palpation (GI): nontender Skin: General skin exam: no rashes or lesions noted Extrem: Other: Patient with pitting edema extending to the testicles on both legs Objective Data Labs CBC & Chem 7: 06/26/22 09:46 06/28/22 07:59 Labs: Laboratory Results - last 24 hr 06/27/22 06/27/22 06/28/22 15:15 18:51 07:47 Sodium Potassium Chloride Carbon Dioxide Anion Gap BUN Creatinine Estim Creat Clear Calc Estimated GFR POC Glucose 117 H 130 H 88 Random Glucose Calcium Iron TIBC % Saturation Unsat Iron Binding Vitamin B12 Folate Ur Creatinine mg/dL Ur Creatinine 24 Hour Ur Total Protein 24 Hr 06/28/22 06/28/22 06/28/22 07:59 07:59 10:25 Sodium 139 Potassium 3.4 Chloride 112 H Carbon Dioxide 17 L Anion Gap 13 BUN 31 H Creatinine 5.35 H* Estim Creat Clear Calc 18.7 Estimated GFR 11 POC Glucose Random Glucose 82 Calcium 7.6 L D Iron 52 TIBC 168 L % Saturation 31 Unsat Iron Binding 116 Vitamin B12 460 Folate 8.4 Ur Creatinine mg/dL 37.36 Ur Creatinine 24 Hour 1.3 Ur Total Protein 24 Hr 39342 H Procedures Date of Service Date of Service: 06/28/22 Assessment & Plan Assessment and plan (1) CKD (chronic kidney disease), stage V: Status: Acute (2) Nephrotic syndrome: Status: Acute (3) Anasarca: Status: Acute (4) Aortic stenosis: Status: Acute (5) Metabolic acidosis: Status: Acute (6) Anemia: Status: Acute Plan Pt with membranous GN, florid nephrosis, CKD stage 5, anasarca: 24 hr urine pending but total protein back and shows 35 grams!!! But done while getting albumin infusion!! So Likely falsely high due to this Pt diuresing fairly well on high dose diuretics and spironolactone Continue same plan for today Suspect he will need to start dialysis soon to maintain euvolemic even if we can achieve it with diuretics this admission Time Spent With Patient Time: Total time managing care of this patient today ____ minutes. Progress Note: Quality Stroke Does the patient have a stroke diagnosis?: No
[2022-06-28 13:37] LABS: Creatinine Clearance 16.9 mL/min (85-125)
[2022-06-28 15:09] VITALS: BP 129/68; PULSE 81; RESP 17; TEMP 37.1; O2SAT 97
[2022-06-28 15:09] LABS: Glucose, Whole Blood 118 mg/dL (60-115)
[2022-06-28 15:22] LABS: Glucose, Whole Blood 136 mg/dL (60-115)
[2022-06-28 16:39] LABS: Creatinine (CrCl) 5.35 mg/dL (0.5-1.4)
[2022-06-28 19:00] VITALS: BP 122/56; PULSE 81; RESP 17; TEMP 36.9; O2SAT 97
[2022-06-28 19:10] LABS: Glucose, Whole Blood 124 mg/dL (60-115)
[2022-06-28] MEDS: bisacodyL 10 MG SUPP.RECT PR (22:35)
[2022-06-28 23:22] VITALS: BP 133/70; PULSE 71; RESP 18; TEMP 36.9; O2SAT 98
[2022-06-29 03:19] VITALS: BP 148/70; PULSE 72; RESP 16; TEMP 36.9; O2SAT 96
[2022-06-29] MEDS: Levothyroxine Sodium 75 MCG TABLET PO (04:00)
[2022-06-29] MEDS: Furosemide 100 MG/10 ML VIAL 120 MG IVPUSH ×3 (04:00→21:03)
[2022-06-29] MEDS: Albumin Human 25 % 100 ML IV (04:00)
[2022-06-29 06:47] LABS: B Type Natriuretic Peptide 213 pg/mL (<100)
[2022-06-29 07:00] LABS: Anion Gap 10 (12-20); Blood Urea Nitrogen 31 mg/dL (9-16); Calcium 8.3 mg/dL (8.4-10.2); Carbon Dioxide 17 mmol/L (22-29); Chloride 113 mmol/L (96-108); Creatinine Clr Calc Pharmacy 17.3; Estimated Glomerular Filt Rate 10; Glucose Random 83 mg/dL (60-115); Potassium 3.1 mmol/L (3.3-5.1); Sodium 137 mmol/L (135-145)
[2022-06-29 07:22] LABS: Glucose, Whole Blood 93 mg/dL (60-115)
[2022-06-29 07:51] VITALS: BP 137/74; PULSE 82; RESP 20; TEMP 36.7; O2SAT 99
[2022-06-29] MEDS: 0.9 % Sodium Chloride Flush 3 ML SYRINGE IVFLUSH ×3 (09:02→21:04)
[2022-06-29] MEDS: Potassium Chloride ER 20 MEQ TAB.ER.PRT 40 MEQ PO (09:02)
[2022-06-29] MEDS: Heparin Sodium,Porcine 5,000 UNIT/ML VIAL 5000 UNIT SUBCUT ×3 (09:02→23:29)
[2022-06-29] MEDS: Atorvastatin Calcium 40 MG TABLET PO (09:03)
[2022-06-29] MEDS: SITagliptin Phosphate 100 MG TABLET PO (09:03)
[2022-06-29] MEDS: metOLazone 5 MG TABLET PO (09:03)
[2022-06-29] MEDS: lisinopriL 2.5 MG TABLET PO (09:03)
[2022-06-29] MEDS: calcitrioL 0.25 MCG CAPSULE 1.25 MCG PO (09:08)
[2022-06-29] MEDS: Spironolactone 25 MG TABLET 50 MG PO (09:11)
--- NOTE | 2022-06-29 10:07 | HO.PM.IMPN ---
Subjective Subjective Date of Service: 06/29/22 Review of Systems Follow-up anasarca Feeling better, less swollen, diuresing well Physical Exam Vital Signs: Vital Signs: Last Vital Signs Temp 98.0 F 06/29/22 07:51 Pulse 82 06/29/22 07:51 Resp 20 06/29/22 07:51 BP 137/74 06/29/22 07:51 Pulse Ox 99 06/29/22 07:51 O2 Del Method 06/29/22 07:51 BMI result Body Mass Index 40.1 Appearing in no acute distress lung sounds are clear to auscultation heart regular rate rhythm, clear S1, S2 positive bowel sounds, abdomen is soft, nontender, obese neuro patient is alert x3, no focal deficits Objective Data Active Medications Acetaminophen (Acetaminophen 325 Mg Tablet) 650 mg PO Q6H PRN PRN Reason: Pain, Mild (Pain Scale 1-3) Atorvastatin Calcium (Atorvastatin Calcium 40 Mg Tablet) 40 mg PO DAILY [facility] Last Admin: 06/29/22 09:03 Dose: 40 mg Documented By: OLAF Calcitriol (Calcitriol 0.25 Mcg Capsule) 1.25 mcg PO MoWeFr@0900 [facility] Last Admin: 06/29/22 09:08 Dose: 1.25 mcg Documented By: OLAF Dextrose (Dextrose 50 % 25 Gm/50 Ml Syringe) 25 gm IVPUSH Q15M PRN; Protocol PRN Reason: per Hypoglycemia Standing Ord. Furosemide (Furosemide 100 Mg/10 Ml Vial) 120 mg IVPUSH Q8H [facility]; Protocol Last Admin: 06/29/22 04:00 Dose: 120 mg Documented By: LIVIER Glucose (Glucose Gel 15 Gm Gel..Gram.) 15 gm PO Q15M PRN; Protocol PRN Reason: per Hypoglycemia Standing Ord. Heparin Sodium (Porcine) (Heparin Sodium,Porcine 5,000 Unit/Ml Vial) 5,000 unit SUBCUT Q8H [facility] Last Admin: 06/29/22 09:02 Dose: 5,000 unit Documented By: OLAF Insulin Human Lispro (Insulin Lispro 100 Unit/Ml 3 Ml Vial) 0 unit SUBCUT QIDACHS [facility]; Protocol Last Admin: 06/29/22 08:58 Dose: Not Given Documented By: OLAF Non-Admin Reason: No Insulin Coverage Levothyroxine Sodium (Levothyroxine Sodium 75 Mcg Tablet) 75 mcg PO DAILY@0600 [facility] Last Admin: 06/29/22 04:00 Dose: 75 mcg Documented By: LIVIER Lisinopril (Lisinopril 2.5 Mg Tablet) 2.5 mg PO DAILY [facility]; Protocol Last Admin: 06/29/22 09:03 Dose: 2.5 mg Documented By: OLAF Melatonin (Melatonin 3 Mg Tablet) 3 mg PO BEDTIME PRN PRN Reason: Insomnia Metolazone (Metolazone 5 Mg Tablet) 5 mg PO DAILY [facility] Last Admin: 06/29/22 09:03 Dose: 5 mg Documented By: OLAF Ondansetron HCl (Ondansetron Hcl 4 Mg/2 Ml Vial) 4 mg IVPUSH Q8H PRN PRN Reason: Nausea and Vomiting Pharmacy Consult (Consult Rx Perform Med Rec) 1 each MISCELLANE ONCE PRN PRN Reason: Consult order Sitagliptin Phosphate (Sitagliptin Phosphate 100 Mg Tablet) 100 mg PO DAILY [facility] Last Admin: 06/29/22 09:03 Dose: 100 mg Documented By: OLAF Sodium Chloride (0.9 % Sodium Chloride Flush 3 Ml Syringe) 3 ml IVFLUSH QSHIFT [facility] Last Admin: 06/29/22 09:02 Dose: 3 ml Documented By: OLAF Spironolactone (Spironolactone 25 Mg Tablet) 50 mg PO DAILY [facility]; Protocol Last Admin: 06/29/22 09:11 Dose: 50 mg Documented By: OLAF Labs CBC & Chem 7: 06/26/22 09:46 06/29/22 06:00 Labs: Laboratory Results - last 24 hr 06/28/22 06/28/22 06/28/22 10:25 10:51 15:11 Anion Gap Estim Creat Clear Calc Estimated GFR POC Glucose 118 H 136 H Random Glucose Calcium B-Natriuretic Peptide Ur 24 Hour Volume 3500 Ur Creatinine mg/dL 37.36 Ur Creatinine 24 Hour 1.3 Creat Clearance 24 Hr 16.9 L Ur Total Protein 24 Hr 99128 H 06/28/22 06/29/22 06/29/22 18:56 06:00 06:00 Anion Gap 10 L Estim Creat Clear Calc 17.3 Estimated GFR 10 POC Glucose 124 H Random Glucose 83 Calcium 8.3 L D B-Natriuretic Peptide 213 H Ur 24 Hour Volume Ur Creatinine mg/dL Ur Creatinine 24 Hour Creat Clearance 24 Hr Ur Total Protein 24 Hr 06/29/22 07:16 Anion Gap Estim Creat Clear Calc Estimated GFR POC Glucose 93 Random Glucose Calcium B-Natriuretic Peptide Ur 24 Hour Volume Ur Creatinine mg/dL Ur Creatinine 24 Hour Creat Clearance 24 Hr Ur Total Protein 24 Hr Assessment and Plan (1) Acute on chronic kidney failure: Status: Acute (2) Nephrotic syndrome: Status: Acute Plan 66 year old male with a history of primary membranous nephropathy presents with overall body swelling and weight gain? 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 BMI 40.1 Discussed importance of weight management as this may be contributing to worsening of other comorbidities DVT prophylaxis with heparin Attendign Dr. Levin Full code Continue hospitalization for treatment of anasarca requiring IV diuretics Time Spent With Patient Time: Total time managing care of this patient today ____ minutes. Quality Stroke Does the patient have a stroke diagnosis?: No VTE Prior VTE?: No VTE Risk Level:: Medical - moderate - high VTE Device Contraindication: Treatment Not Indicated VTE Drug Contraindication: N/A - Med Ordered
--- NOTE | 2022-06-29 11:08 | P.PNNP_ITS ---
Subjective Subjective Date of Service: 06/29/22 Interval history: Seen and examined, events noted Physical Exam Vital Signs: Vital Signs: Last Vital Signs Temp 98.0 F 06/29/22 07:51 Pulse 82 06/29/22 07:51 Resp 20 06/29/22 07:51 BP 137/74 06/29/22 07:51 Pulse Ox 99 06/29/22 07:51 O2 Del Method 06/29/22 07:51 BMI result Body Mass Index 40.1 Const: Other: Obese man in no distress but anasarcic General: cooperative, healthy appearing, comfortable and no acute distress Limitations: no limitations HEENT: Head: Yes normal to inspection Ears: hearing grossly normal bilat erally Eyes: General: appearance normal, both eyes and all related structures Neck: Neck: Yes normal visual inspection, Yes full ROM and Yes no lymphadenopathy Chest: Chest palpation & inspection: normal inspection of the chest Resp: Other: No rales Cardio: Other: JVD is present RRR No S3 No rub Rate: regular rate Rhythm: regular rhythm Peripheral pulses: Peripheral pulses 2+ throughout GI: Other: +distended, no clear ascites on exam, normal sounds nontender Palpation (GI): nontender Skin: General skin exam: no rashes or lesions noted Extrem: Other: Patient with pitting edema extending to the testicles on both legs Objective Data Labs CBC & Chem 7: 06/26/22 09:46 06/29/22 06:00 Labs: Laboratory Results - last 24 hr 06/28/22 06/28/22 06/28/22 10:25 10:51 15:11 Sodium Potassium Chloride Carbon Dioxide Anion Gap BUN Creatinine 5.35 H* Estim Creat Clear Calc Estimated GFR POC Glucose 118 H 136 H Random Glucose Calcium B-Natriuretic Peptide Ur 24 Hour Volume 3500 Ur Creatinine mg/dL 37.36 Ur Creatinine 24 Hour 1.3 Creat Clearance 24 Hr 16.9 L Ur Total Protein 24 Hr 46089 H 06/28/22 06/29/22 06/29/22 18:56 06:00 06:00 Sodium 137 Potassium 3.1 L Chloride 113 H Carbon Dioxide 17 L Anion Gap 10 L BUN 31 H Creatinine 5.78 H* Estim Creat Clear Calc 17.3 Estimated GFR 10 POC Glucose 124 H Random Glucose 83 Calcium 8.3 L D B-Natriuretic Peptide 213 H Ur 24 Hour Volume Ur Creatinine mg/dL Ur Creatinine 24 Hour Creat Clearance 24 Hr Ur Total Protein 24 Hr 06/29/22 07:16 Sodium Potassium Chloride Carbon Dioxide Anion Gap BUN Creatinine Estim Creat Clear Calc Estimated GFR POC Glucose 93 Random Glucose Calcium B-Natriuretic Peptide Ur 24 Hour Volume Ur Creatinine mg/dL Ur Creatinine 24 Hour Creat Clearance 24 Hr Ur Total Protein 24 Hr Procedures Date of Service Date of Service: 06/29/22 Assessment & Plan Assessment and plan (1) CKD (chronic kidney disease), stage V: Status: Acute (2) Nephrotic syndrome: Status: Acute (3) Anasarca: Status: Acute (4) Aortic stenosis: Status: Acute (5) Metabolic acidosis: Status: Acute (6) Anemia: Status: Acute Plan 1. Severe NSYn d/t MGN non-response to IS but he has been non-compliat---was suppose to get Rituxin as outpt 2. MED on adv CKD:incr Scr with diuresis not unexpected Bsl Scr 3.5-4.0 3. Hypervol: diuresing on IV alb with diuretic regiment---decr swellng/WT 4. Anmeia 5. H/O and per PT was scheduld for TAVR ? when Disc: failing outpt Tx d/t med non-complaince andheading toward HD but lets see if he will respong to IV rituxin and hold off on HD for now and reassess over next several days REC: rituxin 1 gm ordered; cont diuresis --but can swithc IV lasix to po torsemide 100 mg bid; protect RUE ( Left handed); hold off on Pcath and starting HD for now Time Spent With Patient Time: Total time managing care of this patient today ____ minutes. Progress Note: Quality Stroke Does the patient have a stroke diagnosis?: No
[2022-06-29 11:11] VITALS: BP 137/75; PULSE 76; RESP 20; TEMP 36.6; O2SAT 98
[2022-06-29 11:30] LABS: Glucose, Whole Blood 129 mg/dL (60-115)
[2022-06-29 13:22] LABS: HBS Num1 0.02 mIU/mL (0-7.99); HBc Num1 0.03 S/CO (0.00-0.79); HBsAGNum1 0.28 S/CO (0.00-0.99); Hepatitis B Core Antibody Nonreactive (Nonreactive); Hepatitis B Surface Antigen Negative (Negative); ~Hepatitis B Surface Antibody NONREACTIVE (Nonreactive)
[2022-06-29 13:59] LABS: Calcium, Ionized 4.4 mg/dL (4.8-5.6)
[2022-06-29 15:38] LABS: Glucose, Whole Blood 139 mg/dL (60-115)
[2022-06-29 16:00] VITALS: BP 141/67; PULSE 71; RESP 16; TEMP 36.9; O2SAT 98
--- NOTE | 2022-06-29 16:08 | MHC.CM.PN ---
Met with patient this am for DC planning. Patient stated that her does not have services in place. He states that he will not need services at DC. He will need assist with transportation. CM will follow.
[2022-06-29 19:39] VITALS: BP 138/65; PULSE 72; RESP 17; TEMP 36.8; O2SAT 98
[2022-06-29 19:43] LABS: Glucose, Whole Blood 142 mg/dL (60-115)
[2022-06-29 23:26] VITALS: BP 129/69; PULSE 71; RESP 16; TEMP 36.8; O2SAT 98
[2022-06-30 03:45] VITALS: BP 117/61; PULSE 70; RESP 20; TEMP 36.7; O2SAT 96
[2022-06-30] MEDS: Furosemide 100 MG/10 ML VIAL 120 MG IVPUSH (05:06)
[2022-06-30] MEDS: Levothyroxine Sodium 75 MCG TABLET PO (05:06)
[2022-06-30 06:48] LABS: Anion Gap 12 (12-20); Blood Urea Nitrogen 31 mg/dL (9-16); Calcium 9.1 mg/dL (8.4-10.2); Carbon Dioxide 17 mmol/L (22-29); Chloride 112 mmol/L (96-108); Creatinine Clr Calc Pharmacy 17.1; Estimated Glomerular Filt Rate 10; Glucose Random 101 mg/dL (60-115); Potassium 3.3 mmol/L (3.3-5.1); Sodium 138 mmol/L (135-145)
[2022-06-30 07:07] LABS: Glucose, Whole Blood 100 mg/dL (60-115)
[2022-06-30 07:11] VITALS: BP 116/67; PULSE 75; RESP 18; TEMP 36.6; O2SAT 97
[2022-06-30] MEDS: Torsemide 20 MG TABLET 100 MG PO ×2 (09:18→20:15)
[2022-06-30] MEDS: metOLazone 5 MG TABLET PO (09:18)
[2022-06-30] MEDS: Spironolactone 25 MG TABLET 50 MG PO (09:18)
[2022-06-30] MEDS: Atorvastatin Calcium 40 MG TABLET PO (09:18)
[2022-06-30] MEDS: lisinopriL 2.5 MG TABLET PO (09:19)
[2022-06-30] MEDS: 0.9 % Sodium Chloride Flush 3 ML SYRINGE IVFLUSH ×2 (09:19→20:16)
[2022-06-30] MEDS: Heparin Sodium,Porcine 5,000 UNIT/ML VIAL 5000 UNIT SUBCUT ×2 (09:19→16:35)
[2022-06-30] MEDS: SITagliptin Phosphate 100 MG TABLET PO (09:26)
[2022-06-30 09:27] VITALS: BMI 35.5
--- NOTE | 2022-06-30 09:48 | HO.PM.IMPN ---
Subjective Subjective Date of Service: 06/30/22 Review of Systems Follow-up anasarca Feeling better, less swollen, diuresing well Physical Exam Vital Signs: Vital Signs: Last Vital Signs Temp 97.9 F 06/30/22 07:11 Pulse 75 06/30/22 07:11 Resp 18 06/30/22 07:11 BP 116/67 06/30/22 07:11 Pulse Ox 97 06/30/22 07:11 O2 Del Method 06/30/22 07:11 BMI result Body Mass Index 35.5 Objective Data Active Medications Acetaminophen (Acetaminophen 325 Mg Tablet) 650 mg PO Q6H PRN PRN Reason: Pain, Mild (Pain Scale 1-3) Atorvastatin Calcium (Atorvastatin Calcium 40 Mg Tablet) 40 mg PO DAILY [facility] Last Admin: 06/30/22 09:18 Dose: 40 mg Documented By: PAVEL Calcitriol (Calcitriol 0.25 Mcg Capsule) 1.25 mcg PO MoWeFr@0900 [facility] Last Admin: 06/29/22 09:08 Dose: 1.25 mcg Documented By: OLAF Dextrose (Dextrose 50 % 25 Gm/50 Ml Syringe) 25 gm IVPUSH Q15M PRN; Protocol PRN Reason: per Hypoglycemia Standing Ord. Glucose (Glucose Gel 15 Gm Gel..Gram.) 15 gm PO Q15M PRN; Protocol PRN Reason: per Hypoglycemia Standing Ord. Heparin Sodium (Porcine) (Heparin Sodium,Porcine 5,000 Unit/Ml Vial) 5,000 unit SUBCUT Q8H [facility] Last Admin: 06/30/22 09:19 Dose: 5,000 unit Documented By: PAVEL Rituximab 1,000 mg/ Sodium (Chloride) 350 mls @ 0 mls/hr IV .Q0M ONE; Protocol Stop: 06/30/22 10:01 Insulin Human Lispro (Insulin Lispro 100 Unit/Ml 3 Ml Vial) 0 unit SUBCUT QIDACHS [facility]; Protocol Last Admin: 06/30/22 09:20 Dose: Not Given Documented By: PAVEL Non-Admin Reason: No Insulin Coverage Levothyroxine Sodium (Levothyroxine Sodium 75 Mcg Tablet) 75 mcg PO DAILY@0600 [facility] Last Admin: 06/30/22 05:06 Dose: 75 mcg Documented By: DELGADO Lisinopril (Lisinopril 2.5 Mg Tablet) 2.5 mg PO DAILY [facility]; Protocol Last Admin: 06/30/22 09:19 Dose: 2.5 mg Documented By: PAVEL Melatonin (Melatonin 3 Mg Tablet) 3 mg PO BEDTIME PRN PRN Reason: Insomnia Metolazone (Metolazone 5 Mg Tablet) 5 mg PO DAILY [facility] Last Admin: 06/30/22 09:18 Dose: 5 mg Documented By: PAVEL Ondansetron HCl (Ondansetron Hcl 4 Mg/2 Ml Vial) 4 mg IVPUSH Q8H PRN PRN Reason: Nausea and Vomiting Pharmacy Consult (Consult Rx Perform Med Rec) 1 each MISCELLANE ONCE PRN PRN Reason: Consult order Sitagliptin Phosphate (Sitagliptin Phosphate 100 Mg Tablet) 100 mg PO DAILY [facility] Last Admin: 06/30/22 09:26 Dose: 100 mg Documented By: PAVEL Sodium Chloride (0.9 % Sodium Chloride Flush 3 Ml Syringe) 3 ml IVFLUSH QSHIFT [facility] Last Admin: 06/30/22 09:19 Dose: 3 ml Documented By: PAVEL Spironolactone (Spironolactone 25 Mg Tablet) 50 mg PO DAILY [facility]; Protocol Last Admin: 06/30/22 09:18 Dose: 50 mg Documented By: PAVEL Torsemide (Torsemide 20 Mg Tablet) 100 mg PO BID [facility]; Protocol Last Admin: 06/30/22 09:18 Dose: 100 mg Documented By: PAVEL Labs CBC & Chem 7: 06/26/22 09:46 06/30/22 05:50 Labs: Laboratory Results - last 24 hr 06/26/22 06/29/22 06/29/22 13:19 11:13 11:40 Anion Gap Estim Creat Clear Calc Estimated GFR POC Glucose 129 H Random Glucose Calcium Ionized Calcium 4.4 L Hep Bs Antigen Negative Hep Bs Antibody NONREACTIVE Hep B Core Total Ab Nonreactive 06/29/22 06/29/22 06/30/22 15:35 19:39 05:50 Anion Gap 12 Estim Creat Clear Calc 17.1 Estimated GFR 10 POC Glucose 139 H 142 H Random Glucose 101 Calcium 9.1 D Ionized Calcium Hep Bs Antigen Hep Bs Antibody Hep B Core Total Ab 06/30/22 07:04 Anion Gap Estim Creat Clear Calc Estimated GFR POC Glucose 100 Random Glucose Calcium Ionized Calcium Hep Bs Antigen Hep Bs Antibody Hep B Core Total Ab Assessment and Plan (1) Acute on chronic kidney failure: Status: Acute (2) Nephrotic syndrome: Status: Acute Plan 66 year old male with a history of primary membranous nephropathy presents with overall body swelling and weight gain? 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 Improving Diuresed well in conjunction with scheduled albumin Strict intake and output, recent well Daily weights no evidence of acute CHF, elevated BNP due chronic renal disease Nephrology following IV Lasix changed to torsemide 100 mg twice daily, continue Aldactone and metolazone Hypokalemia. 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 BMI 40.1 Discussed importance of weight management as this may be contributing to worsening of other comorbidities DVT prophylaxis with heparin Attendign Dr. Welch Full code Continue hospitalization for treatment of anasarca requiring IV diuretics Time Spent With Patient Time: Total time managing care of this patient today ____ minutes. Quality Stroke Does the patient have a stroke diagnosis?: No VTE Prior VTE?: No VTE Risk Level:: Medical - moderate - high VTE Device Contraindication: Treatment Not Indicated VTE Drug Contraindication: N/A - Med Ordered
--- NOTE | 2022-06-30 11:01 | P.PNNP_ITS ---
Subjective Subjective Date of Service: 06/30/22 Interval history: Seen and examined, events noted Physical Exam Vital Signs: Vital Signs: Last Vital Signs Temp 97.9 F 06/30/22 07:11 Pulse 75 06/30/22 07:11 Resp 18 06/30/22 07:11 BP 116/67 06/30/22 07:11 Pulse Ox 97 06/30/22 07:11 O2 Del Method 06/30/22 07:11 BMI result Body Mass Index 35.5 Const: Other: Obese man in no distress but anasarcic General: cooperative, healthy appearing, comfortable and no acute distress Limitations: no limitations HEENT: Head: Yes normal to inspection Ears: hearing grossly normal bilat erally Eyes: General: appearance normal, both eyes and all related structures Neck: Neck: Yes normal visual inspection, Yes full ROM and Yes no lymphadenopathy Chest: Chest palpation & inspection: normal inspection of the chest Resp: Other: No rales Cardio: Other: JVD is present RRR No S3 No rub Rate: regular rate Rhythm: regular rhythm Peripheral pulses: Peripheral pulses 2+ throughout GI: Other: +distended, no clear ascites on exam, normal sounds nontender Palpation (GI): nontender Skin: General skin exam: no rashes or lesions noted Extrem: Other: Patient with pitting edema extending to the testicles on both legs Objective Data Labs CBC & Chem 7: 06/26/22 09:46 06/30/22 05:50 Labs: Laboratory Results - last 24 hr 06/26/22 06/29/22 06/29/22 13:19 11:13 11:40 Sodium Potassium Chloride Carbon Dioxide Anion Gap BUN Creatinine Estim Creat Clear Calc Estimated GFR POC Glucose 129 H Random Glucose Calcium Ionized Calcium 4.4 L Hep Bs Antigen Negative Hep Bs Antibody NONREACTIVE Hep B Core Total Ab Nonreactive 06/29/22 06/29/22 06/30/22 15:35 19:39 05:50 Sodium 138 Potassium 3.3 Chloride 112 H Carbon Dioxide 17 L Anion Gap 12 BUN 31 H Creatinine 5.83 H* Estim Creat Clear Calc 17.1 Estimated GFR 10 POC Glucose 139 H 142 H Random Glucose 101 Calcium 9.1 D Ionized Calcium Hep Bs Antigen Hep Bs Antibody Hep B Core Total Ab 06/30/22 07:04 Sodium Potassium Chloride Carbon Dioxide Anion Gap BUN Creatinine Estim Creat Clear Calc Estimated GFR POC Glucose 100 Random Glucose Calcium Ionized Calcium Hep Bs Antigen Hep Bs Antibody Hep B Core Total Ab Procedures Date of Service Date of Service: 06/30/22 Assessment & Plan Assessment and plan (1) CKD (chronic kidney disease), stage V: Status: Acute (2) Nephrotic syndrome: Status: Acute (3) Anasarca: Status: Acute (4) Aortic stenosis: Status: Acute (5) Metabolic acidosis: Status: Acute (6) Anemia: Status: Acute Plan 1. Severe NSYn d/t MGN non-response to IS but he has been non-compliant---was suppose to get Rituxin as outpt 2. MED on adv CKD:incr Scr with diuresis not unexpected Bsl Scr 3.5-4.0 3. Hypervol: diuresing on IV alb with diuretic regiment---decr swellng/WT 4. Anmeia 5. H/O and per PT was scheduld for TAVR ? when Disc: failing outpt Tx d/t med non-complaince and heading toward HD but lets see if he will respond to IV rituxin and hold off on HD for now and reassess over next several days REC: rituxin 1 gm ordered; cont diuresis -- po torsemide 100 mg bid; protect RUE ( Left handed); hold off on Pcath and starting HD for now; repalce K Time Spent With Patient Time: Total time managing care of this patient today ____ minutes. Progress Note: Quality Stroke Does the patient have a stroke diagnosis?: No
[2022-06-30 11:14] LABS: Glucose, Whole Blood 198 mg/dL (60-115)
[2022-06-30 11:30] VITALS: BP 125/68; PULSE 76; RESP 20; TEMP 36.7; O2SAT 98
[2022-06-30] MEDS: Insulin Lispro 100 UNIT/ML 3 ML VIAL SUBCUT ×2 (11:43→16:34)
[2022-06-30 13:34] LABS: Proteinase 3 PR3 Antibodies <1.0 AI
[2022-06-30 15:13] LABS: Calcium (PTHI) 6.7 mg/dL (8.6-10.3); PTHI 80 pg/mL (16-77)
[2022-06-30 15:32] VITALS: BP 124/65; PULSE 89; RESP 18; TEMP 37.1; O2SAT 97
[2022-06-30 15:45] LABS: Glucose, Whole Blood 161 mg/dL (60-115)
[2022-06-30 19:39] VITALS: BP 112/71; PULSE 76; RESP 18; TEMP 37; O2SAT 97
[2022-06-30 19:53] LABS: Glucose, Whole Blood 132 mg/dL (60-115)
[2022-07-01] VITALS: BP 132/67; PULSE 89; RESP 18; TEMP 37; O2SAT 98
[2022-07-01] MEDS: Heparin Sodium,Porcine 5,000 UNIT/ML VIAL 5000 UNIT SUBCUT ×3 (00:01→16:29)
[2022-07-01] MEDS: Levothyroxine Sodium 75 MCG TABLET PO (05:51)
[2022-07-01 06:54] LABS: Anion Gap 17 (12-20); Blood Urea Nitrogen 31 mg/dL (9-16); Calcium 9.2 mg/dL (8.4-10.2); Carbon Dioxide 13 mmol/L (22-29); Chloride 110 mmol/L (96-108); Creatinine Clr Calc Pharmacy 14.9; Estimated Glomerular Filt Rate 9; Glucose Random 107 mg/dL (60-115); Potassium 4.2 mmol/L (3.3-5.1); Sodium 136 mmol/L (135-145)
[2022-07-01 08:00] VITALS: BP 114/72; PULSE 70; RESP 12; TEMP 36.8; O2SAT 98
[2022-07-01 08:55] LABS: Glucose, Whole Blood 127 mg/dL (60-115)
[2022-07-01] MEDS: metOLazone 5 MG TABLET PO (09:17)
[2022-07-01] MEDS: SITagliptin Phosphate 100 MG TABLET PO (09:17)
[2022-07-01] MEDS: Atorvastatin Calcium 40 MG TABLET PO (09:17)
[2022-07-01] MEDS: calcitrioL 0.25 MCG CAPSULE 1.25 MCG PO (09:18)
[2022-07-01] MEDS: 0.9 % Sodium Chloride Flush 3 ML SYRINGE IVFLUSH ×2 (09:19→16:29)
[2022-07-01 11:08] VITALS: BP 122/71; PULSE 75; RESP 12; TEMP 36.7; O2SAT 99
[2022-07-01 11:31] LABS: Glucose, Whole Blood 150 mg/dL (60-115)
--- NOTE | 2022-07-01 14:50 | MHC.CM.PN ---
Addendum entered by Lianna Ibrahim 07/01/22 14:53: Patient may need to start HD per Nephrology. DP may be [facility] and HD on site. CM will follow. Original Note: Per MD rounds no discharge today, labs worsened. DP home no services. He will need assit with transportation.
--- NOTE | 2022-07-01 15:12 | P.PNIM_ITS ---
Subjective Subjective Date of Service: 07/01/22 Interval History: No acute issues overnight Review of Systems Denies chest pain Denies shortness of breath Denies nausea vomiting diarrhea Physical Exam Vital Signs: Vital Signs: Last Vital Signs Temp 98.1 F 07/01/22 11:08 Pulse 75 07/01/22 11:08 Resp 12 07/01/22 11:08 BP 122/71 07/01/22 11:08 Pulse Ox 99 07/01/22 11:08 O2 Del Method 07/01/22 11:08 BMI result Body Mass Index 35.5 Const: Other: No acute issues overnight Resp: Other: Clear to auscultation bilaterally no rales rhonchi wheezes Cardio: Other: No S4 positive S1-S2 no S3 murmurs rubs gallops GI: Other: Soft nontender nondistended normoactive bowel sounds Extrem: Other: No edema bilaterally Objective Data Active Medications Acetaminophen (Acetaminophen 325 Mg Tablet) 650 mg PO Q6H PRN PRN Reason: Pain, Mild (Pain Scale 1-3) Atorvastatin Calcium (Atorvastatin Calcium 40 Mg Tablet) 40 mg PO DAILY [facility] Last Admin: 07/01/22 09:17 Dose: 40 mg Documented By: COLLEEN Calcitriol (Calcitriol 0.25 Mcg Capsule) 1.25 mcg PO MoWeFr@0900 [facility] Last Admin: 07/01/22 09:18 Dose: 1.25 mcg Documented By: COLLEEN Dextrose (Dextrose 50 % 25 Gm/50 Ml Syringe) 25 gm IVPUSH Q15M PRN; Protocol PRN Reason: per Hypoglycemia Standing Ord. Glucose (Glucose Gel 15 Gm Gel..Gram.) 15 gm PO Q15M PRN; Protocol PRN Reason: per Hypoglycemia Standing Ord. Heparin Sodium (Porcine) (Heparin Sodium,Porcine 5,000 Unit/Ml Vial) 5,000 unit SUBCUT Q8H [facility] Last Admin: 07/01/22 09:19 Dose: 5,000 unit Documented By: COLLEEN Insulin Human Lispro (Insulin Lispro 100 Unit/Ml 3 Ml Vial) 0 unit SUBCUT QIDACHS [facility]; Protocol Last Admin: 07/01/22 11:38 Dose: Not Given Documented By: COLLEEN Non-Admin Reason: No Insulin Coverage Levothyroxine Sodium (Levothyroxine Sodium 75 Mcg Tablet) 75 mcg PO DAILY@0600 [facility] Last Admin: 07/01/22 05:51 Dose: 75 mcg Documented By: DELGADO Lisinopril (Lisinopril 2.5 Mg Tablet) 2.5 mg PO DAILY [facility]; Protocol Last Admin: 07/01/22 09:18 Dose: Not Given Documented By: COLLEEN Non-Admin Reason: Physician Approved Melatonin (Melatonin 3 Mg Tablet) 3 mg PO BEDTIME PRN PRN Reason: Insomnia Metolazone (Metolazone 5 Mg Tablet) 5 mg PO DAILY [facility] Last Admin: 07/01/22 09:17 Dose: 5 mg Documented By: COLLEEN Ondansetron HCl (Ondansetron Hcl 4 Mg/2 Ml Vial) 4 mg IVPUSH Q8H PRN PRN Reason: Nausea and Vomiting Pharmacy Consult (Consult Rx Perform Med Rec) 1 each MISCELLANE ONCE PRN PRN Reason: Consult order Sitagliptin Phosphate (Sitagliptin Phosphate 100 Mg Tablet) 100 mg PO DAILY [facility] Last Admin: 07/01/22 09:17 Dose: 100 mg Documented By: COLLEEN Sodium Chloride (0.9 % Sodium Chloride Flush 3 Ml Syringe) 3 ml IVFLUSH QSHIFT [facility] Last Admin: 07/01/22 09:19 Dose: 3 ml Documented By: COLLEEN Spironolactone (Spironolactone 25 Mg Tablet) 50 mg PO DAILY [facility]; Protocol Last Admin: 07/01/22 09:18 Dose: Not Given Documented By: COLLEEN Non-Admin Reason: Physician Held Med Torsemide (Torsemide 20 Mg Tablet) 100 mg PO BID [facility]; Protocol Last Admin: 07/01/22 09:19 Dose: Not Given Documented By: COLLEEN Non-Admin Reason: Physician Held Med Labs CBC & Chem 7: 06/26/22 09:46 07/01/22 06:11 Labs: Laboratory Results - last 24 hr 06/26/22 06/30/22 06/30/22 09:46 15:42 19:49 Anion Gap Estim Creat Clear Calc Estimated GFR POC Glucose 161 H 132 H Random Glucose Calcium PTH Intact 80 H Calcium (PTH Intact) 6.7 L 07/01/22 07/01/22 07/01/22 06:11 08:49 11:06 Anion Gap 17 Estim Creat Clear Calc 14.9 Estimated GFR 9 POC Glucose 127 H 150 H Random Glucose 107 Calcium 9.2 PTH Intact Calcium (PTH Intact) Assessment and Plan (1) Anasarca: Status: Acute (2) Nephrotic syndrome: Status: Acute (3) CKD (chronic kidney disease), stage V: Status: Acute (4) Hypertension: Status: Acute Plan 66 year old male with a history of primary membranous nephropathy presents with overall body swelling and weight gain? 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 Quality Stroke Does the patient have a stroke diagnosis?: No VTE Prior VTE?: No VTE Risk Level:: Medical - moderate - high VTE Device Contraindication: Treatment Not Indicated VTE Drug Contraindication: N/A - Med Ordered
[2022-07-01 15:31] LABS: Glucose, Whole Blood 133 mg/dL (60-115)
[2022-07-01 15:42] VITALS: BP 131/74; PULSE 76; RESP 18; TEMP 37.1; O2SAT 99
[2022-07-01 19:40] LABS: Glucose, Whole Blood 147 mg/dL (60-115)
[2022-07-01 19:43] VITALS: BP 108/69; PULSE 82; RESP 17; TEMP 36.7; O2SAT 97
[2022-07-01] MEDS: Torsemide 20 MG TABLET 100 MG PO (20:07)
[2022-07-01 23:47] VITALS: BP 107/60; PULSE 79; RESP 16; TEMP 36.7; O2SAT 97
[2022-07-02] MEDS: Heparin Sodium,Porcine 5,000 UNIT/ML VIAL 5000 UNIT SUBCUT ×4 (00:26→22:56)
[2022-07-02] MEDS: 0.9 % Sodium Chloride Flush 3 ML SYRINGE IVFLUSH ×4 (00:27→20:38)
[2022-07-02 04:00] VITALS: BP 112/62; PULSE 77; RESP 17; TEMP 36.7; O2SAT 98
[2022-07-02 06:00] VITALS: BMI 34.7
[2022-07-02] MEDS: Levothyroxine Sodium 75 MCG TABLET PO (06:17)
[2022-07-02 07:19] LABS: Blood Urea Nitrogen 34 mg/dL (9-16); Calcium 9.8 mg/dL (8.4-10.2); Creatinine Clr Calc Pharmacy 14.1; Estimated Glomerular Filt Rate 9; Glucose Random 112 mg/dL (60-115)
[2022-07-02 07:29] LABS: Anion Gap 13 (12-20); Carbon Dioxide 19 mmol/L (22-29); Chloride 107 mmol/L (96-108); Potassium 2.9 mmol/L (3.3-5.1); Sodium 136 mmol/L (135-145)
[2022-07-02] MEDS: SITagliptin Phosphate 100 MG TABLET PO (07:47)
[2022-07-02] MEDS: Atorvastatin Calcium 40 MG TABLET PO (07:47)
[2022-07-02 07:58] LABS: Glucose, Whole Blood 111 mg/dL (60-115)
[2022-07-02 08:00] VITALS: BP 121/72; PULSE 80; RESP 18; TEMP 36.3; O2SAT 98
[2022-07-02] MEDS: Potassium Chloride/H20 10 MEQ/100 ML PIGGYBACK 100 MEQ IV ×4 (09:48→13:33)
--- NOTE | 2022-07-02 11:15 | P.PNNP_ITS ---
Subjective Subjective Date of Service: 07/02/22 Interval history: Seen and examined, events noted Physical Exam Vital Signs: Vital Signs: Last Vital Signs Temp 97.3 F 07/02/22 08:00 Pulse 80 07/02/22 08:00 Resp 18 07/02/22 08:00 BP 121/72 07/02/22 08:00 Pulse Ox 98 07/02/22 08:00 O2 Del Method 07/02/22 08:00 BMI result Body Mass Index 34.7 Const: Other: Obese man in no distress but anasarcic General: cooperative, healthy appearing, comfortable and no acute distress Limitations: no limitations HEENT: Head: Yes normal to inspection Ears: hearing grossly normal bilat erally Eyes: General: appearance normal, both eyes and all related structures Neck: Neck: Yes normal visual inspection, Yes full ROM and Yes no lymphadenopathy Chest: Chest palpation & inspection: normal inspection of the chest Resp: Other: No rales Cardio: Other: JVD is present RRR No S3 No rub Rate: regular rate Rhythm: regular rhythm Peripheral pulses: Peripheral pulses 2+ throughout GI: Other: +distended, no clear ascites on exam, normal sounds nontender Palpation (GI): nontender Skin: General skin exam: no rashes or lesions noted Extrem: Other: Patient with pitting edema extending to the testicles on both legs Objective Data Labs CBC & Chem 7: 06/26/22 09:46 07/02/22 06:28 Labs: Laboratory Results - last 24 hr 07/01/22 07/01/22 07/01/22 11:06 15:28 19:14 Sodium Potassium Chloride Carbon Dioxide Anion Gap BUN Creatinine Estim Creat Clear Calc Estimated GFR POC Glucose 150 H 133 H 147 H Random Glucose Calcium 07/02/22 07/02/22 06:28 07:54 Sodium 136 Potassium 2.9 L D Chloride 107 Carbon Dioxide 19 L Anion Gap 13 BUN 34 H Creatinine 6.58 H* Estim Creat Clear Calc 14.1 Estimated GFR 9 POC Glucose 111 Random Glucose 112 Calcium 9.8 D Procedures Date of Service Date of Service: 07/02/22 Assessment & Plan Assessment and plan (1) CKD (chronic kidney disease), stage V: Status: Acute (2) Nephrotic syndrome: Status: Acute (3) Anasarca: Status: Acute (4) Aortic stenosis: Status: Acute (5) Metabolic acidosis: Status: Acute (6) Anemia: Status: Acute Plan 1. Severe NSYn d/t MGN non-response to IS but he has been non-compliant---Rituxin 1 gm ( 06/30) 2. MED on adv CKD:incr Scr with diuresis not unexpected Bsl Scr 3.5-4.0 3. Hypervol: diuresing on IV alb with diuretic regiment---decr swellng/WT 4. Anmeia 5. H/O and per PT was scheduld for TAVR ? when 6. HypoK Disc: failing outpt Tx d/t med non-complaince and heading toward HD but lets see if he will respond to IV rituxin and hold off on HD for now and reassess over next several days REC: cont to hold diuretics for now and watch to r/s in next 24 -48 hrs; protect RUE ( Left handed); hold off on Pcath and starting HD for now; repalce K Time Spent With Patient Time: Total time managing care of this patient today ____ minutes. Progress Note: Quality Stroke Does the patient have a stroke diagnosis?: No
[2022-07-02 11:36] LABS: Glucose, Whole Blood 136 mg/dL (60-115)
[2022-07-02 12:00] VITALS: BP 114/75; PULSE 76; RESP 18; TEMP 36.4; O2SAT 98
--- NOTE | 2022-07-02 12:11 | HO.PM.IMPN ---
Subjective Subjective Date of Service: 07/02/22 Interval History: Admitted with anasarca secondary to noncompliance. Renal function poor minimal response thus far to Rituxan Review of Systems Denies chest pain Denies shortness of breath Denies nausea vomiting diarrhea Physical Exam Vital Signs: Vital Signs: Last Vital Signs Temp 97.3 F 07/02/22 08:00 Pulse 80 07/02/22 08:00 Resp 18 07/02/22 08:00 BP 121/72 07/02/22 08:00 Pulse Ox 98 07/02/22 08:00 O2 Del Method 07/02/22 08:00 BMI result Body Mass Index 34.7 Const: Other: No acute issues overnight Resp: Other: Clear to auscultation bilaterally no rales rhonchi wheezes Cardio: Other: No S4 positive S1-S2 no S3 murmurs rubs gallops GI: Other: Soft nontender nondistended normoactive bowel sounds Extrem: Other: No edema bilaterally Objective Data Active Medications Acetaminophen (Acetaminophen 325 Mg Tablet) 650 mg PO Q6H PRN PRN Reason: Pain, Mild (Pain Scale 1-3) Atorvastatin Calcium (Atorvastatin Calcium 40 Mg Tablet) 40 mg PO DAILY [facility] Last Admin: 07/02/22 07:47 Dose: 40 mg Documented By: VIKY Calcitriol (Calcitriol 0.25 Mcg Capsule) 1.25 mcg PO MoWeFr@0900 [facility] Last Admin: 07/01/22 09:18 Dose: 1.25 mcg Documented By: COLLEEN Dextrose (Dextrose 50 % 25 Gm/50 Ml Syringe) 25 gm IVPUSH Q15M PRN; Protocol PRN Reason: per Hypoglycemia Standing Ord. Glucose (Glucose Gel 15 Gm Gel..Gram.) 15 gm PO Q15M PRN; Protocol PRN Reason: per Hypoglycemia Standing Ord. Heparin Sodium (Porcine) (Heparin Sodium,Porcine 5,000 Unit/Ml Vial) 5,000 unit SUBCUT Q8H [facility] Last Admin: 07/02/22 07:47 Dose: 5,000 unit Documented By: VIKY Insulin Human Lispro (Insulin Lispro 100 Unit/Ml 3 Ml Vial) 0 unit SUBCUT QIDACHS [facility]; Protocol Last Admin: 07/02/22 11:43 Dose: Not Given Documented By: VIKY Non-Admin Reason: No Insulin Coverage Levothyroxine Sodium (Levothyroxine Sodium 75 Mcg Tablet) 75 mcg PO DAILY@0600 [facility] Last Admin: 07/02/22 06:17 Dose: 75 mcg Documented By: KATHY Melatonin (Melatonin 3 Mg Tablet) 3 mg PO BEDTIME PRN PRN Reason: Insomnia Ondansetron HCl (Ondansetron Hcl 4 Mg/2 Ml Vial) 4 mg IVPUSH Q8H PRN PRN Reason: Nausea and Vomiting Pharmacy Consult (Consult Rx Perform Med Rec) 1 each MISCELLANE ONCE PRN PRN Reason: Consult order Sitagliptin Phosphate (Sitagliptin Phosphate 100 Mg Tablet) 100 mg PO DAILY [facility] Last Admin: 07/02/22 07:47 Dose: 100 mg Documented By: VIKY Sodium Chloride (0.9 % Sodium Chloride Flush 3 Ml Syringe) 3 ml IVFLUSH QSHIFT [facility] Last Admin: 07/02/22 07:48 Dose: 3 ml Documented By: VIKY Labs CBC & Chem 7: 06/26/22 09:46 07/02/22 06:28 Labs: Laboratory Results - last 24 hr 07/01/22 07/01/22 07/02/22 15:28 19:14 06:28 Anion Gap 13 Estim Creat Clear Calc 14.1 Estimated GFR 9 POC Glucose 133 H 147 H Random Glucose 112 Calcium 9.8 D 07/02/22 07/02/22 07:54 11:32 Anion Gap Estim Creat Clear Calc Estimated GFR POC Glucose 111 136 H Random Glucose Calcium Assessment and Plan (1) Anasarca: Status: Acute (2) CKD (chronic kidney disease), stage V: Status: Acute (3) Nephrotic syndrome: Status: Inactive Plan 66 year old male with a history of primary membranous nephropathy presents with overall body swelling and weight gain? 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 Discussed with Renal .. Ko mosley stable -follow renls/divalents 2.Severe aortic stenosis, chronic -stable well compensated -outpatient follow-up 3.CKD stage 4 -continue low-dose lisinopril -follow renals/divalents 4.Diabetes 2 -lispro correctional scale -adjust as indicated DVT prophylaxis with heparin Full code Continue hospitalization for treatment of anasarca requiring IV diuretics Time Spent With Patient Time: Total time managing care of this patient today ____ minutes. Quality Stroke Does the patient have a stroke diagnosis?: No VTE Prior VTE?: No VTE Risk Level:: Medical - moderate - high VTE Device Contraindication: Treatment Not Indicated VTE Drug Contraindication: N/A - Med Ordered
[2022-07-02 15:26] VITALS: BP 112/61; PULSE 79; RESP 16; TEMP 36.6; O2SAT 99
[2022-07-02 15:38] LABS: Glucose, Whole Blood 149 mg/dL (60-115)
[2022-07-02 16:22] LABS: Potassium 3.7 mmol/L (3.3-5.1)
[2022-07-02 19:10] VITALS: BP 112/63; PULSE 73; RESP 15; TEMP 36.5; O2SAT 97
[2022-07-02 20:29] LABS: Glucose, Whole Blood 157 mg/dL (60-115)
[2022-07-02] MEDS: Insulin Lispro 100 UNIT/ML 3 ML VIAL SUBCUT (20:38)
[2022-07-02 23:02] VITALS: BP 116/60; PULSE 80; RESP 17; TEMP 36.4; O2SAT 92
[2022-07-03 06:00] VITALS: BMI 34.3
[2022-07-03] MEDS: Heparin Sodium,Porcine 5,000 UNIT/ML VIAL 5000 UNIT SUBCUT (06:23)
[2022-07-03] MEDS: Levothyroxine Sodium 75 MCG TABLET PO (06:23)
[2022-07-03 07:00] LABS: MANUAL DIFF FLAG NO
[2022-07-03 07:03] LABS: Basophils Absolute Auto 0.1 X10*3/uL (0.0-0.2); Eosinophils Absolute Auto 0.4 X10*3/uL (0.0-0.4); Eosinophils Percent Auto 6.5 % (0-4); Hematocrit 28.2 % (42.0-52.0); Hemoglobin 9.5 g/dl (14.0-18.0); Imm Gran Abs Auto 0.06 X10*3/uL (0.00-0.03); Lymphocytes Absolute Auto 1.3 X10*3/uL (1.2-4.9); Lymphocytes Percent Auto 21.2 % (20-40); Mean Corpuscular HGB Conc 33.7 g/dl (31.0-36.0); Mean Corpuscular Hemoglobin 31.8 pg (27.0-33.0); Mean Corpuscular Volume 94.3 fL (80.0-98.0); Monocytes Absolute Auto 0.8 X10*3/uL (0.1-1.2); Monocytes Percent Auto 12.8 % (2-11); Neutrophils Absolute Auto 3.6 x10*3/uL (2.0-8.3); Neutrophils Percent Auto 57.5 % (45-73); Platelet Count 341 X10*3/uL (160-400); Red Blood Count 2.99 X10*6/uL (4.60-5.80); Red Cell Distribution Width 13.8 % (11.0-16.0); White Blood Count 6.2 X10*3/uL (4.8-10.8)
[2022-07-03 07:12] VITALS: BP 126/68; PULSE 72; RESP 12; TEMP 36.7; O2SAT 100
[2022-07-03 07:31] LABS: Glucose, Whole Blood 120 mg/dL (60-115)
[2022-07-03 07:38] LABS: Alanine Aminotransferase 10 U/L (0-40); Alkaline Phosphatase 55 U/L (39-117); Anion Gap 11 (12-20); Aspartate Amino Transferase 12 U/L (5-37); Bilirubin Total 0.2 mg/dL (0.0-1.0); Blood Urea Nitrogen 35 mg/dL (9-16); Calcium 9.7 mg/dL (8.4-10.2); Carbon Dioxide 20 mmol/L (22-29); Chloride 109 mmol/L (96-108); Creatinine Clr Calc Pharmacy 13.5; Estimated Glomerular Filt Rate 8; Glucose Fasting 112 mg/dL (60-99); Potassium 3.3 mmol/L (3.3-5.1); Sodium 137 mmol/L (135-145); Total Protein 4.1 g/dL (6.5-8.0)
[2022-07-03] MEDS: calcitrioL 0.25 MCG CAPSULE 1.25 MCG PO (08:45)
[2022-07-03] MEDS: Atorvastatin Calcium 40 MG TABLET PO (08:45)
[2022-07-03] MEDS: SITagliptin Phosphate 100 MG TABLET PO (08:45)
[2022-07-03] MEDS: 0.9 % Sodium Chloride Flush 3 ML SYRINGE IVFLUSH (08:46)
[2022-07-03 11:44] VITALS: BP 130/66; PULSE 77; RESP 12; TEMP 36.7; O2SAT 99
[2022-07-03 11:49] LABS: Glucose, Whole Blood 138 mg/dL (60-115)
--- NOTE | 2022-07-03 11:52 | P.DS_ITS ---
DS: Providers Provider Date of Service: 07/03/22 Date of admission: 06/26/22 14:43 Date of discharge: 07/03/22 Primary care physician: Segundo Tapia MD Consults: 06/26/22 11:33 Consult to Nephrology Stat Consulting Provider: Komal Sanchez Reason for consultation: nephrotic syndrom 06/26/22 15:14 Consult to Nephrology Routine Consulting Provider: Jarocho Ribeiro Reason for consultation: nephrotic syndrome Has provider been notified: No DS: Diagnosis Discharge Diagnosis (1) Anasarca: Status: Acute (2) CKD (chronic kidney disease), stage V: Status: Acute (3) Nephrotic syndrome: Status: Inactive DS: Summary Hospital Course Hospital Course: 66-year-old gentleman with past medical history significant for type 2 diabetes mellitus, primary membranous disease with nephrotic syndrome, hyperlipidemia, hypertension, hypo thyroidism, congestive heart failure presented to [facility] [place] with worsening shortness of breath worse with exertion improved with rest and sitting of few weeks duration, associated with generalized edema, patient dose of diuretics were uptitrated with no improvement in his symptoms or swelling therefore presented to emergency room, patient denies associated fever chills, denies chest pain, no palpitations, no orthopnea, no PND, on arrival to ED patient noted to be tachypneic, tachycardic stable blood pressures with normal temperature finger oximetry 100% on room air, chest x-ray showed no acute cardiopulmonary process patient was noted to have generalized anasarca was treated with IV Lasix 120 mg and metolazone case was discussed with charge poster Dr. Sanchez she recommended to admit patient for continued intravenous diuretics. Hospital course Admitted to telemetry and seen by Nephrology. Diuresis adjusted. Good response to therapies. Seen on the day of discharge per Dr. Ribeiro and plan outlined. Patient will obtain labs early next week in follow-up in the office. He will resume his diuretics on Wednesday Time Spent with Patient Time attestation: Total time managing care of this patient today ___30_ minutes. Discharge coordination time: Greater than 30 minutes Quality: Safe Use of Opioids Does Pt have an Active Cancer Diagnosis on the Problem List?: No Quality: Stroke Does the patient have a stroke diagnosis?: No Physical Exam Vital Signs: Vital Signs: Last Vital Signs Temp 98.0 F 07/03/22 11:44 Pulse 77 07/03/22 11:44 Resp 12 07/03/22 11:44 BP 130/66 07/03/22 11:44 Pulse Ox 99 07/03/22 11:44 O2 Del Method 07/03/22 11:44 BMI result Body Mass Index 34.3 DS: Data Data Completed and Pending Completed studies during hospitalization [Text1]: Procedures Extraction of Right Inguinal Lymphatic, Percutaneous Approach, Diagnostic (04/23/20) Labs on day of discharge: Laboratory Results - last 24 hr 07/02/22 07/02/22 07/02/22 15:29 15:36 20:21 WBC RBC Hgb Hct MCV MCH MCHC RDW Plt Count MPV Immature Gran % (Auto) Neut % (Auto) Lymph % (Auto) [place] % (Auto) Eos % (Auto) Baso % (Auto) Lymph # (Auto) [place] # (Auto) Eos # (Auto) Baso # (Auto) Abs Immat Gran (auto) Absolute Neuts (auto) Absolute Nucleated RBC Nucleated RBC % (auto) Sodium Potassium 3.7 D Chloride Carbon Dioxide Anion Gap BUN Creatinine Estim Creat Clear Calc Estimated GFR POC Glucose 149 H 157 H Fasting Glucose Calcium Total Bilirubin AST ALT Alkaline Phosphatase Total Protein Albumin 07/03/22 07/03/22 07/03/22 06:32 06:32 07:11 WBC 6.2 RBC 2.99 L Hgb 9.5 L Hct 28.2 L MCV 94.3 MCH 31.8 MCHC 33.7 RDW 13.8 Plt Count 341 MPV 10.0 Immature Gran % (Auto) 1.0 H Neut % (Auto) 57.5 Lymph % (Auto) 21.2 [place] % (Auto) 12.8 H Eos % (Auto) 6.5 H Baso % (Auto) 1.0 Lymph # (Auto) 1.3 [place] # (Auto) 0.8 Eos # (Auto) 0.4 Baso # (Auto) 0.1 Abs Immat Gran (auto) 0.06 H Absolute Neuts (auto) 3.6 Absolute Nucleated RBC 0.000 Nucleated RBC % (auto) 0.0 Sodium 137 Potassium 3.3 Chloride 109 H Carbon Dioxide 20 L Anion Gap 11 L BUN 35 H Creatinine 6.81 H* Estim Creat Clear Calc 13.5 Estimated GFR 8 POC Glucose 120 H Fasting Glucose 112 H Calcium 9.7 Total Bilirubin 0.2 AST 12 ALT 10 Alkaline Phosphatase 55 Total Protein 4.1 L Albumin 2.0 L 07/03/22 11:43 WBC RBC Hgb Hct MCV MCH MCHC RDW Plt Count MPV Immature Gran % (Auto) Neut % (Auto) Lymph % (Auto) [place] % (Auto) Eos % (Auto) Baso % (Auto) Lymph # (Auto) [place] # (Auto) Eos # (Auto) Baso # (Auto) Abs Immat Gran (auto) Absolute Neuts (auto) Absolute Nucleated RBC Nucleated RBC % (auto) Sodium Potassium Chloride Carbon Dioxide Anion Gap BUN Creatinine Estim Creat Clear Calc Estimated GFR POC Glucose 138 H Fasting Glucose Calcium Total Bilirubin AST ALT Alkaline Phosphatase Total Protein Albumin Discharge Plan Discharge Anticipated Discharge Date/Time: 07/03/22 11:50 Patient Disposition: Home, Self-Care Discharge Diagnosis: Anasarca Referrals: Segundo Tapia MD [Primary Care Provider] - 1 Week Discharge Medications: Continued levothyroxine 75 mcg Tablet 75 mcg PO DAILY atorvastatin 40 mg tablet 40 mg PO DAILY amlodipine 5 mg Tablet 5 mg PO DAILY Qty: 30 0RF Protocol: Hold for SBP< HOLD for SBP < : 90 lisinopril 2.5 mg tablet 2.5 mg PO DAILY metolazone 2.5 mg tablet 2.5 mg PO DAILY spironolactone 25 mg tablet 25 mg PO DAILY Januvia 100 mg tablet 1 tab PO DAILY torsemide 20 mg tablet 40 mg PO BID metformin 500 mg tablet extended release 24 hr 1,000 mg PO BID Discharge Orders: Discharge Order (Routine); Ordered 07/03/22 Ordered By: Brian Willson Diet: Advance to usual diet Activity on Discharge: As tolerated Stand Alone Forms: Patient Portal Discharge page Care Plan Goals: Resume all pre-hospital meds as per Dr. Ribeiro is a suggestion Health Concerns: Come to the hospital for labs Wednesday or Wednesday of next week Plan of Treatment: Follow-up with Dr. Ribeiro in the office Assessment: See discharge summary
--- NOTE | 2022-07-03 12:29 | MHC.CM.PN ---
Patient has been medically cleared for dc to home today, self care. Patient will dc to home today at 2PM, via [facility]. CM met with Patient at bedside and addressed IMM with him, providing him with the original and placing a copy on the chart.
--- NOTE | 2022-07-03 19:41 | PM.PNNEP ---
Subjective Subjective Date of Service: 07/03/22 Interval history: Seen and examined, events noted Physical Exam Vital Signs: Vital Signs: Last Vital Signs Temp 98.0 F 07/03/22 11:44 Pulse 77 07/03/22 11:44 Resp 12 07/03/22 11:44 BP 130/66 07/03/22 11:44 Pulse Ox 99 07/03/22 11:44 O2 Del Method 07/03/22 11:44 BMI result Body Mass Index 34.3 Const: Other: Obese man in no distress but anasarcic General: cooperative, healthy appearing, comfortable and no acute distress Limitations: no limitations HEENT: Head: Yes normal to inspection Ears: hearing grossly normal bilaterally Eyes: General: appearance normal, both eyes and all related structures Neck: Neck: Yes normal visual inspection, Yes full ROM and Yes no lymphadenopathy Chest: Chest palpation & inspection: normal inspection of the chest Resp: Other: No rales Cardio: Other: JVD is present RRR No S3 No rub Rate: regular rate Rhythm: regular rhythm Peripheral pulses: Peripheral pulses 2+ throughout GI: Other: +distended, no clear ascites on exam, normal sounds nontender Palpation (GI): nontender Skin: General skin exam: no rashes or lesions noted Extrem: Other: Patient with pitting edema extending to the testicles on both legs Objective Data Labs CBC & Chem 7: 07/03/22 06:32 07/03/22 06:32 Labs: Laboratory Results - last 24 hr 07/02/22 07/03/22 07/03/22 20:21 06:32 06:32 WBC 6.2 RBC 2.99 L Hgb 9.5 L Hct 28.2 L MCV 94.3 MCH 31.8 MCHC 33.7 RDW 13.8 Plt Count 341 MPV 10.0 Immature Gran % (Auto) 1.0 H Neut % (Auto) 57.5 Lymph % (Auto) 21.2 [place] % (Auto) 12.8 H Eos % (Auto) 6.5 H Baso % (Auto) 1.0 Lymph # (Auto) 1.3 [place] # (Auto) 0.8 Eos # (Auto) 0.4 Baso # (Auto) 0.1 Abs Immat Gran (auto) 0.06 H Absolute Neuts (auto) 3.6 Absolute Nucleated RBC 0.000 Nucleated RBC % (auto) 0.0 Sodium 137 Potassium 3.3 Chloride 109 H Carbon Dioxide 20 L Anion Gap 11 L BUN 35 H Creatinine 6.81 H* Estim Creat Clear Calc 13.5 Estimated GFR 8 POC Glucose 157 H Fasting Glucose 112 H Calcium 9.7 Total Bilirubin 0.2 AST 12 ALT 10 Alkaline Phosphatase 55 Total Protein 4.1 L Albumin 2.0 L 07/03/22 07/03/22 07:11 11:43 WBC RBC Hgb Hct MCV MCH MCHC RDW Plt Count MPV Immature Gran % (Auto) Neut % (Auto) Lymph % (Auto) [place] % (Auto) Eos % (Auto) Baso % (Auto) Lymph # (Auto) [place] # (Auto) Eos # (Auto) Baso # (Auto) Abs Immat Gran (auto) Absolute Neuts (auto) Absolute Nucleated RBC Nucleated RBC % (auto) Sodium Potassium Chloride Carbon Dioxide Anion Gap BUN Creatinine Estim Creat Clear Calc Estimated GFR POC Glucose 120 H 138 H Fasting Glucose Calcium Total Bilirubin AST ALT Alkaline Phosphatase Total Protein Albumin Procedures Date of Service Date of Service: 07/03/22 Assessment & Plan Assessment and plan (1) CKD (chronic kidney disease), stage V: Status: Acute (2) Nephrotic syndrome: Status: Acute (3) Anasarca: Status: Acute (4) Aortic stenosis: Status: Acute (5) Metabolic acidosis: Status: Acute (6) Anemia: Status: Acute Plan 1. Severe NSYn d/t MGN non-response to IS but he has been non-compliant---Rituxin 1 gm ( 06/30) 2. MED on adv CKD:incr Scr with diuresis not unexpected Bsl Scr 3.5-4.0 3. Hypervol: diuresing on IV alb with diuretic regiment---decr swellng/WT 4. Anmeia 5. H/O and per PT was scheduld for TAVR ? when 6. HypoK Disc: failing outpt Tx d/t med non-complaince and heading toward HD but lets see if he will respond to IV rituxin and hold off on HD for now and reassess over next several days REC: cont to hold diuretics for now and watch to r/s in next 24 -48 hrs as outpt; protect RUE ( Left handed); hold off on Pcath and starting HD for now; repalce K ok to d/c home and repeat renal labs on Wednesday and I will arrange clsoe f/u with me Time Spent With Patient Time: Total time managing care of this patient today ____ minutes. Progress Note: Quality Stroke Does the patient have a stroke diagnosis?: No
[2022-07-05 23:18] LABS: Lipoprotein Asso Phospholip A2 162 (<124)
== END 2022-07-03 13:58 | disposition home or self-care (01) | DRG 699 ==
LOC: HO.ED 11:21 → HO.EDOVER 14:49 → HO.IMC 17:49
PROVIDERS: Internal Medicine; Internal Medicine Nephrology; Nurse Practitioner Acute Care; Nurse Practitioner Family; Admitting Provider Hospitalist; Emergency Provider Emergency Medicine Emergency Medical Services; PCP Internal Medicine; Visit Provider Hospitalist
DX: N05.2 Unspecified nephritic syndrome with diffuse membranous glomerulonephritis (principal); E87.20 Acidosis, unspecified; I13.0 Hypertensive heart and chronic kidney disease with heart failure and stage 1 through stage 4 chronic kidney disease, or unspecified chronic kidney disease; Z68.41 Body mass index [BMI] 40.0-44.9, adult; N17.9 Acute kidney failure, unspecified; N18.4 Chronic kidney disease, stage 4 (severe); E83.51 Hypocalcemia; I35.0 Nonrheumatic aortic (valve) stenosis; D63.1 Anemia in chronic kidney disease; E13.22 Other specified diabetes mellitus with diabetic chronic kidney disease; I50.9 Heart failure, unspecified; E66.01 Morbid (severe) obesity due to excess calories; E88.09 Other disorders of plasma-protein metabolism, not elsewhere classified; E78.5 Hyperlipidemia, unspecified; E03.9 Hypothyroidism, unspecified; Z20.822 Contact with and (suspected) exposure to COVID-19; Z87.891 Personal history of nicotine dependence; Z88.0 Allergy status to penicillin; Z79.890 Hormone replacement therapy; Z79.899 Other long term (current) drug therapy
CPT/HCPCS: 36415; 71045; 80048; 80053; 82330; 82575; 82607; 82746; 82947; 83540; 83698; 83735; 83880; 83970; 84100; 84132; 84156; 84484; 84545; 85025; 85610; 86021; 86704; 86706; 87340; 87635; 93005; 99285; J1940; J9312; P9047

== ENCOUNTER 2022-07-08 08:59 | Outpatient (REF) | payer MEDICARE, MEDICAID, SELFPAY ==
[2022-07-08 10:50] LABS: Hematocrit 29.6 % (42.0-52.0); Hemoglobin 9.9 g/dl (14.0-18.0); Mean Corpuscular HGB Conc 33.4 g/dl (31.0-36.0); Mean Corpuscular Hemoglobin 31.8 pg (27.0-33.0); Mean Corpuscular Volume 95.2 fL (80.0-98.0); Mean Platelet Volume 10.6 fL (9.4-12.4); Platelet Count 437 X10*3/uL (160-400); Red Blood Count 3.11 X10*6/uL (4.60-5.80); Red Cell Distribution Width 13.7 % (11.0-16.0); White Blood Count 9.4 X10*3/uL (4.8-10.8)
[2022-07-08 11:32] LABS: Albumin Level 2.2 g/dL (3.5-5.0); Anion Gap 13 (12-20); Blood Urea Nitrogen 37 mg/dL (9-16); Calcium 10.5 mg/dL (8.4-10.2); Carbon Dioxide 20 mmol/L (22-29); Chloride 109 mmol/L (96-108); Estimated Glomerular Filt Rate 11; Magnesium 1.9 mg/dL (1.6-2.6); Potassium 4.2 mmol/L (3.3-5.1); Sodium 138 mmol/L (135-145); Vitamin D 25-OH Total 6.2 ng/mL (>30)
[2022-07-09 17:47] LABS: Calcium (PTHI) 10.4 mg/dL (8.6-10.3); PTHI 10 pg/mL (16-77)
== END 2022-07-08 09:00 | disposition home or self-care (01) ==
LOC: HO.10HDL 08:59
PROVIDERS: Visit Provider Internal Medicine Nephrology
DX: I12.0 Hypertensive chronic kidney disease with stage 5 chronic kidney disease or end stage renal disease (principal); E11.22 Type 2 diabetes mellitus with diabetic chronic kidney disease; N18.5 Chronic kidney disease, stage 5; N25.0 Renal osteodystrophy
CPT/HCPCS: 36415; 80051; 82040; 82306; 82310; 82565; 83735; 83970; 84100; 84520; 85027

== ENCOUNTER 2022-07-24 09:31 | Inpatient (IN) | payer MEDICARE, MEDICAID, SELFPAY ==
--- NOTE | ~2022-07-24 | XR_ITS ---
EXAMINATION: XR CHEST CLINICAL INFORMATION: Question infiltrate on the portable film. COMPARISON: 07/24/2022 TECHNIQUE: 2 views of the chest were obtained. FINDINGS: Cardiac leads overlie the chest. The lungs are well expanded. There is blunting seen at the costophrenic angles on the lateral view consistent with small pleural effusions. No dense consolidation. No pneumothorax. The cardiomediastinal silhouette is unchanged, with a calcified aorta. XR/XR chest 2V IMPRESSION: Small pleural effusions. No dense consolidation.
--- NOTE | ~2022-07-24 | XR_ITS ---
EXAMINATION: XR CHEST CLINICAL INFORMATION: Cough COMPARISON: 06/26/2022 TECHNIQUE: Frontal view of the chest was obtained. FINDINGS: The lungs are well expanded. Increased opacity at the left base. No pleural effusion or pneumothorax. The cardiomediastinal silhouette is unchanged, with a calcified aorta. XR/XR chest 1V IMPRESSION: Increased left basilar opacity which could represent atelectasis or pneumonia.
[2022-07-24 09:42] VITALS: BP 124/60; BP 126/63; PULSE 75; PULSE 85; RESP 14; TEMP 36.6; O2SAT 94; O2SAT 95; BMI 38.9
--- NOTE | 2022-07-24 09:52 | ECG_ITS ---
Test Reason : SYNCOPE Blood Pressure : / mmHG Vent. Rate : 078 BPM Atrial Rate : 078 BPM P-R Int : 178 ms QRS Dur : 102 ms QT Int : 418 ms P-R-T Axes : 026 008 017 degrees QTc Int : 476 ms Normal sinus rhythm Nonspecific ST abnormality Abnormal ECG When compared with ECG of 26-JUN-2022 08:58, No significant change was found Referred By: Jerzy Helm Electronically Signed By:RUT CUELLO
--- NOTE | 2022-07-24 09:54 | ED_ITS ---
HPI - Syncope General Chief Complaint: Syncope Stated Complaint: SYNCOPE, DIZZINESS Time Seen by Provider: 07/24/22 09:50 Source: patient and EMS Mode of arrival: EMS Limitations: no limitations History of Present Illness HPI narrative: This is a 66 years old man with history of chronic renal failure, anasarca neph rotic syndrome presented to the ED by ambulance after syncopal episode he was in the car with his father and ambulance was called transported to the ED. His main complaint at this time is nausea, was given Zofran by the EMS. MD complaint: loss of consciousness Onset (ago): hour(s) (1) Prodromal symptoms: none Witnessed: Yes - by Other (father) Context: at rest Related Data Home Medications Medication Instructions Recorded Confirmed levothyroxine 75 mcg tablet 75 mcg PO DAILY 06/27/20 07/24/22 atorvastatin 40 mg tablet 40 mg PO DAILY 02/10/22 07/24/22 lisinopril 2.5 mg tablet 2.5 mg PO DAILY 02/10/22 07/24/22 metolazone 2.5 mg tablet 2.5 mg PO DAILY 02/10/22 07/24/22 spironolactone 25 mg tablet 25 mg PO DAILY 02/10/22 07/24/22 torsemide 20 mg tablet 40 mg PO BID 05/04/22 07/24/22 acetaminophen 500 mg tablet 1 tab PO Q8H PRN Pain 07/24/22 07/24/22 Previous Rx's Medication Instructions Recorded amlodipine 5 mg tablet 5 mg PO DAILY #30 tabs 01/05/22 Allergies Allergy/AdvReac Type Severity Reaction Status Date / Time Penicillins Allergy Unknown UNKWN Verified 07/24/22 09:42 Review of Systems Constitutional: Constitutional: Reports no additional constitutional complaints ENT: Reports system reviewed and no additional complaints, except as documented Cardiovascular: Cardiovascular: Reports no additional cardiovascular complaints Respiratory: Respiratory: Reports no additional respiratory complaints PMFSH Past Medical History Medical History Acute hypokalemia Acute on chronic renal failure Anasarca associated with disorder of kidney Anasarca associated with disorder of kidney Aortic stenosis CHF (congestive heart failure), NYHA class I CKD (chronic kidney disease) stage 3, GFR 30-59 ml/min Congestive heart failure Congestive heart failure Diabetes 1.5, managed as type 2 Diverticulosis Hiatal hernia History of small bowel obstruction Hyperlipidemia Hypertension 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 Social History Social History Household Members: None Housing: Apartment Do you presently have visiting nurse or other home services: No Unable to assess alcohol history related to: Unknown Alcohol intake: former Patient Tobacco Use Status: Former Tobacco user Second Hand Smoke Exposure: No Advance Directives: No Advance Directives Date on File: 05/01/20 service: No Current occupational status: unemployed and disabled Physical Exam Vital Signs: Vital Signs: Last Vital Signs Temp 97.8 F 07/24/22 09:42 Pulse 68 07/24/22 11:37 Resp 16 07/24/22 11:37 BP 121/66 07/24/22 11:37 Pulse Ox 99 07/24/22 11:37 O2 Del Method 07/24/22 11:37 Oxygen Flow Rate 4 07/24/22 09:42 BMI result Body Mass Index 38.9 Const: General: cooperative HEENT: Head: Yes normal to inspection Face and sinus: Yes normal facial exam Mouth: Normal oral and palatal mucosa present Throat: Yes posterior oropharynx normal Neck: Neck: Yes normal visual inspection Resp: Effort & Inspection: normal respiratory effort and able to speak in complete sentences Auscultation: clear to auscultation bilaterally GI: Inspection: Yes normal to inspection Palpation (GI): Soft to palpation Skin: General skin exam: no rashes or lesions noted Rashes: no rashes Extrem: Other: 3 plus edema Course Reevaluation(s) Reevaluation #1: Remained hemodynamically stable patient will need admission he has history of severe aortic stenosis, I discussed the case with the wire wrapper machine operator Dr Hooker Time: 11:24 Medications Administered Discontinued Medications Generic Name Dose Route Start Last Admin Trade Name Freq PRN Reason Stop Dose Admin Metoclopramide HCl 10 mg 07/24/22 09:52 07/24/22 09:58 Metoclopramide Hcl 10 Mg/2 Ml Vial IVPUSH 07/24/22 09:53 10 mg ONCE ONE Administration Medical Decision Making Medical Decision Making MDM Narrative: At this time the differential diagnosis is broad including VA, CHF, arrhythmia, will get labs electrocardiogram chest x-ray and reassessed Differential Diagnosis Differential Diagnoses: The differential diagnosis associated with the presentation includes Differential diagnosis is as above pneumonia arrhythmia VA Admission/Observation Consideration of admission/observation: Escalation of care including admission/observation considered Consult Healthcare Provider Management of the patient was discussed with: Hospitalist and Seed Sorter spoke with Dr Hooker,case d/w with him he recommend Echo Lab Data [facility] Lab Attestation statement: I reviewed the patient's lab results. 07/24/22 10:07 07/24/22 10:07 Labs: Lab Results 07/24/22 07/24/22 07/24/22 Range/Units 10:07 10:07 10:07 WBC 8.0 (4.8-10.8) X10*3/uL RBC 2.74 L (4.60-5.80) X10*6/uL Hgb 8.8 L (14.0-18.0) g/dl Hct 25.8 L (42.0-52.0) % MCV 94.2 (80.0-98.0) fL MCH 32.1 (27.0-33.0) pg MCHC 34.1 (31.0-36.0) g/dl RDW 14.3 (11.0-16.0) % Plt Count 320 D (160-400) X10*3/uL MPV 10.1 (9.4-12.4) fL Immature Gran % (Auto) 0.8 H (0.0-0.4) % Neut % (Auto) 66.7 (45-73) % Lymph % (Auto) 20.0 (20-40) % [place] % (Auto) 7.7 (2-11) % Eos % (Auto) 4.0 (0-4) % Baso % (Auto) 0.8 (0-2) % Lymph # (Auto) 1.6 (1.2-4.9) X10*3/uL [place] # (Auto) 0.6 (0.1-1.2) X10*3/uL Eos # (Auto) 0.3 (0.0-0.4) X10*3/uL Baso # (Auto) 0.1 (0.0-0.2) X10*3/uL Abs Immat Gran (auto) 0.06 H (0.00-0.03) X10*3/uL Absolute Neuts (auto) 5.3 (2.0-8.3) x10*3/uL Absolute Nucleated RBC 0.000 (0.0-0.012) X10*3/uL Nucleated RBC % (auto) 0.0 (0.0-0.2) /100WBC PT 10.4 (10.0-13.1) SEC INR 0.9 (0.9-1.1) Sodium 141 (135-145) mmol/L Potassium 3.2 L D (3.3-5.1) mmol/L Chloride 114 H (96-108) mmol/L Carbon Dioxide 16 L (22-29) mmol/L Anion Gap 14 (12-20) BUN 30 H (9-16) mg/dL Creatinine 4.91 H* (0.5-1.4) mg/dL Estim Creat Clear Calc 20.0 Estimated GFR 12 Random Glucose 132 H (60-115) mg/dL Calcium 8.6 D (8.4-10.2) mg/dL Total Bilirubin 0.2 (0.0-1.0) mg/dL AST 16 (5-37) U/L ALT 9 (0-40) U/L Alkaline Phosphatase 52 D (39-117) U/L Troponin I High Sens (<3.5-35.0) ng/L B-Natriuretic Peptide (<100) pg/mL Total Protein 4.3 L (6.5-8.0) g/dL Albumin 2.1 L (3.5-5.0) g/dL COVID-19 ([facility]) (Negative) COVID-19 Clin Com 07/24/22 07/24/22 07/24/22 Range/Units 10:07 10:07 10:07 WBC (4.8-10.8) X10*3/uL RBC (4.60-5.80) X10*6/uL Hgb (14.0-18.0) g/dl Hct (42.0-52.0) % MCV (80.0-98.0) fL MCH (27.0-33.0) pg MCHC (31.0-36.0) g/dl RDW (11.0-16.0) % Plt Count (160-400) X10*3/uL MPV (9.4-12.4) fL Immature Gran % (Auto) (0.0-0.4) % Neut % (Auto) (45-73) % Lymph % (Auto) (20-40) % [place] % (Auto) (2-11) % Eos % (Auto) (0-4) % Baso % (Auto) (0-2) % Lymph # (Auto) (1.2-4.9) X10*3/uL [place] # (Auto) (0.1-1.2) X10*3/uL Eos # (Auto) (0.0-0.4) X10*3/uL Baso # (Auto) (0.0-0.2) X10*3/uL Abs Immat Gran (auto) (0.00-0.03) X10*3/uL Absolute Neuts (auto) (2.0-8.3) x10*3/uL Absolute Nucleated RBC (0.0-0.012) X10*3/uL Nucleated RBC % (auto) (0.0-0.2) /100WBC PT (10.0-13.1) SEC INR (0.9-1.1) Sodium (135-145) mmol/L Potassium (3.3-5.1) mmol/L Chloride (96-108) mmol/L Carbon Dioxide (22-29) mmol/L Anion Gap (12-20) BUN (9-16) mg/dL Creatinine (0.5-1.4) mg/dL Estim Creat Clear Calc Estimated GFR Random Glucose (60-115) mg/dL Calcium (8.4-10.2) mg/dL Total Bilirubin (0.0-1.0) mg/dL AST (5-37) U/L ALT (0-40) U/L Alkaline Phosphatase (39-117) U/L Troponin I High Sens 38.0 H D (<3.5-35.0) ng/L B-Natriuretic Peptide 256 H (<100) pg/mL Total Protein (6.5-8.0) g/dL Albumin (3.5-5.0) g/dL COVID-19 ([facility]) Negative (Negative) COVID-19 Clin Com See Note Independent Interpretation I performed an independent interpretation of an: EKG (EKG was reviewed personally by me no ischemia normal sinus rhythm 78 ) and Rhythm Strip Radiology Impression Radiologist Impression: i review pwesonally CXR External Record Review External record reviewed: Inpatient record and Office record Tests considered The following testing was considered but not selected: CTA chest but not done because elevated Bun/creat Chronic Conditions Patient?s care impacted by: Other (renal failure/aortic stenosis) Discharge Plan Discharge Clinical Impression: Syncope, Aortic stenosis, Renal failure, chronic, Hypercalcemia Patient Disposition: Admitted As Inpatient
[2022-07-24] MEDS: Metoclopramide HCl 10 MG/2 ML VIAL IVPUSH (09:58)
[2022-07-24 10:10] LABS: MANUAL DIFF FLAG NO
--- NOTE | 2022-07-24 10:12 | PC.NURSE ---
patient a&o upon arrival to ED, pt very cantankerous and unwilling to answer additional triage questions for this nurse and the MD provider. IV inserted to LT AC, labs drawn, nasal swab performed, cxr performed, pt medicated for nausea, ekg being performed by techs. cardiac care nurse nsr, pt noted to have an O2 sat at 76% with a good pleth, pt placed on 4L NC and O2 increased to mid 90s and provider notified, call acharya within reach, will continue to monitor.
[2022-07-24 10:17] LABS: INTERNATIONAL NORM RATIO 0.9 (0.9-1.1); Prothrombin Time 10.4 SEC (10.0-13.1)
[2022-07-24 10:19] LABS: Basophils Absolute Auto 0.1 X10*3/uL (0.0-0.2); Basophils Percent Auto 0.8 % (0-2); Eosinophils Absolute Auto 0.3 X10*3/uL (0.0-0.4); Hematocrit 25.8 % (42.0-52.0); Hemoglobin 8.8 g/dl (14.0-18.0); Imm Gran Abs Auto 0.06 X10*3/uL (0.00-0.03); Imm Gran Pct Auto 0.8 % (0.0-0.4); Lymphocytes Absolute Auto 1.6 X10*3/uL (1.2-4.9); Mean Corpuscular HGB Conc 34.1 g/dl (31.0-36.0); Mean Corpuscular Hemoglobin 32.1 pg (27.0-33.0); Mean Corpuscular Volume 94.2 fL (80.0-98.0); Mean Platelet Volume 10.1 fL (9.4-12.4); Monocytes Absolute Auto 0.6 X10*3/uL (0.1-1.2); Monocytes Percent Auto 7.7 % (2-11); Neutrophils Absolute Auto 5.3 x10*3/uL (2.0-8.3); Neutrophils Percent Auto 66.7 % (45-73); Platelet Count 320 X10*3/uL (160-400); Red Blood Count 2.74 X10*6/uL (4.60-5.80); Red Cell Distribution Width 14.3 % (11.0-16.0)
[2022-07-24 10:34] LABS: Alanine Aminotransferase 9 U/L (0-40); Albumin Level 2.1 g/dL (3.5-5.0); Alkaline Phosphatase 52 U/L (39-117); Anion Gap 14 (12-20); Aspartate Amino Transferase 16 U/L (5-37); Bilirubin Total 0.2 mg/dL (0.0-1.0); Blood Urea Nitrogen 30 mg/dL (9-16); Calcium 8.6 mg/dL (8.4-10.2); Carbon Dioxide 16 mmol/L (22-29); Chloride 114 mmol/L (96-108); Estimated Glomerular Filt Rate 12; Glucose Random 132 mg/dL (60-115); Potassium 3.2 mmol/L (3.3-5.1); Sodium 141 mmol/L (135-145); Total Protein 4.3 g/dL (6.5-8.0)
[2022-07-24 10:35] LABS: B Type Natriuretic Peptide 256 pg/mL (<100)
[2022-07-24 10:39] LABS: COVID-19 Test Negative (Negative); IDNOW Serial# 16C4AD1C
--- NOTE | 2022-07-24 11:07 | PHA.MEDREC ---
Pharmacy Consult ? Medication Reconciliation Pharmacy has completed the medication reconciliation. Patient had no idea what he was on. Tried calling providers office, list was not updated. Used claim history from [employer]
--- NOTE | 2022-07-24 11:08 | CA_ITS ---
Transthoracic Echocardiogram Patient (Last, First, Middle): Milan Angeles C Gender: Male Date of : 1955 Age: 66 Procedure Date: 07/24/2022 Procedure Type: Transthoracic Echocardiogram Location: ER Height: 180.34 cm Weight: 126.1 kg BSA: 2.43 m2 Heart Rate: bpm BP: 124 / 60 mmHg Vault Cashier: MYA Referring MD: Jerzy Helm MD Symptoms: as Study Quality: Fair/Contrast ECG Rhythm: Sinus Conclusions: - The left ventricular systolic function is normal. The calculated ejection fraction is 68% by biplane method. - There is moderately increased left ventricular wall thickness. - There is severe aortic valve stenosis. Findings Procedure Information Contrast agent, definity, is being given per protocol without apparent complications. Left Ventricle Normal left ventricular cavity size. There is moderately increased left ventricular wall thickness. The left ventricular systolic function is normal. The calculated ejection fraction is 68% by biplane method. There is no evidence of regional wall motion abnormalities. E/E prime ratio is >15, consistent with elevated filling pressures. Evidence suggests grade I (mild) diastolic dysfunction. Right Ventricle Normal right ventricular cavity size and systolic function. Atria Both atria are normal in size. Aortic Valve There is severe calcification of the aortic valve. There is severe aortic valve stenosis. The peak aortic velocity is 4.84 m/s with a calculated peak gradient of 94 mmHg. The mean gradient is 60 mmHg. The aortic valve area is 0.76 cm2. There is no aortic valve regurgitation. Mitral Valve There is mild mitral annular calcification. There is mild mitral valve regurgitation. There is no mitral valve stenosis. Pulmonic Valve The pulmonic valve is likely normal. Tricuspid Valve There is mild tricuspid valve regurgitation. The right ventricular systolic pressure is 45 mmHg. Mild pulmonary hypertension is present. Great Vessels The asc aorta is normal in size. Venous The inferior vena cava is normal in size and collapses greater than 50% with inspiration. Pericardium/Pleural There is no evidence of pericardial effusion. Prior Study Comparison Changes noted compared to prior study dated: 12/30/2021. Progression of aortic stenosis. Measurements 2D Linear Measurements IVSd: 1.46 0.6-0.9/0.6-1.0 cm LVIDd: 5.11 3.9-5.3/4.2-5.9 cm LVIDd Index: 2.10 2.4-3.2/2.2-3.1 cm/m2 LVIDs: 3.53 2.0-3.6 cm LVPWd: 1.35 0.7-1.1 cm Ao Root: 3.70 2.1-3.5 cm LA Diam: 4.30 2.7-3.8/3.0-4.0 cm LAIDs Index: 1.77 1.5-2.3 cm/m2 LV Mass: 377.89 67-162/88-224 g LV Mass Index: 155.51 43-95/49-115 g/m2 LVOT Diam: 2.10 3.0+(-)1.3 cm 2D Systolic Function EF 4C: 66.90 >55% EF 2C: 70.80 >55% EF BiP: 67.80 >55% Mitral Valve MV Pk E: 0.90 MV PK A: 1.26 MV Decel Time: 235.00 E/A: 0.70 E'Lateral: 6.53 E'Medial: 4.35 E/E' Med: 20.60 E/E' Lat: 13.70 PHT: 69.00 MVA PHT: 3.19 Decel [place]: 3.81 Aortic Valve AoV Pk Ghulam: 4.84 AoV Mn Ghulam: 3.66 AoV VTI: 1.12 AoV Pk Grad: 94.00 Aov Mn Grad: 60.00 EDDI Cont.VTI: 0.76 LVOT LVOT Pk Ghulam: 1.07 LVOT Mn Ghulam: 0.82 LVOT VTI: 0.25 LVOT Pk Grad: 5.00 LVOT Mn Grad: 3.00 LVOT Diam: 2.10 LVOT Area: 3.46 Diastolic Function MV Pk E: 0.90 MV Pk A: 1.26 E/A: 0.70 E'Medial: 4.35 E/E' Med: 20.60 E' Laterial: 6.53 E/E' Lat: 13.70 Right Ventricle TAPSE (mm): 27.50 TVS' Ghulam: 16.50 Tricuspid Valve TR Pk Ghulam: 3.06 TR Pk Grad: 37.00 RA Press: 8.00 RVSP: 45.00 Great Vessels Aorta Ao Root-2D: 3.70 2.0-3.7 cm Sinus of Valsalva: 3.70 2.0-3.5 cm Ao Asc: 3.90 2.1-3.4 cm Pulmonary Valve PV Pk Ghulam: 1.30 Peak PV Grad: 7.00 Updated in Other Vendor System with Status of Final Parveen Hooker MD electronically signed on 07/24/2022 3:49:38 PM with status of Final
[2022-07-24 11:37] VITALS: BP 121/66; PULSE 68; RESP 16; O2SAT 98; O2SAT 99
--- NOTE | 2022-07-24 12:33 | P.HPHOSP_ITS ---
History of Present Illness Date of Service: 07/24/22 Chief Complaint: Syncope Pt is a 66-year-old male with a PMH significant for obv-carzfuv-fndzdrkui DM 2, CKD stage 4, HLD, HTN, hypothyroidism, CHF, and anasarca?who presents to the ED after a syncopal episode. Patient states that he was at [employer] in [place] with his father buying groceries and when he went to get into the car?felt lighthe aded and dizzy and then ?blacked out?. Patient's father, who is at bedside, says that his son grabbed that his chest, said ?I can not breathe,? and then ?folded over,? ending up half in and half out of the car. Father immediately went into the store to call for EMS and says that he is uncertain but did not see any tonic clonic like movements. EMS immediately arrived and patient revived after 5-10 minutes. When patient awoke he was nauseous, with an upset stomach, and confused for another 5-10 minutes Patient states this is the 1st time he has experienced an episode like this. Patient denies biting his tongue, starting new medications, but he does say he has been not compliant with his current medications. Patient also states that he has been experiencing increasing shortness of breath with exertion for the past 2 weeks, ever since he was last discharged from the hospital. Also endorses worsening lower leg edema bilaterally. No chest pain/pressure, palpitations. No fever, chills, vomiting. In the ED patient was afebrile with a BP of 124/60 and initially satting 94 on 4 L nasal cannula, improved to 99 on RA. Labs were significant for no leukocytosis, H&H of 8.8/25.8, potassium slightly low at 3.2, elevated BUN of 30 (near baseline), creatinine of 4.91 (near baseline), troponin slightly elevated at 38.0, BNP elevated at 256, total protein of 4.3 (near baseline). Initial CXR showed increased left basilar opacity which could represent atelectasis or pneumonia. Follow-up chest x-ray showed small pleural effusions with no dense consolidation. EKG showed normal sinus rhythm with no acute ischemic changes. Pt was treated with Reglan for nausea. Pt will be admitted to the hospital for treatment and evaluation of syncopal episode in the setting of acute CHF exacerbation, severe aortic stenosis, and CKD the 4. Review of Systems Review of Systems: Lightheadedness, dizziness, syncope Nausea, upset stomach Worsening shortness of breath x2 weeks The chest pain/pressure, palpitations No fever, chills, vomiting Yes all other systems are reviewed and are negative [facility] Medical History Acute hypokalemia Acute on chronic renal failure Anasarca associated with disorder of kidney Anasarca associated with disorder of kidney Aortic stenosis CHF (congestive heart failure), NYHA class I CKD (chronic kidney disease) stage 3, GFR 30-59 ml/min Congestive heart failure Congestive heart failure Diabetes 1.5, managed as type 2 Diverticulosis Hiatal hernia History of small bowel obstruction Hyperlipidemia Hypertension 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 Social History Household Members: None Housing: Apartment Do you presently have visiting nurse or other home services: No Unable to assess alcohol history related to: Unknown Alcohol intake: former Patient Tobacco Use Status: Former Tobacco user Second Hand Smoke Exposure: No Advance Directives: No Advance Directives Date on File: 05/01/20 service: No Current occupational status: unemployed and disabled Meds Allergies Allergy/AdvReac Type Severity Reaction Status Date / Time Penicillins Allergy Unknown UNKWN Verified 07/24/22 09:42 Active Medications: Current Medications Pharmacy Consult (Consult Rx Perform Med Rec) 1 each MISCELLANE ONCE PRN PRN Reason: Consult order Home Medications Medication Instructions Recorded Confirmed Last Taken Type levothyroxine 75 mcg tablet 75 mcg PO DAILY 06/27/20 07/24/22 07/24/22 History atorvastatin 40 mg tablet 40 mg PO DAILY 02/10/22 07/24/22 07/24/22 History lisinopril 2.5 mg tablet 2.5 mg PO DAILY 02/10/22 07/24/22 07/24/22 History metolazone 2.5 mg tablet 2.5 mg PO DAILY 02/10/22 07/24/22 07/24/22 History spironolactone 25 mg tablet 25 mg PO DAILY 02/10/22 07/24/22 07/24/22 History torsemide 20 mg tablet 40 mg PO BID 05/04/22 07/24/22 07/24/22 History acetaminophen 500 mg tablet 1 tab PO Q8H PRN Pain 07/24/22 07/24/22 Unknown History Physical Exam Vital Signs and Narrative: Vital Signs: Last Vital Signs Temp 97.8 F 07/24/22 09:42 Pulse 68 07/24/22 11:37 Resp 16 07/24/22 11:37 BP 121/66 07/24/22 11:37 Pulse Ox 99 07/24/22 11:37 O2 Del Method 07/24/22 11:37 Oxygen Flow Rate 4 07/24/22 09:42 BMI result Body Mass Index 38.9 Constitutional: Alert, in no acute distress. Mental Status: Oriented to person, place and time. Eyes: Pupils are equal, round, and reactive to light. Ear, Nose, and Throat: Oropharynx clear, mucous membranes moist. Ears and nose without deformities. Trachea midline. Respiratory: Clear to auscultation bilaterally. No wheezing, rales, or rhonchi. Cardiovascular: S1, S2 regular. Crescendo-decrescendo 3/6 murmur radiating to the carotids. Gastrointestinal: Abdomen distended, soft, non-tender. Normal bowel sounds. Neurologic: Cranial nerves II-XI are grossly intact. No focal neurological deficits. Moves all extremities spontaneously. Skin: No rashes or lesions noted. Musculoskeletal: No cyanosis or clubbing. Extremities: 2+ pitting edema bilaterally. Psychiatric: Normal mood and affect. Results Labs 07/24/22 10:07 07/24/22 10:07 Labs: Laboratory Results - last 24 hr 07/24/22 07/24/22 07/24/22 10:07 10:07 10:07 MCV 94.2 MCH 32.1 MCHC 34.1 RDW 14.3 Plt Count 320 D MPV 10.1 Immature Gran % (Auto) 0.8 H Neut % (Auto) 66.7 Lymph % (Auto) 20.0 [place] % (Auto) 7.7 Eos % (Auto) 4.0 Baso % (Auto) 0.8 Lymph # (Auto) 1.6 [place] # (Auto) 0.6 Eos # (Auto) 0.3 Baso # (Auto) 0.1 Abs Immat Gran (auto) 0.06 H Absolute Neuts (auto) 5.3 Absolute Nucleated RBC 0.000 Nucleated RBC % (auto) 0.0 PT 10.4 INR 0.9 Anion Gap 14 Estim Creat Clear Calc 20.0 Estimated GFR 12 Random Glucose 132 H Calcium 8.6 D Total Bilirubin 0.2 AST 16 ALT 9 Alkaline Phosphatase 52 D Troponin I High Sens B-Natriuretic Peptide Total Protein 4.3 L Albumin 2.1 L COVID-19 ([facility]) COVID-19 Clin Com 07/24/22 07/24/22 07/24/22 10:07 10:07 10:07 MCV MCH MCHC RDW Plt Count MPV Immature Gran % (Auto) Neut % (Auto) Lymph % (Auto) [place] % (Auto) Eos % (Auto) Baso % (Auto) Lymph # (Auto) [place] # (Auto) Eos # (Auto) Baso # (Auto) Abs Immat Gran (auto) Absolute Neuts (auto) Absolute Nucleated RBC Nucleated RBC % (auto) PT INR Anion Gap Estim Creat Clear Calc Estimated GFR Random Glucose Calcium Total Bilirubin AST ALT Alkaline Phosphatase Troponin I High Sens 38.0 H D B-Natriuretic Peptide 256 H Total Protein Albumin COVID-19 ([facility]) Negative COVID-19 Clin Com See Note Imaging Radiologist's Impressions: Impressions Chest X-Ray 07/24/22 10:17 IMPRESSION: Increased left basilar opacity which could represent atelectasis or pneumonia. Chest X-Ray 07/24/22 11:25 IMPRESSION: Small pleural effusions. No dense consolidation. Assessment and Plan (1) Syncope: Status: Acute (2) Aortic stenosis: Status: Acute (3) Renal failure, chronic: Status: Acute (4) Hypertension: Status: Acute (5) Heart failure with preserved ejection fraction: Status: Acute Plan Pt is a 66-year-old male with a PMH significant for okw-xdcteds-qugluiydl DM 2, CKD stage 4, HLD, HTN, hypothyroidism, CHF, and anasarca?who presents to the ED after a syncopal episode. Pt will be admitted to the hospital for treatment and evaluation of syncopal episode in the setting acute CHF exacerbation, severe aortic stenosis, and CKD 4. Acute exacerbation of CHF with preserved ejection fraction X-ray shows pleural effusions, elevated BNP of 256 (baseline 40s), physical exam shows 2+ pitting edema of lower legs bilaterally, distended abdomen Patient has been noncompliant with his home medications On last admission of 06/26/2022, patient was treated with IV Lasix 120 mg Q 8, Aldactone 25 mg, and metolazone 5 mg daily Bumex 1mg IV bid Continue metolazone, spironolactone Hold torsemide Closely monitor I/O, follow lytes, mg Cardiology consult Syncopal episode Multifactorial: likely secondary to severe aortic stenosis and CHF exacerbation in the setting of CKD 4, less likely neurologic/seizure Treat as above Aortic stenosis, severe Cardiology consult CKD stage 4 Creatinine 4.91 and estimated creatinine clearance 20.0, at baseline Nephrology consult Xqy-bwtcttx-mkxkpgsld diabetes type 2 Patient longer seems to be on any home meds SSI Anemia of chronic disease Patient's H&H 8.8/25.8, slightly below baseline Monitor labs Hypothyroidism Continue levothyroxine HTN Continue home meds Full Code Attending:?Dr Welch. DVT Prophylaxis: Heparin Pt will require a hospitalization of at least two nights for treatment of?syncopal episode in the setting CHF exacerbation, severe aortic stenosis, and CKD 4. Time Spent With Patient Time: Total time managing care of this patient today ____ minutes. Quality Stroke Does the patient have a stroke diagnosis?: No VTE Prior VTE?: No VTE Risk Level:: Medical - moderate - high VTE Device Contraindication: Treatment Not Indicated VTE Drug Contraindication: N/A - Med Ordered
[2022-07-24 16:00] VITALS: BP 123/71; PULSE 80; RESP 17; TEMP 36.5; O2SAT 100
[2022-07-24] MEDS: Bumetanide 1 MG/4 ML VIAL IVPUSH (18:13)
[2022-07-24] MEDS: 0.9 % Sodium Chloride Flush 3 ML SYRINGE IVFLUSH ×2 (18:14→23:44)
[2022-07-24 18:21] LABS: Glucose, Whole Blood 118 mg/dL (60-115)
--- NOTE | 2022-07-24 19:46 | PC.NURSE ---
report received from SALOME Sandhu pt is alert and oriented, resting in bed. no signs of acute distress notice. breathing equally unlabored Report given to SALOME Mak
--- NOTE | 2022-07-24 19:52 | PC.NURSE ---
K 3.2 in am ,Dr. Acuna notified
[2022-07-24 20:00] VITALS: BP 139/70; PULSE 92; RESP 18; TEMP 36.8; O2SAT 98
[2022-07-24] MEDS: Potassium Chloride Packet 20 MEQ PACKET 40 MEQ PO (20:49)
[2022-07-24] MEDS: Heparin Sodium,Porcine 5,000 UNIT/ML VIAL 5000 UNIT SUBCUT (20:52)
[2022-07-24 23:45] VITALS: BP 134/67; PULSE 81; RESP 18; TEMP 36.5; O2SAT 99
[2022-07-25 04:00] VITALS: BP 132/64; PULSE 75; RESP 18; TEMP 36.4; O2SAT 99
[2022-07-25] MEDS: Heparin Sodium,Porcine 5,000 UNIT/ML VIAL 5000 UNIT SUBCUT ×2 (05:51→14:17)
[2022-07-25 06:25] LABS: Hematocrit 26.9 % (42.0-52.0); Mean Corpuscular HGB Conc 33.5 g/dl (31.0-36.0); Mean Corpuscular Hemoglobin 31.9 pg (27.0-33.0); Mean Corpuscular Volume 95.4 fL (80.0-98.0); Mean Platelet Volume 10.2 fL (9.4-12.4); Platelet Count 310 X10*3/uL (160-400); Red Blood Count 2.82 X10*6/uL (4.60-5.80); Red Cell Distribution Width 14.3 % (11.0-16.0); White Blood Count 7.8 X10*3/uL (4.8-10.8)
[2022-07-25 06:44] LABS: Anion Gap 13 (12-20); Blood Urea Nitrogen 31 mg/dL (9-16); Calcium 8.7 mg/dL (8.4-10.2); Carbon Dioxide 16 mmol/L (22-29); Chloride 116 mmol/L (96-108); Creatinine Clr Calc Pharmacy 19.9; Estimated Glomerular Filt Rate 12; Glucose Random 87 mg/dL (60-115); Magnesium 2.2 mg/dL (1.6-2.6); Sodium 141 mmol/L (135-145)
[2022-07-25 07:53] LABS: Glucose, Whole Blood 90 mg/dL (60-115)
[2022-07-25 08:00] VITALS: BP 125/72; PULSE 77; RESP 18; TEMP 36.7; O2SAT 98
[2022-07-25] MEDS: Bumetanide 1 MG/4 ML VIAL 2 MG IVPUSH ×2 (08:58→17:31)
[2022-07-25] MEDS: 0.9 % Sodium Chloride Flush 3 ML SYRINGE IVFLUSH ×2 (08:58→17:31)
[2022-07-25] MEDS: amLODIPine Besylate 5 MG TABLET PO (09:00)
[2022-07-25] MEDS: Levothyroxine Sodium 75 MCG TABLET PO (09:00)
[2022-07-25] MEDS: lisinopriL 2.5 MG TABLET PO (09:00)
[2022-07-25] MEDS: Spironolactone 25 MG TABLET PO (09:00)
[2022-07-25] MEDS: Atorvastatin Calcium 40 MG TABLET PO (09:00)
[2022-07-25] MEDS: metOLazone 2.5 MG TABLET PO (09:00)
--- NOTE | 2022-07-25 09:10 | P.PNIM_ITS ---
Subjective Subjective Date of Service: 07/25/22 Interval History: cc: syncope interval history:improved Physical Exam Vital Signs: Vital Signs: Last Vital Signs Temp 98.0 F 07/25/22 08:00 Pulse 77 07/25/22 08:00 Resp 18 07/25/22 08:00 BP 125/72 07/25/22 08:00 Pulse Ox 98 07/25/22 08:00 O2 Del Method 07/25/22 08:00 Oxygen Flow Rate 4 07/24/22 09:42 BMI result Body Mass Index 38.9 General: AO X 3, no acute distress Resp: CTA bilateral, no accessory muscles used CVS: S1,S2,RRR, edema, murmur GI: soft, non tender, non distended Neuro: motor grossly intact, alert Psych: appropriate affect, appropriate insight Objective Data Active Medications Acetaminophen (Acetaminophen 325 Mg Tablet) 650 mg PO Q6H PRN PRN Reason: Pain, Mild (Pain Scale 1-3) Amlodipine Besylate (Amlodipine Besylate 5 Mg Tablet) 5 mg PO DAILY [facility]; Protocol Last Admin: 07/25/22 09:00 Dose: 5 mg Documented By: DANII Atorvastatin Calcium (Atorvastatin Calcium 40 Mg Tablet) 40 mg PO DAILY [facility] Last Admin: 07/25/22 09:00 Dose: 40 mg Documented By: DANII Bumetanide (Bumetanide 1 Mg/4 Ml Vial) 2 mg IVPUSH BID@0900,1700 [facility]; Protocol Last Admin: 07/25/22 08:58 Dose: 2 mg Documented By: DANII Docusate Sodium (Docusate Sodium 100 Mg Capsule) 100 mg PO DAILY PRN PRN Reason: Constipation Heparin Sodium (Porcine) (Heparin Sodium,Porcine 5,000 Unit/Ml Vial) 5,000 unit SUBCUT Q8H [facility] Last Admin: 07/25/22 05:51 Dose: 5,000 unit Documented By: KATHY Levothyroxine Sodium (Levothyroxine Sodium 75 Mcg Tablet) 75 mcg PO DAILY [facility] Last Admin: 07/25/22 09:00 Dose: 75 mcg Documented By: DANII Lisinopril (Lisinopril 2.5 Mg Tablet) 2.5 mg PO DAILY [facility]; Protocol Last Admin: 07/25/22 09:00 Dose: 2.5 mg Documented By: DANII Metolazone (Metolazone 2.5 Mg Tablet) 2.5 mg PO DAILY [facility] Last Admin: 07/25/22 09:00 Dose: 2.5 mg Documented By: DANII Ondansetron HCl (Ondansetron Hcl 4 Mg/2 Ml Vial) 4 mg IVPUSH Q8H PRN PRN Reason: Nausea and Vomiting Pharmacy Consult (Consult Rx Perform Med Rec) 1 each MISCELLANE ONCE PRN PRN Reason: Consult order Sodium Chloride (0.9 % Sodium Chloride Flush 3 Ml Syringe) 3 ml IVFLUSH QSHIFT [facility] Last Admin: 07/25/22 08:58 Dose: 3 ml Documented By: DANII Spironolactone (Spironolactone 25 Mg Tablet) 25 mg PO DAILY [facility]; Protocol Last Admin: 07/25/22 09:00 Dose: 25 mg Documented By: DANII Labs 07/25/22 05:41 07/25/22 05:41 Labs: Laboratory Results - last 24 hr 07/24/22 07/24/22 07/24/22 10:07 10:07 10:07 MCV 94.2 MCH 32.1 MCHC 34.1 RDW 14.3 Plt Count 320 D MPV 10.1 Immature Gran % (Auto) 0.8 H Neut % (Auto) 66.7 Lymph % (Auto) 20.0 [place] % (Auto) 7.7 Eos % (Auto) 4.0 Baso % (Auto) 0.8 Lymph # (Auto) 1.6 [place] # (Auto) 0.6 Eos # (Auto) 0.3 Baso # (Auto) 0.1 Abs Immat Gran (auto) 0.06 H Absolute Neuts (auto) 5.3 Absolute Nucleated RBC 0.000 Nucleated RBC % (auto) 0.0 PT 10.4 INR 0.9 Anion Gap 14 Estim Creat Clear Calc 20.0 Estimated GFR 12 POC Glucose Random Glucose 132 H Calcium 8.6 D Magnesium Total Bilirubin 0.2 AST 16 ALT 9 Alkaline Phosphatase 52 D Troponin I High Sens B-Natriuretic Peptide Total Protein 4.3 L Albumin 2.1 L COVID-19 ([facility]) COVID-19 Clin Com 07/24/22 07/24/22 07/24/22 10:07 10:07 10:07 MCV MCH MCHC RDW Plt Count MPV Immature Gran % (Auto) Neut % (Auto) Lymph % (Auto) [place] % (Auto) Eos % (Auto) Baso % (Auto) Lymph # (Auto) [place] # (Auto) Eos # (Auto) Baso # (Auto) Abs Immat Gran (auto) Absolute Neuts (auto) Absolute Nucleated RBC Nucleated RBC % (auto) PT INR Anion Gap Estim Creat Clear Calc Estimated GFR POC Glucose Random Glucose Calcium Magnesium Total Bilirubin AST ALT Alkaline Phosphatase Troponin I High Sens 38.0 H D B-Natriuretic Peptide 256 H Total Protein Albumin COVID-19 ([facility]) Negative COVID-19 Clin Com See Note 07/24/22 07/25/22 07/25/22 18:17 05:41 05:41 MCV 95.4 MCH 31.9 MCHC 33.5 RDW 14.3 Plt Count 310 MPV 10.2 Immature Gran % (Auto) Neut % (Auto) Lymph % (Auto) [place] % (Auto) Eos % (Auto) Baso % (Auto) Lymph # (Auto) [place] # (Auto) Eos # (Auto) Baso # (Auto) Abs Immat Gran (auto) Absolute Neuts (auto) Absolute Nucleated RBC 0.000 Nucleated RBC % (auto) 0.0 PT INR Anion Gap 13 Estim Creat Clear Calc 19.9 Estimated GFR 12 POC Glucose 118 H Random Glucose 87 Calcium 8.7 Magnesium 2.2 Total Bilirubin AST ALT Alkaline Phosphatase Troponin I High Sens B-Natriuretic Peptide Total Protein Albumin COVID-19 ([facility]) COVID-19 Clin Com 07/25/22 07:47 MCV MCH MCHC RDW Plt Count MPV Immature Gran % (Auto) Neut % (Auto) Lymph % (Auto) [place] % (Auto) Eos % (Auto) Baso % (Auto) Lymph # (Auto) [place] # (Auto) Eos # (Auto) Baso # (Auto) Abs Immat Gran (auto) Absolute Neuts (auto) Absolute Nucleated RBC Nucleated RBC % (auto) PT INR Anion Gap Estim Creat Clear Calc Estimated GFR POC Glucose 90 Random Glucose Calcium Magnesium Total Bilirubin AST ALT Alkaline Phosphatase Troponin I High Sens B-Natriuretic Peptide Total Protein Albumin COVID-19 ([facility]) COVID-19 Clin Com Assessment and Plan (1) Heart failure with preserved ejection fraction: Status: Acute Plan 66-year-old male with a PMH significant for?[id number] DM 2, CKD stage V, HLD, HTN, hypothyroidism, severe , presented with syncope syncope likely due to severe cardio eval acute on chronic diastolic chf with severe iv bumex, metolazone, monitor bmp CKD V with proteinuria nephro eval DM insulin chronic anemia due to CKD V, stable Hypothyroidism Continue levothyroxine HTN amlodipine, lisinopril, aldactone Full Code DVT Prophylaxis: Heparin reason for continued hospitalization:iv diuresis Time Spent With Patient Time: Total time managing care of this patient today ____ minutes. Quality Stroke Does the patient have a stroke diagnosis?: No VTE Prior VTE?: No VTE Risk Level:: Medical - moderate - high VTE Device Contraindication: Treatment Not Indicated VTE Drug Contraindication: N/A - Med Ordered
--- NOTE | 2022-07-25 10:39 | P.CONCA_ITS ---
History of Present Illness History of Present Illness Date of Service: 07/25/22 Chief complaint: Syncope Narrative: This is a cardiology consultation regarding syncope and aortic stenosis. Patient has a history of aortic stenosis but he was not truly symptomatic and also had advanced renal insufficiency and hence he was only monitored. Most recently seen in clinic in April at that time he stated that he did have any symptoms. Hence a 3 month appointment was scheduled. In the interim, he states that he was walking from [employer] with a cart and try to get to his car and in that context, seems like he passed out. Exertional sounding syncope. Echocardiogram at shown worsening aortic stenosis and hence we are asked to see him. Otherwise, in the last couple weeks or so he has also had some shortness of breath. No clear anginal-type chest pains. Review of Systems Review of Systems: Yes all other systems are reviewed and are negative Constitutional: Constitutional: Reports as per HPI Eyes: Eyes: Reports as per HPI ENT: Reports as per HPI Cardiovascular: Cardiovascular: Reports as per HPI, Denies acrocyanosis, Denies cool extremities, Denies chest pain, Reports leg edema, Denies lightheadedness, Denies palpitations and Reports dyspnea Respiratory: Respiratory: Reports as per HPI, Reports no additional respiratory complaints and Reports dyspnea Gastrointestinal: Gastrointestinal: Reports as per HPI and Reports no additional gastrointestinal complaints Genitourinary: Genitourinary: Reports no additional male genitourinary complaints and Reports as per HPI Musculoskeletal: Musculoskeletal: Reports no additional musculoskeletal complaints and Reports as per HPI Integumentary/Breasts: Skin/Breast: Reports system reviewed and no additional complaints, except as docu Neurologic: Reports system reviewed and no additional complaints, except as documented and Reports as per HPI Psychiatric: Psychiatric: Reports no additional psychiatric complaints and Reports as per HPI Endocrine: Endocrine: Reports no additional endocrine complaints, Reports as per HPI and Denies palpitations Hematologic/Lymphatic: Hematologic/Lymphatic: Reports no additional hematologic/lymphatic complaints and Reports as per HPI Allergic/Immunologic: Allergic/Immunologic: Reports no additional allergic/ immunologic complaints and Reports as per HPI 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 Pertinent family history: Does not recall any major medical issues in family. Social History Social History Household Members: None Housing: Apartment Do you presently have visiting nurse or other home services: No Unable to assess alcohol history related to: Unknown Alcohol intake: former Patient Tobacco Use Status: Former Tobacco user Quit Date: 5 years ago Years Smoked: 30 Second Hand Smoke Exposure: No Advance Directives Date on File: 05/01/20 service: No Current occupational status: unemployed and disabled Meds Allergies Allergy/AdvReac Type Severity Reaction Status Date / Time Penicillins Allergy Unknown UNKWN Verified 07/24/22 09:42 Active Medications: Current Medications Acetaminophen (Acetaminophen 325 Mg Tablet) 650 mg PO Q6H PRN PRN Reason: Pain, Mild (Pain Scale 1-3) Amlodipine Besylate (Amlodipine Besylate 5 Mg Tablet) 5 mg PO DAILY [facility]; Protocol Last Admin: 07/25/22 09:00 Dose: 5 mg Atorvastatin Calcium (Atorvastatin Calcium 40 Mg Tablet) 40 mg PO DAILY [facility] Last Admin: 07/25/22 09:00 Dose: 40 mg Bumetanide (Bumetanide 1 Mg/4 Ml Vial) 2 mg IVPUSH BID@0900,1700 [facility]; Protocol Last Admin: 07/25/22 08:58 Dose: 2 mg Docusate Sodium (Docusate Sodium 100 Mg Capsule) 100 mg PO DAILY PRN PRN Reason: Constipation Heparin Sodium (Porcine) (Heparin Sodium,Porcine 5,000 Unit/Ml Vial) 5,000 unit SUBCUT Q8H [facility] Last Admin: 07/25/22 05:51 Dose: 5,000 unit Levothyroxine Sodium (Levothyroxine Sodium 75 Mcg Tablet) 75 mcg PO DAILY [facility] Last Admin: 07/25/22 09:00 Dose: 75 mcg Lisinopril (Lisinopril 2.5 Mg Tablet) 2.5 mg PO DAILY [facility]; Protocol Last Admin: 07/25/22 09:00 Dose: 2.5 mg Metolazone (Metolazone 2.5 Mg Tablet) 2.5 mg PO DAILY [facility] Last Admin: 07/25/22 09:00 Dose: 2.5 mg Ondansetron HCl (Ondansetron Hcl 4 Mg/2 Ml Vial) 4 mg IVPUSH Q8H PRN PRN Reason: Nausea and Vomiting Pharmacy Consult (Consult Rx Perform Med Rec) 1 each MISCELLANE ONCE PRN PRN Reason: Consult order Sodium Chloride (0.9 % Sodium Chloride Flush 3 Ml Syringe) 3 ml IVFLUSH QSHIFT [facility] Last Admin: 07/25/22 08:58 Dose: 3 ml Spironolactone (Spironolactone 25 Mg Tablet) 25 mg PO DAILY [facility]; Protocol Last Admin: 07/25/22 09:00 Dose: 25 mg Home Medications Medication Instructions Recorded Confirmed Last Taken Type levothyroxine 75 mcg tablet 75 mcg PO DAILY 06/27/20 07/24/22 07/24/22 History atorvastatin 40 mg tablet 40 mg PO DAILY 02/10/22 07/24/22 07/24/22 History lisinopril 2.5 mg tablet 2.5 mg PO DAILY 02/10/22 07/24/22 07/24/22 History metolazone 2.5 mg tablet 2.5 mg PO DAILY 02/10/22 07/24/22 07/24/22 History spironolactone 25 mg tablet 25 mg PO DAILY 02/10/22 07/24/22 07/24/22 History torsemide 20 mg tablet 40 mg PO BID 05/04/22 07/24/22 07/24/22 History acetaminophen 500 mg tablet 1 tab PO Q8H PRN Pain 07/24/22 07/24/22 Unknown History Physical Exam Vital Signs: Vital Signs: Last Vital Signs Temp 98.0 F 07/25/22 08:00 Pulse 77 07/25/22 08:00 Resp 18 07/25/22 08:00 BP 125/72 07/25/22 08:00 Pulse Ox 98 07/25/22 08:00 O2 Del Method 07/25/22 08:00 Oxygen Flow Rate 4 07/24/22 09:42 BMI result Body Mass Index 38.9 Const: General: comfortable and no acute distress Orientation/consciousness: patient oriented x3 HEENT: Other: Unremarkable Head: Yes normal to inspection Neck: Neck: Yes normal visual inspection Chest: Chest palpation & inspection: normal inspection of the chest Resp: Auscultation: clear to auscultation bilaterally Cardio: Palpation: normal PMI Heart sounds: S1 normal heart sound present, S2 abnormal (Soft), no gallops, Murmur heart sound present systolic III/ and at the right sternal border and no rubs GI: Palpation (GI): Soft to palpation Back/Spine/Pelvis: Other: unremarkable Skin: General skin exam: no rashes or lesions noted Neuro: General: patient oriented x3 Extrem: Other: 1 to 2+ edema. General: Yes normal to inspection Psych: Mental Status: mental status grossly normal Objective Labs and Meds 07/25/22 05:41 07/25/22 05:41 Lab results: Laboratory Results - last 24 hr 07/24/22 07/24/22 07/25/22 10:07 18:17 05:41 WBC 7.8 RBC 2.82 L Hgb 9.0 L Hct 26.9 L MCV 95.4 MCH 31.9 MCHC 33.5 RDW 14.3 Plt Count 310 MPV 10.2 Absolute Nucleated RBC 0.000 Nucleated RBC % (auto) 0.0 Sodium Potassium Chloride Carbon Dioxide Anion Gap BUN Creatinine Estim Creat Clear Calc Estimated GFR POC Glucose 118 H Random Glucose Calcium Magnesium COVID-19 ([facility]) Negative COVID-19 Clin Com See Note 07/25/22 07/25/22 05:41 07:47 WBC RBC Hgb Hct MCV MCH MCHC RDW Plt Count MPV Absolute Nucleated RBC Nucleated RBC % (auto) Sodium 141 Potassium 4.0 D Chloride 116 H Carbon Dioxide 16 L Anion Gap 13 BUN 31 H Creatinine 4.93 H* Estim Creat Clear Calc 19.9 Estimated GFR 12 POC Glucose 90 Random Glucose 87 Calcium 8.7 Magnesium 2.2 COVID-19 ([facility]) COVID-19 Clin Com ECG Interpretation: EKG with sinus rhythm at 78/Min; no significant ST-T changes and otherwise unremarkable. Imaging Radiologist's impression: Impressions Chest X-Ray 07/24/22 11:25 IMPRESSION: Small pleural effusions. No dense consolidation. Assessment and Plan (1) Aortic stenosis: Status: Acute (2) Nephrotic syndrome: Status: Acute (3) CKD (chronic kidney disease), stage V: Status: Acute Plan High sensitivity troponin 38. Could be just from renal insufficiency. However, slightly above his prior levels. Cardiac BNP is 256. Echocardiogram with LVEF of 68% and moderate LVH. Peak gradient across aortic valve is 94 mm Hg, mean 60 mm Hg and calculated valve area of 0.76 sq cm. Consistent with severe aortic stenosis. This has progressed from prior study. Overall, exertional sounding syncope that could be from severe aortic stenosis. Ideally, needs to go for diagnostic catheterization followed by valve replacement, either surgical or transcatheter. However, he has advanced kidney disease and creatinine is 4.9. Could go into acute renal failure post edel terization. Will need Nephrology input before proceeding. Otherwise, we will transfer to [facility] for further care. Discussed with patient. Discussed with . Time Spent With Patient Time: Total time managing care of this patient today 70 minutes. Procedures Date of Service Date of Service: 07/25/22
[2022-07-25 11:43] LABS: Glucose, Whole Blood 109 mg/dL (60-115)
--- NOTE | 2022-07-25 12:53 | PM.DS ---
DS: Providers Provider Date of Service: 07/25/22 Date of admission: 07/24/22 13:36 Primary care physician: Segundo Tapia MD Consults: 07/24/22 13:41 Consult to Cardiology Routine Consulting Provider: Parveen Hooker Reason for consultation: CHF, Aortic stenosis, syncope Has provider been notified: No Consult to Nephrology Routine Consulting Provider: Komal Sanchez Reason for consultation: CKD4 Has provider been notified: No DS: Diagnosis Discharge Diagnosis (1) Aortic stenosis: Status: Acute (2) Nephrotic syndrome: Status: Acute (3) CKD (chronic kidney disease), stage V: Status: Acute DS: Summary Hospital Course Hospital Course: from initial hpi: Chief Complaint: Syncope Pt is a 66-year-old male with a PMH significant for?rvg-[id number] DM 2, CKD stage 4, HLD, HTN, hypothyroidism, CHF, and anasarca?who presents to the ED after a syncopal episode.? Patient states that he was at [employer] in [place] with his father buying groceries and when he went to get into the car?felt lightheaded and dizzy and then ?blacked out?.? Patient's father, who is at bedside, says that his son grabbed that his chest, said ?I can not breathe,? and then ?folded over,? ending up half in and half out of the car.? Father immediately went into the store to call for EMS and says that he is uncertain but did not see any tonic clonic like movements.? EMS immediately arrived and patient revived after 5-10 minutes.? When patient awoke he was nauseous, with an upset stomach, and confused for another 5-10 minutes? Patient states this is the 1st time he has experienced an episode like this.? Patient denies biting his tongue, starting new medications, but he does say he has been not compliant with his current medications.? Patient also states that he has been experiencing increasing shortness of breath with exertion for the past 2 weeks, ever since he was last discharged from the hospital.? Also endorses worsening lower leg edema bilaterally. No chest pain/pressure, palpitations.? No fever, chills, vomiting. In the ED patient was afebrile with a BP of 124/60 and initially satting 94 on 4 L nasal cannula, improved to 99 on RA. Labs were significant for no leukocytosis, H&H of 8.8/25.8, potassium slightly low at 3.2, elevated BUN of 30 (near baseline), creatinine of 4.91 (near baseline), troponin slightly elevated at 38.0, BNP elevated at 256, total protein of 4.3 (near baseline).? Initial CXR showed increased left basilar opacity which could represent atelectasis or pneumonia. Follow-up chest x-ray showed small pleural effusions with no dense consolidation.? EKG showed normal sinus rhythm with no acute ischemic changes. Pt was treated with Reglan for nausea. Pt will be admitted to the hospital for treatment and evaluation of syncopal episode in the setting of acute CHF exacerbation, severe aortic stenosis, and CKD the 4. hospital course: Patient was admitted for syncope, likely due to severe aortic stenosis. Echocardiogram showed worsening of stenosis. He was seen by Cardiology recommended transfer to [facility]. Patient also noted to have CKD 5 with proteinuria. For his diabetes continue insulin. For chronic anemia this was due to CKD 5 and is stable. For hypothyroidism use continue on Synthroid. For attention he was continued on amlodipine, lisinopril, Aldactone. Patient will be discharged to [facility]. Time Spent with Patient Time attestation: Total time managing care of this patient today ____ minutes. Discharge coordination time: Greater than 30 minutes Quality: Safe Use of Opioids Does Pt have an Active Cancer Diagnosis on the Problem List?: No Quality: Stroke Does the patient have a stroke diagnosis?: No Physical Exam Vital Signs: Vital Signs: Last Vital Signs Temp 98.0 F 07/25/22 08:00 Pulse 77 07/25/22 08:00 Resp 18 07/25/22 08:00 BP 125/72 07/25/22 08:00 Pulse Ox 98 07/25/22 08:00 O2 Del Method 07/25/22 08:00 Oxygen Flow Rate 4 07/24/22 09:42 BMI result Body Mass Index 38.9 Const: General: comfortable and no acute distress Orientation/consciousness: patient oriented x3 HEENT: Other: Unremarkable Head: Yes normal to inspection Neck: Neck: Yes normal visual inspection Chest: Chest palpation & inspection: normal inspection of the chest Resp: Auscultation: clear to auscultation bilaterally Cardio: Palpation: normal PMI Heart sounds: S1 normal heart sound present, S2 abnormal (Soft), no gallops, Murmur heart sound present systolic III/ and at the right sternal border and no rubs GI: Palpation (GI): Soft to palpation Back/Spine/Pelvis: Other: unremarkable Skin: General skin exam: no rashes or lesions noted Neuro: General: patient oriented x3 Extrem: Other: 1 to 2+ edema. General: Yes normal to inspection Psych: Mental Status: mental status grossly normal DS: Data Data Completed and Pending Completed studies during hospitalization [Text1]: Procedures Extraction of Right Inguinal Lymphatic, Percutaneous Approach, Diagnostic (04/23/20) Labs on day of discharge: Laboratory Results - last 24 hr 07/24/22 07/25/22 07/25/22 18:17 05:41 05:41 WBC 7.8 RBC 2.82 L Hgb 9.0 L Hct 26.9 L MCV 95.4 MCH 31.9 MCHC 33.5 RDW 14.3 Plt Count 310 MPV 10.2 Absolute Nucleated RBC 0.000 Nucleated RBC % (auto) 0.0 Sodium 141 Potassium 4.0 D Chloride 116 H Carbon Dioxide 16 L Anion Gap 13 BUN 31 H Creatinine 4.93 H* Estim Creat Clear Calc 19.9 Estimated GFR 12 POC Glucose 118 H Random Glucose 87 Calcium 8.7 Magnesium 2.2 07/25/22 07/25/22 07:47 11:37 WBC RBC Hgb Hct MCV MCH MCHC RDW Plt Count MPV Absolute Nucleated RBC Nucleated RBC % (auto) Sodium Potassium Chloride Carbon Dioxide Anion Gap BUN Creatinine Estim Creat Clear Calc Estimated GFR POC Glucose 90 109 Random Glucose Calcium Magnesium Discharge Plan Discharge Anticipated Discharge Date/Time: 07/25/22 12:49 Patient Disposition: Xfer Acute Care Hospital Discharge Diagnosis: syncope, , CKD V Referrals: Segundo Tapia MD [Primary Care Provider] - 1 Week Discharge Medications: Continued levothyroxine 75 mcg Tablet 75 mcg PO DAILY atorvastatin 40 mg tablet 40 mg PO DAILY amlodipine 5 mg Tablet 5 mg PO DAILY Qty: 30 0RF Protocol: Hold for SBP< HOLD for SBP < : 90 lisinopril 2.5 mg tablet 2.5 mg PO DAILY metolazone 2.5 mg tablet 2.5 mg PO DAILY spironolactone 25 mg tablet 25 mg PO DAILY acetaminophen 500 mg tablet 1 tab PO Q8H PRN (Reason: Pain) torsemide 20 mg tablet 40 mg PO BID Discharge Orders: Discharge Order (Routine); Ordered 07/25/22 Ordered By: Paul Welch Diet: Advance to usual diet Activity on Discharge: As tolerated Stand Alone Forms: Patient Portal Discharge page Care Plan Goals: recovery Health Concerns: ckd v and severe as Plan of Treatment: trasnfer to [facility] [place] [facility] [place] Assessment: see above
--- NOTE | 2022-07-25 14:35 | P.CONNP_ITS ---
History of Present Illness Reason for Consult Consult date: 07/25/22 Reason for consult: Advanced CKD Chief Complaint Chief complaint: Syncope History of Present Illness Narrative: Mr. Angeles is well known to me. 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 He has severe . He presents now with syncope. He has nephrotic syndrome with anasarca refractory to outpatient diuretic regimen including torsemide 80 bid and metolazone 2.5 mg daily for which he was admitted in June and undertook diuresis in the hospital. His creat is 4.9 and eGFR is 12 cc/min. He has no uremic symptoms of anorexia, nausea or vomiting. He is followed by Dr. Ribeiro. He is currently being considered for TAVR or AVR and plans are underway to transfer him to [facility]. He is breathing comfortably and denies chest pain. Review of Systems Review of Systems Lightheadedness, dizziness, syncope Nausea, upset stomach Worsening shortness of breath x2 weeks The chest pain/pressure, palpitations No fever, chills, vomiting Yes all other systems are reviewed and are negative Constitutional: Reports as per HPI and Reports no additional constitutional complaints Eyes: Reports as per HPI Reports system reviewed and no additional complaints, except as documented and Reports as per HPI Cardiovascular: Reports as per HPI, Reports no additional cardiovascular complaints, Denies acrocyanosis, Denies cool extremities, Denies chest pain, Reports leg edema, Denies lightheadedness, Denies palpitations and Reports dyspnea Respiratory: Reports as per HPI, Reports no additional respiratory complaints and Reports dyspnea Gastrointestinal: Reports as per HPI and Reports no additional gastrointestinal complaints Genitourinary: Reports no additional male genitourinary complaints and Reports as per HPI Musculoskeletal: Reports no additional musculoskeletal complaints and Reports as per HPI Skin/Breast: Reports system reviewed and no additional complaints, except as docu Reports system reviewed and no additional complaints, except as documented and Reports as per HPI Psychiatric: Reports no additional psychiatric complaints and Reports as per HPI Endocrine: Reports no additional endocrine complaints, Reports as per HPI and Denies palpitations Hematologic/Lymphatic: Reports no additional hematologic/lymphatic complaints and Reports as per HPI Allergic/Immunologic: Reports no additional allergic/immunologic complaints and Reports as per HPI [facility] Past Medical History Medical History Acute hypokalemia Acute on chronic renal failure Anasarca associated with disorder of kidney Anasarca associated with disorder of kidney Aortic stenosis CHF (congestive heart failure), NYHA class I CKD (chronic kidney disease) stage 3, GFR 30-59 ml/min Congestive heart failure Congestive heart failure Diabetes 1.5, managed as type 2 Diverticulosis Hiatal hernia History of small bowel obstruction Hyperlipidemia Hypertension 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 Pertinent family history: Does not recall any major medical issues in family. Social History Social History Household Members: None Housing: Apartment Do you presently have visiting nurse or other home services: No Unable to assess alcohol history related to: Unknown Alcohol intake: former Patient Tobacco Use Status: Former Tobacco user Quit Date: 5 years ago Years Smoked: 30 Second Hand Smoke Exposure: No Advance Directives Date on File: 05/01/20 service: No Current occupational status: unemployed and disabled Meds Allergies Allergy/AdvReac Type Severity Reaction Status Date / Time Penicillins Allergy Unknown UNKWN Verified 07/24/22 09:42 Active Medications: Current Medications Acetaminophen (Acetaminophen 325 Mg Tablet) 650 mg PO Q6H PRN PRN Reason: Pain, Mild (Pain Scale 1-3) Amlodipine Besylate (Amlodipine Besylate 5 Mg Tablet) 5 mg PO DAILY [facility]; Protocol Last Admin: 07/25/22 09:00 Dose: 5 mg Atorvastatin Calcium (Atorvastatin Calcium 40 Mg Tablet) 40 mg PO DAILY [facility] Last Admin: 07/25/22 09:00 Dose: 40 mg Bumetanide (Bumetanide 1 Mg/4 Ml Vial) 2 mg IVPUSH BID@0900,1700 [facility]; Protocol Last Admin: 07/25/22 08:58 Dose: 2 mg Docusate Sodium (Docusate Sodium 100 Mg Capsule) 100 mg PO DAILY PRN PRN Reason: Constipation Heparin Sodium (Porcine) (Heparin Sodium,Porcine 5,000 Unit/Ml Vial) 5,000 unit SUBCUT Q8H [facility] Last Admin: 07/25/22 14:17 Dose: 5,000 unit Levothyroxine Sodium (Levothyroxine Sodium 75 Mcg Tablet) 75 mcg PO DAILY [facility] Last Admin: 07/25/22 09:00 Dose: 75 mcg Lisinopril (Lisinopril 2.5 Mg Tablet) 2.5 mg PO DAILY [facility]; Protocol Last Admin: 07/25/22 09:00 Dose: 2.5 mg Metolazone (Metolazone 2.5 Mg Tablet) 2.5 mg PO DAILY [facility] Last Admin: 07/25/22 09:00 Dose: 2.5 mg Ondansetron HCl (Ondansetron Hcl 4 Mg/2 Ml Vial) 4 mg IVPUSH Q8H PRN PRN Reason: Nausea and Vomiting Pharmacy Consult (Consult Rx Perform Med Rec) 1 each MISCELLANE ONCE PRN PRN Reason: Consult order Sodium Chloride (0.9 % Sodium Chloride Flush 3 Ml Syringe) 3 ml IVFLUSH QSHIFT [facility] Last Admin: 07/25/22 08:58 Dose: 3 ml Spironolactone (Spironolactone 25 Mg Tablet) 25 mg PO DAILY [facility]; Protocol Last Admin: 07/25/22 09:00 Dose: 25 mg Home Medications Medication Instructions Recorded Confirmed Last Taken Type levothyroxine 75 mcg tablet 75 mcg PO DAILY 06/27/20 07/24/22 07/24/22 History atorvastatin 40 mg tablet 40 mg PO DAILY 02/10/22 07/24/22 07/24/22 History lisinopril 2.5 mg tablet 2.5 mg PO DAILY 02/10/22 07/24/22 07/24/22 History metolazone 2.5 mg tablet 2.5 mg PO DAILY 02/10/22 07/24/22 07/24/22 History spironolactone 25 mg tablet 25 mg PO DAILY 02/10/22 07/24/22 07/24/22 History torsemide 20 mg tablet 40 mg PO BID 05/04/22 07/24/22 07/24/22 History acetaminophen 500 mg tablet 1 tab PO Q8H PRN Pain 07/24/22 07/24/22 Unknown History Physical Exam Vital Signs: Last Vital Signs Temp 98.0 F 07/25/22 08:00 Pulse 77 07/25/22 08:00 Resp 18 07/25/22 08:00 BP 125/72 07/25/22 08:00 Pulse Ox 98 07/25/22 08:00 O2 Del Method 07/25/22 08:00 Oxygen Flow Rate 4 07/24/22 09:42 BMI result Body Mass Index 38.9 Const General: cooperative, comfortable and no acute distress Orientation/consciousness: patient oriented x3 HEENT Other: Unremarkable Head: Yes normal to inspection Face and sinus: Yes normal facial exam Mouth: Normal oral and palatal mucosa present Throat: Yes posterior oropharynx normal Neck Neck: Yes normal visual inspection Chest Chest palpation & inspection: normal inspection of the chest Resp Effort & Inspection: normal respiratory effort and able to speak in complete sentences Auscultation: clear to auscultation bilaterally Cardio Palpation: normal PMI Heart sounds: S1 normal heart sound present, S2 abnormal (Soft), no gallops, Murmur heart sound present systolic III/ and at the right sternal border and no rubs GI Inspection: Yes normal to inspection Palpation (GI): Soft to palpation Back/Spine/Pelvis Other: unremarkable Skin General skin exam: no rashes or lesions noted Rashes: no rashes Neuro General: patient oriented x3 Extrem Other: 1 to 2+ edema. General: Yes normal to inspection Psych Mental Status: mental status grossly normal Results Lab Results 07/25/22 05:41 07/25/22 05:41 Lab results: Chemistry 07/24/22 07/25/22 10:07 05:41 Sodium 141 141 Potassium 3.2 L D 4.0 D Carbon Dioxide 16 L 16 L BUN 30 H 31 H Creatinine 4.91 H* 4.93 H* Calcium 8.6 D 8.7 Hematology 07/24/22 07/25/22 10:07 05:41 WBC 8.0 7.8 Hgb 8.8 L 9.0 L Plt Count 320 D 310 Assessment and Plan (1) CKD (chronic kidney disease), stage V: Status: Acute (2) Nephrotic syndrome: Status: Acute (3) Acidosis, metabolic: Status: Acute (4) Aortic stenosis: Status: Acute (5) Anemia: Status: Acute Plan Pt is hypevolemic He is acidemic due to his renal failure He is not uremic He has severe Recommend: Furosemide 120 q 12 hr and metolazone 5 mg daily He will likely need to initiate dialysis after AVR or TAVR but is very close anyway-unfortunately no AVF Protect R arm from IVs and lab draws Procrit for anemia if iron stores adequate Time Spent With Patient Time: Total time managing care of this patient today ____ minutes. Procedures Date of Service Date of Service: 07/25/22
--- NOTE | 2022-07-25 15:28 | MHC.CM.PN ---
PT REPORT SHE LIVES ALONE AND IS INDEPENDENT WITH CARE HE DENIES USE OF DME OR HOME SERVICES PT DECLINES TO COMPLETE A HCP HE IS JUDD BUSBY PCP: CHACHO HOFFMANN PT REPORTS HE HAS AN APPT WITH [facility] IN A COUPLE OF WEEKS TO BE ASSESSED FOR SERVICE ELIGIBILITY PT REPORTS HE IS NOT INTERESTED IN [facility], HE HAS HAD THEM IN THE PAST AND FEELS THEY ARE A WASTE PT WILL BE TRANSFERRED TO [facility]
[2022-07-25 15:42] VITALS: BP 149/82; PULSE 84; RESP 20; TEMP 36.7; O2SAT 98
== END 2022-07-25 18:00 | disposition short-term general hospital (02) | DRG 291 ==
LOC: HO.ED 11:23 → HO.EDOVER 13:50 → HO.S3 19:27
PROVIDERS: Admitting Provider Student in an Organized Health Care Education/Training Program; Emergency Provider Emergency Medicine; PCP Internal Medicine; Visit Provider Internal Medicine
DX: I13.2 Hypertensive heart and chronic kidney disease with heart failure and with stage 5 chronic kidney disease, or end stage renal disease (principal); I50.33 Acute on chronic diastolic (congestive) heart failure; E87.20 Acidosis, unspecified; N18.4 Chronic kidney disease, stage 4 (severe); N04.9 Nephrotic syndrome with unspecified morphologic changes; E83.52 Hypercalcemia; I35.0 Nonrheumatic aortic (valve) stenosis; E11.22 Type 2 diabetes mellitus with diabetic chronic kidney disease; D63.1 Anemia in chronic kidney disease; E03.9 Hypothyroidism, unspecified; Z20.822 Contact with and (suspected) exposure to COVID-19; Z87.891 Personal history of nicotine dependence; Z88.0 Allergy status to penicillin; Z79.890 Hormone replacement therapy; Z79.899 Other long term (current) drug therapy; E78.5 Hyperlipidemia, unspecified
CPT/HCPCS: 36415; 71045; 71046; 80048; 80053; 82947; 83735; 83880; 84484; 85025; 85027; 85610; 87635; 93005; 93306; 96374; 99284; 99285; J1643; J2765; Q9957

== ENCOUNTER 2022-09-09 13:40 | Emergency (ER) | payer MEDICARE, MEDICAID, SELFPAY ==
[2022-09-09 14:05] VITALS: BP 100/53; PULSE 66; RESP 14; TEMP 37.3; O2SAT 95
--- NOTE | 2022-09-09 14:08 | MHC.EDTECH ---
PCT took patients vitals twice on both arms and each time it was low RN NOTIFIED
[2022-09-09 14:17] VITALS: BP 105/52; PULSE 65; RESP 18; TEMP 36.9; O2SAT 95; BMI 29.2
--- NOTE | 2022-09-09 14:20 | ECG_ITS ---
Test Reason : abd pain Blood Pressure : / mmHG Vent. Rate : 064 BPM Atrial Rate : 064 BPM P-R Int : 162 ms QRS Dur : 096 ms QT Int : 450 ms P-R-T Axes : 027 026 055 degrees QTc Int : 464 ms Normal sinus rhythm Nonspecific ST and T wave abnormality Borderline ECG When compared with ECG of 24-JUL-2022 10:13, No significant changes seen Referred By: Zohra De Luna Electronically Signed By:RUT CUELLO
--- NOTE | 2022-09-09 14:24 | ED.NAVMDI ---
HPI - Nausea/Vomiting/Diarrhea General Chief complaint: Nausea/Vomiting/Diarrhea Stated complaint: +COVID, VOMITING X 1 Time Seen by Provider: 09/09/22 14:11 Source: patient Mode of arrival: ambulatory Limitations: no limitations History of Present Illness HPI Narrative: Up patient comes to the emergency room complaining of 2 episodes of vomiting. Patient states that earlier today he was not feeling well, reported nausea to the nursing home facility staff, they tested him for COVID and patient was informed that he tested positive for COVID-19. Patient denies any chest pain or shortness of breath, no abdominal pain, denies any respiratory symptoms. Related Data Home Medications Medication Instructions Recorded Confirmed levothyroxine 75 mcg tablet 75 mcg PO DAILY 06/27/20 07/24/22 atorvastatin 40 mg tablet 40 mg PO DAILY 02/10/22 07/24/22 lisinopril 2.5 mg tablet 2.5 mg PO DAILY 02/10/22 07/24/22 metolazone 2.5 mg tablet 2.5 mg PO DAILY 02/10/22 07/24/22 spironolactone 25 mg tablet 25 mg PO DAILY 02/10/22 07/24/22 torsemide 20 mg tablet 40 mg PO BID 05/04/22 07/24/22 acetaminophen 500 mg tablet 1 tab PO Q8H PRN Pain 07/24/22 07/24/22 Previous Rx's Medication Instructions Recorded amlodipine 5 mg tablet 5 mg PO DAILY #30 tabs 01/05/22 ondansetron 4 mg disintegrating 4 mg PO Q6H PRN nausea and 09/09/22 tablet vomiting #14 tabs Allergies Allergy/AdvReac Type Severity Reaction Status Date / Time Penicillins Allergy Unknown UNKWN Verified 07/24/22 09:42 Review of Systems Review of Systems: Constitutional : No Weight loss, No Fever, No Chills, No Night Sweats, No Fatigue, No Malaise ENT/Mouth : No Hearing loss, No Ear Pain, No Nasal Congestion, No Sinus Pain, No Hoarseness, No sore throat, No Rhinorrhea, No Swallowing Difficulty Eyes: No Eye Pain, No Swelling, No Redness, No Foreign Body, No Discharge, No Vision Changes Cardiovascular : No Chest Pain, No SOB, No Dyspnea on Exertion, No Orthopnea, No Edema, No Palpitations Respiratory : No Cough, No Sputum, No Wheezing, No Smoke Exposure, No Dyspnea Gastrointestinal : Complaining of nausea and vomiting, No Diarrhea, No Constipation, No abdominal Pain, No Hematochezia, No Melena Genitourinary : no irregular bleeding, No Dysuria, No Urinary Frequency, No Hematuria, No Urinary Incontinence, No Urgency, No Flank Pain, No Urinary Flow Changes, No Hesitancy Musculoskeletal : No joint pain, No Myalgias, No Joint Swelling Skin : No Skin Lesions, No rash Neuro : No Weakness, No Numbness, No Paresthesias, No Loss of Consciousness, No Dizziness, No Headache Psych : No Anxiety/Panic, No Depression, No SI/HI/AH/VH, No Social Issues, Heme/Lymph: No Bruising, No Bleeding,No Lymphadenopathy Endocrine : No Polyuria, No Polydipsia, No Temperature Intolerance [facility] Past Medical History Medical History Acute hypokalemia Acute on chronic renal failure Anasarca associated with disorder of kidney Anasarca associated with disorder of kidney Aortic stenosis CHF (congestive heart failure), NYHA class I CKD (chronic kidney disease) stage 3, GFR 30-59 ml/min Congestive heart failure Congestive heart failure Diabetes 1.5, managed as type 2 Diverticulosis Hiatal hernia History of small bowel obstruction Hyperlipidemia Hypertension 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 Social History Social History Household Members: None Housing: Apartment Do you presently have visiting nurse or other home services: No Unable to assess alcohol history related to: Unknown Alcohol intake: former Patient Tobacco Use Status: Former Tobacco user Quit Date: 5 years ago Years Smoked: 30 Second Hand Smoke Exposure: No Advance Directives: Yes Advance Directives on File: Yes Advance Directives Date on File: 05/01/20 service: No Current occupational status: unemployed and disabled Physical Exam Vital Signs: Vital Signs: Last Vital Signs Temp 99.1 F 09/09/22 15:46 Pulse 66 09/09/22 15:46 Resp 14 09/09/22 15:46 BP 116/61 09/09/22 15:46 Pulse Ox 95 09/09/22 15:46 O2 Del Method 09/09/22 15:46 BMI result Body Mass Index 29.2 Const: Other: Appearance: Alert. Oriented X3. No acute distress. Well-appearing Eyes: Pupils equal, round and reactive to light. ENT: Pharynx normal. Neck: Normal inspection. Neck supple. No lymph nodes noted. No crepitus CVS: Normal heart rate and rhythm. Pulses normal. Normal S1 and S2 Respiratory: No respiratory distress. Breath sounds normal. No Wheezing. No rales Abdomen: Soft and nontender. No rigidity. No distention. Skin: Skin warm and dry. Normal skin color. Normal skin turgor. Extremities: No lower extremity edema. No Lacerations. No Rash Neuro: Oriented X 3. No motor deficit. No sensory deficit. Moving all extremities. No slurred speech. CN 2 through 12 grossly intact Psych: calm, cooperative, normal affect Course Course Course Narrative: -all patient's labs are pending, we will swab the patient and testing for COVID to confirm. -patient is well appearing, looks fairly well hydrated. -patient getting 1 dose of Zofran and IV fluids Medications Administered Discontinued Medications Generic Name Dose Route Start Last Admin Trade Name Freq PRN Reason Stop Dose Admin Sodium Chloride 1,000 mls @ 999 mls/hr 09/09/22 14:18 09/09/22 16:45 Ns IVCONT 09/09/22 15:18 Infused .Q1H1M ONE Infusion Ondansetron HCl 4 mg 09/09/22 14:18 09/09/22 14:44 Ondansetron Hcl 4 Mg/2 Ml Vial IVPUSH 09/09/22 14:19 4 mg ONCE ONE Administration Medical Decision Making Medical Decision Making [facility] Narrative: -patient's labs are at baseline. Creatinine 5.83 is better than in previous labs. -patient overall feeling better. Patient can return to his facility. Differential Diagnosis Differential Diagnoses: The differential diagnosis associated with the presentation includes (COVID, viral syndrome, gastroenteritis) Lab Data [facility] Lab Attestation statement: I reviewed the patient's lab results. 09/09/22 14:40 09/09/22 15:52 Labs: Lab Results 09/09/22 09/09/22 09/09/22 Range/Units 14:40 14:40 14:40 WBC 7.5 (4.8-10.8) X10*3/uL RBC 3.19 L (4.60-5.80) X10*6/uL Hgb 9.6 L (14.0-18.0) g/dl Hct 30.1 L (42.0-52.0) % MCV 94.4 (80.0-98.0) fL MCH 30.1 (27.0-33.0) pg MCHC 31.9 (31.0-36.0) g/dl RDW 15.7 (11.0-16.0) % Plt Count 367 (160-400) X10*3/uL MPV 9.5 (9.4-12.4) fL Immature Gran % (Auto) 0.8 H (0.0-0.4) % Neut % (Auto) 79.3 H (45-73) % Lymph % (Auto) 5.0 L (20-40) % [place] % (Auto) 11.6 H (2-11) % Eos % (Auto) 2.4 (0-4) % Baso % (Auto) 0.9 (0-2) % Lymph # (Auto) 0.4 L (1.2-4.9) X10*3/uL [place] # (Auto) 0.9 (0.1-1.2) X10*3/uL Eos # (Auto) 0.2 (0.0-0.4) X10*3/uL Baso # (Auto) 0.1 (0.0-0.2) X10*3/uL Abs Immat Gran (auto) 0.06 H (0.00-0.03) X10*3/uL Absolute Neuts (auto) 5.9 (2.0-8.3) x10*3/uL Absolute Nucleated RBC 0.000 (0.0-0.012) X10*3/uL Nucleated RBC % (auto) 0.0 (0.0-0.2) /100WBC PT (10.0-13.1) SEC INR (0.9-1.1) Sodium (135-145) mmol/L Potassium (3.3-5.1) mmol/L Chloride (96-108) mmol/L Carbon Dioxide (22-29) mmol/L Anion Gap (12-20) BUN (9-16) mg/dL Creatinine (0.5-1.4) mg/dL Estim Creat Clear Calc Estimated GFR Random Glucose (60-115) mg/dL Lactic Acid 0.9 (0.5-2.0) mmol/L Calcium (8.4-10.2) mg/dL Total Bilirubin (0.0-1.0) mg/dL Direct Bilirubin (0.0-0.5) mg/dL AST (5-37) U/L ALT (0-40) U/L Alkaline Phosphatase (39-117) U/L Troponin I High Sens 25.2 (<3.5-35.0) ng/L Total Protein (6.5-8.0) g/dL Albumin (3.5-5.0) g/dL COVID-19 ([facility]) (Negative) COVID-19 Clin Com 09/09/22 09/09/22 09/09/22 Range/Units 14:40 14:40 15:52 WBC (4.8-10.8) X10*3/uL RBC (4.60-5.80) X10*6/uL Hgb (14.0-18.0) g/dl Hct (42.0-52.0) % MCV (80.0-98.0) fL MCH (27.0-33.0) pg MCHC (31.0-36.0) g/dl RDW (11.0-16.0) % Plt Count (160-400) X10*3/uL MPV (9.4-12.4) fL Immature Gran % (Auto) (0.0-0.4) % Neut % (Auto) (45-73) % Lymph % (Auto) (20-40) % [place] % (Auto) (2-11) % Eos % (Auto) (0-4) % Baso % (Auto) (0-2) % Lymph # (Auto) (1.2-4.9) X10*3/uL [place] # (Auto) (0.1-1.2) X10*3/uL Eos # (Auto) (0.0-0.4) X10*3/uL Baso # (Auto) (0.0-0.2) X10*3/uL Abs Immat Gran (auto) (0.00-0.03) X10*3/uL Absolute Neuts (auto) (2.0-8.3) x10*3/uL Absolute Nucleated RBC (0.0-0.012) X10*3/uL Nucleated RBC % (auto) (0.0-0.2) /100WBC PT 13.3 H (10.0-13.1) SEC INR 1.2 H (0.9-1.1) Sodium 138 (135-145) mmol/L Potassium 4.3 (3.3-5.1) mmol/L Chloride 104 (96-108) mmol/L Carbon Dioxide 26 (22-29) mmol/L Anion Gap 12 (12-20) BUN 22 H (9-16) mg/dL Creatinine 5.93 H* (0.5-1.4) mg/dL Estim Creat Clear Calc 14.4 Estimated GFR 10 Random Glucose 109 (60-115) mg/dL Lactic Acid (0.5-2.0) mmol/L Calcium 7.4 L (8.4-10.2) mg/dL Total Bilirubin 0.3 (0.0-1.0) mg/dL Direct Bilirubin < 0.2 (0.0-0.5) mg/dL AST 11 (5-37) U/L ALT < 6 (0-40) U/L Alkaline Phosphatase 121 H (39-117) U/L Troponin I High Sens (<3.5-35.0) ng/L Total Protein 5.3 L (6.5-8.0) g/dL Albumin 2.2 L (3.5-5.0) g/dL COVID-19 ([facility]) Positive A (Negative) COVID-19 Clin Com See Note Discharge Plan Discharge Clinical Impression: COVID-19, Vomiting Patient Disposition: Home, Self-Care Instructions: Acute Nausea and Vomiting (ED), COVID-19 (Coronavirus Disease 2019) (ED) Additional Instructions: Please follow-up with your primary care physician tomorrow. If you have any worsening or new symptoms, please return to the emergency room or call 911 Prescriptions: New ondansetron 4 mg tablet,disintegrating 4 mg PO Q6H PRN (Reason: nausea and vomiting) Qty: 14 0RF No Action levothyroxine 75 mcg Tablet 75 mcg PO DAILY atorvastatin 40 mg tablet 40 mg PO DAILY amlodipine 5 mg Tablet 5 mg PO DAILY Qty: 30 0RF Protocol: Hold for SBP< HOLD for SBP < : 90 lisinopril 2.5 mg tablet 2.5 mg PO DAILY metolazone 2.5 mg tablet 2.5 mg PO DAILY spironolactone 25 mg tablet 25 mg PO DAILY acetaminophen 500 mg tablet 1 tab PO Q8H PRN (Reason: Pain) torsemide 20 mg tablet 40 mg PO BID
[2022-09-09] MEDS: 0.9 % Sodium Chloride 1,000 ML 999 ML IVCONT (14:41)
[2022-09-09] MEDS: ondansetron HCL 4 MG/2 ML VIAL IVPUSH (14:44)
[2022-09-09 14:52] LABS: MANUAL DIFF FLAG NO
[2022-09-09 14:57] LABS: Basophils Absolute Auto 0.1 X10*3/uL (0.0-0.2); Basophils Percent Auto 0.9 % (0-2); Eosinophils Absolute Auto 0.2 X10*3/uL (0.0-0.4); Eosinophils Percent Auto 2.4 % (0-4); Hematocrit 30.1 % (42.0-52.0); Hemoglobin 9.6 g/dl (14.0-18.0); Imm Gran Abs Auto 0.06 X10*3/uL (0.00-0.03); Imm Gran Pct Auto 0.8 % (0.0-0.4); Lymphocytes Absolute Auto 0.4 X10*3/uL (1.2-4.9); Mean Corpuscular HGB Conc 31.9 g/dl (31.0-36.0); Mean Corpuscular Hemoglobin 30.1 pg (27.0-33.0); Mean Corpuscular Volume 94.4 fL (80.0-98.0); Mean Platelet Volume 9.5 fL (9.4-12.4); Monocytes Absolute Auto 0.9 X10*3/uL (0.1-1.2); Monocytes Percent Auto 11.6 % (2-11); Neutrophils Absolute Auto 5.9 x10*3/uL (2.0-8.3); Neutrophils Percent Auto 79.3 % (45-73); Platelet Count 367 X10*3/uL (160-400); Red Blood Count 3.19 X10*6/uL (4.60-5.80); Red Cell Distribution Width 15.7 % (11.0-16.0); White Blood Count 7.5 X10*3/uL (4.8-10.8)
[2022-09-09 15:02] LABS: INTERNATIONAL NORM RATIO 1.2 (0.9-1.1); Prothrombin Time 13.3 SEC (10.0-13.1)
[2022-09-09 15:04] LABS: Lactic Acid 0.9 mmol/L (0.5-2.0)
[2022-09-09 15:06] LABS: COVID-19 Test Positive (Negative); IDNOW Serial# 16C4AD1C
[2022-09-09 15:13] LABS: Troponin-I High Sensitivity 25.2 ng/L (<3.5-35.0)
[2022-09-09 15:46] VITALS: BP 116/61; PULSE 66; RESP 14; TEMP 37.3; O2SAT 95
--- NOTE | 2022-09-09 16:04 | PC.NURSE ---
patient alert, oriented x4. reports nausea starting today. short term rehab tested for covid and it was positive. denies SOB or CP. able to make needs known. call acharya within reach
[2022-09-09 16:41] LABS: Alanine Aminotransferase < 6 U/L (0-40); Albumin Level 2.2 g/dL (3.5-5.0); Alkaline Phosphatase 121 U/L (39-117); Anion Gap 12 (12-20); Aspartate Amino Transferase 11 U/L (5-37); Bilirubin Direct < 0.2 mg/dL (0.0-0.5); Bilirubin Total 0.3 mg/dL (0.0-1.0); Blood Urea Nitrogen 22 mg/dL (9-16); Calcium 7.4 mg/dL (8.4-10.2); Carbon Dioxide 26 mmol/L (22-29); Chloride 104 mmol/L (96-108); Creatinine Clr Calc Pharmacy 14.4; Estimated Glomerular Filt Rate 10; Glucose Random 109 mg/dL (60-115); Potassium 4.3 mmol/L (3.3-5.1); Sodium 138 mmol/L (135-145); Total Protein 5.3 g/dL (6.5-8.0)
[2022-09-09 18:44] VITALS: BP 124/65; PULSE 71; RESP 15; TEMP 36.6; O2SAT 96
[2022-09-09 19:51] VITALS: BP 108/82; PULSE 74; RESP 18; TEMP 37; O2SAT 96
== END 2022-09-09 19:58 | disposition home or self-care (01) ==
PROVIDERS: Emergency Provider Emergency Medicine; PCP Internal Medicine
DX: U07.1 COVID-19 (principal); R11.0 Nausea; R10.10 Upper abdominal pain, unspecified; Z79.899 Other long term (current) drug therapy; Z87.891 Personal history of nicotine dependence
CPT/HCPCS: 36415; 80048; 80076; 83605; 84484; 85025; 85610; 87635; 93005; 96361; 96374; 99284; J2405

== ENCOUNTER 2022-09-21 06:37 | Outpatient (REF) | payer MEDICARE, MEDICAID, SELFPAY ==
[2022-09-21 06:27] LABS: MANUAL DIFF FLAG NO
[2022-09-21 07:29] LABS: Anion Gap 15 (12-20); Blood Urea Nitrogen 22 mg/dL (9-16); Calcium 7.4 mg/dL (8.4-10.2); Carbon Dioxide 25 mmol/L (22-29); Chloride 101 mmol/L (96-108); Estimated Glomerular Filt Rate 11; Glucose Random 80 mg/dL (60-115); Potassium 3.5 mmol/L (3.3-5.1); Sodium 137 mmol/L (135-145)
[2022-09-21 07:34] LABS: Basophils Percent Auto 0.6 % (0-2); Eosinophils Absolute Auto 0.2 X10*3/uL (0.0-0.4); Eosinophils Percent Auto 4.5 % (0-4); Hematocrit 33.1 % (42.0-52.0); Hemoglobin 10.4 g/dl (14.0-18.0); Imm Gran Abs Auto 0.07 X10*3/uL (0.00-0.03); Imm Gran Pct Auto 1.5 % (0.0-0.4); Lymphocytes Absolute Auto 1.2 X10*3/uL (1.2-4.9); Lymphocytes Percent Auto 25.1 % (20-40); Mean Corpuscular HGB Conc 31.4 g/dl (31.0-36.0); Mean Corpuscular Hemoglobin 29.5 pg (27.0-33.0); Mean Platelet Volume 9.9 fL (9.4-12.4); Monocytes Absolute Auto 0.7 X10*3/uL (0.1-1.2); Monocytes Percent Auto 15.5 % (2-11); Neutrophils Absolute Auto 2.5 x10*3/uL (2.0-8.3); Neutrophils Percent Auto 52.8 % (45-73); Platelet Count 335 X10*3/uL (160-400); Red Blood Count 3.52 X10*6/uL (4.60-5.80); Red Cell Distribution Width 16.7 % (11.0-16.0); White Blood Count 4.7 X10*3/uL (4.8-10.8)
== END 2022-09-21 06:38 | disposition home or self-care (01) ==
LOC: HO.MMNH1L 06:37
PROVIDERS: Visit Provider Family Medicine
DX: I10 Essential (primary) hypertension (principal)
CPT/HCPCS: 36415; 80048; 85025

== ENCOUNTER 2022-09-28 05:45 | Outpatient (REF) | payer MEDICARE, MEDICAID, SELFPAY ==
[2022-09-28 05:37] LABS: MANUAL DIFF FLAG NO
[2022-09-28 06:08] LABS: Basophils Absolute Auto 0.1 X10*3/uL (0.0-0.2); Basophils Percent Auto 1.4 % (0-2); Eosinophils Absolute Auto 0.3 X10*3/uL (0.0-0.4); Eosinophils Percent Auto 4.8 % (0-4); Hematocrit 33.4 % (42.0-52.0); Hemoglobin 10.4 g/dl (14.0-18.0); Imm Gran Abs Auto 0.04 X10*3/uL (0.00-0.03); Imm Gran Pct Auto 0.8 % (0.0-0.4); Lymphocytes Absolute Auto 1.3 X10*3/uL (1.2-4.9); Lymphocytes Percent Auto 24.1 % (20-40); Mean Corpuscular HGB Conc 31.1 g/dl (31.0-36.0); Mean Corpuscular Hemoglobin 29.4 pg (27.0-33.0); Mean Corpuscular Volume 94.4 fL (80.0-98.0); Mean Platelet Volume 9.6 fL (9.4-12.4); Monocytes Absolute Auto 0.9 X10*3/uL (0.1-1.2); Monocytes Percent Auto 16.4 % (2-11); Neutrophils Absolute Auto 2.7 x10*3/uL (2.0-8.3); Neutrophils Percent Auto 52.5 % (45-73); Platelet Count 329 X10*3/uL (160-400); Red Blood Count 3.54 X10*6/uL (4.60-5.80); Red Cell Distribution Width 16.8 % (11.0-16.0); White Blood Count 5.2 X10*3/uL (4.8-10.8)
[2022-09-28 06:36] LABS: Anion Gap 14 (12-20); Blood Urea Nitrogen 21 mg/dL (9-16); Calcium 7.4 mg/dL (8.4-10.2); Carbon Dioxide 26 mmol/L (22-29); Chloride 104 mmol/L (96-108); Estimated Glomerular Filt Rate 11; Glucose Random 66 mg/dL (60-115); Potassium 3.6 mmol/L (3.3-5.1); Sodium 140 mmol/L (135-145)
== END 2022-09-28 05:46 | disposition home or self-care (01) ==
LOC: HO.MMNH1L 05:45
PROVIDERS: Visit Provider Family Medicine
DX: I10 Essential (primary) hypertension (principal)
CPT/HCPCS: 36415; 80048; 85025

== ENCOUNTER 2022-10-03 12:07 | Emergency (ER) | payer MEDICARE, MEDICAID, SELFPAY ==
--- NOTE | ~2022-10-03 | CT_ITS ---
EXAMINATION: CT HEAD WITHOUT CONTRAST CLINICAL INFORMATION: Syncope and head injury COMPARISON: CT head 04/20/2010 TECHNIQUE: Contiguous axial imaging was performed from the skull base to vertex without intravenous administration of contrast. This CT examination was performed using dose optimization techniques as appropriate, variously including the following: *Automated exposure control *Adjustment of mA and/or kV according to patient size (this includes techniques or standardized protocols for targeted exams where dose is matched to indication/reason for exam; i.e. extremities or head) *Use of iterative reconstruction technique DLP: 717 mGy-cm FINDINGS: There is no evidence of acute intracranial hemorrhage or territorial infarction. No abnormal mass effect or midline shift is seen. Ke[place] to white matter differentiation is well preserved. No extra-axial fluid collections are identified. Mild patchy periventricular and deep white matter hypodensities suggesting chronic microangiopathic changes. Ethmoid sinus disease. Otherwise, paranasal sinuses and mastoid air cells are well-aerated. CT/CT head/brain wo IV con IMPRESSION: No CT evidence of acute intracranial hemorrhage or edematous territorial infarction. Ethmoid sinus disease.
[2022-10-03 12:16] VITALS: BP 110/71; BP 128/64; PULSE 78; PULSE 82; RESP 22; TEMP 37; O2SAT 96; BMI 28.1
--- NOTE | 2022-10-03 12:29 | ECG_ITS ---
Test Reason : fall Blood Pressure : / mmHG Vent. Rate : 070 BPM Atrial Rate : 070 BPM P-R Int : 158 ms QRS Dur : 098 ms QT Int : 418 ms P-R-T Axes : 021 027 058 degrees QTc Int : 451 ms Normal sinus rhythm Nonspecific ST and T wave abnormality Abnormal ECG When compared with ECG of 09-SEP-2022 14:44, No significant change was found Referred By: Mary Goodwin Electronically Signed By:Chris Messer
[2022-10-03 12:41] VITALS: BP 114/66; BP 84/48; PULSE 73; PULSE 82
--- NOTE | 2022-10-03 13:00 | ED_ITS ---
HPI - General Adult General Chief complaint: Head Injury Stated complaint: Fall, head strike w/ LOC per EMS Time Seen by Provider: 10/03/22 12:11 Source: patient and EMS Mode of arrival: EMS Limitations: no limitations History of Present Illness HPI narrative: 66-year-old male with history of chronic renal failure on hemodialysis, patient received dialysis this morning for close to 5 hours as reported to the patient, patient after dialysis been having lightheadedness, went to the bathroom patient felt lightheadedness and syncopized in the bathroom fell down hit his head with with LOC for few seconds, now patient still feel lightheadedness nose CP, no SOB, no abdominal pain. Patient's symptoms is worsening when he changed position specifically when he stand up parent Related Data Home Medications Medication Instructions Recorded Confirmed levothyroxine 75 mcg tablet 75 mcg PO DAILY 06/27/20 10/03/22 atorvastatin 40 mg tablet 40 mg PO DAILY 02/10/22 10/03/22 lisinopril 2.5 mg tablet 2.5 mg PO DAILY 02/10/22 10/03/22 spironolactone 25 mg tablet 25 mg PO DAILY 02/10/22 10/03/22 torsemide 20 mg tablet 40 mg PO BID 05/04/22 10/03/22 acetaminophen 500 mg tablet 1 tab PO Q8H PRN Pain 07/24/22 10/03/22 metoprolol tartrate 25 mg tablet 0.5 tab PO DAILY 10/03/22 10/03/22 pantoprazole 40 mg tablet,delayed 1 tab PO DAILY 10/03/22 10/03/22 release sertraline 25 mg tablet 1 tab PO DAILY 10/03/22 10/03/22 tamsulosin 0.4 mg capsule 1 cap PO DAILY 10/03/22 10/03/22 Allergies Allergy/AdvReac Type Severity Reaction Status Date / Time Penicillins Allergy Unknown UNKWN Verified 07/24/22 09:42 Review of Systems Review of Systems: All other systems are reviewed and are negative Constitutional: Reports as per HPI and Reports no additional constitutional complaints Eyes: Reports as per HPI and Reports no additional eye complaints Reports system reviewed and no additional complaints, except as documented Cardiovascular: Reports as per HPI and Reports no additional cardiovascular complaints Respiratory: Reports as per HPI and Reports no additional respiratory complaints Gastrointestinal: Reports as per HPI and Reports no additional gastrointestinal complaints Genitourinary: Reports no additional female genitourinary complaints Musculoskeletal: Reports no additional musculoskeletal complaints Skin/Breast: Reports system reviewed and no additional complaints, except as docu Psychiatric: Reports no additional psychiatric complaints Endocrine: Reports no additional endocrine complaints Hematologic/Lymphatic: Reports no additional hematologic/lymphatic complaints Allergic/Immunologic: Reports no additional allergic/immunologic complaints Reports system reviewed and no additional complaints, except as documented and Reports Abnormal speech present [facility] Past Medical History Medical History Acute hypokalemia Acute on chronic renal failure Anasarca associated with disorder of kidney Anasarca associated with disorder of kidney Aortic stenosis CHF (congestive heart failure), NYHA class I CKD (chronic kidney disease) stage 3, GFR 30-59 ml/min Congestive heart failure Congestive heart failure Diabetes 1.5, managed as type 2 Diverticulosis Hiatal hernia History of small bowel obstruction Hyperlipidemia Hypertension 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 Social History Social History Household Members: None Housing: Apartment Do you presently have visiting nurse or other home services: No Unable to assess alcohol history related to: Unknown Alcohol intake: former Patient Tobacco Use Status: Former Tobacco user Quit Date: 5 years ago Years Smoked: 30 Second Hand Smoke Exposure: No Advance Directives: No Advance Directives Information Provided: No Advance Directives on File: No Advance Directives Date on File: 05/01/20 service: No Current occupational status: unemployed and disabled Physical Exam ED Vital Signs: Vital Signs - 24 hr 10/03/22 12:16 10/03/22 12:41 10/03/22 12:41 Temperature 98.6 F Pulse Rate 82 73 82 Respiratory Rate 22 H Blood Pressure 128/64 114/66 84/48 L Pulse Oximetry 96 Oxygen Delivery Method Room Air 10/03/22 15:30 Temperature Pulse Rate 78 Respiratory Rate 18 Blood Pressure 117/76 Pulse Oximetry 94 Oxygen Delivery Method Room Air BMI result Body Mass Index 28.1 Vital signs have been reviewed as appeared to be correct. Blood pressure normal. Heart rate normal. Respiration rate normal. Temperature normal. Oxygen saturation normal. Orthostatic vital sign was positive. Appearance: Alert. Oriented X3. No acute distress. Head: Normal external exam. Normocephalic. Atraumatic. No Simmons signs noted. No raccoon eyes noted Eyes: PERRLA. EOMI. Conjunctiva and sclera normal. Eyelids normal. ENT: TM's Normal. Pharynx normal. Uvula midline. Moist mucous membranes. No trismus noted. No drooling noted. No muffled voice noted. Neck: Normal inspection. Neck supple. FROM. No adenopathy. Thyroid Normal. No meningeal signs. No neck mass noted. CVS: Normal heart rate and rhythm. Heart sound normal. No murmurs noted. Pulses normal throughout. Respiratory: No respiratory distress. Painless inspiration. Breath sounds normal. No wheezes/rales/rhonchi noted. Chest nontender. No accessory muscle usage noted or decreased air movement noted. Abdomen: Soft and nontender. Bowel sounds normal in all 4 quadrants. No distention noted. No organomegaly noted. No visible injury noted. Back: No CVA tenderness. Full range of motion noted. Skin: Skin warm and dry. Normal skin color. Normal skin turgor. No rashes/lesions/lacerations noted. Extremities: No lower extremity edema. Extremities exhibit normal range of motion. Extremities nontender. Neuro: Oriented X 3. Cranial nerve exam: II-XII are grossly intact No motor deficit. No sensory deficit. Reflexes normal. Course Course Course Narrative: 66-year-old male end-stage renal disease on dialysis status post dialysis in the morning followed by syncopal episode patient was orthostatic in the emergency department, patient received 1 L of normal saline feels better no lightheadedness no feeling of passing out. No CP no SOB, no abdominal pain, no nausea, no vomiting, no diarrhea. Medications Administered Discontinued Medications Generic Name Dose Route Start Last Admin Trade Name Freq PRN Reason Stop Dose Admin Sodium Chloride 1,000 mls @ 999 mls/hr 10/03/22 13:00 10/03/22 15:00 Ns IV 10/03/22 14:00 Infused .Q1H1M ONE Infusion Medical Decision Making Differential Diagnosis Differential Diagnoses: The differential diagnosis associated with the presentation includes (Post dialysis hypovolemia, dehydration, orthostatic syncope, ACS, intracranial bleed.) Lab Data [facility] Lab Attestation statement: I reviewed the patient's lab results. 10/03/22 13:56 10/03/22 13:56 Labs: Lab Results 10/03/22 10/03/22 10/03/22 Range/Units 13:56 13:56 13:56 WBC 8.4 (4.8-10.8) X10*3/uL RBC 3.98 L (4.60-5.80) X10*6/uL Hgb 11.7 L (14.0-18.0) g/dl Hct 37.1 L (42.0-52.0) % MCV 93.2 (80.0-98.0) fL MCH 29.4 (27.0-33.0) pg MCHC 31.5 (31.0-36.0) g/dl RDW 16.5 H (11.0-16.0) % Plt Count 316 (160-400) X10*3/uL MPV 9.7 (9.4-12.4) fL Immature Gran % (Auto) 0.7 H (0.0-0.4) % Neut % (Auto) 77.3 H (45-73) % Lymph % (Auto) 9.2 L (20-40) % Hamblen % (Auto) 10.9 (2-11) % Eos % (Auto) 1.2 (0-4) % Baso % (Auto) 0.7 (0-2) % Lymph # (Auto) 0.8 L (1.2-4.9) X10*3/uL Hamblen # (Auto) 0.9 (0.1-1.2) X10*3/uL Eos # (Auto) 0.1 (0.0-0.4) X10*3/uL Baso # (Auto) 0.1 (0.0-0.2) X10*3/uL Abs Immat Gran (auto) 0.06 H (0.00-0.03) X10*3/uL Absolute Neuts (auto) 6.5 (2.0-8.3) x10*3/uL Absolute Nucleated RBC 0.000 (0.0-0.012) X10*3/uL Nucleated RBC % (auto) 0.0 (0.0-0.2) /100WBC Sodium 137 (135-145) mmol/L Potassium 4.2 (3.3-5.1) mmol/L Chloride 100 (96-108) mmol/L Carbon Dioxide 25 (22-29) mmol/L Anion Gap 16 (12-20) BUN 22 H (9-16) mg/dL Creatinine 3.54 H (0.5-1.4) mg/dL Estim Creat Clear Calc 23.7 Estimated GFR 17 Random Glucose 153 H (60-115) mg/dL Calcium 8.5 D (8.4-10.2) mg/dL Total Bilirubin 0.3 (0.0-1.0) mg/dL Direct Bilirubin < 0.2 (0.0-0.5) mg/dL AST 14 (5-37) U/L ALT 10 (0-40) U/L Alkaline Phosphatase 114 (39-117) U/L Troponin I High Sens 12.9 (<3.5-35.0) ng/L B-Natriuretic Peptide (<100) pg/mL Total Protein 6.4 L (6.5-8.0) g/dL Albumin 2.9 L (3.5-5.0) g/dL Lipase 46 (8-78) U/L COVID-19 ([facility]) (Negative) COVID-19 Clin Com 10/03/22 10/03/22 Range/Units 13:56 13:56 WBC (4.8-10.8) X10*3/uL RBC (4.60-5.80) X10*6/uL Hgb (14.0-18.0) g/dl Hct (42.0-52.0) % MCV (80.0-98.0) fL MCH (27.0-33.0) pg MCHC (31.0-36.0) g/dl RDW (11.0-16.0) % Plt Count (160-400) X10*3/uL MPV (9.4-12.4) fL Immature Gran % (Auto) (0.0-0.4) % Neut % (Auto) (45-73) % Lymph % (Auto) (20-40) % Hamblen % (Auto) (2-11) % Eos % (Auto) (0-4) % Baso % (Auto) (0-2) % Lymph # (Auto) (1.2-4.9) X10*3/uL Hamblen # (Auto) (0.1-1.2) X10*3/uL Eos # (Auto) (0.0-0.4) X10*3/uL Baso # (Auto) (0.0-0.2) X10*3/uL Abs Immat Gran (auto) (0.00-0.03) X10*3/uL Absolute Neuts (auto) (2.0-8.3) x10*3/uL Absolute Nucleated RBC (0.0-0.012) X10*3/uL Nucleated RBC % (auto) (0.0-0.2) /100WBC Sodium (135-145) mmol/L Potassium (3.3-5.1) mmol/L Chloride (96-108) mmol/L Carbon Dioxide (22-29) mmol/L Anion Gap (12-20) BUN (9-16) mg/dL Creatinine (0.5-1.4) mg/dL Estim Creat Clear Calc Estimated GFR Random Glucose (60-115) mg/dL Calcium (8.4-10.2) mg/dL Total Bilirubin (0.0-1.0) mg/dL Direct Bilirubin (0.0-0.5) mg/dL AST (5-37) U/L ALT (0-40) U/L Alkaline Phosphatase (39-117) U/L Troponin I High Sens (<3.5-35.0) ng/L B-Natriuretic Peptide 190 H (<100) pg/mL Total Protein (6.5-8.0) g/dL Albumin (3.5-5.0) g/dL Lipase (8-78) U/L COVID-19 ([facility]) Negative (Negative) COVID-19 Clin Com See Note Independent Interpretation I performed an independent interpretation of an: EKG and CT Scan (Head: No acute intracranial pathology.) Interpretation: Normal sinus rhythm at 70 beats per minutes, normal axis deviation, normal intervals, Flattening T-wave. Radiology Impression Discussion of test interpretation with radiology: I have reviewed the radiologist's reading. Discharge Plan Discharge Clinical Impression: Hypovolemia, Orthostatic hypotension Patient Disposition: Home, Self-Care Instructions: Hypotension (ED), Syncope (ED) Prescriptions: No Action levothyroxine 75 mcg Tablet 75 mcg PO DAILY atorvastatin 40 mg tablet 40 mg PO DAILY lisinopril 2.5 mg tablet 2.5 mg PO DAILY spironolactone 25 mg tablet 25 mg PO DAILY acetaminophen 500 mg tablet 1 tab PO Q8H PRN (Reason: Pain) tamsulosin 0.4 mg capsule 1 cap PO DAILY pantoprazole 40 mg tablet,delayed release (DR/EC) 1 tab PO DAILY metoprolol tartrate 25 mg tablet 0.5 tab PO DAILY sertraline 25 mg tablet 1 tab PO DAILY torsemide 20 mg tablet 40 mg PO BID Referrals: Segundo Tapia MD [Primary Care Provider] -
--- NOTE | 2022-10-03 13:37 | PHA.MEDREC ---
Pharmacy Consult ? Medication Reconciliation Pharmacy has completed the medication reconciliation. Patient did not know what he takes, told me [facility] Used recent pharmacy claims
[2022-10-03] MEDS: 0.9 % Sodium Chloride 1,000 ML 999 ML IV (13:42)
[2022-10-03 14:04] LABS: Basophils Absolute Auto 0.1 X10*3/uL (0.0-0.2); Basophils Percent Auto 0.7 % (0-2); Eosinophils Absolute Auto 0.1 X10*3/uL (0.0-0.4); Eosinophils Percent Auto 1.2 % (0-4); Hematocrit 37.1 % (42.0-52.0); Hemoglobin 11.7 g/dl (14.0-18.0); Imm Gran Abs Auto 0.06 X10*3/uL (0.00-0.03); Imm Gran Pct Auto 0.7 % (0.0-0.4); Lymphocytes Absolute Auto 0.8 X10*3/uL (1.2-4.9); Lymphocytes Percent Auto 9.2 % (20-40); MANUAL DIFF FLAG NO; Mean Corpuscular HGB Conc 31.5 g/dl (31.0-36.0); Mean Corpuscular Hemoglobin 29.4 pg (27.0-33.0); Mean Corpuscular Volume 93.2 fL (80.0-98.0); Mean Platelet Volume 9.7 fL (9.4-12.4); Monocytes Absolute Auto 0.9 X10*3/uL (0.1-1.2); Monocytes Percent Auto 10.9 % (2-11); Neutrophils Absolute Auto 6.5 x10*3/uL (2.0-8.3); Neutrophils Percent Auto 77.3 % (45-73); Platelet Count 316 X10*3/uL (160-400); Red Blood Count 3.98 X10*6/uL (4.60-5.80); Red Cell Distribution Width 16.5 % (11.0-16.0); White Blood Count 8.4 X10*3/uL (4.8-10.8)
[2022-10-03 14:20] LABS: COVID-19 Test Negative (Negative); IDNOW Serial# BCCEAD1C
[2022-10-03 14:22] LABS: Alanine Aminotransferase 10 U/L (0-40); Albumin Level 2.9 g/dL (3.5-5.0); Alkaline Phosphatase 114 U/L (39-117); Anion Gap 16 (12-20); Aspartate Amino Transferase 14 U/L (5-37); Bilirubin Direct < 0.2 mg/dL (0.0-0.5); Bilirubin Total 0.3 mg/dL (0.0-1.0); Blood Urea Nitrogen 22 mg/dL (9-16); Calcium 8.5 mg/dL (8.4-10.2); Carbon Dioxide 25 mmol/L (22-29); Chloride 100 mmol/L (96-108); Creatinine Clr Calc Pharmacy 23.7; Estimated Glomerular Filt Rate 17; Glucose Random 153 mg/dL (60-115); Lipase 46 U/L (8-78); Potassium 4.2 mmol/L (3.3-5.1); Sodium 137 mmol/L (135-145); Total Protein 6.4 g/dL (6.5-8.0)
[2022-10-03 14:26] LABS: B Type Natriuretic Peptide 190 pg/mL (<100)
[2022-10-03 14:29] LABS: Troponin-I High Sensitivity 12.9 ng/L (<3.5-35.0)
[2022-10-03 15:30] VITALS: BP 117/76; PULSE 78; RESP 18; O2SAT 94
== END 2022-10-03 16:10 | disposition home or self-care (01) ==
PROVIDERS: Emergency Provider Emergency Medicine; PCP Internal Medicine
DX: I95.1 Orthostatic hypotension (principal); E86.1 Hypovolemia; Z20.822 Contact with and (suspected) exposure to COVID-19; E13.22 Other specified diabetes mellitus with diabetic chronic kidney disease; I13.2 Hypertensive heart and chronic kidney disease with heart failure and with stage 5 chronic kidney disease, or end stage renal disease; N18.5 Chronic kidney disease, stage 5; I50.9 Heart failure, unspecified; N17.9 Acute kidney failure, unspecified; Z99.2 Dependence on renal dialysis; E78.5 Hyperlipidemia, unspecified; Z87.891 Personal history of nicotine dependence; Z79.02 Long term (current) use of antithrombotics/antiplatelets; Z79.899 Other long term (current) drug therapy
CPT/HCPCS: 36415; 70450; 80048; 80076; 83690; 83880; 84484; 85025; 87635; 93005; 96360; 99285

== ENCOUNTER 2022-10-28 09:41 | Inpatient (IN) | payer MEDICARE, MEDICAID, SELFPAY ==
[2022-10-28] VITALS (9 sets, daily range): BP systolic 96–130; BP diastolic 51–80; PULSE 82–105; RESP 13–112; TEMP 37.1–38.1; O2SAT 95–98; BMI 28.1
--- NOTE | ~2022-10-28 | IR_ITS ---
EXAMINATION: XA IR CVC removal tunneled catheter CLINICAL INFORMATION: Bacteremia. Remove perm-a-cath after dialysis. COMPARISON: None available. TECHNIQUE: The right chest was prepped and draped surrounding the dialysis catheter. The skin and soft tissues were anesthetized with 1% lidocaine plain. Using blunt dissection, soft tissues surrounding the catheter were dissected. The catheter was removed. The catheter tip was sent for culture. FINDINGS: No images obtained. IR/IR cvc remove tunnel w prt/housekeeper nanny IMPRESSION: Perm-a-cath removal.
--- NOTE | ~2022-10-28 | XR_ITS ---
EXAMINATION: XR CHEST CLINICAL INFORMATION: Post right thoracentesis COMPARISON: Previous chest x-ray most recent 10/28/2022 TECHNIQUE: Frontal view of the chest was obtained. FINDINGS: No pneumothorax post right thoracentesis. Increased attenuation and small pleural effusion at the right lung base appears unchanged. The left lung is clear. No left pleural effusion. Postoperative change from aortic valve replacement. Right jugular dialysis catheter tip projects over cavoatrial junction. Median sternotomy wires. XR/XR chest 1V IMPRESSION: No pneumothorax post right thoracentesis.
--- NOTE | ~2022-10-28 | US_ITS ---
EXAMINATION: Ultrasound-guided thoracentesis CLINICAL INFORMATION: Right loculated effusion COMPARISON: Previous chest x-ray and chest CT from earlier this month TECHNIQUE: Procedure and wrist and benefits including bleeding, infection and pneumothorax were discussed with the patient and informed consent was obtained. The patient was positioned in the left decubitus position. The right posterior chest was prepped and draped in the usual sterile fashion. The skin and soft tissues were anesthetized with 1% lidocaine plain. Using ultrasound guidance and a 4 Kinyarwanda one-step catheter, access to the right pleural effusion was obtained. 20 mL of old-appearing blood was aspirated. This was sent for diagnostic studies. FINDINGS: There is a moderate size loculated right pleural effusion. This has a thick pleural rind. US/US thoracentesis IMPRESSION: Ultrasound-guided right thoracentesis.
--- NOTE | ~2022-10-28 | IR_ITS ---
PROCEDURE: IR INSERTION OF TUNNEL CATHETER CLINICAL INFORMATION: Renal failure. COMPARISON: None available. TECHNIQUE: Procedure and risks and benefits including bleeding, infection and pneumothorax were discussed with the patient and informed consent was obtained. All elements of maximal sterile barrier technique followed including use of cap, mask, sterile gown, sterile gloves, a sterile full body drape and hand hygiene. Also followed skin preparation with 2% chlorhexidine for cutaneous antisepsis, and sterile ultrasound preparation with sterile gel and probe cover when applicable. The right neck and chest was prepped and draped in usual sterile fashion. Using ultrasound guidance and a 5-Mongolian micropuncture system, right internal jugular vein access was obtained. A small incision was made in the chest. A subcutaneous tunnel from the chest to the neck incision was anesthetized with 1% lidocaine plain. Using a tunneler, a 14.5-Mongolian 19 cm in length GlidePath permacath was tunneled from the chest to the neck incision. An 035 guidewire was advanced through the 5-Mongolian dilator into the IVC. Following serial dilatation and through a peel-away sheath, permacath was advanced centrally. The neck incision was closed using 3-0 absorbable subcuticular suture. The chest incision was closed using a 3-0 absorbable mattress suture. Both ports had good blood return, flushed easily and were instilled with 1.6 mL heparin 1000 unit per mL solution. Real-time ultrasound guidance was used to document vein patency and for needle entry. A formal ultrasound picture was recorded. FLUOROSCOPY TIME: 0.5 minutes. FLUOROSCOPIC IMAGES: 1 saved fluoroscopic image. DAP: 70 cGy-cm2 (per centimeter squared). Conscious sedation was provided by registered nurse under my direct supervision. Patient received versed 1 mg and fentanyl 50 mcg intravenously during the procedure. Total sedation time was 18 minutes of [id number]-xd-uzik contact. FINDINGS: There is a right internal jugular permacath with tip projecting over the cavoatrial junction. IR/IR cvc insert central tunnel IMPRESSION: Right internal jugular 14.5-Mongolian 19 cm in length GlidePath permacath placement.
--- NOTE | ~2022-10-28 | XR_ITS ---
EXAMINATION: XR CHEST CLINICAL INFORMATION: Syncope COMPARISON: Previous chest x-ray most recent July 2022 TECHNIQUE: 2 views of the chest were obtained. FINDINGS: The cardiac and mediastinal contours are stable. Post-CABG changes are seen. There is a new right jugular dialysis catheter with tip projecting over the SVC. There is increased attenuation of the right hemithorax. On the lateral view there is a moderate posterior loculated pleural effusion. It is uncertain whether this there is airspace disease or asymmetric distribution of pulmonary edema in the right lung as well. The left lung is clear. There is no left pleural effusion. There is no pneumothorax. There are degenerative changes of the spine. There is a mild old lower teeth 9 vertebral body compression fracture. There are median sternotomy wires. XR/XR chest 2V IMPRESSION: Posterior loculated right pleural effusion. Question right lung airspace disease or asymmetric distribution of pulmonary edema.
--- NOTE | ~2022-10-28 | CT_ITS ---
EXAMINATION: CT HEAD WITHOUT CONTRAST CLINICAL INFORMATION: Syncope COMPARISON: Previous head CT scans most recent September 2022 TECHNIQUE: Contiguous axial imaging was performed from the skull base to vertex without intravenous administration of contrast. This CT examination was performed using dose optimization techniques as appropriate, variously including the following: *Automated exposure control *Adjustment of mA and/or kV according to patient size (this includes techniques or standardized protocols for targeted exams where dose is matched to indication/reason for exam; i.e. extremities or head) *Use of iterative reconstruction technique DLP: 7-0 mGy-cm FINDINGS: There is no evidence of an extra-axial collection. There is no evidence for intra or extra-axial hemorrhage. The ventricles and extra-axial CSF spaces are appropriate. There is nonspecific periventricular white matter disease. No mass, mass effect or infarct. No skull fracture. Clear mastoid air cells and middle ears. Soft tissue opacification of the left nasal cavity/ostiomeatal complex region and bilateral soft tissue opacification of the maxillary sinuses. CT/CT head/brain wo IV con IMPRESSION: No acute intracranial findings. Sinus disease.
--- NOTE | ~2022-10-28 | IR_ITS ---
PROCEDURE: IR INSERTION OF TUNNEL CATHETER CLINICAL INFORMATION: Renal failure. COMPARISON: None available. TECHNIQUE: Procedure and risks and benefits including bleeding, infection and pneumothorax were discussed with the patient and informed consent was obtained. All elements of maximal sterile barrier technique followed including use of cap, mask, sterile gown, sterile gloves, a sterile full body drape and hand hygiene. Also followed skin preparation with 2% chlorhexidine for cutaneous antisepsis, and sterile ultrasound preparation with sterile gel and probe cover when applicable. The right neck and chest was prepped and draped in usual sterile fashion. Using ultrasound guidance and a 5-Czech micropuncture system, right internal jugular vein access was obtained. A small incision was made in the chest. A subcutaneous tunnel from the chest to the neck incision was anesthetized with 1% lidocaine plain. Using a tunneler, a 14.5-Czech 19 cm in length GlidePath permacath was tunneled from the chest to the neck incision. An 035 guidewire was advanced through the 5-Czech dilator into the IVC. Following serial dilatation and through a peel-away sheath, permacath was advanced centrally. The neck incision was closed using 3-0 absorbable subcuticular suture. The chest incision was closed using a 3-0 absorbable mattress suture. Both ports had good blood return, flushed easily and were instilled with 1.6 mL heparin 1000 unit per mL solution. Real-time ultrasound guidance was used to document vein patency and for needle entry. A formal ultrasound picture was recorded. FLUOROSCOPY TIME: 0.5 minutes. FLUOROSCOPIC IMAGES: 1 saved fluoroscopic image. DAP: 70 cGy-cm2 (per centimeter squared). Conscious sedation was provided by registered nurse under my direct supervision. Patient received versed 1 mg and fentanyl 50 mcg intravenously during the procedure. Total sedation time was 18 minutes of aghx-pu-ospo contact. FINDINGS: There is a right internal jugular permacath with tip projecting over the cavoatrial junction. IR/IR us guide venous access IMPRESSION: Right internal jugular 14.5-Czech 19 cm in length GlidePath permacath placement.
--- NOTE | ~2022-10-28 | CT_ITS ---
EXAMINATION: CT CHEST WITHOUT CONTRAST CLINICAL INFORMATION: Question pneumonia COMPARISON: Chest x-ray from earlier the same day TECHNIQUE: Multidetector volumetric CT imaging of the chest was done. Axial MIP volume rendering provided. Sagittal and coronal reformatted images were obtained. This CT examination was performed using dose optimization techniques as appropriate, variously including the following: *Automated exposure control *Adjustment of mA and/or kV according to patient size (this includes techniques or standardized protocols for targeted exams where dose is matched to indication/reason for exam; i.e. extremities or head) *Use of iterative reconstruction technique DLP: 372 mGy-cm FINDINGS: LUNGS: There is subsegmental atelectasis in the right lower lobe adjacent to the effusion. There is are small calcified pulmonary nodules suggestive of calcified granulomas. Largest measures 4 mm in the lower lobes. MEDIASTINUM: Normal heart size. Aortic valve replacement. Mild coronary artery calcification. Trace pericardial effusion or thickening. Right jugular dialysis catheter with tip projecting over the cavoatrial junction. No enlarged hilar or mediastinal lymph nodes CORONARY ARTERY CALCIFICATION: Mild PLEURA: Moderate partially loculated right pleural effusion. No left pleural effusion. AXILLA: No lymphadenopathy. UPPER ABDOMEN: Several small subcentimeter low-attenuation liver lesions. These are difficult to characterize due to small size and lack of IV contrast. Diverticulosis of the colon. OSSEOUS STRUCTURES: Ununited median sternotomy. Degenerative changes of the spine. CT/CT chest wo IV con IMPRESSION: Moderate partially loculated right pleural effusion. Adjacent right lower lobe atelectasis. No definite pneumonia. Small calcified pulmonary nodules probably representing calcified granulomas. Postsurgical change from aortic valve replacement. Fleischner guidelines were followed.
--- NOTE | 2022-10-28 10:01 | ECG_ITS ---
Test Reason : SYNCOPE Blood Pressure : / mmHG Vent. Rate : 104 BPM Atrial Rate : 104 BPM P-R Int : 192 ms QRS Dur : 094 ms QT Int : 346 ms P-R-T Axes : 029 013 051 degrees QTc Int : 454 ms Sinus tachycardia with Premature atrial complexes Nonspecific ST abnormality Abnormal ECG When compared with ECG of 03-OCT-2022 12:33, Premature atrial complexes are now Present Vent. rate has increased BY 34 BPM Nonspecific T wave abnormality no longer evident in Anterior leads Referred By: Edwin Virk Electronically Signed By:OMER WAGNER MD
--- NOTE | 2022-10-28 10:04 | ED.SYNCOPE ---
HPI - Syncope General Chief Complaint: Syncope Stated Complaint: Fall, syncopal episode per EMS Time Seen by Provider: 10/28/22 09:52 Source: patient, EMS and old records reviewed History of Present Illness HPI narrative: Patient with a history significant for coronary artery bypass surgery 2-3 months ago as well as recent renal failure requiring dialysis Wednesday which started approximately 2-3 months ago. Presents today after syncopal event. Patient states he got up out of his recliner approximately 5 hours ago and fell. He does not remember falling or hitting the ground of big see passed out. There were no witnesses. He remained on the ground for 5 hours until his father came to check on him. He denies chest pain or shortness of breath. He has had a fever recently but does not remember how many days. His last dialysis was Wednesday, 2 days ago. He is due this morning but has missed his appointment secondary to falling on the ground. No nausea vomiting or diarrhea. No abdominal pain. No skin changes. Related Data Home Medications Medication Instructions Recorded Confirmed levothyroxine 75 mcg tablet 75 mcg PO DAILY 06/27/20 10/03/22 atorvastatin 40 mg tablet 40 mg PO DAILY 02/10/22 10/03/22 lisinopril 2.5 mg tablet 2.5 mg PO DAILY 02/10/22 10/03/22 spironolactone 25 mg tablet 25 mg PO DAILY 02/10/22 10/03/22 torsemide 20 mg tablet 40 mg PO BID 05/04/22 10/03/22 acetaminophen 500 mg tablet 1 tab PO Q8H PRN Pain 07/24/22 10/03/22 metoprolol tartrate 25 mg tablet 0.5 tab PO DAILY 10/03/22 10/03/22 pantoprazole 40 mg tablet,delayed 1 tab PO DAILY 10/03/22 10/03/22 release sertraline 25 mg tablet 1 tab PO DAILY 10/03/22 10/03/22 tamsulosin 0.4 mg capsule 1 cap PO DAILY 10/03/22 10/03/22 Allergies Allergy/AdvReac Type Severity Reaction Status Date / Time Penicillins Allergy Unknown UNKWN Verified 07/24/22 09:42 Review of Systems Constitutional: Comments: Positive fevers and general malaise Eyes: Comments: No vision changes ENT: Comments: Positive rhinorrhea Cardiovascular: Comments: Syncope. No palpitations or chest pain Respiratory: Comments: Cough without sputum. No dyspnea Gastrointestinal: Comments: No abdominal pain or nausea vomiting diarrhea Genitourinary: Comments: No urinary symptoms, patient with end-stage renal disease on hemodialysis Musculoskeletal: Comments: No injuries in his fall Neurologic: Comments: General weakness but no focal neurologic weakness PMFSH Past Medical History Medical History Acute hypokalemia Acute on chronic renal failure Anasarca associated with disorder of kidney Anasarca associated with disorder of kidney Aortic stenosis CHF (congestive heart failure), NYHA class I CKD (chronic kidney disease) stage 3, GFR 30-59 ml/min Congestive heart failure Congestive heart failure Diabetes 1.5, managed as type 2 Diverticulosis Hiatal hernia History of small bowel obstruction Hyperlipidemia Hypertension 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 Social History Social History Household Members: None Housing: Apartment Do you presently have visiting nurse or other home services: No Unable to assess alcohol history related to: Unknown Alcohol intake: former Patient Tobacco Use Status: Former Tobacco user Quit Date: 5 years ago Years Smoked: 30 Second Hand Smoke Exposure: No Advance Directives: No Advance Directives Date on File: 05/01/20 service: No Current occupational status: unemployed and disabled Physical Exam Vital Signs: Vital Signs: Last Vital Signs Temp 98.9 F 10/28/22 12:17 Pulse 91 10/28/22 12:17 Resp 19 10/28/22 12:17 BP 100/55 L 10/28/22 12:17 Pulse Ox 96 10/28/22 12:17 O2 Del Method Room Air 10/28/22 12:17 BMI result Body Mass Index 28.1 Const: Other: Awake and alert. No acute distress. Mild tachycardia at 103 with a temperature of a 100.5 degrees. Blood pressure is good at 117/72 HEENT: Other: Normocephalic atraumatic Eyes: Other: Pupils equal round reactive to light Chest: Other: Nontender. Dialysis catheter right chest. Cardio: Other: Mild tachycardia without murmurs rubs or gallops GI: Other: Soft nontender nondistended with normoactive bowel sounds Skin: Other: Warm pink and dry without rash Neuro: Other: Non focal neuro exam Extrem: Other: 1+ bilateral pedal edema. No calf tenderness Medications Administered Discontinued Medications Generic Name Dose Route Start Last Admin Trade Name Renuka PRN Reason Stop Dose Admin Acetaminophen 650 mg 10/28/22 10:03 10/28/22 10:27 Acetaminophen 325 Mg Tablet PO 10/28/22 10:04 650 mg ONCE ONE Administration Azithromycin 500 mg 10/28/22 10:03 10/28/22 10:48 Azithromycin 500 Mg Tablet PO 10/28/22 10:04 500 mg ONCE ONE Administration Ceftriaxone Sodium 1 gm/ 50 mls @ 100 mls/hr 10/28/22 10:03 10/28/22 10:48 Sodium Chloride IV 10/28/22 10:32 100 mls/hr ONCE ONE Administration Medical Decision Making Medical Decision Making [facility] Narrative: 10:10. Patient with syncope, presumed, prior to arrival with multiple risk factors. His low-grade temperature and meet sepsis criteria, with a potential source symptoms. Blood pressure is stable however. He is at high risk for fluid overload as it has been 2 days since his last dialysis. For this reason I will hold off on fluid bolusing until further workup to better assess fluid status. We will treat with broad-spectrum antibiotics in the meantime however. Other potential causes of syncope such as dysrhythmia are possible. Patient is at risk for electrolyte imbalance and other risk factors for dysrhythmia including recent bypass surgery. Will monitor 11:50. Serology testing significant for COVID positive. Review of old records shows he was COVID positive in August. He had a negative test in September. And now he is positive again in October. Troponin is 60.4. Will order a pre troponin Total CPK is 774. Consistent with mild rhabdomyolysis BNP is near baseline at 213. Hematology shows normal white count. Await further workup Chest x-ray shows pleural effusion and right airspace disease versus pulmonary edema. RA treated with antibiotics. 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 Case discussed with Nephrology who will dialyze patient today. Lab Data 10/28/22 10:49 10/28/22 10:49 Labs: Lab Results 04/07/1010/28/22 10/28/22 Range/Units 10:49 10:49 10:49 WBC 9.6 (4.8-10.8) X10*3/uL RBC 3.17 L D (4.60-5.80) X10*6/uL Hgb 9.7 L (14.0-18.0) g/dl Hct 30.7 L (42.0-52.0) % MCV 96.8 (80.0-98.0) fL MCH 30.6 (27.0-33.0) pg MCHC 31.6 (31.0-36.0) g/dl RDW 16.5 H (11.0-16.0) % Plt Count 255 (160-400) X10*3/uL MPV 10.0 (9.4-12.4) fL Immature Gran % (Auto) 0.4 (0.0-0.4) % Neut % (Auto) 86.6 H (45-73) % Lymph % (Auto) 5.2 L (20-40) % [place] % (Auto) 6.5 (2-11) % Eos % (Auto) 0.8 (0-4) % Baso % (Auto) 0.5 (0-2) % Lymph # (Auto) 0.5 L (1.2-4.9) X10*3/uL [place] # (Auto) 0.6 (0.1-1.2) X10*3/uL Eos # (Auto) 0.1 (0.0-0.4) X10*3/uL Baso # (Auto) 0.1 (0.0-0.2) X10*3/uL Abs Immat Gran (auto) 0.04 H (0.00-0.03) X10*3/uL Absolute Neuts (auto) 8.3 (2.0-8.3) x10*3/uL Absolute Nucleated RBC 0.000 (0.0-0.012) X10*3/uL Nucleated RBC % (auto) 0.0 (0.0-0.2) /100WBC PT (10.0-13.1) SEC INR (0.9-1.1) D-Dimer High Sensitivty NG/ML Sodium 137 (135-145) mmol/L Potassium 4.1 (3.3-5.1) mmol/L Chloride 106 (96-108) mmol/L Carbon Dioxide 18 L (22-29) mmol/L Anion Gap 17 (12-20) BUN 33 H (9-16) mg/dL Creatinine 6.18 H* (0.5-1.4) mg/dL Estim Creat Clear Calc 13.6 Estimated GFR 9 Random Glucose 135 H (60-115) mg/dL Lactic Acid 1.7 (0.5-2.0) mmol/L Calcium 7.9 L D (8.4-10.2) mg/dL Total Bilirubin 0.4 (0.0-1.0) mg/dL AST 22 (5-37) U/L ALT 11 (0-40) U/L Alkaline Phosphatase 84 (39-117) U/L Total Creatine Kinase 774 H (38-174) U/L Troponin I High Sens (<3.5-35.0) ng/L B-Natriuretic Peptide (<100) pg/mL Total Protein 5.4 L (6.5-8.0) g/dL Albumin 2.5 L (3.5-5.0) g/dL Influenza Type A (PCR) (Negative) Influenza Type B (PCR) (Negative) RSV RNA Qual (PCR) (Negative) SARS-CoV-2 RNA (RT-PCR) (Negative) 10/28/22 10/28/22 10/28/22 Range/Units 10:49 10:49 10:49 WBC (4.8-10.8) X10*3/uL RBC (4.60-5.80) X10*6/uL Hgb (14.0-18.0) g/dl Hct (42.0-52.0) % MCV (80.0-98.0) fL MCH (27.0-33.0) pg MCHC (31.0-36.0) g/dl RDW (11.0-16.0) % Plt Count (160-400) X10*3/uL MPV (9.4-12.4) fL Immature Gran % (Auto) (0.0-0.4) % Neut % (Auto) (45-73) % Lymph % (Auto) (20-40) % [place] % (Auto) (2-11) % Eos % (Auto) (0-4) % Baso % (Auto) (0-2) % Lymph # (Auto) (1.2-4.9) X10*3/uL [place] # (Auto) (0.1-1.2) X10*3/uL Eos # (Auto) (0.0-0.4) X10*3/uL Baso # (Auto) (0.0-0.2) X10*3/uL Abs Immat Gran (auto) (0.00-0.03) X10*3/uL Absolute Neuts (auto) (2.0-8.3) x10*3/uL Absolute Nucleated RBC (0.0-0.012) X10*3/uL Nucleated RBC % (auto) (0.0-0.2) /100WBC PT 12.4 (10.0-13.1) SEC INR 1.1 (0.9-1.1) D-Dimer High Sensitivty 2522 NG/ML Sodium (135-145) mmol/L Potassium (3.3-5.1) mmol/L Chloride (96-108) mmol/L Carbon Dioxide (22-29) mmol/L Anion Gap (12-20) BUN (9-16) mg/dL Creatinine (0.5-1.4) mg/dL Estim Creat Clear Calc Estimated GFR Random Glucose (60-115) mg/dL Lactic Acid (0.5-2.0) mmol/L Calcium (8.4-10.2) mg/dL Total Bilirubin (0.0-1.0) mg/dL AST (5-37) U/L ALT (0-40) U/L Alkaline Phosphatase (39-117) U/L Total Creatine Kinase (38-174) U/L Troponin I High Sens 60.4 H D (<3.5-35.0) ng/L B-Natriuretic Peptide 213 H (<100) pg/mL Total Protein (6.5-8.0) g/dL Albumin (3.5-5.0) g/dL Influenza Type A (PCR) (Negative) Influenza Type B (PCR) (Negative) RSV RNA Qual (PCR) (Negative) SARS-CoV-2 RNA (RT-PCR) (Negative) 10/28/22 Range/Units 10:49 WBC (4.8-10.8) X10*3/uL RBC (4.60-5.80) X10*6/uL Hgb (14.0-18.0) g/dl Hct (42.0-52.0) % MCV (80.0-98.0) fL MCH (27.0-33.0) pg MCHC (31.0-36.0) g/dl RDW (11.0-16.0) % Plt Count (160-400) X10*3/uL MPV (9.4-12.4) fL Immature Gran % (Auto) (0.0-0.4) % Neut % (Auto) (45-73) % Lymph % (Auto) (20-40) % [place] % (Auto) (2-11) % Eos % (Auto) (0-4) % Baso % (Auto) (0-2) % Lymph # (Auto) (1.2-4.9) X10*3/uL [place] # (Auto) (0.1-1.2) X10*3/uL Eos # (Auto) (0.0-0.4) X10*3/uL Baso # (Auto) (0.0-0.2) X10*3/uL Abs Immat Gran (auto) (0.00-0.03) X10*3/uL Absolute Neuts (auto) (2.0-8.3) x10*3/uL Absolute Nucleated RBC (0.0-0.012) X10*3/uL Nucleated RBC % (auto) (0.0-0.2) /100WBC PT (10.0-13.1) SEC INR (0.9-1.1) D-Dimer High Sensitivty NG/ML Sodium (135-145) mmol/L Potassium (3.3-5.1) mmol/L Chloride (96-108) mmol/L Carbon Dioxide (22-29) mmol/L Anion Gap (12-20) BUN (9-16) mg/dL Creatinine (0.5-1.4) mg/dL Estim Creat Clear Calc Estimated GFR Random Glucose (60-115) mg/dL Lactic Acid (0.5-2.0) mmol/L Calcium (8.4-10.2) mg/dL Total Bilirubin (0.0-1.0) mg/dL AST (5-37) U/L ALT (0-40) U/L Alkaline Phosphatase (39-117) U/L Total Creatine Kinase (38-174) U/L Troponin I High Sens (<3.5-35.0) ng/L B-Natriuretic Peptide (<100) pg/mL Total Protein (6.5-8.0) g/dL Albumin (3.5-5.0) g/dL Influenza Type A (PCR) NEGATIVE (Negative) Influenza Type B (PCR) NEGATIVE (Negative) RSV RNA Qual (PCR) NEGATIVE (Negative) SARS-CoV-2 RNA (RT-PCR) POSITIVE A (Negative) Discharge Plan Discharge Clinical Impression: Pneumonia due to COVID-19 virus, Syncope, Renal failure Patient Disposition: Admitted As Inpatient
[2022-10-28] MEDS: Acetaminophen 325 MG TABLET 650 MG PO (10:27)
[2022-10-28] MEDS: Azithromycin 500 MG TABLET PO (10:48)
[2022-10-28] MEDS: cefTRIAXone sodium 1 GM in 0.9 % Sodium Chloride 50 ML IV (10:48)
[2022-10-28 10:52] LABS: MANUAL DIFF FLAG NO
[2022-10-28 10:55] LABS: Basophils Absolute Auto 0.1 X10*3/uL (0.0-0.2); Basophils Percent Auto 0.5 % (0-2); Eosinophils Absolute Auto 0.1 X10*3/uL (0.0-0.4); Eosinophils Percent Auto 0.8 % (0-4); Hematocrit 30.7 % (42.0-52.0); Hemoglobin 9.7 g/dl (14.0-18.0); Imm Gran Abs Auto 0.04 X10*3/uL (0.00-0.03); Imm Gran Pct Auto 0.4 % (0.0-0.4); Lymphocytes Absolute Auto 0.5 X10*3/uL (1.2-4.9); Lymphocytes Percent Auto 5.2 % (20-40); Mean Corpuscular HGB Conc 31.6 g/dl (31.0-36.0); Mean Corpuscular Hemoglobin 30.6 pg (27.0-33.0); Mean Corpuscular Volume 96.8 fL (80.0-98.0); Monocytes Absolute Auto 0.6 X10*3/uL (0.1-1.2); Monocytes Percent Auto 6.5 % (2-11); Neutrophils Absolute Auto 8.3 x10*3/uL (2.0-8.3); Neutrophils Percent Auto 86.6 % (45-73); Platelet Count 255 X10*3/uL (160-400); Red Blood Count 3.17 X10*6/uL (4.60-5.80); Red Cell Distribution Width 16.5 % (11.0-16.0); White Blood Count 9.6 X10*3/uL (4.8-10.8)
[2022-10-28 11:01] LABS: INTERNATIONAL NORM RATIO 1.1 (0.9-1.1); Prothrombin Time 12.4 SEC (10.0-13.1)
[2022-10-28 11:02] LABS: D Dimer High Sensitivity 2522 NG/ML
[2022-10-28 11:04] LABS: Lactic Acid 1.7 mmol/L (0.5-2.0)
[2022-10-28 11:14] LABS: Alanine Aminotransferase 11 U/L (0-40); Albumin Level 2.5 g/dL (3.5-5.0); Alkaline Phosphatase 84 U/L (39-117); Anion Gap 17 (12-20); Aspartate Amino Transferase 22 U/L (5-37); B Type Natriuretic Peptide 213 pg/mL (<100); Bilirubin Total 0.4 mg/dL (0.0-1.0); Blood Urea Nitrogen 33 mg/dL (9-16); Calcium 7.9 mg/dL (8.4-10.2); Carbon Dioxide 18 mmol/L (22-29); Chloride 106 mmol/L (96-108); Creatinine Clr Calc Pharmacy 13.6; Estimated Glomerular Filt Rate 9; Glucose Random 135 mg/dL (60-115); Potassium 4.1 mmol/L (3.3-5.1); Sodium 137 mmol/L (135-145); Total Protein 5.4 g/dL (6.5-8.0)
[2022-10-28 11:17] LABS: Troponin-I High Sensitivity 60.4 ng/L (<3.5-35.0)
[2022-10-28 11:36] LABS: Influenza A PCR NEGATIVE (Negative); Influenza B PCR NEGATIVE (Negative); Resp Syncy Virus RNA Qual PCR NEGATIVE (Negative); SARS COV2 PCR INHOUSE POSITIVE (Negative)
--- NOTE | 2022-10-28 14:35 | PM.IMHP ---
History of Present Illness Date of Service: 10/28/22 Chief Complaint: found on floor 66M PMH severe s/p bioAVR jul 2022, Hfpef, ESRD on HD (from jul 2022) due to nephrotic syndrome, hypothyroid, bph, mood disorder, history of DM and morbid obesity (now resolved with significant weight loss), presented after being found on floor by father. patient has had multiple syncopal episodes in past. is a poor historian. reports not feeling well for about 2 days, with abd pain, cough, weakness, was covid positive 09/09/22, negative 10/03/22. states he fell out of chair and had LOC, was unable to get up. similar to previous presentation. in ED found to have covid pcr positive, moderate loculated right pleural effussion. 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 Social History Household Members: None Housing: Apartment Do you presently have visiting nurse or other home services: No Unable to assess alcohol history related to: Unknown Alcohol intake: former Patient Tobacco Use Status: Former Tobacco user Quit Date: 5 years ago Years Smoked: 30 Second Hand Smoke Exposure: No Advance Directives: No Advance Directives Date on File: 05/01/20 service: No Current occupational status: unemployed and disabled Meds Allergies Allergy/AdvReac Type Severity Reaction Status Date / Time Penicillins Allergy Unknown UNKWN Verified 07/24/22 09:42 Active Medications: Current Medications Vancomycin HCl 1,000 mg/ (Sodium Chloride) 270 mls @ 270 mls/hr IV Q24H ROSALIA Cefepime HCl 1 gm/ Sodium (Chloride) 50 mls @ 100 mls/hr IV Q12H [facility] Pharmacy Consult (Consult Rx Perform Med Rec) 1 each MISCELLANE ONCE PRN PRN Reason: Consult order Pharmacy Consult (Consult Rx Vancomycin Dosing) 1 each MISCELLANE DAILY PRN PRN Reason: Consult order Home Medications Medication Instructions Recorded Confirmed Last Taken Type levothyroxine 75 mcg tablet 75 mcg PO DAILY 06/27/20 10/28/22 07/24/22 History atorvastatin 40 mg tablet 40 mg PO DAILY 02/10/22 10/28/22 07/24/22 History metoprolol tartrate 25 mg tablet 0.5 tab PO DAILY 10/03/22 10/28/22 Unknown History pantoprazole 40 mg tablet,delayed 1 tab PO DAILY 10/03/22 10/28/22 Unknown History release sertraline 25 mg tablet 1 tab PO DAILY 10/03/22 10/28/22 Unknown History tamsulosin 0.4 mg capsule 1 cap PO DAILY 10/03/22 10/28/22 Unknown History Physical Exam Vital Signs and Narrative: Vital Signs: Last Vital Signs Temp 98.9 F 10/28/22 12:17 Pulse 88 10/28/22 14:25 Resp 18 10/28/22 14:25 BP 117/63 10/28/22 14:25 Pulse Ox 95 10/28/22 14:25 O2 Del Method Room Air 10/28/22 13:44 BMI result Body Mass Index 28.1 General: AO X 3, no acute distress Resp: CTA bilateral, no accessory muscles used CVS: S1,S2,RRR GI: soft, non tender, non distended Neuro: motor grossly intact, alert Results Labs 10/28/22 10:49 10/28/22 10:49 Labs: Laboratory Results - last 24 hr 10/28/22 10/28/22 10/28/22 10:49 10:49 10:49 MCV 96.8 MCH 30.6 MCHC 31.6 RDW 16.5 H Plt Count 255 MPV 10.0 Immature Gran % (Auto) 0.4 Neut % (Auto) 86.6 H Lymph % (Auto) 5.2 L [place] % (Auto) 6.5 Eos % (Auto) 0.8 Baso % (Auto) 0.5 Lymph # (Auto) 0.5 L [place] # (Auto) 0.6 Eos # (Auto) 0.1 Baso # (Auto) 0.1 Abs Immat Gran (auto) 0.04 H Absolute Neuts (auto) 8.3 Absolute Nucleated RBC 0.000 Nucleated RBC % (auto) 0.0 PT INR D-Dimer High Sensitivty Anion Gap 17 Estim Creat Clear Calc 13.6 Estimated GFR 9 Random Glucose 135 H Lactic Acid 1.7 Calcium 7.9 L D Total Bilirubin 0.4 AST 22 ALT 11 Alkaline Phosphatase 84 Total Creatine Kinase 774 H Troponin I High Sens B-Natriuretic Peptide Total Protein 5.4 L Albumin 2.5 L Influenza Type A (PCR) Influenza Type B (PCR) RSV RNA Qual (PCR) SARS-CoV-2 RNA (RT-PCR) 10/28/22 10/28/22 10/28/22 10:49 10:49 10:49 MCV MCH MCHC RDW Plt Count MPV Immature Gran % (Auto) Neut % (Auto) Lymph % (Auto) [place] % (Auto) Eos % (Auto) Baso % (Auto) Lymph # (Auto) [place] # (Auto) Eos # (Auto) Baso # (Auto) Abs Immat Gran (auto) Absolute Neuts (auto) Absolute Nucleated RBC Nucleated RBC % (auto) PT 12.4 INR 1.1 D-Dimer High Sensitivty 2522 Anion Gap Estim Creat Clear Calc Estimated GFR Random Glucose Lactic Acid Calcium Total Bilirubin AST ALT Alkaline Phosphatase Total Creatine Kinase Troponin I High Sens 60.4 H D B-Natriuretic Peptide 213 H Total Protein Albumin Influenza Type A (PCR) Influenza Type B (PCR) RSV RNA Qual (PCR) SARS-CoV-2 RNA (RT-PCR) 10/28/22 10:49 MCV MCH MCHC RDW Plt Count MPV Immature Gran % (Auto) Neut % (Auto) Lymph % (Auto) [place] % (Auto) Eos % (Auto) Baso % (Auto) Lymph # (Auto) [place] # (Auto) Eos # (Auto) Baso # (Auto) Abs Immat Gran (auto) Absolute Neuts (auto) Absolute Nucleated RBC Nucleated RBC % (auto) PT INR D-Dimer High Sensitivty Anion Gap Estim Creat Clear Calc Estimated GFR Random Glucose Lactic Acid Calcium Total Bilirubin AST ALT Alkaline Phosphatase Total Creatine Kinase Troponin I High Sens B-Natriuretic Peptide Total Protein Albumin Influenza Type A (PCR) NEGATIVE Influenza Type B (PCR) NEGATIVE RSV RNA Qual (PCR) NEGATIVE SARS-CoV-2 RNA (RT-PCR) POSITIVE A Imaging Radiologist's Impressions: Impressions Chest X-Ray 10/28/22 11:00 IMPRESSION: Posterior loculated right pleural effusion. Question right lung airspace disease or asymmetric distribution of pulmonary edema. Head CT 10/28/22 11:06 IMPRESSION: No acute intracranial findings. Sinus disease. Chest CT 10/28/22 13:01 IMPRESSION: Moderate partially loculated right pleural effusion. Adjacent right lower lobe atelectasis. No definite pneumonia. Small calcified pulmonary nodules probably representing calcified granulomas. Postsurgical change from aortic valve replacement. Fleischner guidelines were followed. Assessment and Plan (1) Syncope: Status: Acute Plan 66M PMH severe s/p bioAVR jul 2022, Hfpef, ESRD on HD (from jul 2022) due to nephrotic syndrome, hypothyroid, bph, mood disorder, history of DM and morbid obesity (now resolved with significant weight loss), presented after being found on floor by father loc? vs mechanical fall PT eval orthostatics tele right loculated pleural effussion ?post covid complicated bacterial pna vanc, cefepim, pulm eval, resp viral panel, urine legionella, urine strep, blood and sputum cultures covid pcr positive ? recurrent vs noninfectious residual virus ESRD due to nephrotic syndrome on HD nephro eval hfpef euvolemic bph flomax mood disorder sertraline dvt prophylaxis - heparin sq full code patient with significant pleural effusion, possible bacterial infection, at risk for further decopmensation due to risk factors of ESRD, recent cardiac surgery, therefore, expected to [facility]. Time Spent With Patient Time: Total time managing care of this patient today ____ minutes. Quality Stroke Does the patient have a stroke diagnosis?: No VTE Prior VTE?: No VTE Risk Level:: Medical - moderate - high VTE Device Contraindication: Treatment Not Indicated VTE Drug Contraindication: N/A - Med Ordered
--- NOTE | 2022-10-28 14:36 | PHA.MEDREC ---
Pharmacy Consult ? Medication Reconciliation Pharmacy has completed the medication reconciliation.Pt doesn't know any of his meds but states he only takes what the pharmacy gives him. Completed med rec using claim history.
--- NOTE | 2022-10-28 14:52 | PHA.PROG ---
Admission Date/Time: October 28, 2022 14:33 Indication: Resp Infection Weight in k.626 kg Adjusted body weight in K.83 kg [place] body weight in K.3 kg Obesity Dosing Indication % IBW: 121% Serum Creatinine - Last 168 Hours 10/28/22 10:49 Creatinine 6.18 H* Estimated CrCl and GFR - Last 168 Hours 10/28/22 10:49 Estim Creat Clear Calc 13.6 Estimated GFR 9 Vancomycin Loading Dose: 1500 mg Current Vancomycin Dosing Regimen: dosed based post diaylsis random Date and Time for next Vancomycin Level to be drawn: post diaylsis Pharmacist Comments on Vancomycin Plan: Patient on HD. Home schedule [facility]. Patient is scheduled for dialysis today per Kaycee in dialysis. Load dose vancomycin 1500 mg is scheduled to be given 10/1222 @ 1800 after dialysis session. Pharmacy will follow daily on dialysis schedule if any extra sessions Kristina Aguirre PharmD Vancomycin dosing will take advantage of [employer] as a clinical decision support tool that uses Bayesian modeling to calculate individual patient's pharmacokinetic parameters and forecast the patient's drug concentration time course with the target goal AUC 24 range of 400 - 600 mg/L/hr.
--- NOTE | 2022-10-28 16:07 | PC.NURSE ---
Pt initially did not want to go to dialysis, this RN in to discuss this with patient. Upon conversation, pt states he does not wish to go to dialysis but he will go if it makes everyone else happy . Patient off to dialysis at this time.
--- NOTE | 2022-10-28 19:03 | PC.NURSE ---
This feature writer assumed care of this Pt at 1900. Pt is currently at dialysis.
--- NOTE | 2022-10-28 21:10 | PC.NURSE ---
RN to RN report given to Pema MCMAHON. Pt currently in dialysis and will be going into room 476.
[2022-10-28] MEDS: Heparin Sodium,Porcine 5,000 UNIT/ML VIAL 5000 UNIT SUBCUT (22:06)
[2022-10-28] MEDS: cefEPime HCl 1 GM in 0.9 % Sodium Chloride 50 ML IV (22:06)
[2022-10-28] MEDS: 0.9 % Sodium Chloride Flush 3 ML SYRINGE IVFLUSH (22:07)
[2022-10-28] MEDS: vancomycin HCL 1,500 MG in 0.9 % Sodium Chloride 500 ML 333.33 MG IV (22:59)
[2022-10-29] VITALS (8 sets, daily range): BP systolic 98–135; BP diastolic 51–78; PULSE 76–122; RESP 18–20; TEMP 36.7–37.8; O2SAT 92–98
[2022-10-29] MEDS: Levothyroxine Sodium 75 MCG TABLET PO (06:04)
[2022-10-29] MEDS: Omeprazole 20 MG CAPSULE.DR PO (06:04)
[2022-10-29] MEDS: Heparin Sodium,Porcine 5,000 UNIT/ML VIAL 5000 UNIT SUBCUT ×3 (06:05→20:53)
--- NOTE | 2022-10-29 07:00 | CA_ITS ---
Transthoracic Echocardiogram/Limited Patient (Last, First, Middle): Milan Angeles C Gender: Male Date of : 1955 Age: 66 Procedure Date: 10/29/2022 Procedure Type: Transthoracic Echocardiogram/Limited Location: [facility] [place] Height: 180.34 cm Weight: 91.63 kg BSA: 2.12 m2 Heart Rate: 80 bpm BP: 106 / 60 mmHg Electric Distribution Engineer: MYA Referring MD: Paul Welch MD Symptoms: bacteremia Study Quality: Adequate ECG Rhythm: Sinus Conclusions: - Endocarditis cannot be ruled out on this study Findings Aortic Valve bioprosthetic aortic valve is present. No gradients were obtained. Leaflets not well visualized. Color Dopplers were not performed Mitral Valve There is moderate anterior and posterior mitral leaflet thickening. There is mild mitral annular calcification. Pulmonic Valve The pulmonic valve was not well visualized. Tricuspid Valve Normal tricuspid valve structure. Recommendations, Care & Conclusions Recommend a MARY. Updated in Other Vendor System with Status of Final Magen Browning MD electronically signed on 10/29/2022 5:15:28 PM with status of Final
[2022-10-29 07:29] LABS: Hematocrit 29.1 % (42.0-52.0); Hemoglobin 9.2 g/dl (14.0-18.0); Mean Corpuscular HGB Conc 31.6 g/dl (31.0-36.0); Mean Corpuscular Hemoglobin 29.6 pg (27.0-33.0); Mean Corpuscular Volume 93.6 fL (80.0-98.0); Platelet Count 189 X10*3/uL (160-400); Red Blood Count 3.11 X10*6/uL (4.60-5.80); Red Cell Distribution Width 16.4 % (11.0-16.0); White Blood Count 6.8 X10*3/uL (4.8-10.8)
--- NOTE | 2022-10-29 07:32 | PC.NURSE ---
Assumed care of patient at this time
[2022-10-29 07:52] LABS: Anion Gap 17 (12-20); Blood Urea Nitrogen 24 mg/dL (9-16); Calcium 7.3 mg/dL (8.4-10.2); Carbon Dioxide 24 mmol/L (22-29); Chloride 100 mmol/L (96-108); Creatinine Clr Calc Pharmacy 18.3; Estimated Glomerular Filt Rate 13; Glucose Fasting 82 mg/dL (60-99); Magnesium 1.9 mg/dL (1.6-2.6); Potassium 3.5 mmol/L (3.3-5.1); Sodium 137 mmol/L (135-145)
[2022-10-29] MEDS: 0.9 % Sodium Chloride Flush 3 ML SYRINGE IVFLUSH ×3 (08:57→20:58)
[2022-10-29] MEDS: Sertraline HCL 25 MG TABLET PO (08:57)
[2022-10-29] MEDS: Tamsulosin HCL 0.4 MG CAPSULE PO (08:57)
[2022-10-29] MEDS: Atorvastatin Calcium 40 MG TABLET PO (08:57)
[2022-10-29] MEDS: Metoprolol Tartrate 12.5 MG HALFTAB PO (08:57)
--- NOTE | 2022-10-29 09:45 | MHC.CM.PN ---
IMM 10/29/22. D/C plan to return home self care when medically cleared. Pt does not want VNA services due to a previous negative experience with them. Pt is disabled and lives with his parents, uses a walker and wheelchair. Pts parents can transport pt. HCP offered, pt declined at this time. PCP: Dr. Segundo Tapia Vax: x 3 pfizer
--- NOTE | 2022-10-29 10:50 | HO.PM.IMPN ---
Subjective Subjective Date of Service: 10/29/22 Interval History: feeling better Physical Exam Vital Signs: Vital Signs: Last Vital Signs Temp 99.0 F 10/29/22 08:00 Pulse 100 10/29/22 08:47 Resp 20 10/29/22 08:00 BP 104/51 L 10/29/22 08:47 Pulse Ox 94 10/29/22 08:00 O2 Del Method Room Air 10/29/22 08:00 BMI result Body Mass Index 28.1 General: AO X 3, no acute distress Resp: CTA bilateral, no accessory muscles used CVS: S1,S2,RRR GI: soft, non tender, non distended Neuro: motor grossly intact, alert Psych: appropriate affect, appropriate insight Objective Data Active Medications Atorvastatin Calcium (Atorvastatin Calcium 40 Mg Tablet) 40 mg PO DAILY [facility] Last Admin: 10/29/22 08:57 Dose: 40 mg Documented By: VIKY Heparin Sodium (Porcine) (Heparin Sodium,Porcine 5,000 Unit/Ml Vial) 5,000 unit SUBCUT Q8H [facility] Last Admin: 10/29/22 06:05 Dose: 5,000 unit Documented By: JUSTINE Cefepime HCl 1 gm/ Sodium (Chloride) 50 mls @ 100 mls/hr IV Q24H [facility] Last Infusion: 10/29/22 01:08 Dose: 0 mls/hr Documented By: JUSTINE Vancomycin HCl 500 mg/ Sodium (Chloride) 110 mls @ 110 mls/hr IV [id number]@1800 [facility] Levothyroxine Sodium (Levothyroxine Sodium 75 Mcg Tablet) 75 mcg PO DAILY@0600 [facility] Last Admin: 10/29/22 06:04 Dose: 75 mcg Documented By: JUSTINE Lidocaine HCl (Lidocaine Hcl 1 % Mpf 2 Ml Vial) 0.5 ml SUBCUT MOWEFR@1645 [facility] Metoprolol Tartrate (Metoprolol Tartrate 12.5 Mg Halftab) 12.5 mg PO DAILY [facility]; Protocol Last Admin: 10/29/22 08:57 Dose: 12.5 mg Documented By: VIKY Omeprazole (Omeprazole 20 Mg Capsule.) 20 mg PO DAILY@0630 [facility] Last Admin: 10/29/22 06:04 Dose: 20 mg Documented By: JUSTINE Pharmacy Consult (Consult Rx Perform Med Rec) 1 each MISCELLANE ONCE PRN PRN Reason: Consult order Pharmacy Consult (Consult Rx Vancomycin Dosing) 1 each MISCELLANE DAILY PRN PRN Reason: Consult order Sertraline HCl (Sertraline Hcl 25 Mg Tablet) 25 mg PO DAILY [facility] Last Admin: 10/29/22 08:57 Dose: 25 mg Documented By: VIKY Sodium Chloride (0.9 % Sodium Chloride Flush 3 Ml Syringe) 3 ml IVFLUSH QSHIFT [facility] Last Admin: 10/29/22 08:57 Dose: 3 ml Documented By: VIKY Tamsulosin HCl (Tamsulosin Hcl 0.4 Mg Capsule) 0.4 mg PO DAILY [facility] Last Admin: 10/29/22 08:57 Dose: 0.4 mg Documented By: VIKY Labs 10/29/22 07:06 10/29/22 07:06 Labs: Laboratory Results - last 24 hr 10/28/22 10/28/22 10/28/22 10:49 10:49 10:49 MCV 96.8 MCH 30.6 MCHC 31.6 RDW 16.5 H Plt Count 255 MPV 10.0 Immature Gran % (Auto) 0.4 Neut % (Auto) 86.6 H Lymph % (Auto) 5.2 L [place] % (Auto) 6.5 Eos % (Auto) 0.8 Baso % (Auto) 0.5 Lymph # (Auto) 0.5 L [place] # (Auto) 0.6 Eos # (Auto) 0.1 Baso # (Auto) 0.1 Abs Immat Gran (auto) 0.04 H Absolute Neuts (auto) 8.3 Absolute Nucleated RBC 0.000 Nucleated RBC % (auto) 0.0 PT INR D-Dimer High Sensitivty Anion Gap 17 Estim Creat Clear Calc 13.6 Estimated GFR 9 Random Glucose 135 H Fasting Glucose Lactic Acid 1.7 Calcium 7.9 L D Magnesium Total Bilirubin 0.4 AST 22 ALT 11 Alkaline Phosphatase 84 Total Creatine Kinase 774 H Troponin I High Sens B-Natriuretic Peptide Total Protein 5.4 L Albumin 2.5 L Influenza Type A (PCR) Influenza Type B (PCR) RSV RNA Qual (PCR) SARS-CoV-2 RNA (RT-PCR) 10/28/22 10/28/22 10/28/22 10:49 10:49 10:49 MCV MCH MCHC RDW Plt Count MPV Immature Gran % (Auto) Neut % (Auto) Lymph % (Auto) [place] % (Auto) Eos % (Auto) Baso % (Auto) Lymph # (Auto) [place] # (Auto) Eos # (Auto) Baso # (Auto) Abs Immat Gran (auto) Absolute Neuts (auto) Absolute Nucleated RBC Nucleated RBC % (auto) PT 12.4 INR 1.1 D-Dimer High Sensitivty 2522 Anion Gap Estim Creat Clear Calc Estimated GFR Random Glucose Fasting Glucose Lactic Acid Calcium Magnesium Total Bilirubin AST ALT Alkaline Phosphatase Total Creatine Kinase Troponin I High Sens 60.4 H D B-Natriuretic Peptide 213 H Total Protein Albumin Influenza Type A (PCR) Influenza Type B (PCR) RSV RNA Qual (PCR) SARS-CoV-2 RNA (RT-PCR) 10/28/22 10/29/22 10/29/22 10:49 07:06 07:06 MCV 93.6 MCH 29.6 MCHC 31.6 RDW 16.4 H Plt Count 189 D MPV 10.0 Immature Gran % (Auto) Neut % (Auto) Lymph % (Auto) [place] % (Auto) Eos % (Auto) Baso % (Auto) Lymph # (Auto) [place] # (Auto) Eos # (Auto) Baso # (Auto) Abs Immat Gran (auto) Absolute Neuts (auto) Absolute Nucleated RBC 0.000 Nucleated RBC % (auto) 0.0 PT INR D-Dimer High Sensitivty Anion Gap 17 Estim Creat Clear Calc 18.3 Estimated GFR 13 Random Glucose Fasting Glucose 82 Lactic Acid Calcium 7.3 L D Magnesium 1.9 Total Bilirubin AST ALT Alkaline Phosphatase Total Creatine Kinase Troponin I High Sens B-Natriuretic Peptide Total Protein Albumin Influenza Type A (PCR) NEGATIVE Influenza Type B (PCR) NEGATIVE RSV RNA Qual (PCR) NEGATIVE SARS-CoV-2 RNA (RT-PCR) POSITIVE A Microbiology Microbiology Results: Microbiology 10/28/22 10:49 Blood Culture - Preliminary Blood - Venous Prelim: GPC Gram Stain only 10/28/22 10:09 Blood Culture - Preliminary Blood - Venous Prelim: GPC Gram Stain only Assessment and Plan (1) Heart failure with preserved ejection fraction: Status: Acute Plan 66M PMH severe s/p bioAVR jul 2022, Hfpef, ESRD on HD (from jul 2022) due to nephrotic syndrome, hypothyroid, bph, mood disorder, history of DM and morbid obesity (now resolved with significant weight loss), presented after being found on floor by father loc? vs mechanical fall PT eval orthostatics negative tele GPC 2/2 bacteremia continue vanc id eval echo follow up species, repeat may need permacath removal right loculated pleural effussion ?post covid complicated bacterial pna vanc, cefepime, pulm eval, resp viral panel, urine legionella, urine strep, blood and sputum cultures covid pcr positive ? recurrent vs noninfectious residual virus ESRD due to nephrotic syndrome on HD nephro eval hfpef euvolemic bph flomax mood disorder sertraline dvt prophylaxis - heparin sq full code reason for continued hospitalization:bacteremia Time Spent With Patient Time: Total time managing care of this patient today ____ minutes. Quality Stroke Does the patient have a stroke diagnosis?: No VTE Prior VTE?: No VTE Risk Level:: Medical - moderate - high VTE Device Contraindication: Treatment Not Indicated VTE Drug Contraindication: N/A - Med Ordered
--- NOTE | 2022-10-29 13:04 | PM.CNPUL ---
History of Present Illness History of Present Illness Consult date: 10/29/22 Chief complaint: PNA Narrative: This is an inpatient pulmonary consultation. The patient is a 66 y/o man with a PMH severe s/p bioAVR jul 2022, Hfpef, ESRD on HD (from jul 2022) due to nephrotic syndrome, presented after being found on floor by father. patient has had multiple syncopal episodes in past. is a poor historian. reports not feeling well for about 2 days, with abd pain, cough, weakness, was covid positive 09/09/22, negative 10/03/22. states he fell out of chair and had LOC, was unable to get up. similar to previous presentation. in ED found to have covid pcr positive, moderate loculated right pleural effussion. The patient admitted to the hospital. Blood cultures are positive for Staph aureus. This is consistent with a postviral Staph aureus pneumonia now with a complicated parapneumonic effusion. Unfortunately because it appears to be partially loculated he would benefit from drainage hopefully we can drain it without needing more aggressive interventions. Review of Systems Constitutional: Comments: Positive fevers and general malaise Eyes: Comments: No vision changes ENT: Comments: Positive rhinorrhea Cardiovascular: Comments: Syncope. No palpitations or chest pain Respiratory: Comments: Cough without sputum. No dyspnea Gastrointestinal: Comments: No abdominal pain or nausea vomiting diarrhea Genitourinary: Comments: No urinary symptoms, patient with end-stage renal disease on hemodialysis Musculoskeletal: Comments: No injuries in his fall Neurologic: Comments: General weakness but no focal neurologic weakness PMF Past Medical History Medical History (Updated 10/29/22 @ 13:08 by Andres Galloway MD) Acute hypokalemia Acute on chronic renal failure Anasarca associated with disorder of kidney Anasarca associated with disorder of kidney Aortic stenosis CHF (congestive heart failure), NYHA class I CKD (chronic kidney disease) stage 3, GFR 30-59 ml/min Congestive heart failure Congestive heart failure Diabetes 1.5, managed as type 2 Diverticulosis Hiatal hernia History of small bowel obstruction Hyperlipidemia Hypertension 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 Social History Social History Household Members: None Housing: Apartment Do you presently have visiting nurse or other home services: No Unable to assess alcohol history related to: Unknown Alcohol intake: former Patient Tobacco Use Status: Former Tobacco user Quit Date: 5 years ago Tobacco use type: Cigarette Years Smoked: 30 Second Hand Smoke Exposure: No Advance Directives Date on File: 05/01/20 service: No Current occupational status: unemployed and disabled Meds Allergies Allergy/AdvReac Type Severity Reaction Status Date / Time Penicillins Allergy Unknown UNKWN Verified 07/24/22 09:42 Active Medications: Current Medications Atorvastatin Calcium (Atorvastatin Calcium 40 Mg Tablet) 40 mg PO DAILY [facility] Last Admin: 10/29/22 08:57 Dose: 40 mg Heparin Sodium (Porcine) (Heparin Sodium,Porcine 5,000 Unit/Ml Vial) 5,000 unit SUBCUT Q8H [facility] Last Admin: 10/29/22 06:05 Dose: 5,000 unit Cefepime HCl 1 gm/ Sodium (Chloride) 50 mls @ 100 mls/hr IV Q24H [facility] Last Infusion: 10/29/22 01:08 Dose: Infused Vancomycin HCl 500 mg/ Sodium (Chloride) 110 mls @ 110 mls/hr IV MoWeFr@1800 [facility] Levothyroxine Sodium (Levothyroxine Sodium 75 Mcg Tablet) 75 mcg PO DAILY@0600 [facility] Last Admin: 10/29/22 06:04 Dose: 75 mcg Lidocaine HCl (Lidocaine Hcl 1 % Mpf 2 Ml Vial) 0.5 ml SUBCUT [id number]@1645 [facility] Metoprolol Tartrate (Metoprolol Tartrate 12.5 Mg Halftab) 12.5 mg PO DAILY [facility]; Protocol Last Admin: 10/29/22 08:57 Dose: 12.5 mg Omeprazole (Omeprazole 20 Mg Capsule.Dr) 20 mg PO DAILY@0630 [facility] Last Admin: 10/29/22 06:04 Dose: 20 mg Pharmacy Consult (Consult Rx Perform Med Rec) 1 each MISCELLANE ONCE PRN PRN Reason: Consult order Pharmacy Consult (Consult Rx Vancomycin Dosing) 1 each MISCELLANE DAILY PRN PRN Reason: Consult order Sertraline HCl (Sertraline Hcl 25 Mg Tablet) 25 mg PO DAILY [facility] Last Admin: 10/29/22 08:57 Dose: 25 mg Sodium Chloride (0.9 % Sodium Chloride Flush 3 Ml Syringe) 3 ml IVFLUSH QSHIFT [facility] Last Admin: 10/29/22 08:57 Dose: 3 ml Tamsulosin HCl (Tamsulosin Hcl 0.4 Mg Capsule) 0.4 mg PO DAILY [facility] Last Admin: 10/29/22 08:57 Dose: 0.4 mg Home Medications Medication Instructions Recorded Confirmed Last Taken Type levothyroxine 75 mcg tablet 75 mcg PO DAILY 06/27/20 10/28/22 07/24/22 History atorvastatin 40 mg tablet 40 mg PO DAILY 02/10/22 10/28/22 07/24/22 History metoprolol tartrate 25 mg tablet 0.5 tab PO DAILY 10/03/22 10/28/22 Unknown History pantoprazole 40 mg tablet,delayed 1 tab PO DAILY 10/03/22 10/28/22 Unknown History release sertraline 25 mg tablet 1 tab PO DAILY 10/03/22 10/28/22 Unknown History tamsulosin 0.4 mg capsule 1 cap PO DAILY 10/03/22 10/28/22 Unknown History Physical Exam Vital Signs: Vital Signs: Last Vital Signs Temp 98.1 F 10/29/22 11:40 Pulse 76 10/29/22 11:40 Resp 20 10/29/22 11:40 BP 98/55 L 10/29/22 11:40 Pulse Ox 92 10/29/22 11:40 O2 Del Method Room Air 10/29/22 11:40 BMI result Body Mass Index 28.1 Const: General: comfortable Neck: Neck: Yes supple Chest: Chest palpation & inspection: normal inspection of the chest Resp: Effort & Inspection: normal respiratory effort Results Laboratory Findings 10/29/22 07:06 10/29/22 07:06 ABG, PT/INR, D-dimer: PT/INR, D-dimer PT 12.4 SEC (10.0-13.1) 10/28/22 10:49 INR 1.1 (0.9-1.1) 10/28/22 10:49 Abnormal lab findings: Abnormal Labs 10/28/22 10/28/22 10/28/22 10:49 10:49 10:49 RBC 3.17 L D Hgb 9.7 L Hct 30.7 L RDW 16.5 H Neut % (Auto) 86.6 H Lymph % (Auto) 5.2 L Lymph # (Auto) 0.5 L Abs Immat Gran (auto) 0.04 H Carbon Dioxide 18 L BUN 33 H Creatinine 6.18 H* Random Glucose 135 H Calcium 7.9 L D Total Creatine Kinase 774 H Troponin I High Sens 60.4 H D B-Natriuretic Peptide Total Protein 5.4 L Albumin 2.5 L SARS-CoV-2 RNA (RT-PCR) 10/28/22 10/28/22 10/29/22 10:49 10:49 07:06 RBC 3.11 L Hgb 9.2 L Hct 29.1 L RDW 16.4 H Neut % (Auto) Lymph % (Auto) Lymph # (Auto) Abs Immat Gran (auto) Carbon Dioxide BUN Creatinine Random Glucose Calcium Total Creatine Kinase Troponin I High Sens B-Natriuretic Peptide 213 H Total Protein Albumin SARS-CoV-2 RNA (RT-PCR) POSITIVE A 10/29/22 07:06 RBC Hgb Hct RDW Neut % (Auto) Lymph % (Auto) Lymph # (Auto) Abs Immat Gran (auto) Carbon Dioxide BUN 24 H Creatinine 4.59 H* Random Glucose Calcium 7.3 L D Total Creatine Kinase Troponin I High Sens B-Natriuretic Peptide Total Protein Albumin SARS-CoV-2 RNA (RT-PCR) Microbiology: Microbiology 10/28/22 10:09 Blood - Venous Blood Culture - Preliminary Staphylococcus aureus 10/28/22 10:49 Blood - Venous Blood Culture - Preliminary Staphylococcus aureus Assessment and Plan (1) COVID-19: Status: Acute Hypogammaglobulenemia, not able to clear the infection (2) Staphylococcal pneumonia: Status: Acute (3) Pleural effusion: Status: Acute complicated pleural effusion Plan Continue anti staph Abx Would recommend thoracentesis with the hopes it still can drain. If it does not drain well, then leaving a cathter to admister TPA/Dnase may be helpful. Check Igg levels, if critically low shuould have IVIG 40gm IV x 1 Time Spent With Patient Time: Total time managing care of this patient today ____ minutes. Procedures Date of Service Date of Service: 10/29/22
--- NOTE | 2022-10-29 15:41 | P.CONNP_ITS ---
History of Present Illness Reason for Consult Consult date: 10/29/22 Chief Complaint Chief complaint: PNA History of Present Illness Narrative: 66M PMH severe s/p bioprosthetic AVR in jul 2022, ESRD on HD (from jul 2022) - MW, presented after being found on floor . patient has had multiple syncopal episodes in past. is a poor historian. reports not feeling well for about 2 days, with abd pain, cough, weakness, was covid positive 09/09/22, negative 10/03/22. states he fell out of chair and had LOC, was unable to get up. similar to previous presentation. in ED found to have covid pcr positive, moderate loculated right pleural effusion. Nephrology was consulted to assist in his clinical care during his current hospital stay Review of Systems Review of Systems Yes all other systems are reviewed and are negative [facility] Past Medical History Medical History (Updated 10/29/22 @ 15:46 by Sergio Hart MD) Acute hypokalemia Acute on chronic renal failure Anasarca associated with disorder of kidney Anasarca associated with disorder of kidney Aortic stenosis CHF (congestive heart failure), NYHA class I CKD (chronic kidney disease) stage 3, GFR 30-59 ml/min Congestive heart failure Congestive heart failure Diabetes 1.5, managed as type 2 Diverticulosis Hiatal hernia History of small bowel obstruction Hyperlipidemia Hypertension 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 Social History Social History Household Members: None Housing: Apartment Do you presently have visiting nurse or other home services: No Unable to assess alcohol history related to: Unknown Alcohol intake: former Patient Tobacco Use Status: Former Tobacco user Quit Date: 5 years ago Tobacco use type: Cigarette Years Smoked: 30 Second Hand Smoke Exposure: No Advance Directives Date on File: 05/01/20 service: No Current occupational status: unemployed and disabled Meds Allergies Allergy/AdvReac Type Severity Reaction Status Date / Time Penicillins Allergy Unknown UNKWN Verified 07/24/22 09:42 Active Medications: Current Medications Atorvastatin Calcium (Atorvastatin Calcium 40 Mg Tablet) 40 mg PO DAILY [facility] Last Admin: 10/29/22 08:57 Dose: 40 mg Heparin Sodium (Porcine) (Heparin Sodium,Porcine 5,000 Unit/Ml Vial) 5,000 unit SUBCUT Q8H [facility] Last Admin: 10/29/22 06:05 Dose: 5,000 unit Cefepime HCl 1 gm/ Sodium (Chloride) 50 mls @ 100 mls/hr IV Q24H [facility] Last Infusion: 10/29/22 01:08 Dose: Infused Vancomycin HCl 500 mg/ Sodium (Chloride) 110 mls @ 110 mls/hr IV MoWeFr@1800 [facility] Levothyroxine Sodium (Levothyroxine Sodium 75 Mcg Tablet) 75 mcg PO DAILY@0600 [facility] Last Admin: 10/29/22 06:04 Dose: 75 mcg Lidocaine HCl (Lidocaine Hcl 1 % Mpf 2 Ml Vial) 0.5 ml SUBCUT MOWEFR@1645 [facility] Metoprolol Tartrate (Metoprolol Tartrate 12.5 Mg Halftab) 12.5 mg PO DAILY [facility]; Protocol Last Admin: 10/29/22 08:57 Dose: 12.5 mg Omeprazole (Omeprazole 20 Mg Capsule.) 20 mg PO DAILY@0630 [facility] Last Admin: 10/29/22 06:04 Dose: 20 mg Pharmacy Consult (Consult Rx Perform Med Rec) 1 each MISCELLANE ONCE PRN PRN Reason: Consult order Pharmacy Consult (Consult Rx Vancomycin Dosing) 1 each MISCELLANE DAILY PRN PRN Reason: Consult order Sertraline HCl (Sertraline Hcl 25 Mg Tablet) 25 mg PO DAILY [facility] Last Admin: 10/29/22 08:57 Dose: 25 mg Sodium Chloride (0.9 % Sodium Chloride Flush 3 Ml Syringe) 3 ml IVFLUSH QSHIFT [facility] Last Admin: 10/29/22 08:57 Dose: 3 ml Tamsulosin HCl (Tamsulosin Hcl 0.4 Mg Capsule) 0.4 mg PO DAILY [facility] Last Admin: 10/29/22 08:57 Dose: 0.4 mg Home Medications Medication Instructions Recorded Confirmed Last Taken Type levothyroxine 75 mcg tablet 75 mcg PO DAILY 06/27/20 10/28/22 07/24/22 History atorvastatin 40 mg tablet 40 mg PO DAILY 02/10/22 10/28/22 07/24/22 History metoprolol tartrate 25 mg tablet 0.5 tab PO DAILY 10/03/22 10/28/22 Unknown History pantoprazole 40 mg tablet,delayed 1 tab PO DAILY 10/03/22 10/28/22 Unknown History release sertraline 25 mg tablet 1 tab PO DAILY 10/03/22 10/28/22 Unknown History tamsulosin 0.4 mg capsule 1 cap PO DAILY 10/03/22 10/28/22 Unknown History Physical Exam Vital Signs: Last Vital Signs Temp 98.1 F 10/29/22 11:40 Pulse 76 10/29/22 14:21 Resp 20 10/29/22 11:40 BP 98/55 L 10/29/22 14:21 Pulse Ox 92 10/29/22 14:21 O2 Del Method Room Air 10/29/22 11:40 BMI result Body Mass Index 28.1 Const General: no acute distress Eyes EOM: EOMs intact bilaterally Neck Neck: Yes supple Resp Auscultation: diminished lung sounds Cardio Rate: regular rate GI Palpation (GI): Soft to palpation Neuro General: moves all extremities Results Lab Results 10/29/22 07:06 10/29/22 07:06 Lab results: Chemistry 10/28/22 10/29/22 10:49 07:06 Sodium 137 137 Potassium 4.1 3.5 Carbon Dioxide 18 L 24 BUN 33 H 24 H Creatinine 6.18 H* 4.59 H* Calcium 7.9 L D 7.3 L D Hematology 10/28/22 10/29/22 10:49 07:06 WBC 9.6 6.8 Hgb 9.7 L 9.2 L Plt Count 255 189 D Assessment and Plan (1) ESRD on dialysis: Status: Acute Plan Usually gets HD on MWF Next HD tomorrow( Orders in- HD RN aware) 2 Gram Na/2 Gram K diet; Phos/ Fluid restriction Phos binders with meals; Could D/C Tamsulosin; Vancomycin post HD If BP running low, could switch metoprolol to low dose carvedilol( 3.125 mg bid) Procedures Date of Service Date of Service: 10/29/22
[2022-10-29] MEDS: cefEPime HCl 1 GM in 0.9 % Sodium Chloride 50 ML IV (17:14)
[2022-10-30] VITALS (7 sets, daily range): BP systolic 100–112; BP diastolic 56–66; PULSE 64–76; RESP 18–20; TEMP 36.4–36.7; O2SAT 94–97
[2022-10-30] MEDS: Levothyroxine Sodium 75 MCG TABLET PO (05:31)
[2022-10-30] MEDS: Omeprazole 20 MG CAPSULE.DR PO (05:31)
[2022-10-30] MEDS: Heparin Sodium,Porcine 5,000 UNIT/ML VIAL 5000 UNIT SUBCUT ×3 (05:31→21:04)
[2022-10-30 07:04] LABS: Hematocrit 26.7 % (42.0-52.0); Hemoglobin 8.7 g/dl (14.0-18.0); Mean Corpuscular HGB Conc 32.6 g/dl (31.0-36.0); Mean Corpuscular Volume 92.1 fL (80.0-98.0); Mean Platelet Volume 10.6 fL (9.4-12.4); Platelet Count 207 X10*3/uL (160-400); Red Cell Distribution Width 15.8 % (11.0-16.0); White Blood Count 6.9 X10*3/uL (4.8-10.8)
[2022-10-30 07:21] LABS: Anion Gap 16 (12-20); Blood Urea Nitrogen 39 mg/dL (9-16); Carbon Dioxide 23 mmol/L (22-29); Chloride 101 mmol/L (96-108); Creatinine Clr Calc Pharmacy 13.4; Estimated Glomerular Filt Rate 9; Glucose Fasting 101 mg/dL (60-99); Potassium 3.4 mmol/L (3.3-5.1); Sodium 137 mmol/L (135-145)
--- NOTE | 2022-10-30 10:18 | HO.PM.IMPN ---
Subjective Subjective Date of Service: 10/30/22 Interval History: feeling better Physical Exam Vital Signs: Vital Signs: Last Vital Signs Temp 97.9 F 10/30/22 08:00 Pulse 76 10/30/22 08:00 Resp 20 10/30/22 08:00 BP 100/66 10/30/22 08:00 Pulse Ox 95 10/30/22 08:00 O2 Del Method Room Air 10/30/22 08:00 BMI result Body Mass Index 28.1 Const: General: no acute distress Eyes: EOM: EOMs intact bilaterally Neck: Neck: Yes supple Resp: Auscultation: diminished lung sounds Cardio: Rate: regular rate GI: Palpation (GI): Soft to palpation Neuro: General: moves all extremities Objective Data Active Medications Atorvastatin Calcium (Atorvastatin Calcium 40 Mg Tablet) 40 mg PO DAILY [facility] Last Admin: 10/29/22 08:57 Dose: 40 mg Documented By: VIKY Heparin Sodium (Porcine) (Heparin Sodium,Porcine 5,000 Unit/Ml Vial) 5,000 unit SUBCUT Q8H [facility] Last Admin: 10/30/22 05:31 Dose: 5,000 unit Documented By: JUSTINE Cefepime HCl 1 gm/ Sodium (Chloride) 50 mls @ 100 mls/hr IV Q24H [facility] Last Infusion: 10/29/22 18:09 Dose: 0 mls/hr Documented By: VIKY Vancomycin HCl 500 mg/ Sodium (Chloride) 110 mls @ 110 mls/hr IV MoWeFr@1800 [facility] Levothyroxine Sodium (Levothyroxine Sodium 75 Mcg Tablet) 75 mcg PO DAILY@0600 [facility] Last Admin: 10/30/22 05:31 Dose: 75 mcg Documented By: JUSTINE Lidocaine HCl (Lidocaine Hcl 1 % Mpf 2 Ml Vial) 0.5 ml SUBCUT MOWEFR@1645 [facility] Metoprolol Tartrate (Metoprolol Tartrate 12.5 Mg Halftab) 12.5 mg PO DAILY [facility]; Protocol Last Admin: 10/29/22 08:57 Dose: 12.5 mg Documented By: VIKY Omeprazole (Omeprazole 20 Mg Alex.) 20 mg PO DAILY@0630 [facility] Last Admin: 10/30/22 05:31 Dose: 20 mg Documented By: JUSTINE Pharmacy Consult (Consult Rx Perform Med Rec) 1 each MISCELLANE ONCE PRN PRN Reason: Consult order Pharmacy Consult (Consult Rx Vancomycin Dosing) 1 each MISCELLANE DAILY PRN PRN Reason: Consult order Sertraline HCl (Sertraline Hcl 25 Mg Tablet) 25 mg PO DAILY [facility] Last Admin: 10/29/22 08:57 Dose: 25 mg Documented By: VIKY Sodium Chloride (0.9 % Sodium Chloride Flush 3 Ml Syringe) 3 ml IVFLUSH QSHIFT [facility] Last Admin: 10/29/22 20:58 Dose: 3 ml Documented By: JUSTINE Tamsulosin HCl (Tamsulosin Hcl 0.4 Mg Capsule) 0.4 mg PO DAILY [facility] Last Admin: 10/29/22 08:57 Dose: 0.4 mg Documented By: VIKY Labs 10/30/22 06:45 10/30/22 06:45 Labs: Laboratory Results - last 24 hr 10/30/22 10/30/22 06:45 06:45 MCV 92.1 MCH 30.0 MCHC 32.6 RDW 15.8 Plt Count 207 MPV 10.6 Absolute Nucleated RBC 0.000 Nucleated RBC % (auto) 0.0 Anion Gap 16 Estim Creat Clear Calc 13.4 Estimated GFR 9 Fasting Glucose 101 H Calcium 7.0 L Microbiology Microbiology Results: Microbiology 10/28/22 10:09 Blood Culture - Preliminary Blood - Venous Staphylococcus aureus 10/28/22 10:49 Blood Culture - Preliminary Blood - Venous Staphylococcus aureus Assessment and Plan (1) Heart failure with preserved ejection fraction: Status: Acute Plan 66M PMH severe s/p bioAVR jul 2022, Hfpef, ESRD on HD (from jul 2022) due to nephrotic syndrome, hypothyroid, bph, mood disorder, history of DM and morbid obesity (now resolved with significant weight loss), presented after being found on floor by father loc? vs mechanical fall PT eval pending orthostatics negative staph aureus bacteremia continue vanc id eval echo - no obvious vegetation follow up sensitivity, repeat plan for permacath removal right loculated pleural effussion ?post covid complicated bacterial pna vanc, cefepime, pulm appreciated - will pursue throcacentesis covid pcr positive ? recurrent vs noninfectious residual virus ESRD due to nephrotic syndrome on HD nephro eval hfpef euvolemic bph flomax mood disorder sertraline dvt prophylaxis - heparin sq full code reason for continued hospitalization:bacteremia Time Spent With Patient Time: Total time managing care of this patient today ____ minutes. Quality Stroke Does the patient have a stroke diagnosis?: No VTE Prior VTE?: No VTE Risk Level:: Medical - moderate - high VTE Device Contraindication: Treatment Not Indicated VTE Drug Contraindication: N/A - Med Ordered
[2022-10-30] MEDS: Tamsulosin HCL 0.4 MG CAPSULE PO (10:26)
[2022-10-30] MEDS: Metoprolol Tartrate 12.5 MG HALFTAB PO (10:26)
[2022-10-30] MEDS: Atorvastatin Calcium 40 MG TABLET PO (10:26)
[2022-10-30] MEDS: Sertraline HCL 25 MG TABLET PO (10:27)
[2022-10-30] MEDS: 0.9 % Sodium Chloride Flush 3 ML SYRINGE IVFLUSH ×3 (10:27→21:13)
--- NOTE | 2022-10-30 10:36 | PC.NURSE ---
Pt alert and oriented, high fall risk, refuse camera in room. Pt educated on using the call light for assistance,pt verbalized and demonstrated understanding.
--- NOTE | 2022-10-30 11:45 | HO.RADPN ---
RADIOLOGY Narrative Narrative: Right thoracentesis using 4 fr catheter. Loculated thick wall effusion. 20 mL old appearing blood aspirated. Specimen sent.
[2022-10-30] MEDS: Lidocaine HCl 1 % MPF 5 ML VIAL 10 ML SUBCUT (12:06)
--- NOTE | 2022-10-30 12:51 | MHC.CM.PN ---
Addendum entered by Erika Metzger RN 10/30/22 12:59: CLARIFICATION: ANTIC DIRECTOR OF NURSES REGISTRY IV ABX WILL BE DONE AT [facility]. Original Note: EMR REVIEWED, PT W/STAPH A BACTEREMIA AND ON HD IN [place], PT CURRENTLY AT DIALYSIS, BC'S PENDING, PER HOSPITALIST PT WILL NEED INFECTED PERMACATH REMOVED PRIOR TO D/C, ANTIC PT WILL REMAIN INPT UNTIL MID WEEK AND WILL NEED DIRECTOR OF NURSES REGISTRY IV ABX, ANTIC PT WILL NEED STR IF UNABLE TO DO IV ABX AT HOME, CM UNSURE IF ELDERLY PARENTS WOULD BE ABLE TO ASSIST OR IF PT IS ABLE TO DO INDEP, CM WILL REVISIT W/PT ONCE HE RETURNS TO UNIT AND CONT TO FOLLOW D/C NEEDS.
[2022-10-30 12:59] LABS: MN% 92.4 %; PMN% 7.6 %; RBC Pleural Fluid 0.019 X10*3/uL; WBC Pleural Fluid 0.268 X10*3/uL
[2022-10-30 13:38] LABS: Eosinophils Pleural Fluid 2 %; Lymphocytes Pleural Fluid 29 %; Monocytes Pleural Fluid 32 %; Neutrophils Pleural Fluid 14 %
[2022-10-30 13:39] LABS: BF Shift QC OK YES; Man Diluent Bkgrd OK YES; Other Cells Plerual Fl 23 %
--- NOTE | 2022-10-30 14:34 | P.CNID_ITS ---
History of Present Illness Data of Consult Service Date: 10/30/22 Requesting physician: Paul Welch Primary Care Provider: Segundo Tapia MD HPI Reason for consult: pleural effusion,bacteremia He presents with weakness and shortness of breath for a day. He has no fever or chills now. He has MSSA bacteremia. He has PCN allergy. He has loculated fluid,culture pending. 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 Social History Social History Household Members: None Housing: Apartment Do you presently have visiting nurse or other home services: No Unable to assess alcohol history related to: Unknown Alcohol intake: former Patient Tobacco Use Status: Former Tobacco user Quit Date: 5 years ago Tobacco use type: Cigarette Years Smoked: 30 Second Hand Smoke Exposure: No Advance Directives Date on File: 05/01/20 service: No Current occupational status: unemployed and disabled Meds Allergies Allergy/AdvReac Type Severity Reaction Status Date / Time Penicillins Allergy Unknown UNKWN Verified 07/24/22 09:42 Active Medications: Current Medications Atorvastatin Calcium (Atorvastatin Calcium 40 Mg Tablet) 40 mg PO DAILY [facility] Last Admin: 10/30/22 10:26 Dose: 40 mg Heparin Sodium (Porcine) (Heparin Sodium,Porcine 5,000 Unit/Ml Vial) 5,000 unit SUBCUT Q8H [facility] Last Admin: 10/30/22 05:31 Dose: 5,000 unit Cefepime HCl 1 gm/ Sodium (Chloride) 50 mls @ 100 mls/hr IV Q24H [facility] Last Infusion: 10/29/22 18:09 Dose: Infused Vancomycin HCl 500 mg/ Sodium (Chloride) 110 mls @ 110 mls/hr IV MoWeFr@1800 [facility] Levothyroxine Sodium (Levothyroxine Sodium 75 Mcg Tablet) 75 mcg PO DAILY@0600 [facility] Last Admin: 10/30/22 05:31 Dose: 75 mcg Lidocaine HCl (Lidocaine Hcl 1 % Mpf 2 Ml Vial) 0.5 ml SUBCUT MOWEFR@1645 [facility] Metoprolol Tartrate (Metoprolol Tartrate 12.5 Mg Halftab) 12.5 mg PO DAILY [facility]; Protocol Last Admin: 10/30/22 10:26 Dose: 12.5 mg Omeprazole (Omeprazole 20 Mg Capsule.Dr) 20 mg PO DAILY@0630 [facility] Last Admin: 10/30/22 05:31 Dose: 20 mg Pharmacy Consult (Consult Rx Perform Med Rec) 1 each MISCELLANE ONCE PRN PRN Reason: Consult order Pharmacy Consult (Consult Rx Vancomycin Dosing) 1 each MISCELLANE DAILY PRN PRN Reason: Consult order Sertraline HCl (Sertraline Hcl 25 Mg Tablet) 25 mg PO DAILY [facility] Last Admin: 10/30/22 10:27 Dose: 25 mg Sodium Chloride (0.9 % Sodium Chloride Flush 3 Ml Syringe) 3 ml IVFLUSH QSHIFT [facility] Last Admin: 10/30/22 10:27 Dose: 3 ml Tamsulosin HCl (Tamsulosin Hcl 0.4 Mg Capsule) 0.4 mg PO DAILY [facility] Last Admin: 10/30/22 10:26 Dose: 0.4 mg Home Medications Medication Instructions Recorded Confirmed Last Taken Type levothyroxine 75 mcg tablet 75 mcg PO DAILY 06/27/20 10/28/22 07/24/22 History atorvastatin 40 mg tablet 40 mg PO DAILY 02/10/22 10/28/22 07/24/22 History metoprolol tartrate 25 mg tablet 0.5 tab PO DAILY 10/03/22 10/28/22 Unknown History pantoprazole 40 mg tablet,delayed 1 tab PO DAILY 10/03/22 10/28/22 Unknown History release sertraline 25 mg tablet 1 tab PO DAILY 10/03/22 10/28/22 Unknown History tamsulosin 0.4 mg capsule 1 cap PO DAILY 10/03/22 10/28/22 Unknown History Physical Exam Vital Signs: Vital Signs: Last Vital Signs Temp 98.0 F 10/30/22 12:00 Pulse 68 10/30/22 12:00 Resp 20 10/30/22 12:00 BP 111/66 10/30/22 12:00 Pulse Ox 97 10/30/22 12:00 O2 Del Method Room Air 10/30/22 12:00 BMI result Body Mass Index 28.1 Const: General: cooperative HEENT: Head: Yes normal to inspection Face and sinus: Yes normal facial exam Mouth: Normal oral and palatal mucosa present Teeth and gingiva: dentition normal Eyes: General: appearance normal, both eyes and all related structures Pup ils: Equal, round and reactive pupils present Resp: Effort & Inspection: normal respiratory effort Cardio: Rate: regular rate Rhythm: regular rhythm GI: Palpation (GI): Soft to palpation and nontender : General: Yes no CVA tenderness Back/Spine/Pelvis: Back: no CVA tenderness Skin: General skin exam: no rashes or lesions noted Neuro: General: moves all extremities Cranial nerves: Yes Equal, round and reactive pupils present Extrem: General: Yes normal to inspection Psych: Appearance: grossly normal Results Labs 10/30/22 06:45 10/30/22 06:45 Labs: Short CBC 10/30/22 Range/Units 06:45 WBC 6.9 (4.8-10.8) X10*3/uL Hgb 8.7 L (14.0-18.0) g/dl Hct 26.7 L (42.0-52.0) % Plt Count 207 (160-400) X10*3/uL BMP 10/30/22 06:45 Sodium 137 Potassium 3.4 Chloride 101 Carbon Dioxide 23 BUN 39 H Creatinine 6.23 H* Calcium 7.0 L Microbiology Microbiology Results: Microbiology 10/28/22 10:49 Blood - Venous Blood Culture - Preliminary Staphylococcus aureus 10/28/22 10:09 Blood - Venous Blood Culture - Preliminary Staphylococcus aureus Assessment and Plan (1) ESRD on dialysis: Status: Acute He has MSSA bactermia but allergy unknown to Penicillin. He is on Vancomycin Pleural fluid studies pending (2) Pleural effusion: Status: Acute (3) Staphylococcal pneumonia: Status: Acute Plan Continue antibiotic Vancomycin prob four weeks with HD. Dialysis cath likely source removed and when blood cultures clear new one to be placed. May stop Cefepime and await cultures. Time Spent With Patient Time: Total time managing care of this patient today ____ minutes.
--- NOTE | 2022-10-30 16:50 | HO.RADPN ---
RADIOLOGY Narrative Narrative: RIJ permacath removed. Tip sent for culture.
[2022-10-30] MEDS: cefEPime HCl 1 GM in 0.9 % Sodium Chloride 50 ML IV (18:13)
[2022-10-30 18:32] LABS: Vancomycin Random 9.8 mcg/mL (15-20)
[2022-10-30 18:57] LABS: pH Pleural Fluid 7.57
[2022-10-30] MEDS: vancomycin HCL 500 MG in 0.9 % Sodium Chloride 100 ML 110 MG IV (21:05)
[2022-10-31 04:00] VITALS: BP 100/55; PULSE 78; RESP 16; TEMP 36.7; O2SAT 96
[2022-10-31] MEDS: Omeprazole 20 MG CAPSULE.DR PO (05:37)
[2022-10-31] MEDS: Levothyroxine Sodium 75 MCG TABLET PO (05:37)
[2022-10-31] MEDS: Heparin Sodium,Porcine 5,000 UNIT/ML VIAL 5000 UNIT SUBCUT ×3 (05:37→21:09)
[2022-10-31 07:35] LABS: Hematocrit 27.3 % (42.0-52.0); Mean Corpuscular Hemoglobin 30.2 pg (27.0-33.0); Mean Corpuscular Volume 91.6 fL (80.0-98.0); Mean Platelet Volume 10.5 fL (9.4-12.4); Platelet Count 239 X10*3/uL (160-400); Red Blood Count 2.98 X10*6/uL (4.60-5.80); Red Cell Distribution Width 15.7 % (11.0-16.0); White Blood Count 6.9 X10*3/uL (4.8-10.8)
[2022-10-31 07:56] LABS: Anion Gap 12 (12-20); Blood Urea Nitrogen 27 mg/dL (9-16); Calcium 7.7 mg/dL (8.4-10.2); Carbon Dioxide 26 mmol/L (22-29); Chloride 103 mmol/L (96-108); Creatinine Clr Calc Pharmacy 15.8; Estimated Glomerular Filt Rate 11; Glucose Fasting 103 mg/dL (60-99); Potassium 3.3 mmol/L (3.3-5.1); Sodium 138 mmol/L (135-145)
[2022-10-31 08:00] VITALS: BP 120/59; PULSE 73; TEMP 36.9; O2SAT 98
[2022-10-31] MEDS: Sertraline HCL 25 MG TABLET PO (09:02)
[2022-10-31] MEDS: Tamsulosin HCL 0.4 MG CAPSULE PO (09:02)
[2022-10-31] MEDS: Metoprolol Tartrate 12.5 MG HALFTAB PO (09:02)
[2022-10-31] MEDS: Atorvastatin Calcium 40 MG TABLET PO (09:02)
[2022-10-31] MEDS: 0.9 % Sodium Chloride Flush 3 ML SYRINGE IVFLUSH ×2 (09:03→21:10)
--- NOTE | 2022-10-31 09:58 | P.PNIM_ITS ---
Subjective Subjective Date of Service: 10/31/22 Interval History: feeling better Physical Exam Vital Signs: Vital Signs: Last Vital Signs Temp 98.5 F 10/31/22 08:00 Pulse 73 10/31/22 08:00 Resp 16 10/31/22 04:00 BP 120/59 L 10/31/22 08:00 Pulse Ox 98 10/31/22 08:00 O2 Del Method Room Air 10/31/22 08:00 BMI result Body Mass Index 28.1 Const: General: cooperative HEENT: Head: Yes normal to inspection Face and sinus: Yes normal facial exam Mouth: Normal oral and palatal mucosa present Teeth and gingiva: dentition normal Eyes: General: appearance normal, both eyes and all related structures Pupils: Equal, round and reactive pupils present Resp: Effort & Inspection: normal respiratory effort Cardio: Rate: regular rate Rhythm: regular rhythm GI: Palpation (GI): Soft to palpation and nontender : General: Yes no CVA tenderness Back/Spine/Pelvis: Back: no CVA tenderness Skin: General skin exam: no rashes or lesions noted Neuro: General: moves all extremities Cranial nerves: Yes Equal, round and reactive pupils present Extrem: General: Yes normal to inspection Psych: Appearance: grossly normal Objective Data Active Medications Atorvastatin Calcium (Atorvastatin Calcium 40 Mg Tablet) 40 mg PO DAILY [facility] Last Admin: 10/31/22 09:02 Dose: 40 mg Documented By: SANJUANA Heparin Sodium (Porcine) (Heparin Sodium,Porcine 5,000 Unit/Ml Vial) 5,000 unit SUBCUT Q8H [facility] Last Admin: 10/31/22 05:37 Dose: 5,000 unit Documented By: JUSTINE Cefepime HCl 1 gm/ Sodium (Chloride) 50 mls @ 100 mls/hr IV Q24H [facility] Last Infusion: 10/30/22 19:02 Dose: 0 mls/hr Documented By: PAVEL Vancomycin HCl 500 mg/ Sodium (Chloride) 110 mls @ 110 mls/hr IV MoWeFr@1800 [facility] Levothyroxine Sodium (Levothyroxine Sodium 75 Mcg Tablet) 75 mcg PO DAILY@0600 [facility] Last Admin: 10/31/22 05:37 Dose: 75 mcg Documented By: JUSTINE Lidocaine HCl (Lidocaine Hcl 1 % Mpf 2 Ml Vial) 0.5 ml SUBCUT MOWEFR@1645 [facility] Last Admin: 10/30/22 18:21 Dose: Not Given Documented By: PAVEL Non-Admin Reason: pt went to dialsis at 12pm Metoprolol Tartrate (Metoprolol Tartrate 12.5 Mg Halftab) 12.5 mg PO DAILY [facility]; Protocol Last Admin: 10/31/22 09:02 Dose: 12.5 mg Documented By: SANJUANA Omeprazole (Omeprazole 20 Mg Capsule.Dr) 20 mg PO DAILY@0630 [facility] Last Admin: 10/31/22 05:37 Dose: 20 mg Documented By: JUSTINE Pharmacy Consult (Consult Rx Perform Med Rec) 1 each MISCELLANE ONCE PRN PRN Reason: Consult order Pharmacy Consult (Consult Rx Vancomycin Dosing) 1 each MISCELLANE DAILY PRN PRN Reason: Consult order Sertraline HCl (Sertraline Hcl 25 Mg Tablet) 25 mg PO DAILY [facility] Last Admin: 10/31/22 09:02 Dose: 25 mg Documented By: SANJUANA Sodium Chloride (0.9 % Sodium Chloride Flush 3 Ml Syringe) 3 ml IVFLUSH QSHIFT [facility] Last Admin: 10/31/22 09:03 Dose: 3 ml Documented By: SANJUANA Tamsulosin HCl (Tamsulosin Hcl 0.4 Mg Capsule) 0.4 mg PO DAILY [facility] Last Admin: 10/31/22 09:02 Dose: 0.4 mg Documented By: SANJUANA Labs 10/31/22 07:21 10/31/22 07:21 Labs: Laboratory Results - last 24 hr 10/30/22 10/30/22 10/30/22 11:35 11:35 17:53 MCV MCH MCHC RDW Plt Count MPV Absolute Nucleated RBC Nucleated RBC % (auto) Anion Gap Estim Creat Clear Calc Estimated GFR Fasting Glucose Calcium Pleural pH 7.57 Pleural WBC 0.268 Pleural RBC 0.019 Pleural Neutrophils 14 Pleural Lymphocytes 29 Pleural Monocytes 32 Pleural Eosinophils 2 Pleural Other Cells 23 Random Vancomycin 9.8 L 10/31/22 10/31/22 07:21 07:21 MCV 91.6 MCH 30.2 MCHC 33.0 RDW 15.7 Plt Count 239 MPV 10.5 Absolute Nucleated RBC 0.000 Nucleated RBC % (auto) 0.0 Anion Gap 12 Estim Creat Clear Calc 15.8 Estimated GFR 11 Fasting Glucose 103 H Calcium 7.7 L D Pleural pH Pleural WBC Pleural RBC Pleural Neutrophils Pleural Lymphocytes Pleural Monocytes Pleural Eosinophils Pleural Other Cells Random Vancomycin Microbiology Microbiology Results: Microbiology 10/30/22 06:45 Blood Culture - Preliminary Blood - Venous No growth after 24 hours. 10/30/22 06:45 Blood Culture - Preliminary Blood - Venous No growth after 24 hours. 10/28/22 10:49 Blood Culture - Preliminary Blood - Venous Staphylococcus aureus 10/28/22 10:09 Blood Culture - Preliminary Blood - Venous Staphylococcus aureus 10/30/22 11:35 Gram Stain - Final Thoracentesis Fluid Assessment and Plan (1) Heart failure with preserved ejection fraction: Status: Acute Plan 66M PMH severe s/p bioAVR jul 2022, Hfpef, ESRD on HD (from jul 2022) due to nephrotic syndrome, hypothyroid, bph, mood disorder, history of DM and morbid obesity (now resolved with significant weight loss), presented after being found on floor by father loc? vs mechanical fall PT eval pending orthostatics negative staph aureus bacteremia continue vanc id appreciated echo - no obvious vegetation follow up sensitivity, repeat permacath removed 10/30/22 right loculated pleural effussion s/p thoracocentesis follow up labs will dc cefepime covid pcr positive ? recurrent vs noninfectious residual virus ESRD due to nephrotic syndrome on HD - replace permacath on 11/02/22 if cultures negative nephro following hfpef euvolemic bph flomax mood disorder sertraline dvt prophylaxis - heparin sq full code reason for continued hospitalization:bacteremia Time Spent With Patient Time: Total time managing care of this patient today ____ minutes. Quality Stroke Does the patient have a stroke diagnosis?: No VTE Prior VTE?: No VTE Risk Level:: Medical - moderate - high VTE Device Contraindication: Treatment Not Indicated VTE Drug Contraindication: N/A - Med Ordered
[2022-10-31 10:25] LABS: Glucose Pleural Fluid 107; LDH Pleural Fluid 326
[2022-10-31 12:00] VITALS: BP 118/65; PULSE 68; RESP 18; TEMP 36.4; O2SAT 97
[2022-10-31 16:00] VITALS: BP 118/61; PULSE 69; RESP 18; TEMP 36.3; O2SAT 96
[2022-10-31 19:35] VITALS: BP 117/61; PULSE 70; RESP 18; TEMP 36.3; O2SAT 97
[2022-11-01] VITALS: BP 128/70; PULSE 69; RESP 20; TEMP 36.5; O2SAT 96
[2022-11-01 03:09] VITALS: BP 126/75; PULSE 70; RESP 20; TEMP 36.2; O2SAT 95
[2022-11-01] MEDS: Omeprazole 20 MG CAPSULE.DR PO (05:16)
[2022-11-01] MEDS: Heparin Sodium,Porcine 5,000 UNIT/ML VIAL 5000 UNIT SUBCUT ×3 (05:16→21:49)
[2022-11-01] MEDS: Levothyroxine Sodium 75 MCG TABLET PO (05:16)
[2022-11-01 08:02] VITALS: BP 119/61; PULSE 80; RESP 18; TEMP 35.9; O2SAT 96
[2022-11-01 08:08] LABS: Glucose, Whole Blood 113 mg/dL (60-115)
--- NOTE | 2022-11-01 09:03 | HO.PM.IMPN ---
Subjective Subjective Date of Service: 11/01/22 Interval History: feeling better Physical Exam Vital Signs: Vital Signs: Last Vital Signs Temp 96.6 F L 11/01/22 08:02 Pulse 80 11/01/22 08:02 Resp 18 11/01/22 08:02 BP 119/61 11/01/22 08:02 Pulse Ox 96 11/01/22 08:02 O2 Del Method Room Air 11/01/22 08:02 BMI result Body Mass Index 28.1 Const: General: cooperative HEENT: Head: Yes normal to inspection Face and sinus: Yes normal facial exam Mouth: Normal oral and palatal mucosa present Teeth and gingiva: dentition normal Eyes: General: appearance normal, both eyes and all related structures Pupils: Equal, round and reactive pupils present Resp: Effort & Inspection: normal respiratory effort Cardio: Rate: regular rate Rhythm: regular rhythm GI: Palpation (GI): Soft to palpation and nontender : General: Yes no CVA tenderness Back/Spine/Pelvis: Back: no CVA tenderness Skin: General skin exam: no rashes or lesions noted Neuro: General: moves all extremities Cranial nerves: Yes Equal, round and reactive pupils present Extrem: General: Yes normal to inspection Psych: Appearance: grossly normal Objective Data Active Medications Atorvastatin Calcium (Atorvastatin Calcium 40 Mg Tablet) 40 mg PO DAILY [facility] Last Admin: 10/31/22 09:02 Dose: 40 mg Documented By: SANJUANA Heparin Sodium (Porcine) (Heparin Sodium,Porcine 5,000 Unit/Ml Vial) 5,000 unit SUBCUT Q8H [facility] Last Admin: 11/01/22 05:16 Dose: 5,000 unit Documented By: JUSTINE Vancomycin HCl 500 mg/ Sodium (Chloride) 110 mls @ 110 mls/hr IV MoWeFr@1800 [facility] Levothyroxine Sodium (Levothyroxine Sodium 75 Mcg Tablet) 75 mcg PO DAILY@0600 [facility] Last Admin: 11/01/22 05:16 Dose: 75 mcg Documented By: JUSTINE Lidocaine HCl (Lidocaine Hcl 1 % Mpf 2 Ml Vial) 0.5 ml SUBCUT MOWEFR@1645 [facility] Last Admin: 10/30/22 18:21 Dose: Not Given Documented By: PAVEL Non-Admin Reason: pt went to dialsis at 12pm Metoprolol Tartrate (Metoprolol Tartrate 12.5 Mg Halftab) 12.5 mg PO DAILY [facility]; Protocol Last Admin: 10/31/22 09:02 Dose: 12.5 mg Documented By: SANJUANA Omeprazole (Omeprazole 20 Mg Capsule.) 20 mg PO DAILY@0630 [facility] Last Admin: 11/01/22 05:16 Dose: 20 mg Documented By: JUSTINE Pharmacy Consult (Consult Rx Perform Med Rec) 1 each MISCELLANE ONCE PRN PRN Reason: Consult order Pharmacy Consult (Consult Rx Vancomycin Dosing) 1 each MISCELLANE DAILY PRN PRN Reason: Consult order Sertraline HCl (Sertraline Hcl 25 Mg Tablet) 25 mg PO DAILY [facility] Last Admin: 10/31/22 09:02 Dose: 25 mg Documented By: SANJUANA Sodium Chloride (0.9 % Sodium Chloride Flush 3 Ml Syringe) 3 ml IVFLUSH QSHIFT [facility] Last Admin: 10/31/22 21:10 Dose: 3 ml Documented By: JUSTINE Tamsulosin HCl (Tamsulosin Hcl 0.4 Mg Capsule) 0.4 mg PO DAILY [facility] Last Admin: 10/31/22 09:02 Dose: 0.4 mg Documented By: SANJUANA Labs 10/31/22 07:21 10/31/22 07:21 Labs: Laboratory Results - last 24 hr 10/30/22 11/01/22 11:35 08:01 POC Glucose 113 Pleural LDH 326 Pleural Glucose 107 Microbiology Microbiology Results: Microbiology 10/28/22 10:09 Blood Culture - Preliminary Blood - Venous Staphylococcus aureus 10/30/22 06:45 Blood Culture - Preliminary Blood - Venous No growth after 48 hours. 10/30/22 06:45 Blood Culture - Preliminary Blood - Venous No growth after 48 hours. 10/28/22 10:49 Blood Culture - Preliminary Blood - Venous Staphylococcus aureus 10/30/22 11:35 Gram Stain - Final Thoracentesis Fluid Anaerobic Culture - Preliminary No growth to date. Body Fluid Culture - Final No growth after 2 days 10/30/22 Unknown Catheter Tip Culture - Preliminary Catheter Tip - Subclavian Culture in progress. Assessment and Plan (1) Heart failure with preserved ejection fraction: Status: Acute Plan 66M PMH severe s/p bioAVR jul 2022, Hfpef, ESRD on HD (from jul 2022) due to nephrotic syndrome, hypothyroid, bph, mood disorder, history of DM and morbid obesity (now resolved with significant weight loss), presented after being found on floor by father loc? vs mechanical fall PT eval pending orthostatics negative staph aureus bacteremia continue vanc id appreciated echo - no obvious vegetation follow up sensitivity, repeat permacath removed 10/30/22 if stays negative, plan to replace permacath 11/02/22 right loculated pleural effussion s/p thoracocentesis follow up labs covid pcr positive ? recurrent vs noninfectious residual virus ESRD due to nephrotic syndrome on HD - replace permacath on 11/02/22 if cultures negative nephro following hfpef euvolemic bph flomax mood disorder sertraline dvt prophylaxis - heparin sq full code reason for continued hospitalization:bacteremia Time Spent With Patient Time: Total time managing care of this patient today ____ minutes. Quality Stroke Does the patient have a stroke diagnosis?: No VTE Prior VTE?: No VTE Risk Level:: Medical - moderate - high VTE Device Contraindication: Treatment Not Indicated VTE Drug Contraindication: N/A - Med Ordered
[2022-11-01 09:46] LABS: Adenovirus PCR Not Detected (Not Detect.); Bordetella parapertussis PCR Not Detected (Not Detect.); Bordetella pertussis PCR Not Detected (Not Detect.); Chlamydia pneumoniae PCR Not Detected (Not Detect.); Coronavirus 229E PCR Not Detected (Not Detect.); Coronavirus HKU1 PCR Not Detected (Not Detect.); Coronavirus NL63 PCR Not Detected (Not Detect.); Coronavirus OC43 PCR Not Detected (Not Detect.); Human metapneumovirus PCR Not Detected (Not Detect.); Influenza A PCR Not Detected (Not Detect.); Influenza B PCR Not Detected (Not Detect.); Mycoplasma pneumoniae PCR Not Detected (Not Detect.); Parainfluenza 1 PCR Not Detected (Not Detect.); Parainfluenza 2 PCR Not Detected (Not Detect.); Parainfluenza 3 PCR Not Detected (Not Detect.); Parainfluenza 4 PCR Not Detected (Not Detect.); RSV PCR Not Detected (Not Detect.); Rhino/Enterovirus PCR Not Detected (Not Detect.); SARS-CoV-2 PCR Not Detected (Not Detect.)
[2022-11-01] MEDS: Sertraline HCL 25 MG TABLET PO (10:20)
[2022-11-01] MEDS: 0.9 % Sodium Chloride Flush 3 ML SYRINGE IVFLUSH ×3 (10:20→21:50)
[2022-11-01] MEDS: Atorvastatin Calcium 40 MG TABLET PO (10:20)
[2022-11-01] MEDS: Tamsulosin HCL 0.4 MG CAPSULE PO (10:20)
[2022-11-01] MEDS: Metoprolol Tartrate 12.5 MG HALFTAB PO (10:21)
[2022-11-01 12:00] VITALS: BP 97/55; PULSE 65; RESP 20; TEMP 36.8; O2SAT 94
[2022-11-01 13:44] LABS: Appearance Urine Clear; Color Urine Yellow; Glucose Urine UA >=1000 mg/dL (Negative); Leukocyte Esterase Urine Negative (Negative); Nitrite Urine Negative (Negative); UMIC TRIGGER UACC YES; Urine Blood Small (1+) (Negative); Urine Ketones Trace mg/dL (Negative); Urine Protein >=1000 (4+) mg/dL (Neg-Trace)
[2022-11-01 14:00] LABS: Bacteria Urine None Seen (None Seen); RBC Urine 0-2 /HPF (0-2); Squamous Epithelial Cell Urine 0-2 /HPF (0-2); WBC Urine 0-5 /HPF (0-5)
[2022-11-01 15:42] VITALS: BP 117/67; PULSE 67; RESP 20; TEMP 36.4; O2SAT 97
[2022-11-01 19:32] VITALS: BP 133/70; PULSE 67; RESP 20; TEMP 36.3; O2SAT 97
[2022-11-02] VITALS (7 sets, daily range): BP systolic 110–144; BP diastolic 56–77; PULSE 60–70; RESP 18–20; TEMP 36.1–36.8; O2SAT 94–98
[2022-11-02 06:45] LABS: Hematocrit 28.9 % (42.0-52.0); Hemoglobin 9.2 g/dl (14.0-18.0); Mean Corpuscular HGB Conc 31.8 g/dl (31.0-36.0); Mean Corpuscular Hemoglobin 29.6 pg (27.0-33.0); Mean Corpuscular Volume 92.9 fL (80.0-98.0); Mean Platelet Volume 10.3 fL (9.4-12.4); Platelet Count 300 X10*3/uL (160-400); Red Blood Count 3.11 X10*6/uL (4.60-5.80); Red Cell Distribution Width 15.3 % (11.0-16.0)
[2022-11-02 07:25] LABS: Anion Gap 12 (12-20); Blood Urea Nitrogen 32 mg/dL (9-16); Calcium 7.5 mg/dL (8.4-10.2); Carbon Dioxide 22 mmol/L (22-29); Chloride 107 mmol/L (96-108); Creatinine Clr Calc Pharmacy 13.1; Estimated Glomerular Filt Rate 9; Glucose Fasting 114 mg/dL (60-99); Potassium 3.1 mmol/L (3.3-5.1); Sodium 138 mmol/L (135-145)
[2022-11-02] MEDS: Atorvastatin Calcium 40 MG TABLET PO (08:52)
[2022-11-02] MEDS: Sertraline HCL 25 MG TABLET PO (08:52)
[2022-11-02] MEDS: Metoprolol Tartrate 12.5 MG HALFTAB PO (08:52)
[2022-11-02] MEDS: Heparin Sodium,Porcine 5,000 UNIT/ML VIAL 5000 UNIT SUBCUT ×3 (08:52→22:09)
[2022-11-02] MEDS: Tamsulosin HCL 0.4 MG CAPSULE PO (08:52)
[2022-11-02] MEDS: 0.9 % Sodium Chloride Flush 3 ML SYRINGE IVFLUSH ×2 (08:52→15:02)
--- NOTE | 2022-11-02 09:56 | P.PNIM_ITS ---
Subjective Subjective Date of Service: 11/02/22 Interval History: feeling better Physical Exam Vital Signs: Vital Signs: Last Vital Signs Temp 97.1 F 11/02/22 07:29 Pulse 69 11/02/22 07:29 Resp 20 11/02/22 07:29 BP 131/61 11/02/22 07:29 Pulse Ox 96 11/02/22 07:29 O2 Del Method Room Air 11/02/22 07:29 BMI result Body Mass Index 28.1 Const: General: cooperative HEENT: Head: Yes normal to inspection Face and sinus: Yes normal facial exam Mouth: Normal oral and palatal mucosa present Teeth and gingiva: dentition normal Eyes: General: appearance normal, both eyes and all related structures Pupils: Equal, round and reactive pupils present Resp: Effort & Inspection: normal respiratory effort Cardio: Rate: regular rate Rhythm: regular rhythm GI: Palpation (GI): Soft to palpation and nontender : General: Yes no CVA tenderness Back/Spine/Pelvis: Back: no CVA tenderness Skin: General skin exam: no rashes or lesions noted Neuro: General: moves all extremities Cranial nerves: Yes Equal, round and reactive pupils present Extrem: General: Yes normal to inspection Psych: Appearance: grossly normal Objective Data Active Medications Atorvastatin Calcium (Atorvastatin Calcium 40 Mg Tablet) 40 mg PO DAILY [facility] Last Admin: 11/02/22 08:52 Dose: 40 mg Documented By: PAVEL Heparin Sodium (Porcine) (Heparin Sodium,Porcine 5,000 Unit/Ml Vial) 5,000 unit SUBCUT Q8H [facility] Last Admin: 11/02/22 08:52 Dose: 5,000 unit Documented By: PAVEL Vancomycin HCl 500 mg/ Sodium (Chloride) 110 mls @ 110 mls/hr IV MoWeFr@1800 [facility] Levothyroxine Sodium (Levothyroxine Sodium 75 Mcg Tablet) 75 mcg PO DAILY@0600 [facility] Last Admin: 11/02/22 06:19 Dose: Not Given Documented By: DELGADO Non-Admin Reason: NPO Lidocaine HCl (Lidocaine Hcl 1 % Mpf 2 Ml Vial) 0.5 ml SUBCUT MOWEFR@1645 [facility] Last Admin: 10/30/22 18:21 Dose: Not Given Documented By: PAVEL Non-Admin Reason: pt went to dialsis at 12pm Metoprolol Tartrate (Metoprolol Tartrate 12.5 Mg Halftab) 12.5 mg PO DAILY [facility]; Protocol Last Admin: 11/02/22 08:52 Dose: 12.5 mg Documented By: PAVEL Omeprazole (Omeprazole 20 Mg Capsule.Dr) 20 mg PO DAILY@0630 [facility] Last Admin: 11/02/22 06:20 Dose: Not Given Documented By: DELGADO Non-Admin Reason: NPO Pharmacy Consult (Consult Rx Perform Med Rec) 1 each MISCELLANE ONCE PRN PRN Reason: Consult order Pharmacy Consult (Consult Rx Vancomycin Dosing) 1 each MISCELLANE DAILY PRN PRN Reason: Consult order Sertraline HCl (Sertraline Hcl 25 Mg Tablet) 25 mg PO DAILY [facility] Last Admin: 11/02/22 08:52 Dose: 25 mg Documented By: PAVEL Sodium Chloride (0.9 % Sodium Chloride Flush 3 Ml Syringe) 3 ml IVFLUSH QSHIFT [facility] Last Admin: 11/02/22 08:52 Dose: 3 ml Documented By: PAVEL Tamsulosin HCl (Tamsulosin Hcl 0.4 Mg Capsule) 0.4 mg PO DAILY [facility] Last Admin: 11/02/22 08:52 Dose: 0.4 mg Documented By: PAVEL Labs 11/02/22 06:26 11/02/22 06:26 Labs: Laboratory Results - last 24 hr 10/30/22 11/01/22 11/02/22 11:35 13:10 06:26 MCV 92.9 MCH 29.6 MCHC 31.8 RDW 15.3 Plt Count 300 D MPV 10.3 Absolute Nucleated RBC 0.000 Nucleated RBC % (auto) 0.0 Anion Gap Estim Creat Clear Calc Estimated GFR Fasting Glucose Calcium Urine Color Yellow Urine Appearance Clear Urine pH 8.0 Ur Specific [place] 1.020 Urine Protein >=1000 (4+) H Urine Glucose (UA) >=1000 H Urine Ketones Trace Urine Blood Small (1+) H Urine Nitrite Negative Ur Leukocyte Esterase Negative Urine RBC 0-2 Urine WBC 0-5 Ur Squamous Epith Cells 0-2 Urine Bacteria None Seen Hyaline Casts 3-5 Pleural Total Protein 2.0 11/02/22 06:26 MCV MCH MCHC RDW Plt Count MPV Absolute Nucleated RBC Nucleated RBC % (auto) Anion Gap 12 Estim Creat Clear Calc 13.1 Estimated GFR 9 Fasting Glucose 114 H Calcium 7.5 L Urine Color Urine Appearance Urine pH Ur Specific [place] Urine Protein Urine Glucose (UA) Urine Ketones Urine Blood Urine Nitrite Ur Leukocyte Esterase Urine RBC Urine WBC Ur Squamous Epith Cells Urine Bacteria Hyaline Casts Pleural Total Protein Microbiology Microbiology Results: Microbiology 10/30/22 11:35 Gram Stain - Final Thoracentesis Fluid Anaerobic Culture - Preliminary No growth to date. Body Fluid Culture - Final No growth after 2 days 10/31/22 07:21 Blood Culture - Preliminary Blood - Venous No growth after 48 hours. 10/31/22 07:21 Blood Culture - Preliminary Blood - Venous No growth after 48 hours. 10/30/22 Unknown Catheter Tip Culture - Preliminary Catheter Tip - Subclavian Staphylococcus species 10/28/22 10:09 Blood Culture - Preliminary Blood - Venous Staphylococcus aureus 10/30/22 06:45 Blood Culture - Preliminary Blood - Venous No growth after 48 hours. 10/30/22 06:45 Blood Culture - Preliminary Blood - Venous No growth after 48 hours. 10/28/22 10:49 Blood Culture - Preliminary Blood - Venous Staphylococcus aureus Assessment and Plan (1) Heart failure with preserved ejection fraction: Status: Acute Plan 66M PMH severe s/p bioAVR jul 2022, Hfpef, ESRD on HD (from jul 2022) due to nephrotic syndrome, hypothyroid, bph, mood disorder, history of DM and morbid ob esity (now resolved with significant weight loss), presented after being found on floor by father loc? vs mechanical fall PT eval pending orthostatics negative staph aureus bacteremia continue vanc id appreciated echo - no obvious vegetation follow up sensitivity, repeat permacath removed 10/30/22 if stays negative, plan to replace permacath 11/03/22 right loculated pleural effussion s/p thoracocentesis follow up labs covid pcr positive ? recurrent vs noninfectious residual virus ESRD due to nephrotic syndrome on HD - replace permacath on 11/03/22 if cultures negative nephro following hfpef euvolemic bph flomax mood disorder sertraline dvt prophylaxis - heparin sq full code reason for continued hospitalization:bacteremia Time Spent With Patient Time: Total time managing care of this patient today ____ minutes. Quality Stroke Does the patient have a stroke diagnosis?: No VTE Prior VTE?: No VTE Risk Level:: Medical - moderate - high VTE Device Contraindication: Treatment Not Indicated VTE Drug Contraindication: N/A - Med Ordered
--- NOTE | 2022-11-02 11:52 | PM.PNNEP ---
Subjective Subjective Date of Service: 11/02/22 Interval history: Events noted Physical Exam Vital Signs: Vital Signs: Last Vital Signs Temp 97.8 F 11/02/22 11:37 Pulse 60 11/02/22 11:37 Resp 20 11/02/22 11:37 BP 111/56 L 11/02/22 11:37 Pulse Ox 96 11/02/22 11:37 O2 Del Method Room Air 11/02/22 11:37 BMI result Body Mass Index 28.1 Const: General: no acute distress Eyes: EOM: EOMs intact bilaterally Neck: Neck: Yes supple Resp: Auscultation: diminished lung sounds Cardio: Rate: regular rate GI: Palpation (GI): Soft to palpation Neuro: General: moves all extremities Objective Data Labs 11/02/22 06:26 11/02/22 06:26 Labs: Laboratory Results - last 24 hr 10/30/22 11/01/22 11/02/22 11:35 13:10 06:26 WBC 9.0 RBC 3.11 L Hgb 9.2 L Hct 28.9 L MCV 92.9 MCH 29.6 MCHC 31.8 RDW 15.3 Plt Count 300 D MPV 10.3 Absolute Nucleated RBC 0.000 Nucleated RBC % (auto) 0.0 Sodium Potassium Chloride Carbon Dioxide Anion Gap BUN Creatinine Estim Creat Clear Calc Estimated GFR Fasting Glucose Calcium Urine Color Yellow Urine Appearance Clear Urine pH 8.0 Ur Specific [place] 1.020 Urine Protein >=1000 (4+) H Urine Glucose (UA) >=1000 H Urine Ketones Trace Urine Blood Small (1+) H Urine Nitrite Negative Ur Leukocyte Esterase Negative Urine RBC 0-2 Urine WBC 0-5 Ur Squamous Epith Cells 0-2 Urine Bacteria None Seen Hyaline Casts 3-5 Pleural Total Protein 2.0 11/02/22 06:26 WBC RBC Hgb Hct MCV MCH MCHC RDW Plt Count MPV Absolute Nucleated RBC Nucleated RBC % (auto) Sodium 138 Potassium 3.1 L Chloride 107 Carbon Dioxide 22 Anion Gap 12 BUN 32 H Creatinine 6.29 H* Estim Creat Clear Calc 13.1 Estimated GFR 9 Fasting Glucose 114 H Calcium 7.5 L Urine Color Urine Appearance Urine pH Ur Specific [place] Urine Protein Urine Glucose (UA) Urine Ketones Urine Blood Urine Nitrite Ur Leukocyte Esterase Urine RBC Urine WBC Ur Squamous Epith Cells Urine Bacteria Hyaline Casts Pleural Total Protein Microbiology Microbiology Results: Microbiology 10/30/22 11:35 Thoracentesis Fluid Gram Stain - Final 10/30/22 11:35 Thoracentesis Fluid Anaerobic Culture - Preliminary No growth to date. 10/30/22 11:35 Thoracentesis Fluid Body Fluid Culture - Final No growth after 2 days 10/31/22 07:21 Blood - Venous Blood Culture - Preliminary No growth after 48 hours. 10/31/22 07:21 Blood - Venous Blood Culture - Preliminary No growth after 48 hours. 10/30/22 Unknown Catheter Tip - Subclavian Catheter Tip Culture - Preliminary Staphylococcus species 10/28/22 10:09 Blood - Venous Blood Culture - Preliminary Staphylococcus aureus 10/30/22 06:45 Blood - Venous Blood Culture - Preliminary No growth after 48 hours. 10/30/22 06:45 Blood - Venous Blood Culture - Preliminary No growth after 48 hours. 10/28/22 10:49 Blood - Venous Blood Culture - Preliminary Staphylococcus aureus Procedures Date of Service Date of Service: 11/02/22 Assessment & Plan Assessment and plan (1) ESRD on dialysis: Status: Acute Plan ESRD. Usually gets HD on MWF 2 Gram Na/2 Gram K diet; Phos/ Fluid restriction Phos binders with meals; Could D/C Tamsulosin; Vancomycin post HD If BP running low, could switch metoprolol to low dose carvedilol( 3.125 mg bid) Await catheter placement. Apparently today is a holiday and no IR services available Time Spent With Patient Time: Total time managing care of this patient today ____ minutes. Progress Note: Quality Stroke Does the patient have a stroke diagnosis?: No
[2022-11-03] VITALS (9 sets, daily range): BP systolic 103–142; BP diastolic 55–71; PULSE 61–81; RESP 16–20; TEMP 36.1–36.7; O2SAT 96–98
[2022-11-03] MEDS: 0.9 % Sodium Chloride Flush 3 ML SYRINGE IVFLUSH ×4 (01:18→21:12)
[2022-11-03 07:07] LABS: Hemoglobin 9.5 g/dl (14.0-18.0); Mean Corpuscular HGB Conc 32.8 g/dl (31.0-36.0); Mean Corpuscular Hemoglobin 30.5 pg (27.0-33.0); Mean Corpuscular Volume 93.2 fL (80.0-98.0); Mean Platelet Volume 9.9 fL (9.4-12.4); Platelet Count 349 X10*3/uL (160-400); Red Blood Count 3.11 X10*6/uL (4.60-5.80); Red Cell Distribution Width 15.6 % (11.0-16.0); White Blood Count 8.6 X10*3/uL (4.8-10.8)
[2022-11-03 07:46] LABS: Anion Gap 16 (12-20); Blood Urea Nitrogen 32 mg/dL (9-16); Calcium 7.6 mg/dL (8.4-10.2); Carbon Dioxide 18 mmol/L (22-29); Chloride 109 mmol/L (96-108); Creatinine Clr Calc Pharmacy 12.9; Estimated Glomerular Filt Rate 9; Glucose Fasting 104 mg/dL (60-99); Potassium 3.1 mmol/L (3.3-5.1); Sodium 140 mmol/L (135-145)
[2022-11-03] MEDS: Metoprolol Tartrate 12.5 MG HALFTAB PO (09:24)
[2022-11-03] MEDS: Atorvastatin Calcium 40 MG TABLET PO (09:24)
[2022-11-03] MEDS: Tamsulosin HCL 0.4 MG CAPSULE PO (09:24)
[2022-11-03] MEDS: Sertraline HCL 25 MG TABLET PO (09:24)
--- NOTE | 2022-11-03 11:06 | PM.PNNEP ---
Subjective Subjective Date of Service: 11/04/22 Interval history: Events noted Physical Exam Vital Signs: Vital Signs: Last Vital Signs Temp 97.0 F 11/03/22 07:57 Pulse 69 11/03/22 08:37 Resp 18 11/03/22 07:57 BP 136/71 11/03/22 08:37 Pulse Ox 96 11/03/22 08:37 O2 Del Method Room Air 11/03/22 07:57 BMI result Body Mass Index 28.1 Const: General: no acute distress Eyes: EOM: EOMs intact bilaterally Neck: Neck: Yes supple Resp: Auscultation: diminished lung sounds Cardio: Rate: regular rate GI: Palpation (GI): Soft to palpation Neuro: General: moves all extremities Objective Data Labs 11/03/22 06:59 11/03/22 06:59 Labs: Laboratory Results - last 24 hr 11/03/22 11/03/22 06:59 06:59 WBC 8.6 RBC 3.11 L Hgb 9.5 L Hct 29.0 L MCV 93.2 MCH 30.5 MCHC 32.8 RDW 15.6 Plt Count 349 MPV 9.9 Absolute Nucleated RBC 0.000 Nucleated RBC % (auto) 0.0 Sodium 140 Potassium 3.1 L Chloride 109 H Carbon Dioxide 18 L Anion Gap 16 BUN 32 H Creatinine 6.43 H* Estim Creat Clear Calc 12.9 Estimated GFR 9 Fasting Glucose 104 H Calcium 7.6 L Microbiology Microbiology Results: Microbiology 10/30/22 11:35 Thoracentesis Fluid Gram Stain - Final 10/30/22 11:35 Thoracentesis Fluid Anaerobic Culture - Preliminary No growth to date. 10/30/22 11:35 Thoracentesis Fluid Body Fluid Culture - Final No growth after 2 days 10/30/22 Unknown Catheter Tip - Subclavian Catheter Tip Culture - Preliminary Staphylococcus species 10/28/22 10:49 Blood - Venous Blood Culture - Preliminary Staphylococcus aureus 10/28/22 10:09 Blood - Venous Blood Culture - Preliminary Staphylococcus aureus 10/31/22 07:21 Blood - Venous Blood Culture - Preliminary No growth after 48 hours. 10/31/22 07:21 Blood - Venous Blood Culture - Preliminary No growth after 48 hours. 10/30/22 06:45 Blood - Venous Blood Culture - Preliminary No growth after 48 hours. 10/30/22 06:45 Blood - Venous Blood Culture - Preliminary No growth after 48 hours. Procedures Date of Service Date of Service: 11/03/22 Assessment & Plan Assessment and plan (1) ESRD on dialysis: Status: Acute Plan ESRD. Usually gets HD on MWF 2 Gram Na/2 Gram K diet; Phos/ Fluid restriction Phos binders with meals; Could D/C Tamsulosin; Vancomycin post HD If BP running low, could switch metoprolol to low dose carvedilol( 3.125 mg bid) Await catheter placement. Time Spent With Patient Time: Total time managing care of this patient today ____ minutes. Progress Note: Quality Stroke Does the patient have a stroke diagnosis?: No
--- NOTE | 2022-11-03 11:36 | HO.PM.IMPN ---
Subjective Subjective Date of Service: 11/03/22 Interval History: feeling better Physical Exam Vital Signs: Vital Signs: Last Vital Signs Temp 97.0 F 11/03/22 07:57 Pulse 69 11/03/22 08:37 Resp 18 11/03/22 07:57 BP 136/71 11/03/22 08:37 Pulse Ox 96 11/03/22 08:37 O2 Del Method Room Air 11/03/22 07:57 BMI result Body Mass Index 28.1 Const: General: no acute distress Eyes: EOM: EOMs intact bilaterally Neck: Neck: Yes supple Resp: Auscultation: diminished lung sounds Cardio: Rate: regular rate GI: Palpation (GI): Soft to palpation Neuro: General: moves all extremities Objective Data Active Medications Atorvastatin Calcium (Atorvastatin Calcium 40 Mg Tablet) 40 mg PO DAILY [facility] Last Admin: 11/03/22 09:24 Dose: 40 mg Documented By: PAVEL Heparin Sodium (Porcine) (Heparin Sodium,Porcine 5,000 Unit/Ml Vial) 5,000 unit SUBCUT Q8H [facility] Last Admin: 11/03/22 09:24 Dose: Not Given Documented By: PAVEL Non-Admin Reason: pt has a schedule surgery, aware Vancomycin HCl 500 mg/ Sodium (Chloride) 110 mls @ 110 mls/hr IV MoWeFr@1800 [facility] Levothyroxine Sodium (Levothyroxine Sodium 75 Mcg Tablet) 75 mcg PO DAILY@0600 [facility] Last Admin: 11/03/22 06:15 Dose: Not Given Documented By: DELGADO Non-Admin Reason: NPO Lidocaine HCl (Lidocaine Hcl 1 % Mpf 2 Ml Vial) 0.5 ml SUBCUT MOWEFR@1645 [facility] Last Admin: 11/02/22 15:03 Dose: Not Given Documented By: PAVEL Non-Admin Reason: pt didnt have dialysis today Metoprolol Tartrate (Metoprolol Tartrate 12.5 Mg Halftab) 12.5 mg PO DAILY [facility]; Protocol Last Admin: 11/03/22 09:24 Dose: 12.5 mg Documented By: PAVEL Omeprazole (Omeprazole 20 Mg Capsule.) 20 mg PO DAILY@0630 [facility] Last Admin: 11/03/22 06:15 Dose: Not Given Documented By: DELGADO Non-Admin Reason: NPO Pharmacy Consult (Consult Rx Perform Med Rec) 1 each MISCELLANE ONCE PRN PRN Reason: Consult order Pharmacy Consult (Consult Rx Vancomycin Dosing) 1 each MISCELLANE DAILY PRN PRN Reason: Consult order Sertraline HCl (Sertraline Hcl 25 Mg Tablet) 25 mg PO DAILY [facility] Last Admin: 11/03/22 09:24 Dose: 25 mg Documented By: PAVEL Sodium Chloride (0.9 % Sodium Chloride Flush 3 Ml Syringe) 3 ml IVFLUSH QSHIFT [facility] Last Admin: 11/03/22 09:24 Dose: 3 ml Documented By: PAVEL Tamsulosin HCl (Tamsulosin Hcl 0.4 Mg Capsule) 0.4 mg PO DAILY [facility] Last Admin: 11/03/22 09:24 Dose: 0.4 mg Documented By: PAVEL Labs 11/03/22 06:59 11/03/22 06:59 Labs: Laboratory Results - last 24 hr 11/03/22 11/03/22 06:59 06:59 MCV 93.2 MCH 30.5 MCHC 32.8 RDW 15.6 Plt Count 349 MPV 9.9 Absolute Nucleated RBC 0.000 Nucleated RBC % (auto) 0.0 Anion Gap 16 Estim Creat Clear Calc 12.9 Estimated GFR 9 Fasting Glucose 104 H Calcium 7.6 L Microbiology Microbiology Results: Microbiology 10/30/22 11:35 Gram Stain - Final Thoracentesis Fluid Anaerobic Culture - Preliminary No growth to date. Body Fluid Culture - Final No growth after 2 days 10/30/22 Unknown Catheter Tip Culture - Preliminary Catheter Tip - Subclavian Staphylococcus species 10/28/22 10:49 Blood Culture - Preliminary Blood - Venous Staphylococcus aureus 10/28/22 10:09 Blood Culture - Preliminary Blood - Venous Staphylococcus aureus 10/31/22 07:21 Blood Culture - Preliminary Blood - Venous No growth after 48 hours. 10/31/22 07:21 Blood Culture - Preliminary Blood - Venous No growth after 48 hours. Assessment and Plan (1) Heart failure with preserved ejection fraction: Status: Acute Plan 66M PMH severe s/p bioAVR jul 2022, Hfpef, ESRD on HD (from jul 2022) due to nephrotic syndrome, hypothyroid, bph, mood disorder, history of DM and morbid obesity (now resolved with significant weight loss), presented after being found on floor by father loc? vs mechanical fall PT eval appreciated - likely home with pt orthostatics negative staph aureus bacteremia continue vanc (sensitivities sent to [facility]) id appreciated echo - no obvious vegetation follow up sensitivity, repeat permacath removed 10/30/22 plan to replace permacath today 11/03/22 end date november 26, 2022 right loculated pleural effussion s/p thoracocentesis follow up labs covid pcr positive ? recurrent vs noninfectious residual virus ESRD due to nephrotic syndrome on HD - replace permacath today 11/03/22 nephro following hfpef euvolemic bph flomax mood disorder sertraline dvt prophylaxis - heparin sq full code reason for continued hospitalization:bacteremia, needs permacath Time Spent With Patient Time: Total time managing care of this patient today ____ minutes. Quality Stroke Does the patient have a stroke diagnosis?: No VTE Prior VTE?: No VTE Risk Level:: Medical - moderate - high VTE Device Contraindication: Treatment Not Indicated VTE Drug Contraindication: N/A - Med Ordered
--- NOTE | 2022-11-03 15:47 | HO.RADPN ---
RADIOLOGY Narrative Narrative: RIJ 14.5 fr 19 cm length [facility] permacath placed. Tip at cavoatrial junction.
[2022-11-03] MEDS: Heparin Sodium,Porcine 5,000 UNIT/ML VIAL 5000 UNIT SUBCUT (16:56)
[2022-11-03 20:46] LABS: Vancomycin Random 6.1 mcg/mL (15-20)
[2022-11-03] MEDS: vancomycin HCL 1,000 MG in 0.9 % Sodium Chloride 250 ML 270 MG IV (21:12)
[2022-11-04] VITALS (7 sets, daily range): BP systolic 100–144; BP diastolic 50–73; PULSE 67–82; RESP 16–20; TEMP 36.1–36.7; O2SAT 97–99
[2022-11-04] MEDS: Heparin Sodium,Porcine 5,000 UNIT/ML VIAL 5000 UNIT SUBCUT ×2 (00:05→16:00)
[2022-11-04] MEDS: Omeprazole 20 MG CAPSULE.DR PO (06:15)
[2022-11-04] MEDS: Levothyroxine Sodium 75 MCG TABLET PO (06:15)
--- NOTE | 2022-11-04 09:20 | PM.PNNEP ---
Subjective Subjective Date of Service: 11/05/22 Interval history: Seen during HD feeling better Physical Exam Vital Signs: Vital Signs: Last Vital Signs Temp 96.9 F 11/04/22 07:20 Pulse 67 11/04/22 07:20 Resp 16 11/04/22 07:20 BP 144/73 H 11/04/22 07:20 Pulse Ox 98 11/04/22 07:20 O2 Del Method Room Air 11/04/22 07:20 BMI result Body Mass Index 28.1 Const: General: no acute distress Eyes: EOM: EOMs intact bilaterally Neck: Neck: Yes supple Resp: Auscultation: diminished lung sounds Cardio: Rate: regular rate GI: Palpation (GI): Soft to palpation Neuro: General: moves all extremities Objective Data Labs 11/03/22 06:59 11/03/22 06:59 Labs: Laboratory Results - last 24 hr 11/03/22 20:06 Random Vancomycin 6.1 L Microbiology Microbiology Results: Microbiology 10/30/22 06:45 Blood - Venous Blood Culture - Final No growth after 5 days. 10/30/22 06:45 Blood - Venous Blood Culture - Final No growth after 5 days. 10/30/22 11:35 Thoracentesis Fluid Gram Stain - Final 10/30/22 11:35 Thoracentesis Fluid Anaerobic Culture - Final NO GROWTH AFTER 5 DAYS 10/30/22 11:35 Thoracentesis Fluid Body Fluid Culture - Final No growth after 2 days 10/30/22 Unknown Catheter Tip - Subclavian Catheter Tip Culture - Preliminary Staphylococcus species 10/28/22 10:49 Blood - Venous Blood Culture - Preliminary Staphylococcus aureus 10/28/22 10:09 Blood - Venous Blood Culture - Preliminary Staphylococcus aureus 10/31/22 07:21 Blood - Venous Blood Culture - Preliminary No growth after 48 hours. 10/31/22 07:21 Blood - Venous Blood Culture - Preliminary No growth after 48 hours. Procedures Date of Service Date of Service: 11/04/22 Assessment & Plan Assessment and plan (1) ESRD on dialysis: Status: Acute Plan ESRD. Usually gets HD on MWF 2 Gram Na/2 Gram K diet; Phos/ Fluid restriction Phos binders with meals; Could D/C Tamsulosin; Vancomycin post HD s/p catheter placement. No s/s of uremia DC planning Time Spent With Patient Time: Total time managing care of this patient today ____ minutes. Progress Note: Quality Stroke Does the patient have a stroke diagnosis?: No
--- NOTE | 2022-11-04 12:12 | MHC.CM.PN ---
EMR reviewed and per MD rounds, pt D/C likely tomorrow. Pt will return home and continue with outpatient dialysis at [facility] in [place] (--). Pt will continue with IV antibiotics which he will receive at dialysis. CM will continue to follow.
[2022-11-04] MEDS: Sertraline HCL 25 MG TABLET PO (12:58)
[2022-11-04] MEDS: Tamsulosin HCL 0.4 MG CAPSULE PO (12:58)
[2022-11-04] MEDS: 0.9 % Sodium Chloride Flush 3 ML SYRINGE IVFLUSH ×2 (12:58→16:04)
[2022-11-04] MEDS: Atorvastatin Calcium 40 MG TABLET PO (12:58)
[2022-11-04 14:47] LABS: Vancomycin Random 12.4 mcg/mL (15-20)
--- NOTE | 2022-11-04 15:38 | P.PNIM_ITS ---
Subjective Subjective Date of Service: 11/04/22 Interval History: No acute issues overnight. HD today without issue Review of Systems Denies chest pain Denies shortness of breath Denies nausea vomiting diarrhea Denies fever chills Physical Exam Vital Signs: Vital Signs: Last Vital Signs Temp 98.0 F 11/04/22 15:13 Pulse 81 11/04/22 15:13 Resp 20 11/04/22 15:13 BP 123/58 L 11/04/22 15:13 Pulse Ox 98 11/04/22 15:13 O2 Del Method Room Air 11/04/22 15:13 BMI result Body Mass Index 28.1 Const: Other: No acute distress Resp: Other: Clear to auscultation bilaterally no rales rhonchi or wheezes Cardio: Other: No S4; positive S1-S2; no S3 murmurs rubs or gallops GI: Other: Soft nontender nondistended normoactive bowel sounds Extrem: Other: Trace edema bilaterally Objective Data Active Medications Atorvastatin Calcium (Atorvastatin Calcium 40 Mg Tablet) 40 mg PO DAILY [facility] Last Admin: 11/04/22 12:58 Dose: 40 mg Documented By: NEHA Heparin Sodium (Porcine) (Heparin Sodium,Porcine 5,000 Unit/Ml Vial) 5,000 unit SUBCUT Q8H [facility] Last Admin: 11/04/22 10:20 Dose: Not Given Documented By: NEHA Non-Admin Reason: Off unit: Dialysis Vancomycin HCl 500 mg/ Sodium (Chloride) 110 mls @ 110 mls/hr IV MoWeFr@1800 [facility] Vancomycin HCl 500 mg/ Sodium (Chloride) 110 mls @ 110 mls/hr IV ONCE ONE Stop: 11/04/22 15:59 Levothyroxine Sodium (Levothyroxine Sodium 75 Mcg Tablet) 75 mcg PO DAILY@0600 [facility] Last Admin: 11/04/22 06:15 Dose: 75 mcg Documented By: NATALYA Lidocaine HCl (Lidocaine Hcl 1 % Mpf 2 Ml Vial) 0.5 ml SUBCUT MOWEFR@1645 [facility] Last Admin: 11/02/22 15:03 Dose: Not Given Documented By: PAVEL Non-Admin Reason: pt didnt have dialysis today Metoprolol Tartrate (Metoprolol Tartrate 12.5 Mg Halftab) 12.5 mg PO DAILY [facility]; Protocol Last Admin: 11/04/22 12:56 Dose: Not Given Documented By: NEHA Non-Admin Reason: Off unit: Dialysis Omeprazole (Omeprazole 20 Mg Capsule.) 20 mg PO DAILY@0630 [facility] Last Admin: 11/04/22 06:15 Dose: 20 mg Documented By: NATALYA Pharmacy Consult (Consult Rx Perform Med Rec) 1 each MISCELLANE ONCE PRN PRN Reason: Consult order Pharmacy Consult (Consult Rx Vancomycin Dosing) 1 each MISCELLANE DAILY PRN PRN Reason: Consult order Sertraline HCl (Sertraline Hcl 25 Mg Tablet) 25 mg PO DAILY [facility] Last Admin: 11/04/22 12:58 Dose: 25 mg Documented By: NEHA Sodium Chloride (0.9 % Sodium Chloride Flush 3 Ml Syringe) 3 ml IVFLUSH QSHIFT [facility] Last Admin: 11/04/22 12:58 Dose: 3 ml Documented By: NEHA Tamsulosin HCl (Tamsulosin Hcl 0.4 Mg Capsule) 0.4 mg PO DAILY [facility] Last Admin: 11/04/22 12:58 Dose: 0.4 mg Documented By: NEHA Labs 11/03/22 06:59 11/03/22 06:59 Labs: Laboratory Results - last 24 hr 11/03/22 11/04/22 20:06 14:08 Random Vancomycin 6.1 L 12.4 L Microbiology Microbiology Results: Microbiology 10/30/22 06:45 Blood Culture - Final Blood - Venous No growth after 5 days. 10/30/22 06:45 Blood Culture - Final Blood - Venous No growth after 5 days. 10/30/22 11:35 Gram Stain - Final Thoracentesis Fluid Anaerobic Culture - Final NO GROWTH AFTER 5 DAYS Body Fluid Culture - Final No growth after 2 days Assessment and Plan (1) Pleural effusion: Status: Acute (2) Syncope: Status: Acute (3) ESRD on dialysis: Status: Acute (4) COVID-19: Status: Acute Plan 66M PMH severe s/p bioAVR jul 2022, Hfpef, ESRD on HD (from jul 2022) due to nephrotic syndrome, hypothyroid, bph, mood disorder, history of DM and morbid obesity (now resolved with significant weight loss), presented after being found on floor by father 1.Staph aureus bacteremia -continue vanc (sensitivities sent to [facility]) post HD -permacath removed 10/30/22 - replaced permacath today 11/03/22 2.Right loculated pleural effussion -s/p thoracocentesis -follow clinically 3.Covid pcr positive -supportive therapy 4.ESRD -HD as per rate Heparin sq Full code Requires ongoing hospitalization to continue vancomycin awaiting cultures Time Spent With Patient Time: Total time managing care of this patient today ____ minutes. Quality Stroke Does the patient have a stroke diagnosis?: No VTE Prior VTE?: No VTE Risk Level:: Medical - moderate - high VTE Device Contraindication: Treatment Not Indicated VTE Drug Contraindication: N/A - Med Ordered
[2022-11-04] MEDS: vancomycin HCL 500 MG in 0.9 % Sodium Chloride 100 ML 110 MG IV (16:00)
[2022-11-05 03:33] VITALS: BP 109/64; PULSE 76; RESP 18; TEMP 36.4; O2SAT 98
[2022-11-05] MEDS: Levothyroxine Sodium 75 MCG TABLET PO (05:18)
[2022-11-05] MEDS: Omeprazole 20 MG CAPSULE.DR PO (05:19)
[2022-11-05 07:36] VITALS: BP 141/76; PULSE 72; RESP 16; TEMP 36.7; O2SAT 97
[2022-11-05] MEDS: Heparin Sodium,Porcine 5,000 UNIT/ML VIAL 5000 UNIT SUBCUT ×2 (08:26)
[2022-11-05] MEDS: Sertraline HCL 25 MG TABLET PO (08:26)
[2022-11-05] MEDS: Atorvastatin Calcium 40 MG TABLET PO (08:26)
[2022-11-05] MEDS: 0.9 % Sodium Chloride Flush 3 ML SYRINGE IVFLUSH ×2 (08:26)
[2022-11-05] MEDS: Tamsulosin HCL 0.4 MG CAPSULE PO (08:26)
[2022-11-05] MEDS: Metoprolol Tartrate 12.5 MG HALFTAB PO (08:26)
[2022-11-05 09:35] VITALS: BP 141/76; PULSE 72; O2SAT 97
--- NOTE | 2022-11-05 10:33 | MHC.CM.PN ---
IMM 11/05. EMR reviewed and per MD rounds, pt medically cleared for D/C today. MD recommending home services, however pt is very opposed to the suggestion and states the [facility] are nothing but trouble. Pt did not wish to have a different agency referral placed when it was offered. Pts parents to transport pt home.
--- NOTE | 2022-11-05 10:53 | PM.PNNEP ---
Subjective Subjective Date of Service: 11/05/22 Interval history: No acute issues overnight. Had HD yesterday Physical Exam Vital Signs: Vital Signs: Last Vital Signs Temp 98.1 F 11/05/22 07:36 Pulse 72 11/05/22 09:35 Resp 16 11/05/22 07:36 BP 141/76 H 11/05/22 09:35 Pulse Ox 97 11/05/22 09:35 O2 Del Method Room Air 11/05/22 07:36 BMI result Body Mass Index 28.1 Const: General: no acute distress Eyes: EOM: EOMs intact bilaterally Neck: Neck: Yes supple Resp: Auscultation: diminished lung sounds Cardio: Rate: regular rate GI: Palpation (GI): Soft to palpation Neuro: General: moves all extremities Objective Data Labs 11/03/22 06:59 11/03/22 06:59 Labs: Laboratory Results - last 24 hr 11/04/22 14:08 Random Vancomycin 12.4 L Microbiology Microbiology Results: Microbiology 10/31/22 07:21 Blood - Venous Blood Culture - Final No growth after 5 days. 10/31/22 07:21 Blood - Venous Blood Culture - Final No growth after 5 days. 10/30/22 06:45 Blood - Venous Blood Culture - Final No growth after 5 days. 10/30/22 06:45 Blood - Venous Blood Culture - Final No growth after 5 days. 10/30/22 11:35 Thoracentesis Fluid Gram Stain - Final 10/30/22 11:35 Thoracentesis Fluid Anaerobic Culture - Final NO GROWTH AFTER 5 DAYS 10/30/22 11:35 Thoracentesis Fluid Body Fluid Culture - Final No growth after 2 days 10/30/22 Unknown Catheter Tip - Subclavian Catheter Tip Culture - Preliminary Staphylococcus species 10/28/22 10:49 Blood - Venous Blood Culture - Preliminary Staphylococcus aureus 10/28/22 10:09 Blood - Venous Blood Culture - Preliminary Staphylococcus aureus Procedures Date of Service Date of Service: 11/05/22 Assessment & Plan Assessment and plan (1) ESRD on dialysis: Status: Acute Plan ESRD. Usually gets HD on MWF 2 Gram Na/2 Gram K diet; Phos/ Fluid restriction Phos binders with meals; Could D/C Tamsulosin; Vancomycin 500 mg post HD x 4 weeks per ID , until 11/26/22 s/p catheter placement. No s/s of uremia DC planning Time Spent With Patient Time: Total time managing care of this patient today ____ minutes. Progress Note: Quality Stroke Does the patient have a stroke diagnosis?: No
[2022-11-05 11:42] VITALS: BP 100/60; PULSE 67; RESP 20; TEMP 37; O2SAT 94
--- NOTE | 2022-11-05 12:41 | P.DS_ITS ---
DS: Providers Provider Date of Service: 11/05/22 Date of admission: 10/28/22 14:33 Date of discharge: 11/05/22 Primary care physician: Segundo Tapia MD Consults: 10/28/22 14:33 Consult to Nephrology Routine Consulting Provider: Sergio Hart Reason for consultation: esrd 10/28/22 14:43 Consult to Pulmonology Routine Consulting Provider: [facility] [place] [facility] Reason for consultation: loculated right pleural effussion 10/29/22 09:20 Consult to Infectious Diseases Routine Consulting Provider: [facility] [place] Infectious Disease Reason for consultation: GPC 2/2, loculated effusion and permacath DS: Diagnosis Discharge Diagnosis (1) ESRD on dialysis: Status: Acute DS: Summary Hospital Course Hospital Course: 66M PMH severe s/p bioAVR jul 2022, Hfpef, ESRD on HD (from jul 2022) due to nephrotic syndrome, hypothyroid, bph, mood disorder, history of DM and morbid obesity (now resolved with significant weight loss), presented after being found on floor by father. patient has had multiple syncopal episodes in past. is a poor historian. reports not feeling well for about 2 days, with abd pain, cough, weakness, was covid positive 09/09/22, negative 10/03/22. states he fell out of chair and had LOC, was unable to get up. similar to previous presentation. in ED found to have covid pcr positive, moderate loculated right pleural effussion. Hospital [facility] Admitted to telemetry and started on broad-spectrum antibiotics. Blood cultures drawn for 12 both grew out Staph coccus species for which patient was starting on vancomycin. Repeat cultures have not demonstrated growth in 5 days. On 11/03 a insertion of a new tunnel catheter was placed and patient underwent hemodialysis. At this point time he is medically acceptable for discharge and will receive 4 weeks of vanco post dialysis as an outpatient Time Spent with Patient Time attestation: Total time managing care of this patient today ____ minutes. Discharge coordination time: Greater than 30 minutes Quality: Safe Use of Opioids Does Pt have an Active Cancer Diagnosis on the Problem List?: No Quality: Stroke Does the patient have a stroke diagnosis?: No Physical Exam Vital Signs: Vital Signs: Last Vital Signs Temp 98.6 F 11/05/22 11:42 Pulse 67 11/05/22 11:42 Resp 20 11/05/22 11:42 BP 100/60 11/05/22 11:42 Pulse Ox 94 11/05/22 11:42 O2 Del Method Room Air 11/05/22 11:42 BMI result Body Mass Index 28.1 Const: Other: No acute distress Resp: Other: Clear to auscultation bilaterally no rales rhonchi or wheezes Cardio: Other: No S4; positive S1-S2; no S3 murmurs rubs or gallops GI: Other: Soft nontender nondistended normoactive bowel sounds Extrem: Other: Trace edema bilaterally DS: Data Data Completed and Pending Completed studies during hospitalization [Text1]: Procedures Extraction of Right Inguinal Lymphatic, Percutaneous Approach, Diagnostic (04/23/20) Labs on day of discharge: Laboratory Results - last 24 hr 11/04/22 14:08 Random Vancomycin 12.4 L Preliminary micro results at discharge 10/30/22 Unknown Catheter Tip Culture - Preliminary Catheter Tip - Subclavian Staphylococcus species 10/28/22 10:49 Blood Culture - Preliminary Blood - Venous Staphylococcus aureus 10/28/22 10:09 Blood Culture - Preliminary Blood - Venous Staphylococcus aureus Discharge Plan Discharge Anticipated Discharge Date/Time: 11/05/22 12:36 Patient Disposition: Home, Self-Care Discharge Diagnosis: Syncope Referrals: Segundo Tapia MD [Primary Care Provider] - 1 Week Discharge Medications: Continued levothyroxine 75 mcg Tablet 75 mcg PO DAILY atorvastatin 40 mg tablet 40 mg PO DAILY tamsulosin 0.4 mg capsule 1 cap PO DAILY pantoprazole 40 mg tablet,delayed release (DR/EC) 1 tab PO DAILY metoprolol tartrate 25 mg tablet 0.5 tab PO DAILY sertraline 25 mg tablet 1 tab PO DAILY Discharge Orders: Discharge Order (Routine); Ordered 11/05/22 Ordered By: Brian Willson Diet: Advance to usual diet Activity on Discharge: As tolerated Stand Alone Forms: Patient Portal Discharge page Care Plan Goals: Resume all pre-hospital medicines Health Concerns: You will receive vancomycin after dialysis as ordered for 4 weeks Plan of Treatment: Hemodialysis as per Renal Assessment: See discharge summary
--- NOTE | 2022-11-05 16:01 | P.CDIM_ITS ---
PROVIDER RESPONSE TEXT: To clarify, the appropriate diagnosis supported by the clinical indicators: Hypocalcemia or other etiology of lab findings QUERY TEXT: PHYSICIAN'S DOCUMENTATION REQUEST Date of Query: 11/05/2022 10:04 AM EDT Patient Name: Milan Anglees Admit Date: 10/28/2022 Dear Brian Willson, A review of the medical record indicates additional documentation may be needed. Please review below and update the documentation accordingly. Clinical Indicators: LAB FINDINGS: calcium 7.0 7.5 Based on the above, could you clarify the appropriate diagnosis, if significant, that supports the ab ove abnormalities and additional evaluation, monitoring, and/or treatment rendered: Hypocalcemia or other etiology of lab findings Unable to determine Other (explain) Clinically unable to determine (explain) Thank you, Deborah Kilpatrick, CCS, CDIS Use of terms such as suspected, likely, concern for, or probable (associated with a specific diagnosi s that is being evaluated, monitored, or treated as if it exists) are acceptable and can be coded in the inpatient se tting, when documented at the time of discharge. Please use your independent medical judgment in providing your response. THIS QUERY IS PART OF THE PERMANENT MEDICAL RECORD
[2022-11-08 10:59] LABS: Legionella Ag Urine NOT DETECTED
--- NOTE | 2022-11-22 12:39 | P.CDIM_ITS ---
PROVIDER RESPONSE TEXT: To clarify, the appropriate diagnosis supported by the clinical indicators: (CLABSI) Central line associated blood stream infection QUERY TEXT: PHYSICIAN'S DOCUMENTATION REQUEST Date of Query: 11/13/2022 08:55 AM EDT Patient Name: Milan Angeles Admit Date: 10/28/2022 Dear Brian Willson, A review of the medical record indicates additional documentation may be needed. Please review below and update the documentation accordingly. Clinical Indicators: Progress note 10/29 - GPC 2/2 bacteremia, Continue Vancomycin, ID Eval, may need permacath removal. Te mp 100.5 Tachycardia 103 ID note 10/30 - Micro lab-Catheter tip culture - Staphylococcus aureus - Dialysis cath likely source, removed and when blood culture clear new one to be placed. Replacement permacath 11/03 continue Vancomycin. Based on the above, could you clarify the appropriate diagnosis, if significant, that supports the ab ove abnormalities and additional evaluation, monitoring, and/or treatment rendered: (CLABSI) Central line associated blood stream infection Other if known Unable to determine Other (explain)Clinically unable to determine (explain)Thank you, Deborah Kilpatrick, CCS, CDIS Use of terms such as suspected, likely, concern for, or probable (associated with a specific diagnosi s that is being evaluated, monitored, or treated as if it exists) are acceptable and can be coded in the inpatient se tting, when documented at the time of discharge. Please use your independent medical judgment in providing your response. THIS QUERY IS PART OF THE PERMANENT MEDICAL RECORD
--- NOTE | 2022-11-22 12:39 | P.CDIM_ITS ---
PROVIDER RESPONSE TEXT: To clarify, the appropriate diagnosis supported by the clinical indicators: Post covid pneumonia QUERY TEXT: PHYSICIAN'S DOCUMENTATION REQUEST Date of Query: 11/13/2022 09:10 AM EDT Patient Name: Milan Angeles Admit Date: 10/28/2022 Dear Brian Willson, A review of the medical record indicates additional documentation may be needed. Please review below and update the documentation accordingly. Clinical Indicators: ED 10/28 - Clinical impression - Pneumonia due to Covid 19 H&P 10/28 - ? post Covid complicated Bacterial Pneumonia, Vancomycin/Cefepime/pul eval. ID 10/30 - Staphylococcal pneumonia, Continue vancomycin probably four weeks with HD. Progress note 11/01 - Rt loculated pleural effusion, s/p Thoracentesis, follow up lab. Based on the above, could you clarify in the Progress Notes further specificity regarding the most li tadeo type of pneumonia: Pneumonia, present on arrival Post covid pneumonia Other or unable to determine Other (explain)Clinically unable to determine (explain)Thank you, Deborah Kilpatrick, CCS, CDIS Use of terms such as suspected, likely, concern for, or probable (associated with a specific diagnosi s that is being evaluated, monitored, or treated as if it exists) are acceptable and can be coded in the inpatient se tting, when documented at the time of discharge. Please use your independent medical judgment in providing your response. THIS QUERY IS PART OF THE PERMANENT MEDICAL RECORD
== END 2022-11-05 13:29 | disposition home or self-care (01) | DRG 314 ==
LOC: HO.ED 12:22 → HO.EDOVER 14:37 → HO.IMC 19:46
PROVIDERS: Radiology Diagnostic Radiology; Admitting Provider Internal Medicine; Emergency Provider Emergency Medicine; PCP Internal Medicine; Visit Provider Hospitalist
PROC: 009U3ZZ Drainage of Spinal Canal, Percutaneous Approach (ICD-10-PCS; CPT 62270; principal; 2022-10-30 11:00)
PROC: 0JH63XZ Insertion of Tunneled Vascular Access Device into Chest Subcutaneous Tissue and Fascia, Percutaneous Approach (ICD-10-PCS; principal; 2022-11-03 11:30)
DX: T80.211A Bloodstream infection due to central venous catheter, initial encounter (principal); J15.211 Pneumonia due to Methicillin susceptible Staphylococcus aureus; N18.6 End stage renal disease; I13.2 Hypertensive heart and chronic kidney disease with heart failure and with stage 5 chronic kidney disease, or end stage renal disease; D80.1 Nonfamilial hypogammaglobulinemia; J91.8 Pleural effusion in other conditions classified elsewhere; R78.81 Bacteremia; I50.32 Chronic diastolic (congestive) heart failure; Z99.2 Dependence on renal dialysis; U09.9 Post COVID-19 condition, unspecified; E13.22 Other specified diabetes mellitus with diabetic chronic kidney disease; I25.10 Atherosclerotic heart disease of native coronary artery without angina pectoris; Z95.1 Presence of aortocoronary bypass graft; Y82.8 Other medical devices associated with adverse incidents; B95.61 Methicillin susceptible Staphylococcus aureus infection as the cause of diseases classified elsewhere; E83.51 Hypocalcemia; Z95.2 Presence of prosthetic heart valve; E03.9 Hypothyroidism, unspecified; N40.0 Benign prostatic hyperplasia without lower urinary tract symptoms; Z87.891 Personal history of nicotine dependence; Z88.0 Allergy status to penicillin; Z79.890 Hormone replacement therapy; Z79.899 Other long term (current) drug therapy
CPT/HCPCS: 0241U; 32555; 36415; 36558; 36590; 70450; 71045; 71046; 71250; 76937; 80048; 80053; 80202; 81001; 82550; 82945; 82947; 83605; 83615; 83735; 83880; 83986; 84157; 84484; 85025; 85027; 85379; 85610; 87040; 87070; 87071; 87073; 87077; 87147; 87186; 87205; 87449; 87633; 89051; 90999; 93005; 93308; 97116; 97162; 99152; 99285; C1752; C1769; J0692; J0696; J1643; J3370; J3371; Q9957

== ENCOUNTER 2022-12-08 11:54 | Outpatient (REF) | payer MEDICARE, MEDICAID, SELFPAY ==
[2022-12-08 13:44] LABS: MANUAL DIFF FLAG NO
[2022-12-08 13:54] LABS: Basophils Absolute Auto 0.1 X10*3/uL (0.0-0.2); Basophils Percent Auto 1.1 % (0-2); Eosinophils Absolute Auto 0.8 X10*3/uL (0.0-0.4); Eosinophils Percent Auto 8.4 % (0-4); Hematocrit 33.4 % (42.0-52.0); Hemoglobin 10.6 g/dl (14.0-18.0); Imm Gran Abs Auto 0.15 X10*3/uL (0.00-0.03); Imm Gran Pct Auto 1.6 % (0.0-0.4); Lymphocytes Absolute Auto 1.2 X10*3/uL (1.2-4.9); Lymphocytes Percent Auto 12.5 % (20-40); Mean Corpuscular HGB Conc 31.7 g/dl (31.0-36.0); Mean Corpuscular Hemoglobin 31.4 pg (27.0-33.0); Mean Corpuscular Volume 98.8 fL (80.0-98.0); Monocytes Absolute Auto 1.1 X10*3/uL (0.1-1.2); Monocytes Percent Auto 12.1 % (2-11); Neutrophils Percent Auto 64.3 % (45-73); Platelet Count 362 X10*3/uL (160-400); Red Blood Count 3.38 X10*6/uL (4.60-5.80); Red Cell Distribution Width 14.9 % (11.0-16.0); White Blood Count 9.3 X10*3/uL (4.8-10.8)
[2022-12-08 14:00] LABS: Estimated Average Glucose 126 mg/dL
[2022-12-08 14:29] LABS: Thyroid Stimulating Hormone 1.99 uIU/mL (0.32-4.0)
[2022-12-08 14:43] LABS: Alanine Aminotransferase 14 U/L (0-40); Albumin Level 2.8 g/dL (3.5-5.0); Alkaline Phosphatase 70 U/L (39-117); Anion Gap 18 (12-20); Aspartate Amino Transferase 12 U/L (5-37); Bilirubin Total 0.2 mg/dL (0.0-1.0); Blood Urea Nitrogen 88 mg/dL (9-16); Calcium 9.1 mg/dL (8.4-10.2); Carbon Dioxide 17 mmol/L (22-29); Chloride 108 mmol/L (96-108); Estimated Glomerular Filt Rate 8; Glucose Random 189 mg/dL (60-115); Iron 74 mcg/dL (45-160); Percent Iron Saturation 35 % (15-50); Potassium 5.9 mmol/L (3.3-5.1); Sodium 137 mmol/L (135-145); Total Iron Binding Capacity 210 mcg/dL (228-428); Total Protein 5.5 g/dL (6.5-8.0); Unsaturated Iron Binding 136 ug/dL
== END 2022-12-08 11:55 | disposition home or self-care (01) ==
LOC: HO.10HDL 11:54
PROVIDERS: Visit Provider Internal Medicine
DX: E11.22 Type 2 diabetes mellitus with diabetic chronic kidney disease (principal); N18.9 Chronic kidney disease, unspecified; D63.1 Anemia in chronic kidney disease; E03.9 Hypothyroidism, unspecified
CPT/HCPCS: 36415; 80053; 83036; 83540; 84439; 84443; 85025

== ENCOUNTER 2023-02-15 21:25 | Inpatient (IN) | payer MEDICARE, MEDICAID, SELFPAY ==
--- NOTE | ~2023-02-15 | XR_ITS ---
EXAMINATION: XR CHEST CLINICAL INFORMATION: Weakness COMPARISON: 10/30/2022 TECHNIQUE: Frontal view of the chest was obtained. FINDINGS: New right IJ dual lumen dialysis catheter. No pneumothorax. Stable mediastinal silhouette. Pulmonary venous congestion without overt edema. Bibasilar subsegmental atelectasis. Small bilateral pleural effusions. No discrete consolidation. No acute osseous abnormalities. XR/XR chest 1V IMPRESSION: * Pulmonary venous congestion without overt edema. * Small bilateral pleural effusions and accompanying atelectasis.
--- NOTE | ~2023-02-15 | CT_ITS ---
EXAMINATION: CT ABDOMEN AND PELVIS WITHOUT CONTRAST CLINICAL INFORMATION: Pain COMPARISON: 04/16/2020 TECHNIQUE: Multidetector volumetric imaging was performed from the superior aspect of the liver through the pubic symphysis. Sagittal and coronal reformatted images were obtained on the technologist's workstation. This CT examination was performed using dose optimization techniques as appropriate, variously including the following: *Automated exposure control *Adjustment of mA and/or kV according to patient size (this includes techniques or standardized protocols for targeted exams where dose is matched to indication/reason for exam; i.e. extremities or head) *Use of iterative reconstruction technique DLP: 747 mGy-cm FINDINGS: LUNG BASES: Chronic loculated right pleural effusion and accompanying pleural-parenchymal scarring/round atelectasis. Aortic valve replacement. LIVER, GALLBLADDER, AND BILIARY TREE: The liver is normal in size, shape, and attenuation. Scattered hepatic hypodensities compatible with cysts and/or hamartomas. No suspicious liver lesions evident on this unenhanced exam.. No biliary dilatation. Gallbladder unremarkable. PANCREAS: Unremarkable. SPLEEN: Unremarkable. ADRENAL GLANDS: Unremarkable. KIDNEYS AND URETERS: The kidneys are normal in size, shape, and attenuation. No hydronephrosis, hydroureter, or calculi seen. No perinephric stranding. BLADDER: Unremarkable accounting for its degree of distention. GASTROINTESTINAL TRACT: Pancolonic diverticulosis. No evidence of diverticulitis. Normal appendix. Small sliding-type hiatal hernia. Stomach otherwise unremarkable. Normal small bowel. ABDOMINAL WALL: No significant hernia is appreciated. LYMPH NODES: Normal. VASCULAR: Aorta is atherosclerotic but normal caliber. PELVIC VISCERA: Unremarkable. OSSEOUS STRUCTURES: No acute or suspicious osseous abnormalities. CT/CT abdomen pelvis wo IV con IMPRESSION: * No acute findings within the abdomen or pelvis to explain the patient's symptomatology. * Pancolonic diverticulosis without evidence of diverticulitis. * Chronic loculated right pleural effusion and accompanying pleural-parenchymal scarring/round atelectasis.
--- NOTE | ~2023-02-15 | IR_ITS ---
PROCEDURE: IR INSERTION OF TUNNEL CATHETER CLINICAL INFORMATION: Renal failure. History of previous infected permacath COMPARISON: None available. TECHNIQUE: Procedure and risks and benefits including bleeding, infection and pneumothorax were discussed with the patient and informed consent was obtained. All elements of maximal sterile barrier technique followed including use of cap, mask, sterile gown, sterile gloves, a sterile full body drape and hand hygiene. Also followed skin preparation with 2% chlorhexidine for cutaneous antisepsis, and sterile ultrasound preparation with sterile gel and probe cover when applicable. The right neck and upper chest were prepped and draped in the usual sterile fashion. The skin and soft tissues were anesthetized with 1% lidocaine plain. Using ultrasound guidance and a 5 Peruvian micropuncture system, right internal jugular vein access was obtained. Over an 018 wire, a 5 Peruvian dilator was positioned in the SVC. The skin and soft tissues of the right upper anterior chest were anesthetized with 1% lidocaine plain. A small incision was made. A subcutaneous tunnel from the chest to the neck incision was anesthetized with 1% lidocaine plain. Using a tunneler, a 14.5 Peruvian 19 cm in length glidepath permacath was tunneled from the chest to the neck incision. An 035 guidewire was advanced through the 5 [place]uvian dilator into the IVC. Following serial dilatation and through a peel-away sheath, permacath was advanced centrally. Catheter tip is at the cavoatrial junction. Both ports flushed well, had good blood return and were instilled with 1.6 mL heparin 1000 unit per mL solution. The neck incision was closed using a 3 0 absorbable subcuticular suture. The chest incision was closed using a 3 0 mattress suture. Real-time ultrasound guidance was used to document vein patency and for needle entry. A formal ultrasound picture was recorded. The patient received Versed 1 mg and fentanyl 50 mcg IV during the procedure. Conscious sedation was provided by registered nurse under my direct supervision. Total patient [id number] contact time was 27 minutes. 1 saved fluoroscopic image. Fluoroscopy time 1.2 minutes. DAP 147 CG Y per centimeter squared. 1 saved fluoroscopic image and one saved ultrasound image. Left neck temporary dialysis catheter was subsequently removed. FINDINGS: There is a right internal jugular permacath with tip projecting over the cavoatrial junction. IR/IR cvc insert central tunnel IMPRESSION: Right internal jugular 14.5 Peruvian 19 cm in length glidepath permacath placement.
--- NOTE | ~2023-02-15 | IR_ITS ---
Removal of the tunneled dialysis catheter from the right side of the chest INDICATIONS: Bacteremia After informed written consent was obtained in official timeout was performed prior to the procedure. PROCEDURE: At the bedside in the ICU the previously placed dialysis line was prepped and draped in usual fashion. 1% lidocaine was used for local anesthetic. The cuff of the dialysis catheter was freed from the subcutaneous tunnel with blunt dissection. The catheter was easily removed in its entirety. Manual pressure was applied and hemostasis obtained. IR/IR cvc remov tunnel wo prt/relationship manager IMPRESSION: Removal of the tunneled dialysis catheter from the right IJ approach.
--- NOTE | ~2023-02-15 | CT_ITS ---
EXAMINATION: CT CHEST WITHOUT CONTRAST CLINICAL INFORMATION: Rule out infiltrate COMPARISON: 10/28/2022 TECHNIQUE: Multidetector volumetric CT imaging of the chest was done. Axial MIP volume rendering provided. Sagittal and coronal reformatted images were obtained. This CT examination was performed using dose optimization techniques as appropriate, variously including the following: *Automated exposure control *Adjustment of mA and/or kV according to patient size (this includes techniques or standardized protocols for targeted exams where dose is matched to indication/reason for exam; i.e. extremities or head) *Use of iterative reconstruction technique DLP: 426 mGy-cm FINDINGS: LUNGS/PLEURA: No acute pneumonic process. Chronic loculated right pleural effusion and accompanying pleural thickening and pleuroparenchymal scarring/round atelectasis in the dependent right lower lobe with interspersed coarse calcifications. There are additional scattered calcified granulomata throughout both lungs. Stable 3 mm nodule in the right upper lobe on series 5, image 245. MEDIASTINUM/REJI: Median sternotomy with aortic valve replacement. Normal heart size. No pericardial effusion. No mediastinal or hilar lymphadenopathy. CORONARY ARTERY CALCIFICATION: Present. CHEST WALL/AXILLA: No lymphadenopathy. UPPER ABDOMEN: Unremarkable. OSSEOUS STRUCTURES: No acute or suspicious osseous abnormalities. CT/CT chest wo IV con IMPRESSION: * No acute pneumonic process. * Chronic loculated right pleural effusion with accompanying pleural thickening and pleuroparenchymal scarring/round atelectasis in the dependent right lower lobe. * Scattered calcified granulomata throughout both lungs compatible with prior granulomatous disease. * Stable 3 mm nodule in the right upper lobe. Per the 2017 revised Fleischner Society guidelines, no routine follow up is necessarily required in low-risk patients, and consideration of [address] is recommended for patients at high-risk for the development of pulmonary neoplasm.
--- NOTE | ~2023-02-15 | IR_ITS ---
PROCEDURE: IR INSERTION OF TUNNEL CATHETER CLINICAL INFORMATION: Renal failure. History of previous infected permacath COMPARISON: None available. TECHNIQUE: Procedure and risks and benefits including bleeding, infection and pneumothorax were discussed with the patient and informed consent was obtained. All elements of maximal sterile barrier technique followed including use of cap, mask, sterile gown, sterile gloves, a sterile full body drape and hand hygiene. Also followed skin preparation with 2% chlorhexidine for cutaneous antisepsis, and sterile ultrasound preparation with sterile gel and probe cover when applicable. The right neck and upper chest were prepped and draped in the usual sterile fashion. The skin and soft tissues were anesthetized with 1% lidocaine plain. Using ultrasound guidance and a 5 Kyrgyz micropuncture system, right internal jugular vein access was obtained. Over an 018 wire, a 5 Kyrgyz dilator was positioned in the SVC. The skin and soft tissues of the right upper anterior chest were anesthetized with 1% lidocaine plain. A small incision was made. A subcutaneous tunnel from the chest to the neck incision was anesthetized with 1% lidocaine plain. Using a tunneler, a 14.5 [place]z 19 cm in length glidepath permacath was tunneled from the chest to the neck incision. An 035 guidewire was advanced through the 5 [place]yr[place]z dilator into the IVC. Following serial dilatation and through a peel-away sheath, permacath was advanced centrally. Catheter tip is at the cavoatrial junction. Both ports flushed well, had good blood return and were instilled with 1.6 mL heparin 1000 unit per mL solution. The neck incision was closed using a 3 0 absorbable subcuticular suture. The chest incision was closed using a 3 0 mattress suture. Real-time ultrasound guidance was used to document vein patency and for needle entry. A formal ultrasound picture was recorded. The patient received Versed 1 mg and fentanyl 50 mcg IV during the procedure. Conscious sedation was provided by registered nurse under my direct supervision. Total patient [id number] contact time was 27 minutes. 1 saved fluoroscopic image. Fluoroscopy time 1.2 minutes. DAP 147 CG Y per centimeter squared. 1 saved fluoroscopic image and one saved ultrasound image. Left neck temporary dialysis catheter was subsequently removed. FINDINGS: There is a right internal jugular permacath with tip projecting over the cavoatrial junction. IR/IR us guide venous access IMPRESSION: Right internal jugular 14.5 Kyr[place]z 19 cm in length glidepath permacath placement.
--- NOTE | ~2023-02-15 | XR_ITS ---
EXAMINATION: XR CHEST CLINICAL INFORMATION: CVC placement. COMPARISON: CT chest earlier today. Chest radiograph 02/15/2023. TECHNIQUE: Frontal view of the chest was obtained. FINDINGS: Stable prominence of the cardiomediastinal silhouette. Sternal wires and aortic valve again noted. Left IJ CVC tip projects at the level of the left brachiocephalic junction. Stable asymmetric haziness of the right mid and lower lung. No pneumothorax. No new focal airspace opacities. No acute osseous findings. XR/XR chest 1V IMPRESSION: 1. Left IJ CVC tip projects at the level of the left brachiocephalic junction, not crossing the midline, recommend clinical correlation with appropriate functioning and if indicated repositioning. 2. No pneumothorax. 3. Stable asymmetric haziness of the right mid and lower lung in keeping with chronic loculated pleural effusion with associated atelectasis as visualized on CT from earlier today.
[2023-02-15 21:32] VITALS: BP 140/60; PULSE 109; PULSE 113; RESP 20; TEMP 38.8; O2SAT 96; O2SAT 98; BMI 25.1
--- NOTE | 2023-02-15 21:39 | ECG_ITS ---
Test Reason : CHEST PAIN Blood Pressure : / mmHG Vent. Rate : 119 BPM Atrial Rate : 119 BPM P-R Int : 176 ms QRS Dur : 090 ms QT Int : 324 ms P-R-T Axes : 021 011 045 degrees QTc Int : 455 ms Sinus tachycardia Otherwise normal ECG When compared with ECG of 28-OCT-2022 10:04, T wave amplitude has increased in Lateral leads Referred By: Generic ED Physician Electronically Signed By:RUT CUELLO
[2023-02-15 22:15] LABS: Basophils Absolute Auto 0.1 X10*3/uL (0.0-0.2); Basophils Percent Auto 0.4 % (0-2); Eosinophils Absolute Auto 0.1 X10*3/uL (0.0-0.4); Eosinophils Percent Auto 0.5 % (0-4); Hemoglobin 11.5 g/dl (14.0-18.0); Imm Gran Pct Auto 0.7 % (0.0-0.4); Lymphocytes Absolute Auto 0.4 X10*3/uL (1.2-4.9); Lymphocytes Percent Auto 3.1 % (20-40); MANUAL DIFF FLAG SCAN; Mean Corpuscular HGB Conc 34.8 g/dl (31.0-36.0); Mean Corpuscular Hemoglobin 32.7 pg (27.0-33.0); Mean Corpuscular Volume 93.8 fL (80.0-98.0); Monocytes Absolute Auto 0.6 X10*3/uL (0.1-1.2); Monocytes Percent Auto 4.7 % (2-11); Neutrophils Absolute Auto 12.3 x10*3/uL (2.0-8.3); Neutrophils Percent Auto 90.6 % (45-73); Platelet Count 263 X10*3/uL (160-400); Red Blood Count 3.52 X10*6/uL (4.60-5.80); Red Cell Distribution Width 13.8 % (11.0-16.0); SCAN SMEAR FLAG 1; White Blood Count 13.6 X10*3/uL (4.8-10.8)
[2023-02-15 22:20] LABS: SLIDE REVIEW VERIFIED
[2023-02-15 22:25] LABS: Lactic Acid 1.2 mmol/L (0.5-2.0)
[2023-02-15 22:35] LABS: Alanine Aminotransferase 12 U/L (0-40); Albumin Level 3.3 g/dL (3.5-5.0); Alkaline Phosphatase 90 U/L (39-117); Anion Gap 21 (12-20); Aspartate Amino Transferase 10 U/L (5-37); Bilirubin Total 0.4 mg/dL (0.0-1.0); Blood Urea Nitrogen 34 mg/dL (9-16); Calcium 9.8 mg/dL (8.4-10.2); Carbon Dioxide 18 mmol/L (22-29); Chloride 102 mmol/L (96-108); Creatinine Clr Calc Pharmacy 15.7; Estimated Glomerular Filt Rate 12; Glucose Random 254 mg/dL (60-115); Potassium 4.8 mmol/L (3.3-5.1); Sodium 136 mmol/L (135-145); Total Protein 7.2 g/dL (6.5-8.0)
[2023-02-15 22:50] VITALS: BP 135/61; PULSE 116; RESP 12; TEMP 38.8; O2SAT 99
--- NOTE | 2023-02-15 22:50 | ED.GENADULT ---
HPI - General Adult General Chief complaint: General Medical Stated complaint: not feeling well, vomiting Time Seen by Provider: 02/15/23 22:29 Source: patient, RN notes reviewed and old records reviewed Mode of arrival: EMS Limitations: other (Poor historian) History of Present Illness HPI narrative: 67-year-old male past medical history significant for end-stage renal disease on dialysis Wednesday, Wednesday, Wednesday, is to heart failure, hypertension, diabetes, nephrotic syndrome presents for evaluation of fever Patient reports he has not been feeling well for the last 4 or 5 hours He reports that he is ?sick to my stomach. ? He arrives with temperature of a 101.8? The patient reports that he had dialysis today and at dialysis ?they told me I had a line infection. ? He reports that he had blood cultures drawn yesterday but I do not have access to these results in our computer system He denies any coughing, shortness of breath, rashes The patient's abrasive sawyer is Dr. Riebiro Related Data Home Medications Medication Instructions Recorded Confirmed levothyroxine 75 mcg tablet 75 mcg PO DAILY 06/27/20 10/28/22 atorvastatin 40 mg tablet 40 mg PO DAILY 02/10/22 10/28/22 metoprolol tartrate 25 mg tablet 0.5 tab PO DAILY 10/03/22 10/28/22 pantoprazole 40 mg tablet,delayed 1 tab PO DAILY 10/03/22 10/28/22 release sertraline 25 mg tablet 1 tab PO DAILY 10/03/22 10/28/22 tamsulosin 0.4 mg capsule 1 cap PO DAILY 10/03/22 10/28/22 Allergies Allergy/AdvReac Type Severity Reaction Status Date / Time Penicillins Allergy Unknown UNKWN Verified 07/24/22 09:42 Review of Systems Constitutional: Constitutional: Reports chills, Reports fever(s), Reports malaise and Reports weakness Cardiovascular: Cardiovascular: Denies chest pain and Denies dyspnea Respiratory: Respiratory: Denies cough and Denies dyspnea Gastrointestinal: Gastrointestinal: Reports abdominal pain, Reports nausea and Denies vomiting Genitourinary: Genitourinary: Denies dysuria Integumentary/Breasts: Skin/Breast: Denies erythema and Denies rash Neurologic: Reports weakness PMFSH Past Medical History Medical History Acute hypokalemia Acute on chronic renal failure Anasarca associated with disorder of kidney Anasarca associated with disorder of kidney Aortic stenosis CHF (congestive heart failure), NYHA class I CKD (chronic kidney disease) stage 3, GFR 30-59 ml/min Congestive heart failure Congestive heart failure Diabetes 1.5, managed as type 2 Diverticulosis Hiatal hernia History of small bowel obstruction Hyperlipidemia Hypertension 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 Social History Social History Household Members: None Housing: Apartment Do you presently have visiting nurse or other home services: No Unable to assess alcohol history related to: Unknown Alcohol intake: never Patient Tobacco Use Status: Former Tobacco user Quit Date: 5 years ago Tobacco use type: Cigarette Years Smoked: 30 Smoked in Last 30 Days: Yes Second Hand Smoke Exposure: No Use of substances other than those prescribed or required for medical reasons: No Advance Directives: Yes Advance Directives on File: Yes Advance Directives Date on File: 05/01/20 service: No Current occupational status: unemployed and disabled Physical Exam ED Vital Signs: Vital Signs - 24 hr 02/15/23 21:32 02/15/23 22:50 02/15/23 23:30 Temperature 101.8 F H 101.8 F H 100.6 F H Pulse Rate 109 H 116 H 122 H Respiratory Rate 20 12 20 Blood Pressure 135/61 127/56 L Pulse Oximetry 96 99 94 Oxygen Delivery Method Room Air Room Air Room Air 02/15/23 23:50 02/16/23 01:13 Temperature 100.7 F H 99.5 F Pulse Rate 131 H 118 H Respiratory Rate 18 12 Blood Pressure 123/59 L 121/52 L Pulse Oximetry 96 97 Oxygen Delivery Method Room Air Room Air BMI result Body Mass Index 25.1 Const General: healthy appearing, comfortable, no acute distress, alert and awake Nutritional Appearance: well nourished Orientation/consciousness: patient oriented x3 HENMT Head: Yes normocephalic and Yes atraumatic Eyes Eyelids: Yes eyelids normal Conjunctivae: conjunctivae normal Sclerae: sclerae normal Corneas: corneas normal Pupils: Equal, round and reactive pupils present EOM: EOMs intact bilaterally Neck Neck: Yes full ROM Resp Effort & Inspection: normal respiratory effort, able to speak in complete sentences, no audible wheezes and not labored Auscultation: clear to auscultation bilaterally GI Inspection: Yes distended (Soft but slightly distended abdomen) and Yes obesity Palpation (GI): Soft to palpation, not firm, nontender, no guarding and not rigid Auscultation: normoactive bowel sounds Skin General skin exam: no rashes or lesions noted and elasticity normal Neuro General: patient oriented x3 Cranial nerves: Yes Equal, round and reactive pupils present and Yes Bilaterally intact EOM present Cognition (Neuro): normal cognition Extrem Other: Moving all extremities well without any obvious deformities Course Reevaluation(s) Reevaluation #1: Tachycardic with a white count of 13.6. At this point a sepsis alert was called. He is not in septic shock as he is normotensive and his lactate is 1.4. He received IV fluids, antibiotics. Time: 22:51 Reevaluation #2: Patient's CT scan resulted all with no acute findings. Will discuss the hospitalist for admission of sepsis. Patient has received broad-spectrum antibiotics Time: 01:17 Medications Administered Discontinued Medications Generic Name Dose Route Start Last Admin Trade Name Joseq PRN Reason Stop Dose Admin Acetaminophen 975 mg 02/15/23 22:42 02/15/23 23:03 Acetaminophen 325 Mg Tablet PO 02/15/23 22:43 975 mg ONCE ONE Administration Vancomycin HCl 1,500 mg/ 500 mls @ 333.333 mls/hr 02/15/23 22:46 02/16/23 01:25 Sodium Chloride IV 02/16/23 00:15 Infused ONCE ONE Infusion Sodium Chloride 150 mls @ 999 mls/hr 02/15/23 23:30 02/15/23 23:33 Ns IV 02/15/23 23:39 Infused .Q10M ROSALIA Infusion Cefepime HCl 1 gm/ Sodium 50 mls @ 100 mls/hr 02/16/23 01:03 02/16/23 02:59 Chloride IV 02/16/23 01:32 Infused ONCE ONE Infusion Medical Decision Making Medical Decision Making MDM Narrative: 67-year-old male presents for evaluation of a fever. It is unclear if he actually had positive blood cultures and I do not see any positive results in the computer. We will draw blood cultures. He did have a white count of 13.6 K. His lactic acid was normal. He is normotensive but is tachycardic. A sepsis alert was called the patient is not in severe sepsis. Imaging is pending to help try to identify source of fever. -patient's blood pressure has been in the low 100s, however, the map has been less than 65 -at this time, Dr. Acuna recommends ICU admission -at this time, patient is maintaining well, perfusing well. The at this time I did not start pressors. -Dr. Bravo evaluated the patient at bedside, will be admitted to the ICU. Differential Diagnosis Differential Diagnoses: The differential diagnosis associated with the presentation includes Sepsis Bacteremia Catheter infection Cellulitis UTI Viral syndrome Admission/Observation Consideration of admission/observation: Escalation of care including admission/observation considered Consult Healthcare Provider Management of the patient was discussed with: Hospitalist and Electrical Engineering Drafting Officer Lab Data MDM Lab Attestation statement: I reviewed the patient's lab results. White count of 13.6k. 11.5 and his hematocrit is 33.0. Normal platelet count. Patient's sodium potassium within normal limits. His CO2 was low at 18. BUN and creatinine is elevated to 34 and 5.01 respectively. Patient's glucose is elevated to 254 02/15/23 22:06 02/15/23 22:06 Labs: Lab Results 02/15/23 02/15/23 02/15/23 Range/Units 22:06 22:06 22:06 WBC 13.6 H (4.8-10.8) X10*3/uL RBC 3.52 L (4.60-5.80) X10*6/uL Hgb 11.5 L (14.0-18.0) g/dl Hct 33.0 L (42.0-52.0) % MCV 93.8 (80.0-98.0) fL MCH 32.7 (27.0-33.0) pg MCHC 34.8 (31.0-36.0) g/dl RDW 13.8 (11.0-16.0) % Plt Count 263 D (160-400) X10*3/uL MPV 9.0 L (9.4-12.4) fL Immature Gran % (Auto) 0.7 H (0.0-0.4) % Neut % (Auto) 90.6 H (45-73) % Lymph % (Auto) 3.1 L (20-40) % [place] % (Auto) 4.7 (2-11) % Eos % (Auto) 0.5 (0-4) % Baso % (Auto) 0.4 (0-2) % Lymph # (Auto) 0.4 L (1.2-4.9) X10*3/uL [place] # (Auto) 0.6 (0.1-1.2) X10*3/uL Eos # (Auto) 0.1 (0.0-0.4) X10*3/uL Baso # (Auto) 0.1 (0.0-0.2) X10*3/uL Abs Immat Gran (auto) 0.10 H (0.00-0.03) X10*3/uL Absolute Neuts (auto) 12.3 H (2.0-8.3) x10*3/uL Absolute Nucleated RBC 0.000 (0.0-0.012) X10*3/uL Nucleated RBC % (auto) 0.0 (0.0-0.2) /100WBC Smear Tech's Comments VERIFIED Sodium 136 (135-145) mmol/L Potassium 4.8 (3.3-5.1) mmol/L Chloride 102 (96-108) mmol/L Carbon Dioxide 18 L (22-29) mmol/L Anion Gap 21 H (12-20) BUN 34 H (9-16) mg/dL Creatinine 5.01 H* (0.5-1.4) mg/dL Estim Creat Clear Calc 15.7 Estimated GFR 12 Random Glucose 254 H (60-115) mg/dL Lactic Acid 1.2 (0.5-2.0) mmol/L Calcium 9.8 D (8.4-10.2) mg/dL Total Bilirubin 0.4 (0.0-1.0) mg/dL AST 10 (5-37) U/L ALT 12 (0-40) U/L Alkaline Phosphatase 90 (39-117) U/L Total Protein 7.2 (6.5-8.0) g/dL Albumin 3.3 L (3.5-5.0) g/dL Urine Color Urine Appearance Urine pH (5.0-9.0) Ur Specific [place] (1.005-1.025) Urine Protein (Neg-Trace) mg/dL Urine Glucose (UA) (Negative) mg/dL Urine Ketones (Negative) mg/dL Urine Blood (Negative) Urine Nitrite (Negative) Ur Leukocyte Esterase (Negative) Urine RBC (0-2) /HPF Urine WBC (0-5) /HPF Ur Squamous Epith Cells (0-2) /HPF Urine Bacteria (None Seen) Hyaline Casts (0-2) /LPF COVID-19 (CYRUS) (Negative) COVID-19 Clin Com Influenza Type A (DAGMAR) (Negative) Influenza Type B (DAGMAR) (Negative) Influenza A & B Note 02/15/23 02/15/23 02/15/23 Range/Units 22:53 22:58 22:58 WBC (4.8-10.8) X10*3/uL RBC (4.60-5.80) X10*6/uL Hgb (14.0-18.0) g/dl Hct (42.0-52.0) % MCV (80.0-98.0) fL MCH (27.0-33.0) pg MCHC (31.0-36.0) g/dl RDW (11.0-16.0) % Plt Count (160-400) X10*3/uL MPV (9.4-12.4) fL Immature Gran % (Auto) (0.0-0.4) % Neut % (Auto) (45-73) % Lymph % (Auto) (20-40) % [place] % (Auto) (2-11) % Eos % (Auto) (0-4) % Baso % (Auto) (0-2) % Lymph # (Auto) (1.2-4.9) X10*3/uL [place] # (Auto) (0.1-1.2) X10*3/uL Eos # (Auto) (0.0-0.4) X10*3/uL Baso # (Auto) (0.0-0.2) X10*3/uL Abs Immat Gran (auto) (0.00-0.03) X10*3/uL Absolute Neuts (auto) (2.0-8.3) x10*3/uL Absolute Nucleated RBC (0.0-0.012) X10*3/uL Nucleated RBC % (auto) (0.0-0.2) /100WBC Smear Tech's Comments Sodium (135-145) mmol/L Potassium (3.3-5.1) mmol/L Chloride (96-108) mmol/L Carbon Dioxide (22-29) mmol/L Anion Gap (12-20) BUN (9-16) mg/dL Creatinine (0.5-1.4) mg/dL Estim Creat Clear Calc Estimated GFR Random Glucose (60-115) mg/dL Lactic Acid (0.5-2.0) mmol/L Calcium (8.4-10.2) mg/dL Total Bilirubin (0.0-1.0) mg/dL AST (5-37) U/L ALT (0-40) U/L Alkaline Phosphatase (39-117) U/L Total Protein (6.5-8.0) g/dL Albumin (3.5-5.0) g/dL Urine Color Yellow Urine Appearance Clear Urine pH 7.0 (5.0-9.0) Ur Specific [place] >= 1.030 H (1.005-1.025) Urine Protein >=1000 (4+) H (Neg-Trace) mg/dL Urine Glucose (UA) >=1000 H (Negative) mg/dL Urine Ketones 15 (Negative) mg/dL Urine Blood Small (1+) H (Negative) Urine Nitrite Negative (Negative) Ur Leukocyte Esterase Negative (Negative) Urine RBC 0-2 (0-2) /HPF Urine WBC 0-5 (0-5) /HPF Ur Squamous Epith Cells 0-2 (0-2) /HPF Urine Bacteria None Seen (None Seen) Hyaline Casts 6-10 (0-2) /LPF COVID-19 (CYRUS) Negative (Negative) COVID-19 Clin Com See Note Influenza Type A (DAGMAR) Negative (Negative) Influenza Type B (DAGMAR) Negative (Negative) Influenza A & B Note See Note Critical Care Time Critical Care Time Critical Care Time: Yes Total Critical Care Time: 60 Attestation: I have personally provided critical care time. Time includes review of lab data, radiology results, discussion with consultants, and monitoring for potential decompensation. Intervention performed as documented. Discharge Plan Discharge Clinical Impression: Sepsis Patient Disposition: Admitted As Inpatient
[2023-02-15 22:59] LABS: Appearance Urine Clear; Color Urine Yellow; Glucose Urine UA >=1000 mg/dL (Negative); Leukocyte Esterase Urine Negative (Negative); Nitrite Urine Negative (Negative); Specific Gravity - Urine >= 1.030 (1.005-1.025); UMIC TRIGGER UACC YES; Urine Blood Small (1+) (Negative); Urine Ketones 15 mg/dL (Negative); Urine Protein >=1000 (4+) mg/dL (Neg-Trace)
[2023-02-15] MEDS: Acetaminophen 325 MG TABLET 975 MG PO (23:03)
[2023-02-15] MEDS: vancomycin HCL 1,500 MG in 0.9 % Sodium Chloride 500 ML 333.33 MG IV (23:05)
[2023-02-15 23:08] LABS: Bacteria Urine None Seen (None Seen); RBC Urine 0-2 /HPF (0-2); Squamous Epithelial Cell Urine 0-2 /HPF (0-2); WBC Urine 0-5 /HPF (0-5)
[2023-02-15 23:16] LABS: COVID-19 Test Negative (Negative); IDNOW Serial# BCCEAD1C
[2023-02-15 23:18] LABS: IDNOW Serial# 08D9AD1C; Influenza A Negative (Negative); Influenza B2 Negative (Negative)
[2023-02-15 23:30] VITALS: BP 127/56; PULSE 122; RESP 20; TEMP 38.1; O2SAT 94
[2023-02-15 23:50] VITALS: BP 123/59; PULSE 131; RESP 18; TEMP 38.2; O2SAT 96
[2023-02-16] VITALS (18 sets, daily range): BP systolic 99–145; BP diastolic 45–89; PULSE 89–118; RESP 12–20; TEMP 37.2–37.5; O2SAT 90–99
[2023-02-16] MEDS: cefEPime HCl 1 GM in 0.9 % Sodium Chloride 50 ML IV (01:26)
--- NOTE | 2023-02-16 01:56 | P.HPHOSP_ITS ---
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 Social History Household Members: None Housing: Apartment Do you presently have visiting nurse or other home services: No Unable to assess alcohol history related to: Unknown Alcohol intake: never Patient Tobacco Use Status: Former Tobacco user Quit Date: 5 years ago Tobacco use type: Cigarette Years Smoked: 30 Smoked in Last 30 Days: Yes Second Hand Smoke Exposure: No Use of substances other than those prescribed or required for medical reasons: No Advance Directives: Yes Advance Directives on File: Yes Advance Directives Date on File: 05/01/20 service: No Current occupational status: unemployed and disabled Meds Allergies Allergy/AdvReac Type Severity Reaction Status Date / Time Penicillins Allergy Unknown UNKWN Verified 07/24/22 09:42 Active Medications: Current Medications Pharmacy Consult (Consult Rx Perform Med Rec) 1 each MISCELLANE ONCE PRN PRN Reason: Consult order Home Medications Medication Instructions Recorded Confirmed Last Taken Type levothyroxine 75 mcg tablet 75 mcg PO DAILY 06/27/20 10/28/22 07/24/22 History atorvastatin 40 mg tablet 40 mg PO DAILY 02/10/22 10/28/22 07/24/22 History metoprolol tartrate 25 mg tablet 0.5 tab PO DAILY 10/03/22 10/28/22 Unknown History pantoprazole 40 mg tablet,delayed 1 tab PO DAILY 10/03/22 10/28/22 Unknown History release sertraline 25 mg tablet 1 tab PO DAILY 10/03/22 10/28/22 Unknown History tamsulosin 0.4 mg capsule 1 cap PO DAILY 10/03/22 10/28/22 Unknown History Physical Exam Vital Signs and Narrative: Vital Signs: Last Vital Signs Temp 99.5 F 02/16/23 01:13 Pulse 118 H 02/16/23 01:13 Resp 12 02/16/23 01:13 BP 121/52 L 02/16/23 01:13 Pulse Ox 97 02/16/23 01:13 O2 Del Method Room Air 02/16/23 01:13 BMI result Body Mass Index 25.1 Results Labs 02/15/23 22:06 02/15/23 22:06 Labs: Laboratory Results - last 24 hr 02/15/23 02/15/23 02/15/23 22:06 22:06 22:06 MCV 93.8 MCH 32.7 MCHC 34.8 RDW 13.8 Plt Count 263 D MPV 9.0 L Immature Gran % (Auto) 0.7 H Neut % (Auto) 90.6 H Lymph % (Auto) 3.1 L [place] % (Auto) 4.7 Eos % (Auto) 0.5 Baso % (Auto) 0.4 Lymph # (Auto) 0.4 L [place] # (Auto) 0.6 Eos # (Auto) 0.1 Baso # (Auto) 0.1 Abs Immat Gran (auto) 0.10 H Absolute Neuts (auto) 12.3 H Absolute Nucleated RBC 0.000 Nucleated RBC % (auto) 0.0 Smear Tech's Comments VERIFIED Anion Gap 21 H Estim Creat Clear Calc 15.7 Estimated GFR 12 Random Glucose 254 H Lactic Acid 1.2 Calcium 9.8 D Total Bilirubin 0.4 AST 10 ALT 12 Alkaline Phosphatase 90 Total Protein 7.2 Albumin 3.3 L Urine Color Urine Appearance Urine pH Ur Specific [place] Urine Protein Urine Glucose (UA) Urine Ketones Urine Blood Urine Nitrite Ur Leukocyte Esterase Urine RBC Urine WBC Ur Squamous Epith Cells Urine Bacteria Hyaline Casts COVID-19 (CYRUS) COVID-19 Clin Com Influenza Type A (DAGMAR) Influenza Type B (DAGMAR) Influenza A & B Note 02/15/23 02/15/23 02/15/23 22:53 22:58 22:58 MCV MCH MCHC RDW Plt Count MPV Immature Gran % (Auto) Neut % (Auto) Lymph % (Auto) [place] % (Auto) Eos % (Auto) Baso % (Auto) Lymph # (Auto) [place] # (Auto) Eos # (Auto) Baso # (Auto) Abs Immat Gran (auto) Absolute Neuts (auto) Absolute Nucleated RBC Nucleated RBC % (auto) Smear Tech's Comments Anion Gap Estim Creat Clear Calc Estimated GFR Random Glucose Lactic Acid Calcium Total Bilirubin AST ALT Alkaline Phosphatase Total Protein Albumin Urine Color Yellow Urine Appearance Clear Urine pH 7.0 Ur Specific [place] >= 1.030 H Urine Protein >=1000 (4+) H Urine Glucose (UA) >=1000 H Urine Ketones 15 Urine Blood Small (1+) H Urine Nitrite Negative Ur Leukocyte Esterase Negative Urine RBC 0-2 Urine WBC 0-5 Ur Squamous Epith Cells 0-2 Urine Bacteria None Seen Hyaline Casts 6-10 COVID-19 (CYRUS) Negative COVID-19 Clin Com See Note Influenza Type A (DAGMAR) Negative Influenza Type B (DAGMAR) Negative Influenza A & B Note See Note Imaging Radiologist's Impressions: Impressions Chest X-Ray 02/15/23 23:12 IMPRESSION: * Pulmonary venous congestion without overt edema. * Small bilateral pleural effusions and accompanying atelectasis. Abdomen/Pelvis CT 02/16/23 00:43 IMPRESSION: * No acute findings within the abdomen or pelvis to explain the patient's symptomatology. * Pancolonic diverticulosis without evidence of diverticulitis. * Chronic loculated right pleural effusion and accompanying pleural-parenchymal scarring/round atelectasis. Assessment and Plan Time Spent With Patient Time: Total time managing care of this patient today ____ minutes. Quality VTE VTE Risk Level:: Medical - moderate - high VTE Device Contraindication: Treatment Not Indicated VTE Drug Contraindication: N/A - Med Ordered
--- NOTE | 2023-02-16 06:41 | PM.CCHP ---
History of Present Illness Date of Service: 02/16/23 Attending physician on admission: Elma Bravo Chief Complaint: fever /chills/ weakness 67-year-old with end-stage renal disease and a right-sided PermCath previously with nephrotic syndrome and he is a hypertensive on losartan but still produces urine and is on torsemide 40 mg twice daily who had dialysis yesterday but a temperature of a 103 degrees was noted which climb to 105 with a white count and left shift and patient came in significantly hypotensive and received 2.5 L of IV fluid without any shortness of breath blood pressure improved to 90 systolic but still had a marginally low mean arterial pressure and so I was called and did a bedside echo and I noted the no clearly that he has had coronary bypass grafting surgery 6 months ago and on the echo I sore a bioprosthesis in the aortic position which was done at the same time for aortic stenosis and his LV function is without segmental wall motion abnormality and borderline degree of concentric hypertrophy and an ejection fraction of 50-55% with some degree of postoperative septal paradox and a well functioning clean bioprosthesis in the aortic position with a 2 m/sec peak velocity which is normal no insufficiency no apparent vegetation he was awake and alert clinically doing much better since the fluid and was given 1 dose each of vancomycin and cefepime and blood cultures are already growing Gram-positive cocci in clusters presumably this will be Staph but my review of the chest and abdominal and pelvic CT scan showed no source for this and he had no evidence of cellulitis except for the entry point skin around the PermCath catheter which look cellulitic and therefore I believe it is catheter into sepsis and Interventional Radiology needs to remove this catheter AP and then I will place a temporary dialysis catheter to get us through the initial course of antibiotics and when deemed to be sterile will go ahead with another PermCath Review of Systems Review of Systems: Yes all other systems are reviewed and are negative [facility] Past Medical History Medical History (Updated 02/16/23 @ 10:25 by Elma Bravo MD) Acute hypokalemia Acute on chronic renal failure Anasarca associated with disorder of kidney Anasarca associated with disorder of kidney Aortic stenosis CHF (congestive heart failure), NYHA class I CKD (chronic kidney disease) stage 3, GFR 30-59 ml/min Congestive heart failure Congestive heart failure Diabetes 1.5, managed as type 2 Diverticulosis Hiatal hernia History of small bowel obstruction Hyperlipidemia Hypertension 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 If so, by whom?: No Do you feel safe in your current relationship?: No Current Relationship Is there a partner from a previous relationship who is making you feel unsafe now?: No Are you made to feel afraid or neglected: No Advance Directives: Yes Advance Directives on File: Yes Advance Directives Date on File: 05/01/20 Do you have thoughts of harming others: None Do you have a plan to hurt others: No Plan Recently lost weight without trying: No Nutrition Risks: No Nutritional Risk service: No Current occupational status: unemployed and disabled Meds Allergies Allergy/AdvReac Type Severity Reaction Status Date / Time Penicillins Allergy Unknown UNKWN Verified 07/24/22 09:42 Active Medications: Current Medications Acetaminophen (Acetaminophen 325 Mg Tablet) 650 mg PO Q6H PRN PRN Reason: Pain, Mild (Pain Scale 1-3) Heparin Sodium (Porcine) (Heparin Sodium,Porcine 5,000 Unit/Ml Vial) 5,000 unit SUBCUT Q12H ROSALIA Levothyroxine Sodium (Levothyroxine Sodium 75 Mcg Tablet) 75 mcg PO DAILY ROSALIA Melatonin (Melatonin 3 Mg Tablet) 6 mg PO BEDTIME PRN PRN Reason: Insomnia Ondansetron HCl (Ondansetron Hcl 4 Mg/2 Ml Vial) 4 mg IVPUSH Q8H PRN PRN Reason: Nausea and Vomiting Pharmacy Consult (Consult Rx Perform Med Rec) 1 each MISCELLANE ONCE PRN PRN Reason: Consult order Sodium Chloride (0.9 % Sodium Chloride Flush 3 Ml Syringe) 3 ml IVFLUSH [facility] Home Medications Medication Instructions Recorded Confirmed Last Taken Type levothyroxine 75 mcg tablet 75 mcg PO DAILY@0600 06/27/20 02/16/23 2 Days Ago History ~02/14/23 atorvastatin 40 mg tablet 40 mg PO DAILY 02/10/22 02/16/23 2 Days Ago History ~02/14/23 sertraline 25 mg tablet 1 tab PO DAILY 10/03/22 02/16/23 2 Days Ago History ~02/14/23 calcium carbonate 400 mg calcium 400 mg PO TID 02/16/23 02/16/23 2 Days Ago History (1,000 mg) chewable tablet (Ultra ~02/14/23 Strength Antacid) ergocalciferol (vitamin D2) 1,250 1,250 mcg PO FR@0900 02/16/23 02/16/23 2 Days Ago History mcg (50,000 unit) capsule ~02/14/23 losartan 50 mg tablet 50 mg PO DAILY 02/16/23 02/16/23 2 Days Ago History ~02/14/23 sevelamer carbonate 800 mg tablet 1,600 mg PO TID 02/16/23 02/16/23 2 Days Ago History ~02/14/23 sulfamethoxazole 400 1 tab PO ONCE 02/16/23 02/16/23 2 Days Ago History mg-trimethoprim 80 mg tablet ~02/14/23 torsemide 20 mg tablet 40 mg PO BID@0900,1400 02/16/23 02/16/23 2 Days Ago History ~02/14/23 Physical Exam Vital Signs: Vital Signs: Last Vital Signs Temp 98.9 F 02/16/23 05:59 Pulse 104 H 02/16/23 05:59 Resp 14 02/16/23 05:59 BP 109/61 02/16/23 05:59 Pulse Ox 99 02/16/23 05:59 O2 Del Method Room Air 02/16/23 05:59 BMI result Body Mass Index 25.1 awake alert and nonfocal neurologically bedside echo with mild concentric LVH preserved systolic function and a well-functioning aortic valve bioprosthesis and no pericardial disease lungs clear with no adventitious sounds and just a small right-sided pleural effusion possible residual of his open heart surgery abdomen is soft without organomegaly skin without breakdown Results Labs 02/15/23 22:06 02/15/23 22:06 Labs: Laboratory Results - last 24 hr 02/15/23 02/15/23 02/15/23 22:06 22:06 22:06 MCV 93.8 MCH 32.7 MCHC 34.8 RDW 13.8 Plt Count 263 D MPV 9.0 L Immature Gran % (Auto) 0.7 H Neut % (Auto) 90.6 H Lymph % (Auto) 3.1 L Warren % (Auto) 4.7 Eos % (Auto) 0.5 Baso % (Auto) 0.4 Lymph # (Auto) 0.4 L Warren # (Auto) 0.6 Eos # (Auto) 0.1 Baso # (Auto) 0.1 Abs Immat Gran (auto) 0.10 H Absolute Neuts (auto) 12.3 H Absolute Nucleated RBC 0.000 Nucleated RBC % (auto) 0.0 Smear Tech's Comments VERIFIED Anion Gap 21 H Estim Creat Clear Calc 15.7 Estimated GFR 12 Random Glucose 254 H Lactic Acid 1.2 Calcium 9.8 D Total Bilirubin 0.4 AST 10 ALT 12 Alkaline Phosphatase 90 Total Protein 7.2 Albumin 3.3 L Urine Color Urine Appearance Urine pH Ur Specific [place] Urine Protein Urine Glucose (UA) Urine Ketones Urine Blood Urine Nitrite Ur Leukocyte Esterase Urine RBC Urine WBC Ur Squamous Epith Cells Urine Bacteria Hyaline Casts COVID-19 (CYRUS) COVID-19 Clin Com Influenza Type A (DAGMAR) Influenza Type B (DAGMAR) Influenza A & B Note 02/15/23 02/15/23 02/15/23 22:53 22:58 22:58 MCV MCH MCHC RDW Plt Count MPV Immature Gran % (Auto) Neut % (Auto) Lymph % (Auto) Warren % (Auto) Eos % (Auto) Baso % (Auto) Lymph # (Auto) Warren # (Auto) Eos # (Auto) Baso # (Auto) Abs Immat Gran (auto) Absolute Neuts (auto) Absolute Nucleated RBC Nucleated RBC % (auto) Smear Tech's Comments Anion Gap Estim Creat Clear Calc Estimated GFR Random Glucose Lactic Acid Calcium Total Bilirubin AST ALT Alkaline Phosphatase Total Protein Albumin Urine Color Yellow Urine Appearance Clear Urine pH 7.0 Ur Specific [place] >= 1.030 H Urine Protein >=1000 (4+) H Urine Glucose (UA) >=1000 H Urine Ketones 15 Urine Blood Small (1+) H Urine Nitrite Negative Ur Leukocyte Esterase Negative Urine RBC 0-2 Urine WBC 0-5 Ur Squamous Epith Cells 0-2 Urine Bacteria None Seen Hyaline Casts 6-10 COVID-19 (CYRUS) Negative COVID-19 Clin Com See Note Influenza Type A (DAGMAR) Negative Influenza Type B (DAGMAR) Negative Influenza A & B Note See Note Imaging Radiologist's Impressions: Impressions Chest X-Ray 02/15/23 23:12 IMPRESSION: * Pulmonary venous congestion without overt edema. * Small bilateral pleural effusions and accompanying atelectasis. Abdomen/Pelvis CT 02/16/23 00:43 IMPRESSION: * No acute findings within the abdomen or pelvis to explain the patient's symptomatology. * Pancolonic diverticulosis without evidence of diverticulitis. * Chronic loculated right pleural effusion and accompanying pleural-parenchymal scarring/round atelectasis. Chest CT 02/16/23 05:45 IMPRESSION: * No acute pneumonic process. * Chronic loculated right pleural effusion with accompanying pleural thickening and pleuroparenchymal scarring/round atelectasis in the dependent right lower lobe. * Scattered calcified granulomata throughout both lungs compatible with prior granulomatous disease. * Stable 3 mm nodule in the right upper lobe. Per the 2017 revised Fleischner Society guidelines, no routine follow up is necessarily required in low-risk patients, and consideration of [address] is recommended for patients at high-risk for the development of pulmonary neoplasm. Assessment and Plan (1) Line sepsis associated with dialysis catheter: Status: Acute (2) ESRD on dialysis: Status: Acute (3) Acidosis, metabolic: Status: Acute (4) Heart failure with preserved ejection fraction: Status: Acute (5) Aortic stenosis: Status: Acute (6) Renal failure, chronic: Status: Acute (7) Hypercalcemia: Status: Acute (8) Nephrotic syndrome: Status: Acute (9) Anemia: Status: Acute (10) Acute on chronic kidney failure: Status: Acute (11) Hypertension: Status: Acute (12) H/O aortic valve replacement: Status: Acute Plan will continue with vancomycin based on dialysis schedule and have that an infected dialysis catheter removed by Interventional Radiology as are source control and I will place a temporary dialysis catheter in and treat with vancomycin until sterile and then finally replace that with a PermCath Time Spent With Patient Time: Total time managing care of this patient today _45___ minutes.
[2023-02-16] MEDS: Levothyroxine Sodium 75 MCG TABLET PO (07:30)
[2023-02-16] MEDS: 0.9 % Sodium Chloride Flush 3 ML SYRINGE IVFLUSH ×2 (07:31→16:17)
[2023-02-16 08:35] LABS: MANUAL DIFF FLAG NO
[2023-02-16 08:41] LABS: Basophils Absolute Auto 0.1 X10*3/uL (0.0-0.2); Basophils Percent Auto 0.4 % (0-2); Eosinophils Absolute Auto 0.1 X10*3/uL (0.0-0.4); Eosinophils Percent Auto 0.4 % (0-4); Hematocrit 29.2 % (42.0-52.0); Hemoglobin 9.7 g/dl (14.0-18.0); Imm Gran Abs Auto 0.09 X10*3/uL (0.00-0.03); Imm Gran Pct Auto 0.6 % (0.0-0.4); Lymphocytes Absolute Auto 0.7 X10*3/uL (1.2-4.9); Lymphocytes Percent Auto 5.2 % (20-40); Mean Corpuscular HGB Conc 33.2 g/dl (31.0-36.0); Mean Corpuscular Hemoglobin 31.8 pg (27.0-33.0); Mean Corpuscular Volume 95.7 fL (80.0-98.0); Mean Platelet Volume 9.4 fL (9.4-12.4); Monocytes Absolute Auto 1.1 X10*3/uL (0.1-1.2); Monocytes Percent Auto 7.5 % (2-11); Neutrophils Absolute Auto 12.1 x10*3/uL (2.0-8.3); Neutrophils Percent Auto 85.9 % (45-73); Platelet Count 228 X10*3/uL (160-400); Red Blood Count 3.05 X10*6/uL (4.60-5.80); White Blood Count 14.1 X10*3/uL (4.8-10.8)
[2023-02-16 08:51] LABS: Anion Gap 18 (12-20); Blood Urea Nitrogen 43 mg/dL (9-16); Carbon Dioxide 18 mmol/L (22-29); Chloride 103 mmol/L (96-108); Creatinine Clr Calc Pharmacy 12.9; Estimated Glomerular Filt Rate 9; Glucose Random 322 mg/dL (60-115); Potassium 5.2 mmol/L (3.3-5.1); Sodium 134 mmol/L (135-145)
[2023-02-16 08:56] LABS: Calcium 8.8 mg/dL (8.4-10.2)
--- NOTE | 2023-02-16 09:11 | PHA.MEDREC ---
Pharmacy Consult ? Medication Reconciliation Pharmacy has completed the medication reconciliation. Spoke to patient to confirm meds.
[2023-02-16] MEDS: Heparin Sodium,Porcine 5,000 UNIT/ML VIAL 5000 UNIT SUBCUT ×2 (10:07→20:47)
--- NOTE | 2023-02-16 10:46 | P.CONNP_ITS ---
History of Present Illness Reason for Consult Consult date: 02/17/23 Chief Complaint Chief complaint: sepsis History of Present Illness Narrative: ?67-year-old with end-stage renal disease and a right-sided PermCath previously with nephrotic syndrome and he is a hypertensive on losartan but still produces urine and is on torsemide 40 mg twice daily who had dialysis yesterday but a temperature of a 103 degrees was noted which climb to 105 with a white count and left shift and patient came in significantly hypotensive and received 2.5 L of IV fluid without any shortness of breath blood pressure improved to 90 systolic but still had a marginally low mean arterial pressure and so I was called and did a bedside echo and I noted the no clearly that he has had coronary bypass grafting surgery 6 months ago and on the echo I sore a bioprosthesis in the aortic position which was done at the same time for aortic stenosis and his LV function is without segmental wall motion abnormality and borderline degree of concentric hypertrophy and an ejection fraction of 50-55% with some degree of postoperative septal paradox and a well functioning clean bioprosthesis in the aortic position with a 2 m/sec peak velocity Had HD yesterday Review of Systems Constitutional: Reports as per HPI [facility] Past Medical History Medical History (Updated 02/17/23 @ 10:37 by CHRISTIAN Samuel) Acute hypokalemia Acute on chronic renal failure Anasarca associated with disorder of kidney Anasarca associated with disorder of kidney Aortic stenosis CHF (congestive heart failure), NYHA class I CKD (chronic kidney disease) stage 3, GFR 30-59 ml/min Congestive heart failure Congestive heart failure Diabetes 1.5, managed as type 2 Diverticulosis Hiatal hernia History of small bowel obstruction Hyperlipidemia Hypertension 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 Surgical History Surgical History (Updated 02/16/23 @ 10:25 by Elma Bravo MD) H/O aortic valve replacement Social History Social History Household Members: None Housing: Apartment Do you presently have visiting nurse or other home services: Yes ([employer]UD[employer] 2x/week) Unable to assess alcohol history related to: Unknown Alcohol intake: never Patient Tobacco Use Status: Former Tobacco user Quit Date: 5 years ago Tobacco use type: Cigarette Years Smoked: 30 Smoked in Last 30 Days: Yes Second Hand Smoke Exposure: No Use of substances other than those prescribed or required for medical reasons: No Currently Displaying Signs/Symptoms of Drug Intoxication Withdrawal: No Have you been hit, kicked, punched, or otherwise hurt by someone within the past year? If so, by whom?: No Do you feel safe in your current relationship?: No Current Relationship Is there a partner from a previous relationship who is making you feel unsafe now?: No Are you made to feel afraid or neglected: No Advance Directives: Yes Advance Directives on File: Yes Advance Directives Date on File: 05/01/20 Do you have thoughts of harming others: None Do you have a plan to hurt others: No Plan Recently lost weight without trying: No Nutrition Risks: No Nutritional Risk service: No Current occupational status: unemployed and disabled Meds Allergies Allergy/AdvReac Type Severity Reaction Status Date / Time Penicillins Allergy Unknown UNKWN Verified 07/24/22 09:42 Active Medications: Current Medications Acetaminophen (Acetaminophen 325 Mg Tablet) 650 mg PO Q6H PRN PRN Reason: Pain, Mild (Pain Scale 1-3) Heparin Sodium (Porcine) (Heparin Sodium,Porcine 5,000 Unit/Ml Vial) 5,000 unit SUBCUT Q12H COUNTS INCLUDE 234 BEDS AT THE [facility] Last Admin: 02/16/23 10:07 Dose: 5,000 unit Levothyroxine Sodium (Levothyroxine Sodium 75 Mcg Tablet) 75 mcg PO DAILY@0600 COUNTS INCLUDE 234 BEDS AT THE [facility] Last Admin: 02/16/23 07:30 Dose: 75 mcg Melatonin (Melatonin 3 Mg Tablet) 6 mg PO BEDTIME PRN PRN Reason: Insomnia Ondansetron HCl (Ondansetron Hcl 4 Mg/2 Ml Vial) 4 mg IVPUSH Q8H PRN PRN Reason: Nausea and Vomiting Pharmacy Consult (Consult Rx Perform Med Rec) 1 each MISCELLANE ONCE PRN PRN Reason: Consult order Sodium Chloride (0.9 % Sodium Chloride Flush 3 Ml Syringe) 3 ml IVFLUSH QSHIFT COUNTS INCLUDE 234 BEDS AT THE [facility] Last Admin: 02/16/23 07:31 Dose: 3 ml Home Medications Medication Instructions Recorded Confirmed Last Taken Type levothyroxine 75 mcg tablet 75 mcg PO DAILY@0600 06/27/20 02/16/23 2 Days Ago History ~02/14/23 atorvastatin 40 mg tablet 40 mg PO DAILY 02/10/22 02/16/23 2 Days Ago History ~02/14/23 sertraline 25 mg tablet 1 tab PO DAILY 10/03/22 02/16/23 2 Days Ago History ~02/14/23 calcium carbonate 400 mg calcium 400 mg PO TID 02/16/23 02/16/23 2 Days Ago Hist ory (1,000 mg) chewable tablet (Ultra ~02/14/23 Strength Antacid) ergocalciferol (vitamin D2) 1,250 1,250 mcg PO FR@0900 02/16/23 02/16/23 2 Days Ago History mcg (50,000 unit) capsule ~02/14/23 losartan 50 mg tablet 50 mg PO DAILY 02/16/23 02/16/23 2 Days Ago History ~02/14/23 sevelamer carbonate 800 mg tablet 1,600 mg PO TID 02/16/23 02/16/23 2 Days Ago History ~02/14/23 sulfamethoxazole 400 1 tab PO ONCE 02/16/23 02/16/23 2 Days Ago History mg-trimethoprim 80 mg tablet ~02/14/23 torsemide 20 mg tablet 40 mg PO BID@0900,1400 02/16/23 02/16/23 2 Days Ago History ~02/14/23 Physical Exam Vital Signs: Last Vital Signs Temp 98.9 F 02/16/23 05:59 Pulse 95 02/16/23 10:00 Resp 20 02/16/23 10:00 BP 135/67 02/16/23 10:00 Pulse Ox 99 02/16/23 10:00 O2 Del Method Room Air 02/16/23 10:00 BMI result Body Mass Index 25.1 Comfortable Exit site appears infected Neck is supple Lung: Air entry equal Heart: S1,S2, normal. No rub Abd: Soft. BS + NS : Alert.No asterexis Ext: 1+ edema Results Lab Results 02/16/23 08:31 02/16/23 08:31 Lab results: Chemistry 02/15/23 02/16/23 22:06 08:31 Sodium 136 134 L Potassium 4.8 5.2 H Carbon Dioxide 18 L 18 L BUN 34 H 43 H Creatinine 5.01 H* 6.07 H* Calcium 9.8 D 8.8 D Hematology 02/15/23 02/16/23 22:06 08:31 WBC 13.6 H 14.1 H Hgb 11.5 L 9.7 L Plt Count 263 D 228 Urinalysis 02/15/23 22:53 Urine Color Yellow Urine Appearance Clear Urine pH 7.0 Ur Specific [place] >= 1.030 H Urine Protein >=1000 (4+) H Urine Glucose (UA) >=1000 H Urine Ketones 15 Urine Blood Small (1+) H Urine Nitrite Negative Ur Leukocyte Esterase Negative Urine RBC 0-2 Urine WBC 0-5 Ur Squamous Epith Cells 0-2 Hyaline Casts 6-10 Assessment and Plan (1) Sepsis: Status: Acute (2) ESRD on dialysis: Status: Acute Plan 67-year-old man with ESRD and sepsis. PermCath might be the possible source for sepsis. The exit site appears infected. Recommendation Remove PermCath. Catheter holiday for the next few days. Check blood cultures. If he needs dialysis in the interim we can insert a temporary dialysis catheter. PermCath can be reinserted once his blood cultures are negative. We will follow along with the team. Thank you Time Spent With Patient Time: Total time managing care of this patient today ____ minutes. Procedures Date of Service Date of Service: 02/17/23
--- NOTE | 2023-02-16 13:09 | MHC.CM.PN ---
Met with pt to discuss d/c planning needs: pt resides alone in an apt and attends HD at [facility] in [place] M, W, F via center transportation. Pt has [employer] services for homemaking/errands but states he is otherwise independent with ADL's. HCP copy requested: Pt requesting assistance with transportation to home: CM to arrange when medically stable. IMM in chart, PCP Dr. Tapia.
[2023-02-16 16:10] LABS: Glucose, Whole Blood 191 mg/dL (60-115)
[2023-02-16] MEDS: ondansetron HCL 4 MG/2 ML VIAL IVPUSH (16:16)
[2023-02-16] MEDS: Midazolam HCl/PF 2 MG/2 ML VIAL IVPUSH (19:57)
--- NOTE | 2023-02-16 20:25 | P.PCNCC_ITS ---
Procedures Date of Service Date of Service: 02/16/23 Central Line Placement Left IJ: Central Line Comments: The left neck was widely prepped and draped in full sterile fashion.? Under US? guidance, the left IJ vein was cannulated on the 1st pass of the 18 g thin wall needle, with return of dark, nonpulsatile blood. ? The wire was threaded without incident.? The 13 cm x 12 Portuguese dialysis cathether with pigtail was advanced into the vein up to the hub via the Seldinger technique without incident.? There was good blood return x3.? The catheter was sutured x2 and a Biopatch and dry sterile dressing were applied. Postop chest x-ray showed the line in good position with no pneumothorax.? The patient tolerated the procedure well with no complications. Consent for Procedure: Elective - informed consent obtained Time out performed: Yes Sterile Technique Used: Yes Patient placed on monitor/pulse ox: Yes prep: mask, gown and gloves Central line prep: Chlorhexidine scrub and sterile drapes applied Local anesthesia used: lidocaine 1% Amount of anesthesia used (ml): 4 Ultrasound used for placement: Yes Post procedure: sutured in place, good blood return, all ports aspirated, flushed, capped and sterile dressing applied Post procedure x-ray: tip of catheter in good position and no pneumothorax seen Patient tolerated procedure: well and no complications Complications: none
[2023-02-16 20:42] LABS: Glucose, Whole Blood 169 mg/dL (60-115)
[2023-02-17] VITALS (10 sets, daily range): BP systolic 100–131; BP diastolic 45–63; PULSE 79–90; RESP 11–20; TEMP 36.4–37.3; O2SAT 90–98; BMI 35.3
--- NOTE | 2023-02-17 04:00 | PC.NURSE ---
Pt transferred from ICU to [id number] accompanied by zinc furnace charger via wheelchair. Pt A&OX3, on RA. Pt 1 assist contact guard for transfer. Stand and pivot. He is weak and unsteady. Pt is high fall risk. VSS, he has hemodialysis cath L[place]IJ[place] [facility] [place] #20 [place] R-hand. Safety prec maintained. Call light within reach.
[2023-02-17] MEDS: Levothyroxine Sodium 75 MCG TABLET PO (04:42)
[2023-02-17 07:34] LABS: Glucose, Whole Blood 119 mg/dL (60-115)
[2023-02-17] MEDS: Heparin Sodium,Porcine 5,000 UNIT/ML VIAL 5000 UNIT SUBCUT ×2 (08:01→21:51)
[2023-02-17] MEDS: 0.9 % Sodium Chloride Flush 3 ML SYRINGE IVFLUSH ×3 (08:02→23:36)
[2023-02-17 08:04] LABS: MANUAL DIFF FLAG NO
[2023-02-17 08:12] LABS: Basophils Percent Auto 0.5 % (0-2); Eosinophils Absolute Auto 0.3 X10*3/uL (0.0-0.4); Hematocrit 28.6 % (42.0-52.0); Hemoglobin 9.5 g/dl (14.0-18.0); Imm Gran Abs Auto 0.04 X10*3/uL (0.00-0.03); Imm Gran Pct Auto 0.5 % (0.0-0.4); Lymphocytes Percent Auto 11.9 % (20-40); Mean Corpuscular HGB Conc 33.2 g/dl (31.0-36.0); Mean Corpuscular Volume 96.3 fL (80.0-98.0); Mean Platelet Volume 9.6 fL (9.4-12.4); Monocytes Percent Auto 11.6 % (2-11); Neutrophils Percent Auto 71.5 % (45-73); Platelet Count 215 X10*3/uL (160-400); Red Blood Count 2.97 X10*6/uL (4.60-5.80); Red Cell Distribution Width 13.9 % (11.0-16.0); White Blood Count 8.3 X10*3/uL (4.8-10.8)
[2023-02-17 08:23] LABS: Albumin Level 2.7 g/dL (3.5-5.0); Magnesium 2.2 mg/dL (1.6-2.6)
[2023-02-17 08:24] LABS: Anion Gap 19 (12-20); Blood Urea Nitrogen 51 mg/dL (9-16); Calcium 8.5 mg/dL (8.4-10.2); Carbon Dioxide 18 mmol/L (22-29); Chloride 106 mmol/L (96-108); Estimated Glomerular Filt Rate 8; Glucose Random 121 mg/dL (60-115); Potassium 4.3 mmol/L (3.3-5.1); Sodium 139 mmol/L (135-145)
--- NOTE | 2023-02-17 09:29 | PM.IMHP ---
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 Surgical History (Updated 02/16/23 @ 10:25 by Elma Bravo MD) H/O aortic valve replacement Social History Household Members: None Housing: Apartment Do you presently have visiting nurse or other home services: Yes ([employer] 2x/week) Unable to assess alcohol history related to: Unknown Alcohol intake: never Patient Tobacco Use Status: Former Tobacco user Quit Date: 5 years ago Tobacco use type: Cigarette Years Smoked: 30 Smoked in Last 30 Days: Yes Second Hand Smoke Exposure: No Use of substances other than those prescribed or required for medical reasons: No Currently Displaying Signs/Symptoms of Drug Intoxication Withdrawal: No Have you been hit, kicked, punched, or otherwise hurt by someone within the past year? If so, by whom?: No Do you feel safe in your current relationship?: No Current Relationship Is there a partner from a previous relationship who is making you feel unsafe now?: No Are you made to feel afraid or neglected: No Advance Directives: Yes Advance Directives on File: Yes Advance Directives Date on File: 05/01/20 Do you have thoughts of harming others: None Do you have a plan to hurt others: No Plan Recently lost weight without trying: No Nutrition Risks: No Nutritional Risk service: No Current occupational status: unemployed and disabled Meds Allergies Allergy/AdvReac Type Severity Reaction Status Date / Time Penicillins Allergy Unknown UNKWN Verified 07/24/22 09:42 Active Medications: Current Medications Acetaminophen (Acetaminophen 325 Mg Tablet) 650 mg PO Q6H PRN PRN Reason: Pain, Mild (Pain Scale 1-3) Heparin Sodium (Porcine) (Heparin Sodium,Porcine 5,000 Unit/Ml Vial) 5,000 unit SUBCUT Q12H [facility] Last Admin: 02/17/23 08:01 Dose: 5,000 unit Vancomycin HCl 500 mg/ Sodium (Chloride) 110 mls @ 110 mls/hr IV [id number]@2000 [facility] Levothyroxine Sodium (Levothyroxine Sodium 75 Mcg Tablet) 75 mcg PO DAILY@0600 [facility] Last Admin: 02/17/23 04:42 Dose: 75 mcg Melatonin (Melatonin 3 Mg Tablet) 6 mg PO BEDTIME PRN PRN Reason: Insomnia Ondansetron HCl (Ondansetron Hcl 4 Mg/2 Ml Vial) 4 mg IVPUSH Q8H PRN PRN Reason: Nausea and Vomiting Last Admin: 02/16/23 16:16 Dose: 4 mg Pharmacy Consult (Consult Rx Perform Med Rec) 1 each MISCELLANE ONCE PRN PRN Reason: Consult order Pharmacy Consult (Consult Rx Vancomycin Dosing) 1 each MISCELLANE DAILY PRN PRN Reason: Consult order Sodium Chloride (0.9 % Sodium Chloride Flush 3 Ml Syringe) 3 ml IVFLUSH QSHIFT [facility] Last Admin: 02/17/23 08:02 Dose: 3 ml Home Medications Medication Instructions Recorded Confirmed Last Taken Type levothyroxine 75 mcg tablet 75 mcg PO DAILY@0600 06/27/20 02/16/23 2 Days Ago History ~02/14/23 atorvastatin 40 mg tablet 40 mg PO DAILY 02/10/22 02/16/23 2 Days Ago History ~02/14/23 sertraline 25 mg tablet 1 tab PO DAILY 10/03/22 02/16/23 2 Days Ago History ~02/14/23 calcium carbonate 400 mg calcium 400 mg PO TID 02/16/23 02/16/23 2 Days Ago History (1,000 mg) chewable tablet (Ultra ~02/14/23 Strength Antacid) ergocalciferol (vitamin D2) 1,250 1,250 mcg PO FR@0902/16/23 02/16/23 2 Days Ago History mcg (50,000 unit) capsule ~02/14/23 losartan 50 mg tablet 50 mg PO DAILY 02/16/23 02/16/23 2 Days Ago History ~02/14/23 sevelamer carbonate 800 mg tablet 1,600 mg PO TID 02/16/23 02/16/23 2 Days Ago History ~02/14/23 sulfamethoxazole 400 1 tab PO ONCE 02/16/23 02/16/23 2 Days Ago History mg-trimethoprim 80 mg tablet ~02/14/23 torsemide 20 mg tablet 40 mg PO BID@0900,1400 02/16/23 02/16/23 2 Days Ago History ~02/14/23 Physical Exam Vital Signs and Narrative: Vital Signs: Last Vital Signs Temp 98.7 F 02/17/23 07:41 Pulse 79 02/17/23 07:41 Resp 18 02/17/23 07:41 BP 113/57 L 02/17/23 07:41 Pulse Ox 96 02/17/23 07:41 O2 Del Method Nasal Cannula 02/17/23 07:41 O2 Flow Rate 1.0 02/17/23 07:41 BMI result Body Mass Index 35.3 Results Labs 02/17/23 07:36 02/17/23 07:36 Labs: Laboratory Results - last 24 hr 02/16/23 02/16/23 02/17/23 16:06 20:39 07:19 MCV MCH MCHC RDW Plt Count MPV Immature Gran % (Auto) Neut % (Auto) Lymph % (Auto) [place] % (Auto) Eos % (Auto) Baso % (Auto) Lymph # (Auto) [place] # (Auto) Eos # (Auto) Baso # (Auto) Abs Immat Gran (auto) Absolute Neuts (auto) Absolute Nucleated RBC Nucleated RBC % (auto) Anion Gap Estim Creat Clear Calc Estimated GFR POC Glucose 191 H 169 H 119 H Random Glucose Calcium Phosphorus Magnesium Albumin 02/17/23 02/17/23 02/17/23 07:36 07:36 07:36 MCV 96.3 MCH 32.0 MCHC 33.2 RDW 13.9 Plt Count 215 MPV 9.6 Immature Gran % (Auto) 0.5 H Neut % (Auto) 71.5 Lymph % (Auto) 11.[address] [place] % (Auto) 11.6 H Eos % (Auto) 4.0 Baso % (Auto) 0.5 Lymph # (Auto) 1.[address] [place] # (Auto) 1.0 Eos # (Auto) 0.3 Baso # (Auto) 0.0 Abs Immat Gran (auto) 0.04 H Absolute Neuts (auto) 6.0 Absolute Nucleated RBC 0.000 Nucleated RBC % (auto) 0.0 Anion Gap 19 Estim Creat Clear Calc 13.0 Estimated GFR 8 POC Glucose Random Glucose 121 H Calcium 8.5 Phosphorus 9.0 H Magnesium 2.2 Albumin 2.7 L Imaging Radiologist's Impressions: Impressions Chest X-Ray 02/16/23 20:35 IMPRESSION: 1. Left IJ CVC tip projects at the level of the left brachiocephalic junction, not crossing the midline, recommend clinical correlation with appropriate functioning and if indicated repositioning. 2. No pneumothorax. 3. Stable asymmetric haziness of the right mid and lower lung in keeping with chronic loculated pleural effusion with associated atelectasis as visualized on CT from earlier today. Assessment and Plan Time Spent With Patient Time: Total time managing care of this patient today ____ minutes. Quality VTE VTE Risk Level:: Medical - moderate - high VTE Device Contraindication: N/A - Device Ordered VTE Drug Contraindication: N/A - Med Ordered
[2023-02-17 10:00] LABS: Venous Blood Gas Refer to POC result
[2023-02-17 10:02] LABS: VBG Base Excess -2.7 mmol/L; VBG HCO3 21 mmol/L (22-26); VBG pCO2 34 mmHg; VBG pH 7.39 (7.32-7.43); VBG pO2 47 mmHg
--- NOTE | 2023-02-17 10:17 | HO.PM.IMPN ---
Subjective Subjective Date of Service: 02/17/23 Interval History: Seen in follow up for sepsis, infected line site, GPC bacteremia x2 Interval history: No complaints, improvement in redness of line site. Has temp dialysis catheter in place Review of Systems Review of Systems: Yes all other systems are reviewed and are negative Physical Exam Vital Signs: Vital Signs: Last Vital Signs Temp 98.7 F 02/17/23 07:41 Pulse 79 02/17/23 07:41 Resp 18 02/17/23 07:41 BP 113/57 L 02/17/23 07:41 Pulse Ox 96 02/17/23 07:41 O2 Del Method Nasal Cannula 02/17/23 07:41 O2 Flow Rate 1.0 02/17/23 07:41 BMI result Body Mass Index 35.3 Constitutional - Awake and Alert, No apparent distress Eyes - PERRLA, EOMI Neck - left IJ catheter in place Cardiovascular - S1S2, RRR, 1+edema ble Respiratory - Normal lung expansion, Normal respiratory effort, No respiratory distress, CTA bilaterally Gastrointestinal - NT / ND; +BS; No rebound or guarding Extremities - no calf tenderness bilaterally, no swelling Skin - Warm/Dry Neurological - Alert & oriented x3 Psychological - Appropriate affect Objective Data Active Medications Acetaminophen (Acetaminophen 325 Mg Tablet) 650 mg PO Q6H PRN PRN Reason: Pain, Mild (Pain Scale 1-3) Heparin Sodium (Porcine) (Heparin Sodium,Porcine 5,000 Unit/Ml Vial) 5,000 unit SUBCUT Q12H [facility] Last Admin: 02/17/23 08:01 Dose: 5,000 unit Documented By: EDELMIRA Vancomycin HCl 500 mg/ Sodium (Chloride) 110 mls @ 110 mls/hr IV [id number] [facility] Levothyroxine Sodium (Levothyroxine Sodium 75 Mcg Tablet) 75 mcg PO DAILY@0600 [facility] Last Admin: 02/17/23 04:42 Dose: 75 mcg Documented By: RENÉE Melatonin (Melatonin 3 Mg Tablet) 6 mg PO BEDTIME PRN PRN Reason: Insomnia Ondansetron HCl (Ondansetron Hcl 4 Mg/2 Ml Vial) 4 mg IVPUSH Q8H PRN PRN Reason: Nausea and Vomiting Last Admin: 02/16/23 16:16 Dose: 4 mg Documented By: MADELINE Pharmacy Consult (Consult Rx Perform Med Rec) 1 each MISCELLANE ONCE PRN PRN Reason: Consult order Pharmacy Consult (Consult Rx Vancomycin Dosing) 1 each MISCELLANE DAILY PRN PRN Reason: Consult order Sodium Chloride (0.9 % Sodium Chloride Flush 3 Ml Syringe) 3 ml IVFLUSH QSHIFT [facility] Last Admin: 02/17/23 08:02 Dose: 3 ml Documented By: EDELMIRA Labs 02/17/23 07:36 02/17/23 07:36 Labs: Laboratory Results - last 24 hr 02/16/23 02/16/23 02/17/23 16:06 20:39 07:19 MCV MCH MCHC RDW Plt Count MPV Immature Gran % (Auto) Neut % (Auto) Lymph % (Auto) [place] % (Auto) Eos % (Auto) Baso % (Auto) Lymph # (Auto) [place] # (Auto) Eos # (Auto) Baso # (Auto) Abs Immat Gran (auto) Absolute Neuts (auto) Absolute Nucleated RBC Nucleated RBC % (auto) VBG pH VBG pCO2 VBG pO2 VBG HCO3 VBG O2 Saturation VBG Base Excess Anion Gap Estim Creat Clear Calc Estimated GFR POC Glucose 191 H 169 H 119 H Random Glucose Calcium Phosphorus Magnesium Albumin 02/17/23 02/17/23 02/17/23 07:36 07:36 07:36 MCV 96.3 MCH 32.0 MCHC 33.2 RDW 13.9 Plt Count 215 MPV 9.6 Immature Gran % (Auto) 0.5 H Neut % (Auto) 71.5 Lymph % (Auto) 11.9 L [place] % (Auto) 11.6 H Eos % (Auto) 4.0 Baso % (Auto) 0.5 Lymph # (Auto) 1.0 L [place] # (Auto) 1.0 Eos # (Auto) 0.3 Baso # (Auto) 0.0 Abs Immat Gran (auto) 0.04 H Absolute Neuts (auto) 6.0 Absolute Nucleated RBC 0.000 Nucleated RBC % (auto) 0.0 VBG pH VBG pCO2 VBG pO2 VBG HCO3 VBG O2 Saturation VBG Base Excess Anion Gap 19 Estim Creat Clear Calc 13.0 Estimated GFR 8 POC Glucose Random Glucose 121 H Calcium 8.5 Phosphorus 9.0 H Magnesium 2.2 Albumin 2.7 L 02/17/23 09:54 MCV MCH MCHC RDW Plt Count MPV Immature Gran % (Auto) Neut % (Auto) Lymph % (Auto) [place] % (Auto) Eos % (Auto) Baso % (Auto) Lymph # (Auto) [place] # (Auto) Eos # (Auto) Baso # (Auto) Abs Immat Gran (auto) Absolute Neuts (auto) Absolute Nucleated RBC Nucleated RBC % (auto) VBG pH 7.39 VBG pCO2 34 VBG pO2 47 VBG HCO3 21 L VBG O2 Saturation 74.0 VBG Base Excess -2.7 Anion Gap Estim Creat Clear Calc Estimated GFR POC Glucose Random Glucose Calcium Phosphorus Magnesium Albumin Microbiology Microbiology Results: Microbiology 02/15/23 22:06 Blood Culture - Preliminary Blood - Venous Staphylococcus aureus 02/15/23 22:06 Blood Culture - Preliminary Blood - Venous Staphylococcus aureus Assessment and Plan (1) Line sepsis associated with dialysis catheter: Status: Acute (2) Sepsis: Status: Acute (3) Staphylococcus aureus bacteremia: Status: Acute Plan 67 year old male with history bioprosthetic aortic valve replacement, CAD s/p CABG, h/o nephrotic syndrome with ESRD on dialysis MWF, hld, htn, hypothyroidism, HFpEF, and mood disorder admitted for line sepsis at [facility] with admission to ICU on 02/16 and stepdown to hospitalist service on 02/17 following placement of temporary IJ central catheter. He is now with positive blood cultures x 2. #Line sepsis at [facility] -permcath removed -erythema improved. WBC normalized, VSS afebrile -Continue vanco and cefepime -Follow CBC, BC #Staph aureus bacteremia -preliminary cultures x 2 positive for staph aureus, sensitivies pending -Continue vanco -Echo ordered -ID consult placed -Repeat cultures ordered #ESRD on dialysis due to nephrotic syndrome- non-oliguric -permacath removed as above, temp catheter placed in left IJ in ICU -Renal function baseline, lytes normal -Continue dialysis MWF -Nephrology consult #Chronic normocytic anemia- likely r/t chronic disease -H/H stable, above transfusion threshold -monitor cbc #HTN -bps soft, hold losartan for now #Hypothyroidism -continue synthroid #CAD/HLD -no chest pain -continue statin #HFpEF -euvolumeic, not or diuretics DVT prophylaxis- heparin Full code Pt requires ongoing inpt stay for management of line sepsis at permacath site now with rajat aureus bacteremia requiring IV abx, repeat blood cultures, echo to assess for endocarditis and expert consultation and will likely require PICC line placement pending negative BC for rn long term care abx. Time Spent With Patient Time: Total time managing care of this patient today ____ minutes. Quality Stroke Does the patient have a stroke diagnosis?: No VTE Prior VTE?: No VTE Risk Level:: Medical - moderate - high VTE Device Contraindication: N/A - Device Ordered VTE Drug Contraindication: N/A - Med Ordered
--- NOTE | 2023-02-17 11:11 | PM.PNNEP ---
Subjective Subjective Date of Service: 02/18/23 Interval history: Events noted Permcath removed. Has a temporary catheter in left IJ Physical Exam Vital Signs: Vital Signs: Last Vital Signs Temp 98.7 F 02/17/23 07:41 Pulse 79 02/17/23 07:41 Resp 18 02/17/23 07:41 BP 113/57 L 02/17/23 07:41 Pulse Ox 96 02/17/23 07:41 O2 Del Method Nasal Cannula 02/17/23 07:41 O2 Flow Rate 1.0 02/17/23 07:41 BMI result Body Mass Index 35.3 Const: General: comfortable and awake Orientation/consciousness: patient oriented x3 Eyes: Conjunctivae: conjunctivae normal Resp: Auscultation: clear to auscultation bilaterally GI: Palpation (GI): Soft to palpation and nontender Neuro: General: patient oriented x3 Objective Data Labs 02/17/23 07:36 02/17/23 07:36 Labs: Laboratory Results - last 24 hr 02/16/23 02/16/23 02/17/23 16:06 20:39 07:19 WBC RBC Hgb Hct MCV MCH MCHC RDW Plt Count MPV Immature Gran % (Auto) Neut % (Auto) Lymph % (Auto) [place] % (Auto) Eos % (Auto) Baso % (Auto) Lymph # (Auto) [place] # (Auto) Eos # (Auto) Baso # (Auto) Abs Immat Gran (auto) Absolute Neuts (auto) Absolute Nucleated RBC Nucleated RBC % (auto) VBG pH VBG pCO2 VBG pO2 VBG HCO3 VBG O2 Saturation VBG Base Excess Sodium Potassium Chloride Carbon Dioxide Anion Gap BUN Creatinine Estim Creat Clear Calc Estimated GFR POC Glucose 191 H 169 H 119 H Random Glucose Calcium Phosphorus Magnesium Albumin 02/17/23 02/17/23 02/17/23 07:36 07:36 07:36 WBC 8.3 RBC 2.97 L Hgb 9.5 L Hct 28.6 L MCV 96.3 MCH 32.0 MCHC 33.2 RDW 13.9 Plt Count 215 MPV 9.6 Immature Gran % (Auto) 0.5 H Neut % (Auto) 71.5 Lymph % (Auto) 11.9 L [place] % (Auto) 11.6 H Eos % (Auto) 4.0 Baso % (Auto) 0.5 Lymph # (Auto) 1.0 L [place] # (Auto) 1.0 Eos # (Auto) 0.3 Baso # (Auto) 0.0 Abs Immat Gran (auto) 0.04 H Absolute Neuts (auto) 6.0 Absolute Nucleated RBC 0.000 Nucleated RBC % (auto) 0.0 VBG pH VBG pCO2 VBG pO2 VBG HCO3 VBG O2 Saturation VBG Base Excess Sodium 139 Potassium 4.3 Chloride 106 Carbon Dioxide 18 L Anion Gap 19 BUN 51 H Creatinine 7.27 H* Estim Creat Clear Calc 13.0 Estimated GFR 8 POC Glucose Random Glucose 121 H Calcium 8.5 Phosphorus 9.0 H Magnesium 2.2 Albumin 2.7 L 02/17/23 09:54 WBC RBC Hgb Hct MCV MCH MCHC RDW Plt Count MPV Immature Gran % (Auto) Neut % (Auto) Lymph % (Auto) [place] % (Auto) Eos % (Auto) Baso % (Auto) Lymph # (Auto) [place] # (Auto) Eos # (Auto) Baso # (Auto) Abs Immat Gran (auto) Absolute Neuts (auto) Absolute Nucleated RBC Nucleated RBC % (auto) VBG pH 7.39 VBG pCO2 34 VBG pO2 47 VBG HCO3 21 L VBG O2 Saturation 74.0 VBG Base Excess -2.7 Sodium Potassium Chloride Carbon Dioxide Anion Gap BUN Creatinine Estim Creat Clear Calc Estimated GFR POC Glucose Random Glucose Calcium Phosphorus Magnesium Albumin Microbiology Microbiology Results: Microbiology 02/15/23 22:06 Blood - Venous Blood Culture - Preliminary Staphylococcus aureus 02/15/23 22:06 Blood - Venous Blood Culture - Preliminary Staphylococcus aureus Procedures Date of Service Date of Service: 02/18/23 Assessment & Plan Assessment and plan (1) Sepsis: Status: Acute (2) ESRD on dialysis: Status: Acute Plan 67-year-old man with ESRD and sepsis. PermCath might be the possible source for sepsis. The exit site appears infected. Recommendation Status post removal of PermCath. Follow blood cultures and continue antibiotics HD via temporary dialysis catheter PermCath can be reinserted once his blood cultures are negative. We will follow along with the team. Thank you Time Spent With Patient Time: Total time managing care of this patient today ____ minutes. Progress Note: Quality Stroke Does the patient have a stroke diagnosis?: No
[2023-02-17 11:41] LABS: Glucose, Whole Blood 135 mg/dL (60-115)
--- NOTE | 2023-02-17 14:25 | MHC.CM.PN ---
per rounds pt not ready for dc plan remains resumtion of [facility],,rn palliative servceis and hd on wed and wed
[2023-02-17 16:17] LABS: Glucose, Whole Blood 127 mg/dL (60-115)
--- NOTE | 2023-02-17 16:45 | W.PM.IDCN ---
History of Present Illness Data of Consult Service Date: 02/17/23 Requesting physician: Paul Welch Primary Care Provider: Segundo Tapia MD HPI Reason for consult: MSSA bacteremia,line infection He presents to ER 02/15 with temperature 101.8 and tachycardia. He has MSSA 4/4 blood cultures. He has allergy to PCN. He has right central line removed and now temporary left IJ. I had seen him in October with MSSA bacteremia due to line and received 4 weeks IV Vancomycin. 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 Family history: reviewed and not pertinent Surgical History Surgical History H/O aortic valve replacement Social History Social History Household Members: None Housing: Apartment Do you presently have visiting nurse or other home services: Yes ([facility] 2x/week) Unable to assess alcohol history related to: Unknown Alcohol intake: never Patient Tobacco Use Status: Former Tobacco user Quit Date: 5 years ago Tobacco use type: Cigarette Years Smoked: 30 Smoked in Last 30 Days: Yes Second Hand Smoke Exposure: No Use of substances other than those prescribed or required for medical reasons: No Currently Displaying Signs/Symptoms of Drug Intoxication Withdrawal: No Have you been hit, kicked, punched, or otherwise hurt by someone within the past year? If so, by whom?: No Do you feel safe in your current relationship?: No Current Relationship Is there a partner from a previous relationship who is making you feel unsafe now?: No Are you made to feel afraid or neglected: No Advance Directives: Yes Advance Directives on File: Yes Advance Directives Date on File: 05/01/20 Do you have thoughts of harming others: None Do you have a plan to hurt others: No Plan Recently lost weight without trying: No Nutrition Risks: No Nutritional Risk service: No Current occupational status: unemployed and disabled Meds Allergies Allergy/AdvReac Type Severity Reaction Status Date / Time Penicillins Allergy Unknown UNKWN Verified 07/24/22 09:42 Active Medications: Current Medications Acetaminophen (Acetaminophen 325 Mg Tablet) 650 mg PO Q6H PRN PRN Reason: Pain, Mild (Pain Scale 1-3) Heparin Sodium (Porcine) (Heparin Sodium,Porcine 5,000 Unit/Ml Vial) 5,000 unit SUBCUT Q12H [facility] Last Admin: 02/17/23 08:01 Dose: 5,000 unit Vancomycin HCl 500 mg/ Sodium (Chloride) 110 mls @ 110 mls/hr IV MoWeFr@2000 [facility] Levothyroxine Sodium (Levothyroxine Sodium 75 Mcg Tablet) 75 mcg PO DAILY@0600 [facility] Last Admin: 02/17/23 04:42 Dose: 75 mcg Melatonin (Melatonin 3 Mg Tablet) 6 mg PO BEDTIME PRN PRN Reason: Insomnia Ondansetron HCl (Ondansetron Hcl 4 Mg/2 Ml Vial) 4 mg IVPUSH Q8H PRN PRN Reason: Nausea and Vomiting Last Admin: 02/16/23 16:16 Dose: 4 mg Pharmacy Consult (Consult Rx Perform Med Rec) 1 each MISCELLANE ONCE PRN PRN Reason: Consult order Pharmacy Consult (Consult Rx Vancomycin Dosing) 1 each MISCELLANE DAILY PRN PRN Reason: Consult order Sodium Chloride (0.9 % Sodium Chloride Flush 3 Ml Syringe) 3 ml IVFLUSH QSHIFT [facility] Last Admin: 02/17/23 15:44 Dose: 3 ml Home Medications Medication Instructions Recorded Confirmed Last Taken Type levothyroxine 75 mcg tablet 75 mcg PO DAILY@0600 06/27/20 02/16/23 2 Days Ago History ~02/14/23 atorvastatin 40 mg tablet 40 mg PO DAILY 02/10/22 02/16/23 2 Days Ago History ~02/14/23 sertraline 25 mg tablet 1 tab PO DAILY 10/03/22 02/16/23 2 Days Ago History ~02/14/23 calcium carbonate 400 mg calcium 400 mg PO TID 02/16/23 02/16/23 2 Days Ago History (1,000 mg) chewable tablet (Ultra ~02/14/23 Strength Antacid) ergocalciferol (vitamin D2) 1,250 1,250 mcg PO FR@0900 02/16/23 02/16/23 2 Days Ago History mcg (50,000 unit) capsule ~02/14/23 losartan 50 mg tablet 50 mg PO DAILY 02/16/23 02/16/23 2 Days Ago History ~02/14/23 sevelamer carbonate 800 mg tablet 1,600 mg PO TID 02/16/23 02/16/23 2 Days Ago History ~02/14/23 sulfamethoxazole 400 1 tab PO ONCE 02/16/23 02/16/23 2 Days Ago History mg-trimethoprim 80 mg tablet ~02/14/23 torsemide 20 mg tablet 40 mg PO BID@0900,1400 02/16/23 02/16/23 2 Days Ago History ~02/14/23 Physical Exam Vital Signs: Vital Signs: Last Vital Signs Temp 99 F 02/17/23 15:31 Pulse 89 02/17/23 15:31 Resp 20 02/17/23 15:31 BP 129/60 02/17/23 15:31 Pulse Ox 93 02/17/23 15:31 O2 Del Method Room Air 02/17/23 15:31 O2 Flow Rate 1.0 02/17/23 07:41 BMI result Body Mass Index 35.3 Const: General: cooperative HEENT: Head: Yes normal to inspection Face and sinus: Yes normal facial exam Mouth: Normal oral and palatal mucosa present Teeth and gingiva: dentition normal Eyes: General: appearance normal, both eyes and all related structures Pupils: Equal, round and reactive pupils present Resp: Effort & Inspection: normal respiratory effort Cardio: Rate: regular rate Rhythm: regular rhythm GI: Palpation (GI): Soft to palpation and nontender : General: Yes no CVA tenderness Back/Spine/Pelvis: Back: no CVA tenderness Skin: Other: right chest wall slightly reddened and swollen Neuro: General: moves all extremities Cranial nerves: Yes Equal, round and reactive pupils present Extrem: General: Yes normal to inspection Psych: Appearance: grossly normal Results Labs 02/17/23 07:36 02/17/23 07:36 Labs: Short CBC 02/17/23 Range/Units 07:36 WBC 8.3 (4.8-10.8) X10*3/uL Hgb 9.5 L (14.0-18.0) g/dl Hct 28.6 L (42.0-52.0) % Plt Count 215 (160-400) X10*3/uL BMP 02/17/23 07:36 Sodium 139 Potassium 4.3 Chloride 106 Carbon Dioxide 18 L BUN 51 H Creatinine 7.27 H* Calcium 8.5 Liver Function 02/17/23 Range/Units 07:36 Albumin 2.7 L (3.5-5.0) g/dL Microbiology Microbiology Results: Microbiology 02/15/23 22:06 Blood - Venous Blood Culture - Preliminary Staphylococcus aureus 02/15/23 22:06 Blood - Venous Blood Culture - Preliminary Staphylococcus aureus Assessment and Plan (1) Staphylococcus aureus bacteremia: Status: Acute He has sepsis likely due to catheter again This is MSSA. (2) Line sepsis associated with dialysis catheter: Status: Acute (3) Sepsis: Status: Acute Plan 4 weeks IV antibiotics,Vancomycin Dose per dialysis schedule. Check TTE evaluate endocarditis. Time Spent With Patient Time: Total time managing care of this patient today ____ minutes.
[2023-02-17 16:56] LABS: Vancomycin Random 19.5 mcg/mL (15-20)
[2023-02-17 20:23] LABS: Glucose, Whole Blood 132 mg/dL (60-115)
[2023-02-18 03:24] VITALS: BP 128/62; PULSE 78; RESP 16; TEMP 36.5; O2SAT 94
[2023-02-18 05:44] LABS: MANUAL DIFF FLAG NO
[2023-02-18] MEDS: Levothyroxine Sodium 75 MCG TABLET PO (05:46)
[2023-02-18 05:51] VITALS: BMI 35.3
[2023-02-18 05:52] VITALS: BMI 35.3
[2023-02-18 06:04] LABS: Basophils Absolute Auto 0.1 X10*3/uL (0.0-0.2); Eosinophils Absolute Auto 0.4 X10*3/uL (0.0-0.4); Eosinophils Percent Auto 6.6 % (0-4); Hemoglobin 9.3 g/dl (14.0-18.0); Imm Gran Abs Auto 0.03 X10*3/uL (0.00-0.03); Imm Gran Pct Auto 0.5 % (0.0-0.4); Lymphocytes Absolute Auto 0.8 X10*3/uL (1.2-4.9); Lymphocytes Percent Auto 13.3 % (20-40); Mean Corpuscular HGB Conc 32.1 g/dl (31.0-36.0); Mean Corpuscular Hemoglobin 31.5 pg (27.0-33.0); Mean Corpuscular Volume 98.3 fL (80.0-98.0); Mean Platelet Volume 9.9 fL (9.4-12.4); Monocytes Percent Auto 15.6 % (2-11); Neutrophils Absolute Auto 3.9 x10*3/uL (2.0-8.3); Platelet Count 223 X10*3/uL (160-400); Red Blood Count 2.95 X10*6/uL (4.60-5.80); Red Cell Distribution Width 13.6 % (11.0-16.0); White Blood Count 6.2 X10*3/uL (4.8-10.8)
[2023-02-18 06:14] LABS: Anion Gap 21 (12-20); Blood Urea Nitrogen 61 mg/dL (9-16); Calcium 8.6 mg/dL (8.4-10.2); Carbon Dioxide 17 mmol/L (22-29); Chloride 106 mmol/L (96-108); Creatinine Clr Calc Pharmacy 11.2; Estimated Glomerular Filt Rate 6; Glucose Random 112 mg/dL (60-115); Potassium 4.2 mmol/L (3.3-5.1); Sodium 140 mmol/L (135-145)
--- NOTE | 2023-02-18 07:00 | CA_ITS ---
Transthoracic Echocardiogram Patient (Last, First, Middle): Milan Angeles C Gender: Male Date of : 1955 Age: 67 Procedure Date: 02/18/2023 Procedure Type: Transthoracic Echocardiogram Location: S3E Height: 182. 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 The calculated ejection fraction is 63% by biplane method. - A bioprosthetic aortic valve is present. The prosthetic aortic valve appears to be functioning normally. - No obvious vegetations, but cannot definitively assess bioprosthetic aortic valve. Findings Left Ventricle Normal left ventricular cavity size. There is moderately increased left ventricular wall thickness. The left ventricular systolic function is normal. The calculated ejection fraction is 63% by biplane method. There is no evidence of regional wall motion abnormalities. Diastolic function is normal for age. LV peak GLS -19.5%. Right Ventricle Normal right ventricular cavity size and systolic function. Atria The left atrium is mildly dilated. The right atrium is normal in size. Aortic Valve A bioprosthetic aortic valve is present. The prosthetic aortic valve appears to be functioning normally. There is trace (trivial) aortic valve regurgitation. Mitral Valve There is moderate mitral annular calcification. There is mild mitral valve regurgitation. There is no mitral valve stenosis. Pulmonic Valve The pulmonic valve is likely normal. Tricuspid Valve Normal tricuspid valve structure. There is trace tricuspid valve regurgitation. There is no evidence of pulmonary hypertension. Great Vessels The asc aorta is normal in size. Venous The inferior vena cava is normal in size and collapses greater than 50% with inspiration. Pericardium/Pleural There is a trivial pericardial effusion. Prior Study Comparison No significant change compared to prior study dated: 10/29/2022. Recommendations, Care & Conclusions Consider a MARY if clinically appropriate. Measurements 2D Linear Measurements IVSd: 1.80 0.6-0.9/0.6-1.0 cm LVIDd: 4.53 3.9-5.3/4.2-5.9 cm LVIDd Index: 1.91 2.4-3.2/2.2-3.1 cm/m2 LVIDs: 3.16 2.0-3.6 cm LVPWd: 1.55 0.7-1.1 cm LA Diam: 4.50 2.7-3.8/3.0-4.0 cm LAIDs Index: 1.90 1.5-2.3 cm/m2 LV Mass: 412.20 67-162/88-224 g LV Mass Index: 173.92 43-95/49-115 g/m2 LVOT Diam: 1.90 3.0+(-)1.3 cm 2D Systolic Function EF 4C: 63.90 >55% EF 2C: 59.10 >55% EF BiP: 62.70 >55% Mitral Valve MV Pk E: 1.36 MV PK A: 1.17 MV Decel Time: 245.00 E/A: 1.20 E'Lateral: 10.80 E'Medial: 7.51 E/E' Med: 18.10 E/E' Lat: 12.60 PHT: 72.00 MVA PHT: 3.06 Decel [place]: 5.55 Aortic Valve AoV Pk Ghulam: 2.52 AoV Mn Ghulam: 1.86 AoV VTI: 0.55 AoV Pk Grad: 25.00 Aov Mn Grad: 15.00 EDDI Cont.VTI: 1.96 LVOT LVOT Pk Ghulam: 1.88 LVOT Mn Ghulam: 1.31 LVOT VTI: 0.38 LVOT Pk Grad: 14.00 LVOT Mn Grad: 8.00 LVOT Diam: 1.90 LVOT Area: 2.84 Diastolic Function MV Pk E: 1.36 MV Pk A: 1.17 E/A: 1.20 E'Medial: 7.51 E/E' Med: 18.10 E' Laterial: 10.80 E/E' Lat: 12.60 Right Ventricle TAPSE (mm): 17.30 TVS' Ghulam: 11.20 Tricuspid Valve TR Pk Ghulam: 1.93 TR Pk Grad: 15.00 RA Press: 3.00 RVSP: 18.00 Great Vessels Aorta Sinus of Valsalva: 3.80 2.0-3.5 cm Ao Asc: 3.80 2.1-3.4 cm Pulmonary Valve PV Pk Ghulam: 1.10 Peak PV Grad: 5.00 Updated in Other Vendor System with Status of Final Parveen Hooker MD electronically signed on 02/18/2023 3:50:12 PM with status of Final
[2023-02-18 07:18] VITALS: BP 133/68; PULSE 83; RESP 17; TEMP 36.7; O2SAT 96
[2023-02-18 07:42] LABS: Glucose, Whole Blood 102 mg/dL (60-115)
[2023-02-18] MEDS: Heparin Sodium,Porcine 5,000 UNIT/ML VIAL 5000 UNIT SUBCUT ×2 (08:10→20:44)
--- NOTE | 2023-02-18 10:12 | PM.PNNEP ---
Subjective Subjective Date of Service: 02/22/23 Interval history: Events noted Permcath removed. Has a temporary catheter in left IJ Physical Exam Vital Signs: Vital Signs: Last Vital Signs Temp 98.1 F 02/18/23 07:18 Pulse 83 02/18/23 07:18 Resp 17 02/18/23 07:18 BP 133/68 02/18/23 07:18 Pulse Ox 96 02/18/23 07:18 O2 Del Method Room Air 02/18/23 07:18 O2 Flow Rate 1.0 02/17/23 07:41 BMI result Body Mass Index 35.3 Comfortable Neck is supple Lung: Air entry equal Heart: S1,S2, normal. No rub Abd: Soft. BS + NS : Alert.No asterexis Ext: No edema Const: General: comfortable and awake Orientation/consciousness: patient oriented x3 Eyes: Conjunctivae: conjunctivae normal Resp: Auscultation: clear to auscultation bilaterally GI: Palpation (GI): Soft to palpation and nontender Neuro: General: patient oriented x3 Objective Data Labs 02/18/23 05:11 02/18/23 05:11 Labs: Laboratory Results - last 24 hr 02/17/23 02/17/23 02/17/23 11:36 16:09 16:16 WBC RBC Hgb Hct MCV MCH MCHC RDW Plt Count MPV Immature Gran % (Auto) Neut % (Auto) Lymph % (Auto) [place] % (Auto) Eos % (Auto) Baso % (Auto) Lymph # (Auto) [place] # (Auto) Eos # (Auto) Baso # (Auto) Abs Immat Gran (auto) Absolute Neuts (auto) Absolute Nucleated RBC Nucleated RBC % (auto) Sodium Potassium Chloride Carbon Dioxide Anion Gap BUN Creatinine Estim Creat Clear Calc Estimated GFR POC Glucose 135 H 127 H Random Glucose Calcium Random Vancomycin 19.5 02/17/23 02/18/23 02/18/23 20:15 05:11 05:11 WBC 6.2 RBC 2.95 L Hgb 9.3 L Hct 29.0 L MCV 98.3 H MCH 31.5 MCHC 32.1 RDW 13.6 Plt Count 223 MPV 9.9 Immature Gran % (Auto) 0.5 H Neut % (Auto) 63.0 Lymph % (Auto) 13.3 L [place] % (Auto) 15.6 H Eos % (Auto) 6.6 H Baso % (Auto) 1.0 Lymph # (Auto) 0.8 L [place] # (Auto) 1.0 Eos # (Auto) 0.4 Baso # (Auto) 0.1 Abs Immat Gran (auto) 0.03 Absolute Neuts (auto) 3.9 Absolute Nucleated RBC 0.000 Nucleated RBC % (auto) 0.0 Sodium 140 Potassium 4.2 Chloride 106 Carbon Dioxide 17 L Anion Gap 21 H BUN 61 H Creatinine 8.44 H* Estim Creat Clear Calc 11.2 Estimated GFR 6 POC Glucose 132 H Random Glucose 112 Calcium 8.6 Random Vancomycin 02/18/23 07:32 WBC RBC Hgb Hct MCV MCH MCHC RDW Plt Count MPV Immature Gran % (Auto) Neut % (Auto) Lymph % (Auto) [place] % (Auto) Eos % (Auto) Baso % (Auto) Lymph # (Auto) [place] # (Auto) Eos # (Auto) Baso # (Auto) Abs Immat Gran (auto) Absolute Neuts (auto) Absolute Nucleated RBC Nucleated RBC % (auto) Sodium Potassium Chloride Carbon Dioxide Anion Gap BUN Creatinine Estim Creat Clear Calc Estimated GFR POC Glucose 102 Random Glucose Calcium Random Vancomycin Microbiology Microbiology Results: Microbiology 02/15/23 22:06 Blood - Venous Blood Culture - Preliminary Staphylococcus aureus 02/15/23 22:06 Blood - Venous Blood Culture - Preliminary Staphylococcus aureus Procedures Date of Service Date of Service: 02/22/23 Assessment & Plan Assessment and plan (1) Sepsis: Status: Acute (2) ESRD on dialysis: Status: Acute Plan 67-year-old man with ESRD and sepsis. PermCath might be the possible source for sepsis. The exit site appears infected. Recommendation Status post removal of PermCath. Follow blood cultures and continue antibiotics HD via temporary dialysis catheter HD today PermCath can be reinserted once his blood cultures are negative. We will follow along with the team. Thank you Time Spent With Patient Time: Total time managing care of this patient today ____ minutes. Progress Note: Quality Stroke Does the patient have a stroke diagnosis?: No
--- NOTE | 2023-02-18 11:08 | HO.PM.IMPN ---
Subjective Subjective Date of Service: 02/18/23 Interval History: seen and examined this morning follow up for bacteremia no specific complaints this am, but frustrated he has to keep repeating himself Review of Systems Review of Systems: Yes all other systems are reviewed and are negative Constitutional Constitutional: Denies chills and Denies fever(s) Cardiovascular Cardiovascular: Denies chest pain, Denies palpitations and Denies dyspnea Respiratory Respiratory: Denies dyspnea Gastrointestinal Gastrointestinal: Denies abdominal pain Endocrine Endocrine: Denies palpitations Physical Exam Vital Signs: Vital Signs: Last Vital Signs Temp 98.1 F 02/18/23 07:18 Pulse 83 02/18/23 07:18 Resp 17 02/18/23 07:18 BP 133/68 02/18/23 07:18 Pulse Ox 96 02/18/23 07:18 O2 Del Method Room Air 02/18/23 07:18 O2 Flow Rate 1.0 02/17/23 07:41 BMI result Body Mass Index 35.3 Const: General: cooperative, comfortable, no acute distress, alert and awake Nutritional Appearance: obese Orientation/consciousness: patient oriented x3 Resp: Effort & Inspection: normal respiratory effort, able to speak in complete sentences, no respiratory distress and no use of accessory muscles Cardio: Rate: regular rate Heart sounds: S1 normal heart sound present and S2 normal heart sound present GI: Inspection: No distended Palpation (GI): Soft to palpation and nontender Skin: Other: right side chest wall mild erythema at site of port removal left temp HD catheter with no erythema Neuro: General: patient oriented x3, moves all extremities and CN's II-XI intact bilaterally Extrem: General: Yes no pedal edema Objective Data Active Medications Acetaminophen (Acetaminophen 325 Mg Tablet) 650 mg PO Q6H PRN PRN Reason: Pain, Mild (Pain Scale 1-3) Heparin Sodium (Porcine) (Heparin Sodium,Porcine 5,000 Unit/Ml Vial) 5,000 unit SUBCUT Q12H [facility] Last Admin: 02/18/23 08:10 Dose: 5,000 unit Documented By: JULIAN Vancomycin HCl 500 mg/ Sodium (Chloride) 110 mls @ 110 mls/hr IV [id number] [facility] Levothyroxine Sodium (Levothyroxine Sodium 75 Mcg Tablet) 75 mcg PO DAILY@0600 [facility] Last Admin: 02/18/23 05:46 Dose: 75 mcg Documented By: JD Melatonin (Melatonin 3 Mg Tablet) 6 mg PO BEDTIME PRN PRN Reason: Insomnia Ondansetron HCl (Ondansetron Hcl 4 Mg/2 Ml Vial) 4 mg IVPUSH Q8H PRN PRN Reason: Nausea and Vomiting Last Admin: 02/16/23 16:16 Dose: 4 mg Documented By: MADELINE Pharmacy Consult (Consult Rx Perform Med Rec) 1 each MISCELLANE ONCE PRN PRN Reason: Consult order Pharmacy Consult (Consult Rx Vancomycin Dosing) 1 each MISCELLANE DAILY PRN PRN Reason: Consult order Sodium Chloride (0.9 % Sodium Chloride Flush 3 Ml Syringe) 3 ml IVFLUSH QSHIFT [facility] Last Admin: 02/18/23 08:11 Dose: Not Given Documented By: JULIAN Non-Admin Reason: No Access Labs 02/18/23 05:11 02/18/23 05:11 Labs: Laboratory Results - last 24 hr 02/17/23 02/17/23 02/17/23 11:36 16:09 16:16 MCV MCH MCHC RDW Plt Count MPV Immature Gran % (Auto) Neut % (Auto) Lymph % (Auto) [place] % (Auto) Eos % (Auto) Baso % (Auto) Lymph # (Auto) [place] # (Auto) Eos # (Auto) Baso # (Auto) Abs Immat Gran (auto) Absolute Neuts (auto) Absolute Nucleated RBC Nucleated RBC % (auto) Anion Gap Estim Creat Clear Calc Estimated GFR POC Glucose 135 H 127 H Random Glucose Calcium Random Vancomycin 19.5 02/17/23 02/18/23 02/18/23 20:15 05:11 05:11 MCV 98.3 H MCH 31.5 MCHC 32.1 RDW 13.6 Plt Count 223 MPV 9.9 Immature Gran % (Auto) 0.5 H Neut % (Auto) 63.0 Lymph % (Auto) 13.3 L [place] % (Auto) 15.6 H Eos % (Auto) 6.6 H Baso % (Auto) 1.0 Lymph # (Auto) 0.8 L [place] # (Auto) 1.0 Eos # (Auto) 0.4 Baso # (Auto) 0.1 Abs Immat Gran (auto) 0.03 Absolute Neuts (auto) 3.9 Absolute Nucleated RBC 0.000 Nucleated RBC % (auto) 0.0 Anion Gap 21 H Estim Creat Clear Calc 11.2 Estimated GFR 6 POC Glucose 132 H Random Glucose 112 Calcium 8.6 Random Vancomycin 02/18/23 07:32 MCV MCH MCHC RDW Plt Count MPV Immature Gran % (Auto) Neut % (Auto) Lymph % (Auto) [place] % (Auto) Eos % (Auto) Baso % (Auto) Lymph # (Auto) [place] # (Auto) Eos # (Auto) Baso # (Auto) Abs Immat Gran (auto) Absolute Neuts (auto) Absolute Nucleated RBC Nucleated RBC % (auto) Anion Gap Estim Creat Clear Calc Estimated GFR POC Glucose 102 Random Glucose Calcium Random Vancomycin Microbiology Microbiology Results: Microbiology 02/15/23 22:06 Blood Culture - Preliminary Blood - Venous Staphylococcus aureus 02/15/23 22:06 Blood Culture - Preliminary Blood - Venous Staphylococcus aureus Assessment and Plan (1) Staphylococcus aureus bacteremia: Status: Acute (2) Line sepsis associated with dialysis catheter: Status: Acute (3) ESRD on dialysis: Status: Acute Plan 67 year old male with history bioprosthetic aortic valve replacement, CAD s/p CABG, h/o nephrotic syndrome with ESRD on dialysis MWF, hld, htn, hypothyroidism, HFpEF, and mood disorder admitted for line sepsis at permacat site with admission to ICU on 02/16 and stepdown to hospitalist service on 02/17 following placement of temporary IJ central catheter. He is now with positive blood cultures x 2. #Line sepsis at permacath site -permcath removed -erythema improved. WBC normalized, VSS afebrile -Continue vanco -Follow CBC, BC #Staph aureus bacteremia -preliminary cultures x 2 positive for staph aureus, sensitivies still pending - need to be re-run per micro. presumed MSSA as previously had the same, but final sensitivies anticipated tomorrow -Continue IV vanco -Echo ordered -seen by ID, rec 4 weeks of IV vancomycin dosed per dialysis schedule -Repeat cultures ordered and pending #ESRD on dialysis due to nephrotic syndrome- non-oliguric -permacath removed as above, temp catheter placed in left IJ in ICU -Renal function baseline, lytes normal -Continue dialysis MWF -Nephrology following - will need replacement of permcath once blood cultures clear #Chronic normocytic anemia- likely r/t chronic disease -H/H stable, above transfusion threshold -monitor cbc #HTN -bps soft, hold losartan for now #Hypothyroidism -continue synthroid #CAD/HLD -no chest pain -continue statin #HFpEF -euvolumeic on torsemide at baseline, resume when bp allows #mood -resume sertraline #HLD -statin DVT prophylaxis- heparin Full code attending - Dr Squires Pt requires ongoing inpt stay for management of line sepsis at [facility] site now with rajat aureus bacteremia requiring IV abx, repeat blood cultures, echo to assess for endocarditis and expert consultation and will likely require PICC line placement pending negative BC for intermediate abx. Time Spent With Patient Time: Total time managing care of this patient today ____ minutes. Quality Stroke Does the patient have a stroke diagnosis?: No VTE Prior VTE?: No VTE Risk Level:: Medical - moderate - high VTE Device Contraindication: N/A - Device Ordered VTE Drug Contraindication: N/A - Med Ordered
[2023-02-18 11:29] LABS: Glucose, Whole Blood 116 mg/dL (60-115)
[2023-02-18 11:39] VITALS: BP 128/65; PULSE 80; RESP 17; TEMP 36.8; O2SAT 96
[2023-02-18 15:56] VITALS: BP 144/71; PULSE 82; RESP 20; TEMP 36.7; O2SAT 96
[2023-02-18 16:14] LABS: Glucose, Whole Blood 134 mg/dL (60-115)
[2023-02-18] MEDS: 0.9 % Sodium Chloride Flush 3 ML SYRINGE IVFLUSH ×2 (16:27→20:44)
[2023-02-18 20:00] VITALS: BP 110/62; PULSE 72; RESP 18; TEMP 36.8; O2SAT 98
[2023-02-18 20:46] LABS: Glucose, Whole Blood 162 mg/dL (60-115)
[2023-02-18 23:36] VITALS: BP 123/57; PULSE 77; RESP 16; TEMP 36.4; O2SAT 95
[2023-02-19 04:00] VITALS: BP 136/94; PULSE 74; RESP 18; TEMP 36.7; O2SAT 98
[2023-02-19 04:42] VITALS: BMI 31.8
[2023-02-19] MEDS: Levothyroxine Sodium 75 MCG TABLET PO (05:54)
[2023-02-19 07:08] LABS: Anion Gap 18 (12-20); Blood Urea Nitrogen 64 mg/dL (9-16); Calcium 8.5 mg/dL (8.4-10.2); Carbon Dioxide 17 mmol/L (22-29); Chloride 110 mmol/L (96-108); Creatinine Clr Calc Pharmacy 10.5; Estimated Glomerular Filt Rate 6; Glucose Random 119 mg/dL (60-115); Sodium 141 mmol/L (135-145)
[2023-02-19 07:44] LABS: Glucose, Whole Blood 112 mg/dL (60-115)
[2023-02-19 07:50] VITALS: BP 125/63; PULSE 72; RESP 18; TEMP 36.9; O2SAT 96
--- NOTE | 2023-02-19 13:47 | P.PNIM_ITS ---
Subjective Subjective Date of Service: 02/19/23 Interval History: seen and examined this morning follow up for line bactermia frustrated with being in the hospital no fever, chills, sob Review of Systems Review of Systems: Yes all other systems are reviewed and are negative Constitutional Constitutional: Denies chills and Denies fever(s) Cardiovascular Cardiovascular: Denies chest pain, Denies palpitations and Denies dyspnea Respiratory Respiratory: Denies cough and Denies dyspnea Gastrointestinal Gastrointestinal: Denies abdominal pain Endocrine Endocrine: Denies palpitations Physical Exam Vital Signs: Vital Signs: Last Vital Signs Temp 98.5 F 02/19/23 07:50 Pulse 72 02/19/23 07:50 Resp 18 02/19/23 07:50 BP 125/63 02/19/23 07:50 Pulse Ox 96 02/19/23 07:50 O2 Del Method Room Air 02/19/23 07:50 O2 Flow Rate 1.0 02/17/23 07:41 BMI result Body Mass Index 31.8 Const: General: cooperative, comfortable, no acute distress, alert and awake Nutritional Appearance: obese Orientation/consciousness: patient oriented x3 Resp: Effort & Inspection: normal respiratory effort, able to speak in complete sentences, no respiratory distress and no use of accessory muscles Cardio: Rate: regular rate Heart sounds: S1 normal heart sound present and S2 normal heart sound present GI: Inspection: No distended Palpation (GI): Soft to palpation and nontender Skin: Other: right side chest minimal erythema at site of port removal left temp HD catheter with no erythema Neuro: General: patient oriented x3, moves all extremities and CN's II-XI intact bilaterally Extrem: General: Yes no pedal edema Objective Data Active Medications Acetaminophen (Acetaminophen 325 Mg Tablet) 650 mg PO Q6H PRN PRN Reason: Pain, Mild (Pain Scale 1-3) Atorvastatin Calcium (Atorvastatin Calcium 40 Mg Tablet) 40 mg PO DAILY [facility] Last Admin: 02/19/23 09:43 Dose: Not Given Documented By: JULIAN Non-Admin Reason: In dialysis Heparin Sodium (Porcine) (Heparin Sodium,Porcine 5,000 Unit/Ml Vial) 5,000 unit SUBCUT Q12H [facility] Last Admin: 02/19/23 09:43 Dose: Not Given Documented By: JULIAN Non-Admin Reason: In dialysis Vancomycin HCl 500 mg/ Sodium (Chloride) 110 mls @ 110 mls/hr IV [id number] [facility] Levothyroxine Sodium (Levothyroxine Sodium 75 Mcg Tablet) 75 mcg PO DAILY@0600 [facility] Last Admin: 02/19/23 05:54 Dose: 75 mcg Documented By: JD Melatonin (Melatonin 3 Mg Tablet) 6 mg PO BEDTIME PRN PRN Reason: Insomnia Ondansetron HCl (Ondansetron Hcl 4 Mg/2 Ml Vial) 4 mg IVPUSH Q8H PRN PRN Reason: Nausea and Vomiting Last Admin: 02/16/23 16:16 Dose: 4 mg Documented By: MADELINE Pharmacy Consult (Consult Rx Perform Med Rec) 1 each MISCELLANE ONCE PRN PRN Reason: Consult order Pharmacy Consult (Consult Rx Vancomycin Dosing) 1 each MISCELLANE DAILY PRN PRN Reason: Consult order Sertraline HCl (Sertraline Hcl 25 Mg Tablet) 25 mg PO DAILY [facility] Last Admin: 02/19/23 09:43 Dose: Not Given Documented By: JULIAN Non-Admin Reason: In dialysis Sodium Chloride (0.9 % Sodium Chloride Flush 3 Ml Syringe) 3 ml IVFLUSH QSHIFT [facility] Last Admin: 02/19/23 09:06 Dose: Not Given Documented By: JD Non-Admin Reason: off unit Labs 02/18/23 05:11 02/19/23 05:54 Labs: Laboratory Results - last 24 hr 02/18/23 02/18/23 02/19/23 16:00 20:43 05:54 Anion Gap 18 Estim Creat Clear Calc 10.5 Estimated GFR 6 POC Glucose 134 H 162 H Random Glucose 119 H Calcium 8.5 02/19/23 07:38 Anion Gap Estim Creat Clear Calc Estimated GFR POC Glucose 112 Random Glucose Calcium Microbiology Microbiology Results: Microbiology 02/17/23 09:45 Blood Culture - Preliminary Blood - Venous No growth after 48 hours. 02/17/23 09:45 Blood Culture - Preliminary Blood - Venous No growth after 48 hours. 02/18/23 05:11 Blood Culture - Preliminary Blood - Venous No growth after 24 hours. 02/15/23 22:06 Blood Culture - Preliminary Blood - Venous Staphylococcus aureus Assessment and Plan (1) Staphylococcus aureus bacteremia: Status: Acute (2) Line sepsis associated with dialysis catheter: Status: Acute Plan 67 year old male with history bioprosthetic aortic valve replacement, CAD s/p CABG, h/o nephrotic syndrome with ESRD on dialysis MWF, hld, htn, hypothyroidism, HFpEF, and mood disorder admitted for line sepsis at [facility] site with admission to ICU on 02/16 and stepdown to hospitalist service on 02/17 following placement of temporary IJ central catheter. He is now with positive blood cultures x 2. #Line sepsis at [facility] site -permcath removed -erythema improved. WBC normalized, afebrile -Continue vanco -Final blood cultures still pending #Staph aureus bacteremia -preliminary cultures x 2 positive for staph aureus, sensitivities still pending - need to be re-run per micro. presumed MSSA as previously had the same, but final sensitivities anticipated sometime today -Continue IV vanco after HD -Echo ordered -seen by ID, rec 4 weeks of IV vancomycin dosed per dialysis schedule -Repeat cultures ordered and pending #ESRD on dialysis due to nephrotic syndrome- non-oliguric -permacath removed as above, temp catheter placed in left IJ in ICU -Continue dialysis MWF -Nephrology following - will need replacement of permcath once blood cultures clear #Chronic normocytic anemia- likely r/t chronic disease -H/H stable, above transfusion threshold -monitor cbc #HTN -bps soft, hold losartan for now #Hypothyroidism -continue synthroid #CAD/HLD -no chest pain -continue statin #HFpEF -euvolumeic on torsemide at baseline, resume when bp allows #mood -resume sertraline #HLD -statin DVT prophylaxis- heparin Full code attending - Dr Squires Pt requires ongoing inpt stay for management of line sepsis at [facility] site now with rajat aureus bacteremia requiring IV abx, repeat blood cultures, echo to assess for endocarditis and expert consultation and will likely require PICC line placement pending negative BC for alf abx. Time Spent With Patient Time: Total time managing care of this patient today ____ minutes. Quality Stroke Does the patient have a stroke diagnosis?: No VTE Prior VTE?: No VTE Risk Level:: Medical - moderate - high VTE Device Contraindication: N/A - Device Ordered VTE Drug Contraindication: N/A - Med Ordered
[2023-02-19 15:38] VITALS: BP 113/63; PULSE 84; RESP 18; TEMP 36.7; O2SAT 96
--- NOTE | 2023-02-19 15:46 | MHC.CM.PN ---
EMR REVIEWED AND PER MD ROUNDS, PT IS NOT MEDICALLY CLEARED FOR DC (AWAITING CULTURES) CM WILL CONTINUE TO FOLLOW FOR DC PLAN/NEEDS
[2023-02-19 16:29] LABS: Glucose, Whole Blood 289 mg/dL (60-115)
[2023-02-19] MEDS: 0.9 % Sodium Chloride Flush 3 ML SYRINGE IVFLUSH ×2 (17:01→20:16)
[2023-02-19 17:33] LABS: Vancomycin Random 14.3 mcg/mL (15-20)
--- NOTE | 2023-02-19 18:16 | PM.PNNEP ---
Subjective Subjective Date of Service: 02/19/23 Interval history: dialyzed today via temp line cultures so far reassuring Physical Exam Vital Signs: Vital Signs: Last Vital Signs Temp 98.1 F 02/19/23 15:38 Pulse 84 02/19/23 15:38 Resp 18 02/19/23 15:38 BP 113/63 02/19/23 15:38 Pulse Ox 96 02/19/23 15:38 O2 Del Method Room Air 02/19/23 15:38 O2 Flow Rate 1.0 02/17/23 07:41 BMI result Body Mass Index 31.8 Const: General: comfortable and awake Orientation/consciousness: patient oriented x3 Eyes: Conjunctivae: conjunctivae normal Resp: Auscultation: clear to auscultation bilaterally GI: Palpation (GI): Soft to palpation and nontender Neuro: General: patient oriented x3 Objective Data Labs 02/18/23 05:11 02/19/23 05:54 Labs: Laboratory Results - last 24 hr 02/18/23 02/19/23 02/19/23 20:43 05:54 07:38 Sodium 141 Potassium 4.0 Chloride 110 H Carbon Dioxide 17 L Anion Gap 18 BUN 64 H Creatinine 8.60 H* Estim Creat Clear Calc 10.5 Estimated GFR 6 POC Glucose 162 H 112 Random Glucose 119 H Calcium 8.5 Random Vancomycin 02/19/23 02/19/23 15:50 16:21 Sodium Potassium Chloride Carbon Dioxide Anion Gap BUN Creatinine Estim Creat Clear Calc Estimated GFR POC Glucose 289 H Random Glucose Calcium Random Vancomycin 14.3 L Microbiology Microbiology Results: Microbiology 02/15/23 22:06 Blood - Venous Blood Culture - Preliminary Staphylococcus aureus 02/17/23 09:45 Blood - Venous Blood Culture - Preliminary No growth after 48 hours. 02/17/23 09:45 Blood - Venous Blood Culture - Preliminary No growth after 48 hours. 02/18/23 05:11 Blood - Venous Blood Culture - Preliminary No growth after 24 hours. 02/15/23 22:06 Blood - Venous Blood Culture - Preliminary Staphylococcus aureus Procedures Date of Service Date of Service: 02/19/23 Assessment & Plan Assessment and plan (1) Sepsis: Status: Acute (2) ESRD on dialysis: Status: Acute Plan 67-year-old man with ESRD and sepsis. Permcath removed preempatively for sepsis Cultures so far negative temp line in place for iHD Plan HD today per MWF schedule. sepsis work up Time Spent With Patient Time: Total time managing care of this patient today ____ minutes. Progress Note: Quality Stroke Does the patient have a stroke diagnosis?: No
[2023-02-19 19:07] VITALS: BP 115/56; PULSE 75; RESP 18; TEMP 36.4; O2SAT 94
[2023-02-19 20:15] LABS: Glucose, Whole Blood 140 mg/dL (60-115)
[2023-02-19] MEDS: Heparin Sodium,Porcine 5,000 UNIT/ML VIAL 5000 UNIT SUBCUT (20:16)
[2023-02-19 23:52] VITALS: BP 123/60; PULSE 74; RESP 18; TEMP 36.4; O2SAT 96
[2023-02-20 03:45] VITALS: BP 125/66; PULSE 70; RESP 19; TEMP 36.2; O2SAT 98
[2023-02-20] MEDS: Levothyroxine Sodium 75 MCG TABLET PO (04:59)
[2023-02-20 05:01] VITALS: BMI 30.8
[2023-02-20 05:59] LABS: Estimated Average Glucose 180 mg/dL; Hemoglobin A1c % 7.9 %
[2023-02-20 06:00] VITALS: BMI 30.8
[2023-02-20 06:06] LABS: Anion Gap 21 (12-20); Blood Urea Nitrogen 47 mg/dL (9-16); Calcium 9.3 mg/dL (8.4-10.2); Carbon Dioxide 18 mmol/L (22-29); Chloride 104 mmol/L (96-108); Creatinine Clr Calc Pharmacy 11.9; Estimated Glomerular Filt Rate 7; Glucose Random 153 mg/dL (60-115); Potassium 3.7 mmol/L (3.3-5.1); Sodium 139 mmol/L (135-145)
[2023-02-20 07:29] VITALS: BP 121/61; PULSE 74; RESP 18; TEMP 36.7; O2SAT 96
[2023-02-20] MEDS: Atorvastatin Calcium 40 MG TABLET PO (07:52)
[2023-02-20] MEDS: Sertraline HCL 25 MG TABLET PO (07:52)
[2023-02-20] MEDS: Heparin Sodium,Porcine 5,000 UNIT/ML VIAL 5000 UNIT SUBCUT ×2 (07:53→21:15)
[2023-02-20 07:56] LABS: Glucose, Whole Blood 153 mg/dL (60-115)
[2023-02-20] MEDS: Insulin Lispro 100 UNIT/ML 3 ML VIAL SUBCUT ×2 (07:56→17:24)
[2023-02-20] MEDS: 0.9 % Sodium Chloride Flush 3 ML SYRINGE IVFLUSH ×3 (07:57→21:18)
--- NOTE | 2023-02-20 10:03 | P.PNIM_ITS ---
Subjective Subjective Date of Service: 02/20/23 Interval History: seen and examined this morning follow up for line bactermia frustrated with being in the hospital no fever, chills, sob Review of Systems Review of Systems: Yes all other systems are reviewed and are negative Constitutional Constitutional: Denies chills and Denies fever(s) Cardiovascular Cardiovascular: Denies chest pain, Denies palpitations and Denies dyspnea Respiratory Respiratory: Denies cough and Denies dyspnea Gastrointestinal Gastrointestinal: Denies abdominal pain Endocrine Endocrine: Denies palpitations Physical Exam Vital Signs: Vital Signs: Last Vital Signs Temp 98.0 F 02/20/23 07:29 Pulse 74 02/20/23 07:29 Resp 18 02/20/23 07:29 BP 121/61 02/20/23 07:29 Pulse Ox 96 02/20/23 07:29 O2 Del Method Room Air 02/20/23 07:29 O2 Flow Rate 1.0 02/17/23 07:41 BMI result Body Mass Index 30.8 Appearing in no acute distress lung sounds are clear to auscultation heart regular rate rhythm, clear S1, S2 positive bowel sounds, abdomen is soft, nontender neuro patient is alert x3, no focal deficits Objective Data Active Medications Acetaminophen (Acetaminophen 325 Mg Tablet) 650 mg PO Q6H PRN PRN Reason: Pain, Mild (Pain Scale 1-3) Atorvastatin Calcium (Atorvastatin Calcium 40 Mg Tablet) 40 mg PO DAILY [facility] Last Admin: 02/20/23 07:52 Dose: 40 mg Documented By: EDELMIRA Dextrose (Dextrose 50 % 25 Gm/50 Ml Syringe) 25 gm IVPUSH Q15M PRN; Protocol PRN Reason: per Hypoglycemia Standing Ord. Glucose (Glucose Gel 15 Gm Gel..Gram.) 15 gm PO Q15M PRN; Protocol PRN Reason: per Hypoglycemia Standing Ord. Heparin Sodium (Porcine) (Heparin Sodium,Porcine 5,000 Unit/Ml Vial) 5,000 unit SUBCUT Q12H [facility] Last Admin: 02/20/23 07:53 Dose: 5,000 unit Documented By: EDELMIRA Vancomycin HCl 500 mg/ Sodium (Chloride) 110 mls @ 110 mls/hr IV MoWeFr@2000 [facility] Insulin Human Lispro (Insulin Lispro 100 Unit/Ml 3 Ml Vial) 0 unit SUBCUT QIDACHS [facility]; Protocol Last Admin: 02/20/23 07:56 Dose: 2 unit Documented By: EDELMIRA Levothyroxine Sodium (Levothyroxine Sodium 75 Mcg Tablet) 75 mcg PO DAILY@0600 [facility] Last Admin: 02/20/23 04:59 Dose: 75 mcg Documented By: JD Melatonin (Melatonin 3 Mg Tablet) 6 mg PO BEDTIME PRN PRN Reason: Insomnia Ondansetron HCl (Ondansetron Hcl 4 Mg/2 Ml Vial) 4 mg IVPUSH Q8H PRN PRN Reason: Nausea and Vomiting Last Admin: 02/16/23 16:16 Dose: 4 mg Documented By: MADELINE Pharmacy Consult (Consult Rx Perform Med Rec) 1 each MISCELLANE ONCE PRN PRN Reason: Consult order Pharmacy Consult (Consult Rx Vancomycin Dosing) 1 each MISCELLANE DAILY PRN PRN Reason: Consult order Sertraline HCl (Sertraline Hcl 25 Mg Tablet) 25 mg PO DAILY [facility] Last Admin: 02/20/23 07:52 Dose: 25 mg Documented By: EDELMIRA Sodium Chloride (0.9 % Sodium Chloride Flush 3 Ml Syringe) 3 ml IVFLUSH QSHIFT [facility] Last Admin: 02/20/23 07:57 Dose: 3 ml Documented By: EDELMIRA Labs 02/18/23 05:11 02/20/23 05:30 Labs: Laboratory Results - last 24 hr 02/19/23 02/19/23 02/19/23 15:50 16:21 19:51 Anion Gap Estim Creat Clear Calc Estimated GFR POC Glucose 289 H 140 H Random Glucose Estimat Average Glucose Hemoglobin A1c % Calcium Random Vancomycin 14.3 L 02/20/23 02/20/23 02/20/23 05:30 05:30 07:28 Anion Gap 21 H Estim Creat Clear Calc 11.9 Estimated GFR 7 POC Glucose 153 H Random Glucose 153 H Estimat Average Glucose 180 Hemoglobin A1c % 7.9 Calcium 9.3 D Random Vancomycin Microbiology Microbiology Results: Microbiology 02/19/23 05:54 Blood Culture - Preliminary Blood - Venous No growth after 24 hours. 02/18/23 05:11 Blood Culture - Preliminary Blood - Venous No growth after 48 hours. 02/15/23 22:06 Blood Culture - Preliminary Blood - Venous Staphylococcus aureus 02/17/23 09:45 Blood Culture - Preliminary Blood - Venous No growth after 48 hours. 02/17/23 09:45 Blood Culture - Preliminary Blood - Venous No growth after 48 hours. Assessment and Plan (1) Staphylococcus aureus bacteremia: Status: Acute (2) Line sepsis associated with dialysis catheter: Status: Acute Plan 67 year old male with history bioprosthetic aortic valve replacement, CAD s/p CABG, h/o nephrotic syndrome with ESRD on dialysis MWF, hld, htn, hypothyroidism, HFpEF, and mood disorder admitted for line sepsis at [facility] with admission to ICU on 02/16 and stepdown to hospitalist service on 02/17 following placement of temporary IJ central catheter. He is now with positive blood cultures x 2. Line sepsis at [facility] site permcath removed erythema improved. WBC normalized, afebrile Continue vanco Final blood cultures still pending Staph aureus bacteremia preliminary cultures x 2 positive for staph aureus, sensitivities still pending - need to be re-run per micro. presumed MSSA as previously had the same, but final sensitivities anticipated sometime today Continue IV vanco after HD Echo showed no vegetation seen by ID, rec 4 weeks of IV vancomycin dosed per dialysis schedule ESRD on dialysis due to nephrotic syndrome- non-oliguric permacath removed as above, temp catheter placed in left IJ in ICU Continue dialysis MWF Nephrology following - will need replacement of permcath once blood cultures clear Chronic normocytic anemia- likely r/t chronic disease H/H stable, above transfusion threshold monitor cbc HTN bps soft, hold losartan for now Hypothyroidism continue synthroid CAD/HLD no chest pain continue statin HFpEF euvolumeic on torsemide at baseline, resume when bp allows mood sertraline HLD statin DVT prophylaxis- heparin Full code attending - Dr Levin Pt requires ongoing inpt stay for management of line sepsis at [facility] now with rajat aureus bacteremia requiring IV abx, repeat blood cultures and e xpert consultation and will likely require PICC line placement pending negative BC for retirement abx. Time Spent With Patient Time: Total time managing care of this patient today ____ minutes. Quality Stroke Does the patient have a stroke diagnosis?: No VTE Prior VTE?: No VTE Risk Level:: Medical - moderate - high VTE Device Contraindication: N/A - Device Ordered VTE Drug Contraindication: N/A - Med Ordered
[2023-02-20 11:32] VITALS: BP 118/65; PULSE 73; RESP 18; TEMP 36.7; O2SAT 98
[2023-02-20 11:51] LABS: Glucose, Whole Blood 116 mg/dL (60-115)
--- NOTE | 2023-02-20 14:43 | PM.PNNEP ---
Subjective Subjective Date of Service: 02/20/23 Interval history: CXs now no growth. Can get permcath back. Physical Exam Vital Signs: Vital Signs: Last Vital Signs Temp 98.1 F 02/20/23 11:32 Pulse 73 02/20/23 11:32 Resp 18 02/20/23 11:32 BP 118/65 02/20/23 11:32 Pulse Ox 98 02/20/23 11:32 O2 Del Method Room Air 02/20/23 11:32 O2 Flow Rate 1.0 02/17/23 07:41 BMI result Body Mass Index 30.8 Const: General: comfortable and awake Orientation/consciousness: patient oriented x3 Eyes: Conjunctivae: conjunctivae normal Resp: Auscultation: clear to auscultation bilaterally GI: Palpation (GI): Soft to palpation and nontender Neuro: General: patient oriented x3 Objective Data Labs 02/18/23 05:11 02/20/23 05:30 Labs: Laboratory Results - last 24 hr 02/19/23 02/19/23 02/19/23 15:50 16:21 19:51 Sodium Potassium Chloride Carbon Dioxide Anion Gap BUN Creatinine Estim Creat Clear Calc Estimated GFR POC Glucose 289 H 140 H Random Glucose Estimat Average Glucose Hemoglobin A1c % Calcium Random Vancomycin 14.3 L 02/20/23 02/20/23 02/20/23 05:30 05:30 07:28 Sodium 139 Potassium 3.7 Chloride 104 Carbon Dioxide 18 L Anion Gap 21 H BUN 47 H Creatinine 7.47 H* Estim Creat Clear Calc 11.9 Estimated GFR 7 POC Glucose 153 H Random Glucose 153 H Estimat Average Glucose 180 Hemoglobin A1c % 7.9 Calcium 9.3 D Random Vancomycin 02/20/23 11:31 Sodium Potassium Chloride Carbon Dioxide Anion Gap BUN Creatinine Estim Creat Clear Calc Estimated GFR POC Glucose 116 H Random Glucose Estimat Average Glucose Hemoglobin A1c % Calcium Random Vancomycin Microbiology Microbiology Results: Microbiology 02/19/23 05:54 Blood - Venous Blood Culture - Preliminary No growth after 24 hours. 02/18/23 05:11 Blood - Venous Blood Culture - Preliminary No growth after 48 hours. 02/15/23 22:06 Blood - Venous Blood Culture - Preliminary Staphylococcus aureus 02/17/23 09:45 Blood - Venous Blood Culture - Preliminary No growth after 48 hours. 02/17/23 09:45 Blood - Venous Blood Culture - Preliminary No growth after 48 hours. 02/15/23 22:06 Blood - Venous Blood Culture - Preliminary Staphylococcus aureus Procedures Date of Service Date of Service: 02/20/23 Assessment & Plan Assessment and plan (1) Sepsis: Status: Acute (2) ESRD on dialysis: Status: Acute Plan 67-year-old man with ESRD and sepsis. Permcath removed preempatively for sepsis Cultures so far negative temp line in place for iHD Plan HD per [facility] schedule currently using a temp line BCx of late 48 hours neg. Please call IR for permcath. Remove temp line after permcath is in. sepsis work up Time Spent With Patient Time: Total time managing care of this patient today ____ minutes. Progress Note: Quality Stroke Does the patient have a stroke diagnosis?: No
[2023-02-20 15:49] VITALS: BP 133/73; PULSE 78; RESP 20; TEMP 36.3; O2SAT 95
[2023-02-20 16:16] LABS: Glucose, Whole Blood 158 mg/dL (60-115)
[2023-02-20 19:45] VITALS: BP 130/72; PULSE 77; RESP 20; TEMP 36.3; O2SAT 96
[2023-02-20 20:53] LABS: Glucose, Whole Blood 143 mg/dL (60-115)
[2023-02-21 01:38] VITALS: BP 126/59; PULSE 74; RESP 18; TEMP 36.3; O2SAT 96
[2023-02-21] MEDS: Levothyroxine Sodium 75 MCG TABLET PO (05:34)
[2023-02-21 05:38] VITALS: BMI 30.9
[2023-02-21 06:39] LABS: Anion Gap 23 (12-20); Blood Urea Nitrogen 62 mg/dL (9-16); Calcium 9.2 mg/dL (8.4-10.2); Carbon Dioxide 16 mmol/L (22-29); Chloride 103 mmol/L (96-108); Creatinine Clr Calc Pharmacy 10.2; Estimated Glomerular Filt Rate 6; Glucose Random 131 mg/dL (60-115); Potassium 3.7 mmol/L (3.3-5.1); Sodium 138 mmol/L (135-145)
[2023-02-21 08:00] VITALS: BP 137/69; PULSE 73; RESP 18; TEMP 36.2; O2SAT 98
[2023-02-21 08:20] LABS: Glucose, Whole Blood 148 mg/dL (60-115)
[2023-02-21] MEDS: Heparin Sodium,Porcine 5,000 UNIT/ML VIAL 5000 UNIT SUBCUT ×2 (09:45→21:46)
[2023-02-21] MEDS: Atorvastatin Calcium 40 MG TABLET PO (09:45)
[2023-02-21] MEDS: Sertraline HCL 25 MG TABLET PO (09:45)
[2023-02-21] MEDS: 0.9 % Sodium Chloride Flush 3 ML SYRINGE IVFLUSH ×2 (09:45→15:32)
--- NOTE | 2023-02-21 11:15 | HO.PM.IMPN ---
Subjective Subjective Date of Service: 02/21/23 Interval History: seen and examined this morning follow up for line bactermia Review of Systems Review of Systems: Yes all other systems are reviewed and are negative Constitutional Constitutional: Denies chills and Denies fever(s) Cardiovascular Cardiovascular: Denies chest pain, Denies palpitations and Denies dyspnea Respiratory Respiratory: Denies cough and Denies dyspnea Gastrointestinal Gastrointestinal: Denies abdominal pain Endocrine Endocrine: Denies palpitations Physical Exam Vital Signs: Vital Signs: Last Vital Signs Temp 97.1 F 02/21/23 08:00 Pulse 73 02/21/23 08:00 Resp 18 02/21/23 08:00 BP 137/69 02/21/23 08:00 Pulse Ox 98 02/21/23 08:00 O2 Del Method Room Air 02/21/23 08:00 O2 Flow Rate 1.0 02/17/23 07:41 BMI result Body Mass Index 30.9 Appearing in no acute distress lung sounds are clear to auscultation heart regular rate rhythm, clear S1, S2 positive bowel sounds, abdomen is soft, nontender neuro patient is alert x3, no focal deficits Objective Data Active Medications Acetaminophen (Acetaminophen 325 Mg Tablet) 650 mg PO Q6H PRN PRN Reason: Pain, Mild (Pain Scale 1-3) Atorvastatin Calcium (Atorvastatin Calcium 40 Mg Tablet) 40 mg PO DAILY [facility] Last Admin: 02/21/23 09:45 Dose: 40 mg Documented By: JULIAN Dextrose (Dextrose 50 % 25 Gm/50 Ml Syringe) 25 gm IVPUSH Q15M PRN; Protocol PRN Reason: per Hypoglycemia Standing Ord. Glucose (Glucose Gel 15 Gm Gel..Gram.) 15 gm PO Q15M PRN; Protocol PRN Reason: per Hypoglycemia Standing Ord. Heparin Sodium (Porcine) (Heparin Sodium,Porcine 5,000 Unit/Ml Vial) 5,000 unit SUBCUT Q12H [facility] Last Admin: 02/21/23 09:45 Dose: 5,000 unit Documented By: JULIAN Vancomycin HCl 500 mg/ Sodium (Chloride) 110 mls @ 110 mls/hr IV MoWeFr@2000 [facility] Insulin Human Lispro (Insulin Lispro 100 Unit/Ml 3 Ml Vial) 0 unit SUBCUT QIDACHS [facility]; Protocol Last Admin: 02/21/23 08:26 Dose: Not Given Documented By: JULIAN Non-Admin Reason: No Insulin Coverage Levothyroxine Sodium (Levothyroxine Sodium 75 Mcg Tablet) 75 mcg PO DAILY@0600 [facility] Last Admin: 02/21/23 05:34 Dose: 75 mcg Documented By: JD Melatonin (Melatonin 3 Mg Tablet) 6 mg PO BEDTIME PRN PRN Reason: Insomnia Ondansetron HCl (Ondansetron Hcl 4 Mg/2 Ml Vial) 4 mg IVPUSH Q8H PRN PRN Reason: Nausea and Vomiting Last Admin: 02/16/23 16:16 Dose: 4 mg Documented By: MADELINE Pharmacy Consult (Consult Rx Perform Med Rec) 1 each MISCELLANE ONCE PRN PRN Reason: Consult order Pharmacy Consult (Consult Rx Vancomycin Dosing) 1 each MISCELLANE DAILY PRN PRN Reason: Consult order Sertraline HCl (Sertraline Hcl 25 Mg Tablet) 25 mg PO DAILY [facility] Last Admin: 02/21/23 09:45 Dose: 25 mg Documented By: JULIAN Sodium Chloride (0.9 % Sodium Chloride Flush 3 Ml Syringe) 3 ml IVFLUSH QSHIFT [facility] Last Admin: 02/21/23 09:45 Dose: 3 ml Documented By: JULIAN Labs 02/18/23 05:11 02/21/23 05:24 Labs: Laboratory Results - last 24 hr 02/20/23 02/20/23 02/20/23 11:31 16:08 20:43 Anion Gap Estim Creat Clear Calc Estimated GFR POC Glucose 116 H 158 H 143 H Random Glucose Calcium 02/21/23 02/21/23 05:24 08:14 Anion Gap 23 H Estim Creat Clear Calc 10.2 Estimated GFR 6 POC Glucose 148 H Random Glucose 131 H Calcium 9.2 Microbiology Microbiology Results: Microbiology 02/19/23 05:54 Blood Culture - Preliminary Blood - Venous No growth after 48 hours. 02/18/23 05:11 Blood Culture - Preliminary Blood - Venous No growth after 48 hours. Assessment and Plan (1) Staphylococcus aureus bacteremia: Status: Acute (2) Line sepsis associated with dialysis catheter: Status: Acute Plan 67 year old male with history bioprosthetic aortic valve replacement, CAD s/p CABG, h/o nephrotic syndrome with ESRD on dialysis MWF, hld, htn, hypothyroidism, HFpEF, and mood disorder admitted for line sepsis at [facility] site with admission to ICU on 02/16 and stepdown to hospitalist service on 02/17 following placement of temporary IJ central catheter. He is now with positive blood cultures x 2. Line sepsis at [facility] site permcath removed erythema improved. WBC normalized, afebrile Continue vanco Final blood cultures neg after [address] new permacath, ordered Staph aureus bacteremia preliminary cultures x 2 positive for staph aureus, sensitivities still pending - need to be re-run per micro. presumed MSSA as previously had the same, but final sensitivities anticipated sometime today Continue IV vanco after HD Echo showed no vegetation seen by ID, rec 4 weeks of IV vancomycin (end mar 17) dosed per dialysis schedule ESRD on dialysis due to nephrotic syndrome- non-oliguric permacath removed as above, temp catheter placed in left IJ in ICU Continue dialysis MWF Nephrology following Chronic normocytic anemia- likely r/t chronic disease H/H stable, above transfusion threshold monitor cbc HTN bps soft, hold losartan for now Hypothyroidism continue synthroid CAD/HLD no chest pain continue statin HFpEF euvolumeic on torsemide at baseline, resume when bp allows mood sertraline HLD statin DVT prophylaxis- heparin Full code attending - Dr Levin Pt requires ongoing inpt stay for management of line sepsis at [facility] site now with rajat aureus bacteremia requiring IV abx, repeat blood cultures and expert consultation and will likely require PICC line placement pending negative BC for terminal carman abx. Time Spent With Patient Time: Total time managing care of this patient today ____ minutes. Quality Stroke Does the patient have a stroke diagnosis?: No VTE Prior VTE?: No VTE Risk Level:: Medical - moderate - high VTE Device Contraindication: N/A - Device Ordered VTE Drug Contraindication: N/A - Med Ordered
--- NOTE | 2023-02-21 11:23 | PM.PNNEP ---
Subjective Subjective Date of Service: 02/21/23 Interval history: awaiting permcath tomorrow Physical Exam Vital Signs: Vital Signs: Last Vital Signs Temp 97.1 F 02/21/23 08:00 Pulse 73 02/21/23 08:00 Resp 18 02/21/23 08:00 BP 137/69 02/21/23 08:00 Pulse Ox 98 02/21/23 08:00 O2 Del Method Room Air 02/21/23 08:00 O2 Flow Rate 1.0 02/17/23 07:41 BMI result Body Mass Index 30.9 Const: General: comfortable and awake Orientation/consciousness: patient oriented x3 Eyes: Conjunctivae: conjunctivae normal Resp: Auscultation: clear to auscultation bilaterally GI: Palpation (GI): Soft to palpation and nontender Neuro: General: patient oriented x3 Objective Data Labs 02/18/23 05:11 02/21/23 05:24 Labs: Laboratory Results - last 24 hr 02/20/23 02/20/23 02/20/23 11:31 16:08 20:43 Sodium Potassium Chloride Carbon Dioxide Anion Gap BUN Creatinine Estim Creat Clear Calc Estimated GFR POC Glucose 116 H 158 H 143 H Random Glucose Calcium 02/21/23 02/21/23 05:24 08:14 Sodium 138 Potassium 3.7 Chloride 103 Carbon Dioxide 16 L Anion Gap 23 H BUN 62 H Creatinine 8.69 H* Estim Creat Clear Calc 10.2 Estimated GFR 6 POC Glucose 148 H Random Glucose 131 H Calcium 9.2 Microbiology Microbiology Results: Microbiology 02/19/23 05:54 Blood - Venous Blood Culture - Preliminary No growth after 48 hours. 02/18/23 05:11 Blood - Venous Blood Culture - Preliminary No growth after 48 hours. 02/15/23 22:06 Blood - Venous Blood Culture - Preliminary Staphylococcus aureus 02/17/23 09:45 Blood - Venous Blood Culture - Preliminary No growth after 48 hours. 02/17/23 09:45 Blood - Venous Blood Culture - Preliminary No growth after 48 hours. 02/15/23 22:06 Blood - Venous Blood Culture - Preliminary Staphylococcus aureus Procedures Date of Service Date of Service: 02/21/23 Assessment & Plan Assessment and plan (1) Sepsis: Status: Acute (2) ESRD on dialysis: Status: Acute Plan 67-year-old man with ESRD and sepsis. Permcath removed for bacteremia. Repeat Cultures so far negative temp line in place for iHD Plan HD per MWF schedule currently using a temp line BCx of late 48 hours neg. Please call IR for permcath. Remove temp line after permcath is in. vanco 500mg after each HD session. The rounding provider on wednesday will need to call outpatient dialysis unit and confirm Vanco 500mg MWF until Mar 17 Time Spent With Patient Time: Total time managing care of this patient today ____ minutes. Progress Note: Quality Stroke Does the patient have a stroke diagnosis?: No
[2023-02-21 12:02] LABS: Glucose, Whole Blood 112 mg/dL (60-115)
--- NOTE | 2023-02-21 13:32 | HE.PHANOTE ---
RE AMISH NO DOSE TODAY SINCE NO DIALYSIS. WILL PUT IN LEVEL FOR TOMORROW
[2023-02-21 16:00] VITALS: BP 123/62; PULSE 80; RESP 18; TEMP 36.4; O2SAT 100
[2023-02-21 17:00] LABS: Glucose, Whole Blood 127 mg/dL (60-115)
[2023-02-21 20:00] VITALS: BP 140/70; PULSE 71; RESP 17; TEMP 36.6; O2SAT 97
[2023-02-21 20:46] LABS: Glucose, Whole Blood 159 mg/dL (60-115)
[2023-02-21] MEDS: Insulin Lispro 100 UNIT/ML 3 ML VIAL SUBCUT (21:46)
[2023-02-22] VITALS: BP 128/62; PULSE 73; RESP 17; TEMP 36.6; O2SAT 96
--- NOTE | 2023-02-22 01:50 | PC.NURSE ---
pt was in ICU for low BP, now resolved and walks frequently to the BR with walker. pt seems steady at this point. supervision to Independently moving around in the room. Low fall risk at this time. will CONT monitor any changes.
[2023-02-22] MEDS: 0.9 % Sodium Chloride Flush 3 ML SYRINGE IVFLUSH ×4 (02:20→23:54)
[2023-02-22 04:00] VITALS: BP 139/66; PULSE 74; RESP 17; TEMP 36.4; O2SAT 97
[2023-02-22 05:37] VITALS: BMI 31.0
[2023-02-22] MEDS: Levothyroxine Sodium 75 MCG TABLET PO (05:54)
[2023-02-22 07:15] VITALS: BP 131/64; PULSE 72; RESP 18; TEMP 36.4; O2SAT 98
[2023-02-22 07:29] LABS: Glucose, Whole Blood 121 mg/dL (60-115)
--- NOTE | 2023-02-22 08:23 | HO.PM.IMPN ---
Subjective Subjective Date of Service: 02/22/23 Interval History: seen and examined this morning follow up for line bactermia Review of Systems Review of Systems: Yes all other systems are reviewed and are negative Constitutional Constitutional: Denies chills and Denies fever(s) Cardiovascular Cardiovascular: Denies chest pain, Denies palpitations and Denies dyspnea Respiratory Respiratory: Denies cough and Denies dyspnea Gastrointestinal Gastrointestinal: Denies abdominal pain Endocrine Endocrine: Denies palpitations Physical Exam Vital Signs: Vital Signs: Last Vital Signs Temp 97.6 F 02/22/23 07:15 Pulse 72 02/22/23 07:15 Resp 18 02/22/23 07:15 BP 131/64 02/22/23 07:15 Pulse Ox 98 02/22/23 07:15 O2 Del Method Room Air 02/22/23 07:15 O2 Flow Rate 1.0 02/17/23 07:41 BMI result Body Mass Index 31.0 Appearing in no acute distress lung sounds are clear to auscultation heart regular rate rhythm, clear S1, S2 positive bowel sounds, abdomen is soft, nontender neuro patient is alert x3, no focal deficits Objective Data Active Medications Acetaminophen (Acetaminophen 325 Mg Tablet) 650 mg PO Q6H PRN PRN Reason: Pain, Mild (Pain Scale 1-3) Atorvastatin Calcium (Atorvastatin Calcium 40 Mg Tablet) 40 mg PO DAILY [facility] Last Admin: 02/22/23 07:21 Dose: Not Given Documented By: JESSICA Non-Admin Reason: NPO Dextrose (Dextrose 50 % 25 Gm/50 Ml Syringe) 25 gm IVPUSH Q15M PRN; Protocol PRN Reason: per Hypoglycemia Standing Ord. Glucose (Glucose Gel 15 Gm Gel..Gram.) 15 gm PO Q15M PRN; Protocol PRN Reason: per Hypoglycemia Standing Ord. Heparin Sodium (Porcine) (Heparin Sodium,Porcine 5,000 Unit/Ml Vial) 5,000 unit SUBCUT Q12H [facility] Last Admin: 02/22/23 07:21 Dose: Not Given Documented By: JESSICA Non-Admin Reason: permacath to be placed today Vancomycin HCl 500 mg/ Sodium (Chloride) 110 mls @ 110 mls/hr IV MoWeFr@2000 [facility] Insulin Human Lispro (Insulin Lispro 100 Unit/Ml 3 Ml Vial) 0 unit SUBCUT QIDACHS [facility]; Protocol Last Admin: 02/22/23 07:20 Dose: Not Given Documented By: JESSICA Non-Admin Reason: No Access Levothyroxine Sodium (Levothyroxine Sodium 75 Mcg Tablet) 75 mcg PO DAILY@0600 [facility] Last Admin: 02/22/23 05:54 Dose: 75 mcg Documented By: JD Melatonin (Melatonin 3 Mg Tablet) 6 mg PO BEDTIME PRN PRN Reason: Insomnia Ondansetron HCl (Ondansetron Hcl 4 Mg/2 Ml Vial) 4 mg IVPUSH Q8H PRN PRN Reason: Nausea and Vomiting Last Admin: 02/16/23 16:16 Dose: 4 mg Documented By: MADELINE Pharmacy Consult (Consult Rx Perform Med Rec) 1 each MISCELLANE ONCE PRN PRN Reason: Consult order Pharmacy Consult (Consult Rx Vancomycin Dosing) 1 each MISCELLANE DAILY PRN PRN Reason: Consult order Sertraline HCl (Sertraline Hcl 25 Mg Tablet) 25 mg PO DAILY [facility] Last Admin: 02/22/23 07:21 Dose: Not Given Documented By: JESSICA Non-Admin Reason: NPO Sodium Chloride (0.9 % Sodium Chloride Flush 3 Ml Syringe) 3 ml IVFLUSH QSHIFT [facility] Last Admin: 02/22/23 07:21 Dose: 3 ml Documented By: JESSICA Labs 02/18/23 05:11 02/21/23 05:24 Labs: Laboratory Results - last 24 hr 02/21/23 02/21/23 02/21/23 11:46 16:42 20:38 POC Glucose 112 127 H 159 H 02/22/23 07:18 POC Glucose 121 H Microbiology Microbiology Results: Microbiology 02/19/23 05:54 Blood Culture - Preliminary Blood - Venous No growth after 48 hours. Assessment and Plan (1) Staphylococcus aureus bacteremia: Status: Acute (2) Line sepsis associated with dialysis catheter: Status: Acute Plan 67 year old male with history bioprosthetic aortic valve replacement, CAD s/p CABG, h/o nephrotic syndrome with ESRD on dialysis MWF, hld, htn, hypothyroidism, HFpEF, and mood disorder admitted for line sepsis at [facility] with admission to ICU on 02/16 and stepdown to hospitalist service on 02/17 following placement of temporary IJ central catheter. He is now with positive blood cultures x 2. Line sepsis at permacath site permcath removed erythema improved. WBC normalized, afebrile Continue vanco Final blood cultures neg after 48 hrs, plan for permacath today Staph aureus bacteremia Final culture still pending Continue IV vanco after HD 500 mg IV Wednesday and Wednesday Echo showed no vegetation seen by ID, rec 4 weeks of IV vancomycin (end mar 17) dosed per dialysis schedule ESRD on dialysis due to nephrotic syndrome- non-oliguric Continue dialysis MWF New PermCath placement planned for today Chronic normocytic anemia- likely r/t chronic disease H/H stable, above transfusion threshold monitor cbc HTN bps soft, hold losartan for now Hypothyroidism continue synthroid CAD/HLD no chest pain continue statin HFpEF euvolumeic on torsemide at baseline, resume when bp allows mood sertraline HLD statin DVT prophylaxis- heparin Full code attending - Dr Squires Disposition. Discharge after final blood cultures have resulted and PermCath placed Pt requires ongoing inpt stay for management of line sepsis at [facility] site now with rajat aureus bacteremia requiring IV abx, repeat blood cultures and expert consultation and will likely require PICC line placement pending negative BC for [employer] abx. Time Spent With Patient Time: Total time managing care of this patient today ____ minutes. Quality Stroke Does the patient have a stroke diagnosis?: No VTE Prior VTE?: No VTE Risk Level:: Medical - moderate - high VTE Device Contraindication: N/A - Device Ordered VTE Drug Contraindication: N/A - Med Ordered
--- NOTE | 2023-02-22 08:59 | MHC.CLN ---
NUTRITION CURRENLTY NPO FOR PERMACATH PLACEMENT. ESRD ON HEMODIALYSIS. RESUME DIET WHEN ABLE: DIABETIC 1800 KCALS, 2 GRAM SODIUM, LOW PHOSPHORUS, LOW POTASSIUM.
[2023-02-22 09:23] LABS: Prothrombin Time 11.8 SEC (11.1-13.3)
--- NOTE | 2023-02-22 10:11 | P.PNNP_ITS ---
Subjective Subjective Date of Service: 02/23/23 Interval history: Events noted follow up for line bactremia Physical Exam Vital Signs: Vital Signs: Last Vital Signs Temp 97.6 F 02/22/23 07:15 Pulse 72 02/22/23 07:15 Resp 18 02/22/23 07:15 BP 131/64 02/22/23 07:15 Pulse Ox 98 02/22/23 07:15 O2 Del Method Room Air 02/22/23 07:15 O2 Flow Rate 1.0 02/17/23 07:41 BMI result Body Mass Index 31.0 Const: General: comfortable and awake Orientation/consciousness: patient or iented x3 Eyes: Conjunctivae: conjunctivae normal Resp: Auscultation: clear to auscultation bilaterally GI: Palpation (GI): Soft to palpation and nontender Neuro: General: patient oriented x3 Objective Data Labs 02/18/23 05:11 02/21/23 05:24 Labs: Laboratory Results - last 24 hr 02/21/23 02/21/23 02/21/23 11:46 16:42 20:38 PT INR POC Glucose 112 127 H 159 H 02/22/23 02/22/23 07:18 09:09 PT 11.8 INR 1.0 POC Glucose 121 H Microbiology Microbiology Results: Microbiology 02/19/23 05:54 Blood - Venous Blood Culture - Preliminary No growth after 48 hours. 02/18/23 05:11 Blood - Venous Blood Culture - Preliminary No growth after 48 hours. 02/15/23 22:06 Blood - Venous Blood Culture - Preliminary Staphylococcus aureus 02/17/23 09:45 Blood - Venous Blood Culture - Preliminary No growth after 48 hours. 02/17/23 09:45 Blood - Venous Blood Culture - Preliminary No growth after 48 hours. 02/15/23 22:06 Blood - Venous Blood Culture - Preliminary Staphylococcus aureus Procedures Date of Service Date of Service: 02/23/23 Assessment & Plan Assessment and plan (1) Sepsis: Status: Acute (2) ESRD on dialysis: Status: Acute Plan 67-year-old man with ESRD and sepsis. Recommendation Status post removal of PermCath. Follow blood cultures and continue antibiotics HD via temporary dialysis catheter HD today PermCath can be reinserted today OK to DC post permcath and temp line needs t o be removed post permcath We will follow along with the team. Thank you Time Spent With Patient Time: Total time managing care of this patient today ____ minutes. Progress Note: Quality Stroke Does the patient have a stroke diagnosis?: No
[2023-02-22 11:28] LABS: Glucose, Whole Blood 104 mg/dL (60-115)
--- NOTE | 2023-02-22 13:29 | MHC.CM.PN ---
EMR REVIEWED AND PER MD ROUNDS , PT WILL HAVE NEW PERMACATH INSERTED TODAY, POSSIBLE DC TOMORROW. CM WILL CONTINUE TO FOLLOW FOR DC NEEDS/PLAN.
[2023-02-22 15:49] LABS: Glucose, Whole Blood 99 mg/dL (60-115)
--- NOTE | 2023-02-22 16:30 | PC.NURSE ---
Left neck drsg intact,small old stain present,right chest perma-cath intact,drsg intact,no crepitus
[2023-02-22 21:15] LABS: Glucose, Whole Blood 126 mg/dL (60-115)
[2023-02-22 21:21] VITALS: BP 123/55; PULSE 83; RESP 19; TEMP 37; O2SAT 100
[2023-02-22] MEDS: Heparin Sodium,Porcine 5,000 UNIT/ML VIAL 5000 UNIT SUBCUT (21:28)
[2023-02-22 22:40] LABS: Vancomycin Trough 11.7 mcg/mL (10.0-20.0)
[2023-02-22] MEDS: vancomycin HCL 500 MG in 0.9 % Sodium Chloride 100 ML 110 MG IV (22:53)
[2023-02-23 03:48] VITALS: BP 124/58; PULSE 75; RESP 16; TEMP 36.2; O2SAT 97
[2023-02-23 06:00] VITALS: RESP 18; BMI 31.1
[2023-02-23] MEDS: Levothyroxine Sodium 75 MCG TABLET PO (06:00)
[2023-02-23 07:09] VITALS: BP 130/64; PULSE 72; RESP 18; TEMP 36.6; O2SAT 97
[2023-02-23 07:22] LABS: Glucose, Whole Blood 95 mg/dL (60-115)
[2023-02-23 09:22] LABS: Anion Gap 17 (12-20); Blood Urea Nitrogen 46 mg/dL (9-16); Calcium 8.6 mg/dL (8.4-10.2); Carbon Dioxide 19 mmol/L (22-29); Chloride 105 mmol/L (96-108); Creatinine Clr Calc Pharmacy 12.2; Estimated Glomerular Filt Rate 8; Glucose Random 95 mg/dL (60-115); Potassium 3.7 mmol/L (3.3-5.1); Sodium 137 mmol/L (135-145)
[2023-02-23] MEDS: Atorvastatin Calcium 40 MG TABLET PO (09:48)
[2023-02-23] MEDS: Sertraline HCL 25 MG TABLET PO (09:48)
[2023-02-23] MEDS: Heparin Sodium,Porcine 5,000 UNIT/ML VIAL 5000 UNIT SUBCUT ×2 (09:48→20:16)
[2023-02-23] MEDS: 0.9 % Sodium Chloride Flush 3 ML SYRINGE IVFLUSH ×3 (09:48→23:17)
--- NOTE | 2023-02-23 10:16 | PM.PNNEP ---
Subjective Subjective Date of Service: 02/24/23 Interval history: Events noted s.p Permcath Physical Exam Vital Signs: Vital Signs: Last Vital Signs Temp 97.8 F 02/23/23 07:09 Pulse 72 02/23/23 07:09 Resp 18 02/23/23 07:09 BP 130/64 02/23/23 07:09 Pulse Ox 97 02/23/23 07:09 O2 Del Method Room Air 02/23/23 07:09 O2 Flow Rate 1.0 02/17/23 07:41 BMI result Body Mass Index 31.1 Const: General: comfortable and awake Orientation/consciousness: patient oriented x3 Eyes: Conjunctivae: conjunctivae normal Resp: Auscultation: clear to auscultation bilaterally GI: Palpation (GI): Soft to palpation and nontender Neuro: General: patient oriented x3 Objective Data Labs 02/18/23 05:11 02/23/23 08:04 Labs: Laboratory Results - last 24 hr 02/22/23 02/22/23 02/22/23 11:21 15:43 15:50 Sodium Potassium Chloride Carbon Dioxide Anion Gap BUN Creatinine Estim Creat Clear Calc Estimated GFR POC Glucose 104 99 Random Glucose Calcium Vancomycin Trough Random Vancomycin 13.0 L 02/22/23 02/22/23 02/23/23 21:11 22:13 07:13 Sodium Potassium Chloride Carbon Dioxide Anion Gap BUN Creatinine Estim Creat Clear Calc Estimated GFR POC Glucose 126 H 95 Random Glucose Calcium Vancomycin Trough 11.7 Random Vancomycin 02/23/23 08:04 Sodium 137 Potassium 3.7 Chloride 105 Carbon Dioxide 19 L Anion Gap 17 BUN 46 H Creatinine 7.29 H* Estim Creat Clear Calc 12.2 Estimated GFR 8 POC Glucose Random Glucose 95 Calcium 8.6 D Vancomycin Trough Random Vancomycin Microbiology Microbiology Results: Microbiology 02/18/23 05:11 Blood - Venous Blood Culture - Final No growth after 5 days. 02/17/23 09:45 Blood - Venous Blood Culture - Final No growth after 5 days. 02/17/23 09:45 Blood - Venous Blood Culture - Final No growth after 5 days. 02/19/23 05:54 Blood - Venous Blood Culture - Preliminary No growth after 48 hours. 02/15/23 22:06 Blood - Venous Blood Culture - Preliminary Staphylococcus aureus 02/15/23 22:06 Blood - Venous Blood Culture - Preliminary Staphylococcus aureus Procedures Date of Service Date of Service: 02/24/23 Assessment & Plan Assessment and plan (1) Sepsis: Status: Acute (2) ESRD on dialysis: Status: Acute Plan 67-year-old man with ESRD and sepsis. Recommendation Status post removal of PermCath. Follow blood cultures and continue antibiotics HD via temporary dialysis catheter PermCath reinserted 02/22/23 OK to DC We will follow along with the team. Thank you Time Spent With Patient Time: Total time managing care of this patient today ____ minutes. Progress Note: Quality Stroke Does the patient have a stroke diagnosis?: No
[2023-02-23 11:09] LABS: Glucose, Whole Blood 212 mg/dL (60-115)
[2023-02-23] MEDS: Insulin Lispro 100 UNIT/ML 3 ML VIAL SUBCUT ×2 (11:34→20:16)
[2023-02-23 14:00] VITALS: BP 148/70; PULSE 79; RESP 18; TEMP 37; O2SAT 97
--- NOTE | 2023-02-23 14:55 | HO.PM.IMPN ---
Subjective Subjective Date of Service: 02/23/23 Interval History: [facility],Staph aureus bacteremia Review of Systems Denies any chest pain or shortness of breath or fever or chills. Physical Exam Vital Signs: Vital Signs: Last Vital Signs Temp 97.8 F 02/23/23 07:09 Pulse 72 02/23/23 07:09 Resp 18 02/23/23 07:09 BP 130/64 02/23/23 07:09 Pulse Ox 97 02/23/23 07:09 O2 Del Method Room Air 02/23/23 07:09 O2 Flow Rate 1.0 02/17/23 07:41 BMI result Body Mass Index 31.1 Appearing in no acute distress ?lung sounds are clear to auscultation ?heart regular rate rhythm, clear? S1, S2 ?positive bowel sounds, abdomen is soft, nontender ?neuro patient is alert x3, no focal deficits Objective Data Active Medications Acetaminophen (Acetaminophen 325 Mg Tablet) 650 mg PO Q6H PRN PRN Reason: Pain, Mild (Pain Scale 1-3) Atorvastatin Calcium (Atorvastatin Calcium 40 Mg Tablet) 40 mg PO DAILY [facility] Last Admin: 02/23/23 09:48 Dose: 40 mg Documented By: ROSA Dextrose (Dextrose 50 % 25 Gm/50 Ml Syringe) 25 gm IVPUSH Q15M PRN; Protocol PRN Reason: per Hypoglycemia Standing Ord. Glucose (Glucose Gel 15 Gm Gel..Gram.) 15 gm PO Q15M PRN; Protocol PRN Reason: per Hypoglycemia Standing Ord. Heparin Sodium (Porcine) (Heparin Sodium,Porcine 5,000 Unit/Ml Vial) 5,000 unit SUBCUT Q12H [facility] Last Admin: 02/23/23 09:48 Dose: 5,000 unit Documented By: ROSA Vancomycin HCl 500 mg/ Sodium (Chloride) 110 mls @ 110 mls/hr IV MoWeFr@2000 [facility] Insulin Human Lispro (Insulin Lispro 100 Unit/Ml 3 Ml Vial) 0 unit SUBCUT QIDACHS [facility]; Protocol Last Admin: 02/23/23 11:34 Dose: 4 unit Documented By: ROSA Levothyroxine Sodium (Levothyroxine Sodium 75 Mcg Tablet) 75 mcg PO DAILY@0600 [facility] Last Admin: 02/23/23 06:00 Dose: 75 mcg Documented By: SHELLY Melatonin (Melatonin 3 Mg Tablet) 6 mg PO BEDTIME PRN PRN Reason: Insomnia Ondansetron HCl (Ondansetron Hcl 4 Mg/2 Ml Vial) 4 mg IVPUSH Q8H PRN PRN Reason: Nausea and Vomiting Last Admin: 02/16/23 16:16 Dose: 4 mg Documented By: MADELINE Pharmacy Consult (Consult Rx Perform Med Rec) 1 each MISCELLANE ONCE PRN PRN Reason: Consult order Pharmacy Consult (Consult Rx Vancomycin Dosing) 1 each MISCELLANE DAILY PRN PRN Reason: Consult order Sertraline HCl (Sertraline Hcl 25 Mg Tablet) 25 mg PO DAILY [facility] Last Admin: 02/23/23 09:48 Dose: 25 mg Documented By: ROSA Sodium Chloride (0.9 % Sodium Chloride Flush 3 Ml Syringe) 3 ml IVFLUSH QSHIFT [facility] Last Admin: 02/23/23 09:48 Dose: 3 ml Documented By: ROSA Labs 02/18/23 05:11 02/23/23 08:04 Labs: Laboratory Results - last 24 hr 02/22/23 02/22/23 02/22/23 15:43 15:50 21:11 Anion Gap Estim Creat Clear Calc Estimated GFR POC Glucose 99 126 H Random Glucose Calcium Vancomycin Trough Random Vancomycin 13.0 L 02/22/23 02/23/23 02/23/23 22:13 07:13 08:04 Anion Gap 17 Estim Creat Clear Calc 12.2 Estimated GFR 8 POC Glucose 95 Random Glucose 95 Calcium 8.6 D Vancomycin Trough 11.7 Random Vancomycin 02/23/23 11:05 Anion Gap Estim Creat Clear Calc Estimated GFR POC Glucose 212 H Random Glucose Calcium Vancomycin Trough Random Vancomycin Microbiology Microbiology Results: Microbiology 02/18/23 05:11 Blood Culture - Final Blood - Venous No growth after 5 days. 02/17/23 09:45 Blood Culture - Final Blood - Venous No growth after 5 days. 02/17/23 09:45 Blood Culture - Final Blood - Venous No growth after 5 days. Assessment and Plan (1) Staphylococcus aureus bacteremia: Status: Acute (2) Line sepsis associated with dialysis catheter: Status: Acute Plan 67 year old male with history bioprosthetic aortic valve replacement, CAD s/p CABG, h/o nephrotic syndrome with ESRD on dialysis MWF, hld, htn, hypothyroidism, HFpEF, and mood disorder admitted for line sepsis at [facility] site with admission to ICU on 02/16 and stepdown to hospitalist service on 02/17 following placement of temporary IJ central catheter. He is now with positive blood cultures x 2. Line sepsis at [facility] site permcath removed erythema improved. WBC normalized, afebrile Continue vanco Final blood cultures neg after 48 hrs, plan for permacath today Staph aureus bacteremia Final culture still pending Continue IV vanco after HD 500 mg IV Wednesday and Wednesday Echo showed no vegetation seen by ID, rec 4 weeks of IV vancomycin (end mar 17) dosed per dialysis schedule ESRD on dialysis due to nephrotic syndrome- non-oliguric Continue dialysis MWF New PermCath placement planned for today Chronic normocytic anemia- likely r/t chronic disease H/H stable, above transfusion threshold monitor cbc HTN bps soft, hold losartan for now Hypothyroidism continue synthroid CAD/HLD no chest pain continue statin HFpEF euvolumeic on torsemide at baseline, resume when bp allows mood sertraline HLD statin DVT prophylaxis- heparin Full code attending - Dr Squires Disposition. Discharge after final blood cultures have resulted and PermCath placed Pt requires ongoing inpt stay for management of line sepsis at [facility] site now with rajat aureus bacteremia requiring IV abx, blood culture senstivities -not back yet Time Spent With Patient Time: Total time managing care of this patient today ____ minutes. Quality Stroke Does the patient have a stroke diagnosis?: No VTE Prior VTE?: No VTE Risk Level:: Medical - moderate - high VTE Device Contraindication: N/A - Device Ordered VTE Drug Contraindication: N/A - Med Ordered
--- NOTE | 2023-02-23 15:55 | PC.NURSE ---
Perma-cath right chest drsg partially off ,tegaderm broken in a few places,drsg changed,biopatch applied,patient tolerated it well
[2023-02-23 16:17] LABS: Glucose, Whole Blood 132 mg/dL (60-115)
--- NOTE | 2023-02-23 16:35 | PC.NURSE ---
patient refuses sequentials,risks explained to patient,encouraged activityGayle made aware
[2023-02-23 19:17] VITALS: BP 131/61; PULSE 78; RESP 18; TEMP 36.8; O2SAT 97
[2023-02-23 19:48] LABS: Glucose, Whole Blood 217 mg/dL (60-115)
[2023-02-24 04:01] VITALS: BP 119/57; PULSE 70; RESP 16; TEMP 36.1; O2SAT 99
[2023-02-24 05:15] VITALS: BMI 30.8
[2023-02-24] MEDS: Levothyroxine Sodium 75 MCG TABLET PO (06:04)
[2023-02-24 07:22] LABS: Glucose, Whole Blood 136 mg/dL (60-115)
[2023-02-24 07:59] VITALS: BP 131/65; PULSE 60; RESP 18; TEMP 36.6; O2SAT 98
[2023-02-24] MEDS: Heparin Sodium,Porcine 5,000 UNIT/ML VIAL 5000 UNIT SUBCUT ×2 (08:13→21:15)
[2023-02-24] MEDS: 0.9 % Sodium Chloride Flush 3 ML SYRINGE IVFLUSH ×3 (08:14→23:56)
[2023-02-24] MEDS: Sertraline HCL 25 MG TABLET PO (08:15)
[2023-02-24] MEDS: Atorvastatin Calcium 40 MG TABLET PO (08:15)
[2023-02-24 09:28] LABS: Creatinine Clr Calc Pharmacy 9.2; Estimated Glomerular Filt Rate 6
--- NOTE | 2023-02-24 10:23 | PM.PNNEP ---
Subjective Subjective Date of Service: 02/24/23 Interval history: Line sepsis at permacath site,Staph aureus bacteremia HD today Physical Exam Vital Signs: Vital Signs: Last Vital Signs Temp 97.8 F 02/24/23 07:59 Pulse 60 02/24/23 07:59 Resp 18 02/24/23 07:59 BP 131/65 02/24/23 07:59 Pulse Ox 98 02/24/23 07:59 O2 Del Method Room Air 02/24/23 07:59 O2 Flow Rate 1.0 02/17/23 07:41 BMI result Body Mass Index 30.8 Const: General: comfortable and awake Orientation/consciousness: patient oriented x3 Eyes: Conjunctivae: conjunctivae normal Resp: Auscultation: clear to auscultation bilaterally GI: Palpation (GI): Soft to palpation and nontender Neuro: General: patient oriented x3 Objective Data Labs 02/18/23 05:11 02/24/23 08:30 Labs: Laboratory Results - last 24 hr 02/23/23 02/23/23 02/23/23 11:05 16:10 19:42 Creatinine Estim Creat Clear Calc Estimated GFR POC Glucose 212 H 132 H 217 H 02/24/23 02/24/23 07:15 08:30 Creatinine 9.57 H* Estim Creat Clear Calc 9.2 Estimated GFR 6 POC Glucose 136 H Microbiology Microbiology Results: Microbiology 02/19/23 05:54 Blood - Venous Blood Culture - Final No growth after 5 days. 02/18/23 05:11 Blood - Venous Blood Culture - Final No growth after 5 days. 02/17/23 09:45 Blood - Venous Blood Culture - Final No growth after 5 days. 02/17/23 09:45 Blood - Venous Blood Culture - Final No growth after 5 days. 02/15/23 22:06 Blood - Venous Blood Culture - Preliminary Staphylococcus aureus 02/15/23 22:06 Blood - Venous Blood Culture - Preliminary Staphylococcus aureus Procedures Date of Service Date of Service: 02/24/23 Assessment & Plan Assessment and plan (1) Sepsis: Status: Acute (2) ESRD on dialysis: Status: Acute Plan 67-year-old man with ESRD and sepsis. Recommendation Status post removal of PermCath. Follow blood cultures and continue antibiotics HD via temporary dialysis catheter Repeat Blood c/s negative PermCath reinserted 02/22/23 OK to DC We will follow along with the team. Thank you Time Spent With Patient Time: Total time managing care of this patient today ____ minutes. Progress Note: Quality Stroke Does the patient have a stroke diagnosis?: No
[2023-02-24 11:25] LABS: Glucose, Whole Blood 168 mg/dL (60-115)
[2023-02-24] MEDS: Insulin Lispro 100 UNIT/ML 3 ML VIAL SUBCUT ×3 (12:01→21:15)
--- NOTE | 2023-02-24 13:41 | P.DS_ITS ---
DS: Providers Provider Date of Service: 02/24/23 Date of admission: 02/16/23 06:35 Date of discharge: 02/24/23 Primary care physician: Segundo Tapia MD Consults: 02/17/23 10:28 Consult to Infectious Diseases Routine Consulting Provider: [facility] Infectious Disease Reason for consultation: line sepsis, bacteremia DS: Diagnosis Discharge Diagnosis (1) Sepsis: Status: Acute (2) ESRD on dialysis: Status: Acute DS: Summary Hospital Course Hospital Course: 67-year-old with end-stage renal disease and a right-sided PermCath previously w ith nephrotic syndrome and he is a hypertensive on losartan but still produces urine and is on torsemide 40 mg twice daily who had dialysis yesterday but a temperature of a 103 degrees was noted which climb to 105 with a white count and left shift and patient came in significantly hypotensive and received 2.5 L of IV fluid without any shortness of breath blood pressure improved to 90 systolic but still had a marginally low mean arterial pressure and so I was called and did a bedside echo and I noted the no clearly that he has had coronary bypass grafting surgery 6 months ago and on the echo I sore a bioprosthesis in the aortic position which was done at the same time for aortic stenosis and his LV function is without segmental wall motion abnormality and borderline degree of concentric hypertrophy and an ejection fraction of 50-55% with some degree of postoperative septal paradox and a well functioning clean bioprosthesis in the aortic position with a 2 m/sec peak velocity which is normal no insufficiency no apparent vegetation ?he was awake and alert clinically doing much better since the fluid and was given 1 dose each of vancomycin and cefepime and blood cultures are already latricia wing Gram-positive cocci in clusters presumably this will be Staph but my review of the chest and abdominal and pelvic CT scan showed no source for this and he had no evidence of cellulitis except for the entry point skin around the PermCath catheter which look cellulitic and therefore I believe it is catheter into sepsis and Interventional Radiology needs to remove this catheter AP and then I will place a temporary dialysis catheter to get us through the initial course of antibiotics and when deemed to be sterile will go ahead with another PermCath. Hospital course: Patient was admitted for PermCath site line infection-patient was subsequently started on IV antibiotics and blood cultures sent: Subsequently blood cultures came out to be Staph aureus, repeat blood culture negative. He his PermCath is removed and temporary dialysis catheter placed, patient will be going home- patient will need vancomycin with dialysis. echo -grossly seems fine (please see imaging section). Monitor vanco trough and adjust vancomycin out patiently. Monitor renal function, electrolytes, Vanco level with dialysis. his ct chest incidental findings: Stable 3 mm nodule in the right upper lobe. Per the 2017 revised Fleischner Society guidelines, no routine follow up is necessarily required in low-risk patients, and consideration of [address] is recommended for patients at high-risk for the development of pulmonary neoplasm. plan: complete course of vancomycin 3 more weeks -end date 03/17. Monitor vanco trough and adjust vancomycin out patiently. follow up outpatiently for above (lung nodule) with pcp. Above management discussed with the patient in detail length he understand and in agreement with the above plan, time spent 50 minutes and 50% time spent on counseling. Time Spent with Patient Time attestation: Total time managing care of this patient today ____ minutes. Discharge coordination time: Greater than 30 minutes Quality: Safe Use of Opioids Does Pt have an Active Cancer Diagnosis on the Problem List?: No Quality: Stroke Does the patient have a stroke diagnosis?: No Physical Exam Vital Signs: Vital Signs: Last Vital Signs Temp 97.8 F 02/24/23 07:59 Pulse 60 02/24/23 07:59 Resp 18 02/24/23 07:59 BP 131/65 02/24/23 07:59 Pulse Ox 98 02/24/23 07:59 O2 Del Method Room Air 02/24/23 07:59 O2 Flow Rate 1.0 02/17/23 07:41 BMI result Body Mass Index 30.8 Appearing in no acute distress ?lung sounds are clear to auscultation ?heart regular rate rhythm, clear? S1, S2 ?positive bowel sounds, abdomen is soft, nontender ?neuro patient is alert x3, no focal deficits DS: Data Data Completed and Pending Completed studies during hospitalization [Text1]: Procedures Drainage of Right Pleural Cavity with Drainage Device, Percutaneous Approach (10/28/22) Extraction of Right Inguinal Lymphatic, Percutaneous Approach, Diagnostic (04/23/20) Fluoroscopy of Superior Vena Cava, Guidance (10/28/22) Insertion of Infusion Device into Superior Vena Cava, Percutaneous Approach (10/28/22) Insertion of Tunneled Vascular Access Device into Chest Subcutaneous Tissue and Fascia, Percutaneous Approach (10/28/22) Performance of Urinary Filtration, Intermittent, Less than 6 Hours Per Day (10/28/22) Removal of Infusion Device from Great Vessel, External Approach (10/28/22) Labs on day of discharge: Laboratory Results - last 24 hr 02/23/23 02/23/23 02/24/23 16:10 19:42 07:15 Creatinine Estim Creat Clear Calc Estimated GFR POC Glucose 132 H 217 H 136 H 02/24/23 02/24/23 08:30 11:19 Creatinine 9.57 H* Estim Creat Clear Calc 9.2 Estimated GFR 6 POC Glucose 168 H Imaging Chest x-ray: Radiologist's impression: ITS Impressions Chest X-Ray 02/15/23 23:12 IMPRESSION: * Pulmonary venous congestion without overt edema. * Small bilateral pleural effusions and accompanying atelectasis. Abdomen/Pelvis CT 02/16/23 00:43 IMPRESSION: * No acute findings within the abdomen or pelvis to explain the patient's symptomatology. * Pancolonic diverticulosis without evidence of diverticulitis. * Chronic loculated right pleural effusion and accompanying pleural-parenchymal scarring/round atelectasis. Chest CT 02/16/23 05:45 IMPRESSION: * No acute pneumonic process. * Chronic loculated right pleural effusion with accompanying pleural thickening and pleuroparenchymal scarring/round atelectasis in the dependent right lower lobe. * Scattered calcified granulomata throughout both lungs compatible with prior granulomatous disease. * Stable 3 mm nodule in the right upper lobe. Per the 2017 revised Fleischner Society guidelines, no routine follow up is necessarily required in low-risk patients, and consideration of [address] is recommended for patients at high-risk for the development of pulmonary neoplasm. Tunnelled Catheter Removal 02/16/23 16:30 IMPRESSION: Removal of the tunneled dialysis catheter from the right IJ approach. Chest X-Ray 02/16/23 20:35 IMPRESSION: 1. Left IJ CVC tip projects at the level of the left brachiocephalic junction, not crossing the midline, recommend clinical correlation with appropriate functioning and if indicated repositioning. 2. No pneumothorax. 3. Stable asymmetric haziness of the right mid and lower lung in keeping with chronic loculated pleural effusion with associated atelectasis as visualized on CT from earlier today. Insertion Tunneled Catheter 02/22/23 15:03 IMPRESSION: Right internal jugular 14.5 [place] 19 cm in length glidepath permacath placement. Guidance Ultrasound 02/22/23 15:05 IMPRESSION: Right internal jugular 14.5 [place] 19 cm in length glidepath permacath placement. Echo: Conclusions: - The left ventricular systolic function is normal.? The ? calculated ejection fraction is 63% by biplane method. ? - A bioprosthetic aortic valve is present.? The prosthetic aortic valve appears to be functioning normally.? - No obvious vegetations, but cannot definitively assess ? bioprosthetic aortic valve.? Discharge Plan Discharge Anticipated Discharge Date/Time: 02/24/23 13:02 Patient Disposition: Home, Self-Care Discharge Diagnosis: Staph aureus bacteremia ,Line sepsis at permacath site Referrals: Segundo Tapia MD [Primary Care Provider] - 1 Week Discharge Medications: New vancomycin in 0.9 % sodium chl 500 mg/100 mL piggyback 500 mg IV MOWEFR Qty: 1000 0RF Rx Instructions: end date 03/17 Continued levothyroxine 75 mcg Tablet 75 mcg PO DAILY@0600 atorvastatin 40 mg tablet 40 mg PO DAILY sertraline 25 mg tablet 1 tab PO DAILY losartan 50 mg tablet 50 mg PO DAILY torsemide 20 mg tablet 40 mg PO BID@0900,1400 calcium carbonate [Ultra Strength Antacid] 400 mg calcium (1,000 mg) t ablet,chewable 400 mg PO TID ergocalciferol (vitamin D2) 1,250 mcg (50,000 unit) capsule 1,250 mcg PO FR@0900 sevelamer carbonate 800 mg tablet 1,600 mg PO TID Discontinued sulfamethoxazole-trimethoprim 400-80 mg tablet 1 tab PO ONCE Rx Instructions: END DATE: 02/16/23 Discharge Orders: Discharge Order (Routine); Ordered 02/24/23 Ordered By: Coleman Mclean Diet: Advance to usual diet Activity on Discharge: As tolerated Stand Alone Forms: Patient Portal Discharge page Care Plan Goals: Patient was admitted for PermCath site line infection-patient was subsequently started on IV antibiotics and blood cultures sent: Subsequently blood cultures came out to be Staph aureus, repeat blood culture negative. He his PermCath is removed and temporary dialysis catheter placed, patient will be going home- patient will need vancomycin with dialysis. echo -grossly seems fine (please see imaging section). Monitor vanco trough and adjust vancomycin out patiently. Monitor renal function, electrolytes, Vanco level with dialysis( nephrology aware to moniter labs and antibiotics arrangements). Health Concerns: as above. Plan of Treatment: as above. Assessment: as above.
--- NOTE | 2023-02-24 14:42 | MHC.CM.PN ---
pt dcd home spoke with his father who will pick him after dialysis today at 5:30 dr babcock has arranged with diaylsis to have jia loaiza thru his beth;[facility] to arrange
--- NOTE | 2023-02-24 15:56 | PC.NURSE ---
Patient is in Dialysis since 1244
--- NOTE | 2023-02-24 16:51 | PC.NURSE ---
Patient is back from dialysis,upset and yelling at RN saying that he will leave now if he needs to wait for vancomycin to be administered,or he will stay and be discharged in am ,Dr. Mclean was notified and is ok with patient staying till morning,patient notified and apologized to RN for his behaviour ,stating his parents are elderly and it is to much for them to come and get him at night.
[2023-02-24 17:00] LABS: Glucose, Whole Blood 157 mg/dL (60-115)
[2023-02-24 17:02] LABS: Vancomycin Random 13.3 mcg/mL (15-20)
[2023-02-24 17:04] VITALS: BP 131/69; PULSE 75; RESP 20; TEMP 36.4; O2SAT 99
[2023-02-24] MEDS: vancomycin HCL 500 MG in 0.9 % Sodium Chloride 100 ML 110 MG IV (17:41)
[2023-02-24 19:26] VITALS: BP 133/58; PULSE 68; RESP 18; TEMP 36.4; O2SAT 98
[2023-02-24 20:26] LABS: Glucose, Whole Blood 197 mg/dL (60-115)
--- NOTE | 2023-02-24 22:25 | HO.PM.IMPN ---
Subjective Subjective Date of Service: 02/25/23 Interval History: staph bacteremia Review of Systems no new c/o Physical Exam Vital Signs: Vital Signs: Last Vital Signs Temp 97.5 F 02/24/23 19:26 Pulse 68 02/24/23 19:26 Resp 18 02/24/23 19:26 BP 133/58 L 02/24/23 19:26 Pulse Ox 98 02/24/23 19:26 O2 Del Method Room Air 02/24/23 19:26 O2 Flow Rate 1.0 02/17/23 07:41 BMI result Body Mass Index 30.8 Appearing in no acute distress ?lung sounds are clear to auscultation ?heart regular rate rhythm, clear? S1, S2 ?positive bowel sounds, abdomen is soft, nontender ?neuro patient is alert x3, no focal deficits Objective Data Active Medications Acetaminophen (Acetaminophen 325 Mg Tablet) 650 mg PO Q6H PRN PRN Reason: Pain, Mild (Pain Scale 1-3) Atorvastatin Calcium (Atorvastatin Calcium 40 Mg Tablet) 40 mg PO DAILY [facility] Last Admin: 02/24/23 08:15 Dose: 40 mg Documented By: ROSA Dextrose (Dextrose 50 % 25 Gm/50 Ml Syringe) 25 gm IVPUSH Q15M PRN; Protocol PRN Reason: per Hypoglycemia Standing Ord. Glucose (Glucose Gel 15 Gm Gel..Gram.) 15 gm PO Q15M PRN; Protocol PRN Reason: per Hypoglycemia Standing Ord. Heparin Sodium (Porcine) (Heparin Sodium,Porcine 5,000 Unit/Ml Vial) 5,000 unit SUBCUT Q12H [facility] Last Admin: 02/24/23 21:15 Dose: 5,000 unit Documented By: ALEIDA Vancomycin HCl 500 mg/ Sodium (Chloride) 110 mls @ 110 mls/hr IV MoWeFr@2000 [facility] Insulin Human Lispro (Insulin Lispro 100 Unit/Ml 3 Ml Vial) 0 unit SUBCUT QIDACHS [facility]; Protocol Last Admin: 02/24/23 21:15 Dose: 2 unit Documented By: LAEIDA Levothyroxine Sodium (Levothyroxine Sodium 75 Mcg Tablet) 75 mcg PO DAILY@0600 [facility] Last Admin: 02/24/23 06:04 Dose: 75 mcg Documented By: SHELLY Melatonin (Melatonin 3 Mg Tablet) 6 mg PO BEDTIME PRN PRN Reason: Insomnia Ondansetron HCl (Ondansetron Hcl 4 Mg/2 Ml Vial) 4 mg IVPUSH Q8H PRN PRN Reason: Nausea and Vomiting Last Admin: 02/16/23 16:16 Dose: 4 mg Documented By: MADELINE Pharmacy Consult (Consult Rx Perform Med Rec) 1 each MISCELLANE ONCE PRN PRN Reason: Consult order Pharmacy Consult (Consult Rx Vancomycin Dosing) 1 each MISCELLANE DAILY PRN PRN Reason: Consult order Sertraline HCl (Sertraline Hcl 25 Mg Tablet) 25 mg PO DAILY [facility] Last Admin: 02/24/23 08:15 Dose: 25 mg Documented By: ROSA Sodium Chloride (0.9 % Sodium Chloride Flush 3 Ml Syringe) 3 ml IVFLUSH QSHIFT [facility] Last Admin: 02/24/23 17:08 Dose: 3 ml Documented By: BEIT Labs 02/18/23 05:11 02/24/23 08:30 Labs: Laboratory Results - last 24 hr 02/24/23 02/24/23 02/24/23 07:15 08:30 11:19 Estim Creat Clear Calc 9.2 Estimated GFR 6 POC Glucose 136 H 168 H Random Vancomycin 02/24/23 02/24/23 02/24/23 16:15 16:57 20:05 Estim Creat Clear Calc Estimated GFR POC Glucose 157 H 197 H Random Vancomycin 13.3 L Microbiology Microbiology Results: Microbiology 02/15/23 22:06 Blood Culture - Final Blood - Venous Staphylococcus aureus 02/15/23 22:06 Blood Culture - Final Blood - Venous Staphylococcus aureus 02/19/23 05:54 Blood Culture - Final Blood - Venous No growth after 5 days. Assessment and Plan (1) Staphylococcus aureus bacteremia: Status: Acute (2) Line sepsis associated with dialysis catheter: Status: Acute Plan 67 year old male with history bioprosthetic aortic valve replacement, CAD s/p CABG, h/o nephrotic syndrome with ESRD on dialysis MWF, hld, htn, hypothyroidism, HFpEF, and mood disorder admitted for line sepsis at [facility] with admission to ICU on 02/16 and stepdown to hospitalist service on 02/17 following placement of temporary IJ central catheter. He is now with positive blood cultures x 2. Line sepsis at [facility] site permcath removed erythema improved. WBC normalized, afebrile Continue vanco Final blood cultures neg after 48 hrs, plan for permacath today Staph aureus bacteremia Final culture still pending Continue IV vanco after HD 500 mg IV Wednesday and Wednesday Echo showed no vegetation seen by ID, rec 4 weeks of IV vancomycin (end mar 17) dosed per dialysis schedule ESRD on dialysis due to nephrotic syndrome- non-oliguric Continue dialysis MWF New PermCath placement planned for today Chronic normocytic anemia- likely r/t chronic disease H/H stable, above transfusion threshold monitor cbc HTN bps soft, hold losartan for now Hypothyroidism continue synthroid CAD/HLD no chest pain continue statin HFpEF euvolumeic on torsemide at baseline, resume when bp allows mood sertraline HLD statin DVT prophylaxis- heparin Full code attending - Dr Squires Disposition. Discharge after final blood cultures have resulted and PermCath placed blood culture reviewed ,need iv antibiotics today late in the evenin after Hd -discharge in am. Time Spent With Patient Time: Total time managing care of this patient today ____ minutes. Quality Stroke Does the patient have a stroke diagnosis?: No VTE Prior VTE?: No VTE Risk Level:: Medical - moderate - high VTE Device Contraindication: N/A - Device Ordered VTE Drug Contraindication: N/A - Med Ordered
--- NOTE | 2023-02-24 22:54 | PM.IDPN ---
Subjective Subjective Date of Service: 02/24/23 Critical Care Time (minutes): 15 Comment: he has MSSA bacteremia Objective Data Labs 02/18/23 05:11 02/24/23 08:30 Labs: Laboratory Results - last 24 hr 02/24/23 02/24/23 02/24/23 07:15 08:30 11:19 Creatinine 9.57 H* Estim Creat Clear Calc 9.2 Estimated GFR 6 POC Glucose 136 H 168 H Random Vancomycin 02/24/23 02/24/23 02/24/23 16:15 16:57 20:05 Creatinine Estim Creat Clear Calc Estimated GFR POC Glucose 157 H 197 H Random Vancomycin 13.3 L Microbiology Microbiology Results: Microbiology 02/15/23 22:06 Blood - Venous Blood Culture - Final Staphylococcus aureus 02/15/23 22:06 Blood - Venous Blood Culture - Final Staphylococcus aureus 02/19/23 05:54 Blood - Venous Blood Culture - Final No growth after 5 days. 02/18/23 05:11 Blood - Venous Blood Culture - Final No growth after 5 days. 02/17/23 09:45 Blood - Venous Blood Culture - Final No growth after 5 days. 02/17/23 09:45 Blood - Venous Blood Culture - Final No growth after 5 days. Physical Exam Vital Signs: Vital Signs: Last Vital Signs Temp 97.5 F 02/24/23 19:26 Pulse 68 02/24/23 19:26 Resp 18 02/24/23 19:26 BP 133/58 L 02/24/23 19:26 Pulse Ox 98 02/24/23 19:26 O2 Del Method Room Air 02/24/23 19:26 O2 Flow Rate 1.0 02/17/23 07:41 BMI result Body Mass Index 30.8 Const: General: cooperative HEENT: Head: Yes normal to inspection Mouth: Normal oral and palatal mucosa present Resp: Effort & Inspection: normal respiratory effort Cardio: Rate: regular rate Rhythm: regular rhythm GI: Palpation (GI): Soft to palpation and nontender Skin: General skin exam: no rashes or lesions noted Assessment and Plan Assessment and plan (1) Staphylococcus aureus bacteremia: Status: Acute Plan He has MSSA bacteremia He has full body rash to PCN Would give Vancomycin 500 mg with each dialysis and follow troughs and adjust as needed for three more weeks. Time Spent With Patient Time: Total time managing care of this patient today ____ minutes.
[2023-02-25 03:42] VITALS: BP 132/64; PULSE 67; RESP 18; TEMP 36.6; O2SAT 100
[2023-02-25] MEDS: Levothyroxine Sodium 75 MCG TABLET PO (05:33)
[2023-02-25 05:36] VITALS: RESP 18; BMI 30.6
[2023-02-25 06:30] LABS: Creatinine Clr Calc Pharmacy 11.9; Estimated Glomerular Filt Rate 7
[2023-02-25 07:24] VITALS: BP 126/65; PULSE 72; RESP 20; TEMP 36.2; O2SAT 98
[2023-02-25 07:47] LABS: Glucose, Whole Blood 175 mg/dL (60-115)
[2023-02-25] MEDS: Sertraline HCL 25 MG TABLET PO (08:05)
[2023-02-25] MEDS: Insulin Lispro 100 UNIT/ML 3 ML VIAL SUBCUT (08:05)
[2023-02-25] MEDS: Heparin Sodium,Porcine 5,000 UNIT/ML VIAL 5000 UNIT SUBCUT (08:05)
[2023-02-25] MEDS: 0.9 % Sodium Chloride Flush 3 ML SYRINGE IVFLUSH (08:05)
[2023-02-25] MEDS: Atorvastatin Calcium 40 MG TABLET PO (08:05)
== END 2023-02-25 10:08 | disposition home or self-care (01) | DRG 314 ==
LOC: HO.ED 02-16 01:17 → HO.EDOVER 02-16 06:43 → HO.ICU 02-16 06:53 → HO.S3 02-17 03:56
PROVIDERS: Nurse Practitioner Acute Care; Nurse Practitioner Family; Physician Assistant; Physician Assistant Medical; Radiology Diagnostic Radiology; Student in an Organized Health Care Education/Training Program; Admitting Provider Internal Medicine Cardiovascular Disease; Emergency Provider Emergency Medicine; PCP Internal Medicine; Visit Provider Internal Medicine
PROC: 0JH63XZ Insertion of Tunneled Vascular Access Device into Chest Subcutaneous Tissue and Fascia, Percutaneous Approach (ICD-10-PCS; principal; 2023-02-22 13:00)
DX: T80.211A Bloodstream infection due to central venous catheter, initial encounter (principal); A41.9 Sepsis, unspecified organism; N18.6 End stage renal disease; I50.33 Acute on chronic diastolic (congestive) heart failure; I13.2 Hypertensive heart and chronic kidney disease with heart failure and with stage 5 chronic kidney disease, or end stage renal disease; Z99.2 Dependence on renal dialysis; E83.52 Hypercalcemia; D63.1 Anemia in chronic kidney disease; B95.61 Methicillin susceptible Staphylococcus aureus infection as the cause of diseases classified elsewhere; E13.22 Other specified diabetes mellitus with diabetic chronic kidney disease; I25.10 Atherosclerotic heart disease of native coronary artery without angina pectoris; E78.5 Hyperlipidemia, unspecified; E03.9 Hypothyroidism, unspecified; Z95.2 Presence of prosthetic heart valve; Z20.822 Contact with and (suspected) exposure to COVID-19; Z87.891 Personal history of nicotine dependence; Z79.890 Hormone replacement therapy; Z79.899 Other long term (current) drug therapy
CPT/HCPCS: 36415; 36558; 36589; 71045; 71250; 74176; 76937; 80048; 80053; 80202; 81001; 82040; 82565; 82803; 82947; 83036; 83605; 83735; 84100; 85025; 85610; 87040; 87147; 87186; 87205; 87502; 87635; 90999; 93005; 93306; 99152; 99153; 99285; C1750; C1769; J0692; J1643; J2250; J2405; J3370; J3371; Q9957

== ENCOUNTER → 2023-02-15 21:39 | Outpatient (BNV) | payer MEDICARE, MEDICAID, SELFPAY | PROVIDERS: Admitting Provider Internal Medicine Cardiovascular Disease; Emergency Provider Emergency Medicine; PCP Internal Medicine; Visit Provider Internal Medicine | DX: R00.0 Tachycardia, unspecified (principal) | CPT/HCPCS: 93010 ==

== ENCOUNTER 2023-02-16 06:35 | Outpatient (BNV) | payer MEDICARE, MEDICAID, SELFPAY | END 2023-02-22 13:30 | PROVIDERS: Admitting Provider Internal Medicine Cardiovascular Disease; Emergency Provider Emergency Medicine; PCP Internal Medicine; Visit Provider Radiology Diagnostic Radiology | DX: N19 Unspecified kidney failure (principal) | CPT/HCPCS: 76937 ==

== ENCOUNTER 2023-02-16 06:35 | Outpatient (BNV) | payer MEDICARE, MEDICAID, SELFPAY | END 2023-02-18 07:00 | PROVIDERS: Admitting Provider Internal Medicine Cardiovascular Disease; Emergency Provider Emergency Medicine; PCP Internal Medicine; Visit Provider Internal Medicine | DX: I34.0 Nonrheumatic mitral (valve) insufficiency (principal) | CPT/HCPCS: 93306 ==

== ENCOUNTER 2023-02-16 06:35 | Outpatient (BNV) | payer MEDICARE, MEDICAID, SELFPAY | END 2023-02-16 15:45 | PROVIDERS: Admitting Provider Internal Medicine Cardiovascular Disease; Emergency Provider Emergency Medicine; PCP Internal Medicine; Visit Provider Radiology Vascular & Interventional Radiology | DX: T82.7XXA Infection and inflammatory reaction due to other cardiac and vascular devices, implants and grafts, initial encounter (principal); A41.9 Sepsis, unspecified organism | CPT/HCPCS: 36589 ==

== ENCOUNTER 2023-02-16 06:35 | Outpatient (BNV) | payer MEDICARE, MEDICAID, SELFPAY | END 2023-02-21 13:30 | PROVIDERS: Admitting Provider Internal Medicine Cardiovascular Disease; Emergency Provider Emergency Medicine; PCP Internal Medicine; Visit Provider Radiology Diagnostic Radiology | DX: N19 Unspecified kidney failure (principal) | CPT/HCPCS: 36558 ==

== ENCOUNTER → 2023-02-16 06:35 | Outpatient (BNV) | payer MEDICARE, MEDICAID, SELFPAY | PROVIDERS: Admitting Provider Internal Medicine Cardiovascular Disease; Emergency Provider Emergency Medicine; PCP Internal Medicine; Visit Provider Physician Assistant | DX: A41.9 Sepsis, unspecified organism (principal); N18.6 End stage renal disease; Z99.2 Dependence on renal dialysis | CPT/HCPCS: 99231; 99232; 99233; 99239 ==

== ENCOUNTER → 2023-02-16 06:35 | Outpatient (BNV) | payer MEDICARE, MEDICAID, SELFPAY | PROVIDERS: Admitting Provider Internal Medicine Cardiovascular Disease; Emergency Provider Emergency Medicine; PCP Internal Medicine; Visit Provider Internal Medicine | DX: A41.9 Sepsis, unspecified organism (principal); B95.61 Methicillin susceptible Staphylococcus aureus infection as the cause of diseases classified elsewhere; T82.7XXA Infection and inflammatory reaction due to other cardiac and vascular devices, implants and grafts, initial encounter | CPT/HCPCS: 99222; 99232 ==

== ENCOUNTER → 2023-02-16 06:35 | Outpatient (BNV) | payer MEDICARE, MEDICAID, SELFPAY | PROVIDERS: Admitting Provider Internal Medicine Cardiovascular Disease; Emergency Provider Emergency Medicine; PCP Internal Medicine; Visit Provider Internal Medicine Cardiovascular Disease | DX: T82.7XXA Infection and inflammatory reaction due to other cardiac and vascular devices, implants and grafts, initial encounter (principal); A41.9 Sepsis, unspecified organism; N18.6 End stage renal disease; Z99.2 Dependence on renal dialysis; E87.20 Acidosis, unspecified; I50.30 Unspecified diastolic (congestive) heart failure; I35.0 Nonrheumatic aortic (valve) stenosis; N18.9 Chronic kidney disease, unspecified; E83.52 Hypercalcemia; N04.9 Nephrotic syndrome with unspecified morphologic changes; D64.9 Anemia, unspecified; N17.9 Acute kidney failure, unspecified | CPT/HCPCS: 99291 ==

== ENCOUNTER 2023-03-12 13:43 | Inpatient (IN) | payer MEDICARE, MEDICAID, SELFPAY ==
--- NOTE | ~2023-03-12 | IR_ITS ---
PROCEDURE: IR INSERTION OF TUNNEL CATHETER CLINICAL INFORMATION: End-stage renal disease COMPARISON: Previous exam dated 03/16/2023 TECHNIQUE: All elements of maximal sterile barrier technique followed including use of cap, mask, sterile gown, sterile gloves, a sterile full body drape and hand hygiene. Also followed skin preparation with 2% chlorhexidine for cutaneous antisepsis, and sterile ultrasound preparation with sterile gel and probe cover when applicable. Initially under ultrasound guidance attempts at accessing the right internal jugular vein was performed. A 0.018 guidewire was advanced into the inferior aspect of the right internal jugular vein. Due to the degree of scarring in the this area it was decided to convert the temporary line to a tunneled catheter. Over a 0.035 guidewire the temporary catheter was removed. A peel-away sheath was placed. A 23 cm in length lumen dialysis catheter was tunneled beneath the skin surface and subsequently through the peel-away sheath into the midportion of the right atrium. The catheter was flushed with excellent blood return. Heparinized saline instilled in both ports. FINDINGS: Moderate scarring in the region of the right internal jugular vein. Conversion of the temporary line into a tunneled 23 cm length double-lumen dialysis catheter. The Patient tolerated the procedure well. IR/IR cvc insert central tunnel IMPRESSION: Placement of a 23 cm in length tunneled dual-lumen dialysis catheter
--- NOTE | ~2023-03-12 | IR_ITS ---
EXAMINATION: US NECK CLINICAL INFORMATION: Ultrasound provided during insertion of tunneled catheter. COMPARISON: None available. TECHNIQUE: Ultrasound was provided to Dr. Derrick Bailey during insertion of a central venous catheter. FINDINGS: Imaging of the right internal jugular vein was performed. IR/IR us guide venous access IMPRESSION: Ultrasound guidance for insertion of a central venous catheter.
--- NOTE | ~2023-03-12 | IR_ITS ---
PROCEDURE: IR INSERTION OF CENTRAL VENOUS CATHETER CLINICAL INFORMATION: infected tunnel dialysis catheter After informed and written consent was obtained an official timeout was performed immediately prior to the procedure. COMPARISON: None available. TECHNIQUE: All elements of maximal sterile barrier technique followed including use of cap, mask, sterile gown, sterile gloves, a sterile full body drape and hand hygiene. Also followed skin preparation with 2% chlorhexidine for cutaneous antisepsis, and sterile ultrasound preparation with sterile gel and probe cover when applicable. Under ultrasound guidance a micropuncture needle was placed into the right external jugular vein. Guidewire and catheter advanced into the right atrium. A temporary dual-lumen dialysis catheter was placed with the tip of the catheter in the SVC. FINDINGS: Placement of a temporary dialysis catheter via the right external jugular vein IR/IR cvc insert non tunnel IMPRESSION: Successful placement of a temporary dialysis catheter
--- NOTE | ~2023-03-12 | XR_ITS ---
EXAMINATION: XR CHEST CLINICAL INFORMATION: Weakness COMPARISON: 02/16/2023, 02/15/2023 TECHNIQUE: Frontal view of the chest was obtained. FINDINGS: The lungs are normally expanded. There is mild atelectasis at the right lung base. The lungs are otherwise clear. There is no significant effusion. The mediastinum is stable, with evidence of previous sternotomy and mitral valve replacement. There is no peripheral vascular congestion. There is a right jugular venous catheter terminating in the distal superior vena cava. XR/XR chest 1V IMPRESSION: Mild right base atelectasis.
[2023-03-12 13:52] VITALS: BP 145/57; PULSE 109; RESP 18; TEMP 37.9; O2SAT 95; BMI 34.4
--- NOTE | 2023-03-12 14:07 | ECG_ITS ---
Test Reason : WEAKNESS Blood Pressure : / mmHG Vent. Rate : 111 BPM Atrial Rate : 111 BPM P-R Int : 172 ms QRS Dur : 086 ms QT Int : 320 ms P-R-T Axes : 028 010 035 degrees QTc Int : 435 ms Sinus tachycardia Nonspecific ST abnormality Abnormal ECG When compared with ECG of 15-FEB-2023 21:59, Nonspecific ST abnormality is now Present Referred By: Generic ED Physician Electronically Signed By:LARRY BRAN
[2023-03-12 14:17] LABS: MANUAL DIFF FLAG NO
[2023-03-12 14:21] LABS: Basophils Absolute Auto 0.1 X10*3/uL (0.0-0.2); Basophils Percent Auto 0.4 % (0-2); Eosinophils Absolute Auto 0.2 X10*3/uL (0.0-0.4); Eosinophils Percent Auto 1.5 % (0-4); Hemoglobin 8.7 g/dl (14.0-18.0); Imm Gran Pct Auto 0.8 % (0.0-0.4); Lymphocytes Absolute Auto 0.4 X10*3/uL (1.2-4.9); Lymphocytes Percent Auto 2.9 % (20-40); Mean Corpuscular HGB Conc 33.5 g/dl (31.0-36.0); Mean Corpuscular Hemoglobin 32.2 pg (27.0-33.0); Mean Corpuscular Volume 96.3 fL (80.0-98.0); Mean Platelet Volume 9.7 fL (9.4-12.4); Monocytes Absolute Auto 0.8 X10*3/uL (0.1-1.2); Monocytes Percent Auto 5.7 % (2-11); Neutrophils Absolute Auto 11.6 x10*3/uL (2.0-8.3); Neutrophils Percent Auto 88.7 % (45-73); Platelet Count 239 X10*3/uL (160-400); Red Cell Distribution Width 13.8 % (11.0-16.0); White Blood Count 13.1 X10*3/uL (4.8-10.8)
--- NOTE | 2023-03-12 14:27 | PC.NURSE ---
IV placed in the right lateral AC, #20
--- NOTE | 2023-03-12 14:30 | PC.NURSE ---
patient came in with no belongings, no clothes, no underwear or shoes
[2023-03-12 14:43] LABS: Lactic Acid 1.6 mmol/L (0.5-2.0)
[2023-03-12 14:50] VITALS: BP 131/51; PULSE 109; RESP 15; TEMP 36.9; O2SAT 96
[2023-03-12 14:50] LABS: Appearance Urine Clear; Color Urine Yellow; Glucose Urine UA >=1000 mg/dL (Negative); Leukocyte Esterase Urine Negative (Negative); Nitrite Urine Negative (Negative); PH 7.5 (5.0-9.0); UMIC TRIGGER UACC YES; Urine Blood Small (1+) (Negative); Urine Ketones Trace mg/dL (Negative); Urine Protein >=1000 (4+) mg/dL (Neg-Trace)
[2023-03-12 14:55] LABS: Anion Gap 20 (12-20); Blood Urea Nitrogen 51 mg/dL (9-16); Calcium 9.9 mg/dL (8.4-10.2); Carbon Dioxide 19 mmol/L (22-29); Chloride 102 mmol/L (96-108); Creatinine Clr Calc Pharmacy 13.2; Estimated Glomerular Filt Rate 8; Glucose Random 224 mg/dL (60-115); Potassium 5.9 mmol/L (3.3-5.1); Sodium 135 mmol/L (135-145); Troponin-I High Sensitivity 13.1 ng/L (<3.5-35.0)
[2023-03-12 15:06] LABS: COVID-19 Test Negative (Negative); IDNOW Serial# 08D9AD1C
[2023-03-12 15:10] LABS: Bacteria Urine None Seen (None Seen); RBC Urine 0-2 /HPF (0-2); Squamous Epithelial Cell Urine 0-2 /HPF (0-2); UACC Culture Trigger YES
[2023-03-12 15:17] LABS: B Type Natriuretic Peptide 228 pg/mL (<100)
--- NOTE | 2023-03-12 16:14 | ED_ITS ---
HPI - Weakness General Chief complaint: Weakness Stated complaint: MISSED DIALYSIS TREATMENT FEELING SICK Time Seen by Provider: 03/12/23 15:55 Source: patient Mode of arrival: EMS Limitations: no limitations History of Present Illness HPI Narrative: 67 yo male with hx of staph aureus bacteremia just DC here 03/06 (perm cath site) new line placed 02/22 he is supposed to be getting vanco 500mg every HD session MWF he states he never misses until today when he didn't feel well again - nausea headaches chills and not feeling well. He admits his line site looks bad and he is itching it again and there is some drainage. MD Complaint: generalized weakness Onset (ago): day(s) (1) Duration: constant Location: generalized Migration: none Severity: moderate Quality: dull Relieving factors: none Exacerbating factors: none Context: recent illness Associated symptoms: fever/chills, headaches, loss of appetite, nausea/vomiting and rash Related Data Home Medications Medication Instructions Recorded Confirmed levothyroxine 75 mcg tablet 75 mcg PO DAILY@0600 06/27/20 03/12/23 atorvastatin 40 mg tablet 40 mg PO DAILY 02/10/22 03/12/23 sertraline 25 mg tablet 1 tab PO DAILY 10/03/22 03/12/23 calcium carbonate 400 mg calcium 400 mg PO TID 02/16/23 03/12/23 (1,000 mg) chewable tablet (Ultra Strength Antacid) ergocalciferol (vitamin D2) 1,250 1,250 mcg PO FR@0900 02/16/23 03/12/23 mcg (50,000 unit) capsule losartan 50 mg tablet 50 mg PO DAILY 02/16/23 03/12/23 sevelamer carbonate 800 mg tablet 1,600 mg PO TID 02/16/23 03/12/23 torsemide 20 mg tablet 40 mg PO BID@0900,1400 02/16/23 03/12/23 Previous Rx's Medication Instructions Recorded vancomycin 500 mg/100 mL in 0.9% 500 mg (100 mL) IV MOWEFR #1,000 mL 02/24/23 sodium chloride intravenous piggyback Allergies Allergy/AdvReac Type Severity Reaction Status Date / Time Penicillins Allergy Unknown UNKWN Verified 07/24/22 09:42 Review of Systems Review of Systems: Constitutional : pos Fever, pos Chills, No Fatigue ENT/Mouth : No sore throat, No Rhinorrhea Eyes: No Eye Pain, No Swelling, No Redness Cardiovascular : No Chest Pain, No SOB, No Dyspnea on Exertion Respiratory : No Cough, No Sputum Gastrointestinal : pos Nausea, No Vomiting, No Diarrhea, No abdominal Pain Genitourinary : No Dysuria, No Urinary Frequency, No Hematuria, Musculoskeletal : No joint pain, No Myalgias, No Joint Swelling Skin : No Skin Lesions, pos rash Neuro : No Weakness, No Numbness, No Dizziness, positive Headache Psych : No Anxiety/Panic, No Depression Heme/Lymph: No Bruising, No Bleeding,No Lymphadenopathy Endocrine : No Polyuria, No Polydipsia All other systems reviewed and are negative [facility] Past Medical History Attestation statement: The following information was validated with the patient. 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 Social History Social History Household Members: None Housing: Apartment Do you presently have visiting nurse or other home services: Yes ([employer] 2x/week) Unable to assess alcohol history related to: Unknown Alcohol intake: never Patient Tobacco Use Status: Former Tobacco user Quit Date: 5 years ago Tobacco use type: Cigarette Years Smoked: 30 Second Hand Smoke Exposure: No Advance Directives: No Advance Directives Information Provided: No Advance Directives Date on File: 05/01/20 service: No Current occupational status: unemployed and disabled Physical Exam Vital Signs: Vital Signs: Last Vital Signs Temp 99.0 F 03/12/23 17:07 Pulse 102 H 03/12/23 17:07 Resp 16 03/12/23 17:07 BP 139/51 L 03/12/23 17:07 Pulse Ox 97 03/12/23 17:07 O2 Del Method Room Air 03/12/23 17:07 BMI result Body Mass Index 34.4 Appearance: Alert. Oriented X3. No acute distress. Eyes: Pupils equal, round and reactive to light. ENT: Pharynx normal. Neck: Normal inspection. Neck supple. no meningeal signg CVS: tachycardic heart rate and rhythm. Pulses normal. Respiratory: No respiratory distress. Breath sounds normal. Abdomen: Soft and nontender. Skin: Skin warm and dry. very hot to touch his chest wall cath site is excoriated red and when I push on the line purulence comes out I do not feel a pocket of purulence though Extremities: No lower extremity edema. No calf ttp Neuro: Oriented X 3. No motor deficit. No sensory deficit. Course Course Course Narrative: 430pm at this time infection suspected once I saw patient's permcath site Medications Administered Generic Name Dose Route Start Last Admin Trade Name Freq PRN Reason Stop Dose Admin Vancomycin HCl 500 mg/ Sodium 110 mls @ 110 mls/hr 03/12/23 16:28 03/12/23 17:06 Chloride IV 03/12/23 17:27 110 mls/hr ONCE ONE Administration Discontinued Medications Generic Name Dose Route Start Last Admin Trade Name Freq PRN Reason Stop Dose Admin Acetaminophen 650 mg 03/12/23 16:08 03/12/23 16:32 Acetaminophen 325 Mg Tablet PO 03/12/23 16:09 650 mg ONCE ONE Administration Cefepime HCl 1 gm/ Sodium 50 mls @ 100 mls/hr 03/12/23 16:08 03/12/23 16:31 Chloride IV 03/12/23 16:37 100 mls/hr ONCE ONE Administration Sodium Zirconium Cyclosilicate 5 gm 03/12/23 16:03 03/12/23 16:34 Sodium Zirconium Cyclosilicate 5 Gm Powd.Pack PO 03/12/23 16:04 5 gm ONCE ONE Administration Medical Decision Making Medical Decision Making MDM Narrative: 67 yo male with sig PMH here with fevers, chills, WBC count recent staph bacteremia with new perm cath line placed 02/22 - his line site is infected again there is redness, yellow drainage - I have reordered antibiotics, labs, CXR, cultures and will remove line consult nephrology - K is 5.9 no EKG changes give calcium and lokelma consult IR vs ICU for new line and admit. Differential Diagnosis Differential Diagnoses: The differential diagnosis associated with the presentation includes bacteremia, pneumonia, UTI, line infection Admission/Observation Consideration of admission/observation: Escalation of care including admission/observation considered admit for IV antibiotics and line replacement Consult Healthcare Provider Management of the patient was discussed with: Hospitalist (agrees to admit) and [facility] - aware can dialyze this weekend Dr. Bravo will place line tomorrow Lab Data MDM Lab Attestation statement: I reviewed the patient's lab results. 03/12/23 14:12 03/12/23 14:12 Labs: Lab Results 03/12/23 03/12/23 03/12/23 Range/Units 14:12 14:12 14:12 WBC 13.1 H (4.8-10.8) X10*3/uL RBC 2.70 L (4.60-5.80) X10*6/uL Hgb 8.7 L (14.0-18.0) g/dl Hct 26.0 L (42.0-52.0) % MCV 96.3 (80.0-98.0) fL MCH 32.2 (27.0-33.0) pg MCHC 33.5 (31.0-36.0) g/dl RDW 13.8 (11.0-16.0) % Plt Count 239 (160-400) X10*3/uL MPV 9.7 (9.4-12.4) fL Immature Gran % (Auto) 0.8 H (0.0-0.4) % Neut % (Auto) 88.7 H (45-73) % Lymph % (Auto) 2.9 L (20-40) % [place] % (Auto) 5.7 (2-11) % Eos % (Auto) 1.5 (0-4) % Baso % (Auto) 0.4 (0-2) % Lymph # (Auto) 0.4 L (1.2-4.9) X10*3/uL [place] # (Auto) 0.8 (0.1-1.2) X10*3/uL Eos # (Auto) 0.2 (0.0-0.4) X10*3/uL Baso # (Auto) 0.1 (0.0-0.2) X10*3/uL Abs Immat Gran (auto) 0.10 H (0.00-0.03) X10*3/uL Absolute Neuts (auto) 11.6 H (2.0-8.3) x10*3/uL Absolute Nucleated RBC 0.000 (0.0-0.012) X10*3/uL Nucleated RBC % (auto) 0.0 (0.0-0.2) /100WBC Sodium 135 (135-145) mmol/L Potassium 5.9 H D (3.3-5.1) mmol/L Chloride 102 (96-108) mmol/L Carbon Dioxide 19 L (22-29) mmol/L Anion Gap 20 (12-20) BUN 51 H (9-16) mg/dL Creatinine 7.10 H* (0.5-1.4) mg/dL Estim Creat Clear Calc 13.2 Estimated GFR 8 Random Glucose 224 H (60-115) mg/dL Lactic Acid 1.6 (0.5-2.0) mmol/L Calcium 9.9 D (8.4-10.2) mg/dL Troponin I High Sens (<3.5-35.0) ng/L B-Natriuretic Peptide (<100) pg/mL Urine Color Urine Appearance Urine pH (5.0-9.0) Ur Specific [place] (1.005-1.025) Urine Protein (Neg-Trace) mg/dL Urine Glucose (UA) (Negative) mg/dL Urine Ketones (Negative) mg/dL Urine Blood (Negative) Urine Nitrite (Negative) Ur Leukocyte Esterase (Negative) Urine RBC (0-2) /HPF Urine WBC (0-5) /HPF Ur Squamous Epith Cells (0-2) /HPF Urine Bacteria (None Seen) Hyaline Casts (0-2) /LPF COVID-19 ([facility]) (Negative) COVID-19 Clin Com 03/12/23 03/12/23 03/12/23 Range/Units 14:12 14:41 14:41 WBC (4.8-10.8) X10*3/uL RBC (4.60-5.80) X10*6/uL Hgb (14.0-18.0) g/dl Hct (42.0-52.0) % MCV (80.0-98.0) fL MCH (27.0-33.0) pg MCHC (31.0-36.0) g/dl RDW (11.0-16.0) % Plt Count (160-400) X10*3/uL MPV (9.4-12.4) fL Immature Gran % (Auto) (0.0-0.4) % Neut % (Auto) (45-73) % Lymph % (Auto) (20-40) % [place] % (Auto) (2-11) % Eos % (Auto) (0-4) % Baso % (Auto) (0-2) % Lymph # (Auto) (1.2-4.9) X10*3/uL [place] # (Auto) (0.1-1.2) X10*3/uL Eos # (Auto) (0.0-0.4) X10*3/uL Baso # (Auto) (0.0-0.2) X10*3/uL Abs Immat Gran (auto) (0.00-0.03) X10*3/uL Absolute Neuts (auto) (2.0-8.3) x10*3/uL Absolute Nucleated RBC (0.0-0.012) X10*3/uL Nucleated RBC % (auto) (0.0-0.2) /100WBC Sodium (135-145) mmol/L Potassium (3.3-5.1) mmol/L Chloride (96-108) mmol/L Carbon Dioxide (22-29) mmol/L Anion Gap (12-20) BUN (9-16) mg/dL Creatinine (0.5-1.4) mg/dL Estim Creat Clear Calc Estimated GFR Random Glucose (60-115) mg/dL Lactic Acid (0.5-2.0) mmol/L Calcium (8.4-10.2) mg/dL Troponin I High Sens 13.1 D (<3.5-35.0) ng/L B-Natriuretic Peptide 228 H (<100) pg/mL Urine Color Urine Appearance Urine pH (5.0-9.0) Ur Specific [place] (1.005-1.025) Urine Protein (Neg-Trace) mg/dL Urine Glucose (UA) (Negative) mg/dL Urine Ketones (Negative) mg/dL Urine Blood (Negative) Urine Nitrite (Negative) Ur Leukocyte Esterase (Negative) Urine RBC (0-2) /HPF Urine WBC (0-5) /HPF Ur Squamous Epith Cells (0-2) /HPF Urine Bacteria (None Seen) Hyaline Casts (0-2) /LPF COVID-19 ([facility]) Negative (Negative) COVID-19 Clin Com See Note 03/12/23 Range/Units 14:41 WBC (4.8-10.8) X10*3/uL RBC (4.60-5.80) X10*6/uL Hgb (14.0-18.0) g/dl Hct (42.0-52.0) % MCV (80.0-98.0) fL MCH (27.0-33.0) pg MCHC (31.0-36.0) g/dl RDW (11.0-16.0) % Plt Count (160-400) X10*3/uL MPV (9.4-12.4) fL Immature Gran % (Auto) (0.0-0.4) % Neut % (Auto) (45-73) % Lymph % (Auto) (20-40) % [place] % (Auto) (2-11) % Eos % (Auto) (0-4) % Baso % (Auto) (0-2) % Lymph # (Auto) (1.2-4.9) X10*3/uL [place] # (Auto) (0.1-1.2) X10*3/uL Eos # (Auto) (0.0-0.4) X10*3/uL Baso # (Auto) (0.0-0.2) X10*3/uL Abs Immat Gran (auto) (0.00-0.03) X10*3/uL Absolute Neuts (auto) (2.0-8.3) x10*3/uL Absolute Nucleated RBC (0.0-0.012) X10*3/uL Nucleated RBC % (auto) (0.0-0.2) /100WBC Sodium (135-145) mmol/L Potassium (3.3-5.1) mmol/L Chloride (96-108) mmol/L Carbon Dioxide (22-29) mmol/L Anion Gap (12-20) BUN (9-16) mg/dL Creatinine (0.5-1.4) mg/dL Estim Creat Clear Calc Estimated GFR Random Glucose (60-115) mg/dL Lactic Acid (0.5-2.0) mmol/L Calcium (8.4-10.2) mg/dL Troponin I High Sens (<3.5-35.0) ng/L B-Natriuretic Peptide (<100) pg/mL Urine Color Yellow Urine Appearance Clear Urine pH 7.5 (5.0-9.0) Ur Specific [place] 1.020 (1.005-1.025) Urine Protein >=1000 (4+) H (Neg-Trace) mg/dL Urine Glucose (UA) >=1000 H (Negative) mg/dL Urine Ketones Trace (Negative) mg/dL Urine Blood Small (1+) H (Negative) Urine Nitrite Negative (Negative) Ur Leukocyte Esterase Negative (Negative) Urine RBC 0-2 (0-2) /HPF Urine WBC 6-10 H (0-5) /HPF Ur Squamous Epith Cells 0-2 (0-2) /HPF Urine Bacteria None Seen (None Seen) Hyaline Casts 6-10 (0-2) /LPF COVID-19 ([facility]) (Negative) COVID-19 Clin Com Independent Interpretation I performed an independent interpretation of an: EKG and Plain X-Ray (no pneumonnia) Interpretation: Rate: 111 Rhythm: sinus tach [place]: normal Normal P waves. Normal LOY. Normal QRS complex. ST T wave : no [place] qTC: normal prior studies: no acute ischemia The study has been interpreted contemporaneously by me. . External Record Review External record reviewed: Inpatient record Critical Care Time Critical Care Time Critical Care Time: Yes Total Critical Care Time: 31 Attestation: IV antibiotics, hyperkalemia treatment, consults for admission to ICU and renal I attest to this time spent taking care of the patient Discharge Plan Discharge Clinical Impression: Acute febrile illness Intravenous line infection Qualifiers: Encounter type: initial encounter Qualified Code(s): T82.7XXA - Infection and inflammatory reaction due to other cardiac and vascular devices, implants and grafts, initial encounter Leukocytosis Qualifiers: Leukocytosis type: unspecified Qualified Code(s): D72.829 - Elevated white blood cell count, unspecified Patient Disposition: Admitted As Inpatient
[2023-03-12] MEDS: cefEPime HCl 1 GM in 0.9 % Sodium Chloride 50 ML IV (16:31)
[2023-03-12] MEDS: Acetaminophen 325 MG TABLET 650 MG PO ×2 (16:32→21:57)
[2023-03-12] MEDS: Sodium Zirconium Cyclosilicate 5 GM POWD.PACK PO (16:34)
[2023-03-12] MEDS: vancomycin HCL 500 MG in 0.9 % Sodium Chloride 100 ML 110 MG IV (17:06)
[2023-03-12 17:07] VITALS: BP 139/51; PULSE 102; RESP 16; TEMP 37.2; O2SAT 97
--- NOTE | 2023-03-12 17:14 | P.HPHOSP_ITS ---
the patient was seen and evaluated with CHRISTIAN Bustamante. I agree with his note, assessment and plan with the following. In summary, a 67 years old male w PMH of ESRD on HD, dCHF, severe s/p bioAVR among others who presents with feeling weak with reported fever, chills with worsening erythema around his Permacath site. The patient currently on Vancomycin for MSSA bacteremia w dialysis. sepsis 2/2 PermCath line & site infection w cellulitis Pending line and blood cultures Line removed, Temp dialysis cath will be placed tomorrow start Cefepime 500 mg daily and vancomycin w dialysis ID consult ESRD on HD M/W/F, missed todays session plan to get temp cath and dialyze tomorrow Nephrology consult Rest of evaluations by PA note. 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 Patient states that he has been experiencing fever, chills, nausea, headache, and stomach ache after waking up today. Patient admits he has been itching and scratching at his PermCath site and that it has occasionally oozed prurulent discharge. Patient also notes he missed dialysis today due to feeling unwell and presenting to the emergency department. Of note, patient was admitted 3 weeks prior on 02/16/2023-02/24/2023 for similar presentation of a PermCath site line infection with MSSA bacteremia. Patient had his line placed and was started on IV antibiotics and discharged home on 3 weeks of vancomycin with dialysis. Pt to have his current catheter removed in the ED. Dr. Shelly adame onsulted, will place temporary dialysis catheter tomorrow and patient will then be subsequently dialyzed. Patient denies chest pain/pressure, palpitations. No shortness of breath. In the ED patient with low-grade fever of 100.3, tachycardic up to 109, and mild hypertension of 145/57. Labs were significant for leukocytosis of 13.1, H&H of 8.7/26.0, potassium 5.9, BUN 51, creatinine 7.10, BNP 228. Urine negative for UTI. CXR showed mild right base atelectasis. EKG demonstrated sinus tachycardia of [address] [place] in I, V4, and V5. Pt was treated with cefepime, vancomycin, Tylenol, glaucoma, and calcium gluconate. Pt will be admitted to the hospital for treatment and further evaluation of infection at the site of PermCath with IV antibiotics and line replacement. Review of Systems Review of Systems: Fever, chills Nausea Headache Stomach ache Generalized malaise Purulent discharge from PermCath site Denies chest pain/pressure, palpitations No shortness of breath Yes all other systems are reviewed and are negative [facility] Medical History Acute hypokalemia Acute on chronic renal failure Anasarca associated with disorder of kidney Anasarca associated with disorder of kidney Aortic stenosis CHF (congestive heart failure), NYHA class I CKD (chronic kidney disease) stage 3, GFR 30-59 ml/min Congestive heart failure Congestive heart failure Diabetes 1.5, managed as type 2 Diverticulosis Hiatal hernia History of small bowel obstruction Hyperlipidemia Hypertension 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 Surgical History H/O aortic valve replacement Social History Household Members: None Housing: Apartment Do you presently have visiting nurse or other home services: Yes ([employer] 2x/week) Unable to assess alcohol history related to: Unknown Alcohol intake: never Patient Tobacco Use Status: Former Tobacco user Quit Date: 5 years ago Tobacco use type: Cigarette Years Smoked: 30 Second Hand Smoke Exposure: No Advance Directives: No Advance Directives Information Provided: No Advance Directives Date on File: 05/01/20 service: No Current occupational status: unemployed and disabled Meds Allergies Allergy/AdvReac Type Severity Reaction Status Date / Time Penicillins Allergy Unknown UNKWN Verified 07/24/22 09:42 Active Medications: Current Medications Calcium Gluconate (Calcium Gluconate) 2 gm in 100 mls @ 50 mls/hr IV ONCE ONE Stop: 03/12/23 18:02 Vancomycin HCl 500 mg/ Sodium (Chloride) 110 mls @ 110 mls/hr IV ONCE ONE Stop: 03/12/23 17:27 Last Admin: 03/12/23 17:06 Dose: 110 mls/hr Home Medications Medication Instructions Recorded Confirmed Last Taken Type levothyroxine 75 mcg tablet 75 mcg PO DAILY@0600 06/27/20 03/12/23 2 Days Ago History ~02/14/23 atorvastatin 40 mg tablet 40 mg PO DAILY 02/10/22 03/12/23 2 Days Ago History ~02/14/23 sertraline 25 mg tablet 1 tab PO DAILY 10/03/22 03/12/23 2 Days Ago History ~02/14/23 calcium carbonate 400 mg calcium 400 mg PO TID 02/16/23 03/12/23 2 Days Ago History (1,000 mg) chewable tablet (Ultra ~02/14/23 Strength Antacid) ergocalciferol (vitamin D2) 1,250 1,250 mcg PO FR@0900 02/16/23 03/12/23 2 Days Ago History mcg (50,000 unit) capsule ~02/14/23 losartan 50 mg tablet 50 mg PO DAILY 02/16/23 03/12/23 2 Days Ago History ~02/14/23 sevelamer carbonate 800 mg tablet 1,600 mg PO TID 02/16/23 03/12/23 2 Days Ago History ~02/14/23 torsemide 20 mg tablet 40 mg PO BID@0900,1400 02/16/23 03/12/23 2 Days Ago History ~02/14/23 Physical Exam Vital Signs and Narrative: Vital Signs: Last Vital Signs Temp 99.0 F 03/12/23 17:07 Pulse 102 H 03/12/23 17:07 Resp 16 03/12/23 17:07 BP 139/51 L 03/12/23 17:07 Pulse Ox 97 03/12/23 17:07 O2 Del Method Room Air 03/12/23 17:07 BMI result Body Mass Index 34.4 Constitutional: Alert, in no acute distress. Mental Status: Oriented to person, place and time. Eyes: Pupils are equal, round, and reactive to light. Ear, Nose, and Throat: Oropharynx clear, mucous membranes moist. Ears and nose without deformities. Trachea midline. Respiratory: Clear to auscultation bilaterally. No wheezing, rales, or rhonchi. Cardiovascular: S1, S2 regular. No murmurs, rubs, or gallops. Gastrointestinal: Abdomen soft, non-tender, non-distended. Normal bowel sounds. Neurologic: Cranial nerves II-XII are grossly intact bilaterally. No focal neurological deficits. Moves all extremities spontaneously. Skin: Warmth, erythema and scaling at PermCath site. See picture below. Musculoskeletal: No cyanosis or clubbing. Extremities: 1+ bilateral p[itting edema. Psychiatric: Normal mood and affect. Results Labs 03/12/23 14:12 03/12/23 14:12 Labs: Laboratory Results - last 24 hr 03/12/23 03/12/23 03/12/23 14:12 14:12 14:12 MCV 96.3 MCH 32.2 MCHC 33.5 RDW 13.8 Plt Count 239 MPV 9.7 Immature Gran % (Auto) 0.8 H Neut % (Auto) 88.7 H Lymph % (Auto) 2.9 L Swain % (Auto) 5.7 Eos % (Auto) 1.5 Baso % (Auto) 0.4 Lymph # (Auto) 0.4 L Swain # (Auto) 0.8 Eos # (Auto) 0.2 Baso # (Auto) 0.1 Abs Immat Gran (auto) 0.10 H Absolute Neuts (auto) 11.6 H Absolute Nucleated RBC 0.000 Nucleated RBC % (auto) 0.0 Anion Gap 20 Estim Creat Clear Calc 13.2 Estimated GFR 8 Random Glucose 224 H Lactic Acid 1.6 Calcium 9.9 D B-Natriuretic Peptide Urine Color Urine Appearance Urine pH Ur Specific [place] Urine Protein Urine Glucose (UA) Urine Ketones Urine Blood Urine Nitrite Ur Leukocyte Esterase Urine RBC Urine WBC Ur Squamous Epith Cells Urine Bacteria Hyaline Casts COVID-19 ([facility]) COVID-19 Clin Com 03/12/23 03/12/23 03/12/23 14:41 14:41 14:41 MCV MCH MCHC RDW Plt Count MPV Immature Gran % (Auto) Neut % (Auto) Lymph % (Auto) Swain % (Auto) Eos % (Auto) Baso % (Auto) Lymph # (Auto) Swain # (Auto) Eos # (Auto) Baso # (Auto) Abs Immat Gran (auto) Absolute Neuts (auto) Absolute Nucleated RBC Nucleated RBC % (auto) Anion Gap Estim Creat Clear Calc Estimated GFR Random Glucose Lactic Acid Calcium B-Natriuretic Peptide 228 H Urine Color Yellow Urine Appearance Clear Urine pH 7.5 Ur Specific [place] 1.020 Urine Protein >=1000 (4+) H Urine Glucose (UA) >=1000 H Urine Ketones Trace Urine Blood Small (1+) H Urine Nitrite Negative Ur Leukocyte Esterase Negative Urine RBC 0-2 Urine WBC 6-10 H Ur Squamous Epith Cells 0-2 Urine Bacteria None Seen Hyaline Casts 6-10 COVID-19 ([facility]) Negative COVID-19 Clin Com See Note Imaging Radiologist's Impressions: Impressions Chest X-Ray 03/12/23 16:25 IMPRESSION: Mild right base atelectasis. Assessment and Plan (1) Intravenous line infection: Qualifiers: Encounter type: initial encounter Qualified Code(s): T82.7XXA - Infection and inflammatory reaction due to other cardiac and vascular devices, implants and grafts, initial encounter Status: Acute (2) Leukocytosis: Qualifiers: Leukocytosis type: unspecified Qualified Code(s): D72.829 - Elevated white blood cell count, unspecified Status: Acute (3) Line sepsis associated with dialysis catheter: Status: Acute (4) H/O aortic valve replacement: Status: Acute Plan Pt is a 67-year-old male with a PMH significant for?ESRD on HD M/W/F d/t nephrotic syndrome, HFpEF, 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 Patient states that he has been experiencing fever, chills, nausea, headache, and stomach ache after waking up today. Line sepsis at PermCath site Patient with erythema, warmth, excoriation, purulent discharge at lying site Patient meets sepsis criteria: Infection, WBC, tachycardia; lactic acid WNL at 1.6 IV antibiotics: Cefepime 500 mg QD and vancomycin, started 03/12/2023 Patient with history of MSSA bacteremia ID consult Line to be removed in the ED Line tip to be tested for bacteria Follow cultures ESRD on HD M/W/F Pt missed dialysis earlier today due to not feeling well Will have temporary dialysis catheter placed by Dr. Bravo tomorrow, then will be dialyzed Nephrology consult Hyperkalemia Potassium 5.9 at time of presentation Patient given calcium gluconate, Lokelma in the ED Follow BMP Anemia of chronic disease H&H 8.7/26.0 Likely secondary to ESRD Seems stable, near baseline, no signs of active bleeding Follow CBC HTN BP a little soft, will hold losartan for now HFpEF Does not appear to be in acute exacerbation Continue home torsemide CAD/HLD Continue statin Hypothyroidism Continue levothyroxine Mood disorder Continue home meds Full Code Attending:?Dr. Leach DVT Prophylaxis: Heparin Pt will require a hospitalization of at least two nights for treatment and management of?PermCath line infection with IV antibiotics, repeat blood cultures, and line replacement with specialist consultation. Time Spent With Patient Time: Total time managing care of this patient today ____ minutes. Quality Stroke Does the patient have a stroke diagnosis?: No VTE Prior VTE?: No VTE Risk Level:: Medical - moderate - high VTE Device Contraindication: Treatment Not Indicated VTE Drug Contraindication: N/A - Med Ordered
--- NOTE | 2023-03-12 18:20 | PHA.PROG ---
Addendum entered by Kristina Aguirre RPh 03/12/23 19:05: Random level came back at 25. This was drawn right after vancomycin 500 mg was finished infusing. Original Note: Admission Date/Time: March 12, 2023 17:43 Indication: Catheter infection, cellulitis Weight in k kg Adjusted body weight in Kg: [place] body weight in Kg: Obesity Dosing Indication % IBW: Serum Creatinine - Last 168 Hours 03/12/23 14:12 Creatinine 7.10 H* Estimated CrCl and GFR - Last 168 Hours 03/12/23 14:12 Estim Creat Clear Calc 13.2 Estimated GFR 8 Vancomycin Loading Dose: N/A Current Vancomycin Dosing Regimen: dose by diaylsis Date and Time for next Vancomycin Level to be drawn: 03/15 @ 1800 Pharmacist Comments on Vancomycin Plan: Patient on vancomycin 500 mg MoWeFr at home due to MSSA bacteremia. Patient suppose to receive vanco until 03/17 per discharge summary Patient received vancomycin 500 mg in the ER on 03/12/23, dose was given prior to a random level being drawn Patient is scheduled to get a temporary cath tomorrow 03/13/23, then will receive dialysis. Random level is schedule to be pulled after dialysis Pharmacy will follow dialysis schedule daily Kristina Aguirre, PharmD Vancomycin dosing will take advantage of [employer] as a clinical decision support tool that uses Bayesian modeling to calculate individual patient's pharmacokinetic parameters and forecast the patient's drug concentration time course with the target goal AUC 24 range of 400 - 600 mg/L/hr.
[2023-03-12] MEDS: Heparin Sodium,Porcine 5,000 UNIT/ML VIAL 5000 UNIT SUBCUT (18:26)
[2023-03-12] MEDS: Calcium Gluconate/NaCl,Iso-Osm 2 GM/100 ML PLAST..BAG IV (18:26)
[2023-03-12 18:50] LABS: Vancomycin Trough 25.9 mcg/mL (10.0-20.0)
[2023-03-12] MEDS: Calcium Carbonate 750 MG TAB.CHEW PO ×2 (19:07)
[2023-03-12 19:48] LABS: Alanine Aminotransferase 11 U/L (0-40); Albumin Level 3.2 g/dL (3.5-5.0); Alkaline Phosphatase 90 U/L (39-117); Aspartate Amino Transferase 19 U/L (5-37); Bilirubin Direct 0.1 mg/dL (0.0-0.5); Bilirubin Total 0.3 mg/dL (0.0-1.0); Lipase 33 U/L (8-78); Total Protein 7.1 g/dL (6.5-8.0)
[2023-03-12] MEDS: ondansetron HCL 4 MG/2 ML VIAL IVPUSH (20:27)
[2023-03-12] MEDS: 0.9 % Sodium Chloride Flush 3 ML SYRINGE IVFLUSH (20:28)
[2023-03-12 20:39] VITALS: BMI 32.2
[2023-03-12 20:44] VITALS: BP 162/60; PULSE 119; RESP 20; TEMP 38.6; O2SAT 93
[2023-03-12] MEDS: Sevelamer Carbonate Tablet 800 MG TABLET 1600 MG PO (21:18)
[2023-03-12 22:30] LABS: MANUAL DIFF FLAG NO
[2023-03-12 22:35] LABS: Basophils Percent Auto 0.3 % (0-2); Eosinophils Percent Auto 0.3 % (0-4); Hematocrit 23.9 % (42.0-52.0); Hemoglobin 7.9 g/dl (14.0-18.0); Imm Gran Abs Auto 0.06 X10*3/uL (0.00-0.03); Imm Gran Pct Auto 0.5 % (0.0-0.4); Lymphocytes Absolute Auto 0.4 X10*3/uL (1.2-4.9); Lymphocytes Percent Auto 3.3 % (20-40); Mean Corpuscular HGB Conc 33.1 g/dl (31.0-36.0); Mean Corpuscular Volume 96.8 fL (80.0-98.0); Mean Platelet Volume 9.4 fL (9.4-12.4); Monocytes Percent Auto 8.3 % (2-11); Neutrophils Percent Auto 87.3 % (45-73); Platelet Count 194 X10*3/uL (160-400); Red Blood Count 2.47 X10*6/uL (4.60-5.80); Red Cell Distribution Width 13.8 % (11.0-16.0); White Blood Count 11.4 X10*3/uL (4.8-10.8)
[2023-03-12 22:43] LABS: Lactic Acid 1.2 mmol/L (0.5-2.0)
[2023-03-13] VITALS (10 sets, daily range): BP systolic 102–173; BP diastolic 54–83; PULSE 84–106; RESP 14–20; TEMP 36.4–37.8; O2SAT 91–95
[2023-03-13] MEDS: Heparin Sodium,Porcine 5,000 UNIT/ML VIAL 5000 UNIT SUBCUT (01:25)
[2023-03-13] MEDS: Acetaminophen 325 MG TABLET 650 MG PO ×2 (01:52→15:02)
--- NOTE | 2023-03-13 01:56 | PC.NURSE ---
Addendum entered by Maria Teresa Newman RN 03/13/23 05:42: 05:28 i was sent a message by the microbiology lab stating that pt in room 374 have positive blood cultures, 2 sets out of 2 positive with gram positive cocci. Dr. Rea was notified at 05:32 Addendum entered by Maria Teresa Newman RN 03/13/23 02:56: [id number] [facility] from ED. Upon arrival he vomited large amount of coffee ground, PRN Zofran was given. Vitals T 101.4, AL 119, BP 162/60, O2 92. Dr. Vega was notified Original Note: pt in room 374 [place] had oral tempt taken at 01:24, tempt was (100.6). He was given PRN tylenol around 10: 30 pm, med had no effectiveness. Pt is not due for next PRN until 04:00. was notified. Pt also complained of really bad heart burn, Dr Vega was notified.
[2023-03-13] MEDS: ondansetron HCL 4 MG/2 ML VIAL IVPUSH (04:17)
[2023-03-13] MEDS: Levothyroxine Sodium 75 MCG TABLET PO (05:19)
[2023-03-13 06:29] LABS: Hematocrit 21.7 % (42.0-52.0); Hemoglobin 7.1 g/dl (14.0-18.0); Mean Corpuscular HGB Conc 32.7 g/dl (31.0-36.0); Mean Corpuscular Hemoglobin 31.8 pg (27.0-33.0); Mean Corpuscular Volume 97.3 fL (80.0-98.0); Mean Platelet Volume 10.1 fL (9.4-12.4); Platelet Count 172 X10*3/uL (160-400); Red Blood Count 2.23 X10*6/uL (4.60-5.80); White Blood Count 9.7 X10*3/uL (4.8-10.8)
[2023-03-13 06:49] LABS: Anion Gap 17 (12-20); Blood Urea Nitrogen 60 mg/dL (9-16); Calcium 9.3 mg/dL (8.4-10.2); Carbon Dioxide 20 mmol/L (22-29); Chloride 103 mmol/L (96-108); Creatinine Clr Calc Pharmacy 11.3; Estimated Glomerular Filt Rate 7; Glucose Random 215 mg/dL (60-115); Potassium 5.1 mmol/L (3.3-5.1); Sodium 135 mmol/L (135-145)
--- NOTE | 2023-03-13 07:15 | PHA.MEDREC ---
Pharmacy Consult ? Medication Reconciliation Pharmacy has completed the medication reconciliation.
[2023-03-13] MEDS: Torsemide 20 MG TABLET 40 MG PO ×2 (07:59→16:59)
[2023-03-13] MEDS: Calcium Carbonate 750 MG TAB.CHEW PO ×3 (08:00→19:57)
[2023-03-13] MEDS: Sertraline HCL 25 MG TABLET PO (08:00)
[2023-03-13] MEDS: 0.9 % Sodium Chloride Flush 3 ML SYRINGE IVFLUSH ×2 (08:00→17:00)
[2023-03-13] MEDS: Atorvastatin Calcium 40 MG TABLET PO (08:00)
[2023-03-13] MEDS: Sevelamer Carbonate Tablet 800 MG TABLET 1600 MG PO ×3 (08:00→19:56)
--- NOTE | 2023-03-13 10:32 | P.PNIM_ITS ---
Subjective Subjective Date of Service: 03/13/23 Interval History: Seen and evaluated Had episode of coffee ground emesis at night time drop in Hb to 7.1 the Permacath was never removed by ED Plan for dialysis today Review of Systems reporting Chills Stomach ache, Generalized malaise Purulent discharge from PermCath site Denies chest pain/pressure, palpitations No shortness of breath Physical Exam Vital Signs: Vital Signs: Last Vital Signs Temp 98.1 F 03/13/23 07:32 Pulse 87 03/13/23 07:32 Resp 16 03/13/23 07:32 BP 120/58 L 03/13/23 07:32 Pulse Ox 95 03/13/23 07:32 O2 Del Method Room Air 03/13/23 07:32 BMI result Body Mass Index 32.2 Const: Other: Constitutional : Awake, interactive, not in distress Neck : Normal inspection, Supple Cardiovascular : RRR, no JVP, +1 lower extremity edema Respiratory : good bilateral air entry, no crackles, wheezes or rhonchi Gastrointestinal: soft, lax, Normal bowel sounds, Non tender Skin : Warm, Dry Vascular: Permacath site erythema and warmth Neurological : Alert & oriented x3, No focal deficit Objective Data Active Medications Acetaminophen (Acetaminophen 325 Mg Tablet) 650 mg PO Q6H PRN PRN Reason: Pain, Mild (Pain Scale 1-3) Last Admin: 03/12/23 21:57 Dose: 650 mg Documented By: FITO Atorvastatin Calcium (Atorvastatin Calcium 40 Mg Tablet) 40 mg PO DAILY [facility] Last Admin: 03/13/23 08:00 Dose: 40 mg Documented By: JULIAN Calcium Carbonate (Calcium Carbonate 750 Mg Tab.Chew) 750 mg PO TID [facility] Last Admin: 03/13/23 08:00 Dose: 750 mg Documented By: JULIAN Docusate Sodium (Docusate Sodium 100 Mg Capsule) 100 mg PO DAILY PRN PRN Reason: Constipation Ergocalciferol (Ergocalciferol (Vitamin D2) 1,250 Mcg Capsule) 1,250 mcg PO FR@0900 [facility] Heparin Sodium (Porcine) (Heparin Sodium,Porcine 5,000 Unit/Ml Vial) 5,000 unit SUBCUT Q8H [facility] Last Admin: 03/13/23 01:25 Dose: 5,000 unit Documented By: HO.RODRANG Cefepime HCl 0.5 gm/ Sodium (Chloride) 50 mls @ 100 mls/hr IV Q24H [facility] Vancomycin HCl 500 mg/ Sodium (Chloride) 110 mls @ 110 mls/hr IV ONCE ONE Stop: 03/13/23 20:59 Levothyroxine Sodium (Levothyroxine Sodium 75 Mcg Tablet) 75 mcg PO DAILY@0600 [facility] Last Admin: 03/13/23 05:19 Dose: 75 mcg Documented By: FITO Ondansetron HCl (Ondansetron Hcl 4 Mg/2 Ml Vial) 4 mg IVPUSH Q8H PRN PRN Reason: Nausea and Vomiting Last Admin: 03/13/23 04:17 Dose: 4 mg Documented By: FITO Pharmacy Consult (Consult Rx Vancomycin Dosing) 1 each MISCELLANE DAILY PRN PRN Reason: Consult order Sertraline HCl (Sertraline Hcl 25 Mg Tablet) 25 mg PO DAILY [facility] Last Admin: 03/13/23 08:00 Dose: 25 mg Documented By: JULIAN Sevelamer Carbonate (Sevelamer Carbonate Tablet 800 Mg Tablet) 1,600 mg PO TID [facility] Last Admin: 03/13/23 08:00 Dose: 1,600 mg Documented By: JULIAN Sodium Chloride (0.9 % Sodium Chloride Flush 3 Ml Syringe) 3 ml IVFLUSH QSHIFT [facility] Last Admin: 03/13/23 08:00 Dose: 3 ml Documented By: JULIAN Torsemide (Torsemide 20 Mg Tablet) 40 mg PO BID@0900,1400 [facility]; Protocol Last Admin: 03/13/23 07:59 Dose: 40 mg Documented By: JULIAN Labs 03/13/23 05:53 03/13/23 05:53 Labs: Laboratory Results - last 24 hr 03/12/23 03/12/23 03/12/23 14:12 14:12 14:12 MCV 96.3 MCH 32.2 MCHC 33.5 RDW 13.8 Plt Count 239 MPV 9.7 Immature Gran % (Auto) 0.8 H Neut % (Auto) 88.7 H Lymph % (Auto) 2.9 L [place] % (Auto) 5.7 Eos % (Auto) 1.5 Baso % (Auto) 0.4 Lymph # (Auto) 0.4 L [place] # (Auto) 0.8 Eos # (Auto) 0.2 Baso # (Auto) 0.1 Abs Immat Gran (auto) 0.10 H Absolute Neuts (auto) 11.6 H Absolute Nucleated RBC 0.000 Nucleated RBC % (auto) 0.0 Anion Gap 20 Estim Creat Clear Calc 13.2 Estimated GFR 8 Random Glucose 224 H Lactic Acid 1.6 Calcium 9.9 D Total Bilirubin Direct Bilirubin AST ALT Alkaline Phosphatase B-Natriuretic Peptide Total Protein Albumin Lipase Urine Color Urine Appearance Urine pH Ur Specific [place] Urine Protein Urine Glucose (UA) Urine Ketones Urine Blood Urine Nitrite Ur Leukocyte Esterase Urine RBC Urine WBC Ur Squamous Epith Cells Urine Bacteria Hyaline Casts Vancomycin Trough COVID-19 ([facility]) COVID-19 Clin Com 03/12/23 03/12/23 03/12/23 14:12 14:41 14:41 MCV MCH MCHC RDW Plt Count MPV Immature Gran % (Auto) Neut % (Auto) Lymph % (Auto) [place] % (Auto) Eos % (Auto) Baso % (Auto) Lymph # (Auto) [place] # (Auto) Eos # (Auto) Baso # (Auto) Abs Immat Gran (auto) Absolute Neuts (auto) Absolute Nucleated RBC Nucleated RBC % (auto) Anion Gap Estim Creat Clear Calc Estimated GFR Random Glucose Lactic Acid Calcium Total Bilirubin 0.3 Direct Bilirubin 0.1 AST 19 ALT 11 Alkaline Phosphatase 90 B-Natriuretic Peptide 228 H Total Protein 7.1 Albumin 3.2 L Lipase 33 Urine Color Urine Appearance Urine pH Ur Specific [place] Urine Protein Urine Glucose (UA) Urine Ketones Urine Blood Urine Nitrite Ur Leukocyte Esterase Urine RBC Urine WBC Ur Squamous Epith Cells Urine Bacteria Hyaline Casts Vancomycin Trough COVID-19 ([facility]) Negative COVID-19 Clin Com See Note 03/12/23 03/12/23 03/12/23 14:41 18:06 22:24 MCV 96.8 MCH 32.0 MCHC 33.1 RDW 13.8 Plt Count 194 MPV 9.4 Immature Gran % (Auto) 0.5 H Neut % (Auto) 87.3 H Lymph % (Auto) 3.3 L [place] % (Auto) 8.3 Eos % (Auto) 0.3 Baso % (Auto) 0.3 Lymph # (Auto) 0.4 L [place] # (Auto) 1.0 Eos # (Auto) 0.0 Baso # (Auto) 0.0 Abs Immat Gran (auto) 0.06 H Absolute Neuts (auto) 10.0 H Absolute Nucleated RBC 0.000 Nucleated RBC % (auto) 0.0 Anion Gap Estim Creat Clear Calc Estimated GFR Random Glucose Lactic Acid Calcium Total Bilirubin Direct Bilirubin AST ALT Alkaline Phosphatase B-Natriuretic Peptide Total Protein Albumin Lipase Urine Color Yellow Urine Appearance Clear Urine pH 7.5 Ur Specific [place] 1.020 Urine Protein >=1000 (4+) H Urine Glucose (UA) >=1000 H Urine Ketones Trace Urine Blood Small (1+) H Urine Nitrite Negative Ur Leukocyte Esterase Negative Urine RBC 0-2 Urine WBC 6-10 H Ur Squamous Epith Cells 0-2 Urine Bacteria None Seen Hyaline Casts 6-10 Vancomycin Trough 25.9 H* COVID-19 ([facility]) COVID-19 [facility] 03/12/23 03/13/23 03/13/23 22:24 05:53 05:53 MCV 97.3 MCH 31.8 MCHC 32.7 RDW 14.0 Plt Count 172 MPV 10.1 Immature Gran % (Auto) Neut % (Auto) Lymph % (Auto) [place] % (Auto) Eos % (Auto) Baso % (Auto) Lymph # (Auto) [place] # (Auto) Eos # (Auto) Baso # (Auto) Abs Immat Gran (auto) Absolute Neuts (auto) Absolute Nucleated RBC 0.000 Nucleated RBC % (auto) 0.0 Anion Gap 17 Estim Creat Clear Calc 11.3 Estimated GFR 7 Random Glucose 215 H Lactic Acid 1.2 Calcium 9.3 D Total Bilirubin Direct Bilirubin AST ALT Alkaline Phosphatase B-Natriuretic Peptide Total Protein Albumin Lipase Urine Color Urine Appearance Urine pH Ur Specific [place] Urine Protein Urine Glucose (UA) Urine Ketones Urine Blood Urine Nitrite Ur Leukocyte Esterase Urine RBC Urine WBC Ur Squamous Epith Cells Urine Bacteria Hyaline Casts Vancomycin Trough COVID-19 ([facility]) COVID-19 [employer] Microbiology Microbiology Results: Microbiology 03/12/23 14:41 Blood Culture - Preliminary Blood - Venous Prelim: GPC Gram Stain only 03/12/23 14:12 Blood Culture - Preliminary Blood - Venous Prelim: GPC Gram Stain only Assessment and Plan (1) Intravenous line infection: Status: Acute (2) Leukocytosis: Status: Acute (3) Line sepsis associated with dialysis catheter: Status: Acute (4) ESRD on dialysis: Status: Acute (5) Sepsis: Status: Acute (6) GI bleed: Status: Acute (7) Acute on chronic blood loss anemia: Status: Acute Plan Pt is a 67-year-old male with a PMH significant for?ESRD on HD M/W/F d/t nephrotic syndrome, HFpEF, 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 Patient states that he has been experiencing fever, chills, nausea, headache, and stomach ache after waking up today. GPC bacteremia 2/2 sepsis from PermCath site infection Patient with history of MSSA bacteremia, Cx growing GPC now Line tip to be tested for bacteria Pending repeat cultures Permacath was not removed by ED, to do dialysis and take it out afterward. Dr Bravo to place new one tomorrow IV antibiotics: Cefepime 500 mg QD and vancomycin, started 03/12/2023 ID consult ESRD on HD M/W/F To do dialysis today Permacath was not removed by ED, to do dialysis and take it out afterward. Dr Bravo to place new one tomorrow Nephrology consult Hyperkalemia resolved Acute on chronic anemia 2/2 acute blood loss Hb dropped to 7.1 this morning w reported coffee ground emesis overnight give 2 units of blood Pantoprazole IV , Carafate Hold heparin GI consult HTN BP a little soft, will hold losartan for now HFpEF Does not appear to be in acute exacerbation Continue home torsemide CAD/HLD Continue statin Hypothyroidism Continue levothyroxine Mood disorder Continue home meds Full Code DVT Prophylaxis: SCDs Pt will require a hospitalization overnight for treatment of?PermCath line infection with IV antibiotics, repeat blood cultures, and line replacement with specialist consultation. Time Spent With Patient Time: Total time managing care of this patient today ____ minutes. Quality Stroke Does the patient have a stroke diagnosis?: No VTE Prior VTE?: No VTE Risk Level:: Medical - moderate - high VTE Device Contraindication: Treatment Not Indicated VTE Drug Contraindication: N/A - Med Ordered
[2023-03-13] MEDS: Sucralfate 1 GM TABLET PO ×3 (11:02→19:57)
[2023-03-13] MEDS: Pantoprazole Sodium 40 MG/10 ML VIAL IVPUSH ×2 (11:03→17:01)
--- NOTE | 2023-03-13 11:50 | P.CONNP_ITS ---
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 Patient states that he has been experiencing fever, chills, nausea, headache, and stomach ache after waking up today.? Patient admits he has been itching and scratching at his PermCath site and that it has occasionally oozed prurulent discharge.? Patient also notes he missed dialysis today due to feeling unwell and presenting to the emergency department.? Of note, patient was admitted 3 weeks prior on 02/16/2023-02/24/2023 for similar presentation of a PermCath site line infection with MSSA bacteremia.? Patient had his line placed and was started on IV antibiotics and discharged home on 3 weeks of vancomycin with dialysis. Pt to have his current catheter removed in the ED. Dr. Bravo consulted, will place temporary dialysis catheter tomorrow and patient will then be subsequently dialyzed.? Patient denies chest pain/pressure, palpitations.? No shortness of breath. Review of Systems Review of Systems No headache. No nausea vomiting. No abdominal pain. No shortness of breath. No cough. No dysuria urgency or hematuria. 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 Surgical History Surgical History H/O aortic valve replacement Social History Social History Household Members: None Housing: Apartment Do you presently have visiting nurse or other home services: No Unable to assess alcohol history related to: Unknown Alcohol intake: never Patient Tobacco Use Status: Former Tobacco user Quit Date: 5 years ago Tobacco use type: Cigarette Years Smoked: 30 e-Cigarette/Vaping Use: Never Used Second Hand Smoke Exposure: No Advance Directives Date on File: 05/01/20 service: No Current occupational status: unemployed and disabled Meds Allergies Allergy/AdvReac Type Severity Reaction Status Date / Time Penicillins Allergy Unknown UNKWN Verified 07/24/22 09:42 Active Medications: Current Medications Acetaminophen (Acetaminophen 325 Mg Tablet) 650 mg PO Q6H PRN PRN Reason: Pain, Mild (Pain Scale 1-3) Last Admin: 03/12/23 21:57 Dose: 650 mg Atorvastatin Calcium (Atorvastatin Calcium 40 Mg Tablet) 40 mg PO DAILY [facility] Last Admin: 03/13/23 08:00 Dose: 40 mg Calcium Carbonate (Calcium Carbonate 750 Mg Tab.Chew) 750 mg PO TID [facility] Last Admin: 03/13/23 08:00 Dose: 750 mg Docusate Sodium (Docusate Sodium 100 Mg Capsule) 100 mg PO DAILY PRN PRN Reason: Constipation Ergocalciferol (Ergocalciferol (Vitamin D2) 1,250 Mcg Capsule) 1,250 mcg PO FR@0900 [facility] Heparin Sodium (Porcine) (Heparin Sodium,Porcine 5,000 Unit/Ml Vial) 5,000 unit SUBCUT Q8H [facility] Last Admin: 03/13/23 01:25 Dose: 5,000 unit Cefepime HCl 0.5 gm/ Sodium (Chloride) 50 mls @ 100 mls/hr IV Q24H [facility] Vancomycin HCl 500 mg/ Sodium (Chloride) 110 mls @ 110 mls/hr IV ONCE ONE Stop: 03/13/23 20:59 Levothyroxine Sodium (Levothyroxine Sodium 75 Mcg Tablet) 75 mcg PO DAILY@0600 [facility] Last Admin: 03/13/23 05:19 Dose: 75 mcg Ondansetron HCl (Ondansetron Hcl 4 Mg/2 Ml Vial) 4 mg IVPUSH Q8H PRN PRN Reason: Nausea and Vomiting Last Admin: 03/13/23 04:17 Dose: 4 mg Pantoprazole Sodium (Pantoprazole Sodium 40 Mg/10 Ml Vial) 40 mg IVPUSH BID@0630,1630 [facility] Last Admin: 03/13/23 11:03 Dose: 40 mg Pharmacy Consult (Consult Rx Vancomycin Dosing) 1 each MISCELLANE DAILY PRN PRN Reason: Consult order Sertraline HCl (Sertraline Hcl 25 Mg Tablet) 25 mg PO DAILY [facility] Last Admin: 03/13/23 08:00 Dose: 25 mg Sevelamer Carbonate (Sevelamer Carbonate Tablet 800 Mg Tablet) 1,600 mg PO TID [facility] Last Admin: 03/13/23 08:00 Dose: 1,600 mg Sodium Chloride (0.9 % Sodium Chloride Flush 3 Ml Syringe) 3 ml IVFLUSH QSHIFT [facility] Last Admin: 03/13/23 08:00 Dose: 3 ml Sucralfate (Sucralfate 1 Gm Tablet) 1 gm PO QIDACHS [facility] Last Admin: 03/13/23 11:02 Dose: 1 gm Torsemide (Torsemide 20 Mg Tablet) 40 mg PO BID@0900,1400 [facility]; Protocol Last Admin: 03/13/23 07:59 Dose: 40 mg Home Medications Medication Instructions Recorded Confirmed Last Taken Type levothyroxine 75 mcg tablet 75 mcg PO DAILY@0606/27/20 03/12/23 2 Days Ago History ~02/14/23 atorvastatin 40 mg tablet 40 mg PO DAILY 02/10/22 03/12/23 2 Days Ago History ~02/14/23 sertraline 25 mg tablet 1 tab PO DAILY 10/03/22 03/12/23 2 Days Ago History ~02/14/23 calcium carbonate 400 mg calcium 400 mg PO TID 02/16/23 03/12/23 2 Days Ago History (1,000 mg) chewable tablet (Ultra ~02/14/23 Strength Antacid) ergocalciferol (vitamin D2) 1,250 1,250 mcg PO FR@0902/16/23 03/12/23 2 Days Ago History mcg (50,000 unit) capsule ~02/14/23 losartan 50 mg tablet 50 mg PO DAILY 02/16/23 03/12/23 2 Days Ago History ~02/14/23 sevelamer carbonate 800 mg tablet 1,600 mg PO TID 02/16/23 03/12/23 2 Days Ago History ~02/14/23 torsemide 20 mg tablet 40 mg PO BID@0900,1400 02/16/23 03/12/23 2 Days Ago History ~02/14/23 Physical Exam Vital Signs: Last Vital Signs Temp 98.1 F 03/13/23 07:32 Pulse 87 03/13/23 07:32 Resp 16 03/13/23 07:32 BP 120/58 L 03/13/23 07:32 Pulse Ox 95 03/13/23 07:32 O2 Del Method Room Air 03/13/23 07:32 BMI result Body Mass Index 32.2 Comfortable Neck is supple Lung: Air entry equal Heart: S1,S2, normal. No rub Abd: Soft. BS + NS : Alert.No asterexis PermCath exit site has excoriation Results Lab Results 03/13/23 05:53 03/13/23 05:53 Lab results: Chemistry 03/12/23 03/13/23 14:12 05:53 Sodium 135 135 Potassium 5.9 H D 5.1 Carbon Dioxide 19 L 20 L BUN 51 H 60 H Creatinine 7.10 H* 8.01 H* Calcium 9.9 D 9.3 D Hematology 03/12/23 03/12/23 03/13/23 14:12 22:24 05:53 WBC 13.1 H 11.4 H 9.7 Hgb 8.7 L 7.9 L 7.1 L Plt Count 239 194 172 Urinalysis 03/12/23 14:41 Urine Color Yellow Urine Appearance Clear Urine pH 7.5 Ur Specific [place] 1.020 Urine Protein >=1000 (4+) H Urine Glucose (UA) >=1000 H Urine Ketones Trace Urine Blood Small (1+) H Urine Nitrite Negative Ur Leukocyte Esterase Negative Urine RBC 0-2 Urine WBC 6-10 H Ur Squamous Epith Cells 0-2 Hyaline Casts 6-10 Assessment and Plan (1) ESRD on dialysis: Status: Acute Plan 1. ESRD. We will arrange for dialysis. 2. Hyperkalemia Lokelma x1 dose. We will use low-potassium bath during dialysis to correct hyperkalemia Keep on low-potassium diet 3. Bacteremia. The dialysis catheter site might be the potential source. Catheter needs to be removed. Catheter holiday for 48 hours and we can insert a temporary line for future dialysis. Agree with antibiotic coverage. 4. Anemia. Resume Epogen 86708 units once a week Time Spent With Patient Time: Total time managing care of this patient today ____ minutes. Procedures Date of Service Date of Service: 03/15/23
--- NOTE | 2023-03-13 14:43 | TAR.NOTE ---
1st unit blood given during dialysis by dialysis Nurse. Pt. tolerates well.
--- NOTE | 2023-03-13 15:06 | MHC.CM.PN ---
PT LIVES ALONE AND HAS A EXTRACORPOREAL CIRCULATION SPECIALIST FROM [facility] THAT PROVIDES ASSISTANCE WITH HOUSEKEEPING AND ERRANDS HE ATTENDS HD AT [facility] PT DENIES USING DME HE REPORTS HAVING A HCP-COPY REQUESTED PCP: CHACHO HFOFMANN IMM DELIVERED DCP: HOME, RESUME [facility] PT WILL NEED ASSISTANCE WITH TRANSPORTATION
--- NOTE | 2023-03-13 16:51 | PM.EVENT ---
Event Note Date of Service: 03/13/23 Event Note: Return from dialysis. Watson removed with out incident. Pressure dressing applied after 10 minutes of direct pressure. Tip sent for culture Time Spent With Patient Time: Total time managing care of this patient today ____ minutes.
--- NOTE | 2023-03-13 17:07 | TAR.NOTE ---
2nd unit of blood given in dialysis.
[2023-03-13] MEDS: cefEPime HCl 0.5 GM in 0.9 % Sodium Chloride 50 ML IV (18:19)
[2023-03-13 18:44] LABS: Vancomycin Random 15.1 mcg/mL (15-20)
[2023-03-13 21:30] LABS: Hematocrit 26.5 % (42.0-52.0); Hemoglobin 8.8 g/dl (14.0-18.0); Mean Corpuscular HGB Conc 33.2 g/dl (31.0-36.0); Mean Corpuscular Hemoglobin 30.9 pg (27.0-33.0); Mean Platelet Volume 10.1 fL (9.4-12.4); Platelet Count 181 X10*3/uL (160-400); Red Blood Count 2.85 X10*6/uL (4.60-5.80); Red Cell Distribution Width 17.1 % (11.0-16.0); White Blood Count 8.3 X10*3/uL (4.8-10.8)
[2023-03-14 03:09] VITALS: BP 114/57; PULSE 91; RESP 14; TEMP 37.2; O2SAT 96
--- NOTE | 2023-03-14 05:10 | PC.NURSE ---
Addendum entered by Maria Teresa Newman RN 03/14/23 06:22: 06:15 Microbiology lab called and said that Pt in room 374 positive blood culture is 2 sets out of 2 instead of 1 set out of two. Dr. Vega was notified at 06:20 Original Note: 05:00 Microbiology lab sent a text for blood culture labs on Pt in room 374. They stated that he has a positive blood cultures, 1 set out of 2 positive with gram positive cocci. Dr. Vega was notified at 05:05.
[2023-03-14] MEDS: Levothyroxine Sodium 75 MCG TABLET PO (05:33)
[2023-03-14] MEDS: Pantoprazole Sodium 40 MG/10 ML VIAL IVPUSH ×2 (05:33→16:11)
[2023-03-14 06:35] LABS: Anion Gap 16 (12-20); Blood Urea Nitrogen 36 mg/dL (9-16); Calcium 8.6 mg/dL (8.4-10.2); Carbon Dioxide 22 mmol/L (22-29); Chloride 102 mmol/L (96-108); Creatinine Clr Calc Pharmacy 15.3; Estimated Glomerular Filt Rate 10; Glucose Random 139 mg/dL (60-115); Sodium 135 mmol/L (135-145)
[2023-03-14 07:05] LABS: Hematocrit 28.7 % (42.0-52.0); Hemoglobin 9.4 g/dl (14.0-18.0); Mean Corpuscular HGB Conc 32.8 g/dl (31.0-36.0); Mean Corpuscular Hemoglobin 30.6 pg (27.0-33.0); Mean Corpuscular Volume 93.5 fL (80.0-98.0); Mean Platelet Volume 10.2 fL (9.4-12.4); Platelet Count 205 X10*3/uL (160-400); Red Blood Count 3.07 X10*6/uL (4.60-5.80); Red Cell Distribution Width 17.3 % (11.0-16.0); White Blood Count 9.5 X10*3/uL (4.8-10.8)
[2023-03-14 07:24] VITALS: BP 124/57; PULSE 89; RESP 20; TEMP 37.1; O2SAT 95
[2023-03-14] MEDS: Sucralfate 1 GM TABLET PO ×4 (08:11→20:27)
[2023-03-14] MEDS: Calcium Carbonate 750 MG TAB.CHEW PO ×3 (08:11→20:27)
[2023-03-14] MEDS: Atorvastatin Calcium 40 MG TABLET PO (08:11)
[2023-03-14] MEDS: Sertraline HCL 25 MG TABLET PO (08:12)
[2023-03-14] MEDS: Torsemide 20 MG TABLET 40 MG PO ×2 (08:12→14:35)
[2023-03-14] MEDS: Sevelamer Carbonate Tablet 800 MG TABLET 1600 MG PO ×3 (08:12→20:27)
[2023-03-14] MEDS: 0.9 % Sodium Chloride Flush 3 ML SYRINGE IVFLUSH ×3 (08:16→19:38)
--- NOTE | 2023-03-14 10:44 | HO.PM.IMPN ---
Subjective Subjective Date of Service: 03/14/23 Interval History: Seen and evaluated No more episodes of hematemesis last night Hb improved to 9.4 after 2 units transfusion the Permacath was removed, cultures pending Review of Systems Review of Systems: Yes all other systems are reviewed and are negative Physical Exam Vital Signs: Vital Signs: Last Vital Signs Temp 98.8 F 03/14/23 07:24 Pulse 89 03/14/23 07:24 Resp 20 03/14/23 07:24 BP 124/57 L 03/14/23 07:24 Pulse Ox 95 03/14/23 07:24 O2 Del Method Room Air 03/14/23 07:24 BMI result Body Mass Index 32.2 Const: Other: Constitutional : Awake, interactive, not in distress Neck : Normal inspection, Supple Cardiovascular : RRR, no JVP, trace lower extremity edema Respiratory : good bilateral air entry, no crackles, wheezes or rhonchi Gastrointestinal: soft, lax, Normal bowel sounds, Non tender Skin : Warm, Dry Vascular: chest wall erythema and warmth at site of prev permacath covered with dressing Neurological : Alert & oriented x3, No focal deficit Objective Data Active Medications Acetaminophen (Acetaminophen 325 Mg Tablet) 650 mg PO Q6H PRN PRN Reason: Pain, Mild (Pain Scale 1-3) Last Admin: 03/13/23 15:02 Dose: 650 mg Documented By: JULIAN Atorvastatin Calcium (Atorvastatin Calcium 40 Mg Tablet) 40 mg PO DAILY [facility] Last Admin: 03/14/23 08:11 Dose: 40 mg Documented By: CARMEL Calcium Carbonate (Calcium Carbonate 750 Mg Tab.Chew) 750 mg PO TID [facility] Last Admin: 03/14/23 08:11 Dose: 750 mg Documented By: CARMEL Docusate Sodium (Docusate Sodium 100 Mg Capsule) 100 mg PO DAILY PRN PRN Reason: Constipation Ergocalciferol (Ergocalciferol (Vitamin D2) 1,250 Mcg Capsule) 1,250 mcg PO FR@0900 [facility] Heparin Sodium (Porcine) (Heparin Sodium,Porcine 5,000 Unit/Ml Vial) 5,000 unit SUBCUT Q8H [facility] Last Admin: 03/13/23 13:00 Dose: Not Given Documented By: JULIAN Non-Admin Reason: Physician Held Med Cefepime HCl 0.5 gm/ Sodium (Chloride) 50 mls @ 100 mls/hr IV Q24H [facility] Last Infusion: 03/13/23 19:53 Dose: 0 mls/hr Documented By: GLENN Vancomycin HCl 500 mg/ Sodium (Chloride) 110 mls @ 110 mls/hr IV ONCE ONE Stop: 03/13/23 20:59 Levothyroxine Sodium (Levothyroxine Sodium 75 Mcg Tablet) 75 mcg PO DAILY@0600 [facility] Last Admin: 03/14/23 05:33 Dose: 75 mcg Documented By: FITO Ondansetron HCl (Ondansetron Hcl 4 Mg/2 Ml Vial) 4 mg IVPUSH Q8H PRN PRN Reason: Nausea and Vomiting Last Admin: 03/13/23 04:17 Dose: 4 mg Documented By: FITO Pantoprazole Sodium (Pantoprazole Sodium 40 Mg/10 Ml Vial) 40 mg IVPUSH BID@0630,1630 [facility] Last Admin: 03/14/23 05:33 Dose: 40 mg Documented By: FITO Pharmacy Consult (Consult Rx Vancomycin Dosing) 1 each MISCELLANE DAILY PRN PRN Reason: Consult order Sertraline HCl (Sertraline Hcl 25 Mg Tablet) 25 mg PO DAILY [facility] Last Admin: 03/14/23 08:12 Dose: 25 mg Documented By: CARMEL Sevelamer Carbonate (Sevelamer Carbonate Tablet 800 Mg Tablet) 1,600 mg PO TID [facility] Last Admin: 03/14/23 08:12 Dose: 1,600 mg Documented By: CARMEL Sodium Chloride (0.9 % Sodium Chloride Flush 3 Ml Syringe) 3 ml IVFLUSH QSHIFT [facility] Last Admin: 03/14/23 08:16 Dose: 3 ml Documented By: CARMEL Sucralfate (Sucralfate 1 Gm Tablet) 1 gm PO QIDACHS [facility] Last Admin: 03/14/23 08:11 Dose: 1 gm Documented By: CARMEL Torsemide (Torsemide 20 Mg Tablet) 40 mg PO BID@0900,1400 [facility]; Protocol Last Admin: 03/14/23 08:12 Dose: 40 mg Documented By: CARMEL Labs 03/14/23 05:31 03/14/23 05:31 Labs: Laboratory Results - last 24 hr 03/13/23 03/13/2323 10:51 17:58 20:54 MCV 93.0 MCH 30.9 MCHC 33.2 RDW 17.1 H Plt Count 181 MPV 10.1 Absolute Nucleated RBC 0.000 Nucleated RBC % (auto) 0.0 Anion Gap Estim Creat Clear Calc Estimated GFR Random Glucose Calcium Random Vancomycin 15.1 Blood Type A Positive Antibody Screen NEGATIVE Crossmatch See Detail 03/14/23 03/14/23 05:31 05:31 MCV 93.5 MCH 30.6 MCHC 32.8 RDW 17.3 H Plt Count 205 MPV 10.2 Absolute Nucleated RBC 0.000 Nucleated RBC % (auto) 0.0 Anion Gap 16 Estim Creat Clear Calc 15.3 Estimated GFR 10 Random Glucose 139 H Calcium 8.6 D Random Vancomycin Blood Type Antibody Screen Crossmatch Microbiology Microbiology Results: Microbiology 03/13/23 17:32 Catheter Tip Culture - Preliminary Catheter Tip - Other Culture in progress. 03/13/23 05:53 Blood Culture - Preliminary Blood - Venous Prelim: GPC Gram Stain only 03/13/23 05:53 Blood Culture - Preliminary Blood - Venous Prelim: GPC Gram Stain only 03/12/23 14:41 Blood Culture - Preliminary Blood - Venous Staphylococcus aureus 03/12/23 14:12 Blood Culture - Preliminary Blood - Venous Staphylococcus aureus 03/12/23 Unknown Urine Culture - Final Urine clean catch - Urine umaña top Assessment and Plan (1) Acute on chronic blood loss anemia: Status: Acute (2) GI bleed: Status: Acute (3) Intravenous line infection: Status: Acute (4) Staphylococcus aureus bacteremia: Status: Acute (5) Line sepsis associated with dialysis catheter: Status: Acute Plan Pt is a 67-year-old male with a PMH significant for?ESRD on HD M/W/F d/t nephrotic syndrome, HFpEF, 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 Patient states that he has been experiencing fever, chills, nausea, headache, and stomach ache after waking up today. GPC bacteremia 2/2 sepsis from PermCath site infection Patient with history of MSSA bacteremia, Cx growing GPC now Line tip cx pending , blood grew staph Pending repeat cultures Permacath was not removed by ED, to do dialysis and take it out afterward. Dr Bravo to place new one tomorrow IV antibiotics: Cefepime 500 mg QD and vancomycin, started 03/12/2023 ID consult ESRD on HD // Permacath was removed, to place Temp one tomorrow\Wednesday Nephrology following Hyperkalemia resolved Acute on chronic anemia 2/2 acute blood loss Hb improved to 9.4 after 2 units transfusion, no more bloody emesis Pantoprazole IV , Carafate Hold heparin GI following HTN BP a little soft, will hold losartan for now HFpEF Does not appear to be in acute exacerbation Continue home torsemide CAD/HLD Continue statin Hypothyroidism Continue levothyroxine Mood disorder Continue home meds Full Code DVT Prophylaxis: SCDs Pt will require a hospitalization overnight for treatment of?PermCath line infection with IV antibiotics, GI bleed, and line replacement with specialist consultation. Time Spent With Patient Time: Total time managing care of this patient today ____ minutes. Quality Stroke Does the patient have a stroke diagnosis?: No VTE Prior VTE?: No VTE Risk Level:: Medical - moderate - high VTE Device Contraindication: Treatment Not Indicated VTE Drug Contraindication: N/A - Med Ordered
--- NOTE | 2023-03-14 12:33 | PM.GICN ---
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 Patient was initially admitted with fever, chills, nausea, headache and purulent d/c from [facility] which caused him to miss a dialysis session. This was removed after pos BC for GPC and he is receiving ABX therapy for this. On night if admission he had x 2 coffee ground emesis epsiode and HGB 7.1 after having been 8.7 g/dl on admission. He got 2 units of PRBC and HGB about 9 g/dl Currently patients receiving PPI and carafate and says he feels much better and has no abdominal pain, no melena or further nausea, vomiting. Patient denies chest pain/pressure, palpitations.? No shortness of breath. No heartburn and denies steroid or NSAID use Labs--admission: WCC 13.1, H&H of 8.7/26.0, potassium 5.9, BUN 51, creatinine 7.10, BNP 228.? Urine negative for UTI. Review of Systems Review of Systems: Constitutional : No Weight loss, + Fever, No Chills ENT/Mouth : No sore throat, No Rhinorrhea Eyes: No Swelling, No Redness Cardiovascular : No Chest Pain, No SOB, No Edema Respiratory : No Cough, No Sputum, No Wheezing Gastrointestinal : see HPI Genitourinary : NO Dysuria, No Urinary Frequency, No Hematuria, No Urgency Musculoskeletal : No joint pain, No Myalgias, No Joint Swelling Skin : No Skin Lesions, No rash Neuro : No Weakness, No Numbness, No Dizziness, No Headache Psych : No Anxiety/Panic, No Depression Heme/Lymph: No Bruising, No Lymphadenopathy Endocrine : No Polyuria, No Polydipsia All other systems reviewed and are negative. 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 Pertinent family history: No FH of ulcers Surgical History Surgical History H/O aortic valve replacement Social History Social History Household Members: None Housing: Apartment Do you presently have visiting nurse or other home services: No Unable to assess alcohol history related to: Unknown Alcohol intake: never Patient Tobacco Use Status: Former Tobacco user Quit Date: 5 years ago Tobacco use type: Cigarette Years Smoked: 30 e-Cigarette/Vaping Use: Never Used Second Hand Smoke Exposure: No Advance Directives Date on File: 05/01/20 service: No Current occupational status: unemployed and disabled Meds Allergies Allergy/AdvReac Type Severity Reaction Status Date / Time Penicillins Allergy Unknown UNKWN Verified 07/24/22 09:42 Active Medications: Current Medications Acetaminophen (Acetaminophen 325 Mg Tablet) 650 mg PO Q6H PRN PRN Reason: Pain, Mild (Pain Scale 1-3) Last Admin: 03/13/23 15:02 Dose: 650 mg Atorvastatin Calcium (Atorvastatin Calcium 40 Mg Tablet) 40 mg PO DAILY [facility] Last Admin: 03/14/23 08:11 Dose: 40 mg Calcium Carbonate (Calcium Carbonate 750 Mg Tab.Chew) 750 mg PO TID [facility] Last Admin: 03/14/23 08:11 Dose: 750 mg Docusate Sodium (Docusate Sodium 100 Mg Capsule) 100 mg PO DAILY PRN PRN Reason: Constipation Ergocalciferol (Ergocalciferol (Vitamin D2) 1,250 Mcg Capsule) 1,250 mcg PO FR@0900 [facility] Heparin Sodium (Porcine) (Heparin Sodium,Porcine 5,000 Unit/Ml Vial) 5,000 unit SUBCUT Q8H [facility] Last Admin: 03/13/23 13:00 Dose: Not Given Cefepime HCl 0.5 gm/ Sodium (Chloride) 50 mls @ 100 mls/hr IV Q24H [facility] Last Infusion: 03/13/23 19:53 Dose: Infused Vancomycin HCl 500 mg/ Sodium (Chloride) 110 mls @ 110 mls/hr IV ONCE ONE Stop: 03/13/23 20:59 Levothyroxine Sodium (Levothyroxine Sodium 75 Mcg Tablet) 75 mcg PO DAILY@0600 [facility] Last Admin: 03/14/23 05:33 Dose: 75 mcg Ondansetron HCl (Ondansetron Hcl 4 Mg/2 Ml Vial) 4 mg IVPUSH Q8H PRN PRN Reason: Nausea and Vomiting Last Admin: 03/13/23 04:17 Dose: 4 mg Pantoprazole Sodium (Pantoprazole Sodium 40 Mg/10 Ml Vial) 40 mg IVPUSH BID@0630,1630 [facility] Last Admin: 03/14/23 05:33 Dose: 40 mg Pharmacy Consult (Consult Rx Vancomycin Dosing) 1 each MISCELLANE DAILY PRN PRN Reason: Consult order Sertraline HCl (Sertraline Hcl 25 Mg Tablet) 25 mg PO DAILY [facility] Last Admin: 03/14/23 08:12 Dose: 25 mg Sevelamer Carbonate (Sevelamer Carbonate Tablet 800 Mg Tablet) 1,600 mg PO TID [facility] Last Admin: 03/14/23 08:12 Dose: 1,600 mg Sodium Chloride (0.9 % Sodium Chloride Flush 3 Ml Syringe) 3 ml IVFLUSH QSHIFT [facility] Last Admin: 03/14/23 08:16 Dose: 3 ml Sucralfate (Sucralfate 1 Gm Tablet) 1 gm PO QIDACHS [facility] Last Admin: 03/14/23 11:26 Dose: 1 gm Torsemide (Torsemide 20 Mg Tablet) 40 mg PO BID@0900,1400 [facility]; Protocol Last Admin: 03/14/23 08:12 Dose: 40 mg Home Medications Medication Instructions Recorded Confirmed Last Taken Type levothyroxine 75 mcg tablet 75 mcg PO DAILY@0600 06/27/20 03/12/23 2 Days Ago History ~02/14/23 atorvastatin 40 mg tablet 40 mg PO DAILY 02/10/22 03/12/23 2 Days Ago History ~02/14/23 sertraline 25 mg tablet 1 tab PO DAILY 10/03/22 03/12/23 2 Days Ago History ~02/14/23 calcium carbonate 400 mg calcium 400 mg PO TID 02/16/23 03/12/23 2 Days Ago History (1,000 mg) chewable tablet (Ultra ~02/14/23 Strength Antacid) ergocalciferol (vitamin D2) 1,250 1,250 mcg PO FR@0900 02/16/23 03/12/23 2 Days Ago History mcg (50,000 unit) capsule ~02/14/23 losartan 50 mg tablet 50 mg PO DAILY 02/16/23 03/12/23 2 Days Ago History ~02/14/23 sevelamer carbonate 800 mg tablet 1,600 mg PO TID 02/16/23 03/12/23 2 Days Ago History ~02/14/23 torsemide 20 mg tablet 40 mg PO BID@0900,1400 02/16/23 03/12/23 2 Days Ago History ~02/14/23 Physical Exam Vital Signs: Vital Signs: Last Vital Signs Temp 98.8 F 03/14/23 07:24 Pulse 89 03/14/23 07:24 Resp 20 03/14/23 07:24 BP 124/57 L 03/14/23 07:24 Pulse Ox 95 03/14/23 07:24 O2 Del Method Room Air 03/14/23 07:24 BMI result Body Mass Index 32.2 EXAM: GENERAL: The patient is well developed and nontoxic. VITAL SIGNS:see workflow HEENT: Nonicteric sclerae, PERRLA, EOMI. Oropharynx clear. Moist mucous membranes. Conjunctivae appear well perfused. No thyroid mass. CHEST: Chest wall is nontender. HEART: Regular rate and rhythm without murmurs. LUNGS: Clear to auscultation bilaterally. ABDOMEN: Soft, positive bowel sounds, nontender, no organomegaly.no flank tenderness SKIN: No rash, no excessive bruising, petechiae, or purpura. NEUROLOGIC: Cranial nerves II-XII intact without motor/sensory deficit. Psych--nml affect Results Labs 03/14/23 05:31 03/14/23 05:31 Labs: Short CBC 03/13/23 03/14/23 Range/Units 20:54 05:31 WBC 8.3 9.5 (4.8-10.8) X10*3/uL Hgb 8.8 L D 9.4 L (14.0-18.0) g/dl Hct 26.5 L D 28.7 L (42.0-52.0) % Plt Count 181 205 (160-400) X10*3/uL BMP 03/14/23 05:31 Sodium 135 Potassium 5.0 Chloride 102 Carbon Dioxide 22 BUN 36 H Creatinine 5.92 H* Calcium 8.6 D Microbiology Microbiology Results: Microbiology 03/13/23 17:32 Catheter Tip - Other Catheter Tip Culture - Preliminary Culture in progress. 03/13/23 05:53 Blood - Venous Blood Culture - Preliminary Prelim: GPC Gram Stain only 03/13/23 05:53 Blood - Venous Blood Culture - Preliminary Prelim: GPC Gram Stain only 03/12/23 14:41 Blood - Venous Blood Culture - Preliminary Staphylococcus aureus 03/12/23 14:12 Blood - Venous Blood Culture - Preliminary Staphylococcus aureus 03/12/23 Unknown Urine clean catch - Urine umaña top Urine Culture - Final Imaging Chest x-ray: My impression: right basilar interstitial changes Assessment and Plan (1) Acute on chronic blood loss anemia: Status: Acute (2) GI bleed: Status: Acute Plan 1/ Coffee ground emesis on background of GPC sespsis and line infection, likely also has stress induced gastritis or esophagitis and seems to have improved nicely with PPI and carafate. Chronic anemia also from CKD> PLAN: 1/ Hold on EGD for the moment, 2/ Cont with BID PPI, can change to OD if HGB stable, carafate for 1 week 3/ if further drop in HGB then EGD Time Spent With Patient Time: Total time managing care of this patient today ____ minutes. Procedures Date of Service Date of Service: 03/14/23
[2023-03-14 15:52] VITALS: BP 116/56; PULSE 77; RESP 14; TEMP 36.7; O2SAT 95
[2023-03-14] MEDS: cefEPime HCl 0.5 GM in 0.9 % Sodium Chloride 50 ML IV (16:16)
[2023-03-14] MEDS: Docusate Sodium 100 MG CAPSULE PO (17:24)
[2023-03-14 19:38] VITALS: BP 134/60; PULSE 91; RESP 20; TEMP 36.8; O2SAT 93
[2023-03-15 00:53] VITALS: BP 120/60; PULSE 78; RESP 18; TEMP 36.2; O2SAT 96
[2023-03-15 05:42] LABS: Hematocrit 26.7 % (42.0-52.0); Hemoglobin 8.9 g/dl (14.0-18.0); Mean Corpuscular HGB Conc 33.3 g/dl (31.0-36.0); Mean Corpuscular Hemoglobin 30.6 pg (27.0-33.0); Mean Corpuscular Volume 91.8 fL (80.0-98.0); Mean Platelet Volume 10.4 fL (9.4-12.4); Platelet Count 210 X10*3/uL (160-400); Red Blood Count 2.91 X10*6/uL (4.60-5.80); Red Cell Distribution Width 16.6 % (11.0-16.0); White Blood Count 7.6 X10*3/uL (4.8-10.8)
[2023-03-15] MEDS: Pantoprazole Sodium 40 MG/10 ML VIAL IVPUSH ×2 (05:56→16:59)
[2023-03-15] MEDS: Levothyroxine Sodium 75 MCG TABLET PO (05:56)
[2023-03-15 06:00] LABS: Creatinine Clr Calc Pharmacy 11.2; Estimated Glomerular Filt Rate 7
[2023-03-15 07:30] VITALS: BP 108/56; PULSE 73; RESP 16; TEMP 36.1; O2SAT 96
[2023-03-15] MEDS: Sertraline HCL 25 MG TABLET PO (08:14)
[2023-03-15] MEDS: Atorvastatin Calcium 40 MG TABLET PO (08:14)
[2023-03-15] MEDS: Sucralfate 1 GM TABLET PO ×4 (08:14→20:18)
[2023-03-15] MEDS: Torsemide 20 MG TABLET 40 MG PO ×2 (08:14→14:29)
[2023-03-15] MEDS: Calcium Carbonate 750 MG TAB.CHEW PO ×3 (08:15→20:18)
[2023-03-15] MEDS: Sevelamer Carbonate Tablet 800 MG TABLET 1600 MG PO ×3 (08:15→20:17)
[2023-03-15] MEDS: 0.9 % Sodium Chloride Flush 3 ML SYRINGE IVFLUSH ×3 (08:17→19:13)
[2023-03-15 08:49] LABS: Prothrombin Time 11.9 SEC (11.1-13.3)
[2023-03-15 08:52] LABS: Partial Thromboplastin Time 25.3 SEC (26.0-36.4)
--- NOTE | 2023-03-15 10:57 | PM.PNNEP ---
Subjective Subjective Date of Service: 03/16/23 Interval history: Events noted. PermCath removed. Repeat cultures pending Physical Exam Vital Signs: Vital Signs: Last Vital Signs Temp 97.0 F 03/15/23 07:30 Pulse 73 03/15/23 07:30 Resp 16 03/15/23 07:30 BP 108/56 L 03/15/23 07:30 Pulse Ox 96 03/15/23 07:30 O2 Del Method Room Air 03/15/23 07:30 BMI result Body Mass Index 32.2 Const: Other: Constitutional : Awake, interactive, not in distress Neck : Normal inspection, Supple Cardiovascular : RRR, no JVP, trace lower extremity edema Respiratory : good bilateral air entry, no crackles, wheezes or rhonchi Gastrointestinal: soft, lax, Normal bowel sounds, Non tender Skin : Warm, Dry Vascular: chest wall erythema and warmth at site of prev permacath covered with dressing Neurological : Alert & oriented x3, No focal deficit Objective Data Labs 03/15/23 05:14 03/15/23 05:14 Labs: Laboratory Results - last 24 hr 03/15/23 03/15/23 03/15/23 05:14 05:14 08:26 WBC 7.6 RBC 2.91 L Hgb 8.9 L Hct 26.7 L MCV 91.8 MCH 30.6 MCHC 33.3 RDW 16.6 H Plt Count 210 MPV 10.4 Absolute Nucleated RBC 0.000 Nucleated RBC % (auto) 0.0 PT 11.9 INR 1.0 APTT 25.3 L Creatinine 8.05 H* Estim Creat Clear Calc 11.2 Estimated GFR 7 Microbiology Microbiology Results: Microbiology 03/13/23 05:53 Blood - Venous Blood Culture - Preliminary Staphylococcus aureus 03/13/23 05:53 Blood - Venous Blood Culture - Preliminary Staphylococcus aureus 03/12/23 14:41 Blood - Venous Blood Culture - Preliminary Staphylococcus aureus 03/12/23 14:12 Blood - Venous Blood Culture - Preliminary Staphylococcus aureus 03/14/23 05:31 Blood - Venous Blood Culture - Preliminary Prelim: GPC Gram Stain only 03/14/23 05:31 Blood - Venous Blood Culture - Preliminary Prelim: GPC Gram Stain only 03/13/23 17:32 Catheter Tip - Other Catheter Tip Culture - Preliminary Culture in progress. 03/12/23 Unknown Urine clean catch - Urine umaña top Urine Culture - Final Procedures Date of Service Date of Service: 03/16/23 Assessment & Plan Assessment and plan (1) ESRD on dialysis: Status: Acute Plan 1. ESRD. We will arrange for dialysis after catheter insertion 2. Hyperkalemia We will use low-potassium bath during dialysis to correct hyperkalemia Keep on low-potassium diet 3. Bacteremia. Agree with antibiotic coverage. 4. Anemia. Resume Epogen 75805 units once a week Time Spent With Patient Time: Total time managing care of this patient today ____ minutes. Progress Note: Quality Stroke Does the patient have a stroke diagnosis?: No
--- NOTE | 2023-03-15 12:49 | HO.PM.IMPN ---
Subjective Subjective Date of Service: 03/15/23 Interval History: Seen and evaluated No more episodes of hematemesis last night Hb improved to 9.4 after 2 units transfusion New cultures pending Review of Systems Review of Systems: Yes all other systems are reviewed and are negative Physical Exam Vital Signs: Vital Signs: Last Vital Signs Temp 97.0 F 03/15/23 07:30 Pulse 73 03/15/23 07:30 Resp 16 03/15/23 07:30 BP 108/56 L 03/15/23 07:30 Pulse Ox 96 03/15/23 07:30 O2 Del Method Room Air 03/15/23 07:30 BMI result Body Mass Index 32.2 Const: Other: Constitutional : Awake, interactive, not in distress Neck : Normal inspection, Supple Cardiovascular : RRR, no JVP, trace lower extremity edema Respiratory : good bilateral air entry, no crackles, wheezes or rhonchi Gastrointestinal: soft, lax, Normal bowel sounds, Non tender Skin : Warm, Dry Vascular: chest wall erythema and warmth at site of prev permacath covered with dressing Neurological : Alert & oriented x3, No focal deficit Objective Data Active Medications Acetaminophen (Acetaminophen 325 Mg Tablet) 650 mg PO Q6H PRN PRN Reason: Pain, Mild (Pain Scale 1-3) Last Admin: 03/13/23 15:02 Dose: 650 mg Documented By: JULIAN Atorvastatin Calcium (Atorvastatin Calcium 40 Mg Tablet) 40 mg PO DAILY [facility] Last Admin: 03/15/23 08:14 Dose: 40 mg Documented By: CHELSEA Calcium Carbonate (Calcium Carbonate 750 Mg Tab.Chew) 750 mg PO TID [facility] Last Admin: 03/15/23 08:15 Dose: 750 mg Documented By: CHELSEA Docusate Sodium (Docusate Sodium 100 Mg Capsule) 100 mg PO DAILY PRN PRN Reason: Constipation Last Admin: 03/14/23 17:24 Dose: 100 mg Documented By: TIFFANY Ergocalciferol (Ergocalciferol (Vitamin D2) 1,250 Mcg Capsule) 1,250 mcg PO FR@0900 [facility] Cefepime HCl 0.5 gm/ Sodium (Chloride) 50 mls @ 100 mls/hr IV Q24H [facility] Last Infusion: 03/14/23 17:02 Dose: 0 mls/hr Documented By: TIFFANY Vancomycin HCl 500 mg/ Sodium (Chloride) 110 mls @ 110 mls/hr IV ONCE ONE Stop: 03/13/23 20:59 Levothyroxine Sodium (Levothyroxine Sodium 75 Mcg Tablet) 75 mcg PO DAILY@0600 [facility] Last Admin: 03/15/23 05:56 Dose: 75 mcg Documented By: BEATRICE Ondansetron HCl (Ondansetron Hcl 4 Mg/2 Ml Vial) 4 mg IVPUSH Q8H PRN PRN Reason: Nausea and Vomiting Last Admin: 03/13/23 04:17 Dose: 4 mg Documented By: FITO Pantoprazole Sodium (Pantoprazole Sodium 40 Mg/10 Ml Vial) 40 mg IVPUSH BID@0630,1630 [facility] Last Admin: 03/15/23 05:56 Dose: 40 mg Documented By: BEATRICE Pharmacy Consult (Consult Rx Vancomycin Dosing) 1 each MISCELLANE DAILY PRN PRN Reason: Consult order Sertraline HCl (Sertraline Hcl 25 Mg Tablet) 25 mg PO DAILY [facility] Last Admin: 03/15/23 08:14 Dose: 25 mg Documented By: CHELSEA Sevelamer Carbonate (Sevelamer Carbonate Tablet 800 Mg Tablet) 1,600 mg PO TID [facility] Last Admin: 03/15/23 08:15 Dose: 1,600 mg Documented By: CHELSEA Sodium Chloride (0.9 % Sodium Chloride Flush 3 Ml Syringe) 3 ml IVFLUSH QSHIFT [facility] Last Admin: 03/15/23 08:17 Dose: 3 ml Documented By: CHELSEA Sucralfate (Sucralfate 1 Gm Tablet) 1 gm PO QIDACHS [facility] Last Admin: 03/15/23 11:47 Dose: 1 gm Documented By: CHELSEA Torsemide (Torsemide 20 Mg Tablet) 40 mg PO BID@0900,1400 [facility]; Protocol Last Admin: 03/15/23 08:14 Dose: 40 mg Documented By: CHELSEA Labs 03/15/23 05:14 03/15/23 05:14 Labs: Laboratory Results - last 24 hr 03/15/23 03/15/23 03/15/23 05:14 05:14 08:26 MCV 91.8 MCH 30.6 MCHC 33.3 RDW 16.6 H Plt Count 210 MPV 10.4 Absolute Nucleated RBC 0.000 Nucleated RBC % (auto) 0.0 PT 11.9 INR 1.0 APTT 25.3 L Estim Creat Clear Calc 11.2 Estimated GFR 7 Microbiology Microbiology Results: Microbiology 03/13/23 17:32 Catheter Tip Culture - Preliminary Catheter Tip - Other Staphylococcus aureus 03/13/23 05:53 Blood Culture - Preliminary Blood - Venous Staphylococcus aureus 03/13/23 05:53 Blood Culture - Preliminary Blood - Venous Staphylococcus aureus 03/12/23 14:41 Blood Culture - Preliminary Blood - Venous Staphylococcus aureus 03/12/23 14:12 Blood Culture - Preliminary Blood - Venous Staphylococcus aureus 03/14/23 05:31 Blood Culture - Preliminary Blood - Venous Prelim: GPC Gram Stain only 03/14/23 05:31 Blood Culture - Preliminary Blood - Venous Prelim: GPC Gram Stain only Assessment and Plan (1) Acute on chronic blood loss anemia: Status: Acute (2) GI bleed: Status: Acute (3) Intravenous line infection: Status: Acute (4) Staphylococcus aureus bacteremia: Status: Acute (5) Sepsis: Status: Acute (6) ESRD on dialysis: Status: Acute Plan Pt is a 67-year-old male with a PMH significant for?ESRD on HD M/W/ d/t nephrotic syndrome, HFpEF, 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 Patient states that he has been experiencing fever, chills, nausea, headache, and stomach ache after waking up today. GPC bacteremia 2/2 sepsis from PermCath site infection Patient with history of MSSA bacteremia, Cx growing GPC now Line tip cx pending , blood grew staph repeat cultures 03/15 as prev ones positive Permacath removed, to place new Temp one tomorrow IV antibiotics: Cefepime 500 mg QD and vancomycin, started 03/12/2023 ID consult ESRD on HD // Permacath was removed, to place Temp one tomorrow Nephrology following Hyperkalemia resolved Acute on chronic anemia 2/2 acute blood loss Hb improved to 9.4 after 2 units transfusion, no more bloody emesis Pantoprazole IV , Carafate Hold heparin GI following HTN BP a little soft, will hold losartan for now HFpEF Does not appear to be in acute exacerbation Continue home torsemide CAD/HLD Continue statin Hypothyroidism Continue levothyroxine Mood disorder Continue home meds Full Code DVT Prophylaxis: SCDs Pt will require a hospitalization overnight for treatment of?PermCath line infection with IV antibiotics, GI bleed, and line replacement with specialist consultation. Time Spent With Patient Time: Total time managing care of this patient today ____ minutes. Quality Stroke Does the patient have a stroke diagnosis?: No VTE Prior VTE?: No VTE Risk Level:: Medical - moderate - high VTE Device Contraindication: Treatment Not Indicated VTE Drug Contraindication: N/A - Med Ordered
--- NOTE | 2023-03-15 13:51 | MHC.CM.PN ---
EMR REVIEWED AND PER MD ROUNDS PT IS NOT MEDICALLY CLEARED FOR DC (AWAITING CULTURES, LINE INFECTION, BACTEREMIA) CM WILL CONTINUE TO FOLLOW FOR ANY CHANGE IN DC PLAN/NEEDS.
[2023-03-15 16:00] VITALS: BP 122/62; PULSE 82; RESP 16; TEMP 36.3; O2SAT 96
[2023-03-15] MEDS: cefEPime HCl 0.5 GM in 0.9 % Sodium Chloride 50 ML IV (18:29)
[2023-03-15 19:56] VITALS: BP 135/63; PULSE 75; RESP 18; TEMP 36.6; O2SAT 96
[2023-03-16 04:00] VITALS: BP 130/62; PULSE 74; RESP 18; TEMP 36.4; O2SAT 97
[2023-03-16 05:28] LABS: Hematocrit 27.5 % (42.0-52.0); Hemoglobin 9.1 g/dl (14.0-18.0); Mean Corpuscular HGB Conc 33.1 g/dl (31.0-36.0); Mean Corpuscular Hemoglobin 29.8 pg (27.0-33.0); Mean Corpuscular Volume 90.2 fL (80.0-98.0); Mean Platelet Volume 10.1 fL (9.4-12.4); Platelet Count 235 X10*3/uL (160-400); Red Blood Count 3.05 X10*6/uL (4.60-5.80); Red Cell Distribution Width 16.1 % (11.0-16.0)
[2023-03-16 05:47] LABS: Creatinine Clr Calc Pharmacy 9.4; Estimated Glomerular Filt Rate 5
[2023-03-16] MEDS: Pantoprazole Sodium 40 MG/10 ML VIAL IVPUSH (06:36)
[2023-03-16] MEDS: Levothyroxine Sodium 75 MCG TABLET PO (06:36)
[2023-03-16] MEDS: Sucralfate 1 GM TABLET PO ×4 (07:30→19:52)
[2023-03-16 07:35] VITALS: BP 127/61; PULSE 73; RESP 16; TEMP 36.7; O2SAT 95
[2023-03-16] MEDS: Calcium Carbonate 750 MG TAB.CHEW PO ×2 (08:39→19:52)
[2023-03-16] MEDS: 0.9 % Sodium Chloride Flush 3 ML SYRINGE IVFLUSH (08:39)
[2023-03-16] MEDS: Atorvastatin Calcium 40 MG TABLET PO (08:39)
[2023-03-16] MEDS: Sevelamer Carbonate Tablet 800 MG TABLET 1600 MG PO ×2 (08:39→19:52)
[2023-03-16] MEDS: Sertraline HCL 25 MG TABLET PO (08:39)
[2023-03-16] MEDS: Torsemide 20 MG TABLET 40 MG PO (08:39)
--- NOTE | 2023-03-16 10:16 | PM.PNNEP ---
Subjective Subjective Date of Service: 03/17/23 Interval history: events noted. Blood cultures negative thus far Physical Exam Vital Signs: Vital Signs: Last Vital Signs Temp 98.1 F 03/16/23 07:35 Pulse 73 03/16/23 07:35 Resp 16 03/16/23 07:35 BP 127/61 03/16/23 07:35 Pulse Ox 95 03/16/23 07:35 O2 Del Method Room Air 03/16/23 07:35 BMI result Body Mass Index 32.2 Const: Other: Constitutional : Awake, interactive, not in distress Neck : Normal inspection, Supple Cardiovascular : RRR, no JVP, trace lower extremity edema Respiratory : good bilateral air entry, no crackles, wheezes or rhonchi Gastrointestinal: soft, lax, Normal bowel sounds, Non tender Skin : Warm, Dry Vascular: chest wall erythema and warmth at site of prev permacath covered with dressing Neurological : Alert & oriented x3, No focal deficit Objective Data Labs 03/16/23 05:08 03/16/23 05:08 Labs: Laboratory Results - last 24 hr 03/16/23 03/16/23 05:08 05:08 WBC 8.0 RBC 3.05 L Hgb 9.1 L Hct 27.5 L MCV 90.2 MCH 29.8 MCHC 33.1 RDW 16.1 H Plt Count 235 MPV 10.1 Absolute Nucleated RBC 0.000 Nucleated RBC % (auto) 0.0 Creatinine 9.59 H* Estim Creat Clear Calc 9.4 Estimated GFR 5 Microbiology Microbiology Results: Microbiology 03/15/23 06:06 Blood - Venous Blood Culture - Preliminary No growth after 24 hours. 03/15/23 06:06 Blood - Venous Blood Culture - Preliminary No growth after 24 hours. 03/13/23 17:32 Catheter Tip - Other Catheter Tip Culture - Preliminary Staphylococcus aureus 03/13/23 05:53 Blood - Venous Blood Culture - Preliminary Staphylococcus aureus 03/13/23 05:53 Blood - Venous Blood Culture - Preliminary Staphylococcus aureus 03/12/23 14:41 Blood - Venous Blood Culture - Preliminary Staphylococcus aureus 03/12/23 14:12 Blood - Venous Blood Culture - Preliminary Staphylococcus aureus 03/14/23 05:31 Blood - Venous Blood Culture - Preliminary Prelim: GPC Gram Stain only 03/14/23 05:31 Blood - Venous Blood Culture - Preliminary Prelim: GPC Gram Stain only 03/12/23 Unknown Urine clean catch - Urine umaña top Urine Culture - Final Procedures Date of Service Date of Service: 03/17/23 Assessment & Plan Assessment and plan (1) ESRD on dialysis: Status: Acute Plan 1. ESRD. continue dialysis. 2. Hyperkalemia We will use low-potassium bath during dialysis to correct hyperkalemia Keep on low-potassium diet Recheck potassium 3. Bacteremia. Agree with antibiotic coverage. 4. Anemia. Resume Epogen 88088 units once a week 5. No need to check creatinine every day Check potassium P Time Spent With Patient Time: Total time managing care of this patient today ____ minutes. Progress Note: Quality Stroke Does the patient have a stroke diagnosis?: No
[2023-03-16] MEDS: Lidocaine HCl 1 % MPF 5 ML VIAL 15 ML SUBCUT (11:31)
[2023-03-16] MEDS: Heparin Sodium,Porcine 1,000 UNIT/ML VIAL 2000 UNIT IV (11:33)
--- NOTE | 2023-03-16 12:12 | P.PNIM_ITS ---
Subjective Subjective Date of Service: 03/16/23 Interval History: Seen and evaluated No more hematemesis last 48hrs Hb stable New cultures pending Plan for Temp dialysis cath today Review of Systems Review of Systems: Yes all other systems are reviewed and are negative Physical Exam Vital Signs: Vital Signs: Last Vital Signs Temp 98.1 F 03/16/23 07:35 Pulse 73 03/16/23 07:35 Resp 16 03/16/23 07:35 BP 127/61 03/16/23 07:35 Pulse Ox 95 03/16/23 07:35 O2 Del Method Room Air 03/16/23 07:35 BMI result Body Mass Index 32.2 Const: Other: Constitutional : Awake, interactive, not in distress Neck : Normal inspection, Supple Cardiovascular : RRR, no JVP, trace lower extremity edema Respiratory : good bilateral air entry, no crackles, wheezes or rhonchi Gastrointestinal: soft, lax, Normal bowel sounds, Non tender Skin : Warm, Dry Vascular: chest wall less erythema and no significant warmth at site of prev permacath Neurological : Alert & oriented x3, No focal deficit Objective Data Active Medications Acetaminophen (Acetaminophen 325 Mg Tablet) 650 mg PO Q6H PRN PRN Reason: Pain, Mild (Pain Scale 1-3) Last Admin: 03/13/23 15:02 Dose: 650 mg Documented By: JULIAN Atorvastatin Calcium (Atorvastatin Calcium 40 Mg Tablet) 40 mg PO DAILY [facility] Last Admin: 03/16/23 08:39 Dose: 40 mg Documented By: CHELSEA Calcium Carbonate (Calcium Carbonate 750 Mg Tab.Chew) 750 mg PO TID [facility] Last Admin: 03/16/23 08:39 Dose: 750 mg Documented By: CHELSEA Docusate Sodium (Docusate Sodium 100 Mg Capsule) 100 mg PO DAILY PRN PRN Reason: Constipation Last Admin: 03/14/23 17:24 Dose: 100 mg Documented By: TIFFANY Ergocalciferol (Ergocalciferol (Vitamin D2) 1,250 Mcg Capsule) 1,250 mcg PO FR@0900 [facility] Cefepime HCl 0.5 gm/ Sodium (Chloride) 50 mls @ 100 mls/hr IV Q24H [facility] Last Infusion: 03/15/23 19:51 Dose: 0 mls/hr Documented By: [email or web address] Vancomycin HCl 500 mg/ Sodium (Chloride) 110 mls @ 110 mls/hr IV ONCE ONE Stop: 03/13/23 20:59 Levothyroxine Sodium (Levothyroxine Sodium 75 Mcg Tablet) 75 mcg PO DAILY@0600 [facility] Last Admin: 03/16/23 06:36 Dose: 75 mcg Documented By: BEATRICE Omeprazole (Omeprazole 40 Mg Capsule.Dr) 40 mg PO BID@0630,1630 [facility] Ondansetron HCl (Ondansetron Hcl 4 Mg/2 Ml Vial) 4 mg IVPUSH Q8H PRN PRN Reason: Nausea and Vomiting Last Admin: 03/13/23 04:17 Dose: 4 mg Documented By: FITO Pharmacy Consult (Consult Rx Vancomycin Dosing) 1 each MISCELLANE DAILY PRN PRN Reason: Consult order Sertraline HCl (Sertraline Hcl 25 Mg Tablet) 25 mg PO DAILY [facility] Last Admin: 03/16/23 08:39 Dose: 25 mg Documented By: CHELSEA Sevelamer Carbonate (Sevelamer Carbonate Tablet 800 Mg Tablet) 1,600 mg PO TID [facility] Last Admin: 03/16/23 08:39 Dose: 1,600 mg Documented By: CHELSEA Sodium Chloride (0.9 % Sodium Chloride Flush 3 Ml Syringe) [facility] Last Admin: 03/16/23 08:39 Dose: 3 ml Documented By: CHELSEA Sucralfate (Sucralfate 1 Gm Tablet) 1 gm PO QIDACHS [facility] Last Admin: 03/16/23 07:30 Dose: 1 gm Documented By: CHELSEA Torsemide (Torsemide 20 Mg Tablet) 40 mg PO BID@0900,1400 [facility]; Protocol Last Admin: 03/16/23 08:39 Dose: 40 mg Documented By: CHELSEA Labs 03/16/23 05:08 03/16/23 05:08 Labs: Laboratory Results - last 24 hr 03/16/23 03/16/23 05:08 05:08 MCV 90.2 MCH 29.8 MCHC 33.1 RDW 16.1 H Plt Count 235 MPV 10.1 Absolute Nucleated RBC 0.000 Nucleated RBC % (auto) 0.0 Estim Creat Clear Calc 9.4 Estimated GFR 5 Microbiology Microbiology Results: Microbiology 03/14/23 05:31 Blood Culture - Preliminary Blood - Venous Staphylococcus species 03/14/23 05:31 Blood Culture - Preliminary Blood - Venous Staphylococcus species 03/13/23 17:32 Catheter Tip Culture - Preliminary Catheter Tip - Other Staphylococcus aureus 03/13/23 05:53 Blood Culture - Preliminary Blood - Venous Staphylococcus aureus 03/13/23 05:53 Blood Culture - Preliminary Blood - Venous Staphylococcus aureus 03/12/23 14:41 Blood Culture - Preliminary Blood - Venous Staphylococcus aureus 03/12/23 14:12 Blood Culture - Preliminary Blood - Venous Staphylococcus aureus 03/15/23 06:06 Blood Culture - Preliminary Blood - Venous No growth after 24 hours. 03/15/23 06:06 Blood Culture - Preliminary Blood - Venous No growth after 24 hours. 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 Patient states that he has been experiencing fever, chills, nausea, headache, and stomach ache after waking up today. GPC bacteremia 2/2 sepsis from PermCath site infection Patient with history of MSSA bacteremia, Cx growing Staph A, pending final sensitivity Line tip cx growing staph repeat cultures 03/15 pending Permacath removed, to place new Temp one today IV antibiotics: Cefepime 500 mg QD and vancomycin, started 03/12/2023 pending ID consult ESRD on HD M/W/, last session on Wednesday Permacath was removed, to place Temp one today and go for HD Nephrology following Hyperkalemia resolved Acute on chronic anemia 2/2 acute blood loss Hb improved to 9.4 after 2 units transfusion, no more bloody emesis DC Pantoprazole IV , change to PO To finish 1 week of Carafate Hold heparin GI following HTN BP a little soft, will hold losartan for now HFpEF Does not appear to be in acute exacerbation Continue home torsemide CAD/HLD Continue statin Hypothyroidism Continue levothyroxine Mood disorder Continue home meds Full Code DVT Prophylaxis: SCDs Pt will require a hospitalization overnight for treatment of?PermCath line infe ction with IV antibiotics, GI bleed, and line replacement with specialist consultation. Time Spent With Patient Time: Total time managing care of this patient today ____ minutes. Quality Stroke Does the patient have a stroke diagnosis?: No VTE Prior VTE?: No VTE Risk Level:: Medical - moderate - high VTE Device Contraindication: Treatment Not Indicated VTE Drug Contraindication: N/A - Med Ordered
[2023-03-16] MEDS: Omeprazole 40 MG CAPSULE.DR PO (17:33)
[2023-03-16] MEDS: cefEPime HCl 0.5 GM in 0.9 % Sodium Chloride 50 ML IV (17:36)
[2023-03-16] MEDS: Acetaminophen 325 MG TABLET 650 MG PO (17:38)
[2023-03-16 18:32] VITALS: BP 138/63; PULSE 74; RESP 18; TEMP 36.2; O2SAT 98
[2023-03-16 18:41] LABS: Vancomycin Random 13.7 mcg/mL (15-20)
[2023-03-16 19:47] VITALS: BP 118/57; PULSE 78; RESP 16; TEMP 36.4; O2SAT 94
[2023-03-16] MEDS: vancomycin HCL 500 MG in 0.9 % Sodium Chloride 100 ML 110 MG IV (19:51)
[2023-03-17 03:12] VITALS: BP 124/60; PULSE 70; RESP 18; TEMP 36.1; O2SAT 97
[2023-03-17] MEDS: Omeprazole 40 MG CAPSULE.DR PO ×2 (05:50→15:56)
[2023-03-17] MEDS: Levothyroxine Sodium 75 MCG TABLET PO (05:50)
[2023-03-17 07:17] VITALS: BP 117/59; PULSE 68; RESP 16; TEMP 36.8; O2SAT 97
[2023-03-17 07:29] LABS: Creatinine Clr Calc Pharmacy 13.8; Estimated Glomerular Filt Rate 8
--- NOTE | 2023-03-17 07:39 | HE.PHANOTE ---
VANCOMYCIN DOSE ADJUSTMENT TROUGH CAME BACK AT 13.7 ON 03/16 500MG ONCE GIVEN. NO DIALYSIS ON 03/17 WILL REASSESS ON 03/18 FOR ADDITIONAL DOSES
[2023-03-17] MEDS: Torsemide 20 MG TABLET 40 MG PO ×2 (08:31→14:20)
[2023-03-17] MEDS: Sevelamer Carbonate Tablet 800 MG TABLET 1600 MG PO ×3 (08:31→19:23)
[2023-03-17] MEDS: Calcium Carbonate 750 MG TAB.CHEW PO ×3 (08:32→19:22)
[2023-03-17] MEDS: Sucralfate 1 GM TABLET PO ×4 (08:32→19:22)
[2023-03-17] MEDS: Atorvastatin Calcium 40 MG TABLET PO (08:32)
[2023-03-17] MEDS: Sertraline HCL 25 MG TABLET PO (08:32)
[2023-03-17] MEDS: 0.9 % Sodium Chloride Flush 3 ML SYRINGE IVFLUSH ×3 (08:36→19:24)
--- NOTE | 2023-03-17 10:19 | P.PNIM_ITS ---
Subjective Subjective Date of Service: 03/17/23 Interval History: no complaints Physical Exam Vital Signs: Vital Signs: Last Vital Signs Temp 98.2 F 03/17/23 07:17 Pulse 68 03/17/23 07:17 Resp 16 03/17/23 07:17 BP 117/59 L 03/17/23 07:17 Pulse Ox 97 03/17/23 07:17 O2 Del Method Room Air 03/17/23 07:17 BMI result Body Mass Index 32.2 Const: Other: Constitutional : Awake, interactive, not in distress Neck : Normal inspection, Supple Cardiovascular : RRR, no JVP, trace lower extremity edema Respiratory : good bilateral air entry, no crackles, wheezes or rhonchi Gastrointestinal: soft, lax, Normal bowel sounds, Non tender Skin : Warm, Dry Vascular: chest wall less erythema and no significant warmth at site of prev p ermacath Neurological : Alert & oriented x3, No focal deficit Objective Data Active Medications Acetaminophen (Acetaminophen 325 Mg Tablet) 650 mg PO Q6H PRN PRN Reason: Pain, Mild (Pain Scale 1-3) Last Admin: 03/16/23 17:38 Dose: 650 mg Documented By: AMIRAH Atorvastatin Calcium (Atorvastatin Calcium 40 Mg Tablet) 40 mg PO DAILY [facility] Last Admin: 03/17/23 08:32 Dose: 40 mg Documented By: GRAZIC Calcium Carbonate (Calcium Carbonate 750 Mg Tab.Chew) 750 mg PO TID [facility] Last Admin: 03/17/23 08:32 Dose: 750 mg Documented By: EDELMIRA Docusate Sodium (Docusate Sodium 100 Mg Capsule) 100 mg PO DAILY PRN PRN Reason: Constipation Last Admin: 03/14/23 17:24 Dose: 100 mg Documented By: TIFFANY Ergocalciferol (Ergocalciferol (Vitamin D2) 1,250 Mcg Capsule) 1,250 mcg PO FR@0900 [facility] Vancomycin HCl 500 mg/ Sodium (Chloride) 110 mls @ 110 mls/hr IV ONCE ONE Stop: 03/13/23 20:59 Levothyroxine Sodium (Levothyroxine Sodium 75 Mcg Tablet) 75 mcg PO DAILY@0600 [facility] Last Admin: 03/17/23 05:50 Dose: 75 mcg Documented By: JEFF Omeprazole (Omeprazole 40 Mg Capsule.) 40 mg PO BID@0630,1630 [facility] Last Admin: 03/17/23 05:50 Dose: 40 mg Documented By: JEFF Ondansetron HCl (Ondansetron Hcl 4 Mg/2 Ml Vial) 4 mg IVPUSH Q8H PRN PRN Reason: Nausea and Vomiting Last Admin: 03/13/23 04:17 Dose: 4 mg Documented By: FITO Pharmacy Consult (Consult Rx Vancomycin Dosing) 1 each MISCELLANE DAILY PRN PRN Reason: Consult order Sertraline HCl (Sertraline Hcl 25 Mg Tablet) 25 mg PO DAILY [facility] Last Admin: 03/17/23 08:32 Dose: 25 mg Documented By: EDELMIRA Sevelamer Carbonate (Sevelamer Carbonate Tablet 800 Mg Tablet) 1,600 mg PO TID [facility] Last Admin: 03/17/23 08:31 Dose: 1,600 mg Documented By: EDELMIRA Sodium Chloride (0.9 % Sodium Chloride Flush 3 Ml Syringe) 3 ml IVFLUSH QSHIFT [facility] Last Admin: 03/17/23 08:36 Dose: 3 ml Documented By: EDELMIRA Sucralfate (Sucralfate 1 Gm Tablet) 1 gm PO QIDACHS [facility] Last Admin: 03/17/23 08:32 Dose: 1 gm Documented By: EDELMIRA Torsemide (Torsemide 20 Mg Tablet) 40 mg PO BID@0900,1400 [facility]; Protocol Last Admin: 03/17/23 08:31 Dose: 40 mg Documented By: EDELMIRA Labs 03/16/23 05:08 03/17/23 05:48 Labs: Laboratory Results - last 24 hr 03/16/23 03/17/23 17:51 05:48 Estim Creat Clear Calc 13.8 Estimated GFR 8 Random Vancomycin 13.7 L Microbiology Microbiology Results: Microbiology 03/15/23 06:06 Blood Culture - Preliminary Blood - Venous No growth after 48 hours. 03/15/23 06:06 Blood Culture - Preliminary Blood - Venous No growth after 48 hours. 03/14/23 05:31 Blood Culture - Preliminary Blood - Venous Staphylococcus species 03/14/23 05:31 Blood Culture - Preliminary Blood - Venous Staphylococcus species 03/13/23 17:32 Catheter Tip Culture - Preliminary Catheter Tip - Other Staphylococcus aureus 03/13/23 05:53 Blood Culture - Preliminary Blood - Venous Staphylococcus aureus 03/13/23 05:53 Blood Culture - Preliminary Blood - Venous Staphylococcus aureus 03/12/23 14:41 Blood Culture - Preliminary Blood - Venous Staphylococcus aureus 03/12/23 14:12 Blood Culture - Preliminary Blood - Venous Staphylococcus aureus Assessment and Plan (1) Acute on chronic blood loss anemia: Status: Acute (2) GI bleed: Status: Acute (3) Intravenous line infection: Status: Acute (4) Acute febrile illness: Status: Acute (5) Staphylococcus aureus bacteremia: Status: Acute Plan 67-year-old male with a PMH significant for?ESRD on HD M/W/F d/t nephrotic sy ndrome, HFpEF, 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 found to have recurrent MSSA bacteremia recurrent MSSA bacteremia due to permacath site cellulitis and cath infection due to patient scratching at site repeat cultures 03/15 negative 48hrs on vanc due to pcn allergy Permacath removed, s/p Temporary cath 03/16, plan for new permacath 03/18/23 pending ID consult ESRD on HD M/W/F Hyperkalemia resolved Acute on chronic anemia 2/2 acute blood loss Hb improved to 9.4 after 2 units transfusion, no more bloody emesis DCed Pantoprazole IV , change to PO To finish 1 week of Carafate Hold heparin GI following HTN held losartan for relative low bp HFpEF Continue home torsemide CAD/HLD Continue statin Hypothyroidism Continue levothyroxine Mood disorder Continue zoloft Full Code DVT Prophylaxis: SCDs - pending permacath, gi bleed reason for continued hospitalization:permacath prior to dc Time Spent With Patient Time: Total time managing care of this patient today ____ minutes. Quality Stroke Does the patient have a stroke diagnosis?: No VTE Prior VTE?: No VTE Risk Level:: Medical - moderate - high VTE Device Contraindication: Treatment Not Indicated VTE Drug Contraindication: N/A - Med Ordered
--- NOTE | 2023-03-17 10:31 | PM.PNNEP ---
Subjective Subjective Date of Service: 03/18/23 Interval history: s/p Temp catheter and HD 03/16 Physical Exam Vital Signs: Vital Signs: Last Vital Signs Temp 98.2 F 03/17/23 07:17 Pulse 68 03/17/23 07:17 Resp 16 03/17/23 07:17 BP 117/59 L 03/17/23 07:17 Pulse Ox 97 03/17/23 07:17 O2 Del Method Room Air 03/17/23 07:17 BMI result Body Mass Index 32.2 Const: Other: Constitutional : Awake, interactive, not in distress Neck : Normal inspection, Supple Cardiovascular : RRR, no JVP, trace lower extremity edema Respiratory : good bilateral air entry, no crackles, wheezes or rhonchi Gastrointestinal: soft, lax, Normal bowel sounds, Non tender Skin : Warm, Dry Vascular: chest wall erythema and warmth at site of prev permacath covered with dressing Neurological : Alert & oriented x3, No focal deficit Objective Data Labs 03/16/23 05:08 03/17/23 05:48 Labs: Laboratory Results - last 24 hr 03/16/23 03/17/23 17:51 05:48 Creatinine 6.57 H* Estim Creat Clear Calc 13.8 Estimated GFR 8 Random Vancomycin 13.7 L Microbiology Microbiology Results: Microbiology 03/15/23 06:06 Blood - Venous Blood Culture - Preliminary No growth after 48 hours. 03/15/23 06:06 Blood - Venous Blood Culture - Preliminary No growth after 48 hours. 03/14/23 05:31 Blood - Venous Blood Culture - Preliminary Staphylococcus species 03/14/23 05:31 Blood - Venous Blood Culture - Preliminary Staphylococcus species 03/13/23 17:32 Catheter Tip - Other Catheter Tip Culture - Preliminary Staphylococcus aureus 03/13/23 05:53 Blood - Venous Blood Culture - Preliminary Staphylococcus aureus 03/13/23 05:53 Blood - Venous Blood Culture - Preliminary Staphylococcus aureus 03/12/23 14:41 Blood - Venous Blood Culture - Preliminary Staphylococcus aureus 03/12/23 14:12 Blood - Venous Blood Culture - Preliminary Staphylococcus aureus 03/12/23 Unknown Urine clean catch - Urine umaña top Urine Culture - Final Procedures Date of Service Date of Service: 03/18/23 Assessment & Plan Assessment and plan (1) ESRD on dialysis: Status: Acute Plan 1. ESRD. continue dialysis. 2. Hyperkalemia We will use low-potassium bath during dialysis to correct hyperkalemia Keep on low-potassium diet Recheck potassium 3. Bacteremia. Agree with antibiotic coverage. 4. Anemia. Resume Epogen 72525 units once a week 5. No need to check creatinine every day 6. Needs new Permcath Can DC post permcath Time Spent With Patient Time: Total time managing care of this patient today ____ minutes. Progress Note: Quality Stroke Does the patient have a stroke diagnosis?: No
[2023-03-17 15:12] VITALS: BP 127/60; PULSE 75; RESP 18; TEMP 37.2; O2SAT 96
--- NOTE | 2023-03-17 15:15 | MHC.CM.PN ---
Per MD rounds Permacath may be inserted tomorrow. DP Home with resumption of STAFFING RN and HD. HD will resume [facility]. Patient will need assist with transport home.
--- NOTE | 2023-03-17 16:18 | P.CNID_ITS ---
History of Present Illness Data of Consult Service Date: 03/16/23 Requesting physician: Coleman Mclean Primary Care Provider: Segundo Tapia MD HPI Reason for consult: bacteremia He presents with 3-4 days chills and temperature. Dr Vincent is to do fistula when stable. He has reddened area right chest where line is. He is getting IV Vancomycin at dialysis. He has MSSA and has PCN allergy but tolerated Cefepime. 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 Family history: reviewed and not pertinent Surgical History Surgical History H/O aortic valve replacement Social History Social History Household Members: None Housing: Apartment Do you presently have visiting nurse or other home services: No Unable to assess alcohol history related to: Unknown Alcohol intake: never Patient Tobacco Use Status: Former Tobacco user Quit Date: 5 years ago Tobacco use type: Cigarette Years Smoked: 30 e-Cigarette/Vaping Use: Never Used Second Hand Smoke Exposure: No Advance Directives Date on File: 05/01/20 service: No Current occupational status: unemployed and disabled Meds Allergies Allergy/AdvReac Type Severity Reaction Status Date / Time Penicillins Allergy Unknown UNKWN Verified 07/24/22 09:42 Active Medications: Current Medications Acetaminophen (Acetaminophen 325 Mg Tablet) 650 mg PO Q6H PRN PRN Reason: Pain, Mild (Pain Scale 1-3) Last Admin: 08/29/23 17:38 Dose: 650 mg Atorvastatin Calcium (Atorvastatin Calcium 40 Mg Tablet) 40 mg PO DAILY [facility] Last Admin: 03/17/23 08:32 Dose: 40 mg Calcium Carbonate (Calcium Carbonate 750 Mg Tab.Chew) 750 mg PO TID [facility] Last Admin: 03/17/23 14:20 Dose: 750 mg Docusate Sodium (Docusate Sodium 100 Mg Capsule) 100 mg PO DAILY PRN PRN Reason: Constipation Last Admin: 03/14/23 17:24 Dose: 100 mg Ergocalciferol (Ergocalciferol (Vitamin D2) 1,250 Mcg Capsule) 1,250 mcg PO FR@0900 [facility] Vancomycin HCl 500 mg/ Sodium (Chloride) 110 mls @ 110 mls/hr IV ONCE ONE Stop: 03/13/23 20:59 Cefazolin Sodium/Dextrose (Ancef) 2 gm in 50 mls @ 100 mls/hr IV MoWeFr@1800 [facility] Levothyroxine Sodium (Levothyroxine Sodium 75 Mcg Tablet) 75 mcg PO DAILY@0600 [facility] Last Admin: 03/17/23 05:50 Dose: 75 mcg Omeprazole (Omeprazole 40 Mg Capsule.Dr) 40 mg PO BID@0630,1630 [facility] Last Admin: 03/17/23 15:56 Dose: 40 mg Ondansetron HCl (Ondansetron Hcl 4 Mg/2 Ml Vial) 4 mg IVPUSH Q8H PRN PRN Reason: Nausea and Vomiting Last Admin: 03/13/23 04:17 Dose: 4 mg Sertraline HCl (Sertraline Hcl 25 Mg Tablet) 25 mg PO DAILY [facility] Last Admin: 03/17/23 08:32 Dose: 25 mg Sevelamer Carbonate (Sevelamer Carbonate Tablet 800 Mg Tablet) 1,600 mg PO TID [facility] Last Admin: 03/17/23 14:20 Dose: 1,600 mg Sodium Chloride (0.9 % Sodium Chloride Flush 3 Ml Syringe) 3 ml IVFLUSH QSHIFT [facility] Last Admin: 03/17/23 15:56 Dose: 3 ml Sucralfate (Sucralfate 1 Gm Tablet) 1 gm PO QIDACHS [facility] Last Admin: 03/17/23 15:56 Dose: 1 gm Torsemide (Torsemide 20 Mg Tablet) 40 mg PO BID@0900,1400 [facility]; Protocol Last Admin: 03/17/23 14:20 Dose: 40 mg Home Medications Medication Instructions Recorded Confirmed Last Taken Type levothyroxine 75 mcg tablet 75 mcg PO DAILY@0600 06/27/20 03/12/23 2 Days Ago History ~02/14/23 atorvastatin 40 mg tablet 40 mg PO DAILY 02/10/22 03/12/23 2 Days Ago History ~02/14/23 sertraline 25 mg tablet 1 tab PO DAILY 10/03/22 03/12/23 2 Days Ago History ~02/14/23 calcium carbonate 400 mg calcium 400 mg PO TID 02/16/23 03/12/23 2 Days Ago History (1,000 mg) chewable tablet (Ultra ~02/14/23 Strength Antacid) ergocalciferol (vitamin D2) 1,250 1,250 mcg PO FR@0900 02/16/23 03/12/23 2 Days Ago History mcg (50,000 unit) capsule ~02/14/23 losartan 50 mg tablet 50 mg PO DAILY 02/16/23 03/12/23 2 Days Ago History ~02/14/23 sevelamer carbonate 800 mg tablet 1,600 mg PO TID 02/16/23 03/12/23 2 Days Ago History ~02/14/23 torsemide 20 mg tablet 40 mg PO BID@0900,1400 02/16/23 03/12/23 2 Days Ago History ~02/14/23 Physical Exam Vital Signs: Vital Signs: Last Vital Signs Temp 98.9 F 03/17/23 15:12 Pulse 75 03/17/23 15:12 Resp 18 03/17/23 15:12 BP 127/60 03/17/23 15:12 Pulse Ox 96 03/17/23 15:12 O2 Del Method Room Air 03/17/23 15:12 BMI result Body Mass Index 32.2 Const: General: cooperative HEENT: Head: Yes normal to inspection Face and sinus: Yes normal facial exam Mouth: Normal oral and palatal mucosa present Teeth and gingiva: dentition normal Eyes: General: appearance normal, both eyes and all related structures Pupils: Equal, round and reactive pupils present Resp: Effort & Inspection: normal respiratory effort Cardio: Rate: regular rate Rhythm: regular rhythm GI: Palpation (GI): Soft to palpation and nontender : General: Yes no CVA tenderness Back/Spine/Pelvis: Back: no CVA tenderness Skin: Other: some reddened area over right chest wall Neuro: General: moves all extremities Cranial nerves: Yes Equal, round and reactive pupils present Extrem: General: Yes normal to inspection Psych: Appearance: grossly normal Results Labs 03/16/23 05:08 03/17/23 05:48 Labs: BMP 03/17/23 05:48 Creatinine 6.57 H* Microbiology Microbiology Results: Microbiology 03/14/23 05:31 Blood - Venous Blood Culture - Preliminary Staphylococcus aureus 03/14/23 05:31 Blood - Venous Blood Culture - Preliminary Staphylococcus aureus 03/13/23 05:53 Blood - Venous Blood Culture - Preliminary Staphylococcus aureus 03/13/23 05:53 Blood - Venous Blood Culture - Preliminary Staphylococcus aureus 03/12/23 14:41 Blood - Venous Blood Culture - Preliminary Staphylococcus aureus 03/13/23 17:32 Catheter Tip - Other Catheter Tip Culture - Final Staphylococcus aureus 03/12/23 14:12 Blood - Venous Blood Culture - Preliminary Staphylococcus aureus 03/15/23 06:06 Blood - Venous Blood Culture - Preliminary No growth after 48 hours. 03/15/23 06:06 Blood - Venous Blood Culture - Preliminary No growth after 48 hours. 03/12/23 Unknown Urine clean catch - Urine umaña top Urine Culture - Final Assessment and Plan (1) Staphylococcus aureus bacteremia: Status: Acute He has repeated sepsis. Probably surrounding skin and line infected. Also MSSA benefit from cephalosporin if able. (2) Line sepsis associated with dialysis catheter: Status: Acute Plan Kefzol 2 g or otherwise per pharmacy 28 days from first negative blood culture. Would make sure lines new,dialysis catheter per Renal. Time Spent With Patient Time: Total time managing care of this patient today ____ minutes.
[2023-03-17] MEDS: ceFAZolin Sodium/Dextrose,Iso 2 GM/50 ML PIGGYBACK IV (17:50)
[2023-03-17 19:13] VITALS: BP 119/56; PULSE 75; RESP 16; TEMP 36.9; O2SAT 95
[2023-03-18 03:12] VITALS: BP 129/63; PULSE 71; RESP 18; TEMP 36.7; O2SAT 93
[2023-03-18] MEDS: Omeprazole 40 MG CAPSULE.DR PO ×2 (05:16→16:20)
[2023-03-18] MEDS: Levothyroxine Sodium 75 MCG TABLET PO (05:16)
[2023-03-18 05:43] LABS: Hematocrit 28.8 % (42.0-52.0); Hemoglobin 9.9 g/dl (14.0-18.0); Mean Corpuscular HGB Conc 34.4 g/dl (31.0-36.0); Mean Corpuscular Volume 90.3 fL (80.0-98.0); Mean Platelet Volume 9.8 fL (9.4-12.4); Platelet Count 326 X10*3/uL (160-400); Red Blood Count 3.19 X10*6/uL (4.60-5.80); Red Cell Distribution Width 15.6 % (11.0-16.0); White Blood Count 9.7 X10*3/uL (4.8-10.8)
[2023-03-18 05:46] LABS: Prothrombin Time 11.9 SEC (11.1-13.3)
[2023-03-18 05:49] LABS: Partial Thromboplastin Time 27.6 SEC (26.0-36.4)
[2023-03-18 06:11] LABS: Anion Gap 16 (12-20); Blood Urea Nitrogen 35 mg/dL (9-16); Calcium 8.8 mg/dL (8.4-10.2); Carbon Dioxide 18 mmol/L (22-29); Chloride 102 mmol/L (96-108); Creatinine Clr Calc Pharmacy 10.9; Estimated Glomerular Filt Rate 7; Glucose Fasting 135 mg/dL (60-99); Potassium 3.5 mmol/L (3.3-5.1); Sodium 132 mmol/L (135-145)
--- NOTE | 2023-03-18 09:02 | HO.PM.IMPN ---
Subjective Subjective Date of Service: 03/18/23 Interval History: no complaints Physical Exam Vital Signs: Vital Signs: Last Vital Signs Temp 98.0 F 03/18/23 03:12 Pulse 71 03/18/23 03:12 Resp 18 03/18/23 03:12 BP 129/63 03/18/23 03:12 Pulse Ox 93 03/18/23 03:12 O2 Del Method Room Air 03/18/23 03:12 BMI result Body Mass Index 32.2 Const: General: cooperative HEENT: Head: Yes normal to inspection Face and sinus: Yes normal facial exam Mouth: Normal oral and palatal mucosa present Teeth and gingiva: dentition normal Eyes: General: appearance normal, both eyes and all related structures Pupils: Equal, round and reactive pupils present Resp: Effort & Inspection: normal respiratory effort Cardio: Rate: regular rate Rhythm: regular rhythm GI: Palpation (GI): Soft to palpation and nontender : General: Yes no CVA tenderness Back/Spine/Pelvis: Back: no CVA tenderness Skin: Other: some reddened area over right chest wall Neuro: General: moves all extremities Cranial nerves: Yes Equal, round and reactive pupils present Extrem: General: Yes normal to inspection Psych: Appearance: grossly normal Objective Data Active Medications Acetaminophen (Acetaminophen 325 Mg Tablet) 650 mg PO Q6H PRN PRN Reason: Pain, Mild (Pain Scale 1-3) Last Admin: 03/16/23 17:38 Dose: 650 mg Documented By: AMIRAH Atorvastatin Calcium (Atorvastatin Calcium 40 Mg Tablet) 40 mg PO DAILY [facility] Last Admin: 03/17/23 08:32 Dose: 40 mg Documented By: GRAZIC Calcium Carbonate (Calcium Carbonate 750 Mg Tab.Chew) 750 mg PO TID [facility] Last Admin: 03/17/23 19:22 Dose: 750 mg Documented By: FITO Docusate Sodium (Docusate Sodium 100 Mg Capsule) 100 mg PO DAILY PRN PRN Reason: Constipation Last Admin: 03/14/23 17:24 Dose: 100 mg Documented By: TIFFANY Ergocalciferol (Ergocalciferol (Vitamin D2) 1,250 Mcg Capsule) 1,250 mcg PO FR@0900 [facility] Cefazolin Sodium/Dextrose (Ancef) 2 gm in 50 mls @ 100 mls/hr IV MoWeFr@1800 [facility] Last Infusion: 03/17/23 18:22 Dose: 0 mls/hr Documented By: EDELMIRA Levothyroxine Sodium (Levothyroxine Sodium 75 Mcg Tablet) 75 mcg PO DAILY@0600 [facility] Last Admin: 03/18/23 05:16 Dose: 75 mcg Documented By: FITO Omeprazole (Omeprazole 40 Mg Capsule.) 40 mg PO BID@0630,1630 [facility] Last Admin: 03/18/23 05:16 Dose: 40 mg Documented By: FITO Ondansetron HCl (Ondansetron Hcl 4 Mg/2 Ml Vial) 4 mg IVPUSH Q8H PRN PRN Reason: Nausea and Vomiting Last Admin: 03/13/23 04:17 Dose: 4 mg Documented By: FITO Sertraline HCl (Sertraline Hcl 25 Mg Tablet) 25 mg PO DAILY [facility] Last Admin: 03/17/23 08:32 Dose: 25 mg Documented By: EDELMIRA Sevelamer Carbonate (Sevelamer Carbonate Tablet 800 Mg Tablet) 1,600 mg PO TID [facility] Last Admin: 03/17/23 19:23 Dose: 1,600 mg Documented By: FITO Sodium Chloride (0.9 % Sodium Chloride Flush 3 Ml Syringe) 3 ml IVFLUSH QSHIFT [facility] Last Admin: 03/18/23 08:42 Dose: Not Given Documented By: ANGELA Non-Admin Reason: Off unit: Dialysis Sucralfate (Sucralfate 1 Gm Tablet) 1 gm PO QIDACHS [facility] Last Admin: 03/18/23 08:42 Dose: Not Given Documented By: ANGELA Non-Admin Reason: Off Unit: Surgery Torsemide (Torsemide 20 Mg Tablet) 40 mg PO BID@0900,1400 [facility]; Protocol Last Admin: 03/18/23 08:43 Dose: Not Given Documented By: ANGELA Non-Cindy Reason: Off unit: Dialysis Labs 03/18/23 05:19 03/18/23 05:19 Labs: Laboratory Results - last 24 hr 03/18/23 03/18/23 03/18/23 05:19 05:19 05:19 MCV 90.3 MCH 31.0 MCHC 34.4 RDW 15.6 Plt Count 326 D MPV 9.8 Absolute Nucleated RBC 0.000 Nucleated RBC % (auto) 0.0 PT 11.9 INR 1.0 APTT 27.6 Anion Gap 16 Estim Creat Clear Calc 10.9 Estimated GFR 7 Fasting Glucose 135 H Calcium 8.8 Microbiology Microbiology Results: Microbiology 03/14/23 05:31 Blood Culture - Preliminary Blood - Venous Staphylococcus aureus 03/14/23 05:31 Blood Culture - Preliminary Blood - Venous Staphylococcus aureus 03/13/23 05:53 Blood Culture - Preliminary Blood - Venous Staphylococcus aureus 03/13/23 05:53 Blood Culture - Preliminary Blood - Venous Staphylococcus aureus 03/12/23 14:41 Blood Culture - Preliminary Blood - Venous Staphylococcus aureus 03/13/23 17:32 Catheter Tip Culture - Final Catheter Tip - Other Staphylococcus aureus 03/12/23 14:12 Blood Culture - Preliminary Blood - Venous Staphylococcus aureus 03/15/23 06:06 Blood Culture - Preliminary Blood - Venous No growth after 48 hours. 03/15/23 06:06 Blood Culture - Preliminary Blood - Venous No growth after 48 hours. 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 found to have recurrent MSSA bacteremia recurrent MSSA bacteremia due to permacath site cellulitis and cath infection due to patient scratching at site repeat cultures 03/15 negative 48hrs tolerating ancef Permacath removed, s/p Temporary cath 03/16, plan for new permacath 03/18/23 ESRD on HD M/W/F Hyperkalemia resolved Acute on chronic anemia 2/2 acute blood loss Hb improved to 9.4 after 2 units transfusion, no more bloody emesis DCed Pantoprazole IV , change to PO To finish 1 week of Carafate Hold heparin GI following HTN held losartan for relative low bp HFpEF Continue home torsemide CAD/HLD Continue statin Hypothyroidism Continue levothyroxine Mood disorder Continue zoloft Full Code DVT Prophylaxis: SCDs - pending permacath, gi bleed reason for continued hospitalization:permacath prior to dc Time Spent With Patient Time: Total time managing care of this patient today ____ minutes. Quality Stroke Does the patient have a stroke diagnosis?: No VTE Prior VTE?: No VTE Risk Level:: Medical - moderate - high VTE Device Contraindication: Treatment Not Indicated VTE Drug Contraindication: N/A - Med Ordered
--- NOTE | 2023-03-18 10:20 | P.PNNP_ITS ---
Subjective Subjective Date of Service: 03/18/23 Interval history: no complaints Seen during dialysis Physical Exam 2 Vital Signs: Vital Signs: Last Vital Signs Temp 98.0 F 03/18/23 03:12 Pulse 71 03/18/23 03:12 Resp 18 03/18/23 03:12 BP 129/63 03/18/23 03:12 Pulse Ox 93 03/18/23 03:12 O2 Del Method Room Air 03/18/23 03:12 BMI result Body Mass Index 32.2 Const: Other: Constitutional : Awake, interactive, not in distress Neck : Normal inspection, Supple Cardiovascular : RRR, no JVP, trace lower extremity edema Respiratory : good bilateral air entry, no crackles, wheezes or rhonchi Gastrointestinal: soft, lax, Normal bowel sounds, Non tender Skin : Warm, Dry Vascular: chest wall erythema and warmth at site of prev permacath covered with dressing Neurological : Alert & oriented x3, No focal deficit Objective Data Labs 03/18/23 05:19 03/18/23 05:19 Labs: Laboratory Results - last 24 hr 03/18/23 03/18/23 03/18/23 05:19 05:19 05:19 WBC 9.7 RBC 3.19 L Hgb 9.9 L Hct 28.8 L MCV 90.3 MCH 31.0 MCHC 34.4 RDW 15.6 Plt Count 326 D MPV 9.8 Absolute Nucleated RBC 0.000 Nucleated RBC % (auto) 0.0 PT 11.9 INR 1.0 APTT 27.6 Sodium 132 L Potassium 3.5 D Chloride 102 Carbon Dioxide 18 L Anion Gap 16 BUN 35 H Creatinine 8.28 H* Estim Creat Clear Calc 10.9 Estimated GFR 7 Fasting Glucose 135 H Calcium 8.8 Microbiology Microbiology Results: Microbiology 03/14/23 05:31 Blood - Venous Blood Culture - Preliminary Staphylococcus aureus 03/14/23 05:31 Blood - Venous Blood Culture - Preliminary Staphylococcus aureus 03/13/23 05:53 Blood - Venous Blood Culture - Preliminary Staphylococcus aureus 03/13/23 05:53 Blood - Venous Blood Culture - Preliminary Staphylococcus aureus 03/12/23 14:41 Blood - Venous Blood Culture - Preliminary Staphylococcus aureus 03/13/23 17:32 Catheter Tip - Other Catheter Tip Culture - Final Staphylococcus aureus 03/12/23 14:12 Blood - Venous Blood Culture - Preliminary Staphylococcus aureus 03/15/23 06:06 Blood - Venous Blood Culture - Preliminary No growth after 48 hours. 03/15/23 06:06 Blood - Venous Blood Culture - Preliminary No growth after 48 hours. 03/12/23 Unknown Urine clean catch - Urine umaña top Urine Culture - Final Procedures Date of Service Date of Service: 03/18/23 Assessment & Plan Assessment and plan (1) ESRD on dialysis: Status: Acute Plan 1. ESRD. continue dialysis. 2. Hyperkalemia We will use low-potassium bath during dialysis to correct hyperkalemia Keep on low-potassium diet Recheck potassium 3. Bacteremia. Agree with antibiotic coverage. 4. Anemia. Epogen 46047 units once a week 5. No need to check creatinine every day 6. Await Permcath today Can DC post permcath Time Spent With Patient Time: Total time managing care of this patient today ____ minutes. Progress Note: Quality Stroke Does the patient have a stroke diagnosis?: No
[2023-03-18 10:24] VITALS: BP 123/61; PULSE 71; RESP 16; TEMP 36.6; O2SAT 98
[2023-03-18] MEDS: ondansetron HCL 4 MG/2 ML VIAL IVPUSH (10:24)
[2023-03-18] MEDS: Acetaminophen 325 MG TABLET 650 MG PO (10:28)
[2023-03-18] MEDS: Sucralfate 1 GM TABLET PO ×3 (11:13→20:49)
[2023-03-18 12:17] LABS: Vancomycin Random 20.8 mcg/mL (15-20)
[2023-03-18 12:19] LABS: Creatinine Clr Calc Pharmacy 17.4; Estimated Glomerular Filt Rate 11
--- NOTE | 2023-03-18 12:23 | HE.PHANOTE ---
Re: vanco dosing post dialysis trough is 20.8 today. Will hold dose and get another level after next dialysis. Normal dialysis schedule is MoWeFr but he lost access so schedule is changing daily.
[2023-03-18 13:06] LABS: Glucose, Whole Blood 112 mg/dL (60-115)
[2023-03-18 15:45] VITALS: BP 144/66; PULSE 75; RESP 18; TEMP 37.1; O2SAT 100
[2023-03-18] MEDS: Lidocaine HCl 1 % MPF 30 ML VIAL 10 ML SUBCUT (15:55)
[2023-03-18] MEDS: Lidocaine HCl 1%/Epi 1:100,000 10 ML VIAL 5 ML SUBCUT (15:57)
[2023-03-18 16:00] VITALS: BP 122/61; BP 141/64; PULSE 72; PULSE 75; RESP 16; TEMP 36.4; TEMP 36.9; O2SAT 100; O2SAT 99
[2023-03-18] MEDS: Calcium Carbonate 750 MG TAB.CHEW PO ×2 (16:20→20:49)
[2023-03-18] MEDS: Sevelamer Carbonate Tablet 800 MG TABLET 1600 MG PO ×2 (16:20→20:49)
[2023-03-18] MEDS: 0.9 % Sodium Chloride Flush 3 ML SYRINGE IVFLUSH ×2 (16:20→20:50)
--- NOTE | 2023-03-18 16:46 | PC.NURSE ---
Pt returned from PACU at 16:15, observed dressing site to new permacath R upper chest D/C/I. Upon bringing patient 16:00 scheduled medications, he advised this nurse that he removed the occlusive dressing from the newly placed permacath site thinking it was unnecessary. Permacath remains intact in place. This nurse replaced the removed dressing with a central line dressing kit using sterile technique and sterile gloves. Pt tolerated well and reminded to leave dressing intact.
[2023-03-18 18:52] VITALS: BP 110/58; PULSE 80; RESP 16; TEMP 36.4; O2SAT 97
[2023-03-19 03:06] VITALS: BP 115/60; PULSE 66; RESP 16; TEMP 36.2; O2SAT 96
[2023-03-19] MEDS: Levothyroxine Sodium 75 MCG TABLET PO (05:14)
[2023-03-19] MEDS: Omeprazole 40 MG CAPSULE.DR PO (05:14)
[2023-03-19 07:34] VITALS: BP 142/66; PULSE 71; RESP 18; TEMP 36.1; O2SAT 98
[2023-03-19] MEDS: Torsemide 20 MG TABLET 40 MG PO (08:13)
[2023-03-19] MEDS: Calcium Carbonate 750 MG TAB.CHEW PO (08:13)
[2023-03-19] MEDS: Atorvastatin Calcium 40 MG TABLET PO (08:13)
[2023-03-19] MEDS: Ergocalciferol (Vitamin D2) 1,250 MCG CAPSULE 1250 MCG PO (08:14)
[2023-03-19] MEDS: Sertraline HCL 25 MG TABLET PO (08:14)
[2023-03-19] MEDS: Sevelamer Carbonate Tablet 800 MG TABLET 1600 MG PO (08:14)
[2023-03-19] MEDS: Sucralfate 1 GM TABLET PO (08:14)
[2023-03-19] MEDS: 0.9 % Sodium Chloride Flush 3 ML SYRINGE IVFLUSH (08:14)
--- NOTE | 2023-03-19 08:28 | P.DS_ITS ---
DS: Providers Provider Date of Service: 03/19/23 Date of admission: 03/12/23 17:43 Primary care physician: Segundo Tapia MD Consults: 03/12/23 17:55 Consult to Critical Care Routine Consulting Provider: Elma Bravo Reason for consultation: Temp dialysis catheter placement Consult to Nephrology Routine Consulting Provider: [facility] Reason for consultation: ESRD on HD M/W/F, missed dialysis, perm cath infection 03/12/23 21:52 Consult to Gastroenterology Routine Consulting Provider: Kelsie Christine Reason for consultation: episode of coffee ground emesis Has provider been notified: No 03/16/23 12:25 Consult to Infectious Diseases Routine Consulting Provider: [facility] Infectious Disease Reason for consultation: Staph A bacteremia, dialysis line infx. 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 Patient states that he has been experiencing fever, chills, nausea, headache, and stomach ache after waking up today. Patient admits he has been itching and scratching at his PermCath site and that it has occasionally oozed prurulent discharge. Patient also notes he missed dialysis today due to feeling unwell and presenting to the emergency department. Of note, patient was admitted 3 weeks prior on 02/16/2023-02/24/2023 for similar presentation of a PermCath site line infection with MSSA bacteremia. Patient had his line placed and was started on IV antibiotics and discharged home on 3 weeks of vancomycin with dialysis. Pt to have his current catheter removed in the ED. Dr. Bravo consulted, will place temporary dialysis catheter tomorrow and patient will then be subsequently dialyzed. Patient denies chest pain/pressure, palpitations. No shortness of breath. In the ED patient with low-grade fever of 100.3, tachycardic up to 109, and mild hypertension of 145/57. Labs were significant for leukocytosis of 13.1, H&H of 8.7/26.0, potassium 5.9, BUN 51, creatinine 7.10, BNP 228. Urine negative for UTI. CXR showed mild right base atelectasis. EKG demonstrated sinus tachycardia of [address] [place] in I, V4, and V5. Pt was treated with cefepime, vancomycin, Tylenol, glaucoma, and calcium gluconate. Pt will be admitted to the hospital for treatment and further evaluation of infection at the site of PermCath with IV antibiotics and line replacement. hospital course: Patient was admitted for recurrent MSSA bacteremia due to PermCath site cellulitis and catheter infection due to patient's scratching at the site. He was treated with IV vancomycin and then transitioned to cefazolin. His repeat cultures from 03/15 are negative. PermCath was replaced 03/18. will continue with cefazolin post hemodialysis for 4 weeks, end date 04/11/2023. Patient educated on causes of reinfection, and instructed to avoid contact with catheter site. For end-stage renal disease is continue on hemodialysis. For hyperkalemia is resolved. For acute on chronic anemia due to blood loss he was initially treated with IV PPI then transition to oral. He was seen by GI recommended conservative management. For chronic diastolic CHF he was continued on torsemide. For coronary disease he has continued statin. Hypothyroidism is continue on Synthroid. For mood disorder was continue on Zoloft. For hypertension his losartan was held for relatively low blood pressure. This will be restarted on discharge. Patient is feeling better will be discharged home. Time Spent with Patient Time attestation: Total time managing care of this patient today ____ minutes. Discharge coordination time: Greater than 30 minutes Quality: Safe Use of Opioids Does Pt have an Active Cancer Diagnosis on the Problem List?: No Quality: Stroke Does the patient have a stroke diagnosis?: No Physical Exam Vital Signs: Vital Signs: Last Vital Signs Temp 96.9 F 03/19/23 07:34 Pulse 71 03/19/23 07:34 Resp 18 03/19/23 07:34 BP 142/66 H 03/19/23 07:34 Pulse Ox 98 03/19/23 07:34 O2 Del Method Room Air 03/19/23 07:34 BMI result Body Mass Index 32.2 General: AO X 3, no acute distress Resp: CTA bilateral, no accessory muscles used CVS: S1,S2,RRR GI: soft, non tender, non distended Neuro: motor grossly intact, alert Psych: appropriate affect, appropriate insight DS: Data Data Completed and Pending Completed studies during hospitalization [Text1]: Procedures Drainage of Right Pleural Cavity with Drainage Device, Percutaneous Approach (10/28/22) Extraction of Right Inguinal Lymphatic, Percutaneous Approach, Diagnostic (04/23/20) Fluoroscopy of Superior Vena Cava, Guidance (10/28/22) Insertion of Infusion Device into Superior Vena Cava, Percutaneous Approach (02/16/23) Insertion of Tunneled Vascular Access Device into Chest Subcutaneous Tissue and Fascia, Percutaneous Approach (02/16/23) Performance of Urinary Filtration, Intermittent, Less than 6 Hours Per Day (02/16/23) Removal of Infusion Device from Great Vessel, External Approach (10/28/22) Ultrasonography of Superior Vena Cava, Guidance (02/16/23) Labs on day of discharge: Laboratory Results - last 24 hr 03/18/23 03/18/23 03/18/23 11:57 11:57 13:03 Creatinine 5.22 H* Estim Creat Clear Calc 17.4 Estimated GFR 11 POC Glucose 112 Random Vancomycin 20.8 H Preliminary micro results at discharge 03/14/23 05:31 Blood Culture - Preliminary Blood - Venous Staphylococcus aureus 03/14/23 05:31 Blood Culture - Preliminary Blood - Venous Staphylococcus aureus 03/13/23 05:53 Blood Culture - Preliminary Blood - Venous Staphylococcus aureus 03/13/23 05:53 Blood Culture - Preliminary Blood - Venous Staphylococcus aureus 03/12/23 14:41 Blood Culture - Preliminary Blood - Venous Staphylococcus aureus 03/12/23 14:12 Blood Culture - Preliminary Blood - Venous Staphylococcus aureus 03/15/23 06:06 Blood Culture - Preliminary Blood - Venous No growth after 48 hours. 03/15/23 06:06 Blood Culture - Preliminary Blood - Venous No growth after 48 hours. Discharge Plan Discharge Anticipated Discharge Date/Time: 03/19/23 08:24 Patient Disposition: Home Health Service Discharge Diagnosis: bacteremia Referrals: Segundo Tapia MD [Primary Care Provider] - 1 Week Discharge Medications: New cefazolin in dextrose (iso-os) 2 gram/50 mL Piggyback 2 g IV MoWeFr@1800 Qty: 0 0RF omeprazole 40 mg Capsule,Delayed Release(Dr/Ec) 40 mg PO DAILY Qty: 30 0RF Continued levothyroxine 75 mcg Tablet 75 mcg PO DAILY@0600 atorvastatin 40 mg tablet 40 mg PO DAILY sertraline 25 mg tablet 1 tab PO DAILY losartan 50 mg tablet 50 mg PO DAILY torsemide 20 mg tablet 40 mg PO BID@0900,1400 calcium carbonate [Ultra Strength Antacid] 400 mg calcium (1,000 mg) tablet,chewable 400 mg PO TID ergocalciferol (vitamin D2) 1,250 mcg (50,000 unit) capsule 1,250 mcg PO FR@0900 sevelamer carbonate 800 mg tablet 1,600 mg PO TID Discontinued vancomycin in 0.9 % sodium chl 500 mg/100 mL piggyback 500 mg IV MOWEFR Qty: 1000 0RF Rx Instructions: end date 03/17 Discharge Orders: Discharge Order (Routine); Ordered 03/19/23 Ordered By: Paul Welch Diet: Advance to usual diet Activity on Discharge: As tolerated Stand Alone Forms: Patient Portal Discharge page Care Plan Goals: recovery Health Concerns: mssa bacteremia Plan of Treatment: ancef after HD until 03/22/23, do not pick or scratch at catheter site. Assessment: see above
--- NOTE | 2023-03-19 09:16 | MHC.CM.PN ---
PT WILL DC HOME TODAY WITH RESUMPTION OF HD AT [facility] WHERE HE WILL RECEIVE HIS ABX WELL PT REPORTS HIS PARENTS WILL BE PICKING HIM UP AT DC
== END 2023-03-19 09:48 | disposition home or self-care (01) | DRG 314 ==
LOC: HO.ED 16:57 → HO.EDOVER 18:04 → HO.S3 18:41
PROVIDERS: Internal Medicine; Radiology Vascular & Interventional Radiology; Student in an Organized Health Care Education/Training Program; Admitting Provider Student in an Organized Health Care Education/Training Program; Emergency Provider Emergency Medicine; PCP Internal Medicine; Visit Provider Internal Medicine
PROC: 02HV33Z Insertion of Infusion Device into Superior Vena Cava, Percutaneous Approach (ICD-10-PCS; principal; 2023-03-16 10:30)
PROC: 02PY33Z Removal of Infusion Device from Great Vessel, Percutaneous Approach (ICD-10-PCS; principal; 2023-03-18 13:30)
DX: T80.211A Bloodstream infection due to central venous catheter, initial encounter (principal); A41.01 Sepsis due to Methicillin susceptible Staphylococcus aureus; K29.61 Other gastritis with bleeding; N18.6 End stage renal disease; I13.2 Hypertensive heart and chronic kidney disease with heart failure and with stage 5 chronic kidney disease, or end stage renal disease; D62 Acute posthemorrhagic anemia; I50.32 Chronic diastolic (congestive) heart failure; L03.313 Cellulitis of chest wall; Y82.8 Other medical devices associated with adverse incidents; E13.22 Other specified diabetes mellitus with diabetic chronic kidney disease; D63.1 Anemia in chronic kidney disease; E03.9 Hypothyroidism, unspecified; I25.10 Atherosclerotic heart disease of native coronary artery without angina pectoris; E78.5 Hyperlipidemia, unspecified; D72.829 Elevated white blood cell count, unspecified; F39 Unspecified mood [affective] disorder; E87.5 Hyperkalemia; Z20.822 Contact with and (suspected) exposure to COVID-19; Z99.2 Dependence on renal dialysis; Z95.2 Presence of prosthetic heart valve; Z91.158 Patient's noncompliance with renal dialysis for other reason; Z87.891 Personal history of nicotine dependence; Z88.0 Allergy status to penicillin; Z79.890 Hormone replacement therapy; Z79.899 Other long term (current) drug therapy
CPT/HCPCS: 36415; 36556; 36558; 71045; 76937; 80048; 80076; 80202; 81001; 82565; 82947; 83605; 83690; 83880; 84484; 85025; 85027; 85610; 85730; 86850; 86900; 86901; 86923; 87040; 87071; 87077; 87086; 87147; 87186; 87205; 87635; 90999; 93005; 99152; 99153; 99285; C1750; C1752; C1769; J0613; J0690; J0692; J0885; J1643; J2405; J3370; P9016

== ENCOUNTER 2023-03-12 17:43 | Outpatient (BNV) | payer MEDICARE, MEDICAID, SELFPAY | END 2023-03-16 10:30 | PROVIDERS: Admitting Provider Student in an Organized Health Care Education/Training Program; Emergency Provider Emergency Medicine; PCP Internal Medicine; Visit Provider Radiology Vascular & Interventional Radiology | DX: T85.71XA Infection and inflammatory reaction due to peritoneal dialysis catheter, initial encounter (principal) | CPT/HCPCS: 36556; 76937 ==

== ENCOUNTER 2023-03-12 17:43 | Outpatient (BNV) | payer MEDICARE, MEDICAID, SELFPAY | END 2023-03-18 13:46 | PROVIDERS: Admitting Provider Student in an Organized Health Care Education/Training Program; Emergency Provider Emergency Medicine; PCP Internal Medicine; Visit Provider Radiology Vascular & Interventional Radiology | DX: N18.6 End stage renal disease (principal) | CPT/HCPCS: 36561; 76937 ==

== ENCOUNTER → 2023-03-12 17:43 | Outpatient (BNV) | payer MEDICARE, MEDICAID, SELFPAY | PROVIDERS: Admitting Provider Student in an Organized Health Care Education/Training Program; Emergency Provider Emergency Medicine; PCP Internal Medicine; Visit Provider Student in an Organized Health Care Education/Training Program | DX: N18.6 End stage renal disease (principal); Z99.2 Dependence on renal dialysis | CPT/HCPCS: 99223; 99232; 99233; 99239; 99499 ==

== ENCOUNTER → 2023-03-12 17:43 | Outpatient (BNV) | payer MEDICARE, MEDICAID, SELFPAY | PROVIDERS: Admitting Provider Student in an Organized Health Care Education/Training Program; Emergency Provider Emergency Medicine; PCP Internal Medicine; Visit Provider Internal Medicine Gastroenterology | DX: D62 Acute posthemorrhagic anemia (principal); K92.2 Gastrointestinal hemorrhage, unspecified | CPT/HCPCS: 99232 ==

== ENCOUNTER → 2023-03-12 17:43 | Outpatient (BNV) | payer MEDICARE, MEDICAID, SELFPAY | PROVIDERS: Admitting Provider Student in an Organized Health Care Education/Training Program; Emergency Provider Emergency Medicine; PCP Internal Medicine; Visit Provider Internal Medicine | DX: R78.81 Bacteremia (principal); A41.9 Sepsis, unspecified organism; B95.61 Methicillin susceptible Staphylococcus aureus infection as the cause of diseases classified elsewhere; T82.7XXA Infection and inflammatory reaction due to other cardiac and vascular devices, implants and grafts, initial encounter | CPT/HCPCS: 99222 ==

== ENCOUNTER 2023-04-08 20:59 | Emergency (ER) | payer MEDICARE, MEDICAID, SELFPAY ==
[2023-04-08 21:20] VITALS: BP 148/80; BP 160/75; PULSE 70; PULSE 95; RESP 14; TEMP 36.6; O2SAT 97; BMI 35.7
[2023-04-08] MEDS: Ondansetron ODT 4 MG TAB.RAPDIS SUBLINGUAL (21:34)
--- NOTE | 2023-04-08 21:41 | ED_ITS ---
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 which was replaced currently on cefazolin on dialysis days comes in for nausea vomiting started since 20:00 patient missed his dialysis yesterday as he was not feeling good in today patient vomited about 3 times do not eat much. Patient been on dialysis for last 1 year makes only very little urine Related Data Home Medications Medication Instructions Recorded Confirmed levothyroxine 75 mcg tablet 75 mcg PO DAILY@0600 06/27/20 04/08/23 atorvastatin 40 mg tablet 40 mg PO DAILY 02/10/22 04/08/23 sertraline 25 mg tablet 1 tab PO DAILY 10/03/22 04/08/23 calcium carbonate 400 mg calcium 400 mg PO TID 02/16/23 04/08/23 (1,000 mg) chewable tablet (Ultra Strength Antacid) ergocalciferol (vitamin D2) 1,250 1,250 mcg PO FR@0900 02/16/23 04/08/23 mcg (50,000 unit) capsule losartan 50 mg tablet 50 mg PO DAILY 02/16/23 04/08/23 sevelamer carbonate 800 mg tablet 1,600 mg PO TID 02/16/23 04/08/23 torsemide 20 mg tablet 40 mg PO BID@0900,1400 02/16/23 04/08/23 Previous Rx's Medication Instructions Recorded cefazolin 2 gram/50 mL in dextrose 2 g IV MoWeFr@1800 #0 ea 03/19/23 (iso-osmotic) intravenous piggyback omeprazole 40 mg capsule,delayed 40 mg PO DAILY #30 caps 03/19/23 release Allergies Allergy/AdvReac Type Severity Reaction Status Date / Time Penicillins Allergy Unknown UNKWN Verified 07/24/22 09:42 Review of Systems 2 Review of Systems: Yes all other systems are reviewed and are negative [facility] Past Medical History Medical History Staphylococcal pneumonia Pleural effusion Anasarca associated with disorder of kidney Congestive heart failure Membranous nephrosis Aortic stenosis 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 Social History Social History Household Members: None Housing: Apartment Do you presently have visiting nurse or other home services: No Unable to assess alcohol history related to: Unknown Alcohol intake: never Patient Tobacco Use Status: Former Tobacco user Quit Date: 5 years ago Tobacco use type: Cigarette Years Smoked: 30 Smoked in Last 30 Days: No e-Cigarette/Vaping Use: Never Used Second Hand Smoke Exposure: No Use of substances other than those prescribed or required for medical reasons: No Advance Directives: No Advance Directives Information Provided: No Advance Directives Date on File: 05/01/20 service: No Current occupational status: unemployed and disabled Physical Exam 2 Vital Signs: Vital Signs: Last Vital Signs Temp 97.8 F 04/08/23 21:20 Pulse 70 04/08/23 21:20 Resp 14 04/08/23 21:20 BP 160/75 H 04/08/23 21:20 Pulse Ox 97 04/08/23 21:20 O2 Del Method Room Air 04/08/23 21:20 BMI result Body Mass Index 35.7 Appearance: Alert. Oriented X3. mild distress. Eyes: PERRLA, No Nystagmus ENT: Pharynx normal. Oral Mucosa moist Neck: Normal inspection. Neck supple. CVS: Normal heart rate and rhythm. Pulses normal. Respiratory: No respiratory distress. Equal air entry bilateral, no wheezing/rales/rhonchi PermCath in place on the right side Abdomen: Soft and nontender. Bowel sounds are present, no mass palpable, no CVA tenderness Skin: Skin warm and dry. Normal skin color. Normal skin turgor. Extremities: No lower extremity edema. No calf tenderness Neuro: Oriented X 3. No motor deficit. No sensory deficit.No cerebellar signs , cranial nerves II-XII intact Medications Administered Discontinued Medications Generic Name Dose Route Start Last Admin Trade Name Freq PRN Reason Stop Dose Admin Sodium Chloride 1,000 mls @ 100 mls/hr 04/08/23 22:00 04/09/23 01:43 Ns IVCONT Infused .Q10H ROSALIA Infusion Cefazolin Sodium/Dextrose 2 gm in 50 mls @ 100 mls/hr 04/08/23 21:54 04/09/23 01:43 Ancef IV 04/08/23 22:23 Infused ONCE ONE Infusion Ondansetron HCl 4 mg 04/08/23 21:23 04/08/23 21:34 Ondansetron Odt 4 Mg Tab.Rapdis SUBLINGUAL 04/08/23 21:24 4 mg ONCE ONE Administration Ondansetron HCl 4 mg 04/08/23 21:54 04/09/23 00:06 Ondansetron Hcl 4 Mg/2 Ml Vial IVPUSH 04/08/23 21:55 4 mg ONCE ONE Administration Sodium Zirconium Cyclosilicate 10 gm 04/09/23 01:10 04/09/23 01:52 Sodium Zirconium Cyclosilicate 10 Gm Powd.Pack PO 04/09/23 01:11 10 gm ONCE ONE Administration Medical Decision Making Medical Decision Making [facility] Narrative: Patient received IV antibiotics and fluids and IV Zofran feeling much better took p.o. fluids advised to have dialysis today in the a.m. Differential Diagnosis Differential Diagnoses: The differential diagnosis associated with the presentation includes Gastroenteritis/bacteremia/renal failure Lab Data [facility] Lab Attestation statement: I reviewed the patient's lab results. 04/08/23 23:58 04/08/23 23:58 Labs: Lab Results 04/08/23 04/08/23 04/08/23 Range/Units 23:23 23:24 23:58 WBC 9.3 (4.8-10.8) X10*3/uL RBC 2.93 L (4.60-5.80) X10*6/uL Hgb 9.0 L (14.0-18.0) g/dl Hct 28.5 L (42.0-52.0) % MCV 97.3 (80.0-98.0) fL MCH 30.7 (27.0-33.0) pg MCHC 31.6 (31.0-36.0) g/dl RDW 16.3 H (11.0-16.0) % Plt Count 258 (160-400) X10*3/uL MPV 9.6 (9.4-12.4) fL Absolute Nucleated RBC 0.000 (0.0-0.012) X10*3/uL Nucleated RBC % (auto) 0.0 (0.0-0.2) /100WBC Sodium 138 (135-145) mmol/L Potassium 5.8 H D (3.3-5.1) mmol/L Chloride 106 (96-108) mmol/L Carbon Dioxide 21 L (22-29) mmol/L Anion Gap 17 (12-20) BUN 65 H (9-16) mg/dL Creatinine 7.72 H* (0.5-1.4) mg/dL Estim Creat Clear Calc 12.3 Estimated GFR 7 Random Glucose 202 H (60-115) mg/dL Lactic Acid 1.1 (0.5-2.0) mmol/L Calcium 9.2 (8.4-10.2) mg/dL Magnesium 2.0 (1.6-2.6) mg/dL Total Bilirubin 0.2 (0.0-1.0) mg/dL Direct Bilirubin < 0.2 (0.0-0.5) mg/dL AST 19 (5-37) U/L ALT < 5 (0-40) U/L Alkaline Phosphatase 82 (39-117) U/L Total Protein 6.9 (6.5-8.0) g/dL Albumin 2.9 L (3.5-5.0) g/dL Lipase 29 (8-78) U/L Urine Color Yellow Urine Appearance Clear Urine pH 7.5 (5.0-9.0) Ur Specific [place] 1.025 (1.005-1.025) Urine Protein >=1000 (4+) H (Neg-Trace) mg/dL Urine Glucose (UA) >=1000 H (Negative) mg/dL Urine Ketones Negative (Negative) mg/dL Urine Blood Small (1+) H (Negative) Urine Nitrite Negative (Negative) Ur Leukocyte Esterase Negative (Negative) Urine RBC 0-2 (0-2) /HPF Urine WBC 0-5 (0-5) /HPF Ur Squamous Epith Cells 0-2 (0-2) /HPF Urine Bacteria None Seen (None Seen) Hyaline Casts 11-20 (0-2) /LPF COVID-19 (CYRUS) Negative (Negative) COVID-19 Clin Com See Note Discharge Plan Discharge Clinical Impression: Renal failure, chronic Patient Disposition: Home, Self-Care Instructions: End Stage Kidney Disease (ED) Additional Instructions: Have your dialysis today Do not miss dialysis Follow-up with your PCP Prescriptions: No Action levothyroxine 75 mcg Tablet 75 mcg PO DAILY@0600 atorvastatin 40 mg tablet 40 mg PO DAILY sertraline 25 mg tablet 1 tab PO DAILY cefazolin in dextrose (iso-os) 2 gram/50 mL Piggyback 2 g IV MoWeFr@1800 Qty: 0 0RF Rx Instructions: finish on 04/11/23 omeprazole 40 mg Capsule,Delayed Release(Dr/Ec) 40 mg PO DAILY Qty: 30 0RF losartan 50 mg tablet 50 mg PO DAILY torsemide 20 mg tablet 40 mg PO BID@0900,1400 calcium carbonate [Ultra Strength Antacid] 400 mg calcium (1,000 mg) tablet,chewable 400 mg PO TID ergocalciferol (vitamin D2) 1,250 mcg (50,000 unit) capsule 1,250 mcg PO FR@0900 sevelamer carbonate 800 mg tablet 1,600 mg PO TID Interventions: ED Discharge Assessment Last Done: 04/09/23 02:02 Discharge Date/Time: 04/09/23 02:03
--- NOTE | 2023-04-08 22:03 | MHC.EDTECH ---
Attempted to get bloodwork after the nurse attempted an IV. Patient began to talk over the tech about needing the bloodwork. patient continued to raise their voice and get angry. Tech was unable to get bloodwork at this time.
--- NOTE | 2023-04-08 22:04 | PC.NURSE ---
I attempted an IV in the pt right hand. Pt pulled his hand away and told me to stop, Needle came out of pt. Pt started to argue with me and my tech. I stepped out and Tech went to draw labs, pt refused. aware. Labs and medication administration delayed. Attempted an IV a second time, ptpulled his hand away and told me to stop. I explained the importance of labs and a line, pt told me no and asked for someone else.
--- NOTE | 2023-04-08 22:07 | PHA.MEDREC ---
Pharmacy Consult ? Medication Reconciliation Pharmacy has completed the medication reconciliation. Patient historically does not know names of medications. Utilized claim history and discharge summary on 03/19/23. Patient to be on cefazolin 2 g MoWeFr until 04/11/23. Kristina Aguirre, DamiánD
[2023-04-08 23:31] LABS: Appearance Urine Clear; Color Urine Yellow; Glucose Urine UA >=1000 mg/dL (Negative); Leukocyte Esterase Urine Negative (Negative); Nitrite Urine Negative (Negative); PH 7.5 (5.0-9.0); Specific Gravity - Urine 1.025 (1.005-1.025); UMIC TRIGGER UACC YES; Urine Blood Small (1+) (Negative); Urine Ketones Negative (Negative); Urine Protein >=1000 (4+) mg/dL (Neg-Trace)
[2023-04-08 23:41] LABS: COVID-19 Test Negative (Negative); IDNOW Serial# BCCEAD1C
[2023-04-08 23:44] LABS: Bacteria Urine None Seen (None Seen); RBC Urine 0-2 /HPF (0-2); Squamous Epithelial Cell Urine 0-2 /HPF (0-2); WBC Urine 0-5 /HPF (0-5)
[2023-04-09 00:06] LABS: Hematocrit 28.5 % (42.0-52.0); Mean Corpuscular HGB Conc 31.6 g/dl (31.0-36.0); Mean Corpuscular Hemoglobin 30.7 pg (27.0-33.0); Mean Corpuscular Volume 97.3 fL (80.0-98.0); Mean Platelet Volume 9.6 fL (9.4-12.4); Platelet Count 258 X10*3/uL (160-400); Red Blood Count 2.93 X10*6/uL (4.60-5.80); Red Cell Distribution Width 16.3 % (11.0-16.0); White Blood Count 9.3 X10*3/uL (4.8-10.8)
[2023-04-09] MEDS: ondansetron HCL 4 MG/2 ML VIAL IVPUSH (00:06)
[2023-04-09] MEDS: ceFAZolin Sodium/Dextrose,Iso 2 GM/50 ML PIGGYBACK IV (00:06)
[2023-04-09] MEDS: 0.9 % Sodium Chloride 1,000 ML 100 ML IVCONT (00:13)
[2023-04-09 00:16] LABS: Lactic Acid 1.1 mmol/L (0.5-2.0)
[2023-04-09 00:33] LABS: Alanine Aminotransferase < 5 U/L (0-40); Albumin Level 2.9 g/dL (3.5-5.0); Alkaline Phosphatase 82 U/L (39-117); Anion Gap 17 (12-20); Aspartate Amino Transferase 19 U/L (5-37); Bilirubin Direct < 0.2 mg/dL (0.0-0.5); Bilirubin Total 0.2 mg/dL (0.0-1.0); Blood Urea Nitrogen 65 mg/dL (9-16); Calcium 9.2 mg/dL (8.4-10.2); Carbon Dioxide 21 mmol/L (22-29); Chloride 106 mmol/L (96-108); Creatinine Clr Calc Pharmacy 12.3; Estimated Glomerular Filt Rate 7; Glucose Random 202 mg/dL (60-115); Lipase 29 U/L (8-78); Potassium 5.8 mmol/L (3.3-5.1); Sodium 138 mmol/L (135-145); Total Protein 6.9 g/dL (6.5-8.0)
[2023-04-09] MEDS: Sodium Zirconium Cyclosilicate 10 GM POWD.PACK PO (01:52)
== END 2023-04-09 02:03 | disposition home or self-care (01) ==
PROVIDERS: Emergency Provider Internal Medicine; PCP Internal Medicine
DX: E13.22 Other specified diabetes mellitus with diabetic chronic kidney disease (principal); I13.2 Hypertensive heart and chronic kidney disease with heart failure and with stage 5 chronic kidney disease, or end stage renal disease; N18.6 End stage renal disease; I50.30 Unspecified diastolic (congestive) heart failure; Z99.2 Dependence on renal dialysis; E78.5 Hyperlipidemia, unspecified; Z87.891 Personal history of nicotine dependence; Z20.822 Contact with and (suspected) exposure to COVID-19; Z79.899 Other long term (current) drug therapy
CPT/HCPCS: 36415; 80053; 81001; 82248; 83605; 83690; 83735; 85027; 87040; 87635; 96365; 96366; 96375; 99284; J0690; J2405

== ENCOUNTER 2023-04-23 04:49 | Emergency (ER) | payer MEDICARE, MEDICAID, SELFPAY ==
[2023-04-23 05:00] VITALS: BP 180/90; PULSE 75; O2SAT 98
[2023-04-23 05:19] VITALS: BP 168/71; PULSE 75; RESP 16; TEMP 36.4; O2SAT 99; BMI 31.9
--- NOTE | 2023-04-23 05:25 | ED.NAVMDI ---
HPI - Nausea/Vomiting/Diarrhea General Chief complaint: Nausea/Vomiting/Diarrhea Stated complaint: nausea / vomitting, dizziness Time Seen by Provider: 04/23/23 05:25 Source: patient Mode of arrival: EMS Limitations: no limitations History of Present Illness HPI Narrative: Patient history of end-stage renal disease on dialysis Wednesday started vomiting last night vomited about 4 times with diffuse abdominal discomfort had once normal bowel movement an hour prior to arrival no fever no chills no upper respiratory symptoms no other family member sick no intake of any bad food or seafood Related Data Home Medications Medication Instructions Recorded Confirmed levothyroxine 75 mcg tablet 75 mcg PO DAILY@0600 06/27/20 04/08/23 atorvastatin 40 mg tablet 40 mg PO DAILY 02/10/22 04/08/23 sertraline 25 mg tablet 1 tab PO DAILY 10/03/22 04/08/23 calcium carbonate 400 mg calcium 400 mg PO TID 02/16/23 04/08/23 (1,000 mg) chewable tablet (Ultra Strength Antacid) ergocalciferol (vitamin D2) 1,250 1,250 mcg PO FR@0900 02/16/23 04/08/23 mcg (50,000 unit) capsule losartan 50 mg tablet 50 mg PO DAILY 02/16/23 04/08/23 sevelamer carbonate 800 mg tablet 1,600 mg PO TID 02/16/23 04/08/23 torsemide 20 mg tablet 40 mg PO BID@0900,1400 02/16/23 04/08/23 Previous Rx's Medication Instructions Recorded cefazolin 2 gram/50 mL in dextrose 2 g IV MoWeFr@1800 #0 ea 03/19/23 (iso-osmotic) intravenous piggyback omeprazole 40 mg capsule,delayed 40 mg PO DAILY #30 caps 03/19/23 release ondansetron 4 mg disintegrating 4 mg PO Q6-8H PRN nausea and 04/23/23 tablet vomiting #10 tabs Allergies Allergy/AdvReac Type Severity Reaction Status Date / Time Penicillins Allergy Unknown UNKWN Verified 07/24/22 09:42 Review of Systems Review of Systems: Yes all other systems are reviewed and are negative PMFSH Past Medical History Medical History Staphylococcal pneumonia Pleural effusion Anasarca associated with disorder of kidney Congestive heart failure Membranous nephrosis Aortic stenosis 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 Social History Social History Household Members: None Housing: Apartment Do you presently have visiting nurse or other home services: No Unable to assess alcohol history related to: Unknown Alcohol intake: never Patient Tobacco Use Status: Former Tobacco user Quit Date: 5 years ago Tobacco use type: Cigarette Years Smoked: 30 Smoked in Last 30 Days: No e-Cigarette/Vaping Use: Never Used Second Hand Smoke Exposure: No Use of substances other than those prescribed or required for medical reasons: No Advance Directives: No Advance Directives Information Provided: Yes Advance Directives Date on File: 05/01/20 service: No Current occupational status: unemployed and disabled Physical Exam Vital Signs: Vital Signs: Last Vital Signs Temp 97.2 F 04/23/23 06:04 Pulse 79 04/23/23 06:04 Resp 16 04/23/23 06:04 BP 135/53 L 04/23/23 06:04 Pulse Ox 100 04/23/23 06:04 O2 Del Method Room Air 04/23/23 06:04 BMI result Body Mass Index 31.9 Appearance: Alert. Oriented X3. No acute distress. Eyes: PERRLA, No Nystagmus ENT: Pharynx normal. Oral Mucosa moist Neck: Normal inspection. Neck supple. CVS: Normal heart rate and rhythm. Pulses normal. Respiratory: No respiratory distress. Equal air entry bilateral, no wheezing/rales/rhonchi Shily catheter on the right subclavian Abdomen: Soft communication distended diffuse discomfort no rebound tenderness or guarding, Bowel sounds are present, no mass palpable, no CVA tenderness Skin: Skin warm and dry. Normal skin color. Normal skin turgor. Extremities: No lower extremity edema. No calf tenderness Neuro: Oriented X 3. No motor deficit. No sensory deficit.No cerebellar signs , cranial nerves II-XII intact Medications Administered Discontinued Medications Generic Name Dose Route Start Last Admin Trade Name Freq PRN Reason Stop Dose Admin Ondansetron HCl 4 mg 04/23/23 05:48 04/23/23 05:59 Ondansetron Odt 4 Mg Tab.Rapdis TRANSLINGU 04/23/23 05:49 4 mg ONCE ONE Administration Medical Decision Making Medical Decision Making [facility] Narrative: Patient acute nausea/vomiting had normal bowel movement KUB x-ray negative for small-bowel option patient improved after Zofran sublingual taking p.o. fluids patient due for dialysis today labs are stable will discharge patient home advised to go for dialysis Differential Diagnosis Differential Diagnoses: The differential diagnosis associated with the presentation includes Metabolic abnormality/small bowel obstruction/pancreatitis/cholecystitis Admission/Observation Consideration of admission/observation: Escalation of care including admission/observation considered Lab Data [facility] Lab Attestation statement: I reviewed the patient's lab results. 04/23/23 05:31 04/23/23 05:31 Labs: Lab Results 04/23/23 Range/Units 05:31 WBC 9.1 (4.8-10.8) X10*3/uL RBC 3.01 L (4.60-5.80) X10*6/uL Hgb 9.3 L (14.0-18.0) g/dl Hct 28.8 L (42.0-52.0) % MCV 95.7 (80.0-98.0) fL MCH 30.9 (27.0-33.0) pg MCHC 32.3 (31.0-36.0) g/dl RDW 15.5 (11.0-16.0) % Plt Count 289 (160-400) X10*3/uL MPV 9.4 (9.4-12.4) fL Immature Gran % (Auto) 1.7 H (0.0-0.4) % Neut % (Auto) 70.3 (45-73) % Lymph % (Auto) 11.3 L (20-40) % [place] % (Auto) 9.6 (2-11) % Eos % (Auto) 6.4 H (0-4) % Baso % (Auto) 0.7 (0-2) % Lymph # (Auto) 1.0 L (1.2-4.9) X10*3/uL [place] # (Auto) 0.9 (0.1-1.2) X10*3/uL Eos # (Auto) 0.6 H (0.0-0.4) X10*3/uL Baso # (Auto) 0.1 (0.0-0.2) X10*3/uL Abs Immat Gran (auto) 0.15 H (0.00-0.03) X10*3/uL Absolute Neuts (auto) 6.4 (2.0-8.3) x10*3/uL Absolute Nucleated RBC 0.000 (0.0-0.012) X10*3/uL Nucleated RBC % (auto) 0.0 (0.0-0.2) /100WBC Sodium 137 (135-145) mmol/L Potassium 5.1 (3.3-5.1) mmol/L Chloride 104 (96-108) mmol/L Carbon Dioxide 17 L (22-29) mmol/L Anion Gap 21 H (12-20) BUN 61 H (9-16) mg/dL Creatinine 7.46 H* (0.5-1.4) mg/dL Estim Creat Clear Calc 10.7 Estimated GFR 7 Random Glucose 186 H (60-115) mg/dL Calcium 9.3 (8.4-10.2) mg/dL Total Bilirubin 0.2 (0.0-1.0) mg/dL AST 20 (5-37) U/L ALT < 5 (0-40) U/L Alkaline Phosphatase 73 (39-117) U/L Total Protein 6.8 (6.5-8.0) g/dL Albumin 2.9 L (3.5-5.0) g/dL Lipase 47 (8-78) U/L COVID-19 (CYRUS) Negative (Negative) COVID-19 Clin Com See Note Radiology Impression Discussion of test interpretation with radiology: I have reviewed the radiologist's reading. Tests considered The following testing was considered but not selected: CT scan of the abdomen which was not done as patient has previous CT scan abdomen done on 02/16/23 which was negative Discharge Plan Discharge Clinical Impression: Nausea & vomiting, End stage chronic kidney disease Patient Disposition: Home, Self-Care Instructions: Acute Nausea and Vomiting (ED), End Stage Kidney Disease (ED) Additional Instructions: Takemedication as prescribed and have a dialysis today Do not miss your dialysis Take nausea medication as prescribed Prescriptions: New ondansetron 4 mg tablet,disintegrating 4 mg PO Q6-8H PRN (Reason: nausea and vomiting) Qty: 10 0RF No Action levothyroxine 75 mcg Tablet 75 mcg PO DAILY@0600 atorvastatin 40 mg tablet 40 mg PO DAILY sertraline 25 mg tablet 1 tab PO DAILY cefazolin in dextrose (iso-os) 2 gram/50 mL Piggyback 2 g IV MoWeFr@1800 Qty: 0 0RF Rx Instructions: finish on 04/11/23 omeprazole 40 mg Capsule,Delayed Release(Dr/Ec) 40 mg PO DAILY Qty: 30 0RF losartan 50 mg tablet 50 mg PO DAILY torsemide 20 mg tablet 40 mg PO BID@0900,1400 calcium carbonate [Ultra Strength Antacid] 400 mg calcium (1,000 mg) tablet,chewable 400 mg PO TID ergocalciferol (vitamin D2) 1,250 mcg (50,000 unit) capsule 1,250 mcg PO FR@0900 sevelamer carbonate 800 mg tablet 1,600 mg PO TID
[2023-04-23 06:04] VITALS: BP 135/53; PULSE 79; RESP 16; TEMP 36.2; O2SAT 100
--- NOTE | 2023-04-23 08:27 | PC.NURSE ---
called pts family to pick him up and bring him home
== END 2023-04-23 09:16 | disposition home or self-care (01) ==
PROVIDERS: Emergency Provider Internal Medicine
DX: R11.2 Nausea with vomiting, unspecified (principal); E13.22 Other specified diabetes mellitus with diabetic chronic kidney disease; I13.2 Hypertensive heart and chronic kidney disease with heart failure and with stage 5 chronic kidney disease, or end stage renal disease; I50.9 Heart failure, unspecified; N18.6 End stage renal disease; Z99.2 Dependence on renal dialysis; D62 Acute posthemorrhagic anemia; E78.5 Hyperlipidemia, unspecified; Z11.52 Encounter for screening for COVID-19; Z87.891 Personal history of nicotine dependence; Z79.899 Other long term (current) drug therapy
CPT/HCPCS: 36415; 74018; 80053; 83690; 85025; 87635; 93005; 99283; 99285

== ENCOUNTER 2023-07-17 21:51 | Inpatient (IN) | payer MEDICARE, MEDICAID, SELFPAY ==
--- NOTE | ~2023-07-17 | IR_ITS ---
CLINICAL HISTORY: Bacteremia. Patient needs temporary access for hemodialysis PROCEDURES: 1. Real-time ultrasound-guided access into the right internal jugular vein after documentation of selected vessel patency, and permanent imaging storing in the patient record. 2. Placement of a 12 fr, 20 cm non-tunneled, dual-lumen hemodialysis catheter. Clinician: Tanner Penaloza PA-C MEDICATIONS: -Lidocaine 1% 10 mL SQ. -Antibiotics: Ancef -For additional details, please see nursing flowsheet. COMPLICATIONS: None. ESTIMATED BLOOD LOSS: <5 ml SPECIMENS: None FLUOROSCOPY TIME: 1.2 min PROCEDURE NOTE: The procedure, risks, benefits, and alternatives were carefully explained to patient, and written informed consent was obtained. The patient was placed supine on the fluoroscopy table. A timeout was performed. The right neck and chest was prepped and draped in usual sterile fashion. Local anesthesia was administered to the access site with lidocaine. Under ultrasound guidance, the right internal jugular vein was accessed with a 5 Fr micropuncture set. A 0.035 in wire was advanced to the IVC. The tract was then serially dilated. Over the wire, a 12 [place] 20 cm non-tunneled, dual-lumen hemodialysis catheter was advanced, the tip located at the cavoatrial junction. The wire was then removed. A permanent fluoroscopic image of the chest was saved to PACS. The catheter was secured to the skin with a 2-0 Ethilon suture. The catheter ports were packed with heparin per routine protocol. A dry sterile dressing was applied to the right neck. FINDINGS: 1. Patent right internal jugular vein. 2. Placement of a non-tunneled, dual-lumen hemodialysis catheter as above. 3. Catheter flushes and aspirates very well with a 10 mL syringe. No pneumothorax. IR/IR us guide venous access IMPRESSION: Placement of a non-tunneled hemodialysis catheter in the right internal jugular vein. PLAN: -The catheter may be used immediately. This procedure was performed by Tanner Penaloza PA-C, and directly supervised by Dr. Sumner.
--- NOTE | ~2023-07-17 | IR_ITS ---
PROCEDURE: IR INSERTION OF TUNNEL CATHETER CLINICAL INFORMATION: End-stage renal disease COMPARISON: None available. TECHNIQUE: All elements of maximal sterile barrier technique followed including use of cap, mask, sterile gown, sterile gloves, a sterile full body drape and hand hygiene. Also followed skin preparation with 2% chlorhexidine for cutaneous antisepsis, and sterile ultrasound preparation with sterile gel and probe cover when applicable. FINDINGS: Under ultrasound guidance a micropuncture needle was placed into the right internal jugular vein. An .035 guidewire was advanced into the right atrium. A peel-away sheath was placed. A 23 cm in length 14.5 Amharic permacatheter was tunneled beneath the skin surface and subsequently through the peel-away sheath into the midportion of the right atrium. Both ports were flushed with heparinized saline. The temporary line was then removed and manual pressure held for 5 minutes. IR/IR cvc insert central tunnel IMPRESSION: Placement of a 23 cm 14.5 Amharic permacatheter via the right internal jugular approach
--- NOTE | ~2023-07-17 | IR_ITS ---
CLINICAL HISTORY: Bacteremia. Patient needs temporary access for hemodialysis PROCEDURES: 1. Real-time ultrasound-guided access into the right internal jugular vein after documentation of selected vessel patency, and permanent imaging storing in the patient record. 2. Placement of a 12 fr, 20 cm non-tunneled, dual-lumen hemodialysis catheter. Clinician: Tanner Penaloza PA-C MEDICATIONS: -Lidocaine 1% 10 mL SQ. -Antibiotics: Ancef -For additional details, please see nursing flowsheet. COMPLICATIONS: None. ESTIMATED BLOOD LOSS: <5 ml SPECIMENS: None FLUOROSCOPY TIME: 1.2 min PROCEDURE NOTE: The procedure, risks, benefits, and alternatives were carefully explained to patient, and written informed consent was obtained. The patient was placed supine on the fluoroscopy table. A timeout was performed. The right neck and chest was prepped and draped in usual sterile fashion. Local anesthesia was administered to the access site with lidocaine. Under ultrasound guidance, the right internal jugular vein was accessed with a 5 Fr micropuncture set. A 0.035 in wire was advanced to the IVC. The tract was then serially dilated. Over the wire, a 12 La[place] 20 cm non-tunneled, dual-lumen hemodialysis catheter was advanced, the tip located at the cavoatrial junction. The wire was then removed. A permanent fluoroscopic image of the chest was saved to PACS. The catheter was secured to the skin with a 2-0 Ethilon suture. The catheter ports were packed with heparin per routine protocol. A dry sterile dressing was applied to the right neck. FINDINGS: 1. Patent right internal jugular vein. 2. Placement of a non-tunneled, dual-lumen hemodialysis catheter as above. 3. Catheter flushes and aspirates very well with a 10 mL syringe. No pneumothorax. IR/IR cvc insert non tunnel IMPRESSION: Placement of a non-tunneled hemodialysis catheter in the right internal jugular vein. PLAN: -The catheter may be used immediately. This procedure was performed by Tanner Penaloza PA-C, and directly supervised by Dr. Sumner.
--- NOTE | ~2023-07-17 | XR_ITS ---
EXAMINATION: XR CHEST CLINICAL INFORMATION: Missed dialysis, fever. COMPARISON: Chest radiograph 03/12/2023. TECHNIQUE: AP view of the chest was obtained. FINDINGS: Dual-lumen left IJ dialysis catheter with the tip projecting at the level of the right atrium. Midline sternotomy wires. Aortic valve replacement. Stable prominence of the cardiomediastinal silhouette. Worsening pulmonary aeration with diffuse interstitial thickening and multifocal hazy opacities. No significant pleural effusion. No pneumothorax. No acute osseous findings. XR/XR chest 1V IMPRESSION: Findings suggesting pulmonary edema with equivocal superimposed infectious/inflammatory process. Recommend clinical correlation for volume overload and pneumonia.
--- NOTE | ~2023-07-17 | XR_ITS ---
EXAMINATION: XR CHEST CLINICAL INFORMATION: Shortness of breath. Concern for aspiration. COMPARISON: 07/17/2023. TECHNIQUE: Frontal view of the chest was obtained. FINDINGS: The lung volumes are low. The cardiomediastinal silhouette is stable. There has been a previous median sternotomy. There is a right lung base opacity with elevation of the right hemidiaphragm. The bony structures and soft tissues are unremarkable. XR/XR chest 1V IMPRESSION: Low lung volumes. Right lung base opacity with elevation of the right hemidiaphragm possibly atelectasis and/or infiltrate.
--- NOTE | ~2023-07-17 | IR_ITS ---
PROCEDURE: IR INSERTION OF TUNNEL CATHETER CLINICAL INFORMATION: End-stage renal disease COMPARISON: None available. TECHNIQUE: All elements of maximal sterile barrier technique followed including use of cap, mask, sterile gown, sterile gloves, a sterile full body drape and hand hygiene. Also followed skin preparation with 2% chlorhexidine for cutaneous antisepsis, and sterile ultrasound preparation with sterile gel and probe cover when applicable. FINDINGS: Under ultrasound guidance a micropuncture needle was placed into the right internal jugular vein. An .035 guidewire was advanced into the right atrium. A peel-away sheath was placed. A 23 cm in length 14.5 Serbian permacatheter was tunneled beneath the skin surface and subsequently through the peel-away sheath into the midportion of the right atrium. Both ports were flushed with heparinized saline. The temporary line was then removed and manual pressure held for 5 minutes. IR/IR us guide venous access IMPRESSION: Placement of a 23 cm 14.5 Serbian permacatheter via the right internal jugular approach
[2023-07-17 22:09] VITALS: BP 125/64; BP 184/58; PULSE 116; PULSE 120; RESP 18; TEMP 38.1; O2SAT 94; O2SAT 96; BMI 35.1
[2023-07-17 22:41] LABS: MANUAL DIFF FLAG NO
[2023-07-17 22:42] LABS: Basophils Absolute Auto 0.1 X10*3/uL (0.0-0.2); Basophils Percent Auto 0.5 % (0-2); Eosinophils Absolute Auto 0.1 X10*3/uL (0.0-0.4); Eosinophils Percent Auto 0.8 % (0-4); Hematocrit 30.6 % (42.0-52.0); Hemoglobin 10.3 g/dl (14.0-18.0); Imm Gran Abs Auto 0.07 X10*3/uL (0.00-0.03); Imm Gran Pct Auto 0.6 % (0.0-0.4); Lymphocytes Absolute Auto 0.4 X10*3/uL (1.2-4.9); Lymphocytes Percent Auto 3.2 % (20-40); Mean Corpuscular HGB Conc 33.7 g/dl (31.0-36.0); Mean Corpuscular Hemoglobin 32.1 pg (27.0-33.0); Mean Corpuscular Volume 95.3 fL (80.0-98.0); Mean Platelet Volume 9.3 fL (9.4-12.4); Monocytes Absolute Auto 0.9 X10*3/uL (0.1-1.2); Monocytes Percent Auto 7.9 % (2-11); Neutrophils Absolute Auto 10.4 x10*3/uL (2.0-8.3); Platelet Count 280 X10*3/uL (160-400); Red Blood Count 3.21 X10*6/uL (4.60-5.80); Red Cell Distribution Width 14.4 % (11.0-16.0)
[2023-07-17 22:55] LABS: Lactic Acid 0.9 mmol/L (0.5-2.0)
--- NOTE | 2023-07-17 23:02 | ED_ITS ---
HPI - General Adult General Chief complaint: General Medical Stated complaint: MISSED DIALYSIS Time Seen by Provider: 07/17/23 22:28 Source: patient and EMS Mode of arrival: EMS Limitations: no limitations History of Present Illness HPI narrative: 67-year-old male end-stage renal disease on dialysis M/W/F missed his dialysis on Wednesday schedule to have dialysis tomorrow due to holidays, the patient came in with generalized malaise, subjective fever and chills, no sick contacts. No headache, no photophobia, no coughing, no abdominal pain, no vomiting, no diarrhea, still makes urine no dysuria or frequency urination. Related Data Home Medications Medication Instructions Recorded Confirmed levothyroxine 75 mcg tablet 75 mcg PO DAILY@0600 06/27/20 04/08/23 atorvastatin 40 mg tablet 40 mg PO DAILY 02/10/22 04/08/23 sertraline 25 mg tablet 1 tab PO DAILY 10/03/22 04/08/23 calcium carbonate 400 mg calcium 400 mg PO TID 02/16/23 04/08/23 (1,000 mg) chewable tablet (Ultra Strength Antacid) ergocalciferol (vitamin D2) 1,250 1,250 mcg PO FR@0900 02/16/23 04/08/23 mcg (50,000 unit) capsule losartan 50 mg tablet 50 mg PO DAILY 02/16/23 04/08/23 sevelamer carbonate 800 mg tablet 1,600 mg PO TID 02/16/23 04/08/23 torsemide 20 mg tablet 40 mg PO BID@0900,1400 02/16/23 04/08/23 Previous Rx's Medication Instructions Recorded cefazolin 2 gram/50 mL in dextrose 2 g IV MoWeFr@1800 #0 ea 03/19/23 (iso-osmotic) intravenous piggyback omeprazole 40 mg capsule,delayed 40 mg PO DAILY #30 caps 03/19/23 release ondansetron 4 mg disintegrating 4 mg PO Q6-8H PRN nausea and 04/23/23 tablet vomiting #10 tabs Allergies Allergy/AdvReac Type Severity Reaction Status Date / Time Penicillins Allergy Unknown UNKWN Verified 07/24/22 09:42 Review of Systems 2 Review of Systems: All other systems are reviewed and are negative Constitutional: Reports as per HPI and Reports no additional constitutional complaints Eyes: Reports as per HPI and Reports no additional eye complaints Reports system reviewed and no additional complaints, except as documented Cardiovascular: Reports as per HPI and Reports no additional cardiovascular complaints Respiratory: Reports as per HPI and Reports no additional respiratory complaints Gastrointestinal: Reports as per HPI and Reports no additional gastrointestinal complaints Genitourinary: Reports no additional female genitourinary complaints Musculoskeletal: Reports no additional musculoskeletal complaints Skin/Breast: Reports system reviewed and no additional complaints, except as docu Psychiatric: Reports no additional psychiatric complaints Endocrine: Reports no additional endocrine complaints Hematologic/Lymphatic: Reports no additional hematologic/lymphatic complaints Allergic/Immunologic: Reports no additional allergic/immunologic complaints Reports system reviewed and no additional complaints, except as documented and Reports Abnormal speech present [facility] Past Medical History Medical History Staphylococcal pneumonia Pleural effusion Anasarca associated with disorder of kidney Congestive heart failure Membranous nephrosis Aortic stenosis 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 Social History Social History Household Members: None Housing: Apartment Do you presently have visiting nurse or other home services: No Unable to assess alcohol history related to: Unknown Alcohol intake: never Comment: rings appropriately Patient Tobacco Use Status: Former Tobacco user Quit Date: 5 years ago Tobacco use type: Cigarette Years Smoked: 30 Smoked in Last 30 Days: No e-Cigarette/Vaping Use: Never Used Second Hand Smoke Exposure: No Use of substances other than those prescribed or required for medical reasons: No Advance Directives: No Advance Directives Information Provided: No Advance Directives Date on File: 05/01/20 service: No Current occupational status: unemployed and disabled Physical Exam ED Vital Signs: Vital Signs - 24 hr 07/17/23 22:09 07/18/23 00:44 Temperature 100.5 F H 98.7 F Pulse Rate 116 H 118 H Respiratory Rate 18 20 Blood Pressure 125/64 144/70 H Pulse Oximetry 96 98 Oxygen Delivery Method Room Air Room Air BMI result Body Mass Index 35.1 Vital signs have been reviewed and appear to be correct. Blood pressure elevated. Heart rate elevated Respiratory rate normal. Febrile. Oxygen saturation normal. Appearance: Alert. Oriented X3. No acute distress. Head: Normal external exam. Normocephalic. Atraumatic. No Simmons signs noted. No raccoon eyes noted Eyes: PERRLA. EOMI. Conjunctiva and sclera normal. Eyelids normal. ENT: TM's Normal. Pharynx normal. Uvula midline. Moist mucous membranes. No trismus noted. No drooling noted. No muffled voice noted. Neck: Normal inspection. Neck supple. FROM. No adenopathy. Thyroid Normal. No meningeal signs. No neck mass noted. CVS: Normal heart rate and rhythm. Heart sound normal. No murmurs noted. Pulses normal throughout. Respiratory: No respiratory distress. Painless inspiration. Breath sounds normal. No wheezes/rales/rhonchi noted. Chest nontender. No accessory muscle usage noted or decreased air movement noted. Abdomen: Soft and nontender. Bowel sounds normal in all 4 quadrants. No distention noted. No organomegaly noted. No visible injury noted. Back: No CVA tenderness. Full range of motion noted. Skin: Skin warm and dry. Normal skin color. Normal skin turgor. No rashes/lesions/lacerations noted. Extremities: No lower extremity edema. Extremities exhibit normal range of motion. Extremities nontender. Neuro: Oriented X 3. Cranial nerve exam: II-XII are grossly intact No motor deficit. No sensory deficit. Reflexes normal. Course Reevaluation(s) Reevaluation #1: 67-year-old male on dialysis came in with symptoms to suggest viral syndrome, patient is positive for COVID 19 today, O2 sat is 96% is no x-ray findings to suggest pulmonary congestion the case discussed with patient will receive dialysis tomorrow in the hospital.. Time: 01:02 Medications Administered Discontinued Medications Generic Name Dose Route Start Last Admin Trade Name Freq PRN Reason Stop Dose Admin Acetaminophen 650 mg 07/17/23 23:50 07/18/23 00:41 Acetaminophen 325 Mg Tablet PO 07/17/23 23:51 650 mg ONCE ONE Administration Medical Decision Making Differential Diagnosis Differential Diagnoses: The differential diagnosis associated with the presentation includes (Pneumonia, pneumothorax, influenza, RSV, COVID, UTI, electrolyte abnormality, fluid overload, severe anemia, pulmonary congestion.) Admission/Observation Consideration of admission/observation: Escalation of care including admission/observation considered Consult Healthcare Provider Management of the patient was discussed with: Hospitalist (Dr. Garcia.) and Wire Tester (Dr. Wilde) Lab Data [facility] Lab Attestation statement: I reviewed the patient's lab results. 07/17/23 22:20 07/17/23 22:20 Labs: Lab Results 07/17/23 07/17/23 Range/Units 22:20 22:36 WBC 12.0 H (4.8-10.8) X10*3/uL RBC 3.21 L (4.60-5.80) X10*6/uL Hgb 10.3 L (14.0-18.0) g/dl Hct 30.6 L (42.0-52.0) % MCV 95.3 (80.0-98.0) fL MCH 32.1 (27.0-33.0) pg MCHC 33.7 (31.0-36.0) g/dl RDW 14.4 (11.0-16.0) % Plt Count 280 (160-400) X10*3/uL MPV 9.3 L (9.4-12.4) fL Immature Gran % (Auto) 0.6 H (0.0-0.4) % Neut % (Auto) 87.0 H (45-73) % Lymph % (Auto) 3.2 L (20-40) % [place] % (Auto) 7.9 (2-11) % Eos % (Auto) 0.8 (0-4) % Baso % (Auto) 0.5 (0-2) % Lymph # (Auto) 0.4 L (1.2-4.9) X10*3/uL [place] # (Auto) 0.9 (0.1-1.2) X10*3/uL Eos # (Auto) 0.1 (0.0-0.4) X10*3/uL Baso # (Auto) 0.1 (0.0-0.2) X10*3/uL Abs Immat Gran (auto) 0.07 H (0.00-0.03) X10*3/uL Absolute Neuts (auto) 10.4 H (2.0-8.3) x10*3/uL Absolute Nucleated RBC 0.000 (0.0-0.012) X10*3/uL Nucleated RBC % (auto) 0.0 (0.0-0.2) /100WBC Sodium 138 (135-145) mmol/L Potassium 4.8 (3.3-5.1) mmol/L Chloride 105 (96-108) mmol/L Carbon Dioxide 17 L (22-29) mmol/L Anion Gap 21 H (12-20) BUN 88 H (9-16) mg/dL Creatinine 10.00 H* (0.5-1.4) mg/dL Estim Creat Clear Calc 9.4 Estimated GFR 5 Random Glucose 190 H (60-115) mg/dL Lactic Acid 0.9 (0.5-2.0) mmol/L Calcium 9.6 (8.4-10.2) mg/dL Total Bilirubin 0.2 (0.0-1.0) mg/dL AST 12 (5-37) U/L ALT 8 (0-40) U/L Alkaline Phosphatase 80 (39-117) U/L Total Protein 7.3 (6.5-8.0) g/dL Albumin 3.2 L (3.5-5.0) g/dL Influenza Type A (PCR) NEGATIVE (Negative) Influenza Type B (PCR) NEGATIVE (Negative) RSV RNA Qual (PCR) NEGATIVE (Negative) SARS-CoV-2 RNA (RT-PCR) POSITIVE A (Negative) Independent Interpretation I performed an independent interpretation of an: Plain X-Ray (Chest: Findings suggesting pulmonary edema with equivocal superimposed infectious/inflammatory process. Recommend clinical correlation for volume overload and pneumonia. ) Radiology Impression Discussion of test interpretation with radiology: I have reviewed the radiologist's reading. Discharge Plan Discharge Clinical Impression: COVID-19 virus infection, Pulmonary congestion Patient Disposition: Admitted As Inpatient
[2023-07-17 23:04] LABS: Alanine Aminotransferase 8 U/L (0-40); Albumin Level 3.2 g/dL (3.5-5.0); Alkaline Phosphatase 80 U/L (39-117); Anion Gap 21 (12-20); Aspartate Amino Transferase 12 U/L (5-37); Bilirubin Total 0.2 mg/dL (0.0-1.0); Blood Urea Nitrogen 88 mg/dL (9-16); Calcium 9.6 mg/dL (8.4-10.2); Carbon Dioxide 17 mmol/L (22-29); Chloride 105 mmol/L (96-108); Creatinine Clr Calc Pharmacy 9.4; Estimated Glomerular Filt Rate 5; Glucose Random 190 mg/dL (60-115); Potassium 4.8 mmol/L (3.3-5.1); Sodium 138 mmol/L (135-145); Total Protein 7.3 g/dL (6.5-8.0)
[2023-07-17 23:27] LABS: Influenza A PCR NEGATIVE (Negative); Influenza B PCR NEGATIVE (Negative); Resp Syncy Virus RNA Qual PCR NEGATIVE (Negative); SARS COV2 PCR INHOUSE POSITIVE (Negative)
[2023-07-18] VITALS (8 sets, daily range): BP systolic 105–145; BP diastolic 53–70; PULSE 95–122; RESP 20–32; TEMP 37.1–38.1; O2SAT 93–98
[2023-07-18] MEDS: Acetaminophen 325 MG TABLET 650 MG PO ×2 (00:41→14:40)
[2023-07-18] MEDS: Morphine Sulfate 2 MG/ML CARTRIDGE 1 MG IVPUSH (04:54)
--- NOTE | 2023-07-18 06:18 | PM.IMHP ---
History of Present Illness Date of Service: 07/17/23 Attending physician on admission: Kirt Garcia Chief Complaint: I have been very sick for the last 2 days Patient is a 67 year old obese white male with history of anemia, hypertension, hyperlipidemia, hypothyroidism, ESRD on hemodialysis MWF who presents to the emergency room complaining of being 'very sick' over the last couple of days. He is vague but complains of generalized malaise, subjective fevers and chills, and severe low back pain. He is currently very restless. He was feeling unwell yesterday hence the reason as to why he missed his hemodialysis yesterday. Initial work up done in the emergency room was notable for a positive COVID-19 infection and a mild leucocytosis of 12.0. Admission was requested for further care and for hemodialysis. 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 Pertinent family history: Reviewed with the patient and not pertinent to current admission Surgical History H/O aortic valve replacement Social History Household Members: None Housing: Apartment Do you presently have visiting nurse or other home services: No Unable to assess alcohol history related to: Unknown Alcohol intake: never Comment: rings appropriately Patient Tobacco Use Status: Former Tobacco user Quit Date: 5 years ago Tobacco use type: Cigarette Years Smoked: 30 Smoked in Last 30 Days: No e-Cigarette/Vaping Use: Never Used Second Hand Smoke Exposure: No Use of substances other than those prescribed or required for medical reasons: No Advance Directives: No Advance Directives Information Provided: No Advance Directives Date on File: 05/01/20 service: No Current occupational status: unemployed and disabled Meds Allergies Allergy/AdvReac Type Severity Reaction Status Date / Time Penicillins Allergy Unknown UNKWN Verified 07/24/22 09:42 Home Medications Medication Instructions Recorded Confirmed Last Taken Type levothyroxine 75 mcg tablet 75 mcg PO DAILY@0600 06/27/20 04/08/23 2 Days Ago History ~02/14/23 atorvastatin 40 mg tablet 40 mg PO DAILY 02/10/22 04/08/23 2 Days Ago History ~02/14/23 sertraline 25 mg tablet 1 tab PO DAILY 10/03/22 04/08/23 2 Days Ago History ~02/14/23 calcium carbonate 400 mg calcium 400 mg PO TID 02/16/23 04/08/23 2 Days Ago History (1,000 mg) chewable tablet (Ultra ~02/14/23 Strength Antacid) ergocalciferol (vitamin D2) 1,250 1,250 mcg PO FR@0900 02/16/23 04/08/23 2 Days Ago History mcg (50,000 unit) capsule ~02/14/23 losartan 50 mg tablet 50 mg PO DAILY 02/16/23 04/08/23 2 Days Ago History ~02/14/23 sevelamer carbonate 800 mg tablet 1,600 mg PO TID 02/16/23 04/08/23 2 Days Ago History ~02/14/23 torsemide 20 mg tablet 40 mg PO BID@0900,1400 02/16/23 04/08/23 2 Days Ago History ~02/14/23 Physical Exam Vital Signs and Narrative: Vital Signs: Last Vital Signs Temp 98.7 F 07/18/23 00:44 Pulse 118 H 07/18/23 00:44 Resp 20 07/18/23 00:44 BP 144/70 H 07/18/23 00:44 Pulse Ox 98 07/18/23 00:44 O2 Del Method Room Air 07/18/23 00:44 BMI result Body Mass Index 35.1 General: Obese WM in bed. Awake and alert but very restless. In no apparent distress Eyes: No pallor or jaundice. PERRLA, EOMI HENT: Moist oral mucus membranes. No oropharyngeal lesions. Neck: Supple. No cervical adenopathy. No JVD Cardiovascular: Regular rate and rhythm. Normal heart sounds. No murmurs, rubs or gallops. No JVD. No peripheral edema. Respiratory: Normal respiratory effort with no accessory muscle use. CTAB. Gastrointestinal: Abdomen is soft, non-tender, non-distended. NABS. No hepatosplenomegaly Extremities: No edema. No calf tenderness. Good peripheral pulses Skin: Warm/Dry. No rashes. No mottling. Capillary refill is < 2 seconds Neurological: AAOx4. Intact speech & cognition. Normal gait & balance. CN II - XII grossly intact but not individually tested. No motor or sensory deficits Hematologic: No bleeding. No ecchymosis. No swollen or tender lymph nodes. Psychiatric: Cooperative. Anxious mood. Results Labs 07/17/23 22:20 07/17/23 22:20 Labs: Laboratory Results - last 24 hr 07/17/23 07/17/23 22:20 22:36 MCV 95.3 MCH 32.1 MCHC 33.7 RDW 14.4 Plt Count 280 MPV 9.3 L Immature Gran % (Auto) 0.6 H Neut % (Auto) 87.0 H Lymph % (Auto) 3.2 L [place] % (Auto) 7.9 Eos % (Auto) 0.8 Baso % (Auto) 0.5 Lymph # (Auto) 0.4 L [place] # (Auto) 0.9 Eos # (Auto) 0.1 Baso # (Auto) 0.1 Abs Immat Gran (auto) 0.07 H Absolute Neuts (auto) 10.4 H Absolute Nucleated RBC 0.000 Nucleated RBC % (auto) 0.0 Anion Gap 21 H Estim Creat Clear Calc 9.4 Estimated GFR 5 Random Glucose 190 H Lactic Acid 0.9 Calcium 9.6 Total Bilirubin 0.2 AST 12 ALT 8 Alkaline Phosphatase 80 Total Protein 7.3 Albumin 3.2 L Influenza Type A (PCR) NEGATIVE Influenza Type B (PCR) NEGATIVE RSV RNA Qual (PCR) NEGATIVE SARS-CoV-2 RNA (RT-PCR) POSITIVE A COVID-19 PCR => Positive Imaging Radiologist's Impressions: Impressions Chest X-Ray 07/18/23 00:04 IMPRESSION: Findings suggesting pulmonary edema with equivocal superimposed infectious/inflammatory process. Recommend clinical correlation for volume overload and pneumonia. Assessment and Plan (1) Sepsis due to COVID-19: Status: Acute (2) ESRD on hemodialysis: Status: Acute (3) Obesity (BMI 35.0-39.9 without comorbidity): Status: Acute Plan 67 year old obese white male with history of anemia, hypertension, hyperlipidemia, hypothyroidism, ESRD on hemodialysis MWF here with 1. Sepsis due to COVID-19 infection - his BP is stable - normal lactic acid - monitor 2. COVID-19 infection - manage symptomatically - may benefit from Remdesivir 3. ESRD on Hemodialysis (MWF) - Missed his dialysis session on Wednesday (he is on a MWF schedule) - will need HD while admitted - resume Sevelamer TID with meals - consult renal team 4. Hypothyroidism - resume Levothyroxine 5. Hypertension - resume Losartan 6. Hyperlipidemia - resume Atorvastatin DVT: SC Lovenox CODE STATUS: Full code Admission for at least 2 midnights for management of Sepsis due to ESRD and also requires hemodialysis Total time managing care of this patient today: 75 minutes. Quality Stroke Does the patient have a stroke diagnosis?: No VTE Prior VTE?: No VTE Risk Level:: Medical - moderate - high VTE Device Contraindication: Treatment Not Tolerated VTE Drug Contraindication: N/A - Med Ordered
--- NOTE | 2023-07-18 07:22 | PC.NURSE ---
Assumed care of pt at this time; call acharya within reach. Stretcher locked and at lowest position for safety. Care ongoing.
[2023-07-18] MEDS: Sertraline HCL 25 MG TABLET PO (07:43)
[2023-07-18] MEDS: Omeprazole 20 MG CAPSULE.DR PO (07:43)
[2023-07-18] MEDS: Levothyroxine Sodium 75 MCG TABLET PO (07:43)
[2023-07-18] MEDS: Docusate Sodium 100 MG CAPSULE PO ×2 (07:43→19:48)
--- NOTE | 2023-07-18 09:01 | PM.EVENT ---
Event Note Date of Service: 07/18/23 Event Note: Chart reviewed Pt Needs HD I have arranged HD HD nurses notified - Orders given Time Spent With Patient Time: Total time managing care of this patient today ____ minutes.
--- NOTE | 2023-07-18 09:21 | PC.NURSE ---
Karie called and given update on patient being admitted to hospital.
[2023-07-18 09:47] LABS: Appearance Urine Clear; Color Urine Yellow; Glucose Urine UA >=1000 mg/dL (Negative); Leukocyte Esterase Urine Negative (Negative); Nitrite Urine Negative (Negative); Specific Gravity - Urine 1.025 (1.005-1.025); UMIC TRIGGER UACC YES; Urine Blood Moderate (2+) (Negative); Urine Ketones Trace mg/dL (Negative); Urine Protein >=1000 (4+) mg/dL (Neg-Trace)
[2023-07-18 10:30] LABS: Bacteria Urine 1+ (None Seen); Other Crystals Urine Present; Squamous Epithelial Cell Urine 0-2 /HPF (0-2); WBC Urine 0-5 /HPF (0-5)
--- NOTE | 2023-07-18 12:17 | PM.EVENT ---
Event Note Date of Service: 07/18/23 Event Note: Seen and evaluated this morning febrile and feeling fatigue blood culture set growing GPC to repeat blood cultures start Vancomycin To do dialysis Wean O2 down as tolerated Time Spent With Patient Time: Total time managing care of this patient today ____ minutes.
--- NOTE | 2023-07-18 12:21 | PC.NURSE ---
assumed care of pt at 1100, pt in dialysis, critical lab of gram + cocci blood culture received. provider notified. 2nd set of cultures never obtained last night, per provider plan to recollect a new set of cultures today.
--- NOTE | 2023-07-18 13:10 | PHA.MEDREC ---
Pharmacy Consult ? Medication Reconciliation Pharmacy has completed the medication reconciliation. Spoke to patient to confirm meds.
--- NOTE | 2023-07-18 13:30 | PHA.PROG ---
Admission Date/Time: July 18, 2023 01:54 Indication: BACTEREMIA Weight in k.4 kg Adjusted body weight in Kg: [place] body weight in Kg: Obesity Dosing Indication % IBW: Serum Creatinine - Last 168 Hours 07/17/23 22:20 Creatinine 10.00 H* Estimated CrCl and GFR - Last 168 Hours 07/17/23 22:20 Estim Creat Clear Calc 9.4 Estimated GFR 5 Vancomycin Loading Dose: 2000 MG X 1 Current Vancomycin Dosing Regimen: UNKNOWN - DOSE BASED ON LEVEL Vancomycin Monitoring using AUC goal of 400 - 600 range with trough as surrogate marker: Date and Time for next Vancomycin Level to be drawn: Pharmacist Comments on Vancomycin Plan: PATIENT RECEIVED DIALYSIS ON 07/18/23. FOLLOW UP WHEN NEXT DIALYSIS IS AND ENTER LEVEL Vancomycin dosing will take advantage of Mult[employer] as a clinical decision support tool that uses Bayesian modeling to calculate individual patient's pharmacokinetic parameters and forecast the patient's drug concentration time course with the target goal AUC 24 range of 400 - 600 mg/L/hr.
[2023-07-18] MEDS: vancomycin/NS 2,000 MG/500 ML PLAST..BAG 250 MG IV (14:40)
--- NOTE | 2023-07-18 14:40 | MHC.CM.PN ---
IMM DELIVERED. PATIENT FATIGUED, SO INTAKE COMPLETED WITH MOM, MATTY [phone]. PER MATTY - PATIENT LIVES AT HOME ALONE. HAS HOME MAKING SERVICES 2X/WK. INDEPENDENT W/ ADL'S . PRIMARILY USES WALKER FOR AMBULATION, W/C PRN. HD AT [facility] M/W/F 11AM CHAIR TIME, TAKES A VAN. MOM & DAD PROVIDE TRANSPORTATION FOR OTHER ERRANDS/APPTS. PCP:CHACHO HOFFMANN HCP: CM OFFERED ASSISTANCE, PATIENT WOULD LIKE TO COMPLETE WHEN MORE AWAKE. DP: PATIENT IS VERY WEAK, WILL LIKELY REQUIRE PT EVAL. HAS BEEN TO [facility] IN THE PAST. CM WILL CONTINUE TO FOLLOW.
[2023-07-18] MEDS: 0.9 % Sodium Chloride Flush 3 ML SYRINGE IVFLUSH ×3 (14:41→19:48)
--- NOTE | 2023-07-18 15:45 | PC.NURSE ---
Addendum entered by Randy Morales RN 07/18/23 18:40: 1548 critical lactic of 2.8. Dr. Hill notified; provider to place bolus. This RN started bolus per Sepsis protocol. Blood pressures documented in worksheet Original Note: Provider called to bedside at this time. Pt had increased work of breathing, respirations greater than 30 and using accessory muscles to breath. Pt reporting not feeling right . Vitals 124/58, pulse 113, oral temp 100.2, 95% on room air. Per provider pt was placed on 2 liters via nasal cannula, Tylenol and Vancomycin administered per MAR, lactic and other lab work ordered at this time.
[2023-07-18] MEDS: 0.9 % Sodium Chloride 1,000 ML 999 ML IV (15:50)
[2023-07-18 15:51] LABS: Lactic Acid 2.8 mmol/L (0.5-2.0)
[2023-07-18] MEDS: Sevelamer Carbonate Tablet 800 MG TABLET 1600 MG PO (16:14)
[2023-07-18] MEDS: Heparin Sodium,Porcine 5,000 UNIT/ML VIAL 5000 UNIT SUBCUT (16:15)
--- NOTE | 2023-07-18 16:22 | PC.NURSE ---
ns bolus started@ 1545 [id number] mls per hr per Md Leach
[2023-07-18 16:58] LABS: Reflex Lactate? Lactic Acid Added
[2023-07-18 17:59] LABS: ~Lactic Acid-LAB USE ONLY 2.2 mmol/L (0.5-2.0)
[2023-07-18 19:23] LABS: Reflex Lactate? 2 Y
[2023-07-18] MEDS: Calcium Carbonate 750 MG TAB.CHEW PO (19:48)
[2023-07-18 20:04] LABS: ~Lactic Acid-LAB USE ONLY 1.7 mmol/L (0.5-2.0)
[2023-07-19] MEDS: Heparin Sodium,Porcine 5,000 UNIT/ML VIAL 5000 UNIT SUBCUT ×2 (01:30→17:06)
[2023-07-19] MEDS: Acetaminophen 325 MG TABLET 650 MG PO ×2 (01:30→13:20)
[2023-07-19 03:33] VITALS: BP 92/52; PULSE 100; RESP 20; TEMP 37.3; O2SAT 94
[2023-07-19] MEDS: Levothyroxine Sodium 75 MCG TABLET PO (05:34)
[2023-07-19] MEDS: Omeprazole 40 MG CAPSULE.DR PO (05:36)
[2023-07-19 07:15] LABS: Hematocrit 27.3 % (42.0-52.0); Mean Corpuscular Hemoglobin 31.4 pg (27.0-33.0); Mean Corpuscular Volume 95.1 fL (80.0-98.0); Mean Platelet Volume 9.8 fL (9.4-12.4); Platelet Count 176 X10*3/uL (160-400); Red Blood Count 2.87 X10*6/uL (4.60-5.80); Red Cell Distribution Width 14.8 % (11.0-16.0); White Blood Count 10.9 X10*3/uL (4.8-10.8)
[2023-07-19 07:51] LABS: Anion Gap 22 (12-20); Blood Urea Nitrogen 61 mg/dL (9-16); Carbon Dioxide 21 mmol/L (22-29); Chloride 97 mmol/L (96-108); Creatinine Clr Calc Pharmacy 11.3; Estimated Glomerular Filt Rate 6; Glucose Random 168 mg/dL (60-115); Potassium 4.6 mmol/L (3.3-5.1); Sodium 135 mmol/L (135-145)
[2023-07-19 08:00] VITALS: BP 105/53; PULSE 98; RESP 20; TEMP 37.1; O2SAT 95
[2023-07-19] MEDS: 0.9 % Sodium Chloride Flush 3 ML SYRINGE IVFLUSH ×2 (09:50→17:06)
[2023-07-19] MEDS: Sertraline HCL 25 MG TABLET PO (09:50)
[2023-07-19] MEDS: Calcium Carbonate 750 MG TAB.CHEW PO ×3 (09:50→22:29)
--- NOTE | 2023-07-19 10:42 | P.PNIM_ITS ---
Subjective Subjective Date of Service: 07/19/23 Interval History: Seen and evaluated this morning More comfortable and less lethargic Blood cultures positive for GPC no other overnight events Review of Systems Review of Systems: Yes all other systems are reviewed and are negative Physical Exam 2 Vital Signs: Vital Signs: Last Vital Signs Temp 98.7 F 07/19/23 08:00 Pulse 98 07/19/23 08:00 Resp 20 07/19/23 08:00 BP 105/53 L 07/19/23 08:00 Pulse Ox 95 07/19/23 08:00 O2 Del Method Nasal Cannula 07/19/23 08:00 O2 Flow Rate 2 07/19/23 08:00 BMI result Body Mass Index 35.1 Const: Other: Constitutional : Awake, interactive, not in distress Neck : Normal inspection, Supple Cardiovascular : RRR, no JVP, no lower extremity edema Respiratory : good bilateral air entry, no crackles, wheezes or rhonchi Gastrointestinal: soft, lax, Normal bowel sounds, Non tender Skin : Warm, Dry, the skin around his permacath scally and dry with no erythema or drainage. Neurological : Alert & oriented x3, No focal deficit Objective Data Active Medications Acetaminophen (Acetaminophen 325 Mg Tablet) 650 mg PO Q6H PRN PRN Reason: Pain, Mild (Pain Scale 1-3) Last Admin: 07/19/23 01:30 Dose: 650 mg Documented By: DELGADO Al Hydroxide/Mg Hydroxide (Magnesium Hydrox/Alum Hydrox 30 Ml Oral.Susp) 30 ml PO Q4H PRN PRN Reason: Heartburn/Nausea Calcium Carbonate (Calcium Carbonate 750 Mg Tab.Chew) 750 mg PO TID [facility] Last Admin: 07/19/23 09:50 Dose: 750 mg Documented By: BLANCHE Docusate Sodium (Docusate Sodium 100 Mg Capsule) 100 mg PO BID [facility] Last Admin: 07/19/23 09:52 Dose: Not Given Documented By: BLANCHE Non-Admin Reason: Patient Refused Ergocalciferol (Ergocalciferol (Vitamin D2) 1,250 Mcg Capsule) 1,250 mcg PO FR@0900 [facility] Heparin Sodium (Porcine) (Heparin Sodium,Porcine 5,000 Unit/Ml Vial) 5,000 unit SUBCUT Q8H [facility] Last Admin: 07/19/23 09:53 Dose: Not Given Documented By: BLANCHE Non-Admin Reason: Patient Refused Vancomycin HCl 500 mg/ Sodium (Chloride) 110 mls @ 110 mls/hr IV Q48H [facility] Levothyroxine Sodium (Levothyroxine Sodium 75 Mcg Tablet) 75 mcg PO DAILY@0600 [facility] Last Admin: 07/19/23 05:34 Dose: 75 mcg Documented By: DELGADO Losartan Potassium (Losartan Potassium 50 Mg Tablet) 50 mg PO DAILY [facility]; Protocol Last Admin: 07/19/23 09:51 Dose: Not Given Documented By: BLANCHE Non-Admin Reason: Decreased Blood Pressure Melatonin (Melatonin 3 Mg Tablet) 6 mg PO BEDTIME PRN PRN Reason: Insomnia Morphine Sulfate (Morphine Sulfate 4 Mg/Ml Cartridge) 2 mg IVPUSH Q4H PRN; Protocol PRN Reason: Pain, Severe (Pain Scale 7-10) Omeprazole (Omeprazole 40 Mg Capsule.Dr) 40 mg PO DAILY@0630 [facility] Last Admin: 07/19/23 05:36 Dose: 40 mg Documented By: DELGADO Ondansetron HCl (Ondansetron Hcl 4 Mg/2 Ml Vial) 4 mg IVPUSH Q8H PRN PRN Reason: Nausea and Vomiting Oxycodone HCl (Oxycodone Hcl Immed Release 5 Mg Tablet) 5 mg PO Q6H PRN PRN Reason: Pain, Moderate(Pain Scale 4-6) Pharmacy Consult (Consult Rx Vancomycin Dosing) 1 each MISCELLANE DAILY PRN PRN Reason: Consult order Sertraline HCl (Sertraline Hcl 25 Mg Tablet) 25 mg PO DAILY [facility] Last Admin: 07/19/23 09:50 Dose: 25 mg Documented By: BLANCHE Sevelamer Carbonate (Sevelamer Carbonate Tablet 800 Mg Tablet) 1,600 mg PO TIDWM [facility] Last Admin: 07/19/23 09:57 Dose: Not Given Documented By: BLANCHE Non-Admin Reason: patient unable to take pill Sodium Chloride (0.9 % Sodium Chloride Flush 3 Ml Syringe) 3 ml IVFLUSH [facility] Last Admin: 07/19/23 09:50 Dose: 3 ml Documented By: BLANCHE Sodium Chloride (0.9 % Sodium Chloride Flush 3 Ml Syringe) 3 ml IVFLUSH [facility] Last Admin: 07/19/23 09:50 Dose: Not Given Documented By: BLANCHE Non-Admin Reason: Duplicate Order Torsemide (Torsemide 20 Mg Tablet) 40 mg PO BID@0900,1400 [facility]; Protocol Last Admin: 07/19/23 09:51 Dose: Not Given Documented By: BLANCHE Non-Admin Reason: Decreased Blood Pressure Labs 07/19/23 07:02 07/19/23 07:02 Labs: Laboratory Results - last 24 hr 07/18/23 07/18/23 07/18/23 14:53 17:13 19:35 MCV MCH MCHC RDW Plt Count MPV Absolute Nucleated RBC Nucleated RBC % (auto) Anion Gap Estim Creat Clear Calc Estimated GFR Random Glucose Lactic Acid 2.8 H* Lactic Acid F/U @ 2Hr 2.2 H* Lactic Acid F/U @ 4Hr 1.7 Calcium 07/19/23 07:02 MCV 95.1 MCH 31.4 MCHC 33.0 RDW 14.8 Plt Count 176 D MPV 9.8 Absolute Nucleated RBC 0.000 Nucleated RBC % (auto) 0.0 Anion Gap 22 H Estim Creat Clear Calc 11.3 Estimated GFR 6 Random Glucose 168 H Lactic Acid Lactic Acid F/U @ 2Hr Lactic Acid F/U @ 4Hr Calcium 8.0 L D Microbiology Microbiology Results: Microbiology 07/17/23 22:36 Blood Culture - Preliminary Blood - Venous Staphylococcus aureus 07/18/23 14:34 Blood Culture - Preliminary Blood - Venous Prelim: GPC Gram Stain only 07/18/23 14:33 Blood Culture - Preliminary Blood - Venous Prelim: GPC Gram Stain only 07/17/23 22:36 Blood Culture - Final Blood - Venous Assessment and Plan (1) COVID-19 virus infection: Status: Acute (2) ESRD on hemodialysis: Status: Acute (3) Bacteremia due to Gram-positive bacteria: Status: Acute Plan 67 year old obese white male with history of anemia, hypertension, hyperlipidemia, hypothyroidism, ESRD on hemodialysis MWF here with 1. Sepsis due to GPC bacteremia Pending cultures On Vancomycin Site of PErmacath likely source repeat blood cultures Get ID eval follow Vanco trough 2. COVID-19 infection manage symptomatically No hypoxia, no Remdesivir 3. ESRD on Hemodialysis (MWF) MWF schedule resume Sevelamer TID with meals Continue Torsemide Nephrology following 4. Hypothyroidism resume Levothyroxine 5. Hypertension Hold Losartan for hypotension 6. Hyperlipidemia resume Atorvastatin DVT: SC Lovenox CODE STATUS: Full code Admission inpatient overnight for management of bacteremia pending final blood culture and product management consultant opinion Quality Stroke Does the patient have a stroke diagnosis?: No VTE Prior VTE?: No VTE Risk Level:: Medical - moderate - high VTE Device Contraindication: Treatment Not Tolerated VTE Drug Contraindication: N/A - Med Ordered
[2023-07-19 13:17] VITALS: BP 111/57; PULSE 112; RESP 20; TEMP 37.7; O2SAT 95
[2023-07-19 13:22] LABS: Glucose, Whole Blood 156 mg/dL (60-115)
[2023-07-19 15:13] VITALS: BP 105/55; PULSE 102; RESP 17; TEMP 37.3; O2SAT 94
[2023-07-19 16:08] LABS: Vancomycin Random 25.9 mcg/mL (15-20)
--- NOTE | 2023-07-19 16:11 | PM.EVENT ---
Event Note Date of Service: 07/19/23 Event Note: Pt seen and examined Full consult dictated ESRD on HD [place] sepsis Pt has an AVF in the L arm Plan Pt hadHD yesterday and today HDagain in AM IR to remove PC in AM and send Tip for culture Vanco Post HD based on levels Will try to use AVF in AM - if working he does not need another PC. If we can not cannulate needs PC after Blood c/s clears ie 48 hrs after PCremoval Thx Dr. Russo Time Spent With Patient Time: Total time managing care of this patient today ____ minutes.
[2023-07-19] MEDS: oxyCODONE HCl Immed Release 5 MG TABLET PO (18:18)
[2023-07-19 20:00] VITALS: BP 115/55; PULSE 102; RESP 17; TEMP 37.3; O2SAT 93
[2023-07-19 22:33] VITALS: RESP 18
[2023-07-19] MEDS: Morphine Sulfate 4 MG/ML CARTRIDGE 2 MG IVPUSH (22:33)
[2023-07-19] MEDS: Melatonin 3 MG TABLET 6 MG PO (22:47)
[2023-07-20] VITALS (7 sets, daily range): BP systolic 119–125; BP diastolic 56–78; PULSE 82–98; RESP 13–20; TEMP 36.4–37.7; O2SAT 93–96
[2023-07-20] MEDS: Heparin Sodium,Porcine 5,000 UNIT/ML VIAL 5000 UNIT SUBCUT ×3 (01:02→18:07)
[2023-07-20] MEDS: 0.9 % Sodium Chloride Flush 3 ML SYRINGE IVFLUSH ×5 (01:02→21:15)
[2023-07-20] MEDS: Levothyroxine Sodium 75 MCG TABLET PO (05:38)
[2023-07-20] MEDS: Omeprazole 40 MG CAPSULE.DR PO (05:38)
[2023-07-20] MEDS: HYDROmorphone HCl 0.5 MG/0.5 ML SYRINGE IVPUSH (05:58)
[2023-07-20 07:50] LABS: Anion Gap 20 (12-20); Blood Urea Nitrogen 41 mg/dL (9-16); Calcium 8.2 mg/dL (8.4-10.2); Carbon Dioxide 28 mmol/L (22-29); Chloride 94 mmol/L (96-108); Creatinine Clr Calc Pharmacy 15.7; Estimated Glomerular Filt Rate 9; Glucose Random 149 mg/dL (60-115); Potassium 3.8 mmol/L (3.3-5.1); Sodium 138 mmol/L (135-145)
--- NOTE | 2023-07-20 09:13 | P.PNIM_ITS ---
Subjective Subjective Date of Service: 07/20/23 Interval History: Seen and evaluated this morning Having dialysis session, to try his fistula More comfortable and less lethargic Blood cultures positive for MSSA no other overnight events Physical Exam 2 Vital Signs: Vital Signs: Last Vital Signs Temp 98.2 F 07/20/23 03:33 Pulse 82 07/20/23 03:33 Resp 20 07/20/23 05:58 BP 124/78 07/20/23 03:33 Pulse Ox 96 07/20/23 03:33 O2 Del Method Nasal Cannula 07/20/23 03:33 O2 Flow Rate 2 07/20/23 03:33 BMI result Body Mass Index 35.1 Const: Other: Constitutional : Awake, interactive, not in distress Neck : Normal inspection, Supple Cardiovascular : RRR, no JVP, no lower extremity edema Respiratory : good bilateral air entry, no crackles, wheezes or rhonchi Gastrointestinal: soft, lax, Normal bowel sounds, Non tender Skin : Warm, Dry, the skin around his permacath scally and dry with no tenderness or drainage Neurological : Alert & oriented x3, No focal deficit Objective Data Active Medications Acetaminophen (Acetaminophen 325 Mg Tablet) 650 mg PO Q6H PRN PRN Reason: Pain, Mild (Pain Scale 1-3) Last Admin: 07/19/23 13:20 Dose: 650 mg Documented By: BLANCHE Al Hydroxide/Mg Hydroxide (Magnesium Hydrox/Alum Hydrox 30 Ml Oral.Susp) 30 ml PO Q4H PRN PRN Reason: Heartburn/Nausea Calcium Carbonate (Calcium Carbonate 750 Mg Tab.Chew) 750 mg PO TID [facility] Last Admin: 07/19/23 22:29 Dose: 750 mg Documented By: GARY Docusate Sodium (Docusate Sodium 100 Mg Capsule) 100 mg PO BID [facility] Last Admin: 07/19/23 22:52 Dose: Not Given Documented By: GARY Non-Admin Reason: Patient Refused Ergocalciferol (Ergocalciferol (Vitamin D2) 1,250 Mcg Capsule) 1,250 mcg PO FR@0900 [facility] Heparin Sodium (Porcine) (Heparin Sodium,Porcine 5,000 Unit/Ml Vial) 5,000 unit SUBCUT Q8H [facility] Last Admin: 07/20/23 01:02 Dose: 5,000 unit Documented By: GARY Hydromorphone HCl (Hydromorphone Hcl 0.5 Mg/0.5 Ml Syringe) 0.5 mg IVPUSH Q4H PRN; Protocol PRN Reason: Pain, Severe (Pain Scale 7-10) Last Admin: 07/20/23 05:58 Dose: 0.5 mg Documented By: GARY Vancomycin HCl 500 mg/ Sodium (Chloride) 110 mls @ 110 mls/hr IV Q48H [facility] Levothyroxine Sodium (Levothyroxine Sodium 75 Mcg Tablet) 75 mcg PO DAILY@0600 [facility] Last Admin: 07/20/23 05:38 Dose: 75 mcg Documented By: GARY Losartan Potassium (Losartan Potassium 50 Mg Tablet) 50 mg PO DAILY [facility]; Protocol Last Admin: 07/19/23 09:51 Dose: Not Given Documented By: BLANCHE Non-Admin Reason: Decreased Blood Pressure Melatonin (Melatonin 3 Mg Tablet) 6 mg PO BEDTIME PRN PRN Reason: Insomnia Last Admin: 07/19/23 22:47 Dose: 6 mg Documented By: GARY Omeprazole (Omeprazole 40 Mg Capsule.Dr) 40 mg PO DAILY@0630 [facility] Last Admin: 07/20/23 05:38 Dose: 40 mg Documented By: GARY Ondansetron HCl (Ondansetron Hcl 4 Mg/2 Ml Vial) 4 mg IVPUSH Q8H PRN PRN Reason: Nausea and Vomiting Oxycodone HCl (Oxycodone Hcl Immed Release 5 Mg Tablet) 5 mg PO Q6H PRN PRN Reason: Pain, Moderate(Pain Scale 4-6) Last Admin: 07/19/23 18:18 Dose: 5 mg Documented By: BLANCHE Pharmacy Consult (Consult Rx Vancomycin Dosing) 1 each MISCELLANE DAILY PRN PRN Reason: Consult order Sertraline HCl (Sertraline Hcl 25 Mg Tablet) 25 mg PO DAILY [facility] Last Admin: 07/19/23 09:50 Dose: 25 mg Documented By: BLANCHE Sevelamer Carbonate (Sevelamer Carbonate Powder 800 Mg Powd.Pack) 1,600 mg PO TIDWM [facility] Last Admin: 07/19/23 22:28 Dose: Not Given Documented By: GARY Non-Admin Reason: Med Not Available Sodium Chloride (0.9 % Sodium Chloride Flush 3 Ml Syringe) 3 ml IVFLUSH QSGAFT [facility] Last Admin: 07/20/23 01:02 Dose: 3 ml Documented By: GARY Sodium Chloride (0.9 % Sodium Chloride Flush 3 Ml Syringe) [facility] Last Admin: 07/20/23 01:02 Dose: 3 ml Documented By: GARY Torsemide (Torsemide 20 Mg Tablet) 40 mg PO BID@0900,1400 [facility]; Protocol Last Admin: 07/19/23 13:21 Dose: Not Given Documented By: BLANCHE Non-Admin Reason: Patient Refused Labs 07/19/23 07:02 07/20/23 07:03 Labs: Laboratory Results - last 24 hr 07/19/23 07/19/23 07/20/23 13:18 15:03 07:03 Hold Purple Top SEE NOTE Anion Gap 20 Estim Creat Clear Calc 15.7 Estimated GFR 9 POC Glucose 156 H Random Glucose 149 H Calcium 8.2 L Random Vancomycin 25.9 H* Microbiology Microbiology Results: Microbiology 07/19/23 07:54 Blood Culture - Preliminary Blood - Venous Prelim: GPC Gram Stain only 07/19/23 07:55 Blood Culture - Preliminary Blood - Venous Prelim: GPC Gram Stain only 07/17/23 22:36 Blood Culture - Final Blood - Venous Staphylococcus aureus 07/18/23 14:34 Blood Culture - Preliminary Blood - Venous Prelim: GPC Gram Stain only 07/18/23 14:33 Blood Culture - Preliminary Blood - Venous Prelim: GPC Gram Stain only Assessment and Plan (1) Bacteremia due to Gram-positive bacteria: Status: Acute (2) ESRD on hemodialysis: Status: Acute (3) COVID-19 virus infection: Status: Acute Plan 67 year old obese white male with history of anemia, hypertension, hyperlipidemia, hypothyroidism, ESRD on hemodialysis MWF here with 1. Sepsis due to MSSA bacteremia Positive repeated cultures On Vancomycin PErmacath likely source and will need to be removed repeat blood cultures after removal of line Pending ID eval follow Vanco trough 2. COVID-19 infection manage symptomatically No hypoxia, no Remdesivir 3. ESRD on Hemodialysis (MWF) MWF schedule resume Sevelamer TID with meals Continue Torsemide Nephrology following, to try using his Fistula or place Temp dialysis cath 4. Hypothyroidism resume Levothyroxine 5. Hypertension Hold Losartan for hypotension 6. Hyperlipidemia resume Atorvastatin DVT: SC Lovenox CODE STATUS: Full code Admission inpatient overnight for management of bacteremia pending final blood culture and oracle consultant opinion Quality Stroke Does the patient have a stroke diagnosis?: No VTE Prior VTE?: No VTE Risk Level:: Medical - moderate - high VTE Device Contraindication: Treatment Not Tolerated VTE Drug Contraindication: N/A - Med Ordered
[2023-07-20] MEDS: Sertraline HCL 25 MG TABLET PO (11:12)
[2023-07-20] MEDS: Sevelamer Carbonate Powder 800 MG POWD.PACK 1600 MG PO ×2 (11:12→18:07)
[2023-07-20] MEDS: Docusate Sodium 100 MG CAPSULE PO ×2 (11:12→21:14)
--- NOTE | 2023-07-20 13:50 | MHC.CM.PN ---
Pt not yet medically ready for DC. He is being treated for Bacteremia. CM to follow and assist with DC plan.
--- NOTE | 2023-07-20 14:18 | HO.RADPN ---
RADIOLOGY Narrative Narrative: Left permacath removed entirely due to bacetermia. Tip sent for culture. Dressing and tegaderm applied to left chest. No bleeding was encountered. Tanner GONZALES Interventional Radiology
[2023-07-20] MEDS: ceFAZolin Sodium/Dextrose,Iso 2 GM/50 ML PIGGYBACK IV (18:09)
[2023-07-20] MEDS: Remdesivir 200 MG in 0.9 % Sodium Chloride 210 ML 105 MG IV (19:16)
--- NOTE | 2023-07-20 22:47 | P.CNID_ITS ---
History of Present Illness Data of Consult Service Date: 07/20/23 Requesting physician: Ileana Leach Primary Care Provider: Segundo Tapia MD HPI Reason for consult: MSSA bacteremia He presents with shortness of breath and fatigue. He has no nausea or vomiting. He has a permacath in place. 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 Family history: reviewed and not pertinent Surgical History Surgical History H/O aortic valve replacement Social History Social History Household Members: None Housing: Apartment Do you presently have visiting nurse or other home services: No Unable to assess alcohol history related to: Unknown Alcohol intake: never Comment: rings appropriately Patient Tobacco Use Status: Former Tobacco user Quit Date: 5 years ago Tobacco use type: Cigarette Years Smoked: 30 e-Cigarette/Vaping Use: Never Used Second Hand Smoke Exposure: No Advance Directives Date on File: 05/01/20 service: No Current occupational status: unemployed and disabled Meds Allergies Allergy/AdvReac Type Severity Reaction Status Date / Time Penicillins Allergy Unknown UNKWN Verified 07/24/22 09:42 Active Medications: Current Medications Acetaminophen (Acetaminophen 325 Mg Tablet) 650 mg PO Q6H PRN PRN Reason: Pain, Mild (Pain Scale 1-3) Last Admin: 07/19/23 13:20 Dose: 650 mg Al Hydroxide/Mg Hydroxide (Magnesium Hydrox/Alum Hydrox 30 Ml Oral.Susp) 30 ml PO Q4H PRN PRN Reason: Heartburn/Nausea Calcium Carbonate (Calcium Carbonate 750 Mg Tab.Chew) 750 mg PO TID [facility] Last Admin: 07/20/23 21:11 Dose: Not Given Docusate Sodium (Docusate Sodium 100 Mg Capsule) 100 mg PO BID [facility] Last Admin: 07/20/23 21:14 Dose: 100 mg Ergocalciferol (Ergocalciferol (Vitamin D2) 1,250 Mcg Capsule) 1,250 mcg PO FR@0900 [facility] Heparin Sodium (Porcine) (Heparin Sodium,Porcine 5,000 Unit/Ml Vial) 5,000 unit SUBCUT Q8H [facility] Last Admin: 07/20/23 18:07 Dose: 5,000 unit Hydromorphone HCl (Hydromorphone Hcl 0.5 Mg/0.5 Ml Syringe) 0.5 mg IVPUSH Q4H PRN; Protocol PRN Reason: Pain, Severe (Pain Scale 7-10) Last Admin: 07/20/23 05:58 Dose: 0.5 mg Remdesivir 100 mg/ Sodium (Chloride) 230 mls @ 115 mls/hr IV Q24H [facility] Stop: 07/24/23 19:59 Cefazolin Sodium/Dextrose (Ancef) 2 gm in 50 mls @ 100 mls/hr IV DIALYSIS X3 MOWEFR [facility] Last Infusion: 07/20/23 19:21 Dose: Infused Levothyroxine Sodium (Levothyroxine Sodium 75 Mcg Tablet) 75 mcg PO DAILY@0600 [facility] Last Admin: 07/20/23 05:38 Dose: 75 mcg Losartan Potassium (Losartan Potassium 50 Mg Tablet) 50 mg PO DAILY [facility]; Protocol Last Admin: 07/19/23 09:51 Dose: Not Given Melatonin (Melatonin 3 Mg Tablet) 6 mg PO BEDTIME PRN PRN Reason: Insomnia Last Admin: 07/19/23 22:47 Dose: 6 mg Omeprazole (Omeprazole 40 Mg Capsule.Dr) 40 mg PO DAILY@0630 [facility] Last Admin: 07/20/23 05:38 Dose: 40 mg Ondansetron HCl (Ondansetron Hcl 4 Mg/2 Ml Vial) 4 mg IVPUSH Q8H PRN PRN Reason: Nausea and Vomiting Oxycodone HCl (Oxycodone Hcl Immed Release 5 Mg Tablet) 5 mg PO Q6H PRN PRN Reason: Pain, Moderate(Pain Scale 4-6) Last Admin: 07/19/23 18:18 Dose: 5 mg Sertraline HCl (Sertraline Hcl 25 Mg Tablet) 25 mg PO DAILY [facility] Last Admin: 07/20/23 11:12 Dose: 25 mg Sevelamer Carbonate (Sevelamer Carbonate Powder 800 Mg Powd.Pack) 1,600 mg PO TIDWM [facility] Last Admin: 07/20/23 18:07 Dose: 1,600 mg Sodium Chloride (0.9 % Sodium Chloride Flush 3 Ml Syringe) 3 ml IVFLUSH [facility] Last Admin: 07/20/23 21:15 Dose: 3 ml Sodium Chloride (0.9 % Sodium Chloride Flush 3 Ml Syringe) 3 ml IVFLUSH [facility] Last Admin: 07/20/23 18:08 Dose: Not Given Torsemide (Torsemide 20 Mg Tablet) 40 mg PO BID@0900,1400 [facility]; Protocol Last Admin: 07/20/23 14:03 Dose: Not Given Home Medications Medication Instructions Recorded Confirmed Last Taken Type levothyroxine 75 mcg tablet 75 mcg PO DAILY@0600 06/27/20 07/18/23 3 Days Ago History ~07/15/23 atorvastatin 40 mg tablet 40 mg PO DAILY 02/10/22 07/18/23 3 Days Ago History ~07/15/23 sertraline 25 mg tablet 1 tab PO DAILY 10/03/22 07/18/23 3 Days Ago History ~07/15/23 calcium carbonate 400 mg calcium 400 mg PO TID 02/16/23 07/18/23 3 Days Ago History (1,000 mg) chewable tablet (Ultra ~07/15/23 Strength Antacid) ergocalciferol (vitamin D2) 1,250 1,250 mcg PO FR@0900 02/16/23 07/18/23 07/16/23 History mcg (50,000 unit) capsule losartan 50 mg tablet 50 mg PO DAILY 02/16/23 07/18/23 3 Days Ago History ~07/15/23 sevelamer carbonate 800 mg tablet 1,600 mg PO TID 02/16/23 07/18/23 3 Days Ago History ~07/15/23 torsemide 20 mg tablet 40 mg PO BID@0900,1400 02/16/23 07/18/23 3 Days Ago History ~07/15/23 omeprazole 40 mg capsule,delayed 40 mg PO DAILY@0630 07/18/23 07/18/23 3 Days Ago History release ~07/15/23 Physical Exam 2 Vital Signs: Vital Signs: Last Vital Signs Temp 99.7 F 07/20/23 16:11 Pulse 96 07/20/23 16:11 Resp 13 07/20/23 16:11 BP 125/59 L 07/20/23 16:11 Pulse Ox 95 07/20/23 16:11 O2 Del Method Nasal Cannula 07/20/23 16:11 O2 Flow Rate 2 07/20/23 16:11 BMI result Body Mass Index 35.1 Const: General: cooperative HEENT: Head: Yes normal to inspection Face and sinus: Yes normal facial exam Mouth: Normal oral and palatal mucosa present Teeth and gingiva: d entition normal Eyes: General: appearance normal, both eyes and all related structures P upils: Equal, round and reactive pupils present Resp: Effort & Inspection: normal respiratory effort Cardio: Rate: regular rate Rhythm: regular rhythm GI: Palpation (GI): Soft to palpation and nontender : General: Yes no CVA tenderness Back/Spine/Pelvis: Back: no CVA tenderness Skin: General skin exam: no rashes or lesions noted Neuro: General: moves all extremities Cranial nerves: Yes Equal, round and reactive pupils present Extrem: General: Yes normal to inspection Psych: Appearance: grossly normal Results Labs 07/19/23 07:02 07/20/23 07:03 Labs: BMP 07/20/23 07:03 Sodium 138 Potassium 3.8 Chloride 94 L Carbon Dioxide 28 BUN 41 H Creatinine 6.03 H* Calcium 8.2 L Microbiology Microbiology Results: Microbiology 07/18/23 14:34 Blood - Venous Blood Culture - Final Staphylococcus aureus 07/18/23 14:33 Blood - Venous Blood Culture - Final Staphylococcus aureus 07/19/23 07:54 Blood - Venous Blood Culture - Preliminary Prelim: GPC Gram Stain only 07/19/23 07:55 Blood - Venous Blood Culture - Preliminary Prelim: GPC Gram Stain only 07/17/23 22:36 Blood - Venous Blood Culture - Final Staphylococcus aureus 07/17/23 22:36 Blood - Venous Blood Culture - Final Assessment and Plan (1) Bacteremia due to Gram-positive bacteria: Status: Acute He has MSSA bactermia. He has permacath concern for infection Plan Would give Kefzol after hemodialysis for four weeks after first negative blood culture/ Echo if not done. Remdesivir for three days help prevent severe disease.
[2023-07-21] VITALS (7 sets, daily range): BP systolic 109–137; BP diastolic 56–72; PULSE 90–93; RESP 13–22; TEMP 36.8–37.7; O2SAT 90–97
[2023-07-21] MEDS: Heparin Sodium,Porcine 5,000 UNIT/ML VIAL 5000 UNIT SUBCUT ×3 (02:31→16:01)
--- NOTE | 2023-07-21 03:04 | PM.EVENT ---
Event Note Date of Service: 07/21/23 Event Note: Nurse reported an episode of aspiration. Vitals normal. Will consult speech and keep patient NPO. Obtaining chest x-ray Time Spent With Patient Time: Total time managing care of this patient today ____ minutes.
[2023-07-21 07:35] LABS: Hematocrit 29.8 % (42.0-52.0); Hemoglobin 9.8 g/dl (14.0-18.0); Mean Corpuscular HGB Conc 32.9 g/dl (31.0-36.0); Mean Corpuscular Hemoglobin 31.8 pg (27.0-33.0); Mean Corpuscular Volume 96.8 fL (80.0-98.0); Mean Platelet Volume 10.4 fL (9.4-12.4); Platelet Count 198 X10*3/uL (160-400); Red Blood Count 3.08 X10*6/uL (4.60-5.80); Red Cell Distribution Width 14.7 % (11.0-16.0); White Blood Count 13.2 X10*3/uL (4.8-10.8)
[2023-07-21 08:10] LABS: Creatinine Clr Calc Pharmacy 13.7; Estimated Glomerular Filt Rate 8
[2023-07-21] MEDS: Calcium Carbonate 750 MG TAB.CHEW PO (09:33)
[2023-07-21] MEDS: Docusate Sodium 100 MG CAPSULE PO ×2 (09:33→20:24)
[2023-07-21] MEDS: Sevelamer Carbonate Powder 800 MG POWD.PACK 1600 MG PO ×3 (09:33→16:01)
[2023-07-21] MEDS: Torsemide 20 MG TABLET 40 MG PO ×2 (09:33→12:53)
[2023-07-21] MEDS: Sertraline HCL 25 MG TABLET PO (09:33)
[2023-07-21] MEDS: 0.9 % Sodium Chloride Flush 3 ML SYRINGE IVFLUSH (09:33)
--- NOTE | 2023-07-21 10:27 | HO.PM.IMPN ---
Subjective Subjective Date of Service: 07/21/23 Interval History: no complaints Physical Exam Vital Signs: Vital Signs: Last Vital Signs Temp 99.0 F 07/21/23 08:00 Pulse 93 07/21/23 08:00 Resp 18 07/21/23 08:00 BP 121/62 07/21/23 08:00 Pulse Ox 96 07/21/23 08:00 O2 Del Method Room Air 07/21/23 08:00 O2 Flow Rate 2 07/21/23 00:00 BMI result Body Mass Index 35.1 Const: General: cooperative HEENT: Head: Yes normal to inspection Face and sinus: Yes normal facial exam Mouth: Normal oral and palatal mucosa present Teeth and gingiva: dentition normal Eyes: General: appearance normal, both eyes and all related structures Pupils: Equal, round and reactive pupils present Resp: Effort & Inspection: normal respiratory effort Cardio: Rate: regular rate Rhythm: regular rhythm GI: Palpation (GI): Soft to palpation and nontender : General: Yes no CVA tenderness Back/Spine/Pelvis: Back: no CVA tenderness Skin: General skin exam: no rashes or lesions noted Neuro: General: moves all extremities Cranial nerves: Yes Equal, round and reactive pupils present Extrem: General: Yes normal to inspection Psych: Appearance: grossly normal Objective Data Active Medications Acetaminophen (Acetaminophen 325 Mg Tablet) 650 mg PO Q6H PRN PRN Reason: Pain, Mild (Pain Scale 1-3) Last Admin: 07/19/23 13:20 Dose: 650 mg Documented By: BLANCHE Al Hydroxide/Mg Hydroxide (Magnesium Hydrox/Alum Hydrox 30 Ml Oral.Susp) 30 ml PO Q4H PRN PRN Reason: Heartburn/Nausea Calcium Carbonate (Calcium Carbonate 750 Mg Tab.Chew) 750 mg PO TID [facility] Last Admin: 07/21/23 09:33 Dose: 750 mg Documented By: KAREN Docusate Sodium (Docusate Sodium 100 Mg Capsule) 100 mg PO BID [facility] Last Admin: 07/21/23 09:33 Dose: 100 mg Documented By: KAREN Ergocalciferol (Ergocalciferol (Vitamin D2) 1,250 Mcg Capsule) 1,250 mcg PO FR@0900 [facility] Heparin Sodium (Porcine) (Heparin Sodium,Porcine 5,000 Unit/Ml Vial) 5,000 unit SUBCUT Q8H [facility] Last Admin: 07/21/23 09:33 Dose: 5,000 unit Documented By: KAREN Hydromorphone HCl (Hydromorphone Hcl 0.5 Mg/0.5 Ml Syringe) 0.5 mg IVPUSH Q4H PRN; Protocol PRN Reason: Pain, Severe (Pain Scale 7-10) Last Admin: 07/20/23 05:58 Dose: 0.5 mg Documented By: GARY Remdesivir 100 mg/ Sodium (Chloride) 230 mls @ 115 mls/hr IV Q24H [facility] Stop: 07/24/23 19:59 Cefazolin Sodium/Dextrose (Ancef) 2 gm in 50 mls @ 100 mls/hr IV DIALYSIS X3 MOWEFR [facility] Last Infusion: 07/20/23 19:21 Dose: Infused Documented By: HUE Levothyroxine Sodium (Levothyroxine Sodium 75 Mcg Tablet) 75 mcg PO DAILY@0600 [facility] Last Admin: 07/21/23 06:29 Dose: Not Given Documented By: GARY Non-Admin Reason: Failed nurse swallow eval Losartan Potassium (Losartan Potassium 50 Mg Tablet) 50 mg PO DAILY [facility]; Protocol Last Admin: 07/19/23 09:51 Dose: Not Given Documented By: BLANCHE Non-Admin Reason: Decreased Blood Pressure Melatonin (Melatonin 3 Mg Tablet) 6 mg PO BEDTIME PRN PRN Reason: Insomnia Last Admin: 07/19/23 22:47 Dose: 6 mg Documented By: GARY Omeprazole (Omeprazole 40 Mg Capsule.) 40 mg PO DAILY@0630 [facility] Last Admin: 07/21/23 06:29 Dose: Not Given Documented By: GARY Non-Admin Reason: Failed nurse swallow eval Ondansetron HCl (Ondansetron Hcl 4 Mg/2 Ml Vial) 4 mg IVPUSH Q8H PRN PRN Reason: Nausea and Vomiting Oxycodone HCl (Oxycodone Hcl Immed Release 5 Mg Tablet) 5 mg PO Q6H PRN PRN Reason: Pain, Moderate(Pain Scale 4-6) Last Admin: 07/19/23 18:18 Dose: 5 mg Documented By: BLANCHE Sertraline HCl (Sertraline Hcl 25 Mg Tablet) 25 mg PO DAILY [facility] Last Admin: 07/21/23 09:33 Dose: 25 mg Documented By: KAREN Sevelamer Carbonate (Sevelamer Carbonate Powder 800 Mg Powd.Pack) 1,600 mg PO TIDWM [facility] Last Admin: 07/21/23 09:33 Dose: 1,600 mg Documented By: KAREN Sodium Chloride (0.9 % Sodium Chloride Flush 3 Ml Syringe) [facility] Last Admin: 07/21/23 09:33 Dose: 3 ml Documented By: KAREN Sodium Chloride (0.9 % Sodium Chloride Flush 3 Ml Syringe) 3 ml IVFLUSH [facility] Last Admin: 07/21/23 09:33 Dose: Not Given Documented By: KAREN Non-Admin Reason: Duplicate Order Torsemide (Torsemide 20 Mg Tablet) 40 mg PO BID@0900,1400 [facility]; Protocol Last Admin: 07/21/23 09:33 Dose: 40 mg Documented By: KAREN Labs 07/21/23 06:28 07/21/23 06:28 Labs: Laboratory Results - last 24 hr 07/21/23 06:28 MCV 96.8 MCH 31.8 MCHC 32.9 RDW 14.7 Plt Count 198 MPV 10.4 Absolute Nucleated RBC 0.000 Nucleated RBC % (auto) 0.0 Estim Creat Clear Calc 13.7 Estimated GFR 8 Microbiology Microbiology Results: Microbiology 07/18/23 14:34 Blood Culture - Final Blood - Venous Staphylococcus aureus 07/18/23 14:33 Blood Culture - Final Blood - Venous Staphylococcus aureus 07/19/23 07:54 Blood Culture - Preliminary Blood - Venous Prelim: GPC Gram Stain only 07/19/23 07:55 Blood Culture - Preliminary Blood - Venous Prelim: GPC Gram Stain only 07/17/23 22:36 Blood Culture - Final Blood - Venous Staphylococcus aureus Assessment and Plan (1) Bacteremia due to Gram-positive bacteria: Status: Acute (2) ESRD on hemodialysis: Status: Acute (3) COVID-19 virus infection: Status: Acute Plan 67M PMH anemia, hypertension, hyperlipidemia, hypothyroidism, ESRD on hemodialysis MWF here with Sepsis due to MSSA bacteremia Positive repeated cultures 07/19/23, permacath removed, using fistula, follow up repeat cultures, check echo On ancef COVID-19 infection manage symptomatically No hypoxia, no Remdesivir ESRD on Hemodialysis (MWF) MWF schedule Sevelamer TID with meals Continue Torsemide Nephrology following Hypothyroidism Levothyroxine Hypertension Holding Losartan for hypotension Hyperlipidemia Atorvastatin DVT: SC Lovenox CODE STATUS: Full code reason for continued hospitalization:awaiting bacteremia clearance Quality Stroke Does the patient have a stroke diagnosis?: No VTE Prior VTE?: No VTE Risk Level:: Medical - moderate - high VTE Device Contraindication: Treatment Not Tolerated VTE Drug Contraindication: N/A - Med Ordered
--- NOTE | 2023-07-21 12:31 | PM.PNNEP ---
Subjective Subjective Date of Service: 07/21/23 Interval history: seen and examined no complaints Physical Exam Vital Signs: Vital Signs: Last Vital Signs Temp 99.9 F 07/21/23 11:46 Pulse 90 07/21/23 11:46 Resp 13 07/21/23 11:46 BP 130/72 07/21/23 11:46 Pulse Ox 90 L 07/21/23 11:46 O2 Del Method Room Air 07/21/23 11:46 O2 Flow Rate 2 07/21/23 00:00 BMI result Body Mass Index 35.1 Const: General: alert and awake HEENT: Head: Yes normocephalic and Yes atraumatic Neck: Neck: Yes supple Resp: Auscultation: diminished lung sounds Cardio: Heart sounds: S1 normal heart sound present and S2 normal heart sound present GI: Palpation (GI): Soft to palpation and nontender Extrem: General: Yes normal to inspection Objective Data Labs 07/21/23 06:28 07/21/23 06:28 Labs: Laboratory Results - last 24 hr 07/21/23 06:28 WBC 13.2 H RBC 3.08 L Hgb 9.8 L Hct 29.8 L MCV 96.8 MCH 31.8 MCHC 32.9 RDW 14.7 Plt Count 198 MPV 10.4 Absolute Nucleated RBC 0.000 Nucleated RBC % (auto) 0.0 Creatinine 6.92 H* Estim Creat Clear Calc 13.7 Estimated GFR 8 Microbiology Microbiology Results: Microbiology 07/19/23 07:54 Blood - Venous Blood Culture - Final Staphylococcus aureus 07/19/23 07:55 Blood - Venous Blood Culture - Final Staphylococcus aureus 07/20/23 14:23 Catheter Tip - Other Catheter Tip Culture - Preliminary Staphylococcus species 07/18/23 14:34 Blood - Venous Blood Culture - Final Staphylococcus aureus 07/18/23 14:33 Blood - Venous Blood Culture - Final Staphylococcus aureus 07/17/23 22:36 Blood - Venous Blood Culture - Final Staphylococcus aureus 07/17/23 22:36 Blood - Venous Blood Culture - Final Procedures Date of Service Date of Service: 07/21/23 Assessment & Plan Assessment and plan (1) ESRD (end stage renal disease): Status: Acute (2) Bacteremia: Status: Acute (3) Anemia: Status: Acute (4) Aortic stenosis: Status: Acute Plan known ESRD on dialysis m-w-f at [facility] currently has AVF not mature and not usable MSSA bacteremia blood culture on 07/19/23 positive permacath removed on 07/19/23 nephrogenic anemia REC no indication for emergent dialysis line holiday will need 48 hours negative blood culture to place new dialysis tunnelled catheter c/w cefazolin follow blood culture echocardiogram renal diet phosphate binders KARISSA per protocol Time Spent With Patient Time: Total time managing care of this patient today ____ minutes. Progress Note: Quality Stroke Does the patient have a stroke diagnosis?: No
[2023-07-21] MEDS: ceFAZolin Sodium/Dextrose,Iso 2 GM/50 ML PIGGYBACK IV ×3 (16:01→17:26)
--- NOTE | 2023-07-21 17:23 | MHC.SL.SWA ---
Risk of Aspiration Due to: Lethargy Dysphasia Diet Status: UPGRADE Liquid Consistency and Strategies for Safe Swallow: Liquid Intake Recommendation: Thin Liquid Intake Strategies: Small Sips Solid Food Consistency: Dietary Recommendations: Grnd/Mech Altered (NDD2) Oral Medication Intake: Whole with Liquid Please contact the pharmacy regarding appropriate crushable or liquid drug formulations that are available whenever modified delivery is recommended. Compensatory Strategies and Precautions to be Taken for Safe Swallow: Sitting Upright (90 deg) Small Bites and Sips Alternate Liquids/Solids Rate of Ingestion Change Avoid Specific Foods Supervision While Eating and Drinking for Safe Swallow: Total Supervision (1:1) Recommendation for Speech: Inpatient Speech Therapy Comment: Recommend UPGRADE to GROUND solids (NDD2) and THIN liquids. Patient reportedly tolerating pills whole w/ liquid; recommend taken one at a time. Recommend FULL supervision at this time d/t recent aspiration episode and pt's positional tendencies. Pt must be as close to upright position as possible for all PO. Patient should be seated as upright as possible for all PO. Aspiration precautions apply. PLATE MAKER to continue to follow. Salt Machine Operator Clinican/Clinical Fellow: No Supervisory Statement: I have reviewed and agree with the student/clinical fellow's documentation: N/A Speech Language Pathologist: Bria Call M.A., [facility]-PLATE MAKER
[2023-07-21] MEDS: Remdesivir 100 MG in 0.9 % Sodium Chloride 230 ML 115 MG IV (17:29)
[2023-07-21] MEDS: Acetaminophen 325 MG TABLET 650 MG PO (17:55)
[2023-07-21] MEDS: Melatonin 3 MG TABLET 6 MG PO (20:24)
[2023-07-22] VITALS: BP 139/59; PULSE 92; RESP 20; TEMP 37.1; O2SAT 94
[2023-07-22] MEDS: Heparin Sodium,Porcine 5,000 UNIT/ML VIAL 5000 UNIT SUBCUT ×3 (02:12→16:58)
[2023-07-22 03:19] VITALS: BP 119/59; PULSE 87; RESP 20; TEMP 36.6; O2SAT 91
[2023-07-22] MEDS: Levothyroxine Sodium 75 MCG TABLET PO (05:52)
[2023-07-22 07:29] VITALS: BP 121/58; PULSE 87; RESP 18; TEMP 37; O2SAT 94
--- NOTE | 2023-07-22 08:58 | HO.PM.IMPN ---
Subjective Subjective Date of Service: 07/22/23 Interval History: a bit sob today Physical Exam Vital Signs: Vital Signs: Last Vital Signs Temp 98.6 F 07/22/23 07:29 Pulse 87 07/22/23 07:29 Resp 18 07/22/23 07:29 BP 121/58 L 07/22/23 07:29 Pulse Ox 94 07/22/23 07:29 O2 Del Method Room Air 07/22/23 07:29 O2 Flow Rate 2 07/21/23 16:00 BMI result Body Mass Index 35.1 Const: General: alert and awake HEENT: Head: Yes normocephalic and Yes atraumatic Neck: Neck: Yes supple Resp: Auscultation: diminished lung sounds Cardio: Heart sounds: S1 normal heart sound present and S2 normal heart sound present GI: Palpation (GI): Soft to palpation and nontender Extrem: General: Yes normal to inspection Objective Data Active Medications Acetaminophen (Acetaminophen 325 Mg Tablet) 650 mg PO Q6H PRN PRN Reason: Pain, Mild (Pain Scale 1-3) Last Admin: 07/21/23 17:55 Dose: 650 mg Documented By: CHEMA Al Hydroxide/Mg Hydroxide (Magnesium Hydrox/Alum Hydrox 30 Ml Oral.Susp) 30 ml PO Q4H PRN PRN Reason: Heartburn/Nausea Calcium Carbonate (Calcium Carbonate 750 Mg Tab.Chew) 750 mg PO TID [facility] Last Admin: 07/21/23 20:25 Dose: Not Given Documented By: RAMIRO Non-Admin Reason: Patient Refused Docusate Sodium (Docusate Sodium 100 Mg Capsule) 100 mg PO BID [facility] Last Admin: 07/21/23 20:24 Dose: 100 mg Documented By: RAMIRO Ergocalciferol (Ergocalciferol (Vitamin D2) 1,250 Mcg Capsule) 1,250 mcg PO FR@0900 [facility] Heparin Sodium (Porcine) (Heparin Sodium,Porcine 5,000 Unit/Ml Vial) 5,000 unit SUBCUT Q8H [facility] Last Admin: 07/22/23 02:12 Dose: 5,000 unit Documented By: RAMIRO Hydromorphone HCl (Hydromorphone Hcl 0.5 Mg/0.5 Ml Syringe) 0.5 mg IVPUSH Q4H PRN; Protocol PRN Reason: Pain, Severe (Pain Scale 7-10) Last Admin: 07/20/23 05:58 Dose: 0.5 mg Documented By: GARY Remdesivir 100 mg/ Sodium (Chloride) 230 mls @ 115 mls/hr IV Q24H [facility] Stop: 07/24/23 19:59 Last Infusion: 07/21/23 20:27 Dose: Infused Documented By: RAMIRO Cefazolin Sodium/Dextrose (Ancef) 2 gm in 50 mls @ 100 mls/hr IV DIALYSIS X3 MOWEFR [facility] Last Infusion: 07/21/23 18:21 Dose: Infused Documented By: KAREN Levothyroxine Sodium (Levothyroxine Sodium 75 Mcg Tablet) 75 mcg PO DAILY@0600 [facility] Last Admin: 07/22/23 05:52 Dose: 75 mcg Documented By: RAMIRO Losartan Potassium (Losartan Potassium 50 Mg Tablet) 50 mg PO DAILY [facility]; Protocol Last Admin: 07/19/23 09:51 Dose: Not Given Documented By: BLANCHE Non-Admin Reason: Decreased Blood Pressure Melatonin (Melatonin 3 Mg Tablet) 6 mg PO BEDTIME PRN PRN Reason: Insomnia Last Admin: 07/21/23 20:24 Dose: 6 mg Documented By: RAMIRO Omeprazole (Omeprazole 40 Mg Capsule.Dr) 40 mg PO DAILY@0630 [facility] Last Admin: 07/22/23 05:52 Dose: 40 mg Documented By: RAMIRO Ondansetron HCl (Ondansetron Hcl 4 Mg/2 Ml Vial) 4 mg IVPUSH Q8H PRN PRN Reason: Nausea and Vomiting Oxycodone HCl (Oxycodone Hcl Immed Release 5 Mg Tablet) 5 mg PO Q6H PRN PRN Reason: Pain, Moderate(Pain Scale 4-6) Last Admin: 07/19/23 18:18 Dose: 5 mg Documented By: BLANCHE Sertraline HCl (Sertraline Hcl 25 Mg Tablet) 25 mg PO DAILY [facility] Last Admin: 07/21/23 09:33 Dose: 25 mg Documented By: KAREN Sevelamer Carbonate (Sevelamer Carbonate Powder 800 Mg Powd.Pack) 1,600 mg PO TIDWM [facility] Last Admin: 07/21/23 16:01 Dose: 1,600 mg Documented By: KAREN Sodium Chloride (0.9 % Sodium Chloride Flush 3 Ml Syringe) 3 ml IVFLUSH [facility] Last Admin: 07/21/23 20:26 Dose: 3 ml Documented By: RAMIRO Sodium Chloride (0.9 % Sodium Chloride Flush 3 Ml Syringe) 3 ml IVFLUSH [facility] Last Admin: 07/21/23 23:38 Dose: Not Given Documented By: RAMIRO Non-Admin Reason: Duplicate Order Torsemide (Torsemide 20 Mg Tablet) 40 mg PO BID@0900,1400 [facility]; Protocol Last Admin: 07/21/23 12:53 Dose: 40 mg Documented By: KAREN Labs 07/21/23 06:28 07/21/23 06:28 Microbiology Microbiology Results: Microbiology 07/21/23 10:26 Blood Culture - Preliminary Blood - Venous Prelim: GPC Gram Stain only 07/20/23 14:23 Catheter Tip Culture - Final Catheter Tip - Other Staphylococcus aureus 07/19/23 07:54 Blood Culture - Final Blood - Venous Staphylococcus aureus 07/19/23 07:55 Blood Culture - Final Blood - Venous Staphylococcus aureus Assessment and Plan (1) Bacteremia due to Gram-positive bacteria: Status: Acute (2) ESRD on hemodialysis: Status: Acute (3) COVID-19 virus infection: Status: Acute Plan 67M PMH anemia, hypertension, hyperlipidemia, hypothyroidism, ESRD on hemodialysis MWF here with Sepsis due to MSSA bacteremia Positive repeated cultures 07/19/23, permacath removed, using fistula, follow up repeat cultures from 07/21/23, no vegetation on echo On ancef COVID-19 infection manage symptomatically No hypoxia, no Remdesivir ESRD on Hemodialysis (MWF) MWF schedule Sevelamer TID with meals Continue Torsemide Nephrology following Hypothyroidism Levothyroxine Hypertension Holding Losartan for hypotension Hyperlipidemia Atorvastatin DVT: SC Lovenox CODE STATUS: Full code reason for continued hospitalization:awaiting bacteremia clearance Quality Stroke Does the patient have a stroke diagnosis?: No VTE Prior VTE?: No VTE Risk Level:: Medical - moderate - high VTE Device Contraindication: Treatment Not Tolerated VTE Drug Contraindication: N/A - Med Ordered
[2023-07-22] MEDS: Docusate Sodium 100 MG CAPSULE PO ×2 (09:28→22:03)
[2023-07-22] MEDS: Sertraline HCL 25 MG TABLET PO (09:28)
[2023-07-22] MEDS: oxyCODONE HCl Immed Release 5 MG TABLET PO (09:28)
[2023-07-22] MEDS: Sevelamer Carbonate Powder 800 MG POWD.PACK 1600 MG PO ×2 (09:28→12:39)
[2023-07-22] MEDS: Acetaminophen 325 MG TABLET 650 MG PO (09:28)
--- NOTE | 2023-07-22 10:33 | MHC.CM.PN ---
LOVE CONTACTED [facility] TO VERIFY HE GETS HD THERE AND STAFF ANSWERING PHONE REPORTS THAT PT HAS MOVED TO [place] D/T IT BEING CLOSER TO PT'S HOME.
--- NOTE | 2023-07-22 10:47 | MHC.CM.PN ---
EMR REVIEWED, PT W/COVID19 AND HD AT [facility], PER HOSPITALIST ANTIC PT COULD BE CLEARED FOR DC EARLY TOMORROW 07/23, P.T. KAT COMPLETED AND RECOMMENDING STR, D/T PT'S HD [facility] CM WILL CONT TO FOLLOW DC NEEDS.
[2023-07-22 11:37] VITALS: BP 115/55; PULSE 86; RESP 18; TEMP 36.9; O2SAT 93
--- NOTE | 2023-07-22 14:51 | MHC.SL.SWA ---
Speech Pathologist Impression: Risk of Aspiration Due to: Lethargy Dysphasia Diet Status: Continue on Ground Mechanical Altered with Thin liquids pills whole with liquid. Liquid Consistency and Strategies for Safe Swallow: Liquid Intake Recommendation: Thin Liquid Intake Strategies: Small Sips Solid Food Consistency: Dietary Recommendations: Grnd/Mech Altered (NDD2) Additional Modifications to Solid Foods: Oral Medication Intake: Whole with Liquid Please contact the pharmacy regarding appropriate crushable or liquid drug formulations that are available whenever modified delivery is recommended. Compensatory Strategies and Precautions to be Taken for Safe Swallow: Sitting Upright (90 deg) Small Bites and Sips Alternate Liquids/Solids Rate of Ingestion Change Avoid Specific Foods Supervision While Eating and Drinking for Safe Swallow: Intermittent Supervision Foods to Avoid: Swallowing Recommended Treatments: Recommendation for Speech: Inpatient Speech Therapy Comment: Patient seen at lunch, however when ESTIMATION MANAGER arrived, tray had already been removed from room. Noted patient touched very little of food. Patient reported to ESTIMATION MANAGER that he was not hungry. Patient brought trial of more advanced texture to evaluate for advancement of diet, which patient was willing to try. Patient given piece of turkey sandwich moistened with moody and crusts removed. Patient produced prolonged period of mastication on this texture, followed by piece meal swallow, taking three swallows to clear single bite of sandwich, with repeat mastication between each swallow. Patient reported that he did not care for the sandwich. Patient took sips of apple juice to assist with clearing any residual. No clinical signs of aspiration on sips of liquid. Due to prolonged period of mastication and effort to consume, do not recommend advancement of diet at this time. Continue on Ground Mechanical Altered with Thin liquids pills whole with liquid. Frequency/Duration: Date Range for Service Req: Timeline to reassess: Semiconductor Packages Sealer Clinican/Clinical Fellow: No Supervisory Statement: I have reviewed and agree with the student/clinical fellow's documentation: N/A Speech Language Pathologist: Erika Murray M.A., CCC-ESTIMATION MANAGER
[2023-07-22 15:26] VITALS: BP 125/61; PULSE 77; RESP 20; TEMP 36.2; O2SAT 94
--- NOTE | 2023-07-22 16:15 | MHC.CM.PN ---
C CONTACTED PT VIA PHONE D/T COVID19+, PT REPORTS HE DOES NOT WANT TO GO TO STR AND PREFERS TO GO HOME W/SERVICES, NO PREFERENCE ON [facility], REFERRAL PLACED TO [facility] IS BOOKING OUT TO MON/TUES FOR SOC.
[2023-07-22] MEDS: Remdesivir 100 MG in 0.9 % Sodium Chloride 230 ML 115 MG IV (16:58)
--- NOTE | 2023-07-22 19:22 | PM.PNNEP ---
Subjective Subjective Date of Service: 07/22/23 Interval history: Seen and examined, events noted Sleepy Physical Exam Vital Signs: Vital Signs: Last Vital Signs Temp 97.1 F 07/22/23 15:26 Pulse 77 07/22/23 15:26 Resp 20 07/22/23 15:26 BP 125/61 07/22/23 15:26 Pulse Ox 94 07/22/23 15:26 O2 Del Method Room Air 07/22/23 15:26 O2 Flow Rate 2 07/21/23 16:00 BMI result Body Mass Index 35.1 Const: General: alert and awake HEENT: Head: Yes normocephalic and Yes atraumatic Neck: Neck: Yes supple Resp: Auscultation: diminished lung sounds Cardio: Heart sounds: S1 normal heart sound present and S2 normal heart sound present GI: Palpation (GI): Soft to palpation and nontender Extrem: General: Yes normal to inspection Objective Data Labs 07/21/23 06:28 07/21/23 06:28 Microbiology Microbiology Results: Microbiology 07/21/23 10:26 Blood - Venous Blood Culture - Preliminary Prelim: GPC Gram Stain only 07/21/23 10:26 Blood - Venous Blood Culture - Preliminary Prelim: GPC Gram Stain only 07/20/23 14:23 Catheter Tip - Other Catheter Tip Culture - Final Staphylococcus aureus 07/19/23 07:54 Blood - Venous Blood Culture - Final Staphylococcus aureus 07/19/23 07:55 Blood - Venous Blood Culture - Final Staphylococcus aureus 07/18/23 14:34 Blood - Venous Blood Culture - Final Staphylococcus aureus 07/18/23 14:33 Blood - Venous Blood Culture - Final Staphylococcus aureus 07/17/23 22:36 Blood - Venous Blood Culture - Final Staphylococcus aureus 07/17/23 22:36 Blood - Venous Blood Culture - Final Procedures Date of Service Date of Service: 07/22/23 Assessment & Plan Assessment and plan (1) ESRD (end stage renal disease): Status: Acute (2) Bacteremia: Status: Acute (3) Anemia: Status: Acute (4) Aortic stenosis: Status: Acute Plan known ESRD on dialysis m-w-f at [facility] dialysis unit currently has AVF not mature and not usable MSSA bacteremia blood culture on 07/19/23 positive permacath removed on 07/19/23 nephrogenic anemia REC no indication for emergent dialysis line holiday will need 48 hours negative blood culture to place new dialysis tunnelled catheter ---will plan for Pcath 07/23/23 and HD as long as Bld cult -ve x 48 hrs o/w may need temp HD cath and HD c/w cefazolin renal diet phosphate binders KRAISSA per protocol Time Spent With Patient Time: Total time managing care of this patient today ____ minutes. Progress Note: Quality Stroke Does the patient have a stroke diagnosis?: No
[2023-07-22 20:00] VITALS: BP 112/57; PULSE 90; RESP 20; TEMP 37; O2SAT 94
[2023-07-23] VITALS (7 sets, daily range): BP systolic 121–139; BP diastolic 50–61; PULSE 85–99; RESP 19–20; TEMP 36.5–37.6; O2SAT 92–96
[2023-07-23] MEDS: Heparin Sodium,Porcine 5,000 UNIT/ML VIAL 5000 UNIT SUBCUT ×2 (03:48→12:46)
[2023-07-23] MEDS: Levothyroxine Sodium 75 MCG TABLET PO (05:45)
[2023-07-23] MEDS: Docusate Sodium 100 MG CAPSULE PO (09:17)
[2023-07-23] MEDS: Sertraline HCL 25 MG TABLET PO (09:17)
--- NOTE | 2023-07-23 10:14 | MHC.CM.PN ---
EMR REVIEWED, PT'S BC'S CONT TO BE POSITIVE, PT WILL NEED TO BE REDRAWN AND PER HOSPITALIST PT WILL REMAIN INPT THROUGH W/E, CM WILL CONT TO FOLLOW DC NEEDS.
--- NOTE | 2023-07-23 10:16 | HO.PM.IMPN ---
Subjective Subjective Date of Service: 07/23/23 Interval History: no sob today Physical Exam Vital Signs: Vital Signs: Last Vital Signs Temp 98.1 F 07/23/23 08:00 Pulse 87 07/23/23 08:00 Resp 19 07/23/23 08:00 BP 121/57 L 07/23/23 08:00 Pulse Ox 96 07/23/23 08:00 O2 Del Method Room Air 07/23/23 08:00 O2 Flow Rate 2 07/21/23 16:00 BMI result Body Mass Index 35.1 Const: General: alert and awake HEENT: Head: Yes normocephalic and Yes atraumatic Neck: Neck: Yes supple Resp: Auscultation: diminished lung sounds Cardio: Heart sounds: S1 normal heart sound present and S2 normal heart sound present GI: Palpation (GI): Soft to palpation and nontender Extrem: General: Yes normal to inspection Objective Data Active Medications Acetaminophen (Acetaminophen 325 Mg Tablet) 650 mg PO Q6H PRN PRN Reason: Pain, Mild (Pain Scale 1-3) Last Admin: 07/22/23 09:28 Dose: 650 mg Documented By: KAREN Al Hydroxide/Mg Hydroxide (Magnesium Hydrox/Alum Hydrox 30 Ml Oral.Susp) 30 ml PO Q4H PRN PRN Reason: Heartburn/Nausea Calcium Carbonate (Calcium Carbonate 750 Mg Tab.Chew) 750 mg PO TID [facility] Last Admin: 07/23/23 09:18 Dose: Not Given Documented By: EVANGELIST Non-Admin Reason: Patient Refused Docusate Sodium (Docusate Sodium 100 Mg Capsule) 100 mg PO BID [facility] Last Admin: 07/23/23 09:17 Dose: 100 mg Documented By: EVANGELIST Ergocalciferol (Ergocalciferol (Vitamin D2) 1,250 Mcg Capsule) 1,250 mcg PO FR@0900 [facility] Last Admin: 07/23/23 09:17 Dose: 1,250 mcg Documented By: EVANGELIST Heparin Sodium (Porcine) (Heparin Sodium,Porcine 5,000 Unit/Ml Vial) 5,000 unit SUBCUT Q8H [facility] Last Admin: 07/23/23 03:48 Dose: 5,000 unit Documented By: EVANGELIST Hydromorphone HCl (Hydromorphone Hcl 0.5 Mg/0.5 Ml Syringe) 0.5 mg IVPUSH Q4H PRN; Protocol PRN Reason: Pain, Severe (Pain Scale 7-10) Last Admin: 07/20/23 05:58 Dose: 0.5 mg Documented By: GARY Remdesivir 100 mg/ Sodium (Chloride) 230 mls @ 115 mls/hr IV Q24H [facility] Stop: 07/24/23 19:59 Last Infusion: 07/22/23 22:01 Dose: Infused Documented By: EVANGELIST Cefazolin Sodium/Dextrose (Ancef) 2 gm in 50 mls @ 100 mls/hr IV DIALYSIS X3 MOWEFR [facility] Last Infusion: 07/21/23 18:21 Dose: Infused Documented By: KAREN Levothyroxine Sodium (Levothyroxine Sodium 75 Mcg Tablet) 75 mcg PO DAILY@0600 [facility] Last Admin: 07/23/23 05:45 Dose: 75 mcg Documented By: EVANGELIST Losartan Potassium (Losartan Potassium 50 Mg Tablet) 50 mg PO DAILY [facility]; Protocol Last Admin: 07/19/23 09:51 Dose: Not Given Documented By: BLANCHE Non-Admin Reason: Decreased Blood Pressure Melatonin (Melatonin 3 Mg Tablet) 6 mg PO BEDTIME PRN PRN Reason: Insomnia Last Admin: 07/21/23 20:24 Dose: 6 mg Documented By: RAMIRO Omeprazole (Omeprazole 40 Mg Capsule.Dr) 40 mg PO DAILY@0630 [facility] Last Admin: 07/23/23 05:45 Dose: 40 mg Documented By: EVANGELIST Ondansetron HCl (Ondansetron Hcl 4 Mg/2 Ml Vial) 4 mg IVPUSH Q8H PRN PRN Reason: Nausea and Vomiting Sertraline HCl (Sertraline Hcl 25 Mg Tablet) 25 mg PO DAILY [facility] Last Admin: 07/23/23 09:17 Dose: 25 mg Documented By: EVANGELIST Sevelamer Carbonate (Sevelamer Carbonate Powder 800 Mg Powd.Pack) 1,600 mg PO TIDWM [facility] Last Admin: 07/22/23 12:39 Dose: 1,600 mg Sodium Chloride (0.9 % Sodium Chloride Flush 3 Ml Syringe) 3 ml IVFLUSH QSHIFT [facility] Last Admin: 07/23/23 09:18 Dose: 3 ml Documented By: EVANGELIST Sodium Chloride (0.9 % Sodium Chloride Flush 3 Ml Syringe) 3 ml IVFLUSH QSHIFT [facility] Last Admin: 07/23/23 09:18 Dose: Not Given Documented By: EVANGELIST Non-Admin Reason: Duplicate Order Torsemide (Torsemide 20 Mg Tablet) 40 mg PO BID@0900,1400 [facility]; Protocol Last Admin: 07/23/23 09:17 Dose: 40 mg Documented By: EVANGELIST Labs 07/21/23 06:28 07/21/23 06:28 Microbiology Microbiology Results: Microbiology 07/21/23 10:26 Blood Culture - Final Blood - Venous Staphylococcus aureus 07/21/23 10:26 Blood Culture - Final Blood - Venous Staphylococcus aureus 07/20/23 14:23 Catheter Tip Culture - Final Catheter Tip - Other Staphylococcus aureus Assessment and Plan (1) Bacteremia due to Gram-positive bacteria: Status: Acute (2) ESRD on hemodialysis: Status: Acute (3) COVID-19 virus infection: Status: Acute Plan 67M PMH anemia, hypertension, hyperlipidemia, hypothyroidism, ESRD on hemodialysis MWF here with Sepsis due to MSSA bacteremia Positive repeated cultures 07/21/23, permacath removed, follow up repeat cultures from 07/23/23, no vegetation on echo, plan for temp cath today On ancef COVID-19 infection manage symptomatically No hypoxia, no Remdesivir ESRD on Hemodialysis (MWF) MWF schedule Sevelamer TID with meals Continue Torsemide temp cath today Nephrology following Hypothyroidism Levothyroxine Hypertension Holding Losartan for hypotension Hyperlipidemia Atorvastatin DVT: SC Lovenox CODE STATUS: Full code reason for continued hospitalization:awaiting bacteremia clearance Quality Stroke Does the patient have a stroke diagnosis?: No VTE Prior VTE?: No VTE Risk Level:: Medical - moderate - high VTE Device Contraindication: Treatment Not Tolerated VTE Drug Contraindication: N/A - Med Ordered
--- NOTE | 2023-07-23 10:19 | HO.RADPN ---
RADIOLOGY Narrative Narrative: Procedure Note Right IJ 20 cm Bret placed using fluoro and US. Tip at cavoatrial junction. Ok for immediate use. Tanner GONZALES
--- NOTE | 2023-07-23 11:36 | MHC.SL.SWA ---
Speech Pathologist Impression: Oral phase dysphagia Risk of Aspiration Due to: Lethargy Dysphasia Diet Status: Continue on Ground Mechanical Altered with Thin liquids pills whole with liquid. Liquid Consistency and Strategies for Safe Swallow: Liquid Intake Recommendation: Thin Liquid Intake Strategies: Small Sips Solid Food Consistency: Dietary Recommendations: Grnd/Mech Altered (NDD2) Oral Medication Intake: Whole with Liquid Please contact the pharmacy regarding appropriate crushable or liquid drug formulations that are available whenever modified delivery is recommended. Compensatory Strategies and Precautions to be Taken for Safe Swallow: Sitting Upright (90 deg) Small Bites and Sips Alternate Liquids/Solids Rate of Ingestion Change Avoid Specific Foods Supervision While Eating and Drinking for Safe Swallow: Intermittent Supervision Swallowing Recommended Treatments: Compens. Strategy Educat. Recommendation for Speech: Inpatient Speech Therapy Upholsterer [employer] Clinican/Clinical Fellow: No Supervisory Statement: I have reviewed and agree with the student/clinical fellow's documentation: N/A Speech Language Pathologist: Yolanda Golden M.A., CCC-GAS ANALYST
[2023-07-23] MEDS: Acetaminophen 325 MG TABLET 650 MG PO (12:46)
--- NOTE | 2023-07-23 17:13 | PC.NURSE ---
Patient to dialysis at this time
--- NOTE | 2023-07-24 02:28 | PM.PNNEP ---
Subjective Subjective Date of Service: 07/23/23 Interval history: Seen and examiend, events noted Physical Exam Vital Signs: Vital Signs: Last Vital Signs Temp 99.7 F 07/23/23 23:45 Pulse 99 07/23/23 23:45 Resp 20 07/23/23 23:45 BP 129/61 07/23/23 23:45 Pulse Ox 92 07/23/23 23:45 O2 Del Method Room Air 07/23/23 23:45 O2 Flow Rate 2 07/21/23 16:00 BMI result Body Mass Index 35.1 Const: General: alert and awake HEENT: Head: Yes normocephalic and Yes atraumatic Neck: Neck: Yes supple Resp: Auscultation: diminished lung sounds Cardio: Heart sounds: S1 normal heart sound present and S2 normal heart sound present GI: Palpation (GI): Soft to palpation and nontender Extrem: General: Yes normal to inspection Objective Data Labs 07/21/23 06:28 07/23/23 13:23 Labs: Laboratory Results - last 24 hr 07/23/23 07/23/23 13:22 13:23 Hold Purple Top SEE NOTE PT 23.9 H D INR 2.0 H Sodium 131 L Potassium 4.3 Chloride 89 L Carbon Dioxide 21 L Anion Gap 25 H BUN 99 H Creatinine 12.41 H* Estim Creat Clear Calc 7.6 Estimated GFR 4 Random Glucose 183 H Calcium 7.9 L Microbiology Microbiology Results: Microbiology 07/21/23 10:26 Blood - Venous Blood Culture - Final Staphylococcus aureus 07/21/23 10:26 Blood - Venous Blood Culture - Final Staphylococcus aureus 07/20/23 14:23 Catheter Tip - Other Catheter Tip Culture - Final Staphylococcus aureus 07/19/23 07:54 Blood - Venous Blood Culture - Final Staphylococcus aureus 07/19/23 07:55 Blood - Venous Blood Culture - Final Staphylococcus aureus 07/18/23 14:34 Blood - Venous Blood Culture - Final Staphylococcus aureus 07/18/23 14:33 Blood - Venous Blood Culture - Final Staphylococcus aureus 07/17/23 22:36 Blood - Venous Blood Culture - Final Staphylococcus aureus 07/17/23 22:36 Blood - Venous Blood Culture - Final Procedures Date of Service Date of Service: 07/24/23 Assessment & Plan Assessment and plan (1) ESRD (end stage renal disease): Status: Acute (2) Bacteremia: Status: Acute (3) Anemia: Status: Acute (4) Aortic stenosis: Status: Acute Plan known ESRD on dialysis m-w- at [place] dialysis unit currently has AVF not mature and not usable-- outpt HD unit states AVF was scheduled to be reviesed and inpt HD RN tried to use earlier in the hosp and was unsuccessful d/t not mature enough MSSA bacteremia: lasy cult 07/21 still pos permacath removed on 07/19/23 nephrogenic anemia REC temp ( non-tunnelled cath) today and HD today will need 48 hours negative blood culture to place new dialysis tunnelled catheter ---will plan for Wednesday07/26/23 and HD as long as Bld cult -ve x 48 hrs c/w cefazolin as per ID renal diet phosphate binders KARISSA per protocol Time Spent With Patient Time: Total time managing care of this patient today ____ minutes. Progress Note: Quality Stroke Does the patient have a stroke diagnosis?: No
[2023-07-24 03:00] VITALS: BP 132/58; PULSE 84; RESP 20; TEMP 36.9; O2SAT 93
[2023-07-24 07:00] VITALS: BP 120/61; PULSE 84; RESP 18; TEMP 36.6; O2SAT 94
[2023-07-24] MEDS: Levothyroxine Sodium 75 MCG TABLET PO (07:31)
[2023-07-24 11:00] VITALS: BP 106/56; PULSE 89; RESP 18; TEMP 36.8; O2SAT 95
--- NOTE | 2023-07-24 11:24 | HO.PM.IMPN ---
Subjective Subjective Date of Service: 07/24/23 Interval History: no sob today Physical Exam Vital Signs: Vital Signs: Last Vital Signs Temp 98 F 07/24/23 07:00 Pulse 84 07/24/23 07:00 Resp 18 07/24/23 07:00 BP 120/61 07/24/23 07:00 Pulse Ox 94 07/24/23 07:00 O2 Del Method Room Air 07/24/23 07:00 O2 Flow Rate 2 07/21/23 16:00 BMI result Body Mass Index 35.1 Const: General: alert and awake HEENT: Head: Yes normocephalic and Yes atraumatic Neck: Neck: Yes supple Resp: Auscultation: diminished lung sounds Cardio: Heart sounds: S1 normal heart sound present and S2 normal heart sound present GI: Palpation (GI): Soft to palpation and nontender Extrem: General: Yes normal to inspection Objective Data Active Medications Acetaminophen (Acetaminophen 325 Mg Tablet) 650 mg PO Q6H PRN PRN Reason: Pain, Mild (Pain Scale 1-3) Last Admin: 07/23/23 12:46 Dose: 650 mg Documented By: VIKY Al Hydroxide/Mg Hydroxide (Magnesium Hydrox/Alum Hydrox 30 Ml Oral.Susp) 30 ml PO Q4H PRN PRN Reason: Heartburn/Nausea Calcium Carbonate (Calcium Carbonate 750 Mg Tab.Chew) 750 mg PO TID [facility] Last Admin: 07/24/23 08:48 Dose: Not Given Documented By: SATYA Non-Admin Reason: Patient Refused Docusate Sodium (Docusate Sodium 100 Mg Capsule) 100 mg PO BID [facility] Last Admin: 07/24/23 08:48 Dose: Not Given Documented By: SATYA Non-Admin Reason: Patient Refused Ergocalciferol (Ergocalciferol (Vitamin D2) 1,250 Mcg Capsule) 1,250 mcg PO FR@0900 [facility] Last Admin: 07/23/23 09:17 Dose: 1,250 mcg Documented By: EVANGELIST Heparin Sodium (Porcine) (Heparin Sodium,Porcine 5,000 Unit/Ml Vial) 5,000 unit SUBCUT Q8H [facility] Last Admin: 07/24/23 08:49 Dose: Not Given Documented By: SATYA Non-Admin Reason: Patient Refused Hydromorphone HCl (Hydromorphone Hcl 0.5 Mg/0.5 Ml Syringe) 0.5 mg IVPUSH Q4H PRN; Protocol PRN Reason: Pain, Severe (Pain Scale 7-10) Last Admin: 07/20/23 05:58 Dose: 0.5 mg Documented By: GARY Remdesivir 100 mg/ Sodium (Chloride) 230 mls @ 115 mls/hr IV Q24H [facility] Stop: 07/25/23 00:59 Last Infusion: 07/24/23 03:01 Dose: Infused Documented By: GARY Cefazolin Sodium/Dextrose (Ancef) 2 gm in 50 mls @ 100 mls/hr IV MoWeFr@1800 [facility] Last Infusion: 07/24/23 00:17 Dose: Infused Documented By: GARY Levothyroxine Sodium (Levothyroxine Sodium 75 Mcg Tablet) 75 mcg PO DAILY@0600 [facility] Last Admin: 07/24/23 07:31 Dose: 75 mcg Documented By: GARY Losartan Potassium (Losartan Potassium 50 Mg Tablet) 50 mg PO DAILY [facility]; Protocol Last Admin: 07/19/23 09:51 Dose: Not Given Documented By: BLANCHE Non-Admin Reason: Decreased Blood Pressure Melatonin (Melatonin 3 Mg Tablet) 6 mg PO BEDTIME PRN PRN Reason: Insomnia Last Admin: 07/21/23 20:24 Dose: 6 mg Documented By: RAMIRO Omeprazole (Omeprazole 40 Mg Capsule.Dr) 40 mg PO DAILY@0630 [facility] Last Admin: 07/24/23 07:31 Dose: 40 mg Documented By: GARY Ondansetron HCl (Ondansetron Hcl 4 Mg/2 Ml Vial) 4 mg IVPUSH Q8H PRN PRN Reason: Nausea and Vomiting Sertraline HCl (Sertraline Hcl 25 Mg Tablet) 25 mg PO DAILY [facility] Last Admin: 07/24/23 08:47 Dose: 25 mg Documented By: SAYTA Sevelamer Carbonate (Sevelamer Carbonate Powder 800 Mg Powd.Pack) 1,600 mg PO TIDWM [facility] Last Admin: 07/24/23 08:48 Dose: 1,600 mg Documented By: SATYA Sodium Chloride (0.9 % Sodium Chloride Flush 3 Ml Syringe) 3 ml IVFLUSH QSHIFT [facility] Last Admin: 07/24/23 08:51 Dose: 3 ml Documented By: SATYA Sodium Chloride (0.9 % Sodium Chloride Flush 3 Ml Syringe) [facility] Last Admin: 07/24/23 08:52 Dose: 3 ml Documented By: SATYA Torsemide (Torsemide 20 Mg Tablet) 40 mg PO BID@0900,1400 [facility]; Protocol Last Admin: 07/24/23 08:47 Dose: 40 mg Documented By: SATYA Labs 07/21/23 06:28 07/23/23 13:23 Labs: Laboratory Results - last 24 hr 07/23/23 07/23/23 13:22 13:23 Hold Purple Top SEE NOTE PT 23.9 H D INR 2.0 H Anion Gap 25 H Estim Creat Clear Calc 7.6 Estimated GFR 4 Random Glucose 183 H Calcium 7.9 L Microbiology Microbiology Results: Microbiology 07/21/23 10:26 Blood Culture - Final Blood - Venous Staphylococcus aureus 07/21/23 10:26 Blood Culture - Final Blood - Venous Staphylococcus aureus Assessment and Plan (1) Bacteremia due to Gram-positive bacteria: Status: Acute (2) ESRD on hemodialysis: Status: Acute (3) COVID-19 virus infection: Status: Acute Plan 67M PMH anemia, hypertension, hyperlipidemia, hypothyroidism, ESRD on hemodialysis MWF here with Sepsis due to MSSA bacteremia Positive repeated cultures 07/21/23, permacath removed, follow up repeat cultures from 07/23/23, no vegetation on echo, plan for temp cath today On ancef COVID-19 infection manage symptomatically No hypoxia, no Remdesivir ESRD on Hemodialysis (MWF) MWF schedule Sevelamer TID with meals Continue Torsemide s/p temp cath 07/23/23 Nephrology following Hypothyroidism Levothyroxine Hypertension Holding Losartan for hypotension Hyperlipidemia Atorvastatin DVT: SC Lovenox CODE STATUS: Full code reason for continued hospitalization:awaiting bacteremia clearance Quality Stroke Does the patient have a stroke diagnosis?: No VTE Prior VTE?: No VTE Risk Level:: Medical - moderate - high VTE Device Contraindication: Treatment Not Tolerated VTE Drug Contraindication: N/A - Med Ordered
[2023-07-24 15:00] VITALS: BP 126/58; PULSE 84; RESP 19; TEMP 36.5; O2SAT 93
[2023-07-24 19:00] VITALS: BP 119/60; PULSE 78; RESP 20; TEMP 36.5; O2SAT 96
[2023-07-24 23:00] VITALS: BP 118/58; PULSE 84; RESP 20; TEMP 37.3; O2SAT 96
[2023-07-25 03:00] VITALS: BP 123/61; PULSE 83; RESP 20; TEMP 36.6; O2SAT 95
[2023-07-25 07:00] VITALS: BP 120/57; PULSE 78; RESP 18; TEMP 36.4; O2SAT 96
[2023-07-25 09:23] LABS: Hematocrit 32.8 % (42.0-52.0); Mean Corpuscular HGB Conc 33.5 g/dl (31.0-36.0); Mean Corpuscular Hemoglobin 31.3 pg (27.0-33.0); Mean Corpuscular Volume 93.4 fL (80.0-98.0); Mean Platelet Volume 10.6 fL (9.4-12.4); Platelet Count 336 X10*3/uL (160-400); Red Blood Count 3.51 X10*6/uL (4.60-5.80); Red Cell Distribution Width 15.4 % (11.0-16.0)
[2023-07-25 09:45] LABS: Anion Gap 26 (12-20); Blood Urea Nitrogen 80 mg/dL (9-16); Calcium 8.3 mg/dL (8.4-10.2); Carbon Dioxide 20 mmol/L (22-29); Chloride 90 mmol/L (96-108); Glucose Fasting 276 mg/dL (60-99); Potassium 4.3 mmol/L (3.3-5.1); Sodium 132 mmol/L (135-145)
[2023-07-25 09:57] LABS: Creatinine Clr Calc Pharmacy 9.1; Estimated Glomerular Filt Rate 5
--- NOTE | 2023-07-25 10:04 | HO.PM.IMPN ---
Subjective Subjective Date of Service: 07/25/23 Interval History: no sob today Physical Exam Vital Signs: Vital Signs: Last Vital Signs Temp 97.6 F 07/25/23 07:00 Pulse 78 07/25/23 07:00 Resp 18 07/25/23 07:00 BP 120/57 L 07/25/23 07:00 Pulse Ox 96 07/25/23 07:00 O2 Del Method Room Air 07/25/23 07:00 O2 Flow Rate 2 07/21/23 16:00 BMI result Body Mass Index 35.1 Const: General: alert and awake HEENT: Head: Yes normocephalic and Yes atraumatic Neck: Neck: Yes supple Resp: Auscultation: diminished lung sounds Cardio: Heart sounds: S1 normal heart sound present and S2 normal heart sound present GI: Palpation (GI): Soft to palpation and nontender Extrem: General: Yes normal to inspection Objective Data Active Medications Acetaminophen (Acetaminophen 325 Mg Tablet) 650 mg PO Q6H PRN PRN Reason: Pain, Mild (Pain Scale 1-3) Last Admin: 07/23/23 12:46 Dose: 650 mg Documented By: VIKY Al Hydroxide/Mg Hydroxide (Magnesium Hydrox/Alum Hydrox 30 Ml Oral.Susp) 30 ml PO Q4H PRN PRN Reason: Heartburn/Nausea Calcium Carbonate (Calcium Carbonate 750 Mg Tab.Chew) 750 mg PO TID [facility] Last Admin: 07/24/23 20:06 Dose: 750 mg Documented By: GARY Docusate Sodium (Docusate Sodium 100 Mg Capsule) 100 mg PO BID [facility] Last Admin: 07/24/23 20:06 Dose: 100 mg Documented By: GARY Ergocalciferol (Ergocalciferol (Vitamin D2) 1,250 Mcg Capsule) 1,250 mcg PO FR@0900 [facility] Last Admin: 07/23/23 09:17 Dose: 1,250 mcg Documented By: EVANGELIST Guaifenesin (Guaifenesin 100 Mg/5 Ml Liquid) 5 ml PO Q6H PRN PRN Reason: Cough Last Admin: 07/24/23 17:31 Dose: 5 ml Documented By: SATYA Heparin Sodium (Porcine) (Heparin Sodium,Porcine 5,000 Unit/Ml Vial) 5,000 unit SUBCUT Q8H [facility] Last Admin: 07/25/23 06:14 Dose: 5,000 unit Documented By: GARY Hydromorphone HCl (Hydromorphone Hcl 0.5 Mg/0.5 Ml Syringe) 0.5 mg IVPUSH Q4H PRN; Protocol PRN Reason: Pain, Severe (Pain Scale 7-10) Last Admin: 07/20/23 05:58 Dose: 0.5 mg Documented By: GARY Cefazolin Sodium/Dextrose (Ancef) 2 gm in 50 mls @ 100 mls/hr IV MoWeFr@1800 [facility] Last Infusion: 07/24/23 00:17 Dose: Infused Documented By: GARY Levothyroxine Sodium (Levothyroxine Sodium 75 Mcg Tablet) 75 mcg PO DAILY@0600 [facility] Last Admin: 07/25/23 06:14 Dose: 75 mcg Documented By: GARY Losartan Potassium (Losartan Potassium 50 Mg Tablet) 50 mg PO DAILY [facility]; Protocol Last Admin: 07/19/23 09:51 Dose: Not Given Documented By: BLANCHE Non-Admin Reason: Decreased Blood Pressure Melatonin (Melatonin 3 Mg Tablet) 6 mg PO BEDTIME PRN PRN Reason: Insomnia Last Admin: 07/21/23 20:24 Dose: 6 mg Documented By: RAMIRO Omeprazole (Omeprazole 40 Mg Capsule.) 40 mg PO DAILY@0630 [facility] Last Admin: 07/25/23 06:14 Dose: 40 mg Documented By: GARY Ondansetron HCl (Ondansetron Hcl 4 Mg/2 Ml Vial) 4 mg IVPUSH Q8H PRN PRN Reason: Nausea and Vomiting Sertraline HCl (Sertraline Hcl 25 Mg Tablet) 25 mg PO DAILY [facility] Last Admin: 07/24/23 08:47 Dose: 25 mg Documented By: SATYA Sevelamer Carbonate (Sevelamer Carbonate Powder 800 Mg Powd.Pack) 1,600 mg PO TIDWM [facility] Last Admin: 07/24/23 17:11 Dose: 1,600 mg Documented By: SATYA Sodium Chloride (0.9 % Sodium Chloride Flush 3 Ml Syringe) 3 ml IVFLUSH QSHIFT [facility] Last Admin: 07/25/23 00:57 Dose: Not Given Documented By: GARY Non-Admin Reason: Previously Administered Sodium Chloride (0.9 % Sodium Chloride Flush 3 Ml Syringe) 3 ml IVFLUSH QSHIFT [facility] Last Admin: 07/25/23 00:57 Dose: Not Given Documented By: GARY Non-Admin Reason: Previously Administered Torsemide (Torsemide 20 Mg Tablet) 40 mg PO BID@0900,1400 [facility]; Protocol Last Admin: 07/24/23 12:44 Dose: 40 mg Documented By: SATYA Labs 07/25/23 08:39 07/25/23 08:39 Labs: Laboratory Results - last 24 hr 07/25/23 08:39 MCV 93.4 MCH 31.3 MCHC 33.5 RDW 15.4 Plt Count 336 D MPV 10.6 Absolute Nucleated RBC 0.000 Nucleated RBC % (auto) 0.0 Anion Gap 26 H Estim Creat Clear Calc 9.1 Estimated GFR 5 Fasting Glucose 276 H Calcium 8.3 L Microbiology Microbiology Results: Microbiology 07/23/23 13:22 Blood Culture - Preliminary Blood - Venous No growth after 24 hours. 07/23/23 13:22 Blood Culture - Preliminary Blood - Venous No growth after 24 hours. Assessment and Plan (1) Bacteremia due to Gram-positive bacteria: Status: Acute (2) ESRD on hemodialysis: Status: Acute (3) COVID-19 virus infection: Status: Acute Plan 67M PMH anemia, hypertension, hyperlipidemia, hypothyroidism, ESRD on hemodialysis MWF here with Sepsis due to MSSA bacteremia Positive repeated cultures 07/21/23, permacath removed, follow up repeat cultures from 07/23/23 (no growth to date), no vegetation on echo, s/p temp cath, if stay snegative will change back to permacath 07/26/23 On ancef COVID-19 infection manage symptomatically No hypoxia, no Remdesivir ESRD on Hemodialysis (MWF) MWF schedule Sevelamer TID with meals Continue Torsemide s/p temp cath 07/23/23 Nephrology following Hypothyroidism Levothyroxine Hypertension Holding Losartan for hypotension Hyperlipidemia Atorvastatin DVT: SC Lovenox CODE STATUS: Full code reason for continued hospitalization:awaiting bacteremia clearance Quality Stroke Does the patient have a stroke diagnosis?: No VTE Prior VTE?: No VTE Risk Level:: Medical - moderate - high VTE Device Contraindication: Treatment Not Tolerated VTE Drug Contraindication: N/A - Med Ordered
[2023-07-25 11:00] VITALS: BP 118/57; PULSE 79; RESP 18; TEMP 37.2; O2SAT 98
[2023-07-25 15:00] VITALS: BP 124/60; PULSE 81; RESP 18; TEMP 36.2; O2SAT 94
[2023-07-25 19:00] VITALS: BP 137/60; PULSE 83; RESP 20; TEMP 36.1; O2SAT 96
[2023-07-26 00:28] VITALS: BP 122/58; PULSE 83; RESP 18; TEMP 37; O2SAT 93
[2023-07-26 03:08] VITALS: BP 115/58; PULSE 78; RESP 20; TEMP 36.6; O2SAT 95
[2023-07-26 07:57] VITALS: BP 123/60; PULSE 77; RESP 18; TEMP 36.7; O2SAT 95
--- NOTE | 2023-07-26 09:15 | MHC.SLORD ---
Speech Language Pathology Order Status: Per Dr. Welch, pt is NPO for a procedure today. No PO trials given by SUPPLY TEACHER for that reason. Once pt is cleared for PO, recommend return to ground diet (NDD2) with thin liquids, continue aspiration precautions and periodic supervision.
--- NOTE | 2023-07-26 10:28 | HO.PM.IMPN ---
Subjective Subjective Date of Service: 07/26/23 Interval History: no sob today Physical Exam Vital Signs: Vital Signs: Last Vital Signs Temp 98.0 F 07/26/23 07:57 Pulse 77 07/26/23 07:57 Resp 18 07/26/23 07:57 BP 123/60 07/26/23 07:57 Pulse Ox 95 07/26/23 07:57 O2 Del Method Room Air 07/26/23 07:57 O2 Flow Rate 2 07/21/23 16:00 BMI result Body Mass Index 35.1 Const: General: alert and awake HEENT: Head: Yes normocephalic and Yes atraumatic Neck: Neck: Yes supple Resp: Auscultation: diminished lung sounds Cardio: Heart sounds: S1 normal heart sound present and S2 normal heart sound present GI: Palpation (GI): Soft to palpation and nontender Extrem: General: Yes normal to inspection Objective Data Active Medications Acetaminophen (Acetaminophen 325 Mg Tablet) 650 mg PO Q6H PRN PRN Reason: Pain, Mild (Pain Scale 1-3) Last Admin: 07/23/23 12:46 Dose: 650 mg Documented By: VIKY Al Hydroxide/Mg Hydroxide (Magnesium Hydrox/Alum Hydrox 30 Ml Oral.Susp) 30 ml PO Q4H PRN PRN Reason: Heartburn/Nausea Calcium Carbonate (Calcium Carbonate 750 Mg Tab.Chew) 750 mg PO TID [facility] Last Admin: 07/26/23 09:38 Dose: 750 mg Documented By: DWIGHT Docusate Sodium (Docusate Sodium 100 Mg Capsule) 100 mg PO BID [facility] Last Admin: 07/26/23 09:38 Dose: 100 mg Documented By: DWIGHT Ergocalciferol (Ergocalciferol (Vitamin D2) 1,250 Mcg Capsule) 1,250 mcg PO FR@0900 [facility] Last Admin: 07/23/23 09:17 Dose: 1,250 mcg Documented By: EVANGELIST Guaifenesin (Guaifenesin 100 Mg/5 Ml Liquid) 5 ml PO Q6H PRN PRN Reason: Cough Last Admin: 07/24/23 17:31 Dose: 5 ml Documented By: SATYA Heparin Sodium (Porcine) (Heparin Sodium,Porcine 5,000 Unit/Ml Vial) 5,000 unit SUBCUT Q8H [facility] [place] Last Admin: 07/26/23 09:38 Dose: 5,000 unit Documented By: DWIGHT Hydromorphone HCl (Hydromorphone Hcl 0.5 Mg/0.5 Ml Syringe) 0.5 mg IVPUSH Q4H PRN; Protocol PRN Reason: Pain, Severe (Pain Scale 7-10) Last Admin: 07/20/23 05:58 Dose: 0.5 mg Documented By: GARY Cefazolin Sodium/Dextrose (Ancef) 2 gm in 50 mls @ 100 mls/hr IV MoWeFr@1800 [facility] [place] Last Infusion: 07/24/23 00:17 Dose: Infused Documented By: GARY Levothyroxine Sodium (Levothyroxine Sodium 75 Mcg Tablet) 75 mcg PO DAILY@0600 [facility] [place] Last Admin: 07/26/23 06:06 Dose: Not Given Documented By: MARIAMA Non-Admin Reason: NPO Losartan Potassium (Losartan Potassium 50 Mg Tablet) 50 mg PO DAILY [facility]; Protocol Last Admin: 07/19/23 09:51 Dose: Not Given Documented By: BLANCHE Non-Admin Reason: Decreased Blood Pressure Melatonin (Melatonin 3 Mg Tablet) 6 mg PO BEDTIME PRN PRN Reason: Insomnia Last Admin: 07/21/23 20:24 Dose: 6 mg Documented By: RAMIRO Omeprazole (Omeprazole 40 Mg Capsule.Dr) 40 mg PO DAILY@0630 [facility] [place] Last Admin: 07/26/23 06:05 Dose: Not Given Documented By: MARIAMA Non-Admin Reason: NPO Ondansetron HCl (Ondansetron Hcl 4 Mg/2 Ml Vial) 4 mg IVPUSH Q8H PRN PRN Reason: Nausea and Vomiting Sertraline HCl (Sertraline Hcl 25 Mg Tablet) 25 mg PO DAILY [facility] [place] Last Admin: 07/26/23 09:37 Dose: 25 mg Documented By: DWIGHT Sevelamer Carbonate (Sevelamer Carbonate Powder 800 Mg Powd.Pack) 1,600 mg PO TIDWM [facility] [place] Last Admin: 07/26/23 09:37 Dose: 1,600 mg Documented By: DWIGHT Sodium Chloride (0.9 % Sodium Chloride Flush 3 Ml Syringe) 3 ml IVFLUSH QSHIFT [facility] Last Admin: 07/26/23 09:39 Dose: 3 ml Documented By: DWIGHT Sodium Chloride (0.9 % Sodium Chloride Flush 3 Ml Syringe) 3 ml IVFLUSH QSHIFT [facility] Last Admin: 07/26/23 09:39 Dose: Not Given Documented By: DWIGHT Non-Admin Reason: Duplicate Order Torsemide (Torsemide 20 Mg Tablet) 40 mg PO BID@0900,1400 [facility]; Protocol Last Admin: 07/26/23 09:37 Dose: 40 mg Documented By: DWIGHT Labs 07/25/23 08:39 07/25/23 08:39 Microbiology Microbiology Results: Microbiology 07/23/23 13:22 Blood Culture - Preliminary Blood - Venous No growth after 48 hours. 07/23/23 13:22 Blood Culture - Preliminary Blood - Venous No growth after 48 hours. Assessment and Plan (1) Bacteremia due to Gram-positive bacteria: Status: Acute (2) ESRD on hemodialysis: Status: Acute (3) COVID-19 virus infection: Status: Acute Plan 67M PMH anemia, hypertension, hyperlipidemia, hypothyroidism, ESRD on hemodialysis MWF here with Sepsis due to MSSA bacteremia Positive repeated cultures 07/21/23, permacath removed, follow up repeat cultures from 07/23/23 (no growth to date), no vegetation on echo, s/p temp cath, plan to change back to permacath 07/26/23 On ancef COVID-19 infection manage symptomatically No hypoxia, no Remdesivir ESRD on Hemodialysis (MWF) MWF schedule Sevelamer TID with meals Continue Torsemide s/p temp cath 07/23/23 Nephrology following Hypothyroidism Levothyroxine Hypertension Holding Losartan for hypotension Hyperlipidemia Atorvastatin DVT: SC Lovenox CODE STATUS: Full code reason for continued hospitalization:awaiting permacath Quality Stroke Does the patient have a stroke diagnosis?: No VTE Prior VTE?: No VTE Risk Level:: Medical - moderate - high VTE Device Contraindication: Treatment Not Tolerated VTE Drug Contraindication: N/A - Med Ordered
--- NOTE | 2023-07-26 10:38 | P.DS_ITS ---
DS: Providers Provider Date of Service: 07/27/23 Date of admission: 07/18/23 01:54 Primary care physician: Segundo Tapia MD Consults: 07/18/23 06:16 Consult to Nephrology Routine Consulting Provider: Davon Forte Reason for consultation: ESRD requires HD Has provider been notified: No 07/19/23 07:33 Consult to Infectious Diseases Routine Consulting Provider: [facility] Infectious Disease Reason for consultation: GPC bacteremia for your kind eval DS: Diagnosis Discharge Diagnosis (1) Bacteremia due to Gram-positive bacteria: Status: Acute (2) ESRD on hemodialysis: Status: Acute (3) COVID-19 virus infection: Status: Acute DS: Summary Hospital Course Hospital Course: from initial hpi: 67 year old obese white male with history of anemia, hypertension, hyperlipidemia, hypothyroidism, ESRD on hemodialysis MWF who presents to the emergency room complaining of being 'very sick' over the last couple of days. He is vague but complains of generalized malaise, subjective fevers and chills, and severe low back pain. He is currently very restless. He was feeling unwell yesterday hence the reason as to why he missed his hemodialysis yesterday. Initial work up done in the emergency room was notable for a positive COVID-19 infection and a mild leucocytosis of 12.0. Admission was requested for further care and for hemodialysis. hospital course: Patient was admitted for sepsis due to MSSA bacteremia due to infected PermCath. Patient has had multiple episodes of this due to scratching at PermCath site. He was treated with IV cefazolin and cultures clear 07/23/2023. He will continue 4 week course to end 08/19/2023. PermCath was replaced once cultures cleared, he will complete antibiotics at hemodialysis. For end-stage renal disease he was continued on sevelamer and hemodialysis. For hypothyroidism was continued on Synthroid. For hypertension losartan was held for relative hypotension can be restarted on discharge. For hyperlipidemia is continue on statin. For obesity weight loss recommended. Patient is feeling better will be discharged home. He has not interested in [facility] facility. Time Attestation Discharge coordination time: Greater than 30 minutes Quality: Safe Use of Opioids Does Pt have an Active Cancer Diagnosis on the Problem List?: No Quality: Stroke Does the patient have a stroke diagnosis?: No Physical Exam Vital Signs: Vital Signs: Last Vital Signs Temp 98.0 F 07/26/23 07:57 Pulse 77 07/26/23 07:57 Resp 18 07/26/23 07:57 BP 123/60 07/26/23 07:57 Pulse Ox 95 07/26/23 07:57 O2 Del Method Room Air 07/26/23 07:57 O2 Flow Rate 2 07/21/23 16:00 BMI result Body Mass Index 35.1 Const: General: alert and awake HEENT: Head: Yes normocephalic and Yes atraumatic Neck: Neck: Yes supple Resp: Auscultation: diminished lung sounds Cardio: Heart sounds: S1 normal heart sound present and S2 normal heart sound present GI: Palpation (GI): Soft to palpation and nontender Extrem: General: Yes normal to inspection DS: Data Data Completed and Pending Completed studies during hospitalization [Text1]: Procedures Drainage of Right Pleural Cavity with Drainage Device, Percutaneous Approach (10/28/22) Extraction of Right Inguinal Lymphatic, Percutaneous Approach, Diagnostic (04/23/20) Fluoroscopy of Superior Vena Cava, Guidance (10/28/22) Insertion of Infusion Device into Right Atrium, Percutaneous Approach (03/12/23) Insertion of Infusion Device into Superior Vena Cava, Percutaneous Approach (03/12/23) Insertion of Tunneled Vascular Access Device into Chest Subcutaneous Tissue and Fascia, Percutaneous Approach (03/12/23) Performance of Urinary Filtration, Intermittent, Less than 6 Hours Per Day (03/12/23) Removal of Infusion Device from Great Vessel, External Approach (10/28/22) Removal of Infusion Device from Great Vessel, Percutaneous Approach (03/12/23) Transfusion of Nonautologous Red Blood Cells into Peripheral Vein, Percutaneous Approach (03/12/23) Ultrasonography of Superior Vena Cava, Guidance (03/12/23) Labs on day of discharge: Preliminary micro results at discharge 07/23/23 13:22 Blood Culture - Preliminary Blood - Venous No growth after 48 hours. 07/23/23 13:22 Blood Culture - Preliminary Blood - Venous No growth after 48 hours. Discharge Plan Discharge Anticipated Discharge Date/Time: 07/26/23 10:34 Patient Disposition: Home Health Service Discharge Diagnosis: mssa bacteremia Referrals: Segundo Tapia MD [Primary Care Provider] - Discharge Medications: New cefazolin in dextrose (iso-os) 2 gram/50 mL Piggyback 50 ml IV MoWeFr@1800 Qty: 24 0RF Continued levothyroxine 75 mcg Tablet 75 mcg PO DAILY@0600 atorvastatin 40 mg tablet 40 mg PO DAILY sertraline 25 mg tablet 1 tab PO DAILY losartan 50 mg tablet 50 mg PO DAILY torsemide 20 mg tablet 40 mg PO BID@0900,1400 calcium carbonate [Ultra Strength Antacid] 400 mg calcium (1,000 mg) tablet,chewable 400 mg PO TID ergocalciferol (vitamin D2) 1,250 mcg (50,000 unit) capsule 1,250 mcg PO FR@0900 sevelamer carbonate 800 mg tablet 1,600 mg PO TID omeprazole 40 mg capsule,delayed release(DR/EC) 40 mg PO DAILY@0630 Discharge Orders: Discharge Order (Routine); Ordered 07/26/23 Ordered By: Paul Welch Diet: ground mech altered, thin Activity on Discharge: As tolerated Stand Alone Forms: Patient Portal Discharge page Care Plan Goals: recovery Health Concerns: bacteremia Plan of Treatment: ancef with HD, end aug 19 Assessment: see above Patient Instructions: COVID-19 (Coronavirus Disease 2019) (ED)
[2023-07-26 11:34] VITALS: BP 116/60; PULSE 75; RESP 20; TEMP 36.7; O2SAT 96
--- NOTE | 2023-07-26 17:36 | P.F2F_ITS ---
Service Date Service Date: 07/26/23 Encounter Date of encounter: 07/26/23 Reasons for Services Signs and symptoms assessed: weakness Reason for chcf: administration of IV, SQ, or IM injection, medication management, medication treatment and teach disease management Homebound: Leaving the home is medically contraindicated at this time without the asist of a device and/or another person due th the listed conditions above and below. Reason homebound: unsteady gait / fall risk Certification: Based on the above findings, I certify that this patient is confined to the home and needs intermittent chcf care, physical therapy and/or speech therapy, or continues to need occupational therapy. The patient is under my care, and I have initiated the establishment of the plan of care. The patient will be followed by a physician who will periodically review the plan of care. Time Spent With Patient Time: Total time managing care of this patient today ____ minutes.
[2023-07-26] MEDS: Torsemide 20 MG TABLET 40 MG PO (17:57)
[2023-07-26] MEDS: Heparin Sodium,Porcine 5,000 UNIT/ML VIAL 5000 UNIT SUBCUT (17:58)
[2023-07-26] MEDS: 0.9 % Sodium Chloride Flush 3 ML SYRINGE IVFLUSH ×3 (17:58→23:50)
--- NOTE | 2023-07-26 20:53 | PM.PNNEP ---
Subjective Subjective Date of Service: 07/26/23 Interval history: Feels OK Waiting to go for the [facility] Blood c/s -ve Physical Exam Vital Signs: Vital Signs: Last Vital Signs Temp 98.0 F 07/26/23 11:34 Pulse 75 07/26/23 11:34 Resp 20 07/26/23 11:34 BP 116/60 07/26/23 11:34 Pulse Ox 96 07/26/23 11:34 O2 Del Method Room Air 07/26/23 11:34 O2 Flow Rate 2 07/21/23 16:00 BMI result Body Mass Index 35.1 Const: General: alert and awake HEENT: Head: Yes normocephalic and Yes atraumatic Neck: Neck: Yes supple Resp: Auscultation: diminished lung sounds Cardio: Heart sounds: S1 normal heart sound present and S2 normal heart sound present GI: Palpation (GI): Soft to palpation and nontender Extrem: General: Yes normal to inspection Objective Data Labs 07/25/23 08:39 07/25/23 08:39 Microbiology Microbiology Results: Microbiology 07/23/23 13:22 Blood - Venous Blood Culture - Preliminary No growth after 48 hours. 07/23/23 13:22 Blood - Venous Blood Culture - Preliminary No growth after 48 hours. 07/21/23 10:26 Blood - Venous Blood Culture - Final Staphylococcus aureus 07/21/23 10:26 Blood - Venous Blood Culture - Final Staphylococcus aureus 07/20/23 14:23 Catheter Tip - Other Catheter Tip Culture - Final Staphylococcus aureus 07/19/23 07:54 Blood - Venous Blood Culture - Final Staphylococcus aureus 07/19/23 07:55 Blood - Venous Blood Culture - Final Staphylococcus aureus 07/18/23 14:34 Blood - Venous Blood Culture - Final Staphylococcus aureus 07/18/23 14:33 Blood - Venous Blood Culture - Final Staphylococcus aureus 07/17/23 22:36 Blood - Venous Blood Culture - Final Staphylococcus aureus 07/17/23 22:36 Blood - Venous Blood Culture - Final Procedures Date of Service Date of Service: 07/26/23 Assessment & Plan Assessment and plan (1) ESRD (end stage renal disease): Status: Acute (2) Bacteremia: Status: Acute (3) Anemia: Status: Acute (4) Aortic stenosis: Status: Acute Plan known ESRD on dialysis m-w-f at [facility] currently has AVF not mature and not usable-- outpt HD unit states AVF was scheduled to be reviesed and inpt HD RN tried to use earlier in the hosp and was unsuccessful d/t not mature enough MSSA bacteremia: [facility] 07/21 still pos permacath removed on 07/19/23 nephrogenic anemia REC s/p temp ( non-tunnelled cath) For Conversion to PC today HD in AM c/w cefazolin as per ID- Ordered for total 4 weeks as out pt ( Until end of this month ) renal diet phosphate binders KARISSA per protocol Time Spent With Patient Time: Total time managing care of this patient today ____ minutes. Progress Note: Quality Stroke Does the patient have a stroke diagnosis?: No
[2023-07-26] MEDS: ceFAZolin Sodium/Dextrose,Iso 2 GM/50 ML PIGGYBACK IV (23:00)
[2023-07-26 23:17] VITALS: BP 113/58; PULSE 98; RESP 17; TEMP 37.2; O2SAT 93
[2023-07-27 03:08] VITALS: BP 96/52; PULSE 85; RESP 19; TEMP 37.1; O2SAT 94
[2023-07-27] MEDS: Omeprazole 40 MG CAPSULE.DR PO (05:44)
[2023-07-27] MEDS: Levothyroxine Sodium 75 MCG TABLET PO (05:45)
[2023-07-27 08:00] VITALS: BP 105/59; PULSE 74; RESP 18; TEMP 36.4; O2SAT 92
== END 2023-07-27 09:35 | disposition home health service (06) | DRG 314 ==
LOC: HO.ED 07-18 01:01 → HO.EDOVER 07-18 02:54 → HO.IMC 07-18 12:00
PROVIDERS: Physician Assistant Surgical; Radiology Vascular & Interventional Radiology; Student in an Organized Health Care Education/Training Program; Admitting Provider Internal Medicine; Emergency Provider Emergency Medicine; PCP Internal Medicine; Visit Provider Internal Medicine
PROC: 0JH63XZ Insertion of Tunneled Vascular Access Device into Chest Subcutaneous Tissue and Fascia, Percutaneous Approach (ICD-10-PCS; principal; 2023-07-26 13:30)
DX: T80.211A Bloodstream infection due to central venous catheter, initial encounter (principal); A41.01 Sepsis due to Methicillin susceptible Staphylococcus aureus; N18.6 End stage renal disease; U07.1 COVID-19; I13.2 Hypertensive heart and chronic kidney disease with heart failure and with stage 5 chronic kidney disease, or end stage renal disease; I35.0 Nonrheumatic aortic (valve) stenosis; E66.9 Obesity, unspecified; Z99.2 Dependence on renal dialysis; D63.1 Anemia in chronic kidney disease; E03.9 Hypothyroidism, unspecified; E78.5 Hyperlipidemia, unspecified; I50.9 Heart failure, unspecified; Z95.2 Presence of prosthetic heart valve; Z68.35 Body mass index [BMI] 35.0-35.9, adult; Z87.891 Personal history of nicotine dependence; Z91.158 Patient's noncompliance with renal dialysis for other reason; Z88.0 Allergy status to penicillin; Z79.890 Hormone replacement therapy; Z79.899 Other long term (current) drug therapy
CPT/HCPCS: 0241U; 36415; 36556; 36558; 36589; 71045; 76937; 80048; 80053; 80202; 81001; 82565; 82947; 83605; 85025; 85027; 85610; 87040; 87071; 87077; 87147; 87186; 87205; 90999; 92526; 92610; 92950; 93308; 97162; 99285; C1750; C1752; C1769; J0248; J0690; J1170; J1644; J2270; J3370; Q9957

== ENCOUNTER 2023-07-18 01:54 | Outpatient (BNV) | payer MEDICARE, MEDICAID, SELFPAY | END 2023-07-20 07:24 | PROVIDERS: Admitting Provider Internal Medicine; Emergency Provider Emergency Medicine; PCP Internal Medicine; Visit Provider Radiology Diagnostic Radiology | DX: R78.81 Bacteremia (principal); B95.61 Methicillin susceptible Staphylococcus aureus infection as the cause of diseases classified elsewhere | CPT/HCPCS: 36589 ==

== ENCOUNTER 2023-07-18 01:54 | Outpatient (BNV) | payer MEDICARE, MEDICAID, SELFPAY | END 2023-07-26 16:08 | PROVIDERS: Admitting Provider Internal Medicine; Emergency Provider Emergency Medicine; PCP Internal Medicine; Visit Provider Radiology Vascular & Interventional Radiology | DX: N18.6 End stage renal disease (principal) | CPT/HCPCS: 36558; 76937 ==

== ENCOUNTER 2023-07-18 01:54 | Outpatient (BNV) | payer MEDICARE, MEDICAID, SELFPAY | END 2023-07-23 10:00 | PROVIDERS: Admitting Provider Internal Medicine; Emergency Provider Emergency Medicine; PCP Internal Medicine; Visit Provider Radiology Diagnostic Radiology | DX: N18.6 End stage renal disease (principal) | CPT/HCPCS: 36556; 76937; 77001 ==

== ENCOUNTER 2023-07-18 01:54 | Outpatient (BNV) | payer MEDICARE, MEDICAID, SELFPAY | END 2023-07-21 07:00 | PROVIDERS: Admitting Provider Internal Medicine; Emergency Provider Emergency Medicine; PCP Internal Medicine; Visit Provider Internal Medicine Cardiovascular Disease | DX: I35.0 Nonrheumatic aortic (valve) stenosis (principal); I34.0 Nonrheumatic mitral (valve) insufficiency; Z95.2 Presence of prosthetic heart valve | CPT/HCPCS: 93308 ==

== ENCOUNTER → 2023-07-18 01:54 | Outpatient (BNV) | payer MEDICARE, MEDICAID, SELFPAY | PROVIDERS: Admitting Provider Internal Medicine; Emergency Provider Emergency Medicine; PCP Internal Medicine; Visit Provider Internal Medicine | DX: R78.81 Bacteremia (principal); N18.6 End stage renal disease; Z99.2 Dependence on renal dialysis; U07.1 COVID-19 | CPT/HCPCS: 99223; 99232; 99233; 99239; 99499; G0180 ==

== ENCOUNTER → 2023-07-18 01:54 | Outpatient (BNV) | payer MEDICARE, MEDICAID, SELFPAY | PROVIDERS: Admitting Provider Internal Medicine; Emergency Provider Emergency Medicine; PCP Internal Medicine; Visit Provider Internal Medicine | DX: R78.81 Bacteremia (principal) | CPT/HCPCS: 99222 ==

== ENCOUNTER 2023-07-27 10:34 | Observation (INO) | payer MEDICARE, MEDICAID, SELFPAY ==
--- NOTE | ~2023-07-27 | XR_ITS ---
EXAMINATION: XR CHEST CLINICAL INFORMATION: Weakness. COMPARISON: Most recent chest radiograph dated 07/21/2023. TECHNIQUE: Frontal view of the chest was obtained. FINDINGS: Dual-lumen right-sided central venous catheter with the tip in the region of the distal SVC. Sternal wires and valvuloplasty are redemonstrated. Mild interstitial and pulmonary vascular prominence, similar when compared to the prior examination. Small right-sided pleural effusion with right basilar airspace opacities appears unchanged. No new left-sided airspace opacity. No left-sided effusion. No pneumothorax. XR/XR chest 1V IMPRESSION: 1. Interstitial and pulmonary vascular prominence with a small right-sided pleural effusion and right basilar airspace opacities, similar when compared to the prior examination. 2. Dual-lumen right-sided central venous catheter in appropriate position.
[2023-07-27 10:43] VITALS: BP 115/59; PULSE 78; RESP 19; TEMP 36.6; O2SAT 98; BMI 34.9
--- NOTE | 2023-07-27 19:17 | ED.GENADULT ---
HPI - General Adult General Chief complaint: General Medical Stated complaint: Seeking Rehab Time Seen by Provider: 07/27/23 19:16 Source: patient and RN notes reviewed Mode of arrival: ambulatory Limitations: no limitations History of Present Illness HPI narrative: This is a 67-year-old male with a history of anemia, hypertension, hyperlipidemia, hypothyroidism, ESRD on hemodialysis Wednesday, who presents emergency department for ongoing fatigue, requesting rehabilitation or hospital admission. He denies any headaches, fevers, chills, dizziness, chest pain, shortness breath, abdominal pain, nausea, vomiting or diarrhea. He states that he feels better than he felt 1 week ago when he was admitted but does not feel strong enough on his feet to go home. Patient was recent admitted for COVID and sepsis due to MSSA bacteremia due to infected PermCath. He had multiple episodes of this due to scratching at permcath site. The perm cath was replaced once cultures cleared, and was due to complete antibiotics at hemodialysis. He was discharged yesterday and was not interested in detention facility. He is now interested in rehab or detention facility. He had no changes in his medical status since his dispo which occurred this morning. MD complaint: Weakness Onset (ago): day(s) Radiation: non-radiation Quality: aching Pain Consistency: constant Relieving factors: none Exacerbating factors: none Associated symptoms: malaise Treatments prior to arrival: none Related Data Home Medications Medication Instructions Recorded Confirmed levothyroxine 75 mcg tablet 75 mcg PO DAILY@0600 06/27/20 07/27/23 atorvastatin 40 mg tablet 40 mg PO DAILY 02/10/22 07/27/23 sertraline 25 mg tablet 1 tab PO DAILY 10/03/22 07/27/23 calcium carbonate 400 mg calcium 400 mg PO TID 02/16/23 07/27/23 (1,000 mg) chewable tablet (Ultra Strength Antacid) ergocalciferol (vitamin D2) 1,250 1,250 mcg PO FR@0902/16/23 07/27/23 mcg (50,000 unit) capsule losartan 50 mg tablet 50 mg PO DAILY 02/16/23 07/27/23 sevelamer carbonate 800 mg tablet 1,600 mg PO TID 02/16/23 07/27/23 torsemide 20 mg tablet 40 mg PO BID@0900,1400 02/16/23 07/27/23 omeprazole 40 mg capsule,delayed 40 mg PO DAILY@0630 07/18/23 07/27/23 release Previous Rx's Medication Instructions Recorded cefazolin 2 gram/50 mL in dextrose 50 ml IV [id number] #24 ea 07/26/23 (iso-osmotic) intravenous piggyback Allergies Allergy/AdvReac Type Severity Reaction Status Date / Time Penicillins Allergy Unknown UNKWN Verified 07/27/23 10:43 Review of Systems Review of Systems: Yes all other systems are reviewed and are negative Constitutional: Constitutional: Reports as per [facility] Past Medical History Onset Date is defined in the Problem List Problems that require an onset date and time if occurred within 24 hrs of arrival to the ED Aortic Dissection and Rupture; Neurologic impairment; Cardiopulmonary Arrest; Endotracheal Intubation; Insertion or Replacement of Mechanical Circulatory Assist Device Medical History Anemia Staphylococcal pneumonia Pleural effusion Anasarca associated with disorder of kidney Congestive heart failure Membranous nephrosis Aortic stenosis 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 Social History Social History Household Members: None Housing: House Do you presently have visiting nurse or other home services: No Unable to assess alcohol history related to: Unknown Alcohol intake: never Comment: rings appropriately Patient Tobacco Use Status: Former Tobacco user Quit Date: 5 years ago Tobacco use type: Cigarette Years Smoked: 30 e-Cigarette/Vaping Use: Never Used Second Hand Smoke Exposure: No Advance Directives Date on File: 05/01/20 service: No Current occupational status: unemployed and disabled Physical Exam ED Vital Signs: Vital Signs - 24 hr 07/27/23 10:43 07/27/23 19:18 07/27/23 23:27 Temperature 98 F 98.2 F Pulse Rate 78 92 78 Respiratory Rate 19 14 20 Blood Pressure 115/59 L 104/57 L Pulse Oximetry 98 99 95 Oxygen Delivery Method Room Air Room Air Room Air BMI result Body Mass Index 34.9 Const General: cooperative, comfortable and no acute distress Nutritional Appearance: overweight Orientation/consciousness: patient oriented x3 Limitations: no limitations [facility] Head: Yes normal to inspection, Yes normocephalic and Yes atraumatic Ears: hearing grossly normal bilaterally General nose exam: Normal external nose present Face and sinus: Yes normal facial exam Mouth: Normal oral and palatal mucosa present, oropharynx normal and moist mucous membranes Throat: Yes posterior oropharynx normal Eyes General: appearance normal, both eyes and all related structures Eyelids: Yes eyelids normal Conjunctivae: conjunctivae normal Sclerae: sclerae normal Pupils: Equal, round and reactive pupils present EOM: EOMs intact bilaterally Neck Neck: Yes normal visual inspection, Yes full ROM and Yes no lymphadenopathy Lymphatic: no lymphadenopathy noted Chest Chest palpation & inspection: normal inspection of the chest Resp Effort & Inspection: normal respiratory effort and able to speak in complete sentences Auscultation: clear to auscultation bilaterally, no crackles, no rales, no rhonchi and no wheezes Cardio Rate: regular rate Rhythm: regular rhythm Heart sounds: S1 normal heart sound present and S2 normal heart sound present GI Inspection: Yes normal to inspection Skin General skin exam: no rashes or lesions noted Trauma: no lacerations or abrasions Wounds: no wounds Neuro General: patient oriented x3 and moves all extremities Cranial nerves: Yes Equal, round and reactive pupils present Extrem Other: No calf tenderness General: Yes normal to inspection Right upper extremity: normal to inspection Left upper extremity: normal to inspection Right lower extremity: normal to inspection Left lower extremity: normal to inspection Course Reevaluation(s) Reevaluation #1: Labs reviewed, mild leukocytosis at 13.1, chemistry with chloride at 92, anion gap 27, BUN 60, creatinine 10.02. Improved from last creatinine level of 10.38. Patient due for dialysis tomorrow, troponin 56.1, repeat 45.9. Chest x-ray shows interstitial pulmonary vascular prominence with a small right-sided pleural effusion and right basilar airspace opacities similar to previous, dual lumen right sided ventral venous catheter in appropriate position. Discussed case with my attending physician, Dr. Mann, who recommends hospitalization Time: 00:27 Reevaluation #2: Discussed case with Time: 01:40 Medications Administered Discontinued Medications Generic Name Dose Route Start Last Admin Trade Name Freq PRN Reason Stop Dose Admin Atorvastatin Calcium 40 mg 07/28/23 09:00 07/29/23 09:00 Atorvastatin Calcium 40 Mg Tablet PO 40 mg DAILY ROSALIA Administration Calcium Carbonate 750 mg 07/28/23 09:00 07/29/23 09:03 Calcium Carbonate 750 Mg Tab.Chew PO Not Given TID ROSALIA Docusate Sodium 100 mg 07/28/23 09:00 07/29/23 09:00 Docusate Sodium 100 Mg Capsule PO Not Given BID ROSALIA Heparin Sodium (Porcine) 5,000 unit 07/28/23 06:00 07/29/23 05:55 Heparin Sodium,Porcine 5,000 Unit/Ml Vial SUBCUT 5,000 unit Q8H ROSALIA Administration Cefazolin Sodium/Dextrose 2 gm in 50 mls @ 100 mls/hr 07/28/23 18:00 07/28/23 20:36 Ancef IV Infused [id number]@1800 ROSALIA Infusion Sodium Chloride 1,000 mls @ 999 mls/hr 07/28/23 16:00 07/28/23 20:39 Ns IV 07/28/23 17:00 Infused .Q1H1M ROSALIA Infusion Levothyroxine Sodium 75 mcg 07/28/23 06:00 07/29/23 05:55 Levothyroxine Sodium 75 Mcg Tablet PO 75 mcg DAILY@0600 ROSALIA Administration Losartan Potassium 50 mg 07/28/23 09:00 07/29/23 09:00 Losartan Potassium 50 Mg Tablet PO 50 mg DAILY ROSALIA Administration Protocol Omeprazole 40 mg 07/28/23 06:30 07/29/23 05:55 Omeprazole 40 Mg Capsule.Dr PO 40 mg DAILY@0630 ROSALIA Administration Sertraline HCl 25 mg 07/28/23 09:00 07/29/23 09:00 Sertraline Hcl 25 Mg Tablet PO 25 mg DAILY ROSALIA Administration Sevelamer Carbonate 1,600 mg 07/28/23 08:00 07/29/23 11:39 Sevelamer Carbonate Tablet 800 Mg Tablet PO 1,600 mg TIDWM ROSALIA Administration Sodium Chloride 3 ml 07/28/23 08:00 07/29/23 09:00 0.9 % Sodium Chloride Flush 3 Ml Syringe IVFLUSH 3 ml QSHIFT ROSALIA Administration Torsemide 40 mg 07/28/23 09:00 07/29/23 08:59 Torsemide 20 Mg Tablet PO 40 mg BID@0900,1400 ROSALIA Administration Protocol Medical Decision Making Medical Decision Making [facility] Narrative: This is a 67-year-old male, with a history of anemia, hypertension, hyperlipidemia, hypothyroidism, ESRD on hemodialysis MWF, presenting to the emergency department with complaints of ongoing weakness since previous hospitalization from 07/18-07/27. Patient was admitted due to MSSA bacteremia due to infected PermCath he also found to have COVID. He was treated with IV cefazolin and cultures were cleared on 07/23/2023. He was due to could continue 4 week course of antibiotics to end on August 19, 2023. He was discharged this morning after refusing detention facility or rehab and returned home, realizing that he should go to a detention facility/rehab given he feels as though he is 2 weeks to perform his activity of daily living. He denies any current pain, chest pain, shortness of breath, abdominal pain, nausea, vomiting or diarrhea. Endorsing ongoing weakness and tiredness which is been present since his hospitalization more than 1 ago. Plan: Labs, EKG, chest x-ray Differential Diagnosis Differential Diagnoses: The differential diagnosis associated with the presentation includes Weakness, dehydration, electrolyte abnormality, ACS-unlikely Lab Data [facility] Lab Attestation statement: I reviewed the patient's lab results. 07/27/23 20:15 07/27/23 20:15 Labs: Lab Results 07/27/23 07/27/23 Range/Units 20:15 23:18 WBC 13.1 H (4.8-10.8) X10*3/uL RBC 3.64 L (4.60-5.80) X10*6/uL Hgb 11.2 L (14.0-18.0) g/dl Hct 34.0 L (42.0-52.0) % MCV 93.4 (80.0-98.0) fL MCH 30.8 (27.0-33.0) pg MCHC 32.9 (31.0-36.0) g/dl RDW 15.3 (11.0-16.0) % Plt Count 385 (160-400) X10*3/uL MPV 9.4 (9.4-12.4) fL Immature Gran % (Auto) 3.8 H (0.0-0.4) % Neut % (Auto) 74.7 H (45-73) % Lymph % (Auto) 8.9 L (20-40) % Gallia % (Auto) 10.7 (2-11) % Eos % (Auto) 1.4 (0-4) % Baso % (Auto) 0.5 (0-2) % Lymph # (Auto) 1.2 (1.2-4.9) X10*3/uL Gallia # (Auto) 1.4 H (0.1-1.2) X10*3/uL Eos # (Auto) 0.2 (0.0-0.4) X10*3/uL Baso # (Auto) 0.1 (0.0-0.2) X10*3/uL Abs Immat Gran (auto) 0.50 H (0.00-0.03) X10*3/uL Absolute Neuts (auto) 9.8 H (2.0-8.3) x10*3/uL Absolute Nucleated RBC 0.000 (0.0-0.012) X10*3/uL Nucleated RBC % (auto) 0.0 (0.0-0.2) /100WBC Sodium 136 (135-145) mmol/L Potassium 4.8 (3.3-5.1) mmol/L Chloride 92 L (96-108) mmol/L Carbon Dioxide 22 (22-29) mmol/L Anion Gap 27 H (12-20) BUN 60 H (9-16) mg/dL Creatinine 10.02 H* (0.5-1.4) mg/dL Estim Creat Clear Calc 9.1 Estimated GFR 5 Random Glucose 181 H (60-115) mg/dL Calcium 9.0 D (8.4-10.2) mg/dL Magnesium 2.6 (1.6-2.6) mg/dL Total Bilirubin 0.2 (0.0-1.0) mg/dL Direct Bilirubin < 0.2 (0.0-0.5) mg/dL AST 13 (5-37) U/L ALT < 5 (0-40) U/L Alkaline Phosphatase 84 (39-117) U/L Troponin I High Sens 56.1 H D 45.9 H (<3.5-35.0) ng/L Total Protein 7.9 (6.5-8.0) g/dL Albumin 3.2 L (3.5-5.0) g/dL Influenza Type A (PCR) NEGATIVE (Negative) Influenza Type B (PCR) NEGATIVE (Negative) RSV RNA Qual (PCR) NEGATIVE (Negative) SARS-CoV-2 RNA (RT-PCR) POSITIVE A (Negative) Radiology Impression Discussion of test interpretation with radiology: I have reviewed the radiologist's reading. External Record Review External record reviewed: Inpatient record, Office record, Outpatient record, Prior outpatient labs, Prior outpatient radiology, Primary care record and Outside ED record Discharge Plan Discharge Clinical Impression: COVID-19 virus infection, ESRF (end stage renal failure) Patient Disposition: Admitted as Observation Interventions: Admission Worksheet (ED) Last Done: 07/28/23 08:02 Discharge Date/Time: 07/28/23 08:49
[2023-07-27 19:18] VITALS: PULSE 92; RESP 14; O2SAT 99
--- NOTE | 2023-07-27 19:30 | ECG_ITS ---
Test Reason : GENERAL MEDICAL Blood Pressure : / mmHG Vent. Rate : 083 BPM Atrial Rate : 083 BPM P-R Int : 310 ms QRS Dur : 102 ms QT Int : 398 ms P-R-T Axes : 034 008 012 degrees QTc Int : 467 ms Sinus rhythm with 1st degree A-V block Possible Left atrial enlargement Nonspecific ST abnormality Abnormal ECG When compared with ECG of 23-APR-2023 05:11, ND interval has increased ST now depressed in Anterior leads Nonspecific T wave abnormality now evident in Inferior leads Referred By: Mary Felix Electronically Signed By:OMER WAGNER MD
--- NOTE | 2023-07-27 19:49 | PHA.MEDREC ---
Pharmacy Consult ? Medication Reconciliation Pharmacy has completed the medication reconciliation. Patient just discharge from [facility] 07/27/22. Med rec completed by pharmacy general manager prior to that admission. Utilized discharge summary for med rec Damián ArzateD
[2023-07-27 20:22] LABS: MANUAL DIFF FLAG NO
[2023-07-27 20:26] LABS: Basophils Absolute Auto 0.1 X10*3/uL (0.0-0.2); Basophils Percent Auto 0.5 % (0-2); Eosinophils Absolute Auto 0.2 X10*3/uL (0.0-0.4); Eosinophils Percent Auto 1.4 % (0-4); Hemoglobin 11.2 g/dl (14.0-18.0); Imm Gran Pct Auto 3.8 % (0.0-0.4); Lymphocytes Absolute Auto 1.2 X10*3/uL (1.2-4.9); Lymphocytes Percent Auto 8.9 % (20-40); Mean Corpuscular HGB Conc 32.9 g/dl (31.0-36.0); Mean Corpuscular Hemoglobin 30.8 pg (27.0-33.0); Mean Corpuscular Volume 93.4 fL (80.0-98.0); Mean Platelet Volume 9.4 fL (9.4-12.4); Monocytes Absolute Auto 1.4 X10*3/uL (0.1-1.2); Monocytes Percent Auto 10.7 % (2-11); Neutrophils Absolute Auto 9.8 x10*3/uL (2.0-8.3); Neutrophils Percent Auto 74.7 % (45-73); Platelet Count 385 X10*3/uL (160-400); Red Blood Count 3.64 X10*6/uL (4.60-5.80); Red Cell Distribution Width 15.3 % (11.0-16.0); White Blood Count 13.1 X10*3/uL (4.8-10.8)
[2023-07-27 20:41] LABS: Alanine Aminotransferase < 5 U/L (0-40); Albumin Level 3.2 g/dL (3.5-5.0); Alkaline Phosphatase 84 U/L (39-117); Anion Gap 27 (12-20); Aspartate Amino Transferase 13 U/L (5-37); Bilirubin Direct < 0.2 mg/dL (0.0-0.5); Bilirubin Total 0.2 mg/dL (0.0-1.0); Blood Urea Nitrogen 60 mg/dL (9-16); Carbon Dioxide 22 mmol/L (22-29); Chloride 92 mmol/L (96-108); Creatinine Clr Calc Pharmacy 9.1; Estimated Glomerular Filt Rate 5; Glucose Random 181 mg/dL (60-115); Magnesium 2.6 mg/dL (1.6-2.6); Potassium 4.8 mmol/L (3.3-5.1); Sodium 136 mmol/L (135-145); Total Protein 7.9 g/dL (6.5-8.0)
[2023-07-27 20:43] LABS: Troponin-I High Sensitivity 56.1 ng/L (<3.5-35.0)
[2023-07-27 20:59] LABS: Influenza A PCR NEGATIVE (Negative); Influenza B PCR NEGATIVE (Negative); Resp Syncy Virus RNA Qual PCR NEGATIVE (Negative); SARS COV2 PCR INHOUSE POSITIVE (Negative)
[2023-07-27 23:27] VITALS: BP 104/57; PULSE 78; RESP 20; TEMP 36.8; O2SAT 95
[2023-07-27 23:54] LABS: Troponin-I High Sensitivity 45.9 ng/L (<3.5-35.0)
[2023-07-28] VITALS (8 sets, daily range): BP systolic 71–119; BP diastolic 32–60; PULSE 79–93; RESP 17–24; TEMP 36.6–37.4; O2SAT 92–95
--- NOTE | 2023-07-28 00:37 | PC.NURSE ---
repeat trop improved. nsr on monitor. pt denies cp/sob. resp even and unlabored. pt resting comfortably in stretcher call acharya within reach.
--- NOTE | 2023-07-28 02:32 | PM.IMHP ---
History of Present Illness Date of Service: 07/28/23 Attending physician on admission: Kirt Garcia Chief Complaint: Generalized weakness since he arrived home from hospital. Patient is a 67 year old obese (BMI 35) white male with history of anemia, hypertension, hyperlipidemia, hypothyroidism, ESRD on hemodialysis MWF and recent diagnosis of COVID-19 infection and MSSA bacteremia due to an infected PermCath (currently on Cefazolin administered three times a week after hemodialysis) who presents to the emergency room from home complaining of being very weak and unable to care for self. He was admitted to the hospital on Jul 18 2023 and discharged home on Jul 27 2023. During his hospital stay, he was diagnosed with COVID-19 infection and MSSA bacteremia (due to an infected PermCath) and he was sent home on IV Cefazolin to be administered after hemodialysis. He states that he lives at home alone and that his parents gave him a ride from the hospital earlier yesterday but that once he got home, he was unable to move/walk and so decided to get another ambulance back to hospital. Of note, he had been offered discharge to rehab facility but declined and instead decided to go home. Initial work up done tonight is unrevealing. 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 Surgical History H/O aortic valve replacement Social History Household Members: None Housing: Apartment Do you presently have visiting nurse or other home services: No Unable to assess alcohol history related to: Unknown Alcohol intake: never Comment: rings appropriately Patient Tobacco Use Status: Former Tobacco user Quit Date: 5 years ago Tobacco use type: Cigarette Years Smoked: 30 Smoked in Last 30 Days: No e-Cigarette/Vaping Use: Never Used Second Hand Smoke Exposure: No Use of substances other than those prescribed or required for medical reasons: No Advance Directives: No Advance Directives Information Provided: No Advance Directives Date on File: 05/01/20 service: No Current occupational status: unemployed and disabled Meds Allergies Allergy/AdvReac Type Severity Reaction Status Date / Time Penicillins Allergy Unknown UNKWN Verified 07/27/23 10:43 Home Medications Medication Instructions Recorded Confirmed Last Taken Type levothyroxine 75 mcg tablet 75 mcg PO DAILY@0600 06/27/20 07/27/23 3 Days Ago History ~07/15/23 atorvastatin 40 mg tablet 40 mg PO DAILY 02/10/22 07/27/23 3 Days Ago History ~07/15/23 sertraline 25 mg tablet 1 tab PO DAILY 10/03/22 07/27/23 3 Days Ago History ~07/15/23 calcium carbonate 400 mg calcium 400 mg PO TID 02/16/23 07/27/23 3 Days Ago History (1,000 mg) chewable tablet (Ultra ~07/15/23 Strength Antacid) ergocalciferol (vitamin D2) 1,250 1,250 mcg PO FR@0900 02/16/23 07/27/23 07/16/23 History mcg (50,000 unit) capsule losartan 50 mg tablet 50 mg PO DAILY 02/16/23 07/27/23 3 Days Ago History ~07/15/23 sevelamer carbonate 800 mg tablet 1,600 mg PO TID 02/16/23 07/27/23 3 Days Ago History ~07/15/23 torsemide 20 mg tablet 40 mg PO BID@0900,1400 02/16/23 07/27/23 3 Days Ago History ~07/15/23 omeprazole 40 mg capsule,delayed 40 mg PO DAILY@0630 07/18/23 07/27/23 3 Days Ago History release ~07/15/23 Physical Exam Vital Signs and Narrative: Vital Signs: Last Vital Signs Temp 98.2 F 07/27/23 23:27 Pulse 78 07/27/23 23:27 Resp 20 07/27/23 23:27 BP 104/57 L 07/27/23 23:27 Pulse Ox 95 07/27/23 23:27 O2 Del Method Room Air 07/27/23 23:27 BMI result Body Mass Index 34.9 General: Well nourished. Awake, alert and oriented x 4. No apparent distress Eyes: No pallor or jaundice. PERRLA, EOMI HENT: Moist oral mucus membranes. No oropharyngeal lesions. Neck: Supple. No cervical adenopathy. No JVD Cardiovascular: Regular rate and rhythm. Normal heart sounds. No murmurs, rubs or gallops. No JVD. No peripheral edema. Respiratory: Normal respiratory effort with no accessory muscle use. CTAB. Gastrointestinal: Abdomen is soft, non-tender, non-distended. NABS. No hepatosplenomegaly Extremities: No edema. No calf tenderness. Good peripheral pulses Skin: Warm/Dry. No rashes. No mottling. Capillary refill is < 2 seconds Neurological: AAOx4. Intact speech & cognition. Gait & balance not tested due to weakness. CN II - XII grossly intact but not individually tested. No motor or sensory deficits Hematologic: No bleeding. No ecchymosis. No swollen or tender lymph nodes. Psychiatric: Cooperative. Appropriate mood and affect. Results Labs 07/27/23 20:15 07/27/23 20:15 Labs: Laboratory Results - last 24 hr 07/27/23 20:15 MCV 93.4 MCH 30.8 MCHC 32.9 RDW 15.3 Plt Count 385 MPV 9.4 Immature Gran % (Auto) 3.8 H Neut % (Auto) 74.7 H Lymph % (Auto) 8.9 L [place] % (Auto) 10.7 Eos % (Auto) 1.4 Baso % (Auto) 0.5 Lymph # (Auto) 1.2 Ada # (Auto) 1.4 H Eos # (Auto) 0.2 Baso # (Auto) 0.1 Abs Immat Gran (auto) 0.50 H Absolute Neuts (auto) 9.8 H Absolute Nucleated RBC 0.000 Nucleated RBC % (auto) 0.0 Anion Gap 27 H Estim Creat Clear Calc 9.1 Estimated GFR 5 Random Glucose 181 H Calcium 9.0 D Magnesium 2.6 Total Bilirubin 0.2 Direct Bilirubin < 0.2 AST 13 ALT < 5 Alkaline Phosphatase 84 Total Protein 7.9 Albumin 3.2 L Influenza Type A (PCR) NEGATIVE Influenza Type B (PCR) NEGATIVE RSV RNA Qual (PCR) NEGATIVE SARS-CoV-2 RNA (RT-PCR) POSITIVE A ECG ECG interpretation date: 07/28/23 ECG interpretation time: 02:49 Prior ECG tracings: available for review Interpretation: NSR at 83 bpm with 1st degree AV block. No acute ischemic changes Imaging Radiologist's Impressions: Impressions Chest X-Ray 07/27/23 19:50 IMPRESSION: 1. Interstitial and pulmonary vascular prominence with a small right-sided pleural effusion and right basilar airspace opacities, similar when compared to the prior examination. 2. Dual-lumen right-sided central venous catheter in appropriate position. Assessment and Plan (1) Asthenia due to disease: Status: Acute (2) Adult failure to thrive: Status: Acute (3) ESRD on hemodialysis: Status: Acute (4) MSSA bacteremia: Status: Acute (5) Elevated troponin I level: Status: Acute Plan 67 year old obese (BMI 35) white male with history of anemia, hypertension, hyperlipidemia, hypothyroidism, ESRD on hemodialysis MWF here with 1. Asthenia - patient was discharged home earlier today after he declined offers for rehab placement - he however felt very weak once he got home and so decided to return to the ER - work up done so far is unrevealing - weakness is likely due to prolonged bed rest while hospitalized - admit, consult PT and case management for placement 2. ESRD on HD - he is on HD MWF - consult Nephrology ([facility] is aware) 3. MSSA Bacteremia - resume Cefazolin after HD 4. Elevated High Sensitivity Troponin I - at 56.1 ng/L and repeat at 45.9 ng/L - no chest pain or EKG changes to suggest ischemia - no further work up indicated 5. AFTT - patient is unable to care for self at home - will need STR until he is able to function well by himself again 6. Hypothyroidism - resume Levothyroxine 7. Hypertension - BP is soft - resume Losartan but closely monitor BP 8. Hyperlipidemia - resume Atorvastatin Total time managing care of this patient today: 55 minutes. Quality Stroke Does the patient have a stroke diagnosis?: No VTE Prior VTE?: No VTE Risk Level:: Medical - moderate - high VTE Device Contraindication: N/A - Device Ordered VTE Drug Contraindication: N/A - Med Ordered
--- NOTE | 2023-07-28 03:22 | PC.NURSE ---
Assumed care of pt. Report rewceived from SALOME Hannah. Pt lying on stretcher, conversant with this RN, no acute distress at this time. Planning for admission.
[2023-07-28] MEDS: Omeprazole 40 MG CAPSULE.DR PO (06:19)
[2023-07-28] MEDS: Heparin Sodium,Porcine 5,000 UNIT/ML VIAL 5000 UNIT SUBCUT ×2 (06:19→20:03)
[2023-07-28] MEDS: Levothyroxine Sodium 75 MCG TABLET PO (06:19)
--- NOTE | 2023-07-28 06:40 | PC.NURSE ---
This junior underwriter assumed care of this Pt at 0600. Pt A&Ox3, laying in stretcher, unsure about date. Pt denies any pain. Equal, non labored respirations, SpO2 94% on RA. Pt medicated per SEP.
[2023-07-28] MEDS: Sevelamer Carbonate Tablet 800 MG TABLET 1600 MG PO ×2 (07:48→17:22)
--- NOTE | 2023-07-28 08:08 | PC.NURSE ---
admission worksheet completed. transport notified at this time.
[2023-07-28] MEDS: Calcium Carbonate 750 MG TAB.CHEW PO ×3 (08:13→20:03)
[2023-07-28] MEDS: Torsemide 20 MG TABLET 40 MG PO ×2 (08:14→15:08)
[2023-07-28] MEDS: Atorvastatin Calcium 40 MG TABLET PO (08:14)
[2023-07-28] MEDS: Docusate Sodium 100 MG CAPSULE PO ×2 (08:14→20:03)
[2023-07-28] MEDS: Sertraline HCL 25 MG TABLET PO (08:14)
[2023-07-28] MEDS: Losartan Potassium 50 MG TABLET PO (08:14)
--- NOTE | 2023-07-28 08:17 | PC.NURSE ---
morning medication administered. pt awaiting transport upstairs at this time.
--- NOTE | 2023-07-28 09:33 | P.PNNP_ITS ---
Subjective Subjective Date of Service: 08/01/23 Interval history: Pt seen on HD Full consult to follow Physical Exam 2 Vital Signs: Vital Signs: Last Vital Signs Temp 97.9 F 07/28/23 08:00 Pulse 93 07/28/23 08:00 Resp 17 07/28/23 08:00 BP 112/60 07/28/23 08:00 Pulse Ox 92 07/28/23 08:00 O2 Del Method Room Air 07/28/23 08:00 BMI result Body Mass Index 34.9 Const: Other: Constitutional : Awake, interactive, not in distress Neck : Normal inspection, Supple Cardiovascular : RRR, no JVP, no lower extremity edema Respiratory : good bilateral air entry, no crackles, wheezes or rhonchi Gastrointestinal: soft, lax, Normal bowel sounds, Non tender Skin : Warm, Dry, Permacath in place with clear surrounding skin Neurological : Alert & oriented x3, No focal deficit Objective Data Labs 07/27/23 20:15 07/27/23 20:15 Labs: Laboratory Results - last 24 hr 07/27/23 07/27/23 20:15 23:18 WBC 13.1 H RBC 3.64 L Hgb 11.2 L Hct 34.0 L MCV 93.4 MCH 30.8 MCHC 32.9 RDW 15.3 Plt Count 385 MPV 9.4 Immature Gran % (Auto) 3.8 H Neut % (Auto) 74.7 H Lymph % (Auto) 8.9 L [place] % (Auto) 10.7 Eos % (Auto) 1.4 Baso % (Auto) 0.5 Lymph # (Auto) 1.2 [place] # (Auto) 1.4 H Eos # (Auto) 0.2 Baso # (Auto) 0.1 Abs Immat Gran (auto) 0.50 H Absolute Neuts (auto) 9.8 H Absolute Nucleated RBC 0.000 Nucleated RBC % (auto) 0.0 Sodium 136 Potassium 4.8 Chloride 92 L Carbon Dioxide 22 Anion Gap 27 H BUN 60 H Creatinine 10.02 H* Estim Creat Clear Calc 9.1 Estimated GFR 5 Random Glucose 181 H Calcium 9.0 D Magnesium 2.6 Total Bilirubin 0.2 Direct Bilirubin < 0.2 AST 13 ALT < 5 Alkaline Phosphatase 84 Troponin I High Sens 56.1 H D 45.9 H Total Protein 7.9 Albumin 3.2 L Influenza Type A (PCR) NEGATIVE Influenza Type B (PCR) NEGATIVE RSV RNA Qual (PCR) NEGATIVE SARS-CoV-2 RNA (RT-PCR) POSITIVE A Procedures Date of Service Date of Service: 08/01/23 Assessment & Plan Assessment and plan (1) ESRD (end stage renal disease): Status: Acute (2) Bacteremia: Status: Acute (3) Anemia: Status: Acute (4) Aortic stenosis: Status: Acute Plan known ESRD on dialysis m-w- at [place] dialysis unit currently has AVF not mature and not usable-- outpt HD unit states AVF was scheduled to be reviesed and inpt HD RN tried to use earlier in the hosp and was unsuccessful d/t not mature enough MSSA bacteremia: lasy cult 07/21 still pos permacath removed on 07/19/23 nephrogenic anemia REC s/p temp ( non-tunnelled cath) For Conversion to PC today HD in AM c/w cefazolin as per ID- Ordered for total 4 weeks as out pt ( Until end of this month ) renal diet phosphate binders KARISSA per protocol Time Spent With Patient Time: Total time managing care of this patient today ____ minutes. Progress Note: Quality Stroke Does the patient have a stroke diagnosis?: No
--- NOTE | 2023-07-28 11:04 | PM.EVENT ---
Event Note Date of Service: 07/28/23 Event Note: Seen and evaluated while in dialysis Denies any fever or chills reports feeling weak overall PT evaluation to start looking for SNF stay. Time Spent With Patient Time: Total time managing care of this patient today ____ minutes.
--- NOTE | 2023-07-28 11:46 | MHC.CM.PN ---
MARILU 07/28. Pt lives at home alone, self-care, uses a walker and wheelchair, and has homemaking services. Pts elderly parents involved. Pt goes to [facility] for [facility] . HCP completed with pt, now on file. Per hospitalist, pt will need STR, PT eval pending. This CM spoke with pt who is in agreement with going to STR, referral placed for [facility]. Transport via [facility]. PCP: Dr. sharon Tapia
--- NOTE | 2023-07-28 11:49 | MHC.CM.PN ---
MARILU 07/28. Pt lives at home alone, self-care, uses a walker and wheelchair, and has homemaking services. Pts elderly parents involved. Pt goes to [facility] for dialysis . HCP completed with pt, now on file. Per hospitalist, pt will need STR, PT eval pending. This CM spoke with pt who is in agreement with going to STR, referral placed to [facility]. Transport via [facility]. PCP: Dr. Segundo Tapia
[2023-07-28] MEDS: 0.9 % Sodium Chloride 1,000 ML 999 ML IV (17:22)
--- NOTE | 2023-07-28 19:29 | PC.NURSE ---
Pt arrived from ED this am slide to bed. A&OX4. MC to command 4/5 generalized weakness per pt unable to help self with movement although able to stand at bedside with 2 person assist. LSCTA occasional dry hacking cough. BS+X4 abdomen soft non-tender denies nausea/vomiting. Out of room to dialysis upon arrival to unit until 1400. Pressure sift 74/32 at 1530, Dr Leach notified. IV access eventually obtained bolus given per order. Dressing to right chest dialysis line intact changed at dialysis. Will continue to monitor and report changes
[2023-07-28] MEDS: ceFAZolin Sodium/Dextrose,Iso 2 GM/50 ML PIGGYBACK IV (20:03)
[2023-07-28] MEDS: 0.9 % Sodium Chloride Flush 3 ML SYRINGE IVFLUSH (20:04)
[2023-07-29 03:56] VITALS: BP 111/56; PULSE 82; RESP 18; TEMP 37.1; O2SAT 96
[2023-07-29] MEDS: Levothyroxine Sodium 75 MCG TABLET PO (05:55)
[2023-07-29] MEDS: Omeprazole 40 MG CAPSULE.DR PO (05:55)
[2023-07-29] MEDS: Heparin Sodium,Porcine 5,000 UNIT/ML VIAL 5000 UNIT SUBCUT (05:55)
[2023-07-29 08:00] VITALS: BP 113/56; PULSE 72; RESP 18; TEMP 36.6; O2SAT 94
[2023-07-29] MEDS: Torsemide 20 MG TABLET 40 MG PO (08:59)
[2023-07-29] MEDS: 0.9 % Sodium Chloride Flush 3 ML SYRINGE IVFLUSH (09:00)
[2023-07-29] MEDS: Sertraline HCL 25 MG TABLET PO (09:00)
[2023-07-29] MEDS: Atorvastatin Calcium 40 MG TABLET PO (09:00)
[2023-07-29] MEDS: Losartan Potassium 50 MG TABLET PO (09:00)
[2023-07-29] MEDS: Sevelamer Carbonate Tablet 800 MG TABLET 1600 MG PO ×2 (09:00→11:39)
--- NOTE | 2023-07-29 10:51 | PM.DS ---
DS: Providers Provider Date of Service: 07/29/23 Date of admission: 07/28/23 02:25 Primary care physician: Segundo Tapia MD Consults: 07/28/23 03:22 Consult to Nephrology Routine Consulting Provider: Tone Russo Reason for consultation: ESRD on HD Has provider been notified: Yes DS: Diagnosis Discharge Diagnosis (1) Asthenia due to disease: Status: Acute (2) Adult failure to thrive: Status: Acute (3) ESRD on hemodialysis: Status: Acute (4) MSSA bacteremia: Status: Acute (5) Elevated troponin I level: Status: Acute DS: Summary Hospital Course Hospital Course: Admission note HPI Patient is a 67 year old obese (BMI 35) white male with history of anemia, hypertension, hyperlipidemia, hypothyroidism, ESRD on hemodialysis MWF and recent diagnosis of COVID-19 infection and MSSA bacteremia due to an infected PermCath (currently on Cefazolin administered three times a week after hemodialysis) who presents to the emergency room from home complaining of being very weak and unable to care for self. He was admitted to the hospital on Jul 18 2023 and discharged home on Jul 27 2023. During his hospital stay, he was diagnosed with COVID-19 infection and MSSA bacteremia (due to an infected PermCath) and he was sent home on IV Cefazolin to be administered after hemodialysis. He states that he lives at home alone and that his parents gave him a ride from the hospital earlier yesterday but that once he got home, he was unable to move/walk and so decided to get another ambulance back to hospital. Of note, he had been offered discharge to rehab facility but declined and instead decided to go home. Initial work up done tonight is unrevealing. Hospital course The patient was evaluated for physical deconditioning as he was evaluated by PT who recommended STR. Continued his dialysis as scheduled MWF along with Antibiotic post HD in the dialysis unit. To continue 4 week course to end 08/19/2023 with Cefazolin for Hx of recent MSSA Bacteremia. Continue Antibiotics after dialysis sessions Monitor fluid intake Increase physical activity at rehablitation center Time Attestation Discharge coordination time: Greater than 30 minutes Quality: Safe Use of Opioids Does Pt have an Active Cancer Diagnosis on the Problem List?: No Quality: Stroke Does the patient have a stroke diagnosis?: No Physical Exam Vital Signs: Vital Signs: Last Vital Signs Temp 97.9 F 07/29/23 08:00 Pulse 72 07/29/23 08:00 Resp 18 07/29/23 08:00 BP 113/56 L 07/29/23 08:00 Pulse Ox 94 07/29/23 08:00 O2 Del Method Room Air 07/29/23 08:00 BMI result Body Mass Index 34.9 Const: Other: Constitutional : Awake, interactive, not in distress Neck : Normal inspection, Supple Cardiovascular : RRR, no JVP, no lower extremity edema Respiratory : good bilateral air entry, no crackles, wheezes or rhonchi Gastrointestinal: soft, lax, Normal bowel sounds, Non tender Skin : Warm, Dry, Permacath in place with clear surrounding skin Neurological : Alert & oriented x3, No focal deficit DS: Data Data Completed and Pending Completed studies during hospitalization [Text1]: Procedures Drainage of Right Pleural Cavity with Drainage Device, Percutaneous Approach (10/28/22) Extraction of Right Inguinal Lymphatic, Percutaneous Approach, Diagnostic (04/23/20) Fluoroscopy of Superior Vena Cava, Guidance (10/28/22) Insertion of Infusion Device into Right Atrium, Percutaneous Approach (03/12/23) Insertion of Infusion Device into Superior Vena Cava, Percutaneous Approach (03/12/23) Insertion of Tunneled Vascular Access Device into Chest Subcutaneous Tissue and Fascia, Percutaneous Approach (03/12/23) Performance of Urinary Filtration, Intermittent, Less than 6 Hours Per Day (03/12/23) Removal of Infusion Device from Great Vessel, External Approach (10/28/22) Removal of Infusion Device from [place] Vessel, Percutaneous Approach (03/12/23) Transfusion of Nonautologous Red Blood Cells into Peripheral Vein, Percutaneous Approach (03/12/23) Ultrasonography of Superior Vena Cava, Guidance (03/12/23) Imaging Chest x-ray: Radiologist's impression: ITS Impressions Chest X-Ray 07/27/23 19:50 IMPRESSION: 1. Interstitial and pulmonary vascular prominence with a small right-sided pleural effusion and right basilar airspace opacities, similar when compared to the prior examination. 2. Dual-lumen right-sided central venous catheter in appropriate position. Discharge Plan Discharge Anticipated Discharge Date/Time: 07/29/23 10:49 Patient Disposition: [facility] Discharge Diagnosis: Physical deconditioning Referrals: [facility] [Outside] - 1 Week Segundo Tapia MD [Primary Care Provider] - 1 Week Discharge Medications: Continued levothyroxine 75 mcg Tablet 75 mcg PO DAILY@0600 atorvastatin 40 mg tablet 40 mg PO DAILY sertraline 25 mg tablet 1 tab PO DAILY losartan 50 mg tablet 50 mg PO DAILY torsemide 20 mg tablet 40 mg PO BID@0900,1400 calcium carbonate [Ultra Strength Antacid] 400 mg calcium (1,000 mg) tablet,chewable 400 mg PO TID ergocalciferol (vitamin D2) 1,250 mcg (50,000 unit) capsule 1,250 mcg PO FR@0900 sevelamer carbonate 800 mg tablet 1,600 mg PO TID omeprazole 40 mg capsule,delayed release(DR/EC) 40 mg PO DAILY@0630 cefazolin in dextrose (iso-os) 2 gram/50 mL Piggyback 50 ml IV MoWeFr@1800 Qty: 24 0RF Discharge Orders: Discharge Order (Routine); Ordered 07/29/23 Ordered By: Ileana Leach Diet: Advance to usual diet Activity on Discharge: As tolerated Stand Alone Forms: Patient Portal Discharge page Care Plan Goals: Read below Health Concerns: Read below Plan of Treatment: Read below Assessment: Continue Antibiotics after dialysis sessions Monitor fluid intake Increase physical activity at rehablitation center
--- NOTE | 2023-07-29 10:52 | MHC.CM.PN ---
Pt has been medically cleared for DC. He will transfer today to [facility] for [facility] and he will get his hemodialysis there.
--- NOTE | 2023-07-29 11:49 | MHC.CM.PN ---
Received request for clinical information from [facility]: information faxed to number provided in anticipation of pt's start of service at [facility].
[2023-07-29 11:57] VITALS: BP 105/54; PULSE 76; RESP 20; TEMP 36.4; O2SAT 95
== END 2023-07-29 13:45 | disposition skilled nursing facility (03) ==
LOC: HO.ED 19:19 → HO.EDOVER 07-28 02:34 → HO.IMC 07-28 07:52
PROVIDERS: Physician Assistant Medical; Admitting Provider Internal Medicine; Emergency Provider Emergency Medicine; PCP Internal Medicine; Visit Provider Student in an Organized Health Care Education/Training Program
DX: R78.81 Bacteremia (principal); A49.01 Methicillin susceptible Staphylococcus aureus infection, unspecified site; U07.1 COVID-19; R62.7 Adult failure to thrive; R53.1 Weakness; E13.22 Other specified diabetes mellitus with diabetic chronic kidney disease; I13.2 Hypertensive heart and chronic kidney disease with heart failure and with stage 5 chronic kidney disease, or end stage renal disease; I50.9 Heart failure, unspecified; N18.6 End stage renal disease; Z99.2 Dependence on renal dialysis; E03.9 Hypothyroidism, unspecified; D64.9 Anemia, unspecified; E78.5 Hyperlipidemia, unspecified; R79.89 Other specified abnormal findings of blood chemistry; Z68.34 Body mass index [BMI] 34.0-34.9, adult
CPT/HCPCS: 0241U; 36415; 71045; 80048; 80076; 83735; 84484; 85025; 90999; 93005; 96361; 96365; 96372; 97162; 99222; 99285; J0690; J1644

== ENCOUNTER → 2023-07-27 19:30 | Outpatient (BNV) | payer MEDICARE, MEDICAID, SELFPAY | PROVIDERS: Admitting Provider Internal Medicine; Emergency Provider Emergency Medicine; PCP Internal Medicine; Visit Provider Internal Medicine Cardiovascular Disease | DX: I44.0 Atrioventricular block, first degree (principal) | CPT/HCPCS: 93010 ==

== ENCOUNTER → 2023-07-28 02:25 | Outpatient (BNV) | payer MEDICARE, MEDICAID, SELFPAY | PROVIDERS: Admitting Provider Internal Medicine; Emergency Provider Emergency Medicine; PCP Internal Medicine; Visit Provider Internal Medicine | DX: N18.6 End stage renal disease (principal); Z99.2 Dependence on renal dialysis; R53.1 Weakness; R62.7 Adult failure to thrive; R78.81 Bacteremia; B95.61 Methicillin susceptible Staphylococcus aureus infection as the cause of diseases classified elsewhere; R79.89 Other specified abnormal findings of blood chemistry | CPT/HCPCS: 99223; 99239; 99499 ==

== ENCOUNTER 2023-08-19 10:00 | Inpatient (IN) | payer MEDICARE, MEDICAID, SELFPAY ==
[2023-08-19] VITALS (8 sets, daily range): BP systolic 113–140; BP diastolic 53–64; PULSE 80–94; RESP 18–23; TEMP 36.3–37; O2SAT 93–98; BMI 32.7; BMI 31.4
--- NOTE | ~2023-08-19 | XR_ITS ---
EXAMINATION: XR CHEST CLINICAL INFORMATION: Chest pain COMPARISON: Chest 07/27/2023 TECHNIQUE: Frontal view of the chest was obtained. FINDINGS: The right lung is expanded with platelike atelectasis. The left lung is expanded and clear. The heart size and pulmonary vascularity is normal. There is aortic valve prosthesis. The right jugular central line dialysis catheter tip is in mid SVC. No gross bony abnormality seen. XR/XR chest 1V IMPRESSION: 1. Platelike atelectasis right lung base. 2. Right jugular dialysis catheter tip is in mid SVC.
--- NOTE | 2023-08-19 10:12 | PC.NURSE ---
Patient olesya was discharged from [facility] yesterday. Is a dialysis patient who has been receiving dialysis x 1 year. Reports is weak and unable to ambulate d/t chronic leg pain. States unsafe at home because he cant take care of himself and thinks he needs LTC. Reports had blood in stool this morning, denies hemmoroids
--- NOTE | 2023-08-19 13:24 | ECG_ITS ---
Test Reason : WEAKNESS Blood Pressure : / mmHG Vent. Rate : 077 BPM Atrial Rate : 077 BPM P-R Int : 218 ms QRS Dur : 100 ms QT Int : 380 ms P-R-T Axes : 065 012 035 degrees QTc Int : 430 ms Sinus rhythm with 1st degree A-V block Otherwise normal ECG When compared with ECG of 27-JUL-2023 20:40, No significant change was found Referred By: Romina Arrington Electronically Signed By:OMER WAGNER MD
--- NOTE | 2023-08-19 13:26 | ED_ITS ---
HPI - Weakness General Chief complaint: Weakness Stated complaint: BLE PAIN PAIN W/DIF AMB,WEAK,RECENT D/C FROM REHAB Time Seen by Provider: 08/19/23 13:08 History of Present Illness HPI Narrative: Patient is a 67-year-old male with a history anemia, hypertension, hyperlipidemia, hypothyroid, end-stage renal disease on dialysis Wednesday. Patient claims that he got dialysis yesterday. Just got discharged from rehab yesterday. Now complaining of generalized malaise weakness. Patient stated that he wants to go back to rehab. He denies having any chest pain. There has no fever no chills. He noticed some blood mixed with stool yesterday. Patient denies any coughing congestion. He has been admitted previously for COVID and sepsis secondary to MSSA bacteremia secondary to a PermCath infection. Patient recently just had a shunt put in. Denies any abdominal pain. There is no fever. There has no new leg swelling. Patient claims he has chronic leg pain has not changed. He feels generally very weak. Very tired. He has not vomiting. Positive decreased appetite. No abdominal pain Related Data Home Medications Medication Instructions Recorded Confirmed levothyroxine 75 mcg tablet 75 mcg PO DAILY@0600 06/27/20 07/27/23 atorvastatin 40 mg tablet 40 mg PO DAILY 02/10/22 07/27/23 sertraline 25 mg tablet 1 tab PO DAILY 10/03/22 07/27/23 calcium carbonate 400 mg calcium 400 mg PO TID 02/16/23 07/27/23 (1,000 mg) chewable tablet (Ultra Strength Antacid) ergocalciferol (vitamin D2) 1,250 1,250 mcg PO FR@0900 02/16/23 07/27/23 mcg (50,000 unit) capsule losartan 50 mg tablet 50 mg PO DAILY 02/16/23 07/27/23 sevelamer carbonate 800 mg tablet 1,600 mg PO TID 02/16/23 07/27/23 torsemide 20 mg tablet 40 mg PO BID@0900,1400 02/16/23 07/27/23 omeprazole 40 mg capsule,delayed 40 mg PO DAILY@0630 07/18/23 07/27/23 release Previous Rx's Medication Instructions Recorded cefazolin 2 gram/50 mL in dextrose 50 ml IV MoWeFr@1800 #24 ea 07/26/23 (iso-osmotic) intravenous piggyback Allergies Allergy/AdvReac Type Severity Reaction Status Date / Time Penicillins Allergy Unknown UNKWN Verified 07/27/23 10:43 Review of Systems 2 Review of Systems: Positive generalized malaise weakness Yes all other systems are reviewed and are negative [facility] Past Medical History Attestation statement: The following information was validated with the patient. 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 Social History Social History Household Members: None Housing: House Do you presently have visiting nurse or other home services: No Unable to assess alcohol history related to: Unknown Alcohol intake: former Comment: rings appropriately Patient Tobacco Use Status: Former Tobacco user Quit Date: 5 years ago Tobacco use type: Cigarette Years Smoked: 30 Smoked in Last 30 Days: No e-Cigarette/Vaping Use: Never Used Second Hand Smoke Exposure: No Use of substances other than those prescribed or required for medical reasons: No Advance Directives: Yes Advance Directives on File: Yes Advance Directives Date on File: 07/30/23 service: No Current occupational status: unemployed and disabled Physical Exam 2 Vital Signs: Vital Signs: Last Vital Signs Temp 98.3 F 08/19/23 15:30 Pulse 80 08/19/23 15:30 Resp 18 08/19/23 15:30 BP 120/64 08/19/23 15:30 Pulse Ox 98 08/19/23 15:30 O2 Del Method Room Air 08/19/23 15:30 BMI result Body Mass Index 32.7 Appearance: Alert. Oriented X3. No acute distress. Eyes: Pupils equal, round and reactive to light. ENT: Pharynx normal. Neck: Normal inspection. Neck supple. No lymph nodes noted. No crepitus CVS: Normal heart rate and rhythm. Pulses normal. Normal S1 and S2 Respiratory: No respiratory distress. Breath sounds normal. No Wheezing. No rales Abdomen: Soft and nontender. No rigidity. No distention. good BS x4 Rectal exam was done with nursing present. It showed brown stool. Positive external hemorrhoids noted. Will send for Hemoccult. Skin: Skin warm and dry. Normal skin color. Normal skin turgor. Extremities: 2+ lower extremity edema. Neurovascular intact to all extremities. No Lacerations. No Rash. There is a new shunt that was placed in the left arm. Grossly there is no redness. There has no discharge. Neuro: Oriented X 3. No motor deficit. No sensory deficit. Moving all extermities. No slurred speech Medical Decision Making Medical Decision Making [facility] Narrative: Positive generalized malaise weakness. Patient's case discussed with the bullet assembly press setter operator on-call. Looked up patient's history. Patient actually gets dialysis on Wednesday and Wednesday. Missed his dialysis today. His K is 5.4. Patient's pH is normal at 7.5. Patient BUN and creatinine elevated consistent with end-stage renal disease. He feels generally weak. He just got discharged from the halfway yesterday. Had a long discussion with the bullet assembly press setter operator will get patient dialysis in house. As patient is noncompliant. Case discussed with the hospitalist team. In stable condition. Differential Diagnosis Differential Diagnoses: The differential diagnosis associated with the presentation includes End-stage renal disease Admission/Observation Consideration of admission/observation: Escalation of care including admission/observation considered Consult Healthcare Provider Management of the patient was discussed with: Stores Despatch Hand (Nephrology) Lab Data [facility] Lab Attestation statement: I reviewed the patient's lab results. 08/19/23 15:00 08/19/23 15:00 Labs: Lab Results 08/19/23 08/19/23 08/19/23 Range/Units 14:20 15:00 15:06 WBC 3.9 L (4.8-10.8) X10*3/uL RBC 3.07 L (4.60-5.80) X10*6/uL Hgb 9.6 L (14.0-18.0) g/dl Hct 29.8 L (42.0-52.0) % MCV 97.1 (80.0-98.0) fL MCH 31.3 (27.0-33.0) pg MCHC 32.2 (31.0-36.0) g/dl RDW 15.6 (11.0-16.0) % Plt Count 279 (160-400) X10*3/uL MPV 9.1 L (9.4-12.4) fL Immature Gran % (Auto) 2.1 H (0.0-0.4) % Neut % (Auto) 37.5 L (45-73) % Lymph % (Auto) 28.1 (20-40) % [place] % (Auto) 22.6 H (2-11) % Eos % (Auto) 9.4 H (0-4) % Baso % (Auto) 0.3 (0-2) % Lymph # (Auto) 1.1 L (1.2-4.9) X10*3/uL [place] # (Auto) 0.9 (0.1-1.2) X10*3/uL Eos # (Auto) 0.4 (0.0-0.4) X10*3/uL Baso # (Auto) 0.0 (0.0-0.2) X10*3/uL Abs Immat Gran (auto) 0.08 H (0.00-0.03) X10*3/uL Absolute Neuts (auto) 1.5 L (2.0-8.3) x10*3/uL Absolute Nucleated RBC 0.000 (0.0-0.012) X10*3/uL Nucleated RBC % (auto) 0.0 (0.0-0.2) /100WBC Smear Tech's Comments VERIFIED VBG pH 7.53 H (7.32-7.43) VBG pCO2 39 mmHg VBG pO2 123 mmHg VBG HCO3 32 H (22-26) mmol/L VBG O2 Saturation 100.0 % VBG Base Excess 9.5 mmol/L Sodium 137 (135-145) mmol/L Potassium 5.4 H D (3.3-5.1) mmol/L Chloride 96 (96-108) mmol/L Carbon Dioxide 28 (22-29) mmol/L Anion Gap 18 (12-20) BUN 43 H (9-16) mg/dL Creatinine 12.02 H* (0.5-1.4) mg/dL Estim Creat Clear Calc 7.3 Estimated GFR 4 Random Glucose 84 (60-115) mg/dL Calcium 9.0 (8.4-10.2) mg/dL Phosphorus 4.9 H (2.7-4.5) mg/dL Magnesium 1.9 (1.6-2.6) mg/dL Total Bilirubin 0.3 (0.0-1.0) mg/dL Direct Bilirubin 0.1 (0.0-0.5) mg/dL AST 9 (5-37) U/L ALT < 5 (0-40) U/L Alkaline Phosphatase 97 (39-117) U/L Total Creatine Kinase 29 L (38-174) U/L Total Protein 7.5 (6.5-8.0) g/dL Albumin 3.3 L (3.5-5.0) g/dL TSH 0.09 L (0.32-4.0) uIU/mL Free T4 1.07 (0.71-1.85) ng/dL Stool Occult Blood POSITIVE (NEGATIVE) Influenza Type A (PCR) NEGATIVE (Negative) Influenza Type B (PCR) NEGATIVE (Negative) RSV RNA Qual (PCR) NEGATIVE (Negative) SARS-CoV-2 RNA (RT-PCR) NEGATIVE (Negative) Independent Interpretation I performed an independent interpretation of an: EKG (Sinus heart rate is 80 [place] is prolonged. Patient in first-degree heart block. QRS QTC within normal limits no acute ST segment elevation.) and Plain X-Ray (No gross infiltrate question atelectasis at the right base) Radiology Impression Discussion of test interpretation with radiology: I have reviewed the radiologist's reading. External Record Review External record reviewed: Inpatient record Discharge Plan Discharge Clinical Impression: Renal failure Patient Disposition: Admitted As Inpatient Prescriptions: No Action levothyroxine 75 mcg Tablet 75 mcg PO DAILY@0600 atorvastatin 40 mg tablet 40 mg PO DAILY sertraline 25 mg tablet 1 tab PO DAILY losartan 50 mg tablet 50 mg PO DAILY torsemide 20 mg tablet 40 mg PO BID@0900,1400 calcium carbonate [Ultra Strength Antacid] 400 mg calcium (1,000 mg) tablet,chewable 400 mg PO TID ergocalciferol (vitamin D2) 1,250 mcg (50,000 unit) capsule 1,250 mcg PO FR@0900 sevelamer carbonate 800 mg tablet 1,600 mg PO TID omeprazole 40 mg capsule,delayed release(DR/EC) 40 mg PO DAILY@0630 cefazolin in dextrose (iso-os) 2 gram/50 mL Piggyback 50 ml IV MoWeFr@1800 Qty: 24 0RF
[2023-08-19 14:40] LABS: OBS Int Ctl Valid YES; OBS1 POSITIVE (NEGATIVE)
[2023-08-19 15:11] LABS: Basophils Percent Auto 0.3 % (0-2); Eosinophils Absolute Auto 0.4 X10*3/uL (0.0-0.4); Eosinophils Percent Auto 9.4 % (0-4); Hematocrit 29.8 % (42.0-52.0); Hemoglobin 9.6 g/dl (14.0-18.0); Imm Gran Abs Auto 0.08 X10*3/uL (0.00-0.03); Imm Gran Pct Auto 2.1 % (0.0-0.4); Lymphocytes Absolute Auto 1.1 X10*3/uL (1.2-4.9); Lymphocytes Percent Auto 28.1 % (20-40); MANUAL DIFF FLAG SCAN; Mean Corpuscular HGB Conc 32.2 g/dl (31.0-36.0); Mean Corpuscular Hemoglobin 31.3 pg (27.0-33.0); Mean Corpuscular Volume 97.1 fL (80.0-98.0); Mean Platelet Volume 9.1 fL (9.4-12.4); Monocytes Absolute Auto 0.9 X10*3/uL (0.1-1.2); Monocytes Percent Auto 22.6 % (2-11); Neutrophils Absolute Auto 1.5 x10*3/uL (2.0-8.3); Neutrophils Percent Auto 37.5 % (45-73); Platelet Count 279 X10*3/uL (160-400); Red Blood Count 3.07 X10*6/uL (4.60-5.80); Red Cell Distribution Width 15.6 % (11.0-16.0); SCAN SMEAR FLAG 1; White Blood Count 3.9 X10*3/uL (4.8-10.8)
[2023-08-19 15:13] LABS: Venous Blood Gas Refer to POC result
[2023-08-19 15:13] LABS: VBG Base Excess 9.5 mmol/L; VBG HCO3 32 mmol/L (22-26); VBG pCO2 39 mmHg; VBG pH 7.53 (7.32-7.43); VBG pO2 123 mmHg
[2023-08-19 15:36] LABS: SLIDE REVIEW VERIFIED
[2023-08-19 15:43] LABS: Influenza A PCR NEGATIVE (Negative); Influenza B PCR NEGATIVE (Negative); Resp Syncy Virus RNA Qual PCR NEGATIVE (Negative); SARS COV2 PCR INHOUSE NEGATIVE (Negative)
[2023-08-19 15:45] LABS: Alanine Aminotransferase < 5 U/L (0-40); Albumin Level 3.3 g/dL (3.5-5.0); Alkaline Phosphatase 97 U/L (39-117); Anion Gap 18 (12-20); Aspartate Amino Transferase 9 U/L (5-37); Bilirubin Direct 0.1 mg/dL (0.0-0.5); Bilirubin Total 0.3 mg/dL (0.0-1.0); Blood Urea Nitrogen 43 mg/dL (9-16); Carbon Dioxide 28 mmol/L (22-29); Chloride 96 mmol/L (96-108); Creatinine Clr Calc Pharmacy 7.3; Estimated Glomerular Filt Rate 4; Glucose Random 84 mg/dL (60-115); Magnesium 1.9 mg/dL (1.6-2.6); Phosphorus 4.9 mg/dL (2.7-4.5); Potassium 5.4 mmol/L (3.3-5.1); Sodium 137 mmol/L (135-145); Total Protein 7.5 g/dL (6.5-8.0)
[2023-08-19 16:05] LABS: TSH reflex Free T4 0.09 uIU/mL (0.32-4.0)
--- NOTE | 2023-08-19 16:46 | P.CONNP_ITS ---
History of Present Illness Reason for Consult Consult date: 12/23/23 Chief Complaint Chief complaint: Weakness,missed dialysis History of Present Illness Narrative: 67-year-old male with a history anemia, hypertension, hyperlipidemia, hypothyroid, end-stage renal disease on dialysis TTS at [facility] presented to the ED for generalized weakness. Though patient claims that he is scheduled for MWF, but I checked the flow shet from clinical web and his last dialysis was on 08/17/23 which is actually Wednesday. Electrolytes reviewed, K mildly elevated 5.4, VS WNL Will arrange for dialysis tomorrow morning. 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 Surgical History Surgical History H/O aortic valve replacement Social History Social History Household Members: None Housing: Apartment Do you presently have visiting nurse or other home services: Yes ([employer]IST/homemaker) Unable to assess alcohol history related to: Unknown Alcohol intake: former Comment: rings appropriately Patient Tobacco Use Status: Former Tobacco user Tobacco use type: Cigarette Years Smoked: 30 e-Cigarette/Vaping Use: Never Used Second Hand Smoke Exposure: No Advance Directives Date on File: 07/30/23 service: No Current occupational status: unemployed and disabled Meds Allergies Allergy/AdvReac Type Severity Reaction Status Date / Time Penicillins Allergy Unknown UNKWN Verified 07/27/23 10:43 Home Medications ?Medication ?Instructions ?Recorded ?Confirmed ?Last Taken ?Type levothyroxine 75 mcg tablet 75 mcg PO DAILY@0600 06/27/20 08/19/23 3 Days Ago History ~07/15/23 atorvastatin 40 mg tablet 40 mg PO BEDTIME 02/10/22 08/19/23 3 Days Ago History ~07/15/23 sertraline 25 mg tablet 1 tab PO DAILY 10/03/22 08/19/23 3 Days Ago History ~07/15/23 calcium carbonate (Ultra Strength 400 mg PO MOWEFR 02/16/23 08/19/23 3 Days Ago History Antacid) ~07/15/23 losartan 50 mg tablet 50 mg PO DAILY 02/16/23 08/19/23 3 Days Ago History ~07/15/23 torsemide 20 mg tablet 40 mg PO BID@0900,1400 02/16/23 08/19/23 3 Days Ago History ~07/15/23 calcium carbonate 400 mg PO DAILY PRN Heartburn 08/19/23 08/19/23 Unknown History ergocalciferol (vitamin D2) 50 mcg 50 mcg PO DAILY 08/19/23 08/19/23 Unknown History (2,000 unit) capsule esomeprazole magnesium 40 mg 40 mg PO DAILY HEARTBURN 08/19/23 08/19/23 Unknown History capsule,delayed release sevelamer carbonate 2.4 gram oral 2.4 g PO SUMOWEFR@0800,1200 08/19/23 08/19/23 Unknown History powder packet sevelamer carbonate 2.4 gram oral 2.4 g PO SUMOWEFR@1700 08/19/23 08/19/23 Unknown History powder packet Physical Exam Vital Signs: Last Vital Signs Temp 98.3 F 08/19/23 15:30 Pulse 80 08/19/23 15:30 Resp 18 08/19/23 15:30 BP 120/64 08/19/23 15:30 Pulse Ox 98 08/19/23 15:30 O2 Del Method Room Air 08/19/23 15:30 BMI result Body Mass Index 32.7 Results Lab Results 08/20/23 06:23 08/20/23 06:23 Lab results: Chemistry 08/19/23 15:00 Sodium 137 Potassium 5.4 H D Carbon Dioxide 28 BUN 43 H Creatinine 12.02 H* Calcium 9.0 Phosphorus 4.9 H Hematology 08/19/23 15:00 WBC 3.9 L Hgb 9.6 L Plt Count 279 Procedures Date of Service Date of Service: 12/23/23
--- NOTE | 2023-08-19 17:20 | PC.NURSE ---
Urine specimen unable to be obtained as patient reports he does not make urine
[2023-08-19 17:21] LABS: Free T4 (Free Thyroxine) 1.07 ng/dL (0.71-1.85)
--- NOTE | 2023-08-19 17:38 | PM.IMHP ---
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 Patient with multiple recent hospitalizations in the past month. Was admitted to hospital on 07/18/2023-07/25/2023 and diagnosed with COVID-19 infection and MSSA bacteremia secondary to an infected PermCath. Was at home on IV cefazolin to be administered after hemodialysis. At that time patient was evaluated for physical deconditioning by PT who recommended STIR, but patient instead wanted to be discharged home. He came back 1 day later due to weakness and being unable to care for self. PT again recommended STIR and patient was sent to [facility], where he was discharged yesterday. Patient reports he went home but felt weak, unable to move around his apartment, and unable to care for himself. Patient called EMS to be brought to the hospital for further evaluation, stating his goal is ?to get to a alf where I guess all live the rest of my life. He is unable to state whether he had HD yesterday at [facility] before discharge, but believes he did not. Patient denies chest pain/pressure, palpitations. No shortness of breath. Denies fever, chills, nausea, vomiting, abdominal pain. No diarrhea. Patient does not make urine. Denies history of hemorrhoids. No hematochezia or melena. In the ED pt was tachypneic up to 23 though vital signs otherwise largely WNL. Labs were significant for potassium 5.4, BUN 43, creatinine 12.02, phosphorus 4.9, and stool positive for occult blood. Otherwise noncontributory. CXR showed platelike atelectasis of right lung base. EKG demonstrated sinus rhythm with first-degree AV block but no evidence of ST elevations or depressions. Pt will be admitted to the hospital for treatment and further evaluation of electrolyte abnormalities secondary to missed hemodialysis, and generalized weakness and deconditioning secondary to prolonged hospital and rehab stays. 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 <CHRISTIAN Bustamante - Last Filed: 08/19/23 20:32> Surgical History: Surgical History H/O aortic valve replacement <CHRISTIAN Bustamante - Last Filed: 08/19/23 20:32> Social History: Social History Household Members: None Housing: House Do you presently have visiting nurse or other home services: No Unable to assess alcohol history related to: Unknown Alcohol intake: former Comment: rings appropriately Patient Tobacco Use Status: Former Tobacco user Quit Date: 5 years ago Tobacco use type: Cigarette Years Smoked: 30 Smoked in Last 30 Days: No e-Cigarette/Vaping Use: Never Used Second Hand Smoke Exposure: No Use of substances other than those prescribed or required for medical reasons: No Advance Directives: Yes Advance Directives on File: Yes Advance Directives Date on File: 07/30/23 service: No Current occupational status: unemployed and disabled <CHRISTIAN Bustamante - Last Filed: 08/19/23 20:32> Meds Allergies/Adverse reactions: Allergies Allergy/AdvReac Type Severity Reaction Status Date / Time Penicillins Allergy Unknown UNKWN Verified 07/27/23 10:43 <CHRISTIAN Bustamante - Last Filed: 08/19/23 20:32> Home medications: Home Medications Medication Instructions Recorded Confirmed Last Taken Type levothyroxine 75 mcg tablet 75 mcg PO DAILY@0600 06/27/20 08/19/23 3 Days Ago History ~07/15/23 atorvastatin 40 mg tablet 40 mg PO BEDTIME 02/10/22 08/19/23 3 Days Ago History ~07/15/23 sertraline 25 mg tablet 1 tab PO DAILY 10/03/22 08/19/23 3 Days Ago History ~07/15/23 calcium carbonate 400 mg calcium 400 mg PO MOWEFR 02/16/23 08/19/23 3 Days Ago History (1,000 mg) chewable tablet (Ultra ~07/15/23 Strength Antacid) losartan 50 mg tablet 50 mg PO DAILY 02/16/23 08/19/23 3 Days Ago History ~07/15/23 torsemide 20 mg tablet 40 mg PO BID@0900,1400 02/16/23 08/19/23 3 Days Ago History ~07/15/23 calcium carbonate 400 mg calcium 400 mg PO DAILY PRN Heartburn 08/19/23 08/19/23 Unknown History (1,000 mg) chewable tablet ergocalciferol (vitamin D2) 50 mcg 50 mcg PO DAILY 08/19/23 08/19/23 Unknown History (2,000 unit) capsule esomeprazole magnesium 40 mg 40 mg PO DAILY HEARTBURN 08/19/23 08/19/23 Unknown History capsule,delayed release sevelamer carbonate 2.4 gram oral 2.4 g PO SUMOWEFR@0800,1200 08/19/23 08/19/23 Unknown History powder packet sevelamer carbonate 2.4 gram oral 2.4 g PO SUMOWEFR@1700 08/19/23 08/19/23 Unknown History powder packet <CHRISTIAN Bustamante - Last Filed: 08/19/23 20:32> Physical Exam Vital Signs and Narrative: Vital Signs: Last Vital Signs Temp 98.3 F 08/19/23 15:30 Pulse 80 08/19/23 15:30 Resp 18 08/19/23 15:30 BP 120/64 08/19/23 15:30 Pulse Ox 98 08/19/23 15:30 O2 Del Method Room Air 08/19/23 15:30 BMI result Body Mass Index 32.7 <CHRISTIAN Bustamante - Last Filed: 08/19/23 20:32> Constitutional: Alert, in no acute distress. Mental Status: Oriented to person, place and time. Eyes: Pupils are equal, round, and reactive to light. Ear, Nose, and Throat: Oropharynx clear, mucous membranes moist. Ears and nose without deformities. Trachea midline. Respiratory: Clear to auscultation bilaterally. No wheezing, rales, or rhonchi. Cardiovascular: S1, S2 regular. 2/6 murmur heard at right sternal border. Gastrointestinal: Abdomen soft, non-tender, non-distended. Normal bowel sounds. Neurologic: Cranial nerves II-XII are grossly intact bilaterally. No focal neurological deficits. Moves all extremities spontaneously. Skin: Warm, dry. Musculoskeletal: No cyanosis or clubbing. Extremities: No edema. Healing incision on LUE from rencent fistula placement. Psychiatric: Normal mood and affect. <CHRISTIAN Bustamante - Last Filed: 08/19/23 20:32> Results Labs CBC and Chem 7: 08/19/23 15:00 08/19/23 15:00 <CHRISTIAN Bustamante - Last Filed: 08/19/23 20:32> Labs: Laboratory Results - last 24 hr 08/19/23 08/19/23 08/19/23 14:20 15:00 15:06 MCV 97.1 MCH 31.3 MCHC 32.2 RDW 15.6 Plt Count 279 MPV 9.1 L Immature Gran % (Auto) 2.1 H Neut % (Auto) 37.5 L Lymph % (Auto) 28.1 Jennings % (Auto) 22.6 H Eos % (Auto) 9.4 H Baso % (Auto) 0.3 Lymph # (Auto) 1.1 L Jennings # (Auto) 0.9 Eos # (Auto) 0.4 Baso # (Auto) 0.0 Abs Immat Gran (auto) 0.08 H Absolute Neuts (auto) 1.5 L Absolute Nucleated RBC 0.000 Nucleated RBC % (auto) 0.0 Smear Tech's Comments VERIFIED VBG pH 7.53 H VBG pCO2 39 VBG pO2 123 VBG HCO3 32 H VBG O2 Saturation 100.0 VBG Base Excess 9.5 Anion Gap 18 Estim Creat Clear Calc 7.3 Estimated GFR 4 Random Glucose 84 Calcium 9.0 Phosphorus 4.9 H Magnesium 1.9 Total Bilirubin 0.3 Direct Bilirubin 0.1 AST 9 ALT < 5 Alkaline Phosphatase 97 Total Creatine Kinase 29 L Total Protein 7.5 Albumin 3.3 L TSH 0.09 L Free T4 1.07 Stool Occult Blood POSITIVE Influenza Type A (PCR) NEGATIVE Influenza Type B (PCR) NEGATIVE RSV RNA Qual (PCR) NEGATIVE SARS-CoV-2 RNA (RT-PCR) NEGATIVE <CHRISTIAN Bustamante - Last Filed: 08/19/23 20:32> Imaging Radiologist's Impressions: Impressions Chest X-Ray 08/19/23 14:29 IMPRESSION: 1. Platelike atelectasis right lung base. 2. Right jugular dialysis catheter tip is in mid SVC. 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 Pt will be admitted to the hospital for treatment and further evaluation of electrolyte abnormalities secondary to missed hemodialysis, and generalized weakness and deconditioning secondary to prolonged hospital and rehab stays. ESRD on HD Wed/Wed/Wed Discharge yesterday from [facility] at [facility], doesn't remember getting HD prior to discharge Potassium 5.4, phosphorus 4.9, creatinine 12.02 Will continue HD on MWF Nephrology consult Follow BMP Monitor on telemetry Hyperkalemia Potassium 5.4 at time of presentation Likely secondary to missed dialysis yesterday No significant EKG changes Will give Lokelma 5g p.o. Continue dialysis Low potassium diet Monitor on telemetry Hyperphosphatemia Phosphorus 4.9 at time of presentation Likely secondary to missed dialysis yesterday Continue dialysis Low phosphorus diet Monitor on telemetry Stool heme-positive Patient denies hematochezia, melena, no known history of hemorrhoids or previous GI bleeds Will give one-time dose of Protonix GI consult Follow H&H Will place in pneumatic boots for DVT prophylaxis Weakness/difficulty with ambulation Patient discharged from [facility] at [facility] yesterday States had difficulty walking and taking care of self at home since Believes he needs placement into nursing home SNF PT evaluation HTN Continue losartan HFpEF Does not appear to be in acute exacerbation Continue home torsemide CAD/HLD Continue statin Hypothyroidism Continue levothyroxine Mood disorder Continue home meds Full Code Attending:?Dr. Acuna DVT Prophylaxis: Pneumatic boots Pt will require a hospitalization of at least two nights for treatment of?generalized weakness in the setting of electrolyte abnormality secondary to missed dialysis, as well as weakness, inability to care for oneself, and deconditioning secondary to prolonged hospital and rehab stays. Patient require hospitalization 2 to need for hemodialysis, close monitoring of labs and cardiac functioning, as well as PT evaluation for safe disposition home. 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 Pt will be admitted to the hospital for treatment and further evaluation of electrolyte abnormalities secondary to missed hemodialysis, and generalized weakness and deconditioning secondary to prolonged hospital and rehab stays. Weakness/difficulty with ambulation Patient discharged from [facility] at [facility] yesterday States had difficulty walking and taking care of self at home since Believes he needs placement into [facility] SN[facility] PT evaluation. Obtain b12 and TSH Stool heme-positive Patient denies hematochezia, melena, no known history of hemorrhoids or previous GI bleeds Will give one-time dose of Protonix GI consult Follow H&H Will place in pneumatic boots for DVT prophylaxis ESRD on HD Wed/Wed/Wed Discharge yesterday from [facility] at [facility], doesn't remember getting HD prior to discharge Potassium 5.4, phosphorus 4.9, creatinine 12.02 Will continue HD on MWF Nephrology consult Follow BMP Monitor on telemetry Hyperkalemia Potassium 5.4 at time of presentation Likely secondary to missed dialysis yesterday No significant EKG changes Will give Lokelma 5g p.o. Continue dialysis Low potassium diet Monitor on telemetry Hyperphosphatemia Phosphorus 4.9 at time of presentation Likely secondary to missed dialysis yesterday Continue dialysis Low phosphorus diet Monitor on telemetry HTN Continue losartan HFpEF Does not appear to be in acute exacerbation Continue home torsemide CAD/HLD Continue statin Hypothyroidism Continue levothyroxine Mood disorder Continue home meds Full Code Attending:?Dr. Acuna DVT Prophylaxis: Pneumatic boots Pt will require a hospitalization of at least two nights for treatment of?generalized weakness in the setting of electrolyte abnormality secondary to missed dialysis, as well as weakness, inability to care for oneself, and deconditioning secondary to prolonged hospital and rehab stays. Patient require hospitalization 2 to need for hemodialysis, close monitoring of labs and cardiac functioning, as well as PT evaluation for safe disposition home. <Donovan Acuna MD - Last Filed: 08/19/23 20:35> Quality Stroke Does the patient have a stroke diagnosis?: No <CHRISTIAN Bustamante - Last Filed: 08/19/23 20:32> VTE Prior VTE?: No <CHRISTIAN Bustamante - Last Filed: 08/19/23 20:32> VTE Risk Level:: Medical - moderate - high <CHRISTIAN Bustamante - Last Filed: 08/19/23 20:32> VTE Device Contraindication: N/A - Device Ordered <CHRISTIAN Bustamante - Last Filed: 08/19/23 20:32> VTE Drug Contraindication: Treatment Not Indicated <CHRISTIAN Bustamante - Last Filed: 08/19/23 20:32>
--- NOTE | 2023-08-19 18:50 | PHA.MEDREC ---
Pharmacy Consult ? Medication Reconciliation Pharmacy has completed the medication reconciliation. Patient discharged from [facility] yesterday. He was unable to verify his medications. Called facility and got verbal list from floor nurse.
[2023-08-19] MEDS: Sodium Zirconium Cyclosilicate 5 GM POWD.PACK PO (19:19)
[2023-08-19] MEDS: Pantoprazole Sodium 40 MG/10 ML VIAL 80 MG IVPUSH (19:33)
[2023-08-19 21:01] LABS: Glucose, Whole Blood 164 mg/dL (60-115)
[2023-08-19] MEDS: 0.9 % Sodium Chloride Flush 3 ML SYRINGE IVFLUSH (22:20)
[2023-08-20 00:51] LABS: Folate 2.9 ng/mL (> or = 4.0); Vitamin B12 633 pg/mL (200-900)
[2023-08-20 03:03] VITALS: BP 132/62; PULSE 80; RESP 20; TEMP 36.5; O2SAT 96
[2023-08-20 07:07] VITALS: BP 130/59; PULSE 68; RESP 20; TEMP 36.9; O2SAT 95
[2023-08-20 07:21] LABS: Hematocrit 28.6 % (42.0-52.0); Hemoglobin 9.2 g/dl (14.0-18.0); Mean Corpuscular HGB Conc 32.2 g/dl (31.0-36.0); Mean Corpuscular Hemoglobin 31.2 pg (27.0-33.0); Mean Corpuscular Volume 96.9 fL (80.0-98.0); Mean Platelet Volume 9.3 fL (9.4-12.4); Platelet Count 268 X10*3/uL (160-400); Red Blood Count 2.95 X10*6/uL (4.60-5.80); Red Cell Distribution Width 15.5 % (11.0-16.0); White Blood Count 3.9 X10*3/uL (4.8-10.8)
--- NOTE | 2023-08-20 07:23 | P.CNGI_ITS ---
History of Present Illness Data of Consult Service Date: 08/20/23 Requesting physician: Anya Garcia Primary Care Provider: Segundo Tapia MD HPI Reason for consult: Heme positive stools 08/19/23 CHEST XRAY SHOWED: The right lung is expanded with platelike atelectasis. The left lung is expanded and clear. The heart size and pulmonary vascularity is normal. There is aortic valve prosthesis. The right jugular central line dialysis catheter tip is in mid SVC. No gross bony abnormality seen. 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 Surgical History Surgical History H/O aortic valve replacement Social History Social History Household Members: None Housing: Apartment Do you presently have visiting nurse or other home services: Yes ([employer]/homemaker) Unable to assess alcohol history related to: Unknown Alcohol intake: former Comment: rings appropriately Patient Tobacco Use Status: Former Tobacco user Quit Date: 5 years ago Tobacco use type: Cigarette Years Smoked: 30 Smoked in Last 30 Days: No e-Cigarette/Vaping Use: Never Used Patient Interested in Nicotine Replacement: No Patient Given Instructions on How to Stop Smoking: No Second Hand Smoke Exposure: No Use of substances other than those prescribed or required for medical reasons: No Currently Displaying Signs/Symptoms of Drug Intoxication Withdrawal: No Any prior treatment program specific to substance use: No Have you been hit, kicked, punched, or otherwise hurt by someone within the past year? If so, by whom?: No Do you feel safe in your current relationship?: No Is there a partner from a previous relationship who is making you feel unsafe now?: No Are you made to feel afraid or neglected: No Advance Directives: Yes Advance Directives Information Provided: No Advance Directives on File: Yes Advance Directives Date on File: 07/30/23 Do you have thoughts of harming others: None Do you have a plan to hurt others: No Plan Recently lost weight without trying: Yes How much weight loss: 2-13 pounds Eating poorly because of decreased appetite: No Nutrition screen score: 3 Nutrition Risks: No Nutritional Risk Poor oral hygiene: No service: No Current occupational status: unemployed and disabled Meds Allergies Allergy/AdvReac Type Severity Reaction Status Date / Time Penicillins Allergy Unknown UNKWN Verified 07/27/23 10:43 Active Medications: Current Medications Acetaminophen (Acetaminophen 325 Mg Tablet) 650 mg PO Q6H PRN PRN Reason: Pain, Mild (Pain Scale 1-3) Atorvastatin Calcium (Atorvastatin Calcium 40 Mg Tablet) 40 mg PO BEDTIME ROSALIA Benzonatate (Benzonatate 100 Mg Capsule) 100 mg PO TID PRN PRN Reason: Cough Docusate Sodium (Docusate Sodium 100 Mg Capsule) 100 mg PO DAILY PRN PRN Reason: Constipation Folic Acid (Folic Acid 1 Mg Tablet) 5 mg PO DAILY [facility] Levothyroxine Sodium (Levothyroxine Sodium 75 Mcg Tablet) 75 mcg PO DAILY@0600 [facility] Losartan Potassium (Losartan Potassium 50 Mg Tablet) 50 mg PO DAILY ROSALIA; Protocol Melatonin (Melatonin 3 Mg Tablet) 6 mg PO BEDTIME PRN PRN Reason: Insomnia Non-Formulary Medication (Ergocalciferol (Vitamin D2)) 50 mcg PO DAILY [facility] Non-Formulary Medication (Esomeprazole Magnesium) 40 mg PO DAILY [facility] Non-Formulary Medication (Calcium Carbonate [Ultra Strength Antacid]) 400 mg PO MOWEFR [facility] Ondansetron HCl (Ondansetron Hcl 4 Mg/2 Ml Vial) 4 mg IVPUSH Q8H PRN PRN Reason: Nausea and Vomiting Sertraline HCl (Sertraline Hcl 25 Mg Tablet) 25 mg PO DAILY [facility] Sevelamer Carbonate (Sevelamer Carbonate Powder 800 Mg Powd.Pack) 2,400 mg PO SUMOWEFR@1700 [facility] Sevelamer Carbonate (Sevelamer Carbonate Powder 800 Mg Powd.Pack) 2,400 mg PO SUMOWEFR@0800,1200 [facility] Sodium Chloride (0.9 % Sodium Chloride Flush 3 Ml Syringe) 3 ml IVFLUSH QSHIFT [facility] Last Admin: 08/19/23 22:20 Dose: 3 ml Torsemide (Torsemide 20 Mg Tablet) 40 mg PO BID@0900,1400 [facility]; Protocol Home Medications Medication Instructions Recorded Confirmed Last Taken Type levothyroxine 75 mcg tablet 75 mcg PO DAILY@0600 06/27/20 08/19/23 3 Days Ago History ~07/15/23 atorvastatin 40 mg tablet 40 mg PO BEDTIME 02/10/22 08/19/23 3 Days Ago History ~07/15/23 sertraline 25 mg tablet 1 tab PO DAILY 10/03/22 08/19/23 3 Days Ago History ~07/15/23 calcium carbonate 400 mg calcium 400 mg PO MOWEFR 02/16/23 08/19/23 3 Days Ago History (1,000 mg) chewable tablet (Ultra ~07/15/23 Strength Antacid) losartan 50 mg tablet 50 mg PO DAILY 02/16/23 08/19/23 3 Days Ago History ~07/15/23 torsemide 20 mg tablet 40 mg PO BID@0900,1400 02/16/23 08/19/23 3 Days Ago History ~07/15/23 calcium carbonate 400 mg calcium 400 mg PO DAILY PRN Heartburn 08/19/23 08/19/23 Unknown History (1,000 mg) chewable tablet ergocalciferol (vitamin D2) 50 mcg 50 mcg PO DAILY 08/19/23 08/19/23 Unknown History (2,000 unit) capsule esomeprazole magnesium 40 mg 40 mg PO DAILY HEARTBURN 08/19/23 08/19/23 Unknown History capsule,delayed release sevelamer carbonate 2.4 gram oral 2.4 g PO SUMOWEFR@0800,1200 08/19/23 08/19/23 Unknown History powder packet sevelamer carbonate 2.4 gram oral 2.4 g PO SUMOWEFR@1700 08/19/23 08/19/23 Unknown History powder packet Physical Exam 2 Vital Signs: Vital Signs: Last Vital Signs Temp 98.5 F 08/20/23 07:07 Pulse 68 08/20/23 07:07 Resp 20 08/20/23 07:07 BP 130/59 L 08/20/23 07:07 Pulse Ox 95 08/20/23 07:07 O2 Del Method Room Air 08/20/23 07:07 BMI result Body Mass Index 31.4 Results Labs 08/20/23 06:23 08/20/23 06:23 Labs: Short CBC 08/19/23 08/20/23 Range/Units 15:00 06:23 WBC 3.9 L 3.9 L (4.8-10.8) X10*3/uL Hgb 9.6 L 9.2 L (14.0-18.0) g/dl Hct 29.8 L 28.6 L (42.0-52.0) % Plt Count 279 268 (160-400) X10*3/uL BMP 08/19/23 15:00 Sodium 137 Potassium 5.4 H D Chloride 96 Carbon Dioxide 28 BUN 43 H Creatinine 12.02 H* Calcium 9.0 Cardiac Enzymes 08/19/23 Range/Units 15:00 Total Creatine Kinase 29 L (38-174) U/L Liver Function 08/19/23 Range/Units 15:00 Total Bilirubin 0.3 (0.0-1.0) mg/dL Direct Bilirubin 0.1 (0.0-0.5) mg/dL AST 9 (5-37) U/L ALT < 5 (0-40) U/L Alkaline Phosphatase 97 (39-117) U/L Albumin 3.3 L (3.5-5.0) g/dL Assessment and Plan (1) Anemia: Status: Acute (2) Heme positive stool: Status: Acute Procedures Date of Service Date of Service: 08/20/23
[2023-08-20 07:44] LABS: Anion Gap 20 (12-20); Blood Urea Nitrogen 46 mg/dL (9-16); Calcium 8.8 mg/dL (8.4-10.2); Carbon Dioxide 27 mmol/L (22-29); Chloride 98 mmol/L (96-108); Creatinine Clr Calc Pharmacy 6.3; Estimated Glomerular Filt Rate 4; Glucose Random 95 mg/dL (60-115); Potassium 4.8 mmol/L (3.3-5.1); Sodium 140 mmol/L (135-145)
[2023-08-20] MEDS: Omeprazole 20 MG CAPSULE.DR PO (08:11)
[2023-08-20] MEDS: Sertraline HCL 25 MG TABLET PO (08:11)
[2023-08-20] MEDS: Losartan Potassium 50 MG TABLET PO (08:11)
[2023-08-20] MEDS: 0.9 % Sodium Chloride Flush 3 ML SYRINGE IVFLUSH (08:12)
[2023-08-20] MEDS: Torsemide 20 MG TABLET 40 MG PO ×2 (08:12→14:44)
[2023-08-20] MEDS: Folic Acid 1 MG TABLET 5 MG PO (08:12)
[2023-08-20] MEDS: Sevelamer Carbonate Powder 800 MG POWD.PACK 2400 MG PO ×2 (08:15→14:46)
--- NOTE | 2023-08-20 08:42 | HO.PM.IMPN ---
Subjective Subjective Date of Service: 08/20/23 Interval History: weakness Physical Exam Vital Signs: Vital Signs: Last Vital Signs Temp 98.5 F 08/20/23 07:07 Pulse 68 08/20/23 07:07 Resp 20 08/20/23 07:07 BP 130/59 L 08/20/23 07:07 Pulse Ox 95 08/20/23 07:07 O2 Del Method Room Air 08/20/23 07:07 BMI result Body Mass Index 31.4 General: AO X 3, no acute distress Resp: CTA bilateral, no accessory muscles used CVS: S1,S2,RRR GI: soft, non tender, non distended Neuro: motor grossly intact, alert Psych: appropriate affect, appropriate insight Objective Data Active Medications Acetaminophen (Acetaminophen 325 Mg Tablet) 650 mg PO Q6H PRN PRN Reason: Pain, Mild (Pain Scale 1-3) Atorvastatin Calcium (Atorvastatin Calcium 40 Mg Tablet) 40 mg PO BEDTIME [facility] Benzonatate (Benzonatate 100 Mg Capsule) 100 mg PO TID PRN PRN Reason: Cough Calcium Carbonate (Calcium Carbonate 500 Mg Tablet) 500 mg PO MoWeFr@0900 [facility] Last Admin: 08/20/23 08:11 Dose: 500 mg Documented By: HUE Docusate Sodium (Docusate Sodium 100 Mg Capsule) 100 mg PO DAILY PRN PRN Reason: Constipation Folic Acid (Folic Acid 1 Mg Tablet) 5 mg PO DAILY [facility] Last Admin: 08/20/23 08:12 Dose: 5 mg Documented By: HUE Levothyroxine Sodium (Levothyroxine Sodium 75 Mcg Tablet) 75 mcg PO DAILY@0600 [facility] Losartan Potassium (Losartan Potassium 50 Mg Tablet) 50 mg PO DAILY [facility]; Protocol Last Admin: 08/20/23 08:11 Dose: 50 mg Documented By: HUE Melatonin (Melatonin 3 Mg Tablet) 6 mg PO BEDTIME PRN PRN Reason: Insomnia Omeprazole (Omeprazole 20 Mg Capsule.) 20 mg PO DAILY@0630 [facility] Last Admin: 08/20/23 08:11 Dose: 20 mg Documented By: HUE Ondansetron HCl (Ondansetron Hcl 4 Mg/2 Ml Vial) 4 mg IVPUSH Q8H PRN PRN Reason: Nausea and Vomiting Sertraline HCl (Sertraline Hcl 25 Mg Tablet) 25 mg PO DAILY [facility] Last Admin: 08/20/23 08:11 Dose: 25 mg Documented By: HUE Sevelamer Carbonate (Sevelamer Carbonate Powder 800 Mg Powd.Pack) 2,400 mg PO SUMOWEFR@1700 [facility] Sevelamer Carbonate (Sevelamer Carbonate Powder 800 Mg Powd.Pack) 2,400 mg PO SUMOWEFR@0800,1200 [facility] Last Admin: 08/20/23 08:15 Dose: 2,400 mg Documented By: HUE Sodium Chloride (0.9 % Sodium Chloride Flush 3 Ml Syringe) 3 ml IVFLUSH QSHIFT [facility] Last Admin: 08/20/23 08:12 Dose: 3 ml Documented By: HUE Torsemide (Torsemide 20 Mg Tablet) 40 mg PO BID@0900,1400 [facility]; Protocol Last Admin: 08/20/23 08:12 Dose: 40 mg Documented By: HUE Labs 08/20/23 06:23 08/20/23 06:23 Labs: Laboratory Results - last 24 hr 08/19/23 08/19/23 08/19/23 14:20 15:00 15:06 MCV 97.1 MCH 31.3 MCHC 32.2 RDW 15.6 Plt Count 279 MPV 9.1 L Immature Gran % (Auto) 2.1 H Neut % (Auto) 37.5 L Lymph % (Auto) 28.1 [place] % (Auto) 22.6 H Eos % (Auto) 9.4 H Baso % (Auto) 0.3 Lymph # (Auto) 1.1 L [place] # (Auto) 0.9 Eos # (Auto) 0.4 Baso # (Auto) 0.0 Abs Immat Gran (auto) 0.08 H Absolute Neuts (auto) 1.5 L Absolute Nucleated RBC 0.000 Nucleated RBC % (auto) 0.0 Smear Tech's Comments VERIFIED VBG pH 7.53 H VBG pCO2 39 VBG pO2 123 VBG HCO3 32 H VBG O2 Saturation 100.0 VBG Base Excess 9.5 Anion Gap 18 Estim Creat Clear Calc 7.3 Estimated GFR 4 POC Glucose Random Glucose 84 Calcium 9.0 Phosphorus 4.9 H Magnesium 1.9 Total Bilirubin 0.3 Direct Bilirubin 0.1 AST 9 ALT < 5 Alkaline Phosphatase 97 Total Creatine Kinase 29 L Total Protein 7.5 Albumin 3.3 L Vitamin B12 Folate TSH 0.09 L Free T4 1.07 Stool Occult Blood POSITIVE Influenza Type A (PCR) NEGATIVE Influenza Type B (PCR) NEGATIVE RSV RNA Qual (PCR) NEGATIVE SARS-CoV-2 RNA (RT-PCR) NEGATIVE 08/19/23 08/19/23 08/20/23 20:53 23:55 06:23 MCV 96.9 MCH 31.2 MCHC 32.2 RDW 15.5 Plt Count 268 MPV 9.3 L Immature Gran % (Auto) Neut % (Auto) Lymph % (Auto) [place] % (Auto) Eos % (Auto) Baso % (Auto) Lymph # (Auto) [place] # (Auto) Eos # (Auto) Baso # (Auto) Abs Immat Gran (auto) Absolute Neuts (auto) Absolute Nucleated RBC 0.000 Nucleated RBC % (auto) 0.0 Smear Tech's Comments VBG pH VBG pCO2 VBG pO2 VBG HCO3 VBG O2 Saturation VBG Base Excess Anion Gap 20 Estim Creat Clear Calc 6.3 Estimated GFR 4 POC Glucose 164 H Random Glucose 95 Calcium 8.8 Phosphorus Magnesium 2.0 Total Bilirubin Direct Bilirubin AST ALT Alkaline Phosphatase Total Creatine Kinase Total Protein Albumin Vitamin B12 633 Folate 2.9 L TSH 0.10 L Free T4 Stool Occult Blood Influenza Type A (PCR) Influenza Type B (PCR) RSV RNA Qual (PCR) SARS-CoV-2 RNA (RT-PCR) Assessment and Plan (1) Hyperkalemia: Status: Acute Plan 67M PMH esrd, hfpef, severe as s/p bioavr, htn, hld, hypothryoid, mood disorder presented with weakness. ESRD with hyperkalemia, hyperphosphatemia HD, monitor weakness/deconditioning pt eval htn losartan chronic hfpef stable hd, torsemide hypothryoid synthroid dvt prophylaxis - hep sq full code reason for continued hospitalization:safe dispo, HD Quality Stroke Does the patient have a stroke diagnosis?: No VTE Prior VTE?: No VTE Risk Level:: Medical - moderate - high VTE Device Contraindication: N/A - Device Ordered VTE Drug Contraindication: Treatment Not Indicated
[2023-08-20] MEDS: Heparin Sodium,Porcine 5,000 UNIT/ML VIAL 5000 UNIT SUBCUT (08:53)
--- NOTE | 2023-08-20 09:06 | MHC.CM.PN ---
IMM 2/. DCP TBD, likely needs LTC placement. Pt was discharged from [facility] yesterday (was there for STR) and returned home where he lives alone. Pt was unable to care for himself at home. Pt states he is in need of assisted care as he cannot care for himself any longer. Pt did have [facility] services 2x/wk, and went to HD at [facility] on . Pt states he used a walker and wheelchair. Pt asked this CM to call his mother/HCP (HCP on file), Karie to discuss LTC. 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 Transport will be via BLS. PCP: Dr. Segundo Tapia
--- NOTE | 2023-08-20 11:33 | PM.DS ---
DS: Providers Provider Date of Service: 08/20/23 Date of admission: 08/19/23 18:36 Primary care physician: Segundo Tapia MD Consults: 08/19/23 18:43 Consult to Nephrology Routine Consulting Provider: Tone Russo Reason for consultation: HD MWF, d/c'd yesterday from STR ?missed dialysis on Wed, has elect abnorma DS: Diagnosis Discharge Diagnosis (1) Hyperkalemia: Status: Acute DS: Summary Hospital Course Hospital Course: from initial hpi: 67-year-old male with a PMH significant for?ESRD on HD M/W/F d/t nephrotic syndrome, HFpEF, severe s/p bioAVR 07/2022, hypothyroidism, HTN, HLD, and mood disorder who presents to the ED for evaluation of weakness, difficulty ambulating, and inability to take care of self at home. Patient with multiple recent hospitalizations in the past month. Was admitted to hospital on 07/18/2023-07/25/2023 and diagnosed with COVID-19 infection and MSSA bacteremia secondary to an infected PermCath. Was at home on IV cefazolin to be administered after hemodialysis. At that time patient was evaluated for physical deconditioning by PT who recommended STIR, but patient instead wanted to be discharged home. He came back 1 day later due to weakness and being unable to care for self. PT again recommended STIR and patient was sent to [facility], where he was discharged yesterday. Patient reports he went home but felt weak, unable to move around his apartment, and unable to care for himself. Patient called EMS to be brought to the hospital for further evaluation, stating his goal is ?to get to a snf where I guess all live the rest of my life. He is unable to state whether he had HD yesterday at [facility] before discharge, but believes he did not. Patient denies chest pain/pressure, palpitations. No shortness of breath. Denies fever, chills, nausea, vomiting, abdominal pain. No diarrhea. Patient does not make urine. Denies history of hemorrhoids. No hematochezia or melena. In the ED pt was tachypneic up to 23 though vital signs otherwise largely WNL. Labs were significant for potassium 5.4, BUN 43, creatinine 12.02, phosphorus 4.9, and stool positive for occult blood. Otherwise noncontributory. CXR showed platelike atelectasis of right lung base. EKG demonstrated sinus rhythm with first-degree AV block but no evidence of ST elevations or depressions. Pt will be admitted to the hospital for treatment and further evaluation of electrolyte abnormalities secondary to missed hemodialysis, and generalized weakness and deconditioning secondary to prolonged hospital and rehab stays. hospital course: Patient was admitted for end-stage renal disease with hyperkalemia and hyperphosphatemia. He was given hemodialysis and electrolytes improved. For weakness plan is to return to half-way facility. For hypertension was continued on losartan. For chronic heart failure with preserved ejection fraction he remained stable on torsemide. For hypothyroidism was continued on Synthroid. Time Attestation Discharge coordination time: Greater than 30 minutes Quality: Safe Use of Opioids Does Pt have an Active Cancer Diagnosis on the Problem List?: No Quality: Stroke Does the patient have a stroke diagnosis?: No Physical Exam Vital Signs: Vital Signs: Last Vital Signs Temp 98.5 F 08/20/23 07:07 Pulse 68 08/20/23 07:07 Resp 20 08/20/23 07:07 BP 130/59 L 08/20/23 07:07 Pulse Ox 95 08/20/23 07:07 O2 Del Method Room Air 08/20/23 07:07 BMI result Body Mass Index 31.4 General: AO X 3, no acute distress Resp: CTA bilateral, no accessory muscles used CVS: S1,S2,RRR GI: soft, non tender, non distended Neuro: motor grossly intact, alert Psych: appropriate affect, appropriate insight DS: Data Data Completed and Pending Completed studies during hospitalization [Text1]: Procedures Drainage of Right Pleural Cavity with Drainage Device, Percutaneous Approach (10/28/22) Extraction of Right Inguinal Lymphatic, Percutaneous Approach, Diagnostic (04/23/20) Fluoroscopy of Superior Vena Cava, Guidance (10/28/22) Insertion of Infusion Device into Right Atrium, Percutaneous Approach (03/12/23) Insertion of Infusion Device into Superior Vena Cava, Percutaneous Approach (07/18/23) Insertion of Tunneled Vascular Access Device into Chest Subcutaneous Tissue and Fascia, Percutaneous Approach (07/18/23) Introduction of Remdesivir Anti-infective into Peripheral Vein, Percutaneous Approach, [employer] (07/18/23) Performance of Urinary Filtration, Intermittent, Less than 6 Hours Per Day (07/18/23) Removal of Infusion Device from [place], External Approach (10/28/22) Removal of Infusion Device from [place], Percutaneous Approach (03/12/23) Removal of Tunneled Vascular Access Device from Trunk Subcutaneous Tissue and Fascia, Open Approach (07/18/23) Transfusion of Nonautologous Red Blood Cells into Peripheral Vein, Percutaneous Approach (03/12/23) Ultrasonography of Superior Vena Cava, Guidance (07/18/23) Labs on day of discharge: Laboratory Results - last 24 hr 08/19/23 08/19/23 08/19/23 14:20 15:00 15:06 WBC 3.9 L RBC 3.07 L Hgb 9.6 L Hct 29.8 L MCV 97.1 MCH 31.3 MCHC 32.2 RDW 15.6 Plt Count 279 MPV 9.1 L Immature Gran % (Auto) 2.1 H Neut % (Auto) 37.5 L Lymph % (Auto) 28.1 [place] % (Auto) 22.6 H Eos % (Auto) 9.4 H Baso % (Auto) 0.3 Lymph # (Auto) 1.1 L [place] # (Auto) 0.9 Eos # (Auto) 0.4 Baso # (Auto) 0.0 Abs Immat Gran (auto) 0.08 H Absolute Neuts (auto) 1.5 L Absolute Nucleated RBC 0.000 Nucleated RBC % (auto) 0.0 Smear Tech's Comments VERIFIED VBG pH 7.53 H VBG pCO2 39 VBG pO2 123 VBG HCO3 32 H VBG O2 Saturation 100.0 VBG Base Excess 9.5 Sodium 137 Potassium 5.4 H D Chloride 96 Carbon Dioxide 28 Anion Gap 18 BUN 43 H Creatinine 12.02 H* Estim Creat Clear Calc 7.3 Estimated GFR 4 POC Glucose Random Glucose 84 Calcium 9.0 Phosphorus 4.9 H Magnesium 1.9 Total Bilirubin 0.3 Direct Bilirubin 0.1 AST 9 ALT < 5 Alkaline Phosphatase 97 Total Creatine Kinase 29 L Total Protein 7.5 Albumin 3.3 L Vitamin B12 Folate TSH 0.09 L Free T4 1.07 Stool Occult Blood POSITIVE Influenza Type A (PCR) NEGATIVE Influenza Type B (PCR) NEGATIVE RSV RNA Qual (PCR) NEGATIVE SARS-CoV-2 RNA (RT-PCR) NEGATIVE 08/19/23 08/19/23 08/20/23 20:53 23:55 06:23 WBC 3.9 L RBC 2.95 L Hgb 9.2 L Hct 28.6 L MCV 96.9 MCH 31.2 MCHC 32.2 RDW 15.5 Plt Count 268 MPV 9.3 L Immature Gran % (Auto) Neut % (Auto) Lymph % (Auto) [place] % (Auto) Eos % (Auto) Baso % (Auto) Lymph # (Auto) [place] # (Auto) Eos # (Auto) Baso # (Auto) Abs Immat Gran (auto) Absolute Neuts (auto) Absolute Nucleated RBC 0.000 Nucleated RBC % (auto) 0.0 Smear Tech's Comments VBG pH VBG pCO2 VBG pO2 VBG HCO3 VBG O2 Saturation VBG Base Excess Sodium 140 Potassium 4.8 Chloride 98 Carbon Dioxide 27 Anion Gap 20 BUN 46 H Creatinine 13.67 H* Estim Creat Clear Calc 6.3 Estimated GFR 4 POC Glucose 164 H Random Glucose 95 Calcium 8.8 Phosphorus Magnesium 2.0 Total Bilirubin Direct Bilirubin AST ALT Alkaline Phosphatase Total Creatine Kinase Total Protein Albumin Vitamin B12 633 Folate 2.9 L TSH 0.10 L Free T4 Stool Occult Blood Influenza Type A (PCR) Influenza Type B (PCR) RSV RNA Qual (PCR) SARS-CoV-2 RNA (RT-PCR) Discharge Plan Discharge Anticipated Discharge Date/Time: 08/20/23 11:31 Patient Disposition: Xfer [facility] Discharge Diagnosis: weakness Referrals: Segundo Tapia MD [Primary Care Provider] - 1 Week Discharge Medications: Continued levothyroxine 75 mcg Tablet 75 mcg PO DAILY@0600 atorvastatin 40 mg tablet 40 mg PO BEDTIME sertraline 25 mg tablet 1 tab PO DAILY sevelamer carbonate 2.4 gram Powder In Packet 2.4 g PO SUMOWEFR@1700 sevelamer carbonate 2.4 gram Powder In Packet 2.4 g PO SUMOWEFR@0800,1200 calcium carbonate 400 mg calcium (1,000 mg) Tablet,Chewable 400 mg PO DAILY PRN (Reason: Heartburn) esomeprazole magnesium 40 mg Capsule,Delayed Release(Dr/Ec) 40 mg PO DAILY ergocalciferol (vitamin D2) 50 mcg (2,000 unit) Capsule 50 mcg PO DAILY losartan 50 mg tablet 50 mg PO DAILY torsemide 20 mg tablet 40 mg PO BID@0900,1400 calcium carbonate [Ultra Strength Antacid] 400 mg calcium (1,000 mg) tablet,chewable 400 mg PO MOWEFR Discharge Orders: Discharge Order (Routine); Ordered 08/20/23 Ordered By: Paul Welch Diet: Advance to usual diet Activity on Discharge: As tolerated Stand Alone Forms: Patient Portal Discharge page Care Plan Goals: recovery Health Concerns: weakness Plan of Treatment: rehab Assessment: see above
--- NOTE | 2023-08-20 15:27 | MHC.CM.PN ---
[facility] offered pt a bed today, pt will transport there at 4pm via BLS/[facility]. Per pts request this CM called his mother/HCP Karie to notify.
== END 2023-08-20 17:55 | disposition home or self-care (01) | DRG 640 ==
LOC: HO.ED 17:57 → HO.EDOVER 18:47 → HO.IMC 19:35
PROVIDERS: Student in an Organized Health Care Education/Training Program; Admitting Provider Student in an Organized Health Care Education/Training Program; Emergency Provider Emergency Medicine Emergency Medical Services; PCP Internal Medicine; Visit Provider Internal Medicine
DX: E87.5 Hyperkalemia (principal); N18.6 End stage renal disease; I13.2 Hypertensive heart and chronic kidney disease with heart failure and with stage 5 chronic kidney disease, or end stage renal disease; I50.32 Chronic diastolic (congestive) heart failure; I25.10 Atherosclerotic heart disease of native coronary artery without angina pectoris; E78.5 Hyperlipidemia, unspecified; R19.5 Other fecal abnormalities; E83.39 Other disorders of phosphorus metabolism; Z99.2 Dependence on renal dialysis; E03.9 Hypothyroidism, unspecified; Z91.158 Patient's noncompliance with renal dialysis for other reason; Z87.891 Personal history of nicotine dependence; Z20.822 Contact with and (suspected) exposure to COVID-19; Z95.2 Presence of prosthetic heart valve; Z79.890 Hormone replacement therapy; Z79.899 Other long term (current) drug therapy
CPT/HCPCS: 0241U; 36415; 71045; 80048; 80076; 82272; 82550; 82607; 82746; 82803; 82947; 83735; 84100; 84439; 84443; 85025; 85027; 90999; 93005; 99285; C9113; J1644

== ENCOUNTER → 2023-08-19 13:24 | Outpatient (BNV) | payer MEDICARE, MEDICAID, SELFPAY | PROVIDERS: Emergency Provider Emergency Medicine Emergency Medical Services; PCP Internal Medicine; Visit Provider Internal Medicine Cardiovascular Disease | DX: I44.0 Atrioventricular block, first degree (principal) | CPT/HCPCS: 93010 ==

== ENCOUNTER → 2023-08-19 18:36 | Outpatient (BNV) | payer MEDICARE, MEDICAID, SELFPAY | PROVIDERS: Admitting Provider Student in an Organized Health Care Education/Training Program; Emergency Provider Emergency Medicine Emergency Medical Services; PCP Internal Medicine; Visit Provider Student in an Organized Health Care Education/Training Program | DX: E87.5 Hyperkalemia (principal); N18.6 End stage renal disease; Z99.2 Dependence on renal dialysis | CPT/HCPCS: 99223; 99239 ==

== ENCOUNTER 2023-09-13 06:07 | Outpatient (REF) | payer MEDICARE, MEDICAID, SELFPAY ==
[2023-09-13 06:39] LABS: Basophils Percent Auto 0.7 % (0-2); Eosinophils Absolute Auto 0.4 X10*3/uL (0.0-0.4); Hematocrit 29.4 % (42.0-52.0); Hemoglobin 9.7 g/dl (14.0-18.0); Imm Gran Abs Auto 0.03 X10*3/uL (0.00-0.03); Imm Gran Pct Auto 0.7 % (0.0-0.4); Lymphocytes Absolute Auto 1.1 X10*3/uL (1.2-4.9); Lymphocytes Percent Auto 24.8 % (20-40); MANUAL DIFF FLAG SCAN; Mean Corpuscular Hemoglobin 31.4 pg (27.0-33.0); Mean Corpuscular Volume 95.1 fL (80.0-98.0); Mean Platelet Volume 9.5 fL (9.4-12.4); Monocytes Absolute Auto 0.9 X10*3/uL (0.1-1.2); Monocytes Percent Auto 20.4 % (2-11); Neutrophils Absolute Auto 1.9 x10*3/uL (2.0-8.3); Neutrophils Percent Auto 44.4 % (45-73); Platelet Count 313 X10*3/uL (160-400); Red Blood Count 3.09 X10*6/uL (4.60-5.80); Red Cell Distribution Width 13.9 % (11.0-16.0); SCAN SMEAR FLAG 1; White Blood Count 4.3 X10*3/uL (4.8-10.8)
[2023-09-13 07:21] LABS: Anion Gap 16 (12-20); Blood Urea Nitrogen 26 mg/dL (9-16); Carbon Dioxide 29 mmol/L (22-29); Chloride 94 mmol/L (96-108); Glucose Random 89 mg/dL (60-115); Potassium 3.4 mmol/L (3.3-5.1); Sodium 136 mmol/L (135-145)
[2023-09-13 07:25] LABS: SLIDE REVIEW VERIFIED
[2023-09-13 07:32] LABS: Estimated Glomerular Filt Rate 6
== END 2023-09-13 06:08 | disposition home or self-care (01) ==
LOC: HO.MMNH1L 06:07
PROVIDERS: Visit Provider Family Medicine
DX: Z02.2 Encounter for examination for admission to residential institution (principal); N18.6 End stage renal disease
CPT/HCPCS: 36415; 80048; 85025

== ENCOUNTER 2023-09-20 06:16 | Outpatient (REF) | payer MEDICARE, MEDICAID, SELFPAY ==
[2023-09-20 05:52] LABS: MANUAL DIFF FLAG NO
[2023-09-20 06:13] LABS: Basophils Percent Auto 0.6 % (0-2); Eosinophils Absolute Auto 0.4 X10*3/uL (0.0-0.4); Eosinophils Percent Auto 7.8 % (0-4); Hemoglobin 9.7 g/dl (14.0-18.0); Imm Gran Abs Auto 0.03 X10*3/uL (0.00-0.03); Imm Gran Pct Auto 0.6 % (0.0-0.4); Lymphocytes Absolute Auto 1.1 X10*3/uL (1.2-4.9); Lymphocytes Percent Auto 23.3 % (20-40); Mean Corpuscular HGB Conc 33.4 g/dl (31.0-36.0); Mean Corpuscular Hemoglobin 31.6 pg (27.0-33.0); Mean Corpuscular Volume 94.5 fL (80.0-98.0); Mean Platelet Volume 9.4 fL (9.4-12.4); Monocytes Percent Auto 19.6 % (2-11); Neutrophils Absolute Auto 2.3 x10*3/uL (2.0-8.3); Neutrophils Percent Auto 48.1 % (45-73); Platelet Count 257 X10*3/uL (160-400); Red Blood Count 3.07 X10*6/uL (4.60-5.80); Red Cell Distribution Width 14.8 % (11.0-16.0); White Blood Count 4.9 X10*3/uL (4.8-10.8)
[2023-09-20 07:07] LABS: Anion Gap 15 (12-20); Blood Urea Nitrogen 27 mg/dL (9-16); Calcium 9.5 mg/dL (8.4-10.2); Carbon Dioxide 30 mmol/L (22-29); Chloride 96 mmol/L (96-108); Estimated Glomerular Filt Rate 6; Glucose Random 93 mg/dL (60-115); Potassium 3.2 mmol/L (3.3-5.1); Sodium 138 mmol/L (135-145)
== END 2023-09-20 06:17 | disposition home or self-care (01) ==
LOC: HO.MMNH1L 06:16
PROVIDERS: Visit Provider Family Medicine
DX: Z02.2 Encounter for examination for admission to residential institution (principal); N18.6 End stage renal disease
CPT/HCPCS: 36415; 80048; 85025

== ENCOUNTER 2023-09-27 06:37 | Outpatient (REF) | payer MEDICARE, MEDICAID, SELFPAY ==
[2023-09-27 05:59] LABS: MANUAL DIFF FLAG NO
[2023-09-27 06:35] LABS: Basophils Percent Auto 0.4 % (0-2); Eosinophils Absolute Auto 0.4 X10*3/uL (0.0-0.4); Eosinophils Percent Auto 7.5 % (0-4); Hematocrit 29.1 % (42.0-52.0); Hemoglobin 9.6 g/dl (14.0-18.0); Imm Gran Abs Auto 0.01 X10*3/uL (0.00-0.03); Imm Gran Pct Auto 0.2 % (0.0-0.4); Lymphocytes Absolute Auto 1.1 X10*3/uL (1.2-4.9); Lymphocytes Percent Auto 22.7 % (20-40); Mean Corpuscular Hemoglobin 32.1 pg (27.0-33.0); Mean Corpuscular Volume 97.3 fL (80.0-98.0); Mean Platelet Volume 9.5 fL (9.4-12.4); Monocytes Absolute Auto 0.8 X10*3/uL (0.1-1.2); Monocytes Percent Auto 16.4 % (2-11); Neutrophils Absolute Auto 2.6 x10*3/uL (2.0-8.3); Neutrophils Percent Auto 52.8 % (45-73); Platelet Count 238 X10*3/uL (160-400); Red Blood Count 2.99 X10*6/uL (4.60-5.80); Red Cell Distribution Width 14.6 % (11.0-16.0); White Blood Count 4.9 X10*3/uL (4.8-10.8)
[2023-09-27 07:09] LABS: Anion Gap 16 (12-20); Blood Urea Nitrogen 26 mg/dL (9-16); Calcium 9.5 mg/dL (8.4-10.2); Carbon Dioxide 31 mmol/L (22-29); Chloride 98 mmol/L (96-108); Estimated Glomerular Filt Rate 6; Glucose Random 94 mg/dL (60-115); Potassium 3.2 mmol/L (3.3-5.1); Sodium 142 mmol/L (135-145)
== END 2023-09-27 06:38 | disposition home or self-care (01) ==
LOC: HO.MMNH1L 06:37
PROVIDERS: Visit Provider Family Medicine
DX: Z02.2 Encounter for examination for admission to residential institution (principal); N18.6 End stage renal disease
CPT/HCPCS: 36415; 80048; 85025

== ENCOUNTER 2023-10-04 07:20 | Outpatient (REF) | payer MEDICARE, MEDICAID, SELFPAY ==
[2023-10-04 06:35] LABS: MANUAL DIFF FLAG NO
[2023-10-04 07:09] LABS: Basophils Percent Auto 0.6 % (0-2); Eosinophils Absolute Auto 0.4 X10*3/uL (0.0-0.4); Eosinophils Percent Auto 7.8 % (0-4); Hematocrit 30.7 % (42.0-52.0); Imm Gran Abs Auto 0.02 X10*3/uL (0.00-0.03); Imm Gran Pct Auto 0.4 % (0.0-0.4); Lymphocytes Absolute Auto 1.1 X10*3/uL (1.2-4.9); Lymphocytes Percent Auto 24.2 % (20-40); Mean Corpuscular HGB Conc 32.6 g/dl (31.0-36.0); Mean Corpuscular Hemoglobin 31.5 pg (27.0-33.0); Mean Corpuscular Volume 96.8 fL (80.0-98.0); Mean Platelet Volume 9.6 fL (9.4-12.4); Monocytes Absolute Auto 0.7 X10*3/uL (0.1-1.2); Monocytes Percent Auto 15.1 % (2-11); Neutrophils Absolute Auto 2.4 x10*3/uL (2.0-8.3); Neutrophils Percent Auto 51.9 % (45-73); Platelet Count 234 X10*3/uL (160-400); Red Blood Count 3.17 X10*6/uL (4.60-5.80); Red Cell Distribution Width 14.2 % (11.0-16.0); White Blood Count 4.6 X10*3/uL (4.8-10.8)
[2023-10-04 08:00] LABS: Anion Gap 17 (12-20); Blood Urea Nitrogen 25 mg/dL (9-16); Calcium 9.4 mg/dL (8.4-10.2); Carbon Dioxide 28 mmol/L (22-29); Chloride 96 mmol/L (96-108); Glucose Random 78 mg/dL (60-115); Potassium 3.6 mmol/L (3.3-5.1); Sodium 137 mmol/L (135-145)
[2023-10-04 08:16] LABS: Estimated Glomerular Filt Rate 6
== END 2023-10-04 07:21 | disposition home or self-care (01) ==
LOC: HO.MMNH1L 07:20
PROVIDERS: Visit Provider Family Medicine
DX: Z02.2 Encounter for examination for admission to residential institution (principal); N18.6 End stage renal disease
CPT/HCPCS: 36415; 80048; 85025

== ENCOUNTER 2023-10-11 06:14 | Outpatient (REF) | payer MEDICARE, MEDICAID, SELFPAY ==
[2023-10-11 06:03] LABS: MANUAL DIFF FLAG NO
[2023-10-11 07:13] LABS: Basophils Absolute Auto 0.1 X10*3/uL (0.0-0.2); Eosinophils Absolute Auto 0.4 X10*3/uL (0.0-0.4); Eosinophils Percent Auto 7.3 % (0-4); Hematocrit 31.4 % (42.0-52.0); Hemoglobin 10.2 g/dl (14.0-18.0); Imm Gran Abs Auto 0.02 X10*3/uL (0.00-0.03); Imm Gran Pct Auto 0.4 % (0.0-0.4); Lymphocytes Percent Auto 21.3 % (20-40); Mean Corpuscular HGB Conc 32.5 g/dl (31.0-36.0); Mean Corpuscular Hemoglobin 31.8 pg (27.0-33.0); Mean Corpuscular Volume 97.8 fL (80.0-98.0); Mean Platelet Volume 9.5 fL (9.4-12.4); Monocytes Absolute Auto 0.8 X10*3/uL (0.1-1.2); Monocytes Percent Auto 15.8 % (2-11); Neutrophils Absolute Auto 2.6 x10*3/uL (2.0-8.3); Neutrophils Percent Auto 54.2 % (45-73); Platelet Count 258 X10*3/uL (160-400); Red Blood Count 3.21 X10*6/uL (4.60-5.80); Red Cell Distribution Width 13.7 % (11.0-16.0); White Blood Count 4.8 X10*3/uL (4.8-10.8)
[2023-10-11 08:00] LABS: Anion Gap 19 (12-20); Blood Urea Nitrogen 31 mg/dL (9-16); Calcium 9.5 mg/dL (8.4-10.2); Carbon Dioxide 28 mmol/L (22-29); Chloride 95 mmol/L (96-108); Glucose Random 79 mg/dL (60-115); Potassium 3.6 mmol/L (3.3-5.1); Sodium 138 mmol/L (135-145)
[2023-10-11 08:55] LABS: Estimated Glomerular Filt Rate 6
== END 2023-10-11 06:15 | disposition home or self-care (01) ==
LOC: HO.MMNH1L 06:14
PROVIDERS: Visit Provider Family Medicine
DX: Z02.2 Encounter for examination for admission to residential institution (principal); N18.6 End stage renal disease
CPT/HCPCS: 36415; 80048; 85025

== ENCOUNTER 2023-10-18 06:48 | Outpatient (REF) | payer MEDICARE, MEDICAID, SELFPAY ==
[2023-10-18 05:55] LABS: MANUAL DIFF FLAG NO
[2023-10-18 06:28] LABS: Basophils Percent Auto 0.8 % (0-2); Eosinophils Absolute Auto 0.4 X10*3/uL (0.0-0.4); Eosinophils Percent Auto 7.6 % (0-4); Hematocrit 35.1 % (42.0-52.0); Hemoglobin 11.3 g/dl (14.0-18.0); Imm Gran Abs Auto 0.01 X10*3/uL (0.00-0.03); Imm Gran Pct Auto 0.2 % (0.0-0.4); Lymphocytes Absolute Auto 1.3 X10*3/uL (1.2-4.9); Lymphocytes Percent Auto 24.6 % (20-40); Mean Corpuscular HGB Conc 32.2 g/dl (31.0-36.0); Mean Corpuscular Hemoglobin 31.8 pg (27.0-33.0); Mean Corpuscular Volume 98.9 fL (80.0-98.0); Mean Platelet Volume 9.4 fL (9.4-12.4); Monocytes Absolute Auto 0.8 X10*3/uL (0.1-1.2); Monocytes Percent Auto 15.4 % (2-11); Neutrophils Absolute Auto 2.6 x10*3/uL (2.0-8.3); Neutrophils Percent Auto 51.4 % (45-73); Platelet Count 257 X10*3/uL (160-400); Red Blood Count 3.55 X10*6/uL (4.60-5.80); Red Cell Distribution Width 13.9 % (11.0-16.0); White Blood Count 5.1 X10*3/uL (4.8-10.8)
[2023-10-18 06:50] LABS: Anion Gap 19 (12-20); Blood Urea Nitrogen 36 mg/dL (9-16); Carbon Dioxide 27 mmol/L (22-29); Chloride 98 mmol/L (96-108); Estimated Glomerular Filt Rate 6; Glucose Random 92 mg/dL (60-115); Potassium 4.1 mmol/L (3.3-5.1); Sodium 140 mmol/L (135-145)
== END 2023-10-18 06:49 | disposition home or self-care (01) ==
LOC: HO.MMNH1L 06:48
PROVIDERS: Visit Provider Family Medicine
DX: Z02.2 Encounter for examination for admission to residential institution (principal); N18.6 End stage renal disease
CPT/HCPCS: 36415; 80048; 85025

== ENCOUNTER 2023-10-25 06:07 | Outpatient (REF) | payer MEDICARE, MEDICAID, SELFPAY ==
[2023-10-25 05:59] LABS: MANUAL DIFF FLAG NO
[2023-10-25 06:54] LABS: Basophils Percent Auto 0.7 % (0-2); Eosinophils Absolute Auto 0.3 X10*3/uL (0.0-0.4); Eosinophils Percent Auto 7.2 % (0-4); Hemoglobin 10.9 g/dl (14.0-18.0); Imm Gran Abs Auto 0.01 X10*3/uL (0.00-0.03); Imm Gran Pct Auto 0.2 % (0.0-0.4); Lymphocytes Absolute Auto 1.1 X10*3/uL (1.2-4.9); Lymphocytes Percent Auto 24.3 % (20-40); Mean Corpuscular HGB Conc 32.1 g/dl (31.0-36.0); Mean Corpuscular Hemoglobin 31.5 pg (27.0-33.0); Mean Corpuscular Volume 98.3 fL (80.0-98.0); Mean Platelet Volume 9.8 fL (9.4-12.4); Monocytes Absolute Auto 0.7 X10*3/uL (0.1-1.2); Monocytes Percent Auto 15.1 % (2-11); Neutrophils Absolute Auto 2.3 x10*3/uL (2.0-8.3); Neutrophils Percent Auto 52.5 % (45-73); Platelet Count 219 X10*3/uL (160-400); Red Blood Count 3.46 X10*6/uL (4.60-5.80); Red Cell Distribution Width 13.7 % (11.0-16.0); White Blood Count 4.5 X10*3/uL (4.8-10.8)
[2023-10-25 07:41] LABS: Anion Gap 17 (12-20); Blood Urea Nitrogen 28 mg/dL (9-16); Carbon Dioxide 29 mmol/L (22-29); Chloride 98 mmol/L (96-108); Glucose Random 82 mg/dL (60-115); Potassium 3.5 mmol/L (3.3-5.1); Sodium 140 mmol/L (135-145)
[2023-10-25 08:12] LABS: Estimated Glomerular Filt Rate 6
== END 2023-10-25 06:08 | disposition home or self-care (01) ==
LOC: HO.MMNH1L 06:07
PROVIDERS: Visit Provider Family Medicine
DX: Z02.2 Encounter for examination for admission to residential institution (principal); N18.6 End stage renal disease
CPT/HCPCS: 36415; 80048; 85025

== ENCOUNTER 2023-11-01 05:48 | Outpatient (REF) | payer MEDICARE, MEDICAID, SELFPAY ==
[2023-11-01 05:40] LABS: MANUAL DIFF FLAG NO
[2023-11-01 05:57] LABS: Basophils Percent Auto 0.7 % (0-2); Eosinophils Absolute Auto 0.4 X10*3/uL (0.0-0.4); Eosinophils Percent Auto 8.6 % (0-4); Hematocrit 35.5 % (42.0-52.0); Hemoglobin 11.7 g/dl (14.0-18.0); Lymphocytes Absolute Auto 1.1 X10*3/uL (1.2-4.9); Lymphocytes Percent Auto 24.5 % (20-40); Mean Corpuscular Hemoglobin 31.5 pg (27.0-33.0); Mean Corpuscular Volume 95.4 fL (80.0-98.0); Mean Platelet Volume 9.6 fL (9.4-12.4); Monocytes Absolute Auto 0.7 X10*3/uL (0.1-1.2); Monocytes Percent Auto 16.6 % (2-11); Neutrophils Absolute Auto 2.2 x10*3/uL (2.0-8.3); Neutrophils Percent Auto 49.6 % (45-73); Platelet Count 188 X10*3/uL (160-400); Red Blood Count 3.72 X10*6/uL (4.60-5.80); Red Cell Distribution Width 13.3 % (11.0-16.0); White Blood Count 4.4 X10*3/uL (4.8-10.8)
[2023-11-01 06:53] LABS: Anion Gap 14 (12-20); Blood Urea Nitrogen 33 mg/dL (9-16); Calcium 10.1 mg/dL (8.4-10.2); Carbon Dioxide 30 mmol/L (22-29); Chloride 98 mmol/L (96-108); Estimated Glomerular Filt Rate 6; Glucose Random 84 mg/dL (60-115); Potassium 3.4 mmol/L (3.3-5.1); Sodium 139 mmol/L (135-145)
== END 2023-11-01 05:49 | disposition home or self-care (01) ==
LOC: HO.MMNH1L 05:48
PROVIDERS: Visit Provider Family Medicine
DX: Z02.2 Encounter for examination for admission to residential institution (principal); N18.6 End stage renal disease
CPT/HCPCS: 36415; 80048; 85025

== ENCOUNTER 2023-11-08 05:58 | Outpatient (REF) | payer MEDICARE, MEDICAID, SELFPAY ==
[2023-11-08 05:45] LABS: MANUAL DIFF FLAG NO
[2023-11-08 06:23] LABS: Basophils Percent Auto 0.6 % (0-2); Eosinophils Absolute Auto 0.3 X10*3/uL (0.0-0.4); Eosinophils Percent Auto 6.3 % (0-4); Hematocrit 36.1 % (42.0-52.0); Imm Gran Abs Auto 0.02 X10*3/uL (0.00-0.03); Imm Gran Pct Auto 0.4 % (0.0-0.4); Lymphocytes Percent Auto 20.4 % (20-40); Mean Corpuscular HGB Conc 33.2 g/dl (31.0-36.0); Mean Corpuscular Hemoglobin 31.5 pg (27.0-33.0); Mean Corpuscular Volume 94.8 fL (80.0-98.0); Mean Platelet Volume 9.6 fL (9.4-12.4); Monocytes Absolute Auto 0.8 X10*3/uL (0.1-1.2); Monocytes Percent Auto 14.9 % (2-11); Neutrophils Absolute Auto 2.9 x10*3/uL (2.0-8.3); Neutrophils Percent Auto 57.4 % (45-73); Platelet Count 206 X10*3/uL (160-400); Red Blood Count 3.81 X10*6/uL (4.60-5.80); Red Cell Distribution Width 12.8 % (11.0-16.0); White Blood Count 5.1 X10*3/uL (4.8-10.8)
[2023-11-08 06:28] LABS: Anion Gap 15 (12-20); Blood Urea Nitrogen 33 mg/dL (9-16); Calcium 10.4 mg/dL (8.4-10.2); Carbon Dioxide 32 mmol/L (22-29); Chloride 96 mmol/L (96-108); Estimated Glomerular Filt Rate 6; Glucose Random 96 mg/dL (60-115); Potassium 3.5 mmol/L (3.3-5.1); Sodium 139 mmol/L (135-145)
== END 2023-11-08 05:59 | disposition home or self-care (01) ==
LOC: HO.MMNH1L 05:58
PROVIDERS: Visit Provider Family Medicine
DX: Z02.2 Encounter for examination for admission to residential institution (principal); N18.6 End stage renal disease
CPT/HCPCS: 36415; 80048; 85025

== ENCOUNTER 2023-11-15 05:58 | Outpatient (REF) | payer MEDICARE, MEDICAID, SELFPAY ==
[2023-11-15 05:50] LABS: MANUAL DIFF FLAG NO
[2023-11-15 06:41] LABS: Basophils Percent Auto 0.7 % (0-2); Eosinophils Absolute Auto 0.4 X10*3/uL (0.0-0.4); Hematocrit 33.7 % (42.0-52.0); Hemoglobin 11.3 g/dl (14.0-18.0); Imm Gran Abs Auto 0.02 X10*3/uL (0.00-0.03); Imm Gran Pct Auto 0.3 % (0.0-0.4); Lymphocytes Absolute Auto 1.1 X10*3/uL (1.2-4.9); Lymphocytes Percent Auto 18.7 % (20-40); Mean Corpuscular HGB Conc 33.5 g/dl (31.0-36.0); Mean Corpuscular Hemoglobin 31.5 pg (27.0-33.0); Mean Corpuscular Volume 93.9 fL (80.0-98.0); Mean Platelet Volume 9.7 fL (9.4-12.4); Monocytes Absolute Auto 0.8 X10*3/uL (0.1-1.2); Monocytes Percent Auto 13.9 % (2-11); Neutrophils Absolute Auto 3.6 x10*3/uL (2.0-8.3); Neutrophils Percent Auto 60.4 % (45-73); Platelet Count 209 X10*3/uL (160-400); Red Blood Count 3.59 X10*6/uL (4.60-5.80); Red Cell Distribution Width 12.9 % (11.0-16.0)
[2023-11-15 07:21] LABS: Anion Gap 16 (12-20); Blood Urea Nitrogen 34 mg/dL (9-16); Calcium 10.4 mg/dL (8.4-10.2); Carbon Dioxide 30 mmol/L (22-29); Chloride 94 mmol/L (96-108); Estimated Glomerular Filt Rate 6; Glucose Random 90 mg/dL (60-115); Potassium 3.3 mmol/L (3.3-5.1); Sodium 137 mmol/L (135-145)
== END 2023-11-15 05:59 | disposition home or self-care (01) ==
LOC: HO.MMNH1L 05:58
PROVIDERS: Visit Provider Family Medicine
DX: Z02.2 Encounter for examination for admission to residential institution (principal); N18.6 End stage renal disease
CPT/HCPCS: 36415; 80048; 85025

== ENCOUNTER 2024-05-03 10:09 | Emergency (ER) | payer OTHER, SELFPAY ==
--- NOTE | ~2024-05-03 | XR_ITS ---
EXAMINATION: XR CHEST CLINICAL INFORMATION: Fatigue and weakness COMPARISON: 08/19/2023 TECHNIQUE: Frontal view of the chest was obtained. FINDINGS: Diffuse interstitial infiltrates are seen which are worse than on the prior exam. This may reflect pneumonia. Heart size normal with normal caliber pulmonary vessels. Sternal wires present. There is degenerative change in the shoulder joints. XR/XR chest 1V IMPRESSION: Bilateral interstitial parenchymal infiltrates likely reflective of pneumonia. Electronically signed by: Keshawn Hinojosa MD 05/03/2024 01:57 PM EDT RP
[2024-05-03 10:21] VITALS: BP 142/70; PULSE 80; O2SAT 97; BMI 35.0
--- NOTE | 2024-05-03 10:22 | ED_ITS ---
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 Admits to taking ASA, denies other anticoagulation (although per med rec appears patient is on Eliquis). Denies fever, chills, CP/SOB, vomiting, diarrhea. Admits last received full dialysis yesterday Related Data Home Medications ?Medication ?Instructions ?Recorded ?Confirmed levothyroxine 75 mcg tablet 75 mcg PO DAILY@0600 06/27/20 08/19/23 atorvastatin 40 mg tablet 40 mg PO BEDTIME 02/10/22 08/19/23 sertraline 25 mg tablet 1 tab PO DAILY 10/03/22 08/19/23 calcium carbonate (Ultra Strength 400 mg PO MOWEFR 02/16/23 08/19/23 Antacid) losartan 50 mg tablet 50 mg PO DAILY 02/16/23 08/19/23 torsemide 20 mg tablet 40 mg PO BID@0900,1400 02/16/23 08/19/23 calcium carbonate 400 mg PO DAILY PRN Heartburn 08/19/23 08/19/23 ergocalciferol (vitamin D2) 50 mcg 50 mcg PO DAILY 08/19/23 08/19/23 (2,000 unit) capsule esomeprazole magnesium 40 mg 40 mg PO DAILY HEARTBURN 08/19/23 08/19/23 capsule,delayed release sevelamer carbonate 2.4 gram oral 2.4 g PO SUMOWEFR@0800,1200 08/19/23 08/19/23 powder packet sevelamer carbonate 2.4 gram oral 2.4 g PO SUMOWEFR@1700 08/19/23 08/19/23 powder packet Allergies Allergy/AdvReac Type Severity Reaction Status Date / Time Penicillins Allergy Unknown UNKWN Verified 05/03/24 10:22 Review of Systems 2 Review of Systems: Yes all other systems are reviewed and are negative Constitutional: Constitutional: Reports as per [facility] [place] Past Medical History Attestation statement: The following information was validated with the patient. 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) Unable to assess alcohol history related to: Unknown Alcohol intake: former Comment: rings appropriately Patient Tobacco Use Status: Former Tobacco user Tobacco use type: Cigarette Years Smoked: 30 e-Cigarette/Vaping Use: Never Used Second Hand Smoke Exposure: No Advance Directives: Yes Advance Directives on File: Yes Advance Directives Date on File: 07/30/23 Do you have a plan to hurt others: No Plan service: No Current occupational status: unemployed and disabled Physical Exam 2 Vital Signs: Vital Signs: Last Vital Signs Temp 98.5 F 05/03/24 10:46 Pulse 77 05/03/24 10:46 Resp 16 05/03/24 10:46 BP 164/62 H 05/03/24 10:46 Pulse Ox 97 05/03/24 10:46 O2 Del Method Room Air 05/03/24 10:46 BMI result Body Mass Index 35.0 Const: General: cooperative, no acute distress, alert and awake O rientation/consciousness: patient oriented x3 Limitations: no limitations HEENT: Other: Dry blood noted to bilateral nares. No active bleeding appreciated. No blood in posterior oropharynx. No septal hematoma Head: Yes normal to inspection and Yes atraumatic Ears: hearing grossly normal bilaterally General nose exam: Normal external nose present Face and sinus: Yes normal facial exam Mouth: no drooling Eyes: General: appearance normal, both eyes and all related structures EOM: EOMs intact bilaterally Neck: Neck: Yes normal visual inspection and Yes no meningeal signs Resp: Effort & Inspection: normal respiratory effort and no respiratory distress Auscultation: crackles bilateral at the base Cardio: Rate: regular rate Heart sounds: S1 normal heart sound present and S2 normal heart sound present GI: Inspection: Yes normal to inspection Palpation (GI): Soft to palpation, nontender, no guarding and not rigid Skin: Rashes: no rashes Wounds: no wounds Neuro: General: patient oriented x3, tone normal, moves all extremities, no meningeal signs, no focal motor deficits and CN's II-XI intact bilaterally C ranial nerves: Yes CN's II-XII intact bilaterally Extrem: General: Yes normal to inspection Course Course Course Narrative: -1200--H&H at patient's baseline. COVID/flu/RSV negative -1252--potassium minimally elevated to 5.2. Chronic CKD > patient received dialysis yesterday, due for dialysis tomorrow 1408--XR chest 1V IMPRESSION: Bilateral interstitial parenchymal infiltrates likely reflective of pneumonia. > will give dose IV Rocephin and p.o. Azithromycin in the ED. will obtain blood cultures -69882--tbdgby troponin without rise, mi unlikely -patient does not meet inpatient criteria. Lives in assisted living. Plan for discharge back to facility. Results discussed with patient including worrisome signs and symptoms and strict return precautions, and when to return to the emergency department. They verbalized understanding and feel safe for discharge at this time. 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 On exam VSS, NAD, nontoxic appearing, lungs CTA, abdomen soft/nontender. No active epistaxis noted at present. Concern for anemia vs metabolic/infectious etiologies. Rule out atypical ACS. Lower suspicion for acute intra-abdominal pathology including appendicitis/diverticulitis pancreatitis without tenderness on exam. Unlikely dissection Plan: EKG, labs, UA, CXR, orthostatics, re-evaluate Please refer to course for remaining clinical decision making, interpretation of labs/imaging results, and discussions with consultants and/or family members. Differential Diagnosis Differential Diagnoses: The differential diagnosis associated with the presentation includes As above Admission/Observation Consideration of admission/observation: Escalation of care including admission/observation considered Lab Data MDM Lab Attestation statement: I reviewed the patient's lab results. 05/03/24 11:34 05/03/24 11:34 Labs: Lab Results 05/03/24 05/03/24 05/03/24 Range/Units 10:48 11:34 14:27 WBC 4.6 L (4.8-10.8) X10*3/uL RBC 3.35 L (4.60-5.80) X10*6/uL Hgb 11.0 L (14.0-18.0) g/dl Hct 32.6 L (42.0-52.0) % MCV 97.3 (80.0-98.0) fL MCH 32.8 (27.0-33.0) pg MCHC 33.7 (31.0-36.0) g/dl RDW 13.4 (11.0-16.0) % Plt Count 217 (160-400) X10*3/uL MPV 9.2 L (9.4-12.4) fL Immature Gran % (Auto) 0.4 (0.0-0.4) % Neut % (Auto) 76.1 H (45-73) % Lymph % (Auto) 9.0 L (20-40) % [place] % (Auto) 12.9 H (2-11) % Eos % (Auto) 0.9 (0-4) % Baso % (Auto) 0.7 (0-2) % Lymph # (Auto) 0.4 L (1.2-4.9) X10*3/uL [place] # (Auto) 0.6 (0.1-1.2) X10*3/uL Eos # (Auto) 0.0 (0.0-0.4) X10*3/uL Baso # (Auto) 0.0 (0.0-0.2) X10*3/uL Abs Immat Gran (auto) 0.02 (0.00-0.03) X10*3/uL Absolute Neuts (auto) 3.5 (2.0-8.3) x10*3/uL Absolute Nucleated RBC 0.000 (0.0-0.012) X10*3/uL Nucleated RBC % (auto) 0.0 (0.0-0.2) /100WBC PT 19.0 H (10.9-12.4) SEC INR 1.6 H (0.9-1.1) Sodium 139 (135-145) mmol/L Potassium 5.2 H D (3.3-5.1) mmol/L Chloride 99 (96-108) mmol/L Carbon Dioxide 27 (22-29) mmol/L Anion Gap 18 (12-20) BUN 38 H (9-16) mg/dL Creatinine 9.59 H* (0.5-1.4) mg/dL Estim Creat Clear Calc 8.9 Estimated GFR 5 Random Glucose 81 (60-115) mg/dL Calcium 11.2 H D (8.4-10.2) mg/dL Magnesium 2.1 (1.6-2.6) mg/dL Total Bilirubin 0.6 (0.0-1.0) mg/dL Direct Bilirubin 0.2 (0.0-0.5) mg/dL AST 10 (5-37) U/L ALT 12 (0-40) U/L Alkaline Phosphatase 81 (39-117) U/L Troponin I High Sens 34.9 36.7 H (<3.5-35.0) ng/L Total Protein 7.1 (6.5-8.0) g/dL Albumin 4.0 (3.5-5.0) g/dL Lipase 15 (8-78) U/L Influenza Type A (PCR) NEGATIVE (Negative) Influenza Type B (PCR) NEGATIVE (Negative) RSV RNA Qual (PCR) NEGATIVE (Negative) SARS-CoV-2 RNA (RT-PCR) NEGATIVE (Negative) Independent Interpretation I performed an independent interpretation of an: EKG and Plain X-Ray Radiology Impression Discussion of test interpretation with radiology: I have reviewed the radiologist's reading. Independent Historian Clinical information obtained from an independent historian. History obtained from or confirmed by: EMS External Record Review External record reviewed: Inpatient record, Office record, Outpatient record, Prior outpatient labs, Prior outpatient radiology, Primary care record and Outside ED record Tests considered The following testing was considered but not selected: As above Chronic Conditions Patient?s care impacted by: Other (CKD on HD) Social Determinants Patient?s care significantly limited by Social Determinants of Health including: Inadequate housing, Low income, Problems related to primary support group, Unemployment, Problems related to employment and Other Social Determinant of Health Discharge Plan Discharge Clinical Impression: Pneumonia Patient Disposition: Xfer SNF Transfer Details: Assisted Living Instructions: Pneumonia (ED) Prescriptions: No Action levothyroxine 75 mcg Tablet 75 mcg PO DAILY@0600 atorvastatin 40 mg tablet 40 mg PO BEDTIME sertraline 25 mg tablet 1 tab PO DAILY sevelamer carbonate 2.4 gram Powder In Packet 2.4 g PO SUMOWEFR@1700 sevelamer carbonate 2.4 gram Powder In Packet 2.4 g PO SUMOWEFR@0800,1200 calcium carbonate 400 mg calcium (1,000 mg) Tablet,Chewable 400 mg PO DAILY PRN (Reason: Heartburn) esomeprazole magnesium 40 mg Capsule,Delayed Release(Dr/Ec) 40 mg PO DAILY ergocalciferol (vitamin D2) 50 mcg (2,000 unit) Capsule 50 mcg PO DAILY losartan 50 mg tablet 50 mg PO DAILY torsemide 20 mg tablet 40 mg PO BID@0900,1400 calcium carbonate [Ultra Strength Antacid] 400 mg calcium (1,000 mg) tablet,chewable 400 mg PO MOWEFR Referrals: Physician,Unknown J [Primary Care Provider] - 3 days Print Language: Yoruba
--- NOTE | 2024-05-03 10:29 | ECG_ITS ---
Test Reason : WEAKNESS Blood Pressure : / mmHG Vent. Rate : 077 BPM Atrial Rate : 077 BPM P-R Int : 200 ms QRS Dur : 096 ms QT Int : 396 ms P-R-T Axes : 041 010 064 degrees QTc Int : 448 ms Normal sinus rhythm Normal ECG When compared with ECG of 19-AUG-2023 14:16, No significant change was found Referred By: Shanti Storm Electronically Signed By:RUT CUELLO
[2024-05-03 10:46] VITALS: BP 164/62; PULSE 77; RESP 16; TEMP 36.9; O2SAT 97
[2024-05-03 11:40] LABS: MANUAL DIFF FLAG NO
[2024-05-03 11:42] LABS: Basophils Percent Auto 0.7 % (0-2); Eosinophils Percent Auto 0.9 % (0-4); Hematocrit 32.6 % (42.0-52.0); Imm Gran Abs Auto 0.02 X10*3/uL (0.00-0.03); Imm Gran Pct Auto 0.4 % (0.0-0.4); Lymphocytes Absolute Auto 0.4 X10*3/uL (1.2-4.9); Mean Corpuscular HGB Conc 33.7 g/dl (31.0-36.0); Mean Corpuscular Hemoglobin 32.8 pg (27.0-33.0); Mean Corpuscular Volume 97.3 fL (80.0-98.0); Mean Platelet Volume 9.2 fL (9.4-12.4); Monocytes Absolute Auto 0.6 X10*3/uL (0.1-1.2); Monocytes Percent Auto 12.9 % (2-11); Neutrophils Absolute Auto 3.5 x10*3/uL (2.0-8.3); Neutrophils Percent Auto 76.1 % (45-73); Platelet Count 217 X10*3/uL (160-400); Red Blood Count 3.35 X10*6/uL (4.60-5.80); Red Cell Distribution Width 13.4 % (11.0-16.0); White Blood Count 4.6 X10*3/uL (4.8-10.8)
[2024-05-03 11:53] LABS: Influenza A PCR NEGATIVE (Negative); Influenza B PCR NEGATIVE (Negative); Resp Syncy Virus RNA Qual PCR NEGATIVE (Negative); SARS COV2 PCR INHOUSE NEGATIVE (Negative)
[2024-05-03 11:53] LABS: INTERNATIONAL NORM RATIO 1.6 (0.9-1.1)
[2024-05-03 12:10] LABS: Troponin-I High Sensitivity 34.9 ng/L (<3.5-35.0)
[2024-05-03 12:27] LABS: Alanine Aminotransferase 12 U/L (0-40); Alkaline Phosphatase 81 U/L (39-117); Anion Gap 18 (12-20); Aspartate Amino Transferase 10 U/L (5-37); Bilirubin Direct 0.2 mg/dL (0.0-0.5); Bilirubin Total 0.6 mg/dL (0.0-1.0); Blood Urea Nitrogen 38 mg/dL (9-16); Calcium 11.2 mg/dL (8.4-10.2); Carbon Dioxide 27 mmol/L (22-29); Chloride 99 mmol/L (96-108); Creatinine Clr Calc Pharmacy 8.9; Estimated Glomerular Filt Rate 5; Glucose Random 81 mg/dL (60-115); Lipase 15 U/L (8-78); Magnesium 2.1 mg/dL (1.6-2.6); Potassium 5.2 mmol/L (3.3-5.1); Sodium 139 mmol/L (135-145); Total Protein 7.1 g/dL (6.5-8.0)
[2024-05-03 14:58] LABS: Troponin-I High Sensitivity 36.7 ng/L (<3.5-35.0)
[2024-05-03 16:23] VITALS: BP 167/82; PULSE 82; RESP 16; TEMP 36.7; O2SAT 94
[2024-05-03] MEDS: Azithromycin 500 MG TABLET PO (16:25)
[2024-05-03] MEDS: cefTRIAXone sodium 1 GM VIAL IVPUSH (16:25)
--- NOTE | 2024-05-03 16:54 | PC.NURSE ---
pt is a difficult stick - refused for cultures to be obtained. provider notified/aware. abx administered w/o cultures being completed per provider order.
[2024-05-03 18:40] VITALS: BP 163/82; PULSE 82; RESP 20; O2SAT 95
[2024-05-03 19:45] VITALS: PULSE 88; RESP 16; O2SAT 98
== END 2024-05-03 16:09 | disposition skilled nursing facility (03) ==
PROVIDERS: Physician Assistant; Emergency Provider Emergency Medicine
DX: J18.9 Pneumonia, unspecified organism (principal); R04.0 Epistaxis; Z03.818 Encounter for observation for suspected exposure to other biological agents ruled out; I10 Essential (primary) hypertension; E78.5 Hyperlipidemia, unspecified
CPT/HCPCS: 0241U; 36415; 71045; 80048; 80076; 83690; 83735; 84484; 85025; 85610; 93005; 94640; 96374; 99284; 99285; J0696

== ENCOUNTER → 2024-05-03 10:29 | Outpatient (BNV) | payer OTHER, SELFPAY | PROVIDERS: Emergency Provider Emergency Medicine; Visit Provider Internal Medicine | DX: R53.1 Weakness (principal) | CPT/HCPCS: 93010 ==

== ENCOUNTER 2024-09-22 09:57 | Outpatient (AMB) | payer MEDICARE, MEDICAID, SELFPAY ==
--- NOTE | 2024-09-22 10:08 | MHC.PC.OV ---
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 Operations Specialist Required: No Allergies Penicillins Allergy (Unknown, Verified 09/22/24 10:10) UNKWN Medication List - Last Reconciled 09/22/24 by Alberto Melo MD atorvastatin 40 mg PO BEDTIME azithromycin 250 mg PO DAILY 4 days calcium carbonate (Ultra Strength Antacid) 400 mg PO MOWEFR calcium carbonate 400 mg PO DAILY PRN cefpodoxime 200 mg PO Q24H ergocalciferol (vitamin D2) 50 mcg PO DAILY esomeprazole magnesium 40 mg PO DAILY levothyroxine 75 mcg PO DAILY@0600 losartan 50 mg PO DAILY sertraline 1 tab PO DAILY sevelamer carbonate 2.4 grams PO SUMOWEFR@1700 sevelamer carbonate 2.4 grams PO SUMOWEFR@0800,1200 torsemide 40 mg PO BID@0900,1400 Tobacco use date assessed: 09/22/24 Fall risk assessment: No Falls in past year Last assessed Fall Risk: 09/22/24 Dental Screening Dental Screen Date: 09/22/24 Did you have a dental visit in the last 12 months?: No Did you have a dental problem in the last 6 months where you did not have access to dental care?: No Was dental information given to patient?: No HPI PAINT GRINDER Establish Care HPI Details New Patient? ?? Prior PCP:? Dr Silva Last office visit/CPE:? Pt uncertain Acute issue(s):? Est care Pleasant Pt is a rather poor historian ?? PMHx:? Aortic valve replacement, Hypertension, ESRD On Dialysis TuTh[facility] - Dr Ribeiro. Pt uncertain. Heart Valve problem & repair. 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 SurgHx:?Open heart surgery SocHx: Assited Living, Quit Cigs 7 - 8 yrs ago. EtOH none. 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 1. Little interest or pleasure in doing things: not at all 2. Feeling down, depressed, or hopeless: not at all 3. Trouble falling or staying asleep, or sleeping too much: not at all 4. Feeling tired or having little energy: not at all 5. Poor appetite or overeating: not at all 6. Feeling bad about yourself - or that you are a failure or have let yourself or your family down: not at all 7. Trouble concentrating on things, such as reading the newspaper or watching television: not at all 8. Moving or speaking so slowly that other people could have noticed. Or the opposite - being so fidgety or restless that you have been moving around a lot more than usual: not at all 9. Thoughts that you would be better off or of hurting yourself in some way: not at all Total score: 0 Depression Screening Interpretation: Negative Depression Screening Done: Yes 13090 - PHQ-9 Billing: Yes Source: Developed by Drs. Roland Haddad, Liss Ingram, Dieudonne Santizo and colleagues, with an educational sukumar from [employer]. Thrive Questionnaire Date Thrive assessed: 09/22/24 I am a: Patient What is your living situation today?: I have a steady place to live Within the past 12 months, did the food you bought not last and you didn't have the money to get more?: Never true Within the past 12 months, did you worry whether your food would run out before you got money to buy more?: Never true Do you have trouble paying for medicines?: No Do you have trouble getting transportation to medical appointments?: No Do you have trouble paying your heating and electricity bill?: No Do you have trouble taking care of your child, family member or friend?: No Do you have trouble with day-to-day activities such as bathing, preparing meals, shopping, managing finances, etc.?: No Are you currently unemployed and looking for a job?: I choose not to answer this question Are you interested in more education?: I choose not to answer this question Please select the resources that you would like help with: None Currently or been in a relationship where the following occur: No concerns reported THRIVE Score: 0 AUDIT C Alcohol Use Questionnaire (AUDIT-C) 1. How often do you have a drink containing alcohol?: Never Total Score: 0 MESFIN-7 AMB Questionnaire MESFIN-7 Date MESFIN - 7 assessed: 09/22/24 Feeling nervous, anxious, or on edge: 0 = Not at all Not being able to stop or control worryin = Not at all Worrying too much about different things: 0 = Not at all Trouble relaxin = Not at all Being so restless that it is hard to sit still: 0 = Not at all Becoming easily annoyed or irritable: 0 = Not at all Feeling afraid as if something awful might happen: 0 = Not at all Total MESFIN-7 score (0-4 normal; 5-9 mild; 10-14 moderate; 15-21 severe): 0 Source: Developed by Liss Denson Kurt Kroenke and colleagues, with an educational sukumar from [employer]. MESFIN-7 Assessment Billing MESFIN-7 Assessment Tool: MESFIN-7 Assessment 49277 Review of Systems Const Denies chills, Denies fatigue, Denies fever(s), Denies headache(s) and Denies weakness ENT Denies dizziness and Denies headache(s) Card Denies chest pain, Denies lightheadedness, Denies dyspnea and Denies other (Palpitations) Resp Denies cough, Denies dyspnea, Denies wheezing and Denies other ( shortness of breath) Musc Denies numbness and Denies tingling Neuro Denies dizziness, Denies headache(s), Denies numbness, Denies tingling, Denies paresthesias and Denies weakness Psych Denies anxiety and Denies depression Endo Denies fatigue Aller/Immun Denies wheezing Physical exam (Primary Care) Vital Signs: Last Vital Signs Temp 98.4 F 09/22/24 10:14 Pulse 73 09/22/24 10:14 Resp 14 09/22/24 10:14 BP 130/60 09/22/24 10:14 Pulse Ox 95 09/22/24 10:14 Oxygen Delivery Method Room Air 09/22/24 10:14 BMI result Body Mass Index 28.3 Tobacco/Smoking Status: Tobacco use Status Tobacco use date assessed 09/22/24 09/22/24 10:17 Patient Tobacco Use Status Former Tobacco user 09/22/24 10:17 Tobacco use type Cigarette 09/22/24 10:17 e-Cigarette/Vaping Use Never Used 09/22/24 10:17 PHQ-9: PHQ-9 Score PHQ-9: Total score 0 09/22/24 10:34 Depression Screening Interpretation: Negative Thrive Assessment: Date of Thrive Assessment Date Thrive assessed 09/22/24 09/22/24 10:17 Currently or been in a relationship where the following occur: No concerns reported Const General: no acute distress and well developed Nutritional Appearance: well nourished Orientation/consciousness: patient oriented x3 HENMT Head: Yes normocephalic and Yes atraumatic Eyes General: appearance normal, both eyes and all related structures Pupils: Equal, round and reactive pupils present EOM: EOMs intact bilaterally Resp Effort & Inspection: normal respiratory effort Auscultation: clear to auscultation bilaterally Cardio Rate: regular rate Rhythm: regular rhythm Heart sounds: S1 normal heart sound present, S2 normal heart sound present, no gallops, no murmurs and no rubs Neuro General: patient oriented x3 and gait normal Cranial nerves: Yes Equal, round and reactive pupils present Psych Affect: normal affect Coding Level of Care Code New Pt Level 3 (54817) Diagnoses Hypertension I10 Aortic stenosis I35.0 Renal failure N19 H/O aortic valve replacement Z95.2 History of smoking Z87.891 History of ETOH abuse F10.11 Laboratory exam ordered as part of routine general medical examination Z00.00 Additional Codes MESFIN-7 Assessment Billing - MESFIN-7 Assessment Tool: MESFIN-7 Assessment 11645 ([id number]) PHQ-9 - 27632 - PHQ-9 Billing: Yes ([id number]) Assessment & Plan Assessment & Plan (1) Hypertension: Code(s): I10 - Essential (primary) hypertension Category: Medical Plan: Blood?pressure?130/60. Continue?current?medications (2) Aortic stenosis: Code(s): I35.0 - Nonrheumatic aortic (valve) stenosis Category: Medical Plan: History?of?aortic?stenosis?and?s/p?aortic?valve?replacement Stable (3) Renal failure: Code(s): N19 - Unspecified kidney failure Category: Medical Plan: History?of?end-stage?renal?disease?and?on?dialysis?Wednesday??Wednesday Had?followed?by??[facility]. Patient?says?he?does?not?see?associate dentist?in?office, just?dialysis (4) H/O aortic valve replacement: Code(s): Z95.2 - Presence of prosthetic heart valve Category: Surgical Plan: As?above (5) History of smoking: Code(s): Z87.891 - Personal history of nicotine dependence Category: Social Hx Plan: History?of?smoking. Referred?LDCT?lung?cancer?screening (6) History of ETOH abuse: Code(s): F10.11 - Alcohol abuse, in remission Category: Medical Plan: Patient?says?he?no?longer?drinks?alcohol (7) Laboratory exam ordered as part of routine general medical examination: Code(s): Z00.00 - Encounter for general adult medical examination without abnormal findings Category: Medical Plan: Check?labs Orders: Orders Comprehensive [place]. Panel Fast Today Z00.00 - Encounter for general adult medical examination without abnormal findings Prostate Specific Antigen Scr Today Z12.5 - Encounter for screening for malignant neoplasm of prostate Lipid Panel Today Z00.00 - Encounter for general adult medical examination without abnormal findings Free T4 (Free Thyroxine) Today E03.9 - Hypothyroidism, unspecified Complete Blood Count Auto Diff Today Z00.00 - Encounter for general adult medical examination without abnormal findings Microalbumin, Random (w Creat) Today I10 - Essential (primary) hypertension UA and rflx microscopic Today Z00.00 - Encounter for general adult medical examination without abnormal findings Thyroid Stimulating Hormone Today E03.9 - Hypothyroidism, unspecified Triiodothyronine T3 Total Today E03.9 - Hypothyroidism, unspecified Referrals Lung Cancer Screening Referral Z87.891 - Personal history of nicotine dependence
[2024-09-22 10:14] VITALS: BP 130/60; PULSE 73; RESP 14; TEMP 36.9; O2SAT 95; BMI 28.3
== END 2024-09-22 10:57 | disposition home or self-care (01) ==
PROVIDERS: PCP Family Medicine; Visit Provider Family Medicine
DX: I10 Essential (primary) hypertension (principal); I35.0 Nonrheumatic aortic (valve) stenosis; N19 Unspecified kidney failure; Z95.2 Presence of prosthetic heart valve; Z87.891 Personal history of nicotine dependence; F10.11 Alcohol abuse, in remission; Z00.00 Encounter for general adult medical examination without abnormal findings

== ENCOUNTER → 2024-09-22 09:57 | Outpatient (BNVA) | payer OTHER, SELFPAY | PROVIDERS: PCP Family Medicine; Visit Provider Family Medicine | DX: I10 Essential (primary) hypertension (principal); I35.0 Nonrheumatic aortic (valve) stenosis; N19 Unspecified kidney failure; Z95.2 Presence of prosthetic heart valve; Z87.891 Personal history of nicotine dependence; F10.11 Alcohol abuse, in remission | CPT/HCPCS: 96127; 99202 ==

== ENCOUNTER 2024-12-01 09:23 | Outpatient (REF) | payer OTHER, SELFPAY ==
[2024-12-01 09:38] LABS: MANUAL DIFF FLAG NO
[2024-12-01 10:49] LABS: Basophils Absolute Auto 0.1 X10*3/uL (0.0-0.2); Basophils Percent Auto 1.1 % (0-2); Eosinophils Absolute Auto 0.2 X10*3/uL (0.0-0.4); Eosinophils Percent Auto 2.8 % (0-4); Hematocrit 29.5 % (42.0-52.0); Hemoglobin 9.9 g/dl (14.0-18.0); Imm Gran Abs Auto 0.02 X10*3/uL (0.00-0.03); Imm Gran Pct Auto 0.4 % (0.0-0.4); Lymphocytes Absolute Auto 0.8 X10*3/uL (1.2-4.9); Lymphocytes Percent Auto 15.1 % (20-40); Mean Corpuscular HGB Conc 33.6 g/dl (31.0-36.0); Mean Corpuscular Hemoglobin 33.6 pg (27.0-33.0); Mean Platelet Volume 9.7 fL (9.4-12.4); Monocytes Absolute Auto 0.6 X10*3/uL (0.1-1.2); Monocytes Percent Auto 11.5 % (2-11); Neutrophils Absolute Auto 3.7 x10*3/uL (2.0-8.3); Neutrophils Percent Auto 69.1 % (45-73); Platelet Count 238 X10*3/uL (160-400); Red Blood Count 2.95 X10*6/uL (4.60-5.80); Red Cell Distribution Width 15.2 % (11.0-16.0); White Blood Count 5.4 X10*3/uL (4.8-10.8)
[2024-12-01 11:37] LABS: Prostate Specific Antigen Scr 1.05 ng/mL (<0.05-4.0)
[2024-12-01 11:41] LABS: Alanine Aminotransferase 25 U/L (0-40); Albumin Level 4.6 g/dL (3.5-5.0); Alkaline Phosphatase 80 U/L (39-117); Anion Gap 22 (12-20); Aspartate Amino Transferase 21 U/L (5-37); Bilirubin Total 0.8 mg/dL (0.0-1.0); Blood Urea Nitrogen 40 mg/dL (9-16); Calcium 9.6 mg/dL (8.4-10.2); Carbon Dioxide 25 mmol/L (22-29); Chloride 98 mmol/L (96-108); Cholesterol 109 mg/dL (<200); Estimated Glomerular Filt Rate 8; Free T4 (Free Thyroxine) 0.98 ng/dL (0.71-1.85); Glucose Fasting 87 mg/dL (60-99); HDL Cholesterol 36 mg/dL (>40); LDL Cholesterol Calculated 61 mg/dL (<100); Sodium 140 mmol/L (135-145); Thyroid Stimulating Hormone 0.94 uIU/mL (0.32-4.0); Triglycerides 62 mg/dL (<150)
[2024-12-02 03:59] LABS: Triiodothyronine T3 Total 61 ng/dL (76-181)
== END 2024-12-01 09:24 | disposition home or self-care (01) ==
LOC: HO.LAB 09:23
PROVIDERS: PCP Family Medicine; Visit Provider Family Medicine
DX: Z00.00 Encounter for general adult medical examination without abnormal findings (principal); Z12.5 Encounter for screening for malignant neoplasm of prostate; E03.9 Hypothyroidism, unspecified
CPT/HCPCS: 36415; 80053; 80061; 84153; 84439; 84443; 84480; 85025

== ENCOUNTER 2024-12-29 11:08 | Outpatient (AMB) | payer OTHER, SELFPAY ==
--- NOTE | 2024-12-29 12:48 | MHC.PC.OV ---
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: No Allergies Penicillins Allergy (Unknown, Verified 12/29/24 12:49) UNKWN Medication List - Last Reconciled 12/29/24 by Alberto Melo MD atorvastatin 40 mg PO BEDTIME calcium carbonate (Ultra Strength Antacid) 400 mg PO MOWEFR calcium carbonate 400 mg PO DAILY PRN cefpodoxime 200 mg PO Q24H ergocalciferol (vitamin D2) 50 mcg PO DAILY esomeprazole magnesium 40 mg PO DAILY levothyroxine 75 mcg PO DAILY@0600 losartan 50 mg PO DAILY 90 days sertraline 1 tab PO DAILY sevelamer carbonate 2.4 grams PO SUMOWEFR@1700 sevelamer carbonate 2.4 grams PO SUMOWEFR@0800,1200 torsemide 40 mg PO BID@0900,1400 Tobacco use date assessed: 09/22/24 Dental Screening Dental Screen Date: 09/22/24 HPI CPE HPI Details 69 y/o male presents for a CPE with f/u labs and health maint. Labs drawn 12/01/24. Reviewed labs with pt. Worsening anemia. Creatinine level 6.70. Triglycerides 62. TC 109. LDL 61. HDL low at 36. 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 Social History Household Members: None Housing: Assisted Living Facility Do you presently have visiting nurse or other home services: Yes ([employer]/homemaker) Unable to assess alcohol history related to: Unknown Alcohol intake: former Comment: rings appropriately Patient Tobacco Use Status: Former Tobacco user Tobacco use type: Cigarette Years Smoked: 30 e-Cigarette/Vaping Use: Never Used Second Hand Smoke Exposure: No Advance Directives Date on File: 07/30/23 service: No Current occupational status: unemployed and disabled Cognitive needs: No Hearing needs: No Vision needs: No Questionnaire Thrive Questionnaire Date Thrive assessed: 09/22/24 I am a: Patient What is your living situation today?: I have a steady place to live Within the past 12 months, did the food you bought not last and you didn't have the money to get more?: Never true Within the past 12 months, did you worry whether your food would run out before you got money to buy more?: Never true Do you have trouble paying for medicines?: No Do you have trouble getting transportation to medical appointments?: No Do you have trouble paying your heating and electricity bill?: No Do you have trouble taking care of your child, family member or friend?: No Do you have trouble with day-to-day activities such as bathing, preparing meals, shopping, managing finances, etc.?: No Are you currently unemployed and looking for a job?: I choose not to answer this question Are you interested in more education?: I choose not to answer this question Please select the resources that you would like help with: None Currently or been in a relationship where the following occur: No concerns reported THRIVE Score: 0 MESFIN-7 AMB Questionnaire MESFIN-7 Date MESFIN - 7 assessed: 09/22/24 Source: Developed by Drs. Roland Haddad, Liss Ingram, Dieudonne Santizo and colleagues, with an educational sukumar from [employer]. Review of Systems Const Denies chills, Denies fatigue, Denies fever(s), Denies headache(s) and Denies weakness Eyes Denies change in vision ENT Denies dizziness, Denies headache(s), Denies hearing loss, Denies nasal congestion, Denies sinus pain, Denies sinus pressure and Denies sore throat Card Denies chest pain, Denies lightheadedness, Denies dyspnea and Denies other (palpitations) Resp Denies cough, Denies dyspnea and Denies wheezing GI Denies abdominal pain, Denies melena, Denies hematochezia, Denies change in bowel habits, Denies dyspepsia and Denies nausea Denies hematuria and Denies dysuria Musc Denies abnormal gait, Denies myalgias, Denies arthralgias, Denies numbness and Denies tingling Skin/Breast Denies rash, Denies unusual bruising and Denies wounds Neuro Denies abnormal gait, Denies dizziness, Denies headache(s), Denies memory loss, Denies numbness, Denies Sensory deficit (Neuro), Denies tingling and Denies weakness Psych Denies anxiety, Denies depression and Denies memory loss Endo Denies cold intolerance, Denies fatigue, Denies heat intolerance, Denies polydipsia and Denies polyuria Everardo/Lymph Denies easy bleeding and Denies easy bruising Aller/Immun Denies wheezing Physical exam (Primary Care) Vital Signs: Last Vital Signs Temp 97.5 F 12/29/24 12:51 Pulse 54 12/29/24 12:51 Resp 14 12/29/24 12:51 BP 100/70 12/29/24 12:51 Pulse Ox 96 12/29/24 12:51 Oxygen Delivery Method Room Air 12/29/24 12:51 BMI result Body Mass Index 29.2 Tobacco/Smoking Status: Tobacco use Status Tobacco use date assessed 09/22/24 12/29/24 12:54 Patient Tobacco Use Status Former Tobacco user 12/29/24 12:54 Tobacco use type Cigarette 12/29/24 12:54 e-Cigarette/Vaping Use Never Used 12/29/24 12:54 Thrive Assessment: Date of Thrive Assessment Date Thrive assessed 09/22/24 12/29/24 12:54 Currently or been in a relationship where the following occur: No concerns reported Const General: no acute distress, well developed, alert and awake Nutritional Appearance: well nourished Orientation/consciousness: patient oriented x3 HENMT Head: Yes normocephalic and Yes atraumatic Ears: hearing grossly normal bilaterally and TM's normal bilaterally General nose exam: Normal external nose present and Normal nares present Mouth: Normal oral and palatal mucosa present and moist mucous membranes Teeth and gingiva: dentition normal Throat: Yes posterior oropharynx normal Eyes General: appearance normal, both eyes and all related structures Pupils: Equal, round and reactive pupils present and Pupil accommodation reflex normal EOM: EOMs intact bilaterally Neck Neck: Yes normal visual inspection, Yes no lymphadenopathy and Yes trachea midline Thyroid: Thyroid normal Carotids: no bruits Lymphatic: no lymphadenopathy noted Chest Chest palpation & inspection: normal inspection of the chest Resp Effort & Inspection: normal respiratory effort Auscultation: clear to auscultation bilaterally Cardio Rate: regular rate Rhythm: regular rhythm Heart sounds: S1 normal heart sound present, S2 normal heart sound present, no gallops, Murmur heart sound present systolic and no rubs Bruits: no abdominal aortic bruits and no carotid bruits GI Palpation (GI): No Abdominal aortic bruit present, Soft to palpation, nontender, No hepatosplenomegaly present and No Rebound tenderness present Auscultation: normal bowel sounds General: Yes no CVA tenderness Back/Spine/Pelvis Back: no CVA tenderness Cervical Spine: cervical ROM normal and No Cervical spine tenderness Thoracic/Lumbar Spine: thoraco-lumbar ROM normal, No pain with thoraco-lumbar ROM, No thoracic spinal tenderness and No lumbar spinal tenderness Skin Lesions: no lesions Rashes: no rashes Trauma: no lacerations or abrasions Wounds: no wounds Nails: normal Neuro General: patient oriented x3 Cranial nerves: Yes Equal, round and reactive pupils present Cognition (Neuro): normal cognition Gait exam (Neuro): Normal gait present Motor exam (neuro): 5/5 motor strength present throughout Sensory Exam: No Sensory deficit (Neuro) Deep tendon reflexes (DTR's): Right patellar reflex intensity grade: 2+ and Left patellar reflex intensity grade: 2+ Extrem General: Yes normal to inspection and No edema Psych Appearance: grossly normal Affect: normal affect Attitude: cooperative Thought process: Normal thought process present Coding Level of Care Code Est Pt Level 3 (85737) Est Pt Prev Care 40-64y(36345) Diagnoses Adult general medical exam Z00.00 Anemia D64.9 Hypertension I10 Aortic stenosis I35.0 ESRF (end stage renal failure) N18.6 Hypothyroidism E03.9 Screening for prostate cancer Z12.5 Screening for colon cancer Z12.11 Assessment & Plan Assessment & Plan (1) Adult general medical exam: Code(s): Z00.00 - Encounter for general adult medical examination without abnormal findings Category: Medical Plan: 69-year-old?male?presents?for?complete?physical?exam (2) Anemia: Code(s): D64.9 - Anemia, unspecified Category: Medical Plan: Anemia?likely?secondary?to?end-stage?renal?disease However,?H&H?is?lower?than?baseline. Will?recheck?this Referring?him?back?to?his?research program coordinator?as?well Patient?is?also?had?history?of?GI?bleeding Referred?back?to?gastroenterology (3) Hypertension: Code(s): I10 - Essential (primary) hypertension Category: Medical Plan: Blood?pressure?is?controlled.??Goal?is?less?than?130/80 (4) Aortic stenosis: Code(s): I35.0 - Nonrheumatic aortic (valve) stenosis Category: Medical Plan: History?of?aortic?stenosis Also?some?history?of?heart?failure Patient?had?been?followed?by?cardiology?in?the?past.?? Referred?back?to?Cardiology (5) ESRF (end stage renal failure): Code(s): N18.6 - End stage renal disease Category: Medical Plan: Dialysis?on?Wednesday??Wednesday Followed?by??Quintin Garcia (6) Hypothyroidism: Code(s): E03.9 - Hypothyroidism, unspecified Category: Medical Plan: TSH?and?T4?are?within?normal?range T3?slightly?low No?change?to?medications?today. Will?recheck?in?about?2?months (7) Screening for prostate cancer: Code(s): Z12.5 - Encounter for screening for malignant neoplasm of prostate Category: Medical Plan: PSA?was?within?normal?range Will?continue?annual?screening (8) Screening for colon cancer: Code(s): Z12.11 - Encounter for screening for malignant neoplasm of colon Category: Medical Plan: Referred?to?Gastroenterology Orders: Orders Comprehensive [place]. Panel Fast Today Z00.00 - Encounter for general adult medical examination without abnormal findings Free T4 (Free Thyroxine) Today E03.9 - Hypothyroidism, unspecified Triiodothyronine T3 Total Today E03.9 - Hypothyroidism, unspecified Thyroid Stimulating Hormone Today E03.9 - Hypothyroidism, unspecified Complete Blood Count Auto Diff Today D64.9 - Anemia, unspecified, Z00.00 - Encounter for general adult medical examination without abnormal findings Referrals Nephrology Referral D64.9 - Anemia, unspecified Cardiology Referral I50.30 - Unspecified diastolic (congestive) heart failure, Z95.2 - Presence of prosthetic heart valve Gastroenterology Referral D64.9 - Anemia, unspecified, Z12.11 - Encounter for screening for malignant neoplasm of colon, Z87.19 - Personal history of other diseases of the digestive system
[2024-12-29 12:51] VITALS: BP 100/70; PULSE 54; RESP 14; TEMP 36.4; O2SAT 96; BMI 29.2
== END 2024-12-29 13:26 | disposition home or self-care (01) ==
LOC: HO.HMCFM 11:09
PROVIDERS: PCP Family Medicine; Visit Provider Family Medicine
DX: Z00.00 Encounter for general adult medical examination without abnormal findings (principal); I12.0 Hypertensive chronic kidney disease with stage 5 chronic kidney disease or end stage renal disease; N18.6 End stage renal disease; D64.9 Anemia, unspecified; I35.0 Nonrheumatic aortic (valve) stenosis; E03.9 Hypothyroidism, unspecified; Z12.5 Encounter for screening for malignant neoplasm of prostate; Z12.11 Encounter for screening for malignant neoplasm of colon

== ENCOUNTER → 2024-12-29 11:08 | Outpatient (BNVA) | payer OTHER, SELFPAY | PROVIDERS: PCP Family Medicine; Visit Provider Family Medicine | DX: Z00.00 Encounter for general adult medical examination without abnormal findings (principal); E03.9 Hypothyroidism, unspecified; I35.0 Nonrheumatic aortic (valve) stenosis; I13.2 Hypertensive heart and chronic kidney disease with heart failure and with stage 5 chronic kidney disease, or end stage renal disease; N18.6 End stage renal disease; D63.1 Anemia in chronic kidney disease; I50.30 Unspecified diastolic (congestive) heart failure; Z95.2 Presence of prosthetic heart valve | CPT/HCPCS: 99212; 99397 ==

== ENCOUNTER 2025-01-03 12:55 | Outpatient (AMB) | payer OTHER, SELFPAY ==
--- NOTE | 2025-01-03 12:59 | A.OFFVIS_ITS ---
Vital Signs 01/03/25 13:01 Height 5 ft 11 in Weight 209 lb 7.026 oz BMI 29.2 BP 129/58 L Blood Pressure Location Rt brachial Position Sitting Pulse 65 Intake Visit Reasons: anemia other gastrointestinal diseases ESRD Intake Note: Milan presents in the office as a follow up for Anemia and other GI disease - ESRD. CC: Patient states he is unsure of all his medications and he states he feels good. No concerns personally but Dr Melo sent him here. Induction Heat Treater Required: No Allergies Penicillins Allergy (Unknown, Verified 01/03/25 13:06) UNKWN Medication List - Last Reconciled 01/03/25 by Bahman Rodriguez MD atorvastatin 40 mg PO BEDTIME calcium carbonate 400 mg PO DAILY PRN cefpodoxime 200 mg PO Q24H cholecalciferol (vitamin D3) PO levothyroxine 75 mcg PO DAILY@0600 losartan 50 mg PO DAILY 90 days omeprazole 40 mg PO DAILY sertraline 1 tab PO DAILY sevelamer carbonate 2.4 grams PO SUMOWEFR@1700 sevelamer carbonate 2.4 grams PO SUMOWEFR@0800,1200 sodium zirconium cyclosilicate (Lokelma) grams PO torsemide 40 mg PO BID@0900,1400 HPI HPI anemia other gastrointestinal diseases ESRD: Details: Initial GI clinic visit for this 69 YM with ESRD on HD M/W/F d/t nephrotic syndrome, HFpEF, severe s/p bioAVR 07/2022, hypothyroidism, HTN, HLD, and mood disorde referred by Dr. Rizwan HERNANDEZ for evaluation of acute on chronic anemia and concern for GI bleeding Gets HD at [facility]. Had labs at [facility] within the last 30 days. TODAY'S VISIT: Milan presents in the office as a follow up for Anemia and other GI disease - ESRD. CC: Patient states he is unsure of all his medications and he states he feels good. No concerns personally but Dr Melo sent him here. Pt is accompanied by his 89 year old Dad. Patient denies symptoms of heartburn, dysphagia, nausea, vomiting, change in appetite or weight. Denies recent change in bowel habits, constipation, diarrhea, black stools or rectal bleeding. Past smoker and quitted 10 yrs ago - smoked 1/2 to 1 PPD. Patient denies loud snoring or sleep apnea Denies problems with anesthesia in the past. Unsure if he is on chronic anticoagulation. Patient denies known family history of colon polyps, colon cancer or other GI malignancies. PAST EGD/COLONOSCOPY: Never had an EGD LABS IN [facility] : Reviewed IMAGING STUDIES: No recent GI imaging studies ENDOSCOPIC STUDIES: 09/2006 patient had a colonoscopy by Dr. Camarillo which showed diverticulosis and internal hemorrhoids. 02/2016 colonoscopy was performed by Dr. Camarillo due to heme-positive stools and showed diverticulosis and internal hemorrhoids. Follow-up colonoscopy was advised in 10 years. PAST GI HISTORY BY REVIEW OF MEDICAL RECORDS: 12/29/24 patient was seen by Dr. Hay: Labs drawn 12/01/24. Reviewed labs with pt. Worsening anemia. Creatinine level 6.70. Anemia?likely?secondary?to?end-stage?renal?disease However,?H&H?is?lower?than?baseline. 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) Unable to assess alcohol history related to: Unknown Alcohol intake: former Comment: rings appropriately Patient Tobacco Use Status: Former Tobacco user Tobacco use type: Cigarette Years Smoked: 30 e-Cigarette/Vaping Use: Never Used Second Hand Smoke Exposure: No Advance Directives Date on File: 07/30/23 service: No Current occupational status: unemployed and disabled Cognitive needs: No Hearing needs: No Vision needs: No Review of Systems Const Denies chills, Denies fatigue, Denies fever(s), Denies headache(s) and Denies weakness Eyes Denies change in vision ENT Denies dizziness, Denies headache(s), Denies hearing loss, Denies nasal congestion, Denies sinus pain, Denies sinus pressure and Denies sore throat Card Denies chest pain, Denies lightheadedness, Denies dyspnea and Denies other (palpitations) Resp Denies cough, Denies dyspnea and Denies wheezing GI Denies abdominal pain, Denies melena, Denies hematochezia, Denies change in bowel habits, Denies dyspepsia and Denies nausea Denies hematuria and Denies dysuria Musc Denies abnormal gait, Denies myalgias, Denies arthralgias, Denies numbness and Denies tingling Skin/Breast Denies rash, Denies unusual bruising and Denies wounds Neuro Denies abnormal gait, Denies dizziness, Denies headache(s), Denies memory loss, Denies numbness, Denies Sensory deficit (Neuro), Denies tingling and Denies weakness Psych Denies anxiety, Denies depression and Denies memory loss Endo Denies cold intolerance, Denies fatigue, Denies heat intolerance, Denies polydipsia and Denies polyuria Everardo/Lymph Denies easy bleeding and Denies easy bruising Aller/Immun Denies wheezing Physical Exam Const General: healthy appearing and no acute distress Nutritional Appearance: average body habitus Orientation/consciousness: patient oriented x3 Limitations: no limitations HEENT Head: Yes normal to inspection Ears: hearing grossly normal bilaterally Mouth: Normal oral and palatal mucosa present Eyes Sclerae: sclerae normal Pupils: Equal, round and reactive pupils present Neck Neck: Yes normal visual inspection Chest Chest palpation & inspection: normal inspection of the chest Resp Effort & Inspection: normal respiratory effort Auscultation: clear to auscultation bilaterally Cardio Palpation: normal PMI Rate: regular rate Rhythm: regular rhythm Heart sounds: S1 normal heart sound present, S2 normal heart sound present and Murmur heart sound present (Mechanical heart sounds with 4/6 systolic murmur at LSB) GI Palpation (GI): Soft to palpation, nontender and No hepatosplenomegaly present Auscultation: normal bowel sounds Rectal Exam - Male: Yes deferred Skin General skin exam: no rashes or lesions noted Neuro General: patient oriented x3, gait normal and moves all extremities Cranial nerves: Yes Equal, round and reactive pupils present Sensory Exam: No Sensory deficit (Neuro) Psych Appearance: grossly normal Mental Status: mental status grossly normal Assessment & Plan Assessment & Plan (1) Anemia: Code(s): D64.9 - Anemia, unspecified Category: Medical Plan 69 YM with ESRD on HD M/W/F d/t nephrotic syndrome, HFpEF, severe s/p bioAVR 07/2022, hypothyroidism, HTN, HLD, and mood disorder referred by Dr. Melo for evaluation of acute on chronic anemia and concern for GI bleeding Gets HD at [facility]. Pt denies any upper or lower GI symptoms. Acute on chronic anemia possible due to renal disease versus slow GI blood loss from Upper (Erosive esophagitis, PUD, AVMs or gastritis) or Lower (colon polyps, lower GI AVMs) GI source. Patient was advised to schedule an upper endoscopy and a colonoscopy for further evaluation - scheduled 02/09/25. EGD colonoscopy procedure, prep and potential complications including bleeding, perforation, reaction to anesthetic and aspiration were reviewed with the patient and his dad. Patient will need clearance from Cardiology. Pt is unsure if he is on oral anti-coagulation - would need to hold if he is taking them Of note last Colonoscopy was performed by Dr Camarillo in 2016 and showed diverticulosis and hemorrhoids and no polyps were detected. Patient is due for repeat colonoscopy next year Orders: Orders Complete Blood Count Auto Diff Today D64.9 - Anemia, unspecified Ferritin Today D64.9 - Anemia, unspecified IRON PROFILE Today D64.9 - Anemia, unspecified Vitamin B12 and Folate Today D64.9 - Anemia, unspecified Erythropoietin (EPO) Today D64.9 - Anemia, unspecified Coding Level of Care Code Est Pt Level 4 (84601) Diagnoses Anemia D64.9 Time Spent (min) 23
[2025-01-03 13:01] VITALS: BP 129/58; PULSE 65; BMI 29.2
== END 2025-01-03 14:15 | disposition home or self-care (01) ==
LOC: HO.HGI 12:56
PROVIDERS: PCP Family Medicine; Visit Provider Internal Medicine Gastroenterology
DX: D64.9 Anemia, unspecified (principal)
CPT/HCPCS: 99214

== ENCOUNTER → 2025-01-03 12:55 | Outpatient (BNVA) | payer OTHER, SELFPAY | PROVIDERS: PCP Family Medicine; Visit Provider Internal Medicine Gastroenterology | DX: N18.6 End stage renal disease (principal); D63.1 Anemia in chronic kidney disease; I13.2 Hypertensive heart and chronic kidney disease with heart failure and with stage 5 chronic kidney disease, or end stage renal disease; I50.30 Unspecified diastolic (congestive) heart failure; Z99.2 Dependence on renal dialysis | CPT/HCPCS: 99212 ==

== ENCOUNTER 2025-02-20 10:29 | Inpatient (IN) | payer OTHER, SELFPAY ==
--- NOTE | ~2025-02-20 | XR_ITS ---
EXAMINATION: XR CHEST 2 VIEWS HISTORY: sob COMPARISON: Comparison is made with the prior examination dated 05/03/2024. FINDINGS: PA and lateral views of the chest are submitted. There is chronic scarring in the right lower lung zone. There is right pleural thickening. There is no focal airspace opacity. There is no pleural effusion, pneumothorax, or pulmonary vascular congestion. The heart is mildly enlarged. The patient is status post post median sternotomy and valve replacement. The aorta is calcified. The bones are intact. XR/XR chest 2V IMPRESSION: No acute cardiopulmonary abnormality. Electronically signed by: Roland Lucas MD 02/20/2025 11:42 AM EDT
[2025-02-20 10:59] VITALS: BP 102/63; PULSE 91; RESP 22; TEMP 36.7; O2SAT 98; BMI 32.5
--- NOTE | 2025-02-20 11:00 | ED.SOB ---
HPI - SOB/Dyspnea General Chief Complaint: Dyspnea Stated Complaint: SOB Time Seen by Provider: 02/20/25 11:49 Source: patient and old records reviewed Mode of arrival: ambulatory Limitations: other (very poor historian does not know what his open heart surgery was) History of Present Illness ED Provider: RO WANG Narrative: 69 yo male with PMH of ESRD HD On S reports compliance, CHF, HLD, HTN, DM, cardiac cath in 2022 minimal ds noted, s/p aortic valve replacement, he is on eliquis he comes in with c/o HOPSON for 1 week. He has no chest pain, no edema. He denies fevers or cough. He states he thinks something is wrong with his heart but we cannot fix it. He missed HD today due to not feelign well. He feels he has some dyspnea laying flat as well. He denies any active symptoms while at rest. Related Data Home Medications ?Medication ?Instructions ?Recorded ?Confirmed levothyroxine 75 mcg tablet 75 mcg PO DAILY@0600 06/27/20 01/03/25 atorvastatin 40 mg tablet 40 mg PO BEDTIME 02/10/22 01/03/25 sertraline 25 mg tablet 1 tab PO DAILY 10/03/22 01/03/25 torsemide 20 mg tablet 40 mg PO BID@0900,1400 02/16/23 01/03/25 calcium carbonate 400 mg PO DAILY PRN Heartburn 08/19/23 01/03/25 sevelamer carbonate 2.4 gram oral 2.4 g PO SUMOWEFR@0800,1200 08/19/23 01/03/25 powder packet sevelamer carbonate 2.4 gram oral 2.4 g PO SUMOWEFR@1700 08/19/23 01/03/25 powder packet cholecalciferol (vitamin D3) 25 PO 01/03/25 01/03/25 mcg (1,000 unit) tablet omeprazole 40 mg capsule,delayed 40 mg PO DAILY 01/03/25 01/03/25 release sodium zirconium cyclosilicate 5 g PO 01/03/25 01/03/25 gram oral powder packet (Lokelma) Previous Rx's ?Medication ?Instructions ?Recorded cefpodoxime 200 mg tablet 200 mg PO Q24H #7 tabs 05/03/24 losartan 50 mg tablet 50 mg PO DAILY 90 days #90 tabs 10/30/24 Allergies Allergy/AdvReac Type Severity Reaction Status Date / Time Penicillins Allergy Unknown UNKWN Verified 02/20/25 11:02 Review of Systems Review of Systems: Constitutional : No Fever, No Chills, No Fatigue ENT/Mouth : No sore throat, No Rhinorrhea Eyes: No Eye Pain, No Swelling, No Redness Cardiovascular : No Chest Pain, pos SOB, pos Dyspnea on Exertion Respiratory : No Cough, No Sputum Gastrointestinal : No Nausea, No Vomiting, No Diarrhea, No abdominal Pain Genitourinary : No Dysuria, No Urinary Frequency, No Hematuria, Musculoskeletal : No joint pain, No Myalgias, No Joint Swelling Skin : No Skin Lesions, No rash Neuro : No Weakness, No Numbness, No Dizziness, no Headache All other systems reviewed and are negative [facility] Past Medical History Attestation statement: The following information was validated with the patient. 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) Unable to assess alcohol history related to: Unknown Alcohol intake: former Comment: rings appropriately Patient Tobacco Use Status: Former Tobacco user Tobacco use type: Cigarette Years Smoked: 30 e-Cigarette/Vaping Use: Never Used Second Hand Smoke Exposure: No Advance Directives: Yes Advance Directives on File: Yes Advance Directives Date on File: 07/30/23 service: No Current occupational status: unemployed and disabled Cognitive needs: No Hearing needs: No Vision needs: No Physical Exam Vital Signs: Vital Signs: Last Vital Signs Temp 98.1 F 02/20/25 10:59 Pulse 67 02/20/25 14:35 Resp 18 02/20/25 14:35 BP 102/63 02/20/25 10:59 Pulse Ox 98 02/20/25 10:59 O2 Del Method Room Air 02/20/25 10:59 BMI result Body Mass Index 32.5 Appearance: Alert. Oriented X3. No acute distress. Eyes: Pupils equal, round and reactive to light. ENT: Pharynx normal. Neck: Normal inspection. Neck supple. CVS: Normal heart rate and rhythm. Pulses normal. Respiratory: No respiratory distress. Breath sounds diminished both bases Abdomen: Soft and nontender. Skin: Skin warm and dry. pale skin color. Normal skin turgor. Extremities: No lower extremity edema. No calf ttp Neuro: Oriented X 3. No motor deficit. No sensory deficit. CN2-12 intact Course Course Course Narrative: This is a Rapid Medical Examination (RME) performed by Jamila Pierre PA-C in triage. Full HPI, ROS, assessment and treatment plan per primary provider in the Main ED. 69 yo male with history of ESRD on HD (//Wed), HFpEF, aortic stenosis hx aortic valve replacement, hx bacteremia 2/2 HD line infection, hx GI bleed who presents to the ER for evaluation of worsening HOPSON for the last week. No associated chest pain. Missed HD today because he was having SOB and HOPSON, had the transport van bring him here. Last full HD session was on Wednesday. BP 102/63. dyspneic when he ambulated into triage. harsh systolic murmur on exam w/ clear lungs. Plan: EKG, CXR, labs Medications Administered Discontinued Medications Generic Name Dose Route Start Last Admin Trade Name Freq PRN Reason Stop Dose Admin Albuterol Sulfate 2.5 mg/ 5 mg 02/20/25 14:23 02/20/25 14:35 Albuterol Sulfate 2.5 mg INHALE 02/20/25 14:24 5 mg ONCE ONE Administration Dextrose 25 gm 02/20/25 11:51 02/20/25 13:27 Dextrose 50 % 25 Gm/50 Ml Syringe IVPUSH 02/20/25 11:52 25 gm ONCE ONE Administration Calcium Gluconate 2 gm in 100 mls @ 50 mls/hr 02/20/25 11:51 02/20/25 15:31 Calcium Gluconate IV 02/20/25 13:50 Infused ONCE ONE Infusion Insulin Human Regular 5 unit 02/20/25 11:51 02/20/25 13:26 Insulin Regular, Human 100 Unit/Ml 10 Ml Vial IVPUSH 02/20/25 11:52 5 unit ONCE ONE Administration Sodium Bicarbonate 50 meq 02/20/25 14:23 02/20/25 14:57 Sodium Bicarbonate 8.4% 50 Meq/50 Ml Syringe IVPUSH 02/20/25 14:24 50 meq ONCE ONE Administration Sodium Zirconium Cyclosilicate 5 gm 02/20/25 11:51 02/20/25 13:22 Sodium Zirconium Cyclosilicate 5 Gm Powd.Pack PO 02/20/25 11:52 5 gm ONCE ONE Administration Medical Decision Making Medical Decision Making MDM Narrative: 69 yo male with PMH of ESRD HD On reports compliance, CHF, HLD, HTN, DM, cardiac cath in 2022 minimal ds noted, s/p aortic valve replacement, he is on eliquis here with c/o HOPSON x 1 week but no chest pain no GIB symptoms at this time will need calcium, lokelma, insulin dextrose given K of 6.3 with slight peaking of t waves. He has no active symptoms now - no signs of volume overload I have ordered CXR, EKG, basic labs, h/h, troponin trop elevated which is high for him - repeat ordered no pericardial effusion seen on bedside ECHO Differential Diagnosis Differential Diagnoses: The differential diagnosis associated with the presentation includes lyte abnormality, worsening anemia, ACS, CHF, volume overload Admission/Observation Consideration of admission/observation: Escalation of care including admission/observation considered will admit for HD and troponin trending Consult Healthcare Provider Management of the patient was discussed with: Hospitalist (will admit) and Automatic Nailing Machine Feeder message sent to Dr. Tanner from nephrology 232pm repeat calls to [facility] coverage did talk to HD RN Rosaura who works with [place] notes he was HD on Wednesday and is not compliant. She notified HD RN that he would need inpatient HD message sent to Dr. Hooker from cardiology 232pm Dr. Tanner will admit the call in HD RN 330pm Lab Data MDM Lab Attestation statement: I reviewed the patient's lab results. [place] bumped meds ordered slight drop in hemoglobin no need for transfusion at this time 02/20/25 11:16 02/20/25 13:31 Labs: Lab Results 02/20/25 02/20/25 Range/Units 11:16 13:31 WBC 5.9 (4.8-10.8) X10*3/uL RBC 2.48 L (4.60-5.80) X10*6/uL Hgb 8.9 L (14.0-18.0) g/dl Hct 25.8 L (42.0-52.0) % MCV 104.0 H (80.0-98.0) fL MCH 35.9 H (27.0-33.0) pg MCHC 34.5 (31.0-36.0) g/dl RDW 13.2 (11.0-16.0) % Plt Count 132 L D (160-400) X10*3/uL MPV 9.8 (9.4-12.4) fL Immature Gran % (Auto) 0.3 (0.0-0.4) % Neut % (Auto) 77.9 H (45-73) % Lymph % (Auto) 9.3 L (20-40) % [place] % (Auto) 8.3 (2-11) % Eos % (Auto) 3.4 (0-4) % Baso % (Auto) 0.8 (0-2) % Lymph # (Auto) 0.6 L (1.2-4.9) X10*3/uL [place] # (Auto) 0.5 (0.1-1.2) X10*3/uL Eos # (Auto) 0.2 (0.0-0.4) X10*3/uL Baso # (Auto) 0.1 (0.0-0.2) X10*3/uL Abs Immat Gran (auto) 0.02 (0.00-0.03) X10*3/uL Absolute Neuts (auto) 4.6 (2.0-8.3) x10*3/uL Absolute Nucleated RBC 0.000 (0.0-0.012) X10*3/uL Nucleated RBC % (auto) 0.0 (0.0-0.2) /100WBC Sodium 140 (135-145) mmol/L Potassium 6.3 H* D 7.2 H* (3.3-5.1) mmol/L Chloride 100 (96-108) mmol/L Carbon Dioxide 23 (22-29) mmol/L Anion Gap 23 H (12-20) BUN 87 H (9-16) mg/dL Creatinine 10.73 H* (0.5-1.4) mg/dL Estim Creat Clear Calc 7.5 Estimated GFR 5 Random Glucose 148 H (60-115) mg/dL Calcium 8.1 L D (8.4-10.2) mg/dL Phosphorus 7.7 H (2.7-4.5) mg/dL Magnesium 2.1 (1.6-2.6) mg/dL Total Bilirubin 0.5 (0.0-1.0) mg/dL Direct Bilirubin 0.2 (0.0-0.5) mg/dL AST 53 H (5-37) U/L ALT 68 H (0-40) U/L Alkaline Phosphatase 77 (39-117) U/L Troponin I High Sens 260.3 H* D 309.8 H* (<3.5-35.0) ng/L Total Protein 7.4 (6.5-8.0) g/dL Albumin 4.4 (3.5-5.0) g/dL COVID-19 ([facility]US) Negative (Negative) COVID-19 Clin Com See Note Independent Interpretation I performed an independent interpretation of an: EKG and Plain X-Ray (normal ) Interpretation: Rate: 81 Rhythm: NSR with 1st degree AVB [place]: normal Normal P waves. Normal LOY. Normal QRS complex. ST T wave : t waves slightly peaked, no AURORA, inverted t waves aVL and slight depressions in aVL and V5-V6 qTC: 457 prior studies: more subtle lateral changes ?ischemia vs hyperK+ The study has been interpreted contemporaneously by me. . Radiology Impression Discussion of test interpretation with radiology: I have reviewed the radiologist's reading. External Record Review External record reviewed: Inpatient record and Outpatient record Critical Care Time Critical Care Time Critical Care Time: Yes Total Critical Care Time: 60 Attestation: Time is exclusive of separately billable procedures. Time includes: direct patient care, patient reassessment, coordination of patient care, interpretation of data (laboratory data, pulse oximetry, arterial blood gases and chest xrays), review of patient's medical records, medical consultation and documentation of patient care. Medications for hyperK and medical consults for hyperkalemia along with elevated troponin. IV calcium/HCO3 for hyperkalemia to prevent life threatening arrhythmia. Procedures excluded from critical care time: electrocardiography. Discharge Plan Discharge Clinical Impression: HOPSON (dyspnea on exertion), Acute hyperkalemia, Elevated troponin Patient Disposition: Admitted As Inpatient Print Language: Danish
--- NOTE | 2025-02-20 11:04 | ECG_ITS ---
Test Reason : SOB Blood Pressure : */* mmHG Vent. Rate : 81 BPM Atrial Rate : 81 BPM P-R Int : 226 ms QRS Dur : 96 ms QT Int : 394 ms P-R-T Axes : 49 -1 85 degrees QTcB Int : 457 ms Sinus rhythm with 1st degree A-V block Nonspecific ST and T wave abnormality Abnormal ECG When compared with ECG of 03-May-2024 11:12, ST now depressed in Lateral leads Referred By: Daiana Pierre Electronically Signed By: RUT CUELLO
[2025-02-20 11:23] LABS: MANUAL DIFF FLAG NO
[2025-02-20 11:28] LABS: Hematocrit 25.8 % (42.0-52.0); Hemoglobin 8.9 g/dl (14.0-18.0); Imm Gran Abs Auto 0.02 X10*3/uL (0.00-0.03); Imm Gran Pct Auto 0.3 % (0.0-0.4); Lymphocytes Absolute Auto 0.6 X10*3/uL (1.2-4.9); Mean Corpuscular HGB Conc 34.5 g/dl (31.0-36.0); Mean Corpuscular Hemoglobin 35.9 pg (27.0-33.0); Mean Corpuscular Volume 104.0 fL (80.0-98.0); NRBC Abs Auto 0.000 X10*3/uL (0.0-0.012); NRBC Pct Auto 0.0 /100WBC (0.0-0.2); Platelet Count 132 X10*3/uL (160-400); Red Blood Count 2.48 X10*6/uL (4.60-5.80); White Blood Count 5.9 X10*3/uL (4.8-10.8)
[2025-02-20 11:44] LABS: COVID-19 Test Negative (Negative); IDNOW Serial# 58CA691E
[2025-02-20 11:52] LABS: Alanine Aminotransferase 68 U/L (0-40); Albumin Level 4.4 g/dL (3.5-5.0); Alkaline Phosphatase 77 U/L (39-117); Anion Gap 23 (12-20); Aspartate Amino Transferase 53 U/L (5-37); Blood Urea Nitrogen 87 mg/dL (9-16); Calcium 8.1 mg/dL (8.4-10.2); Carbon Dioxide 23 mmol/L (22-29); Chloride 100 mmol/L (96-108); Creatinine Clr Calc Pharmacy 7.5; Estimated Glomerular Filt Rate 5; Magnesium 2.1 mg/dL (1.6-2.6); Potassium 6.3 mmol/L (3.3-5.1); Sodium 140 mmol/L (135-145); Total Protein 7.4 g/dL (6.5-8.0)
[2025-02-20 11:53] LABS: Troponin-I High Sensitivity 260.3 ng/L (<3.5-35.0)
[2025-02-20] MEDS: Calcium Gluconate/NaCl,Iso-Osm 2 GM/100 ML PLAST..BAG IV (13:27)
--- NOTE | 2025-02-20 13:37 | PC.NURSE ---
pt was very difficult stick, multiple nurses tried multiple times. ICU educated tried with ultrasound. ultimately US guided line placed by MD. [place] law in progess.
[2025-02-20 14:23] LABS: Potassium 7.2 mmol/L (3.3-5.1)
[2025-02-20 14:24] LABS: Troponin-I High Sensitivity 309.8 ng/L (<3.5-35.0)
[2025-02-20 14:35] VITALS: PULSE 67; RESP 18; O2SAT 94
[2025-02-20] MEDS: Albuterol Sulfate 2.5 MG, Albuterol Sulfate (0.083%) 2.5 MG 5 MG INHALE (14:35)
--- NOTE | 2025-02-20 15:33 | MHC.EDTECH ---
MANAGER HEMATOLOGY TO CALL ONCE PT IS ADMITTED--- RIAZ MCMAHON- [phone]
--- NOTE | 2025-02-20 15:51 | PM.IMHP ---
History of Present Illness Date of Service: 02/20/25 Chief Complaint: sob 69-year-old male with a PMH significant for?ESRD on HD TTS d/t nephrotic syndrome, HFpEF, severe s/p bioAVR 07/2022, hypothyroidism, HTN, HLD, and mood disorder who presents to the ED for evaluation of dyspnea, worse with exertion. He was supposed to go to dialysis today but instead asked the transportation to be brought to the ED. Lab work show potassium of 7.2--given albuterol inhaler, calcium glucoanate, Insulin with dextrose, sodium bicarb, and Lokelma. CXR no acute process. His information assurance manager team notified and arrangment is being made for urgent dialysis. He denies chest pain troponin I is 309. Cardiology is advising no specific intervention at this time. 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) Unable to assess alcohol history related to: Unknown Alcohol intake: former Comment: rings appropriately Patient Tobacco Use Status: Former Tobacco user Tobacco use type: Cigarette Years Smoked: 30 e-Cigarette/Vaping Use: Never Used Second Hand Smoke Exposure: No Advance Directives: Yes Advance Directives on File: Yes Advance Directives Date on File: 07/30/23 service: No Current occupational status: unemployed and disabled Cognitive needs: No Hearing needs: No Vision needs: No Meds Allergies Allergy/AdvReac Type Severity Reaction Status Date / Time Penicillins Allergy Unknown UNKWN Verified 02/20/25 11:02 Home Medications ?Medication ?Instructions ?Recorded ?Confirmed ?Last Taken ?Type levothyroxine 75 mcg tablet 75 mcg PO DAILY@0600 06/27/20 01/03/25 3 Days Ago History ~07/15/23 atorvastatin 40 mg tablet 40 mg PO BEDTIME 02/10/22 01/03/25 3 Days Ago History ~07/15/23 sertraline 25 mg tablet 1 tab PO DAILY 10/03/22 01/03/25 3 Days Ago History ~07/15/23 torsemide 20 mg tablet 40 mg PO BID@0900,1400 02/16/23 01/03/25 3 Days Ago History ~07/15/23 calcium carbonate 400 mg PO DAILY PRN Heartburn 08/19/23 01/03/25 Unknown History sevelamer carbonate 2.4 gram oral 2.4 g PO SUMOWEFR@0800,1200 08/19/23 01/03/25 Unknown History powder packet sevelamer carbonate 2.4 gram oral 2.4 g PO SUMOWEFR@1700 08/19/23 01/03/25 Unknown History powder packet cholecalciferol (vitamin D3) 25 PO 01/03/25 01/03/25 Unknown History mcg (1,000 unit) tablet omeprazole 40 mg capsule,delayed 40 mg PO DAILY 01/03/25 01/03/25 Unknown History release sodium zirconium cyclosilicate 5 g PO 01/03/25 01/03/25 Unknown History gram oral powder packet (Lokelma) Physical Exam Vital Signs and Narrative: Vital Signs: Last Vital Signs Temp 98.1 F 02/20/25 10:59 Pulse 67 02/20/25 14:35 Resp 18 02/20/25 14:35 BP 102/63 02/20/25 10:59 Pulse Ox 98 02/20/25 10:59 O2 Del Method Room Air 08/05/25 10:59 BMI result Body Mass Index 32.5 Const: Other: General: AO X 3, no acute distress Resp: CTA bilateral CVS: S1,S2,RRR GI: +BS, NT, no distention Skin: No rash Neuro: motor grossly intact Psych: appropriate affect Results Labs 02/20/25 11:16 02/20/25 13:31 Labs: Laboratory Results - last 24 hr 02/20/25 11:16 MCV 104.0 H MCH 35.9 H MCHC 34.5 RDW 13.2 Plt Count 132 L D MPV 9.8 Immature Gran % (Auto) 0.3 Neut % (Auto) 77.9 H Lymph % (Auto) 9.3 L [place] % (Auto) 8.3 Eos % (Auto) 3.4 Baso % (Auto) 0.8 Lymph # (Auto) 0.6 L [place] # (Auto) 0.5 Eos # (Auto) 0.2 Baso # (Auto) 0.1 Abs Immat Gran (auto) 0.02 Absolute Neuts (auto) 4.6 Absolute Nucleated RBC 0.000 Nucleated RBC % (auto) 0.0 Anion Gap 23 H Estim Creat Clear Calc 7.5 Estimated GFR 5 Random Glucose 148 H Calcium 8.1 L D Phosphorus 7.7 H Magnesium 2.1 Total Bilirubin 0.5 Direct Bilirubin 0.2 AST 53 H ALT 68 H Alkaline Phosphatase 77 Total Protein 7.4 Albumin 4.4 COVID-19 ([facility]US) Negative COVID-19 Clin Com See Note Imaging Radiologist's Impressions: Impressions Chest X-Ray 02/20/25 10:40 IMPRESSION: No acute cardiopulmonary abnormality. Electronically signed by: Roland Lucas MD 02/20/2025 11:42 AM EDT RP Assessment and Plan (1) Hypokalemia: Status: Acute Plan 69M PMH esrd, hfpef, severe as s/p bioavr, htn, hld, hypothryoid, mood disorder presented with HOPSON, missed dialysis today and found to have hyperkalemia, K of 7, elevated troponi I ESRD with hyperkalemia, Urgent HD today, nephrology aware Hyperkalemia given albuterol, calcium gluconate, insulin/dextrose, lokelm dialysis as ultimate correction Elevated troponin, rule out NSTEMI repeat trop I ecg cardilogy consult htn resume when med rec done chronic hfpef, possible overload and should impoved after dialysis hld statin hypothryoid synthroid dvt prophylaxis - hep sq full code Quality Stroke Does the patient have a stroke diagnosis?: No VTE Prior VTE?: No VTE Risk Level:: Medical - moderate - high VTE Device Contraindication: Treatment Not Indicated VTE Drug Contraindication: N/A - Med Ordered
[2025-02-20 16:26] LABS: Potassium 6.4 mmol/L (3.3-5.1)
[2025-02-20 16:30] VITALS: BP 108/62; PULSE 85; RESP 16; TEMP 36.7; O2SAT 97
[2025-02-20 17:27] VITALS: BMI 32.2
[2025-02-20 17:42] VITALS: BP 113/84; PULSE 84; RESP 17; TEMP 36.6; O2SAT 92
[2025-02-20] MEDS: 0.9 % Sodium Chloride Flush 3 ML SYRINGE IVFLUSH (17:52)
--- NOTE | 2025-02-20 18:36 | PHA.MEDREC ---
Pharmacy Consult ? Medication Reconciliation Pharmacy has completed the medication reconciliation. Med list obtained from [facility] [phone] via verbal orders
[2025-02-20 23:38] VITALS: BP 114/57; PULSE 83; RESP 18; TEMP 36.6; O2SAT 93
[2025-02-21 03:10] VITALS: BP 118/57; PULSE 71; RESP 18; TEMP 37.1; O2SAT 92
[2025-02-21 07:16] VITALS: BP 116/56; PULSE 75; RESP 16; TEMP 37.1; O2SAT 91
[2025-02-21] MEDS: 0.9 % Sodium Chloride Flush 3 ML SYRINGE IVFLUSH (07:31)
[2025-02-21 08:48] LABS: Anion Gap 20 (12-20); Blood Urea Nitrogen 54 mg/dL (9-16); Calcium 8.5 mg/dL (8.4-10.2); Carbon Dioxide 29 mmol/L (22-29); Chloride 98 mmol/L (96-108); Potassium 5.3 mmol/L (3.3-5.1); Sodium 142 mmol/L (135-145)
[2025-02-21 08:55] LABS: Creatinine Clr Calc Pharmacy 10.4; Estimated Glomerular Filt Rate 7
--- NOTE | 2025-02-21 10:55 | MHC.CM.PN ---
IMM 02/21/25, Pt. lives at [facility], they assist him with ADL's. He goes to HD at [facility]. He has been to STR in the past at [facility]. For DME, he uses a walker. His parents will drive him home at [place], DCP: return to [facility]. CM to follow for DC needs.
[2025-02-21 11:32] VITALS: BP 104/58; PULSE 70; RESP 18; TEMP 37.4; O2SAT 92
--- NOTE | 2025-02-21 12:15 | PM.CNNEP ---
History of Present Illness Reason for Consult Consult date: 02/21/25 Chief Complaint Chief complaint: HOPSON, hyperkalemia History of Present Illness Narrative: 69 year old patient with history of ESRD on HD at [facility] admitted with acute respiratory failure and hyperkalemia. Patient underwent emergent dialysis yesterday. 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 Surgical History Surgical History Hx of colonoscopy H/O aortic valve replacement Social History Social History Household Members: Other Housing: Assisted Living Facility Do you presently have visiting nurse or other home services: No Unable to assess alcohol history related to: Unknown Alcohol intake: former Comment: rings appropriately Patient Tobacco Use Status: Former Tobacco user Tobacco use type: Cigarette Years Smoked: 30 Smoked in Last 30 Days: No e-Cigarette/Vaping Use: Never Used Second Hand Smoke Exposure: No Use of substances other than those prescribed or required for medical reasons: No Currently Displaying Signs/Symptoms of Drug Intoxication Withdrawal: No Have you been hit, kicked, punched, or otherwise hurt by someone within the past year? If so, by whom?: No Advance Directives: Yes Advance Directives on File: Yes Advance Directives Date on File: 07/30/23 Do you have a plan to hurt others: No Plan Recently lost weight without trying: No Nutrition Risks: No Nutritional Risk service: No Current occupational status: unemployed and disabled Cognitive needs: No Hearing needs: No Vision needs: No Meds Allergies Allergy/AdvReac Type Severity Reaction Status Date / Time Penicillins Allergy Unknown UNKWN Verified 02/20/25 11:02 Active Medications: Current Medications Acetaminophen (Acetaminophen 325 Mg Tablet) 650 mg PO Q6H PRN PRN Reason: Pain, Mild 1-3,fever,headache Calcium Carbonate (Calcium Carbonate 750 Mg Tab.Chew) 750 mg PO Q4H PRN PRN Reason: Heartburn Heparin Sodium (Porcine) (Heparin Sodium,Porcine 5,000 Unit/Ml Vial) 5,000 unit SUBCUT Q12H [facility] Last Admin: 02/21/25 06:18 Dose: 5,000 unit Magnesium Hydroxide (Milk Of Magnesia 30 Ml Oral.Susp) 30 ml PO DAILY PRN PRN Reason: Constipation Melatonin (Melatonin 3 Mg Tablet) 6 mg PO BEDTIME PRN PRN Reason: Insomnia Ondansetron HCl (Ondansetron Hcl 4 Mg/2 Ml Vial) 4 mg IVPUSH Q8H PRN PRN Reason: Nausea and Vomiting Last Admin: 02/21/25 07:31 Dose: 4 mg Sodium Chloride (0.9 % Sodium Chloride Flush 3 Ml Syringe) 3 ml IVFLUSH [facility] Last Admin: 02/21/25 07:31 Dose: 3 ml Home Medications ?Medication ?Instructions ?Recorded ?Confirmed ?Last Taken ?Type levothyroxine 75 mcg tablet 75 mcg PO DAILY@0600 06/27/20 02/20/25 02/20/25 History atorvastatin 40 mg tablet 40 mg PO BEDTIME 02/10/22 02/20/25 02/20/25 History sertraline 25 mg tablet 1 tab PO DAILY 10/03/22 02/20/25 02/20/25 History torsemide 20 mg tablet 40 mg PO BID@0900,1200 02/16/23 02/20/25 3 Days Ago History ~07/15/23 cholecalciferol (vitamin D3) 25 50 mcg PO DAILY 01/03/25 02/20/25 Unknown History mcg (1,000 unit) tablet omeprazole 40 mg capsule,delayed 40 mg PO DAILY@0630 01/03/25 02/20/25 02/20/25 History release apixaban 5 mg tablet (Eliquis) 5 mg PO BID 02/20/25 02/20/25 02/20/25 History Physical Exam Vital Signs: Last Vital Signs Temp 99.3 F 02/21/25 11:32 Pulse 70 02/21/25 11:32 Resp 18 02/21/25 11:32 BP 104/58 L 02/21/25 11:32 Pulse Ox 92 02/21/25 11:32 O2 Del Method Room Air 02/21/25 11:32 BMI result Body Mass Index 32.2 Const General: no acute distress HEENT Head: Yes normocephalic and Yes atraumatic Neck Neck: Yes supple Resp Auscultation: diminished lung sounds Cardio Heart sounds: S1 normal heart sound present and S2 normal heart sound present GI Palpation (GI): Soft to palpation and nontender Extrem General: Yes edema Results Lab Results 02/20/25 11:16 02/21/25 07:46 Lab results: Chemistry 02/20/25 02/20/25 02/20/25 11:16 13:31 16:11 Sodium 140 Potassium 6.3 H* D 7.2 H* 6.4 H* Carbon Dioxide 23 BUN 87 H Creatinine 10.73 H* Calcium 8.1 L D Phosphorus 7.7 H 02/21/25 07:46 Sodium 142 Potassium 5.3 H Carbon Dioxide 29 BUN 54 H Creatinine 7.74 H* Calcium 8.5 Phosphorus Hematology 02/20/25 11:16 WBC 5.9 Hgb 8.9 L Plt Count 132 L D Assessment and Plan (1) ESRD (end stage renal disease): Status: Acute (2) Anemia: Status: Acute (3) Hyperkalemia: Status: Acute Plan known ESRD on HD t-t-s at [facility] admitted with acute respiratory failure and hyperkalemia s/p HD yesterday known HFpEF nephrogenic anemia REC HD per schedule renal diet P binders KARISSA per protocol Procedures Date of Service Date of Service: 02/21/25
--- NOTE | 2025-02-21 12:42 | P.DS_ITS ---
DS: Providers Provider Date of Service: 02/20/25 Date of admission: 02/20/25 15:57 Date of discharge: 02/21/25 Primary care physician: Alberto Melo MD Admitting clinician: [facility] Consults: Cardiology Nephrology ([facility]) - Dr. Tanner Attending physician on discharge: Zaina Juan DS: Diagnosis Discharge Diagnosis (1) ESRD (end stage renal disease): Status: Acute (2) Anemia: Status: Acute (3) Hyperkalemia: Status: Acute DS: Summary Hospital Course Hospital Course: 69-year-old male with a PMH significant for?ESRD on HD TTS d/t nephrotic syndrome, HFpEF, severe s/p bioAVR 07/2022, hypothyroidism, HTN, HLD, and mood disorder who presents to the ED for evaluation of dyspnea, worse with exertion. He was supposed to go to dialysis today but instead asked the transportation to be brought to the ED. Lab work show potassium of 7.2--given albuterol inhaler, calcium glucoanate, Insulin with dextrose, sodium bicarb, and Lokelma. CXR no acute process. His inclinometer tester team notified and arrangment is being made for urgent dialysis. He denies chest pain troponin I is 309. Cardiology is advising no specific intervention at this time. ECG show non- specific T wave abnormalities. The patient had no persistent complaints other than dizziness and dypnoea on exetion. He reports this being a chronic problem pending follow up and evaluation by outpatient Cardiology service. He has an upcoming appt this Wednesday for further evaluation. Status at Discharge Functional status at discharge: independent ambulation Overall status at discharge: patient is back to baseline Time Attestation Total time managing care of this patient today: 30 mintues. Discharge Coordination Time (in mins): 10 minutes Quality: Safe Use of Opioids Does Pt have an Active Cancer Diagnosis on the Problem List?: No Quality: Stroke Does the patient have a stroke diagnosis?: No Physical Exam Exam: Exam: General: A&O x3, oriented to time place person and siutaion, comfortable, no pain Cardiac: S1, S2 auscultated with no S3/4, harsh ejection systolic murmur auscultated at RUSB with radiation to mitral region. Well perfused. Respiratory: Normal breath sounds auscultated throughout all lung zones, without wheezing, rales. Normal rate. GI/ : No abdominal pain on palpation, no masses or distentions. MSK: Normal ambulation without pain at bony prominences or musculature Neurological: Normal neurological examination on overview, without obvious CN II-XII abnormalities. Vital Signs: Vital Signs: Last Vital Signs Temp 99.3 F 02/21/25 11:32 Pulse 70 02/21/25 11:32 Resp 18 02/21/25 11:32 BP 104/58 L 02/21/25 11:32 Pulse Ox 92 02/21/25 11:32 O2 Del Method Room Air 02/21/25 11:32 BMI result Body Mass Index 32.2 DS: Data Data Completed and Pending Completed studies during hospitalization [Text1]: Procedures Drainage of Right Pleural Cavity with Drainage Device, Percutaneous Approach (10/28/22) Extraction of Right Inguinal Lymphatic, Percutaneous Approach, Diagnostic (04/23/20) Fluoroscopy of Superior Vena Cava, Guidance (10/28/22) Insertion of Infusion Device into Right Atrium, Percutaneous Approach (03/12/23) Insertion of Infusion Device into Superior Vena Cava, Percutaneous Approach (07/18/23) Insertion of Tunneled Vascular Access Device into Chest Subcutaneous Tissue and Fascia, Percutaneous Approach (07/18/23) Introduction of Remdesivir Anti-infective into Peripheral Vein, Percutaneous Approach, [employer] 5 (07/18/23) Performance of Urinary Filtration, Intermittent, Less than 6 Hours Per Day (08/19/23) Removal of Infusion Device from Great Vessel, External Approach (10/28/22) Removal of Infusion Device from Great Vessel, Percutaneous Approach (03/12/23) Removal of Tunneled Vascular Access Device from Trunk Subcutaneous Tissue and Fascia, Open Approach (07/18/23) Transfusion of Nonautologous Red Blood Cells into Peripheral Vein, Percutaneous Approach (03/12/23) Ultrasonography of Superior Vena Cava, Guidance (07/18/23) Labs on day of discharge: Laboratory Results - last 24 hr 02/20/25 02/20/25 02/21/25 13:31 16:11 07:46 Sodium 142 Potassium 7.2 H* 6.4 H* 5.3 H Chloride 98 Carbon Dioxide 29 Anion Gap 20 BUN 54 H Creatinine 7.74 H* Estim Creat Clear Calc 10.4 Estimated GFR 7 Random Glucose 94 Calcium 8.5 Troponin I High Sens 309.8 H* Discharge Plan Discharge Anticipated Discharge Date/Time: 02/21/25 12:54 Patient Disposition: Home, Self-Care Discharge Diagnosis: Dizziness and dyspnoea on exertion secondary to missed HD session & underlying Referrals: Alberto Melo MD [Primary Care Provider, Internal Medicine] - 1 Week Discharge Medications: Continued losartan 50 mg tablet 50 mg PO DAILY 90 Days Qty: 90 3RF levothyroxine 75 mcg Tablet 75 mcg PO DAILY@0600 atorvastatin 40 mg tablet 40 mg PO BEDTIME sertraline 25 mg tablet 1 tab PO DAILY Eliquis 5 mg tablet 5 mg PO BID torsemide 20 mg tablet 40 mg PO BID@0900,1200 omeprazole 40 mg capsule,delayed release(/EC) 40 mg PO DAILY@0630 cholecalciferol (vitamin D3) 25 mcg (1,000 unit) tablet 50 mcg PO DAILY Discharge Orders: Discharge Order (Routine); Ordered 02/21/25 Ordered By: Zaina Juan Diet: Advance to usual diet Activity on Discharge: As tolerated Stand Alone Forms: Patient Portal Discharge page Print Language: Sami Care Plan Goals: Ensure follow up with Nephrology for HD as scheduled. Ensure follow up with [facility] for management and evaluation of likely aortic stenosis in outpatient setting on February, Health Concerns: Ensure follow up with [facility] for management and evaluation of likely aortic stenosis in outpatient setting on February, Plan of Treatment: PLAN - Please ensure attendance of Haemodialysis session as scheduled by [facility] Nephrology Service (Dr. Tanner) - Follow up with PCP within 1-2 weeks of discharge from hospital - Follow up with [facility] for management and evaluation of dizziness and shortness of breath - Continue taking your medications as prescribed Assessment: Overall, patient is a 69-year-old male with a PMH significant for?ESRD on HD TTS d/t nephrotic syndrome, HFpEF, severe s/p bioAVR 07/2022, hypothyroidism, HTN, HLD, and mood disorder who presents to the ED for evaluation of dyspnea, worse with exertion, after missing his Haemodialysis session as an outpatient. The patient's shortness of breath and dizziness are secondary to a chronic cardiac issue (likely aortic stenosis), where he will be followed up by Cardiology on the 23 February for further evaluation and management. The patient has been made aware of his appointment, and has expressed understaning that he will attend the appointment in [place] of further workup in hospital.
--- NOTE | 2025-02-21 13:36 | MHC.CM.PN ---
Pt has been medically cleared to [place], he will return to [facility] via private transport, plan is self care.
== END 2025-02-21 14:38 | disposition home or self-care (01) | DRG 640 ==
LOC: HO.ED 15:15 → HO.EDOVER 16:11 → HO.IMC 16:45
PROVIDERS: Physician Assistant; Admitting Provider Internal Medicine; Emergency Provider Emergency Medicine; PCP Family Medicine; Visit Provider Hospitalist
DX: E87.6 Hypokalemia (principal); N18.6 End stage renal disease; I13.2 Hypertensive heart and chronic kidney disease with heart failure and with stage 5 chronic kidney disease, or end stage renal disease; I50.32 Chronic diastolic (congestive) heart failure; D63.1 Anemia in chronic kidney disease; Z99.2 Dependence on renal dialysis; E78.5 Hyperlipidemia, unspecified; E03.9 Hypothyroidism, unspecified; E11.22 Type 2 diabetes mellitus with diabetic chronic kidney disease; F39 Unspecified mood [affective] disorder; Z95.2 Presence of prosthetic heart valve; Z91.158 Patient's noncompliance with renal dialysis for other reason; Z79.01 Long term (current) use of anticoagulants; Z79.890 Hormone replacement therapy; Z79.899 Other long term (current) drug therapy
CPT/HCPCS: 36415; 71046; 80048; 80076; 83735; 84100; 84132; 84484; 85025; 87635; 90999; 93005; 94640; 99285; J0613; J1644; J2405

== ENCOUNTER → 2025-02-20 11:04 | Outpatient (BNV) | payer OTHER, SELFPAY | PROVIDERS: Emergency Provider Emergency Medicine; PCP Family Medicine; Visit Provider Radiology Diagnostic Radiology | DX: R06.02 Shortness of breath (principal) | CPT/HCPCS: 71046 ==

== ENCOUNTER → 2025-02-20 11:04 | Outpatient (BNV) | payer OTHER, SELFPAY | PROVIDERS: Admitting Provider Internal Medicine; Emergency Provider Emergency Medicine; PCP Family Medicine; Visit Provider Internal Medicine | DX: I44.0 Atrioventricular block, first degree (principal) | CPT/HCPCS: 93010 ==

== ENCOUNTER → 2025-02-20 15:57 | Outpatient (BNV) | payer OTHER, SELFPAY | PROVIDERS: Admitting Provider Internal Medicine; Emergency Provider Emergency Medicine; PCP Family Medicine; Visit Provider Internal Medicine | DX: N18.6 End stage renal disease (principal); Z99.2 Dependence on renal dialysis; D64.9 Anemia, unspecified; E87.5 Hyperkalemia; E87.6 Hypokalemia | CPT/HCPCS: 99223; 99239 ==

== ENCOUNTER 2025-03-12 16:05 | Inpatient (IN) | payer OTHER, SELFPAY ==
[2025-03-12] VITALS (11 sets, daily range): BP systolic 98–137; BP diastolic 35–57; PULSE 69–85; RESP 12–18; TEMP 36.8–37; O2SAT 95–100; BMI 29.5
--- NOTE | ~2025-03-12 | US_ITS ---
CLINICAL HISTORY: low BP RUE, normal in leg, rule out stenosis Right upper extremity duplex arterial Doppler Comparison: None Technique: Grayscale/Color and duplex Doppler sonographic evaluation of the arterial system within the right upper extremity. Peak systolic velocities recorded in centimeters per second. Findings: Right upper extremity Subclavian: Triphasic proximally biphasic distally. 98.8 cm/s Axillary: Triphasic. 70.2cm/s Brachial artery: Triphasic. 67.3 cm/s Ulnar artery: Triphasic. 35.7 cm/s Radial artery: Triphasic. 64.1 cm/s Impression: 1. No significant stenosis or occlusive disease demonstrated This document has been electronically signed by: Connor Amaya MD on 03/18/2025 11:52:33
--- NOTE | ~2025-03-12 | US_ITS ---
EXAMINATION: US CHEST HISTORY: R pleural effusion likely metastatic esophageal CA COMPARISON: There are no prior studies available for comparison. FINDINGS: Sonographic examination of the right chest was performed. There is a small loculated pleural effusion. US/US chest IMPRESSION: Small loculated right pleural effusion. Electronically signed by: Roland Lucas MD 03/16/2025 02:32 PM EDT
--- NOTE | ~2025-03-12 | XR_ITS ---
CLINICAL HISTORY: sob CHEST X-RAY FRONTAL VIEW COMPARISON: 02/20/2025. FINDINGS: A single frontal view of the chest was performed. Median sternotomy wires are noted. Lordotic technique is noted. Patient is mildly rotated to the left. Cardiac silhouette is accentuated by the portable technique. There is calcification within the thoracic aortic arch. Infiltrates are noted within the bilateral lower lungs. No definitive evidence of a pleural effusion. No pneumothorax. IMPRESSION: 1. Infiltrates are noted within the lower lungs. This document has been electronically signed by: Fermin Mccormick M.D. on 03/15/2025 03:10:19
--- NOTE | ~2025-03-12 | CT_ITS ---
EXAMINATION: CT ABDOMEN AND PELVIS WITH CONTRAST CLINICAL INFORMATION: Esophageal mass. COMPARISON: February 16, 2023. TECHNIQUE: Multidetector volumetric images were obtained from the superior aspect of the liver through the pubic symphysis following administration 85 mL of Omnipaque 350 intravenous contrast. Sagittal and coronal reformatted images were obtained on the technologist's workstation. Oral contrast: No This CT examination was performed using dose optimization techniques as appropriate, variously including the following: *Automated exposure control *Adjustment of mA and/or kV according to patient size (this includes techniques or standardized protocols for targeted exams where dose is matched to indication/reason for exam; i.e. extremities or head) *Use of iterative reconstruction technique DLP: 648.5 mGy centimeter. FINDINGS: The acquisition is mostly during the arterial phase although contrast is present in the main portal veins. LUNG BASES: Please refer to the CT chest report same day. LIVER, GALLBLADDER, AND BILIARY TREE: Liver measures 20 cm. There are multifocal hypodense lesions throughout the parenchyma, the largest measures 2.7 cm in the inferior right hepatic lobe. The main portal vein is patent. Gallbladder is nondistended. No pericholecystic fluid collection or gallbladder wall thickening. No intrahepatic or extrahepatic biliary ductal dilatation. PANCREAS: No peripancreatic fluid collection. No main pancreatic ductal dilatation. Reduced volume. SPLEEN: 12 cm. No gross focal mass. ADRENAL GLANDS: No nodular lesions. KIDNEYS AND URETERS: Small kidneys with renal cortical thinning. No gross hydronephrosis or nephrolithiasis. Small cyst in the right kidney. BLADDER: Fluid-filled. GASTROINTESTINAL TRACT: Soft tissue fullness/wall thickening in the distal intrathoracic esophagus. Small hiatal hernia. Numerous diverticula throughout the large intestine. Abundant stool. No intestinal obstruction pattern. No pneumatosis intestinalis. Appendix is normal. No ascites. No peripheral enhancing fluid collections in the peritoneal cavity. No pneumoperitoneum. ABDOMINAL WALL: Diastases abdominal rectus muscles in the periumbilical region with protrusion of the nondilated small bowel loops. LYMPH NODES: No specific prominent less than 10 mm mesenteric and retroperitoneal and inguinal lymph nodes. VASCULAR: Throughout the abdominal aorta wall and mesenteric arteries, main renal arteries and iliac arteries. No aneurysm or dissection abdominal aorta. Calcified plaque in the splenic artery. PELVIC VISCERA: Not enlarged. OSSEOUS STRUCTURES: Castellvi type II sacralization. No rib T12. Levoconvex rotoscoliosis apex at L2. Multilevel thoracolumbar spondylosis. Osteopenia versus osteoporosis. Prominent right transverse process of sacralized L5 vertebra articulating with the sacrum. [id number] degenerative changes in the coxofemoral joints and sacroiliac joints. Degenerative changes in the symphysis pubis. No acute fracture or listhesis. No lytic or blastic lesions.. CT/CT abdomen pelvis w IV con IMPRESSION: Hepatomegaly and multiple hypodense hepatic lesions, metastasis cannot be excluded. Medical renal disease without hydronephrosis. Diverticular disease, colonic. Soft tissue fullness/wall thickening intrathoracic esophagus. Fleischner guidelines were followed. Electronically signed by: Stevie Kim MD 03/15/2025 08:51 AM EDT
--- NOTE | ~2025-03-12 | CT_ITS ---
EXAMINATION: CT CHEST WITH CONTRAST CLINICAL INFORMATION: Esophageal mass. COMPARISON: February 16, 2023 TECHNIQUE: Multidetector volumetric CT imaging of the chest was obtained after the administration of 85 mL of Omnipaque 350 intravenous contrast without immediate adverse reactions. Axial MIP volume rendering provided. Sagittal and coronal reformatted images were obtained. This CT examination was performed using dose optimization techniques as appropriate, variously including the following: *Automated exposure control *Adjustment of mA and/or kV according to patient size (this includes techniques or standardized protocols for targeted exams where dose is matched to indication/reason for exam; i.e. extremities or head) *Use of iterative reconstruction technique DLP: 212.4 mGy centimeter. FINDINGS: Patient's breathing motion artifact. 1. ANESTHESIOLOGY CRNA: sternal wires. S-shaped curvature of the thoracolumbar spine. Patient's large body habitus. Bilateral pleural effusions. LUNGS: Patchy and confluent pulmonary groundglass extending from the perihilar region to the periphery. Peribronchial septal thickening. Confluent attenuation with air bronchograms in the lower lung lobe/lung bases. No hyperinflation. There are few scattered randomly distributed less than 5 mm noncalcified pulmonary nodules, best seen on the right upper lung lobe. No gross bronchiectasis. No honeycombing.. MEDIASTINUM: Mediastinal lymphadenopathy. Edema pattern of the mediastinal fat. Calcified plaques in the thoracic aorta wall and its main branches, coronary arteries, aortic and mitral valves. Aorta valve prosthesis. No aneurysm or dissection, thoracic aorta. Main pulmonary artery diameter is 3.7 cm. Ascending thoracic aorta diameter is 3.6 cm. The main pulmonary artery or its main branches are patent without gross intraluminal filling defects. No pericardial effusion. No pneumomediastinum. No hemomediastinum. No hemopericardium. Soft tissue fullness within the intrathoracic distal esophageal wall. PLEURA: Right-sided moderate to large volume pleural effusion with thick wall and punctate calcifications. Linear thick densities within the right pleural effusion. Small to moderate volume left-sided pleural effusion with punctate calcifications. No pneumothorax. No hemothorax. AXILLA: No axillary lymphadenopathy. Bilateral gynecomastia. UPPER ABDOMEN: Calcified plaques in the abdominal aorta at the origin of the mesenteric arteries. Scattered diverticula in the transverse colon and splenic colonic flexure. No ascites. No nodular lesions in the included adrenal glands. OSSEOUS STRUCTURES: [No wires. Multilevel cervical thoracic spondylosis. Incomplete ankylosis at T8-9. Multilevel 04/19/2020 percent volume loss of the vertebral bodies. No acute fracture or listhesis. No lytic or blastic lesions. No gross acute rib fracture. CT/CT chest w IV con IMPRESSION: Bilateral pleural effusions, moderate to large on the right and [id number] on the left with questionable superimposed tumor implants. 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 Coronary artery disease and atherosclerosis disease. Fleischner guidelines were followed. Electronically signed by: Stevie Kim MD 03/15/2025 08:40 AM EDT
--- NOTE | 2025-03-12 16:56 | ECG_ITS ---
Test Reason : BLOODY STOOL Blood Pressure : */* mmHG Vent. Rate : 73 BPM Atrial Rate : 73 BPM P-R Int : 200 ms QRS Dur : 110 ms QT Int : 420 ms P-R-T Axes : 44 28 65 degrees QTcB Int : 462 ms Normal sinus rhythm Nonspecific ST and T wave abnormality Abnormal ECG When compared with ECG of 20-Feb-2025 11:03, No significant change was found Referred By: Zohra De Luna Electronically Signed By: RTU CUELLO
[2025-03-12 17:10] LABS: MANUAL DIFF FLAG NO
--- NOTE | 2025-03-12 17:12 | ED.GENADULT ---
HPI - General Adult General Chief complaint: General Medical Stated complaint: BLOOD IN STOOL Time Seen by Provider: 03/12/25 16:44 Source: patient and EMS Mode of arrival: EMS Limitations: no limitations History of Present Illness ED Provider: Dr. Zohra De Luna HPI narrative: Patient comes to the emergency room complaining of bloody stool. Patient states that yesterday he noted that there was blood in his underwear, also when he moves his bowels he has seen fresh blood per rectum. Patient states that patient takes Eliquis. This is the 1st time that he has bloody stools. To his knowledge, he has no history of hemorrhoids. Patient denies any abdominal pain, no diarrhea. Patient known to be a dialysis patient, states he is compliant with his dialysis, due tomorrow for his scheduled next dialysis. Related Data Home Medications ?Medication ?Instructions ?Recorded ?Confirmed levothyroxine 75 mcg tablet 75 mcg PO DAILY@0600 06/27/20 02/20/25 atorvastatin 40 mg tablet 40 mg PO BEDTIME 02/10/22 02/20/25 sertraline 25 mg tablet 1 tab PO DAILY 10/03/22 02/20/25 torsemide 20 mg tablet 40 mg PO BID@0900,1200 02/16/23 02/20/25 cholecalciferol (vitamin D3) 25 50 mcg PO DAILY 01/03/25 02/20/25 mcg (1,000 unit) tablet omeprazole 40 mg capsule,delayed 40 mg PO DAILY@0630 01/03/25 02/20/25 release apixaban 5 mg tablet (Eliquis) 5 mg PO BID 02/20/25 02/20/25 sodium zirconium cyclosilicate 5 g PO 03/12/25 gram oral powder packet (Lokelma) Previous Rx's ?Medication ?Instructions ?Recorded losartan 50 mg tablet 50 mg PO DAILY 90 days #90 tabs 10/30/24 Allergies Allergy/AdvReac Type Severity Reaction Status Date / Time Penicillins Allergy Unknown UNKWN Verified 03/12/25 16:51 Review of Systems Review of Systems: Constitutional : No Weight loss, No Fever, No Chills, No Night Sweats, No Fatigue, No Malaise ENT/Mouth : No Hearing loss, No Ear Pain, No Nasal Congestion, No Sinus Pain, No Hoarseness, No sore throat, No Rhinorrhea, No Swallowing Difficulty Eyes: No Eye Pain, No Swelling, No Redness, No Foreign Body, No Discharge, No Vision Changes Cardiovascular : No Chest Pain, No SOB, No Dyspnea on Exertion, No Orthopnea, No Edema, No Palpitations Respiratory : No Cough, No Sputum, No Wheezing, No Smoke Exposure, No Dyspnea Gastrointestinal : No Nausea, No Vomiting, No Diarrhea, No Constipation, No abdominal Pain, complaining of fresh blood per rectum with and without bowel movements Genitourinary : no irregular bleeding, No Dysuria, No Urinary Frequency, No Hematuria, No Urinary Incontinence, No Urgency, No Flank Pain, No Urinary Flow Changes, No Hesitancy Musculoskeletal : No joint pain, No Myalgias, No Joint Swelling Skin : No Skin Lesions, No rash Neuro : No Weakness, No Numbness, No Paresthesias, No Loss of Consciousness, No Dizziness, No Headache Psych : No Anxiety/Panic, No Depression, No SI/HI/AH/VH, No Social Issues, Heme/Lymph: No Bruising, No Bleeding,No Lymphadenopathy Endocrine : No Polyuria, No Polydipsia, No Temperature Intolerance [facility] Past Medical History Medical History Hyperkalemia Hypothyroidism MSSA bacteremia Adult failure to thrive Anemia Staphylococcal pneumonia Pleural effusion Anasarca associated with disorder of kidney Congestive heart failure Membranous nephrosis Aortic stenosis 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 Social History Social History Household Members: Other Housing: Assisted Living Facility Do you presently have visiting nurse or other home services: No Unable to assess alcohol history related to: Unknown Alcohol intake: former Comment: rings appropriately Patient Tobacco Use Status: Former Tobacco user Tobacco use type: Cigarette Years Smoked: 30 Smoked in Last 30 Days: No e-Cigarette/Vaping Use: Never Used Second Hand Smoke Exposure: No Use of substances other than those prescribed or required for medical reasons: No Advance Directives: No Advance Directives Information Provided: No Advance Directives Date on File: 07/30/23 service: No Current occupational status: unemployed and disabled Cognitive needs: No Hearing needs: No Vision needs: No Physical Exam ED Exam Exam: Appearance: Alert. Oriented X3. No acute distress. Eyes: Pupils equal, round and reactive to light. ENT: Pharynx normal. Neck: Normal inspection. Neck supple. No lymph nodes noted. No crepitus CVS: Normal heart rate and rhythm. Pulses normal. Normal S1 and S2 Respiratory: No respiratory distress. Breath sounds normal. No Wheezing. No rales Abdomen: Soft and nontender. No rigidity. No distention. On digital rectal exam, tarry stool with specks of blood Skin: Skin warm and dry. Normal skin color. Normal skin turgor. Extremities: No lower extremity edema. No Lacerations. No Rash Neuro: Oriented X 3. No motor deficit. No sensory deficit. Moving all extremities. No slurred speech. CN 2 through 12 grossly intact Psych: calm, cooperative, normal affect Vital Signs: Vital Signs - 24 hr 03/12/25 16:27 03/12/25 18:11 03/12/25 19:13 Temperature 98.6 F 98.3 F Pulse Rate 69 80 80 Respiratory Rate 18 15 12 Blood Pressure 105/50 L 104/47 L 106/50 L Pulse Oximetry 97 98 100 Oxygen Delivery Method Room Air Room Air Room Air 03/12/25 19:20 03/12/25 19:35 Temperature 98.2 F 98.2 F Pulse Rate 80 77 Respiratory Rate 14 12 Blood Pressure 106/50 L 129/48 L Pulse Oximetry Oxygen Delivery Method BMI result Body Mass Index 29.5 Medical Decision Making Medical Decision Making MDM Narrative: My interpretation of labs: Patient's hematology shows a hemoglobin of 7.6 which is lower than patient's baseline of close to 11. Patient's chemistry shows a potassium of 6.3, patient does not have any chest pain or shortness of breath, due for dialysis tomorrow, no EKG changes. Patient's creatinine 10.68, 2 for dialysis tomorrow. Occult stool test is positive, patient takes Eliquis No significant GI bleed here in the emergency room, vitals stable Given patient's drop in hemoglobin along with new symptoms of shortness of breath with the exertion and generalized fatigue, the patient would benefit from a blood transfusion. Patient agreeable. I discussed with the patient the risks versus benefits of the with his fusion and agrees to proceed with the transfusion. Consent was signed, it is in the patient's chart I discussed the above-mentioned with Dr. Garcia from the Medicine team, patient being admitted. Differential Diagnosis Differential Diagnoses: The differential diagnosis associated with the presentation includes (GI bleed, internal hemorrhoids, diverticular disease) Admission/Observation Consideration of admission/observation: Escalation of care including admission/observation considered Consult Healthcare Provider Management of the patient was discussed with: Hospitalist Lab Data MDM Lab Attestation statement: I reviewed the patient's lab results. 03/12/25 17:04 03/12/25 17:04 Labs: Lab Results 03/12/25 03/12/25 03/12/25 Range/Units 17:04 17:05 18:15 WBC 5.7 (4.8-10.8) X10*3/uL RBC 2.11 L (4.60-5.80) X10*6/uL Hgb 7.6 L (14.0-18.0) g/dl Hct 21.9 L (42.0-52.0) % MCV 103.8 H (80.0-98.0) fL MCH 36.0 H (27.0-33.0) pg MCHC 34.7 (31.0-36.0) g/dl RDW 14.1 (11.0-16.0) % Plt Count 169 D (160-400) X10*3/uL MPV 10.7 (9.4-12.4) fL Immature Gran % (Auto) 0.3 (0.0-0.4) % Neut % (Auto) 65.8 (45-73) % Lymph % (Auto) 15.9 L (20-40) % [place] % (Auto) 13.4 H (2-11) % Eos % (Auto) 3.7 (0-4) % Baso % (Auto) 0.9 (0-2) % Lymph # (Auto) 0.9 L (1.2-4.9) X10*3/uL [place] # (Auto) 0.8 (0.1-1.2) X10*3/uL Eos # (Auto) 0.2 (0.0-0.4) X10*3/uL Baso # (Auto) 0.1 (0.0-0.2) X10*3/uL Abs Immat Gran (auto) 0.02 (0.00-0.03) X10*3/uL Absolute Neuts (auto) 3.8 (2.0-8.3) x10*3/uL Absolute Nucleated RBC 0.000 (0.0-0.012) X10*3/uL Nucleated RBC % (auto) 0.0 (0.0-0.2) /100WBC Sodium 139 (135-145) mmol/L Potassium 6.3 H* (3.3-5.1) mmol/L Chloride 99 (96-108) mmol/L Carbon Dioxide 21 L (22-29) mmol/L Anion Gap 25 H (12-20) BUN 98 H (9-16) mg/dL Creatinine 10.68 H* (0.5-1.4) mg/dL Estim Creat Clear Calc 7.9 Estimated GFR 5 Random Glucose 74 (60-115) mg/dL Calcium 7.8 L D (8.4-10.2) mg/dL Total Bilirubin 0.5 (0.0-1.0) mg/dL Direct Bilirubin 0.2 (0.0-0.5) mg/dL AST 39 H (5-37) U/L ALT 59 H (0-40) U/L Alkaline Phosphatase 74 (39-117) U/L Total Protein 6.9 (6.5-8.0) g/dL Albumin 4.1 (3.5-5.0) g/dL Stool Occult Blood POSITIVE (NEGATIVE) Blood Type A Positive Antibody Screen NEGATIVE Crossmatch See Detail Critical Care Time Critical Care Time Critical Care Time: Yes Total Critical Care Time: 60 Attestation: I have personally provided critical care time. Time includes review of lab data, radiology results, discussion with consultants, and monitoring for potential decompensation. Intervention performed as documented. Discharge Plan Discharge Clinical Impression: GI bleed, Anemia Patient Disposition: Admitted As Inpatient Print Language: Wallisian
[2025-03-12 17:14] LABS: Hematocrit 21.9 % (42.0-52.0); Hemoglobin 7.6 g/dl (14.0-18.0); Imm Gran Abs Auto 0.02 X10*3/uL (0.00-0.03); Imm Gran Pct Auto 0.3 % (0.0-0.4); Lymphocytes Absolute Auto 0.9 X10*3/uL (1.2-4.9); Mean Corpuscular HGB Conc 34.7 g/dl (31.0-36.0); Mean Corpuscular Hemoglobin 36.0 pg (27.0-33.0); Mean Corpuscular Volume 103.8 fL (80.0-98.0); NRBC Abs Auto 0.000 X10*3/uL (0.0-0.012); NRBC Pct Auto 0.0 /100WBC (0.0-0.2); Platelet Count 169 X10*3/uL (160-400); Red Blood Count 2.11 X10*6/uL (4.60-5.80); White Blood Count 5.7 X10*3/uL (4.8-10.8)
[2025-03-12 17:14] LABS: OBS Int Ctl Valid YES; OBS1 POSITIVE (NEGATIVE)
[2025-03-12 17:35] LABS: Alanine Aminotransferase 59 U/L (0-40); Albumin Level 4.1 g/dL (3.5-5.0); Alkaline Phosphatase 74 U/L (39-117); Anion Gap 25 (12-20); Aspartate Amino Transferase 39 U/L (5-37); Blood Urea Nitrogen 98 mg/dL (9-16); Calcium 7.8 mg/dL (8.4-10.2); Carbon Dioxide 21 mmol/L (22-29); Chloride 99 mmol/L (96-108); Creatinine Clr Calc Pharmacy 7.9; Estimated Glomerular Filt Rate 5; Potassium 6.3 mmol/L (3.3-5.1); Sodium 139 mmol/L (135-145); Total Protein 6.9 g/dL (6.5-8.0)
--- NOTE | 2025-03-12 18:37 | PC.NURSE ---
20g IV access established to right AC at 18:15. Unsuccessful attempts at getting 2nd IV access at this time. Type & Screen draw and sent for analysis. Results pending. Plan to administer 2 units of RBCs once ready from Blood Bank. Care ongoing by this RN. Dr. De Luna aware.
--- NOTE | 2025-03-12 19:14 | PC.NURSE ---
this RN assumed care of this pt @1900, pt A+Ox3, VSS, in no apparent ditress
--- NOTE | 2025-03-12 19:20 | PC.NURSE ---
1st unit of blood began transfusing at this time
--- NOTE | 2025-03-12 19:35 | PC.NURSE ---
Addendum entered by Eliecer Churchill 03/12/25 20:12: 1st unit of blood has been transfusing for 15 min at this time, VSS, pt denies CP/SOB/ back pain Original Note: 1st unit of blood transfused over 15 min, VSS, pt denies CP/SOB/Back pain
--- NOTE | 2025-03-12 20:24 | PM.IMHP ---
History of Present Illness Date of Service: 03/12/25 Chief Complaint: BRBPR 69-year-old male with a past of HTN HLD, ESRD on, CHF, nephrotic syndrome diabetes, history of small-bowel obstruction, anemia, hypothyroidism presented to the hospital today with a chief complaint of bright red blood per rectum. Patient reported that the past couple days has been having small amounts of BRBPR. Denies any lightheadedness or dizziness. Denies any nausea or vomiting. Denies any GI or symptoms. Review of all other systems is negative except mentioned above ER course: Per ER team patient's exam was benign. On labs noted to have hemoglobin of 6.3. Drop from his baseline hemoglobin. Ordered for 1 unit of PRBC. Patient appeared to be breathing comfortably. Benign abdominal examination. 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 Surgical History (Updated 03/01/25 @ 00:00 by Francisca Pope) Hx of colonoscopy H/O aortic valve replacement Social History Household Members: Other Housing: Assisted Living Facility Do you presently have visiting nurse or other home services: Yes Unable to assess alcohol history related to: Unknown Alcohol intake: former Comment: rings appropriately Patient Tobacco Use Status: Former Tobacco user Tobacco use type: Cigarette Years Smoked: 30 Smoked in Last 30 Days: No e-Cigarette/Vaping Use: Never Used Second Hand Smoke Exposure: No Use of substances other than those prescribed or required for medical reasons: No Currently Displaying Signs/Symptoms of Drug Intoxication Withdrawal: No Have you been hit, kicked, punched, or otherwise hurt by someone within the past year? If so, by whom?: No Do you feel safe in your current relationship?: No Current Relationship Is there a partner from a previous relationship who is making you feel unsafe now?: No Are you made to feel afraid or neglected: No Advance Directives: No Advance Directives Information Provided: No Advance Directives Date on File: 07/30/23 Do you have a plan to hurt others: No Plan Recently lost weight without trying: No Eating poorly because of decreased appetite: No Nutrition Risks: No Nutritional Risk Poor oral hygiene: No service: No Current occupational status: unemployed and disabled Cognitive needs: No Hearing needs: No Vision needs: No Meds Allergies Allergy/AdvReac Type Severity Reaction Status Date / Time Penicillins Allergy Unknown UNKWN Verified 03/12/25 16:51 Active Medications: Current Medications Acetaminophen (Acetaminophen 325 Mg Tablet) 650 mg PO Q6H PRN PRN Reason: Pain, Mild 1-3,fever,headache Calcium Carbonate (Calcium Carbonate 750 Mg Tab.Chew) 750 mg PO Q4H PRN PRN Reason: Heartburn Magnesium Hydroxide (Milk Of Magnesia 30 Ml Oral.Susp) 30 ml PO DAILY PRN PRN Reason: Constipation Melatonin (Melatonin 3 Mg Tablet) 6 mg PO BEDTIME PRN PRN Reason: Insomnia Sodium Chloride (0.9 % Sodium Chloride Flush 3 Ml Syringe) [facility]ations ?Medication ?Instructions ?Recorded ?Confirmed ?Last Taken ?Type levothyroxine 75 mcg tablet 75 mcg PO DAILY@0600 06/27/20 03/12/25 02/20/25 History atorvastatin 40 mg tablet 40 mg PO BEDTIME 02/10/22 03/12/25 02/20/25 History sertraline 25 mg tablet 1 tab PO DAILY 10/03/22 03/12/25 02/20/25 History torsemide 20 mg tablet 40 mg PO BID@0900,1200 02/16/23 03/12/25 3 Days Ago History ~07/15/23 cholecalciferol (vitamin D3) 25 50 mcg PO DAILY 01/03/25 03/12/25 Unknown History mcg (1,000 unit) tablet omeprazole 40 mg capsule,delayed 40 mg PO DAILY@0630 01/03/25 03/12/25 02/20/25 History release apixaban 5 mg tablet (Eliquis) 5 mg PO BID 02/20/25 03/12/25 02/20/25 History sodium zirconium cyclosilicate 5 5 g PO MOWEFR 03/12/25 03/13/25 Unknown History gram oral powder packet (Lokelma) Physical Exam Vital Signs and Narrative: Vital Signs: Last Vital Signs Temp 98.2 F 03/12/25 19:35 Pulse 77 03/12/25 19:35 Resp 12 03/12/25 19:35 BP 129/48 L 03/12/25 19:35 Pulse Ox 100 03/12/25 19:13 O2 Del Method Room Air 03/12/25 19:13 BMI result Body Mass Index 29.5 Gen: Appears be in no acute distress HEENT: NCAT, Moist mucosa. Pulmonary: Vesicular breath sounds, fair air entry CVS: Normal S1-S2 Abdomen: BS+, Soft, Nontender Extremities: Warm well perfused Neuro: Alert and awake. Results Labs 03/13/25 06:39 03/13/25 06:39 Labs: Laboratory Results - last 24 hr 03/12/25 03/12/25 03/12/25 17:04 17:05 18:15 MCV 103.8 H MCH 36.0 H MCHC 34.7 RDW 14.1 Plt Count 169 D MPV 10.7 Immature Gran % (Auto) 0.3 Neut % (Auto) 65.8 Lymph % (Auto) 15.9 L [place] % (Auto) 13.4 H Eos % (Auto) 3.7 Baso % (Auto) 0.9 Lymph # (Auto) 0.9 L [place] # (Auto) 0.8 Eos # (Auto) 0.2 Baso # (Auto) 0.1 Abs Immat Gran (auto) 0.02 Absolute Neuts (auto) 3.8 Absolute Nucleated RBC 0.000 Nucleated RBC % (auto) 0.0 Anion Gap 25 H Estim Creat Clear Calc 7.9 Estimated GFR 5 Random Glucose 74 Calcium 7.8 L D Total Bilirubin 0.5 Direct Bilirubin 0.2 AST 39 H ALT 59 H Alkaline Phosphatase 74 Total Protein 6.9 Albumin 4.1 Stool Occult Blood POSITIVE Blood Type A Positive Antibody Screen NEGATIVE Crossmatch See Detail Assessment and Plan (1) BRBPR (bright red blood per rectum): Status: Acute Plan 69-year-old male with a past of HTN HLD, ESRD on, CHF, nephrotic syndrome diabetes, history of small-bowel obstruction, anemia, hypothyroidism, AFib on Eliquis presented to the hospital today with a chief complaint of bright red blood per rectum. BRBPR: Patient's hemoglobin on presentation is 6.3. Being ordered for 1 unit of PRBC NPO GI consult IV PPI ESRD: Patient on hemodialysis. Nephrology consult. AFib: Rate controlled. Hold home Eliquis until cleared by Gastroenterology. Hypertension: Blood pressure normal side. Hold home antihypertensives for now. Hypothyroidism: Continue levothyroxine DVT prophylaxis: SCD boots Code status: Full code Quality Stroke Does the patient have a stroke diagnosis?: No VTE Prior VTE?: No VTE Risk Level:: Medical - moderate - high VTE Device Contraindication: N/A - Device Ordered VTE Drug Contraindication: Treatment Not Indicated
--- NOTE | 2025-03-12 20:49 | PHA.MEDREC ---
Addendum entered by Kadeem Rock PharmSorin 03/13/25 08:32: Spoke with Julieta at [facility] who was able to confirm the instructions for Melanikelco. Original Note: Pharmacy Consult ? Medication Reconciliation Pharmacy has completed the medication reconciliation. Patient is not familiar with his medication names and doses. Tried to call assisted living at [facility] ([facility]) x 3 with no answer. Left voicemail. Utilized claims. [employer] directions did not cross over from claims, will leave a note for AM pharmacist to follow up.
--- NOTE | 2025-03-12 21:02 | PC.NURSE ---
at this time 1st unit has been transfusing for 1hr 57 min at this time the pt began to feel nauseous, transfusion paused @2101 provider Janette Garcia contacted about pt being nauseous, VSS @2104 provider Janette Garcia placed order for Zofran and gave verbal order to restart transfusion after some time if pt is not having an allergic reaction
--- NOTE | 2025-03-12 21:17 | PC.NURSE ---
pt medicated per MAR
--- NOTE | 2025-03-12 21:21 | PC.NURSE ---
transfusion restarted at this time, VSS, pt denies itching/numbness/tingling, nausea improved
--- NOTE | 2025-03-12 22:35 | PC.NURSE ---
1st unit transfused at this time
--- NOTE | 2025-03-12 22:56 | PC.NURSE ---
2nd unit of blood began transfusing at this time
--- NOTE | 2025-03-12 23:09 | PC.NURSE ---
2nd unit of blood transfusing over 15 min, pt denies CP/SOB/back pain
--- NOTE | 2025-03-12 23:14 | PC.NURSE ---
pt medicated per MAR
[2025-03-13] VITALS (7 sets, daily range): BP systolic 96–119; BP diastolic 40–59; PULSE 73–87; RESP 14–18; TEMP 36.5–37.1; O2SAT 95–98; BMI 30.5
--- NOTE | 2025-03-13 01:25 | PC.NURSE ---
Written report complete. Pt being transported to room 444 by agricultural engineering technician and t/w, 2nd unit of blood currently being infused.
[2025-03-13] MEDS: Lactated Ringers 250 ML 999 ML IV (02:37)
[2025-03-13 03:22] LABS: MANUAL DIFF FLAG NO
[2025-03-13 03:23] LABS: Hematocrit 25.0 % (42.0-52.0); Hemoglobin 8.8 g/dl (14.0-18.0); Imm Gran Abs Auto 0.03 X10*3/uL (0.00-0.03); Imm Gran Pct Auto 0.5 % (0.0-0.4); Lymphocytes Absolute Auto 0.8 X10*3/uL (1.2-4.9); Mean Corpuscular HGB Conc 35.2 g/dl (31.0-36.0); Mean Corpuscular Hemoglobin 34.5 pg (27.0-33.0); Mean Corpuscular Volume 98.0 fL (80.0-98.0); NRBC Abs Auto 0.000 X10*3/uL (0.0-0.012); NRBC Pct Auto 0.0 /100WBC (0.0-0.2); Platelet Count 138 X10*3/uL (160-400); Red Blood Count 2.55 X10*6/uL (4.60-5.80); White Blood Count 6.1 X10*3/uL (4.8-10.8)
[2025-03-13 07:43] LABS: Alanine Aminotransferase 59 U/L (0-40); Albumin Level 4.0 g/dL (3.5-5.0); Alkaline Phosphatase 68 U/L (39-117); Anion Gap 28 (12-20); Aspartate Amino Transferase 44 U/L (5-37); Blood Urea Nitrogen 108 mg/dL (9-16); Calcium 7.8 mg/dL (8.4-10.2); Carbon Dioxide 17 mmol/L (22-29); Chloride 99 mmol/L (96-108); Creatinine Clr Calc Pharmacy 7.4; Estimated Glomerular Filt Rate 4; Potassium 6.4 mmol/L (3.3-5.1); Sodium 138 mmol/L (135-145); Total Protein 6.9 g/dL (6.5-8.0)
[2025-03-13 07:57] LABS: Hematocrit 26.3 % (42.0-52.0); Hemoglobin 8.9 g/dl (14.0-18.0); Imm Gran Abs Auto 0.03 X10*3/uL (0.00-0.03); Imm Gran Pct Auto 0.5 % (0.0-0.4); Lymphocytes Absolute Auto 1.0 X10*3/uL (1.2-4.9); MANUAL DIFF FLAG SCAN; Mean Corpuscular HGB Conc 33.8 g/dl (31.0-36.0); Mean Corpuscular Hemoglobin 34.0 pg (27.0-33.0); Mean Corpuscular Volume 100.4 fL (80.0-98.0); NRBC Abs Auto 0.000 X10*3/uL (0.0-0.012); NRBC Pct Auto 0.0 /100WBC (0.0-0.2); PLT CLUMP 1; Red Blood Count 2.62 X10*6/uL (4.60-5.80); SCAN SMEAR FLAG 1
--- NOTE | 2025-03-13 07:58 | HO.PM.IMPN ---
Subjective Subjective Date of Service: 03/13/25 Review of Systems Follow up anemia Patient denies abdominal pain, nausea, vomiting Physical Exam Exam: Exam: Appearing in no acute distress lung sounds are clear to auscultation heart regular rate rhythm, clear S1, S2 positive bowel sounds, abdomen is soft, nontender neuro patient is alert x3, no focal deficits Vital Signs: Vital Signs: Last Vital Signs Temp 98.0 F 03/13/25 03:54 Pulse 74 03/13/25 03:54 Resp 16 03/13/25 03:54 BP 107/52 L 03/13/25 03:54 Pulse Ox 97 03/13/25 03:54 O2 Del Method Room Air 03/13/25 03:54 BMI result Body Mass Index 30.5 Objective Data Active Medications Acetaminophen (Acetaminophen 325 Mg Tablet) 650 mg PO Q6H PRN PRN Reason: Pain, Mild 1-3,fever,headache Calcium Carbonate (Calcium Carbonate 750 Mg Tab.Chew) 750 mg PO Q4H PRN PRN Reason: Heartburn Magnesium Hydroxide (Milk Of Magnesia 30 Ml Oral.Susp) 30 ml PO DAILY PRN PRN Reason: Constipation Melatonin (Melatonin 3 Mg Tablet) 6 mg PO BEDTIME PRN PRN Reason: Insomnia Last Admin: 03/12/25 23:12 Dose: 6 mg Documented By: DESIRAE Sodium Chloride (0.9 % Sodium Chloride Flush 3 Ml Syringe) [facility] Last Admin: 03/13/25 00:13 Dose: Not Given Documented By: BLANKA Non-Admin Reason: IV Running Labs 03/13/25 06:39 03/13/25 06:39 Labs: Laboratory Results - last 24 hr 03/12/25 03/12/25 03/12/25 17:04 17:05 18:15 MCV 103.8 H MCH 36.0 H MCHC 34.7 RDW 14.1 Plt Count 169 D MPV 10.7 Immature Gran % (Auto) 0.3 Neut % (Auto) 65.8 Lymph % (Auto) 15.9 L [place] % (Auto) 13.4 H Eos % (Auto) 3.7 Baso % (Auto) 0.9 Lymph # (Auto) 0.9 L [place] # (Auto) 0.8 Eos # (Auto) 0.2 Baso # (Auto) 0.1 Abs Immat Gran (auto) 0.02 Absolute Neuts (auto) 3.8 Absolute Nucleated RBC 0.000 Nucleated RBC % (auto) 0.0 Anion Gap 25 H Estim Creat Clear Calc 7.9 Estimated GFR 5 Random Glucose 74 Calcium 7.8 L D Total Bilirubin 0.5 Direct Bilirubin 0.2 AST 39 H ALT 59 H Alkaline Phosphatase 74 Total Protein 6.9 Albumin 4.1 Stool Occult Blood POSITIVE Blood Type A Positive Antibody Screen NEGATIVE Crossmatch See Detail 03/13/25 03/13/25 03:20 06:39 MCV 98.0 D MCH 34.5 H MCHC 35.2 RDW 15.9 Plt Count 138 L MPV 10.0 Not Reportable Immature Gran % (Auto) 0.5 H Neut % (Auto) 73.0 Lymph % (Auto) 12.4 L [place] % (Auto) 10.3 Eos % (Auto) 3.3 Baso % (Auto) 0.5 Lymph # (Auto) 0.8 L [place] # (Auto) 0.6 Eos # (Auto) 0.2 Baso # (Auto) 0.0 Abs Immat Gran (auto) 0.03 Absolute Neuts (auto) 4.5 Absolute Nucleated RBC 0.000 Nucleated RBC % (auto) 0.0 Anion Gap 28 H Estim Creat Clear Calc 7.4 Estimated GFR 4 Random Glucose 82 Calcium 7.8 L Total Bilirubin 0.6 Direct Bilirubin AST 44 H ALT 59 H Alkaline Phosphatase 68 Total Protein 6.9 Albumin 4.0 Stool Occult Blood Blood Type Antibody Screen Crossmatch Assessment and Plan (1) GI bleed: Status: Acute Plan 69-year-old male with a past of HTN HLD, ESRD on, CHF, nephrotic syndrome diabetes, history of small-bowel obstruction, anemia, hypothyroidism, AFib on Eliquis presented to the hospital today with a chief complaint of bright red blood per rectum. BRBPR Patient's hemoglobin on presentation is 6.3. Being ordered for 1 unit of PRBC GI consult> Plan for EGD and colo tomorrow Clear diet IV PPI ESRD Patient on hemodialysis. Nephrology consult, RTANE AFib Rate controlled. Hold home Eliquis until cleared by Gastroenterology. Hypertension Blood pressure normal side. Hold home antihypertensives for now. Hypothyroidism Continue levothyroxine DVT prophylaxis: SCD boots Code status: Full code Quality Stroke Does the patient have a stroke diagnosis?: No VTE Prior VTE?: No VTE Risk Level:: Medical - moderate - high VTE Device Contraindication: N/A - Device Ordered VTE Drug Contraindication: Treatment Not Indicated
--- NOTE | 2025-03-13 08:37 | MHC.CM.PN ---
CM met with Patient at bedside and addressed IMM with him, providing Patient with the original and a copy has been placed on the chart. Patient lives alone @ [facility] and he uses a walker to assist with mobility. Patient receives his HD @ [facility]. Home/resume said services is the goal and CM has initiated and will follow for dc planning. PCP ,is Dr. Alberto Melo and HCP is Mother/Karie. Patient will require assist with transport @ dc.
[2025-03-13 08:48] LABS: White Blood Count 6.1 X10*3/uL (4.8-10.8)
[2025-03-13] MEDS: 0.9 % Sodium Chloride Flush 3 ML SYRINGE IVFLUSH ×3 (09:40→21:44)
--- NOTE | 2025-03-13 10:55 | PM.GICN ---
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 Patient had noted 1 d of rectal bleeding and had HGB checked which was 8 g/dl, normall sits around 9-10 g/dl He had last colonoscopy 02/17- with internal hemorrhoids and diverticulosis He has mild nausea, denies abdominal pain, or vomiting. Denies taking nsaids, sick contacts, diarrhea. No melena or fever. He had been seen in Gi office with Dr cruz and plan was for EGD, colo to investigate anemia Review of Systems Review of Systems: Constitutional : No Weight loss, No Fever, No Chills ENT/Mouth : No sore throat, No Rhinorrhea Eyes: No Swelling, No Redness Cardiovascular : No Chest Pain, + SOB, No Edema Respiratory : No Cough, No Sputum, No Wheezing Gastrointestinal : see HPI Genitourinary : NO Dysuria, No Urinary Frequency, No Hematuria, No Urgency Musculoskeletal : No joint pain, No Myalgias, No Joint Swelling Skin : No Skin Lesions, No rash Neuro : No Weakness, No Numbness, No Dizziness, No Headache Psych : No Anxiety/Panic, No Depression Heme/Lymph: No Bruising, No Lymphadenopathy Endocrine : No Polyuria, No Polydipsia All other systems reviewed and are negative. 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 Surgical History Surgical History (Updated 03/01/25 @ 00:00 by Francisca Pope) Hx of colonoscopy H/O aortic valve replacement Social History Social History Household Members: Other Housing: Assisted Living Facility Do you presently have visiting nurse or other home services: Yes Unable to assess alcohol history related to: Unknown Alcohol intake: former Comment: rings appropriately Patient Tobacco Use Status: Former Tobacco user Tobacco use type: Cigarette Years Smoked: 30 Smoked in Last 30 Days: No e-Cigarette/Vaping Use: Never Used Second Hand Smoke Exposure: No Use of substances other than those prescribed or required for medical reasons: No Have you been hit, kicked, punched, or otherwise hurt by someone within the past year? If so, by whom?: No Do you feel safe in your current relationship?: No Current Relationship Is there a partner from a previous relationship who is making you feel unsafe now?: No Are you made to feel afraid or neglected: No Advance Directives: No Advance Directives Information Provided: No Advance Directives Date on File: 07/30/23 Do you have a plan to hurt others: No Plan Recently lost weight without trying: No Eating poorly because of decreased appetite: No Nutrition Risks: No Nutritional Risk Poor oral hygiene: No service: No Current occupational status: unemployed and disabled Cognitive needs: No Hearing needs: No Vision needs: No Meds Allergies Allergy/AdvReac Type Severity Reaction Status Date / Time Penicillins Allergy Unknown UNKWN Verified 03/12/25 16:51 Active Medications: Current Medications Acetaminophen (Acetaminophen 325 Mg Tablet) 650 mg PO Q6H PRN PRN Reason: Pain, Mild 1-3,fever,headache Calcium Carbonate (Calcium Carbonate 750 Mg Tab.Chew) 750 mg PO Q4H PRN PRN Reason: Heartburn Magnesium Hydroxide (Milk Of Magnesia 30 Ml Oral.Susp) 30 ml PO DAILY PRN PRN Reason: Constipation Melatonin (Melatonin 3 Mg Tablet) 6 mg PO BEDTIME PRN PRN Reason: Insomnia Last Admin: 03/12/25 23:12 Dose: 6 mg Sodium Chloride (0.9 % Sodium Chloride Flush 3 Ml Syringe) 3 ml IVFLUSH QSHIFT [place]ALIA Last Admin: 03/13/25 09:40 Dose: 3 ml Home Medications ?Medication ?Instructions ?Recorded ?Confirmed ?Last Taken ?Type levothyroxine 75 mcg tablet 75 mcg PO DAILY@0600 06/27/20 03/12/25 02/20/25 History atorvastatin 40 mg tablet 40 mg PO BEDTIME 02/10/22 03/12/25 02/20/25 History sertraline 25 mg tablet 1 tab PO DAILY 10/03/22 03/12/25 02/20/25 History torsemide 20 mg tablet 40 mg PO BID@0900,1200 02/16/23 03/12/25 3 Days Ago History ~07/15/23 cholecalciferol (vitamin D3) 25 50 mcg PO DAILY 01/03/25 03/12/25 Unknown History mcg (1,000 unit) tablet omeprazole 40 mg capsule,delayed 40 mg PO DAILY@0630 01/03/25 03/12/25 02/20/25 History release apixaban 5 mg tablet (Eliquis) 5 mg PO BID 02/20/25 03/12/25 02/20/25 History sodium zirconium cyclosilicate 5 5 g PO MOWEFR 03/12/25 03/13/25 Unknown History gram oral powder packet (Lokelma) Physical Exam Exam: Exam: EXAM: GENERAL: The patient is well developed and nontoxic. VITAL SIGNS:see workflow HEENT: Nonicteric sclerae, PERRLA, EOMI. Oropharynx clear. Moist mucous membranes. Conjunctivae appear well perfused. No thyroid mass. CHEST: Chest wall is nontender. HEART: Regular rate and rhythm without murmurs with ESM at precordium LUNGS: Clear to auscultation bilaterally. ABDOMEN: Soft, positive bowel sounds, nontender, no organomegaly.no flank tenderness SKIN: No rash, no excessive bruising, petechiae, or purpura. NEUROLOGIC: Cranial nerves II-XII intact without motor/sensory deficit. Psych: normal affect Vital Signs: Vital Signs: Last Vital Signs Temp 97.8 F 03/13/25 08:00 Pulse 76 03/13/25 08:00 Resp 18 03/13/25 08:00 BP 96/52 L 03/13/25 08:00 Pulse Ox 96 03/13/25 08:00 O2 Del Method Room Air 03/13/25 08:00 BMI result Body Mass Index 30.5 Results Labs 03/13/25 06:39 03/13/25 06:39 Labs: Short CBC 03/12/25 03/13/25 03/13/25 Range/Units 17:04 03:20 06:39 WBC 5.7 6.1 6.1 (4.8-10.8) X10*3/uL Hgb 7.6 L 8.8 L 8.9 L (14.0-18.0) g/dl Hct 21.9 L 25.0 L 26.3 L (42.0-52.0) % Plt Count 169 D 138 L TNP (160-400) X10*3/uL BMP 03/12/25 03/13/25 17:04 06:39 Sodium 139 138 Potassium 6.3 H* 6.4 H* Chloride 99 99 Carbon Dioxide 21 L 17 L BUN 98 H 108 H Creatinine 10.68 H* 11.53 H* Calcium 7.8 L D 7.8 L Liver Function 03/12/25 03/13/25 Range/Units 17:04 06:39 Total Bilirubin 0.5 0.6 (0.0-1.0) mg/dL Direct Bilirubin 0.2 (0.0-0.5) mg/dL AST 39 H 44 H (5-37) U/L ALT 59 H 59 H (0-40) U/L Alkaline Phosphatase 74 68 (39-117) U/L Albumin 4.1 4.0 (3.5-5.0) g/dL Assessment and Plan (1) GI bleed: Qualifiers: GI bleed type/associated pathology: unspecified gastrointestinal hemorrhage type Qualified Code(s): K92.2 - Gastrointestinal hemorrhage, unspecified Status: Acute Plan 1/ Acute on chronic anemia, with overt GI bleeding- stable vitals, could be hemorrhoidal vs low lying mass or lesion PLAN: 1/ EGD and colo tomorrow 2/ hold eliquis, last dose yesterday morning 3/ monitor H/H q8-12 hrly --transfuse as needed for target 8 g/dl Procedures Date of Service Date of Service: 03/13/25
--- NOTE | 2025-03-13 14:39 | HO.ANESPROP2 ---
Documented by User: Shanti Flowers NP 03/13/25 15:00 HPI - Anesthesia Eval Consult details Narrative: 69 yr old male for upper endoscopy, colonoscopy s/p aortic valve replacement ESRD: last dialysis 03/13/25 CHF: echo from 2023 with EF 55-60% Acute on chronic anemia: Hgb 7.6 --> received 2 units PRBCs, Hgb 8.9 PMFSH Active Problems Active Problems: All Active Problems Anemia (Acute) GI bleed (Acute) HOPSON (dyspnea on exertion) (Acute) H/O: GI bleed (Acute) Hypothyroidism (Acute) Screening for colon cancer (Acute) Screening for prostate cancer (Acute) Adult general medical exam (Acute) History of ETOH abuse (Acute) History of smoking (Acute) Laboratory exam ordered as part of routine general medical examination (Acute) Heme positive stool (Acute) ESRF (end stage renal failure) (Acute) Asthenia due to disease (Acute) Anemia (Acute) Bacteremia (Acute) ESRD (end stage renal disease) (Acute) Bacteremia due to Gram-positive bacteria (Acute) Obesity (BMI 35.0-39.9 without comorbidity) (Acute) Sepsis due to COVID-19 (Acute) ESRD on hemodialysis (Acute) Pulmonary congestion (Acute) COVID-19 virus infection (Acute) Acute on chronic blood loss anemia (Acute) GI bleed (Acute) Intravenous line infection (Acute) Acute febrile illness (Acute) Leukocytosis (Acute) Staphylococcus aureus bacteremia (Acute) Line sepsis associated with dialysis catheter (Acute) Sepsis (Acute) ESRD on dialysis (Acute) H/O aortic valve replacement (Acute) Renal failure (Acute) Acidosis, metabolic (Acute) Heart failure with preserved ejection fraction (Acute) Aortic stenosis (Acute) Renal failure, chronic (Acute) Hypercalcemia (Acute) CKD (chronic kidney disease), stage V (Acute) Anasarca (Acute) Nephrotic syndrome (Acute) Aortic stenosis (Acute) Acute on chronic kidney failure (Acute) Hypertension (Acute) Past Medical History Medical History Hyperkalemia Hypothyroidism MSSA bacteremia Adult failure to thrive Anemia Staphylococcal pneumonia Pleural effusion Anasarca associated with disorder of kidney Congestive heart failure Membranous nephrosis Aortic stenosis 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 Surgical History Surgical History Hx of colonoscopy H/O aortic valve replacement Social History Social History Household Members: Other Housing: Assisted Living Facility Do you presently have visiting nurse or other home services: Yes Unable to assess alcohol history related to: Unknown Alcohol intake: former Comment: rings appropriately Patient Tobacco Use Status: Former Tobacco user Tobacco use type: Cigarette Years Smoked: 30 Smoked in Last 30 Days: No e-Cigarette/Vaping Use: Never Used Second Hand Smoke Exposure: No Use of substances other than those prescribed or required for medical reasons: No Currently Displaying Signs/Symptoms of Drug Intoxication Withdrawal: No Have you been hit, kicked, punched, or otherwise hurt by someone within the past year? If so, by whom?: No Do you feel safe in your current relationship?: No Current Relationship Is there a partner from a previous relationship who is making you feel unsafe now?: No Are you made to feel afraid or neglected: No Advance Directives: No Advance Directives Information Provided: No Advance Directives Date on File: 07/30/23 Do you have a plan to hurt others: No Plan Recently lost weight without trying: No Eating poorly because of decreased appetite: No Nutrition Risks: No Nutritional Risk Poor oral hygiene: No service: No Current occupational status: unemployed and disabled Cognitive needs: No Hearing needs: No Vision needs: No Meds Allergies Allergy/AdvReac Type Severity Reaction Status Date / Time Penicillins Allergy Unknown UNKWN Verified 03/12/25 16:51 Active Medications: Current Medications Acetaminophen (Acetaminophen 325 Mg Tablet) 650 mg PO Q6H PRN PRN Reason: Pain, Mild 1-3,fever,headache Calcium Carbonate (Calcium Carbonate 750 Mg Tab.Chew) 750 mg PO Q4H PRN PRN Reason: Heartburn Levothyroxine Sodium (Levothyroxine Sodium 75 Mcg Tablet) 75 mcg PO DAILY@0600 [facility] Magnesium Hydroxide (Milk Of Magnesia 30 Ml Oral.Susp) 30 ml PO DAILY PRN PRN Reason: Constipation Melatonin (Melatonin 3 Mg Tablet) 6 mg PO BEDTIME PRN PRN Reason: Insomnia Last Admin: 03/12/25 23:12 Dose: 6 mg Omeprazole (Omeprazole 40 Mg Capsule.Dr) 40 mg PO DAILY@06 [facility] Pantoprazole Sodium (Pantoprazole Sodium 40 Mg/10 Ml Vial) 40 mg IVPUSH DAILY@06 [facility] Sertraline HCl (Sertraline Hcl 25 Mg Tablet) 25 mg PO DAILY [facility] Sodium Chloride (0.9 % Sodium Chloride Flush 3 Ml Syringe) 3 ml IVFLUSH QSHIFT [facility] Last Admin: 03/13/25 09:40 Dose: 3 ml Vitamin D (Cholecalciferol (Vitamin D3) 25 Mcg Tablet) 50 mcg PO DAILY [facility] Home Medications ?Medication ?Instructions ?Recorded ?Confirmed ?Last Taken ?Type levothyroxine 75 mcg tablet 75 mcg PO DAILY@0600 06/27/20 03/12/25 02/20/25 History atorvastatin 40 mg tablet 40 mg PO BEDTIME 02/10/22 03/12/25 02/20/25 History sertraline 25 mg tablet 1 tab PO DAILY 10/03/22 03/12/25 02/20/25 History torsemide 20 mg tablet 40 mg PO BID@0900,1200 02/16/23 03/12/25 3 Days Ago History ~07/15/23 cholecalciferol (vitamin D3) 25 50 mcg PO DAILY 01/03/25 03/12/25 Unknown History mcg (1,000 unit) tablet omeprazole 40 mg capsule,delayed 40 mg PO DAILY@0630 01/03/25 03/12/25 02/20/25 History release apixaban 5 mg tablet (Eliquis) 5 mg PO BID 02/20/25 03/12/25 02/20/25 History sodium zirconium cyclosilicate 5 5 g PO MOWEFR 03/12/25 03/13/25 Unknown History gram oral powder packet (Lokelma) Exam Height,Weight and Vital Signs: Height 6 ft Weight 102.1 kg Last Vital Signs Temp 98.4 F 03/13/25 11:52 Pulse 73 03/13/25 11:52 Resp 18 03/13/25 11:52 BP 104/56 L 03/13/25 11:52 Pulse Ox 96 03/13/25 11:52 O2 Del Method Room Air 03/13/25 11:52 Pertinent Lab Results Pertinent Lab Results: Laboratory Tests 03/12/25 03/12/25 03/12/25 17:04 17:05 18:15 WBC 5.7 RBC 2.11 L Hgb 7.6 L Hct 21.9 L MCV 103.8 H MCH 36.0 H MCHC 34.7 RDW 14.1 Plt Count 169 D MPV 10.7 Immature Gran % (Auto) 0.3 Neut % (Auto) 65.8 Lymph % (Auto) 15.9 L [place] % (Auto) 13.4 H Eos % (Auto) 3.7 Baso % (Auto) 0.9 Lymph # (Auto) 0.9 L [place] # (Auto) 0.8 Eos # (Auto) 0.2 Baso # (Auto) 0.1 Abs Immat Gran (auto) 0.02 Absolute Neuts (auto) 3.8 Absolute Nucleated RBC 0.000 Nucleated RBC % (auto) 0.0 Smear Tech's Comments Sodium 139 Potassium 6.3 H* Chloride 99 Carbon Dioxide 21 L Anion Gap 25 H BUN 98 H Creatinine 10.68 H* Estim Creat Clear Calc 7.9 Estimated GFR 5 Random Glucose 74 Calcium 7.8 L D Total Bilirubin 0.5 Direct Bilirubin 0.2 AST 39 H ALT 59 H Alkaline Phosphatase 74 Total Protein 6.9 Albumin 4.1 Stool Occult Blood POSITIVE Blood Type A Positive Antibody Screen NEGATIVE Crossmatch See Detail 03/13/25 03/13/25 03:20 06:39 WBC 6.1 6.1 RBC 2.55 L D 2.62 L Hgb 8.8 L 8.9 L Hct 25.0 L 26.3 L MCV 98.0 D 100.4 H MCH 34.5 H 34.0 H MCHC 35.2 33.8 RDW 15.9 16.3 H Plt Count 138 L TNP MPV 10.0 TNP Immature Gran % (Auto) 0.5 H 0.5 H Neut % (Auto) 73.0 71.6 Lymph % (Auto) 12.4 L 15.7 L [place] % (Auto) 10.3 8.9 Eos % (Auto) 3.3 2.5 Baso % (Auto) 0.5 0.8 Lymph # (Auto) 0.8 L 1.0 L [place] # (Auto) 0.6 0.5 Eos # (Auto) 0.2 0.2 Baso # (Auto) 0.0 0.1 Abs Immat Gran (auto) 0.03 0.03 Absolute Neuts (auto) 4.5 4.3 Absolute Nucleated RBC 0.000 0.000 Nucleated RBC % (auto) 0.0 0.0 Smear Tech's Comments VERIFIED Sodium 138 Potassium 6.4 H* Chloride 99 Carbon Dioxide 17 L Anion Gap 28 H BUN 108 H Creatinine 11.53 H* Estim Creat Clear Calc 7.4 Estimated GFR 4 Random Glucose 82 Calcium 7.8 L Total Bilirubin 0.6 Direct Bilirubin AST 44 H ALT 59 H Alkaline Phosphatase 68 Total Protein 6.9 Albumin 4.0 Stool Occult Blood Blood Type Antibody Screen Crossmatch Narrative Narrative: EKG 03/13/25 Vent. Rate : 73 BPM Atrial Rate : 73 BPM P-R Int : 200 ms QRS Dur : 110 ms QT Int : 420 ms P-R-T Axes : 44 28 65 degrees QTcB Int : 462 ms Normal sinus rhythm Nonspecific ST and T wave abnormality Abnormal ECG When compared with ECG of 20-Feb-2025 11:03, No significant change was found ECHO 07/2023 Conclusions: - Bioprosthetic aortic valve. - No obvious vegetation. Left Ventricle Normal left ventricular size and systolic function. The visually estimated ejection fraction is between 55-60%. 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 Family history of problems with anesthesia: No Surgical History Surgical History Hx of colonoscopy H/O aortic valve replacement History of Problems with Anesthesia: No Social History Social History Household Members: Other Housing: Assisted Living Facility Do you presently have visiting nurse or other home services: Yes Unable to assess alcohol history related to: Unknown Alcohol intake: former Comment: rings appropriately Patient Tobacco Use Status: Former Tobacco user Tobacco use type: Cigarette Years Smoked: 30 Smoked in Last 30 Days: No e-Cigarette/Vaping Use: Never Used Second Hand Smoke Exposure: No Use of substances other than those prescribed or required for medical reasons: No Currently Displaying Signs/Symptoms of Drug Intoxication Withdrawal: No Have you been hit, kicked, punched, or otherwise hurt by someone within the past year? If so, by whom?: No Do you feel safe in your current relationship?: No Current Relationship Is there a partner from a previous relationship who is making you feel unsafe now?: No Are you made to feel afraid or neglected: No Advance Directives: No Advance Directives Information Provided: No Advance Directives Date on File: 07/30/23 Do you have a plan to hurt others: No Plan Recently lost weight without trying: No Eating poorly because of decreased appetite: No Nutrition Risks: No Nutritional Risk Poor oral hygiene: No service: No Current occupational status: unemployed and disabled Cognitive needs: No Hearing needs: No Vision needs: No Meds Allergies Allergy/AdvReac Type Severity Reaction Status Date / Time Penicillins Allergy Unknown UNKWN Verified 03/12/25 16:51 Home Medications ?Medication ?Instructions ?Recorded ?Confirmed ?Last Taken ?Type levothyroxine 75 mcg tablet 75 mcg PO DAILY@0600 06/27/20 03/12/25 02/20/25 History atorvastatin 40 mg tablet 40 mg PO BEDTIME 02/10/22 03/12/25 02/20/25 History sertraline 25 mg tablet 1 tab PO DAILY 10/03/22 03/12/25 02/20/25 History torsemide 20 mg tablet 40 mg PO BID@0900,1200 02/16/23 03/12/25 3 Days Ago History ~07/15/23 cholecalciferol (vitamin D3) 25 50 mcg PO DAILY 01/03/25 03/12/25 Unknown History mcg (1,000 unit) tablet omeprazole 40 mg capsule,delayed 40 mg PO DAILY@0630 01/03/25 03/12/25 02/20/25 History release apixaban 5 mg tablet (Eliquis) 5 mg PO BID 02/20/25 03/12/25 02/20/25 History sodium zirconium cyclosilicate 5 5 g PO MOWEFR 03/12/25 03/13/25 Unknown History gram oral powder packet (Lokelma) Exam Airway Mallampati Class: II TM Dist: >3cm Neck ROM: Limited Heart: rrr Lungs: cta Assessment and Plan Assessment Anesthesia Assessment: Anesthesia Plan Discussed and Chart Reviewed Final Anesthetic Review Family History of Problems with Anesthesia: No History of Problems with Anesthesia: No NPO: Yes ASA Class: III Final Preanesthetic Review: No Changes in Pt Med Stat, Meds/Allgs Chart Reviewed, Consent Obtained/Reviewed and Anes Risks/Benef Reviewed Patient Risk: Intermediate Procedure Risk: Low Anesthetic Plan Anesthetic Plan: MAC: Disposition: Standard PACU
[2025-03-13] MEDS: PEG 3350/Na Sulf,Bicarb,Cl/KCL 4,000 ML SOLN.RECON 4000 ML PO (16:40)
[2025-03-13 21:59] LABS: MANUAL DIFF FLAG NO
[2025-03-13 22:01] LABS: Hematocrit 22.0 % (42.0-52.0); Hemoglobin 8.0 g/dl (14.0-18.0); Imm Gran Abs Auto 0.02 X10*3/uL (0.00-0.03); Imm Gran Pct Auto 0.4 % (0.0-0.4); Lymphocytes Absolute Auto 0.4 X10*3/uL (1.2-4.9); Mean Corpuscular HGB Conc 36.4 g/dl (31.0-36.0); Mean Corpuscular Hemoglobin 34.6 pg (27.0-33.0); Mean Corpuscular Volume 95.2 fL (80.0-98.0); NRBC Abs Auto 0.000 X10*3/uL (0.0-0.012); NRBC Pct Auto 0.0 /100WBC (0.0-0.2); Platelet Count 152 X10*3/uL (160-400); Red Blood Count 2.31 X10*6/uL (4.60-5.80); White Blood Count 5.2 X10*3/uL (4.8-10.8)
--- NOTE | 2025-03-13 22:14 | PM.CNNEP ---
History of Present Illness Reason for Consult Consult date: 03/13/25 Chief Complaint Chief complaint: ESR, GIB History of Present Illness Narrative: [facility] consulted for HD management in setting of adm with BRBPR ESRD for years at the [facility] T[facility] ( Dr Hinkle from [facility] is his System Dispatcher) Noted painless BPRBP. PMH as noted below Review of Systems Review of Systems Constitutional : No Weight loss, No Fever, No Chills ENT/Mouth : No sore throat, No Rhinorrhea Eyes: No Swelling, No Redness Cardiovascular : No Chest Pain, + SOB, No Edema Respiratory : No Cough, No Sputum, No Wheezing Gastrointestinal : see HPI Genitourinary : NO Dysuria, No Urinary Frequency, No Hematuria, No Urgency Musculoskeletal : No joint pain, No Myalgias, No Joint Swelling Skin : No Skin Lesions, No rash Neuro : No Weakness, No Numbness, No Dizziness, No Headache Psych : No Anxiety/Panic, No Depression Heme/Lymph: No Bruising, No Lymphadenopathy Endocrine : No Polyuria, No Polydipsia All other systems reviewed and are negative. 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 Surgical History Surgical History (Updated 03/01/25 @ 00:00 by Francisca Pope) Hx of colonoscopy H/O aortic valve replacement Social History Social History Household Members: Other Housing: Assisted Living Facility Do you presently have visiting nurse or other home services: Yes Unable to assess alcohol history related to: Unknown Alcohol intake: former Comment: rings appropriately Patient Tobacco Use Status: Former Tobacco user Tobacco use type: Cigarette Years Smoked: 30 Smoked in Last 30 Days: No e-Cigarette/Vaping Use: Never Used Second Hand Smoke Exposure: No Use of substances other than those prescribed or required for medical reasons: No Currently Displaying Signs/Symptoms of Drug Intoxication Withdrawal: No Have you been hit, kicked, punched, or otherwise hurt by someone within the past year? If so, by whom?: No Do you feel safe in your current relationship?: No Current Relationship Is there a partner from a previous relationship who is making you feel unsafe now?: No Are you made to feel afraid or neglected: No Advance Directives: No Advance Directives Information Provided: No Advance Directives Date on File: 07/30/23 Do you have a plan to hurt others: No Plan Recently lost weight without trying: No Eating poorly because of decreased appetite: No Nutrition Risks: No Nutritional Risk Poor oral hygiene: No service: No Current occupational status: unemployed and disabled Cognitive needs: No Hearing needs: No Vision needs: No Meds Allergies Allergy/AdvReac Type Severity Reaction Status Date / Time Penicillins Allergy Unknown UNKWN Verified 03/12/25 16:51 Active Medications: Current Medications Acetaminophen (Acetaminophen 325 Mg Tablet) 650 mg PO Q6H PRN PRN Reason: Pain, Mild 1-3,fever,headache Calcium Carbonate (Calcium Carbonate 750 Mg Tab.Chew) 750 mg PO Q4H PRN PRN Reason: Heartburn Levothyroxine Sodium (Levothyroxine Sodium 75 Mcg Tablet) 75 mcg PO DAILY@0600 [facility] Magnesium Hydroxide (Milk Of Magnesia 30 Ml Oral.Susp) 30 ml PO DAILY PRN PRN Reason: Constipation Melatonin (Melatonin 3 Mg Tablet) 6 mg PO BEDTIME PRN PRN Reason: Insomnia Last Admin: 03/12/25 23:12 Dose: 6 mg Omeprazole (Omeprazole 40 Mg Capsule.Dr) 40 mg PO DAILY@0630 [facility] Pantoprazole Sodium (Pantoprazole Sodium 40 Mg/10 Ml Vial) 40 mg IVPUSH DAILY@0630 [facility] Sertraline HCl (Sertraline Hcl 25 Mg Tablet) 25 mg PO DAILY [facility] Sodium Chloride (0.9 % Sodium Chloride Flush 3 Ml Syringe) 3 ml IVFLUSH QSHIFT [facility] Last Admin: 03/13/25 21:44 Dose: 3 ml Vitamin D (Cholecalciferol (Vitamin D3) 25 Mcg Tablet) 50 mcg PO DAILY [facility] Home Medications ?Medication ?Instructions ?Recorded ?Confirmed ?Last Taken ?Type levothyroxine 75 mcg tablet 75 mcg PO DAILY@0600 06/27/20 03/12/25 02/20/25 History atorvastatin 40 mg tablet 40 mg PO BEDTIME 02/10/22 03/12/25 02/20/25 History sertraline 25 mg tablet 1 tab PO DAILY 10/03/22 03/12/25 02/20/25 History torsemide 20 mg tablet 40 mg PO BID@0900,1200 02/16/23 03/12/25 3 Days Ago History ~07/15/23 cholecalciferol (vitamin D3) 25 50 mcg PO DAILY 01/03/25 03/12/25 Unknown History mcg (1,000 unit) tablet omeprazole 40 mg capsule,delayed 40 mg PO DAILY@0630 01/03/25 03/12/25 02/20/25 History release apixaban 5 mg tablet (Eliquis) 5 mg PO BID 02/20/25 03/12/25 02/20/25 History sodium zirconium cyclosilicate 5 5 g PO MOWEFR 03/12/25 03/13/25 Unknown History gram oral powder packet (Lokelma) Physical Exam Vital Signs: Last Vital Signs Temp 98.4 F 03/13/25 20:00 Pulse 87 03/13/25 20:00 Resp 16 03/13/25 20:00 BP 112/59 L 03/13/25 20:00 Pulse Ox 98 03/13/25 20:00 O2 Del Method Room Air 03/13/25 20:00 BMI result Body Mass Index 30.5 Results Lab Results 03/13/25 21:54 03/13/25 06:39 Lab results: Chemistry 03/12/25 03/13/25 17:04 06:39 Sodium 139 138 Potassium 6.3 H* 6.4 H* Carbon Dioxide 21 L 17 L BUN 98 H 108 H Creatinine 10.68 H* 11.53 H* Calcium 7.8 L D 7.8 L Hematology 03/12/25 03/13/25 03/13/25 17:04 03:20 06:39 WBC 5.7 6.1 6.1 Hgb 7.6 L 8.8 L 8.9 L Plt Count 169 D 138 L TNP 03/13/25 21:54 WBC 5.2 Hgb 8.0 L Plt Count 152 L Assessment and Plan (1) BRBPR (bright red blood per rectum): Status: Acute Plan 69-year-old male with a past of HTN HLD, ESRD on, CHF, H/O nephrotic syndrome diabetes, history of small-bowel obstruction, anemia, hypothyroidism, AFib on Eliquis presented to the hospital withof bright red blood per rectum. BRBPR: Patient's hemoglobin on presentation is 6.3. s/p xfsuion and Hb bbeing monitored NPO GI consult IV PPI ESRD: usu TTS [facility] HD at [facility] HyperK: usu on [facility] on non-HD days to control AFib: usu maintained on Eliquis --now on hold Hypertension: BP now on hold Hypothyroidism: Continue levothyroxine REC: HD today n 1 K bath and track K; xfuse to keep Hb > 7.0; GI eval; consider DDAVP if cont active bleeding Procedures Date of Service Date of Service: 03/13/25
[2025-03-13 22:19] LABS: Anion Gap 22 (12-20); Blood Urea Nitrogen 50 mg/dL (9-16); Calcium 7.8 mg/dL (8.4-10.2); Carbon Dioxide 30 mmol/L (22-29); Chloride 94 mmol/L (96-108); Creatinine Clr Calc Pharmacy 11.7; Estimated Glomerular Filt Rate 7; Potassium 4.1 mmol/L (3.3-5.1); Sodium 142 mmol/L (135-145)
[2025-03-14] VITALS (8 sets, daily range): BP systolic 99–121; BP diastolic 47–75; PULSE 66–102; RESP 16–19; TEMP 36.2–37.1; O2SAT 94–100
[2025-03-14] MEDS: 0.9 % Sodium Chloride Flush 3 ML SYRINGE IVFLUSH ×2 (07:56→21:13)
--- NOTE | 2025-03-14 10:16 | MHC.CM.PN ---
Per ROUNDS discussion, Patient is not yet medically cleared for dc (being scoped today, IV Protonix); returning home to [facility] is the goal and CM will continue to follow.
[2025-03-14] MEDS: Lactated Ringers 1,000 ML 100 ML IVCONT ×2 (10:45→21:12)
--- NOTE | 2025-03-14 11:56 | P.PNGI_ITS ---
Subjective Subjective Date of Service: 03/14/25 Interval History: hgb stable after receiving PRBC still having rectal bleeding no abdominal pain no n/v Critical Care Time (minutes): 0 Physical Exam 2 Exam: Exam: EXAM: GENERAL: The patient is relaxed VITAL SIGNS:see workflow HEENT: Nonicteric sclerae, PERRLA, EOMI. Oropharynx clear. Moist mucous membranes. Conjunctivae appear well perfused. No thyroid mass. CHEST: Chest wall is nontender. HEART: Regular rate and rhythm without murmurs. LUNGS: Clear to auscultation bilaterally. ABDOMEN: Soft, positive bowel sounds, nontender, no organomegaly.no flank tenderness SKIN: No rash, no excessive bruising, petechiae, or purpura. NEUROLOGIC: Cranial nerves II-XII intact without motor/sensory deficit. Psych: normal affect Vital Signs: Vital Signs: Last Vital Signs Temp 97.2 F 03/14/25 07:45 Pulse 74 03/14/25 07:45 Resp 18 03/14/25 07:45 BP 108/53 L 03/14/25 07:45 Pulse Ox 94 03/14/25 07:45 O2 Del Method Room Air 03/14/25 07:45 BMI result Body Mass Index 30.5 Objective Data Labs 03/13/25 21:54 03/13/25 21:54 Labs: Laboratory Results - last 24 hr 03/13/25 21:54 WBC 5.2 RBC 2.31 L Hgb 8.0 L Hct 22.0 L MCV 95.2 D MCH 34.6 H MCHC 36.4 H RDW 15.9 Plt Count 152 L MPV 10.0 Immature Gran % (Auto) 0.4 Neut % (Auto) 79.5 H Lymph % (Auto) 7.7 L [place] % (Auto) 10.1 Eos % (Auto) 1.9 Baso % (Auto) 0.4 Lymph # (Auto) 0.4 L [place] # (Auto) 0.5 Eos # (Auto) 0.1 Baso # (Auto) 0.0 Abs Immat Gran (auto) 0.02 Absolute Neuts (auto) 4.1 Absolute Nucleated RBC 0.000 Nucleated RBC % (auto) 0.0 Sodium 142 Potassium 4.1 D Chloride 94 L Carbon Dioxide 30 H Anion Gap 22 H BUN 50 H Creatinine 7.34 H* Estim Creat Clear Calc 11.7 Estimated GFR 7 Random Glucose 100 Calcium 7.8 L Procedures Date of Service Date of Service: 03/14/25 Progress Note: A&P Assessment and plan (1) GI bleed: Status: Acute Plan 1/ Acute on chronic blood loss anemia, rectal bleeding, could be lower etiology, vs upper GI with rapid transit PLAN: 1/ EGD and colo today for further assessement Time Spent With Patient Time: Total time managing care of this patient today ____ minutes. Quality Stroke Does the patient have a stroke diagnosis?: No VTE Prior VTE?: No VTE Risk Level:: Medical - moderate - high VTE Device Contraindication: N/A - Device Ordered VTE Drug Contraindication: Treatment Not Indicated
--- NOTE | 2025-03-14 13:10 | P.OPN-COLO_ITS ---
Colonoscopy Operative Note Operative Note Date of Service: 03/14/25 Narrative: Operative Information Procedure Description: EGD, Colonoscopy Indication: Anemia, rectal bleeding Anesthesia: MAC FLEXIBLE TRANSORAL UPPER GASTROINTESTINAL ENDOSCOPY AND COLONOSCOPY PROCEDURE NOTE UPPER ENDOSCOPY Consent: Indications for the procedure and potential complications of bleeding, perforation, reaction to medications and missed diagnosis were discussed with the patient and informed consent was obtained. Instrument: Olympus GIF H 190 J mid size upper endoscope Monitoring: Vital signs and clinical assessment, continuous EKG monitoring, Pulse oximetry, Carbon Dioxide monitoring and blood pressure monitoring were done throughout the procedure. Procedure: The patient was placed in the left lateral decubitis position and pre-procedure medications were administered and a bite block was placed. The endoscope was inserted into the mouth and advanced under direct vision to the third part of duodenum. A careful inspection was made as the upper endoscope was withdrawn including a retroflexed examination of the proximal stomach; Findings and interventions are described below. Findings: Larynx:normal Esophagus: GE junction at 43 cm, diaphragm hiatus at 45 cm, consistent with 2 cm hiatal hernia. 9 cm of barretts appearing mucosa noted, with mass like lesion at 41- 38 cm, bx and WATS brushings taken. Stomach: gastritis. Biopsies were obtained. Grade 2 flap valve on retroflexed examination of the cardia. Duodenum: duodenitis, mild, bx taken Intervention: Biopsies as noted above, WATS brushings COLONOSCOPY Instrument: Olympus variable stiffness pediatric scope 190L Colonoscopy Monitoring: Vital signs and clinical assessment, continuous EKG monitoring, Pulse oximetry, Carbon Dioxide monitoring and blood pressure monitoring were done throughout the procedure. Colon withdrawal time was 15 minutes. Procedure: The patient was placed in the left lateral decubitis position and pre-procedure medications were administered. After a digital rectal examination of the ano-rectum, the video colonoscope was inserted into the rectum and advanced through the colon to the cecum/TI. The colonoscope was slowly withdrawn in a retrograde panoramic fashion and the colon mucosa was carefully examined including a retroflexed view of the rectum. Findings and interventions are described below. Procedure Difficulty:moderate Findings: Terminal Ileum-not intubated Cecum: dieulafoy lesion noted with active oozing and pulsation, this was treated with x 3 clips and then hemospray and appeared to stop. Ascending Colon: diverticulosis, x 2 sessile polyps 6-8 mm noted, not removed Transverse Colon -normal Descending Colon:normal Sigmoid Colon: moderate diverticulosis Rectum: Retroflexion with small internal hemorrhoids, grade I Anorectum - normal Colon preparation: [place] Bowel Preparation Scale Right colon; 1-2 Transverse colon: 1-2 Left colon; 1 (0 = Unprepared colon segment with mucosa not seen due to solid stool that cannot be cleared. 1 = Portion of mucosa of the colon segment seen, but other areas of the colon segment not well seen due to staining, residual stool and/or opaque liquid. 2 = Minor amount of residual staining, small fragments of stool and/or opaque liquid, but mucosa of colon segment seen well. 3 = Entire mucosa of colon segment seen well with no residual staining, small fragments of stool or opaque liquid) Impression and Post Procedure Diagnosis: Endoscopy Findings: esophageal mass barretts hiatal hernia gastritis Colonoscopy Findings: dieulafoy diverticulosis colon polyps internal hemorrhoids Plan: Await Pathology results Repeat Colonoscopy with Dr Rodriguez for polyp removal High fiber diet leaflet avoid straining at stool, epsom salts and sitz bath, anusol supps or cream CT chest and abdomen with contrast, may need onc and referral for EUS and thoracics restart anti coagulation tomorrow Above findings were reviewed with the patient and relevant handouts were provided if indicated.
--- NOTE | 2025-03-14 15:24 | HO.PM.IMPN ---
Subjective Subjective Date of Service: 03/14/25 Interval History: tired after EGD/C-scope, denies nausea or abd pain or further rectal bleeding Review of Systems Review of Systems: Yes all other systems are reviewed and are negative Physical Exam Vital Signs: Vital Signs: Last Vital Signs Temp 97.5 F 03/14/25 14:03 Pulse 80 03/14/25 14:03 Resp 18 03/14/25 14:03 BP 105/54 L 03/14/25 14:03 Pulse Ox 100 03/14/25 14:03 O2 Del Method Room Air 03/14/25 14:03 BMI result Body Mass Index 30.5 Gen: in no acute distress HEENT: sclera anicteric, moist mucus membranes Neck: supple Lungs: clear to auscultation bilaterally Heart: regular rate and rhythm, no murmurs Abd: soft, non-tender, non-distended Ext: no edema Skin: warm/well-perfused Neuro: alert and oriented x3, no focal findings Psych: appropriate affect Objective Data Active Medications Acetaminophen (Acetaminophen 325 Mg Tablet) 650 mg PO Q6H PRN PRN Reason: Pain, Mild 1-3,fever,headache Apixaban (Apixaban 5 Mg Tablet) 5 mg PO BID [facility] Calcium Carbonate (Calcium Carbonate 750 Mg Tab.Chew) 750 mg PO Q4H PRN PRN Reason: Heartburn Lactated Ringer's (Lr) 1,000 mls @ 100 mls/hr IVCONT .Q10H [facility] Last Admin: 03/14/25 10:45 Dose: 100 mls/hr Documented By: TARA Levothyroxine Sodium (Levothyroxine Sodium 75 Mcg Tablet) 75 mcg PO DAILY@0600 [facility] Last Admin: 03/14/25 06:35 Dose: 75 mcg Documented By: JOCELYN Magnesium Hydroxide (Milk Of Magnesia 30 Ml Oral.Susp) 30 ml PO DAILY PRN PRN Reason: Constipation Melatonin (Melatonin 3 Mg Tablet) 6 mg PO BEDTIME PRN PRN Reason: Insomnia Last Admin: 03/12/25 23:12 Dose: 6 mg Documented By: DESIRAE Naloxone HCl (Naloxone Hcl 0.4 Mg/Ml Vial) 0.04 mg IVPUSH Q5M PRN PRN Reason: Excessive sedation or RR < 8 Omeprazole (Omeprazole 40 Mg Capsule.) 40 mg PO DAILY@0630 [facility] Last Admin: 03/14/25 06:35 Dose: 40 mg Documented By: JOCELYN Ondansetron HCl (Ondansetron Hcl 4 Mg/2 Ml Vial) 4 mg IVPUSH Q4H PRN PRN Reason: Nausea and Vomiting Last Admin: 03/14/25 09:29 Dose: 4 mg Documented By: ANA Ondansetron HCl (Ondansetron Hcl 4 Mg/2 Ml Vial) 4 mg IVPUSH ONCE PRN PRN Reason: Nausea and Vomiting Stop: 03/14/25 18:06 Pantoprazole Sodium (Pantoprazole Sodium 40 Mg/10 Ml Vial) 40 mg IVPUSH DAILY@30 [facility] Last Admin: 03/14/25 06:35 Dose: 40 mg Documented By: JOCELYN Sertraline HCl (Sertraline Hcl 25 Mg Tablet) 25 mg PO DAILY [facility] Last Admin: 03/14/25 07:56 Dose: 25 mg Documented By: ANA Sodium Biphosphate/Sodium Phosphate (Sodium Phosphate,[place]-Dibasic 133 Ml Enema) 133 ml MT ONCE PRN PRN Reason: Consult order Last Admin: 03/14/25 10:11 Dose: 133 ml Documented By: TREVONING Sodium Chloride (0.9 % Sodium Chloride Flush 3 Ml Syringe) [facility] Last Admin: 03/14/25 07:56 Dose: 3 ml Documented By: ANA Vitamin D (Cholecalciferol (Vitamin D3) 25 Mcg Tablet) 50 mcg PO DAILY [facility] Last Admin: 03/14/25 07:56 Dose: 50 mcg Documented By: ANA Labs 03/13/25 21:54 03/13/25 21:54 Labs: Laboratory Results - last 24 hr 03/13/25 21:54 MCV 95.2 D MCH 34.6 H MCHC 36.4 H RDW 15.9 Plt Count 152 L MPV 10.0 Immature Gran % (Auto) 0.4 Neut % (Auto) 79.5 H Lymph % (Auto) 7.7 L [place] % (Auto) 10.1 Eos % (Auto) 1.9 Baso % (Auto) 0.4 Lymph # (Auto) 0.4 L [place] # (Auto) 0.5 Eos # (Auto) 0.1 Baso # (Auto) 0.0 Abs Immat Gran (auto) 0.02 Absolute Neuts (auto) 4.1 Absolute Nucleated RBC 0.000 Nucleated RBC % (auto) 0.0 Anion Gap 22 H Estim Creat Clear Calc 11.7 Estimated GFR 7 Random Glucose 100 Calcium 7.8 L Assessment and Plan (1) GI bleed: Status: Acute Plan d3, 69yo M with ESRD on HD TuThSa, HTN, HLD, CHF, DM2, anemia, hypothyroidism, AF on apixaban presenting wiht BRBPR, found to also have hypokalemia 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 9 cm of barretts appearing mucosa noted, with mass like lesion at 41- 38 cm, bx and WATS brushings taken. Stomach: gastritis. Biopsies were obtained. Grade 2 flap valve on retroflexed examination of the cardia. Duodenum: duodenitis, mild, bx taken Terminal Ileum-not intubated Cecum: dieulafoy lesion noted with active oozing and pulsation, this was treated with x 3 clips and then hemospray and appeared to stop. Ascending Colon: diverticulosis, x 2 sessile polyps 6-8 mm noted, not removed Transverse Colon -normal Descending Colon:normal Sigmoid Colon: moderate diverticulosis Rectum: Retroflexion with small internal hemorrhoids, grade I Anorectum - normal - resume Eliquis tomorrow per GI - CT chest/abd/pelvis with contrast per GI - follow up with GI for biopsy results chronic anemia of ESRD with acute GI blood loss - transfused 2u pRBCs 03/12, H+H stable [was 7.6 on admission, not 6.3 as in prior progress note and HPI] ESRD - HD TuTh[facility] hyperK - resolved p Loklema, continue on non-HD days AF - resume Eliquis tomorrow HTN - holding losartan and torsemide, resume as needed hypothyroidism - continue LT4 mood disorder - sertraline VTE ppx - SCDs, resume Eliquis tomorrow dispo - eventual home In my clinical judgment, the patient requires continued inpatient hospitalization for the following reasons: anemia, workup of esophageal mass Total time managing care of this patient today: 45 minutes. Quality Stroke Does the patient have a stroke diagnosis?: No VTE Prior VTE?: No VTE Risk Level:: Medical - moderate - high VTE Device Contraindication: N/A - Device Ordered VTE Drug Contraindication: Treatment Not Indicated
[2025-03-14 19:14] LABS: Anion Gap 21 (12-20); Carbon Dioxide 26 mmol/L (22-29); Chloride 92 mmol/L (96-108); Potassium 4.2 mmol/L (3.3-5.1); Sodium 135 mmol/L (135-145)
[2025-03-15] VITALS (9 sets, daily range): BP systolic 79–99; BP diastolic 51–65; PULSE 71–98; RESP 18–20; TEMP 36.6–37.7; O2SAT 93–99
[2025-03-15 02:15] LABS: MANUAL DIFF FLAG NO
[2025-03-15 02:23] LABS: Hematocrit 22.0 % (42.0-52.0); Hemoglobin 7.5 g/dl (14.0-18.0); Imm Gran Abs Auto 0.03 X10*3/uL (0.00-0.03); Imm Gran Pct Auto 0.4 % (0.0-0.4); Lymphocytes Absolute Auto 0.5 X10*3/uL (1.2-4.9); Mean Corpuscular HGB Conc 34.1 g/dl (31.0-36.0); Mean Corpuscular Hemoglobin 33.8 pg (27.0-33.0); Mean Corpuscular Volume 99.1 fL (80.0-98.0); NRBC Abs Auto 0.000 X10*3/uL (0.0-0.012); NRBC Pct Auto 0.0 /100WBC (0.0-0.2); Platelet Count 142 X10*3/uL (160-400); Red Blood Count 2.22 X10*6/uL (4.60-5.80); White Blood Count 6.9 X10*3/uL (4.8-10.8)
[2025-03-15 02:32] LABS: Anion Gap 24 (12-20); Blood Urea Nitrogen 63 mg/dL (9-16); Calcium 7.5 mg/dL (8.4-10.2); Carbon Dioxide 26 mmol/L (22-29); Chloride 91 mmol/L (96-108); Creatinine Clr Calc Pharmacy 8.9; Estimated Glomerular Filt Rate 5; Lipase 16 U/L (8-78); Potassium 4.5 mmol/L (3.3-5.1); Sodium 136 mmol/L (135-145)
[2025-03-15] MEDS: Lactated Ringers 500 ML 999 ML IV (06:34)
[2025-03-15 07:39] LABS: Hematocrit 22.4 % (42.0-52.0); Hemoglobin 7.7 g/dl (14.0-18.0); Mean Corpuscular HGB Conc 34.4 g/dl (31.0-36.0); Mean Corpuscular Hemoglobin 34.2 pg (27.0-33.0); Mean Corpuscular Volume 99.6 fL (80.0-98.0); NRBC Abs Auto 0.000 X10*3/uL (0.0-0.012); NRBC Pct Auto 0.0 /100WBC (0.0-0.2); Platelet Count 128 X10*3/uL (160-400); Red Blood Count 2.25 X10*6/uL (4.60-5.80); White Blood Count 5.6 X10*3/uL (4.8-10.8)
--- NOTE | 2025-03-15 07:56 | HO.POSTANES ---
Post Anesthesia Evaluation Post Anesthesia Evaluation Date of Service: 03/15/25 Vital Signs: Vital Signs Temp Pulse Resp BP Pulse Ox O2 Del Method O2 Flow Rate 03/15/25 07:38 98.0 F 90 20 92/52 L 93 Room Air 03/15/25 06:13 88/52 L 03/15/25 05:21 90 79/52 L 94 Nasal Cannula 2 03/15/25 03:54 98.5 F 95 18 92/52 L 95 Nasal Cannula 2 03/15/25 00:22 96/52 L 03/14/25 23:42 98.7 F 102 H 18 102/60 95 Room Air 03/14/25 20:00 98.8 F 94 16 111/56 L 98 Room Air Anesthesia: Monitored Mental Status: Awake Pain Control: Satisfactory Nausea/Vomiting: None Hydration: Adequate Anesthesia-Related Issues: No Anes. Related Issues
[2025-03-15 08:00] LABS: Anion Gap 24 (12-20); Blood Urea Nitrogen 65 mg/dL (9-16); Calcium 7.5 mg/dL (8.4-10.2); Carbon Dioxide 24 mmol/L (22-29); Chloride 92 mmol/L (96-108); Creatinine Clr Calc Pharmacy 8.6; Estimated Glomerular Filt Rate 5; Potassium 4.8 mmol/L (3.3-5.1); Sodium 135 mmol/L (135-145)
[2025-03-15] MEDS: 0.9 % Sodium Chloride Flush 3 ML SYRINGE IVFLUSH ×2 (08:02→15:56)
[2025-03-15] MEDS: Lactated Ringers 1,000 ML 100 ML IVCONT (08:02)
[2025-03-15] MEDS: iohexoL 350 MG/ML 100 ML INFUS..BTL IV (08:16)
[2025-03-15 10:14] LABS: Reticulocytes Absolute 0.023 X10*6/uL (0.026-0.095)
[2025-03-15 12:02] LABS: Ferritin 2708 ng/mL (20-250)
--- NOTE | 2025-03-15 12:58 | HO.PM.IMPN ---
Subjective Subjective Date of Service: 03/15/25 Interval History: worsening shortness of breath and also became hypotensive overnight CT suggestive of metastatic CA Review of Systems Review of Systems: Yes all other systems are reviewed and are negative Physical Exam Vital Signs: Vital Signs: Last Vital Signs Temp 97.9 F 03/15/25 11:53 Pulse 71 03/15/25 11:53 Resp 20 03/15/25 11:53 BP 99/65 03/15/25 11:53 Pulse Ox 99 03/15/25 11:53 O2 Del Method Nasal Cannula 03/15/25 11:53 O2 Flow Rate 4 03/15/25 11:53 BMI result Body Mass Index 30.5 Gen: chronically ill-appearing HEENT: sclera anicteric, moist mucus membranes Neck: supple Lungs: diminished bilaterally Heart: regular rate and rhythm, no murmurs Abd: soft, non-tender, non-distended Ext: no edema Skin: warm/well-perfused Neuro: alert and oriented x3, no focal findings Psych: appropriate affect Objective Data Active Medications Acetaminophen (Acetaminophen 325 Mg Tablet) 650 mg PO Q6H PRN PRN Reason: Pain, Mild 1-3,fever,headache Last Admin: 03/15/25 01:43 Dose: 650 mg Documented By: JOSE Albuterol/Ipratropium (Albuterol/Iprat 2.5/0.5mg 3 Ml Ampul.Neb) 3 ml INHALE RQ4H WHILE AWAKE PRN PRN Reason: Shortness of Breath Apixaban (Apixaban 5 Mg Tablet) 5 mg PO BID [facility] Calcium Carbonate (Calcium Carbonate 750 Mg Tab.Chew) 750 mg PO Q4H PRN PRN Reason: Heartburn Levothyroxine Sodium (Levothyroxine Sodium 75 Mcg Tablet) 75 mcg PO DAILY@0600 [facility] Last Admin: 03/15/25 06:07 Dose: 75 mcg Documented By: JOSE Magnesium Hydroxide (Milk Of Magnesia 30 Ml Oral.Susp) 30 ml PO DAILY PRN PRN Reason: Constipation Melatonin (Melatonin 3 Mg Tablet) 6 mg PO BEDTIME PRN PRN Reason: Insomnia Last Admin: 03/12/25 23:12 Dose: 6 mg Documented By: DESIRAE Naloxone HCl (Naloxone Hcl 0.4 Mg/Ml Vial) 0.04 mg IVPUSH Q5M PRN PRN Reason: Excessive sedation or RR < 8 Omeprazole (Omeprazole 40 Mg Capsule.Dr) 40 mg PO DAILY@0630 [facility] Last Admin: 03/15/25 06:07 Dose: 40 mg Documented By: JOSE Ondansetron HCl (Ondansetron Hcl 4 Mg/2 Ml Vial) 4 mg IVPUSH Q4H PRN PRN Reason: Nausea and Vomiting Last Admin: 03/15/25 08:02 Dose: 4 mg Documented By: BLANCHE Pantoprazole Sodium (Pantoprazole Sodium 40 Mg/10 Ml Vial) 40 mg IVPUSH DAILY@629 [facility] Last Admin: 03/15/25 06:07 Dose: 40 mg Documented By: JOSE Sertraline HCl (Sertraline Hcl 25 Mg Tablet) 25 mg PO DAILY [facility] Last Admin: 03/15/25 08:08 Dose: Not Given Documented By: BLANCHE Non-Admin Reason: Patient Refused Sodium Biphosphate/Sodium Phosphate (Sodium Phosphate,[place]-Dibasic 133 Ml Enema) 133 ml MS ONCE PRN PRN Reason: Consult order Last Admin: 03/14/25 10:11 Dose: 133 ml Documented By: ANA Sodium Chloride (0.9 % Sodium Chloride Flush 3 Ml Syringe) 3 ml IVFLUSH QSHIFT [facility] Last Admin: 03/15/25 08:02 Dose: 3 ml Documented By: BLANCHE Sodium Zirconium Cyclosilicate (Sodium Zirconium Cyclosilicate 5 Gm Powd.Pack) 5 gm PO MOWEFR [facility] Last Admin: 03/14/25 15:51 Dose: 5 gm Documented By: ANA Vitamin D (Cholecalciferol (Vitamin D3) 25 Mcg Tablet) 50 mcg PO DAILY [facility] Last Admin: 03/15/25 08:08 Dose: Not Given Documented By: BLANCHE Non-Admin Reason: Patient Refused Labs 03/15/25 07:12 03/15/25 07:12 Labs: Laboratory Results - last 24 hr 03/14/25 03/15/25 03/15/25 18:49 02:11 07:12 MCV 99.1 H 99.6 H MCH 33.8 H 34.2 H MCHC 34.1 34.4 RDW 15.1 15.0 Plt Count 142 L 128 L MPV 10.2 10.7 Immature Gran % (Auto) 0.4 Neut % (Auto) 80.5 H Lymph % (Auto) 6.9 L [place] % (Auto) 10.4 Eos % (Auto) 1.5 Baso % (Auto) 0.3 Lymph # (Auto) 0.5 L [place] # (Auto) 0.7 Eos # (Auto) 0.1 Baso # (Auto) 0.0 Abs Immat Gran (auto) 0.03 Absolute Neuts (auto) 5.5 Absolute Nucleated RBC 0.000 0.000 Nucleated RBC % (auto) 0.0 0.0 Absolute Retic 0.023 L Percent Retic 1.1 Immature Retic Fraction 6.3 Retic Hgb Equivalent 37.6 H Anion Gap 21 H 24 H 24 H Estim Creat Clear Calc 8.9 8.6 Estimated GFR 5 5 Random Glucose 126 H 144 H Lactic Acid 1.3 Calcium 7.5 L 7.5 L Ferritin 2708 H Lactate Dehydrogenase 337 H Lipase 16 ITS Impressions Abdomen/Pelvis CT 03/14/25 07:45 IMPRESSION: Hepatomegaly and multiple hypodense hepatic lesions, metastasis cannot be excluded. Medical renal disease without hydronephrosis. Diverticular disease, colonic. Soft tissue fullness/wall thickening intrathoracic esophagus. Fleischner guidelines were followed. Electronically signed by: Stevie Kim MD 03/15/2025 08:51 AM EDT RP Chest CT 03/14/25 07:45 IMPRESSION: Bilateral pleural effusions, moderate to large on the right and [id number] on the left with questionable superimposed tumor implants. 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 Coronary artery disease and atherosclerosis disease. Fleischner guidelines were followed. 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 9 cm of barretts appearing mucosa noted, with mass like lesion at 41- 38 cm, bx and WATS brushings taken. Stomach: gastritis. Biopsies were obtained. Grade 2 flap valve on retroflexed examination of the cardia. Duodenum: duodenitis, mild, bx taken Terminal Ileum-not intubated Cecum: dieulafoy lesion noted with active oozing and pulsation, this was treated with x 3 clips and then hemospray and appeared to stop. Ascending Colon: diverticulosis, x 2 sessile polyps 6-8 mm noted, not removed Transverse Colon -normal Descending Colon:normal Sigmoid Colon: moderate diverticulosis Rectum: Retroflexion with small internal hemorrhoids, grade I Anorectum - normal - resumed Eliquis chronic anemia of ESRD with acute GI blood loss - transfused 2u pRBCs 03/12, H+H stable [was 7.6 on admission, not 6.3 as in prior progress note and HPI] ESRD - HD TuThSa hyperK - resolved p Loklema, continue on non-HD days AF - resumed Eliquis HTN - holding losartan and torsemide; hypotensive hypothyroidism - continue LT4 mood disorder - sertraline VTE ppx - Eliquis dispo - eventual home In my clinical judgment, the patient requires continued inpatient hospitalization for the following reasons: anemia, workup of metastases Total time managing care of this patient today: 50 minutes. Quality Stroke Does the patient have a stroke diagnosis?: No VTE Prior VTE?: No VTE Risk Level:: Medical - moderate - high VTE Device Contraindication: N/A - Device Ordered VTE Drug Contraindication: Treatment Not Indicated
--- NOTE | 2025-03-15 16:33 | P.PNNP_ITS ---
Subjective Subjective Date of Service: 03/15/25 Interval history: worsening shortness of breath and also became hypotensive overnight CT suggestive of metastatic CA- s/p egd Physical Exam 2 Exam: Exam: cvs: S1S2 RS; CTA ABD; SOFT Vital Signs: Vital Signs: Last Vital Signs Temp 99.2 F 03/15/25 15:45 Pulse 98 03/15/25 15:45 Resp 19 03/15/25 15:45 BP 93/51 L 03/15/25 15:56 Pulse Ox 96 03/15/25 15:45 O2 Del Method Room Air 03/15/25 15:45 O2 Flow Rate 4 03/15/25 11:53 BMI result Body Mass Index 30.5 Objective Data Labs 03/15/25 07:12 03/15/25 07:12 Labs: Laboratory Results - last 24 hr 03/14/25 03/15/25 03/15/25 18:49 02:11 07:12 WBC 6.9 5.6 RBC 2.22 L 2.25 L Hgb 7.5 L 7.7 L Hct 22.0 L 22.4 L MCV 99.1 H 99.6 H MCH 33.8 H 34.2 H MCHC 34.1 34.4 RDW 15.1 15.0 Plt Count 142 L 128 L MPV 10.2 10.7 Immature Gran % (Auto) 0.4 Neut % (Auto) 80.5 H Lymph % (Auto) 6.9 L [place] % (Auto) 10.4 Eos % (Auto) 1.5 Baso % (Auto) 0.3 Lymph # (Auto) 0.5 L [place] # (Auto) 0.7 Eos # (Auto) 0.1 Baso # (Auto) 0.0 Abs Immat Gran (auto) 0.03 Absolute Neuts (auto) 5.5 Absolute Nucleated RBC 0.000 0.000 Nucleated RBC % (auto) 0.0 0.0 Absolute Retic 0.023 L Percent Retic 1.1 Immature Retic Fraction 6.3 Retic Hgb Equivalent 37.6 H Sodium 135 136 135 Potassium 4.2 4.5 4.8 Chloride 92 L 91 L 92 L Carbon Dioxide 26 26 24 Anion Gap 21 H 24 H 24 H BUN 63 H 65 H Creatinine 9.67 H* 9.96 H* Estim Creat Clear Calc 8.9 8.6 Estimated GFR 5 5 Random Glucose 126 H 144 H Lactic Acid 1.3 Calcium 7.5 L 7.5 L Ferritin 2708 H Lactate Dehydrogenase 337 H Lipase 16 Procedures Date of Service Date of Service: 03/15/25 Assessment & Plan Assessment and plan (1) ESRD (end stage renal disease): Status: Acute Assessment and Plan: 69-year-old male with a past of HTN HLD, ESRD on, CHF, H/O nephrotic syndrome diabetes, history of small-bowel obstruction, anemia, hypothyroidism, AFib on Eliquis presented to the hospital withof bright red blood per rectum. BRBPR: Patient's hemoglobin on presentation is 6.3. s/p xfsuion and Hb bbeing monitored NPO GI consult IV PPI ESRD: [facility] on non-HD days to control AFib: usu maintained on Eliquis --now on hold Hypertension: BP now on hold Hypothyroidism: Continue levothyroxine REC: s/p HD today n 1 K bath and track K; xfuse to keep Hb > 7.0; GI eval; consider DDAVP if cont active bleeding extra 2 hr UF tomorrow( wednesday ) due to volume overload malignancy work up - s/p egd, pending diagnostic thora tomorrow Time Spent With Patient Time: Total time managing care of this patient today ____ minutes. Progress Note: Quality Stroke Does the patient have a stroke diagnosis?: No
--- NOTE | 2025-03-15 16:39 | P.PNGI_ITS ---
Subjective Subjective Date of Service: 03/15/25 Interval History: hgb stable just feels tired with general malaise CT scan with possible liver mets, mediastinal LN and lung carcinomatosis Critical Care Time (minutes): 0 Physical Exam 2 Exam: Exam: EXAM: GENERAL: The patient is fatigued VITAL SIGNS:see workflow HEENT: Nonicteric sclerae, PERRLA, EOMI. Oropharynx clear. Moist mucous membranes. Conjunctivae appear well perfused. No thyroid mass. CHEST: Chest wall is nontender. HEART: Regular rate and rhythm without murmurs. LUNGS: Clear to auscultation bilaterally with reduced a/e at bases ABDOMEN: Soft, positive bowel sounds, nontender, no organomegaly.no flank tenderness SKIN: No rash, no excessive bruising, petechiae, or purpura. NEUROLOGIC: Cranial nerves II-XII intact without motor/sensory deficit. Psych: normal affect Vital Signs: Vital Signs: Last Vital Signs Temp 99.2 F 03/15/25 15:45 Pulse 98 03/15/25 15:45 Resp 19 03/15/25 15:45 BP 93/51 L 03/15/25 15:56 Pulse Ox 96 03/15/25 15:45 O2 Del Method Room Air 03/15/25 15:45 O2 Flow Rate 4 03/15/25 11:53 BMI result Body Mass Index 30.5 Objective Data Labs 03/15/25 07:12 03/15/25 07:12 Labs: Laboratory Results - last 24 hr 03/14/25 03/15/25 03/15/25 18:49 02:11 07:12 WBC 6.9 5.6 RBC 2.22 L 2.25 L Hgb 7.5 L 7.7 L Hct 22.0 L 22.4 L MCV 99.1 H 99.6 H MCH 33.8 H 34.2 H MCHC 34.1 34.4 RDW 15.1 15.0 Plt Count 142 L 128 L MPV 10.2 10.7 Immature Gran % (Auto) 0.4 Neut % (Auto) 80.5 H Lymph % (Auto) 6.9 L [place] % (Auto) 10.4 Eos % (Auto) 1.5 Baso % (Auto) 0.3 Lymph # (Auto) 0.5 L [place] # (Auto) 0.7 Eos # (Auto) 0.1 Baso # (Auto) 0.0 Abs Immat Gran (auto) 0.03 Absolute Neuts (auto) 5.5 Absolute Nucleated RBC 0.000 0.000 Nucleated RBC % (auto) 0.0 0.0 Absolute Retic 0.023 L Percent Retic 1.1 Immature Retic Fraction 6.3 Retic Hgb Equivalent 37.6 H Sodium 135 136 135 Potassium 4.2 4.5 4.8 Chloride 92 L 91 L 92 L Carbon Dioxide 26 26 24 Anion Gap 21 H 24 H 24 H BUN 63 H 65 H Creatinine 9.67 H* 9.96 H* Estim Creat Clear Calc 8.9 8.6 Estimated GFR 5 5 Random Glucose 126 H 144 H Lactic Acid 1.3 Calcium 7.5 L 7.5 L Ferritin 2708 H Lactate Dehydrogenase 337 H Lipase 16 Procedures Date of Service Date of Service: 03/15/25 Progress Note: A&P Assessment and plan (1) GI bleed: Status: Acute Plan 1/ Acute blood loss anemia from Dieulafoy s/p clipping and hemospray- stable 2/ Esophgeal mass, prob esophageal adenoca on bak[place] of barretts, may have mets already PLAN: 1/ d/w onc once path is back, 2/ can restart anticoagulation depending on plan with onc if no further bx are needed etc Time Spent With Patient Time: Total time managing care of this patient today ____ minutes. Quality Stroke Does the patient have a stroke diagnosis?: No VTE Prior VTE?: No VTE Risk Level:: Medical - moderate - high VTE Device Contraindication: N/A - Device Ordered VTE Drug Contraindication: Treatment Not Indicated
[2025-03-16] VITALS (8 sets, daily range): BP systolic 82–105; BP diastolic 50–58; PULSE 83–97; RESP 16–22; TEMP 36.7–37.4; O2SAT 94–100
[2025-03-16] MEDS: 0.9 % Sodium Chloride Flush 3 ML SYRINGE IVFLUSH ×3 (07:31→21:19)
[2025-03-16 12:52] LABS: Carcinoembryonic Antigen 1.80 ng/mL
--- NOTE | 2025-03-16 12:54 | P.PNIM_ITS ---
Subjective Subjective Date of Service: 03/16/25 Interval History: weak, short of breath on 4L o2 Review of Systems Review of Systems: Yes all other systems are reviewed and are negative Physical Exam 2 Vital Signs: Vital Signs: Last Vital Signs Temp 98.3 F 03/16/25 06:52 Pulse 91 03/16/25 06:52 Resp 18 03/16/25 06:52 BP 97/55 L 03/16/25 07:31 Pulse Ox 95 03/16/25 06:52 O2 Del Method Nasal Cannula 03/16/25 06:52 O2 Flow Rate 4 03/16/25 06:52 BMI result Body Mass Index 30.5 Gen: chronically ill-appearing HEENT: sclera anicteric, moist mucus membranes Neck: supple Lungs: diminished bilaterally Heart: regular rate and rhythm, no murmurs Abd: soft, non-tender, non-distended Ext: no edema Skin: warm/well-perfused Neuro: alert and oriented x3, no focal findings Psych: appropriate affect Objective Data Active Medications Acetaminophen (Acetaminophen 325 Mg Tablet) 650 mg PO Q6H PRN PRN Reason: Pain, Mild 1-3,fever,headache Last Admin: 03/15/25 01:43 Dose: 650 mg Documented By: JOSE Albuterol/Ipratropium (Albuterol/Iprat 2.5/0.5mg 3 Ml Ampul.Neb) 3 ml INHALE RQ4H WHILE AWAKE PRN PRN Reason: Shortness of Breath Apixaban (Apixaban 5 Mg Tablet) 5 mg PO BID [facility] On Hold: 03/15/25 21:00 Calcium Carbonate (Calcium Carbonate 750 Mg Tab.Chew) 750 mg PO Q4H PRN PRN Reason: Heartburn Levofloxacin (Levofloxacin 500 Mg Tablet) 500 mg PO Q48H [facility] Levothyroxine Sodium (Levothyroxine Sodium 75 Mcg Tablet) 75 mcg PO DAILY@0600 [facility] Last Admin: 03/16/25 06:41 Dose: 75 mcg Documented By: MARIAMA Magnesium Hydroxide (Milk Of Magnesia 30 Ml Oral.Susp) 30 ml PO DAILY PRN PRN Reason: Constipation Melatonin (Melatonin 3 Mg Tablet) 6 mg PO BEDTIME PRN PRN Reason: Insomnia Last Admin: 03/12/25 23:12 Dose: 6 mg Documented By: DESIRAE Midodrine (Midodrine Hcl 5 Mg Tablet) 5 mg PO TID [facility] Last Admin: 03/16/25 07:31 Dose: 5 mg Documented By: BLANCHE Naloxone HCl (Naloxone Hcl 0.4 Mg/Ml Vial) 0.04 mg IVPUSH Q5M PRN PRN Reason: Excessive sedation or RR < 8 Omeprazole (Omeprazole 40 Mg Capsule.Dr) 40 mg PO DAILY@0630 [facility] Last Admin: 03/16/25 06:41 Dose: 40 mg Documented By: MARIAMA Ondansetron HCl (Ondansetron Hcl 4 Mg/2 Ml Vial) 4 mg IVPUSH Q4H PRN PRN Reason: Nausea and Vomiting Last Admin: 03/15/25 08:02 Dose: 4 mg Documented By: BLANCHE Pantoprazole Sodium (Pantoprazole Sodium 40 Mg/10 Ml Vial) 40 mg IVPUSH DAILY@06 [facility] Last Admin: 03/16/25 06:47 Dose: Not Given Documented By: MARIAMA Non-Admin Reason: oral Omeprazole given Sertraline HCl (Sertraline Hcl 25 Mg Tablet) 25 mg PO DAILY [facility] Last Admin: 03/16/25 07:32 Dose: 25 mg Documented By: BLANCHE Sodium Biphosphate/Sodium Phosphate (Sodium Phosphate,[place]-Dibasic 133 Ml Enema) 133 ml AL ONCE PRN PRN Reason: Consult order Last Admin: 03/14/25 10:11 Dose: 133 ml Documented By: ANA Sodium Chloride (0.9 % Sodium Chloride Flush 3 Ml Syringe) 3 ml IVFLUSH QSHIFT [facility] Last Admin: 03/16/25 07:31 Dose: 3 ml Documented By: BLANCHE Sodium Zirconium Cyclosilicate (Sodium Zirconium Cyclosilicate 5 Gm Powd.Pack) 5 gm PO MOWEFR [facility] Last Admin: 03/14/25 15:51 Dose: 5 gm Documented By: ANA Vitamin D (Cholecalciferol (Vitamin D3) 25 Mcg Tablet) 50 mcg PO DAILY [facility] Last Admin: 03/16/25 07:31 Dose: 50 mcg Documented By: BLANCHE Labs 03/15/25 07:12 03/15/25 07:12 Labs: Laboratory Results - last 24 hr 03/15/25 07:12 Carcinoembryonic Ag 1.80 Assessment and Plan (1) GI bleed: Status: Acute Plan d4, 69yo M with ESRD on HD TuThSa, HTN, HLD, CHF, DM2, anemia, hypothyroidism, AF on apixaban presenting with BRBPR, bleeding likely from Dieulafoy lesion, but also found to have esophageal mass and evidence of metastatic CA multiple metastases: 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 9 cm of barretts appearing mucosa noted, with mass like lesion at 41- 38 cm, bx and WATS brushings taken. Stomach: gastritis. Biopsies were obtained. Grade 2 flap valve on retroflexed examination of the cardia. Duodenum: duodenitis, mild, bx taken Terminal Ileum-not intubated Cecum: dieulafoy lesion noted with active oozing and pulsation, this was treated with x 3 clips and then hemospray and appeared to stop. Ascending Colon: diverticulosis, x 2 sessile polyps 6-8 mm noted, not removed Transverse Colon -normal Descending Colon:normal Sigmoid Colon: moderate diverticulosis Rectum: Retroflexion with small internal hemorrhoids, grade I Anorectum - normal - resumed Eliquis as per Dr Christine chronic anemia of ESRD with acute GI blood loss - transfused 2u pRBCs 03/12, H+H stable [was 7.6 on admission, not 6.3 as in prior progress note and HPI], recheck tomorrow ESRD - HD TuThSa; extra HD today per Nephrology given evidence of volume overload hyperK - resolved p Loklema, continue on non-HD days AF - resumed Eliquis HTN - holding losartan and torsemide; hypotensive and started midodrine hypothyroidism - continue LT4 mood disorder - sertraline VTE ppx - Eliquis dispo - TBD; will need PT eval In my clinical judgment, the patient requires continued inpatient hospitalization for the following reasons: anemia, workup of metastases Total time managing care of this patient today: 50 minutes. Quality Stroke Does the patient have a stroke diagnosis?: No VTE Prior VTE?: No VTE Risk Level:: Medical - moderate - high VTE Device Contraindication: N/A - Device Ordered VTE Drug Contraindication: Treatment Not Indicated
--- NOTE | 2025-03-16 13:26 | MHC.CM.PN ---
EMR reviewed and per MD rounds, pt is not medically cleared for discharge due to management of anemia, and workup of metastases.
--- NOTE | 2025-03-16 15:13 | P.CNHO_ITS ---
Subjective - Subjective Chief complaint: Rectal bleeding Consult date: 03/16/25 Primary Care Provider: Alberto Melo MD Data Warehousing Architect Utilized?: No - Kiswahili Speaking HPI - Consult Narrative Reason for consult: ? Gastric tumor/malignancy Narrative: Milan Angeles is a 69 year old male with past medical history significant for HTN HLD, ESRD on, CHF, nephrotic syndrome diabetes, history of small-bowel obstruction, anemia, hypothyroidism presented to the hospital today with a chief complaint of bright red blood per rectum. Patient reported that the past couple days has been having small amounts of BRBPR. Denies any lightheadedness or dizziness. Denies any nausea or vomiting. Workup in the emergency room revealed a hemoglobin of 7.6 gram/dL. Ferritin was over 2000. LDH was 337 U/L, CEA 1.80. Denies any GI or symptoms. He underwent CT scan of chest/abdomen and pelvis with IV contrast which showed hepato megaly with multiple hypodense hepatic lesions. Soft tissue fullness, wall thickening in the distal intrathoracic esophagus was noted. He underwent EGD/colonoscopy which revealed 2 cm hiatal hernia, Yee's appearing mucosa with masslike lesion at 41-38 cm. Biopsy was performed. Colonoscopy revealed Dieulafoy lesion, diverticulosis, colon polyps and internal hemorrhoids. Review of Systems - Constitutional Reports as per HPI, Denies fatigue, Denies lack of energy, Denies malaise, Denies night sweats, Denies weight loss PMFSH Medical History: Medical History (Last Reviewed 03/14/25 @ 12:05 by Karie Barker MD) Acute hypokalemia Acute on chronic renal failure Adult failure to thrive Anasarca associated with disorder of kidney Anasarca associated with disorder of kidney Anemia Aortic stenosis CHF (congestive heart failure), NYHA class I CKD (chronic kidney disease) stage 3, GFR 30-59 ml/min Congestive heart failure Congestive heart failure Diabetes 1.5, managed as type 2 Diverticulosis Hiatal hernia History of small bowel obstruction Hyperkalemia Hyperlipidemia Hypertension 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 Surgical History: Surgical History (Last Reviewed 03/14/25 @ 12:05 by Karie Barker MD) H/O aortic valve replacement Hx of colonoscopy Social History: Social History (Last Reviewed 03/14/25 @ 12:05 by Karie Barker MD) Living Situation History: Household Members: Other Housing: Assisted Living Facility Do you presently have visiting nurse or other home services: Yes Alcohol History: Unable to assess alcohol history related to: Unknown Tobacco History: Patient Tobacco Use Status: Former Tobacco user Tobacco use type: Cigarette Years Smoked: 30 e-Cigarette/Vaping Use: Never Used Second Hand Smoke Exposure: No Advance Directives: Advance Directives Date on File: 07/30/23 Occupation Assessmet: service: No Current occupational status: unemployed Current occupational status: disabled Home Medications and Allergies Current Medications: Current Medications Acetaminophen (Acetaminophen 325 Mg Tablet) 650 mg PO Q6H PRN PRN Reason: Pain, Mild 1-3,fever,headache Last Admin: 03/15/25 01:43 Dose: 650 mg Albuterol/Ipratropium (Albuterol/Iprat 2.5/0.5mg 3 Ml Ampul.Neb) 3 ml INHALE RQ4H WHILE AWAKE PRN PRN Reason: Shortness of Breath Apixaban (Apixaban 5 Mg Tablet) 5 mg PO BID [facility] On Hold: 03/15/25 21:00 Calcium Carbonate (Calcium Carbonate 750 Mg Tab.Chew) 750 mg PO Q4H PRN PRN Reason: Heartburn Levofloxacin (Levofloxacin 500 Mg Tablet) 500 mg PO Q48H [facility] Levothyroxine Sodium (Levothyroxine Sodium 75 Mcg Tablet) 75 mcg PO DAILY@0600 [facility] Last Admin: 03/16/25 06:41 Dose: 75 mcg Magnesium Hydroxide (Milk Of Magnesia 30 Ml Oral.Susp) 30 ml PO DAILY PRN PRN Reason: Constipation Melatonin (Melatonin 3 Mg Tablet) 6 mg PO BEDTIME PRN PRN Reason: Insomnia Last Admin: 03/12/25 23:12 Dose: 6 mg Midodrine (Midodrine Hcl 10 Mg Tablet) 10 mg PO TID [facility] Naloxone HCl (Naloxone Hcl 0.4 Mg/Ml Vial) 0.04 mg IVPUSH Q5M PRN PRN Reason: Excessive sedation or RR < 8 Omeprazole (Omeprazole 40 Mg Capsule.Dr) 40 mg PO DAILY@0630 [facility] Last Admin: 03/16/25 06:41 Dose: 40 mg Ondansetron HCl (Ondansetron Hcl 4 Mg/2 Ml Vial) 4 mg IVPUSH Q4H PRN PRN Reason: Nausea and Vomiting Last Admin: 03/15/25 08:02 Dose: 4 mg Pantoprazole Sodium (Pantoprazole Sodium 40 Mg/10 Ml Vial) 40 mg IVPUSH DAILY@0630 [facility] Last Admin: 03/16/25 06:47 Dose: Not Given Sertraline HCl (Sertraline Hcl 25 Mg Tablet) 25 mg PO DAILY [facility] Last Admin: 03/16/25 07:32 Dose: 25 mg Sodium Biphosphate/Sodium Phosphate (Sodium Phosphate,[place]-Dibasic 133 Ml Enema) 133 ml [place] ONCE PRN PRN Reason: Consult order Last Admin: 03/14/25 10:11 Dose: 133 ml Sodium Chloride (0.9 % Sodium Chloride Flush 3 Ml Syringe) [facility] Last Admin: 03/16/25 07:31 Dose: 3 ml Sodium Zirconium Cyclosilicate (Sodium Zirconium Cyclosilicate 5 Gm Powd.Pack) 5 gm [facility] Last Admin: 03/14/25 15:51 Dose: 5 gm Vitamin D (Cholecalciferol (Vitamin D3) 25 Mcg Tablet) 50 mcg PO DAILY [facility] Last Admin: 03/16/25 07:31 Dose: 50 mcg Home Medications ?Medication ?Instructions ?Recorded ?Confirmed ?Type levothyroxine 75 mcg tablet 75 mcg PO DAILY@0600 06/27/20 03/12/25 H istory atorvastatin 40 mg tablet 40 mg PO BEDTIME 02/10/22 03/12/25 Histo ry sertraline 25 mg tablet 1 tab PO DAILY 10/03/22 03/12/25 History cholecalciferol (vitamin D3) 25 50 mcg PO DAILY 01/03/25 03/12/25 Histor y mcg (1,000 unit) tablet omeprazole 40 mg capsule,delayed 40 mg PO DAILY@0630 01/03/25 03/12/25 Hi story release apixaban 5 mg tablet (Eliquis) 5 mg PO BID 02/20/25 03/12/25 History sodium zirconium cyclosilicate 5 5 g PO MOWEFR 03/12/25 03/13/25 History gram oral powder packet (Lokelma) Allergies Allergy/AdvReac Type Severity Reaction Status Date / Time Penicillins Allergy Unknown UNKWN Verified 03/12/25 16:51 Physical Exam Vital signs: Vital Signs Temp 98.3 F 03/16/25 06:52 Pulse 91 03/16/25 06:52 Resp 18 03/16/25 06:52 BP 97/55 L 03/16/25 07:31 Pulse Ox 95 03/16/25 06:52 O2 Del Method Nasal Cannula 03/16/25 06:52 O2 Flow Rate 4 03/16/25 06:52 Intake & Output 03/15/25 03/16/25 03/16/25 18:59 06:59 18:59 Intake Total 1401.667 / 1461.667 60 / 1461.667 240 / 240 Balance 1401.667 / 1461.667 60 / 1461.667 240 / 240 Intake: Intake, Oral Amount 360 / 420 60 / 420 240 / 240 Intake, IV Amount 1041.667 / 1041.667 Lactated Ringers 500 ml @ 999 500 / 500 mls/hr IV .Q31M [facility] Rx#: [id number] levoFLOXacin/D5W 750 mg In 150 150 / 150 ml @ 100 mls/hr IV ONCE ONE Rx# :[id number] Lactated Ringers 1,000 ml @ 100 391.667 / 391.667 mls/hr IVCONT .Q10H [facility] Rx#: [id number] Other: NPO pt had ice chips only Last Bowel Movement 03/14/25 03/14/25 03/14/25 Weight 102.1 kg - Constitutional Present: no acute distress - Routine HEENT Exam Head: Present: normal inspection Eye: Present: EOMI, PERRL - Routine Neck Exam Absent: lymphadenopathy - Routine Respiratory Exam Present: decreased breath sounds. Absent: accessory muscle use - Routine Cardiovascular Exam Cardiovascular: Present: S1, S2 - Routine Abdominal Exam Present: organomegaly, soft - Routine Extremities Exam Present: normal inspection Hem/Onc Consult Result - Labs CBC & Chem 7: 03/18/25 07:00 03/18/25 07:00 Assessment and Plan Patient Active problem list reviewed?: Yes (1) Anemia Status: Acute Assessment and plan: 1. This is a 69-year-old male with end-stage renal disease, on hemodialysis who is presenting with acute on chronic anemia. He complained of hematochezia. Admission hemoglobin was 7.6 gram/dL, in November 2024 his hemoglobin was 9.9 gram/dL. He underwent CT scan of chest/abdomen and pelvis with IV contrast which showed hepato megaly with multiple hypodense hepatic lesions. Soft tissue fullness, wall thickening in the distal intrathoracic esophagus was noted. He underwent EGD/colonoscopy which revealed 2 cm hiatal hernia, Yee's appearing mucosa with masslike lesion at 41-38 cm. Biopsy was performed. Colonoscopy revealed Dieulafoy lesion, diverticulosis, colon polyps and internal hemorrhoids. Await results of biopsy. Anemia appears to be multi factorial. Underlying chronic kidney disease as well as recent hematochezia. Depending on biopsy results, further recommendations to be made. Thank you for the consultation. - Time Spent With Patient Time Spent with Patient (in minutes): 20
--- NOTE | 2025-03-16 15:45 | P.PNNP_ITS ---
Subjective Subjective Date of Service: 03/15/25 Interval history: Seen and examined, events noted Physical Exam 2 Vital Signs: Vital Signs: Last Vital Signs Temp 98.4 F 03/16/25 15:13 Pulse 87 03/16/25 15:13 Resp 18 03/16/25 15:13 BP 82/58 L 03/16/25 15:25 Pulse Ox 100 03/16/25 15:13 O2 Del Method Nasal Cannula 03/16/25 15:13 O2 Flow Rate 4 03/16/25 15:13 BMI result Body Mass Index 30.5 Const: Limitations: No language barrier Objective Data Labs 03/15/25 07:12 03/15/25 07:12 Labs: Laboratory Results - last 24 hr 03/15/25 07:12 Carcinoembryonic Ag 1.80 Procedures Date of Service Date of Service: 03/16/25 Assessment & Plan Assessment and plan (1) ESRD (end stage renal disease): Status: Acute Assessment and Plan: 69-year-old male with a past of HTN HLD, ESRD on, CHF, H/O nephrotic syndrome diabetes, history of small-bowel obstruction, anemia, hypothyroidism, AFib on Eliquis presented to the hospital withof bright red blood per rectum. BRBPR: Patient's hemoglobin on presentation is 6.3. s/p xfsuion and Hb bbeing monitored NPO GI consult IV PPI ESRD: usu TTS [facility] HD at [facility] HyperK: usu on [facility] on non-HD days to control AFib: usu maintained on Eliquis --now on hold Hypertension: BP now on hold Hypothyroidism: Continue levothyroxine REC: cont HD TTS; xfuse to keep Hb > 7.0; GI eval; consider DDAVP if cont active bleeding will follow w team Time Spent With Patient Time: Total time managing care of this patient today ____ minutes. Progress Note: Quality Stroke Does the patient have a stroke diagnosis?: No
[2025-03-17] VITALS (8 sets, daily range): BP systolic 78–144; BP diastolic 42–74; PULSE 64–83; RESP 16–20; TEMP 36.7–37.9; O2SAT 91–98
[2025-03-17] MEDS: 0.9 % Sodium Chloride Flush 3 ML SYRINGE IVFLUSH ×3 (07:37→20:24)
[2025-03-17 08:20] LABS: Hematocrit 21.7 % (42.0-52.0); Hemoglobin 7.4 g/dl (14.0-18.0); Mean Corpuscular HGB Conc 34.1 g/dl (31.0-36.0); Mean Corpuscular Hemoglobin 34.3 pg (27.0-33.0); Mean Corpuscular Volume 100.5 fL (80.0-98.0); NRBC Abs Auto 0.000 X10*3/uL (0.0-0.012); NRBC Pct Auto 0.0 /100WBC (0.0-0.2); Platelet Count 178 X10*3/uL (160-400); Red Blood Count 2.16 X10*6/uL (4.60-5.80); White Blood Count 7.7 X10*3/uL (4.8-10.8)
[2025-03-17 08:36] LABS: Anion Gap 22 (12-20); Blood Urea Nitrogen 55 mg/dL (9-16); Calcium 8.0 mg/dL (8.4-10.2); Carbon Dioxide 27 mmol/L (22-29); Chloride 92 mmol/L (96-108); Creatinine Clr Calc Pharmacy 8.2; Estimated Glomerular Filt Rate 5; Potassium 5.1 mmol/L (3.3-5.1); Sodium 136 mmol/L (135-145)
--- NOTE | 2025-03-17 09:27 | HO.PM.IMPN ---
Subjective Subjective Date of Service: 03/17/25 Interval History: weak, short of breath on 4L o2 Review of Systems Review of Systems: Yes all other systems are reviewed and are negative Physical Exam Vital Signs: Vital Signs: Last Vital Signs Temp 98.1 F 03/17/25 07:47 Pulse 78 03/17/25 07:47 Resp 20 03/17/25 07:47 BP 144/74 H 03/17/25 07:47 Pulse Ox 94 03/17/25 07:47 O2 Del Method Nasal Cannula 03/17/25 07:47 O2 Flow Rate 3 03/17/25 07:47 BMI result Body Mass Index 30.5 Const: Limitations: No language barrier Objective Data Active Medications Acetaminophen (Acetaminophen 325 Mg Tablet) 650 mg PO Q6H PRN PRN Reason: Pain, Mild 1-3,fever,headache Last Admin: 03/15/25 01:43 Dose: 650 mg Documented By: JOSE Albuterol/Ipratropium (Albuterol/Iprat 2.5/0.5mg 3 Ml Ampul.Neb) 3 ml INHALE RQ4H WHILE AWAKE PRN PRN Reason: Shortness of Breath Apixaban (Apixaban 5 Mg Tablet) 5 mg PO BID [facility] On Hold: 03/15/25 21:00 Calcium Carbonate (Calcium Carbonate 750 Mg Tab.Chew) 750 mg PO Q4H PRN PRN Reason: Heartburn Levofloxacin (Levofloxacin 500 Mg Tablet) 500 mg PO Q48H [facility] Levothyroxine Sodium (Levothyroxine Sodium 75 Mcg Tablet) 75 mcg PO DAILY@0600 [facility] Last Admin: 03/17/25 06:09 Dose: 75 mcg Documented By: CARLOZ Magnesium Hydroxide (Milk Of Magnesia 30 Ml Oral.Susp) 30 ml PO DAILY PRN PRN Reason: Constipation Melatonin (Melatonin 3 Mg Tablet) 6 mg PO BEDTIME PRN PRN Reason: Insomnia Last Admin: 03/12/25 23:12 Dose: 6 mg Documented By: DESIRAE Midodrine (Midodrine Hcl 10 Mg Tablet) 10 mg PO TID [facility] Last Admin: 03/16/25 21:17 Dose: 10 mg Documented By: CARLOZ Naloxone HCl (Naloxone Hcl 0.4 Mg/Ml Vial) 0.04 mg IVPUSH Q5M PRN PRN Reason: Excessive sedation or RR < 8 Omeprazole (Omeprazole 40 Mg Capsule.Dr) 40 mg PO DAILY@0630 [facility] Last Admin: 03/17/25 06:09 Dose: 40 mg Documented By: CARLOZ Ondansetron HCl (Ondansetron Hcl 4 Mg/2 Ml Vial) 4 mg IVPUSH Q4H PRN PRN Reason: Nausea and Vomiting Last Admin: 03/15/25 08:02 Dose: 4 mg Documented By: BLANCHE Sertraline HCl (Sertraline Hcl 25 Mg Tablet) 25 mg PO DAILY [facility] Last Admin: 03/16/25 07:32 Dose: 25 mg Documented By: BLANCHE Sodium Biphosphate/Sodium Phosphate (Sodium Phosphate,[place]-Dibasic 133 Ml Enema) 133 ml [place] ONCE PRN PRN Reason: Consult order Last Admin: 03/14/25 10:11 Dose: 133 ml Documented By: ANA Sodium Chloride (0.9 % Sodium Chloride Flush 3 Ml Syringe) 3 ml IVFLUSH QSHIFT [facility] Last Admin: 03/16/25 21:19 Dose: 3 ml Documented By: CARLOZ Sodium Zirconium Cyclosilicate (Sodium Zirconium Cyclosilicate 5 Gm Powd.Pack) 5 gm PO MOWEFR [facility] Last Admin: 03/16/25 16:24 Dose: 5 gm Documented By: BLANCHE Vitamin D (Cholecalciferol (Vitamin D3) 25 Mcg Tablet) 50 mcg PO DAILY [facility] Last Admin: 03/16/25 07:31 Dose: 50 mcg Documented By: BLANCHE Labs 03/17/25 07:06 03/17/25 07:06 Labs: Laboratory Results - last 24 hr 03/15/25 03/17/25 07:12 07:06 MCV 100.5 H MCH 34.3 H MCHC 34.1 RDW 14.6 Plt Count 178 D MPV 10.9 Absolute Nucleated RBC 0.000 Nucleated RBC % (auto) 0.0 Anion Gap 22 H Estim Creat Clear Calc 8.2 Estimated GFR 5 Random Glucose 102 Calcium 8.0 L D Carcinoembryonic Ag 1.80 Hold Yellow Top See Note Assessment and Plan (1) GI bleed: Status: Acute Plan d5, 69yo M with ESRD on HD TuThSa, HTN, HLD, CHF, DM2, anemia, hypothyroidism, AF on apixaban presenting with BRBPR, bleeding likely from Dieulafoy lesion, but also found to have esophageal mass and 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 9 cm of barretts appearing mucosa noted, with mass like lesion at 41- 38 cm, bx and WATS brushings taken. Stomach: gastritis. Biopsies were obtained. Grade 2 flap valve on retroflexed examination of the cardia. Duodenum: duodenitis, mild, bx taken Terminal Ileum-not intubated Cecum: dieulafoy lesion noted with active oozing and pulsation, this was treated with x 3 clips and then hemospray and appeared to stop. Ascending Colon: diverticulosis, x 2 sessile polyps 6-8 mm noted, not removed Transverse Colon -normal Descending Colon:normal Sigmoid Colon: moderate diverticulosis Rectum: Retroflexion with small internal hemorrhoids, grade I Anorectum - normal - ok to resume eliquis from gi standpoint, will hold for possible biopsy chronic anemia of ESRD with acute GI blood loss - transfused 2u pRBCs 03/12, H+H stable 7 to 8 ESRD - HD TuThSa; extra HD today per Nephrology given evidence of volume overload hyperK - resolved p Loklema, continue on non-HD days AF holding eliquis for possible biopsy HTN - holding losartan and torsemide; hypotensive and started midodrine hypothyroidism - continue LT4 mood disorder - sertraline VTE ppx - hep sq dispo - TBD; will need PT eval In my clinical judgment, the patient requires continued inpatient hospitalization for the following reasons: anemia, workup of metastases Total time managing care of this patient today: 50 minutes. Quality Stroke Does the patient have a stroke diagnosis?: No VTE Prior VTE?: No VTE Risk Level:: Medical - moderate - high VTE Device Contraindication: N/A - Device Ordered VTE Drug Contraindication: Treatment Not Indicated
--- NOTE | 2025-03-17 11:00 | P.PNHO-ONC_ITS ---
Medical Summary - Medical Summary Date of Service: 03/17/25 Chief complaint: carcinamatosis Primary Care Provider: Alberto Melo MD Family Practice Physician Assistant Utilized?: No - Czech Speaking Interval History Interval history: Milan Angeles is a 69 year old male on dialysis with possible disseminated carcinomatosis seen on CT scanning. A biopsy of the esophageal mass and stomach shows dysplasia but not cancer, Review of Systems - Constitutional Reports lack of energy - ENT Reports other - Cardiovascular Reports shortness of breath - Respiratory Reports dyspnea on exertion - Gastrointestinal Reports bloating - Genitourinary Genitourinary: Reports urinary frequency - Musculoskeletal Reports muscle weakness PMFSH Medical History: Medical History (Last Reviewed 03/14/25 @ 12:05 by Karie Barker MD) Acute hypokalemia Acute on chronic renal failure Adult failure to thrive Anasarca associated with disorder of kidney Anasarca associated with disorder of kidney Anemia Aortic stenosis CHF (congestive heart failure), NYHA class I CKD (chronic kidney disease) stage 3, GFR 30-59 ml/min Congestive heart failure Congestive heart failure Diabetes 1.5, managed as type 2 Diverticulosis Hiatal hernia History of small bowel obstruction Hyperkalemia Hyperlipidemia Hypertension 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 Surgical History: Surgical History (Last Reviewed 03/14/25 @ 12:05 by Karie Barker MD) H/O aortic valve replacement Hx of colonoscopy Social History: Social History (Last Reviewed 03/14/25 @ 12:05 by Karie Barker MD) Living Situation History: Household Members: Other Housing: Assisted Living Facility Do you presently have visiting nurse or other home services: Yes Alcohol History: Unable to assess alcohol history related to: Unknown Alcohol History Details: 1. How often do you have a drink containing alcohol?: a. Never AUDIT-C Alcohol total score: 0 Currently Displaying Signs/Symptoms of Alcohol Withdrawal: No Tobacco History: Patient Tobacco Use Status: Former Tobacco user Tobacco use type: Cigarette Years Smoked: 30 Smoked in Last 30 Days: No e-Cigarette/Vaping Use: Never Used Second Hand Smoke Exposure: No Substance Use History: Use of substances other than those prescribed or required for medical reasons : No Currently Displaying Signs/Symptoms of Drug Intoxication Withdrawal: No Domestic Abuse History: Have you been hit, kicked, punched, or otherwise hurt by someone within the past year? If so, by whom?: No Do you feel safe in your current relationship?: No Current Relationship Is there a partner from a previous relationship who is making you feel unsafe now?: No Are you made to feel afraid or neglected: No Advance Directives: Advance Directives: No Advance Directives Information Provided: No Advance Directives Date on File: 07/30/23 Homicidal Assessment: Do you have a plan to hurt others: No Plan Nutrition Assessment: Recently lost weight without trying: No Eating poorly because of decreased appetite: No Nutrition Risks: No Nutritional Risk Poor oral hygiene: No Occupation Assessmet: service: No Current occupational status: unemployed Current occupational status: disabled Home Medications and Allergies Current Medications: Current Medications Acetaminophen (Acetaminophen 325 Mg Tablet) 650 mg PO Q6H PRN PRN Reason: Pain, Mild 1-3,fever,headache Last Admin: 03/15/25 01:43 Dose: 650 mg Albuterol/Ipratropium (Albuterol/Iprat 2.5/0.5mg 3 Ml Ampul.Neb) 3 ml INHALE RQ4H WHILE AWAKE PRN PRN Reason: Shortness of Breath Apixaban (Apixaban 5 Mg Tablet) 5 mg PO BID [facility] On Hold: 03/15/25 21:00 Calcium Carbonate (Calcium Carbonate 750 Mg Tab.Chew) 750 mg PO Q4H PRN PRN Reason: Heartburn Heparin Sodium (Porcine) (Heparin Sodium,Porcine 5,000 Unit/Ml Vial) 5,000 unit SUBCUT Q12H [facility] Levofloxacin (Levofloxacin 500 Mg Tablet) 500 mg PO Q48H [facility] Levothyroxine Sodium (Levothyroxine Sodium 75 Mcg Tablet) 75 mcg PO DAILY@0600 [facility] Last Admin: 03/17/25 06:09 Dose: 75 mcg Magnesium Hydroxide (Milk Of Magnesia 30 Ml Oral.Susp) 30 ml PO DAILY PRN PRN Reason: Constipation Melatonin (Melatonin 3 Mg Tablet) 6 mg PO BEDTIME PRN PRN Reason: Insomnia Last Admin: 03/12/25 23:12 Dose: 6 mg Midodrine (Midodrine Hcl 10 Mg Tablet) 10 mg PO TID [facility] Last Admin: 03/16/25 21:17 Dose: 10 mg Naloxone HCl (Naloxone Hcl 0.4 Mg/Ml Vial) 0.04 mg IVPUSH Q5M PRN PRN Reason: Excessive sedation or RR < 8 Omeprazole (Omeprazole 40 Mg Capsule.Dr) 40 mg PO DAILY@629 [facility] Last Admin: 03/17/25 06:09 Dose: 40 mg Ondansetron HCl (Ondansetron Hcl 4 Mg/2 Ml Vial) 4 mg IVPUSH Q4H PRN PRN Reason: Nausea and Vomiting Last Admin: 03/15/25 08:02 Dose: 4 mg Sertraline HCl (Sertraline Hcl 25 Mg Tablet) 25 mg PO DAILY [facility] Last Admin: 03/16/25 07:32 Dose: 25 mg Sodium Biphosphate/Sodium Phosphate (Sodium Phosphate,Dickens-Dibasic 133 Ml Enema) 133 ml [place] ONCE PRN PRN Reason: Consult order Last Admin: 03/14/25 10:11 Dose: 133 ml Sodium Chloride (0.9 % Sodium Chloride Flush 3 Ml Syringe) 3 ml IVFLUSH QSHIFT [facility] Last Admin: 03/16/25 21:19 Dose: 3 ml Sodium Zirconium Cyclosilicate (Sodium Zirconium Cyclosilicate 5 Gm Powd.Pack) 5 gm PO MOWEFR [facility] Last Admin: 03/16/25 16:24 Dose: 5 gm Vitamin D (Cholecalciferol (Vitamin D3) 25 Mcg Tablet) 50 mcg PO DAILY [facility] Last Admin: 03/16/25 07:31 Dose: 50 mcg Home Medications ?Medication ?Instructions ?Recorded ?Confirmed ?Type levothyroxine 75 mcg tablet 75 mcg PO DAILY@0600 06/27/20 03/12/25 H istory atorvastatin 40 mg tablet 40 mg PO BEDTIME 02/10/22 03/12/25 Histo ry sertraline 25 mg tablet 1 tab PO DAILY 10/03/22 03/12/25 History torsemide 20 mg tablet 40 mg PO BID@0900,1200 02/16/23 03/12/25 History cholecalciferol (vitamin D3) 25 50 mcg PO DAILY 01/03/25 03/12/25 Histor y mcg (1,000 unit) tablet omeprazole 40 mg capsule,delayed 40 mg PO DAILY@0630 01/03/25 03/12/25 Hi story release apixaban 5 mg tablet (Eliquis) 5 mg PO BID 02/20/25 03/12/25 History sodium zirconium cyclosilicate 5 5 g PO MOWEFR 03/12/25 03/13/25 History gram oral powder packet (Lokelma) Allergies Allergy/AdvReac Type Severity Reaction Status Date / Time Penicillins Allergy Unknown UNKWN Verified 03/12/25 16:51 Exam Vital signs: Vital Signs Temp 98.1 F 03/17/25 07:47 Pulse 78 03/17/25 07:47 Resp 20 03/17/25 07:47 BP 144/74 H 03/17/25 07:47 Pulse Ox 94 03/17/25 07:47 O2 Del Method Nasal Cannula 03/17/25 07:47 O2 Flow Rate 3 03/17/25 07:47 Intake & Output 03/16/25 03/17/25 03/17/25 18:59 06:59 18:59 Intake Total 240 / 1040 800 / 1040 Balance 240 / 1040 800 / 1040 Intake: Intake, Oral Amount 240 / 1040 800 / 1040 Other: Number of Incontinent Voids 1 Urine Color Yellow Last Bowel Movement 03/14/25 03/14/25 03/14/25 Weight 102.1 kg BMI result Body Mass Index 30.5 - Constitutional Present: no acute distress (seen during hemodialysis) - Routine HEENT Exam Head: Present: normal inspection ENT: Present: normal exam - Routine Neck Exam Present: full ROM - Routine Respiratory Exam Present: decreased breath sounds. Absent: accessory muscle use - Routine Cardiovascular Exam Cardiovascular: Present: RRR, S1, S2 - Routine Abdominal Exam Present: diminished bowel sounds, organomegaly, soft - Routine Extremities Exam Present: normal inspection, nontender Data - Labs CBC & Chem 7: 03/17/25 07:06 03/17/25 07:06 Labs: Laboratory Last Values WBC 7.7 X10*3/uL (4.8-10.8) 03/17/25 07:06 RBC 2.16 X10*6/uL (4.60-5.80) L 03/17/25 07:06 Hgb 7.4 g/dl (14.0-18.0) L 03/17/25 07:06 Hct 21.7 % (42.0-52.0) L 03/17/25 07:06 MCV 100.5 fL (80.0-98.0) H 03/17/25 07:06 MCH 34.3 pg (27.0-33.0) H 03/17/25 07:06 MCHC 34.1 g/dl (31.0-36.0) 03/17/25 07:06 RDW 14.6 % (11.0-16.0) 03/17/25 07:06 Plt Count 178 X10*3/uL (160-400) D 03/17/25 07:06 MPV 10.9 fL (9.4-12.4) 03/17/25 07:06 Immature Gran % (Auto) 0.4 % (0.0-0.4) 03/15/25 02:11 Neut % (Auto) 80.5 % (45-73) H 03/15/25 02:11 Lymph % (Auto) 6.9 % (20-40) L 03/15/25 02:11 Dickens % (Auto) 10.4 % (2-11) 03/15/25 02:11 Eos % (Auto) 1.5 % (0-4) 03/15/25 02:11 Baso % (Auto) 0.3 % (0-2) 03/15/25 02:11 Lymph # (Auto) 0.5 X10*3/uL (1.2-4.9) L 03/15/25 02:11 Dickens # (Auto) 0.7 X10*3/uL (0.1-1.2) 03/15/25 02:11 Eos # (Auto) 0.1 X10*3/uL (0.0-0.4) 03/15/25 02:11 Baso # (Auto) 0.0 X10*3/uL (0.0-0.2) 03/15/25 02:11 Abs Immat Gran (auto) 0.03 X10*3/uL (0.00-0.03) 03/15/25 02:11 Absolute Neuts (auto) 5.5 x10*3/uL (2.0-8.3) 03/15/25 02:11 Absolute Nucleated RBC 0.000 X10*3/uL (0.0-0.012) 03/17/25 07:06 Nucleated RBC % (auto) 0.0 /100WBC (0.0-0.2) 03/17/25 07:06 Smear Tech's Comments VERIFIED 03/13/25 06:39 Absolute Retic 0.023 X10*6/uL (0.026-0.095) L 03/15/25 02:11 Percent Retic 1.1 % (0.5-1.8) 03/15/25 02:11 Immature Retic Fraction 6.3 % (2.3-13.4) 03/15/25 02:11 Retic Hgb Equivalent 37.6 pg (30.0-35.0) H 03/15/25 02:11 Sodium 136 mmol/L (135-145) 03/17/25 07:06 Potassium 5.1 mmol/L (3.3-5.1) 03/17/25 07:06 Chloride 92 mmol/L (96-108) L 03/17/25 07:06 Carbon Dioxide 27 mmol/L (22-29) 03/17/25 07:06 Anion Gap 22 (12-20) H 03/17/25 07:06 BUN 55 mg/dL (9-16) H 03/17/25 07:06 Creatinine 10.44 mg/dL (0.5-1.4) H* 03/17/25 07:06 Estim Creat Clear Calc 8.2 03/17/25 07:06 Estimated GFR 5 03/17/25 07:06 Random Glucose 102 mg/dL (60-115) 03/17/25 07:06 Lactic Acid 1.3 mmol/L (0.5-2.0) 03/15/25 02:11 Calcium 8.0 mg/dL (8.4-10.2) L D 03/17/25 07:06 Ferritin 2708 ng/mL (20-250) H 03/15/25 02:11 Total Bilirubin 0.6 mg/dL (0.0-1.0) 03/13/25 06:39 Direct Bilirubin 0.2 mg/dL (0.0-0.5) 03/12/25 17:04 AST 44 U/L (5-37) H 03/13/25 06:39 ALT 59 U/L (0-40) H 03/13/25 06:39 Alkaline Phosphatase 68 U/L (39-117) 03/13/25 06:39 Lactate Dehydrogenase 337 U/L (118-273) H 03/15/25 02:11 Total Protein 6.9 g/dL (6.5-8.0) 03/13/25 06:39 Albumin 4.0 g/dL (3.5-5.0) 03/13/25 06:39 Lipase 16 U/L (8-78) 03/15/25 02:11 Carcinoembryonic Ag 1.80 ng/mL 03/15/25 07:12 Hold Yellow Top See Note 03/17/25 07:06 Stool Occult Blood POSITIVE (NEGATIVE) 03/12/25 17:05 Blood Type A Positive 03/12/25 18:15 Antibody Screen NEGATIVE 03/12/25 18:15 Crossmatch See Detail 03/12/25 18:15 - Imaging Radiologist's impression: ITS Impressions Abdomen/Pelvis CT 03/14/25 07:45 IMPRESSION: Hepatomegaly and multiple hypodense hepatic lesions, metastasis cannot be excluded. Medical renal disease without hydronephrosis. Diverticular disease, colonic. Soft tissue fullness/wall thickening intrathoracic esophagus. Fleischner guidelines were followed. Electronically signed by: Stevie Kim MD 03/15/2025 08:51 AM EDT RP Chest CT 03/14/25 07:45 IMPRESSION: Bilateral pleural effusions, moderate to large on the right and [id number] on the left with questionable superimposed tumor implants. 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 Coronary artery disease and atherosclerosis disease. Fleischner guidelines were followed. Electronically signed by: Stevie Kim MD 03/15/2025 08:40 AM EDT RP Chest Ultrasound 03/16/25 13:30 IMPRESSION: Small loculated right pleural effusion. Electronically signed by: Roland Lucas MD 03/16/2025 02:32 PM EDT RP Assessment and Plan Patient Active problem list reviewed?: Yes (1) Carcinomatosis Status: Acute Assessment and plan: This is an admission diagnosis based on admission imaging. Upper GI pathology is negative for cancer but positive foe dysplasia. (2) ESRD on hemodialysis Status: Acute - Time Spent With Patient Time Spent with Patient (in minutes): 15
[2025-03-17 13:39] LABS: Glucose, Whole Blood 110 mg/dL (60-115)
[2025-03-18] VITALS (7 sets, daily range): BP systolic 78–103; BP diastolic 42–49; PULSE 63–70; RESP 14–20; TEMP 36.1–37.2; O2SAT 93–99
[2025-03-18] MEDS: Albumin Human 25 % 50 ML 100 ML IV (03:25)
[2025-03-18] MEDS: 0.9 % Sodium Chloride Flush 3 ML SYRINGE IVFLUSH (07:37)
[2025-03-18 08:07] LABS: Hematocrit 22.5 % (42.0-52.0); Hemoglobin 8.0 g/dl (14.0-18.0); Mean Corpuscular HGB Conc 35.6 g/dl (31.0-36.0); Mean Corpuscular Hemoglobin 35.2 pg (27.0-33.0); Mean Corpuscular Volume 99.1 fL (80.0-98.0); NRBC Abs Auto 0.000 X10*3/uL (0.0-0.012); NRBC Pct Auto 0.0 /100WBC (0.0-0.2); Platelet Count 203 X10*3/uL (160-400); Red Blood Count 2.27 X10*6/uL (4.60-5.80); White Blood Count 7.5 X10*3/uL (4.8-10.8)
[2025-03-18 08:26] LABS: Anion Gap 21 (12-20); Blood Urea Nitrogen 47 mg/dL (9-16); Calcium 8.3 mg/dL (8.4-10.2); Carbon Dioxide 28 mmol/L (22-29); Chloride 93 mmol/L (96-108); Creatinine Clr Calc Pharmacy 11.1; Estimated Glomerular Filt Rate 7; Potassium 4.7 mmol/L (3.3-5.1); Sodium 137 mmol/L (135-145)
--- NOTE | 2025-03-18 08:55 | HO.PM.IMPN ---
Subjective Subjective Date of Service: 03/18/25 Interval History: asymptomatic low bps Physical Exam Vital Signs: Vital Signs: Last Vital Signs Temp 98.5 F 03/18/25 07:22 Pulse 70 03/18/25 07:22 Resp 20 03/18/25 07:22 BP 84/44 L 03/18/25 07:22 Pulse Ox 97 03/18/25 07:22 O2 Del Method Nasal Cannula 03/18/25 07:22 O2 Flow Rate 2 03/18/25 07:22 BMI result Body Mass Index 30.5 Const: Limitations: No language barrier Objective Data Active Medications Acetaminophen (Acetaminophen 325 Mg Tablet) 650 mg PO Q6H PRN PRN Reason: Pain, Mild 1-3,fever,headache Last Admin: 03/15/25 01:43 Dose: 650 mg Documented By: JOSE Albuterol/Ipratropium (Albuterol/Iprat 2.5/0.5mg 3 Ml Ampul.Neb) 3 ml INHALE RQ4H WHILE AWAKE PRN PRN Reason: Shortness of Breath Apixaban (Apixaban 5 Mg Tablet) 5 mg PO BID [facility] On Hold: 03/15/25 21:00 Calcium Carbonate (Calcium Carbonate 750 Mg Tab.Chew) 750 mg PO Q4H PRN PRN Reason: Heartburn Heparin Sodium (Porcine) (Heparin Sodium,Porcine 5,000 Unit/Ml Vial) 5,000 unit SUBCUT Q12H [facility] Last Admin: 03/17/25 20:24 Dose: 5,000 unit Documented By: MARQUITA Levofloxacin (Levofloxacin 500 Mg Tablet) 500 mg PO Q48H [facility] Last Admin: 03/17/25 16:22 Dose: 500 mg Documented By: MEY Levothyroxine Sodium (Levothyroxine Sodium 75 Mcg Tablet) 75 mcg PO DAILY@0600 [facility] Last Admin: 03/18/25 06:03 Dose: 75 mcg Documented By: MARQUITA Magnesium Hydroxide (Milk Of Magnesia 30 Ml Oral.Susp) 30 ml PO DAILY PRN PRN Reason: Constipation Melatonin (Melatonin 3 Mg Tablet) 6 mg PO BEDTIME PRN PRN Reason: Insomnia Last Admin: 03/12/25 23:12 Dose: 6 mg Documented By: DESIRAE Midodrine (Midodrine Hcl 10 Mg Tablet) 10 mg PO TID [facility] Last Admin: 03/18/25 07:36 Dose: 10 mg Documented By: MEY Naloxone HCl (Naloxone Hcl 0.4 Mg/Ml Vial) 0.04 mg IVPUSH Q5M PRN PRN Reason: Excessive sedation or RR < 8 Omeprazole (Omeprazole 40 Mg Capsule.) 40 mg PO DAILY@0630 [facility] Last Admin: 03/18/25 06:03 Dose: 40 mg Documented By: MARQUITA Ondansetron HCl (Ondansetron Hcl 4 Mg/2 Ml Vial) 4 mg IVPUSH Q4H PRN PRN Reason: Nausea and Vomiting Last Admin: 03/17/25 13:29 Dose: 4 mg Documented By: MEY Sertraline HCl (Sertraline Hcl 25 Mg Tablet) 25 mg PO DAILY [facility] Last Admin: 03/18/25 07:36 Dose: 25 mg Documented By: MEY Sodium Biphosphate/Sodium Phosphate (Sodium Phosphate,Storey-Dibasic 133 Ml Enema) 133 ml [place] ONCE PRN PRN Reason: Consult order Last Admin: 03/14/25 10:11 Dose: 133 ml Documented By: ANA Sodium Chloride (0.9 % Sodium Chloride Flush 3 Ml Syringe) 3 ml IVFLUSH QSHIFT [facility] Last Admin: 03/18/25 07:37 Dose: 3 ml Documented By: MEY Sodium Zirconium Cyclosilicate (Sodium Zirconium Cyclosilicate 5 Gm Powd.Pack) 5 gm PO MOWEFR [facility] Last Admin: 03/16/25 16:24 Dose: 5 gm Documented By: BLANCHE Vitamin D (Cholecalciferol (Vitamin D3) 25 Mcg Tablet) 50 mcg PO DAILY [facility] Last Admin: 03/18/25 07:36 Dose: 50 mcg Documented By: MEY Labs 03/18/25 07:00 03/18/25 07:00 Labs: Laboratory Results - last 24 hr 03/17/25 03/18/25 13:29 07:00 MCV 99.1 H MCH 35.2 H MCHC 35.6 RDW 14.5 Plt Count 203 MPV 10.9 Absolute Nucleated RBC 0.000 Nucleated RBC % (auto) 0.0 Anion Gap 21 H Estim Creat Clear Calc 11.1 Estimated GFR 7 POC Glucose 110 Random Glucose 107 Calcium 8.3 L Assessment and Plan (1) GI bleed: Status: Acute Plan d5, 69yo M with ESRD on HD TuThSa, HTN, HLD, CHF, DM2, anemia, hypothyroidism, AF on apixaban presenting with BRBPR, bleeding likely from Dieulafoy lesion, but also found to have esophageal mass and 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 9 cm of barretts appearing mucosa noted, with mass like lesion at 41- 38 cm, bx and WATS brushings taken. Stomach: gastritis. Biopsies were obtained. Grade 2 flap valve on retroflexed examination of the cardia. Duodenum: duodenitis, mild, bx taken Terminal Ileum-not intubated Cecum: dieulafoy lesion noted with active oozing and pulsation, this was treated with x 3 clips and then hemospray and appeared to stop. Ascending Colon: diverticulosis, x 2 sessile polyps 6-8 mm noted, not removed Transverse Colon -normal Descending Colon:normal Sigmoid Colon: moderate diverticulosis Rectum: Retroflexion with small internal hemorrhoids, grade I Anorectum - normal - ok to resume eliquis from gi standpoint, will hold for possible biopsy chronic anemia of ESRD with acute GI blood loss - transfused 2u pRBCs 03/12, H+H stable 7 to 8 ESRD - HD TuThSa; extra HD today per Nephrology given evidence of volume overload hyperK - resolved p Loklema, continue on non-HD days AF holding eliquis for possible biopsy HTN - holding losartan and torsemide; hypotensive and started midodrine hypotension measured in RUE but normal in LE, ?RUE arterial stenosis - check doppler hypothyroidism - continue LT4 mood disorder - sertraline VTE ppx - hep sq dispo - TBD; will need PT eval In my clinical judgment, the patient requires continued inpatient hospitalization for the following reasons: anemia, workup of metastases Total time managing care of this patient today: 50 minutes. Quality Stroke Does the patient have a stroke diagnosis?: No VTE Prior VTE?: No VTE Risk Level:: Medical - moderate - high VTE Device Contraindication: N/A - Device Ordered VTE Drug Contraindication: Treatment Not Indicated
[2025-03-19] VITALS: BP 101/53; PULSE 58; RESP 16; TEMP 36.1; O2SAT 97
[2025-03-19] MEDS: 0.9 % Sodium Chloride Flush 3 ML SYRINGE IVFLUSH ×2 (00:37→07:52)
[2025-03-19 04:00] VITALS: BP 101/48; PULSE 46; RESP 16; TEMP 37; O2SAT 96
[2025-03-19 04:58] VITALS: PULSE 58
[2025-03-19 07:45] VITALS: BP 100/58; PULSE 66; RESP 20; TEMP 36.6; O2SAT 98
--- NOTE | 2025-03-19 09:02 | HO.PM.IMPN ---
Subjective Subjective Date of Service: 03/19/25 Interval History: feeling better Physical Exam Vital Signs: Vital Signs: Last Vital Signs Temp 97.9 F 03/19/25 07:45 Pulse 66 03/19/25 07:45 Resp 20 03/19/25 07:45 BP 100/58 L 03/19/25 07:45 Pulse Ox 98 03/19/25 07:45 O2 Del Method Nasal Cannula 03/19/25 07:45 O2 Flow Rate 2 03/19/25 07:45 BMI result Body Mass Index 30.5 Const: Limitations: No language barrier Objective Data Active Medications Acetaminophen (Acetaminophen 325 Mg Tablet) 650 mg PO Q6H PRN PRN Reason: Pain, Mild 1-3,fever,headache Last Admin: 03/15/25 01:43 Dose: 650 mg Documented By: JOSE Albuterol/Ipratropium (Albuterol/Iprat 2.5/0.5mg 3 Ml Ampul.Neb) 3 ml INHALE RQ4H WHILE AWAKE PRN PRN Reason: Shortness of Breath Apixaban (Apixaban 5 Mg Tablet) 5 mg PO BID [facility] On Hold: 03/15/25 21:00 Calcium Carbonate (Calcium Carbonate 750 Mg Tab.Chew) 750 mg PO Q4H PRN PRN Reason: Heartburn Heparin Sodium (Porcine) (Heparin Sodium,Porcine 5,000 Unit/Ml Vial) 5,000 unit SUBCUT Q12H [facility] Last Admin: 03/18/25 21:25 Dose: 5,000 unit Documented By: MUNIR Levofloxacin (Levofloxacin 500 Mg Tablet) 500 mg PO Q48H [facility] Last Admin: 03/17/25 16:22 Dose: 500 mg Documented By: MEY Levothyroxine Sodium (Levothyroxine Sodium 75 Mcg Tablet) 75 mcg PO DAILY@0600 [facility] Last Admin: 03/19/25 06:14 Dose: 75 mcg Documented By: AMAYA Magnesium Hydroxide (Milk Of Magnesia 30 Ml Oral.Susp) 30 ml PO DAILY PRN PRN Reason: Constipation Melatonin (Melatonin 3 Mg Tablet) 6 mg PO BEDTIME PRN PRN Reason: Insomnia Last Admin: 03/12/25 23:12 Dose: 6 mg Documented By: DESIRAE Midodrine (Midodrine Hcl 10 Mg Tablet) 10 mg PO TID [facility] Last Admin: 03/19/25 07:51 Dose: 10 mg Documented By: MEY Naloxone HCl (Naloxone Hcl 0.4 Mg/Ml Vial) 0.04 mg IVPUSH Q5M PRN PRN Reason: Excessive sedation or RR < 8 Omeprazole (Omeprazole 40 Mg Capsule.Dr) 40 mg PO DAILY@0630 [facility] Last Admin: 03/19/25 06:14 Dose: 40 mg Documented By: AMAYA Ondansetron HCl (Ondansetron Hcl 4 Mg/2 Ml Vial) 4 mg IVPUSH Q4H PRN PRN Reason: Nausea and Vomiting Last Admin: 03/17/25 13:29 Dose: 4 mg Documented By: MEY Sertraline HCl (Sertraline Hcl 25 Mg Tablet) 25 mg PO DAILY [facility] Last Admin: 03/19/25 07:51 Dose: 25 mg Documented By: MEY Sodium Biphosphate/Sodium Phosphate (Sodium Phosphate,Wood-Dibasic 133 Ml Enema) 133 ml [place] ONCE PRN PRN Reason: Consult order Last Admin: 03/14/25 10:11 Dose: 133 ml Documented By: ANA Sodium Chloride (0.9 % Sodium Chloride Flush 3 Ml Syringe) 3 ml IVFLUSH QSHIFT [facility] Last Admin: 03/19/25 07:52 Dose: 3 ml Documented By: MEY Sodium Zirconium Cyclosilicate (Sodium Zirconium Cyclosilicate 5 Gm Powd.Pack) 5 gm PO MOWEFR [facility] Last Admin: 03/19/25 07:51 Dose: 5 gm Documented By: MEY Vitamin D (Cholecalciferol (Vitamin D3) 25 Mcg Tablet) 50 mcg PO DAILY [facility] Last Admin: 03/19/25 07:51 Dose: 50 mcg Documented By: MEY Labs 03/18/25 07:00 03/18/25 07:00 Assessment and Plan (1) GI bleed: Status: Acute Plan d5, 69yo M with ESRD on HD TuThSa, HTN, HLD, CHF, DM2, anemia, hypothyroidism, AF on apixaban presenting with BRBPR, bleeding likely from Dieulafoy lesion, but also found to have esophageal mass and concern for metastatic CA concern multiple metastases: 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 should follow up outpatient 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 9 cm of barretts appearing mucosa noted, with mass like lesion at 41- 38 cm, bx and WATS brushings taken. Stomach: gastritis. Biopsies were obtained. Grade 2 flap valve on retroflexed examination of the cardia. Duodenum: duodenitis, mild, bx taken Terminal Ileum-not intubated Cecum: dieulafoy lesion noted with active oozing and pulsation, this was treated with x 3 clips and then hemospray and appeared to stop. Ascending Colon: diverticulosis, x 2 sessile polyps 6-8 mm noted, not removed Transverse Colon -normal Descending Colon:normal Sigmoid Colon: moderate diverticulosis Rectum: Retroflexion with small internal hemorrhoids, grade I Anorectum - normal - ok to resume eliquis from gi standpoint chronic anemia of ESRD with acute GI blood loss - transfused 2u pRBCs 03/12, H+H stable 7 to 8 ESRD - HD TuThSa hyperK - resolved p Loklema, continue on non-HD days AF eliquis HTN holding losartan and torsemide; hypotensive and started midodrine hypothyroidism - continue LT4 mood disorder - sertraline VTE ppx eliquis dispo patient not interested in STR full code reason for continued hospitalization: dispo planning Total time managing care of this patient today: 50 minutes. Quality Stroke Does the patient have a stroke diagnosis?: No VTE Prior VTE?: No VTE Risk Level:: Medical - moderate - high VTE Device Contraindication: N/A - Device Ordered VTE Drug Contraindication: Treatment Not Indicated
--- NOTE | 2025-03-19 09:13 | PM.DS ---
DS: Providers Provider Date of Service: 03/19/25 Date of admission: 03/12/25 19:40 Date of discharge: 03/19/25 Primary care physician: Alberto Melo MD Consults: 03/12/25 19:40 Consult to Gastroenterology Routine Consulting Provider[place] [facility] Reason for consultation: BRBPR 03/13/25 07:55 Consult to Nephrology Routine Consulting Provider: [facility] Reason for consultation: ESRD 03/15/25 09:17 Consult to Hematology / Oncology Routine Consulting Provider[place] [facility] [place] Reason for consultation: 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 Patient reported that the past couple days has been having small amounts of BRBPR. Denies any lightheadedness or dizziness. Denies any nausea or vomiting. Denies any GI or symptoms. Review of all other systems is negative except mentioned above ER course: Per ER team patient's exam was benign. On labs noted to have hemoglobin of 6.3. Drop from his baseline hemoglobin. Ordered for 1 unit of PRBC. Patient appeared to be breathing comfortably. Benign abdominal examination. hospital course: patient was admitted for acute on chronic anemia due to acute blood loss, underwent EGD and colonoscopy on 03/14/25 which showed mass like lesion in esophogus that was biopsied but pathology with barretts only no malignancy, duoedinitis, in cecum dieulafoy lesion with active oozing treated with 3 clips and hemospray, polyps in ascending colon. received 2 units total prbc, hgb improved appropriately, no further bleeding. on discharge will continue ppi and restart eliquis. imaging of chest and abd also showed concern for metasteses as had multiple liver hypodensities and loculated right pleural effusion with lymphadenopathy. attempt was made to drain effussion, but was too small. on reveiew of old imaging from 2022, findings appear chronic making malignancy less likely. was treated empirically for pna with levaquin, will continue 5 more doses. for ESRD was continued on HD. for hyperkalemia continued on lokelma, for chronic afib continued on eliquis. for htn noted to be hypotensive, bp meds disconitnued and started on midodrine. for hypothryoid was continued on levothyroxine, for mood disorder sertraline, patient was recommended STR however, was not interested and will be discharged home. Time Attestation Discharge Coordination Time (in mins): 34 Quality: Safe Use of Opioids Does Pt have an Active Cancer Diagnosis on the Problem List?: No Quality: Stroke Does the patient have a stroke diagnosis?: No Physical Exam Vital Signs: Vital Signs: Last Vital Signs Temp 97.9 F 03/19/25 07:45 Pulse 66 03/19/25 07:45 Resp 20 03/19/25 07:45 BP 100/58 L 03/19/25 07:45 Pulse Ox 98 03/19/25 07:45 O2 Del Method Nasal Cannula 03/19/25 07:45 O2 Flow Rate 2 03/19/25 07:45 BMI result Body Mass Index 30.5 Const: Limitations: No language barrier DS: Data Data Completed and Pending Completed studies during hospitalization [Text1]: Pending at discharge 03/14/25 12:37 Surgical [PTH] Routine Procedures Drainage of Right Pleural Cavity with Drainage Device, Percutaneous Approach (10/28/22) Extraction of Right Inguinal Lymphatic, Percutaneous Approach, Diagnostic (04/23/20) Fluoroscopy of Superior Vena Cava, Guidance (10/28/22) Insertion of Infusion Device into Right Atrium, Percutaneous Approach (03/12/23) Insertion of Infusion Device into Superior Vena Cava, Percutaneous Approach (07/18/23) Insertion of Tunneled Vascular Access Device into Chest Subcutaneous Tissue and Fascia, Percutaneous Approach (07/18/23) Introduction of Remdesivir Anti-infective into Peripheral Vein, Percutaneous Approach, [employer] 5 (07/18/23) Performance of Urinary Filtration, Intermittent, Less than 6 Hours Per Day (02/20/25) Removal of Infusion Device from Great Vessel, External Approach (10/28/22) Removal of Infusion Device from Great Vessel, Percutaneous Approach (03/12/23) Removal of Tunneled Vascular Access Device from Trunk Subcutaneous Tissue and Fascia, Open Approach (07/18/23) Transfusion of Nonautologous Red Blood Cells into Peripheral Vein, Percutaneous Approach (03/12/23) Ultrasonography of Superior Vena Cava, Guidance (07/18/23) Discharge Plan Discharge Anticipated Discharge Date/Time: 03/19/25 09:06 Patient Disposition: Home Health Service Discharge Diagnosis: gi bleed Referrals: Alberto Melo MD [Primary Care Provider, Internal Medicine] - 1 Week Discharge Medications: New levofloxacin 500 mg Tablet 500 mg PO Q48H Qty: 5 0RF midodrine 10 mg Tablet 10 mg PO TID Qty: 270 0RF Continued levothyroxine 75 mcg Tablet 75 mcg PO DAILY@0600 atorvastatin 40 mg tablet 40 mg PO BEDTIME sertraline 25 mg tablet 1 tab PO DAILY Eliquis 5 mg tablet 5 mg PO BID Lokelma 5 gram powder in packet 5 g PO MOWEFR Rx Instructions: Take 1 packet three times per week on non-dialysis days MWF, per [facility] omeprazole 40 mg capsule,delayed release(DR/EC) 40 mg PO DAILY@0630 cholecalciferol (vitamin D3) 25 mcg (1,000 unit) tablet 50 mcg PO DAILY Discontinued losartan 50 mg tablet 50 mg PO DAILY 90 Days Qty: 90 3RF torsemide 20 mg tablet 40 mg PO BID@0900,1200 Discharge Orders: Discharge Order (Routine); Ordered 03/19/25 Ordered By: Paul Welch Diet: Advance to usual diet Activity on Discharge: As tolerated Stand Alone Forms: Patient Portal Discharge page Print Language: Swedish Care Plan Goals: recovery Health Concerns: low bp, pna, gi bleed Plan of Treatment: 5 more doses levaquin, follow up imaging to confirm reoslution, hold bp meds, added midodrine, monitor labs Assessment: see above
[2025-03-19 09:30] VITALS: PULSE 66; PULSE 73; O2SAT 93; O2SAT 96
--- NOTE | 2025-03-19 10:03 | W.MHC.F2F ---
Service Date Service Date: 03/19/25 Encounter Date of encounter: 03/19/25 Reasons for Services Signs and symptoms assessed: weakness Reason for shelter: medication management, medication treatment and teach disease management Reason for physical therapy: home safety and mobility and therapeutic exercises Homebound: Leaving the home is medically contraindicated at this time without the asist of a device and/or another person due th the listed conditions above and below. Reason homebound: unsteady gait / fall risk Certification: Based on the above findings, I certify that this patient is confined to the home and needs intermittent shelter care, physical therapy and/or speech therapy, or continues to need occupational therapy. The patient is under my care, and I have initiated the establishment of the plan of care. The patient will be followed by a physician who will periodically review the plan of care. Time Spent With Patient Time: Total time managing care of this patient today ____ minutes.
[2025-03-19 12:00] VITALS: BP 108/57; PULSE 62; RESP 20; TEMP 36.7; O2SAT 99
--- NOTE | 2025-03-19 12:11 | MHC.CM.PN ---
Addendum entered by Delisa Kothari 03/19/25 12:51: [facility] accepted pt. Original Note: Second IMM given 03/19. Pt is medically cleared for discharge home with new VNA services, he will return to [facility] today via BLS/[facility]. [facility] transport auth received, booking ID#: [id number]. Pt aware of the discharge plan and in agreement. He will resume outpt HD services at [facility]. This CM spoke with the nurse at [facility], she is aware of the pts plan to return today.
--- NOTE | 2025-03-20 10:40 | PM.EVENT ---
Reviewed pathology report, EGD/biopsy of esophageal mass was benign. 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 CT abdomen was also reviewed with radiologist. Patient has had cystic lesions in the liver that remain unchanged compared to previous scan in 2022. Patient will need continued follow up with GI and monitoring for anemia.
== END 2025-03-19 14:11 | disposition home health service (06) | DRG 393 ==
LOC: HO.ED 20:09 → HO.EDOVER 20:11 → HO.IMC 03-13 00:56
PROVIDERS: Family Medicine; Internal Medicine; Internal Medicine Gastroenterology; Internal Medicine Nephrology; Admitting Provider Hospitalist; Emergency Provider Emergency Medicine; PCP Family Medicine; Visit Provider Internal Medicine
PROC: 0DD58ZX Extraction of Esophagus, Via Natural or Artificial Opening Endoscopic, Diagnostic (ICD-10-PCS; principal; 2025-03-14 13:40)
DX: K63.81 Dieulafoy lesion of intestine (principal); J18.9 Pneumonia, unspecified organism; K29.81 Duodenitis with bleeding; K57.31 Diverticulosis of large intestine without perforation or abscess with bleeding; N18.6 End stage renal disease; I12.0 Hypertensive chronic kidney disease with stage 5 chronic kidney disease or end stage renal disease; D62 Acute posthemorrhagic anemia; I48.20 Chronic atrial fibrillation, unspecified; E03.9 Hypothyroidism, unspecified; E87.5 Hyperkalemia; F39 Unspecified mood [affective] disorder; E11.22 Type 2 diabetes mellitus with diabetic chronic kidney disease; I95.9 Hypotension, unspecified; K22.719 Barrett's esophagus with dysplasia, unspecified; K44.9 Diaphragmatic hernia without obstruction or gangrene; E86.1 Hypovolemia; K63.5 Polyp of colon; K64.0 First degree hemorrhoids; Z99.2 Dependence on renal dialysis; Z79.01 Long term (current) use of anticoagulants; Z79.890 Hormone replacement therapy; Z79.899 Other long term (current) drug therapy
CPT/HCPCS: 36415; 71045; 71260; 74177; 76604; 80048; 80051; 80053; 80076; 82272; 82378; 82728; 82803; 82947; 83605; 83615; 83690; 83735; 83880; 84484; 85025; 85027; 85045; 86140; 86850; 86900; 86901; 86923; 87040; 87637; 88305; 88313; 88342; 90999; 93005; 93306; 93931; 99285; J0696; J1644; J1956; J2003; J2405; J2470; J2704; J7120; P9016; P9047; Q9967

== ENCOUNTER → 2025-03-12 16:56 | Outpatient (BNV) | payer OTHER, SELFPAY | PROVIDERS: Admitting Provider Hospitalist; Emergency Provider Emergency Medicine; PCP Family Medicine; Visit Provider Internal Medicine | DX: R94.31 Abnormal electrocardiogram [ECG] [EKG] (principal); K92.1 Melena | CPT/HCPCS: 93010 ==

== ENCOUNTER 2025-03-12 19:40 | Outpatient (BNV) | payer OTHER, SELFPAY | END 2025-03-15 02:20 | PROVIDERS: Admitting Provider Hospitalist; Emergency Provider Emergency Medicine; PCP Family Medicine; Visit Provider Radiology Diagnostic Radiology | DX: R91.8 Other nonspecific abnormal finding of lung field (principal) | CPT/HCPCS: 71045 ==

== ENCOUNTER 2025-03-12 19:40 | Outpatient (BNV) | payer OTHER, SELFPAY | END 2025-03-16 13:30 | PROVIDERS: Admitting Provider Hospitalist; Emergency Provider Emergency Medicine; PCP Family Medicine; Visit Provider Radiology Diagnostic Radiology | DX: J90 Pleural effusion, not elsewhere classified (principal) | CPT/HCPCS: 76604 ==

== ENCOUNTER 2025-03-12 19:40 | Outpatient (BNV) | payer OTHER, SELFPAY | END 2025-03-14 07:45 | PROVIDERS: Admitting Provider Hospitalist; Emergency Provider Emergency Medicine; PCP Family Medicine; Visit Provider Radiology Diagnostic Radiology | DX: K22.9 Disease of esophagus, unspecified (principal); N18.9 Chronic kidney disease, unspecified; K57.30 Diverticulosis of large intestine without perforation or abscess without bleeding; J90 Pleural effusion, not elsewhere classified; J81.0 Acute pulmonary edema; I25.10 Atherosclerotic heart disease of native coronary artery without angina pectoris; R93.2 Abnormal findings on diagnostic imaging of liver and biliary tract | CPT/HCPCS: 71260; 74177 ==

== ENCOUNTER 2025-03-12 19:40 | Outpatient (BNV) | payer OTHER, SELFPAY | END 2025-03-18 11:00 | PROVIDERS: Admitting Provider Hospitalist; Emergency Provider Emergency Medicine; PCP Family Medicine; Visit Provider Radiology Diagnostic Radiology | DX: R03.1 Nonspecific low blood-pressure reading (principal) | CPT/HCPCS: 93931 ==

== ENCOUNTER → 2025-03-12 19:40 | Outpatient (BNV) | payer OTHER, SELFPAY | PROVIDERS: Admitting Provider Hospitalist; Emergency Provider Emergency Medicine; PCP Family Medicine; Visit Provider Internal Medicine Gastroenterology | DX: K92.2 Gastrointestinal hemorrhage, unspecified (principal) | CPT/HCPCS: 99232 ==

== ENCOUNTER → 2025-03-12 19:40 | Outpatient (BNV) | payer OTHER, SELFPAY | PROVIDERS: Admitting Provider Hospitalist; Emergency Provider Emergency Medicine; PCP Family Medicine; Visit Provider Internal Medicine | DX: D64.9 Anemia, unspecified (principal) | CPT/HCPCS: 99222 ==

== ENCOUNTER → 2025-03-12 19:40 | Outpatient (BNV) | payer OTHER, SELFPAY | PROVIDERS: Admitting Provider Hospitalist; Emergency Provider Emergency Medicine; PCP Family Medicine; Visit Provider Nurse Practitioner Acute Care | DX: K92.2 Gastrointestinal hemorrhage, unspecified (principal) | CPT/HCPCS: 99232 ==

== ENCOUNTER 2025-03-20 11:33 | Inpatient (IN) | payer OTHER, SELFPAY ==
[2025-03-20] VITALS (9 sets, daily range): BP systolic 80–100; BP diastolic 42–61; PULSE 55–75; RESP 12–20; TEMP 36.4–37.2; O2SAT 98–100; BMI 27.9
--- NOTE | ~2025-03-20 | XR_ITS ---
EXAMINATION: XR CHEST CLINICAL INFORMATION: dyspnea COMPARISON: November 13, 2024 x-ray and CT TECHNIQUE: Frontal view of the chest was obtained. FINDINGS: Mediastinal wires again noted. There is cardiomegaly. Bony vessels are enlarged and indistinct, right greater than left chest. There is patchy increased glass opacity in the middle third and lower third right lung zone. There is blunting of the left costophrenic angle. XR/XR chest 1V IMPRESSION: Cardiomegaly and suspected pulmonary vascular congestion which is improved from the prior. Also, there is evidence of decreasing pleural effusions. Electronically signed by: Leobardo Newby MD 03/20/2025 12:25 PM EDT RP
--- NOTE | 2025-03-20 11:48 | ECG_ITS ---
Test Reason : SOB Blood Pressure : */* mmHG Vent. Rate : 60 BPM Atrial Rate : * BPM P-R Int : * ms QRS Dur : 102 ms QT Int : 446 ms P-R-T Axes : * 66 172 degrees QTcB Int : 446 ms Normal sinus rhythm with PACS Marked ST abnormality, possible lateral subendocardial injury Abnormal ECG When compared with ECG of 12-Mar-2025 16:58, ST more depressed Lateral leads T wave inversion more evident in Lateral leads Referred By: Freda Magaña Electronically Signed By: Chris Messer
--- NOTE | 2025-03-20 11:54 | ED.SOB ---
HPI - SOB/Dyspnea General Chief Complaint: General Medical Stated Complaint: PT STS SOB,D/C T-1,[facility]ANT[facility] SNF, FROM [facility] Time Seen by Provider: 03/20/25 11:47 Source: patient, EMS and old records reviewed Mode of arrival: EMS Limitations: no limitations History of Present Illness ED Provider: RO WANG Narrative: 69 yo male with PMH of anemia, HLD, HTN, ESR on HD T Th S, CHF, nephrotic syndrome, DM, SBO, hypothyroidism, s/p aortic valve replacement, afib he is on eliquis he was just admitted for GIB on 03/12 and DC yesterday he was transfused 2 UPRBC, EGD and colo on 03/14 with mass like lesion in esophagus (barretts path), duodenitis, dieulafoy lesion in ceclum s/p 3 clips and hemospray. He has a known chronic R pleural effusion as well. He was started on levofloxacin for possible URI - with 5 more days of treatment left, he started back on his eliquis he comes in today with c/o not feeling well and states he cannot walk due to poor breathing, he cannot care for himself. He notes he is taking his medications. He denies swelling, no HD today but dialyzed here. He did not take his mid day dose of midodrine. He denies fevers or coughing. He states he feels much worse since discharge. during his stay he has been having increasing issues with low BPs in 70s and 80s MD elicited complaint: shortness of breath Pertinent past history: other Onset (ago): day(s) (2) Context: recent illness Timing: progressively worsening Severity: severe Exacerbating factors: lying flat and exertion Relieving factors: rest and upright position Associated symptoms: cough and orthopnea Treatment prior to arrival: none Related Data Home Medications ?Medication ?Instructions ?Recorded ?Confirmed levothyroxine 75 mcg tablet 75 mcg PO DAILY@0600 06/27/20 03/20/25 atorvastatin 40 mg tablet 40 mg PO BEDTIME 02/10/22 03/20/25 sertraline 25 mg tablet 25 mg PO DAILY 10/03/22 03/20/25 cholecalciferol (vitamin D3) 25 50 mcg PO DAILY 01/03/25 03/20/25 mcg (1,000 unit) tablet omeprazole 40 mg capsule,delayed 40 mg PO DAILY@0630 01/03/25 03/20/25 release apixaban 5 mg tablet (Eliquis) 5 mg PO BID 02/20/25 03/20/25 sodium zirconium cyclosilicate 5 5 g PO MOWEFR 03/12/25 03/20/25 gram oral powder packet ([facility]) Previous Rx's ?Medication ?Instructions ?Recorded levofloxacin 500 mg tablet 500 mg PO Q48H #5 tabs 03/19/25 midodrine 10 mg tablet 10 mg PO TID #270 tabs 03/19/25 Allergies Allergy/AdvReac Type Severity Reaction Status Date / Time Penicillins Allergy Unknown UNKWN Verified 03/20/25 11:59 Review of Systems Review of Systems: Constitutional : No Fever, No Chills ENT/Mouth : No sore throat, No Rhinorrhea, No Swallowing Difficulty Eyes: No Eye Pain, No Swelling, No Redness Cardiovascular : No Chest Pain, positive SOB, No Orthopnea, no Edema Respiratory : pos Cough, No Sputum, No Wheezing, positive dyspnea Gastrointestinal : No Nausea, No Vomiting, No Diarrhea, No abdominal Pain, No Hematochezia, No Melena Genitourinary : No Dysuria, No Urinary Frequency, No Hematuria Musculoskeletal : No joint pain, No Myalgias Skin : No Skin Lesions, No rash Neuro : pos Weakness, No Numbness, No Dizziness, No Headache All other systems reviewed and are negative [facility] Past Medical History Attestation statement: The following information was validated with the patient. 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 Social History Social History Household Members: Other Housing: Assisted Living Facility Do you presently have visiting nurse or other home services: Yes Unable to assess alcohol history related to: Unknown Alcohol intake: former Comment: rings appropriately Patient Tobacco Use Status: Former Tobacco user Tobacco use type: Cigarette Years Smoked: 30 Smoked in Last 30 Days: No e-Cigarette/Vaping Use: Never Used Second Hand Smoke Exposure: No Use of substances other than those prescribed or required for medical reasons: No Advance Directives: Yes Advance Directives on File: Yes Advance Directives Date on File: 07/30/23 Do you have a plan to hurt others: No Plan Nutrition Risks: No Nutritional Risk service: No Current occupational status: unemployed and disabled Cognitive needs: No Hearing needs: No Vision needs: No Physical Exam Vital Signs: Vital Signs: Last Vital Signs Temp 97.7 F 03/20/25 14:01 Pulse 64 03/20/25 15:36 Resp 12 03/20/25 15:36 BP 85/42 L 03/20/25 15:36 Pulse Ox 98 03/20/25 15:36 O2 Del Method Room Air 03/20/25 15:36 BMI result Body Mass Index 27.9 Appearance: Alert. Oriented X3. No acute distress. Eyes: Pupils equal, round and reactive to light. ENT: Pharynx normal. Neck: Normal inspection. Neck supple. CVS: Normal heart rate and rhythm. Pulses normal. Respiratory: No respiratory distress. Breath sounds both bases are diminished Abdomen: Soft and nontender. Skin: Skin warm and dry. pale skin color. Extremities: No lower extremity edema. Neuro: Oriented X 3. No motor deficit. No sensory deficit. Course Course Course Narrative: hypotension due to anemia, CKD, possible valve issue and not infection or severe sepsis CKD is chronic and now due to infection or severe sepsis Freda Magaña DO 03/20/25 3761 Reevaluation(s) Reevaluation #1: took eliquis this AM held aspirin due to GIB hx Medications Administered Discontinued Medications Generic Name Dose Route Start Last Admin Trade Name Freq PRN Reason Stop Dose Admin Ceftriaxone Sodium 1 gm 03/20/25 12:22 03/20/25 13:07 Ceftriaxone Sodium 1 Gm Vial IVPUSH 03/20/25 12:23 1 gm ONCE ONE Administration Sodium Chloride 500 mls @ 500 mls/hr 03/20/25 12:22 03/20/25 14:00 Ns IV 03/20/25 13:21 Infused .Q1H ONE Infusion Midodrine 10 mg 03/20/25 12:08 03/20/25 12:35 Midodrine Hcl 10 Mg Tablet PO 03/20/25 12:09 10 mg ONCE ONE Administration Sodium Zirconium Cyclosilicate 5 gm 03/20/25 12:57 03/20/25 13:07 Sodium Zirconium Cyclosilicate 5 Gm Powd.Pack PO 03/20/25 12:58 5 gm ONCE ONE Administration Medical Decision Making Medical Decision Making [facility] Narrative: 69 yo male with PMH of anemia, HLD, HTN, ESR on HD T Th S, CHF, nephrotic syndrome, DM, SBO, hypothyroidism, s/p aortic valve replacement, afib he is on eliquis now here with dyspnea states he cannot lay flat he is taking his medications though he doesn't know the name. HE denies chest pain or return of GIB symptoms. He states he cannot care for himself at this time will need labs, EKG, CXR and start on his mid afternoon midodrine as well as gentle fluid bolus though I think he is going to need HD - will give empiric dose of ceftriaxone as well given recent pneumonia. He has EKG abnormalities but denies CP. He is warm and well perfused he is mentating well he does not appear in shock at this time. Differential Diagnosis Differential Diagnoses: The differential diagnosis associated with the presentation includes pneumonia, ESRD, K abnormality, anemia, CHF, ischemia Admission/Observation Consideration of admission/observation: Escalation of care including admission/observation considered admit for further management after hospital discussion with hospitalist and nephro/cardiology Consult Healthcare Provider Management of the patient was discussed with: Cheese Specialist I sent message to Dr. Messer given trop and BNP/ECHO he has not responded to any fluids he already took his eliquis this AM Dr. Messer - bedside ECHO, HD, blood transfusion during HD admit to hospital Dr. Ribeiro aware as well Lab Data [facility] Lab Attestation statement: I reviewed the patient's lab results. 03/20/25 12:25 09/02/25 12:25 Labs: Lab Results 03/20/25 03/20/25 03/20/25 Range/Units 12:25 12:37 13:03 WBC 6.6 (4.8-10.8) X10*3/uL RBC 2.20 L (4.60-5.80) X10*6/uL Hgb 7.6 L (14.0-18.0) g/dl Hct 21.7 L (42.0-52.0) % MCV 98.6 H (80.0-98.0) fL MCH 34.5 H (27.0-33.0) pg MCHC 35.0 (31.0-36.0) g/dl RDW 14.7 (11.0-16.0) % Plt Count 251 (160-400) X10*3/uL MPV 10.5 (9.4-12.4) fL Immature Gran % (Auto) 0.6 H (0.0-0.4) % Neut % (Auto) 81.3 H (45-73) % Lymph % (Auto) 7.5 L (20-40) % Anson % (Auto) 8.0 (2-11) % Eos % (Auto) 2.0 (0-4) % Baso % (Auto) 0.6 (0-2) % Lymph # (Auto) 0.5 L (1.2-4.9) X10*3/uL Anson # (Auto) 0.5 (0.1-1.2) X10*3/uL Eos # (Auto) 0.1 (0.0-0.4) X10*3/uL Baso # (Auto) 0.0 (0.0-0.2) X10*3/uL Abs Immat Gran (auto) 0.04 H (0.00-0.03) X10*3/uL Absolute Neuts (auto) 5.4 (2.0-8.3) x10*3/uL Absolute Nucleated RBC 0.000 (0.0-0.012) X10*3/uL Nucleated RBC % (auto) 0.0 (0.0-0.2) /100WBC VBG pH 7.48 H (7.32-7.43) VBG pCO2 28 mmHg VBG pO2 67 mmHg VBG HCO3 21 L (22-26) mmol/L VBG O2 Saturation 91.0 % VBG Base Excess -0.5 mmol/L Sodium 136 (135-145) mmol/L Potassium 5.5 H (3.3-5.1) mmol/L Chloride 92 L (96-108) mmol/L Carbon Dioxide 22 (22-29) mmol/L Anion Gap 28 H (12-20) BUN 100 H (9-16) mg/dL Creatinine 12.53 H* (0.5-1.4) mg/dL Estim Creat Clear Calc 6.4 Estimated GFR 4 Random Glucose 122 H (60-115) mg/dL Lactic Acid 2.4 H* (0.5-2.0) mmol/L Calcium 8.4 (8.4-10.2) mg/dL Magnesium 2.2 (1.6-2.6) mg/dL Total Bilirubin 0.5 (0.0-1.0) mg/dL Direct Bilirubin 0.2 (0.0-0.5) mg/dL AST 36 (5-37) U/L ALT 37 (0-40) U/L Alkaline Phosphatase 76 (39-117) U/L Troponin I High Sens 8776.6 H* D (<3.5-35.0) ng/L C-Reactive Protein 9.49 H (< or = 0.50) mg/dL B-Natriuretic Peptide 8515 H (<100) pg/mL Total Protein 7.2 (6.5-8.0) g/dL Albumin 4.0 (3.5-5.0) g/dL Influenza Type A (PCR) NEGATIVE (Negative) Influenza Type B (PCR) NEGATIVE (Negative) RSV RNA Qual (PCR) NEGATIVE (Negative) SARS-CoV-2 RNA (RT-PCR) NEGATIVE (Negative) Blood Type A Positive Antibody Screen NEGATIVE Independent Interpretation I performed an independent interpretation of an: EKG and Plain X-Ray (improving) Interpretation: Rate: 60 Rhythm: irregular ? p waves with PACs [place]: normal Normal P waves. Normal LOY. Normal QRS complex. ST T wave : no [place] but has ST depressions in I, avL, V5-V6. qTC:446 prior studies: ST depressions more pronounced The study has been interpreted contemporaneously by me. . Radiology Impression Discussion of test interpretation with radiology: I have reviewed the radiologist's reading. Independent Historian Clinical information obtained from an independent historian. History obtained from or confirmed by: EMS External Record Review External record reviewed: Inpatient record and Outpatient record Procedures Procedure Narrative Procedure Narrative: very limited due to resp status EMERGENCY ULTRASOUND INTERPRETATION-Limited Echocardiography? The study reveals:? Impression: depressed LV FUNCTION, NO PERICARDIAL EFFUSION Emergent Cardiac for Indication:? Views Used: PLAX, PSSA, A4, SX, could not tolerate IVC Pericardial Effusion/Tamponade Findings: NONE RV Dilation (> LV diam in 4ch apical):? NONE Global LV Fxn: decreased IVC Dilation and Resp Variation: NORMAL Performed by: RO Date:03/20/25 Time: 139pm CPT:35337; Reference Codes? [email or web address] Critical Care Time Critical Care Time Critical Care Time: Yes Total Critical Care Time: 45 Attestation: Time is exclusive of separately billable procedures. Time includes: direct patient care, patient reassessment, coordination of patient care, interpretation of data (laboratory data, pulse oximetry, and chest xrays), review of patient's medical records, medical consultation x 3 and documentation of patient care. Procedures excluded from critical care time: central intravenous line placement and electrocardiography. I attest to this time spent taking care of the patient Discharge Plan Discharge Clinical Impression: ESRD on hemodialysis, Elevated troponin, Acute dyspnea Hypotension Qualifiers: Hypotension type: unspecified hypotension type Qualified Code(s): I95.9 - Hypotension, unspecified Patient Disposition: Admitted As Inpatient
[2025-03-20 12:35] LABS: MANUAL DIFF FLAG NO
[2025-03-20 12:38] LABS: Hematocrit 21.7 % (42.0-52.0); Hemoglobin 7.6 g/dl (14.0-18.0); Imm Gran Abs Auto 0.04 X10*3/uL (0.00-0.03); Imm Gran Pct Auto 0.6 % (0.0-0.4); Lymphocytes Absolute Auto 0.5 X10*3/uL (1.2-4.9); Mean Corpuscular HGB Conc 35.0 g/dl (31.0-36.0); Mean Corpuscular Hemoglobin 34.5 pg (27.0-33.0); Mean Corpuscular Volume 98.6 fL (80.0-98.0); NRBC Abs Auto 0.000 X10*3/uL (0.0-0.012); NRBC Pct Auto 0.0 /100WBC (0.0-0.2); Platelet Count 251 X10*3/uL (160-400); Red Blood Count 2.20 X10*6/uL (4.60-5.80); White Blood Count 6.6 X10*3/uL (4.8-10.8)
[2025-03-20 12:40] LABS: VBG HCO3 21 mmol/L (22-26); VBG O2 % Saturation 91.0 %
[2025-03-20 12:42] LABS: Venous Blood Gas Refer to POC result
--- NOTE | 2025-03-20 12:57 | PC.NURSE ---
Pt difficult stick with second blood cultures d/t limited access. Fistula Left Upper bicep. Pt medicated per SEP with midodrine and IV fluids- BP cycling q15 to monitor BP. MD Alvarez
[2025-03-20 12:59] LABS: Alanine Aminotransferase 37 U/L (0-40); Albumin Level 4.0 g/dL (3.5-5.0); Alkaline Phosphatase 76 U/L (39-117); Anion Gap 28 (12-20); Aspartate Amino Transferase 36 U/L (5-37); Blood Urea Nitrogen 100 mg/dL (9-16); Calcium 8.4 mg/dL (8.4-10.2); Carbon Dioxide 22 mmol/L (22-29); Chloride 92 mmol/L (96-108); Creatinine Clr Calc Pharmacy 6.4; Estimated Glomerular Filt Rate 4; Magnesium 2.2 mg/dL (1.6-2.6); Potassium 5.5 mmol/L (3.3-5.1); Sodium 136 mmol/L (135-145); Total Protein 7.2 g/dL (6.5-8.0)
[2025-03-20 13:25] LABS: B Type Natriuretic Peptide 8515 pg/mL (<100)
[2025-03-20 13:26] LABS: Troponin-I High Sensitivity 8776.6 ng/L (<3.5-35.0)
[2025-03-20 13:50] LABS: Resp Syncy Virus RNA Qual PCR NEGATIVE (Negative); SARS COV2 PCR INHOUSE NEGATIVE (Negative)
--- NOTE | 2025-03-20 14:09 | PM.CNCAR ---
History of Present Illness History of Present Illness Date of Service: 03/20/25 Requesting physician: Freda Magaña Chief complaint: PT STS SOB,D/C T-1,[facility], FROM [facility] Narrative: [age] year gentleman presenting for shortness of breath and ECG changes. He just left the hospital yesterday after upper GI blood loss and was found to have esophageal mass which on biopsy was benign. He was diagnosed with AV malformations and Yee's esophagus. He was significantly anemic and received some blood transfusions and was on Eliquis which was resumed on discharge. He is saying that he is significantly short of breath and can not take few steps without getting out of breath. This was the reason for coming back today. He is due for hemodialysis today and but he decided to come to the emergency department rather than going for hemodialysis. His blood pressure has been low and was running low before discharge and he was started on midodrine by the medicine team. He is on 10 mg 3 times a day of midodrine. He is denying any chest discomfort. He is denying any orthopnea or PND. His main complaint is dyspnea with minimal activity. His EKGs showing lateral ST depressions. His hemoglobin is 7.6. His blood pressure is 92/47 currently. He was given midodrine by the emergency department. He is not hypoxic. He was also treated for pneumonia and was supposed to complete 5 days of levofloxacin as outpatient. 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 Surgical History Surgical History Hx of colonoscopy H/O aortic valve replacement Social History Social History Household Members: Other Housing: Assisted Living Facility Do you presently have visiting nurse or other home services: Yes Unable to assess alcohol history related to: Unknown Alcohol intake: former Comment: rings appropriately Patient Tobacco Use Status: Former Tobacco user Tobacco use type: Cigarette Years Smoked: 30 Smoked in Last 30 Days: No e-Cigarette/Vaping Use: Never Used Second Hand Smoke Exposure: No Use of substances other than those prescribed or required for medical reasons: No Advance Directives: Yes Advance Directives on File: Yes Advance Directives Date on File: 07/30/23 Do you have a plan to hurt others: No Plan service: No Current occupational status: unemployed and disabled Cognitive needs: No Hearing needs: No Vision needs: No Meds Allergies Allergy/AdvReac Type Severity Reaction Status Date / Time Penicillins Allergy Unknown UNKWN Verified 03/20/25 11:59 Home Medications ?Medication ?Instructions ?Recorded ?Confirmed ?Last Taken ?Type levothyroxine 75 mcg tablet 75 mcg PO DAILY@0600 06/27/20 03/12/25 02/20/25 History atorvastatin 40 mg tablet 40 mg PO BEDTIME 02/10/22 03/12/25 02/20/25 History sertraline 25 mg tablet 1 tab PO DAILY 10/03/22 03/12/25 02/20/25 History cholecalciferol (vitamin D3) 25 50 mcg PO DAILY 01/03/25 03/12/25 Unknown History mcg (1,000 unit) tablet omeprazole 40 mg capsule,delayed 40 mg PO DAILY@0630 01/03/25 03/12/25 02/20/25 History release apixaban 5 mg tablet (Eliquis) 5 mg PO BID 02/20/25 03/12/25 02/20/25 History sodium zirconium cyclosilicate 5 5 g PO MOWEFR 03/12/25 03/13/25 Unknown History gram oral powder packet (Lokelma) Physical Exam Vital Signs: Vital Signs: Last Vital Signs Temp 97.7 F 03/20/25 14:01 Pulse 64 03/20/25 14:01 Resp 18 03/20/25 14:01 BP 92/47 L 03/20/25 14:01 Pulse Ox 100 03/20/25 14:01 O2 Del Method Room Air 03/20/25 14:01 BMI result Body Mass Index 27.9 GENERAL APPEARANCE: in no acute distress, pleasant. NECK: no carotid bruit, no jugular venous distention. SKIN: no suspicious lesions, warm and dry. HEART: Systolic murmur aortic area, regular rate and rhythm. LUNGS: Crackles at right base. ABDOMEN: soft, nontender. EXTREMITIES: no edema. PERIPHERAL PULSES: equal. NEUROLOGIC: No gross deficits, AAO X 3 Objective Labs and Meds 03/20/25 12:25 03/20/25 12:25 Lab results: Laboratory Results - last 24 hr 03/20/25 03/20/25 03/20/25 12:25 12:37 13:03 WBC 6.6 RBC 2.20 L Hgb 7.6 L Hct 21.7 L MCV 98.6 H MCH 34.5 H MCHC 35.0 RDW 14.7 Plt Count 251 MPV 10.5 Immature Gran % (Auto) 0.6 H Neut % (Auto) 81.3 H Lymph % (Auto) 7.5 L [place] % (Auto) 8.0 Eos % (Auto) 2.0 Baso % (Auto) 0.6 Lymph # (Auto) 0.5 L [place] # (Auto) 0.5 Eos # (Auto) 0.1 Baso # (Auto) 0.0 Abs Immat Gran (auto) 0.04 H Absolute Neuts (auto) 5.4 Absolute Nucleated RBC 0.000 Nucleated RBC % (auto) 0.0 VBG pH 7.48 H VBG pCO2 28 VBG pO2 67 VBG HCO3 21 L VBG O2 Saturation 91.0 VBG Base Excess -0.5 Sodium 136 Potassium 5.5 H Chloride 92 L Carbon Dioxide 22 Anion Gap 28 H BUN 100 H Creatinine 12.53 H* Estim Creat Clear Calc 6.4 Estimated GFR 4 Random Glucose 122 H Lactic Acid 2.4 H* Calcium 8.4 Magnesium 2.2 Total Bilirubin 0.5 Direct Bilirubin 0.2 AST 36 ALT 37 Alkaline Phosphatase 76 Troponin I High Sens 8776.6 H* D C-Reactive Protein 9.49 H B-Natriuretic Peptide 8515 H Total Protein 7.2 Albumin 4.0 Influenza Type A (PCR) NEGATIVE Influenza Type B (PCR) NEGATIVE RSV RNA Qual (PCR) NEGATIVE SARS-CoV-2 RNA (RT-PCR) NEGATIVE Blood Type A Positive Antibody Screen NEGATIVE Imaging Radiologist's impression: Impressions Chest X-Ray 03/20/25 12:02 IMPRESSION: Cardiomegaly and suspected pulmonary vascular congestion which is improved from the prior. Also, there is evidence of decreasing pleural effusions. Electronically signed by: Leobardo Newby MD 03/20/2025 12:25 PM EDT RP Assessment and Plan (1) H/O aortic valve replacement: Status: Acute (2) Hypotension: Status: Acute (3) Elevated troponin: Status: Resolved Plan [age] year gentleman with history of aortic valve replacement in July 2022 with 25 mm Inspiris valve by Dr. Yates. He did not have any coronary disease at that time. He is now presenting after recent GI blood loss when he was transfused 2 units of blood. He was also being treated for pneumonia. He is short of breath with minimal activity. He is anemic with hemoglobin is 7.6. His baseline was close to 9 previously. He also was hypotensive before discharge and was started on midodrine. He was being treated for pneumonia and was supposed to complete levofloxacin for 5 more days. Unsure about his hypotension. It can be related to progressive valvular issue and hypovolemia due to GI blood loss. Currently does not appear to be volume overloaded. He has right-sided lung crackles could be related to the infection recently. If his hypotensive a little fluid challenge can be tried. I think he needs hemodialysis. I would favor to give him blood on hemodialysis and would equilibrate his volume status there. Stop the Eliquis. We will refer him for Watchman device. Also I do not see any clear documentation of atrial fibrillation on all the EKGs that I could see in our system and at [facility]. We really need to know where this AFib was diagnosed. Thank you for allowing me to participate in the care of your patient. Please feel free to contact me if you have any questions. Procedures Date of Service Date of Service: 03/20/25
[2025-03-20 14:34] LABS: Reflex Lactate? Lactic Acid Added
--- NOTE | 2025-03-20 14:50 | PC.NURSE ---
Ultrasound at bedside for echo
--- NOTE | 2025-03-20 16:02 | PHA.MEDREC ---
Addendum entered by Sidney Causey PharmD 03/20/25 16:08: MED REC CHECKED BY [facility] Original Note: Pharmacy Consult ? Medication Reconciliation Pharmacy has completed the medication reconciliation. Utilized claims discharge packet from 03/19/25 to confirm med list.
--- NOTE | 2025-03-20 16:10 | PM.IMHP ---
History of Present Illness Date of Service: 03/20/25 Chief Complaint: sob 69M PMH HTN, HLD, ESRD on HD, s/p AVR, hypothryoid, SBO, presented with sob. Patient had been admitted to [facility] 03/12/2025 to 03/19/2025 for gi bleed due to duodenitis and cecal dieulefoy lesion, pneumonia. At time of discharge was feeling better and ambulating with walker he was not interested in going to senior care facility so he went home to assisted living at which point he started to have shortness of breath with minimal exertion and even at rest so he decided to come back to ED. in the ED noted to have troponin of over 8000, ischemic changes on EKG, asymptomatic hypotension, hemoglobin slightly lower at 7.6, echo with significant aortic stenosis. 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 Surgical History Hx of colonoscopy H/O aortic valve replacement Social History Household Members: Other Housing: Assisted Living Facility Do you presently have visiting nurse or other home services: Yes Unable to assess alcohol history related to: Unknown Alcohol intake: former Comment: rings appropriately Patient Tobacco Use Status: Former Tobacco user Tobacco use type: Cigarette Years Smoked: 30 Smoked in Last 30 Days: No e-Cigarette/Vaping Use: Never Used Second Hand Smoke Exposure: No Use of substances other than those prescribed or required for medical reasons: No Advance Directives: Yes Advance Directives on File: Yes Advance Directives Date on File: 07/30/23 Do you have a plan to hurt others: No Plan Nutrition Risks: No Nutritional Risk service: No Current occupational status: unemployed and disabled Cognitive needs: No Hearing needs: No Vision needs: No Meds Allergies Allergy/AdvReac Type Severity Reaction Status Date / Time Penicillins Allergy Unknown UNKWN Verified 03/20/25 11:59 Active Medications: Current Medications Acetaminophen (Acetaminophen 325 Mg Tablet) 650 mg PO Q6H PRN PRN Reason: Pain, Mild 1-3,fever,headache Atorvastatin Calcium (Atorvastatin Calcium 40 Mg Tablet) 40 mg PO BEDTIME ROSALIA Calcium Carbonate (Calcium Carbonate 750 Mg Tab.Chew) 750 mg PO Q4H PRN PRN Reason: Heartburn Heparin Sodium (Porcine) (Heparin Sodium,Porcine 5,000 Unit/Ml Vial) 5,000 unit SUBCUT Q8H ON LICENSE OF [facility] Levothyroxine Sodium (Levothyroxine Sodium 75 Mcg Tablet) 75 mcg PO DAILY@0600 ON LICENSE OF [facility] Magnesium Hydroxide (Milk Of Magnesia 30 Ml Oral.Susp) 30 ml PO DAILY PRN PRN Reason: Constipation Melatonin (Melatonin 3 Mg Tablet) 6 mg PO BEDTIME PRN PRN Reason: Insomnia Midodrine (Midodrine Hcl 10 Mg Tablet) 10 mg PO TID ON LICENSE OF [facility] Omeprazole (Omeprazole 40 Mg Capsule.Dr) 40 mg PO DAILY@0630 ON LICENSE OF [facility] Sertraline HCl (Sertraline Hcl 25 Mg Tablet) 25 mg PO DAILY ON LICENSE OF [facility] Sodium Chloride (0.9 % Sodium Chloride Flush 3 Ml Syringe) 3 ml IVFLUSH QSHIFT ON LICENSE OF [facility] Sodium Zirconium Cyclosilicate (Sodium Zirconium Cyclosilicate 5 Gm Powd.Pack) 5 gm PO MOWEFR ON LICENSE OF [facility] Vitamin D (Cholecalciferol (Vitamin D3) 25 Mcg Tablet) 50 mcg PO DAILY ON LICENSE OF [facility] Home Medications ?Medication ?Instructions ?Recorded ?Confirmed ?Last Taken ?Type levothyroxine 75 mcg tablet 75 mcg PO DAILY@0600 06/27/20 03/20/25 03/19/25 History atorvastatin 40 mg tablet 40 mg PO BEDTIME 02/10/22 03/20/25 03/19/25 History sertraline 25 mg tablet 25 mg PO DAILY 10/03/22 03/20/25 03/19/25 History cholecalciferol (vitamin D3) 25 50 mcg PO DAILY 01/03/25 03/20/25 03/19/25 History mcg (1,000 unit) tablet omeprazole 40 mg capsule,delayed 40 mg PO DAILY@0630 01/03/25 03/20/25 03/19/25 History release apixaban 5 mg tablet (Eliquis) 5 mg PO BID 02/20/25 03/20/25 03/19/25 History sodium zirconium cyclosilicate 5 5 g PO MOWEFR 03/12/25 03/20/25 Unknown History gram oral powder packet (Lokelma) Physical Exam Vital Signs and Narrative: Vital Signs: Last Vital Signs Temp 97.7 F 03/20/25 14:01 Pulse 64 03/20/25 15:36 Resp 12 03/20/25 15:36 BP 85/42 L 03/20/25 15:36 Pulse Ox 98 03/20/25 15:36 O2 Del Method Room Air 03/20/25 15:36 BMI result Body Mass Index 27.9 General: AO X 3, no acute distress Resp: diminshed bilateral, no accessory muscles used CVS: S1,S2,RRR, murmur GI: soft, non tender, non distended Neuro: motor grossly intact, alert Results Labs 03/20/25 12:25 03/20/25 12:25 Labs: Laboratory Results - last 24 hr 03/20/25 03/20/25 03/20/25 12:25 12:37 13:03 MCV 98.6 H MCH 34.5 H MCHC 35.0 RDW 14.7 Plt Count 251 MPV 10.5 Immature Gran % (Auto) 0.6 H Neut % (Auto) 81.3 H Lymph % (Auto) 7.5 L [place] % (Auto) 8.0 Eos % (Auto) 2.0 Baso % (Auto) 0.6 Lymph # (Auto) 0.5 L [place] # (Auto) 0.5 Eos # (Auto) 0.1 Baso # (Auto) 0.0 Abs Immat Gran (auto) 0.04 H Absolute Neuts (auto) 5.4 Absolute Nucleated RBC 0.000 Nucleated RBC % (auto) 0.0 VBG pH 7.48 H VBG pCO2 28 VBG pO2 67 VBG HCO3 21 L VBG O2 Saturation 91.0 VBG Base Excess -0.5 Anion Gap 28 H Estim Creat Clear Calc 6.4 Estimated GFR 4 Random Glucose 122 H Lactic Acid 2.4 H* Calcium 8.4 Magnesium 2.2 Total Bilirubin 0.5 Direct Bilirubin 0.2 AST 36 ALT 37 Alkaline Phosphatase 76 C-Reactive Protein 9.49 H B-Natriuretic Peptide 8515 H Total Protein 7.2 Albumin 4.0 Influenza Type A (PCR) NEGATIVE Influenza Type B (PCR) NEGATIVE RSV RNA Qual (PCR) NEGATIVE SARS-CoV-2 RNA (RT-PCR) NEGATIVE Blood Type A Positive Antibody Screen NEGATIVE Imaging Radiologist's Impressions: Impressions Chest X-Ray 03/20/25 12:02 IMPRESSION: Cardiomegaly and suspected pulmonary vascular congestion which is improved from the prior. Also, there is evidence of decreasing pleural effusions. Electronically signed by: Leobardo Newby MD 03/20/2025 12:25 PM EDT RP Assessment and Plan (1) Aortic stenosis: Status: Acute Plan 69M PMH HTN, HLD, ESRD on HD, s/p AVR, hypothryoid, SBO, presented with sob Dyspnea due to severe aortic stenosis, NSTEMI Discussed with Cardiology, hold Eliquis, no anticoagulation for now, follow up official echo report and Cardiology Follow up repeat troponin Continue statin Acute on chronic blood loss anemia Transfused 1 unit PRBC, monitor PPI End-stage renal disease on hemodialysis Nephro Asymptomatic hypotension Not due to sepsis ? Hypovolemia Continue midodrine, recheck after transfusion Hypertension Not on antihypertensives due to hypotension Hypothyroid Levothyroxine Recent pneumonia will continue Levaquin Suspicious findings on previous CT chest Repeat CT imaging after completion of treatment DVT prophylaxis-heparin subQ Full code Quality Stroke Does the patient have a stroke diagnosis?: No VTE Prior VTE?: No VTE Risk Level:: Medical - moderate - high VTE Device Contraindication: Treatment Not Indicated VTE Drug Contraindication: N/A - Med Ordered
--- NOTE | 2025-03-20 17:00 | CA_ITS ---
Transthoracic Echocardiogram Patient (Last, First, Middle): Milan Angeles C Gender: Male Date of : 1955 Age: 69 Procedure Date: 03/20/2025 Procedure Type: Transthoracic Echocardiogram Location: ER Height: 180.34 cm Weight: 90.27 kg BSA: 2.10 m2 Heart Rate: 73 bpm BP: 92 / 47 mmHg Blender Helper: VH/RC Referring MD: Chris Messer MD Symptoms: Hypotension Study Quality: Adequate ECG Rhythm: Sinus Conclusions: - Normal left ventricular cavity size. There is severely increased left ventricular wall thickness. The left ventricular systolic function is low normal. The visually estimated ejection fraction is between 50-55%. - Elevated filling pressures. - Mildly increased right ventricular cavity size. There is normal right ventricular systolic function. - Bioprosthetic aortic valve dysfunction. There is moderate calcification of the aortic valve. There is severe aortic valve stenosis. The peak aortic velocity is 5.02 m/s. The mean gradient is 61 mmHg. The aortic valve area is 0.83 cm2. There is trace (trivial) aortic valve regurgitation. - Moderately elevated right atrial pressure. Mild pulmonary hypertension is present. Findings Left Ventricle Normal left ventricular cavity size. There is severely increased left ventricular wall thickness. The left ventricular systolic function is low normal. The visually estimated ejection fraction is between 50-55%. Regional wall motion abnormalities can not be excluded due to suboptimal endocardial definition. Abnormal diastolic function is noted. Spectral Doppler is indicative of a pseudonormal filling pattern. Elevated filling pressures. Right Ventricle Mildly increased right ventricular cavity size. There is normal right ventricular systolic function. Atria The left atrium is moderately dilated. The right atrium is moderately dilated. Aortic Valve Bioprosthetic aortic valve dysfunction. There is moderate calcification of the aortic valve. There is severe aortic valve stenosis. The peak aortic velocity is 5.02 m/s. The mean gradient is 61 mmHg. The aortic valve area is 0.83 cm2. There is trace (trivial) aortic valve regurgitation. Mitral Valve There is moderate mitral annular calcification. There is trace mitral valve regurgitation. There is no mitral valve stenosis. Pulmonic Valve The pulmonic valve is likely normal. Tricuspid Valve Normal tricuspid valve structure. There is trace tricuspid valve regurgitation. The right ventricular systolic pressure is 42 mmHg. Moderately elevated right atrial pressure. Mild pulmonary hypertension is present. Great Vessels All visible segments of the aorta are normal in size. Venous The inferior vena cava is normal in size. Pericardium/Pleural There is a trivial pericardial effusion. Prior Study Comparison Changes noted compared to prior study dated: 07/21/2023. Bioprosthetic AV dysfunction with elevated gradients and severe stenosis. Gradients are exaggerated probably due to anemia. Measurements 2D Linear Measurements IVSd: 1.50 0.6-0.9/0.6-1.0 cm LVIDd: 5.64 3.9-5.3/4.2-5.9 cm LVIDd Index: 2.69 2.4-3.2/2.2-3.1 cm/m2 LVIDs: 3.77 2.0-3.6 cm LVPWd: 1.54 0.7-1.1 cm LA Diam: 5.40 2.7-3.8/3.0-4.0 cm LAIDs Index: 2.57 1.5-2.3 cm/m2 LV Mass: 493.55 67-162/88-224 g LV Mass Index: 235.02 43-95/49-115 g/m2 LVOT Diam: 2.10 3.0+(-)1.3 cm 2D Systolic Function EF 4C: 62.60 >55% EF 2C: 52.40 >55% EF BiP: 57.20 >55% Mitral Valve MV VTI: 0.51 MV Pk Ghulam: 2.04 MV Mn Ghulam: 0.96 MV Pk Grad: 17.00 MV Mn Grad: 5.00 MV Pk E: 1.60 MV PK A: 0.95 MV Decel Time: 175.00 E/A: 1.70 E'Lateral: 4.25 E'Medial: 4.00 E/E' Med: 40.00 E/E' Lat: 37.60 PHT: 51.00 MVA PHT: 4.31 MVA Continuity: 2.35 Decel Bucks: 9.16 Aortic Valve AoV Pk Ghulam: 5.02 AoV Mn Ghulam: 3.69 AoV VTI: 1.43 AoV Pk Grad: 101.00 Aov Mn Grad: 61.00 EDDI Cont.VTI: 0.83 LVOT LVOT Pk Ghulam: 1.32 LVOT Mn Ghulam: 0.87 LVOT VTI: 0.35 LVOT Pk Grad: 7.00 LVOT Mn Grad: 4.00 LVOT Diam: 2.10 LVOT Area: 3.46 Diastolic Function MV Pk E: 1.60 MV Pk A: 0.95 E/A: 1.70 E'Medial: 4.00 E/E' Med: 40.00 E' Laterial: 4.25 E/E' Lat: 37.60 Right Ventricle TAPSE (mm): 19.40 TVS' Ghulam: 9.68 Tricuspid Valve TR Pk Ghulam: 2.92 TR Pk Grad: 34.00 RA Press: 8.00 RVSP: 42.00 Great Vessels Aorta Sinus of Valsalva: 3.60 2.0-3.5 cm Ao Asc: 3.80 2.1-3.4 cm Pulmonary Veins Pulm Vein S/D 0.70 Pulmonary Valve PV Pk Ghulam: 1.33 Peak PV Grad: 7.00 Updated in Other Vendor System with Status of Final Chris Messer MD electronically signed on 03/20/2025 4:44:06 PM with status of Final
--- NOTE | 2025-03-20 17:17 | PM.DS ---
DS: Providers Provider Date of Service: 03/20/25 Date of admission: 03/20/25 15:40 Date of discharge: 03/20/25 Primary care physician: Alberto Melo MD Consults: 03/20/25 13:57 Consult to Cardiology Stat Consulting Provider: [facility] Reason for consultation: dyspnea, abnormal EKG and troponin Has provider been notified: Yes 03/20/25 16:00 Consult to Cardiology Routine Consulting Provider: [facility] Reason for consultation: , nstemi Has provider been notified: Yes 03/20/25 16:02 Consult to Nephrology Routine Consulting Provider: [facility] Reason for consultation: esrd DS: Diagnosis Discharge Diagnosis (1) Aortic stenosis: Status: Acute DS: Summary Hospital Course Hospital Course: from initial hpi: 69M PMH HTN, HLD, ESRD on HD, s/p AVR, hypothryoid, SBO, presented with sob. Patient had been admitted to [facility] 03/12/2025 to 03/19/2025 for gi bleed due to duodenitis and cecal dieulefoy lesion, pneumonia. At time of discharge was feeling better and ambulating with walker he was not interested in going to [facility] facility so he went home to assisted living at which point he started to have shortness of breath with minimal exertion and even at rest so he decided to come back to ED. in the ED noted to have troponin of over 8000, ischemic changes on EKG, asymptomatic hypotension, hemoglobin slightly lower at 7.6, echo with significant aortic stenosis. hospital course: Patient was admitted for dyspnea due to severe aortic stenosis and NSTEMI. Case was discussed with Cardiology recommended holding apixaban and transferring to [facility] due to severe aortic valve dysfunction. For acute on chronic blood loss anemia was transfused 1 unit PRBC. For end-stage renal disease he is on hemodialysis and follows with [facility] [place]. For asymptomatic hypotension this was not due to sepsis likely hypovolemia and is also on midodrine. Likely related to his aortic stenosis. For hypothyroidism continue levothyroxine. For recent pneumonia has 4 more doses of levofloxacin. Repeat CT chest should be performed after completion of treatment to rule out underlying malignancy. Time Attestation Discharge Coordination Time (in mins): 33 Quality: Safe Use of Opioids Does Pt have an Active Cancer Diagnosis on the Problem List?: No Quality: Stroke Does the patient have a stroke diagnosis?: No Physical Exam Vital Signs: Vital Signs: Last Vital Signs Temp 97.7 F 03/20/25 14:01 Pulse 64 03/20/25 15:36 Resp 12 03/20/25 15:36 BP 85/42 L 03/20/25 15:36 Pulse Ox 98 03/20/25 15:36 O2 Del Method Room Air 03/20/25 15:36 BMI result Body Mass Index 27.9 GENERAL APPEARANCE: in no acute distress, pleasant. NECK: no carotid bruit, no jugular venous distention. SKIN: no suspicious lesions, warm and dry. HEART: Systolic murmur aortic area, regular rate and rhythm. LUNGS: Crackles at right base. ABDOMEN: soft, nontender. EXTREMITIES: no edema. PERIPHERAL PULSES: equal. NEUROLOGIC: No gross deficits, AAO X 3 DS: Data Data Completed and Pending Completed studies during hospitalization [Text1]: Procedures Drainage of Right Pleural Cavity with Drainage Device, Percutaneous Approach (10/28/22) Extraction of Right Inguinal Lymphatic, Percutaneous Approach, Diagnostic (04/23/20) Fluoroscopy of Superior Vena Cava, Guidance (10/28/22) Insertion of Infusion Device into Right Atrium, Percutaneous Approach (03/12/23) Insertion of Infusion Device into Superior Vena Cava, Percutaneous Approach (07/18/23) Insertion of Tunneled Vascular Access Device into Chest Subcutaneous Tissue and Fascia, Percutaneous Approach (07/18/23) Introduction of Remdesivir Anti-infective into Peripheral Vein, Percutaneous Approach, [employer] 5 (07/18/23) Performance of Urinary Filtration, Intermittent, Less than 6 Hours Per Day (02/20/25) Removal of Infusion Device from Great Vessel, External Approach (10/28/22) Removal of Infusion Device from Great Vessel, Percutaneous Approach (03/12/23) Removal of Tunneled Vascular Access Device from Trunk Subcutaneous Tissue and Fascia, Open Approach (07/18/23) Transfusion of Nonautologous Red Blood Cells into Peripheral Vein, Percutaneous Approach (03/12/23) Ultrasonography of Superior Vena Cava, Guidance (07/18/23) Labs on day of discharge: Laboratory Results - last 24 hr 03/20/25 03/20/25 03/20/25 12:25 12:37 13:03 WBC 6.6 RBC 2.20 L Hgb 7.6 L Hct 21.7 L MCV 98.6 H MCH 34.5 H MCHC 35.0 RDW 14.7 Plt Count 251 MPV 10.5 Immature Gran % (Auto) 0.6 H Neut % (Auto) 81.3 H Lymph % (Auto) 7.5 L Sumter % (Auto) 8.0 Eos % (Auto) 2.0 Baso % (Auto) 0.6 Lymph # (Auto) 0.5 L Sum[place] # (Auto) 0.5 Eos # (Auto) 0.1 Baso # (Auto) 0.0 Abs Immat Gran (auto) 0.04 H Absolute Neuts (auto) 5.4 Absolute Nucleated RBC 0.000 Nucleated RBC % (auto) 0.0 Hold Purple Top VBG pH 7.48 H VBG pCO2 28 VBG pO2 67 VBG HCO3 21 L VBG O2 Saturation 91.0 VBG Base Excess -0.5 Sodium 136 Potassium 5.5 H Chloride 92 L Carbon Dioxide 22 Anion Gap 28 H BUN 100 H Creatinine 12.53 H* Estim Creat Clear Calc 6.4 Estimated GFR 4 Random Glucose 122 H Lactic Acid 2.4 H* Calcium 8.4 Magnesium 2.2 Total Bilirubin 0.5 Direct Bilirubin 0.2 AST 36 ALT 37 Alkaline Phosphatase 76 Troponin I High Sens 8776.6 H* D C-Reactive Protein 9.49 H B-Natriuretic Peptide 8515 H Total Protein 7.2 Albumin 4.0 Hold Red Top Hold Yellow Top Influenza Type A (PCR) NEGATIVE Influenza Type B (PCR) NEGATIVE RSV RNA Qual (PCR) NEGATIVE SARS-CoV-2 RNA (RT-PCR) NEGATIVE Blood Type A Positive Antibody Screen NEGATIVE 03/20/25 17:14 WBC RBC Hgb Hct MCV MCH MCHC RDW Plt Count MPV Immature Gran % (Auto) Neut % (Auto) Lymph % (Auto) Sumter % (Auto) Eos % (Auto) Baso % (Auto) Lymph # (Auto) Sumter # (Auto) Eos # (Auto) Baso # (Auto) Abs Immat Gran (auto) Absolute Neuts (auto) Absolute Nucleated RBC Nucleated RBC % (auto) Hold Purple Top SEE NOTE VBG pH VBG pCO2 VBG pO2 VBG HCO3 VBG O2 Saturation VBG Base Excess Sodium Potassium Chloride Carbon Dioxide Anion Gap BUN Creatinine Estim Creat Clear Calc Estimated GFR Random Glucose Lactic Acid Calcium Magnesium Total Bilirubin Direct Bilirubin AST ALT Alkaline Phosphatase Troponin I High Sens C-Reactive Protein B-Natriuretic Peptide Total Protein Albumin Hold Red Top See Note Hold Yellow Top See Note Influenza Type A (PCR) Influenza Type B (PCR) RSV RNA Qual (PCR) SARS-CoV-2 RNA (RT-PCR) Blood Type Antibody Screen Discharge Plan Discharge Anticipated Discharge Date/Time: 03/20/25 17:16 Patient Disposition: Xfer Acute [facility] Hospital Discharge Diagnosis: Referrals: Alberto Melo MD [Primary Care Provider, Internal Medicine] - 1 Week Discharge Medications: Continued levothyroxine 75 mcg Tablet 75 mcg PO DAILY@0600 atorvastatin 40 mg tablet 40 mg PO BEDTIME sertraline 25 mg tablet 25 mg PO DAILY Lokelma 5 gram powder in packet 5 g PO MOWEFR Rx Instructions: Take 1 packet three times per week on non-dialysis days MWF, per [facility] levofloxacin 500 mg Tablet 500 mg PO Q48H Qty: 5 0RF midodrine 10 mg Tablet 10 mg PO TID Qty: 270 0RF omeprazole 40 mg capsule,delayed release(DR/EC) 40 mg PO DAILY@0630 cholecalciferol (vitamin D3) 25 mcg (1,000 unit) tablet 50 mcg PO DAILY Discontinued Eliquis 5 mg tablet 5 mg PO BID Discharge Orders: Discharge Order (Routine); Ordered 03/20/25 Ordered By: Paul Welch Diet: Advance to usual diet Activity on Discharge: As tolerated Stand Alone Forms: Patient Portal Discharge page Print Language: Slovenian Care Plan Goals: recovery Health Concerns: Plan of Treatment: transfer to [facility] Assessment: see above
[2025-03-20] MEDS: 0.9 % Sodium Chloride Flush 3 ML SYRINGE IVFLUSH (17:25)
[2025-03-20 17:42] LABS: ~Lactic Acid-LAB USE ONLY 1.8 mmol/L (0.5-2.0)
[2025-03-20 18:14] LABS: Troponin-I High Sensitivity 6558.4 ng/L (<3.5-35.0)
--- NOTE | 2025-03-20 18:58 | PC.NURSE ---
Update given to pt mother Karie about pt being transferred to [facility]. This RN attempted to call report to [facility]- placed on hold for >10 min. Will re-attempt at later time. Report given to EMS.
== END 2025-03-20 23:00 | disposition short-term general hospital (02) | DRG 280 ==
LOC: HO.ED 15:46 → HO.EDOVER 15:52
PROVIDERS: Admitting Provider Internal Medicine; Emergency Provider Emergency Medicine; PCP Family Medicine; Visit Provider Internal Medicine
DX: T82.857A Stenosis of other cardiac prosthetic devices, implants and grafts, initial encounter (principal); J18.9 Pneumonia, unspecified organism; I21.4 Non-ST elevation (NSTEMI) myocardial infarction; N18.6 End stage renal disease; I13.2 Hypertensive heart and chronic kidney disease with heart failure and with stage 5 chronic kidney disease, or end stage renal disease; D62 Acute posthemorrhagic anemia; Y71.2 Prosthetic and other implants, materials and accessory cardiovascular devices associated with adverse incidents; E11.22 Type 2 diabetes mellitus with diabetic chronic kidney disease; K22.70 Barrett's esophagus without dysplasia; E03.9 Hypothyroidism, unspecified; I50.9 Heart failure, unspecified; I95.9 Hypotension, unspecified; E86.1 Hypovolemia; Z99.2 Dependence on renal dialysis; Z20.822 Contact with and (suspected) exposure to COVID-19; Z86.14 Personal history of Methicillin resistant Staphylococcus aureus infection; Z91.158 Patient's noncompliance with renal dialysis for other reason; Z87.891 Personal history of nicotine dependence; Z79.01 Long term (current) use of anticoagulants; Z79.890 Hormone replacement therapy; Z79.899 Other long term (current) drug therapy
CPT/HCPCS: 36415; 71045; 80048; 80076; 82803; 83605; 83735; 83880; 84484; 85025; 86140; 86850; 86900; 86901; 87040; 87637; 93005; 93306; 99285; J0696; J1644

== ENCOUNTER → 2025-03-20 11:48 | Outpatient (BNV) | payer OTHER, SELFPAY | PROVIDERS: Emergency Provider Emergency Medicine; PCP Family Medicine; Visit Provider Radiology Diagnostic Radiology | DX: J90 Pleural effusion, not elsewhere classified (principal); I51.7 Cardiomegaly | CPT/HCPCS: 71045 ==

== ENCOUNTER → 2025-03-20 12:26 | Outpatient (BNV) | payer OTHER, SELFPAY | PROVIDERS: Emergency Provider Emergency Medicine; PCP Family Medicine; Visit Provider Internal Medicine Cardiovascular Disease | DX: I95.9 Hypotension, unspecified (principal); Z95.2 Presence of prosthetic heart valve; I27.20 Pulmonary hypertension, unspecified; T82.857A Stenosis of other cardiac prosthetic devices, implants and grafts, initial encounter; I51.7 Cardiomegaly; R79.89 Other specified abnormal findings of blood chemistry; R94.31 Abnormal electrocardiogram [ECG] [EKG] | CPT/HCPCS: 93010; 93306; 99223 ==

== ENCOUNTER → 2025-03-20 15:40 | Outpatient (BNV) | payer OTHER, SELFPAY | PROVIDERS: Admitting Provider Internal Medicine; Emergency Provider Emergency Medicine; PCP Family Medicine; Visit Provider Internal Medicine | DX: I35.0 Nonrheumatic aortic (valve) stenosis (principal) | CPT/HCPCS: 99236; 99499 ==

== ENCOUNTER 2025-04-11 12:32 | Inpatient (IN) | payer OTHER, SELFPAY ==
[2025-04-11] VITALS (11 sets, daily range): BP systolic 118–149; BP diastolic 40–62; PULSE 69–78; RESP 14–20; TEMP 36.3–37; O2SAT 98–100; BMI 28.7
--- NOTE | 2025-04-11 | ECG_ITS ---
Test Reason : SOB Blood Pressure : */* mmHG Vent. Rate : 69 BPM Atrial Rate : 69 BPM P-R Int : 208 ms QRS Dur : 100 ms QT Int : 422 ms P-R-T Axes : 31 35 122 degrees QTcB Int : 452 ms Sinus rhythm with Premature atrial complexes Cannot rule out Inferior infarct (cited on or before 20-Mar-2025) ST & T wave abnormality, consider lateral ischemia Abnormal ECG When compared with ECG of 20-Mar-2025 12:08, Sinus rhythm has replaced Junctional rhythm Serial changes of Inferior infarct Present Referred By: Lei Oseguera Electronically Signed By: Chris Messer
--- NOTE | ~2025-04-11 | XR_ITS ---
EXAMINATION: XR CHEST CLINICAL INFORMATION: sob COMPARISON: 03/20/2025, 03/15/2025. TECHNIQUE: 2 views of the chest were obtained. FINDINGS: Prior median sternotomy. Electronic device overlies the left midlung. There is mild cardiac enlargement. TAVR in place. Mediastinal and hilar contours appear normal. Aortic mural calcifications. Lungs demonstrate suspected minimal interstitial pulmonary edema, improved from the prior radiograph. No consolidations. There is no pneumothorax. Cannot exclude tiny effusions given the appearance. There is no focal osseous or soft tissue abnormality. XR/XR chest 2V IMPRESSION: 1. Mild cardiomegaly and minimal interstitial pulmonary edema suspected. No focal pneumonia. 2. Prior median sternotomy. 3. TAVR in place. Electronically signed by: Olegario Sumner MD 04/11/2025 01:12 PM EDT
--- NOTE | 2025-04-11 13:24 | ED.GENADULT ---
HPI - General Adult General Chief complaint: Dyspnea Stated complaint: Difficult breathing Time Seen by Provider: 04/11/25 12:42 History of Present Illness ED Provider: Ana Rosa WANG narrative: The patient is a 69-year-old male with a history of hypertension, hyperlipidemia, end-stage renal disease on hemodialysis. He also has a history of aortic stenosis and had open heart surgery for an aortic valve replacement with a bioprosthetic valve about 2 years ago. He has a history of atrial fibrillation and was on apixaban until recently. He has a GI bleed few weeks ago that was thought to be secondary to duodenitis and a cecal Dieulafoy's lesion. Most recently he had significant shortness of breath and an NSTEMI because of worsening aortic stenosis of his bioprosthetic valve. He was seen at this hospital 3 weeks ago and admitted with a chief complaint of shortness of breath and an elevated troponin. He was transferred on March 20 to [facility]. At [facility] he underwent a TAVR on March 29. He was discharged on March 31. At discharge he returned to his assisted living facility, [facility], where he has been living for over a year. At discharge from [facility] he was taken off anticoagulation because he was in sinus rhythm and had had a recent upper GI bleed. The patient had dialysis yesterday. The patient says that over the past several days, and even essentially since the time that he left [facility] he has continued to have what he describes as severe exertional dyspnea. He says he can not walk across a room without feeling short of breath. He gets short of breath putting his clothes away or doing simple tasks around his assisted living apartment. Today he spoke to his family about these symptoms and they all encouraged him to return to the hospital. He called an ambulance and was brought to the hospital. Related Data Home Medications ?Medication ?Instructions ?Recorded ?Confirmed levothyroxine 75 mcg tablet 75 mcg PO DAILY@0600 06/27/20 03/20/25 atorvastatin 40 mg tablet 40 mg PO BEDTIME 02/10/22 03/20/25 sertraline 25 mg tablet 25 mg PO DAILY 10/03/22 03/20/25 cholecalciferol (vitamin D3) 25 50 mcg PO DAILY 01/03/25 03/20/25 mcg (1,000 unit) tablet omeprazole 40 mg capsule,delayed 40 mg PO DAILY@0630 01/03/25 03/20/25 release sodium zirconium cyclosilicate 5 5 g PO MOWEFR 03/12/25 03/20/25 gram oral powder packet (Melanikelct) Previous Rx's ?Medication ?Instructions ?Recorded levofloxacin 500 mg tablet 500 mg PO Q48H #5 tabs 03/19/25 midodrine 10 mg tablet 10 mg PO TID #270 tabs 03/19/25 Allergies Allergy/AdvReac Type Severity Reaction Status Date / Time Penicillins Allergy Unknown UNKWN Verified 04/11/25 12:43 Review of Systems Review of Systems: Yes all other systems are reviewed and are negative [facility], [facility] Past Medical History Medical History Hyperkalemia Hypothyroidism MSSA bacteremia Adult failure to thrive Anemia Staphylococcal pneumonia Pleural effusion Anasarca associated with disorder of kidney Congestive heart failure Membranous nephrosis Aortic stenosis 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 Social History Social History Household Members: Other Housing: Assisted Living Facility Do you presently have visiting nurse or other home services: Yes Alcohol intake: former Comment: rings appropriately Patient Tobacco Use Status: Former Tobacco user Tobacco use type: Cigarette Years Smoked: 30 Smoked in Last 30 Days: No e-Cigarette/Vaping Use: Never Used Second Hand Smoke Exposure: No Use of substances other than those prescribed or required for medical reasons: No Advance Directives: Yes Advance Directives on File: Yes Advance Directives Date on File: 07/30/23 Do you have a plan to hurt others: No Plan service: No Current occupational status: unemployed and disabled Cognitive needs: No Hearing needs: No Vision needs: No Physical Exam ED Vital Signs: Vital Signs - 24 hr 04/11/25 12:39 04/11/25 15:10 Temperature 98.5 F 98.5 F Pulse Rate 72 71 Respiratory Rate 20 16 Blood Pressure 118/48 L 138/48 L Pulse Oximetry 100 100 Oxygen Delivery Method Room Air Room Air BMI result Body Mass Index 28.7 Const Other: The patient is a chronically ill-appearing 69-year-old male who was awake and alert. He does not appear acutely ill. He is very talkative. At rest he looks comfortable. However he does seem short of breath when changing positions in the bed. Orientation/consciousness: patient oriented x3 HENMT Other: The face is symmetrical. ?Mucous membranes moist. Eyes Other: Pupils are round equal, conjunctivae are clear, extraocular movements intact Neck Other: No lymphadenopathy. The patient has prominent superficial veins which seem full. Resp Effort & Inspection: normal respiratory effort Cardio Other: 3/6 systolic murmur Rate: regular rate Rhythm: regular rhythm Heart sounds: S1 normal heart sound present and S2 normal heart sound present GI Other: The abdomen is soft and nontender. The patient has dark brown stool. I did not feel it was true melena. However it was sent for Hemoccult testing and was positive. Skin Other: The skin is dry and unremarkable Neuro General: patient oriented x3, tone normal, moves all extremities, no focal motor deficits and CN's II-XI intact bilaterally Extrem Other: There is no calf swelling or tenderness. No asymmetry. No peripheral edema. Medications Administered Discontinued Medications Generic Name Dose Route Start Last Admin Trade Name Freq PRN Reason Stop Dose Admin Pantoprazole Sodium 80 mg 04/11/25 15:05 04/11/25 16:03 Pantoprazole Sodium 40 Mg/10 Ml Vial IVPUSH 04/11/25 15:06 80 mg ONCE ONE Administration Medical Decision Making Medical Decision Making MDM Narrative: The patient is a 69-year-old male with multiple medical problems including chronic renal failure on dialysis and significant valvular heart disease who recently had revision of his aortic valve with a TAVR on March 29 (he had previously had a bioprosthetic valve placed about 2 years ago). The patient was discharged from [facility] 11 days ago on March 31 back to his assisted living facility. Today's lab work shows a significant anemia with a hemoglobin of 5.6 and a hematocrit of 17.2. According to [facility] records his hemoglobin on March 31 was 7.6 and his hematocrit was 22.5. Although the patient initially seemed to imply that his dyspnea on exertion was very chronic I think it is probably more acute than he is admitting to. I think his dyspnea on exertion is probably at least largely related to his anemia today. His stool is dark brown (not actual melena) but is heme-positive. I suspect that his anemia secondary to a slow upper GI bleed. He has a history of a known Dieulafoy's lesion. The patient was consented for a blood transfusion. He was given IV pantoprazole. We initiated blood transfusion in the emergency department. He has remained hemodynamically stable. He will be admitted to the hospitalist service. Lab Data 04/11/25 13:34 04/11/25 13:34 Labs: Lab Results 04/11/25 04/11/25 04/11/25 Range/Units 13:34 15:08 15:31 WBC 4.6 L (4.8-10.8) X10*3/uL RBC 1.60 L D (4.60-5.80) X10*6/uL Hgb 5.6 L* D (14.0-18.0) g/dl Hct 17.2 L* D (42.0-52.0) % MCV 107.5 H (80.0-98.0) fL MCH 35.0 H (27.0-33.0) pg MCHC 32.6 (31.0-36.0) g/dl RDW 16.7 H (11.0-16.0) % Plt Count 167 D (160-400) X10*3/uL MPV 10.0 (9.4-12.4) fL Immature Gran % (Auto) 0.4 (0.0-0.4) % Neut % (Auto) 66.1 (45-73) % Lymph % (Auto) 11.3 L (20-40) % Hendry % (Auto) 18.4 H (2-11) % Eos % (Auto) 3.2 (0-4) % Baso % (Auto) 0.6 (0-2) % Lymph # (Auto) 0.5 L (1.2-4.9) X10*3/uL Hendry # (Auto) 0.9 (0.1-1.2) X10*3/uL Eos # (Auto) 0.2 (0.0-0.4) X10*3/uL Baso # (Auto) 0.0 (0.0-0.2) X10*3/uL Abs Immat Gran (auto) 0.02 (0.00-0.03) X10*3/uL Absolute Neuts (auto) 3.1 (2.0-8.3) x10*3/uL Absolute Nucleated RBC 0.000 (0.0-0.012) X10*3/uL Nucleated RBC % (auto) 0.0 (0.0-0.2) /100WBC Sodium 138 (135-145) mmol/L Potassium 5.7 H (3.3-5.1) mmol/L Chloride 92 L (96-108) mmol/L Carbon Dioxide 33 H (22-29) mmol/L Anion Gap 19 (12-20) BUN 46 H (9-16) mg/dL Creatinine 8.60 H* (0.5-1.4) mg/dL Estim Creat Clear Calc 9.4 Estimated GFR 6 Random Glucose 86 (60-115) mg/dL Calcium 9.2 D (8.4-10.2) mg/dL Total Bilirubin 0.5 (0.0-1.0) mg/dL Direct Bilirubin 0.2 (0.0-0.5) mg/dL AST 68 H (5-37) U/L ALT < 6 (0-40) U/L Alkaline Phosphatase 78 (39-117) U/L Troponin I High Sens 53.9 H D (<3.5-35.0) ng/L NT-Pro-B Natriuret Pep 37599.4 H (<300) pg/mL Total Protein 7.5 (6.5-8.0) g/dL Albumin 4.4 (3.5-5.0) g/dL Stool Occult Blood POSITIVE (NEGATIVE) COVID-19 (CYRUS) Negative (Negative) COVID-19 Clin Com See Note Influenza Type A (DAGMAR) Negative (Negative) Influenza Type B (DAGMAR) Negative (Negative) Influenza A & B Note See Note Blood Type A Positive Antibody Screen NEGATIVE Crossmatch See Detail Independent Interpretation I performed an independent interpretation of an: EKG Interpretation: EKG at 1247 shows sinus rhythm with premature atrial complexes at 69 beats per minute. No definite ischemic changes. Critical Care Time Critical Care Time Critical Care Time: Yes Total Critical Care Time: 35 Attestation: The patient was critically ill with a high probability of imminent or life-threatening deterioration. ?I spent greater than 30 minutes of discontinuous time evaluating the patient, delivering critical care at the bedside, discussing evaluating data with consultants. ?Critical care time does not include time spent performing separately billable procedures or teaching. ?Time spent performing critical care with 35 minutes. Discharge Plan Discharge Clinical Impression: Severe anemia, Heme positive stool, Dyspnea on exertion, Valvular heart disease Patient Disposition: Admitted As Inpatient
[2025-04-11 13:38] LABS: MANUAL DIFF FLAG NO
[2025-04-11 13:43] LABS: Imm Gran Abs Auto 0.02 X10*3/uL (0.00-0.03); Imm Gran Pct Auto 0.4 % (0.0-0.4); Lymphocytes Absolute Auto 0.5 X10*3/uL (1.2-4.9); Mean Corpuscular HGB Conc 32.6 g/dl (31.0-36.0); Mean Corpuscular Hemoglobin 35.0 pg (27.0-33.0); Mean Corpuscular Volume 107.5 fL (80.0-98.0); NRBC Abs Auto 0.000 X10*3/uL (0.0-0.012); NRBC Pct Auto 0.0 /100WBC (0.0-0.2); Platelet Count 167 X10*3/uL (160-400); Red Blood Count 1.60 X10*6/uL (4.60-5.80); White Blood Count 4.6 X10*3/uL (4.8-10.8)
[2025-04-11 13:49] LABS: Hemoglobin 5.6 g/dl (14.0-18.0)
[2025-04-11 13:50] LABS: Hematocrit 17.2 % (42.0-52.0)
[2025-04-11 13:56] LABS: Anion Gap 19 (12-20); Blood Urea Nitrogen 46 mg/dL (9-16); Calcium 9.2 mg/dL (8.4-10.2); Carbon Dioxide 33 mmol/L (22-29); Chloride 92 mmol/L (96-108); Creatinine Clr Calc Pharmacy 9.4; Estimated Glomerular Filt Rate 6; Potassium 5.7 mmol/L (3.3-5.1); Sodium 138 mmol/L (135-145)
[2025-04-11 14:15] LABS: COVID-19 Test Negative (Negative); IDNOW Serial# 6674DD1D
[2025-04-11 14:31] LABS: Alanine Aminotransferase < 6 U/L (0-40); Albumin Level 4.4 g/dL (3.5-5.0); Alkaline Phosphatase 78 U/L (39-117); Aspartate Amino Transferase 68 U/L (5-37); IDNOW Serial# 08D9AD1C; Influenza B2 Negative (Negative); Total Protein 7.5 g/dL (6.5-8.0)
[2025-04-11 14:36] LABS: Troponin-I High Sensitivity 53.9 ng/L (<3.5-35.0)
[2025-04-11 14:53] LABS: NT Pro B Type Natriuretic Pept 52223.4 pg/mL (<300)
[2025-04-11 15:19] LABS: OBS Int Ctl Valid YES; OBS Lot 0124; OBS1 POSITIVE (NEGATIVE)
--- OUTSIDE RECORDS SUMMARY | 2025-04-11 15:52 | XMS_ITS | Encounter Summary ---
Author Organization [facility] Address [address] [place] [phone] Phone Care Team Providers Care Bar Staff Name Role Phone Segundo Tapia MD Primary Care Provider [phone] Encounter Details Date Type Department Care Team (Late st Contact Info) Description 03/06/2025 TCM in Dialysis Clinic [facility] [address] [phone] Kvng Solano MD [address] [phone] Social History Tobacco Use Types Packs/Day Years Used Date Smoking Tobacco: Former Smokeless Tobacco: Former Alcohol Use Standard Drinks/Week Comments Never 0 (1 standard drink = 0.6 oz pur e alcohol) Sex and Gender Information Value Date Recorded Sex Assigned at Not on file Legal Sex Male 4:58 PM EST Gender Identity Not on file Sexual Orientation Not on file documented as of this encounter Progress Notes * Kvng Solano MD - 03/06/2025 12:00 AM EDT Patient: [place] Angeles : 1955 Note Type: Dialysis TCM Service Date: 03/06/2025 The patient was seen for a adke-lq-yoke visit as part of Transitional Care Management services. Attending Gun Mechanic: KVNG SOLANO MD Dialysis Location: [facility] Schedule: Shift: 2 INTERACTIVE CONTACT Contact with the patient or caregiver was made or attempted within 2 business days of discharge - details in the medical record. HOSPITALIZATION SUMMARY Patient transitioned from: Hospital Patient transitioned to: Home Admit Date: 02/21/2025 Discharge Date: 02/22/2025 Discharged info reviewed: Followed-up on or reviewed need for pending tests/treatments as noted HOME MEDICATIONS Discharge med list reviewed - changes reconciled and discussed with patient. PHYSICAL EXAM Exam performed. Vital Signs Reviewed. CV - Blood pressure noted. No edema. EXT - No ulcers. CARE COORDINATION Post-discharge follow-up appointments reviewed with the patient. VISIT DIAGNOSES CPT Code 73183 - High complexity, seen 8-14 days post discharge or moderate complexity, seen days of discharge. N18.6 End stage renal disease Signed by: KVNG SOLANO MD on 03/07/2025 at 07:36:01 AM Transcribed by: KVNG SOLANO MD on 03/07/2025 at 07:36:01 AM documented in this encounter Plan of Treatment Not on file documented as of this encounter Visit Diagnoses Not on filedocumented in this encounter Care Teams Bar Staff Relationship Specialty Start Date End Date Segundo Tapia MD [address] [place] [address] [id number] [place] PCP - General Internal Medicine 11/21/20 documented as of this encounter
--- OUTSIDE RECORDS SUMMARY | 2025-04-11 15:52 | XMS_ITS | Clinical Summary ---
Author Organization [facility] Address [address] [place] [phone] Phone Care Team Providers Care Routing Equipment Tender Name Role Phone Segundo Tapia MD Primary Care Provider [phone] Allergies Active Allergy Reactions Criticality Noted Date Comments Penicillins Other (see comments) 09/23/2020 Medications spironolactone (ALDACTONE) 25 MG tablet Take 1 tablet by mouth 1 (one) time each day Active torsemide (DEMADEX) 100 MG tablet Take 60 tablets by mouth in the morning and 60 tablets in the evening. Active Januvia 100 MG tablet Take 100 mg by mouth 1 (one) time each day 021 Active glipiZIDE (GLUCOTROL XL) 5 MG 24 hr tablet Take 10 mg by mouth 1 (one) time each day 020 Active amLODIPine (NORVASC) 5 MG tablet Take 5 mg by mouth 1 (one) time each day 021 Active metOLazone (ZAROXOLYN) 2.5 MG tablet Take 2.5 mg by mouth 1 (one) time each day 021 Active bisacodyl (DULCOLAX) 5 MG EC tablet Take 5 mg by mouth 1 (one) time each day if needed for constipation Do not crush, chew, or split. Active lisinopril 2.5 MG tablet 022 Active ergocalciferol 1.25 MG (39665 UT) capsule TAKE 1 CAPSULE BY MOUTH ONCE WEEKLY. 12 capsule 023 Active sevelamer carbonate (RENVELA) 800 MG tablet TAKE 2 TABLETS BY MOUTH DAILY IN THE MONRING AND 2 TABLETS AT NOON AND 2 TABLETS IN THE EVENING. TAKE WITH MEALS, SWALLOW TABLET WHOLE DO NOT CRUSH, BREAK, OR CHEW. 168 tablet Active GNP Antacid Ultra Strength 1000 MG chewable tablet CHEW 1 TABLET BY MOUTH 3 TIMES DAILY WITH MEALS. 84 tablet Active losartan (COZAAR) 50 MG tablet TAKE 1 TABLET BY MOUTH DAILY. 28 tablet Active apixaban (Eliquis) 5 MG tablet TAKE 1 TABLET BY MOUTH TWICE DAILY 60 tablet Active Sodium Zirconium Cyclosilicate (Lokelma) 5 g pack TAKE 1 PACKET 3 TIMES PER WEEK ON NON-DIALYSIS DAYS (WEDNESDAY, WEDNESDAY AND WEDNESDAY) 30 each 1 025 2024 Active sertraline (ZOLOFT) 25 MG tablet TAKE 1 TABLET BY MOUTH ONCE DAILY 28 tablet Active levothyroxine (SYNTHROID, LEVOTHROID) 75 MCG tablet TAKE 1 TABLET BY MOUTH ONCE DAILY 28 tablet Active atorvastatin (LIPITOR) 40 MG tablet TAKE 1 TABLET BY MOUTH DAILY AT BEDTIME 28 tablet Active omeprazole (PriLOSEC) [address] capsule TAKE (1) CAPSULE BY MOUTH DAILY 28 capsule Active apixaban (Eliquis) 5 MG tablet TAKE 1 TABLET BY MOUTH TWICE DAILY 60 tablet 025 2024 Discontinued sertraline (ZOLOFT) 25 MG tablet TAKE 1 TABLET BY MOUTH ONCE DAILY 28 tablet 025 2024 Discontinued levothyroxine (SYNTHROID, LEVOTHROID) 75 MCG tablet TAKE 1 TABLET BY MOUTH ONCE DAILY 28 tablet 025 2024 Discontinued atorvastatin (LIPITOR) 40 MG tablet TAKE 1 TABLET BY MOUTH DAILY AT BEDTIME 28 tablet 025 2024 Discontinued omeprazole (PriLOSEC) [address] capsule TAKE (1) CAPSULE BY MOUTH DAILY 28 capsule 025 2024 Discontinued Active Problems Problem Noted Date Diagnosed Date Stage 5 chronic kidney disease 06/09/2022 Chronic kidney disease, stage 4 (severe) Type 2 diabetes mellitus wit h diabetic chronic kidney disease 11/21/2020 Renal osteodystrophy 09/24/2020 Cerebral palsy 09/23/2020 Stage 3b chronic kidney disease 09/23/2020 Congestive heart failure 09/23/2020 Essential hypertension 09/23/2020 Hyperlipidemia 09/23/2020 Nephrotic syndrome 09/23/2020 Type 2 diabetes mellitus 09/23/2020 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 Resolved Problems Problem Noted Date Diagnosed Date Resolved Date 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 09/23/2020 09/23/2020 Encounters Date Type Department Care Team Description 03/23/2025 Refill [facility] [address] [place] [address] Kvng Solano MD 03/23/2025 Refill [facility] [place] [address] [facility] [address] [place] [address] Tone Russo MD 03/14/2025 Orders Only [facility] [address] [phone] Jarocho Ribeiro MD 03/06/2025 TCM in Dialysis Clinic [facility] [address] [phone] Kvng Solano MD 03/06/2025 Treatment [facility] [address] [address] Kvng Solano MD End stage renal disease; Dependence on renal dialysis 03/01/2025 Treatment [facility] [address] [place] [address] Kvng Solano MD End stage renal disease; Dependence on renal dialysis 02/23/2025 Refill [facility] [address] [address] Jarocho Ribeiro MD 02/23/2025 Refill [facility] [address] [phone] Kvng Solano MD 02/10/2025 Treatment [facility] [address] [address] Kvng Solano MD End stage renal disease; Dependence on renal dialysis 02/06/2025 Treatment [facility] [address] [phone] Kvng Solano MD End stage renal disease; Dependence on renal dialysis 02/01/2025 Treatment [facility] [address] [address] Kvng Solano MD End stage renal disease; Dependence on renal dialysis 01/26/2025 Refill [facility] [address] [phone] Jarocho Ribeiro MD 01/26/2025 Refill [facility] [address] [address] Kvng Solano MD 01/18/2025 Treatment [facility] [address] [phone] Kvng Solano MD End stage renal disease; Dependence on renal dialysis 01/11/2025 Treatment [facility] [address] [address] Kvng Solano MD End stage renal disease; Dependence on renal dialysis from Last 3 Months Social History Tobacco Use Types Packs/Day Years Used Date Smoking Tobacco: Former Smokeless Tobacco: Former Tobacco Cessation:Counseling Given: No Alcohol Use Standard Drinks/Week Comments Never 0 (1 standard drink = 0.6 oz pur e alcohol) Sex and Gender Information Value Date Recorded Sex Assigned at Not on file Legal Sex Male 4:58 PM EST Gender Identity Not on file Sexual Orientation Not on file Last Filed Vital Signs Vital Sign Reading Time Taken Comments Blood Pressure 146/85 06/09/2022 1:33 PM EST Pulse 78 06/09/2022 1:33 PM EST Temperature - - Respiratory Rate - - Oxygen Saturation 99% 06/09/2022 1:33 PM EST Inhaled Oxygen Concentration - - Weight 130 kg (286 lb 3.2 oz) 06/09/2022 1:33 PM EST Height - - Body Mass Index - - Plan of Treatment Health Maintenance Due Date Last Done Comments Pneumococcal Vaccine: 50+ Ye ars (1 of 2 - PCV) 10/31/1974 Hepatitis B Vaccine (1 of 5 - Risk Dialysis 4-dose series) 1975 Colorectal Cancer Screening: Annual FOBT 10/31/2004 Colorectal Cancer Screening: Colonoscopy 10/31/2004 Colorectal Cancer Screening: Sigmoidoscopy 10/31/2004 Diabetes: Ophthalmology Exam 08/19/2020 Diabetes: Pedal Pulse Checked 08/19/2020 Diabetes: Sensory Foot Exam 08/19/2020 Diabetes: Visual Foot Exam 08/19/2020 Influenza Vaccine (#1) 2025 Diabetes: Hemoglobin A1C 04/18/2025 025, 10/19/2024, 07/27/2024, Additional history exists Procedures Procedure Name Priority Date/Time Associated Diagnosis Comments HEMOGLOBIN Routine 04/05/2025 3:00 AM EDT FERRITIN Routine 04/03/2025 3:00 AM EDT TRANSFERRIN SATURATION Routine 3:00 AM EDT ELECTROLYTE PANEL Routine 04/03/2025 3:0 0 AM EDT PROTEIN, TOTAL, SERUM Routine 04/03/2025 3:00 AM EDT MAGNESIUM Routine 04/03/2025 3:00 AM EDT LIH (HC) Routine 04/03/2025 3:00 AM EDT GLUCOSE, RANDOM Routine 04/03/2025 3:00 AM EDT LACTATE DEHYDROGENASE Routine 04/03/2025 3:00 AM EDT AST Routine 04/03/2025 3:00 AM EDT BUN/CREATININE RATIO Routine 04/03/2025 3:00 AM EDT CREATININE, SERUM Routine 04/03/2025 3:0 0 AM EDT BILIRUBIN, TOTAL Routine 04/03/2025 3:00 AM EDT ALKALINE PHOSPHATASE Routine 04/03/2025 3:00 AM EDT ALT Routine 04/03/2025 3:00 AM EDT CALCIUM PHOSPHORUS PRODUCT, ADJUSTED (HC) Routine 04/03/2025 3:00 AM EDT CBC AND DIFFERENTIAL Routine 04/03/2025 3:00 AM EDT KT/V NATURAL LOG, URR (HC) Routine 04/03/2025 3:00 AM EDT ELECTROLYTE PANEL Routine 03/14/2025 6:5 7 PM EDT HEMOGLOBIN Routine 03/08/2025 3:00 AM EDT TRANSFERRIN SATURATION Routine 3:00 AM EDT PROTEIN, TOTAL, SERUM Routine 02/22/2025 3:00 AM EDT MAGNESIUM Routine 02/22/2025 3:00 AM EDT LIH (HC) Routine 02/22/2025 3:00 AM EDT CREATININE, SERUM Routine 02/22/2025 3:0 0 AM EDT BILIRUBIN, TOTAL Routine 02/22/2025 3:00 AM EDT ELECTROLYTE PANEL Routine 02/22/2025 3:0 0 AM EDT GLUCOSE, RANDOM Routine 02/22/2025 3:00 AM EDT LACTATE DEHYDROGENASE Routine 02/22/2025 3:00 AM EDT AST Routine 02/22/2025 3:00 AM EDT ALT Routine 02/22/2025 3:00 AM EDT BUN/CREATININE RATIO Routine 02/22/2025 3:00 AM EDT CALCIUM PHOSPHORUS PRODUCT, ADJUSTED (HC) Routine 02/22/2025 3:00 AM EDT ALKALINE PHOSPHATASE Routine 02/22/2025 3:00 AM EDT FERRITIN Routine 02/22/2025 3:00 AM EDT CBC AND DIFFERENTIAL Routine 02/22/2025 3:00 AM EDT KT/V NATURAL LOG, URR (HC) Routine 02/22/2025 3:00 AM EDT PHOSPHATE ( PHOSPHORUS) Routine 02/06/2025 3:00 AM EDT LIH (HC) Routine 02/06/2025 3:00 AM EDT HEMOGLOBIN Routine 02/03/2025 3:00 AM EDT COLLECTION DATE (HC) Routine 02/03/2025 3:00 AM EDT HEMOGLOBIN Routine 02/01/2025 3:00 AM EDT HEMOGLOBIN Routine 01/30/2025 3:00 AM EDT CO2, TOTAL Routine 01/20/2025 3:00 AM EDT LIH (HC) Routine 01/20/2025 3:00 AM EDT HEPATITIS C ABS W/REFLEX RNA DETECTR Routine 01/16/2025 3:00 AM EDT CONFIRMATION TEST HCV Routine 01/16/2025 3:00 AM EDT TRANSFERRIN SATURATION Routine 3:00 AM EDT PROTEIN, TOTAL, SERUM Routine 01/16/2025 3:00 AM EDT ELECTROLYTE PANEL Routine 01/16/2025 3:0 0 AM EDT MAGNESIUM Routine 01/16/2025 3:00 AM EDT LIPID PANEL Routine 01/16/2025 3:00 AM EDT LIH (HC) Routine 01/16/2025 3:00 AM EDT LACTATE DEHYDROGENASE Routine 01/16/2025 3:00 AM EDT GLUCOSE, RANDOM Routine 01/16/2025 3:00 AM EDT BILIRUBIN, TOTAL Routine 01/16/2025 3:00 AM EDT CREATININE, SERUM Routine 01/16/2025 3:0 0 AM EDT ALT Routine 01/16/2025 3:00 AM EDT BUN/CREATININE RATIO Routine 01/16/2025 3:00 AM EDT ALKALINE PHOSPHATASE Routine 01/16/2025 3:00 AM EDT CALCIUM PHOSPHORUS PRODUCT, ADJUSTED (HC) Routine 01/16/2025 3:00 AM EDT AST Routine 01/16/2025 3:00 AM EDT PTH, INTACT Routine 01/16/2025 3:00 AM EDT FERRITIN Routine 01/16/2025 3:00 AM EDT HEMOGLOBIN A1C Routine 01/16/2025 3:00 AM EDT CBC AND DIFFERENTIAL Routine 01/16/2025 3:00 AM EDT KT/V NATURAL LOG, URR (HC) Routine 01/16/2025 3:00 AM EDT from Last 3 Months Results * (ABNORMAL) Hemoglobin (04/05/2025 3:00 AM EDT) Only the most recent of5 resultswithin the time period is included. Hgb 6.5(L) 13.7 - 17.5 g/dL [facility] Hemoglobin x 3 19.5(L) 41.1 - 52.5 g/dL [facility] 04/05/2025 3:00 AM EDT 04/06/2025 1:17 PM EDT us Kvng Solano MD LAB BLOOD ORDERABLES Final Result [facility] [address] [place] [address] * LIH (04/03/2025 3:00 AM EDT) Only the most recent of5 resultswithin the time period is included. Lipemia Normal Normal [facility] Icterus Normal Normal [facility] Hemolysis Normal Normal [facility] 04/03/2025 3:00 AM EDT 04/04/2025 1:54 PM EDT us Kvng Solano MD LAB HISTORICA [id number] RESULTS Final Result Performing Organization Address City/[facility]/ZIP Co de Phone Number [facility] [address] [place] [address] * (ABNORMAL) Kt/V Natural Log, URR (04/03/2025 3:00 AM EDT) Only the most recent of3 resultswithin the time period is included. Treatment Time 235 min [facility] Pre-Weight, lb 90.5 kg [facility] Post-Weight, lb 89.4 kg [facility] Ultrafiltration Rate 3 <=13 mL/kg/hr [facility] Comment: Recommend achieving Ultrafiltration Rate (UFR) <=10 mL/kg/hr References: Kathryn BAPTISTE et al. Kidney Int. 2010; 79(2):250-257 BUN Post Dialysis 22 7 - 25 mg/dL [facility] BUN 85(H) 7 - 25 mg/dL [facility] UREA REDUCTION RATIO (%) 74 >=65 % [facility] Kt/V Natural Log 1.52 >=1.2 [facility] 04/03/2025 3:00 AM EDT 04/04/2025 1:54 PM EDT Kvng Solano MD LAB HISTORICA [id number] RESULTS Final Result Performing Organization Address [facility] Co de Phone Number [facility] [address] [place] [address] * (ABNORMAL) Calcium Phosphorus Product, Adjusted (04/03/2025 3:00 AM EDT) Only the most recent of3 resultswithin the time period is included. Albumin 5.1 3.6 - 5.4 g/dL [facility] Calcium 9.7 8.6 - 10.3 mg/dL [facility] Phosphorus, Serum 5.4(H) 2.5 - 5.0 mg/dL [facility] Ca*PO4 52.4 <55.0 mg2/dL2 [facility] Calcium, Adjusted Total 9.7 8.6 - 10.3 mg/dL [facility] CA*PO4 CORRCTD 52.4 <55.0 mg2/dL2 [facility] 04/03/2025 3:00 AM EDT 04/04/2025 1:54 PM EDT us Kvng Solano MD LAB HISTORICA [id number] RESULTS Final Result Performing Organization Address [facility] de Phone Number [facility] [address] [place] [address] * BUN/CREATININE RATIO (04/03/2025 3:00 AM EDT) Only the most recent of3 resultswithin the time period is included. Pathologist [facility] BUN/Creatinine Ratio 6.8 <=23.0 [facility] 04/03/2025 3:00 AM EDT 04/04/2025 1:54 PM EDT us Kvng Solano MD LAB HISTORICA [id number] RESULTS Final Result Performing Organization Address [facility] de Phone Number [facility] [address] [place] [address] * (ABNORMAL) TSAT (04/03/2025 3:00 AM EDT) Only the most recent of3 resultswithin the time period is included. Pathologist [facility] Iron 112 65 - 175 ug/dL [facility] Transferrin 190(L) 215 - 365 mg/dL [facility] TIBC 266 211 - 406 ug/dL [facility] Iron Saturation (TSat) 42 22 - 52 % [facility] 04/03/2025 3:00 AM EDT 04/04/2025 1:54 PM EDT us Kvng Solano MD LAB BLOOD ORDERABLES Final Result Performing Organization Address [facility] de Phone Number [facility] [address] [place] [address] * (ABNORMAL) CBC and Differential (04/03/2025 3:00 AM EDT) Only the most recent of3 resultswithin the time period is included. DIFFERENTIAL MANUAL, 2 Not Indicated [facility] White Blood Cells 9.0 4.2 - 9.1 K/uL [facility] RBC 2.16(L) 4.63 - 6.08 M/uL [facility] Hgb 7.7(L) 13.7 - 17.5 g/dL [facility] Hemoglobin x 3 23.1(L) 41.1 - 52.5 g/dL [facility] Hematocrit 22.1(L) 40.1 - 51.0 % [facility] MCV 102.3(H) 79.0 - 92.2 fL [facility] MCH 35.6(H) 25.7 - 32.2 pg [facility] MCHC 34.8 32.3 - 36.5 g/dL [facility] RDW 14.7(H) 11.6 - 14.4 % [facility] Platelets 236 163 - 337 K/uL [facility] MPV 11.1 9.1 - 13.0 fL [facility] Neutrophils Relative 80.6(H) 34.0 - 67.9 % [facility] Lymphocytes Relative 6.0(L) 21.8 - 53.1 % [facility] Monocytes 9.8 5.3 - 12.2 % [facility] Eosinophils Relative 2.2 0.8 - 7.0 % [facility] Basophils Relative 0.7 0.2 - 1.2 % [facility] Immature Granulocytes 0.7 0.0 - 1.0 % [facility] 04/03/2025 3:00 AM EDT 04/04/2025 2:20 PM EDT Kvng Solano MD LAB BLOOD ORDERABLES Final Result [facility] [address] [place] [address] * (ABNORMAL) ALT (04/03/2025 3:00 AM EDT) Only the most recent of3 resultswithin the time period is included. ALT (SGPT) <7(L) 10 - 49 U/L [facility] 04/03/2025 3:00 AM EDT 04/04/2025 1:54 PM EDT us Kvng Solano MD LAB BLOOD ORDERABLES Final Result Performing Organization Address [facility] Co de Phone Number [facility] [address] [place] [address] * AST (04/03/2025 3:00 AM EDT) Only the most recent of3 resultswithin the time period is included. AST (SGOT) 22 <34 U/L [facility] 04/03/2025 3:00 AM EDT 04/04/2025 1:54 PM EDT us Kvng Solano MD LAB BLOOD ORDERABLES Final Result Performing Organization Address [facility] de Phone Number [facility] [address] [place] [address] * Protein, total (04/03/2025 3:00 AM EDT) Only the most recent of3 resultswithin the time period is included. Total Protein 8.0 6.4 - 8.9 g/dL [facility] 04/03/2025 3:00 AM EDT 04/04/2025 1:54 PM EDT us Kvng Solano MD LAB BLOOD ORDERABLES Final Result Performing Organization Address [facility] de Phone Number [facility] [address] [place] [address] * Alkaline phosphatase (04/03/2025 3:00 AM EDT) Only the most recent of3 resultswithin the time period is included. Alkaline Phosphatase 87 46 - 116 U/L [facility] 04/03/2025 3:00 AM EDT 04/04/2025 1:54 PM EDT us Kvng Solano MD LAB BLOOD ORDERABLES Final Result Performing Organization Address [facility] Co de Phone Number [facility] [address] [place] [address] * Magnesium (04/03/2025 3:00 AM EDT) Only the most recent of3 resultswithin the time period is included. Magnesium 2.4 1.9 - 2.7 mg/dL [facility] 04/03/2025 3:00 AM EDT 04/04/2025 1:54 PM EDT us Kvng Solano MD LAB BLOOD ORDERABLES Final Result Performing Organization Address [facility] Co de Phone Number [facility] [address] [place] [address] * (ABNORMAL) Lactate dehydrogenase (04/03/2025 3:00 AM EDT) Only the most recent of3 resultswithin the time period is included. LDH 329(H) 120 - 246 U/L [facility] 04/03/2025 3:00 AM EDT 04/04/2025 1:54 PM EDT Kvng Solano MD LAB BLOOD ORDERABLES Final Result Performing Organization Address [facility] de Phone Number [facility] [address] [place] [address] * (ABNORMAL) Glucose, random (04/03/2025 3:00 AM EDT) Only the most recent of3 resultswithin the time period is included. Glucose 123(H) 70 - 99 mg/dL [facility] Comment: ADA guidelines outline the following fasting glucose ranges: Normal: <100 Prediabetes: 100-125 Diabetes: >125 04/03/2025 3:00 AM EDT 04/04/2025 1:54 PM EDT us Kvng Solano MD LAB BLOOD ORDERABLES Final Result Performing Organization Address [facility] de Phone Number [facility] [address] [place] [address] * (ABNORMAL) Ferritin (04/03/2025 3:00 AM EDT) Only the most recent of3 resultswithin the time period is included. Ferritin 1,854(H) 22 - 322 ng/mL [facility] 04/03/2025 3:00 AM EDT 04/04/2025 1:54 PM EDT Kvng Solano MD LAB BLOOD ORDERABLES Final Result Performing Organization Address City/[facility] Co de Phone Number [facility] [address] [place] [address] * (ABNORMAL) Creatinine, serum (04/03/2025 3:00 AM EDT) Only the most recent of3 resultswithin the time period is included. Creatinine 12.51(H) 0.70 - 1.30 mg/dL [facility] 04/03/2025 3:00 AM EDT 04/04/2025 1:54 PM EDT Kvng Solano MD LAB BLOOD ORDERABLES Final Result Performing Organization Address [facility] Co de Phone Number [facility] [address] [place] [address] * (ABNORMAL) Bilirubin, total (04/03/2025 3:00 AM EDT) Only the most recent of3 resultswithin the time period is included. Total Bilirubin 0.2(L) 0.3 - 1.2 mg/dL [facility] 04/03/2025 3:00 AM EDT 04/04/2025 1:54 PM EDT us Kvng Solano MD LAB BLOOD ORDERABLES Final Result Performing Organization Address City/[facility] Co de Phone Number [facility] [address] [place] [address] * (ABNORMAL) Electrolyte panel (04/03/2025 3:00 AM EDT) Only the most recent of4 resultswithin the time period is included. Sodium 131(L) 136 - 145 mEq/L [facility] Comment:Verified by repeat a nalysis Potassium 5.5(H) 3.4 - 5.0 mEq/L [facility] Chloride 90(L) 98 - 107 mEq/L [facility] Bicarbonate (CO2) 21 21 - 31 mEq/L [facility] Anion Gap 20(H) 3 - 14 mEq/L [facility] 04/03/2025 3:00 AM EDT 04/04/2025 1:54 PM EDT us Kvng Solano MD LAB BLOOD ORDERABLES Final Result Performing Organization Address [facility] de Phone Number [facility] [address] [place] [address] * (ABNORMAL) Phosphorus (02/06/2025 3:00 AM EDT) Phosphorus, Serum 8.6(H) 2.5 - 5.0 mg/dL [facility] 02/06/2025 3:00 AM EDT 02/07/2025 2:08 PM EDT us Kvng Solano MD LAB BLOOD ORDERABLES Final Result Performing Organization Address [facility] de Phone Number [facility] [address] [place] [address] * Collection Date (02/03/2025 3:00 AM EDT) Collection Date See Comment [facility] Comment: Patient sample received may exceed specimen stability, based on the collection date electronically provided. When reviewing patient results, verify collection information and consider specimen stability before acting on any critical or panic results. 02/03/2025 3:00 AM EDT us Kvng Solano MD LAB HISTORICA [id number] RESULTS Final Result Performing Organization Address [facility] Co de Phone Number [facility] [address] [place] [address] * CO2 (01/20/2025 3:00 AM EDT) Pathologist [facility] Bicarbonate (CO2) 24 21 - 31 mEq/L [facility] 01/20/2025 3:00 AM EDT 01/22/2025 12:53 PM EDT us Kvng Solano MD LAB BLOOD ORDERABLES Final Result Performing Organization Address [facility] de Phone Number [facility] [address] [place] [address] * Confirmation Test HCV (01/16/2025 3:00 AM EDT) Pathologist [facility] Hep C Ab Confirmation Not needed [facility] 01/16/2025 3:00 AM EDT 01/17/2025 12:28 PM EDT us Kvng Solano MD LAB BLOOD ORDERABLES Final Result Performing Organization Address [facility] de Phone Number [facility] [address] [place] [address] * HEPATITIS C ABS W/REFLEX RNA DETECTR (01/16/2025 3:00 AM EDT) [facility] Hep C Virus Ab Non-Reacti ve Non-Reacti ve [facility] 01/16/2025 3:00 AM EDT 01/17/2025 12:40 PM EDT us Kvng Solano MD LAB HISTORICA [id number] RESULTS Final Result Performing Organization Address [facility] de Phone Number [facility] [address] [place] [address] * PTH, Intact (01/16/2025 3:00 AM EDT) [facility] PTH, Intact 233 160 - 721 pg/mL [facility] Comment: Suggested (KDIGO) ESRD maintenance range is two to nine times the upper normal limit (80.1 pg/mL) for the laboratory. 01/16/2025 3:00 AM EDT 01/17/2025 12:40 PM EDT us Kvng Solano MD LAB BLOOD ORDERABLES Final Result Performing Organization Address [facility] de Phone Number [facility] [address] [place] [address] * Hemoglobin A1c (01/16/2025 3:00 AM EDT) Hemoglobin A1C 4.7 <5.7 % [facility] Comment: Methodology: Enzymatic Normal: <5.7% Prediabetes: 5.7-6.4% Diabetes: >6.4% Diabetic Glucose Control Evaluation: Therapeutic action suggested at >8.0% ADA recommends a glycemic goal of <7.0% 01/16/2025 3:00 AM EDT 01/17/2025 12:28 PM EDT us Kvng Solano MD LAB BLOOD ORDERABLES Final Result Performing Organization Address [facility] de Phone Number [facility] [address] [place] [address] * (ABNORMAL) Lipid panel (01/16/2025 3:00 AM EDT) Cholesterol 97 mg/dL [facility] Comment: Optimal: <200 Borderline: 200-239 High Risk: >239 Triglycerides 105 mg/dL [facility] Comment: Optimal: <150 Borderline: 150-200 High Risk: >200 HDL 32(L) mg/dL [facility] Comment: Optimal: >59 Borderline: 40-59 High Risk: <40 LDL-Calc 44 mg/dL [facility] Comment: Optimal: <100 Borderline: 100-159 High Risk: >159 VLDL Cholesterol Bravo 21 mg/dL [facility] Comment: Optimal: <30 Borderline: 30-40 High Risk: >40 Chol/HDL Ratio 3.0 [facility] Comment: Optimal: <3.3 High Risk: >6.2 01/16/2025 3:00 AM EDT 01/17/2025 12:40 PM EDT us Kvng Solano MD LAB BLOOD ORDERABLES Final Result [facility] [address] [place] [address] from Last 3 Months Insurance [facility] ([id number]) [facility] ([id number]) Care Teams Routing Equipment Tender Relationship Specialty Start Date End Date Segundo Tapia MD [id number] [place], [place] PCP - General Internal Medicine 11/21/20
--- NOTE | 2025-04-11 17:07 | PM.IMHP ---
History of Present Illness Date of Service: 04/11/25 Chief Complaint: Shortness of breaths 69 year old man with history of end-stage renal disease on dialysis, hypertension, hyperlipidemia, recent TAVR, atrial fibrillation presenting with exertional dyspnea and dark stools. Patient was recently admitted to [facility] and had TAVR done on March 29. He was discharged on March 31 back to his assisted living facility. Since then he has been having shortness of breath and dyspnea on exertion and that is why he ended up coming in. He had dialysis yesterday. Over the last couple of days he has had increased shortness of breath and even walking around he feels short of breath, putting his clothes on. Chest x-ray negative for of focal pneumonia, showing mild cardiomegaly with mild interstitial pulmonary edema and TAVR and place. He was found to be anemic with hemoglobin of 5.6, hematocrit 17.2, potassium 5.7, creatinine 8.60, pro BNP 13465. He was started on IV ppi in the ER. Plan will be to admit for further management and treatment of acute GI bleed and fluid overload. Review of Systems Review of Systems: Denies any recent fever chills or decrease in appetite respiratory see HPI cardiovascular denied chest pain gastrointestinal denies any dysphagia abdominal pain nausea vomiting or diarrhea genitourinary denies any dysuria frequency or hematuria musculoskeletal denies any joint pain or swelling neuropsych denies any weakness or seizures all other systems reviewed are negative [facility] Medical History Hyperkalemia Hypothyroidism MSSA bacteremia Adult failure to thrive Anemia Staphylococcal pneumonia Pleural effusion Anasarca associated with disorder of kidney Congestive heart failure Membranous nephrosis Aortic stenosis 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 Surgical History Hx of colonoscopy H/O aortic valve replacement Social History Household Members: Other Housing: Assisted Living Facility Do you presently have visiting nurse or other home services: Yes Alcohol intake: former Comment: rings appropriately Patient Tobacco Use Status: Former Tobacco user Tobacco use type: Cigarette Years Smoked: 30 Smoked in Last 30 Days: No e-Cigarette/Vaping Use: Never Used Second Hand Smoke Exposure: No Use of substances other than those prescribed or required for medical reasons: No Advance Directives: Yes Advance Directives on File: Yes Advance Directives Date on File: 07/30/23 Do you have a plan to hurt others: No Plan service: No Current occupational status: unemployed and disabled Cognitive needs: No Hearing needs: No Vision needs: No Meds Allergies Allergy/AdvReac Type Severity Reaction Status Date / Time Penicillins Allergy Unknown UNKWN Verified 04/11/25 12:43 Home Medications ?Medication ?Instructions ?Recorded ?Confirmed ?Last Taken ?Type levothyroxine 75 mcg tablet 75 mcg PO DAILY@0600 06/27/20 03/20/25 03/19/25 History atorvastatin 40 mg tablet 40 mg PO BEDTIME 02/10/22 03/20/25 03/19/25 History sertraline 25 mg tablet 25 mg PO DAILY 10/03/22 03/20/25 03/19/25 History cholecalciferol (vitamin D3) 25 50 mcg PO DAILY 01/03/25 03/20/25 03/19/25 History mcg (1,000 unit) tablet omeprazole 40 mg capsule,delayed 40 mg PO DAILY@0630 01/03/25 03/20/25 03/19/25 History release sodium zirconium cyclosilicate 5 5 g PO MOWEFR 03/12/25 03/20/25 Unknown History gram oral powder packet (Lokelma) Physical Exam Vital Signs and Narrative: Vital Signs: Last Vital Signs Temp 98.5 F 04/11/25 15:10 Pulse 71 04/11/25 15:10 Resp 16 04/11/25 15:10 BP 138/48 L 04/11/25 15:10 Pulse Ox 100 04/11/25 15:10 O2 Del Method Room Air 04/11/25 15:10 BMI result Body Mass Index 28.7 Appearing in no acute distress head is normocephalic atraumatic eyes pupils are PERRLA sclera is anicteric mouth throat mucous membranes are intact and moist neck is supple no lymphadenopathy, no JVD noted lung sounds are clear to auscultation heart regular rate rhythm, clear S1, S2 positive bowel sounds, abdomen is soft, nontender neuro patient is alert x3, no focal deficits Results Labs 04/11/25 13:34 04/11/25 13:34 Labs: Laboratory Results - last 24 hr 04/11/25 04/11/25 04/11/25 13:34 15:08 15:31 MCV 107.5 H MCH 35.0 H MCHC 32.6 RDW 16.7 H Plt Count 167 D MPV 10.0 Immature Gran % (Auto) 0.4 Neut % (Auto) 66.1 Lymph % (Auto) 11.3 L Yancey % (Auto) 18.4 H Eos % (Auto) 3.2 Baso % (Auto) 0.6 Lymph # (Auto) 0.5 L Yancey # (Auto) 0.9 Eos # (Auto) 0.2 Baso # (Auto) 0.0 Abs Immat Gran (auto) 0.02 Absolute Neuts (auto) 3.1 Absolute Nucleated RBC 0.000 Nucleated RBC % (auto) 0.0 Anion Gap 19 Estim Creat Clear Calc 9.4 Estimated GFR 6 Random Glucose 86 Calcium 9.2 D Total Bilirubin 0.5 Direct Bilirubin 0.2 AST 68 H ALT < 6 Alkaline Phosphatase 78 Troponin I High Sens 53.9 H D NT-Pro-B Natriuret Pep 99571.4 H Total Protein 7.5 Albumin 4.4 Stool Occult Blood POSITIVE COVID-19 (CYRUS) Negative COVID-19 Clin Com See Note Influenza Type A (DAGMAR) Negative Influenza Type B (DAGMAR) Negative Influenza A & B Note See Note Blood Type A Positive Antibody Screen NEGATIVE Crossmatch See Detail Imaging Radiologist's Impressions: Impressions Chest X-Ray 04/11/25 13:00 IMPRESSION: 1. Mild cardiomegaly and minimal interstitial pulmonary edema suspected. No focal pneumonia. 2. Prior median sternotomy. 3. TAVR in place. Electronically signed by: Olegario Sumner MD 04/11/2025 01:12 PM EDT Assessment and Plan (1) Dyspnea on exertion: Status: Acute Plan 69 year old man admitted for symptomatic anemia with dyspnea on exertion . Symptomatic anemia, unknown etiology 5.6/17.2 admits to dark not black stool 2 units prbc ordered in ED IV PPI check stool occult GI consult check at 10pm tonight, Tx as necessary monitor CBC ESRD on dialysis Follow reg dialysis days renal consult Hyperkalemia has ESRD CAD recently at [facility] for NSTEMI has bioprosthetic Aortic valve s/p TAVR 03/29/25 Continue statin cardiology consultation echo PAF off ac after TAVR due to being in NSR and recent GI bleed Hypothyroidism Continue levothyroxine DVT prophylaxis with SCD boots full code Admitted for GI bleed requiring blood tx, close monitoring and specialty evaluation Med rec pending Quality Stroke Does the patient have a stroke diagnosis?: No VTE Prior VTE?: No VTE Risk Level:: Medical - moderate - high VTE Device Contraindication: N/A - Device Ordered VTE Drug Contraindication: Treatment Not Indicated
--- NOTE | 2025-04-11 21:21 | HO.NURTONUR ---
Pt BIBA from assisted living c/o worsening SOB. ED workup showed hgb 5.6 and pos occult stool, +potassium 5.7 and pro BNP 67320. Pt currently completing 1unit RBC, 2nd unit ordered. Next H&H check @ 2200. Hx: ESRD (on dialysis, LUE, had dialysis yesterday), HTN, HLD, recent TAVR, afib. Chest xr neg for pneumonia, shows mild cardiomegaly with mild interstitial pulmonary edema and TAVR in place. Admit for further management and tx of acute GI bleed and fluid overload. Currently denies CP/dizziness/palpitations.
--- NOTE | 2025-04-11 21:30 | PHA.MEDREC ---
Addendum entered by Yolanda Zarate RPh 04/11/25 21:37: Reviewed by [facility]. Facility had no information on Eliquis, losartan or torsemide. Original Note: Pharmacy Consult ? Medication Reconciliation Pharmacy has completed the medication reconciliation. Spoke with facility and they verbally confirmed pt med list with me over the phone; facility states pt taking both Omeprazole 40mg QD and Pantoprazole 40mg BID, claims shows Omeprazole LF 03/14 and Pantoprazole 40mg LF 03/31
[2025-04-11 22:29] LABS: Hematocrit 18.3 % (42.0-52.0); Hemoglobin 6.2 g/dl (14.0-18.0)
[2025-04-12] VITALS (13 sets, daily range): BP systolic 119–145; BP diastolic 58–62; PULSE 60–74; RESP 16–20; TEMP 36.3–37; O2SAT 96–100
[2025-04-12 03:59] LABS: Mean Corpuscular HGB Conc 34.5 g/dl (31.0-36.0); Mean Corpuscular Hemoglobin 33.0 pg (27.0-33.0); Mean Corpuscular Volume 95.6 fL (80.0-98.0); NRBC Abs Auto 0.000 X10*3/uL (0.0-0.012); NRBC Pct Auto 0.0 /100WBC (0.0-0.2); Platelet Count 156 X10*3/uL (160-400); Red Blood Count 2.03 X10*6/uL (4.60-5.80); White Blood Count 5.0 X10*3/uL (4.8-10.8)
[2025-04-12 04:12] LABS: PTT Heparin Drip 29.3 SEC (53-77.9)
[2025-04-12 04:18] LABS: Anion Gap 20 (12-20); Blood Urea Nitrogen 50 mg/dL (9-16); Calcium 8.8 mg/dL (8.4-10.2); Carbon Dioxide 30 mmol/L (22-29); Chloride 96 mmol/L (96-108); Creatinine Clr Calc Pharmacy 8.2; Estimated Glomerular Filt Rate 5; Potassium 5.1 mmol/L (3.3-5.1); Sodium 141 mmol/L (135-145)
[2025-04-12 04:26] LABS: Hemoglobin 6.7 g/dl (14.0-18.0)
[2025-04-12 04:27] LABS: Hematocrit 19.4 % (42.0-52.0)
--- NOTE | 2025-04-12 07:01 | PM.GICN ---
History of Present Illness Data of Consult Service Date: 04/12/25 Requesting physician: Aaynna Galloway Primary Care Provider: Alberto Melo MD HPI Reason for consult: anemia 69 YM with end-stage renal disease on HD, hypertension, hyperlipidemia, recent TAVR, atrial fibrillation seen at [facility] ED on 03/22/25 with exertional dyspnea and dark stools. Patient was hospitalized at [facility] and had TAVR done on March 29. He was discharged on March 31 back to his assisted living facility. Pt complains of shortness of breath and dyspnea on exertion since discharge. He had dialysis yesterday. Over the last couple of days he has had increased shortness of breath and even walking around he feels short of breath, putting his clothes on. Chest x-ray was negative for of focal pneumonia, showing mild cardiomegaly with mild interstitial pulmonary edema and TAVR and place. He was found to be anemic with hemoglobin of 5.6, hematocrit 17.2, potassium 5.7, creatinine 8.60, pro BNP 88962. He was started on IV ppi in the ER. Pt was admitted for further management and treatment of acute GI bleed and fluid overload. Patient denies symptoms of heartburn, dysphagia, nausea, vomiting, change in appetite or weight. Denies recent change in bowel habits, constipation, diarrhea, He admits to having black stools/ rectal bleeding within the past 2 weeks. Per nursing staff - pt has not had any BM since admitted to the floor. Past smoker and quitted 10 yrs ago - smoked 1/2 to 1 PPD. Patient denies loud snoring or sleep apnea Denies problems with anesthesia in the past. Unsure if he is on chronic anticoagulation - none on his home medication list. Patient denies known family history of colon polyps, colon cancer or other GI malignancies. 03/14/[address] SCAN SHOWED: Hepatomegaly and multiple hypodense hepatic lesions, metastasis cannot be excluded. Medical renal disease without hydronephrosis. Diverticular disease, colonic. Soft tissue fullness/wall thickening intrathoracic esophagus. 03/14/25 EGD AND COLONOSCOPY WERE PERFORMED BY DR. VARGAS: Endoscopy Findings: esophageal mass barretts hiatal hernia gastritis Colonoscopy Findings: dieulafoy diverticulosis colon polyps internal hemorrhoids Plan: Await Pathology results Repeat Colonoscopy with Dr Rodriguez for polyp removal High fiber diet leaflet avoid straining at stool, epsom salts and sitz bath, anusol supps or cream CT chest and abdomen with contrast, may need onc and referral for EUS and thoracics restart anti coagulation tomorrow BIOPSIES SHOWED: A. Duodenum, biopsy: Duodenal mucosa within normal limits. B. Stomach, biopsy: Oxyntic mucosa with mild chronic inactive inflammation; no Helicobacter organisms seen. C. Esophagus, mass, biopsy: - Glandular mucosa with intestinal phenotype and low-grade dysplasia. - Detached fragment of crushed atypical epithelial cells. - No squamous epithelium identified. - Multiple additional levels examined. D. Esophagus, distal and mid, biopsy: - Yee esophagus with extensive low-grade dysplasia and background moderate chronic active inflammation. - Squamous epithelium within normal limits. - Multiple additional levels examined. Comment: Definitive features of malignancy are not identified; however, the extensive dysplasia and focal crushed atypical cells in part C are concerning - an underlying more worrisome process cannot be ruled out. Please correlate with endoscopic and other clinical findings Review of Systems Review of Systems: Denies any recent fever chills or decrease in appetite respiratory see HPI cardiovascular denied chest pain gastrointestinal denies any dysphagia abdominal pain nausea vomiting or diarrhea genitourinary denies any dysuria frequency or hematuria musculoskeletal denies any joint pain or swelling neuropsych denies any weakness or seizures all other systems reviewed are negative [facility] Past Medical History Medical History (Updated 04/12/25 @ 13:46 by Kvng Solano MD) ESRD (end stage renal disease) Hyperkalemia Hypothyroidism MSSA bacteremia Adult failure to thrive Anemia Staphylococcal pneumonia Pleural effusion Anasarca associated with disorder of kidney Congestive heart failure Membranous nephrosis Aortic stenosis 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 Surgical History Surgical History Hx of colonoscopy H/O aortic valve replacement Social History Social History Household Members: Other Housing: Assisted Living Facility Housing Other:: [facility] Do you presently have visiting nurse or other home services: Yes Alcohol intake: former Comment: rings appropriately Patient Tobacco Use Status: Former Tobacco user Tobacco use type: Cigarette Years Smoked: 30 Smoked in Last 30 Days: No e-Cigarette/Vaping Use: Never Used Patient Interested in Nicotine Replacement: No Second Hand Smoke Exposure: No Use of substances other than those prescribed or required for medical reasons: No Currently Displaying Signs/Symptoms of Drug Intoxication Withdrawal: No Have you been hit, kicked, punched, or otherwise hurt by someone within the past year? If so, by whom?: No Do you feel safe in your current relationship?: No Current Relationship Is there a partner from a previous relationship who is making you feel unsafe now?: No Are you made to feel afraid or neglected: No Advance Directives: Yes Advance Directives on File: Yes Advance Directives Date on File: 07/30/23 Do you have a plan to hurt others: No Plan Recently lost weight without trying: No Eating poorly because of decreased appetite: No Nutrition Risks: No Nutritional Risk Poor oral hygiene: No service: No Current occupational status: unemployed and disabled Cognitive needs: No Hearing needs: No Vision needs: No Meds Allergies Allergy/AdvReac Type Severity Reaction Status Date / Time Penicillins Allergy Unknown UNKWN Verified 04/11/25 12:43 Active Medications: Current Medications Acetaminophen (Acetaminophen 325 Mg Tablet) 650 mg PO Q6H PRN PRN Reason: Pain, Mild 1-3,fever,headache Calcium Carbonate (Calcium Carbonate 750 Mg Tab.Chew) 750 mg PO Q4H PRN PRN Reason: Heartburn Magnesium Hydroxide (Milk Of Magnesia 30 Ml Oral.Susp) 30 ml PO DAILY PRN PRN Reason: Constipation Melatonin (Melatonin 3 Mg Tablet) 6 mg PO BEDTIME PRN PRN Reason: Insomnia Ondansetron HCl (Ondansetron Hcl 4 Mg/2 Ml Vial) 4 mg IVPUSH Q8H PRN PRN Reason: Nausea and Vomiting Oxycodone HCl (Oxycodone Hcl Immed Release 5 Mg Tablet) 5 mg PO Q6H PRN PRN Reason: Pain, Severe (Pain Scale 7-10) Sodium Chloride (0.9 % Sodium Chloride Flush 3 Ml Syringe) 3 ml IVFLUSH QSHIFT [facility] Last Admin: 04/12/25 00:16 Dose: Not Given Home Medications ?Medication ?Instructions ?Recorded ?Confirmed ?Last Taken ?Type levothyroxine 75 mcg tablet 75 mcg PO DAILY@0600 06/27/20 04/11/25 03/19/25 History atorvastatin 40 mg tablet 40 mg PO BEDTIME 02/10/22 04/11/25 03/19/25 History sertraline 25 mg tablet 25 mg PO DAILY 10/03/22 04/11/25 03/19/25 History cholecalciferol (vitamin D3) 25 50 mcg PO DAILY 01/03/25 04/11/25 03/19/25 History mcg (1,000 unit) tablet sodium zirconium cyclosilicate 5 5 g PO MOWEFR 03/12/25 04/11/25 Unknown History gram oral powder packet (Lokelma) aspirin 81 mg tablet,delayed 81 mg PO DAILY 04/11/25 04/11/25 Unknown History release calcium carbonate (Antacid Ultra 400 mg PO TID 04/11/25 04/11/25 Unknown History Strength) pantoprazole 40 mg tablet,delayed 40 mg PO BID@0630,1630 04/11/25 04/11/25 Unknown History release sevelamer carbonate 800 mg tablet 1,600 mg PO TID 04/11/25 04/11/25 Unknown History Physical Exam Vital Signs: Vital Signs: Last Vital Signs Temp 98.1 F 04/12/25 02:44 Pulse 70 04/12/25 02:44 Resp 17 04/12/25 02:44 BP 134/62 04/12/25 02:44 Pulse Ox 99 04/12/25 02:45 O2 Del Method Room Air 04/12/25 02:45 BMI result Body Mass Index 28.7 Const: General: no acute distress Nutritional Appearance: overweight Orientation/consciousness: patient oriented x3 Limitations: no limitations HEENT: Head: Yes normal to inspection Ears: hearing grossly normal bilaterally Mouth: Normal oral and palatal mucosa present Eyes: Sclerae: sclerae normal Pupils: Equal, round and reactive pupils present Neck: Neck: Yes normal visual inspection Chest: Chest palpation & inspection: normal inspection of the chest Resp: Effort & Inspection: normal respiratory effort Auscultation: clear to auscultation bilaterally Cardio: Palpation: normal PMI Rate: regular rate Rhythm: regular rhythm Heart sounds: S1 normal heart sound present, S2 normal heart sound present and no murmurs GI: Palpation (GI): Soft to palpation, nontender and No hepatosplenomegaly present Auscultation: normal bowel sounds Rectal Exam - Male: Yes deferred Skin: General skin exam: no rashes or lesions noted Neuro: General: patient oriented x3, gait normal and moves all extremities Cranial nerves: Yes Equal, round and reactive pupils present Psych: Appearance: grossly normal Mental Status: mental status grossly normal Results Labs 04/12/25 12:38 04/12/25 03:41 Labs: Short CBC 04/11/25 04/11/25 04/12/25 Range/Units 13:34 22:11 03:41 WBC 4.6 L 5.0 (4.8-10.8) X10*3/uL Hgb 5.6 L* D 6.2 L* 6.7 L* (14.0-18.0) g/dl Hct 17.2 L* D 18.3 L* 19.4 L* (42.0-52.0) % Plt Count 167 D 156 L (160-400) X10*3/uL BMP 04/11/25 04/12/25 13:34 03:41 Sodium 138 141 Potassium 5.7 H 5.1 Chloride 92 L 96 Carbon Dioxide 33 H 30 H BUN 46 H 50 H Creatinine 8.60 H* 9.89 H* Calcium 9.2 D 8.8 Liver Function 04/11/25 Range/Units 13:34 Total Bilirubin 0.5 (0.0-1.0) mg/dL Direct Bilirubin 0.2 (0.0-0.5) mg/dL AST 68 H (5-37) U/L ALT < 6 (0-40) U/L Alkaline Phosphatase 78 (39-117) U/L Albumin 4.4 (3.5-5.0) g/dL Assessment and Plan (1) Acute on chronic anemia: Status: Acute (2) History of colon polyps: Status: Acute Plan 69 YM with end-stage renal disease on HD, hypertension, hyperlipidemia, recent TAVR, atrial fibrillation seen at [facility] ED on 03/22/25 with exertional dyspnea and dark stools. Patient was hospitalized at [facility] and had TAVR done on March 29. Chest x-ray was negative for of focal pneumonia, showing mild cardiomegaly with mild interstitial pulmonary edema and TAVR and place. He was found to be anemic with hemoglobin of 5.6, hematocrit 17.2, potassium 5.7, creatinine 8.60, pro BNP 67753. Gets HD at [facility]. Acute on chronic anemia possible due to renal disease versus slow GI blood loss from Upper (Erosive esophagitis, PUD, AVMs or gastritis) or Lower (colon polyps, lower GI AVMs) GI source. Recent EGD showed HH and it is esophagus with dysplasia. Colonoscopy showed dieulafoy and colon polyps which were not removed. Pt was transfused 3 U PRBCs overnight and a 4th unit to be transfused during HD. RECOMMENDATIONS: 1. Agree with IV PPI 2. Monitor CBC daily and transfuse prn 3. Patient is scheduled for an upper endoscopy and a colonoscopy on 04/13/2025. Order placed for colon prep. He will need Cardiology clearance for anesthesia. Procedures Date of Service Date of Service: 04/12/25
[2025-04-12] MEDS: 0.9 % Sodium Chloride Flush 3 ML SYRINGE IVFLUSH ×2 (08:35→19:23)
--- NOTE | 2025-04-12 08:41 | MHC.CM.PN ---
Addendum entered by Chloe Clayton 04/12/25 10:43: CORRECTION! Patient is active with [facility], not [facility]. Original Note: CM met with Patient at bedside and addressed IMM with him, providing Patient with the original and a copy has been placed on the chart. Patient lives alone in a [facility] apartment and he was just about to begin services with [facility]. Patient receives his HD Q T//SAT @ [facility] and home/resume said services is the goal. CM has initiated and will follow for dc planning. PCP is Dr. Alberto Melo and Patient will require assist with transport at time of dc.Patient's Mother/Karie is the HCP.
--- NOTE | 2025-04-12 12:00 | CA_ITS ---
Transthoracic Echocardiogram Amended Patient (Last, First, Middle): Milan Angeles C Gender: Male Date of : 1955 Age: 69 Procedure Date: 04/12/2025 Procedure Type: Transthoracic Echocardiogram [place] [facility] [place]: 180.34 cm Weight: 92.99 kg BSA: 2.13 m2 Heart Rate: 67 bpm BP: 135 / 58 mmHg Radio Frequency Engineer: CISCO Referring MD: Brian Willson DO Symptoms: chf Study Quality: Adequate Conclusions: - Normal left ventricular size and systolic function. There is moderately increased left ventricular wall thickness. The visually estimated ejection fraction is between 55-60%. - Mildly increased right ventricular cavity size. There is normal right ventricular systolic function. - The left atrium is moderately dilated. The right atrium is moderately dilated. - A bioprosthetic aortic valve is present. The prosthetic aortic valve appears to be functioning normally. The peak aortic velocity is 2.96 m/s. The mean gradient is 21 mmHg. - There is mild dilatation of the ascending aorta measuring 3.80 cm. Findings Left Ventricle Normal left ventricular size and systolic function. There is moderately increased left ventricular wall thickness. The visually estimated ejection fraction is between 55-60%. There is no evidence of regional wall motion abnormalities. Diastolic function is indeterminate on the basis of available data. Right Ventricle Mildly increased right ventricular cavity size. There is normal right ventricular systolic function. Atria The left atrium is moderately dilated. The right atrium is moderately dilated. Aortic Valve A bioprosthetic aortic valve is present. The prosthetic aortic valve appears to be functioning normally. The peak aortic velocity is 2.96 m/s. The mean gradient is 21 mmHg. The aortic valve area is 1.70 cm2. There is no aortic valve regurgitation. Higher gradients due to anemia. Mitral Valve There is severe mitral annular calcification. There is trace mitral valve regurgitation. There is no mitral valve stenosis. Pulmonic Valve The pulmonic valve was not well visualized. Tricuspid Valve Normal tricuspid valve structure. There is trace tricuspid valve regurgitation. Mildly elevated right atrial pressure. There is no evidence of pulmonary hypertension. Great Vessels There is mild dilatation of the ascending aorta measuring 3.80 cm. Venous The inferior vena cava is dilated and collapses greater than 50% with inspiration. Pericardium/Pleural There is no evidence of pericardial effusion. Prior Study Comparison Changes noted compared to prior study dated: 03/20/2025. s/p TAVR, MG 21 but significantly anemic. Measurements 2D Linear Measurements IVSd: 1.53 0.6-0.9/0.6-1.0 cm LVIDd: 5.54 3.9-5.3/4.2-5.9 cm LVIDd Index: 2.60 2.4-3.2/2.2-3.1 cm/m2 LVIDs: 3.65 2.0-3.6 cm LVPWd: 1.43 0.7-1.1 cm LA Diam: 5.40 2.7-3.8/3.0-4.0 cm LAIDs Index: 2.54 1.5-2.3 cm/m2 LV Mass: 461.86 67-162/88-224 g LV Mass Index: 216.83 43-95/49-115 g/m2 LVOT Diam: 2.20 3.0+(-)1.3 cm 2D Volumes LA Vol: 47.90 2D Systolic Function EF 4C: 65.10 >55% EF 2C: 58.70 >55% EF BiP: 60.20 >55% Mitral Valve MV VTI: 0.60 MV Pk Ghulam: 1.79 MV Mn Ghulam: 1.03 MV Pk Grad: 13.00 MV Mn Grad: 5.00 MV Pk E: 1.55 MV PK A: 1.22 MV Decel Time: 368.00 E/A: 1.30 E'Lateral: 5.66 E'Medial: 5.11 E/E' Med: 30.30 E/E' Lat: 27.40 PHT: 108.00 MVA PHT: 2.04 MVA Continuity: 2.53 Decel Cole: 4.21 Aortic Valve AoV Pk Ghulam: 2.96 AoV Mn Ghulam: 2.18 AoV VTI: 0.66 AoV Pk Grad: 35.00 Aov Mn Grad: 21.00 EDDI Cont.VTI: 1.70 LVOT LVOT Pk Ghulam: 1.23 LVOT Mn Ghulam: 0.91 LVOT VTI: 0.29 LVOT Pk Grad: 6.00 LVOT Mn Grad: 4.00 LVOT Diam: 2.20 LVOT Area: 3.80 Diastolic Function MV Pk E: 1.55 MV Pk A: 1.22 E/A: 1.30 E'Medial: 5.11 E/E' Med: 30.30 E' Laterial: 5.66 E/E' Lat: 27.40 Right Ventricle TAPSE (mm): 20.30 TVS' Ghulam: 12.40 Tricuspid Valve TR Pk Ghulam: 2.42 TR Pk Grad: 23.00 RA Press: 8.00 RVSP: 31.00 Great Vessels Aorta Ao Asc: 3.80 2.1-3.4 cm Pulmonary Veins Pulm Vein S/D 0.70 Updated in Other Vendor System with Status of Final Chris Messer MD electronically signed on 04/23/2025 3:47:34 PM with status of Final
[2025-04-12 13:04] LABS: Hematocrit 21.9 % (42.0-52.0); Hemoglobin 7.6 g/dl (14.0-18.0); Mean Corpuscular HGB Conc 34.7 g/dl (31.0-36.0); Mean Corpuscular Hemoglobin 33.3 pg (27.0-33.0); Mean Corpuscular Volume 96.1 fL (80.0-98.0); NRBC Abs Auto 0.000 X10*3/uL (0.0-0.012); NRBC Pct Auto 0.0 /100WBC (0.0-0.2); Platelet Count 169 X10*3/uL (160-400); Red Blood Count 2.28 X10*6/uL (4.60-5.80); White Blood Count 5.5 X10*3/uL (4.8-10.8)
[2025-04-12 13:16] LABS: INTERNATIONAL NORM RATIO 1.0 (0.9-1.1); Prothrombin Time 11.7 SEC (10.9-12.4)
--- NOTE | 2025-04-12 13:39 | PM.CNCAR ---
History of Present Illness History of Present Illness Date of Service: 04/12/25 Chief complaint: Fluid overload,anemia Narrative: [age] year gentleman with background history of end-stage renal disease on hemodialysis, previous aortic valve replacement approximately 3 years ago with recent presentation with severe aortic valve stenosis of bioprosthetic valve status post transcatheter aortic valve replacement during this month. He was admitted to hospital with GI bleeding previously and was transfused. He is now presenting with shortness of breath and significant anemia of hemoglobin 5. He has been transfused and overall has been feeling better. He was seen on hemodialysis and is saying that he is feeling better than when he came in. He has not noticed any bleeding per se but he is being worked up with GI for potential endoscopy. He had reported history of atrial fibrillation before and was on Eliquis which was discontinued. So far we have not seen any evidence of atrial fibrillation based on his previous EKGs and is off anticoagulation. He was started on aspirin after transcatheter aortic valve replacement which will be held for now 2. 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 Surgical History Surgical History Hx of colonoscopy H/O aortic valve replacement Social History Social History Household Members: Other Housing: Assisted Living Facility Housing Other:: [facility] Do you presently have visiting nurse or other home services: Yes Alcohol intake: former Comment: rings appropriately Patient Tobacco Use Status: Former Tobacco user Tobacco use type: Cigarette Years Smoked: 30 Smoked in Last 30 Days: No e-Cigarette/Vaping Use: Never Used Patient Interested in Nicotine Replacement: No Second Hand Smoke Exposure: No Use of substances other than those prescribed or required for medical reasons: No Currently Displaying Signs/Symptoms of Drug Intoxication Withdrawal: No Have you been hit, kicked, punched, or otherwise hurt by someone within the past year? If so, by whom?: No Do you feel safe in your current relationship?: No Current Relationship Is there a partner from a previous relationship who is making you feel unsafe now?: No Are you made to feel afraid or neglected: No Advance Directives: Yes Advance Directives on File: Yes Advance Directives Date on File: 07/30/23 Do you have a plan to hurt others: No Plan Recently lost weight without trying: No Eating poorly because of decreased appetite: No Nutrition Risks: No Nutritional Risk Poor oral hygiene: No service: No Current occupational status: unemployed and disabled Cognitive needs: No Hearing needs: No Vision needs: No Meds Allergies Allergy/AdvReac Type Severity Reaction Status Date / Time Penicillins Allergy Unknown UNKWN Verified 04/11/25 12:43 Active Medications: Current Medications Acetaminophen (Acetaminophen 325 Mg Tablet) 650 mg PO Q6H PRN PRN Reason: Pain, Mild 1-3,fever,headache Calcium Carbonate (Calcium Carbonate 750 Mg Tab.Chew) 750 mg PO Q4H PRN PRN Reason: Heartburn Magnesium Hydroxide (Milk Of Magnesia 30 Ml Oral.Susp) 30 ml PO DAILY PRN PRN Reason: Constipation Melatonin (Melatonin 3 Mg Tablet) 6 mg PO BEDTIME PRN PRN Reason: Insomnia Ondansetron HCl (Ondansetron Hcl 4 Mg/2 Ml Vial) 4 mg IVPUSH Q8H PRN PRN Reason: Nausea and Vomiting Oxycodone HCl (Oxycodone Hcl Immed Release 5 Mg Tablet) 5 mg PO Q6H PRN PRN Reason: Pain, Severe (Pain Scale 7-10) Polyethylene Glycol/Electrolytes (Peg 3350/Na Sulf,Bicarb,Cl/Kcl 4,000 Ml Soln.Recon) 4,000 ml PO ONCE ONE Stop: 04/12/25 15:01 Sodium Chloride (0.9 % Sodium Chloride Flush 3 Ml Syringe) 3 ml IVFLUSH QSHIFT [facility] Last Admin: 04/12/25 08:35 Dose: 3 ml Home Medications ?Medication ?Instructions ?Recorded ?Confirmed ?Last Taken ?Type levothyroxine 75 mcg tablet 75 mcg PO DAILY@0600 06/27/20 04/11/25 03/19/25 History atorvastatin 40 mg tablet 40 mg PO BEDTIME 02/10/22 04/11/25 03/19/25 History sertraline 25 mg tablet 25 mg PO DAILY 10/03/22 04/11/25 03/19/25 History cholecalciferol (vitamin D3) 25 50 mcg PO DAILY 01/03/25 04/11/25 03/19/25 History mcg (1,000 unit) tablet sodium zirconium cyclosilicate 5 5 g PO MOWEFR 03/12/25 04/11/25 Unknown History gram oral powder packet (Lokelma) aspirin 81 mg tablet,delayed 81 mg PO DAILY 04/11/25 04/11/25 Unknown History release calcium carbonate (Antacid Ultra 400 mg PO TID 04/11/25 04/11/25 Unknown History Strength) pantoprazole 40 mg tablet,delayed 40 mg PO BID@0630,1630 04/11/25 04/11/25 Unknown History release sevelamer carbonate 800 mg tablet 1,600 mg PO TID 04/11/25 04/11/25 Unknown History Physical Exam Vital Signs: Vital Signs: Last Vital Signs Temp 98.1 F 04/12/25 13:21 Pulse 66 04/12/25 13:21 Resp 16 04/12/25 13:21 BP 134/60 04/12/25 13:21 Pulse Ox 100 04/12/25 10:54 O2 Del Method Room Air 04/12/25 10:54 BMI result Body Mass Index 28.7 GENERAL APPEARANCE: in no acute distress, pleasant. NECK: no carotid bruit, no jugular venous distention. SKIN: no suspicious lesions, warm and dry. HEART: Systolic murmur aortic area, regular rate and rhythm. LUNGS: clear to auscultation bilaterally. ABDOMEN: soft, nontender. EXTREMITIES: no edema. PERIPHERAL PULSES: equal. NEUROLOGIC: No gross deficits, AAO X 3 Objective Labs and Meds 04/12/25 12:38 04/12/25 03:41 Lab results: Laboratory Results - last 24 hr 04/11/25 04/11/25 04/11/25 13:34 15:08 15:31 WBC 4.6 L RBC 1.60 L D Hgb 5.6 L* D Hct 17.2 L* D MCV 107.5 H MCH 35.0 H MCHC 32.6 RDW 16.7 H Plt Count 167 D MPV 10.0 Immature Gran % (Auto) 0.4 Neut % (Auto) 66.1 Lymph % (Auto) 11.3 L [place] % (Auto) 18.4 H Eos % (Auto) 3.2 Baso % (Auto) 0.6 Lymph # (Auto) 0.5 L [place] # (Auto) 0.9 Eos # (Auto) 0.2 Baso # (Auto) 0.0 Abs Immat Gran (auto) 0.02 Absolute Neuts (auto) 3.1 Absolute Nucleated RBC 0.000 Nucleated RBC % (auto) 0.0 Smear Path Review SEE NOTE aPTT Heparin Protocol Sodium 138 Potassium 5.7 H Chloride 92 L Carbon Dioxide 33 H Anion Gap 19 BUN 46 H Creatinine 8.60 H* Estim Creat Clear Calc 9.4 Estimated GFR 6 Random Glucose 86 Calcium 9.2 D Total Bilirubin 0.5 Direct Bilirubin 0.2 AST 68 H ALT < 6 Alkaline Phosphatase 78 Troponin I High Sens 53.9 H D NT-Pro-B Natriuret Pep 75224.4 H Total Protein 7.5 Albumin 4.4 Stool Occult Blood POSITIVE COVID-19 (CYRUS) Negative COVID-19 Clin Com See Note Influenza Type A (DAGMAR) Negative Influenza Type B (DAGMAR) Negative Influenza A & B Note See Note Blood Type A Positive Antibody Screen NEGATIVE Crossmatch See Detail 04/11/25 04/12/25 04/12/25 22:11 03:41 12:38 WBC 5.0 5.5 RBC 2.03 L D 2.28 L Hgb 6.2 L* 6.7 L* 7.6 L Hct 18.3 L* 19.4 L* 21.9 L MCV 95.6 D 96.1 MCH 33.0 33.3 H MCHC 34.5 34.7 RDW 22.5 H 21.8 H Plt Count 156 L 169 MPV 9.5 9.8 Immature Gran % (Auto) Neut % (Auto) Lymph % (Auto) [place] % (Auto) Eos % (Auto) Baso % (Auto) Lymph # (Auto) [place] # (Auto) Eos # (Auto) Baso # (Auto) Abs Immat Gran (auto) Absolute Neuts (auto) Absolute Nucleated RBC 0.000 0.000 Nucleated RBC % (auto) 0.0 0.0 Smear Path Review aPTT Heparin Protocol 29.3 L Sodium 141 Potassium 5.1 Chloride 96 Carbon Dioxide 30 H Anion Gap 20 BUN 50 H Creatinine 9.89 H* Estim Creat Clear Calc 8.2 Estimated GFR 5 Random Glucose 90 Calcium 8.8 Total Bilirubin Direct Bilirubin AST ALT Alkaline Phosphatase Troponin I High Sens NT-Pro-B Natriuret Pep Total Protein Albumin Stool Occult Blood COVID-19 (CYRUS) COVID-19 Clin Com Influenza Type A (DAGMAR) Influenza Type B (DAGMAR) Influenza A & B Note Blood Type Antibody Screen Crossmatch Assessment and Plan (1) H/O aortic valve replacement: Status: Acute (2) Severe anemia: Status: Acute Plan Pleasant 69 year gentleman with end-stage renal disease on hemodialysis, previous surgical aortic valve replacement few years ago and recent deterioration of aortic valve possibly due to endocarditis now status post transcatheter aortic valve replacement. He has been significantly anemic in his anemia has worsened and he is here with shortness of breath. Symptoms are due to symptomatic anemia currently. He is intermediate risk for perioperative complications. He will be undergoing endoscopy to understand the cause of his bleeding/anemia. Hold aspirin for now. We will follow along with you. Thank you for allowing me to participate in the care of your patient. Please feel free to contact me if you have any questions. Procedures Date of Service Date of Service: 04/12/25
--- NOTE | 2025-04-12 13:45 | PM.CNNEP ---
History of Present Illness Reason for Consult Consult date: 04/12/25 Chief Complaint Chief complaint: Fluid overload,anemia History of Present Illness Narrative: 69 year old man with history of end-stage renal disease on dialysis, hypertension, hyperlipidemia, recent TAVR, atrial fibrillation, presenting with exertional dyspnea and dark stools. Patient was recently admitted to [facility] and had TAVR done on March 29. He was discharged on March 31 back to his assisted living facility. Since then he has been having shortness of breath and dyspnea on exertion. Last dialysis wednesday. 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 Surgical History Surgical History Hx of colonoscopy H/O aortic valve replacement Social History Social History Household Members: Other Housing: Assisted Living Facility Housing Other:: [facility] Do you presently have visiting nurse or other home services: Yes Alcohol intake: former Comment: rings appropriately Patient Tobacco Use Status: Former Tobacco user Tobacco use type: Cigarette Years Smoked: 30 Smoked in Last 30 Days: No e-Cigarette/Vaping Use: Never Used Patient Interested in Nicotine Replacement: No Second Hand Smoke Exposure: No Use of substances other than those prescribed or required for medical reasons: No Currently Displaying Signs/Symptoms of Drug Intoxication Withdrawal: No Have you been hit, kicked, punched, or otherwise hurt by someone within the past year? If so, by whom?: No Do you feel safe in your current relationship?: No Current Relationship Is there a partner from a previous relationship who is making you feel unsafe now?: No Are you made to feel afraid or neglected: No Advance Directives: Yes Advance Directives on File: Yes Advance Directives Date on File: 07/30/23 Do you have a plan to hurt others: No Plan Recently lost weight without trying: No Eating poorly because of decreased appetite: No Nutrition Risks: No Nutritional Risk Poor oral hygiene: No service: No Current occupational status: unemployed and disabled Cognitive needs: No Hearing needs: No Vision needs: No Meds Allergies Allergy/AdvReac Type Severity Reaction Status Date / Time Penicillins Allergy Unknown UNKWN Verified 04/11/25 12:43 Active Medications: Current Medications Acetaminophen (Acetaminophen 325 Mg Tablet) 650 mg PO Q6H PRN PRN Reason: Pain, Mild 1-3,fever,headache Calcium Carbonate (Calcium Carbonate 750 Mg Tab.Chew) 750 mg PO Q4H PRN PRN Reason: Heartburn Magnesium Hydroxide (Milk Of Magnesia 30 Ml Oral.Susp) 30 ml PO DAILY PRN PRN Reason: Constipation Melatonin (Melatonin 3 Mg Tablet) 6 mg PO BEDTIME PRN PRN Reason: Insomnia Ondansetron HCl (Ondansetron Hcl 4 Mg/2 Ml Vial) 4 mg IVPUSH Q8H PRN PRN Reason: Nausea and Vomiting Oxycodone HCl (Oxycodone Hcl Immed Release 5 Mg Tablet) 5 mg PO Q6H PRN PRN Reason: Pain, Severe (Pain Scale 7-10) Polyethylene Glycol/Electrolytes (Peg 3350/Na Sulf,Bicarb,Cl/Kcl 4,000 Ml Soln.Recon) 4,000 ml PO ONCE ONE Stop: 04/12/25 15:01 Sodium Chloride (0.9 % Sodium Chloride Flush 3 Ml Syringe) 3 ml IVFLUSH QSHIFT [facility] Last Admin: 04/12/25 08:35 Dose: 3 ml Home Medications ?Medication ?Instructions ?Recorded ?Confirmed ?Last Taken ?Type levothyroxine 75 mcg tablet 75 mcg PO DAILY@0600 06/27/20 04/11/25 03/19/25 History atorvastatin 40 mg tablet 40 mg PO BEDTIME 02/10/22 04/11/25 03/19/25 History sertraline 25 mg tablet 25 mg PO DAILY 10/03/22 04/11/25 03/19/25 History cholecalciferol (vitamin D3) 25 50 mcg PO DAILY 01/03/25 04/11/25 03/19/25 History mcg (1,000 unit) tablet sodium zirconium cyclosilicate 5 5 g PO MOWEFR 03/12/25 04/11/25 Unknown History gram oral powder packet (Lokelma) aspirin 81 mg tablet,delayed 81 mg PO DAILY 04/11/25 04/11/25 Unknown History release calcium carbonate (Antacid Ultra 400 mg PO TID 04/11/25 04/11/25 Unknown History Strength) pantoprazole 40 mg tablet,delayed 40 mg PO BID@0630,1630 04/11/25 04/11/25 Unknown History release sevelamer carbonate 800 mg tablet 1,600 mg PO TID 04/11/25 04/11/25 Unknown History Physical Exam Exam Exam: cvs: s1s2, jvp + RS; cta ABd; soft Vital Signs: Last Vital Signs Temp 98.1 F 04/12/25 13:21 Pulse 66 04/12/25 13:21 Resp 16 04/12/25 13:21 BP 134/60 04/12/25 13:21 Pulse Ox 100 04/12/25 10:54 O2 Del Method Room Air 04/12/25 10:54 BMI result Body Mass Index 28.7 Results Lab Results 04/12/25 12:38 04/12/25 03:41 Lab results: Chemistry 04/11/25 04/12/25 13:34 03:41 Sodium 138 141 Potassium 5.7 H 5.1 Carbon Dioxide 33 H 30 H BUN 46 H 50 H Creatinine 8.60 H* 9.89 H* Calcium 9.2 D 8.8 Hematology 04/11/25 04/11/25 04/12/25 13:34 22:11 03:41 WBC 4.6 L 5.0 Hgb 5.6 L* D 6.2 L* 6.7 L* Plt Count 167 D 156 L 04/12/25 12:38 WBC 5.5 Hgb 7.6 L Plt Count 169 Assessment and Plan (1) ESRD (end stage renal disease): Status: Acute (2) Heart failure with preserved ejection fraction: Status: Acute (3) H/O aortic valve replacement: Status: Acute Plan 69-year-old male with a past of HTN HLD, ESRD on, CHF, H/O nephrotic syndrome diabetes, history of small-bowel obstruction, anemia, hypothyroidism, AFib on Eliquis presented to the hospital ESRD: usu TTS scheduledl HD at [facility] HyperK: usu on [facility] on non-HD days to control AFib: usu maintained on Eliquis --now on hold Hypotension: on midodrine 10mg po tid Hypothyroidism: Continue levothyroxine REC: s/p HD today and track K; xfuse to keep Hb > 7.0; extra UF tomorrow as he appears volume up / no pleural effusion noted cont ppi sevelamer when able to take po Procedures Date of Service Date of Service: 04/12/25
[2025-04-12] MEDS: PEG 3350/Na Sulf,Bicarb,Cl/KCL 4,000 ML SOLN.RECON 4000 ML PO (16:55)
--- NOTE | 2025-04-12 17:22 | HO.PM.IMPN ---
Subjective Subjective Date of Service: 04/13/25 Interval History: No acute issues overnight. Appropriate response to transfusion. No overt bleeding Review of Systems Denies chest pain Denies shortness of breath Denies nausea vomiting diarrhea Denies fever chills Physical Exam Vital Signs: Vital Signs: Last Vital Signs Temp 97.6 F 04/12/25 17:00 Pulse 65 04/12/25 17:00 Resp 18 04/12/25 17:00 BP 128/61 04/12/25 17:00 Pulse Ox 98 04/12/25 17:00 O2 Del Method Room Air 04/12/25 17:00 BMI result Body Mass Index 28.7 Const: Other: Awake alert oriented x3 in no acute distress Resp: Other: Clear to auscultation bilaterally ; no rales rhonchi or wheezes Cardio: Other: No S4; positive S1-S2; no S3 murmurs rubs or gallops GI: Other: Soft nontender nondistended normoactive bowel sounds Extrem: Other: No edema bilaterally Objective Data Active Medications Acetaminophen (Acetaminophen 325 Mg Tablet) 650 mg PO Q6H PRN PRN Reason: Pain, Mild 1-3,fever,headache Calcium Carbonate (Calcium Carbonate 750 Mg Tab.Chew) 750 mg PO Q4H PRN PRN Reason: Heartburn Magnesium Hydroxide (Milk Of Magnesia 30 Ml Oral.Susp) 30 ml PO DAILY PRN PRN Reason: Constipation Melatonin (Melatonin 3 Mg Tablet) 6 mg PO BEDTIME PRN PRN Reason: Insomnia Ondansetron HCl (Ondansetron Hcl 4 Mg/2 Ml Vial) 4 mg IVPUSH Q8H PRN PRN Reason: Nausea and Vomiting Oxycodone HCl (Oxycodone Hcl Immed Release 5 Mg Tablet) 5 mg PO Q6H PRN PRN Reason: Pain, Severe (Pain Scale 7-10) Sodium Chloride (0.9 % Sodium Chloride Flush 3 Ml Syringe) 3 ml IVFLUSH QSHIFT [facility] Last Admin: 04/12/25 16:55 Dose: Not Given Documented By: RADHA Non-Admin Reason: Off unit: Dialysis Labs 04/12/25 12:38 04/12/25 03:41 Labs: Laboratory Results - last 24 hr 04/11/25 04/11/25 04/12/25 13:34 15:31 03:41 MCV 95.6 D MCH 33.0 MCHC 34.5 RDW 22.5 H Plt Count 156 L MPV 9.5 Absolute Nucleated RBC 0.000 Nucleated RBC % (auto) 0.0 Smear Path Review SEE NOTE PT INR aPTT Heparin Protocol 29.3 L Anion Gap 20 Estim Creat Clear Calc 8.2 Estimated GFR 5 Random Glucose 90 Calcium 8.8 Blood Type A Positive Antibody Screen NEGATIVE Crossmatch See Detail 04/12/25 12:38 MCV 96.1 MCH 33.3 H MCHC 34.7 RDW 21.8 H Plt Count 169 MPV 9.8 Absolute Nucleated RBC 0.000 Nucleated RBC % (auto) 0.0 Smear Path Review PT 11.7 D INR 1.0 aPTT Heparin Protocol Anion Gap Estim Creat Clear Calc Estimated GFR Random Glucose Calcium Blood Type Antibody Screen Crossmatch Assessment and Plan (1) Acute on chronic blood loss anemia: Status: Acute (2) ESRD on dialysis: Status: Acute (3) Heart failure with preserved ejection fraction: Status: Acute Plan 69 year old man admitted for symptomatic anemia with dyspnea on exertion . 1.Symptomatic anemia -2 units prbc in ED ... will transfuse additional 2 units -IV PPI -appreciate GI consult; we will keep NPO after minute for scope in a.m. 2.ESRD on dialysis -at baseline -renal following 3.CAD -recent NSTEMI... [facility] -has bioprosthetic Aortic valve s/p TAVR 03/29/25 -2D echo pending 4.PAF -anticoagulation held secondary TAVR/NSR /GI bleed -add back anticoagulation when clinically appropriate Pneumatics Full code Requires ongoing hospitalization to track hemoglobin and for endoscopy to determine source of bleeding Quality Stroke Does the patient have a stroke diagnosis?: No VTE Prior VTE?: No VTE Risk Level:: Medical - moderate - high VTE Device Contraindication: N/A - Device Ordered VTE Drug Contraindication: Treatment Not Indicated
[2025-04-13] VITALS (7 sets, daily range): BP systolic 86–134; BP diastolic 40–60; PULSE 61–74; RESP 16–20; TEMP 36.5–36.9; O2SAT 95–100
[2025-04-13 07:41] LABS: MANUAL DIFF FLAG NO
[2025-04-13 07:46] LABS: Hematocrit 25.2 % (42.0-52.0); Hemoglobin 8.5 g/dl (14.0-18.0); Imm Gran Abs Auto 0.03 X10*3/uL (0.00-0.03); Imm Gran Pct Auto 0.7 % (0.0-0.4); Lymphocytes Absolute Auto 0.6 X10*3/uL (1.2-4.9); Mean Corpuscular HGB Conc 33.7 g/dl (31.0-36.0); Mean Corpuscular Hemoglobin 32.7 pg (27.0-33.0); Mean Corpuscular Volume 96.9 fL (80.0-98.0); NRBC Abs Auto 0.000 X10*3/uL (0.0-0.012); NRBC Pct Auto 0.0 /100WBC (0.0-0.2); Platelet Count 157 X10*3/uL (160-400); Red Blood Count 2.60 X10*6/uL (4.60-5.80); White Blood Count 4.4 X10*3/uL (4.8-10.8)
[2025-04-13 08:26] LABS: Anion Gap 20 (12-20); Blood Urea Nitrogen 25 mg/dL (9-16); Calcium 9.2 mg/dL (8.4-10.2); Carbon Dioxide 31 mmol/L (22-29); Chloride 95 mmol/L (96-108); Creatinine Clr Calc Pharmacy 11.1; Estimated Glomerular Filt Rate 8; Potassium 4.8 mmol/L (3.3-5.1); Sodium 141 mmol/L (135-145)
--- NOTE | 2025-04-13 08:31 | PM.GICN ---
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 Surgical History Surgical History Hx of colonoscopy H/O aortic valve replacement Social History Social History Household Members: Other Housing: Assisted Living Facility Housing Other:: [facility] Do you presently have visiting nurse or other home services: Yes Alcohol intake: former Comment: rings appropriately Patient Tobacco Use Status: Former Tobacco user Tobacco use type: Cigarette Years Smoked: 30 e-Cigarette/Vaping Use: Never Used Second Hand Smoke Exposure: No Advance Directives Date on File: 07/30/23 service: No Current occupational status: unemployed and disabled Cognitive needs: No Hearing needs: No Vision needs: No Meds Allergies Allergy/AdvReac Type Severity Reaction Status Date / Time Penicillins Allergy Severe Hives Verified 04/13/25 13:52 Active Medications: Current Medications Acetaminophen (Acetaminophen 325 Mg Tablet) 650 mg PO Q6H PRN PRN Reason: Pain, Mild 1-3,fever,headache Calcium Carbonate (Calcium Carbonate 750 Mg Tab.Chew) 750 mg PO Q4H PRN PRN Reason: Heartburn Magnesium Hydroxide (Milk Of Magnesia 30 Ml Oral.Susp) 30 ml PO DAILY PRN PRN Reason: Constipation Melatonin (Melatonin 3 Mg Tablet) 6 mg PO BEDTIME PRN PRN Reason: Insomnia Ondansetron HCl (Ondansetron Hcl 4 Mg/2 Ml Vial) 4 mg IVPUSH Q8H PRN PRN Reason: Nausea and Vomiting Oxycodone HCl (Oxycodone Hcl Immed Release 5 Mg Tablet) 5 mg PO Q6H PRN PRN Reason: Pain, Severe (Pain Scale 7-10) Sodium Chloride (0.9 % Sodium Chloride Flush 3 Ml Syringe) 3 ml IVFLUSH QSHIFT [facility] Last Admin: 04/12/25 19:23 Dose: 3 ml Home Medications ?Medication ?Instructions ?Recorded ?Confirmed ?Last Taken ?Type levothyroxine 75 mcg tablet 75 mcg PO DAILY@0600 06/27/20 04/16/25 03/19/25 History atorvastatin 40 mg tablet 40 mg PO BEDTIME 02/10/22 04/16/25 03/19/25 History sertraline 25 mg tablet 25 mg PO DAILY 10/03/22 04/16/25 03/19/25 History cholecalciferol (vitamin D3) 25 50 mcg PO DAILY 01/03/25 04/16/25 03/19/25 History mcg (1,000 unit) tablet sodium zirconium cyclosilicate 5 5 g PO MOWEFR 03/12/25 04/16/25 Unknown History gram oral powder packet (Lokelnd) aspirin 81 mg tablet,delayed 81 mg PO DAILY 04/11/25 04/16/25 Unknown History release calcium carbonate (Antacid Ultra 400 mg PO TID 04/11/25 04/16/25 Unknown History Strength) pantoprazole 40 mg tablet,delayed 40 mg PO BID@0630,1630 04/11/25 04/16/25 Unknown History release sevelamer carbonate 800 mg tablet 1,600 mg PO TID 04/11/25 04/16/25 Unknown History Physical Exam Vital Signs: Vital Signs: Last Vital Signs Temp 98.1 F 04/13/25 07:11 Pulse 66 04/13/25 07:11 Resp 18 04/13/25 07:11 BP 128/60 04/13/25 07:11 Pulse Ox 96 04/13/25 07:11 O2 Del Method Room Air 04/13/25 07:11 BMI result Body Mass Index 28.7 Results Labs 04/14/25 07:41 04/14/25 07:41 Labs: Short CBC 04/12/25 04/13/25 Range/Units 12:38 07:28 WBC 5.5 4.4 L (4.8-10.8) X10*3/uL Hgb 7.6 L 8.5 L (14.0-18.0) g/dl Hct 21.9 L 25.2 L (42.0-52.0) % Plt Count 169 157 L (160-400) X10*3/uL [facility] 04/13/25 07:28 Sodium 141 Potassium 4.8 Chloride 95 L Carbon Dioxide 31 H BUN 25 H Creatinine 7.27 H* Calcium 9.2 Procedures Date of Service Date of Service: 04/18/25
--- NOTE | 2025-04-13 10:41 | MHC.CM.PN ---
Per ROUNDS discussion, Patient is not yet medically cleared for dc (being scoped (upper & lower) today); returning to [facility] is the goal and CM will continue to follow.
[2025-04-13 11:27] LABS: Hematocrit 28.8 % (42.0-52.0); Hemoglobin 10.1 g/dl (14.0-18.0); Mean Corpuscular HGB Conc 35.1 g/dl (31.0-36.0); Mean Corpuscular Hemoglobin 33.0 pg (27.0-33.0); Mean Corpuscular Volume 94.1 fL (80.0-98.0); NRBC Abs Auto 0.000 X10*3/uL (0.0-0.012); NRBC Pct Auto 0.0 /100WBC (0.0-0.2); Platelet Count 155 X10*3/uL (160-400); Red Blood Count 3.06 X10*6/uL (4.60-5.80); White Blood Count 5.3 X10*3/uL (4.8-10.8)
[2025-04-13 11:33] LABS: INTERNATIONAL NORM RATIO 1.0 (0.9-1.1); Prothrombin Time 11.7 SEC (10.9-12.4)
[2025-04-13 11:42] LABS: Anion Gap 24 (12-20); Carbon Dioxide 27 mmol/L (22-29); Chloride 94 mmol/L (96-108); Potassium 5.0 mmol/L (3.3-5.1); Sodium 140 mmol/L (135-145)
--- NOTE | 2025-04-13 14:06 | PC.NURSE ---
flushed right 20g iv. patent. no leaking.
--- NOTE | 2025-04-13 14:46 | P.CONAN_ITS ---
[facility] Active Problems Active Problems: All Active Problems (Updated 04/13/25 @ 05:44 by Sharlene Ruggiero RN) History of colon polyps (Acute) Acute on chronic anemia (Acute) Valvular heart disease (Acute) Dyspnea on exertion (Acute) Heme positive stool (Acute) Severe anemia (Acute) Acute dyspnea (Acute) Elevated troponin (Acute) Hypotension (Acute) Anemia (Acute) HOPSON (dyspnea on exertion) (Acute) H/O: GI bleed (Acute) Screening for colon cancer (Acute) Screening for prostate cancer (Acute) Adult general medical exam (Acute) History of ETOH abuse (Acute) History of smoking (Acute) Laboratory exam ordered as part of routine general medical examination (Acute) Heme positive stool (Acute) ESRF (end stage renal failure) (Acute) Asthenia due to disease (Acute) Bacteremia (Acute) Bacteremia due to Gram-positive bacteria (Acute) Obesity (BMI 35.0-39.9 without comorbidity) (Acute) Sepsis due to COVID-19 (Acute) ESRD on hemodialysis (Acute) Pulmonary congestion (Acute) COVID-19 virus infection (Acute) Acute on chronic blood loss anemia (Acute) Leukocytosis (Acute) Acute febrile illness (Acute) Intravenous line infection (Acute) Staphylococcus aureus bacteremia (Acute) Line sepsis associated with dialysis catheter (Acute) Sepsis (Acute) ESRD on dialysis (Acute) Renal failure (Acute) Acidosis, metabolic (Acute) Heart failure with preserved ejection fraction (Acute) Hypercalcemia (Acute) Renal failure, chronic (Acute) Aortic stenosis (Acute) Anasarca (Acute) CKD (chronic kidney disease), stage V (Acute) Nephrotic syndrome (Acute) Acute on chronic kidney failure (Acute) ESRD (end stage renal disease) (Acute) Hypothyroidism (Acute) Anemia (Acute) H/O aortic valve replacement (Acute) Aortic stenosis (Acute) Hypertension (Acute) Past Medical History Medical History Afib ESRD (end stage renal disease) Hyperkalemia Hypothyroidism MSSA bacteremia Adult failure to thrive Anemia Staphylococcal pneumonia Pleural effusion Anasarca associated with disorder of kidney Congestive heart failure Membranous nephrosis Aortic stenosis 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 Family history of problems with anesthesia: No Surgical History Surgical History Hx of colonoscopy H/O aortic valve replacement History of Problems with Anesthesia: No Social History Social History Household Members: Other Housing: Assisted Living Facility Housing Other:: [facility] Do you presently have visiting nurse or other home services: Yes Alcohol intake: former Comment: rings appropriately Patient Tobacco Use Status: Former Tobacco user Tobacco use type: Cigarette Years Smoked: 30 Smoked in Last 30 Days: No e-Cigarette/Vaping Use: Never Used Patient Interested in Nicotine Replacement: No Second Hand Smoke Exposure: No Use of substances other than those prescribed or required for medical reasons: No Currently Displaying Signs/Symptoms of Drug Intoxication Withdrawal: No Have you been hit, kicked, punched, or otherwise hurt by someone within the past year? If so, by whom?: No Do you feel safe in your current relationship?: No Current Relationship Is there a partner from a previous relationship who is making you feel unsafe now?: No Are you made to feel afraid or neglected: No Are you DNR?: No Advance Directives: Yes Advance Directives on File: Yes Advance Directives Date on File: 07/30/23 Do you have a plan to hurt others: No Plan Recently lost weight without trying: No Eating poorly because of decreased appetite: No Nutrition Risks: No Nutritional Risk Poor oral hygiene: No service: No Current occupational status: unemployed and disabled Cognitive needs: No Hearing needs: No Vision needs: No Meds Allergies Allergy/AdvReac Type Severity Reaction Status Date / Time Penicillins Allergy Severe Hives Verified 04/13/25 13:52 Active Medications: Current Medications Acetaminophen (Acetaminophen 325 Mg Tablet) 650 mg PO Q6H PRN PRN Reason: Pain, Mild 1-3,fever,headache Calcium Carbonate (Calcium Carbonate 750 Mg Tab.Chew) 750 mg PO Q4H PRN PRN Reason: Heartburn Sodium Chloride (Ns) 500 mls @ 20 mls/hr IVCONT .Q24H [facility] Last Admin: 04/13/25 14:18 Dose: 20 mls/hr Magnesium Hydroxide (Milk Of Magnesia 30 Ml Oral.Susp) 30 ml PO DAILY PRN PRN Reason: Constipation Melatonin (Melatonin 3 Mg Tablet) 6 mg PO BEDTIME PRN PRN Reason: Insomnia Ondansetron HCl (Ondansetron Hcl 4 Mg/2 Ml Vial) 4 mg IVPUSH Q8H PRN PRN Reason: Nausea and Vomiting Oxycodone HCl (Oxycodone Hcl Immed Release 5 Mg Tablet) 5 mg PO Q6H PRN PRN Reason: Pain, Severe (Pain Scale 7-10) Sodium Chloride (0.9 % Sodium Chloride Flush 3 Ml Syringe) 3 ml IVFLUSH QSHIFT [facility] Last Admin: 04/13/25 10:27 Dose: Not Given Home Medications ?Medication ?Instructions ?Recorded ?Confirmed ?Last Taken ?Type levothyroxine 75 mcg tablet 75 mcg PO DAILY@0600 06/2704/11/25 03/19/25 History atorvastatin 40 mg tablet 40 mg PO BEDTIME 02/10/2203/19/25 History sertraline 25 mg tablet 25 mg PO DAILY 10/03/2203/2003/19/25 History cholecalciferol (vitamin D3) 25 50 mcg PO DAILY 04/11/25 03/19/25 History mcg (1,000 unit) tablet sodium zirconium cyclosilicate 5 5 g PO MOWEFR 5 04/11/25 Unknown History gram oral powder packet (Lokelma) aspirin 81 mg tablet,delayed 81 mg PO DAILY 04/11/25 0 04/11/25 Unknown History release calcium carbonate (Antacid Ultra 400 mg PO TID 5 04/11/25 Unknown History Strength) pantoprazole 40 mg tablet,delayed 40 mg PO BID@0630,16 30 04/11/25 04/11/25 Unknown History release sevelamer carbonate 800 mg tablet 1,600 mg PO TID 03/2004/11/25 Unknown History Exam Height,Weight and Vital Signs: Height 5 ft 11 in Weight 93.4 kg Last Vital Signs Temp 97.8 F 04/13/25 13:57 Pulse 73 04/13/25 13:57 Resp 16 04/13/25 13:57 BP 134/57 L 04/13/25 13:57 Pulse Ox 97 04/13/25 13:57 O2 Del Method Room Air 04/13/25 13:57 Pertinent Lab Results Pertinent Lab Results: Laboratory Tests 04/11/25 04/11/25 04/11/25 13:34 15:08 15:31 WBC 4.6 L RBC 1.60 L D Hgb 5.6 L* D Hct 17.2 L* D MCV 107.5 H MCH 35.0 H MCHC 32.6 RDW 16.7 H Plt Count 167 D MPV 10.0 Immature Gran % (Auto) 0.4 Neut % (Auto) 66.1 Lymph % (Auto) 11.3 L [place] % (Auto) 18.4 H Eos % (Auto) 3.2 Baso % (Auto) 0.6 Lymph # (Auto) 0.5 L [place] # (Auto) 0.9 Eos # (Auto) 0.2 Baso # (Auto) 0.0 Abs Immat Gran (auto) 0.02 Absolute Neuts (auto) 3.1 Absolute Nucleated RBC 0.000 Nucleated RBC % (auto) 0.0 Smear Path Review SEE NOTE PT INR aPTT Heparin Protocol Sodium 138 Potassium 5.7 H Chloride 92 L Carbon Dioxide 33 H Anion Gap 19 BUN 46 H Creatinine 8.60 H* Estim Creat Clear Calc 9.4 Estimated GFR 6 Random Glucose 86 Calcium 9.2 D Total Bilirubin 0.5 Direct Bilirubin 0.2 AST 68 H ALT < 6 Alkaline Phosphatase 78 Troponin I High Sens 53.9 H D NT-Pro-B Natriuret Pep 21995.4 H Total Protein 7.5 Albumin 4.4 Stool Occult Blood POSITIVE COVID-19 (CYRUS) Negative COVID-19 Clin Com See Note Influenza Type A (DAGMAR) Negative Influenza Type B (DAGMAR) Negative Influenza A & B Note See Note Blood Type A Positive Antibody Screen NEGATIVE Crossmatch See Detail 04/11/25 04/12/25 04/12/25 22:11 03:41 12:38 WBC 5.0 5.5 RBC 2.03 L D 2.28 L Hgb 6.2 L* 6.7 L* 7.6 L Hct 18.3 L* 19.4 L* 21.9 L MCV 95.6 D 96.1 MCH 33.0 33.3 H MCHC 34.5 34.7 RDW 22.5 H 21.8 H Plt Count 156 L 169 MPV 9.5 9.8 Immature Gran % (Auto) Neut % (Auto) Lymph % (Auto) [place] % (Auto) Eos % (Auto) Baso % (Auto) Lymph # (Auto) [place] # (Auto) Eos # (Auto) Baso # (Auto) Abs Immat Gran (auto) Absolute Neuts (auto) Absolute Nucleated RBC 0.000 0.000 Nucleated RBC % (auto) 0.0 0.0 Smear Path Review PT 11.7 D INR 1.0 aPTT Heparin Protocol 29.3 L Sodium 141 Potassium 5.1 Chloride 96 Carbon Dioxide 30 H Anion Gap 20 BUN 50 H Creatinine 9.89 H* Estim Creat Clear Calc 8.2 Estimated GFR 5 Random Glucose 90 Calcium 8.8 Total Bilirubin Direct Bilirubin AST ALT Alkaline Phosphatase Troponin I High Sens NT-Pro-B Natriuret Pep Total Protein Albumin Stool Occult Blood COVID-19 (CYRUS) COVID-19 Clin Com Influenza Type A (DAGMAR) Influenza Type B (DAGMAR) Influenza A & B Note Blood Type Antibody Screen Crossmatch 04/13/25 04/13/25 07:28 11:16 WBC 4.4 L 5.3 RBC 2.60 L 3.06 L Hgb 8.5 L 10.1 L Hct 25.2 L 28.8 L MCV 96.9 94.1 MCH 32.7 33.0 MCHC 33.7 35.1 RDW 20.8 H 20.3 H Plt Count 157 L 155 L MPV 9.5 9.8 Immature Gran % (Auto) 0.7 H Neut % (Auto) 61.1 Lymph % (Auto) 14.4 L [place] % (Auto) 16.7 H Eos % (Auto) 6.2 H Baso % (Auto) 0.9 Lymph # (Auto) 0.6 L [place] # (Auto) 0.7 Eos # (Auto) 0.3 Baso # (Auto) 0.0 Abs Immat Gran (auto) 0.03 Absolute Neuts (auto) 2.7 Absolute Nucleated RBC 0.000 0.000 Nucleated RBC % (auto) 0.0 0.0 Smear Path Review PT 11.7 INR 1.0 aPTT Heparin Protocol Sodium 141 140 Potassium 4.8 5.0 Chloride 95 L 94 L Carbon Dioxide 31 H 27 Anion Gap 20 24 H BUN 25 H Creatinine 7.27 H* Estim Creat Clear Calc 11.1 Estimated GFR 8 Random Glucose 78 Calcium 9.2 Total Bilirubin Direct Bilirubin AST ALT Alkaline Phosphatase Troponin I High Sens NT-Pro-B Natriuret Pep Total Protein Albumin Stool Occult Blood COVID-19 (CYRUS) COVID-19 Clin Com Influenza Type A (DAGMAR) Influenza Type B (DAGMAR) Influenza A & B Note Blood Type Antibody Screen Crossmatch Airway Mallampati Class: II TM Dist: >3cm Neck ROM: Full Loose/Missing/Broken Teeth: Yes, Upper and Lower Heart: RRR Lungs: CTA Assessment and Plan Assessment Anesthesia Assessment: Anesthesia Plan Discussed and Chart Reviewed Final Anesthetic Review Family History of Problems with Anesthesia: No History of Problems with Anesthesia: No NPO: Yes ASA Class: III Final Preanesthetic Review: Meds/Allgs Chart Reviewed, Consent Obtained/Reviewed and Anes Risks/Benef Reviewed Patient Risk: Intermediate Procedure Risk: Intermediate Anesthetic Plan Anesthetic Plan: MAC: Disposition: Standard PACU
--- NOTE | 2025-04-13 15:14 | MHC.SHP ---
Pre-Procedural Eval Section A - 24 Hr Update-Section A only Date of Service: 04/13/25 The patient is an INPATIENT: Yes Changes since office visit: Yes New Medical Problems and Yes Patient answered all questions; No Cold of Flu in the past 2 weeks and No Changes in Medication The patient has been examined within 24 hours of the surgical procedure. The History & Physical has been completed within 30 days and I have reviewed it.: Yes Section B - Complete if H&P > 30 days Chief Complaint: Fluid overload,anemia Allergies: Allergies Allergy/AdvReac Type Severity Reaction Status Date / Time Penicillins Allergy Severe Hives Verified 04/13/25 13:52 Plan Diagnosis/Plan: Unchanged I have reviewed the history and physical and performed a pertinent physical examination on my patient. No changes have occurred unless specified. Time Spent With Patient Time: Total time managing care of this patient today ____ minutes.
--- NOTE | 2025-04-13 15:36 | P.PNIM_ITS ---
Subjective Subjective Date of Service: 04/13/25 Interval History: No acute issues overnight. Remains NPO pending EGD:. Hemoglobin stable Review of Systems Denies chest pain Denies shortness of breath Denies nausea vomiting diarrhea Denies fever chills Physical Exam 2 Vital Signs: Vital Signs: Last Vital Signs Temp 97.8 F 04/13/25 13:57 Pulse 73 04/13/25 13:57 Resp 16 04/13/25 13:57 BP 134/57 L 04/13/25 13:57 Pulse Ox 97 04/13/25 13:57 O2 Del Method Room Air 04/13/25 13:57 BMI result Body Mass Index 28.7 Const: Other: Awake alert oriented x3 in no acute distress Resp: Other: Clear to auscultation bilaterally ; no rales rhonchi or wheezes Cardio: Other: No S4; positive S1-S2; no S3 murmurs rubs or gallops GI: Other: Soft nontender nondistended normoactive bowel sounds Extrem: Other: No edema bilaterally Objective Data Active Medications Acetaminophen (Acetaminophen 325 Mg Tablet) 650 mg PO Q6H PRN PRN Reason: Pain, Mild 1-3,fever,headache Calcium Carbonate (Calcium Carbonate 750 Mg Tab.Chew) 750 mg PO Q4H PRN PRN Reason: Heartburn Sodium Chloride (Ns) 500 mls @ 20 mls/hr IVCONT .Q24H [facility] Last Admin: 04/13/25 14:18 Dose: 20 mls/hr Documented By: VENKAT Magnesium Hydroxide (Milk Of Magnesia 30 Ml Oral.Susp) 30 ml PO DAILY PRN PRN Reason: Constipation Melatonin (Melatonin 3 Mg Tablet) 6 mg PO BEDTIME PRN PRN Reason: Insomnia Ondansetron HCl (Ondansetron Hcl 4 Mg/2 Ml Vial) 4 mg IVPUSH Q8H PRN PRN Reason: Nausea and Vomiting Oxycodone HCl (Oxycodone Hcl Immed Release 5 Mg Tablet) 5 mg PO Q6H PRN PRN Reason: Pain, Severe (Pain Scale 7-10) Sodium Chloride (0.9 % Sodium Chloride Flush 3 Ml Syringe) 3 ml IVFLUSH QSHIFT [facility] Last Admin: 04/13/25 10:27 Dose: Not Given Documented By: VALERIE Non-Admin Reason: Off unit: Dialysis Labs 04/13/25 11:16 04/13/25 11:16 Labs: Laboratory Results - last 24 hr 04/11/25 04/13/25 04/13/25 15:31 07:28 11:16 MCV 96.9 94.1 MCH 32.7 33.0 MCHC 33.7 35.1 RDW 20.8 H 20.3 H Plt Count 157 L 155 L MPV 9.5 9.8 Immature Gran % (Auto) 0.7 H Neut % (Auto) 61.1 Lymph % (Auto) 14.4 L [place] % (Auto) 16.7 H Eos % (Auto) 6.2 H Baso % (Auto) 0.9 Lymph # (Auto) 0.6 L [place] # (Auto) 0.7 Eos # (Auto) 0.3 Baso # (Auto) 0.0 Abs Immat Gran (auto) 0.03 Absolute Neuts (auto) 2.7 Absolute Nucleated RBC 0.000 0.000 Nucleated RBC % (auto) 0.0 0.0 PT 11.7 INR 1.0 Anion Gap 20 24 H Estim Creat Clear Calc 11.1 Estimated GFR 8 Random Glucose 78 Calcium 9.2 Crossmatch See Detail Assessment and Plan (1) Acute on chronic anemia: Status: Acute (2) ESRD on hemodialysis: Status: Acute Plan 69 year old man admitted for symptomatic anemia with dyspnea on exertion . 1.Symptomatic anemia -hemoglobin stable; total 4 units packed red cells -IV PPI --await endoscopy results 2.ESRD on dialysis -at baseline -renal following 3.CAD -recent NSTEMI... [facility] -has bioprosthetic Aortic valve s/p TAVR 03/29/25 -2D echo pending 4.PAF -anticoagulation held secondary TAVR/NSR /GI bleed -add back anticoagulation when clinically appropriate Pneumatics Full code Requires ongoing hospitalization to track hemoglobin and for endoscopy to determine source of bleeding Quality Stroke Does the patient have a stroke diagnosis?: No VTE Prior VTE?: No VTE Risk Level:: Medical - moderate - high VTE Device Contraindication: N/A - Device Ordered VTE Drug Contraindication: Treatment Not Indicated
--- NOTE | 2025-04-13 16:05 | P.OPN-COLO_ITS ---
Colonoscopy Operative Note Operative Note Date of Service: 04/13/25 Narrative: FLEXIBLE TRANSORAL UPPER GASTROINTESTINAL ENDOSCOPY WITH BIOPSIES AND COLONOSCOPY TILL CECUM WITH BIOPSIES, SNARE POLYPECTOMY AND HEMOCLIP PLACEMENT Pre-op diagnosis: Acute on chronic anemia, colon polyps Post-op diagnosis: GERD, Gastritis, vargas's, esophageal nodules, Colon Polyps, Diverticulosis, hemorrhoids Endoscopist:? Bahman Rodriguez MD Anesthesia:?MAC UPPER ENDOSCOPY Consent: Indications for the procedure and potential complications of bleeding, perforation, reaction to medications and missed diagnosis were discussed with the patient and informed consent was obtained. Instrument: Olympus GIF H 190 mid size upper endoscope Monitoring: Vital signs and clinical assessment, continuous EKG monitoring, Pulse oximetry, Carbon Dioxide monitoring and blood pressure monitoring were done throughout the procedure. Procedure: The patient was placed in the left lateral decubitis position and pre-procedure medications were administered and a bite block was placed. The endoscope was inserted into the mouth and advanced under direct vision to the third part of duodenum. A careful inspection was made as the upper endoscope was withdrawn including a retroflexed examination of the proximal stomach; Findings and interventions are described below. Findings: Larynx: Normal Esophagus: GE junction at 43 cm, diaphragm hiatus at 45 cm, consistent with 2 cm hiatal hernia. Long segment of Barretts appearing mucosa noted, with a polypoidal nodular lesion at 37 to 40 cm, biopsies were obtained. Stomach: Moderate diffuse gastric erythema - biopsies were obtained during previous endoscopy were negative for H pylori Grade 3 flap valve on retroflexed examination of the cardia. Duodenum: Duodenitis in the bulb and normal descending duodenum Intervention: Biopsies as noted above COLONOSCOPY PROCEDURE NOTE Instrument: Olympus CF H 190 L variable stiffness adult colonoscope Monitoring: Vital signs and clinical assessment, intermittent blood pressure monitoring, continuous EKG monitoring, Pulse oximetry and Carbon Dioxide monitoring were done throughout the procedure. Please see anesthesia flowsheet. Colon withdrawl time was 17 minutes. Procedure: The patient was placed in the left lateral decubitis position and pre-procedure medications were administered. After a digital rectal examination of the ano-rectum, the video colonoscope was inserted into the rectum and advanced through the colon to the cecum. The colonoscope was slowly withdrawn in a retrograde panoramic fashion and the colon mucosa was carefully examined including a retroflexed view of the rectum. Findings and interventions are described below. Procedure Difficulty: without difficulty Findings: Terminal Ileum: Not evaluated Cecum: Three hemocips noted in the cecum placed during previous colonoscopy. Moderate diverticulosis scattered throughout the colon Ascending Colon: A 4-5 mm sessile polyp in the proximal AC - removed with a cold snare. Residual polyp was removed with a cold biopsy. Moderate diverticulosis scattered throughout the colon Transverse Colon: A 10 - 12 mm sessile polyp at 75 cms. Polyp was removed with a hot snare and polypectomy site was closed with 1 hemoclip. Moderate diverticulosis scattered throughout the colon Descending Colon: Normal Sigmoid Colon: Severe diverticulosis with luminal narrowing Rectum: Normal Ano-rectum: Moderate non-bleeding internal hemorrhoids Colon preparation: Good to Fair despite copious irrigation. [place] Bowel Preparation Scale Right colon; 2 Transverse colon: 2 Left colon; 2 (0 = Unprepared colon segment with mucosa not seen due to solid stool that cannot be cleared. 1 = Portion of mucosa of the colon segment seen, but other areas of the colon segment not well seen due to staining, residual stool and/or opaque liquid. 2 = Minor amount of residual staining, small fragments of stool and/or opaque liquid, but mucosa of colon segment seen well. 3 = Entire mucosa of colon segment seen well with no residual staining, small f ragments of stool or opaque liquid) Impression and Post Procedure Diagnosis: Endoscopy Findings: ESOPHAGUS: 2 cm hiatal hernia. Long segment of Barretts appearing mucosa noted, with a polypoidal nodular lesion at 37 to 40 cm, biopsies were obtained. STOMACH: Moderate diffuse gastric erythema - biopsies were obtained during previous endoscopy were negative for H pylori Grade 3 flap valve on retroflexed examination of the cardia. DUODENUM: Duodenitis in the bulb and normal descending duodenum Colonoscopy Findings: Two polyps were removed Moderate to severe diverticulosis seen in the entire colon Moderate hemorrhoids on retroflexed exam. No active bleeding or potential source of bleeding seen in the upper or lower GI tract. Brown stool seen in the colon without any blood clots or black stools. Acute on chronic anemia possibly self-limited diverticular bleed. Plan: Ok to resume a cardiac diet. Follow CBC daily. Pt can be discharged home if CBC remains stable. Repeat Colonoscopy in 3 years if polyps are adenomatous and due to fair prep (Dulcolax 10 mg daily x 5 days prior to next colonoscopy appointment) A summary of above findings and relevant handouts were given to the patient. BIOPSIES SHOWED: A. Esophagus, nodule, biopsy: - Cardiac type mucosa with extensive intestinal metaplasia and high-grade dysplasia, at least. - Negative for H. pylori. See comment. B. Colon, ascending, polypectomy: Fragments of tubular adenoma; negative for high-grade dysplasia or carcinoma. C. Colon, transverse, polypectomy: Inflammatory polyp. Comment: The findings in part A are worrisome for intramucosal adenocarcinoma Patient called and biopsy results were reviewed over the phone. He was referred to Dr. Maynard at [facility] for ablation therapy for Barretts with HGD Patient was placed on the colonoscopy recall list for repeat colonoscopy in 3 years.
[2025-04-13] MEDS: 0.9 % Sodium Chloride Flush 3 ML SYRINGE IVFLUSH (22:29)
[2025-04-14] VITALS: BP 128/62; PULSE 61; RESP 16; TEMP 37.1; O2SAT 97
[2025-04-14 03:59] VITALS: BP 124/60; PULSE 68; RESP 16; TEMP 37; O2SAT 98
[2025-04-14 07:49] LABS: MANUAL DIFF FLAG NO
[2025-04-14 07:51] LABS: Hematocrit 29.3 % (42.0-52.0); Hemoglobin 10.1 g/dl (14.0-18.0); Imm Gran Abs Auto 0.02 X10*3/uL (0.00-0.03); Imm Gran Pct Auto 0.4 % (0.0-0.4); Lymphocytes Absolute Auto 0.5 X10*3/uL (1.2-4.9); Mean Corpuscular HGB Conc 34.5 g/dl (31.0-36.0); Mean Corpuscular Hemoglobin 33.1 pg (27.0-33.0); Mean Corpuscular Volume 96.1 fL (80.0-98.0); NRBC Abs Auto 0.000 X10*3/uL (0.0-0.012); NRBC Pct Auto 0.0 /100WBC (0.0-0.2); Platelet Count 157 X10*3/uL (160-400); Red Blood Count 3.05 X10*6/uL (4.60-5.80); White Blood Count 4.5 X10*3/uL (4.8-10.8)
[2025-04-14 08:30] LABS: Alanine Aminotransferase < 6 U/L (0-40); Albumin Level 4.6 g/dL (3.5-5.0); Alkaline Phosphatase 89 U/L (39-117); Anion Gap 21 (12-20); Aspartate Amino Transferase 29 U/L (5-37); Blood Urea Nitrogen 24 mg/dL (9-16); Calcium 9.6 mg/dL (8.4-10.2); Carbon Dioxide 27 mmol/L (22-29); Chloride 96 mmol/L (96-108); Creatinine Clr Calc Pharmacy 15.0; Estimated Glomerular Filt Rate 11; Potassium 3.7 mmol/L (3.3-5.1); Sodium 140 mmol/L (135-145); Total Protein 8.1 g/dL (6.5-8.0)
[2025-04-14] MEDS: 0.9 % Sodium Chloride Flush 3 ML SYRINGE IVFLUSH (08:56)
[2025-04-14 11:37] VITALS: BP 118/56; PULSE 90; RESP 18; TEMP 37
--- NOTE | 2025-04-14 12:06 | P.DS_ITS ---
DS: Providers Provider Date of Service: 04/14/25 Date of admission: 04/11/25 17:20 Date of discharge: 04/14/25 Primary care physician: Alberto Melo MD Consults: 04/11/25 17:20 Consult to Nephrology Routine Consulting Provider: [facility] Reason for consultation: ESRD on dialysis 04/11/25 17:24 Consult to Gastroenterology Routine Consulting Provider: [facility] Reason for consultation: anemia 04/11/25 17:41 Consult to Cardiology Routine Consulting Provider: [facility] Reason for consultation: Dyspnea on exertion, recent TAVR DS: Diagnosis Discharge Diagnosis (1) Acute on chronic anemia: Status: Acute (2) ESRD on hemodialysis: Status: Acute DS: Summary Hospital Course Hospital Course: 69 year old man with history of end-stage renal disease on dialysis, hypertension, hyperlipidemia, recent TAVR, atrial fibrillation presenting with exertional dyspnea and dark stools. Patient was recently admitted to [facility] and had TAVR done on March 29. He was discharged on March 31 back to his assisted living facility. Since then he has been having shortness of breath and dyspnea on exertion and that is why he ended up coming in. He had dialysis yesterday. Over the last couple of days he has had increased shortness of breath and even walking around he feels short of breath, putting his clothes on. Chest x-ray negative for of focal pneumonia, showing mild cardiomegaly with mild interstitial pulmonary edema and TAVR and place. He was found to be anemic with hemoglobin of 5.6, hematocrit 17.2, potassium 5.7, creatinine 8.60, pro BNP 95585. He was started on IV ppi in the ER. Plan will be to admit for further management and treatment of acute GI bleed and fluid overload. Hospital Course Patient admitted to telemetry where monitor failed to demonstrate any acute dysrhythmias. He was transfused 4 units of blood on 2 separate episodes with stabilization/improvement of his hemoglobin. He was seen in consultation by GI; on 04/13/2025 patient underwent upper and lower endoscopy; findings included moderate to severe diverticulosis in the entire colon and hemorrhoids. There was no clot or bleeding sources found in the upper lower GI tract. At this point in time he feels well his hemoglobin stable and he is medically acceptable for discharge Time Attestation Discharge Coordination Time (in mins): 35 Quality: Safe Use of Opioids Does Pt have an Active Cancer Diagnosis on the Problem List?: No Quality: Stroke Does the patient have a stroke diagnosis?: No Physical Exam Vital Signs: Vital Signs: Last Vital Signs Temp 98.6 F 04/14/25 11:37 Pulse 90 04/14/25 11:37 Resp 18 04/14/25 11:37 BP 118/56 L 04/14/25 11:37 Pulse Ox 98 04/14/25 03:59 O2 Del Method Room Air 04/14/25 11:37 O2 Flow Rate 4 04/13/25 16:40 BMI result Body Mass Index 28.7 Const: Other: Awake alert oriented x3 in no acute distress Resp: Other: Clear to auscultation bilaterally ; no rales rhonchi or wheezes Cardio: Other: No S4; positive S1-S2; no S3 murmurs rubs or gallops GI: Other: Soft nontender nondistended normoactive bowel sounds Extrem: Other: No edema bilaterally DS: Data Data Completed and Pending Completed studies during hospitalization [Text1]: Procedures Control Bleeding in Gastrointestinal Tract, Via Natural or Artificial Opening Endoscopic (03/12/25) Drainage of Right Pleural Cavity with Drainage Device, Percutaneous Approach (10/28/22) Excision of Ascending Colon, Via Natural or Artificial Opening Endoscopic, Diagnostic (03/12/25) Excision of Duodenum, Via Natural or Artificial Opening Endoscopic, Diagnostic (03/12/25) Excision of Stomach, Pylorus, Via Natural or Artificial Opening Endoscopic, Diagnostic (03/12/25) Extraction of Esophagus, Via Natural or Artificial Opening Endoscopic, Diagnostic (03/12/25) Extraction of Right Inguinal Lymphatic, Percutaneous Approach, Diagnostic (04/23/20) Fluoroscopy of Superior Vena Cava, Guidance (10/28/22) Insertion of Infusion Device into Right Atrium, Percutaneous Approach (03/12/23) Insertion of Infusion Device into Superior Vena Cava, Percutaneous Approach (07/18/23) Insertion of Tunneled Vascular Access Device into Chest Subcutaneous Tissue and Fascia, Percutaneous Approach (07/18/23) Introduction of Mineral-based Topical Hemostatic Agent into Lower GI, Via Natural or Artificial Opening Endoscopic, [employer] 6 (03/12/25) Introduction of Remdesivir Anti-infective into Peripheral Vein, Percutaneous Approach, [employer] 5 (07/18/23) Performance of Urinary Filtration, Intermittent, Less than 6 Hours Per Day (03/12/25) Removal of Infusion Device from Great Vessel, External Approach (10/28/22) Removal of Infusion Device from Great Vessel, Percutaneous Approach (03/12/23) Removal of Tunneled Vascular Access Device from Trunk Subcutaneous Tissue and Fascia, Open Approach (07/18/23) Transfusion of Nonautologous Red Blood Cells into Peripheral Vein, Percutaneous Approach (03/12/25) Ultrasonography of Superior Vena Cava, Guidance (07/18/23) Pending studies at discharge: Pending at discharge 04/13/25 16:07 Surgical [PTH] Routine Labs on day of discharge: Laboratory Results - last 24 hr 04/14/25 07:41 WBC 4.5 L RBC 3.05 L Hgb 10.1 L Hct 29.3 L MCV 96.1 MCH 33.1 H MCHC 34.5 RDW 19.4 H Plt Count 157 L MPV 9.4 Immature Gran % (Auto) 0.4 Neut % (Auto) 67.6 Lymph % (Auto) 11.4 L [place] % (Auto) 13.6 H Eos % (Auto) 6.3 H Baso % (Auto) 0.7 Lymph # (Auto) 0.5 L [place] # (Auto) 0.6 Eos # (Auto) 0.3 Baso # (Auto) 0.0 Abs Immat Gran (auto) 0.02 Absolute Neuts (auto) 3.0 Absolute Nucleated RBC 0.000 Nucleated RBC % (auto) 0.0 Sodium 140 Potassium 3.7 D Chloride 96 Carbon Dioxide 27 Anion Gap 21 H BUN 24 H Creatinine 5.40 H* Estim Creat Clear Calc 15.0 Estimated GFR 11 Fasting Glucose 85 Calcium 9.6 Total Bilirubin 0.7 AST 29 ALT < 6 Alkaline Phosphatase 89 Total Protein 8.1 H Albumin 4.6 Discharge Plan Discharge Anticipated Discharge Date/Time: 04/14/25 12:01 Patient Disposition: Home, Self-Care Discharge Diagnosis: Symptomatic anemia Referrals: Alberto Melo MD [Primary Care Provider, Internal Medicine] - 1 Week Discharge Medications: New oxycodone 5 mg Tablet 5 mg PO Q6H PRN (Reason: Pain, Severe (Pain Scale 7-10)) Qty: 20 0RF Rx Instructions: Partial Fill upon patient request. Continued levothyroxine 75 mcg Tablet 75 mcg PO DAILY@0600 atorvastatin 40 mg tablet 40 mg PO BEDTIME sertraline 25 mg tablet 25 mg PO DAILY Lokelma 5 gram powder in packet 5 g PO MOWEFR Rx Instructions: Take 1 packet three times per week on non-dialysis days MWF, per [facility] midodrine 10 mg Tablet 10 mg PO TID Qty: 270 0RF aspirin 81 mg tablet,delayed release (DR/EC) 81 mg PO DAILY calcium carbonate [Antacid Ultra Strength] 400 mg calcium (1,000 mg) tablet,chewable 400 mg PO TID pantoprazole 40 mg tablet,delayed release (DR/EC) 40 mg PO BID@0630,1630 sevelamer carbonate 800 mg tablet 1,600 mg PO TID cholecalciferol (vitamin D3) 25 mcg (1,000 unit) tablet 50 mcg PO DAILY Discharge Orders: Discharge Order (Routine); Ordered 04/14/25 Ordered By: Brian Willson Diet: Advance to usual diet Activity on Discharge: As tolerated Stand Alone Forms: Patient Portal Discharge page Print Language: Sri Lankan Care Plan Goals: Resume all medicines as taken prior to hospital Health Concerns: Follow up your valve replacement with Dr. Cameron as scheduled Plan of Treatment: Follow up with the PCP next available Assessment: See discharge summary
--- NOTE | 2025-04-14 13:25 | MHC.CM.PN ---
PT IS MEDICALLY CLEARED FOR DC HOME WITH RESUMPTION OF [facility]OUS [facility], OUTPT HD, AND WILL RETURN TO [facility] VIA S TODAY.
[2025-04-14] MEDS: oxyCODONE HCl Immed Release 5 MG TABLET PO (15:16)
[2025-04-14 15:19] VITALS: BP 119/57; PULSE 79; RESP 16; TEMP 36.7; O2SAT 97
--- NOTE | 2025-04-14 20:46 | HO.POSTANES ---
Post Anesthesia Evaluation Post Anesthesia Evaluation Date of Service: 04/14/25 Vital Signs: Vital Signs Temp Pulse Resp BP Pulse Ox O2 Del Method 04/14/25 15:19 98.0 F 79 16 119/57 L 97 Room Air 04/14/25 11:37 98.6 F 90 18 118/56 L Room Air Anesthesia: Monitored Mental Status: Awake Pain Control: Satisfactory Nausea/Vomiting: None Hydration: Adequate Anesthesia-Related Issues: No Anes. Related Issues
== END 2025-04-14 15:29 | disposition home or self-care (01) | DRG 377 ==
LOC: HO.ED 16:00 → HO.EDOVER 17:26 → HO.IMC 20:04
PROVIDERS: Hospitalist; Nurse Practitioner; Nurse Practitioner Acute Care; Admitting Provider Internal Medicine Gastroenterology; Emergency Provider Emergency Medicine; PCP Family Medicine; Visit Provider Hospitalist
PROC: 0DB58ZX Excision of Esophagus, Via Natural or Artificial Opening Endoscopic, Diagnostic (ICD-10-PCS; principal; 2025-04-13 14:50)
DX: K57.31 Diverticulosis of large intestine without perforation or abscess with bleeding (principal); N18.6 End stage renal disease; I13.2 Hypertensive heart and chronic kidney disease with heart failure and with stage 5 chronic kidney disease, or end stage renal disease; I48.0 Paroxysmal atrial fibrillation; E03.9 Hypothyroidism, unspecified; I25.10 Atherosclerotic heart disease of native coronary artery without angina pectoris; D63.1 Anemia in chronic kidney disease; Z99.2 Dependence on renal dialysis; K21.9 Gastro-esophageal reflux disease without esophagitis; K22.70 Barrett's esophagus without dysplasia; K63.5 Polyp of colon; K22.89 Other specified disease of esophagus; K64.8 Other hemorrhoids; I50.9 Heart failure, unspecified; E87.5 Hyperkalemia; Z91.158 Patient's noncompliance with renal dialysis for other reason; E11.22 Type 2 diabetes mellitus with diabetic chronic kidney disease; Z20.822 Contact with and (suspected) exposure to COVID-19; Z95.2 Presence of prosthetic heart valve; Z87.891 Personal history of nicotine dependence; Z79.82 Long term (current) use of aspirin; Z79.890 Hormone replacement therapy; Z79.899 Other long term (current) drug therapy
CPT/HCPCS: 36415; 71046; 80048; 80051; 80053; 80076; 82272; 83880; 84484; 85014; 85018; 85025; 85027; 85610; 85730; 86850; 86900; 86901; 86923; 87502; 87635; 88305; 88313; 88342; 90999; 93005; 93306; 99285; J2003; J2371; J2405; J2470; J2704; P9016; Q9957

== ENCOUNTER → 2025-04-11 13:00 | Outpatient (BNV) | payer OTHER, SELFPAY | PROVIDERS: Emergency Provider Emergency Medicine; PCP Family Medicine; Visit Provider Radiology Diagnostic Radiology | DX: R06.02 Shortness of breath (principal); Z95.2 Presence of prosthetic heart valve | CPT/HCPCS: 71046 ==

== ENCOUNTER 2025-04-11 17:20 | Outpatient (BNV) | payer OTHER, SELFPAY | END 2025-04-12 12:00 | PROVIDERS: Admitting Provider Nurse Practitioner Acute Care; Emergency Provider Emergency Medicine; PCP Family Medicine; Visit Provider Internal Medicine Cardiovascular Disease | DX: I50.9 Heart failure, unspecified (principal); Z95.2 Presence of prosthetic heart valve | CPT/HCPCS: 93306 ==

== ENCOUNTER → 2025-04-11 17:20 | Outpatient (BNV) | payer OTHER, SELFPAY | PROVIDERS: Admitting Provider Nurse Practitioner Acute Care; Emergency Provider Emergency Medicine; PCP Family Medicine; Visit Provider Internal Medicine Cardiovascular Disease | DX: D64.9 Anemia, unspecified (principal); Z95.2 Presence of prosthetic heart valve | CPT/HCPCS: 93010; 99222 ==

== ENCOUNTER → 2025-04-11 17:20 | Outpatient (BNV) | payer OTHER, SELFPAY | PROVIDERS: Admitting Provider Nurse Practitioner Acute Care; Emergency Provider Emergency Medicine; PCP Family Medicine; Visit Provider Nurse Practitioner Acute Care | DX: D62 Acute posthemorrhagic anemia (principal); N18.6 End stage renal disease; Z99.2 Dependence on renal dialysis; I50.30 Unspecified diastolic (congestive) heart failure; D64.9 Anemia, unspecified; R06.09 Other forms of dyspnea | CPT/HCPCS: 99223; 99232; 99239 ==

== ENCOUNTER → 2025-04-11 17:20 | Outpatient (BNV) | payer OTHER, SELFPAY | PROVIDERS: Admitting Provider Nurse Practitioner Acute Care; Emergency Provider Emergency Medicine; PCP Family Medicine; Visit Provider Internal Medicine Gastroenterology | DX: D64.9 Anemia, unspecified (principal); Z86.0100 Personal history of colon polyps, unspecified | CPT/HCPCS: 99222 ==

== ENCOUNTER 2025-05-04 10:48 | Outpatient (AMB) | payer OTHER, SELFPAY ==
--- NOTE | 2025-05-04 11:08 | MHC.PC.OV ---
Vital Signs 05/04/25 11:14 Height 5 ft 11 in Weight 198 lb BMI 27.6 BP 120/68 Blood Pressure Location Rt brachial Position Sitting Respiration 17 Pulse 77 Pulse Source Pulse Oximeter Temp 98 F Temp Source Temporal Artery Scan Pulse Oximetry (%) 98 Oxygen Delivery Method Room Air Intake Visit Reasons: hmc/fluid overload anemia Intake Note: [place] presents in the office today for fluid overload and anemia. Allergies Penicillins Allergy (Severe, Verified 05/04/25 11:13) Hives Medication List - Last Reconciled 05/04/25 by Alberto Melo MD aspirin 81 mg PO DAILY atorvastatin 40 mg PO BEDTIME calcium carbonate (Antacid Ultra Strength) 400 mg PO TID cholecalciferol (vitamin D3) 50 mcg PO DAILY levothyroxine 75 mcg PO DAILY@0600 midodrine 10 mg PO TID oxycodone 5 mg PO Q6H PRN pantoprazole 40 mg PO BID@0630,1630 sertraline 25 mg PO DAILY sevelamer carbonate 1,600 mg PO TID sodium zirconium cyclosilicate (Lokelma) 5 grams PO MOWEFR Tobacco use date assessed: 05/04/25 Dental Screening Dental Screen Date: 05/04/25 Did you have a dental visit in the last 12 months?: No Did you have a dental problem in the last 6 months where you did not have access to dental care?: No Was dental information given to patient?: Patient has dentist HPI hmc/fluid overload anemia HPI Details 69 y/o male presents to f/u hospital visit in March for exertional dyspnea, dark stools. Was found to be anemic - was started on IV ppi in the ER. Was transfused 4 units of blood on 2 separate episodes with stabilization/improvement of his hemoglobin. He was seen in consultation by GI; on 04/13/2025 patient underwent upper and lower endoscopy; findings included moderate to severe diverticulosis in the entire colon and hemorrhoids. There was no clot or bleeding sources found in the upper lower GI tract. 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 Social History (Updated 05/04/25 @ 11:14 by Lara Madera CMA) Household Members: Other Housing: Assisted Living Facility Housing Other:: [facility] Do you presently have visiting nurse or other home services: Yes Alcohol intake: former Comment: rings appropriately Patient Tobacco Use Status: Former Tobacco user Tobacco use type: Cigarette Years Smoked: 30 e-Cigarette/Vaping Use: Never Used Second Hand Smoke Exposure: No Advance Directives Date on File: 07/30/23 service: No Current occupational status: unemployed and disabled Cognitive needs: No Hearing needs: No Vision needs: No Questionnaire Thrive Questionnaire Date Thrive assessed: 09/22/24 I am a: Patient What is your living situation today?: I have a steady place to live Within the past 12 months, did the food you bought not last and you didn't have the money to get more?: Never true Within the past 12 months, did you worry whether your food would run out before you got money to buy more?: Never true Do you have trouble paying for medicines?: No Do you have trouble getting transportation to medical appointments?: No Do you have trouble paying your heating and electricity bill?: No Do you have trouble taking care of your child, family member or friend?: No Do you have trouble with day-to-day activities such as bathing, preparing meals, shopping, managing finances, etc.?: No Are you currently unemployed and looking for a job?: I choose not to answer this question Are you interested in more education?: I choose not to answer this question Please select the resources that you would like help with: None Currently or been in a relationship where the following occur: No concerns reported THRIVE Score: 0 MESFIN-7 AMB Questionnaire MESFIN-7 Date MESFIN - 7 assessed: 09/22/24 Source: Developed by Drs. Roland Haddad, Liss Ingram, Dieudonne Santizo and colleagues, with an educational sukumar from [employer]. Review of Systems Const Denies chills, Denies fatigue, Denies fever(s), Denies headache(s) and Denies weakness ENT Denies dizziness and Denies headache(s) Card Denies dyspnea Resp Denies cough, Denies dyspnea, Denies wheezing and Denies other (shortness of breath) Musc Denies numbness and Denies tingling Neuro Denies dizziness, Denies headache(s), Denies numbness, Denies tingling and Denies weakness Psych Denies anxiety and Denies depression Endo Denies fatigue Aller/Immun Denies wheezing Physical exam (Primary Care) Vital Signs: Last Vital Signs Temp 98 F 05/04/25 11:14 Pulse 77 05/04/25 11:14 Resp 17 05/04/25 11:14 BP 120/68 05/04/25 11:14 Pulse Ox 98 05/04/25 11:14 Oxygen Delivery Method Room Air 05/04/25 11:14 BMI result Body Mass Index 27.6 Tobacco/Smoking Status: Tobacco use Status Tobacco use date assessed 05/04/25 05/04/25 11:18 Patient Tobacco Use Status Former Tobacco user 05/04/25 11:14 Tobacco use type Cigarette 05/04/25 11:14 e-Cigarette/Vaping Use Never Used 05/04/25 11:14 Thrive Assessment: Date of Thrive Assessment Date Thrive assessed 09/22/24 05/04/25 11:09 Currently or been in a relationship where the following occur: No concerns reported Const General: well developed; No acute distress Nutritional Appearance: well nourished Orientation/consciousness: patient oriented x3 HENMT Head: Yes normocephalic and Yes atraumatic Eyes General: appearance normal, both eyes and all related structures Pupils: Equal, round and reactive pupils present EOM: EOMs intact bilaterally Resp Effort & Inspection: normal respiratory effort Auscultation: clear to auscultation bilaterally Cardio Rate: regular rate Rhythm: regular rhythm Heart sounds: S1 normal heart sound present, S2 normal heart sound present, no gallops, no murmurs and no rubs Neuro General: patient oriented x3 and gait normal Cranial nerves: Yes Equal, round and reactive pupils present Psych Affect: normal affect Results AMB Hemoglobin A1c AMB Hemoglobin A1c 5.0 % Last Edit by Lara Madera CMA on 05/04/25 11:30 Results Reviewed Results Reviewed: Laboratory Last Values Hgb A1c (Clinic) 5.0 % (4.0-6.0) 05/04/25 11:19 Coding Level of Care Code Est Pt Level 4 (34215) Diagnoses Anemia D64.9 ESRF (end stage renal failure) N18.6 S/P TAVR (transcatheter aortic valve replacement) Z95.2 Assessment & Plan Assessment & Plan (1) Anemia: Code(s): D64.9 - Anemia, unspecified Category: Medical (2) ESRF (end stage renal failure): Code(s): N18.6 - End stage renal disease Category: Medical (3) S/P TAVR (transcatheter aortic valve replacement): Code(s): Z95.2 - Presence of prosthetic heart valve Category: Surgical Plan [place] Patient with history of end-stage renal disease and recent TAVR, , atrial fibrillation and hypertension presented to ED 04/10/2025 with increasing shortness of breath. Found to be severely anemic with hemoglobin of 5.6, and pro BNP 89078. Patient was admitted for likely GI bleeding, acute on chronic anemia and volume overload. Patient admitted to telemetry where monitor failed to demonstrate any acute dysrhythmias. He was transfused 4 units of blood on 2 separate episodes with stabilization/improvement of his hemoglobin. He was seen in consultation by GI; on 04/13/2025 patient underwent upper and lower endoscopy; findings included moderate to severe diverticulosis in the entire colon and hemorrhoids. There were no clot or bleeding sources found in the upper lower GI tract. By that point, his hemoglobin was stable and he was deemed medically acceptable for discharge, on 04/14/25. Today, patient is a lungs are clear and is breathing easily though he says he still has some mild shortness of breath. Had significant anemia as above Followed by Dr. Ribeiro, nephrology. Will refer back Nephrology - ? Procrit. Also checking CBC today Checking pro BNP Follow-up in 2 months or sooner if he has worsening shortness of breath or other concerning symptoms Orders: Orders AMB Hemoglobin A1c Today Z13.9 - Encounter for screening, unspecified Complete Blood Count Auto Diff Today Z00.00 - Encounter for general adult medical examination without abnormal findings Comprehensive Met. Panel Today N18.6 - End stage renal disease NT Pro B Type Natriuretic Pept Today I50.9 - Heart failure, unspecified, R09.89 - Other specified symptoms and signs involving the circulatory and respiratory systems Referrals Nephrology Referral D64.9 - Anemia, unspecified, N18.5 - Chronic kidney disease, stage 5
[2025-05-04 11:14] VITALS: BP 120/68; PULSE 77; RESP 17; TEMP 36.6; O2SAT 98; BMI 27.6
== END 2025-05-04 12:12 | disposition home or self-care (01) ==
PROVIDERS: PCP Family Medicine; Visit Provider Family Medicine
DX: D64.9 Anemia, unspecified (principal); N18.6 End stage renal disease; Z95.2 Presence of prosthetic heart valve; Z13.9 Encounter for screening, unspecified

== ENCOUNTER → 2025-05-04 10:48 | Outpatient (BNVA) | payer OTHER, SELFPAY | PROVIDERS: PCP Family Medicine; Visit Provider Family Medicine | DX: K57.90 Diverticulosis of intestine, part unspecified, without perforation or abscess without bleeding (principal); E13.22 Other specified diabetes mellitus with diabetic chronic kidney disease; N18.6 End stage renal disease; R06.02 Shortness of breath; D64.9 Anemia, unspecified; I50.9 Heart failure, unspecified; K64.9 Unspecified hemorrhoids; Z95.2 Presence of prosthetic heart valve | CPT/HCPCS: 83036; 99212 ==

== ENCOUNTER 2025-06-01 12:34 | Outpatient (REF) | payer OTHER, SELFPAY ==
[2025-06-01 18:20] LABS: MANUAL DIFF FLAG NO
[2025-06-01 18:35] LABS: Hematocrit 44.6 % (42.0-52.0); Hemoglobin 14.4 g/dl (14.0-18.0); Imm Gran Abs Auto 0.02 X10*3/uL (0.00-0.03); Imm Gran Pct Auto 0.3 % (0.0-0.4); Lymphocytes Absolute Auto 1.0 X10*3/uL (1.2-4.9); Mean Corpuscular HGB Conc 32.3 g/dl (31.0-36.0); Mean Corpuscular Hemoglobin 33.5 pg (27.0-33.0); Mean Corpuscular Volume 103.7 fL (80.0-98.0); NRBC Abs Auto 0.000 X10*3/uL (0.0-0.012); NRBC Pct Auto 0.0 /100WBC (0.0-0.2); Platelet Count 169 X10*3/uL (160-400); Red Blood Count 4.30 X10*6/uL (4.60-5.80); White Blood Count 6.0 X10*3/uL (4.8-10.8)
[2025-06-01 19:15] LABS: Folate 13.2 ng/mL (> or = 4.0); Vitamin B12 766 pg/mL (200-900)
[2025-06-01 19:37] LABS: Alanine Aminotransferase 24 U/L (0-40); Albumin Level 5.2 g/dL (3.5-5.0); Alkaline Phosphatase 81 U/L (39-117); Anion Gap 25 (12-20); Aspartate Amino Transferase 31 U/L (5-37); Blood Urea Nitrogen 46 mg/dL (9-16); Calcium 9.9 mg/dL (8.4-10.2); Carbon Dioxide 27 mmol/L (22-29); Chloride 94 mmol/L (96-108); Estimated Glomerular Filt Rate 6; Free T4 (Free Thyroxine) 1.04 ng/dL (0.71-1.85); Iron 64 mcg/dL (45-160); Percent Iron Saturation 26 % (15-50); Potassium 6.7 mmol/L (3.3-5.1); Sodium 139 mmol/L (135-145); Thyroid Stimulating Hormone 0.38 uIU/mL (0.32-4.0); Total Iron Binding Capacity 246 mcg/dL (228-428); Total Protein 9.1 g/dL (6.5-8.0); Unsaturated Iron Binding 182 ug/dL
--- OUTSIDE RECORDS SUMMARY | 2025-06-01 21:04 | XMS_ITS | Encounter Summary ---
Author Organization [facility] Address [address] [place] [id number] Phone Care Team Providers Care Body Mechanic Name Role Phone Segundo Tapia MD Primary Care Provider [phone] Encounter Details Date Type Department Care Team (Late st Contact Info) Description 04/26/2025 TCM in Dialysis Clinic [facility] [address] [id number] vKng Solano MD [address] [id number] Social History Tobacco Use Types [...] Progress Notes * Kvng Solano MD - 04/26/2025 12:00 AM EDT Patient: Milan Angeles : 1955 Note Type: Dialysis TCM Service Date: 04/26/2025 The patient was seen for a [id number] visit as part of Transitional Care Management services. Attending Section 8 Property Manager: KVNG SOLANO MD Dialysis Location: [facility] Schedule: Shift: 2 INTERACTIVE CONTACT Contact with the patient or caregiver was made or attempted within 2 business days of discharge - details in the medical record. HOSPITALIZATION SUMMARY Patient transitioned from: Hospital Patient transitioned to: Home Admit Date: 04/11/2025 Discharge Date: 04/20/2025 Discharged info reviewed: Followed-up on or reviewed need for pending tests/treatments as noted HOME MEDICATIONS Discharge med list reviewed - changes reconciled and discussed with patient. PHYSICAL EXAM Exam performed. Vital Signs Reviewed. CV - Blood pressure noted. No edema. EXT - No ulcers. CARE COORDINATION Post-discharge follow-up appointments reviewed with the patient. VISIT DIAGNOSES CPT Code 40027 - High complexity, seen 8-14 days post discharge or moderate complexity, seen [id number] days of discharge. N18.6 End stage renal disease Signed by: KVNG SOLANO MD on 04/26/2025 at 12:33:49 PM Transcribed by: KVNG SOLANO MD on 04/26/2025 at 12:33:49 PM documented in this encounter Plan of Treatment Not on file documented as of this encounter Visit Diagnoses Not on filedocumented in this encounter Care Teams Body Mechanic Relationship Specialty Start Date End Date Segundo Tapia MD [address] [place] [address] [id number] [place] [address] PCP - General Internal Medicine 11/21/20 documented as of this encounter
--- OUTSIDE RECORDS SUMMARY | 2025-06-01 21:04 | XMS_ITS | Encounter Summary ---
Author Organization [facility] Address [address] [place] [phone] Phone Care Team Providers Care Plate Painter Apprentice Name Role Phone Segundo Tapia MD Primary Care Provider [phone] Encounter Details Date Type Department Care Team (Late st Contact Info) Description 03/06/2025 TCM in Dialysis Clinic [facility] [address] [phone] Kvng Solano MD [address] [phone] Social History Tobacco Use Types [...] 03/06/2025 The patient was seen for a [id number] visit as part of Transitional Care Management services. Attending Track Template Maker: KVNG SOLANO MD Dialysis Location: [facility] Schedule: Shift: 2 INTERACTIVE [...] with the patient. VISIT DIAGNOSES CPT Code 86211 - High complexity, seen 8-14 days post discharge or moderate complexity, seen [id number] days of discharge. N18.6 End stage renal disease Signed by: KVNG SOLANO MD on 03/07/2025 at 07:36:01 AM Transcribed by: KVNG SOLANO MD on 03/07/2025 at 07:36:01 AM documented in this encounter Plan of Treatment Not on file documented as of this encounter Visit Diagnoses Not on filedocumented in this encounter Care Teams Plate Painter Apprentice Relationship Specialty Start Date End Date Segundo Tapia MD [address] [place] [address] [address] [place] PCP - General Internal Medicine 11/21/20 documented as of this encounter
--- OUTSIDE RECORDS SUMMARY | 2025-06-01 21:04 | XMS_ITS | Clinical Summary ---
Author Organization [facility] Address [address] [place] [phone] Phone Care Team Providers Care Plaster Helper Name Role Phone Segundo Tapia MD Primary Care Provider Allergies Active Allergy Reactions Criticality Noted Date [...] by mouth 1 (one) time each day 08/04/19 21 Active glipiZIDE (GLUCOTROL XL) 5 MG 24 hr tablet Take 10 mg by mouth 1 (one) time each day 07/03/20 20 Active amLODIPine (NORVASC) 5 MG tablet Take 5 mg by mouth 1 (one) time each day 08/26/19 21 Active metOLazone (ZAROXOLYN) 2.5 MG tablet Take 2.5 mg by mouth 1 (one) time each day 09/28/19 21 Active bisacodyl (DULCOLAX) 5 MG EC tablet Take 5 mg by mouth 1 (one) time each day if needed for constipation Do not crush, chew, or split. Active lisinopril 2.5 MG tablet 03/02/20 22 Active ergocalciferol 1.25 MG (59284 UT) capsule TAKE 1 CAPSULE BY MOUTH ONCE WEEKLY. 12 capsule 06/01/20 23 Active sevelamer carbonate (RENVELA) 800 MG tablet TAKE 2 TABLETS BY MOUTH DAILY IN THE MONRING AND 2 TABLETS AT NOON AND 2 TABLETS IN THE EVENING. TAKE WITH MEALS, SWALLOW TABLET WHOLE DO NOT CRUSH, BREAK, OR CHEW. 168 tablet 07/28/19 24 Active GNP Antacid Ultra Strength 1000 MG chewable tablet CHEW 1 TABLET BY MOUTH 3 TIMES DAILY WITH MEALS. 84 tablet 07/28/19 24 Active losartan (COZAAR) 50 MG tablet TAKE 1 TABLET BY MOUTH DAILY. 28 tablet 07/28/19 24 Active apixaban (Eliquis) 5 MG tablet TAKE 1 TABLET BY MOUTH TWICE DAILY 60 tablet 03/26/20 25 Active sertraline (ZOLOFT) 25 MG tablet TAKE 1 TABLET BY MOUTH ONCE DAILY 28 tablet 05/18/20 25 Active levothyroxine (SYNTHROID, LEVOTHROID) 75 MCG tablet TAKE 1 TABLET BY MOUTH ONCE DAILY 28 tablet 05/18/20 25 Active atorvastatin (LIPITOR) 40 MG tablet TAKE 1 TABLET BY MOUTH DAILY AT BEDTIME 28 tablet 05/18/20 25 Active omeprazole (PriLOSEC) [address] capsule TAKE (1) CAPSULE BY MOUTH DAILY 28 capsule 05/18/20 25 Active sertraline (ZOLOFT) 25 MG tablet TAKE 1 TABLET BY MOUTH ONCE DAILY 28 tablet 04/19/20 25 025 Discontinued levothyroxine (SYNTHROID, LEVOTHROID) 75 MCG tablet TAKE 1 TABLET BY MOUTH ONCE DAILY 28 tablet 04/19/20 25 025 Discontinued atorvastatin (LIPITOR) 40 MG tablet TAKE 1 TABLET BY MOUTH DAILY AT BEDTIME 28 tablet 04/19/20 25 025 Discontinued omeprazole (PriLOSEC) [address] capsule TAKE (1) CAPSULE BY MOUTH DAILY 28 capsule 04/19/20 25 025 Discontinued Active Problems Problem Noted Date Diagnosed Date Stage 5 chronic kidney disease 06/09/2022 Chronic kidney disease, stage 4 (severe) 022 Type 2 diabetes mellitus wit h diabetic [...] Encounters Date Type Department Care Team Description 05/22/2025 Treatment [facility] [address] [phone] Kvng Solano MD End stage renal disease; Dependence on renal dialysis 05/17/2025 Refill [facility] [address] [phone] Kvng Solano MD 05/08/2025 Treatment [facility] [address] [phone] Kvng Solano MD End stage renal disease; Dependence on renal dialysis 05/05/2025 Treatment [facility] [address] [phone] Kvng Solano MD End stage renal disease; Dependence on renal dialysis 04/26/2025 [facility] in Dialysis Clinic [facility] [address] [phone] Kvng Solano MD 04/26/2025 Treatment [facility] [address] [address] Kvng Solano MD End stage renal disease; Dependence on renal dialysis 04/21/2025 Treatment [facility] [address] [address] Kvng Solano MD End stage renal disease; Dependence on renal dialysis 04/18/2025 Refill [facility] [address] [phone] Kvng Solano MD 04/17/2025 Treatment [facility] [place] [address] [place] [phone] Kvng Solano MD End stage renal disease; Dependence on renal dialysis 03/23/2025 Refill [facility] [address] [place] [address] [address] [place] [phone] Kvng Solano MD 03/23/2025 Refill [facility] [address] [facility] [address] [place] [address] Tone Russo MD 03/14/2025 Orders Only [facility] [address] [place] [phone] Jarocho Ribeiro MD 03/06/2025 TCM in Dialysis Clinic [facility] [address] [place] [phone] Kvng Solano MD 03/06/2025 Treatment [facility] [address] [phone] Kvng Solano MD End stage renal disease; Dependence on renal dialysis 03/01/2025 Treatment [facility] [address] [phone] Kvng Solano MD End stage renal disease; [...] Influenza Vaccine (#1) 2025 Diabetes: Hemoglobin A1C 07/22/2025 025, 01/16/2025, 10/19/2024, Additional history exists Procedures Procedure Name Priority Date/Time Associated Diagnosis Comments LIH () Routine 05/31/2025 3:00 AM EST POTASSIUM Routine 05/31/2025 3:00 AM EST TRANSFERRIN SATURATION Routine 3:00 AM EST MAGNESIUM Routine 05/24/2025 3:00 AM EST PROTEIN, TOTAL, SERUM Routine 05/24/2025 3:00 AM EST ELECTROLYTE PANEL Routine 05/24/2025 3:0 0 AM EST LIH (HC) Routine 05/24/2025 3:00 AM EST GLUCOSE, RANDOM Routine 05/24/2025 3:00 AM EST LACTATE DEHYDROGENASE Routine 05/24/2025 3:00 AM EST BUN/CREATININE RATIO Routine 05/24/2025 3:00 AM EST CREATININE, SERUM Routine 05/24/2025 3:0 0 AM EST BILIRUBIN, TOTAL Routine 05/24/2025 3:00 AM EST AST Routine 05/24/2025 3:00 AM EST ALT Routine 05/24/2025 3:00 AM EST ALKALINE PHOSPHATASE Routine 05/24/2025 3:00 AM EST CALCIUM PHOSPHORUS PRODUCT, ADJUSTED (HC) Routine 05/24/2025 3:00 AM EST FERRITIN Routine 05/24/2025 3:00 AM EST CBC AND DIFFERENTIAL Routine 05/24/2025 3:00 AM EST KT/V NATURAL LOG, URR (HC) Routine 05/24/2025 3:00 AM EST POTASSIUM Routine 05/17/2025 3:00 AM EDT LIH (HC) Routine 05/17/2025 3:00 AM EDT LIH (HC) Routine 05/10/2025 3:00 AM EDT POTASSIUM Routine 05/10/2025 3:00 AM EDT HEMOGLOBIN Routine 05/03/2025 3:00 AM EDT LIH (HC) Routine 05/03/2025 3:00 AM EDT POTASSIUM Routine 05/03/2025 3:00 AM EDT LIH (HC) Routine 04/26/2025 3:00 AM EDT POTASSIUM Routine 04/26/2025 3:00 AM EDT LIH (HC) Routine 04/24/2025 3:00 AM EDT KT/V NATURAL LOG, URR () Routine 04/24/2025 3:00 AM EDT COLLECTION DATE (HC) Routine 04/21/2025 3:00 AM EDT HEMOGLOBIN A1C Routine 04/21/2025 3:00 AM EDT PROTEIN, TOTAL, SERUM Routine 04/21/2025 3:00 AM EDT TRANSFERRIN SATURATION Routine 3:00 AM EDT KT/V NATURAL LOG, URR () Routine 04/21/2025 3:00 AM EDT ELECTROLYTE PANEL Routine 04/21/2025 3:0 0 AM EDT LIPID PANEL Routine 04/21/2025 3:00 AM EDT MAGNESIUM Routine 04/21/2025 3:00 AM EDT LIH (HC) Routine 04/21/2025 3:00 AM EDT GLUCOSE, RANDOM Routine 04/21/2025 3:00 AM EDT LACTATE DEHYDROGENASE Routine 04/21/2025 3:00 AM EDT BUN/CREATININE RATIO Routine 04/21/2025 3:00 AM EDT CREATININE, SERUM Routine 04/21/2025 3:0 0 AM EDT BILIRUBIN, TOTAL Routine 04/21/2025 3:00 AM EDT AST Routine 04/21/2025 3:00 AM EDT ALT Routine 04/21/2025 3:00 AM EDT ALKALINE PHOSPHATASE Routine 04/21/2025 3:00 AM EDT CALCIUM PHOSPHORUS PRODUCT, ADJUSTED (HC) Routine 04/21/2025 3:00 AM EDT PTH, INTACT Routine 04/21/2025 3:00 AM EDT FERRITIN Routine 04/21/2025 3:00 AM EDT CBC AND DIFFERENTIAL Routine 04/21/2025 3:00 AM EDT HEMOGLOBIN Routine 04/05/2025 3:00 AM EDT FERRITIN [...] EDT HEMOGLOBIN Routine 03/08/2025 3:00 AM EDT from Last 3 Months Results * LIH (05/31/2025 3:00 AM EST) Only the most recent of9 resultswithin the time period is included. Lipemia Normal Normal [facility] Icterus Normal Normal [facility] Hemolysis Normal Normal [facility] 05/31/2025 3:00 AM EST 06/01/2025 12:29 PM EST Kvng Solano MD LAB HISTORICA [id number] RESULTS Final Result [facility] [address] [place] [address] * (ABNORMAL) Potassium (05/31/2025 3:00 AM EST) Only the most recent of5 resultswithin the time period is included. Potassium 6.3(H) 3.4 - 5.0 mEq/L [facility] 05/31/2025 3:00 AM EST 06/01/2025 12:29 PM EST us Kvng Solano MD LAB BLOOD ORDERABLES Final Result [facility] [address] [place] [address] * (ABNORMAL) Kt/V Natural Log, URR (05/24/2025 3:00 AM EST) Only the most recent of4 resultswithin the time period is included. Treatment Time 236 min [facility] Pre-Weight, lb 92.5 kg [facility] Post-Weight, lb 88.2 kg [facility] Ultrafiltration Rate 12 <=13 mL/kg/hr [facility] Comment: Recommend achieving Ultrafiltration Rate (UFR) <=10 mL/kg/hr References: Kathryn BAPTISTE et al. Kidney Int. 2010; 79(2):250-257 BUN 52(H) 7 - 25 mg/dL [facility] BUN Post Dialysis 14 7 - 25 mg/dL [facility] UREA REDUCTION RATIO (%) 73 >=65 % [facility] Kt/V Natural Log 1.59 >=1.2 [facility] 05/24/2025 3:00 AM EST 05/25/2025 3:26 PM EST Kvng Solano MD LAB HISTORICA [id number] RESULTS Final Result Performing Organization Address [facility] Co de Phone Number [facility] [address] [place] [address] * (ABNORMAL) Calcium Phosphorus Product, Adjusted (05/24/2025 3:00 AM EST) Only the most recent of3 resultswithin the time period is included. Albumin 4.9 3.6 - 5.4 g/dL [facility] Calcium 9.5 8.6 - 10.3 mg/dL [facility] Phosphorus, Serum 7.4(H) 2.5 - 5.0 mg/dL [facility] Ca*PO4 70.3(A) <55.0 mg2/dL2 [facility] Calcium, Adjusted Total 9.5 8.6 - 10.3 mg/dL [facility] CA*PO4 CORRCTD 70.3(A) <55.0 mg2/dL2 [facility] 05/24/2025 3:00 AM EST 05/25/2025 3:32 PM EST us Kvng Solano MD LAB HISTORICA [id number] RESULTS Final Result Performing Organization Address [facility] de Phone Number [facility] [address] [place] [address] * BUN/CREATININE RATIO (05/24/2025 3:00 AM EST) Only the most recent of3 resultswithin the time period is included. BUN/Creatinine Ratio 5.0 <=23.0 [facility] 05/24/2025 3:00 AM EST 05/25/2025 3:32 PM EST us Kvng Solano MD LAB HISTORICA [id number] RESULTS Final Result Performing Organization Address [facility] de Phone Number [facility] [address] [place] [address] * (ABNORMAL) TSAT (05/24/2025 3:00 AM EST) Only the most recent of3 resultswithin the time period is included. Iron 63(L) 65 - 175 ug/dL [facility] Transferrin 188(L) 215 - 365 mg/dL [facility] TIBC 263 211 - 406 ug/dL [facility] Iron Saturation (TSat) 24 22 - 52 % [facility] 05/24/2025 3:00 AM EST 05/25/2025 3:32 PM EST Kvng Solano MD LAB BLOOD ORDERABLES Final Result Performing Organization Address [facility] de Phone Number [facility] [address] [place] [address] * (ABNORMAL) CBC and Differential (05/24/2025 3:00 AM EST) Only the most recent of3 resultswithin the time period is included. DIFFERENTIAL MANUAL, 2 Not Indicated [facility] White Blood Cells 4.9 4.2 - 9.1 K/uL [facility] RBC 3.84(L) 4.63 - 6.08 M/uL [facility] Hgb 13.0(L) 13.7 - 17.5 g/dL [facility] Hemoglobin x 3 39.0(L) 41.1 - 52.5 g/dL [facility] Hematocrit 39.9(L) 40.1 - 51.0 % [facility] MCV 103.9(H) 79.0 - 92.2 fL [facility] MCH 33.9(H) 25.7 - 32.2 pg [facility] MCHC 32.6 32.3 - 36.5 g/dL [facility] RDW 16.3(H) 11.6 - 14.4 % [facility] Platelets 190 163 - 337 K/uL [facility] MPV 11.3 9.1 - 13.0 fL [facility] Neutrophils Relative 65.1 34.0 - 67.9 % [facility] Lymphocytes Relative 15.3(L) 21.8 - 53.1 % [facility] Monocytes 14.1(H) 5.3 - 12.2 % [facility] Eosinophils Relative 3.7 0.8 - 7.0 % [facility] Basophils Relative 1.4(H) 0.2 - 1.2 % [facility] Immature Granulocytes 0.4 0.0 - 1.0 % [facility] 05/24/2025 3:00 AM EST 05/25/2025 3:47 PM EST Kvng Solano MD LAB BLOOD ORDERABLES Final Result Performing Organization Address [facility] Co de Phone Number [facility] [address] [place] [address] * ALT (05/24/2025 3:00 AM EST) Only the most recent of3 resultswithin the time period is included. ALT (SGPT) 12 10 - 49 U/L [facility] 05/24/2025 3:00 AM EST 05/25/2025 3:32 PM EST us Kvng Solano MD LAB BLOOD ORDERABLES Final Result Performing Organization Address [facility] Co de Phone Number [facility] [address] [place] [address] * AST (05/24/2025 3:00 AM EST) Only the most recent of3 resultswithin the time period is included. AST (SGOT) 15 <34 U/L [facility] 05/24/2025 3:00 AM EST 05/25/2025 3:32 PM EST us Kvng Solano MD LAB BLOOD ORDERABLES Final Result Performing Organization Address [facility] de Phone Number [facility] [address] [place] [address] * Protein, total (05/24/2025 3:00 AM EST) Only the most recent of3 resultswithin the time period is included. Total Protein 8.2 6.4 - 8.9 g/dL [facility] 05/24/2025 3:00 AM EST 05/25/2025 3:32 PM EST us Kvng Solano MD LAB BLOOD ORDERABLES Final Result Performing Organization Address [facility] de Phone Number [facility] [address] [place] [address] * Alkaline phosphatase (05/24/2025 3:00 AM EST) Only the most recent of3 resultswithin the time period is included. Alkaline Phosphatase 79 46 - 116 U/L [facility] 05/24/2025 3:00 AM EST 05/25/2025 3:32 PM EST us Kvng Solano MD LAB BLOOD ORDERABLES Final Result Performing Organization Address [facility] Co de Phone Number [facility] [address] [place] [address] * Magnesium (05/24/2025 3:00 AM EST) Only the most recent of3 resultswithin the time period is included. Magnesium 2.1 1.9 - 2.7 mg/dL [facility] 05/24/2025 3:00 AM EST 05/25/2025 3:32 PM EST us Kvng Solano MD LAB BLOOD ORDERABLES Final Result Performing Organization Address [facility] Co de Phone Number [facility] [address] [place] [address] * (ABNORMAL) Lactate dehydrogenase (05/24/2025 3:00 AM EST) Only the most recent of3 resultswithin the time period is included. LDH 295(H) 120 - 246 U/L [facility] 05/24/2025 3:00 AM EST 05/25/2025 3:32 PM EST us Kvng Solano MD LAB BLOOD ORDERABLES Final Result Performing Organization Address [facility] de Phone Number [facility] [address] [place] [address] * (ABNORMAL) Glucose, random (05/24/2025 3:00 AM EST) Only the most recent of3 resultswithin the time period is included. Glucose 166(H) 70 - 99 mg/dL [facility] Comment: ADA guidelines outline the following fasting glucose ranges: Normal: <100 Prediabetes: 100-125 Diabetes: >125 05/24/2025 3:00 AM EST 05/25/2025 3:32 PM EST us Kvng Solano MD LAB BLOOD ORDERABLES Final Result Performing Organization Address [facility] de Phone Number [facility] [address] [place] [address] * (ABNORMAL) Ferritin (05/24/2025 3:00 AM EST) Only the most recent of3 resultswithin the time period is included. Ferritin 1,374(H) 22 - 322 ng/mL [facility] 05/24/2025 3:00 AM EST 05/25/2025 3:32 PM EST us Kvng Solano MD LAB BLOOD ORDERABLES Final Result Performing Organization Address [facility] de Phone Number [facility] [address] [place] [address] * (ABNORMAL) Creatinine, serum (05/24/2025 3:00 AM EST) Only the most recent of3 resultswithin the time period is included. Creatinine 10.47(H) 0.70 - 1.30 mg/dL [facility] 05/24/2025 3:00 AM EST 05/25/2025 3:32 PM EST Kvng Solano MD LAB BLOOD ORDERABLES Final Result Performing Organization Address [facility] de Phone Number [facility] [address] [place] [address] * Bilirubin, total (05/24/2025 3:00 AM EST) Only the most recent of3 resultswithin the time period is included. Total Bilirubin 0.3 0.3 - 1.2 mg/dL [facility] 05/24/2025 3:00 AM EST 05/25/2025 3:32 PM EST Kvng Solano MD LAB BLOOD ORDERABLES Final Result Performing Organization Address [facility] de Phone Number [facility] [address] [place] [address] * (ABNORMAL) Electrolyte panel (05/24/2025 3:00 AM EST) Only the most recent of4 resultswithin the time period is included. Sodium 135(L) 136 - 145 mEq/L [facility] Potassium 5.4(H) 3.4 - 5.0 mEq/L [facility] Chloride 91(L) 98 - 107 mEq/L [facility] Bicarbonate (CO2) 24 21 - 31 mEq/L [facility] Anion Gap 20(H) 3 - 14 mEq/L [facility] 05/24/2025 3:00 AM EST 05/25/2025 3:32 PM EST Kvng Solano MD LAB BLOOD ORDERABLES Final Result Performing Organization Address [facility] Co de Phone Number [facility] [address] [place] [address] * (ABNORMAL) Hemoglobin (05/03/2025 3:00 AM EDT) Only the most recent of3 resultswithin the time period is included. Hgb 10.8(L) 13.7 - 17.5 g/dL [facility] Hemoglobin x 3 32.4(L) 41.1 - 52.5 g/dL [facility] 05/03/2025 3:00 AM EDT 05/04/2025 12:49 PM EDT us Kvng Solano MD LAB BLOOD ORDERABLES Final Result Performing Organization Address [facility] de Phone Number [facility] [address] [place] [address] * Collection Date (04/21/2025 3:00 AM EDT) Collection Date See Comment [facility] Comment: Patient sample received may exceed specimen stability, based on the collection date electronically provided. When reviewing patient results, verify collection information and consider specimen stability before acting on any critical or panic results. 04/21/2025 3:00 AM EDT Kvng Solano MD LAB HISTORICA [id number] RESULTS Final Result Performing Organization Address [facility] Co de Phone Number [facility] [address] [place] [address] * (ABNORMAL) PTH, Intact (04/21/2025 3:00 AM EDT) PTH, Intact 150(L) 160 - 721 pg/mL [facility] Comment: Suggested (KDIGO) ESRD maintenance range is two to nine times the upper normal limit (80.1 pg/mL) for the laboratory. 04/21/2025 3:00 AM EDT 04/23/2025 1:06 PM EDT Kvng Solano MD LAB BLOOD ORDERABLES Final Result Performing Organization Address [facility] de Phone Number [facility] [address] [place] [address] * Hemoglobin A1c (04/21/2025 3:00 AM EDT) Pathologist [facility] Hemoglobin A1C 5.0 <5.7 % [facility] Comment: Methodology: Ion-exchange high-performance liquid chromatography (HPLC) Normal: <5.7% Prediabetes: 5.7-6.4% Diabetes: >6.4% Diabetic Glucose Control Evaluation: Therapeutic action suggested at >8.0% ADA recommends a glycemic goal of <7.0% 04/21/2025 3:00 AM EDT 04/23/2025 1:14 PM EDT Kvng Solano MD LAB BLOOD ORDERABLES Final Result Performing Organization Address [facility] de Phone Number [facility] [address] [place] [address] * (ABNORMAL) Lipid panel (04/21/2025 3:00 AM EDT) Cholesterol 110 mg/dL [facility] Comment: Optimal: <200 Borderline: 200-239 High Risk: >239 Triglycerides 118 mg/dL [facility] Comment: Optimal: <150 Borderline: 150-200 High Risk: >200 HDL 37(L) mg/dL [facility] Comment: Optimal: >59 Borderline: 40-59 High Risk: <40 LDL-Calc 49 mg/dL [facility] Comment: Optimal: <100 Borderline: 100-159 High Risk: >159 VLDL Cholesterol Bravo 24 mg/dL [facility] Comment: Optimal: <30 Borderline: 30-40 High Risk: >40 Chol/HDL Ratio 3.0 [facility] Comment: Optimal: <3.3 High Risk: >6.2 04/21/2025 3:00 AM EDT 04/23/2025 1:06 PM EDT us Kvng Solano MD LAB BLOOD ORDERABLES Final Result [facility] [address] [place] [address] from Last 3 Months Insurance [facility] ([id number]) JORDAN CURRIE [phone] Care Teams Plaster Helper Relationship Specialty Start Date End Date Segundo Tapia MD [address] [place] [address] DRIVE [id number] [place] PCP - General Internal Medicine 11/21/20
== END 2025-06-01 12:35 | disposition home or self-care (01) ==
LOC: HO.WFDLDS 12:34
PROVIDERS: Internal Medicine Gastroenterology; PCP Family Medicine; Visit Provider Family Medicine
DX: Z00.00 Encounter for general adult medical examination without abnormal findings (principal); I13.2 Hypertensive heart and chronic kidney disease with heart failure and with stage 5 chronic kidney disease, or end stage renal disease; I50.9 Heart failure, unspecified; N18.6 End stage renal disease; E03.9 Hypothyroidism, unspecified; R06.09 Other forms of dyspnea; E78.5 Hyperlipidemia, unspecified; D63.1 Anemia in chronic kidney disease
CPT/HCPCS: 36415; 80053; 82607; 82668; 82746; 83540; 83721; 83880; 84439; 84443; 84480; 85025; 99212

== ENCOUNTER 2025-06-01 12:34 | Outpatient (AMB) | payer OTHER, SELFPAY ==
--- NOTE | 2025-06-01 13:08 | A.OFFPC_ITS ---
Vital Signs 06/01/25 13:15 Height 5 ft 11 in Weight 200 lb 6 oz BMI 27.9 BP 122/72 Blood Pressure Location Rt brachial Position Sitting Respiration 17 Pulse 74 Pulse Source Pulse Oximeter Temp 97.9 F Temp Source Temporal Artery Scan Pulse Oximetry (%) 94 Oxygen Delivery Method Room Air Intake Visit Reasons: f/u lipids, HTN, labs Intake Note: Milan presents in the office today for a follow up to her cholesterol, hypertension. Patient did not get labs done. Allergies Penicillins Allergy (Severe, Verified 06/01/25 13:14) Hives Medication List - Last Reconciled 06/01/25 by Alberto Melo MD aspirin 81 mg PO DAILY atorvastatin 40 mg PO BEDTIME calcium carbonate (Antacid Ultra Strength) 400 mg PO TID cholecalciferol (vitamin D3) 50 mcg PO DAILY levothyroxine 75 mcg PO DAILY@0600 midodrine 10 mg PO TID oxycodone 5 mg PO Q6H PRN pantoprazole 40 mg PO BID@0630,1630 sertraline 25 mg PO DAILY sevelamer carbonate 1,600 mg PO TID sodium zirconium cyclosilicate (Lokelma) 5 grams PO MOWEFR Tobacco use date assessed: 06/01/25 Dental Screening Dental Screen Date: 06/01/25 Did you have a dental visit in the last 12 months?: Yes Did you have a dental problem in the last 6 months where you did not have access to dental care?: No Was dental information given to patient?: Patient declined HPI f/u lipids, HTN, labs HPI Details 69 y/o male presents to f/u lipids, HTN, labs. No recent labs to review. BP today 122/72, 74p. Pt notes breathing has improved. 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 Social History (Updated 06/01/25 @ 13:15 by Lara Madera CMA) Household Members: Other Housing: Assisted Living Facility Housing Other:: [facility] Do you presently have visiting nurse or other home services: Yes Alcohol intake: former Comment: rings appropriately Patient Tobacco Use Status: Former Tobacco user Tobacco use type: Cigarette Years Smoked: 30 e-Cigarette/Vaping Use: Never Used Second Hand Smoke Exposure: No Advance Directives Date on File: 07/30/23 service: No Current occupational status: unemployed and disabled Cognitive needs: No Hearing needs: No Vision needs: No Questionnaire Thrive Questionnaire Date Thrive assessed: 09/22/24 I am a: Patient What is your living situation today?: I have a steady place to live Within the past 12 months, did the food you bought not last and you didn't have the money to get more?: Never true Within the past 12 months, did you worry whether your food would run out before you got money to buy more?: Never true Do you have trouble paying for medicines?: No Do you have trouble getting transportation to medical appointments?: No Do you have trouble paying your heating and electricity bill?: No Do you have trouble taking care of your child, family member or friend?: No Do you have trouble with day-to-day activities such as bathing, preparing meals, shopping, managing finances, etc.?: No Are you currently unemployed and looking for a job?: I choose not to answer this question Are you interested in more education?: I choose not to answer this question Please select the resources that you would like help with: None Currently or been in a relationship where the following occur: No concerns reported THRIVE Score: 0 MESFIN-7 AMB Questionnaire MESFIN-7 Date MESFIN - 7 assessed: 09/22/24 Source: Developed by Drs. Roland Hdadad, Liss Ingram, Dieudonne Santizo and colleagues, with an educational sukumar from [employer]. Review of Systems Const Denies chills, Denies fatigue, Denies fever(s), Denies headache(s) and Denies weakness ENT Denies dizziness and Denies headache(s) Card Denies dyspnea Resp Denies cough, Denies dyspnea, Denies wheezing and Denies other (shortness of breath) Musc Denies numbness and Denies tingling Neuro Denies dizziness, Denies headache(s), Denies numbness, Denies tingling and Denies weakness Psych Denies anxiety and Denies depression Endo Denies fatigue Aller/Immun Denies wheezing Physical exam (Primary Care) Vital Signs: Last Vital Signs Temp 97.9 F 06/01/25 13:15 Pulse 74 06/01/25 13:15 Resp 17 06/01/25 13:15 BP 122/72 06/01/25 13:15 Pulse Ox 94 06/01/25 13:15 Oxygen Delivery Method Room Air 06/01/25 13:15 BMI result Body Mass Index 27.9 Tobacco/Smoking Status: Tobacco use Status Tobacco use date assessed 06/01/25 06/01/25 13:18 Patient Tobacco Use Status Former Tobacco user 06/01/25 13:15 Tobacco use type Cigarette 06/01/25 13:15 e-Cigarette/Vaping Use Never Used 06/01/25 13:15 Thrive Assessment: Date of Thrive Assessment Date Thrive assessed 09/22/24 06/01/25 13:10 Currently or been in a relationship where the following occur: No concerns reported Const General: well developed; No acute distress Nutritional Appearance: well nourished Orientation/consciousness: patient oriented [facility]3 [facility]: Yes normocephalic and Yes atraumatic Eyes General: appearance normal, both eyes and all related structures Pupils: Equal, round and reactive pupils present EOM: EOMs intact bilaterally Resp Effort & Inspection: normal respiratory effort Neuro General: patient oriented x3 and gait normal Cranial nerves: Yes Equal, round and reactive pupils present Psych Affect: normal affect Coding Level of Care Code Est Pt Level 3 (00019) Diagnoses Hypertension I10 Anemia D64.9 Assessment & Plan Assessment & Plan (1) Hypertension: Code(s): I10 - Essential (primary) hypertension Category: Medical Plan: Blood pressure is fine without antihypertensives Will continue to monitor (2) Anemia: Code(s): D64.9 - Anemia, unspecified Category: Medical Plan: Recent GI bleeding requiring transfusions Patient has not gotten complete blood count repeated and will do so today. He is breathing easily No pallor and no dyspnea. Heart rate is normal. Oxygen saturation is a little low Check labs including CBC, levels Orders: Orders Complete Blood Count Auto Diff Today D64.9 - Anemia, unspecified, Z00.00 - Encounter for general adult medical examination without abnormal findings IRON PROFILE Today D64.9 - Anemia, unspecified Comprehensive Met. Panel Today D64.9 - Anemia, unspecified NT Pro B Type Natriuretic Pept Today I50.9 - Heart failure, unspecified, R06.09 - Other forms of dyspnea LDL Cholesterol Direct Today E78.5 - Hyperlipidemia, unspecified, Z00.00 - Encounter for general adult medical examination without abnormal findings
[2025-06-01 13:15] VITALS: BP 122/72; PULSE 74; RESP 17; TEMP 36.6; O2SAT 94; BMI 27.9
== END 2025-06-01 13:51 | disposition home or self-care (01) ==
LOC: HO.HMCFM 12:35
PROVIDERS: PCP Family Medicine; Visit Provider Family Medicine
DX: I10 Essential (primary) hypertension (principal); D64.9 Anemia, unspecified